=== PATIENT | female | born 1960 | race Caucasian/White ===

== ENCOUNTER → 2017-07-28 10:44 | Outpatient (CLI) | payer BC, SELFPAY ==
[2017-07-28 12:10] LABS: Absolute Lymphocyte Count 2.89 X10^3/ul (0.83-4.51); Absolute Neutrophil Count 3.8 X10^3/uL (2.0-7.7); Basophil# 0.03 X10^3/uL; Basophil% 0.4 % (0-1); Eosinophil# 0.32 X10^3/uL; Eosinophils% 3.9 % (0-5); Hematocrit 43.2 % (37-47); Hemoglobin 14.6 g/dl (12.0-15.0); Lymphocyte # 2.89 X10^3/ul (4.0); Lymphocyte % 35.4 % (19-41); Mean Corp Hgb Conc 33.8 g/gl (32-36); Mean Corpuscular Hgb 30.7 pg (27.0-32.0); Mean Corpuscular Volume 90.8 fL (81-99); Mean Platelet Vol. 10.2 fl (6.2-12.0); Monocyte# 1.11 X10^3/uL; Monocyte% 13.6 % (0-10); Neutrophil # 3.79 X10^3/uL (2.7-7.7); Neutrophil % 46.5 % (47-70); Platelet Count 281 K/mm3 (150-450); RBC Distribution Width CV 12.4 % (11.6-14.6); RBC Distribution Width SD 40.3 fl (35.1-43.9); Red Blood Count 4.76 M/mm3 (4.2-5.4); White Blood Count 8.2 K/mm3 (4.4-11.0)
[2017-07-28 12:17] LABS: POSITIVE COUNT NO; POSITIVE DIFFERENTIAL NO; POSITIVE MORPHOLOGY NO
[2017-07-28 12:18] LABS: ALB/GLOB Ratio 1.1 RATIO (0.9-2.4); AST(SGOT) 32 U/L (15-37); Alanine Aminotransfer ALT/SGPT 47 U/L (13-56); Albumin, Serum 3.8 g/dL (3.2-5.0); Alkaline Phosphatase 69 U/L (45-117); Anion Gap 7 (5-15); BUN 20 mg/dL (7-18); BUN/Creat Ratio 17.4 RATIO (10-20); Calcium,Total 8.9 mg/dL (8.5-10.1); Chloride 105 mmol/L (98-107); Creatinine, Serum 1.15 mg/dL (0.55-1.02); EST Glomerular Filtration Rate 51 mL/min (>60); Est Glom Filt Rate - Afr Amer 62 mL/min (>60); Globulin 3.4 g/dL (2.2-4.2); Glucose 112 mg/dL (74-106); Potassium 3.5 mmol/L (3.5-5.1); Protein, Total 7.2 g/dL (6.4-8.2); Sodium Level 144 mmol/L (136-145)
[2017-08-01 03:07] LABS: QNTFERON TB Ag Minus Nil Value 0.02 IU/mL (.); QNTFERON TB Ag Value 0.03 IU/mL (.); QNTFERON TB Mitogen Value > 10.00 IU/mL (.); QNTFERON TB Nil Value 0.01 IU/mL (.)
[2017-08-03 09:09] LABS: QNTIFERON TB Gold Negative (Negative)
== END ==
PROVIDERS: Family Provider Family Medicine; PCP Family Medicine; Visit Provider Internal Medicine Rheumatology
DX: M06.09 Rheumatoid arthritis without rheumatoid factor, multiple sites (principal); M79.7 Fibromyalgia; R76.8 Other specified abnormal immunological findings in serum; K21.0 Gastro-esophageal reflux disease with esophagitis; I10 Essential (primary) hypertension; E03.9 Hypothyroidism, unspecified; Z79.899 Other long term (current) drug therapy
CPT/HCPCS: 36415; 80053; 85025; 86480

== ENCOUNTER → 2017-10-02 09:24 | Outpatient (CLI) | payer BC, SELFPAY ==
--- NOTE | 2017-10-02 09:36 | MRI_ITS ---
STUDY: MRI LUMBAR SPINE WITHOUT CONTRAST REASON FOR EXAM: Female, 56 years old. low back pain radiating into legs. TECHNIQUE: Standardized fat and water weighted pulse sequences were obtained in the sagittal and axial planes. COMPARISON: April 08, 2014 FINDINGS: T12-L1: There is moderate disc space narrowing and endplate spondylosis. There is a mild disc bulge without significant central canal or foraminal stenosis. Findings are stable since the prior examination Normal lumbar lordosis. There is scoliosis. Normal conus medullaris that terminates at the L1 L1-2: There is minimal disc space narrowing and endplate spondylosis. There is no significant disc herniation, spinal canal or foramina stenosis. L2-3: There is severe disc space narrowing and endplate spondylosis. There is disc osteophyte complex asymmetric to the right with moderate right foraminal stenosis. There is no significant central canal or left foraminal stenosis. Findings are stable since prior examination L3-4: There is severe disc space narrowing and endplate spondylosis there is a disc bulge asymmetric to the left along with facet arthropathy with severe left foraminal stenosis. There is mild central canal and mild right foraminal stenosis. Findings are stable since the prior examination L4-5: There is increased mild disc space narrowing and endplate spondylosis. There is increased disc bulging and facet arthropathy asymmetric to the left with moderate left foraminal stenosis. There is no significant central canal or right foraminal stenosis. L5-S1: Normal endplates. Normal disc height, hydration and morphology. Normal bilateral facet joints. Normal central canal and bilateral lateral recesses. Normal bilateral intervertebral neural foramina. There is a left paraspinal muscular atrophy. Normal visualized paraspinous soft tissue structures. MRI/Spine Lumbar (Routine) IMPRESSION: L4/L5: Increased Moderate left foraminal stenosis. L3/L4: Severe left foraminal stenosis. L2/L3: Moderate right foraminal stenosis. Electronically Signed: Walt Espitia MD at 9:02 EDT Tel , Service support ,
--- NOTE | 2017-10-02 09:36 | MRI_ITS ---
STUDY: MRI CERVICAL SPINE WITHOUT CONTRAST REASON FOR EXAM: Female, 56 years old. PAIN IN NECK AND BILATERAL ARMS X MANY YEARS. TECHNIQUE: Standardized fat and water weighted pulse sequences were obtained in the sagittal and axial planes. COMPARISON: April 08, 2014 FINDINGS: Normal foramen magnum and brainstem-cervical cord junction. Normal craniovertebral junction. Normal anterior atlantoaxial articulation. Normal odontoid process. There is straightening of the normal cervical lordosis. C2-3: Normal endplates. Normal disc height, signal and morphology. Normal central canal and intervertebral neural foramina. C3-4: There is minimal disc space narrowing and endplate spondylosis. There is no significant disc herniation, spinal canal or foramina stenosis. C4-5: There is minimal disc space narrowing and endplate spondylosis. There is no significant disc herniation, spinal canal or foramina stenosis. C5-6: There is moderate disc space narrowing and endplate spondylosis. There is slightly decreased mild disc osteophyte complex with moderate central canal stenosis. There is uncovertebral arthropathy with stable severe right and moderate left foraminal stenosis. C6-7: There is moderate disc space narrowing and endplate spondylosis. There is a stable moderate discussed if a complex and moderate central canal stenosis. There is uncovertebral arthropathy with moderate right foraminal and severe left foraminal stenosis. C7-T1: There is minimal disc space narrowing and endplate spondylosis. There is no significant disc herniation, spinal canal or foramina stenosis. Normal cervical cord. Normal visualized soft tissue structures. MRI/Spine Cervical (Routine) IMPRESSION: Stable examination. C5/C6: Moderate central canal stenosis. Severe right foraminal stenosis. C6/C7: Moderate central canal stenosis. Severe left foraminal stenosis. Electronically Signed: Walt Espitia MD at 9:02 EDT Tel , Service support ,
== END ==
PROVIDERS: Family Provider Family Medicine; PCP Family Medicine; Visit Provider Anesthesiology Pain Medicine
DX: M54.9 Dorsalgia, unspecified (principal); M79.603 Pain in arm, unspecified
CPT/HCPCS: 72141; 72148

== ENCOUNTER → 2017-10-15 12:25 | Outpatient (CLI) | payer BC, SELFPAY ==
[2017-10-15 13:06] LABS: Absolute Lymphocyte Count 1.54 X10^3/ul (0.83-4.51); Absolute Neutrophil Count 7.9 X10^3/uL (2.0-7.7); Basophil# 0.04 X10^3/uL; Basophil% 0.4 % (0-1); Eosinophil# 0.31 X10^3/uL; Eosinophils% 2.9 % (0-5); Hematocrit 41.2 % (37-47); Lymphocyte # 1.54 X10^3/ul (4.0); Lymphocyte % 14.3 % (19-41); Mean Corpuscular Hgb 30.9 pg (27.0-32.0); Mean Corpuscular Volume 90.9 fL (81-99); Mean Platelet Vol. 9.8 fl (6.2-12.0); Monocyte# 0.93 X10^3/uL; Monocyte% 8.7 % (0-10); Neutrophil % 73.5 % (47-70); Platelet Count 274 K/mm3 (150-450); RBC Distribution Width CV 12.1 % (11.6-14.6); RBC Distribution Width SD 39.8 fl (35.1-43.9); Red Blood Count 4.53 M/mm3 (4.2-5.4); White Blood Count 10.7 K/mm3 (4.4-11.0)
[2017-10-15 13:07] LABS: POSITIVE COUNT NO; POSITIVE DIFFERENTIAL NO; POSITIVE MORPHOLOGY NO
[2017-10-15 13:20] LABS: ALB/GLOB Ratio 1.1 RATIO (0.9-2.4); AST(SGOT) 27 U/L (15-37); Alanine Aminotransfer ALT/SGPT 37 U/L (13-56); Albumin, Serum 3.5 g/dL (3.2-5.0); Alkaline Phosphatase 65 U/L (45-117); Anion Gap 10 (5-15); BUN 19 mg/dL (7-18); BUN/Creat Ratio 18.6 RATIO (10-20); Calcium,Total 8.9 mg/dL (8.5-10.1); Chloride 107 mmol/L (98-107); Creatinine, Serum 1.02 mg/dL (0.55-1.02); EST Glomerular Filtration Rate 59 mL/min (>60); Est Glom Filt Rate - Afr Amer 71 mL/min (>60); Globulin 3.3 g/dL (2.2-4.2); Glucose 85 mg/dL (74-106); Potassium 3.8 mmol/L (3.5-5.1); Protein, Total 6.8 g/dL (6.4-8.2); Sodium Level 144 mmol/L (136-145)
== END ==
PROVIDERS: Family Provider Family Medicine; PCP Family Medicine; Visit Provider Internal Medicine Rheumatology
DX: M06.09 Rheumatoid arthritis without rheumatoid factor, multiple sites (principal); M79.7 Fibromyalgia; R76.8 Other specified abnormal immunological findings in serum; K21.0 Gastro-esophageal reflux disease with esophagitis; I10 Essential (primary) hypertension; E03.9 Hypothyroidism, unspecified; Z79.899 Other long term (current) drug therapy
CPT/HCPCS: 36415; 80053; 85025

== ENCOUNTER → 2017-11-12 11:43 | Outpatient (CLI) | payer BC, SELFPAY ==
[2017-11-12 14:38] LABS: Amphetamine Urine VISTA NEGATIVE (<1000 ng/mL); Barbiturate Urine VISTA NEGATIVE (< 200 ng/mL); Benzodiazepine Urine VISTA NEGATIVE (< 200 ng/mL); Cocaine Urine VISTA NEGATIVE (< 300 ng/mL); Ecstacy Urine VISTA NEGATIVE (< 500 ng/mL); Methadone Urine VISTA NEGATIVE (< 300 ng/mL); PCP Urine VISTA NEGATIVE (< 25 ng/mL); THC Urine VISTA NEGATIVE (< 50 ng/mL); Vista UDS pH Range 6
== END ==
PROVIDERS: Family Provider Family Medicine; PCP Family Medicine; Visit Provider Anesthesiology Pain Medicine
DX: F11.20 Opioid dependence, uncomplicated (principal)
CPT/HCPCS: 80307

== ENCOUNTER → 2018-01-08 13:02 | Outpatient (CLI) | payer BC, SELFPAY ==
[2018-01-08 14:43] LABS: Absolute Lymphocyte Count 2.16 X10^3/ul (0.83-4.51); Absolute Neutrophil Count 2.9 X10^3/uL (2.0-7.7); Basophil# 0.05 X10^3/uL; Basophil% 0.8 % (0-1); Eosinophil# 0.35 X10^3/uL; Eosinophils% 5.5 % (0-5); Hematocrit 41.5 % (37-47); Hemoglobin 13.6 g/dl (12.0-15.0); Lymphocyte # 2.16 X10^3/ul (4.0); Lymphocyte % 33.9 % (19-41); Mean Corp Hgb Conc 32.8 g/gl (32-36); Mean Corpuscular Hgb 29.9 pg (27.0-32.0); Mean Corpuscular Volume 91.2 fL (81-99); Mean Platelet Vol. 11.2 fl (6.2-12.0); Monocyte# 0.87 X10^3/uL; Monocyte% 13.6 % (0-10); Neutrophil # 2.93 X10^3/uL (2.7-7.7); Neutrophil % 45.9 % (47-70); Platelet Count 257 K/mm3 (150-450); RBC Distribution Width CV 12.2 % (11.6-14.6); RBC Distribution Width SD 40.1 fl (35.1-43.9); Red Blood Count 4.55 M/mm3 (4.2-5.4); White Blood Count 6.4 K/mm3 (4.4-11.0)
[2018-01-08 14:44] LABS: POSITIVE COUNT NO; POSITIVE DIFFERENTIAL NO; POSITIVE MORPHOLOGY NO
[2018-01-08 16:31] LABS: ALB/GLOB Ratio 1.2 RATIO (0.9-2.4); AST(SGOT) 22 U/L (15-37); Alanine Aminotransfer ALT/SGPT 34 U/L (13-56); Albumin, Serum 3.5 g/dL (3.2-5.0); Alkaline Phosphatase 64 U/L (45-117); Anion Gap 8 (5-15); BUN 21 mg/dL (7-18); BUN/Creat Ratio 17.5 RATIO (10-20); Calcium,Total 8.7 mg/dL (8.5-10.1); Chloride 107 mmol/L (98-107); EST Glomerular Filtration Rate 49 mL/min (>60); Est Glom Filt Rate - Afr Amer 59 mL/min (>60); Glucose 82 mg/dL (74-106); Potassium 3.5 mmol/L (3.5-5.1); Protein, Total 6.5 g/dL (6.4-8.2); Sodium Level 144 mmol/L (136-145)
== END ==
PROVIDERS: Family Provider Family Medicine; PCP Family Medicine; Referring Provider Internal Medicine Rheumatology; Visit Provider Internal Medicine Rheumatology
DX: M06.09 Rheumatoid arthritis without rheumatoid factor, multiple sites (principal); M79.7 Fibromyalgia; R76.8 Other specified abnormal immunological findings in serum; K21.0 Gastro-esophageal reflux disease with esophagitis; I10 Essential (primary) hypertension; E03.9 Hypothyroidism, unspecified; Z79.899 Other long term (current) drug therapy
CPT/HCPCS: 36415; 80053; 85025

== ENCOUNTER → 2018-02-16 12:21 | Outpatient (CLI) | payer BC, SELFPAY ==
--- NOTE | 2018-02-16 12:23 | RAD_ITS ---
STUDY: X-RAY - LUMBOSACRAL SPINE REASON FOR EXAM: Female, 57 years old. Back pain TECHNIQUE: 6 view(s) of the lumbosacral spine were obtained. COMPARISON: None FINDINGS: Levoscoliosis of the lumbar spine. Preserved lumbar lordosis. Mild kyphosis across the thoracolumbar junction. Disc narrowing at T12-L1, L2-L3, L3-L4. Vertebral body height and alignment normal in the neutral position. Evidence of mild low lumbar facet arthropathy. Extension: No evidence of subluxation. Flexion: No evidence of subluxation. RAD/L/S Spine Comp/w Bending Views IMPRESSION: No evidence of abnormal vertebral body motion on extension and flexion views. Multilevel lumbar degenerative disease. Scoliosis. Electronically Signed: Puma Pleitez MD at 15:45 EST Tel , Service support ,
--- OUTSIDE RECORDS SUMMARY | 2018-04-04 14:34 | XMS RPT_ITS ---
:1960 Author Organization OHIP Support Name Relationship Address Phone NARINDERALLEN AMAYAASHA Unavailable [address] + [place] [address] WOOBR Unavailable [address] + [address] [place] [address] ALLEN BARCENASASHA Unavailable [address] + [place] [address] WOOBR Unavailable [address] + [address] [place] [address] NARINDER KAMI Unavailable [address] + [place] [address] WOOBR Unavailable [address] + [address] [place] [address] NARINDER, KAMI Unavailable [address] + [place] [address] WOOBR Unavailable [address] + [address] [place] [address] NARINDER, KAMI Unavailable [address] + [place] [address] WOOBR Unavailable [address] + [address] [place] [address] NARINDER, KAMI Unavailable [address] + [place] [address] WOOBR Unavailable [address] + [address] [place] [address] NARINDER, KAMI Unavailable [address] + [place] [address] WOOBR Unavailable [address] + [address] [place] [address] NARINDER KAMI Un[address] + [place] [address] WOOBR Unavailable [address] + [address] [place] [address] KAMI BARCENAS Unavailable [address] + [place] [address] WOOBR Unavailable [address] + [address] [place] [address] Care Team Providers Name Role Phone Wendy Pereyra Attending Unavailable Lynne, John Referring Unavailable Pereyra, Wendy Attending Unavailable Pereyra, Wendy Referring Unavailable Lynne, John Primary Care Unavailable Pereyra, Wendy Attending Unavailable Pereyra, Wendy Referring Unavailable Lynne, John Primary Care Unavailable Josafat Villalobos Attending Unavailable Josafat Villalobos Referring Unavailable Lynne, John Primary Care Unavailable Tarik, Brenda Attending Unavailable Tarik, Brenda Referring Unavailable Lynne, John Primary Care Unavailable Shen Cronin Attending Unavailable Basalleticia, Shen Referring Unavailable Lynne, John Primary Care Unavailable Hollandlankang, Brenda Attending Unavailable Hollandlankang, Brenda Referring Unavailable Lynne, John Primary Care Unavailable Basali, Shen Attending Unavailable Basali, Shen Referring Unavailable Lynne, John Primary Care Unavailable Tarik, Brenda Attending Unavailable Hollandlanki, Brenda Referring Unavailable Lynne, John Primary Care Unavailable PROBLEMS PROBLEMS DATE TYPE CONDITION / CODE ATTENDING STATUS SOURCE 02/16/2018 Unknown M54.5 - Low back Wendy Pereyra Active [facility] pain / Community M54.5(ICD-10) Hospital Repository 01/08/2018 Unknown M06.09 - Rheumatoid Vellanki, Brenda Active [place] arthritis without Community rheumatoid factor, Hospital multiple sites / Repository M06.09(ICD-10) 01/08/2018 Unknown Z79.899 - 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, 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 / Hospital Z79.899(ICD-10) Repository 01/08/2018 Unknown M79.7 - Vellanki, Brenda Active [facility] Fibromyalgia / Community M79.7(ICD-10) Hospital Repository 01/08/2018 Unknown R76.8 - 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, Brenda Active [facility] specified abnormal Community immunological Hospital findings in serum / Repository R76.8(ICD-10) 01/08/2018 Unknown K21.0 - Brenda Montanez Active [facility] reflux disease with Hospital esophagitis / Repository K21.0(ICD-10) 01/08/2018 Unknown I10 - Essential Brenda Montanez Active [place] (primary) Community hypertension / Hospital I10(ICD-10) Repository 01/08/2018 Unknown E03.9 - Brenda Montanez Active [place] Hypothyroidism, Community unspecified / Hospital E03.9(ICD-10) Repository 11/12/2017 Unknown F11.20 - Opioid Basali, Ayman Active [place] dependence, Community uncomplicated / Hospital F11.20(ICD-10) Repository PROCEDURES PROCEDURES No Procedure Records FoundRESULTS RESULTS HIP, UNI W/ PELVIS Observed: 03/05/2018 Status: F Source: [place] 2-3 VIEWS 12:03 PM [facility] REPOSITORY [facility] Imaging Services [address] [place] [address] HIP, UNI W/ Pelvis 2-3 Views MR#: [id number] Acct: [id number] Name: SAVANNAH MCKEON Rep #: [id number] : 1960 F 57 From: Yohannes Crystal MD PCP: John Batista MD Status: REG CLI Study: HIP, UNI W/ Pelvis 2-3 Views Date of Exam: 03/05/18 Exam# [id number] Ordering Dr: Josafat Villalobos MD STUDY: X-RAY - LEFT HIP REASON FOR EXAM: Female, 57 years old. Left hip pain. No known injury. TECHNIQUE: 2 views of the hip. COMPARISON: None. FINDINGS: Normal femoral head, neck, intertrochanteric region and visualized proximal femur. Normal acetabulum. There is mild articular joint space narrowing. Normal visualized superior and inferior pubic rami and ischial tuberosities. Surgical clips are seen in the right hemipelvis. Opaque tablets are seen in the cecum and sigmoid colon. RAD/HIP, UNI W/ Pelvis 2-3 Views IMPRESSION: Degenerative changes of the hip. Electronically Signed: Yohannes Crystal MD at 11:32 EST Tel [phone], Service support , CC: Josafat Villalobos; John Batista MD Cargo Checker: Signed ORTHOPEDIC VISIT Observed: 02/27/2018 Status: F Source: [place] REPORT 8:18 PM [facility] REPOSITORY [facility] [address] [place] [address] [address] [place] [address] OFFICE VISIT Date of Service: 02/16/18 MR#: [id number] Acct: [id number] Name: SAVANNAH MCKEON Rep #: [id number] : 1960 Provider: Wendy Pereyra MD Age/Sex: 57/F Location: [facility] Status: Signed Intake Intake Visit Reasons: LOW BACK Is patient in pain?: Yes Pain scale (1-10): 5 Allergies oxycodone Allergy (Verified 03/15/16 14:45) Rash Penicillins [PCN] Allergy (Verified 03/15/16 14:45) Unknown Tetracyclines Allergy (Verified 03/15/16 14:45) Rash Medications hydrocodone 5 mg-acetaminophen 325 mg tablet 1 tab PO Q6H 02/17/18 [History Confirmed 02/17/18] PFSH Social History Smoking Status: Never smoker HPI LOW BACK: Details: SAVANNAH MCKEON is a 57 year old RHD F here today for low back pain 50% and left lateral hip and groin pain 50% for years. She complains of bilateral great toe paresthesias. She states she has left medial calf paresthesias in the AM, but this resolves when she moves around during the day. Her groin and back pain are worse with walking, sitting, and standing. It is improved with moving and sitting in a recliner. She uses a butran's patch, vicodin as needed BID for years, and advil managed by Dr. Villalobos. She states that had been seeing Dr Cronin for years for injections and pain medication but recently switched to Dr Villalobos who is injecting her cervical spine next week for the first time. She had an L5-S1 SAMUEL in the past by Dr. Cronin, which helped her left groin pain. She had a left TFESI L4-L5, and L5-S1 that helped more. She denies bowel or bladder issues, gait instability or loss of hand dexterity. She uses a tens unit that helps. She has pain lifting her left leg. She denies hip injections in the past. 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 She denies any PT and her most recent MRI is from 09/2017. With regards to her neck, she has 40% neck pain and 60% bilateral lateral arm pain that does not go past the elbow for years. It is worse with laying flat and improved with nothing. She has had cervical SAMUEL by Dr. Cronin in 08/2017, which helped some. She had PT years ago. She denies constitutional symptoms. She has GERD, HTN and hypothyroidism. 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 She denies nicotine use. Ortho Exam Spine Neuro: Yes Straight Leg Raise (negative bilaterally), Clonus (none bilaterally), Spurling's (negative bilaterally), Buck's (negative bilaterally) and Babinski (downgoing bilaterally) General: alert, oriented x3 Skin: Yes dysraphism (none) Capillary Refill <2sec: Yes Palpable Pulses: 2+ dp/pt pulses bilaterally Gait: normal gait, other (heel and toe walk intact) Motor: strength 5/5 throughout Sensory Exam: no sensory deficits noted DTR's: Rt Triceps: 2+, Lt Triceps: 2+, Rt Biceps: 2+, Lt Biceps: 2+, Rt Brachioradialis: 2+, Lt Brachioradialis: 2+, Rt Patellar: 2+, Lt Patellar: 2+, Rt Ankle: 2+, Lt Ankle: 2+ Plantar Reflexes: Downgoing: bilateral Coordination: tandem gait normal, Romberg test normal Details: tenderness over the bilateral bicipital groove. pain with internal rotation and shoulder abduction bilaterally SPINE TESTING CERVICAL THORACIC LUMBAR Musculoskeletal General: Yes normal gait Cervical Spine: cervical muscular tenderness, pain with cervical ROM, cervical spinal tenderness Thoracic/Lumbar Spine: straight leg raise negative bilaterally, pain with thoraco-lumbar ROM (worse with lumbar extension than flexion), thoraco-lumbar ROM limited, paraspinal tenderness Sacroiliac joints: bilateral (tenderness bilaterally) Strength 0=absent - 5=normal Deltoid R (C5): 5, Deltoid L (C5): 5, R Bicep (C5-6): 5, L Bicep (C5-6): 5, R Wrist Extensor (C6): 5, L Wrist Extensor (C6): 5, R Tricep (C7): 5, L Tricep (C7): 5, R Finger Flexors (C8): 5, L Finger Flexors (C8): 5, R First Dorsal Interossei (C8): 5, L First Dorsal Interossei (C8): 5, R Hip Flexor (L1-3): 5, L Hip Flexor (L1-3): 5, R Quadriceps (L2-4): 5, L Quadriceps (L2-4): 5, R Anterior Tibialis (L4-5): 5, L Anterior Tibialis (L4- 5): 5, R Hamstrings (L5-S1): 5, L Hamstrings (L5-S1): 5, GS (S1): 5, L GS (S1): 5, R Peroneals (S1): 5, L Peroneals (S1): 5 Details: neutral sagittal balance. pain with left hip internal rotation and positive stinchfield test Assessment AND Plan Problems 1. Chronic pain of both shoulders M25.511; M25.512; G89.29 2. Chronic bilateral low back pain without sciatica M54.5; G89.29 3. Left hip pain M25.552 Plan Imaging: XR lumbar spine 02/16/2018 reveals diffuse spondylosis, degenerative scoliosis MRI L spine 10/02/2017 reveals diffuse spondylosis with left L3-4, L4-5 foraminal stenosis, ight L2-3 foraminal stenosis, no significant central stenosis MRI cervical spine 10/02/2017 reveals diffuse spondylosis with moderate stenosis C5-6, C6-7 I/R/P: 1. neck pain 2. bilateral shoulder pain 3. back pain 4. left hip pain 5. chronic opioid use Ms. Mckeon presents with neck and shoulder pain and back and left hip pain. The natural history and course of the symptomatology of back pain and neck pain was discussed in detail with the patient. I answered all questions regarding the mode of onset, pathophysiology, symptoms, imaging findings, treatment options (both non-operative and operative) regarding her diagnosis. Recommend evaluation of her bilateral shoulders and left hip by Dr. Roy. Recommend physical therapy of the neck and shoulders. Follow up in after orthopedic evaluation or sooner if issues arise. Plan of care discussed. All questions answered. The patient verbalized understanding of the disease process and agreed to the treatment plan formulated for this visit. Orders Orders: Coding Level of Care Code Off vis,new,level 4 Diagnoses Chronic pain of both shoulders M25.511; M25.512; G89.29 Chronicity: chronic Chronic bilateral low back pain without sciatica M54.5; G89.29 Back pain location: low back pain Chronicity: chronic Back pain laterality: bilateral Sciatica presence: without sciatica Left hip pain M25.552 02/27/182017 <Electronically signed by Wendy Pereyra MD> Date Wendy Pereyra MD Cosigner Signature: Date (if applicable) CC: L/S SPINE COMP/W Observed: 02/16/2018 Status: F Source: [place] BENDING VIEWS 12:23 PM [facility] REPOSITORY [facility] Imaging Services [address] [place] [address] L/S Spine Comp/w Bending Views MR#: [id number] Acct: [id number] Name: SAVANNAH CMKEON Rep #: [id number] : 1960 F 57 From: Puma Pleitez MD PCP: John Batista MD Status: REG CLI Study: L/S Spine Comp/w Bending Views Date of Exam: 02/16/18 Exam# [id number] Ordering Dr: Wendy Pereyra MD STUDY: X-RAY - LUMBOSACRAL SPINE REASON FOR EXAM: Female, 57 years old. Back pain TECHNIQUE: 6 view(s) of the lumbosacral spine were obtained. COMPARISON: None FINDINGS: Levoscoliosis of the lumbar spine. Preserved lumbar lordosis. Mild kyphosis across the thoracolumbar junction. Disc narrowing at T12-L1, L2-L3, L3-L4. Vertebral body height and alignment normal in the neutral position. Evidence of mild low lumbar facet arthropathy. Extension: No evidence of subluxation. Flexion: No evidence of subluxation. RAD/L/S Spine Comp/w Bending Views IMPRESSION: No evidence of abnormal vertebral body motion on extension and flexion views. Multilevel lumbar degenerative disease. Scoliosis. Electronically Signed: Puma Pleitez MD at 15:45 EST Tel , Service support , CC: Wendy Pereyra MD; John Batista MD Cargo Checker: Signed CBC W/DIFF, AUTOMATED Collected: 01/08/2018 Status: F Source: [place] 1:09 PM [facility] REPOSITORY TYPE CODE TESTS RESULT OUT OF RANGE REFERENCE UNITS LAB L100.1000 4.4-11.0 K/mm3 Normal WBC 6.4 LAB L100.1200 4.2-5.4 M/mm3 Normal RBC 4.55 LAB L100.1300 12.0-15.0 g/dl Normal HGB 13.6 LAB L100.1400 37-47 % Normal HCT 41.5 LAB L100.1500 81-99 fL Normal MCV 91.2 LAB L100.1600 27.0-32.0 pg Normal MCH 29.9 LAB L100.1700 32-36 g/gl Normal MCHC 32.8 LAB L100.1810 11.6-14.6 % Normal RDW CV 12.2 LAB L100.1820 35.1-43.9 fl Normal RDW SD 40.1 LAB L100.1900 150-450 K/mm3 Normal PLT 257 LAB L100.2000 6.2-12.0 fl Normal MPV 11.2 LAB L100.2100 47-70 % Low NEUT% 45.9 LAB L100.2200 19-41 % Normal LY% 33.9 LAB L100.2300 0-10 % High MONO% 13.6 LAB L100.2400 0-5 % High EO% 5.5 LAB L100.2500 0-1 % Normal BASO% 0.8 LAB L100.2550 0.0-0.9 % Normal IM GRAN % 0.300 Result Comment: IG% - Immature Granulocytes (promyelocytes, myelocytes and metamyelocytes) > 1% indicates that a LEFT SHIFT is Present. LAB L100.2620 2.0-7.7 X10 3/uL Normal Absolute Neut 2.9 LAB L100.2720 0.83-4.51 X10 3/ul Normal Absolute Lymph 2.16 Performed By: #### L100.0100 #### [facility] [address] [place], [place], [address] COMPREHENSIVE METABOLIC Collected: 01/08/2018 Status: F Source: [facility] 1:09 PM [facility] REPOSITORY TYPE CODE TESTS RESULT OUT OF RANGE REFERENCE UNITS LAB L501.0100 74-106 mg/dL Normal GLU 82 Result Comment: Please note revised GLUCOSE reference range effective 2017. LAB L501.1000 7-18 mg/dL High BUN 21 LAB L501.1100 0.55-1.02 mg/dL High CREAT,SERUM 1.20 Result Comment: The validity of the calculated GFR AND GFRAA in patients over 70 years has not been determined. Clinical correlation is essential. LAB L501.1110 >60 mL/min Low EST GFR 49 Result Comment: Non- GFR Calc LAB L501.1115 >60 mL/min Low EST GFR - AA 59 Result Comment: GFR Calc LAB L501.1300 10-20 RATIO Normal BUN/CRE 17.5 LAB L501.1500 6.4-8.2 g/dL T Normal PROT 6.5 LAB L501.1800 3.2-5.0 g/dL Normal ALB 3.5 LAB L501.1950 2.2-4.2 g/dL Normal GLOB 3.0 LAB L501.2000 0.9-2.4 RATIO Normal A/G 1.2 LAB L501.2200 8.5-10.1 mg/dL CA Normal 8.7 LAB L501.4100 15-37 U/L Normal AST 22 LAB L501.4305 45-117 U/L Normal ALK P 64 LAB L501.4405 13-56 U/L Normal ALT 34 LAB L501.4600 0.20-1.00 mg/dL T Normal BILI 0.40 LAB L501.5300 136-145 mmol/L NA Normal 144 LAB L501.5600 3.5-5.1 mmol/L K Normal 3.5 LAB L501.5900 98-107 mmol/L CL Normal 107 LAB L501.6100 21.0-32.0 mmol/L Normal CO2 29.0 LAB L501.6200 5-15 Normal GAP 8 Performed By: #### L500.4050 #### [facility] [address] [place], [address] URINE DRUG SCREEN Collected: 11/12/2017 Status: F Source: [place] ([place]) 11:46 AM [facility] REPOSITORY Order Comment: Comments: [id number] URINE DRUG SCREEN List of Drugs Taken or Suspected? UNK TYPE CODE TESTS RESULT OUT OF RANGE REFERENCE UNITS LAB L505.0075 TO BE Normal CONFIRMED Result Comment: CONFIRMATORY TESTING FOR ALL POSITIVE URINE DRUG SCREEN RESULTS WILL ONLY BE SENT OUT UPON PHYSICIAN ORDER. VISTA Urine Drug Screen methods provide only preliminary analytical test results. A more specific alternate chemical method must be used in order to obtain a confirmed analytical result. Gas chromatography/mass spectrometery (GC/MS) is the preferred confirmatory method. Clinical consideration and professional judgement should be applied to any drug of abuse test result, particularly when preliminary positive results are used. URINE TCA TESTING MUST BE ORDERED SEPARATELY. USE TEST MNEMONIC: [facility] LAB L505.5005 VISTA UDS PH 6 Normal LAB L505.5015 <1000 ng/mL AMPHETAMINES Normal NEGATIVE LAB L505.5025 < 200 ng/mL BARBITIURATES Normal NEGATIVE LAB L505.5035 < 200 ng/mL BENZODIAZIPINE Normal NEGATIVE LAB L505.5045 < 300 ng/mL COCAINE Normal NEGATIVE LAB L505.5055 < 500 ng/mL ECSTACY Normal NEGATIVE LAB L505.5065 < 300 ng/mL METHADONE Normal NEGATIVE LAB L505.5075 < 300 High ng/mL OPIATES POSITIVE LAB L505.5085 < 25 ng/mL PCP Normal NEGATIVE LAB L505.5095 < 50 ng/mL THC Normal NEGATIVE Performed By: #### L505.5000 #### [facility] [address] [facility] [address] [place], [address] MISCELLANEOUS LAB Collected: 11/12/2017 Status: F Source: [place] PROCEDURE 11:46 AM [facility] REPOSITORY Order Comment: Comments: [id number] URINE DRUG SCREEN Test(s) Ordered: [id number] URINE DRUG SCREEN TYPE CODE TESTS RESULT OUT OF RANGE REFERENCE UNITS LAB L801.1541 Normal [facility] LAB TEST Result Comment: [id number] 6+OXYCODONE-BUND (ng/mL) DRUG RESULT SCREEN CUTOFF ____ Amphetamines,Urine Negative ng/mL 1000 Amphetamine test includes Amphetamine and Methamphetamine. Barbiturates Negative ng/mL 200 Benzodiazepines Negative ng/mL 200 Cannabinoid Negative ng/mL 20 Cocaine (Metab) Negative ng/mL 300 Opiates Negative ng/mL 300 Opiates test includes Codeine, Morphine, Hydromorphone, Hydrocodone. Oxycodone/Oxymorphone,Urine Negative ng/mL 300 Test includes Oxydodone and Oxymorphone. TESTING PERFORMED AT [facility]. ORIGINAL REPORT ON FILE IN LAB CONTAINS ADDITIONAL TEST SITE INFORMATION. Performed By: #### L801.1541 #### [place] [facility] [address] [place], [address] CBC W/DIFF, AUTOMATED Collected: 10/15/2017 Status: F Source: [place] 12:32 PM [facility] REPOSITORY TYPE CODE TESTS RESULT OUT OF RANGE REFERENCE UNITS LAB L100.1000 4.4-11.0 K/mm3 Normal WBC 10.7 LAB L100.1200 4.2-5.4 M/mm3 Normal RBC 4.53 LAB L100.1300 12.0-15.0 g/dl Normal HGB 14.0 LAB L100.1400 37-47 % Normal HCT 41.2 LAB L100.1500 81-99 fL Normal MCV 90.9 LAB L100.1600 27.0-32.0 pg Normal MCH 30.9 LAB L100.1700 32-36 g/gl Normal MCHC 34.0 LAB L100.1810 11.6-14.6 % Normal RDW CV 12.1 LAB L100.1820 35.1-43.9 fl Normal RDW SD 39.8 LAB L100.1900 150-450 K/mm3 Normal PLT 274 LAB L100.2000 6.2-12.0 fl Normal MPV 9.8 LAB L100.2100 47-70 % High NEUT% 73.5 LAB L100.2200 19-41 % Low LY% 14.3 LAB L100.2300 0-10 % Normal MONO% 8.7 LAB L100.2400 0-5 % Normal EO% 2.9 LAB L100.2500 0-1 % Normal BASO% 0.4 LAB L100.2550 0.0-0.9 % Normal IM GRAN % 0.200 Result Comment: IG% - Immature Granulocytes (promyelocytes, myelocytes and metamyelocytes) > 1% indicates that a LEFT SHIFT is Present. LAB L100.2620 2.0-7.7 X10 3/uL High Absolute Neut 7.9 LAB L100.2720 0.83-4.51 X10 3/ul Normal Absolute Lymph 1.54 Performed By: #### L100.0100 #### [facility] [address] [place], [place], [address] COMPREHENSIVE METABOLIC Collected: 10/15/2017 Status: F Source: [place] 12:32 PM [facility] REPOSITORY TYPE CODE TESTS RESULT OUT OF RANGE REFERENCE UNITS LAB L501.0100 74-106 mg/dL Normal GLU 85 Result Comment: Please note revised GLUCOSE reference range effective 2017. LAB L501.1000 7-18 mg/dL High BUN 19 LAB L501.1100 0.55-1.02 mg/dL Normal CREAT,SERUM 1.02 Result Comment: The validity of the calculated GFR AND GFRAA in patients over 70 years has not been determined. Clinical correlation is essential. LAB L501.1110 >60 mL/min Low EST GFR 59 Result Comment: Non- GFR Calc LAB L501.1115 >60 mL/min Normal EST GFR - AA 71 Result Comment: GFR Calc LAB L501.1300 10-20 RATIO Normal BUN/CRE 18.6 LAB L501.1500 6.4-8.2 g/dL T Normal PROT 6.8 LAB L501.1800 3.2-5.0 g/dL Normal ALB 3.5 LAB L501.1950 2.2-4.2 g/dL Normal GLOB 3.3 LAB L501.2000 0.9-2.4 RATIO Normal A/G 1.1 LAB L501.2200 8.5-10.1 mg/dL CA Normal 8.9 LAB L501.4100 15-37 U/L Normal AST 27 LAB L501.4305 45-117 U/L Normal ALK P 65 LAB L501.4405 13-56 U/L Normal ALT 37 LAB L501.4600 0.20-1.00 mg/dL T Normal BILI 0.50 LAB L501.5300 136-145 mmol/L NA Normal 144 LAB L501.5600 3.5-5.1 mmol/L K Normal 3.8 LAB L501.5900 98-107 mmol/L CL Normal 107 LAB L501.6100 21.0-32.0 mmol/L Normal CO2 27.0 LAB L501.6200 5-15 Normal GAP 10 Performed By: #### L500.4050 #### [facility] [address] [place], [place], [id number] SPINE LUMBAR Observed: 10/02/2017 Status: F Source: [place] (ROUTINE) 9:36 AM [facility] REPOSITORY [facility] Imaging Services [address] [place] [address] Spine Lumbar (Routine) MR#: [id number] Acct: [id number] Name: SAVANNAH MCKEON Janneth Rep #: [id number] : 1960 F 56 From: Walt Espitia PCP: John Batista MD Status: REG CLI Study: Spine Lumbar (Routine) Date of Exam: 10/02/17 Exam# [id number] Ordering Dr: Shen Cronin MD STUDY: MRI LUMBAR SPINE WITHOUT CONTRAST REASON FOR EXAM: Female, 56 years old. low back pain radiating into legs. TECHNIQUE: Standardized fat and water weighted pulse sequences were obtained in the sagittal and axial planes. COMPARISON: April 08, 2014 FINDINGS: T12-L1: There is moderate disc space narrowing and endplate spondylosis. There is a mild disc bulge without significant central canal or foraminal stenosis. Findings are stable since the prior examination Normal lumbar lordosis. There is scoliosis. Normal conus medullaris that terminates at the L1 L1-2: There is minimal disc space narrowing and endplate spondylosis. There is no significant disc herniation, spinal canal or foramina stenosis. L2-3: There is severe disc space narrowing and endplate spondylosis. There is disc osteophyte complex asymmetric to the right with moderate right foraminal stenosis. There is no significant central canal or left foraminal stenosis. Findings are stable since prior examination L3-4: There is severe disc space narrowing and endplate spondylosis there is a disc bulge asymmetric to the left along with facet arthropathy with severe left foraminal stenosis. There is mild central canal and mild right foraminal stenosis. Findings are stable since the prior examination L4-5: There is increased mild disc space narrowing and endplate spondylosis. There is increased disc bulging and facet arthropathy asymmetric to the left with moderate left foraminal stenosis. There is no significant central canal or right foraminal stenosis. L5-S1: Normal endplates. Normal disc height, hydration and morphology. Normal bilateral facet joints. Normal central canal and bilateral lateral recesses. Normal bilateral intervertebral neural foramina. There is a left paraspinal muscular atrophy. Normal visualized paraspinous soft tissue structures. MRI/Spine Lumbar (Routine) IMPRESSION: L4/L5: Increased Moderate left foraminal stenosis. L3/L4: Severe left foraminal stenosis. L2/L3: Moderate right foraminal stenosis. Electronically Signed: Walt Espitia MD at 9:02 EDT Tel , Service support , CC: Shen Cronin MD; John Batista MD Cargo Checker: Signed SPINE CERVICAL Observed: 10/02/2017 Status: F Source: [place] (ROUTINE) 9:36 AM [facility] REPOSITORY [facility] Imaging Services [address] [place] [address] Spine Cervical (Routine) MR#: [id number] Acct: [id number] Name: SAVANNAH MCKEON Rep #: [id number] : 1960 F 56 From: Walt Espitia PCP: John Batista MD Status: REG CLI Study: Spine Cervical (Routine) Date of Exam: 10/02/17 Exam# [id number] Ordering Dr: Shen Cronin MD STUDY: MRI CERVICAL SPINE WITHOUT CONTRAST REASON FOR EXAM: Female, 56 years old. PAIN IN NECK AND BILATERAL ARMS X MANY YEARS. TECHNIQUE: Standardized fat and water weighted pulse sequences were obtained in the sagittal and axial planes. COMPARISON: April 08, 2014 FINDINGS: Normal foramen magnum and brainstem-cervical cord junction. Normal craniovertebral junction. Normal anterior atlantoaxial articulation. Normal odontoid process. There is straightening of the normal cervical lordosis. C2-3: Normal endplates. Normal disc height, signal and morphology. Normal central canal and intervertebral neural foramina. C3-4: There is minimal disc space narrowing and endplate spondylosis. There is no significant disc herniation, spinal canal or foramina stenosis. C4-5: There is minimal disc space narrowing and endplate spondylosis. There is no significant disc herniation, spinal canal or foramina stenosis. C5-6: There is moderate disc space narrowing and endplate spondylosis. There is slightly decreased mild disc osteophyte complex with moderate central canal stenosis. There is uncovertebral arthropathy with stable severe right and moderate left foraminal stenosis. C6-7: There is moderate disc space narrowing and endplate spondylosis. There is a stable moderate discussed if a complex and moderate central canal stenosis. There is uncovertebral arthropathy with moderate right foraminal and severe left foraminal stenosis. C7-T1: There is minimal disc space narrowing and endplate spondylosis. There is no significant disc herniation, spinal canal or foramina stenosis. Normal cervical cord. Normal visualized soft tissue structures. MRI/Spine Cervical (Routine) IMPRESSION: Stable examination. C5/C6: Moderate central canal stenosis. Severe right foraminal stenosis. C6/C7: Moderate central canal stenosis. Severe left foraminal stenosis. Electronically Signed: Walt Espitia MD at 9:02 EDT Tel , Service support , CC: Shen Cronin MD; John Batista MD Cargo Checker: Signed QUANTIFERON TB-GOLD Collected: 07/28/2017 Status: F Source: [place] 11:46 AM [facility] REPOSITORY TYPE CODE TESTS RESULT OUT OF RANGE REFERENCE UNITS LAB L3400.7025 Negative Normal QFT Negative TB GOLD Result Comment: The specimen received for QuantiFERON testing was incubated by the ordering institution. Specific procedures outlined in our Directory of Services and in the package insert for the QuantiFERON Gold (In Tube) test must be followed to enable for proper stimulation of cells for the production of interferon gamma. LAB L3400.7035 . Normal QFT TB Comment POS CRIT Result Comment: To be considered positive a specimen should have a TB Ag minus Nil value greater than or equal to 0.35 IU/mL and in addition the TB Ag minus Nil value must be greater than or equal to 25% of the Nil value. There may be insufficient information in these values to differentiate between some negative and some indeterminate test values. LAB L3400.7045 . IU/mL Normal QFT TB AB 0.03 VALUE LAB L3400.7055 . IU/mL Normal QFT NIL VALUE 0.01 LAB L3400.7065 . IU/mL > Normal QFT MITOGEN 10.00 KEITH LAB L3400.7075 . IU/mL Normal QFT AG - NIL 0.02 LAB L3400.7085 . Normal QFT TB INTER Comment Result Comment: The QuantiFERON TB Gold (in Tube) assay is intended for use as an aid in the diagnosis of TB infection. Negative results suggest that there is no TB infection. In patients with high suspicion of exposure, a negative test should be repeated. A positive test indicates infection with Mycobacterium tuberculosis. Among individuals without tuberculosis infection, a positive test may be due to exposure to M. kansasii, M. szulgai or M. marinum. On the Internet, go to cdc.gov/tb for further details. Performed at: [facility] [address] [id number] [employer] Machine Operator: Chilo Lloyd PhD, Phone: [phone] Performed By: #### L3400.7000 #### [facility] (refer to report for specific site) refer to report for address and phone number CBC W/DIFF, AUTOMATED Collected: 07/28/2017 Status: F Source: [place] 10:50 AM [facility] REPOSITORY TYPE CODE TESTS RESULT OUT OF RANGE REFERENCE UNITS LAB L100.1000 4.4-11.0 K/mm3 Normal WBC 8.2 LAB L100.1200 4.2-5.4 M/mm3 Normal RBC 4.76 LAB L100.1300 12.0-15.0 g/dl Normal HGB 14.6 LAB L100.1400 37-47 % Normal HCT 43.2 LAB L100.1500 81-99 fL Normal MCV 90.8 LAB L100.1600 27.0-32.0 pg Normal MCH 30.7 LAB L100.1700 32-36 g/gl Normal MCHC 33.8 LAB L100.1810 11.6-14.6 % Normal RDW CV 12.4 LAB L100.1820 35.1-43.9 fl Normal RDW SD 40.3 LAB L100.1900 150-450 K/mm3 Normal PLT 281 LAB L100.2000 6.2-12.0 fl Normal MPV 10.2 LAB L100.2100 47-70 % Low NEUT% 46.5 LAB L100.2200 19-41 % Normal LY% 35.4 LAB L100.2300 0-10 % High MONO% 13.6 LAB L100.2400 0-5 % Normal EO% 3.9 LAB L100.2500 0-1 % Normal BASO% 0.4 LAB L100.2550 0.0-0.9 % Normal IM GRAN % 0.200 Result Comment: IG% - Immature Granulocytes (promyelocytes, myelocytes and metamyelocytes) > 1% indicates that a LEFT SHIFT is Present. LAB L100.2620 2.0-7.7 X10 3/uL Normal Absolute Neut 3.8 LAB L100.2720 0.83-4.51 X10 3/ul Normal Absolute Lymph 2.89 Performed By: #### L100.0100 #### [facility] [address] [place], [address] COMPREHENSIVE METABOLIC Collected: 07/28/2017 Status: F Source: [facility] 10:50 AM [facility] REPOSITORY TYPE CODE TESTS RESULT OUT OF RANGE REFERENCE UNITS LAB L501.0100 74-106 mg/dL High GLU 112 Result Comment: Fasting Glucose result from 100 to 125 mg/dL suggests IMPAIRED HOMEOSTASIS per A.D.A. criteria. Please note revised GLUCOSE reference range effective 2017. LAB L501.1000 7-18 mg/dL High BUN 20 LAB L501.1100 0.55-1.02 mg/dL High CREAT,SERUM 1.15 Result Comment: The validity of the calculated GFR AND GFRAA in patients over 70 years has not been determined. Clinical correlation is essential. LAB L501.1110 >60 mL/min Low EST GFR 51 Result Comment: Non- GFR Calc LAB L501.1115 >60 mL/min Normal EST GFR - AA 62 Result Comment: GFR Calc LAB L501.1300 10-20 RATIO Normal BUN/CRE 17.4 LAB L501.1500 6.4-8.2 g/dL T Normal PROT 7.2 LAB L501.1800 3.2-5.0 g/dL Normal ALB 3.8 LAB L501.1950 2.2-4.2 g/dL Normal GLOB 3.4 LAB L501.2000 0.9-2.4 RATIO Normal A/G 1.1 LAB L501.2200 8.5-10.1 mg/dL CA Normal 8.9 LAB L501.4100 15-37 U/L Normal AST 32 LAB L501.4305 45-117 U/L Normal ALK P 69 LAB L501.4405 13-56 U/L Normal ALT 47 LAB L501.4600 0.20-1.00 mg/dL T Normal BILI 0.80 LAB L501.5300 136-145 mmol/L NA Normal 144 LAB L501.5600 3.5-5.1 mmol/L K Normal 3.5 LAB L501.5900 98-107 mmol/L CL Normal 105 LAB L501.6100 21.0-32.0 mmol/L Normal CO2 32.0 LAB L501.6200 5-15 Normal GAP 7 Performed By: #### L500.4050 #### [facility] [address] [place], [address] ALLERGIES ALLERGIES DATE TYPE / CODE NAME / CODE REACTION SEVERITY SOURCE 03/15/2016 Drug Penicillins/ Unknown Unknown [facility] Allergy/4160 [id number](R [facility](SNOMED XNORM) Repository CT) 03/15/2016 Drug Tetracycline Rash Unknown [facility] Allergy/4160 s/[id number] [facility](SNOMED (RXNORM) Repository CT) 03/15/2016 Drug oxycodone/F0 Rash Unknown [facility] Allergy/4160 [id number]([place] [address](SNOMED ORM) Repository CT) ENCOUNTERS ENCOUNTERS ADMIT/DISCHARGE ACCOUNT ADMITTING ENCOUNTER LOCATION SOURCE NUMBER CLASS 03/05/2018 [id number] Ambulatory [facility] [place] 5 [facility] ing:RAD Repository 02/23/2018 [id number] Ambulatory [place] 5 [facility] ing:PT Repository 02/16/2018 [id number] Ambulatory [place]ela 3 [facility] ing:HPRAD Repository 02/16/2018/ [id number] Ambulatory BMSBuilding:B [facility] 8 7 [facility] [place] Repository 01/08/2018 [id number] Ambulatory [place] Ariela 9 [facility] ing:MTLAB Repository 11/12/2017 [id number] Ambulatory [place] 4 [facility] ing:LAB Repository 10/15/2017 [id number] Ambulatory [place] 5 [facility] ing:MTLAB Repository 10/02/2017 [id number] Ambulatory [place] Ariela 2 [facility] ing:MRI Repository 07/28/2017 [id number] Ambulatory [place] 4 [facility] ing:MTLAB Repository PAYERS PAYERS ENCOUNTER GUARANTOR PAYER SUBSCRIBER SOURCE 03/05/2018 SAVANNAH T Primary SAVANNAH [place] [id number] Insurance:ANTHEMPolic GARGALADOB: [facility] y Number: [id number] [id number] Repository [address]Wql: (330) Date:6435-74-85GC [phone] () [id number] LEA [address]RW: 03/05/2018 Secondary NOT GIVENUNK [place] Insurance:SELF PAY [facility] Number: Effective Repository Date:2018-03-05 02/23/2018 SAVANNAH T Primary SAVANNAH [place] [id number] Insurance:ANTHEMPolic GARGALADOB: [facility] y Number: [id number], [place] [id number] Repository [address]Bvc: (330) Date:2445-42-55VK [phone] () [id number], [place] [address]RN: 02/23/2018 Secondary NOT GIVENUNK [place] Insurance:SELF PAY [facility] Number: Effective Repository Date:2018-02-16 02/16/2018 SAVANNAH T Primary SAVANNAH [place] [id number] Insurance:ANTHEMPolic GARGALADOB: [facility] y Number: [id number], [place] [id number] Repository [address]Gud: (330) Date:4987-92-42RS [phone] () [id number], [place] [address]CM: 02/16/2018 Secondary NOT GIVENUNK [place] Insurance:SELF PAY [facility] Number: Effective Repository Date:2018-02-16 02/16/2018 SAVANNAH T Primary SAVANNAH [place] [id number] Insurance:ANTHEMPolic GARGALADOB: [facility] [place] y Number: [id number], [place] [id number] Repository [address]Ajy: (330) Date:4235-40-90UF [phone] () [id number], [place] [address]BQ: 02/16/2018 Secondary NOT GIVENUNK [place] Insurance:SELF PAY [facility] Number: Effective Repository Date:2018-02-16 01/08/2018 SAVANNAH T Primary SAVANNAH [place] [id number] Insurance:ANTHEMPolic GARGALADOB: [facility] [place] y Number: [id number], [place] [id number] Repository [address]Rkd: (330) Date:9948-54-88JK [phone] () [id number], [place] [address]RE: 01/08/2018 Secondary NOT GIVENUNK [place] Insurance:SELF PAY [facility] Number: Effective Repository Date:2018-01-08 11/12/2017 SAVANNAH T Primary SAVANNAH [place] [id number] Insurance:ANTHEMPolic GARGALADOB: [facility] [place] y Number: [id number], [place] [id number] Repository [address]Ogi: (330) Date:9158-28-67ZH [phone] () [id number], [place] [address]OP: 11/12/2017 Secondary NOT GIVENUNK [place] Insurance:SELF PAY [facility] Number: Effective Repository Date:2017-11-12 10/15/2017 SAVANNAH T Primary SAVANNAH [place] [id number] Insurance:ANTHEMPolic GARGALADOB: [facility] [place] y Number: [id number], [place] [id number] Repository [address]Xak: (330) Date:5664-49-92JJ [phone] () [id number] LEA [address]MV: 10/15/2017 Secondary NOT GIVENUNK [place] Insurance:SELF PAY [facility] Number: Effective Repository Date:2017-10-15 10/02/2017 SAVANNAH T Primary SAVANNAH [place] [id number] Insurance:ANTHEMPolic GARGALADOB: [facility] [place] y Number: [id number], [place] [id number] Repository [address]Ulm: (330) Date:3598-38-83XM [phone] () [id number] LEA [address]LF: 10/02/2017 Secondary NOT GIVENUNK [place] Insurance:SELF PAY [facility] Number: Effective Repository Date:2017-09-25 07/28/2017 SAVANNAH T Primary SAVANNAH [place] [id number] Insurance:ANTHEMPolic GARGALADOB: [facility] [place] y Number: [id number], [place] [id number] Repository [address]Kol: (330) Date:3620-37-00CM [phone] () [id number] LEA [address]MU: 07/28/2017 Secondary NOT GIVENUNK [place] Insurance:SELF PAY [facility] Number: Effective Repository Date:2017-07-28
== END ==
PROVIDERS: Family Provider Family Medicine; PCP Family Medicine; Referring Provider Orthopaedic Surgery; Visit Provider Orthopaedic Surgery
DX: M54.5 Low back pain (principal)
CPT/HCPCS: 72114

== ENCOUNTER → 2018-03-05 11:59 | Outpatient (CLI) | payer BC, SELFPAY ==
--- NOTE | 2018-03-05 12:03 | RAD_ITS ---
STUDY: X-RAY - LEFT HIP REASON FOR EXAM: Female, 57 years old. Left hip pain. No known injury. TECHNIQUE: 2 views of the hip. COMPARISON: None. FINDINGS: Normal femoral head, neck, intertrochanteric region and visualized proximal femur. Normal acetabulum. There is mild articular joint space narrowing. Normal visualized superior and inferior pubic rami and ischial tuberosities. Surgical clips are seen in the right hemipelvis. Opaque tablets are seen in the cecum and sigmoid colon. RAD/HIP, UNI W/ Pelvis 2-3 Views IMPRESSION: Degenerative changes of the hip. Electronically Signed: Yohannes Crystal MD at 11:32 EST Tel [phone], Service support ,
== END ==
PROVIDERS: Family Provider Family Medicine; PCP Family Medicine; Referring Provider Anesthesiology Pain Medicine; Visit Provider Anesthesiology Pain Medicine
DX: M25.552 Pain in left hip (principal)
CPT/HCPCS: 73502

== ENCOUNTER → 2018-04-12 11:31 | Outpatient (CLI) | payer BC, SELFPAY ==
[2018-04-12 13:49] LABS: Absolute Lymphocyte Count 1.56 X10^3/ul (0.83-4.51); Absolute Neutrophil Count 5.2 X10^3/uL (2.0-7.7); Basophil# 0.06 X10^3/uL; Basophil% 0.7 % (0-1); Hematocrit 44.2 % (37-47); Hemoglobin 14.8 g/dl (12.0-15.0); Lymphocyte # 1.56 X10^3/ul (4.0); Lymphocyte % 18.2 % (19-41); Mean Corp Hgb Conc 33.5 g/gl (32-36); Mean Corpuscular Hgb 30.5 pg (27.0-32.0); Mean Corpuscular Volume 91.1 fL (81-99); Mean Platelet Vol. 10.6 fl (6.2-12.0); Monocyte# 1.07 X10^3/uL; Monocyte% 12.5 % (0-10); Neutrophil # 5.24 X10^3/uL (2.7-7.7); Neutrophil % 61.2 % (47-70); Platelet Count 262 K/mm3 (150-450); RBC Distribution Width CV 13.4 % (11.6-14.6); RBC Distribution Width SD 44.1 fl (35.1-43.9); Red Blood Count 4.85 M/mm3 (4.2-5.4); White Blood Count 8.6 K/mm3 (4.4-11.0)
[2018-04-12 13:53] LABS: POSITIVE COUNT NO; POSITIVE DIFFERENTIAL NO; POSITIVE MORPHOLOGY NO
[2018-04-12 14:07] LABS: ALB/GLOB Ratio 1.2 RATIO (0.9-2.4); AST(SGOT) 19 U/L (15-37); Alanine Aminotransfer ALT/SGPT 40 U/L (13-56); Albumin, Serum 3.8 g/dL (3.2-5.0); Alkaline Phosphatase 63 U/L (45-117); Anion Gap 11 (5-15); BUN 21 mg/dL (7-18); BUN/Creat Ratio 18.4 RATIO (10-20); Calcium,Total 9.1 mg/dL (8.5-10.1); Chloride 105 mmol/L (98-107); Creatinine, Serum 1.14 mg/dL (0.55-1.02); EST Glomerular Filtration Rate 52 mL/min (>60); Est Glom Filt Rate - Afr Amer 63 mL/min (>60); Globulin 3.1 g/dL (2.2-4.2); Glucose 109 mg/dL (74-106); Potassium 3.6 mmol/L (3.5-5.1); Protein, Total 6.9 g/dL (6.4-8.2); Sodium Level 146 mmol/L (136-145); T4 Free Direct 1.44 ng/dL (0.76-1.46); Thyroid Stim Hormone (TSH) 0.69 uIU/mL (0.358-3.74)
== END ==
PROVIDERS: Family Provider Family Medicine; PCP Family Medicine; Referring Provider Family Medicine; Visit Provider Family Medicine
DX: E03.9 Hypothyroidism, unspecified (principal); G47.00 Insomnia, unspecified; M06.09 Rheumatoid arthritis without rheumatoid factor, multiple sites; M79.7 Fibromyalgia; R76.8 Other specified abnormal immunological findings in serum; K21.0 Gastro-esophageal reflux disease with esophagitis; I10 Essential (primary) hypertension; Z79.899 Other long term (current) drug therapy
CPT/HCPCS: 36415; 80053; 84439; 84443; 85025

== ENCOUNTER 2018-09-05 14:43 | Emergency (ER) | payer BC, SELFPAY ==
[2018-09-05 14:44] VITALS: BP 160/79; PULSE 69; RESP 24; TEMP 36.1; O2SAT 100; BMI 29.9
[2018-09-05] MEDS: Morphine 4 MG/ML Syringe IV (14:57)
[2018-09-05] MEDS: 0.9% Normal Saline 1,000 ML 1000 ML IV (14:57)
--- NOTE | 2018-09-05 14:58 | ED.VIS.GEN ---
History of Present Illness Chief Complaint: Abd Pain Informant: Patient Onset: Today Narrative: Patient presents to the ED with sudden onset of upper abdominal pain which she localizes to the left upper quadrant that started this morning. She states it is gradually getting worse. She does report some associated nausea and vomiting. She has had several episodes of emesis today. She did take 8 mg of zofran prior to arrival and states this did alleviate her nausea. She states this does feel similar to an episode of pancreatitis she had years ago. She states she did have one alcoholic beverage yesterday, denies any excessive alcohol use recently. She denies any fever, chills, changes in bowel movements, or urinary symptoms. She has no history of diabetes. Past Medical History - Allergies and Home Meds Allergies/Adverse Reactions: Allergies oxycodone Allergy (Verified 09/05/18 14:44) Rash Penicillins [PCN] Allergy (Verified 09/05/18 14:44) Unknown Tetracyclines Allergy (Verified 09/05/18 14:44) Rash Primary Care Physician: John Batista MD [Primary Care Provider] - Smoking Status: Never smoker Review of Systems General: Denies: Chills, Fever, Sweats Eyes: Denies: Visual changes - bilaterally, Diplopia ENT: Denies: Rhinorrhea, Sore throat Cardiovascular: Denies: Chest pain, Palpitations Respiratory: Denies: Dyspnea, Cough, Dyspnea on exertion Gastrointestinal: Reports: Abdominal pain - LUQ, Nausea, Vomiting. Denies: Diarrhea, Melena, Hematochezia Genitourinary: Denies: Dysuria, Hematuria, Frequency Musculoskeletal: Denies: Back pain, Extremity Pain Skin: Denies: Rash, Wounds Neurological: Denies: Headache, Weakness, Numbness Physical Exam Vital Signs/Narrative: Vital Signs Temp Pulse Resp BP Pulse Ox 09/05/18 14:44 96.9 F L 69 24 H 160/79 H 100 General: Well nourished, Well developed, - - Patient does appear to be in pain Head: Normocephalic, Atraumatic Eyes: Perrl, EOMI ENT: Moist mucous membranes, No rhinorrhea Neck: Supple, Nontender Cardiovascular: Regular rate, Regular rhythm, No murmurs Respiratory: No distress, CTA bilaterally, Chest nontender Abdomen: Soft, Nondistended, Normal bowel sounds, Tender - LUQ, Guarding Back: Nontender, Normal Inspection Extremities: Nontender, No edema Skin: Normal color, No rash Neurological: Alert, Oriented x3, Cranial nerves II-XII grossly intact, Normal Strength, Normal Sensation Psychological: Normal affect, Normal Mood Diagnostic/Tx/Re-eval - Medical Decision Making Patient presents to the ED with left upper quadrant abdominal pain that started this morning. She does report associated nausea and vomiting. Vital signs stable. Patient did have left upper quadrant abdominal tenderness to palpation with no rigidity or rebound, however did have some voluntary guarding due to pain. She was given IV fluids and morphine here for symptomatic relief. She did take Zofran p.o. prior to arrival. She does have a history of pancreatitis. On reevaluation of the patient, she does report improvement of symptoms. CBC, CMP, and lipase are unremarkable. At this time, I think it is safe for the patient be discharged home. She was educated on signs/symptoms to return to the ED. She was instructed to follow-up with her PCP. She does have prescriptions for [place] and Zofran at home which she can take in conjunction with [id number] analgesics and omeprazole. She was advised to refrain from using NSAIDs. She was provided discharge instructions. She is agreeable to plan. Disposition: Home stable Impression: Left upper quadrant abdominal pain. Nausea and vomiting. ED Disposition - Plan for ED Patient: Disposition: Home or Assisted Living Diagnosis: Abdominal pain, Nausea and vomiting Instructions: ABDOMINAL PAIN, Unknown Cause, (Female) Referrals: John Batista MD [Primary Care Provider] -
[2018-09-05 15:16] LABS: Absolute Lymphocyte Count 1.98 X10^3/ul (0.83-4.51); Absolute Neutrophil Count 2.8 X10^3/uL (2.0-7.7); Basophil# 0.02 X10^3/uL; Basophil% 0.4 % (0-1); Eosinophil# 0.11 X10^3/uL; Hematocrit 46.2 % (37-47); Lymphocyte # 1.98 X10^3/ul (4.0); Lymphocyte % 35.2 % (19-41); Mean Corp Hgb Conc 34.6 g/gl (32-36); Mean Corpuscular Hgb 31.1 pg (27.0-32.0); Mean Corpuscular Volume 89.7 fL (81-99); Mean Platelet Vol. 9.6 fl (6.2-12.0); Monocyte# 0.74 X10^3/uL; Monocyte% 13.1 % (0-10); Neutrophil # 2.77 X10^3/uL (2.7-7.7); Neutrophil % 49.1 % (47-70); Platelet Count 259 K/mm3 (150-450); RBC Distribution Width CV 12.1 % (11.6-14.6); RBC Distribution Width SD 39.2 fl (35.1-43.9); Red Blood Count 5.15 M/mm3 (4.2-5.4); White Blood Count 5.6 K/mm3 (4.4-11.0)
[2018-09-05 15:25] LABS: POSITIVE COUNT NO; POSITIVE DIFFERENTIAL NO; POSITIVE MORPHOLOGY NO
[2018-09-05 15:26] LABS: ALB/GLOB Ratio 1.4 RATIO (0.9-2.4); AST(SGOT) 24 U/L (15-37); Alanine Aminotransfer ALT/SGPT 37 U/L (13-56); Albumin, Serum 4.2 g/dL (3.2-5.0); Alkaline Phosphatase 74 U/L (45-117); Anion Gap 7 (5-15); BUN 22 mg/dL (7-18); BUN/Creat Ratio 20.2 RATIO (10-20); Calcium,Total 9.3 mg/dL (8.5-10.1); Chloride 110 mmol/L (98-107); Creatinine, Serum 1.09 mg/dL (0.55-1.02); EST Glomerular Filtration Rate 54 mL/min (>60); Est Glom Filt Rate - Afr Amer 66 mL/min (>60); Estimated Creatinine Clearance 50.01 ml/min; Glucose 144 mg/dL (74-106); Lipase 218 U/L (73-393); Potassium 3.4 mmol/L (3.5-5.1); Protein, Total 7.2 g/dL (6.4-8.2); Sodium Level 144 mmol/L (136-145)
[2018-09-05 16:19] VITALS: BP 177/71; PULSE 87; RESP 16; O2SAT 98
== END 2018-09-05 16:21 | disposition home or self-care (01) ==
PROVIDERS: Emergency Provider Physician Assistant; Family Provider Family Medicine; PCP Family Medicine
DX: R10.12 Left upper quadrant pain (principal); R11.2 Nausea with vomiting, unspecified
CPT/HCPCS: 80053; 83690; 85025; 96361; 96374; 99283; J7030; A4216; J2405

== ENCOUNTER → 2018-10-06 | Outpatient (CLI) | payer BC, SELFPAY ==
[2018-10-06 14:56] LABS: Absolute Lymphocyte Count 1.79 X10^3/uL (0.83-4.51); Absolute Neutrophil Count 1.2 X10^3/uL (2.0-7.7); Basophil# 0.03 X10^3/uL; Basophil% 0.7 % (0-1); Eosinophil# 0.25 X10^3/uL; Eosinophils% 6.1 % (0-5); Hematocrit 42.6 % (37-47); Hemoglobin 14.3 g/dL (12.0-15.0); Lymphocyte # 1.79 X10^3/ul (4.0); Lymphocyte % 43.4 % (19-41); Mean Corp Hgb Conc 33.6 g/dL (32-36); Mean Corpuscular Hgb 30.7 pg (27.0-32.0); Mean Corpuscular Volume 91.4 fL (81-99); Mean Platelet Vol. 9.8 fl (6.2-12.0); Monocyte% 19.4 % (0-10); NRBC Flagged by Analyzer 0 % (0-5); Neutrophil # 1.24 X10^3/uL (2.7-7.7); Neutrophil % 30.2 % (47-70); Platelet Count 248 K/mm3 (150-450); RBC Distribution Width CV 11.8 % (11.6-14.6); RBC Distribution Width SD 39.5 fl (35.1-43.9); Red Blood Count 4.66 M/mm3 (4.2-5.4); White Blood Count 4.1 K/mm3 (4.4-11.0)
[2018-10-06 15:13] LABS: ALB/GLOB Ratio 1.5 RATIO (0.9-2.4); AST(SGOT) 23 U/L (15-37); Alanine Aminotransfer ALT/SGPT 37 U/L (13-56); Albumin, Serum 3.8 g/dL (3.2-5.0); Alkaline Phosphatase 69 U/L (45-117); Anion Gap 6 (5-15); BUN 25 mg/dL (7-18); BUN/Creat Ratio 22.5 RATIO (10-20); Calcium,Total 9.2 mg/dL (8.5-10.1); Chloride 109 mmol/L (98-107); Creatinine, Serum 1.11 mg/dL (0.55-1.02); EST Glomerular Filtration Rate 53 mL/min (>60); Est Glom Filt Rate - Afr Amer 65 mL/min (>60); Globulin 2.5 g/dL (2.2-4.2); Glucose 79 mg/dL (74-106); Potassium 3.7 mmol/L (3.5-5.1); Protein, Total 6.3 g/dL (6.4-8.2); Sodium Level 146 mmol/L (136-145)
== END | disposition home or self-care (01) ==
LOC: MTLAB 12:45
PROVIDERS: Family Provider Family Medicine; PCP Family Medicine; Referring Provider Internal Medicine Rheumatology; Visit Provider Internal Medicine Rheumatology
DX: M06.09 Rheumatoid arthritis without rheumatoid factor, multiple sites (principal); M79.7 Fibromyalgia; R76.8 Other specified abnormal immunological findings in serum; K21.0 Gastro-esophageal reflux disease with esophagitis; I10 Essential (primary) hypertension; E03.9 Hypothyroidism, unspecified; Z79.899 Other long term (current) drug therapy
CPT/HCPCS: 36415; 80053; 85025

== ENCOUNTER → 2018-12-28 | Outpatient (CLI) | payer BC, SELFPAY ==
[2018-12-28 12:49] LABS: Absolute Lymphocyte Count 1.21 X10^3/uL (0.83-4.51); Absolute Neutrophil Count 6.7 X10^3/uL (2.0-7.7); Basophil# 0.04 X10^3/uL; Basophil% 0.4 % (0-1); Eosinophil# 0.35 X10^3/uL; Eosinophils% 3.8 % (0-5); Hematocrit 40.8 % (37-47); Hemoglobin 13.6 g/dL (12.0-15.0); Lymphocyte # 1.21 X10^3/ul (4.0); Lymphocyte % 13.1 % (19-41); Mean Corp Hgb Conc 33.3 g/dL (32-36); Mean Corpuscular Hgb 30.5 pg (27.0-32.0); Mean Corpuscular Volume 91.5 fL (81-99); Mean Platelet Vol. 9.9 fl (6.2-12.0); Monocyte# 0.89 X10^3/uL; Monocyte% 9.6 % (0-10); NRBC Flagged by Analyzer 0 % (0-5); Neutrophil # 6.72 X10^3/uL (2.7-7.7); Neutrophil % 72.9 % (47-70); Platelet Count 233 K/mm3 (150-450); RBC Distribution Width CV 11.8 % (11.6-14.6); RBC Distribution Width SD 39.7 fl (35.1-43.9); Red Blood Count 4.46 M/mm3 (4.2-5.4); White Blood Count 9.2 K/mm3 (4.4-11.0)
[2018-12-28 15:55] LABS: ALB/GLOB Ratio 1.4 RATIO (0.9-2.4); AST(SGOT) 23 U/L (15-37); Alanine Aminotransfer ALT/SGPT 39 U/L (13-56); Albumin, Serum 3.7 g/dL (3.2-5.0); Alkaline Phosphatase 58 U/L (45-117); Anion Gap 4 (5-15); BUN 29 mg/dL (7-18); BUN/Creat Ratio 26.9 RATIO (10-20); Calcium,Total 8.9 mg/dL (8.5-10.1); Chloride 106 mmol/L (98-107); Creatinine, Serum 1.08 mg/dL (0.55-1.02); EST Glomerular Filtration Rate 55 mL/min (>60); Est Glom Filt Rate - Afr Amer 67 mL/min (>60); Globulin 2.6 g/dL (2.2-4.2); Glucose 89 mg/dL (74-106); Potassium 3.6 mmol/L (3.5-5.1); Protein, Total 6.3 g/dL (6.4-8.2); Sodium Level 142 mmol/L (136-145); T4 Free Direct 1.28 ng/dL (0.76-1.46); Thyroid Stim Hormone (TSH) 1.52 uIU/mL (0.358-3.74)
== END | disposition home or self-care (01) ==
LOC: BFHLAB 11:01
PROVIDERS: Family Provider Family Medicine; PCP Family Medicine; Visit Provider Family Medicine
DX: E03.9 Hypothyroidism, unspecified (principal); I12.9 Hypertensive chronic kidney disease with stage 1 through stage 4 chronic kidney disease, or unspecified chronic kidney disease; N18.9 Chronic kidney disease, unspecified
CPT/HCPCS: 36415; 80053; 84439; 84443; 85025

== ENCOUNTER 2019-03-19 20:51 | Emergency (ER) | payer BC, SELFPAY ==
[2019-03-19 20:52] VITALS: BP 178/92; PULSE 71; RESP 15; TEMP 35.8; O2SAT 99; BMI 30.7
--- NOTE | 2019-03-19 21:14 | CT_ITS ---
HISTORY: HEADACHE Technique:CT Head or Brain W/O Contrast Injection Number of Images including paperwork:241 Comparison: None available. Findings: CT images of the head were obtained without contrast. Periventricular deep and subcortical white matter disease is present. Right lamina papyracea old fracture Paranasal sinuses are clear. The brain is atrophic. Calcific ASCVD involves intracranial arteries. No acute intracranial edema or hemorrhage. No acute abnormality of orbits. Middle ear cavities and mastoid air cells are well aerated. Skull is normal. CT/Brain/Head without Contrast IMPRESSION: No acute intracranial abnormality. Chronic changes as above. ASPECT 10. Individualized dose optimization techniques were used for this CT. at 2156 Reported and signed by: Haja Pyle MD Electronically Signed: Haja Pyle MD at 21:55 EST Tel , Service support ,
--- NOTE | 2019-03-19 21:15 | ED.DCSUM_ITS ---
History of Present Illness Chief Complaint: Headache Informant: Patient Onset: Today Narrative: Patient presents today with a frontal headache and nausea vomiting. Patient states she has had some headaches in the past but nothing that required her to see neurology for and nothing that is required medication at home. Past couple days she has had some intermittent occipital headache for most of the day her headache was occipital in nature. She started vomiting this evening and the headache is now frontal. She notes light sensitivity. She denies any visual disturbances. She states that her arms and legs and speech are normal for her. No rashes. No recent infections. She recently increased her gabapentin and her Foster yesterday which she takes for chronic generalized pain. Past Medical History - Allergies and Home Meds Allergies/Adverse Reactions: Allergies oxycodone Allergy (Verified 03/19/19 20:57) Rash Penicillins [PCN] Allergy (Verified 03/19/19 20:57) Unknown Tetracyclines Allergy (Verified 03/19/19 20:57) Rash Primary Care Physician: John Batista MD [Primary Care Provider] - Smoking Status: Never smoker Review of Systems General: Denies: Chills, Fever, Sweats Eyes: Reports: - - light sensitivity. Denies: Visual changes - left, Visual changes - right, Visual changes - bilaterally, Diplopia ENT: Denies: Rhinorrhea, Sore throat Cardiovascular: Denies: Chest pain, Palpitations Respiratory: Denies: Dyspnea, Cough, Dyspnea on exertion Gastrointestinal: Reports: Nausea, Vomiting. Denies: Abdominal pain, Diarrhea, Melena, Hematochezia Genitourinary: Denies: Dysuria, Hematuria, Frequency Musculoskeletal: Denies: Back pain, Extremity Pain Skin: Denies: Rash, Wounds Neurological: Reports: Headache. Denies: Weakness, Numbness Hematologic: Denies: Easy bruising, Easy bleeding Allergy: Denies: Uticaria, Swelling of the mouth Physical Exam Vital Signs/Narrative: Vital Signs Temp Pulse Resp BP Pulse Ox 03/19/19 20:52 96.5 F L 71 15 178/92 H 99 Inital Vital Signs reviewed: Yes General: Well nourished, Well developed, No Acute Distress Head: Normocephalic, Atraumatic Eyes: Perrl, EOMI, - - photophobia ENT: Moist mucous membranes, No rhinorrhea Neck: Supple, Nontender Cardiovascular: Regular rate, Regular rhythm, No murmurs Respiratory: No distress, CTA bilaterally, Chest nontender Abdomen: Soft, Nontender, Nondistended, Normal bowel sounds Back: Nontender, Normal Inspection Extremities: Nontender, No edema Skin: Normal color, No rash Neurological: Alert, Oriented x3, Cranial nerves II-XII grossly intact, Normal Strength, Normal Sensation Psychological: Normal affect, Normal Mood Diagnostic/Tx/Re-eval - Medical Decision Making She received IV fluids and then went for head CT. Head CT was negative for acute findings. She then received Toradol Compazine and Benadryl. She was allowed to sleep and rest and a repeat examination states she is doing better. I write for her to have some Zofran at home I would recommend either taking some Excedrin or ibuprofen over the next 24 hours. She was advised to follow-up with primary care and if migraines become a continued issue recommend she talk to her doctors about abortive therapy or preventative therapy. ED Disposition - Plan for ED Patient: Disposition: Home or Assisted Living Diagnosis: Headache Instructions: HEADACHE, Unspecified Prescriptions: Ondansetron [Zofran Odt] 4 mg PO Q8H PRN PRN #10 tab PRN Reason: Nausea Prescription Printed Referrals: John Batista MD [Primary Care Provider] - 1 Week
[2019-03-19] MEDS: 0.9% Normal Saline 1,000 ML 999 ML IV (21:16)
[2019-03-19] MEDS: DiphenhydrAMINE 50 MG/ML Syringe IV (21:51)
[2019-03-19] MEDS: Ketorolac 30 MG/ML Syringe IV (21:52)
[2019-03-19] MEDS: proCHLORPERazine 10 MG/2 ML Vial IV (21:54)
[2019-03-19 23:28] VITALS: BP 161/83; PULSE 68; RESP 15; O2SAT 97; O2SAT 98
== END 2019-03-19 23:30 | disposition home or self-care (01) ==
PROVIDERS: Emergency Provider Emergency Medicine; Family Provider Family Medicine; PCP Family Medicine
DX: R51 Headache (principal); G89.29 Other chronic pain; Z79.891 Long term (current) use of opiate analgesic
CPT/HCPCS: 70450; 96361; 96374; 96375; 99284; J7030; A4216

== ENCOUNTER → 2019-04-06 12:06 | Outpatient (CLI) | payer BC, SELFPAY ==
[2019-03-19 20:52] VITALS: BMI 30.7
[2019-04-06 14:24] LABS: Absolute Lymphocyte Count 1.53 X10^3/uL (0.83-4.51); Absolute Neutrophil Count 6.9 X10^3/uL (2.0-7.7); Basophil# 0.04 X10^3/uL; Basophil% 0.4 % (0-1); Eosinophil# 0.33 X10^3/uL; Eosinophils% 3.4 % (0-5); Hematocrit 44.2 % (37-47); Lymphocyte # 1.53 X10^3/ul (4.0); Lymphocyte % 15.6 % (19-41); Mean Corp Hgb Conc 31.7 g/dL (32-36); Mean Corpuscular Hgb 28.7 pg (27.0-32.0); Mean Corpuscular Volume 90.8 fL (81-99); Mean Platelet Vol. 10.1 fl (6.2-12.0); Monocyte# 0.96 X10^3/uL; Monocyte% 9.8 % (0-10); NRBC Flagged by Analyzer 0 % (0-5); Neutrophil # 6.91 X10^3/uL (2.7-7.7); Neutrophil % 70.5 % (47-70); Platelet Count 265 K/mm3 (150-450); RBC Distribution Width CV 11.8 % (11.6-14.6); RBC Distribution Width SD 39.2 fl (35.1-43.9); Red Blood Count 4.87 M/mm3 (4.2-5.4); White Blood Count 9.8 K/mm3 (4.4-11.0)
[2019-04-06 14:37] LABS: ALB/GLOB Ratio 1.2 RATIO (0.9-2.4); AST(SGOT) 20 U/L (15-37); Alanine Aminotransfer ALT/SGPT 32 U/L (13-56); Albumin, Serum 3.7 g/dL (3.2-5.0); Alkaline Phosphatase 85 U/L (45-117); Anion Gap 3 (5-15); BUN 32 mg/dL (7-18); BUN/Creat Ratio 31.7 RATIO (10-20); Calcium,Total 9.3 mg/dL (8.5-10.1); Chloride 107 mmol/L (98-107); Creatinine, Serum 1.01 mg/dL (0.55-1.02); EST Glomerular Filtration Rate 59 mL/min (>60); Est Glom Filt Rate - Afr Amer 72 mL/min (>60); Globulin 3.1 g/dL (2.2-4.2); Glucose 85 mg/dL (74-106); Potassium 4.3 mmol/L (3.5-5.1); Protein, Total 6.8 g/dL (6.4-8.2); Sodium Level 142 mmol/L (136-145)
== END ==
LOC: MTLAB 12:08
PROVIDERS: PCP Family Medicine; Referring Provider Internal Medicine Rheumatology; Visit Provider Internal Medicine Rheumatology
DX: M06.09 Rheumatoid arthritis without rheumatoid factor, multiple sites (principal); Z79.899 Other long term (current) drug therapy; M79.7 Fibromyalgia; R76.8 Other specified abnormal immunological findings in serum
CPT/HCPCS: 36415; 80053; 85025

== ENCOUNTER → 2019-06-23 | Outpatient (CLI) | payer BC, SELFPAY ==
[2019-06-23 15:15] LABS: Absolute Lymphocyte Count 1.36 X10^3/uL (0.83-4.51); Absolute Neutrophil Count 10.2 X10^3/uL (2.0-7.7); Basophil# 0.06 X10^3/uL; Basophil% 0.5 % (0-1); Eosinophil# 0.24 X10^3/uL; Eosinophils% 1.9 % (0-5); Hematocrit 45.8 % (37-47); Hemoglobin 14.3 g/dL (12.0-15.0); Lymphocyte # 1.36 X10^3/ul (4.0); Lymphocyte % 10.5 % (19-41); Mean Corp Hgb Conc 31.2 g/dL (32-36); Mean Corpuscular Hgb 28.4 pg (27.0-32.0); Mean Corpuscular Volume 90.9 fL (81-99); Mean Platelet Vol. 10.2 fl (6.2-12.0); Monocyte# 1.04 X10^3/uL; NRBC Flagged by Analyzer 0 % (0-5); Neutrophil # 10.18 X10^3/uL (2.7-7.7); Neutrophil % 78.7 % (47-70); Platelet Count 287 K/mm3 (150-450); RBC Distribution Width CV 12.4 % (11.6-14.6); RBC Distribution Width SD 40.7 fl (35.1-43.9); Red Blood Count 5.04 M/mm3 (4.2-5.4); White Blood Count 12.9 K/mm3 (4.4-11.0)
[2019-06-23 15:29] LABS: ALB/GLOB Ratio 1.1 RATIO (0.9-2.4); AST(SGOT) 23 U/L (15-37); Alanine Aminotransfer ALT/SGPT 35 U/L (13-56); Albumin, Serum 3.5 g/dL (3.2-5.0); Alkaline Phosphatase 89 U/L (45-117); Anion Gap 5 (5-15); BUN 29 mg/dL (7-18); BUN/Creat Ratio 26.6 RATIO (10-20); Calcium,Total 9.2 mg/dL (8.5-10.1); Chloride 108 mmol/L (98-107); Creatinine, Serum 1.09 mg/dL (0.55-1.02); EST Glomerular Filtration Rate 54 mL/min (>60); Est Glom Filt Rate - Afr Amer 66 mL/min (>60); Globulin 3.3 g/dL (2.2-4.2); Glucose 100 mg/dL (74-106); Potassium 4.1 mmol/L (3.5-5.1); Protein, Total 6.8 g/dL (6.4-8.2); Sodium Level 144 mmol/L (136-145)
== END | disposition home or self-care (01) ==
LOC: MTLAB 13:57
PROVIDERS: PCP Family Medicine; Referring Provider Internal Medicine Rheumatology; Visit Provider Internal Medicine Rheumatology
DX: M06.09 Rheumatoid arthritis without rheumatoid factor, multiple sites (principal); M79.7 Fibromyalgia; R76.8 Other specified abnormal immunological findings in serum; K21.0 Gastro-esophageal reflux disease with esophagitis; I10 Essential (primary) hypertension; E03.9 Hypothyroidism, unspecified; Z79.899 Other long term (current) drug therapy
CPT/HCPCS: 36415; 80053; 85025

== ENCOUNTER → 2019-10-11 | Outpatient (CLI) | payer BC, SELFPAY ==
[2019-10-11 15:50] LABS: Erythrocyte Sedimentation Rate 3 mm/hr (0-30)
[2019-10-11 15:58] LABS: Hemoglobin A1c 5.4 % (3.8-5.6)
[2019-10-11 16:18] LABS: Rheumatoid Factor < 10.0 IU/mL (<15); Thyroid Stim Hormone (TSH) 1.17 uIU/mL (0.358-3.74)
[2019-10-11 16:51] LABS: HIV - WCH Non-Reactive (Nonreactive)
[2019-10-11 16:53] LABS: Vitamin B12 > 2000 pg/mL (211-911)
[2019-10-13 12:07] LABS: RNP Ab <0.2 AI (0.0-0.9); Smith Ab <0.2 AI (0.0-0.9)
[2019-10-13 13:40] LABS: ANTINUCLEAR ANTIBODIES DIRECT Positive (Negative)
[2019-10-13 20:07] LABS: Immunoglobulin A 170 mg/dL (87-352); Immunoglobulin G 831 mg/dL (586-1602); PROEL- A/G Ratio 1.2 (0.7-1.7); PROEL- Albumin 3.4 g/dL (2.9-4.4); PROEL- Alpha-1 Globulin 0.3 g/dL (0.0-0.4); PROEL- Alpha-2 Globulin 0.8 g/dL (0.4-1.0); PROEL- Gamma Globulin 0.8 g/dL (0.4-1.8); PROEL- Globulin, Total 2.9 g/dL (2.2-3.9); PROEL- TOTAL PROTEIN 6.3 g/dL (6.0-8.5)
[2019-10-14 04:22] LABS: Immunoglobulin M 121 mg/dL (26-217)
== END | disposition home or self-care (01) ==
LOC: LAB 15:03
PROVIDERS: PCP Family Medicine
DX: G62.9 Polyneuropathy, unspecified (principal)
CPT/HCPCS: 36415; 82607; 82746; 82784; 83036; 84165; 84443; 85652; 86038; 86235; 86334; 86431; 86703

== ENCOUNTER → 2019-10-25 | Outpatient (CLI) | payer BC, SELFPAY ==
--- NOTE | 2019-10-25 12:40 | RAD_ITS ---
STUDY: X-RAY - LEFT SHOULDER REASON FOR EXAM: Female, 58 years old. LEFT SHOULDER PAIN AND CRACKING SOUNDS, NKI TECHNIQUE: 4 view(s) of the shoulder. COMPARISON: None. FINDINGS: Normal glenohumeral articulation. Normal acromioclavicular joint. Normal acromion. Normal humeral head and visualized proximal humerus. The soft tissue structures are unremarkable. Normal visualized pulmonary apex. RAD/Shoulder min 2 Views IMPRESSION: Normal x-ray examination of the shoulder. Electronically Signed: Puma Scott MD at 12:56 EDT Tel , Service support ,
== END | disposition home or self-care (01) ==
LOC: RAD 12:38
PROVIDERS: PCP Family Medicine; Referring Provider Family Medicine; Visit Provider Family Medicine
DX: M25.512 Pain in left shoulder (principal)
CPT/HCPCS: 73030

== ENCOUNTER → 2019-11-04 | Outpatient (CLI) | payer BC, SELFPAY ==
[2019-11-04 17:18] LABS: Absolute Lymphocyte Count 1.06 X10^3/uL (0.83-4.51); Absolute Neutrophil Count 10.4 X10^3/uL (2.0-7.7); Basophil# 0.05 X10^3/uL; Basophil% 0.4 % (0-1); Eosinophil# 0.21 X10^3/uL; Eosinophils% 1.7 % (0-5); Hematocrit 44.7 % (37-47); Hemoglobin 14.2 g/dL (12.0-15.0); Lymphocyte # 1.06 X10^3/ul (4.0); Lymphocyte % 8.3 % (19-41); Mean Corp Hgb Conc 31.8 g/dL (32-36); Mean Corpuscular Hgb 28.9 pg (27.0-32.0); Mean Corpuscular Volume 90.9 fL (81-99); Mean Platelet Vol. 10.3 fl (6.2-12.0); Monocyte# 0.99 X10^3/uL; Monocyte% 7.8 % (0-10); NRBC Flagged by Analyzer 0 % (0-5); Neutrophil # 10.35 X10^3/uL (2.7-7.7); Neutrophil % 81.5 % (47-70); Platelet Count 296 K/mm3 (150-450); RBC Distribution Width CV 12.2 % (11.6-14.6); RBC Distribution Width SD 40.6 fl (35.1-43.9); Red Blood Count 4.92 M/mm3 (4.2-5.4); White Blood Count 12.7 K/mm3 (4.4-11.0)
[2019-11-04 17:38] LABS: AST(SGOT) 25 U/L (15-37); Alanine Aminotransfer ALT/SGPT 46 U/L (13-56); Albumin, Serum 3.5 g/dL (3.2-5.0); Alkaline Phosphatase 102 U/L (45-117); Anion Gap 7 (5-15); BUN 24 mg/dL (7-18); BUN/Creat Ratio 21.4 RATIO (10-20); Calcium,Total 8.9 mg/dL (8.5-10.1); Chloride 102 mmol/L (98-107); Creatinine, Serum 1.12 mg/dL (0.55-1.02); EST Glomerular Filtration Rate 53 mL/min (>60); Est Glom Filt Rate - Afr Amer 64 mL/min (>60); Globulin 3.5 g/dL (2.2-4.2); Glucose 79 mg/dL (74-106); Potassium 3.3 mmol/L (3.5-5.1); Sodium Level 142 mmol/L (136-145); T4 Free Direct 1.12 ng/dL (0.76-1.46); Thyroid Stim Hormone (TSH) 3.75 uIU/mL (0.358-3.74)
== END | disposition home or self-care (01) ==
PROVIDERS: PCP Family Medicine; Referring Provider Family Medicine; Visit Provider Family Medicine
DX: E03.9 Hypothyroidism, unspecified (principal); M06.09 Rheumatoid arthritis without rheumatoid factor, multiple sites; M79.7 Fibromyalgia; R76.8 Other specified abnormal immunological findings in serum; K21.0 Gastro-esophageal reflux disease with esophagitis; I10 Essential (primary) hypertension; Z79.899 Other long term (current) drug therapy
CPT/HCPCS: 36415; 80053; 84439; 84443; 85025

== ENCOUNTER → 2020-01-18 14:02 | Outpatient (CLI) | payer BC, SELFPAY ==
[2020-01-18 15:33] LABS: Absolute Lymphocyte Count 1.07 X10^3/uL (0.83-4.51); Absolute Neutrophil Count 12.1 X10^3/uL (2.0-7.7); Basophil# 0.06 X10^3/uL; Basophil% 0.4 % (0-1); Eosinophil# 0.24 X10^3/uL; Eosinophils% 1.6 % (0-5); Hematocrit 44.9 % (37-47); Hemoglobin 14.2 g/dL (12.0-15.0); Lymphocyte # 1.07 X10^3/ul (4.0); Lymphocyte % 7.3 % (19-41); Mean Corp Hgb Conc 31.6 g/dL (32-36); Mean Corpuscular Hgb 28.9 pg (27.0-32.0); Mean Corpuscular Volume 91.3 fL (81-99); Mean Platelet Vol. 10.6 fl (6.2-12.0); Monocyte# 1.08 X10^3/uL; Monocyte% 7.4 % (0-10); NRBC Flagged by Analyzer 0 % (0-5); Neutrophil # 12.12 X10^3/uL (2.7-7.7); Neutrophil % 82.8 % (47-70); Platelet Count 264 K/mm3 (150-450); RBC Distribution Width CV 12.4 % (11.6-14.6); RBC Distribution Width SD 41.3 fl (35.1-43.9); Red Blood Count 4.92 M/mm3 (4.2-5.4); White Blood Count 14.6 K/mm3 (4.4-11.0)
[2020-01-18 15:45] LABS: ALB/GLOB Ratio 1.1 RATIO (0.9-2.4); AST(SGOT) 62 U/L (15-37); Alanine Aminotransfer ALT/SGPT 116 U/L (13-56); Albumin, Serum 3.7 g/dL (3.2-5.0); Alkaline Phosphatase 113 U/L (45-117); Anion Gap 6 (5-15); BUN 31 mg/dL (7-18); BUN/Creat Ratio 28.7 RATIO (10-20); Calcium,Total 8.9 mg/dL (8.5-10.1); Chloride 104 mmol/L (98-107); Creatinine, Serum 1.08 mg/dL (0.55-1.02); EST Glomerular Filtration Rate 55 mL/min (>60); Est Glom Filt Rate - Afr Amer 66 mL/min (>60); Globulin 3.5 g/dL (2.2-4.2); Glucose 114 mg/dL (74-106); Potassium 3.7 mmol/L (3.5-5.1); Protein, Total 7.2 g/dL (6.4-8.2); Sodium Level 141 mmol/L (136-145)
== END ==
PROVIDERS: PCP Family Medicine; Referring Provider Internal Medicine Rheumatology; Visit Provider Internal Medicine Rheumatology
DX: M06.09 Rheumatoid arthritis without rheumatoid factor, multiple sites (principal); M79.7 Fibromyalgia; R76.8 Other specified abnormal immunological findings in serum; K21.00 Gastro-esophageal reflux disease with esophagitis, without bleeding; I10 Essential (primary) hypertension; E03.9 Hypothyroidism, unspecified; Z79.899 Other long term (current) drug therapy
CPT/HCPCS: 36415; 80053; 85025

== ENCOUNTER → 2020-02-09 | Outpatient (CLI) | payer BC, SELFPAY ==
--- NOTE | 2020-02-09 09:21 | US_ITS ---
STUDY: ABDOMINAL ULTRASOUND - RIGHT UPPER QUADRANT REASON FOR VISIT: Female, 59 years old ELEVATED LIVER ENZYMES TECHNIQUE: Ultrasound evaluation of the right upper quadrant was performed with real-time and static trevino-scale imaging. TECHNICAL QUALITY: Adequate. COMPARISON: None. FINDINGS: Liver: The liver measures 15.6 cm. There is normal echogenicity of the liver. The bile ducts are within normal limits. There is hepatic color flow. The direction of portal flow is hepatopetal. There is no demonstrated mass lesion. Gallbladder: The patient is status post cholecystectomy. Common Bile Duct (C.B.D.): The common bile duct measures 5.4 mm. Pancreas: Normal size of the head, body and tail of the pancreas. There is increased echogenicity of the pancreas. There is no demonstrated pancreatic mass or cyst. Right Kidney: Normal size of the right kidney. The right kidney measures 10 cm x 5.6 cm x 5.5 cm. Normal renal cortex. The right cortex measures 1.2 cm. There is no demonstrated renal mass or cyst. There is no right hydronephrosis. US/Liver IMPRESSION: Status post cholecystectomy. No acute abnormality is seen. Electronically Signed: Yohannes Crystal, at 12:34 EST , Service support ,
== END | disposition home or self-care (01) ==
LOC: US 09:20
PROVIDERS: PCP Family Medicine; Referring Provider Internal Medicine Rheumatology; Visit Provider Internal Medicine Rheumatology
DX: M06.09 Rheumatoid arthritis without rheumatoid factor, multiple sites (principal); M79.7 Fibromyalgia; R76.8 Other specified abnormal immunological findings in serum; I10 Essential (primary) hypertension; E03.9 Hypothyroidism, unspecified; Z79.899 Other long term (current) drug therapy
CPT/HCPCS: 76705

== ENCOUNTER → 2020-02-28 14:45 | Outpatient (CLI) | payer BC, SELFPAY ==
[2020-02-28 18:06] LABS: ALB/GLOB Ratio 1.1 RATIO (0.9-2.4); AST(SGOT) 35 U/L (15-37); Alanine Aminotransfer ALT/SGPT 77 U/L (13-56); Albumin, Serum 3.9 g/dL (3.2-5.0); Alkaline Phosphatase 97 U/L (45-117); Anion Gap 6 (5-15); BUN 26 mg/dL (7-18); BUN/Creat Ratio 22.8 RATIO (10-20); Calcium,Total 9.3 mg/dL (8.5-10.1); Chloride 104 mmol/L (98-107); Creatinine, Serum 1.14 mg/dL (0.55-1.02); EST Glomerular Filtration Rate 51 mL/min (>60); Est Glom Filt Rate - Afr Amer 62 mL/min (>60); Globulin 3.6 g/dL (2.2-4.2); Glucose 104 mg/dL (74-106); Potassium 3.9 mmol/L (3.5-5.1); Protein, Total 7.5 g/dL (6.4-8.2); Sodium Level 139 mmol/L (136-145)
== END ==
PROVIDERS: PCP Family Medicine; Referring Provider Internal Medicine Rheumatology; Visit Provider Internal Medicine Rheumatology
DX: M06.09 Rheumatoid arthritis without rheumatoid factor, multiple sites (principal); M79.7 Fibromyalgia; R76.8 Other specified abnormal immunological findings in serum; K21.00 Gastro-esophageal reflux disease with esophagitis, without bleeding; I10 Essential (primary) hypertension; E03.9 Hypothyroidism, unspecified; Z79.899 Other long term (current) drug therapy
CPT/HCPCS: 36415; 80053

== ENCOUNTER 2020-03-19 23:39 | Emergency (ER) | payer OTHER, SELFPAY ==
[2020-03-19 23:39] VITALS: PULSE 71; RESP 15; TEMP 36.8; O2SAT 100; BMI 33.0
--- NOTE | 2020-03-19 23:42 | ED.RN ---
[facility] # FOR UPDATES [id number]
--- NOTE | 2020-03-20 | ED.DCSUM_ITS ---
History of Present Illness Chief Complaint: Headache Informant: Patient Onset: Today Context: Activity - awoke w/ headache, has persisted all day Timing: Continuous Quality: Similar Prior Headaches, Throbbing Location: bifrontal Current Severity: Severe Maximum Severity: Severe - not the worst ever; hx chronic headaches like this Worsened by: light Relieved by: nothing. tried zofran, norco. Associated Symptoms: Nausea, Vomiting, Blurred Vision, Photophobia. Negative for: Fever, Sore Throat, Sinus Pressure, Numbness, Visual Loss Injury: - - no injury Narrative: Patient states she has a longstanding history of migraines and this feels like a typical one that just will not go away, it has been there all day, she states for years she wakes up with headaches every morning but they usually go away. Today it has not. She confirms that she had a negative MRI less than 1 year ago and has never been diagnosed with a brain mass. She denies any syncope today, focal neurologic symptoms, neck stiffness, disorientation, or fevers/COVID-19 symptoms or history of having this infection. She has had vomiting which she commonly gets with her migraines but no abdominal pain. She takes no anticoagulants. She takes [place] 1 tablet 3 times a day for her fibromyalgia and arthralgias, and states that she is aware that this medication can make a migraine persist and sometimes get worse unless the Tylenol part of it actually helps the headache. Prior similar symptoms: Yes Recent Illness/Hospitalization: No - Past Medical History (1) Migraines Status: Chronic (2) Fibromyalgia Status: Chronic (3) Arthritis Status: Chronic Past Medical History - Allergies and Home Meds Allergies/Adverse Reactions: Allergies oxycodone Allergy (Verified 03/19/20 23:42) Rash Penicillins [PCN] Allergy (Verified 03/19/20 23:42) Unknown Tetracyclines Allergy (Verified 03/19/20 23:42) Rash Primary Care Physician: John Batista MD [Primary Care Provider] - Smoking Status: Never smoker Review of Systems General: Denies: Chills, Fever, Sweats Eyes: Reports: Visual changes - bilaterally, Blurred Vision - bilaterally. Denies: Diplopia ENT: Denies: Bilateral ear pain, Rhinorrhea, Sore throat Cardiovascular: Denies: Chest pain, Palpitations Respiratory: Denies: Dyspnea, Cough, Dyspnea on exertion Gastrointestinal: Reports: Nausea, Vomiting. Denies: Abdominal pain, Diarrhea, Melena, Hematochezia Genitourinary: Denies: Dysuria, Hematuria, Frequency Musculoskeletal: Reports: Arthralgias - chronic, stable. Denies: Myalgias, Neck pain, Back pain, Swelling, Extremity Pain Skin: Denies: Rash, Wounds Neurological: Reports: Headache. Denies: Weakness, Numbness Physical Exam Vital Signs/Narrative: Vital Signs Temp Pulse Resp Pulse Ox 03/19/20 23:39 98.2 F 71 15 100 Inital Vital Signs reviewed: Yes General: Well nourished, Well developed, - - NAD Head: NC, AT Eyes: Perrl, EOMI, - - photophobic ENT: Moist mucous membranes, No rhinorrhea Neck: Supple, No Meningismus Cardiovascular: Regular rate, Regular rhythm, No murmurs Respiratory: No distress, CTA bilaterally, Chest nontender Back: Nontender, Normal Inspection Extremities: Nontender, No edema Skin: Normal color, No rash Neuro: Alert, Oriented x3, Cranial nerves II-XII grossly intact, Normal Strength, Normal Sensation, Normal Gait Psychological: Normal affect, Normal Mood Diagnostic/Tx/Re-eval - Medical Decision Making Patient was treated for migraine headache, with IV fluids, Toradol, Reglan. She did not have any adverse effects from these medications and felt much better with almost complete resolution of her headache on reevaluation. She was offered more medications and a longer stay but she declined and states she would like to go home and sleep which I think is fine. We discussed reasons to return. ED Disposition - Plan for ED Patient: Disposition: Home or Assisted Living Diagnosis: Migraine headache Instructions: ED, Migraine (Classical) Referrals: John Batista MD [Primary Care Provider] - As Needed
[2020-03-20] MEDS: Metoclopramide 10 MG/2 ML Vial IV (00:10)
[2020-03-20] MEDS: Ketorolac 15 MG/ML Vial IV (00:10)
[2020-03-20 01:35] VITALS: BP 159/68; RESP 15; O2SAT 98
== END 2020-03-20 01:36 | disposition home or self-care (01) ==
LOC: ED 03-20 01:01
PROVIDERS: Emergency Provider Emergency Medicine; PCP Family Medicine
DX: G43.909 Migraine, unspecified, not intractable, without status migrainosus (principal); M79.7 Fibromyalgia; M19.90 Unspecified osteoarthritis, unspecified site; Z79.891 Long term (current) use of opiate analgesic
CPT/HCPCS: 96361; 96374; 96375; 99283; J7030; A4216

== ENCOUNTER → 2020-04-04 14:04 | Outpatient (CLI) | payer OTHER, SELFPAY ==
[2020-03-19 23:39] VITALS: BMI 33.0
[2020-04-04 16:08] LABS: AST(SGOT) 31 U/L (15-37); Alanine Aminotransfer ALT/SGPT 39 U/L (13-56); Albumin, Serum 3.7 g/dL (3.2-5.0); Alkaline Phosphatase 111 U/L (45-117); Anion Gap 6 (5-15); BUN 23 mg/dL (7-18); BUN/Creat Ratio 19.3 RATIO (10-20); Calcium,Total 9.2 mg/dL (8.5-10.1); Chloride 103 mmol/L (98-107); Creatinine, Serum 1.19 mg/dL (0.55-1.02); EST Glomerular Filtration Rate 49 mL/min (>60); Est Glom Filt Rate - Afr Amer 59 mL/min (>60); Globulin 3.6 g/dL (2.2-4.2); Glucose 115 mg/dL (74-106); Potassium 4.3 mmol/L (3.5-5.1); Protein, Total 7.3 g/dL (6.4-8.2); Sodium Level 139 mmol/L (136-145)
[2020-04-06 13:44] LABS: ANTINUCLEAR ANTIBODIES DIRECT Positive (Negative)
== END ==
PROVIDERS: Internal Medicine Rheumatology; PCP Family Medicine
DX: M06.9 Rheumatoid arthritis, unspecified (principal); M79.7 Fibromyalgia; R76.8 Other specified abnormal immunological findings in serum; I10 Essential (primary) hypertension; E03.9 Hypothyroidism, unspecified; R89.9 Unspecified abnormal finding in specimens from other organs, systems and tissues; Z79.899 Other long term (current) drug therapy
CPT/HCPCS: 36415; 80053; 86038

== ENCOUNTER → 2020-04-06 15:21 | Outpatient (CLI) | payer OTHER, SELFPAY ==
[2020-03-19 23:39] VITALS: BMI 33.0
[2020-04-11 20:07] LABS: QNTFERON TB Mitogen Value > 10.00 IU/mL (.); QNTFERON TB Nil Value 0.02 IU/mL (.); QNTFERON TB1+ Ag Value 0.19 IU/mL (.); QNTFERON TB2+ Ag Value 0.02 IU/mL (.)
[2020-04-11 20:14] LABS: QNTIFERON TB Positive Criteria Negative (Negative)
== END ==
PROVIDERS: PCP Family Medicine; Referring Provider Internal Medicine Rheumatology; Visit Provider Internal Medicine Rheumatology
DX: M06.09 Rheumatoid arthritis without rheumatoid factor, multiple sites (principal); M79.7 Fibromyalgia; R76.8 Other specified abnormal immunological findings in serum; K21.00 Gastro-esophageal reflux disease with esophagitis, without bleeding; I10 Essential (primary) hypertension; E03.9 Hypothyroidism, unspecified; Z79.899 Other long term (current) drug therapy
CPT/HCPCS: 36415; 86480

== ENCOUNTER 2020-04-19 09:59 | Outpatient (RCR) | payer OTHER, SELFPAY ==
--- NOTE | 2020-05-27 18:54 | HP.FCE ---
Date of Evaluation: 04/19/20 Floor (Occasional 1-33% of Day): 15# Floor (Frequent 34-66% of Day): 8# Floor (Constant 67-100% of Day): NA Floor PDL: Sedentary-Light Knee (Occasional 1-33% of Day): 15# Knee (Frequent 34-66% of Day): 8# Knee (Constant 67-100% of Day): NA Knee PDL: Sedentary-Light Waist (Occasional 1-33% of Day): 15# Waist (Frequent 34-66% of Day): 8# Waist (Constant 67-100% of Day): NA Waist PDL: Sedentary-Light Shoulder (Occasional 1-33% of Day): 15# Shoulder (Frequent 34-66% of Day): 8# Shoulder (Constant 67-100% of Day): NA Shoulder PDL: Sedentary-Light Overhead (Occasional 1-33% of Day): 15# Overhead (Frequent 34-66% of Day): 8# Overhead (Constant 67-100% of Day): NA Overhead PDL: Sedentary-Light Bending: Frequent Ability (34-66% of day) Squatting: Occasional Ability (1-33% of day) Kneeling: No Ablility (0% of day) Comments: unsafe for her to kneel as difficulty with use of external support Reaching out: Frequent Ability (34-66% of day) Reaching up: Constant Ability (67-100% of day) Sitting: Frequent Ability (34-66% of day) Walking: Occasional Ability (1-33% of day) Standing: Occasional Ability (1-33% of day) Duration Sedentary Sedentary Light Light Light Medium Medium Medium Heavy Very Heavy Heavy Occasional (0-33% of day) Frequent (34-66% of day) Constant (67-100% of day) 10 # Negligible Negligible 15 # 8 # Negligible 20 # 10# Negli. 35 # 18 # 7 # 50 # 25 # 10 # 75 # 100 # >100 # 38 # 50 # >50 # 15 # 20 # >20 # Height: 5 ft 4 in Weight:: 89.811 kg Hand Dominance: Right Medical History Including Restrictions: Applied for Disability in July- . Saw Dr. Hopson on and was referred her for FCE. Pain has been ongoing at least 6 years ago. Diagnosed with RA and neuropathy roughly 5 years ago. Pt reports pain has not been going away and only continuing to get worse. Pt reports she has been getting injections as needed for pain. Pt reports that she doesn't sleep well- unable to lay down flat without excruating pain and lead to migraine. Sleeps on reclining couch, while mostly in seated position. Experiences headaches daily. Pt reports spells with migraines and dizziness- unpredictable. Saw a neurologist in September 2018 and completed MRI/CT scans and bloodwork- have been negative. Diagnoses: RA, neuropathy, HBP Symptoms: Pt reports pain throughout body- severe pain throughout L side of body. Moderate pain in R wrist/hand/ankle/foot. Pain: Pt reports current pain is a constant ache throughout L side of body and right hand/foot. Work History: Pt reports haven't been working since July 10 or 2018. Has been with [employer] since Apr 2017. 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 Would stand all day. Would push/pull materials. Behavioral: N/A ADLS: Lives in a 3 floor condo, no stairs to enter. 1 step from garage into kitchen, no hand rail. First floor setup. Full bathroom located up stairs (15 stairs with 1 hand rail). Tub/shower combo, no grab bars. No chair/bench. Sleeps on main floor in reclining couch. Laundry is located in basement (15 stairs with 1 hand rail). Currently grandson lives with her. He assists with laundry, groceries and some house work (trash, mail, and yardwork). Able to drive- but grandson has been able to help with driving more. ROM: Cervical AROM WFL, AROM WFL RUE, L shoulder flex limited to 90 degrees, distal BUE AROM WNL. BLE AROM WFL. Strength: RUE MMT 5/5, LUE prox MMT 3-/5, RLE MMT 4+/5, LLE MMT 4/5 Right Airfield Operations Specialist Strength Average: 51.66 Right Airfield Operations Specialist Strength Percentile: 34th percentile, pt scored below average Left Airfield Operations Specialist Strength Average: 22.66 Left Airfield Operations Specialist Strength Percentile: <3rd percentile, pt scored well below average Right Lateral Pinch Average: 7.00 Right Lateral Pinch Percentile: <10th percentile, pt scored well below average Left Lateral Pinch Average: 8.00 Left Lateral Pinch Percentile: 16th percentile, pt scored well below average Right Tripod Pinch Average: 6.00 Left Tripod Pinch Average: 2.66 Sensation: Pt denies issues. No concerns. Fine Motor: Nine hole Peg test-. R hand 20 sec (75th percentile- above average). L hand 27 sec (25th percentile- below average) Balance: Good static/Fair dynamic throughout Bending: Pt able to demo ability to bend 3x, unable to finish 10x- stopped at 9x d/t discomfort in lower back, and unable to finish 10x rapid- stopped at 6x rapidly d/t discomfort in lower back and BLEs. Pt able to bend on a frequent basis. Squatting: Pt able to demo ability to squat 3x, unable to finish 10x- stopped at 5x d/t discomfort in lower back and BLEs. Pt able to squat on an occasional basis. Kneeling: Pt unable to demo ability to kneel 3x - stopped at 1x (L kneel)- attempted with RLE and unable to get to floor. Due to difficulty of using external support, pt not safe to kneel. Reaching out/up: Pt able to demo ability to reach up 3x, 10x and unable to finish 10x rapid- stopped at 5x d/t pain in L shoulder region- LUE limited to 90 degrees throughout reaching and completed while seated level. Pt able to reach on a frequent basis. Walking: Pt able to walk 10 minutes without a device, antalgic gait pattern, and slow pace before needing to sit due to c/o pain in lower back and down into legs especially on left side. Pt able to walk on an occasional basis. Standing: Pt able to demo ability to stand 10 minutes without pain in lower back/BLEs. Pt able to stand on an occasional basis. Sitting: Pt able to demo ability to sit 20 minutes without discomfort, however it was noted she would often reposition herself in her seat. Pt is able to sit on a frequent basis. Climbing Stairs: Pt able to ascend/descend 9 steps using a reciprocal pattern using 1 hand rail for UE support, held with R hand with ascending and L hand when descending. L leaning and support in UE noted when descending stairs. Pt able to climb stairs on an occasional basis. Floor Lift: 15#. Pt able to lift from floor on an occasional basis. Pt reports pain in lower back. Knee Lift: 15#. Pt able to lift from knees on an occasional basis. Pt reports pain in lower back. Waist Lift: 15#. Pt able to lift from waist on an occasional basis. Pt reports pain in lower back and upper LUE. Shoulder Lift: 15#. Pt able to lift from shoulders on occasional basis. Pt reports pain in upper LUE, lower back, wrists/hands and BLEs Overhead Lift: 15#. Pt able to overhead lift on occasional basis. Pt reports pain in upper LUE, lower back, wrists/hands Carrying: Pt able to carry 20# 40 feet using antalgic gait pattern, c/o throughout LUE/LLE, lower back and R wrist/hand. Pt able to carry on an occasional basis. Comments: Pt pushed 40 feet and pulled 20 feet had to stop d/t pt reporting increased pain in lower back, BLEs and bath hands/wrists
--- NOTE | 2020-05-27 18:55 | HP.OTFCE.D ---
FCE D/C Summary - Discharge SAVANNAH AGUIRRE was seen for a one time visit for an FCE on 04/19/20 and is discharged.
== END 2020-04-19 19:00 | disposition home or self-care (01) ==
LOC: OT 09:59
PROVIDERS: PCP Family Medicine; Referring Provider Nurse Practitioner Family; Visit Provider Nurse Practitioner Family
DX: M51.37 Other intervertebral disc degeneration, lumbosacral region (principal)
CPT/HCPCS: 97166; 97750

== ENCOUNTER → 2020-04-23 13:43 | Outpatient (CLI) | payer OTHER, SELFPAY ==
[2020-04-23 15:59] LABS: T4 Free Direct 1.49 ng/dL (0.76-1.46); Thyroid Stim Hormone (TSH) 0.53 uIU/mL (0.358-3.74)
== END ==
PROVIDERS: PCP Family Medicine; Visit Provider Family Medicine
DX: E03.9 Hypothyroidism, unspecified (principal)
CPT/HCPCS: 36415; 84439; 84443

== ENCOUNTER → 2020-05-31 13:17 | Outpatient (CLI) | payer OTHER, SELFPAY ==
[2020-05-31 15:49] LABS: Thyroid Stim Hormone (TSH) 1.04 uIU/mL (0.358-3.74)
== END ==
PROVIDERS: PCP Family Medicine; Referring Provider Family Medicine; Visit Provider Family Medicine
DX: E03.9 Hypothyroidism, unspecified (principal)
CPT/HCPCS: 36415; 84443

== ENCOUNTER → 2020-09-25 15:04 | Outpatient (CLI) | payer OTHER, SELFPAY ==
--- NOTE | 2020-09-25 15:10 | RAD_ITS ---
STUDY: X-RAY - LUMBAR SPINE REASON FOR EXAM: Female, 59 years old. DEGENERATION OF LUMBOSACRAL INTERVERTEBRAL -- LUMBOSACRAL SPONDYLOSIS,LUMBOSACRAL STENOSIS TECHNIQUE: 5 view(s) of the lumbar spine were obtained including oblique views. COMPARISON: Comparison is made with prior study dated 02/16/2018. FINDINGS: There is an exaggerated lumbar lordosis. There is a levoscoliosis of the lumbar spine. There is a normal alignment of the vertebrae. There is multilevel endplate spondylosis of the lumbar vertebrae. There is multi-level degenerative disc disease with multi-level disc space narrowing. Facet joint osteoarthritis. Surgical clips are seen in the right upper quadrant. RAD/L/S Spine Min 4 Views IMPRESSION: Degenerative changes of the spine, as detailed above. Levoscoliosis. Electronically Signed: Yohannes Crystal MD at 9:07 EDT , Service support ,
[2020-09-25 15:53] LABS: Absolute Lymphocyte Count 0.94 X10^3/uL (0.83-4.51); Absolute Neutrophil Count 10.2 X10^3/uL (2.0-7.7); Basophil# 0.04 X10^3/uL; Basophil% 0.3 % (0-1); Eosinophil# 0.11 X10^3/uL; Eosinophils% 0.9 % (0-5); Hematocrit 44.6 % (37-47); Hemoglobin 14.2 g/dL (12.0-15.0); Lymphocyte # 0.94 X10^3/ul (0.83-4.51); Lymphocyte % 7.7 % (19-41); Mean Corp Hgb Conc 31.8 g/dL (32-36); Mean Corpuscular Hgb 28.8 pg (27.0-32.0); Mean Corpuscular Volume 90.5 fL (81-99); Monocyte# 0.77 X10^3/uL; Monocyte% 6.3 % (0-10); NRBC Flagged by Analyzer 0 % (0-5); Neutrophil # 10.23 X10^3/uL (2.7-7.7); Neutrophil % 84.4 % (47-70); Platelet Count 262 K/mm3 (150-450); RBC Distribution Width CV 12.4 % (11.6-14.6); RBC Distribution Width SD 40.9 fl (35.1-43.9); Red Blood Count 4.93 M/mm3 (4.2-5.4); White Blood Count 12.1 K/mm3 (4.4-11.0)
[2020-09-25 16:46] LABS: AST(SGOT) 25 U/L (15-37); Alanine Aminotransfer ALT/SGPT 42 U/L (13-56); Albumin, Serum 3.6 g/dL (3.2-5.0); Alkaline Phosphatase 105 U/L (45-117); Anion Gap 5 (5-15); BUN 29 mg/dL (7-18); BUN/Creat Ratio 24.6 RATIO (10-20); Calcium,Total 8.9 mg/dL (8.5-10.1); Chloride 107 mmol/L (98-107); Creatinine, Serum 1.18 mg/dL (0.55-1.02); EST Glomerular Filtration Rate 49 mL/min (>60); Est Glom Filt Rate - Afr Amer 60 mL/min (>60); Globulin 3.5 g/dL (2.2-4.2); Glucose 102 mg/dL (74-106); Potassium 4.2 mmol/L (3.5-5.1); Protein, Total 7.1 g/dL (6.4-8.2); Sodium Level 141 mmol/L (136-145)
== END ==
PROVIDERS: PCP Family Medicine; Referring Provider Internal Medicine Rheumatology; Visit Provider Internal Medicine Rheumatology
DX: M51.37 Other intervertebral disc degeneration, lumbosacral region (principal); M47.817 Spondylosis without myelopathy or radiculopathy, lumbosacral region; M48.07 Spinal stenosis, lumbosacral region; M06.09 Rheumatoid arthritis without rheumatoid factor, multiple sites; M79.7 Fibromyalgia; R76.8 Other specified abnormal immunological findings in serum; K21.00 Gastro-esophageal reflux disease with esophagitis, without bleeding; I10 Essential (primary) hypertension; E03.9 Hypothyroidism, unspecified; Z79.899 Other long term (current) drug therapy
CPT/HCPCS: 36415; 72110; 80053; 85025

== ENCOUNTER → 2020-12-31 14:05 | Outpatient (CLI) | payer OTHER, SELFPAY ==
[2020-12-31 17:49] LABS: Absolute Lymphocyte Count 1.14 X10^3/uL (0.83-4.51); Absolute Neutrophil Count 13.8 X10^3/uL (2.0-7.7); Basophil# 0.08 X10^3/uL; Basophil% 0.5 % (0-1); Eosinophil# 0.16 X10^3/uL; Hematocrit 44.3 % (37-47); Hemoglobin 14.4 g/dL (12.0-15.0); Lymphocyte # 1.14 X10^3/ul (0.83-4.51); Lymphocyte % 6.9 % (19-41); Mean Corp Hgb Conc 32.5 g/dL (32-36); Mean Corpuscular Hgb 29.9 pg (27.0-32.0); Mean Corpuscular Volume 91.9 fL (81-99); Mean Platelet Vol. 10.3 fl (6.2-12.0); Monocyte# 1.26 X10^3/uL; Monocyte% 7.7 % (0-10); NRBC Flagged by Analyzer 0 % (0-5); Neutrophil # 13.76 X10^3/uL (2.7-7.7); Neutrophil % 83.5 % (47-70); Platelet Count 323 K/mm3 (150-450); RBC Distribution Width CV 13.3 % (11.6-14.6); RBC Distribution Width SD 45.2 fl (35.1-43.9); Red Blood Count 4.82 M/mm3 (4.2-5.4); White Blood Count 16.5 K/mm3 (4.4-11.0)
[2020-12-31 18:03] LABS: ALB/GLOB Ratio 0.8 RATIO (0.9-2.4); AST(SGOT) 20 U/L (15-37); Alanine Aminotransfer ALT/SGPT 38 U/L (13-56); Albumin, Serum 3.4 g/dL (3.2-5.0); Alkaline Phosphatase 100 U/L (45-117); Anion Gap 8 (5-15); BUN 31 mg/dL (7-18); BUN/Creat Ratio 26.5 RATIO (10-20); Calcium,Total 9.4 mg/dL (8.5-10.1); Chloride 102 mmol/L (98-107); Creatinine, Serum 1.17 mg/dL (0.55-1.02); EST Glomerular Filtration Rate 50 mL/min (>60); Est Glom Filt Rate - Afr Amer 60 mL/min (>60); Glucose 125 mg/dL (74-106); Potassium 3.7 mmol/L (3.5-5.1); Protein, Total 7.4 g/dL (6.4-8.2); Sodium Level 142 mmol/L (136-145)
== END ==
PROVIDERS: PCP Family Medicine; Referring Provider Internal Medicine Rheumatology; Visit Provider Internal Medicine Rheumatology
DX: M06.09 Rheumatoid arthritis without rheumatoid factor, multiple sites (principal); M79.7 Fibromyalgia; R76.8 Other specified abnormal immunological findings in serum; K21.00 Gastro-esophageal reflux disease with esophagitis, without bleeding; I10 Essential (primary) hypertension; E03.9 Hypothyroidism, unspecified; Z79.899 Other long term (current) drug therapy
CPT/HCPCS: 36415; 80053; 85025

== ENCOUNTER 2021-01-13 00:14 | Emergency (ER) | payer OTHER, SELFPAY ==
[2021-01-13 00:15] VITALS: BP 133/73; PULSE 72; RESP 22; TEMP 36.1; O2SAT 97; BMI 29.9
[2021-01-13 00:17] VITALS: O2SAT 88
--- NOTE | 2021-01-13 00:45 | RAD_ITS ---
STUDY: X-RAY CHEST REASON FOR EXAM: Female, 60 years old. sob cough covid TECHNIQUE: Single AP portable view of the chest. COMPARISON: 11/26/2014. FINDINGS: The lungs are underexpanded with bilateral patchy opacities within the bilateral hilar regions which may indicate bilateral pneumonitis. There is no demonstrated pleural abnormality. Normal size heart. Normal mediastinum and deion. Normal visualized pulmonary arteries. Normal visualized aortic arch and descending thoracic aorta. Normal visualized thoracic spine. Normal visualized ribs, clavicles, and shoulders. There is no demonstrated abnormality of the visualized soft tissue structures of the upper abdomen. RAD/Chest 1 View (Portable) IMPRESSION: Cannot exclude bilateral pneumonitis versus vascular crowding. Recommend follow-up with 2 views of the chest when clinically feasible. Electronically Signed: Tana Hunter MD at 1:53 EDT , Service support ,
--- NOTE | 2021-01-13 00:45 | ED.VIS.DYS ---
HPI History of Present Illness Chief Complaint: Shortness of Breath Informant: patient and family Onset/Context/Timing Onset: Weeks (just over 1; symptoms for about 9 days) Context: gradual Quality: Positive for Dyspnea on exertion Current Severity: Mild Maximum Severity: Mild Worsened by: Exertion and Coughing Relieved by: Rest and Oxygen Associated Symptoms cough Chest Pain: Positive for None Narrative Narrative: Patient with Covid symptoms for about 9 days, tested positive for Covid 1 or 2 days into it at urgent care. She states that after several days of illness she was starting to feel little better and now she is feeling worse again with myalgias, weakness, and a little dyspnea. Intermittently checking her pulse oximetry at home by her grandson, who brought her in today because her pulse ox was reading in the mid to low 80s on room air and she is not on home oxygen. She has a history of hypertension. She is 88% on room air here and placed on a 2 L nasal cannula by nursing staff. She states she has never heard of the monoclonal antibody infusion treatment and no one at urgent care notified her about it. She has a history of arthritis for which she is on Plaquenil and daily prednisone 5 mg. [facility] Medical History (Updated 01/13/21 @ 01:[address] Lance Loja MD) Arthritis Chronic pain Fibromyalgia Migraines Home Medications Orencia 125 mg SUBCUT QWEEK 01/13/21 [History Last Taken Unknown] [place] 12.5 mg PO BID 01/13/21 [History Last Taken Unknown] buprenorphine [Butrans] 1 patch TRANSDERMAL QWEEK 01/13/21 [History Last Taken Unknown] dexamethasone 6 mg PO DAILY #6 tab 01/13/21 [Rx Last Taken Unknown] hydrocodone-acetaminophen 1 tab PO Q6H PRN 01/13/21 [History Last Taken Unknown] hydroxychloroquine 200 mg PO DAILY 01/13/21 [History Last Taken Unknown] levothyroxine [Synthroid] 88 mcg PO DAILY 01/13/21 [History Last Taken Unknown] metoprolol tartrate 100 mg PO DAILY 01/13/21 [History Last Taken Unknown] omeprazole 40 mg PO DAILY 01/13/21 [History Last Taken Unknown] potassium chloride 60 meq PO DAILY 01/13/21 [History Last Taken Unknown] prednisone 5 mg PO DAILY 01/13/21 [History Last Taken Unknown] triamterene-hydrochlorothiazid 1 cap PO DAILY 01/13/21 [History Last Taken Unknown] Allergy/AdvReac Type Severity Reaction Status Date / Time oxycodone Allergy Rash Verified 03/19/20 23:42 Penicillins [PCN] Allergy Unknown Verified 03/19/20 23:42 Tetracyclines Allergy Rash Verified 03/19/20 23:42 Social History Smoking Status: Never smoker ROS ROS ED Constitutional Constitutional ED: Reports body ache(s), chills, fatigue, fever(s), headache(s) and malaise Eyes Eyes: Denies change in vision or diplopia ENT ENT ED: Denies rhinorrhea or sore throat Cardiovascular Cardiovascular: Denies chest pain or palpitations Respiratory/Chest Respiratory/Chest: Reports cough, dyspnea and dyspnea on exertion Gastrointestinal Gastrointestinal: Reports diarrhea; Denies abdominal pain, nausea or vomiting Genitourinary Genitourinary ED: Denies dysuria or hematuria Musculoskeletal Musculoskeletal: Denies back pain or neck pain Integumentary Denies abscess or rash Neurologic Neurologic: Reports headache(s); Denies paresthesias or weakness Psychiatric Psychiatric: Denies anxiety or suicidal thoughts EXAM Physical Exam Const Vital Signs: 01/13/21 00:15 01/13/21 00:18 01/13/21 00:47 Temperature 96.9 F L Temperature Source Temporal Pulse Rate 72 Respiratory Rate 22 H Respiratory Effort Normal Respiratory Depth Normal Respiratory Pattern Normal Blood Pressure 133/73 H Blood Pressure Mean 93 Pulse Ox 97 96 Oxygen Delivery Method Nasal Cannula Nasal Cannula Oxygen Flow Rate (L/min) 3 2 01/13/21 01:08 EDT Temperature Temperature Source Pulse Rate 67 Respiratory Rate 17 Respiratory Effort Respiratory Depth Respiratory Pattern Blood Pressure 121/75 H Blood Pressure Mean 90 Pulse Ox 97 Oxygen Delivery Method Nasal Cannula Oxygen Flow Rate (L/min) 3 Positive well nourished and well developed Constitutional Narrative: Well-appearing, no distress General Appearance ED: well developed and NAD HEENT Reports moist mucous membranes normocephalic and atraumatic Eyes PERRL and EOMs intact bilaterally Neck full ROM and supple Resp normal respiratory effort and clear to auscultation bilaterally Cardio regular rate, regular rhythm and no murmurs Rate: Negative for tachycardic GI non-tender and non-distended Auscultation: normoactive bowel sounds Palpation: soft Back/Spine no CVA tenderness General Back: other FROM Extremity normal to inspection and no calf tenderness General Extremety ED: Negative for edema, pulses abnormal or tenderness General Extremity: Negative for edema or pulses abnormal Neuro oriented x3, CN's II-XII intact bilaterally and no sensory deficits noted Sensorium / Orientation: awake and alert Motor Exam: strength 5/5 throughout Skin no rashes or lesions noted and no wounds MDM MDM MDM Narrative Medical decision making narrative: Patient was 88% in triage, on room air. Put her on 2 L nasal cannula she has been doing very well up to 97% mostly on this. We ambulated her, she was not very dyspneic, she went on the 92% but no lower on the 2 L. She is having no chest pain or tachycardia, her dyspnea is mild. She does require small amount of oxygen. We are able to get her this for home given her positive Covid test, she does have some mild Covid pneumonitis on the x-ray. She has some risk factors, and if she was referred to monoclonal antibody clinic at the time she was diagnosed, then she probably would have at least gotten the infusion since she qualified with her history of hypertension, but she did not receive it. Now she does not qualify. I did discuss with hospitalist, who agrees if she does not have moderate to severe disease which clinically right now she does not, then she may not get remdesivir, and even if we admitted her, she may only get 1 dose of it because right now she would only qualify for an observation. Given all of this I think it would be best to send the patient home on oxygen and Decadron which I started here. She is on prednisone 5 mg daily I advised holding that while she is on the Decadron, and we discussed reasons to return and continue watching her pulse ox at home. She is comfortable with that plan. Lab Data Attestation: I reviewed the patient's lab results. Labs: Laboratory Results - last 24 hr 01/13/21 01/13/21 01/13/21 00:18 00:18 00:18 WBC 6.6 RBC 4.76 Hgb 13.8 Hct 42.6 MCV 89.5 MCH 29.0 MCHC 32.4 RDW Std Deviation 44.7 H RDW Coeff of Hiro 13.5 Plt Count 203 MPV 9.8 Immature Gran % (Auto) 0.500 Neut % (Auto) 82.2 H Lymph % (Auto) 8.7 L [place] % (Auto) 8.1 Eos % (Auto) 0.3 Baso % (Auto) 0.2 Absolute Neuts (auto) 5.4 Absolute Lymphs (auto) 0.57 L Nucleated RBC % 0 Differential Comment SCANNED Sodium 137 Potassium 4.1 Chloride 101 Carbon Dioxide 30.0 Anion Gap 6 BUN 25 H Creatinine 1.21 H Estim Creat Clear Calc 43.38 Est GFR (MDRD) Af Amer 58 L Est GFR (MDRD) Non-Af 48 L BUN/Creatinine Ratio 20.7 H Glucose 110 H Lactic Acid 1.2 Calcium 8.9 Total Bilirubin 0.40 AST 45 H ALT 37 Alkaline Phosphatase 162 H Troponin I High Sens 6 Total Protein 7.4 Albumin 3.0 L Globulin 4.4 H Albumin/Globulin Ratio 0.7 L Radiography Diagnostic Testing: Clinical Impression(s) from Imaging Studies Chest X-Ray 01/13/21 00:45 IMPRESSION: Cannot exclude bilateral pneumonitis versus vascular crowding. Recommend follow-up with 2 views of the chest when clinically feasible. Electronically Signed: Tana Hunter MD at 1:53 EDT , Service support , Discharge Plan Triage Chief Complaint: Shortness of Breath ED Provider: Lance Loja Dx/Rx/DC Orders Clinical Impression: Pneumonia due to COVID-19 virus, Hypoxemia Instructions: Coronavirus Disease 2019 (COVID-19): Caring for Yourself or Others Prescriptions: New dexamethasone 6 MG tablet 6 mg PO DAILY Qty: 6 RF: 0 Continued metoprolol tartrate 100 mg Tablet 100 mg PO DAILY RF: 0 hydrocodone-acetaminophen 5-325 mg Tablet 1 tab PO Q6H PRN (Reason: Pain) RF: 0 omeprazole 40 mg Capsule,Delayed Release(Dr/Ec) 40 mg PO DAILY RF: 0 triamterene-hydrochlorothiazid 37.5-25 mg Capsule 1 cap PO DAILY RF: 0 levothyroxine [Synthroid] 88 mcg Tablet 88 mcg PO DAILY RF: 0 potassium chloride 20 mEq tablet,ER particles/crystals 60 meq PO DAILY RF: 0 hydroxychloroquine 200 mg Tablet 200 mg PO DAILY RF: 0 [place] 12.5 mg Tablet 12.5 mg PO BID RF: 0 buprenorphine [Butrans] 20 mcg/hour Patch Weekly 1 patch TRANSDERMAL QWEEK RF: 0 Orencia 125 mg/mL Syringe 125 mg SUBCUT QWEEK RF: 0 Held prednisone 5 mg Tablet 5 mg PO DAILY RF: 0 Hold Instructions: until your decadron is finished Primary Care Provider: John Batista Referrals: John Batista MD [Primary Care Provider] - As Needed Activity Restrictions/Additional Instructions: Closely watch your oxygen levels periodically. If you stay below 90% for more than a minute or so, and/or you are feeling like your breathing is getting worse and already have your oxygen up to 4 L, return to the emergency department for further evaluation as you may need to be admitted to the hospital for worsening Covid disease. Disposition Disposition: Home, Self Care
[2021-01-13 00:47] VITALS: O2SAT 96
[2021-01-13] MEDS: dexAMETHasone 10 MG/ML Vial 6 MG IV (00:49)
[2021-01-13 00:57] LABS: Absolute Lymphocyte Count 0.57 X10^3/uL (0.83-4.51); Absolute Neutrophil Count 5.4 X10^3/uL (2.0-7.7); Basophil# 0.01 X10^3/uL; Basophil% 0.2 % (0-1); Eosinophil# 0.02 X10^3/uL; Eosinophils% 0.3 % (0-5); Hematocrit 42.6 % (37-47); Hemoglobin 13.8 g/dL (12.0-15.0); Lymphocyte # 0.57 X10^3/ul (0.83-4.51); Lymphocyte % 8.7 % (19-41); Mean Corp Hgb Conc 32.4 g/dL (32-36); Mean Corpuscular Volume 89.5 fL (81-99); Mean Platelet Vol. 9.8 fl (6.2-12.0); Monocyte# 0.53 X10^3/uL; Monocyte% 8.1 % (0-10); NRBC Flagged by Analyzer 0 % (0-5); Neutrophil # 5.41 X10^3/uL (2.7-7.7); Neutrophil % 82.2 % (47-70); POSITIVE DIFFERENTIAL YES; Platelet Count 203 K/mm3 (150-450); RBC Distribution Width CV 13.5 % (11.6-14.6); RBC Distribution Width SD 44.7 fl (35.1-43.9); Red Blood Count 4.76 M/mm3 (4.2-5.4); White Blood Count 6.6 K/mm3 (4.4-11.0)
[2021-01-13 00:59] LABS: Differential Indicated SCAN CRITERIA MET
[2021-01-13 01:07] LABS: ALB/GLOB Ratio 0.7 RATIO (0.9-2.4); AST(SGOT) 45 U/L (15-37); Alanine Aminotransfer ALT/SGPT 37 U/L (13-56); Alkaline Phosphatase 162 U/L (45-117); Anion Gap 6 (5-15); BUN 25 mg/dL (7-18); BUN/Creat Ratio 20.7 RATIO (10-20); Calcium,Total 8.9 mg/dL (8.5-10.1); Chloride 101 mmol/L (98-107); Creatinine, Serum 1.21 mg/dL (0.55-1.02); EST Glomerular Filtration Rate 48 mL/min (>60); Est Glom Filt Rate - Afr Amer 58 mL/min (>60); Estimated Creatinine Clearance 43.38 ml/min; Globulin 4.4 g/dL (2.2-4.2); Glucose 110 mg/dL (74-106); Lactic Acid 1.2 mmol/L (0.4-1.9); Potassium 4.1 mmol/L (3.5-5.1); Protein, Total 7.4 g/dL (6.4-8.2); Sodium Level 137 mmol/L (136-145); Troponin-I HS 6 pg/mL (3.0-54.0)
[2021-01-13 01:08] VITALS: BP 121/75; PULSE 67; RESP 17; O2SAT 97
[2021-01-13 01:21] LABS: Differential Comment SCANNED
[2021-01-13 01:41] VITALS: O2SAT 92
[2021-01-13 02:48] VITALS: BP 112/64; PULSE 70; RESP 16; O2SAT 94
--- NOTE | 2021-01-13 02:49 | ED.RN ---
pt discharged home on 2l n/c. reviewed the home 02 guide with patient. denies any questions or concerns. [facility] has been notified.
== END 2021-01-13 02:50 | disposition home or self-care (01) ==
PROVIDERS: Emergency Provider Emergency Medicine; PCP Family Medicine
DX: U07.1 COVID-19 (principal); J12.82 Pneumonia due to coronavirus disease 2019; R09.02 Hypoxemia; I10 Essential (primary) hypertension; M19.90 Unspecified osteoarthritis, unspecified site; Z79.52 Long term (current) use of systemic steroids; Z79.899 Other long term (current) drug therapy
CPT/HCPCS: 71045; 80053; 83605; 84484; 85025; 87426; 96374; 99284; A4216

== ENCOUNTER 2021-03-18 15:32 | Outpatient (CLI) | payer BC, MEDICAID, SELFPAY ==
[2021-03-18 17:51] LABS: Absolute Lymphocyte Count 0.97 X10^3/uL (0.83-4.51); Absolute Neutrophil Count 10.2 X10^3/uL (2.0-7.7); Basophil# 0.05 X10^3/uL; Basophil% 0.4 % (0-1); Eosinophil# 0.13 X10^3/uL; Eosinophils% 1.1 % (0-5); Hematocrit 41.6 % (37-47); Hemoglobin 13.1 g/dL (12.0-15.0); Lymphocyte # 0.97 X10^3/ul (0.83-4.51); Mean Corp Hgb Conc 31.5 g/dL (32-36); Mean Corpuscular Hgb 28.7 pg (27.0-32.0); Mean Corpuscular Volume 91.2 fL (81-99); Mean Platelet Vol. 10.2 fl (6.2-12.0); Monocyte# 0.82 X10^3/uL; Monocyte% 6.7 % (0-10); NRBC Flagged by Analyzer 0 % (0-5); Neutrophil # 10.15 X10^3/uL (2.7-7.7); Neutrophil % 83.5 % (47-70); Platelet Count 336 K/mm3 (150-450); RBC Distribution Width CV 12.8 % (11.6-14.6); RBC Distribution Width SD 42.6 fl (35.1-43.9); Red Blood Count 4.56 M/mm3 (4.2-5.4); White Blood Count 12.2 K/mm3 (4.4-11.0)
[2021-03-18 18:06] LABS: ALB/GLOB Ratio 0.8 RATIO (0.9-2.4); AST(SGOT) 21 U/L (15-37); Alanine Aminotransfer ALT/SGPT 36 U/L (13-56); Albumin, Serum 3.2 g/dL (3.2-5.0); Alkaline Phosphatase 95 U/L (45-117); Anion Gap 6 (5-15); BUN 23 mg/dL (7-18); Calcium,Total 9.2 mg/dL (8.5-10.1); Chloride 106 mmol/L (98-107); Creatinine, Serum 0.96 mg/dL (0.55-1.02); EST Glomerular Filtration Rate 63 mL/min (>60); Est Glom Filt Rate - Afr Amer 76 mL/min (>60); Globulin 3.8 g/dL (2.2-4.2); Glucose 92 mg/dL (74-106); Potassium 4.1 mmol/L (3.5-5.1); Sodium Level 143 mmol/L (136-145)
== END 2021-03-18 23:59 | disposition short-term general hospital (02) ==
LOC: MTLAB 15:35
PROVIDERS: PCP Family Medicine; Referring Provider Internal Medicine Rheumatology; Visit Provider Internal Medicine Rheumatology
DX: M06.09 Rheumatoid arthritis without rheumatoid factor, multiple sites (principal); Z79.899 Other long term (current) drug therapy; M79.7 Fibromyalgia; R76.8 Other specified abnormal immunological findings in serum; K21.00 Gastro-esophageal reflux disease with esophagitis, without bleeding; I10 Essential (primary) hypertension; E03.9 Hypothyroidism, unspecified
CPT/HCPCS: 36415; 80053; 85025

== ENCOUNTER 2021-06-14 15:17 | Outpatient (CLI) | payer BC, MEDICAID, SELFPAY ==
[2021-06-14 17:24] LABS: Absolute Lymphocyte Count 1.34 X10^3/uL (0.83-4.51); Absolute Neutrophil Count 9.8 X10^3/uL (2.0-7.7); Basophil# 0.04 X10^3/uL; Basophil% 0.3 % (0-1); Eosinophils% 1.6 % (0-5); Hematocrit 43.7 % (37-47); Hemoglobin 13.8 g/dL (12.0-15.0); Lymphocyte # 1.34 X10^3/ul (0.83-4.51); Lymphocyte % 10.7 % (19-41); Mean Corp Hgb Conc 31.6 g/dL (32-36); Mean Corpuscular Hgb 29.1 pg (27.0-32.0); Mean Platelet Vol. 10.1 fl (6.2-12.0); Monocyte# 1.05 X10^3/uL; Monocyte% 8.4 % (0-10); NRBC Flagged by Analyzer 0 % (0-5); Neutrophil # 9.82 X10^3/uL (2.7-7.7); Neutrophil % 78.7 % (47-70); Platelet Count 318 K/mm3 (150-450); RBC Distribution Width CV 12.8 % (11.6-14.6); RBC Distribution Width SD 43.7 fl (35.1-43.9); Red Blood Count 4.75 M/mm3 (4.2-5.4); White Blood Count 12.5 K/mm3 (4.4-11.0)
[2021-06-14 17:42] LABS: ALB/GLOB Ratio 0.9 RATIO (0.9-2.4); AST(SGOT) 71 U/L (15-37); Alanine Aminotransfer ALT/SGPT 100 U/L (13-56); Albumin, Serum 3.4 g/dL (3.2-5.0); Alkaline Phosphatase 100 U/L (45-117); Anion Gap 5 (5-15); BUN 26 mg/dL (7-18); BUN/Creat Ratio 27.4 RATIO (10-20); Calcium,Total 8.9 mg/dL (8.5-10.1); Chloride 106 mmol/L (98-107); Creatinine, Serum 0.95 mg/dL (0.55-1.02); EST Glomerular Filtration Rate 63 mL/min (>60); Est Glom Filt Rate - Afr Amer 77 mL/min (>60); Globulin 3.6 g/dL (2.2-4.2); Glucose 96 mg/dL (74-106); Potassium 3.9 mmol/L (3.5-5.1); Sodium Level 141 mmol/L (136-145)
== END 2021-06-14 23:59 | disposition home or self-care (01) ==
LOC: MTLAB 15:19
PROVIDERS: PCP Family Medicine; Referring Provider Internal Medicine Rheumatology; Visit Provider Internal Medicine Rheumatology
DX: M06.09 Rheumatoid arthritis without rheumatoid factor, multiple sites (principal); M79.7 Fibromyalgia; R76.8 Other specified abnormal immunological findings in serum; K21.00 Gastro-esophageal reflux disease with esophagitis, without bleeding; I10 Essential (primary) hypertension; E03.9 Hypothyroidism, unspecified; Z79.899 Other long term (current) drug therapy
CPT/HCPCS: 36415; 80053; 85025

== ENCOUNTER 2021-09-03 14:00 | Outpatient (RCR) | payer BC, MEDICAID, SELFPAY ==
--- NOTE | 2021-07-19 16:25 | HP.PTEVAL_ITS ---
Patient's Visit Information SAVANNAH AGUIRRE is a 60 year old F referred to Physical Therapy by KAYCEE Villavicencio with a diagnosis of LUMBOSACRAL SPONDYLOSIS,LUMBOSACRAL STENOSIS ,DEGENERATIVE OF LS DISC. Date of Evaluation: 07/19/21 Physical Therapist: Mando Araiza, PT, Cert MDT, OCS - Visit Plan Frequency: 2x /Week Duration: 4 Weeks Plan: PT INTERVETIONS AQUATIC THERAPY FOR DLS ,POSTURAL EX'S,LE STRENGTHNEING , ACTIVITIES MODIFICATION TO INCLUDE LAND EX'S AND MODALTIES - Subjective This 60 y/o female presents to physical therapy with lumbar radiculopathy. Patient has had lumbar pain for several years which has gradually worsen over time. Patient has tried PT in past which has been unsuccessful. Patient seen DR Hopson pain management due to 2nd opinion with spine stimulator which DR Brice said it would help. Patient has had several epidural injections in past with last injection ~ last September .Although injections have stopped helping. Dr wants another MRI as well. Located lumbar symmetrical left > right with radicular symptoms to foot described as dull and intense sharp ,spasms. Aggravating walking ,standing ,lifting . Alleviating sitting reclined position ,rest. MEDS pain patch ,[place] , gabapentin . Patient c/o paresthesia/tingling left leg . Coughing/sneezing -> Bowel/bladder -. Pain can affects sleeping. Pain affects ability affects QOL and function and had to be on disability due to pain. SOCAIL: . VOCATION: Disability - Pain Bilateral Back Pain Intensity (Out of 10): 7 Pain Intensity Range: 10 Left Lower Extremity Pain Intensity (Out of 10): 8 Pain Intensity Range: 10 - Objective POSTURE: scoliosis left thoracic spine ,kyphosis ,increase lordosis ,asymmetries right leg shorter. PALPATION: tender LS/SI. NEURO: denies paresthesia/tingling ,reflexes L3-4,L4-5,L5-S1 1/3. GAIT: reciprocal pattern. MMT(peak force) :left quads 28.8,hamstriings 26,7,hip flexion 10.8 ,right 4/5. LUMBAR ROM: flexion min loss ,extension mod loss, side glides min loss. FLEXABLITY: hamstrings mod tight left ,right min/mod tight ,piriformis mod tight - Special Tests L/S Slump test left side: Negative L/S Slump test right side: Negative L/S Left Straight Leg Raise: Negative L/S Right Straight Leg Raise: Negative Lumbar Standing: Flexion - Mechanical Response: No effect Lumbar Standing: Flexion - Symptoms During Testing: No effect Lumbar Standing: Flexion - Symptoms After Testing: No effect Lumbar Standing: Extension - Mechanical Response: No effect Lumbar Standing: Extension - Symptoms During Testing: Increases Lumbar Standing: Extension - Symptoms After Testing: No worse Lumbar Standing: Right Side Glides - Mechanical Response: No effect Lumbar Standing: Right Side [place] - Symptoms During Testing: No effect Lumbar Standing: Right Side [place] - Symptoms After Testing: No effect Lumbar Standing: Left Side [place] - Mechanical Response: No effect Lumbar Standing: Left Side [place] - Symptoms During Testing: No effect Lumbar Standing: Left Side [place] - Symptoms After Testing: No effect - Balance/Special Test Scores Oswestry Low Back Score: 33 - Goals Goal 1:: Patient to be I with HEP and Aquatic therapy Goal Time Frame: 4-6 Weeks Goal 2:: Patient to demonstrate 50% improvement with improved function and decrease pain Goal Time Frame: 4-6 Weeks Goal 3:: Patient to improve lumbar ROM for function of recovery to put on shoes Goal Time Frame: 4-6 Weeks Goal 4:: Patient to improve strength peak force of left quads/hams/hip by 5 to improve gait Goal Time Frame: 4-6 Weeks Goal 5:: Patient to improve back oswestry score by 5 points or > to improve function Goal Time Frame: 4-6 Weeks - Rehabilitation Potential Physical Therapy Diagnosis: This patient has lumbar radiculopathy with left leg with pain with positioning, motion testing ,weakness left leg impairs ability with walking and standing thus benefit from skilled PT Rehabilitation Potential: Good - Anticipated Interventions Patient/Client Instruction: Educate patient on: Condition, Plan of Care For the Purpose of:: To decrease pain, To increase ROM, To improve muscle performance and motor function, To improve ability to perform ADL's, To increase tolerance to activity/condition/position, To improve ability of physical actions for home/community/work/leisure, To improve health of tissue, To decrease soft tissue restriction, To increase flexibility/ROM, To reduce risk of recurrence, To prevent re-injury, To improve tolerance to ADL's Therapeutic Exercise to Include: Strength training, Endurance training, Postural training, Flexibilty training, In an aquatic setting, Active ROM, Dynamic Lumbar Stabilization Comment: BLE For the Purpose of:: To decrease pain, To increase ROM, To improve muscle performance and motor function, To improve ability to perform ADL's, To increase tolerance to activity/condition/position, To improve ability of physical actions for home/community/work/leisure, To improve gait and locomotor functions, To improve health of tissue, To decrease soft tissue restriction, To increase flexibility/ROM, To reduce risk of recurrence, To improve health and function, To improve tolerance to ADL's TENS: Yes IF ES: Yes Cryotherapy (ice pack, ice massage): Yes Thermo therapy (hot pack): Yes Ultrasound (thermal/non thermal): Yes For the Purpose of:: To decrease pain, To improve nutrient delivery to tissue, To increase oxygenation perfusion, To improve health of tissue, To decrease soft tissue restriction Thank you for the opportunity to evaluate your patient. For Medicare and Medicare HMO plans, please review the plan of care and approve it. It will need to be FAXED BACK to us at [phone] for Medicare purposes. For Medicare only, by signing this I certify the plan of care. Please let me know if there are questions or concerns regarding this plan of care. Physician Signature: Date:
--- NOTE | 2021-09-04 15:48 | HP.PTDCSUM ---
It has been my pleasure to treat SAVANNAH AGUIRRE referred by KAYCEE Villavicencio, with the diagnosis of LUMBOSACRAL SPONDYLOSIS,LUMBOSACRAL STENOSIS ,DEGENERATIVE OF LS DISC for a total of 8 visit(s). Discharge Date: Please see the following information for a summary of their discharge status. Subjective: Symptoms not better with Aquatic ex's . Located lower back radiating left thigh to knee occasional below knee ,but spasms. Walking and standing standing. Seen DR LAST WEEK goal is to get MRI ordered. Injections dont help anymore Bilateral Back Pain Intensity (Out of 10): 5 Left Lower Extremity Pain Intensity (Out of 10): 5 Objective/Function: POSTURE: mild forward posture. GAIT: reciprocal pattern. LUMBAR ROM: flexion mod limited ,extension min/mod loss ,side glides min/mod loss. MMT: right quads/hams/hip/ankle 4/5,left hip flexion 4-/5-3+/5 otherwise quads/hams 4/5,ankle 4/5 Goal 1:: Patient to be I with HEP and Aquatic therapy Goal 2:: Patient to demonstrate 50% improvement with improved function and decrease pain Goal 3:: Patient to improve lumbar ROM for function of recovery to put on shoes Goal 4:: Patient to improve strength peak force of left quads/hams/hip by 5 to improve gait Goal 5:: Patient to improve back oswestry score by 5 points or > to improve function Plan: D/C RTD RECOMMEND MRI If there are questions or concerns regarding this patient's physical therapy, please feel free to call me at [phone]. Thank you for the referral of this patient. Sincerely, Mando Araiza, PT, Cert MDT, OCS Balance/Gait/Functional tests - Balance/Special Test Scores Oswestry Low Back Score: 33
== END 2021-09-03 19:00 | disposition home or self-care (01) ==
LOC: PT 14:00
PROVIDERS: PCP Family Medicine; Referring Provider Nurse Practitioner Family; Visit Provider Nurse Practitioner Family
DX: M51.17 Intervertebral disc disorders with radiculopathy, lumbosacral region (principal); M48.07 Spinal stenosis, lumbosacral region; M47.27 Other spondylosis with radiculopathy, lumbosacral region; M46.96 Unspecified inflammatory spondylopathy, lumbar region; M79.10 Myalgia, unspecified site
CPT/HCPCS: 97113; 97162; 97530

== ENCOUNTER → 2021-09-19 | Outpatient (CLI) | payer BC, MEDICAID, SELFPAY ==
--- NOTE | 2021-09-19 16:22 | MRI_ITS ---
STUDY: MRI LUMBAR SPINE WITHOUT CONTRAST REASON FOR EXAM: Female, 60 years old. DEGENERATION OF LUMBAR SPINE, LUMBO SACRAL STENOSIS TECHNIQUE: Standardized fat and water weighted pulse sequences were obtained in the sagittal and axial planes. COMPARISON: MRI lumbar spine without contrast 10/02/2017. FINDINGS: T10-T11: (Sagittal only). Normal T10 inferior endplate. Old anterior wedge compression fracture of the upper T11 vertebral body with a central Schmorl''s node are new findings. No ventral extradural defect. Normal central canal and bilateral intervertebral neural foramina. T11-T12: (Sagittal only). Normal T11 inferior endplate. Slight anterior wedging of T12 superior endplate is unchanged. Normal disc height, signal and morphology. No ventral extradural defect. Normal central canal and bilateral intervertebral neural foramina. T12-L1: (Sagittal only). Normal endplates. Pronounced disc space height narrowing. Midline ventral extra dural defect due to posterior bulging annulus is unchanged. Normal central canal and bilateral intervertebral neural foramina. Normal lumbar lordosis. Reverse S-shaped scoliosis of the lumbar spine has increased. Normal conus medullaris that terminates at the lower L1 vertebral body level. L1-2: Bridging anterior marginal spurs and pronounced right-sided degenerative disc space height narrowing are new findings. Mild ventral extradural defect extending into the right intervertebral neural foramen is a small right posterior foraminal disc protrusion. This is a new finding. No definite displacement of the right L1 nerve. Mild stenosis of the right intervertebral neural foramen. Normal central canal and bilateral lateral recesses. Normal left intervertebral neural foramen. L2-3: MODIC type II degenerative vertebral marrow fatty changes underneath the vertebral endplates towards the right side. Pronounced right-sided disc space height narrowing. Mild degenerative retrolisthesis of L2 on L3 is unchanged. Right foraminal disc protrusion causing moderate stenosis of the right intervertebral neural foramen. This is unchanged. Moderate left degenerative facet arthropathy. Mild right degenerative facet arthropathy. Mild central canal stenosis with an AP canal diameter of 9.5 mm. Normal bilateral lateral recesses. Normal left intervertebral neural foramen. This level is unchanged. L3-4: MODIC type II degenerative vertebral marrow fatty changes underneath the left side of the vertebral endplates. Pronounced left-sided disc space height narrowing. Prominent left foraminal disc protrusion causing pronounced stenosis of the left intervertebral neural foramen and impingement of the left L3 nerve. These were present previously and without significant change. Mild degenerative retrolisthesis of L3 on L4 is unchanged. Moderate left degenerative facet arthropathy. Mild right degenerative facet arthropathy. Mild central canal stenosis with an AP canal diameter of 9.5 mm is unchanged. Mild stenosis of the left lateral recesses unchanged. Normal right lateral recess. Normal right intervertebral neural foramen. L4-5: Moderate left-sided disc space height narrowing is a new finding. Normal endplates. Left foraminal disc protrusion is unchanged. Moderately pronounced stenosis of the left intervertebral neural foramen, previously moderate. Mild left iterative facet arthropathy. Normal right facet joint. Mild central canal stenosis with an AP canal diameter of 9.2 mm. Mild stenosis of the left lateral recess. Normal right lateral recess. Normal right intervertebral neural foramen. L5-S1: Normal endplates. Normal disc height, hydration and morphology. Mild bilateral degenerative facet arthropathy. Normal central canal and bilateral lateral recesses. Normal bilateral intervertebral neural foramina. Normal visualized sacral ala. Normal visualized paraspinous soft tissue structures. MRI/Spine Lumbar (Routine) IMPRESSION: 1. Interval development of old anterior wedge compression fracture of the upper T11 vertebral body. 2. Mild increase of her sedation scoliosis of the lumbar spine. 3. Small right L1-L2 posterior foraminal disc protrusion causing moderate stenosis of the right intervertebral neural foramen. This is a new finding. 4. Right L2-L3 foraminal disc protrusion causing moderate stenosis of the right intervertebral neural foramen, minimal degenerative retrolisthesis of L2 on L3 and mild central canal stenosis. This level is unchanged. 5. Prominent left L3-L4 foraminal disc protrusion causing pronounced stenosis of the left intervertebral neural foramen and impingement of the left L3 nerve and mild degenerative retrolisthesis of L3 on L4. These are unchanged. 6. Left L4-L5 foraminal disc protrusion is unchanged. Moderately pronounced stenosis of the left L4-5 intervertebral neural foramen, previously moderate. Electronically Signed: Jeremiah Campos MD at 10:30 EDT ,
== END | disposition home or self-care (01) ==
PROVIDERS: PCP Family Medicine; Visit Provider Nurse Practitioner Family
DX: M47.817 Spondylosis without myelopathy or radiculopathy, lumbosacral region (principal); M46.98 Unspecified inflammatory spondylopathy, sacral and sacrococcygeal region; M51.37 Other intervertebral disc degeneration, lumbosacral region; M48.07 Spinal stenosis, lumbosacral region
CPT/HCPCS: 72148

== ENCOUNTER → 2021-12-12 | Outpatient (CLI) | payer BC, MEDICAID, SELFPAY ==
[2021-12-12 17:40] LABS: Absolute Lymphocyte Count 1.72 X10^3/uL (0.83-4.51); Basophil# 0.04 X10^3/uL; Basophil% 0.5 % (0-1); Eosinophil# 0.23 X10^3/uL; Eosinophils% 2.8 % (0-5); Hematocrit 42.1 % (37-47); Hemoglobin 13.6 g/dL (12.0-15.0); Lymphocyte # 1.72 X10^3/ul (0.83-4.51); Lymphocyte % 21.2 % (19-41); Mean Corp Hgb Conc 32.3 g/dL (32-36); Mean Corpuscular Volume 92.7 fL (81-99); Mean Platelet Vol. 10.5 fl (6.2-12.0); Monocyte# 1.07 X10^3/uL; Monocyte% 13.2 % (0-10); NRBC Flagged by Analyzer 0 % (0-5); Neutrophil # 5.03 X10^3/uL (2.7-7.7); Neutrophil % 61.9 % (47-70); Platelet Count 328 K/mm3 (150-450); RBC Distribution Width SD 44.3 fl (35.1-43.9); Red Blood Count 4.54 M/mm3 (4.2-5.4); White Blood Count 8.1 K/mm3 (4.4-11.0)
[2021-12-12 18:33] LABS: AST(SGOT) 24 U/L (15-37); Alanine Aminotransfer ALT/SGPT 30 U/L (13-56); Albumin, Serum 3.5 g/dL (3.2-5.0); Alkaline Phosphatase 75 U/L (45-117); Anion Gap 6 (5-15); BUN 26 mg/dL (7-18); BUN/Creat Ratio 21.1 RATIO (10-20); Calcium,Total 9.2 mg/dL (8.5-10.1); Chloride 109 mmol/L (98-107); Creatinine, Serum 1.23 mg/dL (0.55-1.02); EST Glomerular Filtration Rate 47 mL/min (>60); Est Glom Filt Rate - Afr Amer 57 mL/min (>60); Globulin 3.5 g/dL (2.2-4.2); Glucose 106 mg/dL (74-106); Sodium Level 143 mmol/L (136-145)
== END | disposition home or self-care (01) ==
LOC: MTLAB 14:45
PROVIDERS: PCP Family Medicine; Referring Provider Internal Medicine Rheumatology; Visit Provider Internal Medicine Rheumatology
DX: M06.09 Rheumatoid arthritis without rheumatoid factor, multiple sites (principal); M79.7 Fibromyalgia; R76.8 Other specified abnormal immunological findings in serum; K21.00 Gastro-esophageal reflux disease with esophagitis, without bleeding; I10 Essential (primary) hypertension; E03.9 Hypothyroidism, unspecified; Z79.899 Other long term (current) drug therapy
CPT/HCPCS: 36415; 80053; 85025

== ENCOUNTER → 2022-03-24 | Outpatient (CLI) | payer MEDICARE, MEDICAID, SELFPAY ==
[2022-03-24 12:37] LABS: T4 Free Direct 1.26 ng/dL (0.76-1.46); Thyroid Stim Hormone (TSH) 1.37 uIU/mL (0.358-3.74)
== END | disposition home or self-care (01) ==
LOC: BFHLAB 09:18
PROVIDERS: PCP Family Medicine; Visit Provider Family Medicine
DX: E03.9 Hypothyroidism, unspecified (principal)
CPT/HCPCS: 36415; 84439; 84443

== ENCOUNTER → 2022-05-09 | Outpatient (CLI) | payer MEDICARE, MEDICAID, SELFPAY | END | disposition home or self-care (01) | LOC: LABSPEC 14:38 | PROVIDERS: PCP Family Medicine; Visit Provider Family Medicine | DX: S21.209A Unspecified open wound of unspecified back wall of thorax without penetration into thoracic cavity, initial encounter (principal); X58.XXXA Exposure to other specified factors, initial encounter | CPT/HCPCS: 87070; 87077; 87186; 87205 ==

== ENCOUNTER → 2022-05-10 | Outpatient (CLI) | payer MEDICARE, MEDICAID, SELFPAY ==
[2022-05-10 09:43] LABS: Absolute Neutrophil Count 4.1 X10^3/uL (2.0-7.7); Basophil# 0.05 X10^3/uL; Basophil% 0.7 % (0-1); Eosinophil# 0.35 X10^3/uL; Hematocrit 39.5 % (37-47); Hemoglobin 12.7 g/dL (12.0-15.0); Lymphocyte % 21.4 % (19-41); Mean Corp Hgb Conc 32.2 g/dL (32-36); Mean Corpuscular Hgb 28.5 pg (27.0-32.0); Mean Corpuscular Volume 88.8 fL (81-99); Mean Platelet Vol. 10.1 fl (6.2-12.0); Monocyte# 0.97 X10^3/uL; Monocyte% 13.8 % (0-10); NRBC Flagged by Analyzer 0 % (0-5); Neutrophil # 4.12 X10^3/uL (2.7-7.7); Neutrophil % 58.8 % (47-70); Platelet Count 329 K/mm3 (150-450); RBC Distribution Width CV 12.3 % (11.6-14.6); RBC Distribution Width SD 39.9 fl (35.1-43.9); Red Blood Count 4.45 M/mm3 (4.2-5.4)
[2022-05-10 09:54] LABS: ALB/GLOB Ratio 0.9 RATIO (0.9-2.4); AST(SGOT) 32 U/L (15-37); Alanine Aminotransfer ALT/SGPT 30 U/L (13-56); Albumin, Serum 3.3 g/dL (3.2-5.0); Alkaline Phosphatase 85 U/L (45-117); Anion Gap 5 (5-15); BUN 29 mg/dL (7-18); BUN/Creat Ratio 26.1 RATIO (10-20); Calcium,Total 9.7 mg/dL (8.5-10.1); Chloride 107 mmol/L (98-107); Creatinine, Serum 1.11 mg/dL (0.55-1.02); EST Glomerular Filtration Rate 53 mL/min (>60); Est Glom Filt Rate - Afr Amer 64 mL/min (>60); Globulin 3.7 g/dL (2.2-4.2); Glucose 91 mg/dL (74-106); Potassium 4.1 mmol/L (3.5-5.1); Sodium Level 140 mmol/L (136-145)
== END | disposition home or self-care (01) ==
PROVIDERS: PCP Family Medicine; Visit Provider Family Medicine
DX: S31.000A Unspecified open wound of lower back and pelvis without penetration into retroperitoneum, initial encounter (principal); N18.31 Chronic kidney disease, stage 3a; I12.9 Hypertensive chronic kidney disease with stage 1 through stage 4 chronic kidney disease, or unspecified chronic kidney disease
CPT/HCPCS: 36415; 80053; 82533; 85025

== ENCOUNTER → 2022-05-29 | Outpatient (CLI) | payer MEDICARE, MEDICAID, SELFPAY ==
[2022-05-29 18:36] LABS: Erythrocyte Sedimentation Rate 12 mm/hr (0-30)
[2022-05-29 18:50] LABS: CRP 9.12 mg/L (0.0-3.0)
== END | disposition home or self-care (01) ==
LOC: BFHLAB 14:52
PROVIDERS: PCP Family Medicine; Referring Provider Family Medicine; Visit Provider Family Medicine
DX: M06.00 Rheumatoid arthritis without rheumatoid factor, unspecified site (principal); R53.83 Other fatigue
CPT/HCPCS: 36415; 82533; 85652; 86140

== ENCOUNTER 2022-06-01 13:35 | Inpatient (IN) | payer MEDICARE, MEDICAID, SELFPAY ==
[2022-06-01 13:36] VITALS: BP 154/67; PULSE 56; RESP 16; TEMP 36.5; O2SAT 99; BMI 34.5
--- NOTE | 2022-06-01 13:50 | CT_ITS ---
INDICATION: infected EXAMINATION: CT ABDOMEN AND PELVIS WITH CONTRAST - CT Abdomen And Pelvis W/ Contrast Injection TECHNIQUE: Helically acquired images were obtained of the abdomen and pelvis following IV contrast. A radiation dose optimization technique was used for this scan. IV Contrast dosage and agent: Oral contrast: None. COMPARISON: None. FINDINGS: LOWER CHEST: Lung bases are clear. No cardiomegaly or pericardial effusion. LIVER: Homogeneous. No focal mass. GALLBLADDER AND BILIARY TREE: Status post cholecystectomy. No intra- or extrahepatic biliary ductal dilation. PANCREAS: No focal cystic or solid mass. SPLEEN: Normal size without focal cystic or solid mass. ADRENAL GLANDS: No nodules. KIDNEYS AND URETERS: Normal renal size and position. No hydronephrosis. PERITONEUM: No ascites or free air. No other fluid collection. BOWEL: Moderate sized hiatal hernia. No evidence of acute appendicitis. No stomach or bowel distension. No focal inflammatory change. LYMPH NODES: No enlarged mesenteric or retroperitoneal lymph nodes. VESSELS: Aorta is non-dilated. URINARY BLADDER: Unremarkable. REPRODUCTIVE ORGANS: History versus atrophic uterus. ABDOMINAL WALL: No discrete abdominal or pelvic wall hernia. BONES: Moderate levoscoliosis of the thoracolumbar spine with severe degenerative disc disease L1-L4 moderate degenerative disc disease L4-S1. Spinal stimulator demonstrates 2 leads entering the spinal canal at L1-2. There is soft tissue density surrounding both leads in the subcutaneous tissues at the L1-2 level. This could represent phlegmon or hematoma related to lead placement. Correlation advised. Discrete abscess not visualized. CT/Abdomen/Pelvis WITH Contrast IMPRESSION: Spinal stimulator with 2 leads entering the spinal canal at L1-2. Soft tissue density surrounds leads in the subcutaneous tissues at this level suggestive of phlegmon or hematoma. Correlation advised. Levoscoliosis. Moderate sized hiatal hernia. Status post cholecystectomy. Hysterectomy versus atrophic uterus. Degenerative changes lumbar spine. Electronically Signed: Pk Olmstead MD, JERRY at 15:33 EDT ,
--- NOTE | 2022-06-01 13:57 | EX.ED.DYSGE1 ---
HPI History of Present Illness Chief Complaint: Fever Informant: patient Onset/Context/Timing Onset: Today Narrative Narrative: Patient presents with fever and concern for infection of her stimulator site. She had a spinal stimulator placed in March by Dr. Hopson. She states about a month ago the area was infected. They went back in and washed out the site. Patient states her culture was positive for Pseudomonas. She thought things been healing well, however over the last day or 2 she had increased pain around the stimulator site and today has noted some red streaks and had a temperature of 99.7. She has no other source of infection. She denies cough or congestion. She has no urinary symptoms. No vomiting or diarrhea. [facility] Medical History Arthritis Chronic pain Fibromyalgia Migraines Rheumatoid arthritis Home Medications abatacept 125 mg/mL subcutaneous syringe (Orencia) 125 mg subcut QWEEK 01/13/21 [History Last Taken Unknown] buprenorphine 20 mcg/hour weekly transdermal patch (Butrans) 1 patch transdermal QWEEK 01/13/21 [History Last Taken Unknown] dexamethasone 6 mg tablet 6 mg PO DAILY #6 tabs 01/13/21 [Rx Last Taken Unknown] hydrocodone-acetaminophen 5-325mg 5mg-325mg 1 tab PO Q6H PRN Pain 01/13/21 [History Last Taken Unknown] hydroxychloroquine 200 mg tablet 200 mg PO DAILY 01/13/21 [History Last Taken Unknown] levothyroxine 88 mcg tablet (Synthroid) 88 mcg PO DAILY 01/13/21 [History Last Taken Unknown] metoprolol tartrate 100 mg tablet 100 mg PO DAILY 01/13/21 [History Last Taken Unknown] milnacipran 12.5 mg tablet (Savella) 12.5 mg PO BID 01/13/21 [History Last Taken Unknown] omeprazole 40 mg capsule,delayed release 40 mg PO DAILY 01/13/21 [History Last Taken Unknown] potassium chloride 20 mEq tablet,extended release(part/cryst) 60 meq PO DAILY 01/13/21 [History Last Taken Unknown] prednisone 5 mg tablet 5 mg PO DAILY 01/13/21 [History Last Taken Unknown] triamterene 37.5 mg-hydrochlorothiazide 25 mg capsule 1 cap PO DAILY 01/13/21 [History Last Taken Unknown] gabapentin 400 mg capsule ea PO 05/08/21 [History Last Taken Unknown] Allergy/AdvReac Type Severity Reaction Status Date / Time oxycodone Allergy Rash Verified 03/19/20 23:42 Penicillins [PCN] Allergy Unknown Verified 03/19/20 23:42 Tetracyclines Allergy Rash Verified 03/19/20 23:42 Family History Mother Hypertension Surgical History History of carpal tunnel release Hx of cholecystectomy Hx of hysterectomy Hx of thyroidectomy Hx of tonsillectomy Social History Smoking Status: Never smoker ROS ROS ED Constitutional Constitutional ED: Reports chills and fever(s) Eyes Eyes: Reports discharge from eye(s); Denies change in vision ENT ENT ED: Reports discharge from eye(s); Denies rhinorrhea or sore throat Cardiovascular Cardiovascular: Denies chest pain or palpitations Respiratory/Chest Respiratory/Chest: Denies cough or dyspnea Gastrointestinal Gastrointestinal: Denies abdominal pain, diarrhea, nausea or vomiting Genitourinary Genitourinary ED: Denies difficulty urinating or dysuria Musculoskeletal Musculoskeletal: Reports back pain; Denies extremity pain Integumentary Denies Abrasions or rash Neurologic Neurologic: Denies headache(s) or weakness Psychiatric Psychiatric: Denies anxiety or depression Allergic/Immunologic Allergic/Immunologic ED: Denies lip swelling or urticaria EXAM Physical Exam Const Vital Signs: 06/01/22 13:36 Temperature 97.7 F L Temperature Source Temporal Pulse Rate 56 L Respiratory Rate 16 Blood Pressure 154/67 H Blood Pressure Mean 96 Pulse Ox 99 Oxygen Delivery Method Room Air Positive well nourished and well developed General Appearance ED: well developed HEENT Reports normocephalic and head/scalp atraumatic Eyes PERRL and EOMs intact bilaterally Neck supple Chest Wall inspection of chest normal and palpation of chest normal Resp normal respiratory effort and clear to auscultation bilaterally Cardio regular rate and regular rhythm GI normal to inspection, nondistended, normoactive bowel sounds Palpation: soft Back/Spine Back/Spine Narrative: Mild tenderness over the spinal stimulator site. No open wounds noted. Mild redness noted over her lower back with no definitive line demarcating the area. Extremity normal to inspection Neuro oriented x3 and no sensory deficits noted Sensorium / Orientation: alert Motor Exam: strength 5/5 throughout Psych mental status grossly normal MDM MDM MDM Narrative Medical decision making narrative: Labwork obtained to evaluate for leukocytosis, anemia, and electrolyte derangement. CT scan of the abdomen pelvis with IV contrast ordered. Lab Data Attestation: I reviewed the patient's lab results. Labs: Laboratory Results - last 24 hr 06/01/22 06/01/22 06/01/22 14:00 14:00 14:00 WBC 10.6 RBC 4.75 Hgb 13.2 Hct 41.7 MCV 87.8 MCH 27.8 MCHC 31.7 L RDW Std Deviation 39.4 RDW Coeff of Hiro 12.2 Plt Count 318 MPV 9.9 Immature Gran % (Auto) 0.400 Neut % (Auto) 68.9 Lymph % (Auto) 13.4 L [place] % (Auto) 10.3 H Eos % (Auto) 6.3 H Baso % (Auto) 0.7 Absolute Neuts (auto) 7.3 Absolute Lymphs (auto) 1.42 Nucleated RBC % 0 ESR 26 Sodium 140 Potassium 4.2 Chloride 108 H Carbon Dioxide 28.0 Anion Gap 4 L BUN 22 H Creatinine 1.40 H Estim Creat Clear Calc 37.01 Est GFR (MDRD) Af Amer 49 L Est GFR (MDRD) Non-Af 40 L BUN/Creatinine Ratio 15.7 Glucose 87 Lactic Acid 1.3 Calcium 9.8 C-React Prot Ext Range 15.50 H Radiography Diagnostic Testing: Clinical Impression(s) from Imaging Studies Abdomen/Pelvis CT 06/01/22 13:50 IMPRESSION: Spinal stimulator with 2 leads entering the spinal canal at L1-2. Soft tissue density surrounds leads in the subcutaneous tissues at this level suggestive of phlegmon or hematoma. Correlation advised. Levoscoliosis. Moderate sized hiatal hernia. Status post cholecystectomy. Hysterectomy versus atrophic uterus. Degenerative changes lumbar spine. Electronically Signed: Pk Olmstead MD, JERRY at 15:33 EDT Reading Location ID and State: [facility] / [place] Tel , Service support , Treatment and Re-Evaluation :: CBC reveals normal white count at 10.6 with normal differential. Chemistry studies remarkable only for a BUN of 22 and a creatinine 1.4. This is only slightly elevated from her baseline. Lactic acid is normal at 1.3. CRP is elevated at 15.5 but sed rate is normal at 26. CT scan with IV contrast reveals soft tissue density surrounding the spinal stimulator leads in the subcutaneous tissue at L1 to where they leads enter the spinal canal. This could represent phlegmon or hematoma. I spoke with Dr. Wilson, the patient's pain management physician. Because the patient had recent Pseudomonas in her stimulator pocket, patient be covered with Cipro as well as Zosyn for more broad-spectrum coverage. He would like the patient admitted overnight and he will plan to take the patient for removal of her stimulator tomorrow. This is been discussed with the patient and she is in agreement with the plan. I will discuss with hospitalist for admission. 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 Prescriptions: No Action gabapentin 400 mg capsule PO Label Comments: take 1 capsule by mouth three times a day metoprolol tartrate 100 mg Tablet 100 mg PO DAILY hydrocodone-acetaminophen 5-325 mg Tablet 1 tab PO Q6H PRN (Reason: Pain) prednisone 5 mg Tablet 5 mg PO DAILY Hold Instructions: until your decadron is finished omeprazole 40 mg Capsule,Delayed Release(Dr/Ec) 40 mg PO DAILY triamterene-hydrochlorothiazid 37.5-25 mg Capsule 1 cap PO DAILY levothyroxine [Synthroid] 88 mcg Tablet 88 mcg PO DAILY potassium chloride 20 mEq tablet,ER particles/crystals 60 meq PO DAILY Label Comments: take 3 capsules by mouth once daily Rx Instructions: 40 IN AM, 20 QHS hydroxychloroquine 200 mg Tablet 200 mg PO DAILY Savella 12.5 mg Tablet 12.5 mg PO BID buprenorphine [Butrans] 20 mcg/hour Patch Weekly 1 patch TRANSDERMAL QWEEK Orencia 125 mg/mL Syringe 125 mg SUBCUT QWEEK dexamethasone 6 MG tablet 6 mg PO DAILY Qty: 6 0RF Primary Care Provider: Pk Donahue Referrals: Pk Donahue DO [Primary Care Provider] - Disposition Disposition: Acute Care [facility]
[2022-06-01 14:14] LABS: Erythrocyte Sedimentation Rate 26 mm/hr (0-30)
[2022-06-01 14:18] LABS: Absolute Lymphocyte Count 1.42 X10^3/uL (0.83-4.51); Absolute Neutrophil Count 7.3 X10^3/uL (2.0-7.7); Basophil# 0.07 X10^3/uL; Basophil% 0.7 % (0-1); Eosinophil# 0.66 X10^3/uL; Eosinophils% 6.3 % (0-5); Hematocrit 41.7 % (37-47); Hemoglobin 13.2 g/dL (12.0-15.0); Lymphocyte # 1.42 X10^3/ul (0.83-4.51); Lymphocyte % 13.4 % (19-41); Mean Corp Hgb Conc 31.7 g/dL (32-36); Mean Corpuscular Hgb 27.8 pg (27.0-32.0); Mean Corpuscular Volume 87.8 fL (81-99); Mean Platelet Vol. 9.9 fl (6.2-12.0); Monocyte# 1.09 X10^3/uL; Monocyte% 10.3 % (0-10); NRBC Flagged by Analyzer 0 % (0-5); Neutrophil # 7.28 X10^3/uL (2.7-7.7); Neutrophil % 68.9 % (47-70); Platelet Count 318 K/mm3 (150-450); RBC Distribution Width CV 12.2 % (11.6-14.6); RBC Distribution Width SD 39.4 fl (35.1-43.9); Red Blood Count 4.75 M/mm3 (4.2-5.4); White Blood Count 10.6 K/mm3 (4.4-11.0)
[2022-06-01 14:24] LABS: Anion Gap 4 (5-15); BUN 22 mg/dL (7-18); BUN/Creat Ratio 15.7 RATIO (10-20); Calcium,Total 9.8 mg/dL (8.5-10.1); Chloride 108 mmol/L (98-107); EST Glomerular Filtration Rate 40 mL/min (>60); Est Glom Filt Rate - Afr Amer 49 mL/min (>60); Estimated Creatinine Clearance 37.01 ml/min; Glucose 87 mg/dL (74-106); Potassium 4.2 mmol/L (3.5-5.1); Sodium Level 140 mmol/L (136-145)
[2022-06-01 14:43] LABS: Lactic Acid 1.3 mmol/L (0.4-1.9)
[2022-06-01 16:35] VITALS: BP 155/59; PULSE 53; RESP 18; TEMP 36.8; O2SAT 97
[2022-06-01] MEDS: Morphine 2 MG/ML Syringe IV (17:05)
--- NOTE | 2022-06-01 17:16 | PCM.HP.STD ---
HPI - General General Date of Admission: 06/01/22 Date of Service: 06/01/22 Chief Complaint: General achiness, lumbar back pain HPI Narrative SAVANNAH AGUIRRE, is a 61 F with a history of chronic pain with spinal stimulator implant in March and subsequent infection in early May with washout who presented to [facility] [place] 06/01/2022 with increasing pain around incision site. In the ED she had CRP mildly elevated and CT scan showed soft tissue density at L1 and the spinal canal. Her pain management physician Dr. Hopson contacted the ED and recommended admission, Cipro and Zosyn, and consult so he can remove the stimulator tomorrow inpatient. Hospitalist consulted for admission. Spoke with patient at bedside and she reports that she had a spinal stimulator in March and has had some generalized achiness but had significant problems earlier this month and was taken to the OR and had a washout. She had intraoperative cultures grew Pseudomonas and finished antibiotics last Thursday. Over the past several days she has had increasing pain in the area and feels she had noticed a red streak below it. Additionally noted her temperature at home to be 99.8 and she was concerned she was febrile. Additionally reports she is achy all over and touching anything is painful and she feels she is more sensitive to pain overall. Denies any draining from the incision site. She denies any numbness or tingling, no focal deficits, did have some constipation when she was on Bactrim that has resolved and denies any bowel or bladder problems. [facility] Medical History Arthritis Chronic pain Fibromyalgia Migraines Rheumatoid arthritis Home Medications buprenorphine 20 mcg/hour weekly transdermal patch (Butrans) 1 patch transdermal QWEEK PAIN 01/13/21 [History Last Taken 05/28/22] hydrocodone-acetaminophen 5-325mg 5mg-325mg 1 tab PO Q6H PRN Pain 01/13/21 [History Last Taken 06/01/22] hydroxychloroquine 200 mg tablet 200 mg PO DAILY 01/13/21 [History Last Taken 05/31/22] levothyroxine 88 mcg tablet (Synthroid) 88 mcg PO DAILY 01/13/21 [History Last Taken 06/01/22] omeprazole 40 mg capsule,delayed release 40 mg PO DAILY 01/13/21 [History Last Taken 06/01/22] potassium chloride 20 mEq tablet,extended release(part/cryst) 20 meq PO TID SUPPLEMENT 01/13/21 [History Last Taken 06/01/22] triamterene 37.5 mg-hydrochlorothiazide 25 mg capsule 1 cap PO DAILY 01/13/21 [History Last Taken 06/01/22] gabapentin 400 mg capsule 400 mg PO TID PAIN 05/08/21 [History Last Taken 06/01/22] cholecalciferol (vitamin D3) 125 mcg (5,000 unit) capsule 125 mcg PO DAILY SUPPLEMENT 06/01/22 [History Last Taken 06/01/22] magnesium 250 mg tablet 250 mg PO DAILY SUPPLEMENT 06/01/22 [History Last Taken 05/31/22] metoprolol succinate 100 mg tablet,extended release 24 hr 100 mg PO DAILY HTN 06/01/22 [History Last Taken 06/01/22] Allergy/AdvReac Type Severity Reaction Status Date / Time oxycodone Allergy Rash Verified 03/19/20 23:42 Tetracyclines Allergy Rash Verified 03/19/20 23:42 Family History Mother Hypertension Surgical History History of carpal tunnel release Hx of cholecystectomy Hx of hysterectomy Hx of thyroidectomy Hx of tonsillectomy Social History Smoking Status: Never smoker ROS ROS Narrative General: Has been generally achy and feels she had a fever HENT: Denies headache, denies stuffy nose, denies sore throat EYES: Denies changes in vision Resp: Denies cough, denies shortness of breath Cardiac: Denies chest pain GI: Denies abdominal pain, denies changes in bowel, denies nausea/vomiting : Denies changes in urination Extremity: Has had some progressive swelling in her bilateral lower extremities MSK: Denies weakness Neuro: Denies any numbness/tingling Heme: Denies any bleeding or bruising Skin: [place] maybe there is some redness below her incision site Psychiatric: No complaints voiced Vital Signs Vital Signs Vital Signs: 06/01/22 13:36 06/01/22 16:35 Temperature 97.7 F L 98.2 F Temperature Source Temporal Oral Pulse Rate 56 L 53 L Respiratory Rate 16 18 Blood Pressure 154/67 H 155/59 H Blood Pressure Mean 96 91 Pulse Ox 99 97 Oxygen Delivery Method Room Air Room Air Weight Weight: 94.166 kg Body Mass Index (BMI) 34.5 Physical Exam Narrative General: Alert, oriented, no apparent distress HEENT: Atraumatic, normocephalic Eyes: Anicteric, normal conjunctiva, extraocular movements grossly intact Neck: Supple Respiratory: Clear to auscultation bilaterally, normal respiratory effort Cardiovascular: Regular rate and rhythm GI: Soft, nontender, nondistended Extremities: 1+ bilateral lower extremity pitting edema Musculoskeletal: Moving all extremities Neuro: No overt focal neurological deficits Skin: No rashes appreciated, incision noted, has some warmth and erythema in the immediate surrounding area without drainage or fluctuance Psych: Cooperative Results Lab / Micro Data Result Diagrams: 06/01/22 14:00 06/01/22 14:00 Labs: Laboratory Results - last 24 hr 06/01/22 14:00: WBC 10.6, RBC 4.75, Hgb 13.2, Hct 41.7, MCV 87.8, MCH 27.8, MCHC 31.7 L, RDW Std Deviation 39.4, RDW Coeff of Hiro 12.2, Plt Count 318, MPV 9.9, Immature Gran % (Auto) 0.400, Neut % (Auto) 68.9, Lymph % (Auto) 13.4 L, [place] % (Auto) 10.3 H, Eos % (Auto) 6.3 H, Baso % (Auto) 0.7, Absolute Neuts (auto) 7.3, Absolute Lymphs (auto) 1.42, Nucleated RBC % 0, ESR 26 06/01/22 14:00: Sodium 140, Potassium 4.2, Chloride 108 H, Carbon Dioxide 28.0, Anion Gap 4 L, BUN 22 H, Creatinine 1.40 H, Estim Creat Clear Calc 37.01, Est GFR (MDRD) Af Amer 49 L, Est GFR (MDRD) Non-Af 40 L, BUN/Creatinine Ratio 15.7, Glucose 87, Calcium 9.8, C-React Prot Ext Range 15.50 H 06/01/22 14:00: Lactic Acid 1.3 Radiology Impression Abdomen/Pelvis CT 06/01/22 13:50 IMPRESSION: Spinal stimulator with 2 leads entering the spinal canal at L1-2. Soft tissue density surrounds leads in the subcutaneous tissues at this level suggestive of phlegmon or hematoma. Correlation advised. Levoscoliosis. Moderate sized hiatal hernia. Status post cholecystectomy. Hysterectomy versus atrophic uterus. Degenerative changes lumbar spine. 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 Hopson, n.p.o. at midnight #Chronic lumbar back pain -Continue oral as needed pain medication and buprenorphine patch, continue gabapentin -Will add as needed IV medication #CKD stage IIIb -Slight increase in creatinine though appears close to baseline -We will give some gentle hydration, no respiratory distress #Bilateral lower extremity swelling -We will obtain echocardiogram -No respiratory distress #Rheumatoid arthritis -Continue hydroxychloroquine #Hypothyroidism -Continue Synthroid -TSH in a.m. #DVT ppx: SCDs Maria E Strickland MD Time spent in the patient's overall evaluation,decision-making process, review of diagnostic data, adjustment of management, discussion with other providers, nursing nursing and ancillary staff involved in patient's care documentation, 60 minutes Charges/Coding Visit Charges Inpatient E&M: 23482 Init Hosp L2
--- NOTE | 2022-06-01 17:35 | ECHOD_ITS ---
Reason For Study: OTHER worsening BLE EDEMA Procedure This was a 2D Doppler, Color Flow transthoracic echocardiogram. Exam performed portable in patient room. Left Ventricle Normal LV size. Left ventricular systolic function is normal. The estimated ejection fraction is 65 %. Stage 2 diastolic dysfunction. No regional wall motion abnormalities noted. Right Ventricle Normal RV size. Normal systolic function. Atria Normal left atrium. Normal right atrium. Mitral Valve Normal mitral valve. Tricuspid Valve Normal tricuspid valve. Mild (1+) tricuspid valve insufficiency. Pulmonary artery systolic pressure is 28 mmHg. Aortic Valve Normal aortic valve. Pulmonic Valve Normal pulmonic valve. Great Vessels Normal aortic root. The pulmonary artery is normal size. Normal inferior vena cava. Pericardium/Pleural No pericardial effusion. MMode/2D Measurements & Calculations LVIDd: 4.9 cm IVSd: 0.80 cm Ao root diam: 3.2 cm LVIDs: 3.2 cm LVPWd: 0.87 cm RVDd: 2.9 cm FS: 34.6 % LAV(MOD-bp): 55.6 ml LVAd ap4: 25.0 cm2 LVAd ap2: 33.6 cm2 LAV(MOD-bp) Indexed: 27.9 ml/m2 LVLd ap4: 8.4 cm LVLd ap2: 8.8 cm LAV(MOD-sp2): 53.1 ml EDV(MOD-sp4): 61.8 ml EDV(MOD-sp2): 105.6 ml LAV(MOD-sp4): 50.5 ml EDV(sp4-el): 62.7 ml EDV(sp2-el): 108.7 ml LVAs ap4: 12.2 cm2 LVAs ap2: 17.0 cm2 LVLs ap4: 6.6 cm LVLs ap2: 6.4 cm ESV(MOD-sp4): 19.1 ml ESV(MOD-sp2): 37.0 ml ESV(sp4-el): 19.0 ml ESV(sp2-el): 38.1 ml EF(MOD-sp4): 69.1 % EF(MOD-sp2): 64.9 % EF(sp4-el): 69.7 % SV(MOD-sp4): 42.7 ml SV(MOD-sp2): 68.6 ml SV(sp4-el): 43.7 ml LA dimension(2D): 3.9 cm LA A4 area: 19.4 cm2 Time Measurements MV dec time: 0.24 sec Doppler Measurements & Calculations MV E max holland: 119.9 cm/sec Lat Peak E' [place]: 10.4 cm/sec Med Peak E' [place]: 11.5 cm/sec MV A max holland: 94.9 cm/sec E/E' lat: 11.5 E/E' med: 10.4 MV E/A: 1.3 Ao V2 max: 157.2 cm/sec LV V1 max: 135.2 cm/sec PA V2 max: 101.2 cm/sec Ao max P.9 mmHg LV V1 max P.3 mmHg Ao V2 mean: 103.0 cm/sec LV V1 mean P.6 mmHg Ao mean P.9 mmHg LV V1 mean: 89.4 cm/sec Ao V2 VTI: 35.1 cm LV V1 VTI: 27.9 cm AV (velocity ratio): 0.79 TR max holland: 247.7 cm/sec TR max P.5 mmHg ECHO/Echo Complete Interpretation Summary Normal LV size. Left ventricular systolic function is normal. The estimated ejection fraction is 65 %. Stage 2 diastolic dysfunction. Pulmonary artery systolic pressure is 28 mmHg. Ordering Physician: Maria E Strickland Referring Physician: Pk Donahue Performed By: Lynne Montoya, LUCIO, RVT
[2022-06-01 17:39] VITALS: BP 134/88; PULSE 60; RESP 18; TEMP 36.8; O2SAT 100; BMI 34.0
[2022-06-01] MEDS: 0.9% Normal Saline 1,000 ML 100 ML IV (17:54)
[2022-06-01] MEDS: Ciprofloxacin 400 MG/200 ML BAG 200 MG IV (17:54)
[2022-06-01] MEDS: Gabapentin 400 MG Capsule PO (20:28)
[2022-06-01 21:20] VITALS: BP 110/58; PULSE 60; RESP 16; TEMP 36.6; O2SAT 96
[2022-06-02] VITALS (13 sets, daily range): BP systolic 99–125; BP diastolic 51–74; PULSE 52–60; RESP 16; TEMP 36.5–37.3; O2SAT 92–99; BMI 34.0
--- NOTE | 2022-06-02 | FORE_PTH ---
PATIENT: SAVANNAH AGUIRRE LOC: MS3 U#:[id number] AGE/SX: 61/F ROOM: DE317 RE06/01/[address]: Dr. Maria E Strickland MD : 1960 BED: 1 DIS: 06/04/2022 SPEC #: [id number] RECD: 06/03/22 09:48 STATUS: JORDEN RECindy #: [id number] WENDY: 06/02/22 00:[address]: Josafat Villalobos DEPT: SURGICAL PATHOLOGY RECD BY: Jose Guadalupe Pozo ENTERED: 06/03/22 09:49 SP TYPE: FOREIGN B OTHR DR: MD Dr. Pk oGmez DO Dr. Paige Pierce, MD Dr. Robert Leininger, MD Tissues: A - FOREIGN BODY B - FOREIGN BODY Procedures: Surgery Specimen Level I Comments: @ Ordering doctor for EMILIA edited from to @ by RGOOD at 06/03/22 1447 @ Submitting doctor edited from to @ by RGOOD at 06/03/22 1447 HEADER OPERATION: Removal of spinal cord stimulator generator and leads PRE-OP DIAGNOSIS: Infection of spinal cord stimulator TISSUE SUBMITTED: A ? Spinal cord stimulator generator and leads, B - Spinal cord stimulator generator leads GROSS DIAGNOSIS A. Spinal cord stimulator generator and leads: Consistent with spinal cord stimulator generator and leads (gross only). B. Spinal cord stimulator generator leads: Consistent with leads (gross only). GROSS DESCRIPTION A - Received labeled with the patient's name and designated spinal cord stimulator generator and leads. The specimen consists of a metallic device consistent with spinal cord stimulator measuring 5.5 x 4.5 x 0.5 cm. Inscription of the specimen shows ?7------0, 15------8, SPEEDELOis with AdaptiveStim? and inscription on the other side shows ?[id number].? Leads are present measuring 22 cm in length. The specimen is for gross identification only. B - Received labeled with the patient's name and designated spinal cord stimulator generator leads. The specimen consists of two wires consistent with leads measuring 24.5 cm in length and 22.0 cm in length. The specimen is for gross identification only. / SJ:rg 06/03/2022 CPT: 03762 x2
--- NOTE | 2022-06-02 05:00 | RAD_ITS ---
INDICATION: preop EXAMINATION/TECHNIQUE: X-RAY - XR Chest 1 View COMPARISON: Chest radiograph 01/13/2021. Findings: Single frontal view of the chest. LUNG PARENCHYMA: Streaky left lung base airspace disease. PLEURA: No pleural effusion. No pneumothorax. HEART/GREAT VESSELS: Cardiomediastinal silhouette is unremarkable. BONES: Thoracic spine neurostimulator leads in place. RAD/Chest 1 View (Portable) IMPRESSION: Streaky left lung base atelectasis versus other airspace disease, to include developing pneumonia. Recommend follow-up to resolution. Electronically Signed: Oscar Camarillo MD at 5:44 EDT ,
[2022-06-02] MEDS: Gabapentin 400 MG Capsule PO ×3 (05:02→22:29)
[2022-06-02] MEDS: Levothyroxine 88 MCG Tablet PO (05:02)
--- NOTE | 2022-06-02 06:00 | EKG12_ITS ---
Test Reason : AM EKG Blood Pressure : / mmHG Vent. Rate : 058 BPM Atrial Rate : 058 BPM P-R Int : 170 ms QRS Dur : 084 ms QT Int : 442 ms P-R-T Axes : 011 002 039 degrees QTc Int : 433 ms Sinus bradycardia Otherwise normal ECG When compared with ECG of 23-OCT-2011 06:57, QT has shortened Confirmed by POLO GÓMEZ, PAOLA ([id number]), assignment desk editor DAVY MAIN ([id number]) on 06/03/2022 9:10:39 AM Referred By: EDWARD Confirmed By:PAOLA CUELLAR MD
[2022-06-02 07:07] LABS: Absolute Lymphocyte Count 1.27 X10^3/uL (0.83-4.51); Absolute Neutrophil Count 4.4 X10^3/uL (2.0-7.7); Basophil# 0.04 X10^3/uL; Basophil% 0.6 % (0-1); Eosinophil# 0.51 X10^3/uL; Hematocrit 35.6 % (37-47); Hemoglobin 11.4 g/dL (12.0-15.0); Lymphocyte # 1.27 X10^3/ul (0.83-4.51); Lymphocyte % 17.5 % (19-41); Mean Corpuscular Hgb 27.8 pg (27.0-32.0); Mean Corpuscular Volume 86.8 fL (81-99); Monocyte# 1.03 X10^3/uL; Monocyte% 14.2 % (0-10); NRBC Flagged by Analyzer 0 % (0-5); Neutrophil # 4.38 X10^3/uL (2.7-7.7); Neutrophil % 60.6 % (47-70); Platelet Count 280 K/mm3 (150-450); RBC Distribution Width CV 12.3 % (11.6-14.6); RBC Distribution Width SD 39.6 fl (35.1-43.9); White Blood Count 7.2 K/mm3 (4.4-11.0)
[2022-06-02 07:46] LABS: ALB/GLOB Ratio 0.9 RATIO (0.9-2.4); AST(SGOT) 29 U/L (15-37); Alanine Aminotransfer ALT/SGPT 25 U/L (13-56); Albumin, Serum 2.9 g/dL (3.2-5.0); Alkaline Phosphatase 64 U/L (45-117); Anion Gap 7 (5-15); BUN 23 mg/dL (7-18); BUN/Creat Ratio 16.4 RATIO (10-20); Calcium,Total 9.1 mg/dL (8.5-10.1); Chloride 109 mmol/L (98-107); EST Glomerular Filtration Rate 40 mL/min (>60); Est Glom Filt Rate - Afr Amer 49 mL/min (>60); Estimated Creatinine Clearance 37.01 ml/min; Globulin 3.1 g/dL (2.2-4.2); Glucose 91 mg/dL (74-106); Potassium 3.9 mmol/L (3.5-5.1); Sodium Level 141 mmol/L (136-145); Thyroid Stim Hormone (TSH) 2.46 uIU/mL (0.358-3.74)
[2022-06-02] MEDS: Pantoprazole Sodium 40 MG Tablet PO (07:52)
[2022-06-02] MEDS: Triamterene 37.5MG/Hctz 25MG Capsule 1 CAP PO (07:52)
[2022-06-02 08:24] LABS: International Normalized Ratio 1.1
--- NOTE | 2022-06-02 10:38 | PCM.PN.HOSP ---
Reason for Visit Reason for Visit: Diagnoses Infection and inflammatory reaction due to implanted electronic neurostimulator of spinal cord, electrode (lead), initial encounter (06/01/22) Subjective Subjective Reports feeling the same today, no increased pain but still feels generally achy. Objective Data Objective Data Vital Signs: Vital Signs Temp Pulse Resp BP Pulse Ox O2 Del Method 99.2 F H 56 L 16 112/55 L 92 Room Air 06/02/22 08:51 06/02/22 08:51 06/02/22 08:51 06/02/22 08:51 06/02/22 08:51 06/02/22 08:51 Oxygen Delivery Method Room Air Weight: 92.9 kg Body Mass Index (BMI) 34.0 Intake & Output: Intake and Output for Last 24 Hours 05/31/22 06/01/22 06/02/22 23:59 23:59 23:59 Intake Total 250 / 690 1576.67 / 1576.67 Output Total 300 / 300 Balance 250 / 690 1276.67 / 1276.67 Lab / Micro Data Result Diagrams: 06/02/22 06:21 06/02/22 06:21 Labs: Laboratory Results - last 24 hr 06/01/22 14:00: WBC 10.6, RBC 4.75, Hgb 13.2, Hct 41.7, MCV 87.8, MCH 27.8, MCHC 31.7 L, RDW Std Deviation 39.4, RDW Coeff of Hiro 12.2, Plt Count 318, MPV 9.9, Immature Gran % (Auto) 0.400, Neut % (Auto) 68.9, Lymph % (Auto) 13.4 L, [place] % (Auto) 10.3 H, Eos % (Auto) 6.3 H, Baso % (Auto) 0.7, Absolute Neuts (auto) 7.3, Absolute Lymphs (auto) 1.42, Nucleated RBC % 0, ESR 06/01/22 14:00: Sodium 140, Potassium 4.2, Chloride 108 H, Carbon Dioxide 28.0, Anion Gap 4 L, BUN 22 H, Creatinine 1.40 H, Estim Creat Clear Calc 37.01, Est GFR (MDRD) Af Amer 49 L, Est GFR (MDRD) Non-Af 40 L, BUN/Creatinine Ratio 15.7, Glucose 87, Calcium 9.8, C-React Prot Ext Range 15.50 H 06/01/22 14:00: Lactic Acid 1.3 06/02/22 06:21: WBC 7.2, RBC 4.10 L, Hgb 11.4 L, Hct 35.6 L, MCV 86.8, MCH 27.8, MCHC 32.0, RDW Std Deviation 39.6, RDW Coeff of Hiro 12.3, Plt Count 280, MPV 10.0, Immature Gran % (Auto) 0.100, Neut % (Auto) 60.6, Lymph % (Auto) 17.5 L, [place] % (Auto) 14.2 H, Eos % (Auto) 7.0 H, Baso % (Auto) 0.6, Absolute Neuts (auto) 4.4, Absolute Lymphs (auto) 1.27, Nucleated RBC % 0 06/02/22 06:21: PT 14.0, INR 1.1 06/02/22 06:21: Sodium 141, Potassium 3.9, Chloride 109 H, Carbon Dioxide 25.0, Anion Gap 7, BUN 23 H, Creatinine 1.40 H, Estim Creat Clear Calc 37.01, Est GFR (MDRD) Af Amer 49 L, Est GFR (MDRD) Non-Af 40 L, BUN/Creatinine Ratio 16.4, Glucose 91, Calcium 9.1, Total Bilirubin 0.60, AST 29, ALT 25, Alkaline Phosphatase 64, C-React Prot Ext Range 17.90 H, Total Protein 6.0 L, Albumin 2.9 L, Globulin 3.1, Albumin/Globulin Ratio 0.9, TSH 2.46 Radiography Diagnostic Testing: Radiology Impression Abdomen/Pelvis CT 06/01/22 13:50 IMPRESSION: Spinal stimulator with 2 leads entering the spinal canal at L1-2. Soft tissue density surrounds leads in the subcutaneous tissues at this level suggestive of phlegmon or hematoma. Correlation advised. Levoscoliosis. Moderate sized hiatal hernia. Status post cholecystectomy. Hysterectomy versus atrophic uterus. Degenerative changes lumbar spine. Electronically Signed: Pk Olmstead MD, JERRY at 15:33 EDT , Chest X-Ray 06/02/22 05:00 IMPRESSION: Streaky left lung base atelectasis versus other airspace disease, to include developing pneumonia. Recommend follow-up to resolution. Electronically Signed: Oscar Camarillo MD at 5:44 EDT , Physical Exam Narrative General: Alert, oriented, no apparent distress HEENT: Atraumatic, normocephalic Eyes: Anicteric, normal conjunctiva, extraocular movements grossly intact Neck: Supple Respiratory: Clear to auscultation bilaterally, normal respiratory effort Cardiovascular: Regular rate and rhythm GI: Soft, nontender, nondistended Extremities: 1+ bilateral lower extremity pitting edema Musculoskeletal: Moving all extremities Neuro: No overt focal neurological deficits Skin: No rashes appreciated, incision noted, has some warmth and erythema in the immediate surrounding area without drainage or fluctuance Psych: Cooperative Assessment & Plan Assessment/Plan (1) Infection of spinal cord stimulator: PLAN: Plan #Lumbar pain, 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 Hopson, n.p.o. at midnight -06/02: discussed w/ Dr. Hopson-advised infectious disease consult to assess possibility of IV antibiotics and not having to remove versus strong recommendation to remove. Consult placed, cultures pending, on broad-spectrum antibiotics. Patient to remain n.p.o. in the event she is able to be taken to the OR. #Chronic lumbar back pain -Continue oral as needed pain medication and buprenorphine patch, continue gabapentin -Will add as needed IV medication #CKD stage IIIb -Slight increase in creatinine though appears close to baseline -We will give some gentle hydration, no respiratory distress #Bilateral lower extremity swelling -We will obtain echocardiogram -No respiratory distress #Rheumatoid arthritis -Continue hydroxychloroquine #Hypothyroidism -Continue Synthroid -TSH wnl #DVT ppx: SCDs Maria E Strickland MD Time spent in the patient's overall evaluation,decision-making process, review of diagnostic data, adjustment of management, discussion with other providers, nursing nursing and ancillary staff involved in patient's care documentation, 30 minutes Charges/Coding Visit Charges Inpatient E&M: 85934 Subs Hosp L2
[2022-06-02] MEDS: Ciprofloxacin 400 MG/200 ML BAG 200 MG IV ×2 (10:41→20:59)
[2022-06-02] MEDS: HYDROcodone Bitartrate/Apap 5/325 Tablet PO ×2 (10:46→22:39)
--- NOTE | 2022-06-02 13:50 | CASEMGMT ---
RN?CM?DIRECTOR METABOLISM?CM?to room to meet with patient for initial transition planning/care coordination?assessment.?RN?CM?introduced self and role at [facility].? Pt voices understanding and consents to?assessment?at this time.? Pt resting in bed in no distress at this time.? Pt is A/O at this time and answers all questions appropriately.?? Care providers, pharmacy, and demographics verified/updated at this time. PCP: Dr Donahue Specialists:Dr Hopson-pain mgmt, Dr Brice-ortho, Dr Rosa-neurology. Pt states she used to see Dr Montanez, but does not see her any longer. Preferred Pharmacy: [facility] Retail Insurance: MCR, [employer] Prescription Benefit:?Yes Living Will/HPOA:? Pt does not currently have LW/HCPOA and would like to talk w/SW to complete. ONDINA, Iveth, made aware. Pt made aware, if SW unable to meet with her while @ [facility], this can be done as an OP. LNOK: daughter, Marry. 2 sons. Living Arrangements: Lives w/her grandson (27-yr-old) in 2-story home w/one step to enter. Pt states home is mostly [place], but she does have to go upstairs to shower. Indep w/ADL's and pt manages her own meds and appts. Grandson gets most of the groceries. Transportation:?Pt states drives self and states no transportation concerns at this time.?Grandson also drives. DME: ? Denies using any DME and denies needs.? HHC/SNF: No hx of either. No needs identified at this time. Denies need for HHC at this time, unless IV atb's needed @ d/c. CM to follow. Pt wishes to return home and states has no concerns with going home at time of discharge.??CM?to follow for any further discharge planning/needs.? Pt voices no further concerns/needs at this time.? Advised pt to ask for?CM?if any further questions/concerns/needs arise.? Voices understanding. PLAN:??Home. ID has been consulted. CM to follow for possible IV atb's @ d/c. Jaycob BARRIENTOSN?RN?CM
--- NOTE | 2022-06-02 14:48 | PCM.CONS.GEN ---
Assessment & Plan Assessment/Plan (1) Infection of spinal cord stimulator: PLAN: Culture earlier this month with pseudomonas. On zosyn/cipro here. Recommend device removal. D/w Dr. Hopson, and OR planned for today. Will follow, thank you HPI Consult Data Date of Consult: 06/02/22 HPI Narrative HPI Narrative: SAVANNAH AGUIRRE, is a 61 F with spinal cord stimulator placement in March, complicated by pseudomonas infection. Treated initially with doxy, then bactrim and cipro; had I&D done. Finished abx about a week ago, now admitted 06/01 due to several days increasing lower back pain, swelling, redness over device pocket and insertion site. Some mild fever. Came to ED, admitted on zosyn/cipro, feeling about the same. Full ROS performed and neg except as noted above PFSH Medical History Arthritis Chronic pain Fibromyalgia Hypertension Migraines Rheumatoid arthritis Home Medications buprenorphine 20 mcg/hour weekly transdermal patch (Butrans) 1 patch transdermal QWEEK PAIN 01/13/21 [History Last Taken 05/28/22] hydrocodone-acetaminophen 5-325mg 5mg-325mg 1 tab PO Q6H PRN Pain 01/13/21 [History Last Taken 06/01/22] hydroxychloroquine 200 mg tablet 200 mg PO DAILY 01/13/21 [History Last Taken 05/31/22] levothyroxine 88 mcg tablet (Synthroid) 88 mcg PO DAILY 01/13/21 [History Last Taken 06/01/22] omeprazole 40 mg capsule,delayed release 40 mg PO DAILY 01/13/21 [History Last Taken 06/01/22] potassium chloride 20 mEq tablet,extended release(part/cryst) 20 meq PO TID SUPPLEMENT 01/13/21 [History Last Taken 06/01/22] triamterene 37.5 mg-hydrochlorothiazide 25 mg capsule 1 cap PO DAILY Check with primary doctor 01/13/21 [History Last Taken 06/01/22] gabapentin 400 mg capsule 400 mg PO TID PAIN 05/08/21 [History Last Taken 06/01/22] cholecalciferol (vitamin D3) 125 mcg (5,000 unit) capsule 125 mcg PO DAILY SUPPLEMENT 06/01/22 [History Last Taken 06/01/22] magnesium 250 mg tablet 250 mg PO DINNER SUPPLEMENT 06/01/22 [History Last Taken 05/31/22] metoprolol succinate 100 mg tablet,extended release 24 hr 100 mg PO DINNER HTN 06/01/22 [History Last Taken 06/01/22] Allergy/AdvReac Type Severity Reaction Status Date / Time oxycodone Allergy Rash Verified 03/19/20 23:42 Tetracyclines Allergy Rash Verified 03/19/20 23:42 Family History Mother Hypertension Surgical History History of carpal tunnel release Hx of cholecystectomy Hx of hysterectomy Hx of thyroidectomy Hx of tonsillectomy Social History Smoking Status: Never smoker Physical Exam Const alert, oriented x3 and no apparent distress General Appearance: cooperative HEENT normocephalic and head/scalp atraumatic Eyes PERRL and EOMs intact bilaterally Neck supple and No nodes Resp normal air movement and clear to auscultation bilaterally Cardio regular rate and regular rhythm GI soft to palpation, non-tender and non-distended Extremity General Extremity: edema Skin Skin Narrative: R posterior hip device pocket and L1-L2 insertion site with tenderness, some redness and swelling. Neuro CN's II-XII intact bilaterally Lab / Micro Data Attestation: I reviewed the patient's lab results. Result Diagrams: 06/02/22 06:21 06/02/22 06:21 Labs: Laboratory Results - last 24 hr 06/02/22 06:21: WBC 7.2, RBC 4.10 L, Hgb 11.4 L, Hct 35.6 L, MCV 86.8, MCH 27.8, MCHC 32.0, RDW Std Deviation 39.6, RDW Coeff of Hiro 12.3, Plt Count 280, MPV 10.0, Immature Gran % (Auto) 0.100, Neut % (Auto) 60.6, Lymph % (Auto) 17.5 L, [place] % (Auto) 14.2 H, Eos % (Auto) 7.0 H, Baso % (Auto) 0.6, Absolute Neuts (auto) 4.4, Absolute Lymphs (auto) 1.27, Nucleated RBC % 0 06/02/22 06:21: PT 14.0, INR 1.1 06/02/22 06:21: Sodium 141, Potassium 3.9, Chloride 109 H, Carbon Dioxide 25.0, Anion Gap 7, BUN 23 H, Creatinine 1.40 H, Estim Creat Clear Calc 37.01, Est GFR (MDRD) Af Amer 49 L, Est GFR (MDRD) Non-Af 40 L, BUN/Creatinine Ratio 16.4, Glucose 91, Calcium 9.1, Total Bilirubin 0.60, AST 29, ALT 25, Alkaline Phosphatase 64, C-React Prot Ext Range 17.90 H, Total Protein 6.0 L, Albumin 2.9 L, Globulin 3.1, Albumin/Globulin Ratio 0.9, TSH 2.46 Radiology Impression Abdomen/Pelvis CT 06/01/22 13:50 IMPRESSION: Spinal stimulator with 2 leads entering the spinal canal at L1-2. Soft tissue density surrounds leads in the subcutaneous tissues at this level suggestive of phlegmon or hematoma. Correlation advised. Levoscoliosis. Moderate sized hiatal hernia. Status post cholecystectomy. Hysterectomy versus atrophic uterus. Degenerative changes lumbar spine. Electronically Signed: Pk Olmstead MD, JERRY at 15:33 EDT , Chest X-Ray 06/02/22 05:00 IMPRESSION: Streaky left lung base atelectasis versus other airspace disease, to include developing pneumonia. Recommend follow-up to resolution. Electronically Signed: Oscar Camarillo MD at 5:44 EDT ,
--- NOTE | 2022-06-02 15:43 | NURSING ---
pt to surgery
[2022-06-02] MEDS: Bacitracin 500 UNITS/GM PACKET ×2 (15:57→18:14)
[2022-06-02] MEDS: Lidocaine 2% (20 ml mdv) 20 ML Vial (16:55)
[2022-06-02] MEDS: Bupivacaine 0.25% 30 ML Vial (16:55)
--- NOTE | 2022-06-02 18:30 | OP.PCM_ITS ---
Report of Operation Date of Procedure: 06/02/22 Pre-Operative Diagnosis: Spinal cord stimulator mid back horizontal wound infec tion Post-Operative Diagnosis: Spinal cord stimulator mid back vertical incision wound infection, right gluteal spinal cord stimulator generator wound infection Surgery/Procedure Performed:: Removal of spinal cord stimulator leads, removal spinal cord stimulator generator at the right gluteal region, I&D of spinal cord stimulator right gluteal region horizontal incision Description of Surgical Findings:: History and physical today was reviewed risk and benefits of procedure were explained the patient understood agreed to procedure informed consent was obtained IV inserted per routine protocol patient was taken to the operating room placed in the prone position, IV Zosyn was infused by anesthesia prior to i ncision, the mid and lower back as well as the gluteal region area was prepped and draped in a sterile fashion using iodine x3 followed by Ioban sheath the skin and subcutaneous tissue and size were approximately 25 cc of a mix 50-50 of 0.25% Marcaine and 2% lidocaine preservative-free at the mid back vertical l incision and in the right gluteal region horizontal incision, using an 11-gauge blade the skin and subcutaneous tissue and is incised down to the fascia of the spinal cord stimulator anchors were then removed using scissors with a suture removed spinal cord stimulator leads were then carefully removed from the epidural space the tip of the leads were intact the incision without any apparent purulent fluid or fluid collection the area was then briefly irrigated with Irrisept at the site the attention was then made to the right gluteal horizontal incision the incision was taken down with an 11-gauge blade down to the subcutaneous tissue using hemostasis with Bovie and an incision cutting with Bovie taken down to the spinal cord stimulator generator the generator was then removed and the sutures were then incised with scissors once the spinal cord stimulator generator was then removed a purulent fluid collection was apparent at the inferior border of the pocket I&D took place until healthy tissue appeared at the right gluteal region the tunnel between the spinal cord stimu lator lead to the generator was then compressed to remove any excess of purulent fluid culture was then sent with a collection of the fluid using 10 [place] Pollard catheter the catheter was inserted with the direction of the vertical incision of the lower portion of the incision of the mid back towards the right gluteal region pocket the Pollard catheter was then inserted as far as is allowed using th e Irrisept irrigation the area was then irrigated copiously to cover any debris or purulent fluid I repeated irrigation of both incisions were then made using Irrisept solution as well as Betadine and saline mix once the the tissues around the area appeared to be healthy and an active bleeding with trauma reached both incisions were closed primarily using a 0 Vicryl followed by an interrupted simp le mattress sutures using a 2-0 nylon a [place] drain was left at the right gluteal region the lateral portion of the incision, the incisions were then dressed with bacitracin as well as Tegaderm. Assessment and plan: This is a 61-year-old female with spinal cord stimulator mid back vertical incision wound infection as well as right gluteal spinal cord stimulator generat or wound infection status post removal of spinal cord stimulator leads, removal of spinal cord stimulator generator at the right gluteal region I&D of spinal cord stimulator right gluteal region horizontal incision, patient will continue her current medications, the hospitalist as well as infectious disease will continue perioperative antibiotics, we will await the culture for further evaluation if sensitivity to antibiotics and further changes if appropriate, patient will continue with her preop medications, the above plan was discussed with the patient and as well as her family verbally as well as in writing, patient will follow up for suture removal in 7 days. Type of Anesthesia: Local MAC Specimen's removed: Spinal cord stimulator generator and spinal cord stimulator leads Drains: [place] Estimated Blood Loss (mL): Less than
[2022-06-02 19:40] LABS: Bacteria 0 SEEN /hpf (None Seen); Mucous, Urine 0 SEEN /hpf (<or=2+); Red Blood Cells-Urine 0 SEEN /hpf (0-5)
[2022-06-02 19:47] LABS: Glucose, Dipstick Normal (Normal); Ketone-Dipstick Negative (Negative); Leukocyte Esterase-Dipstick 500 /ul (Negative); Nitrite-Dipstick Negative (Negative); Occult Blood-Urine Negative /ul (Negative); Protein-Dipstick Negative (Negative); Specific Gravity, Urine 1.015 (1.002-1.030); Urine Bilirubin Dipstick Negative (Negative); Urine Urobilinogen Normal (Normal)
[2022-06-02 20:00] LABS: Color, Urine Yellow (Yellow); Urine Clarity Clear (Clear)
[2022-06-02 20:13] LABS: Squamous Epithelial Cells - UA 0-5 SEEN /hpf (5-10); White Blood Cells 10-25 SEEN /hpf (0-5)
[2022-06-02 20:14] LABS: Transitional Epithelial - Ur 0-5 SEEN /hpf (0-5)
[2022-06-03 05:40] VITALS: BP 112/58; PULSE 54; RESP 16; TEMP 36.9; O2SAT 98
[2022-06-03] MEDS: Gabapentin 400 MG Capsule PO ×3 (05:49→21:55)
[2022-06-03] MEDS: Levothyroxine 88 MCG Tablet PO (05:49)
[2022-06-03] MEDS: HYDROcodone Bitartrate/Apap 5/325 Tablet PO ×3 (05:49→21:55)
[2022-06-03 07:26] LABS: Absolute Lymphocyte Count 1.06 X10^3/uL (0.83-4.51); Absolute Neutrophil Count 5.5 X10^3/uL (2.0-7.7); Basophil# 0.04 X10^3/uL; Basophil% 0.5 % (0-1); Eosinophils% 6.1 % (0-5); Hematocrit 36.8 % (37-47); Hemoglobin 11.4 g/dL (12.0-15.0); Lymphocyte # 1.06 X10^3/ul (0.83-4.51); Mean Corpuscular Hgb 27.7 pg (27.0-32.0); Mean Corpuscular Volume 89.5 fL (81-99); Mean Platelet Vol. 10.2 fl (6.2-12.0); Monocyte# 1.08 X10^3/uL; Monocyte% 13.2 % (0-10); NRBC Flagged by Analyzer 0 % (0-5); Neutrophil # 5.45 X10^3/uL (2.7-7.7); Neutrophil % 66.8 % (47-70); Platelet Count 268 K/mm3 (150-450); RBC Distribution Width CV 12.4 % (11.6-14.6); RBC Distribution Width SD 40.4 fl (35.1-43.9); Red Blood Count 4.11 M/mm3 (4.2-5.4); White Blood Count 8.2 K/mm3 (4.4-11.0)
[2022-06-03 07:57] LABS: BUN 20 mg/dL (7-18); Creatinine, Serum 1.41 mg/dL (0.55-1.02); EST Glomerular Filtration Rate 40 mL/min (>60); Estimated Creatinine Clearance 36.75 ml/min; Glucose 85 mg/dL (74-106)
[2022-06-03 07:58] LABS: Anion Gap 5 (5-15); BUN/Creat Ratio 14.2 RATIO (10-20); Calcium,Total 8.8 mg/dL (8.5-10.1); Chloride 109 mmol/L (98-107); Est Glom Filt Rate - Afr Amer 48 mL/min (>60); Potassium 3.7 mmol/L (3.5-5.1); Sodium Level 140 mmol/L (136-145)
[2022-06-03 08:03] VITALS: BP 105/58; PULSE 59; RESP 16; TEMP 36.9; O2SAT 94
[2022-06-03 09:18] VITALS: PULSE 59
[2022-06-03] MEDS: Pantoprazole Sodium 40 MG Tablet PO (09:18)
[2022-06-03] MEDS: Metoprolol(XL)Succ 50 MG Tablet PO (09:18)
--- NOTE | 2022-06-03 09:55 | PCM.PN.ID ---
Physical Exam Narrative Feeling better, pain controlled, no fever Const alert and no apparent distress Resp normal air movement and clear to auscultation bilaterally Cardio regular rate and regular rhythm GI soft to palpation, non-tender and non-distended Skin Skin Narrative: dressing and drain in place ID ID: Route of nutrition/ use of supplements: [] Nutritional Intake: [] IV Site: [] Pollard Catheter: [] Assessment & Plan Assessment/Plan (1) Infection of spinal cord stimulator: PLAN: Culture earlier this month with pseudomonas. On zosyn/cipro here. Taken for device removal and I&D 06/02/[address] Villalobos. Surg cx pending. Will follow
[2022-06-03] MEDS: Ciprofloxacin 400 MG/200 ML BAG 200 MG IV ×2 (10:04→21:45)
[2022-06-03 11:14] VITALS: BP 107/48; PULSE 54; RESP 16; TEMP 37.2; O2SAT 98
--- NOTE | 2022-06-03 12:08 | CASEMGMT ---
Social Work Consult: Advanced Directives Referral source: LAURA DENSON This social worker masters met with patient in room. Introduced self and social worker masters role. Patient agreeable to speak with this social worker masters. This social worker masters broached conversation about advanced directives. Patient wishes to complete both HCPOA and Living Will. This social worker masters assisted patient in completing HCPOA and Living Will documents. Patient naming patient daughter, Marry Cool as HCPOA. This social worker masters placed copies on patient chart and provided patient with original documents. This social worker masters also updated Marry's address on patient demographic sheet. No further services requested or indicated. Musa CHEUNG, FREDDY
--- NOTE | 2022-06-03 13:04 | PN.HOSP_ITS ---
Reason for Visit Reason for Visit: Diagnoses Infection and inflammatory reaction due to implanted electronic neurostimulator of spinal cord, electrode (lead), initial encounter (06/01/22) Subjective Subjective Feeling roughly the same, no significant change in pain level, still aches all over, still does have some swelling Objective Data Objective Data Vital Signs: Vital Signs Temp Pulse Resp BP Pulse Ox O2 Del Method O2 Flow Rate 98.9 F 54 L 16 107/48 L 98 Room Air 2 06/03/22 11:14 06/03/22 11:14 06/03/22 11:14 06/03/22 11:14 06/03/22 11:14 06/03/22 12:30 06/03/22 05:40 Oxygen Flow Rate (L/min) 2 Oxygen Delivery Method Room Air Weight: 92.9 kg Body Mass Index (BMI) 34.0 Intake & Output: Intake and Output for Last 24 Hours 06/01/22 06/02/22 06/03/22 23:59 23:59 23:59 Intake Total 250 / 690 2076.67 / 2076.67 1652.75 / 1652.75 Output Total 700 / 700 600 / 600 Balance 250 / 690 1376.67 / 1376.67 1052.75 / 1052.75 Lab / Micro Data Result Diagrams: 06/03/22 06:49 06/03/22 06:49 Labs: Laboratory Results - last 24 hr 06/02/22 19:25: Urine Color Yellow, Urine Clarity Clear, Urine pH 5.0, Ur Specific Andreas 1.015, Urine Protein Negative, Urine Glucose (UA) Normal, Urine Ketones Negative, Urine Occult Blood Negative, Urine Nitrite Negative, Urine Bilirubin Negative, Urine Urobilinogen Normal, Ur Leukocyte Esterase 500 H, Urine RBC 0 SEEN, Urine WBC 10-25 SEEN, Ur Squamous Epith Cells 0-5 SEEN, Ur Transition Epith Cell 0-5 SEEN, Urine Bacteria 0 SEEN, Urine Mucus 0 SEEN 06/03/22 06:49: WBC 8.2, RBC 4.11 L, Hgb 11.4 L, Hct 36.8 L, MCV 89.5, MCH 27.7, MCHC 31.0 L, RDW Std Deviation 40.4, RDW Coeff of Hiro 12.4, Plt Count 268, MPV 10.2, Immature Gran % (Auto) 0.400, Neut % (Auto) 66.8, Lymph % (Auto) 13.0 L, [place] % (Auto) 13.2 H, Eos % (Auto) 6.1 H, Baso % (Auto) 0.5, Absolute Neuts ( auto) 5.5, Absolute Lymphs (auto) 1.06, Nucleated RBC % 0 06/03/22 06:49: Sodium 140, Potassium 3.7, Chloride 109 H, Carbon Dioxide 26.0, Anion Gap 5, BUN 20 H, Creatinine 1.41 H, Estim Creat Clear Calc 36.75, Est GFR (MDRD) Af Amer 48 L, Est GFR (MDRD) Non-Af 40 L, BUN/Creatinine Ratio 14.2, Glucose 85, Calcium 8.8, C-React Prot Ext Range 16.80 H Micro: Microbiology 06/02/22 18:30 Tissue - Back Tissue Culture - Preliminary No growth-Final to follow 06/02/22 18:30 Implant - Other Wound Culture - Preliminary No growth-Final to follow Physical Exam Narrative General: Alert, oriented, no apparent distress HEENT: Atraumatic, normocephalic Eyes: Anicteric, normal conjunctiva, extraocular movements grossly intact Neck: Supple Respiratory: Clear to auscultation bilaterally, normal respiratory effort Cardiovascular: Regular rate and rhythm GI: Soft, nontender, nondistended Extremities: 1+ lower extremity edema bilaterally Musculoskeletal: Moving all extremities Neuro: No overt focal neurological deficits Skin: Dressing over incision, no erythema or significant tenderness Psych: Cooperative Assessment & Plan Assessment/Plan (1) Infection of spinal cord stimulator: PLAN: Plan #Lumbar pain, concern for lumbar spinal cord stimulator infection -Had intraoperative cultures during washout earlier this month that grew Pseudo monas -CRP slightly elevated -We will continue Cipro and Zosyn -Cultures obtained -Consult Dr. Hopson, n.p.o. at midnight -06/02: discussed w/ Dr. Villalobos-advised infectious disease consult to assess possibility of IV antibiotics and not having to remove versus strong recommendation to remove. Consult placed, cultures pending, on broad-spectrum antibiotics. Patient to remain n.p.o. in the event she is able to be taken to the OR. -06/03: Status post removal 06/02. On Zosyn and Cipro. Cultures pending. We will follow scientific database curator and hope to DC in next 1 to 2 days pending results #Chronic lumbar back pain -Continue oral as needed pain medication and buprenorphine patch, continue gabapentin -Will add as needed IV medication #CKD stage IIIb -Slight increase in creatinine though appears close to baseline -We will give some gentle hydration, no respiratory distress -06/03: Has some peripheral edema but no protein in UA, echo pending #Bilateral lower extremity swelling -We will obtain echocardiogram -No respiratory distress #Rheumatoid arthritis held hydroxychloroquine after discussing with Dr. Villalobos as he did not feel #Hypothyroidism -Continue Synthroid -TSH wnl #DVT ppx: SCDs Maria E Strickland MD Time spent in the patient's overall evaluation,decision-making process, review o f diagnostic data, adjustment of management, discussion with other providers, nursing nursing and ancillary staff involved in patient's care documentation, 30 minutes Charges/Coding Visit Charges Inpatient E&M: 36793 Subs Hosp L2
[2022-06-03 15:31] VITALS: BP 116/60; PULSE 59; RESP 16; TEMP 37.1; O2SAT 95
[2022-06-03 21:30] VITALS: BP 121/46; PULSE 73; RESP 16; TEMP 37.4; O2SAT 91
[2022-06-04 04:20] VITALS: BP 109/50; PULSE 59; RESP 16; TEMP 36.8; O2SAT 91
[2022-06-04] MEDS: Levothyroxine 88 MCG Tablet PO (05:49)
[2022-06-04] MEDS: Gabapentin 400 MG Capsule PO ×2 (05:49→14:13)
[2022-06-04] MEDS: HYDROcodone Bitartrate/Apap 5/325 Tablet PO ×2 (05:50→11:50)
[2022-06-04 06:43] LABS: Absolute Lymphocyte Count 1.02 X10^3/uL (0.83-4.51); Absolute Neutrophil Count 5.4 X10^3/uL (2.0-7.7); Basophil# 0.03 X10^3/uL; Basophil% 0.4 % (0-1); Eosinophil# 0.63 X10^3/uL; Eosinophils% 7.7 % (0-5); Hematocrit 33.8 % (37-47); Hemoglobin 10.7 g/dL (12.0-15.0); Lymphocyte # 1.02 X10^3/ul (0.83-4.51); Lymphocyte % 12.5 % (19-41); Mean Corp Hgb Conc 31.7 g/dL (32-36); Mean Corpuscular Hgb 27.4 pg (27.0-32.0); Mean Corpuscular Volume 86.7 fL (81-99); Mean Platelet Vol. 9.5 fl (6.2-12.0); Monocyte# 1.09 X10^3/uL; Monocyte% 13.4 % (0-10); NRBC Flagged by Analyzer 0 % (0-5); Neutrophil # 5.37 X10^3/uL (2.7-7.7); Neutrophil % 65.8 % (47-70); Platelet Count 245 K/mm3 (150-450); RBC Distribution Width CV 12.2 % (11.6-14.6); RBC Distribution Width SD 39.1 fl (35.1-43.9); White Blood Count 8.2 K/mm3 (4.4-11.0)
[2022-06-04 07:09] LABS: Anion Gap 6 (5-15); BUN 17 mg/dL (7-18); BUN/Creat Ratio 13.1 RATIO (10-20); Calcium,Total 9.3 mg/dL (8.5-10.1); Chloride 107 mmol/L (98-107); EST Glomerular Filtration Rate 44 mL/min (>60); Est Glom Filt Rate - Afr Amer 53 mL/min (>60); Estimated Creatinine Clearance 39.86 ml/min; Glucose 103 mg/dL (74-106); Potassium 3.2 mmol/L (3.5-5.1); Sodium Level 140 mmol/L (136-145)
[2022-06-04 08:50] VITALS: BP 122/71; PULSE 66; RESP 18; TEMP 37.1; O2SAT 94
[2022-06-04 08:53] VITALS: PULSE 66
[2022-06-04] MEDS: Metoprolol(XL)Succ 50 MG Tablet PO (08:53)
[2022-06-04] MEDS: Pantoprazole Sodium 40 MG Tablet PO (08:53)
--- NOTE | 2022-06-04 09:08 | PN.HOSP_ITS ---
Reason for Visit Reason for Visit: Diagnoses Infection and inflammatory reaction due to implanted electronic neurostimulator of spinal cord, electrode (lead), initial encounter (06/01/22) Subjective Subjective Feeling roughly the same today, no increase in pain. Objective Data Objective Data Vital Signs: Vital Signs Temp Pulse Resp BP Pulse Ox O2 Del Method O2 Flow Rate 98.7 F 66 18 122/71 H 94 Room Air 2 06/04/22 08:50 06/04/22 08:53 06/04/22 08:50 06/04/22 08:50 06/04/22 08:50 06/04/22 08:50 06/03/22 05:40 Oxygen Flow Rate (L/min) 2 Oxygen Delivery Method Room Air Weight: 92.9 kg Body Mass Index (BMI) 34.0 Intake & Output: Intake and Output for Last 24 Hours 06/02/22 06/03/22 06/04/22 23:59 23:59 23:59 Intake Total 2076.67 / 2076.67 2352.75 / 2352.75 50 / 50 Output Total 700 / 700 1200 / 1600 400 / 400 Balance 1376.67 / 1376.67 1152.75 / 752.75 -350 / -350 Lab / Micro Data Result Diagrams: 06/04/22 06:30 06/04/22 06:30 Labs: Laboratory Results - last 24 hr 06/04/22 06:30: WBC 8.2, RBC 3.90 L, Hgb 10.7 L, Hct 33.8 L, MCV 86.7, MCH 27.4, MCHC 31.7 L, RDW Std Deviation 39.1, RDW Coeff of Hiro 12.2, Plt Count 245, MPV 9.5, Immature Gran % (Auto) 0.200, Neut % (Auto) 65.8, Lymph % (Auto) 12.5 L, [place] % (Auto) 13.4 H, Eos % (Auto) 7.7 H, Baso % (Auto) 0.4, Absolute Neuts (auto) 5.4, Absolute Lymphs (auto) 1.02, Nucleated RBC % 0 06/04/22 06:30: Sodium 140, Potassium 3.2 L, Chloride 107, Carbon Dioxide 27.0, Anion Gap 6, BUN 17, Creatinine 1.30 H, Estim Creat Clear Calc 39.86, Est GFR (MDRD) Af Amer 53 L, Est GFR (MDRD) Non-Af 44 L, BUN/Creatinine Ratio 13.1, Glucose 103, Calcium 9.3, C-React Prot Ext Range 34.30 H Micro: Microbiology 06/02/22 18:30 Implant - Other Gram Stain - Final 06/02/22 18:30 Implant - Other Wound Culture - Final No growth aerobically. 06/02/22 18:30 Tissue - Back Gram Stain - Final 06/02/22 18:30 Tissue - Back Tissue Culture - Preliminary No growth-Final to follow Radiography Diagnostic Testing: Radiology Impression Echocardiogram 06/01/22 17:35 Interpretation Summary Normal LV size. Left ventricular systolic function is normal. The estimated ejection fraction is 65 %. Stage 2 diastolic dysfunction. Pulmonary artery systolic pressure is 28 mmHg. Ordering Physician: Maria E Strickland Referring Physician: Pk Donahue Performed By: Lynne Montoya RDCS, RVT Physical Exam Narrative General: Alert, oriented, no apparent distress HEENT: Atraumatic, normocephalic Eyes: Anicteric, normal conjunctiva, extraocular movements grossly intact Neck: Supple Respiratory: Clear to auscultation bilaterally, normal respiratory effort Cardiovascular: Regular rate and rhythm GI: Soft, nontender, nondistended Extremities: 1+ edema bilaterally Musculoskeletal: Moving all extremities Neuro: No overt focal neurological deficits Skin: No rashes or bleeding Psych: Cooperative Assessment & Plan Assessment/Plan (1) Infection of spinal cord stimulator: PLAN: Plan 5#Lumbar pain, 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 Hopson, n.p.o. at midnight -06/02: discussed w/ Dr. Villalobos-advised infectious disease consult to assess possibility of IV antibiotics and not having to remove versus strong recommendation to remove. Consult placed, cultures pending, on broad-spectrum antibiotics. Patient to remain n.p.o. in the event she is able to be taken to the OR. -06/03: Status post removal 06/02. On Zosyn and Cipro. Cultures pending. We will follow cotton acreage measurer and hope to DC in next 1 to 2 days pending results -06/04: Awaiting cultures. We will plan to DC once cleared to do so by infectious disease. Continue on Zosyn and Cipro #Chronic lumbar back pain -Gabapentin, Edgar as needed #CKD stage IIIb -Slight increase in creatinine though appears close to baseline -We will give some gentle hydration, no respiratory distress -06/03: Has some peripheral edema but no protein in UA, echo pending -06/04: Slightly improved today #Bilateral lower extremity swelling/heart failure with preserved ejection fraction -We will obtain echocardiogram -No respiratory distress -06/04: Echocardiogram with EF of 65%, pulmonary artery systolic pressure 28 and stage II diastolic dysfunction. We will recommend outpatient sleep study and fu rther work-up and given edema will give a dose of Lasix and assess for improvement #Rheumatoid arthritis -held hydroxychloroquine after discussing with Dr. Villalobos #Hypothyroidism -Continue Synthroid -TSH wnl #DVT ppx: SCDs Maria E Strickland MD Time spent in the patient's overall evaluation,decision-making process, review of diagnostic data, adjustment of management, discussion with other providers, nursing nursing and ancillary staff involved in patient's care documentation, 30 minutes Charges/Coding Visit Charges Inpatient E&M: 14587 Subs Hosp L2
[2022-06-04] MEDS: Furosemide 20 MG Tablet PO (10:31)
[2022-06-04] MEDS: Ciprofloxacin 400 MG/200 ML BAG 200 MG IV (10:31)
[2022-06-04] MEDS: Potassium Chloride Oral Tablet 20 MEQ 40 MEQ PO (10:31)
--- NOTE | 2022-06-04 13:38 | PCM.PN.ID ---
Physical Exam Narrative Feeling better, pain improved in back, no fever Const alert and no apparent distress General Appearance: cooperative Resp normal air movement and clear to auscultation bilaterally Cardio regular rate and regular rhythm GI soft to palpation, non-tender and non-distended Skin no rashes or lesions noted ID ID: Route of nutrition/ use of supplements: [] Nutritional Intake: [] IV Site: [] Pollard Catheter: [] Assessment & Plan Assessment/Plan (1) Infection of spinal cord stimulator: PLAN: Culture earlier this month with pseudomonas. On zosyn/cipro here. Taken for device removal and I&D 06/02/[address] Villalobos. Surg cx neg so far. Ok for home, wrote for 10 days cipro/augmentin, will follow final cx results. Will follow
--- NOTE | 2022-06-04 13:58 | CASEMGMT ---
LAURA DENSON notified by therapy that pt is in need of FWW. LAURA DENSON into pt room, provided pt with verbal local in network list of DME companies, pt chose [facility]. Referral sent to [facility] via [employer] at this time. Pt to dc on po atb. Pt denies further homegoing needs.
[2022-06-04 14:14] VITALS: BP 124/57; PULSE 62; RESP 18; TEMP 36.8; O2SAT 98
--- NOTE | 2022-06-04 15:52 | PCM.DC.SUM ---
Providers Date of Admission: 06/01/22 Date of Discharge: 06/04/22 Primary Care Physician: Dr. Pk Donahue, Consultations 06/01/22 18:08 Consult: Pain Management Routine Consulting Provider: Josafat Villalobos Reason for Consult: spinal stim concern for infection EMERGENT Consult: No MD Notified: Yes Date Notified: 06/01/22 Time Notified: 18:10 Method of Notification: ED Physician Initiated 06/02/22 09:02 Consult: Infectious Disease Routine Consulting Provider: Bethel Benitez Reason for Consult: Concern 4 spinal stim infxn.If poss Dr. 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 #Chronic lumbar back pain #CKD stage IIIb #Bilateral lower extremity swelling/heart failure with preserved ejection fraction #Rheumatoid arthritis #Hypothyroidism Medications at Discharge Home Medications buprenorphine 20 mcg/hour weekly transdermal patch (Butrans) 1 patch transdermal QWEEK PAIN 01/13/21 hydrocodone-acetaminophen 5-325mg 5mg-325mg 1 tab PO Q6H PRN Pain 01/13/21 hydroxychloroquine 200 mg tablet 200 mg PO DAILY 01/13/21 levothyroxine 88 mcg tablet (Synthroid) 88 mcg PO DAILY 01/13/21 omeprazole 40 mg capsule,delayed release 40 mg PO DAILY 01/13/21 potassium chloride 20 mEq tablet,extended release(part/cryst) 20 meq PO TID SUPPLEMENT 01/13/21 triamterene 37.5 mg-hydrochlorothiazide 25 mg capsule 1 cap PO DAILY Check with primary doctor 01/13/21 gabapentin 400 mg capsule 400 mg PO TID PAIN 05/08/21 cholecalciferol (vitamin D3) 125 mcg (5,000 unit) capsule 125 mcg PO DAILY SUPPLEMENT 06/01/22 magnesium 250 mg tablet 250 mg PO DINNER SUPPLEMENT 06/01/22 amoxicillin 875 mg-potassium clavulanate 125 mg tablet 1 tab PO Q12H #20 tabs 06/04/22 ciprofloxacin HCl 500 mg tablet (Cipro) 750 mg PO Q12H 10 days #30 tabs 06/04/22 metoprolol succinate 50 mg tablet,extended release 24 hr 50 mg PO DAILY 30 days #30 tabs 06/04/22 Hospital Course Operations - (Removal of spinal cord stimulator leads, removal spinal cord stimulator generator at the right gluteal region, I&D of spinal cord stimulator right gluteal region horizontal incision) Procedures Transthoracic echo and - Summary of Care Provided Minutes Spent on Discharge: 35 Hospital Course: SAVANNAH AGUIRRE, is a 61 F with a history of chronic pain with spinal stimulator implant in March and subsequent infection in early May with washout and positive pseudomonal cultures who presented to [facility] 06/01/2022 with increasing pain around incision site. Her pain management physician Dr. Villalobos contacted the emergency department recommended admission and antibiotics in preparation for possible removal. Peripheral cultures obtained and spoke with Dr. Villalobos recommend infectious disease consult. ID also recommended device removal and broad-spectrum antibiotics with Cipro and Zosyn. She went to the OR 06/02 for Removal of spinal cord stimulator leads, removal spinal cord stimulator generator at the right gluteal region, I&D of spinal cord stimulator right gluteal region horizontal incision with successful removal and intraoperative cultures. Preliminary cultures no growth and infectious disease cleared for discharge home with 10 days of Augmentin and Cipro. She had peripheral edema and further work-up during her admission revealed she had CKD stage III as well as heart failure with preserved ejection fraction with an EF of 65% but stage II diastolic dysfunction. Urine checked and no protein present. Blood pressure fairly well controlled during her admission. On day of discharge reports still feeling generally achy with no increased pain. Would like to go home. Discharge instructions as followed: -Please follow-up with Dr. Villalobos upon discharge, if you do not already have an appointment scheduled please call to schedule a follow-up appointment -You will be discharged on 10 days of antibiotics, amoxicillin clavulanate and ciprofloxacin.? Please take these as prescribed. -Due to somewhat low heart rate your metoprolol was decreased to 50 mg daily -You are found to have somewhat decreased kidney function that was stable throughout your admission however would recommend discussing possible nephrology evaluation as an outpatient with your primary care physician -You were also found to have what is called diastolic dysfunction meaning that your heart does not relax as well as it should which may have contributed to some of your swelling, please discuss with your primary care physician as they may need to further adjust your medications. -Would also suggest sleep study as an outpatient as you indicated morning headaches if you are not sitting up when you are resting -Please call your primary care provider's office upon discharge to schedule a hospital follow up within 1 week. -For any concerning signs or symptoms please call 911 or proceed to the nearest emergency department Physical Exam Narrative General: Alert, oriented, no apparent distress HEENT: Atraumatic, normocephalic Eyes: Anicteric, normal conjunctiva, extraocular movements grossly intact Neck: Supple Respiratory: Clear to auscultation bilaterally, normal respiratory effort Cardiovascular: Regular rate and rhythm GI: Soft, nontender, nondistended Extremities: 1+ edema bilaterally Musculoskeletal: Moving all extremities Neuro: No overt focal neurological deficits Skin: No rashes or bleeding Psych: Cooperative Weight / BMI Weight Weight: 92.9 kg Body Mass Index (BMI) 34.0 ABG / Lab / Microbiology Data Result Diagrams: 06/04/22 06:30 06/04/22 06:30 Laboratory: Laboratory Results - last 24 hr 06/04/22 06:30: WBC 8.2, RBC 3.90 L, Hgb 10.7 L, Hct 33.8 L, MCV 86.7, MCH 27.4, MCHC 31.7 L, RDW Std Deviation 39.1, RDW Coeff of Hiro 12.2, Plt Count 245, MPV 9.5, Immature Gran % (Auto) 0.200, Neut % (Auto) 65.8, Lymph % (Auto) 12.5 L, Mccormick % (Auto) 13.4 H, Eos % (Auto) 7.7 H, Baso % (Auto) 0.4, Absolute Neuts (auto) 5.4, Absolute Lymphs (auto) 1.02, Nucleated RBC % 0 06/04/22 06:30: Sodium 140, Potassium 3.2 L, Chloride 107, Carbon Dioxide 27.0, Anion Gap 6, BUN 17, Creatinine 1.30 H, Estim Creat Clear Calc 39.86, Est GFR (MDRD) Af Amer 53 L, Est GFR (MDRD) Non-Af 44 L, BUN/Creatinine Ratio 13.1, Glucose 103, Calcium 9.3, C-React Prot Ext Range 34.30 H Microbiology: Microbiology 06/01/22 16:20 Blood Culture (Wb) - Anticubital Right Blood Culture - Preliminary No growth in 48 hours. 06/01/22 16:20 Blood Culture (Wb) - Anticubital Left Blood Culture - Preliminary No growth in 48 hours. 06/02/22 18:30 Implant - Other Gram Stain - Final 06/02/22 18:30 Implant - Other Wound Culture - Final No growth aerobically. 06/02/22 18:30 Tissue - Back Gram Stain - Final 06/02/22 18:30 Tissue - Back Tissue Culture - Preliminary No growth-Final to follow Radiography Diagnostic Testing: Radiology Impression Echocardiogram 06/01/22 17:35 Interpretation Summary Normal LV size. Left ventricular systolic function is normal. The estimated ejection fraction is 65 %. Stage 2 diastolic dysfunction. Pulmonary artery systolic pressure is 28 mmHg. Ordering Physician: Maria E Strickland Referring Physician: Pk Donahue Performed By: Lynne Montoya RDCS, RVT D/C Instructions Discharge Diet: - (DASH diet) Meaningful Use Info Meaningful Use Diagnoses (Choose all that apply): None applicable Discharge Plan Admission Admit Date/Time: 06/01/22 17:15 Primary Reason for Your Visit: Concern for implant infection Attending Provider: Maria E Strickland Primary Care Provider: Pk Donahue Consulting Providers: Josafat Villalobos ; Bethel Benitez Instructions Patient Instructions: ED Chronic Pain Additional Instructions / Restrictions: DISCHARGE INSTRUCTIONS PLEASE READ *Please take this with you to your next doctors appointment* -Please follow-up with Dr. Villalobos upon discharge, if you do not already have an appointment scheduled please call to schedule a follow-up appointment -You will be discharged on 10 days of antibiotics, amoxicillin clavulanate and ciprofloxacin. Please take these as prescribed. -Due to somewhat low heart rate your metoprolol was decreased to 50 mg daily -You are found to have somewhat decreased kidney function that was stable throughout your admission however would recommend discussing possible nephrology evaluation as an outpatient with your primary care physician -You were also found to have what is called diastolic dysfunction meaning that your heart does not relax as well as it should which may have contributed to some of your swelling, please discuss with your primary care physician as they may need to further adjust your medications. -Would also suggest sleep study as an outpatient as you indicated morning headaches if you are not sitting up when you are resting -Please call your primary care provider's office upon discharge to schedule a hospital follow up within 1 week. -For any concerning signs or symptoms please call 911 or proceed to the nearest emergency department Discharge Orders/Prescriptions Prescriptions: New ciprofloxacin HCl [Cipro] 500 mg tablet 750 mg PO Q12H 10 Days Qty: 30 0RF amoxicillin-pot clavulanate 875-125 mg tablet 1 tab PO Q12H Qty: 20 0RF metoprolol succinate 50 mg Tablet Extended Release 24 Hr 50 mg PO DAILY 30 Days Qty: 30 0RF Continued gabapentin 400 mg capsule 400 mg PO TID Label Comments: take 1 capsule by mouth three times a day hydrocodone-acetaminophen 5-325 mg Tablet 1 tab PO Q6H PRN (Reason: Pain) omeprazole 40 mg Capsule,Delayed Release(Dr/Ec) 40 mg PO DAILY triamterene-hydrochlorothiazid 37.5-25 mg Capsule 1 cap PO DAILY levothyroxine [Synthroid] 88 mcg Tablet 88 mcg PO DAILY potassium chloride 20 mEq tablet,ER particles/crystals 20 meq PO TID Label Comments: take 3 capsules by mouth once daily hydroxychloroquine 200 mg Tablet 200 mg PO DAILY buprenorphine [Butrans] 20 mcg/hour Patch Weekly 1 patch TRANSDERMAL QWEEK Rx Instructions: on wednesdays magnesium 250 mg Tablet 250 mg PO DINNER cholecalciferol (vitamin D3) 125 mcg (5,000 unit) Capsule 125 mcg PO DAILY Discontinued metoprolol succinate 100 mg tablet extended release 24 hr 100 mg PO DINNER Label Comments: take 1 tablet by mouth once daily Referrals / Follow Up: Josafat Villalobos MD [Med Staff - Active Staff] - See Referral Note (Please call upon discharge to schedule your hospital follow-up appointment) Pk Donahue DO [Primary Care Provider] - Within 1 Week Disposition Disposition (needs filled in before D/C Order can be placed): Home, Self Care Charges/Coding Visit Charges Inpatient E&M: 97187 Disch Hosp >30min
== END 2022-06-04 18:00 | disposition home or self-care (01) | DRG 29 ==
LOC: ED 16:15 → MS3 17:21
PROVIDERS: Anesthesiology Pain Medicine; Admitting Provider Internal Medicine; Emergency Provider Emergency Medicine; PCP Family Medicine; Visit Provider Internal Medicine
PROC: 00PU0MZ Removal of Neurostimulator Lead from Spinal Canal, Open Approach (ICD-10-PCS; CPT 63650; principal; 2022-06-02 16:15)
DX: T85.733A Infection and inflammatory reaction due to implanted electronic neurostimulator of spinal cord, electrode (lead), initial encounter (principal); G97.82 Other postprocedural complications and disorders of nervous system; I13.0 Hypertensive heart and chronic kidney disease with heart failure and stage 1 through stage 4 chronic kidney disease, or unspecified chronic kidney disease; I50.30 Unspecified diastolic (congestive) heart failure; N18.32 Chronic kidney disease, stage 3b; M06.9 Rheumatoid arthritis, unspecified; E89.0 Postprocedural hypothyroidism; M79.7 Fibromyalgia; Y75.2 Prosthetic and other implants, materials and neurological devices associated with adverse incidents; M54.50 Low back pain, unspecified; G89.29 Other chronic pain; Z79.890 Hormone replacement therapy
CPT/HCPCS: 36415; 71045; 74177; 80048; 80053; 81001; 82533; 83605; 84443; 85025; 85610; 85652; 86140; 87040; 87070; 87075; 87205; 88300; 93005; 93306; 97116; 97162; 97530; 97802; 99284; J7030; J7050; Q9957; Q9967; A4216; J0744; J2405

== ENCOUNTER → 2022-07-09 | Outpatient (CLI) | payer MEDICARE, MEDICAID, SELFPAY ==
[2022-07-09 10:40] LABS: Vitamin B12 573 pg/mL (211-911); Vitamin D,25 Hydroxy 107.8 ng/mL
[2022-07-09 10:44] LABS: Ferritin 26 ng/mL (8-252); Iron 72 ug/dL (50-170)
== END | disposition home or self-care (01) ==
LOC: LAB.FUTURE 09:02 → LAB 07-10 07:37
PROVIDERS: PCP Family Medicine; Referring Provider Family Medicine; Visit Provider Family Medicine
DX: Z00.00 Encounter for general adult medical examination without abnormal findings (principal); E55.9 Vitamin D deficiency, unspecified; D64.9 Anemia, unspecified
CPT/HCPCS: 36415; 82306; 82607; 82728; 83540

== ENCOUNTER → 2022-07-31 | Outpatient (CLI) | payer MEDICARE, MEDICAID, SELFPAY ==
[2022-07-31 16:20] LABS: Absolute Lymphocyte Count 1.11 X10^3/uL (0.83-4.51); Basophil# 0.05 X10^3/uL; Basophil% 0.5 % (0-1); Eosinophil# 0.28 X10^3/uL; Hematocrit 38.4 % (37-47); Lymphocyte # 1.11 X10^3/ul (0.83-4.51); Lymphocyte % 11.8 % (19-41); Mean Corp Hgb Conc 31.3 g/dL (32-36); Mean Corpuscular Volume 86.5 fL (81-99); Mean Platelet Vol. 10.4 fl (6.2-12.0); Monocyte# 0.93 X10^3/uL; Monocyte% 9.9 % (0-10); NRBC Flagged by Analyzer 0 % (0-5); Neutrophil # 7.02 X10^3/uL (2.7-7.7); Neutrophil % 74.6 % (47-70); Platelet Count 238 K/mm3 (150-450); RBC Distribution Width CV 13.9 % (11.6-14.6); RBC Distribution Width SD 43.1 fl (35.1-43.9); Red Blood Count 4.44 M/mm3 (4.2-5.4); White Blood Count 9.4 K/mm3 (4.4-11.0)
[2022-07-31 16:40] LABS: Anion Gap 6 (5-15); BUN 26 mg/dL (7-18); BUN/Creat Ratio 17.4 RATIO (10-20); Chloride 107 mmol/L (98-107); Creatinine, Serum 1.49 mg/dL (0.55-1.02); EST Glomerular Filtration Rate 38 mL/min (>60); Est Glom Filt Rate - Afr Amer 45 mL/min (>60); Glucose 101 mg/dL (74-106); Sodium Level 142 mmol/L (136-145)
== END | disposition home or self-care (01) ==
LOC: LAB 15:53
PROVIDERS: PCP Family Medicine; Referring Provider Family Medicine; Visit Provider Family Medicine
DX: Z51.81 Encounter for therapeutic drug level monitoring (principal)
CPT/HCPCS: 36415; 80048; 85025

== ENCOUNTER → 2022-08-21 | Outpatient (CLI) | payer MEDICARE, MEDICAID, SELFPAY ==
[2022-08-21 15:12] LABS: Absolute Lymphocyte Count 2.07 X10^3/uL (0.83-4.51); Absolute Neutrophil Count 4.7 X10^3/uL (2.0-7.7); Basophil# 0.04 X10^3/uL; Basophil% 0.5 % (0-1); Eosinophil# 0.33 X10^3/uL; Eosinophils% 4.1 % (0-5); Hematocrit 41.2 % (37-47); Hemoglobin 12.8 g/dL (12.0-15.0); Lymphocyte # 2.07 X10^3/ul (0.83-4.51); Lymphocyte % 25.7 % (19-41); Mean Corp Hgb Conc 31.1 g/dL (32-36); Mean Corpuscular Hgb 27.5 pg (27.0-32.0); Mean Corpuscular Volume 88.6 fL (81-99); Mean Platelet Vol. 10.9 fl (6.2-12.0); Monocyte# 0.88 X10^3/uL; Monocyte% 10.9 % (0-10); NRBC Flagged by Analyzer 0 % (0-5); Neutrophil # 4.71 X10^3/uL (2.7-7.7); Neutrophil % 58.4 % (47-70); Platelet Count 265 K/mm3 (150-450); RBC Distribution Width CV 14.7 % (11.6-14.6); RBC Distribution Width SD 47.9 fl (35.1-43.9); Red Blood Count 4.65 M/mm3 (4.2-5.4); White Blood Count 8.1 K/mm3 (4.4-11.0)
[2022-08-21 16:01] LABS: ALB/GLOB Ratio 1.1 RATIO (0.9-2.4); AST(SGOT) 20 U/L (15-37); Alanine Aminotransfer ALT/SGPT 28 U/L (13-56); Albumin, Serum 3.6 g/dL (3.2-5.0); Alkaline Phosphatase 92 U/L (45-117); Anion Gap 6 (5-15); BUN 38 mg/dL (7-18); BUN/Creat Ratio 27.7 RATIO (10-20); Calcium,Total 9.2 mg/dL (8.5-10.1); Chloride 111 mmol/L (98-107); Creatinine, Serum 1.37 mg/dL (0.55-1.02); EST Glomerular Filtration Rate 41 mL/min (>60); Est Glom Filt Rate - Afr Amer 50 mL/min (>60); Ferritin 29 ng/mL (8-252); Globulin 3.3 g/dL (2.2-4.2); Glucose 103 mg/dL (74-106); Potassium 3.5 mmol/L (3.5-5.1); Protein, Total 6.9 g/dL (6.4-8.2); Sodium Level 143 mmol/L (136-145)
== END | disposition home or self-care (01) ==
LOC: LAB 14:31
PROVIDERS: PCP Family Medicine; Referring Provider Family Medicine; Visit Provider Family Medicine
DX: N18.31 Chronic kidney disease, stage 3a (principal); E61.1 Iron deficiency; Z51.81 Encounter for therapeutic drug level monitoring
CPT/HCPCS: 36415; 80053; 82728; 85025

== ENCOUNTER → 2022-09-24 | Outpatient (CLI) | payer MEDICARE, MEDICAID, SELFPAY ==
[2022-09-30 00:06] LABS: Lyme IgG P18 Ab Absent (.); Lyme IgG P23 Ab Absent (.); Lyme IgG P28 Ab Absent (.); Lyme IgG P30 Ab Absent (.); Lyme IgG P39 Ab Absent (.); Lyme IgG P41 Ab Absent (.); Lyme IgG P45 Ab Absent (.); Lyme IgG P58 Ab Absent (.); Lyme IgG P66 Ab Absent (.); Lyme IgG P93 Ab Absent (.); Lyme IgG WB Interpretation Negative (.); Lyme IgM P23 Ab Absent (.); Lyme IgM P39 Ab Absent (.); Lyme IgM P41 Ab Absent (.); Lyme IgM WB Interpretation Negative (.)
== END | disposition home or self-care (01) ==
PROVIDERS: Family Medicine; PCP Nurse Practitioner Family; Referring Provider Nurse Practitioner Family; Visit Provider Nurse Practitioner Family
DX: S90.569A Insect bite (nonvenomous), unspecified ankle, initial encounter (principal); W57.XXXA Bitten or stung by nonvenomous insect and other nonvenomous arthropods, initial encounter
CPT/HCPCS: 36415; 86617

== ENCOUNTER → 2022-10-23 | Outpatient (CLI) | payer MEDICARE, MEDICAID, SELFPAY ==
--- NOTE | 2022-10-23 11:00 | BD_ITS ---
STUDY: DUAL ENERGY X-RAY ABSORPTIOMETRY / DXA REASON FOR EXAM: Female, 61 years old. V76.12ScreeningBONE DENSITY REASON FOR EXAM TECHNIQUE: Bone Mineral Density (BMD) measurements of lumbar spine and bilateral hips were obtained. COMPARISON: None. FINDINGS: Lumbar Spine (L1-L4): g/cm2 (1.144) / T-score (1.0) / Z-score (2.7) Findings are suggestive of normal bone density with a low fracture risk. Left Femur Total: g/cm2 (0.829) / T-score (-0.9) / Z-score (0.2) Left Femoral Neck: g/cm2 (0.748) / T-score (-0.9) / Z-score (0.5) Right Femur Total: g/cm2 (0.835) / T-score (-0.9) / Z-score (0.3) Right Femoral Neck: g/cm2 (0.684) / T-score (-1.5) / Z-score (0.0) BD/Dexa Bone Density Study IMPRESSION: The patient is considered osteopenic as outlined below according to World Renny Organization (WHO) criteria with a low fracture risk. Reference Information: The T-score is the number of standard deviations above or below the standard which is normal for young adults at their peak bone mineral density. The World Health Organization (WHO) interprets the T-scores as follows: Above -1 Normal bone density Between -1 and -2.5 Osteopenia Equal to / or below -2.5 Osteoporosis As a practical clinical guideline, osteopenia may be graded as follows: Mild -1 through -1.5 Moderate -1.6 through -2.0 Severe -2.1 through -2.4 The Z-score is the number of standard deviations above or below age-matched controls. A Z-score of less than -1.5 would be considered abnormal. References: 1. NIH Osteoporosis and Related Bone Diseases www osteo.org 2. International Society for Clinical Densitometry www iscd.org 3. National Osteoporosis Foundation www nof.org Electronically Signed: Yohannes Crystal MD at 12:26 EDT ,
== END | disposition home or self-care (01) ==
LOC: OPBD 10:58
PROVIDERS: PCP Family Medicine; Referring Provider Family Medicine; Visit Provider Family Medicine
DX: M85.9 Disorder of bone density and structure, unspecified (principal); M06.00 Rheumatoid arthritis without rheumatoid factor, unspecified site; Z79.52 Long term (current) use of systemic steroids
CPT/HCPCS: 77080

== ENCOUNTER 2022-11-13 09:02 | Day surgery (SDC) | payer MEDICARE, MEDICAID, SELFPAY ==
[2022-11-13] MEDS: Lactated Ringers 1,000 ML 15 ML IV (09:15)
[2022-11-13 09:31] VITALS: BP 143/77; PULSE 53; RESP 18; TEMP 36.4; O2SAT 100; BMI 33.5
--- NOTE | 2022-11-13 10:20 | PCM.HP.STD ---
HPI - General General Date of Admission: 11/13/22 Date of Service: 11/13/22 Chief Complaint: Screening colonoscopy HPI Narrative SAVANNAH AGUIRRE, is a 62 F who presents here today for:. She has a past medical history of mild iron EMEA chronic back pain autoimmune disease, hypertension, GERD. She has a positive family history of polyps in her mother. She comes in today for screening colonoscopy. She does not have any abdominal pain. She not have any nausea. She denies any chest pain or shortness of breath. She denies any change in bowel habits such as diarrhea, constipation or lower GI bleeding. All 16 view systems negative except as per above mentioned HPI. [facility] Medical History (Updated 11/12/22 @ 09:29 by Akosua Rain) Anemia Anxiety Arthritis Chronic pain CKD (chronic kidney disease) Depression Fibromyalgia Gastric reflux History of pain when walking Hypertension Hypothyroid Infection of spinal cord stimulator Leg cramps Migraines Non-smoker Post-menopausal Rheumatoid arthritis Thyroid disease Home Medications buprenorphine 20 mcg/hour weekly transdermal patch (Butrans) 1 patch transdermal QWEEK PAIN 01/13/21 [History Last Taken 05/28/22] hydrocodone-acetaminophen 5-325mg 5mg-325mg 1 tab PO Q6H PRN Pain 01/13/21 [History Last Taken 11/13/22 07:00] hydroxychloroquine 200 mg tablet 200 mg PO DAILY 01/13/21 [History Last Taken 05/31/22] levothyroxine 88 mcg tablet (Synthroid) 88 mcg PO DAILY 01/13/21 [History Last Taken 06/01/22] omeprazole 40 mg capsule,delayed release 40 mg PO DAILY 01/13/21 [History Last Taken 06/01/22] potassium chloride 20 mEq tablet,extended release(part/cryst) 20 meq PO TID SUPPLEMENT 01/13/21 [History Last Taken 06/01/22] triamterene 37.5 mg-hydrochlorothiazide 25 mg capsule 1 cap PO DAILY Check with primary doctor 01/13/21 [History Last Taken 06/01/22] gabapentin 400 mg capsule 400 mg PO TID PAIN 05/08/21 [History Last Taken 06/01/22] cholecalciferol (vitamin D3) 125 mcg (5,000 unit) capsule 125 mcg PO DAILY SUPPLEMENT 06/01/22 [History Last Taken 06/01/22] albuterol sulfate 90 mcg/actuation aerosol inhaler (ProAir HFA) 2 puff inhalation Q4H PRN shortness of breath or wheezing 10/22/22 [History Last Taken Unknown] ferrous gluconate 324 mg (37.5 mg iron) tablet 324 mg PO DAILY 10/22/22 [History Last Taken Unknown] magnesium 250 mg tablet 250 mg PO DINNER SUPPLEMENT 10/22/22 [History Last Taken Unknown] PRIMAL DEFENCE 410 mg PO 1XD 11/12/22 [History Last Taken Unknown] metoprolol succinate 50 mg tablet,extended release 24 hr 50 mg PO QHS 11/13/22 [History Last Taken Unknown] Allergy/AdvReac Type Severity Reaction Status Date / Time oxycodone Allergy Rash Verified 11/13/22 09:28 adhesive tape AdvReac Rash Verified 11/13/22 09:28 Family History (Updated 10/22/22 @ 08:30 by Kanika Ojeda) Mother Hypertension Colon polyps Surgical History History of carpal tunnel release Hx of cholecystectomy Hx of hysterectomy Hx of thyroidectomy Hx of tonsillectomy Social History (Updated 10/22/22 @ 08:31 by Kanika Ojeda) Smoking Status: Never smoker alcohol intake: never ROS ROS Narrative General: Has been generally achy and feels she had a fever HENT: Denies headache, denies stuffy nose, denies sore throat EYES: Denies changes in vision Resp: Denies cough, denies shortness of breath Cardiac: Denies chest pain GI: Denies abdominal pain, denies changes in bowel, denies nausea/vomiting : Denies changes in urination Extremity: Has had some progressive swelling in her bilateral lower extremities MSK: Denies weakness Neuro: Denies any numbness/tingling Heme: Denies any bleeding or bruising Skin: [place] maybe there is some redness below her incision site Psychiatric: No complaints voiced Vital Signs Vital Signs Vital Signs: 11/13/22 09:26 11/13/22 09:31 Temperature 97.5 F L Temperature Source Temporal Pulse Rate 53 L Respiratory Rate 18 Respiratory Pattern Normal Blood Pressure 143/77 H Blood Pressure Mean 99 Blood Pressure Source Monitor Blood Pressure Position Semi-Fowlers Blood Pressure Location Left Arm Pulse Ox 100 Oxygen Delivery Method Room Air Weight Weight: 189 lb Body Mass Index (BMI) 33.5 Physical Exam Narrative General: Alert, oriented, no apparent distress HEENT: Atraumatic, normocephalic Eyes: Anicteric, normal conjunctiva, extraocular movements grossly intact Neck: Supple Respiratory: Clear to auscultation bilaterally, normal respiratory effort Cardiovascular: Regular rate and rhythm GI: Soft, nontender, nondistended Extremities: 1+ edema bilaterally Musculoskeletal: Moving all extremities Neuro: No overt focal neurological deficits Skin: No rashes or bleeding Psych: Cooperative Assessment & Plan Assessment/Plan (1) Encounter for screening for malignant neoplasm of colon: PLAN: She was explained alternatives, risk, benefits including outstanding bleeding, infection, sepsis, perforation, need for emergent urgent . She will have an ASA of 2.
[2022-11-13 10:54] VITALS: BP 120/57; BP 143/77; PULSE 63; RESP 16; TEMP 36.8; O2SAT 97
--- NOTE | 2022-11-13 10:57 | OP.COLON_ITS ---
Patient Name: Tiana Mckeon Procedure Date: 11/13/2022 10:22 AM Date of : 1960 Age: 62 Procedure: Colonoscopy Indications: Screening for colorectal malignant neoplasm Providers: Tee Cabrera DO Referring MD: Pk Donahue Medicines: Monitored Anesthesia Care Patient Profile: This is a 62 year old female. Refer to note in patient chart for documentation of history and physical. Last Colonoscopy: more than 10 years ago. Complications: No immediate complications. Procedure: Pre-Anesthesia Assessment: - Prior to the procedure, a History and Physical was performed, and patient medications and allergies were reviewed. The risks and benefits of the procedure and the sedation options and risks were discussed with the patient. All questions were answered and informed consent was obtained. Patient identification and proposed procedure were verified by the physician. Mental Status Examination: normal. Prophylactic Antibiotics: The patient does not require prophylactic antibiotics. Prior Anticoagulants: The patient has taken no anticoagulant or antiplatelet agents. After reviewing the risks and benefits, the patient was deemed in satisfactory condition to undergo the procedure. The anesthesia plan was to use monitored anesthesia care (MAC). Immediately prior to administration of medications, the patient was re-assessed for adequacy to receive sedatives. The heart rate, respiratory rate, oxygen saturations, blood pressure, adequacy of pulmonary ventilation, and response to care were monitored throughout the procedure. The physical status of the patient was re-assessed after the procedure. After I obtained informed consent, the scope was passed under direct vision. Throughout the procedure, the patient's blood pressure, pulse, and oxygen saturations were monitored continuously. The colonoscope was introduced through the anus and advanced to the cecum, identified by appendiceal orifice and ileocecal valve. The colonoscopy was performed without difficulty. The patient tolerated the procedure well. The quality of the bowel preparation was adequate. Scope In: 10:32:12 AM Scope Withdrawal Time 0 hours 8 minutes 56 seconds Scope Out: 10:47:36 AM Total Procedure Duration Time 0 hours 15 minutes 24 seconds Findings: The perianal and digital rectal examinations were normal. Multiple small and large-mouthed diverticula were found in the recto-sigmoid colon and sigmoid colon. A small amount of stool was found in the sigmoid colon and in the cecum. The exam was otherwise without abnormality on direct and retroflexion views. Impression: - Diverticulosis in the recto-sigmoid colon and in the sigmoid colon. - Stool in the sigmoid colon and in the cecum. - The examination was otherwise normal on direct and retroflexion views. - No specimens collected. Recommendation: - Discharge patient to home. - Resume previous diet. - Continue present medications. - Await pathology results. - Repeat colonoscopy in 10 years for screening purposes. Procedure Code(s): --- Professional --- G0121, Colorectal cancer screening; colonoscopy on individual not meeting criteria for high risk CPT copyright 2021 [employer]. All rights reserved. The codes documented in this report are preliminary and upon remote coders review may be revised to meet current compliance requirements. Tee Cabrera DO 11/13/2022 10:57:29 AM This report has been signed electronically. Number of Addenda: 0 Note Initiated On: 11/13/2022 10:22 AM
--- NOTE | 2022-11-13 10:58 | OP.CCLET_ITS ---
11/13/2022 Pk Donahue [address] [facility] [place] [address] Re : Colonoscopy procedure for Tiana Mckeon Dear Dr. Donahue This procedure was performed on November. My impressions and recommendations are as follows: Impressions : - Diverticulosis in the recto-sigmoid colon and in the sigmoid colon. - Stool in the sigmoid colon and in the cecum. - The examination was otherwise normal on direct and retroflexion views. - No specimens collected. Recommendations : - Discharge patient to home. - Resume previous diet. - Continue present medications. - Await pathology results. - Repeat colonoscopy in 10 years for screening purposes. My findings are described in the full procedure note, which is enclosed. If I can be of further assistance, please feel free to contact me at . Sincerely, Tee Cabrera, 11/13/2022 10:57:29 AM This report has been signed electronically.
[2022-11-13 11:00] VITALS: BP 105/64; BP 143/77; PULSE 65; RESP 16; O2SAT 98
[2022-11-13 11:05] VITALS: BP 121/68; BP 143/77; PULSE 59; RESP 16; O2SAT 97
[2022-11-13 11:08] VITALS: BP 129/72; BP 143/77; PULSE 64; RESP 16; TEMP 36.6; O2SAT 96
[2022-11-13 11:23] VITALS: BP 143/77
== END 2022-11-13 11:39 | disposition home or self-care (01) ==
LOC: EN 09:03 → AC 09:07
PROVIDERS: PCP Family Medicine; Referring Provider Family Medicine; Visit Provider Internal Medicine Gastroenterology
PROC: 0DJD8ZZ Inspection of Lower Intestinal Tract, Via Natural or Artificial Opening Endoscopic (ICD-10-PCS; CPT 45378; principal; 2022-11-13 10:10)
DX: Z12.11 Encounter for screening for malignant neoplasm of colon (principal); M06.9 Rheumatoid arthritis, unspecified; K21.9 Gastro-esophageal reflux disease without esophagitis; I12.9 Hypertensive chronic kidney disease with stage 1 through stage 4 chronic kidney disease, or unspecified chronic kidney disease; N18.9 Chronic kidney disease, unspecified; M79.7 Fibromyalgia; G89.29 Other chronic pain; Z79.899 Other long term (current) drug therapy; E07.9 Disorder of thyroid, unspecified; Z79.890 Hormone replacement therapy; F32.A Depression, unspecified
CPT/HCPCS: G0121; J7120; J2405

== ENCOUNTER → 2023-10-26 | Outpatient (CLI) | payer MEDICARE, MEDICAID, SELFPAY ==
[2023-10-26 11:22] LABS: Cholesterol 175 mg/dL (200); High Density Lipoprotein 47 mg/dL; T4 Free Direct 1.12 ng/dL (0.76-1.46); Triglycerides 183 mg/dL; Very Low Density Lipoprotein 37 mg/dL (5-40)
== END | disposition home or self-care (01) ==
PROVIDERS: PCP Family Medicine; Referring Provider Family Medicine; Visit Provider Family Medicine
DX: I10 Essential (primary) hypertension (principal); E03.9 Hypothyroidism, unspecified
CPT/HCPCS: 36415; 80061; 84439; 84443

== ENCOUNTER 2024-05-09 12:49 | Emergency (ER) | payer MEDICARE, MEDICAID, SELFPAY ==
[2024-05-09] VITALS (12 sets, daily range): BP systolic 136–177; BP diastolic 67–101; PULSE 52–72; RESP 13–18; TEMP 36.6; O2SAT 93–98; BMI 34.9
--- NOTE | 2024-05-09 14:10 | ED.VIS.DYS ---
HPI History of Present Illness Chief Complaint: Shortness of Breath PFSH PFSH Medical History Post-menopausal Depression Anxiety Thyroid disease Anemia Gastric reflux Non-smoker Leg cramps History of pain when walking Hypothyroid CKD (chronic kidney disease) Hypertension Infection of spinal cord stimulator Rheumatoid arthritis Chronic pain Arthritis Fibromyalgia Migraines Home Medications ?Medication ?Instructions ?Recorded ?Last Taken ?Type buprenorphine 20 mcg/hour weekly 1 patch transdermal QWEEK PAIN 01/13/21 05/28/22 History transdermal patch (Butrans) hydrocodone-acetaminophen 5-325mg 1 tab PO Q6H PRN Pain 01/13/21 11/13/22 07:00 History 5mg-325mg hydroxychloroquine 200 mg tablet 200 mg PO DAILY 01/13/21 05/31/22 History levothyroxine 88 mcg tablet 88 mcg PO DAILY 01/13/21 06/01/22 History (Synthroid) omeprazole 40 mg capsule,delayed 40 mg PO DAILY 01/13/21 06/01/22 History release potassium chloride 20 mEq 20 meq PO TID SUPPLEMENT 01/13/21 06/01/22 History tablet,extended release(part/cryst) triamterene 37.5 1 cap PO DAILY Check with primary 01/13/21 06/01/22 History mg-hydrochlorothiazide 25 mg doctor capsule gabapentin 400 mg capsule 400 mg PO TID PAIN 05/08/21 06/01/22 History cholecalciferol (vitamin D3) 125 125 mcg PO DAILY SUPPLEMENT 06/01/22 06/01/22 History mcg (5,000 unit) capsule albuterol sulfate 90 mcg/actuation 2 puff inhalation Q4H PRN 10/22/22 Unknown History aerosol inhaler (ProAir HFA) shortness of breath or wheezing ferrous gluconate 324 mg (37.5 mg 324 mg PO DAILY 10/22/22 Unknown History iron) tablet magnesium 250 mg tablet 250 mg PO DINNER SUPPLEMENT 10/22/22 Unknown History PRIMAL DEFENCE 410 mg PO 1XD 11/12/22 Unknown History metoprolol succinate 50 mg 50 mg PO QHS 11/13/22 Unknown History tablet,extended release 24 hr Allergy/AdvReac Type Severity Reaction Status Date / Time oxycodone Allergy Rash Verified 05/09/24 12:52 adhesive tape AdvReac Rash Verified 05/09/24 12:52 Family History Mother Hypertension Colon polyps Surgical History Hx of hysterectomy History of carpal tunnel release Hx of thyroidectomy Hx of cholecystectomy Hx of tonsillectomy Social History Smoking Status: Never smoker alcohol intake: never EXAM Physical Exam Const Vital Signs: 05/09/24 12:50 05/09/24 13:50 05/09/24 14:00 Temperature 97.9 F Temperature Source Temporal Pulse Rate 72 57 L 68 Respiratory Rate 18 14 18 Respiratory Effort Respiratory Depth Respiratory Pattern Blood Pressure 177/85 H 161/86 H 161/86 H Blood Pressure Mean 115 111 111 Pulse Ox 98 96 95 Oxygen Delivery Method Room Air Room Air Room Air 05/09/24 14:14 05/09/24 14:40 05/09/24 15:18 Temperature Temperature Source Pulse Rate 59 L Respiratory Rate 17 Respiratory Effort Normal Short of Breath Respiratory Depth Normal Respiratory Pattern Normal Blood Pressure 140/80 H Blood Pressure Mean 100 Pulse Ox 98 95 Oxygen Delivery Method Room Air Room Air Room Air 05/09/24 16:00 05/09/24 17:00 05/09/24 17:15 Temperature 97.9 F Temperature Source Pulse Rate 54 L 52 L 52 L Respiratory Rate 13 14 14 Respiratory Effort Respiratory Depth Respiratory Pattern Blood Pressure 136/67 H 161/74 H 161/74 H Blood Pressure Mean 90 103 103 Pulse Ox 94 96 96 Oxygen Delivery Method Room Air Room Air 05/09/24 18:00 05/09/24 19:00 Temperature Temperature Source Pulse Rate 55 L 53 L Respiratory Rate 16 15 Respiratory Effort Respiratory Depth Respiratory Pattern Blood Pressure 153/101 H Blood Pressure Mean 118 Pulse Ox 95 93 Oxygen Delivery Method Room Air Room Air MDM MDM MDM Narrative Medical decision making narrative: HISTORY OF PRESENT ILLNESS: 63-year-old female presents concern for shortness of breath. The patient notes a few weeks of shortness of breath with exertion. The patient states this been ongoing for several weeks. No precipitating factors. She does note years ago she had a bit of heart failure. Notes she does not lay down flat at night secondary to pain. Notes some chronic lower extremity swelling. Denies unilateral leg swelling. Denies bleeding diathesis. The patient denies recent surgery in the last 4 weeks or immobilization in the last 3 days, denies previous diagnosis of DVT or PE, hemoptysis, unilateral leg swelling or malignancy with treatment the last 6 months or palliative. No estrogen use noted. Denies sick contacts. REVIEW OF SYSTEMS: Pertinent positives: Shortness of breath Pertinent negatives: Cough, fever, chills, chest pain, bleeding diathesis PHYSICAL EXAM: Nursing triage notes reviewed, Vital signs reviewed Constitutional: please see [facility] HENT: MMM Eyes: Pupils equal round and reactive to light, Extraocular muscles intact Neck: No stridor, no JVD, full neck ROM Lungs: Clear to auscultation, No wheezing or rales. No increased work of breathing, no conversational dyspnea, no accessory muscle use, no nasal flaring. No respiratory distress noted Heart: Regular rate and rhythm, No murmurs, No rubs and No gallops, 2+ distal pulses (radial, femoral, posterior tibial) in all extremities Abdomen: Soft, there is no tenderness, rigidity, rebound or guarding, no obvious peritoneal signs, no palpable pulsatile abdominal masses, no auscultated abdominal bruit : No CVAT Extremities: No edema Neuro: No new focal neurological deficits, cranial nerves II through XII intact, 5/5 strength in all present extremities. Intact sensation to light touch in all present extremities, 2+ reflexes bilateral patella tendons. Skin: No rash or lesions noted MEDICAL DECISION MAKING: Chief Complaint: Shortness of breath External records reviewed: Reviewed prior echocardiogram from 2022 showed ejection fraction 65% Factors affecting care: Fibromyalgia, hypothyroidism Social determinants of health: none History obtained from others: none Consults: none [facility] Narrative: Patient was initially hypertensive with a blood pressure 177/85 otherwise afebrile and nontoxic-appearing. She was hydrated 98% on room air. Exam without focal cardiopulmonary abnormality. No stigmata VTE, CHF. I considered the following differential diagnosis: CHF exacerbation, ACS, arrhythmia, anemia, electrolyte disturbance, COVID, RSV, flu, pneumonia I obtained a broad lab and imaging workup to further elucidate etiology of the patient's complaints ALL IMAGES (IF OBTAINED) HAVE BEEN PERSONALLY REVIEWED AND INTERPRETED BY MYSELF. EKG was obtained in triage per protocol. EKG shows sinus bradycardia rate of 59, left axis deviation, normal intervals, no STEMI, no sign of atrial fibrillation, WPW or ARVD, Brugada syndrome I added additional labs to assess for signs of heart failure, anemia, electrolyte disturbances, etc. etc. I have personally reviewed the patient's chest x-ray. Chest x-ray is unremarkable for pulmonary edema, pneumothorax, pneumonia or focal cardiopulmonary abnormality. COVID/flu/RSV negative CBC without leukocytosis, severe anemia, no thrombocytopenia. BNP within normal limits suggesting no volume overload, heart failure initial troponin 26. Patient had no chest pain. She complained of shortness of breath and cough for 3 weeks. EKG is nonischemic. I have a low suspicion that her shortness of breath is related to ACS despite her troponin value. Will await second troponin to make a better clinical decision. Second troponin is stable. With no chest pain Evalose patient for ACS. Upon reassessment patient's vital signs remained stable. The patient ambulated without significant hypoxia. She maintained saturation of 94%. This is reassuring. Unclear etiology but no sign of a life or limb threatening pathology. She is appropriate for discharge home The patient and/or family, caregivers express understanding. The patient and/or family, caregivers agrees with the plan. Shared decision making: I will have a discussion with the patient and or visitors regarding risk/benefits of further testing or admission. They will be made aware of of the risk/benefits inherent in this decision they will be given the opportunity to voice understanding. Total critical care time today provided was at least 0 minutes. This excludes separately billable procedures. Critical care time (if documented) is secondary to the patient having high probability of clinically significant/life threatening deterioration in the patient's condition which required my urgent intervention. Impression: 1. Dyspnea on exertion 2. Elevated blood pressure 3. Thrombocytopenia Dispo: Discharge This note was generated with [employer] dictation software. It may contain incorrect words, spelling, and punctuation that were not noted in review of the chart prior to signing. Lab Data Labs: Laboratory Results - last 24 hr 05/09/24 05/09/24 14:37 18:18 WBC 10.0 RBC 4.60 Hgb 14.0 Hct 43.1 MCV 93.7 MCH 30.4 MCHC 32.5 RDW Std Deviation 45.9 H RDW Coeff of Hiro 13.5 Plt Count 139 L MPV 9.4 Immature Gran % (Auto) 0.500 Neut % (Auto) 86.1 H Lymph % (Auto) 6.5 L Day % (Auto) 6.4 Eos % (Auto) 0.1 Baso % (Auto) 0.4 Absolute Neuts (auto) 8.6 H Absolute Lymphs (auto) 0.65 L Nucleated RBC % 0 Sodium 141 Potassium 4.2 Chloride Direct 104 Carbon Dioxide 23.8 Anion Gap 13 BUN 26 H Creatinine 1.04 Estim Creat Clear Calc 57.20 Est GFR (MDRD) Non-Af 60 BUN/Creatinine Ratio 24.7 H Glucose 195 H Calcium 9.4 Troponin T High Sens 26 H Troponin T Hi Sens 2 Hr 25 H Troponin T Hi Sens 2Hr Delta 1 NT pro BNP II 126 Radiography Diagnostic Testing: Clinical Impression(s) from Imaging Studies Chest X-Ray 05/09/24 14:40 IMPRESSION: No acute abnormality is seen. Small hiatal hernia. Reading Location: [facility] Discharge Plan Triage Chief Complaint: Shortness of Breath ED Provider: Carlo Ruff Dx/Rx/DC Orders Instructions: ED Dyspnea Prescriptions: No Action gabapentin 400 mg capsule 400 mg PO TID Patient Comments: take 1 capsule by mouth three times a day albuterol sulfate [ProAir HFA] 90 mcg/actuation HFA aerosol inhaler 2 puff inhalation Q4H PRN (Reason: shortness of breath or wheezing) ferrous gluconate 324 mg (37.5 mg iron) tablet 324 mg PO DAILY hydrocodone-acetaminophen 5-325 mg Tablet 1 tab PO Q6H PRN (Reason: Pain) omeprazole 40 mg Capsule,Delayed Release(Dr/Ec) 40 mg PO DAILY triamterene-hydrochlorothiazid 37.5-25 mg Capsule 1 cap PO DAILY levothyroxine [Synthroid] 88 mcg Tablet 88 mcg PO DAILY potassium chloride 20 mEq tablet,ER particles/crystals 20 meq PO TID Patient Comments: take 3 capsules by mouth once daily hydroxychloroquine 200 mg Tablet 200 mg PO DAILY buprenorphine [Butrans] 20 mcg/hour Patch Weekly 1 patch TRANSDERMAL QWEEK Rx Instructions: on wednesdays cholecalciferol (vitamin D3) 125 mcg (5,000 unit) Capsule 125 mcg PO DAILY magnesium 250 mg tablet 250 mg PO DINNER PRIMAL DEFENCE 410 mg PO 1XD Rx Instructions: DIETARY SUPPLEMENT metoprolol succinate 50 mg Tablet Extended Release 24 Hr 50 mg PO QHS Primary Care Provider: Pk Donahue Referrals: Pk Donahue, [Primary Care Provider] - Activity Restrictions/Additional Instructions: Thank you for trusting us with your care today! Your labs images were reassuring. Specifically there is no sign of significant pneumonia, heart failure, damage to your heart, abnormal heart rhythms, issues with electrolyte abnormal. Your chest x-ray was normal. The cause of your symptoms are unclear. Please take Tylenol (2 pills, 650 mg), ibuprofen (2 pills, 400 mg) every 6 hours as needed for pain and fever control. Please return to the emergency department if your symptoms change or worsen. Please follow with your primary care physician for further outpatient evaluation and management. Specifically for an echocardiogram Print Language: Tanzanian Disposition Disposition: Home, Self Care Discharge Date/Time: 05/09/24 19:26
--- NOTE | 2024-05-09 14:19 | EKG12_ITS ---
Test Reason : SOB Blood Pressure : */* mmHG Vent. Rate : 59 BPM Atrial Rate : 59 BPM P-R Int : 170 ms QRS Dur : 82 ms QT Int : 402 ms P-R-T Axes : 46 -13 22 degrees QTcB Int : 397 ms Sinus bradycardia Possible Left atrial enlargement Borderline ECG Confirmed by Nick Sullivan ([id number]), development editor MOY STERLING ([id number]) on 05/10/2024 10:40:50 AM Referred By: Confirmed By: Nick Sullivan
--- NOTE | 2024-05-09 14:40 | RAD_ITS ---
PROCEDURE: CHEST 1 VIEW (PORTABLE) REASON FOR EXAM: Shortness of breath. TECHNIQUE: Frontal view of the chest. COMPARISON: Comparison is made with prior study dated June 02, 2022. FINDINGS: EKG electrodes are seen. The heart size is normal. The lungs are clear. Small hiatal hernia. RAD/Chest 1 View (Portable) IMPRESSION: No acute abnormality is seen. Small hiatal hernia. Reading Location: [facility]
[2024-05-09 14:47] LABS: Absolute Lymphocyte Count 0.65 X10^3/uL (0.83-4.51); Absolute Neutrophil Count 8.6 X10^3/uL (2.0-7.7); Basophil# 0.04 X10^3/uL; Basophil% 0.4 % (0-1); Eosinophil# 0.01 X10^3/uL; Eosinophils% 0.1 % (0-5); Hematocrit 43.1 % (37-47); Lymphocyte # 0.65 X10^3/ul (0.83-4.51); Lymphocyte % 6.5 % (19-41); Mean Corp Hgb Conc 32.5 g/dL (32-36); Mean Corpuscular Hgb 30.4 pg (27.0-32.0); Mean Corpuscular Volume 93.7 fL (81-99); Mean Platelet Vol. 9.4 fl (6.2-12.0); Monocyte# 0.64 X10^3/uL; Monocyte% 6.4 % (0-10); NRBC Flagged by Analyzer 0 % (0-5); Neutrophil % 86.1 % (47-70); Platelet Count 139 K/mm3 (150-450); RBC Distribution Width CV 13.5 % (11.6-14.6); RBC Distribution Width SD 45.9 fl (35.1-43.9)
[2024-05-09 15:18] LABS: Pro- Brain NATRIURETIC PEPTIDE 126 pg/mL (<=900); Troponin T High Sensitivity 26 ng/L (<=14)
[2024-05-09 17:29] LABS: Anion Gap 13 (5-15); BUN 26 mg/dL (4-19); BUN/Creat Ratio 24.7 RATIO (10-20); Calcium 9.4 mg/dL (7.6-11.0); Carbon Dioxide 23.8 mmol/L (22.0-29.0); Chloride 104 mmol/L (96-108); Creatinine, Serum 1.04 mg/dL (0.70-1.20); EST Glomerular Filtration Rate 60 (>60); Glucose 195 mg/dL (70-99); Potassium 4.2 mmol/L (3.3-5.1); Sodium Level 141 mmol/L (133-145)
[2024-05-09 18:46] LABS: TROPONIN VARIANCE 2 HR 1; Troponin T High Sens 2 HR 25 ng/L (<=14)
== END 2024-05-09 19:26 | disposition home or self-care (01) ==
PROVIDERS: Emergency Provider Emergency Medicine; PCP Family Medicine; Visit Provider Emergency Medicine
DX: R06.00 Dyspnea, unspecified (principal); N18.9 Chronic kidney disease, unspecified; R03.0 Elevated blood-pressure reading, without diagnosis of hypertension; D69.6 Thrombocytopenia, unspecified; I12.9 Hypertensive chronic kidney disease with stage 1 through stage 4 chronic kidney disease, or unspecified chronic kidney disease; E03.9 Hypothyroidism, unspecified; Z79.890 Hormone replacement therapy; K21.9 Gastro-esophageal reflux disease without esophagitis; Z90.49 Acquired absence of other specified parts of digestive tract; Z90.710 Acquired absence of both cervix and uterus
CPT/HCPCS: 71045; 80048; 83880; 84484; 85025; 87631; 93005; 99284; A4216

== ENCOUNTER → 2024-06-08 | Outpatient (CLI) | payer MEDICARE, MEDICAID, SELFPAY ==
--- NOTE | 2024-06-08 10:47 | ECHOD_ITS ---
Reason For Study Reason For Study: HEART Procedure This was a 2D Doppler, Color Flow transthoracic echocardiogram. Exam performed in department. Left Ventricle Normal LV size. Left ventricular systolic function is normal. The left ventricular ejection fraction is 60 %. No regional wall motion abnormalities noted. Right Ventricle Normal RV size. Normal systolic function. Atria Normal left atrium. Normal right atrium. Mitral Valve Normal mitral valve. Tricuspid Valve Normal tricuspid valve. Aortic Valve Normal aortic valve. Pulmonic Valve Normal pulmonic valve. Great Vessels Normal aortic root. The pulmonary artery is normal size. Normal inferior vena cava. Pericardium/Pleural Trivial pericardial effusion. MMode/2D Measurements & Calculations LVIDd: 4.3 cm IVSd: 0.85 cm Ao root diam: 2.7 cm LVIDs: 2.9 cm LVPWd: 0.82 cm RVDd: 3.3 cm FS: 32.6 % LAV(MOD-bp): 41.3 ml LVAd ap4: 24.2 cm2 SV(MOD-sp4): 45.3 ml LAV(MOD-bp) Indexed: 21.3 ml/m2 LVLd ap4: 7.1 cm SI(MOD-sp4): 23.4 ml/m2 LAV(MOD-sp2): 42.7 ml EDV(MOD-sp4): 67.6 ml LAV(MOD-sp4): 38.0 ml EDV(sp4-el): 70.6 ml LVAs ap4: 12.3 cm2 LVLs ap4: 5.8 cm ESV(MOD-sp4): 22.3 ml ESV(sp4-el): 22.1 ml EF(MOD-sp4): 67.1 % EF(sp4-el): 68.6 % SV(sp4-el): 48.4 ml LA A4 area: 16.2 cm2 LA dimension(2D): 2.9 cm RA A4 area: 14.1 cm2 TAPSE: 2.3 cm Time Measurements MV dec time: 0.24 sec Doppler Measurements & Calculations MV E max [place]: 74.4 cm/sec Lat Peak E' [place]: 7.2 cm/sec Med Peak E' [place]: 6.7 cm/sec MV A max [place]: 100.7 cm/sec E/E' lat: 10.4 E/E' med: 11.1 MV E/A: 0.74 Ao V2 max: 168.0 cm/sec LV V1 max: 139.6 cm/sec PA V2 max: 103.7 cm/sec Ao max P.3 mmHg LV V1 max P.8 mmHg ECHO/Echo Complete Interpretation Summary Normal LV size. Left ventricular systolic function is normal. The left ventricular ejection fraction is 60 %. Trivial pericardial effusion. Structurally normal valves. Ordering Physician: Pk Donahue Referring Physician: Pk Donahue Performed By: Mari Clark RDCS
== END | disposition home or self-care (01) ==
PROVIDERS: PCP Family Medicine; Referring Provider Family Medicine; Visit Provider Family Medicine
DX: R06.09 Other forms of dyspnea (principal)
CPT/HCPCS: 93306

== ENCOUNTER 2024-06-10 21:25 | Inpatient (IN) | payer MEDICARE, MEDICAID, SELFPAY ==
[2024-06-10] VITALS (10 sets, daily range): BP systolic 185–205; BP diastolic 76–91; PULSE 90–99; RESP 18–38; TEMP 36.6–37; O2SAT 84–99; BMI 34.9
--- NOTE | 2024-06-10 21:49 | EKG12_ITS ---
Test Reason : SOB Blood Pressure : */* mmHG Vent. Rate : 96 BPM Atrial Rate : 96 BPM P-R Int : 168 ms QRS Dur : 82 ms QT Int : 336 ms P-R-T Axes : 53 -17 45 degrees QTcB Int : 424 ms Normal sinus rhythm Possible Left atrial enlargement Possible Lateral infarct , age undetermined Abnormal ECG Confirmed by GERARD GÓMEZ, LOUIS ([id number]), department editor DAVY MAIN ([id number]) on 06/13/2024 5:58:01 AM Referred By: Confirmed By: LOUIS GEE MD
--- NOTE | 2024-06-10 21:51 | ED.VIS.DYS ---
HPI History of Present Illness Chief Complaint: Shortness of Breath Informant: patient Narrative Narrative: 63-year-old female states she has been out of breath for about 6 weeks. She feels like it is getting worse. She was seen here 4 weeks ago for it, advised to follow-up which she did and she had an outpatient echocardiogram that was normal but today she is much worse and feels like she had some chest burning and some phlegm in her throat and chest. She has had a minor cough today only, but in the past month she has not had a cough, fevers or chills, or any other symptoms other than the dyspnea mostly with exertion. She has some leg edema but it has not been any different in the last month. No known history of COPD never smoker, however she had an albuterol inhaler at home that she tried a couple times a day and it helped a little. [facility] Medical History Post-menopausal Depression Anxiety Thyroid disease Anemia Gastric reflux Non-smoker Leg cramps History of pain when walking Hypothyroid CKD (chronic kidney disease) Hypertension Infection of spinal cord stimulator Rheumatoid arthritis Chronic pain Arthritis Fibromyalgia Migraines Home Medications ?Medication ?Instructions ?Recorded ?Last Taken ?Type buprenorphine 20 mcg/hour weekly 1 patch transdermal QWEEK PAIN 01/13/21 05/28/22 History transdermal patch (Butrans) hydrocodone-acetaminophen 5-325mg 1 tab PO Q6H PRN Pain 01/13/21 11/13/22 07:00 History 5mg-325mg levothyroxine 88 mcg tablet 100 mcg PO DAILY 01/13/21 06/01/22 History (Synthroid) omeprazole 40 mg capsule,delayed 40 mg PO DAILY 01/13/21 06/01/22 History release potassium chloride 20 mEq 20 meq PO TID SUPPLEMENT 01/13/21 06/01/22 History tablet,extended release(part/cryst) triamterene 37.5 1 cap PO DAILY Check with primary 01/13/21 06/01/22 History mg-hydrochlorothiazide 25 mg doctor capsule gabapentin 400 mg capsule 400 mg PO TID PAIN 05/08/21 06/01/22 History cholecalciferol (vitamin D3) 125 125 mcg PO DAILY SUPPLEMENT 06/01/22 06/01/22 History mcg (5,000 unit) capsule albuterol sulfate 90 mcg/actuation 2 puff inhalation Q4H PRN 10/22/22 Unknown History aerosol inhaler (ProAir HFA) shortness of breath or wheezing ferrous gluconate 324 mg (37.5 mg 324 mg PO DAILY 10/22/22 Unknown History iron) tablet magnesium 250 mg tablet 400 mg PO DINNER SUPPLEMENT 10/22/22 Unknown History PRIMAL DEFENCE 410 mg PO 1XD 11/12/22 Unknown History metoprolol succinate 50 mg 50 mg PO QHS 11/13/22 Unknown History tablet,extended release 24 hr adalimumab 40 mg/0.8 mL 40 mg subcut .1XWEEK 06/10/24 Unknown History subcutaneous pen kit (Humira Pen) allopurinol 300 mg tablet 300 mg PO DAILY 06/10/24 Unknown History colchicine 0.6 mg tablet 0.6 mg PO DAILY 06/10/24 Unknown History prednisone 5 mg tablet 15 mg PO DAILY 06/10/24 Unknown History Allergy/AdvReac Type Severity Reaction Status Date / Time oxycodone Allergy Rash Verified 06/10/24 21:28 adhesive tape AdvReac Rash Verified 06/10/24 21:28 Family History Mother Hypertension Colon polyps Surgical History Hx of hysterectomy History of carpal tunnel release Hx of thyroidectomy Hx of cholecystectomy Hx of tonsillectomy Social History household members: none Smoking Status: Never smoker alcohol intake: never substance use type: does not use ROS ROS ED Constitutional Constitutional ED: Denies chills or fever(s) Eyes Eyes: Denies change in vision or diplopia ENT ENT ED: Reports other Details: Postnasal drip and phlegmy just today ; Denies rhinorrhea or sore throat Cardiovascular Cardiovascular: Reports chest pain and leg edema; Denies orthopnea, palpitations or syncope Respiratory/Chest Respiratory/Chest: Reports dyspnea and dyspnea on exertion; Denies cough or orthopnea Gastrointestinal Gastrointestinal: Denies abdominal pain, diarrhea, nausea or vomiting Genitourinary Genitourinary ED: Denies dysuria or hematuria Musculoskeletal Musculoskeletal: Reports arthralgias and back pain; Denies neck pain Integumentary Denies abscess or rash Neurologic Neurologic: Denies headache(s), paresthesias or weakness Psychiatric Psychiatric: Denies suicidal thoughts EXAM Physical Exam Const Vital Signs: 06/10/24 21:26 06/10/24 21:27 06/10/24 21:28 Temperature 98.4 F 98.4 F Temperature Source Oral Oral Pulse Rate 90 90 Respiratory Rate 20 H 20 H Respiratory Effort Respiratory Pattern Blood Pressure 205/91 H 205/91 H Blood Pressure Mean 129 129 Pulse Ox 84 92 95 Oxygen Delivery Method Room Air Nasal Cannula Nasal Cannula Oxygen Flow Rate (L/min) 2 2 06/10/24 21:49 06/10/24 22:08 06/10/24 22:26 Temperature Temperature Source Pulse Rate 92 99 Respiratory Rate 20 H 22 H Respiratory Effort Respiratory Pattern Tachypnea Blood Pressure 185/83 H Blood Pressure Mean 117 Pulse Ox 95 92 Oxygen Delivery Method Nasal Cannula Nasal Cannula Oxygen Flow Rate (L/min) 2 2 06/10/24 22:27 06/10/24 22:48 06/10/24 23:00 Temperature 98.2 F 98 F Temperature Source Oral Oral Pulse Rate 98 95 Respiratory Rate 18 27 H Respiratory Effort Short of Breath Labored Respiratory Pattern Tachypnea Blood Pressure 187/79 H 185/76 H Blood Pressure Mean 115 112 Pulse Ox 99 95 Oxygen Delivery Method Nasal Cannula Nasal Cannula Nasal Cannula Oxygen Flow Rate (L/min) 2 2 2 06/10/24 23:00 06/10/24 23:45 Temperature 98.6 F Temperature Source Pulse Rate 95 97 Respiratory Rate 24 H 38 H Respiratory Effort Respiratory Pattern Blood Pressure 185/76 H 185/83 H Blood Pressure Mean 112 117 Pulse Ox 98 91 Oxygen Delivery Method Oxygen Flow Rate (L/min) Positive well nourished and well developed General Appearance ED: well developed and NAD HEENT Reports moist mucous membranes normocephalic and atraumatic Eyes PERRL and EOMs intact bilaterally Neck full ROM and supple Resp normal respiratory effort and clear to auscultation bilaterally Cardio regular rate, regular rhythm and no murmurs GI non-tender and non-distended Auscultation: normoactive bowel sounds Palpation: soft Back/Spine no CVA tenderness General Back: other FROM Extremity normal to inspection General Extremety ED: Yes edema; Negative for pulses abnormal or tenderness General Extremity: edema bilateral lower extremity Details: mild; Negative for pulses abnormal Neuro oriented x3, CN's II-XII intact bilaterally and no sensory deficits noted Sensorium / Orientation: awake and alert Motor Exam: strength 5/5 throughout Psych mental status grossly normal Skin no rashes or lesions noted and no wounds MDM MDM MDM Narrative Medical decision making narrative: Patient 84% on room air in triage so nurses put her on O2 liter nasal cannula she is 95%. Is very hypertensive so going to treat that while working her up and giving her a duo nebulizer treatment. Also after reviewing her prior ED visit, she was ruled out for acute heart failure, pneumonia, ACS but a D-dimer was not obtained, she is low risk for pulmonary embolus has never had a DVT or PE, has no sign of recurrent DVT, no recent long travel, immobilization, or surgery so she is appropriate for a D-dimer. This was done and significantly elevated, so I sent her for stat CTA of the chest, and I reviewed the images upon her arriving back in the room, on my interpretation it shows a central right pulmonary artery embolus and at least 1 subsegmental embolus in the left lung, so I ordered Lovenox 1 mg/kg, discussed with her and family, given her hypoxemia she should be admitted. She is currently 92% on 2 L nasal cannula. Her blood pressure has come down to 166/84. She will need Dopplers of her legs but that is not available at the hour the patient is here. The source of this is unknown at this time. History & Record Review Additional record(s) reviewed:: Prior ED visit and Other (Outpatient echo from today: Normal including normal EF) Lab Data Attestation: I reviewed the patient's lab results. Labs: Laboratory Results - last 24 hr 06/10/24 06/10/24 22:21 22:29 WBC 11.4 H RBC 5.01 Hgb 15.2 H Hct 45.7 MCV 91.2 MCH 30.3 MCHC 33.3 RDW Std Deviation 46.0 H RDW Coeff of Hiro 13.8 Plt Count 180 MPV 10.1 Immature Gran % (Auto) 0.700 Neut % (Auto) 67.6 Lymph % (Auto) 16.3 L Tift % (Auto) 10.3 H Eos % (Auto) 4.4 Baso % (Auto) 0.7 Absolute Neuts (auto) 7.7 Absolute Lymphs (auto) 1.86 Nucleated RBC % 0 D-Dimer Quant (PE/DVT) 3.20 H* Sodium 141 Potassium 3.3 Chloride 102 Carbon Dioxide 25.2 Anion Gap 14 BUN 21 H Creatinine 1.34 H Estim Creat Clear Calc 44.39 L Est GFR (MDRD) Non-Af 44 L BUN/Creatinine Ratio 15.4 Glucose 127 H Calcium 9.7 Troponin T High Sens 37 H D Radiography Diagnostic Testing: Clinical Impression(s) from Imaging Studies Chest X-Ray 06/10/24 22:36 IMPRESSION: Generalized interstitial prominence without focal consolidation. Reading Location: [facility] Rhythm Strip Rhythm Strip: Sinus Rhythm Rate: 95 Ectopy: None EKG Initial EKG: Attestation: I personally reviewed and interpreted this EKG as follows: Interpretation: Sinus Rhythm and No Acute Injury Pattern Comments: RSR' otherwise nml EKG Management Discussion w/another healthcare provider: Hospitalist and Radiologist (Dr. Moreira, called to discuss findings of pulmonary embolism bilat) Discharge Plan Dx/Rx/DC Orders Clinical Impression: Pulmonary embolism, Hypoxemia, Accelerated hypertension Disposition Disposition: Acute Care Hospital [facility]
[2024-06-10] MEDS: Ipratropium/Albuterol Sulfate 3 ML AMPUL.NEB INHALATION (22:03)
[2024-06-10] MEDS: hydrALAZINE 20 MG/ML Vial IV (22:23)
[2024-06-10 22:36] LABS: Absolute Lymphocyte Count 1.86 X10^3/uL (0.83-4.51); Absolute Neutrophil Count 7.7 X10^3/uL (2.0-7.7); Basophil# 0.08 X10^3/uL; Basophil% 0.7 % (0-1); Eosinophils% 4.4 % (0-5); Hematocrit 45.7 % (37-47); Hemoglobin 15.2 g/dL (12.0-15.0); Lymphocyte # 1.86 X10^3/ul (0.83-4.51); Lymphocyte % 16.3 % (19-41); Mean Corp Hgb Conc 33.3 g/dL (32-36); Mean Corpuscular Hgb 30.3 pg (27.0-32.0); Mean Corpuscular Volume 91.2 fL (81-99); Mean Platelet Vol. 10.1 fl (6.2-12.0); Monocyte# 1.18 X10^3/uL; Monocyte% 10.3 % (0-10); NRBC Flagged by Analyzer 0 % (0-5); Neutrophil # 7.74 X10^3/uL (2.7-7.7); Neutrophil % 67.6 % (47-70); Platelet Count 180 K/mm3 (150-450); RBC Distribution Width CV 13.8 % (11.6-14.6); Red Blood Count 5.01 M/mm3 (4.2-5.4); White Blood Count 11.4 K/mm3 (4.4-11.0)
--- NOTE | 2024-06-10 22:36 | RAD_ITS ---
PROCEDURE: CHEST PA AND LATERAL 06/10/2024 REASON FOR EXAM: SOB TECHNIQUE: Frontal and lateral views of the chest. COMPARISON: 05/09/2024 FINDINGS: Cardiomediastinal silhouette is within normal limits. Generalized interstitial prominence involving the mid to lower lung zones. No confluent airspace consolidation, pleural effusion or pneumothorax. RAD/Chest PA and Lateral IMPRESSION: Generalized interstitial prominence without focal consolidation. Reading Location: [facility]
[2024-06-10 22:57] LABS: Anion Gap 14 (5-15); BUN 21 mg/dL (4-19); BUN/Creat Ratio 15.4 RATIO (10-20); Calcium,Total 9.7 mg/dL (7.6-11.0); Carbon Dioxide 25.2 mmol/L (21.0-32.0); Chloride 102 mmol/L (98-108); Creatinine, Serum 1.34 mg/dL (0.70-1.20); EST Glomerular Filtration Rate 44 (>60); Estimated Creatinine Clearance 44.39 ml/min (50-250); Glucose 127 mg/dL (70-99); Potassium 3.3 mmol/L (3.3-5.1); Sodium Level 141 mmol/L (133-145); Troponin T High Sensitivity 37 ng/L (<=14)
--- NOTE | 2024-06-10 23:02 | CT_ITS ---
PROCEDURE: CTA CHEST W/WO CONTRAST 06/10/2024 REASON FOR EXAM: DYSPNEA, ELEVATED D-DIMER TECHNIQUE: CTA imaging of the chest, abdomen and pelvis without and with intravenous contrast. Coronal and Sagittal reconstruction series were provided. 3D, 3D post processing, 3D reconstructions, Maximum intensity projection (MIPs) Volume rendering and Shaded surface rendering was provided. One or more dose reduction techniques were used (e.g., Automated exposure control, adjustment of the mA and/or kV according to patient size, use of iterative reconstruction technique). COMPARISON: None FINDINGS: Heart size is within normal limits. No significant pericardial effusion or coronary artery calcifications. Normal caliber thoracic aorta without gross dissection. Normal caliber pulmonary arteries with filling defects in the right lower lobar and left lower segmental pulmonary arteries consistent with acute emboli. No definite evidence of right heart strain. No suspicious adenopathy. Moderate hiatal hernia. No acute findings in the visualized upper abdomen. Superficial soft tissues are intact. Central airways are patent. Subtle diffuse ground-glass opacities in the upper lobes and superior segments of the lower lobes. No focal consolidation, pleural effusion or pneumothorax. No pulmonary mass. No acute osseous abnormality. Degenerative changes of the spine. CT/CTA Chest W/WO Contrast IMPRESSION: 1. Acute bilateral lower lobe pulmonary emboli as above. No definite evidence of right heart strain. 2. Subtle generalized ground-glass opacities in the upper lung zones which may relate to edema/atelectasis versus pneumonitis. No focal consolidations. 3. Moderate hiatal hernia. Above findings discussed with Dr. Loja by phone at 2347 hours on 06/10/2024 Reading Location: [facility]
--- NOTE | 2024-06-10 23:45 | PCM.HP.STD ---
HPI - General General Date of Admission: 06/11/24 Date of Service: 06/10/24 Chief Complaint: Dyspnea, chest pain. HPI Narrative The patient is a 63 y/o F w/ PMHx: Gout, Anxiety and Depression, Hypothyroidism, Rheumatoid arthritis, Fibromyalgia, Chronic migraines, Chronic pain syndrome w/ Hx spinal cord stimulator, CKD stage III unclear subtype per GFR trending, Obesity, HFpEF, GERD who presents to the [facility] ED on 06/10/24 with history of dyspnea worsening over the last 6 weeks seen 4 weeks previously for it with an outpatient echocardiogram that was normal however today she feels worse with chest burning sensation and increased phlegm in her throat and chest with persistent minor cough with no fevers or chills with dyspnea worse with exertion and unchanged lower extremity distal edema with self administration of albuterol inhaler without improvement prompting eventual ED evaluation. Patient reports chest discomfort primarily with deep inspiratory effort. She has been purposely taking more shallow breaths secondary to this. To the ED staff upon presentation she does report congestion and rhinorrhea. Per weight upon current presentation 197 pounds and noted to be on 05/09/2024 also 197 pounds. Patient denies any recent pain to her bilateral lower extremity/calf regions. She denies any severe swelling even transient to her legs. Workup in the ED included T98.4, heart 90, BP 205/91, respiratory rate 20, 84% on room air with improvement to 95% on 2 L nasal cannula, CBC with WBC 11.4, hemoglobin 15.2, platelet 180 without marked shift, D-dimer 3.20, troponin 37, BMP with BUN/creat 21/1.34, GFR 44, glucose 127 chest x-ray with generalized interstitial prominence without focal consolidation, CTPA with acute bilateral lower lobe pulmonary emboli as above, no definite evidence of right heart strain, subtle generalized ground-glass opacities in the upper lung zones which may relate to edema/atelectasis versus pneumonitis, no focal consolidations, moderate hiatal hernia, EKG sinus rhythm with no acute evidence of ischemia. In the ED patient administered Reglan 5 mg IV x 1, DuoNeb therapy, hydralazine 20 mg IV x 1 and Lovenox 90 mg subcu x 1. [facility] Medical History Post-menopausal Depression Anxiety Thyroid disease Anemia Gastric reflux Non-smoker Leg cramps History of pain when walking Hypothyroid CKD (chronic kidney disease) Hypertension Infection of spinal cord stimulator Rheumatoid arthritis Chronic pain Arthritis Fibromyalgia Migraines Home Medications ?Medication ?Instructions ?Recorded ?Last Taken ?Type buprenorphine 20 mcg/hour weekly 1 patch transdermal QWEEK PAIN 01/13/21 05/28/22 History transdermal patch (Butrans) hydrocodone-acetaminophen 5-325mg 1 tab PO Q6H PRN Pain 01/13/21 11/13/22 07:00 History 5mg-325mg levothyroxine 88 mcg tablet 100 mcg PO DAILY 01/13/21 06/01/22 History (Synthroid) omeprazole 40 mg capsule,delayed 40 mg PO DAILY 01/13/21 06/01/22 History release potassium chloride 20 mEq 20 meq PO TID SUPPLEMENT 01/13/21 06/01/22 History tablet,extended release(part/cryst) triamterene 37.5 1 cap PO DAILY Check with primary 01/13/21 06/01/22 History mg-hydrochlorothiazide 25 mg doctor capsule gabapentin 400 mg capsule 400 mg PO TID PAIN 05/08/21 06/01/22 History cholecalciferol (vitamin D3) 125 125 mcg PO DAILY SUPPLEMENT 06/01/22 06/01/22 History mcg (5,000 unit) capsule albuterol sulfate 90 mcg/actuation 2 puff inhalation Q4H PRN 10/22/22 Unknown History aerosol inhaler (ProAir HFA) shortness of breath or wheezing ferrous gluconate 324 mg (37.5 mg 324 mg PO DAILY 10/22/22 Unknown History iron) tablet magnesium 250 mg tablet 400 mg PO DINNER SUPPLEMENT 10/22/22 Unknown History PRIMAL DEFENCE 410 mg PO 1XD 11/12/22 Unknown History metoprolol succinate 50 mg 50 mg PO QHS 11/13/22 Unknown History tablet,extended release 24 hr adalimumab 40 mg/0.8 mL 40 mg subcut .1XWEEK 06/10/24 Unknown History subcutaneous pen kit (Humira Pen) allopurinol 300 mg tablet 300 mg PO DAILY 06/10/24 Unknown History colchicine 0.6 mg tablet 0.6 mg PO DAILY 06/10/24 Unknown History prednisone 5 mg tablet 15 mg PO DAILY 06/10/24 Unknown History Allergy/AdvReac Type Severity Reaction Status Date / Time oxycodone Allergy Rash Verified 06/10/24 21:28 adhesive tape AdvReac Rash Verified 06/10/24 21:28 Family History (Updated 06/11/24 @ 00:[address] Maria Garcia MD) Mother Hypertension Colon polyps Father Lymphoma Surgical History Hx of hysterectomy History of carpal tunnel release Hx of thyroidectomy Hx of cholecystectomy Hx of tonsillectomy Social History household members: none Smoking Status: Never smoker alcohol intake: never substance use type: does not use ROS ROS Narrative Admission Review of Systems: CONSTITUTIONAL: No weight loss, fever, chills, + weakness or fatigue. HEENT: + Congestion, rhinorrhea. Eyes: No visual loss, blurred vision, double vision or yellow sclerae. Ears, Nose, Throat: No hearing loss, sneezing, sore throat. SKIN: No rash or itching, lesions, wounds. CARDIOVASCULAR: + Chest burning sensation, chronic distal edema. No palpitations, orthopnea, syncopal events. RESPIRATORY: + Dyspnea, mild cough with increased phlegm. No wheezing, hemoptysis. GASTROINTESTINAL: No anorexia, nausea, vomiting or diarrhea, abdominal pain, melena, BRBPR. GENITOURINARY: No dysuria, frequency, urgency or retention. NEUROLOGICAL: No headache, dizziness, syncope, paralysis, ataxia, numbness or tingling in the extremities, focal weakness, change in bowel or bladder control, seizure. MUSCULOSKELETAL: + muscle, back pain, joint pain or stiffness. HEMATOLOGIC: + Chronic anemia. No marked easy history of bleeding or bruising. LYMPHATICS: No enlarged nodes. No history of splenectomy. PSYCHIATRIC: + History of anxiety and depression. ENDOCRINOLOGIC: No reports of sweating, cold or heat intolerance. No polyuria or polydipsia. ALLERGIES: No history of asthma, hives, eczema or rhinitis. Vital Signs Vital Signs Vital Signs: 06/10/24 21:26 06/10/24 21:27 06/10/24 21:28 Temperature 98.4 F 98.4 F Temperature Source Oral Oral Pulse Rate 90 90 Respiratory Rate 20 H 20 H Respiratory Effort Respiratory Pattern Blood Pressure 205/91 H 205/91 H Blood Pressure Mean 129 129 Pulse Ox 84 92 95 Oxygen Delivery Method Room Air Nasal Cannula Nasal Cannula Oxygen Flow Rate (L/min) 2 2 06/10/24 21:49 06/10/24 22:08 06/10/24 22:26 Temperature Temperature Source Pulse Rate 92 99 Respiratory Rate 20 H 22 H Respiratory Effort Respiratory Pattern Tachypnea Blood Pressure 185/83 H Blood Pressure Mean 117 Pulse Ox 95 92 Oxygen Delivery Method Nasal Cannula Nasal Cannula Oxygen Flow Rate (L/min) 2 2 06/10/24 22:27 06/10/24 22:48 06/10/24 23:00 Temperature 98.2 F 98 F Temperature Source Oral Oral Pulse Rate 98 95 Respiratory Rate 18 27 H Respiratory Effort Short of Breath Labored Respiratory Pattern Tachypnea Blood Pressure 187/79 H 185/76 H Blood Pressure Mean 115 112 Pulse Ox 99 95 Oxygen Delivery Method Nasal Cannula Nasal Cannula Nasal Cannula Oxygen Flow Rate (L/min) 2 2 2 06/10/24 23:00 Temperature Temperature Source Pulse Rate 95 Respiratory Rate 24 H Respiratory Effort Respiratory Pattern Blood Pressure 185/76 H Blood Pressure Mean 112 Pulse Ox 98 Oxygen Delivery Method Oxygen Flow Rate (L/min) Weight Weight: 197 lb Body Mass Index (BMI) 34.9 Physical Exam Narrative Physical Examination: General: Awake, alert, oriented x 3 and cooperative, seated upright in ED bed, fatigued, shivering, mildly uncomfortable appearing. Skin: Normal color, normal turgor, no icterus, no cyanosis. HEENT: AT/NC, EOMI, PERRLA, moderately dry MM, no carotid bruits or JVD noted. Lungs: Diminished, greater bases, mildly increased respiratory rate but no distress, very shallow breaths secondary to pain elicited with deep inspiratory effort per discussion with patient, no appreciated rales, ronchi or wheezing. Heart: Mildly tachycardic with regular rhythm; no gallop, rub audible. Abdomen: Soft, obese, NTTP, ND, mildly hyperactive BS, no appreciated HSM. Extremities: No cyanosis, no clubbing, no marked distal edema noted, no pain with palpation bilateral calf regions. Neurological: Patient awake, alert, oriented as noted, cognitive function intact; pupils equally reactive to light and accommodation, cranial nerves gross normal, moving all 4 extremities, no focal deficits, strength severely globally decreased secondary to acute presentation. Psychiatric: Affect appears fatigued, shivering, no acute evidence of depressive or anxiety feelings. Results Lab / Micro Data 06/10/24 22:21 06/10/24 22:21 Labs: Laboratory Results - last 24 hr 06/10/24 22:21: WBC 11.4 H, RBC 5.01, Hgb 15.2 H, Hct 45.7, MCV 91.2, MCH 30.3, MCHC 33.3, RDW Std Deviation 46.0 H, RDW Coeff of Hiro 13.8, Plt Count 180, MPV 10.1, Immature Gran % (Auto) 0.700, Neut % (Auto) 67.6, Lymph % (Auto) 16.3 L, Mchenry % (Auto) 10.3 H, Eos % (Auto) 4.4, Baso % (Auto) 0.7, Absolute Neuts (auto) 7.7, Absolute Lymphs (auto) 1.86, Nucleated RBC % 0, Sodium 141, Potassium 3.3, Chloride 102, Carbon Dioxide 25.2, Anion Gap 14, BUN 21 H, Creatinine 1.34 H, Estim Creat Clear Calc 44.39 L, Est GFR (MDRD) Non-Af 44 L, BUN/Creatinine Ratio 15.4, Glucose 127 H, Calcium 9.7, Troponin T High Sens 37 H D 06/10/24 22:29: D-Dimer Quant (PE/DVT) 3.20 H* Rhythm Strip Rhythm Strip: Sinus Rhythm Rate: 95 Ectopy: None Imaging Radiology Impression Chest X-Ray 06/10/24 22:36 IMPRESSION: Generalized interstitial prominence without focal consolidation. Reading Location: [facility] Assessment & Plan Assessment/Plan (1) Hypoxemia: (2) Pulmonary embolism: (3) Accelerated hypertension: PLAN: Plan The patient is a 63 y/o F w/ PMHx: Gout, Anxiety and Depression, Hypothyroidism, Rheumatoid arthritis, Fibromyalgia, Chronic migraines, Chronic pain syndrome w/ Hx spinal cord stimulator, CKD stage III unclear subtype per GFR trending, Obesity, HFpEF, GERD who presents to the [facility] ED on 06/10/24 with history of dyspnea worsening over the last 6 weeks seen 4 weeks previously for it with an outpatient echocardiogram that was normal however today she feels worse with chest burning sensation and increased phlegm in her throat and chest with persistent minor cough with no fevers or chills with dyspnea worse with exertion and unchanged lower extremity distal edema with self administration of albuterol inhaler without improvement prompting eventual ED evaluation. #1. Acute hypoxia secondary to Pulmonary Embolism: EKG without acute findings, CXR no acute process, D-dimer elevated, CTPA with acute bilateral lower lobe pulmonary emboli as above, no definite evidence of right heart strain, subtle generalized ground-glass opacities in the upper lung zones which may relate to edema/atelectasis versus pneumonitis, no focal consolidations, moderate hiatal hernia, troponin mildly elevated 37. No family history of hypercoaguable state. Patient notes no recent travel. No recent surgeries. Will admit to PCU, maintain on cardiac telemetry. ECHO performed 06/08/2024 with symptoms similar to current thus will not immediately repeat as no obvious strain on imaging. Will cycle cardiac enzymes, obtain BNP. Will continue therapeutic Lovenox regimen with pending AM insurance oral regimen investigation. COVID PCR and full respiratory panel requested. #2. Accelerated hypertension, suspected likely secondary #1: Continue home regimen including metoprolol, triamterene-hydrochlorothiazide, administered hydralazine 20 mg IV x 1 in the ED, if not improving with intervention #1 and add additional oral regimen, in the interim PRN hydralazine. #3. Indeterminate cardiac enzyme, likely associated with #1, #2, demand: Admission troponin 37, EKG with sinus rhythm with no acute evidence of ischemia, will maintain on telemetry, continue to cycle cardiac enzymes, echocardiogram recently performed 06/08/2024 as noted secondary to her recent symptoms, magnesium level requested. Continue aspirin. #4. HFpEF: Noted in prior chart history, most recent echocardiogram 06/08/2024 with normal LV size, LV systolic function normal, LVEF 60%, trivial pericardial effusion, structurally normal valves, continue on baby aspirin, metoprolol, triamterene-hydrochlorothiazide, not on GURPREET/ARB nor statin therapy. #5. Chronic Kidney Disease Stage III, unclear subtype or GFR trending: Admission BUN/Cr 21/1.34, GFR 44, baseline renal function primarily 0.9-1.4, has vacillated, repeat BMP in AM. #6. Rheumatoid arthritis: Complicated by chronic pain syndrome concurrently, per records on [facility] outpatient, previously had been on hydroxychloroquine but is no longer listed. Currently she has prednisone low-dose listed, will cautiously continue given anticoagulation as noted. Encourage continued outpatient follow-up with rheumatology as previously arranged. #7. Chronic pain syndrome chronic lumbar back pain/: History spinal cord stimulator unfortunately with previous infection, following with pain management, will continue Butrans patch, gabapentin, [place] as needed regimen. Encourage follow-up with pain management as previously arranged. #8. Chronic iron deficiency anemia: Admission hemoglobin 15 point, MCV 91.2, baseline hemoglobin appears more recently 14 but in the past has vacillated 10-12 but labs are remote, continue iron supplementation and CBC trending. #9. Hypothyroidism: Will continue patient on levothyroxine regimen. #10. Anxiety and depression: Noted in chart history, per current list on a chronic regimen but clarified to be certain, encouraged continued outpatient follow-up as previously arranged. #11. Obesity: Weight loss and lifestyle changes encouraged. #12. GERD: Continue patient on PPI. #13. Gout: Will continue patient home allopurinol and colchicine regimen. #14. DVT prophylaxis: Will continue 80 initiated therapeutic Lovenox. #14. CODE status: Patient KEITH is her daughter who is present and living will is currently in place. Discussed CODE status at length including difference between FULL code, DNR-CCA and DNR-CC status. Following discussions about the differences in these status, requested Full Code status. Charges/Coding Visit Charges Inpatient E&M: 20267 Init Hosp L3
[2024-06-10] MEDS: Enoxaparin 100 MG/ML Syringe 90 MG SC (23:59)
[2024-06-10] MEDS: Metoclopramide 10 MG/2 ML Vial 5 MG IV (23:59)
[2024-06-11] VITALS (17 sets, daily range): BP systolic 111–189; BP diastolic 63–88; PULSE 72–100; RESP 18–30; TEMP 36.5–37.7; O2SAT 87–97; BMI 35.1
[2024-06-11 01:03] LABS: Troponin T High Sens 2 HR 46 ng/L (<=14)
[2024-06-11 02:20] LABS: Magnesium 1.7 mg/dL (1.5-2.2); Pro- Brain NATRIURETIC PEPTIDE 436 pg/mL (<=900)
[2024-06-11] MEDS: Ondansetron 4 MG/2 ML Vial IV (02:35)
[2024-06-11] MEDS: Acetaminophen 325 MG Tablet 650 MG PO ×3 (02:36→14:35)
[2024-06-11 03:15] LABS: Absolute Lymphocyte Count 1.62 X10^3/uL (0.83-4.51); Absolute Neutrophil Count 10.9 X10^3/uL (2.0-7.7); Basophil# 0.12 X10^3/uL; Basophil% 0.8 % (0-1); Eosinophil# 0.74 X10^3/uL; Eosinophils% 4.9 % (0-5); Hematocrit 43.2 % (37-47); Hemoglobin 14.5 g/dL (12.0-15.0); Lymphocyte # 1.62 X10^3/ul (0.83-4.51); Lymphocyte % 10.8 % (19-41); Mean Corp Hgb Conc 33.6 g/dL (32-36); Mean Corpuscular Hgb 30.5 pg (27.0-32.0); Mean Corpuscular Volume 90.8 fL (81-99); Mean Platelet Vol. 10.2 fl (6.2-12.0); Monocyte# 1.51 X10^3/uL; Monocyte% 10.1 % (0-10); NRBC Flagged by Analyzer 0 % (0-5); Neutrophil # 10.85 X10^3/uL (2.7-7.7); Neutrophil % 72.6 % (47-70); POSITIVE DIFFERENTIAL YES; Platelet Count 168 K/mm3 (150-450); RBC Distribution Width CV 13.8 % (11.6-14.6); RBC Distribution Width SD 45.7 fl (35.1-43.9); Red Blood Count 4.76 M/mm3 (4.2-5.4)
[2024-06-11 03:28] LABS: Differential Indicated SCAN CRITERIA MET
[2024-06-11 03:54] LABS: Troponin T High Sens 4 HR 81 ng/L (<=14)
[2024-06-11 04:45] LABS: Differential Comment SCANNED; Pathologist Review May foll
[2024-06-11 05:05] LABS: ALB/GLOB Ratio 1.6 RATIO (0.9-2.4); AST(SGOT) 34 U/L (<=31); Alanine Aminotransfer ALT/SGPT 43 U/L (<=34); Albumin, Serum 3.7 g/dL (3.4-4.8); Alkaline Phosphatase 79 U/L (35-104); Anion Gap 14 (5-15); BUN 21 mg/dL (4-19); BUN/Creat Ratio 16.9 RATIO (10-20); Calcium,Total 9.4 mg/dL (7.6-11.0); Carbon Dioxide 24.4 mmol/L (21.0-32.0); Chloride 100 mmol/L (98-108); Creatinine, Serum 1.23 mg/dL (0.70-1.20); EST Glomerular Filtration Rate 49 (>60); Estimated Creatinine Clearance 48.55 ml/min (50-250); Globulin 2.4 g/dL (2.2-4.2); Glucose 145 mg/dL (70-99); Sodium Level 138 mmol/L (133-145); Total Bilirubin 0.62 mg/dL (0.00-1.30)
[2024-06-11] MEDS: Levothyroxine 100 MCG Tablet PO (05:14)
[2024-06-11] MEDS: Gabapentin 400 MG Capsule PO ×3 (05:14→22:22)
[2024-06-11] MEDS: Potassium Chloride Oral Tablet 20 MEQ PO (05:14)
[2024-06-11] MEDS: Buprenorphine 20 mcg Patch (WEEKLY) 1 PATCH TD (06:58)
[2024-06-11] MEDS: predniSONE 5 MG Tablet 15 MG PO (09:13)
[2024-06-11] MEDS: Colchicine 0.6 MG TABLET PO (09:13)
[2024-06-11] MEDS: Allopurinol 300 MG Tablet PO ×2 (09:13→09:14)
[2024-06-11] MEDS: Potassium Chloride Oral Tablet 20 MEQ 60 MEQ PO (09:14)
[2024-06-11] MEDS: Triamterene 37.5MG/Hctz 25MG Capsule 1 CAP PO (09:14)
[2024-06-11] MEDS: Pantoprazole Sodium 40 MG Tablet PO (09:14)
[2024-06-11] MEDS: 0.9% Saline Lock 10 ML Syringe IV (09:38)
[2024-06-11] MEDS: Magnesium Sulfate 2 GM in Dextrose 5%-Water (100mL Bag) 100 ML IV (09:38)
[2024-06-11] MEDS: APIXABAN 5 MG TABLET 10 MG PO ×2 (09:40→22:22)
[2024-06-11 09:53] LABS: Phosphorus 2.6 mg/dL (2.7-4.5)
--- NOTE | 2024-06-11 10:20 | CASEMGMT ---
LAURA DENSON Face to Face with patient for initial transition planning/care coordination assessment. RN JARETT introduced self and role at [facility]. Patient lying in bed, alert and oriented. Patient willing to participate in assessment and is able to answer all questions appropriately. Care providers, pharmacy, and demographics verified. Strata: 3 PCP: [facility] Specialists: Wilfredo, Pain; [facility] Conveyor Worker Preferred Pharmacy: [facility] Insurance: [facility] Dual, [employer] Prescription Benefit: yes Living Will/HPOA: yes, daughter Marry Cool LNOK: daughter, grandson Living Arrangements: Patient lives with Grandson in a 2 story home with bed and bath on first floor. Patient is independent at home. Transportation: self, grandson DME/HHC: Patient states she has shower chair, walker, pulse ox at home. No previous HHC or SNF. Will monitor for home oxygen, prefers [employer]. Green sheet placed on charge Patient wishes to discharge home, denies need for home health at this time. Patient states he has no further needs or concerns at this time. CM to follow for discharge planning needs that may arise. Disposition Plan: Patient to discharge home with family support and follow-up plans in place. Will monitor for home oxygen at discharge. Jenifer GOFF, RN, CM
--- NOTE | 2024-06-11 11:28 | PN.HOSP_ITS ---
Reason for Visit Reason for Visit: Diagnoses Essential (primary) hypertension (06/10/24) Other pulmonary embolism without acute cor pulmonale (06/10/24) Hypoxemia (06/10/24) Subjective Subjective Saw patient at bedside this morning. Patient was sitting back comfortably in bed, conversing normally, in no acute distress. She is breathing comfortably on 3 L nasal cannula at rest. Noted that she did feel moderately improved from yesterday from a breathing standpoint. Denies any shortness of breath at rest, has not been out of bed yet this morning to see if she has any shortness of breath with exertion. No other new concerns today. Objective Data Objective Data Vital Signs: Vital Signs Temp Pulse Resp BP Pulse Ox O2 Del Method O2 Flow Rate 98.1 F 88 20 H 113/70 94 Nasal Cannula 5 06/11/24 09:10 06/11/24 09:10 06/11/24 09:10 06/11/24 09:10 06/11/24 09:10 06/11/24 09:10 06/11/24 09:10 FiO2 95 06/11/24 08:46 Oxygen Flow Rate (L/min) 5 Oxygen Delivery Method Nasal Cannula Weight: 90 kg Body Mass Index (BMI) 35.1 Intake & Output: Intake and Output for Last 24 Hours 06/09/24 06/10/24 06/11/24 23:59 23:59 23:59 Intake Total 200 / 200 Balance 200 / 200 Lab / Micro Data 06/11/24 02:53 06/11/24 02:53 Labs: Laboratory Results - last 24 hr 06/10/24 22:21: WBC 11.4 H, RBC 5.01, Hgb 15.2 H, Hct 45.7, MCV 91.2, MCH 30.3, MCHC 33.3, RDW Std Deviation 46.0 H, RDW Coeff of Hiro 13.8, Plt Count 180, MPV 10.1, Immature Gran % (Auto) 0.700, Neut % (Auto) 67.6, Lymph % (Auto) 16.3 L, M sherif % (Auto) 10.3 H, Eos % (Auto) 4.4, Baso % (Auto) 0.7, Absolute Neuts (auto) 7.7, Absolute Lymphs (auto) 1.86, Nucleated RBC % 0, Sodium 141, Potassium 3.3, Chloride 102, Carbon Dioxide 25.2, Anion Gap 14, BUN 21 H, Creatinine 1.34 H, E stim Creat Clear Calc 44.39 L, Est GFR (MDRD) Non-Af 44 L, BUN/Creatinine Ratio 15.4, Glucose 127 H, Calcium 9.7, Magnesium 1.7, Troponin T High Sens 37 H D, NT pro BNP II 436 06/10/24 22:29: D-Dimer Quant (PE/DVT) 3.20 H* 06/11/24 00:38: Troponin T Hi Sens 2 Hr 46 H 06/11/24 01:27: Phosphorus 2.6 L 06/11/24 02:53: WBC 15.0 H, RBC 4.76, Hgb 14.5, Hct 43.2, MCV 90.8, MCH 30.5, MCHC 33.6, RDW Std Deviation 45.7 H, RDW Coeff of Hiro 13.8, Plt Count 168, MPV 10.2, Immature Gran % (Auto) 0.800, Neut % (Auto) 72.6 H, Lymph % (Auto) 10.8 L, Collin % (Auto) 10.1 H, Eos % (Auto) 4.9, Baso % (Auto) 0.8, Absolute Neuts (auto) 10.9 H, Absolute Lymphs (auto) 1.62, Nucleated RBC % 0, Differential Comment SCANNED, Diff Path Review July, Sodium 138, Potassium 3.0 L, Chloride 100, Carbon Dioxide 24.4, Anion Gap 14, BUN 21 H, Creatinine 1.23 H, Estim Creat Clear Calc 48.55 L, Est GFR (MDRD) Non-Af 49 L, BUN/Creatinine Ratio 16.9, G lucose 145 H, Calcium 9.4, Total Bilirubin 0.62, AST 34 H, ALT 43 H, Alkaline Phosphatase 79, Troponin T Hi Sens 4Hr 81 H*, Total Protein 6.0, Albumin 3.7, Globulin 2.4, Albumin/Globulin Ratio 1.6 Micro: Microbiology 06/11/24 05:15 Mucosa - Nose Respiratory Panel (PCR) - Final 06/11/24 05:15 Mucosa - Nose Coronavirus COVID-19 PCR - Final Radiography Diagnostic Testing: Radiology Impression Chest X-Ray 06/10/24 22:36 IMPRESSION: Generalized interstitial prominence without focal consolidation. [facility] Chest CTA 06/10/24 23:02 IMPRESSION: 1. Acute bilateral lower lobe pulmonary emboli as above. No definite evidence of right heart strain. 2. Subtle generalized ground-glass opacities in the upper lung zones which may relate to edema/atelectasis versus pneumonitis. No focal consolidations. 3. Moderate hiatal hernia. Above findings discussed with Dr. Loja by phone at 2347 hours on 06/10/2024 [facility] Rhythm Strip Rhythm Strip: Sinus Rhythm Rate: 95 Ectopy: None Physical Exam Const alert, oriented x3 and no apparent distress Constitutional Narrative: Upper middle-aged female, class II obesity, mildly fatigued appearing but otherwise sitting back comfortably in bed, conversing normally, in no acute distress. General Appearance: cooperative and comfortable HEENT normocephalic, head/scalp atraumatic, hearing grossly normal bilaterally, nasal mucous membranes and turbinates normal and moist oral mucous membranes Eyes PERRL, EOMs intact bilaterally and conjunctivae normal Neck full ROM Chest inspection of chest normal Resp normal respiratory effort and no use of accessory muscles Resp Narrative: Breathing comfortably on 3 L nasal cannula at rest. Mild crackles noted in upper airways bilaterally but otherwise good breath sounds and no wheezing noted. Cardio regular rate, regular rhythm, no murmurs and peripheral pulses 2+ throughout GI normal to inspection, nondistended, normoactive bowel sounds, soft to palpation, non-tender and non-distended Back/Spine normal ROM Extremity normal to inspection, full ROM and no pedal edema Skin no rashes or lesions noted Psych mental status grossly normal Assessment & Plan Assessment/Plan (1) Hypoxemia: (2) Pulmonary embolism: PLAN: Plan Patient is a 63-year-old female who presented to [facility] ED on 06/10/2024 with worsening shortness of breath. 1. Acute hypoxia secondary to bilateral PE, low risk ? Not on home oxygen. Required up to 5 L nasal cannula and admit to maintain appropriate oxygen saturations. CTA chest showed acute bilateral lower lobe pulmonary emboli with no right heart strain; also showed subtle generalized groundglass opacities in the upper lung zones concerning for possible edema versus pneumonitis with no focal consolidations. Echo on 06/08 showed EF 60%, no evidence of right heart strain or pulmonary hypertension. Started on therapeutic Lovenox twice daily on admit, transitioned to Eliquis with loading dose on 06/11. Weaning supplemental oxygen as able. Hopeful for discharge home in the next 1 to 2 days. 2. Concern for accelerated hypertension ? Presented with elevated blood pressures to the low 200s systolic on admit. Suspect secondary to acute PE as above. Much improved with 1 dose of IV hydralazine and restarting home regimen. Continue home Toprol and triamterene?hydrochlorothiazide. 3. Elevated troponins ? Troponin trend 37 > 46 > 81. No EKG changes noted. No chest pain noted. Recent echo as noted above. Presumed demand ischemia secondary to acute PE as noted above. No further cardiac workup needed. 4. CKD stage IIIa ? Creatinine stable at baseline 1.2-1.3. Chronic medical conditions: ? Class II obesity: BMI 35 on admit. Complicates hospital course, care and prognosis. Encouraged weight loss. ? Rheumatoid arthritis: Complicated by chronic pain syndrome currently, unclear on how active RA is. Was previously on hydroxychloroquine but no longer is for unclear reason. Unclear if mild groundglass opacities on CT on admit may be related to her RA. Continue treatment with low-dose prednisone while inpatient. ? Chronic back pain: Continue home buprenorphine patch, Percocet as needed and gabapentin. ? Hypothyroidism: Continue home Synthroid. ? GERD: Continue home PPI. ? History of gout: Continue home colchicine and allopurinol. DVT prophylaxis: Not indicated, on Eliquis CODE STATUS: Full code, verified Expected disposition: Home, 1 to 2 days Total clinical time spent by myself addressing the patient's medical issues, reviewing all the data, and collaborating with patient's care team: 35 minutes. Charges/Coding Visit Charges Inpatient E&M: 92917 Subs Hosp L2
[2024-06-11] MEDS: Ferrous Gluconate 324 MG Tablet PO (11:52)
[2024-06-11] MEDS: Ibuprofen 200 MG Tablet PO (17:16)
[2024-06-11] MEDS: Metoprolol(XL)Succ 50 MG Tablet PO (22:22)
[2024-06-11] MEDS: HYDROcodone Bitartrate/Apap 5/325 Tablet PO (22:27)
[2024-06-12 03:00] VITALS: BP 114/68; PULSE 58; RESP 18; TEMP 36.7; O2SAT 96
[2024-06-12 04:38] VITALS: BMI 35.3
[2024-06-12 05:16] LABS: Hematocrit 42.8 % (37-47); Hemoglobin 14.4 g/dL (12.0-15.0); Mean Corp Hgb Conc 33.6 g/dL (32-36); Mean Corpuscular Hgb 30.8 pg (27.0-32.0); Mean Corpuscular Volume 91.6 fL (81-99); Mean Platelet Vol. 10.2 fl (6.2-12.0); Platelet Count 161 K/mm3 (150-450); RBC Distribution Width SD 47.3 fl (35.1-43.9); Red Blood Count 4.67 M/mm3 (4.2-5.4)
[2024-06-12 05:44] LABS: Anion Gap 11 (5-15); BUN 26 mg/dL (4-19); BUN/Creat Ratio 22.1 RATIO (10-20); Calcium,Total 9.3 mg/dL (7.6-11.0); Carbon Dioxide 26.2 mmol/L (21.0-32.0); Chloride 100 mmol/L (98-108); Creatinine, Serum 1.16 mg/dL (0.70-1.20); EST Glomerular Filtration Rate 52 (>60); Estimated Creatinine Clearance 51.63 ml/min (50-250); Glucose 102 mg/dL (70-99); Sodium Level 137 mmol/L (133-145)
[2024-06-12] MEDS: HYDROcodone Bitartrate/Apap 5/325 Tablet PO (05:57)
[2024-06-12] MEDS: 0.9% Saline Lock 10 ML Syringe IV (05:57)
[2024-06-12] MEDS: Gabapentin 400 MG Capsule PO (05:57)
[2024-06-12] MEDS: Levothyroxine 100 MCG Tablet PO (05:57)
[2024-06-12 07:05] LABS: Bedside Glucose 93 mg/dL (74-106)
[2024-06-12 07:23] VITALS: O2SAT 96
[2024-06-12 09:21] VITALS: BP 134/72; PULSE 67; RESP 16; TEMP 36.5; O2SAT 96
[2024-06-12] MEDS: predniSONE 5 MG Tablet 15 MG PO (09:23)
[2024-06-12] MEDS: Colchicine 0.6 MG TABLET PO (09:24)
[2024-06-12] MEDS: APIXABAN 5 MG TABLET 10 MG PO (09:25)
[2024-06-12] MEDS: Pantoprazole Sodium 40 MG Tablet PO (09:25)
[2024-06-12 09:39] VITALS: O2SAT 88; O2SAT 93; O2SAT 95
--- NOTE | 2024-06-12 09:46 | DS.PCM_ITS ---
Providers Date of Admission: 06/10/24 Date of Discharge: 06/12/24 Primary Care Physician: Dr. Pk Donahue DO Reason For Visit: HYPOXIA PE ACCEL HTN Diagnosis Discharge Diagnosis (1) Hypoxemia: Status: Acute Code(s): R09.02 - Hypoxemia (2) Pulmonary embolism: Status: Acute Code(s): I26.99 - Other pulmonary embolism without acute cor pulmonale Medications at Discharge Home Medications buprenorphine 20 mcg/hour weekly transdermal patch (Butrans) 1 patch transdermal QWEEK PAIN 01/13/21 hydrocodone-acetaminophen 5-325mg 5mg-325mg 1 tab PO Q6H PRN Pain 01/13/21 levothyroxine 88 mcg tablet (Synthroid) 100 mcg PO DAILY 01/13/21 omeprazole 40 mg capsule,delayed release 40 mg PO DAILY 01/13/21 potassium chloride 20 mEq tablet,extended release(part/cryst) 20 meq PO TID SUPPLEMENT 01/13/21 triamterene 37.5 mg-hydrochlorothiazide 25 mg capsule 1 cap PO DAILY Check with primary doctor 01/13/21 gabapentin 400 mg capsule 400 mg PO TID PAIN 05/08/21 cholecalciferol (vitamin D3) 125 mcg (5,000 unit) capsule 125 mcg PO DAILY SUPPLEMENT 06/01/22 albuterol sulfate 90 mcg/actuation aerosol inhaler (ProAir HFA) 2 puff inhalation Q4H PRN shortness of breath or wheezing 10/22/22 ferrous gluconate 324 mg (37.5 mg iron) tablet 324 mg PO DAILY 10/22/22 magnesium 250 mg tablet 400 mg PO DINNER SUPPLEMENT 10/22/22 PRIMAL DEFENCE 410 mg PO 1XD probiotic 11/12/22 metoprolol succinate 50 mg tablet,extended release 24 hr 50 mg PO QHS 11/13/22 adalimumab 40 mg/0.8 mL subcutaneous pen kit (Humira Pen) 40 mg subcut .1XWEEK 06/10/24 allopurinol 300 mg tablet 300 mg PO DAILY 06/10/24 colchicine 0.6 mg tablet 0.6 mg PO DAILY 06/10/24 prednisone 5 mg tablet 15 mg PO DAILY 06/10/24 apixaban 5 mg (74 tabs) tablets in a dose pack (Eliquis DVT-PE Treat 30D Start) See Rx Instructions PO .COMPLEX #74 tabs 06/12/24 Hospital Course Operations None Procedures - (CTA chest, chest x-ray) Summary of Care Provided Minutes Spent on Discharge: 35 Hospital Course: Patient is a 63-year-old female who presented to [facility] ED on 06/10/2024 with worsening shortness of breath. Hospital course as noted below. Patient discharged home in stable condition on 06/12. 1. Acute hypoxia secondary to bilateral PE, low risk, improving ? Not on home oxygen. Required up to 5 L nasal cannula on admit to maintain appropriate oxygen saturations. CTA chest showed acute bilateral lower lobe pulmonary emboli with no right heart strain. Echo on 06/08 showed EF 60%, no evidence of right heart strain or pulmonary hypertension. Started on therapeutic Lovenox twice daily on admit, transitioned to Eliquis with loading dose on 06/11. Had good improvement during hospitalization. However, completed home oxygen testing on day of discharge and did require 2 L nasal cannula with exertion. Oxygen prescription sent. Noted to patient that I am hopeful she will be able to wean off of supplemental oxygen with exertion in the next week or so. Recommended close outpatient follow-up with PCP on discharge. 2. History of hypertension with concern for accelerated hypertension ? Presented with elevated blood pressures to the low 200s systolic on admit. Suspect secondary to acute PE as above. Much improved with 1 dose of IV hydralazine and restarting home regimen. Remained stable on home regimen during hospitalization. Continue home Toprol and triamterene?hydrochlorothiazide on discharge. 3. Elevated troponins ? Troponin trend 37 > 46 > 81. No EKG changes noted. No chest pain noted. Recent echo as noted above. Presumed demand ischemia secondary to acute PE as noted above. No further cardiac workup needed. 4. CKD stage IIIa ? Creatinine stable at baseline 1.2-1.3. Chronic medical conditions: ? Class II obesity: BMI 35 on admit. Complicated hospital course, care and prognosis. Encouraged weight loss. ? Rheumatoid arthritis: Complicated by chronic pain syndrome currently, unclear on how active RA is. Was previously on hydroxychloroquine but no longer is for unclear reason. Continue treatment with low-dose prednisone. Okay to resume home Humira on discharge. ? Chronic back pain: Continue home buprenorphine patch, Percocet as needed and gabapentin. ? Hypothyroidism: Continue home Synthroid. ? GERD: Continue home PPI. ? History of gout: Continue home colchicine and allopurinol. Total clinical time spent by myself addressing the patient's medical issues, reviewing all the data, and collaborating with patient's care team: 35 minutes. Physical Exam Const alert, oriented x3 and no apparent distress Constitutional Narrative: Upper middle-aged female, class II obesity, energy improved from admission, sitting back comfortably in bed, conversing normally, in no acute distress. General Appearance: cooperative and comfortable HEENT normocephalic, head/scalp atraumatic, hearing grossly normal bilaterally, nasal mucous membranes and turbinates normal and moist oral mucous membranes Eyes PERRL, EOMs intact bilaterally and conjunctivae normal Neck full ROM Chest inspection of chest normal Resp normal respiratory effort and no use of accessory muscles Resp Narrative: Breathing comfortably on 2 L nasal cannula at rest. Good breath sounds bilaterally throughout with no wheezing or crackles noted, improved from admission. Cardio regular rate, regular rhythm, no murmurs and peripheral pulses 2+ throughout GI normal to inspection, nondistended, normoactive bowel sounds, soft to palpation, non-tender and non-distended Back/Spine normal ROM Extremity normal to inspection, full ROM and no pedal edema Skin no rashes or lesions noted Psych mental status grossly normal Weight / BMI Weight Weight: 90.5 kg Body Mass Index (BMI) 35.3 ABG / Lab / Microbiology Data 06/12/24 04:56 06/12/24 04:56 Laboratory: Laboratory Results - last 24 hr 06/11/24 01:27: Phosphorus 2.6 L 06/12/24 04:56: WBC 9.0, RBC 4.67, Hgb 14.4, Hct 42.8, MCV 91.6, MCH 30.8, MCHC 33.6, RDW Std Deviation 47.3 H, RDW Coeff of Hiro 14.0, Plt Count 161, MPV 10.2, Sodium 137, Potassium 4.0, Chloride 100, Carbon Dioxide 26.2, Anion Gap 11, BUN 26 H, Creatinine 1.16, Estim Creat Clear Calc 51.63, Est GFR (MDRD) Non-Af 52 L, BUN/Creatinine Ratio 22.1 H, Glucose 102 H, Calcium 9.3 06/12/24 05:51: POC Glucose 93 Microbiology: Microbiology 06/11/24 05:15 Mucosa - Nose Respiratory Panel (PCR) - Final 06/11/24 05:15 Mucosa - Nose Coronavirus COVID-19 PCR - Final D/C Instructions DC O2, CPAP, BIPAP Needs Home O2 Discharge instructions: Yes Type of respiratory needs?: Oxygen Oxygen frequency: With Ambulation Oxygen liters per minute during Ambulation: 2 DC home with Oxygen: Yes Home O2 MD Review: I have reviewed the oxygen testing, and the patient qualifies for home oxygen equipment and portability. The patient is mobile in the home and the community. Meaningful Use Info Meaningful Use Meaningful Use Diagnoses (Choose all that apply): VTE Ischemic Stroke Statin Dosing Therapy Reference: STATIN DOSE THERAPY REFERENCE: * Patients > 75 years receive moderate or high dose statin therapy. * Patients 75 years or YOUNGER should receive HIGH intensity statin dose unless contraindicated. You will be required to document reason for non-treatment if statin daily dose does not meet guidelines. HIGH DOSE STATIN THERAPY DAILY Atorvastatin > than or = to 40 mg Rosuvastatin > than or = to 20 mg Amlodipine + Atorvastatin > than or = to 2.5/40 mg Ezetimibe + Simvastatin 10/80 mg Simvastatin 80mg VTE Anticoag overlap given w/in hospital stay or rx'd at dc?: Yes Pt receive overlap for 5 days?: No Reason overlap not ordered, prescribed, or given for 5 days: Treatment Not Indicated Discharge Plan Admission Admit Date/Time: 06/10/24 23:48 Primary Reason for Your Visit: Shortness of breath Attending Provider: Tyrone Clark Primary Care Provider: Pk Donahue Consulting Providers: Maria Garcia Instructions Additional Instructions / Restrictions: Please take Eliquis for your pulmonary embolism (blood clot in the lungs) as instructed by package. Continue your other home indications as normal. Follow- up with your primary care doctor as needed. Discharge Orders/Prescriptions Prescriptions: New Eliquis DVT-PE Treat 30D Start 5 mg (74 tabs) tablets,dose pack See Rx Instructions .ROUTE .COMPLEX Qty: 74 0RF Rx Instructions: orally per package directions Continued gabapentin 400 mg capsule 400 mg PO TID Patient Comments: take 1 capsule by mouth three times a day albuterol sulfate [ProAir HFA] 90 mcg/actuation HFA aerosol inhaler 2 puff inhalation Q4H PRN (Reason: shortness of breath or wheezing) ferrous gluconate 324 mg (37.5 mg iron) tablet 324 mg PO DAILY hydrocodone-acetaminophen 5-325 mg Tablet 1 tab PO Q6H PRN (Reason: Pain) omeprazole 40 mg Capsule,Delayed Release(Dr/Ec) 40 mg PO DAILY triamterene-hydrochlorothiazid 37.5-25 mg Capsule 1 cap PO DAILY levothyroxine [Synthroid] 88 mcg Tablet 100 mcg PO DAILY potassium chloride 20 mEq tablet,ER particles/crystals 20 meq PO TID Patient Comments: take 3 capsules by mouth once daily buprenorphine [Butrans] 20 mcg/hour Patch Weekly 1 patch TRANSDERMAL QWEEK Rx Instructions: on wednesdays cholecalciferol (vitamin D3) 125 mcg (5,000 unit) Capsule 125 mcg PO DAILY magnesium 250 mg tablet 400 mg PO DINNER PRIMAL DEFENCE 410 mg PO 1XD Rx Instructions: DIETARY SUPPLEMENT metoprolol succinate 50 mg Tablet Extended Release 24 Hr 50 mg PO QHS allopurinol 300 mg tablet 300 mg PO DAILY colchicine 0.6 mg tablet 0.6 mg PO DAILY Humira Pen 40 mg/0.8 mL pen injector kit 40 mg subcut .1XWEEK Rx Instructions: inject 40MG SUBQ ONE TIME A WEEK prednisone 5 mg tablet 15 mg PO DAILY Referrals / Follow Up: Pk Donahue DO [Primary Care Provider] - Disposition Disposition (needs filled in before D/C Order can be placed): Home, Self Care Charges/Coding Visit Charges Inpatient E&M: 72544 Disch Hosp >30min
[2024-06-12 09:49] VITALS: BP 151/81; PULSE 72; RESP 16; TEMP 36.8; O2SAT 94
--- NOTE | 2024-06-12 09:49 | PCM.HOSP.N ---
Hospitalist Note I have reviewed the oxygen testing, and this patient qualifies for the home equipment and portability. The patient is mobile in the home and the community.
[2024-06-12 12:01] VITALS: BP 151/81; PULSE 72; RESP 16; TEMP 36.8; O2SAT 94
== END 2024-06-12 13:14 | disposition home or self-care (01) | DRG 176 ==
LOC: ED 23:52 → PCU 06-11 00:23
PROVIDERS: Admitting Provider Family Medicine; Emergency Provider Emergency Medicine; PCP Family Medicine; Visit Provider Hospitalist
DX: I26.99 Other pulmonary embolism without acute cor pulmonale (principal); I24.89 Other forms of acute ischemic heart disease; I13.0 Hypertensive heart and chronic kidney disease with heart failure and stage 1 through stage 4 chronic kidney disease, or unspecified chronic kidney disease; I50.30 Unspecified diastolic (congestive) heart failure; N18.31 Chronic kidney disease, stage 3a; M06.9 Rheumatoid arthritis, unspecified; E89.0 Postprocedural hypothyroidism; D50.9 Iron deficiency anemia, unspecified; F32.A Depression, unspecified; Z68.35 Body mass index [BMI] 35.0-35.9, adult; K21.9 Gastro-esophageal reflux disease without esophagitis; M54.9 Dorsalgia, unspecified; G43.709 Chronic migraine without aura, not intractable, without status migrainosus; M10.9 Gout, unspecified; F41.9 Anxiety disorder, unspecified; M79.7 Fibromyalgia; R09.02 Hypoxemia; Z79.890 Hormone replacement therapy; Z79.52 Long term (current) use of systemic steroids; E66.812 Obesity, class 2; Z90.710 Acquired absence of both cervix and uterus; Z79.01 Long term (current) use of anticoagulants; Z79.891 Long term (current) use of opiate analgesic; Z79.82 Long term (current) use of aspirin; G89.4 Chronic pain syndrome; Z96.82 Presence of neurostimulator; Z88.5 Allergy status to narcotic agent; Z91.048 Other nonmedicinal substance allergy status
CPT/HCPCS: 36415; 71046; 71275; 80048; 80053; 82962; 83735; 83880; 84100; 84484; 85025; 85027; 85379; 87633; 87635; 93005; 93306; 94640; 94668; 99285; Q9967; A4216; J2405

== ENCOUNTER 2024-06-27 13:50 | Inpatient (IN) | payer MEDICARE, MEDICAID, SELFPAY ==
[2024-06-27] VITALS (16 sets, daily range): BP systolic 119–157; BP diastolic 56–75; PULSE 95–118; RESP 18–34; TEMP 36.4–37.3; O2SAT 91–97; BMI 33.3; BMI 33.1
--- NOTE | 2024-06-27 14:00 | EKG12_ITS ---
Test Reason : SOB Blood Pressure : */* mmHG Vent. Rate : 103 BPM Atrial Rate : 103 BPM P-R Int : 172 ms QRS Dur : 82 ms QT Int : 334 ms P-R-T Axes : 62 -15 59 degrees QTcB Int : 437 ms Sinus tachycardia Possible Lateral infarct (cited on or before 10-Jun-2024) Inferior-posterior infarct , age undetermined Abnormal ECG Confirmed by PAOLA CUELLAR MD ([id number]), pictures editor MOY STERLING ([id number]) on 06/29/2024 8:19:17 AM Referred By: Confirmed By: PAOLA CUELLAR MD
--- NOTE | 2024-06-27 14:02 | ED.VIS.DYS ---
HPI History of Present Illness Chief Complaint: Shortness of Breath Detail of Chief Complaint: Increasing dyspnea since discharge June 12 Informant: patient Onset/Context/Timing Onset: Weeks Context: gradual Timing: Continuous Quality: Positive for Dyspnea on exertion and Wheezing; Negative for Orthopnea or PND Current Severity: Moderate Maximum Severity: Severe Worsened by: Exertion and Coughing Relieved by: Nothing and Oxygen (Patient was discharged on 2 L by nasal cannula and is presently on 4 L to stay above 90%.) Associated Symptoms cough, rhinorrhea, post nasal drip and chills; Negative for ear pain, fever, sore throat, subjective or sweats Chest Pain: Positive for None Narrative Narrative: Patient is a 63-year-old woman who has no significant past medical history. She was recently admitted for hypoxemia. The hypoxemia was due to bilateral pulmonary embolus. She was placed on 5 L at time of admission. The CTA revealed bilateral lower lobe emboli with no significant heart strain. Echo was performed on June 08 showed a ejection fraction of 60%. There is no evidence of heart strain or pulmonary hypertension. Patient was started on Lovenox twice daily and transition to Eliquis. She states she has not missed any of her doses. Patient doing patient apparently has history of hypertension per hospitalist note. As result. She did have elevated troponins with no EKG changes. She has mild kidney disease elevated creatinine between 1.2 and 1.3. BMI at the time of admission was 35. Review of prior records indicates she has hypothyroidism and is on Synthroid. Patient states she has not been out of the house. She has not been in contact with anyone that has been ill. She does endorse endorse chills. She does not believe she has had a fever. She does endorse mild nasal congestion. She denies headache, visual, ocular auditory symptoms. She does have a cough. She states she coughs when she becomes more short of breath. The cough is nonproductive. She denies chest discomfort, tightness heaviness pressure. She denies leg pain, swelling or discoloration. She denies orthopnea or PND. Patient denies abdominal pain, nausea, vomiting or diarrhea. Patient denies urologic symptoms. Patient does endorse bruising easily. PE Risk Factors: Positive for Prior DVT or PE; Negative for OCP + Smoking + > 35, Recent immobilization, Recent surgery or Recent travel Prior similar symptoms: Yes Recent Illness/Hospitalization: Yes PFSH PFSH Medical History Post-menopausal Depression Anxiety Thyroid disease Anemia Gastric reflux Non-smoker Leg cramps History of pain when walking Hypothyroid CKD (chronic kidney disease) Hypertension Infection of spinal cord stimulator Rheumatoid arthritis Chronic pain Arthritis Fibromyalgia Migraines Home Medications ?Medication ?Instructions ?Recorded ?Last Taken ?Type buprenorphine 20 mcg/hour weekly 1 patch transdermal QWEEK PAIN 01/13/21 06/25/24 History transdermal patch (Butrans) hydrocodone-acetaminophen 5-325mg 1 tab PO Q6H PRN Pain 01/13/21 06/27/24 History 5mg-325mg levothyroxine 88 mcg tablet 88 mcg PO DAILY 01/13/21 06/27/24 History (Synthroid) omeprazole 40 mg capsule,delayed 40 mg PO DAILY 01/13/21 06/27/24 History release potassium chloride 20 mEq 20 meq PO .COMPLEX SUPPLEMENT 01/13/21 06/27/24 History tablet,extended release(part/cryst) triamterene 37.5 1 cap PO DAILY Check with primary 01/13/21 06/27/24 History mg-hydrochlorothiazide 25 mg doctor capsule gabapentin 400 mg capsule 400 mg PO TID PAIN 05/08/21 06/27/24 History cholecalciferol (vitamin D3) 125 125 mcg PO DAILY SUPPLEMENT 06/01/22 06/27/24 History mcg (5,000 unit) capsule albuterol sulfate 90 mcg/actuation 2 puff inhalation Q4H PRN 10/22/22 06/27/24 History aerosol inhaler (ProAir HFA) shortness of breath or wheezing magnesium 250 mg tablet 400 mg PO DINNER SUPPLEMENT 10/22/22 06/26/24 History PRIMAL DEFENCE 410 mg PO 1XD probiotic 11/12/22 06/27/24 History metoprolol succinate 50 mg 50 mg PO QHS 11/13/22 06/26/24 History tablet,extended release 24 hr allopurinol 300 mg tablet 300 mg PO DAILY 06/10/24 06/27/24 History colchicine 0.6 mg tablet 0.6 mg PO DAILY 06/10/24 Unknown History adalimumab 40 mg/0.4 mL 40 mg subcut QWEEK 06/27/24 06/25/24 History subcutaneous pen kit (Humira(CF) Pen) apixaban 5 mg (74 tabs) tablets in 5 mg PO Q12H 06/27/24 06/27/24 History a dose pack (Eliquis DVT-PE Treat 30D Start) ferrous gluconate 324 mg (38 mg 324 mg PO DAILY 06/27/24 06/27/24 History iron) tablet prednisone 1 mg tablet 2 mg PO DAILY 06/27/24 06/27/24 History prednisone 10 mg tablet 10 mg PO DAILY 06/27/24 06/27/24 History sulfasalazine 500 mg tablet 500 mg PO BID 06/27/24 Unknown History Allergy/AdvReac Type Severity Reaction Status Date / Time oxycodone Allergy Rash Verified 06/27/24 13:50 adhesive tape AdvReac Rash Verified 06/27/24 13:50 Family History Mother Hypertension Colon polyps Father Lymphoma Surgical History Hx of hysterectomy History of carpal tunnel release Hx of thyroidectomy Hx of cholecystectomy Hx of tonsillectomy Social History household members: none Smoking Status: Never smoker alcohol intake: never substance use type: does not use ROS ROS ED Constitutional Constitutional ED: Reports chills; Denies fever(s), sweats or weight loss Eyes Eyes: Denies blurry vision, change in vision or diplopia ENT ENT ED: Reports rhinorrhea and sore throat; Denies ear pain Cardiovascular Cardiovascular: Denies chest pain, orthopnea, palpitations, paroxysmal nocturnal dyspnea or racing heartbeat Respiratory/Chest Respiratory/Chest: Reports cough, dyspnea and dyspnea on exertion; Denies orthopnea, paroxysmal nocturnal dyspnea or sputum Gastrointestinal Gastrointestinal: Denies abdominal pain, nausea or vomiting Genitourinary Genitourinary ED: Denies dysuria, hematuria or urinary frequency Musculoskeletal Musculoskeletal: Denies arthralgias or myalgias Integumentary Denies rash Neurologic Neurologic: Reports weakness; Denies headache(s) Endocrine Endocrinology: Denies cold intolerance or heat intolerance Hematologic/Lymphatic Hematologic/Lymphatic: Reports easy bruising; Denies easy bleeding EXAM Physical Exam Const Vital Signs: 06/27/24 13:51 06/27/24 14:06 06/27/24 14:08 Temperature 99.2 F H 99.2 F H Temperature Source Oral Oral Pulse Rate 107 H 102 H Respiratory Rate 20 H 22 H Respiratory Effort Respiratory Depth Respiratory Pattern Blood Pressure 157/75 H 149/72 H Blood Pressure Mean 102 97 Pulse Ox 91 95 95 Oxygen Delivery Method Nasal Cannula Nasal Cannula Nasal Cannula Oxygen Flow Rate (L/min) 4 3 3 06/27/24 14:12 06/27/24 14:20 06/27/24 14:30 Temperature Temperature Source Pulse Rate 100 Respiratory Rate 25 H Respiratory Effort Short of Breath Respiratory Depth Deep Respiratory Pattern Tachypnea Normal Blood Pressure 119/56 L Blood Pressure Mean 75 Pulse Ox Oxygen Delivery Method Nasal Cannula Oxygen Flow Rate (L/min) 3 06/27/24 14:36 06/27/24 14:47 06/27/24 15:00 Temperature Temperature Source Pulse Rate 118 H 117 H Respiratory Rate 23 H 34 H Respiratory Effort Respiratory Depth Respiratory Pattern Blood Pressure Blood Pressure Mean Pulse Ox 94 93 94 Oxygen Delivery Method Nasal Cannula Nasal Cannula Oxygen Flow Rate (L/min) 3 3 Positive well nourished and well developed Constitutional Narrative: BMI is 35. General Appearance ED: well developed; Negative for pallor HEENT Reports moist mucous membranes HEENT Narrative: Head is atraumatic normocephalic. Ears normal. Nares patent. Eyes PERRL and EOMs intact bilaterally General Eye ED: Negative for pale conjunctiva or scleral icterus Neck no lymphadenopathy, supple, no meningeal signs and no JVD Resp No normal respiratory effort and No clear to auscultation bilaterally Effort and Inspection: Negative for pain with movement Auscultation: rales bilateral lower and wheezes expiratory wheezes, scattered wheezes (In mid lung salmeron posteriorly) and lower bilaterally Cardio regular rhythm, S1 normal heart sound, S2 normal heart sound and no murmurs Rate: tachycardic GI non-tender, non-distended and no masses Auscultation: normoactive bowel sounds Back/Spine Back/Spine Narrative: Inspection of the back is mild for some mild erythema. The erythema blanches. There is no tenderness. Extremity Extremity Narrative: There is no asymmetry, swelling, discoloration, leg vein distention, palpable cords or tenderness along the distribution of the deep venous system. Neuro oriented x3 and CN's II-XII intact bilaterally Yulisa Coma Scale: document GCS findings Spontaneous Obeys Commands Oriented 15 Sensorium / Orientation: alert Psych mental status grossly normal Skin no wounds and skin turgor normal General Skin Exam: Negative for jaundice or pallor Sepsis Attestation Date exam was performed: 06/27/24 Time exam was performed: 15:37 Possible Source of Sepsis: Pulmonary Fluid Resuscitation Fluid Resuscitation ordered: Fluids not indicated MDM MDM MDM Narrative Medical decision making narrative: Differential diagnosis is pneumonia, upper respiratory infection with bronchospasm, failed outpatient treatment of pulmonary embolus. Doubt congestive heart failure in light of recent echo with EF of 60%. Doubt cardiac ischemia. Since patient's troponins were elevated when she was diagnosed with PE will obtain a troponin and if markedly elevated would increase possibility of cardiac ischemia versus pulmonary embolus. Because patient is wheezing and is on inhalers she was to with albuterol here. She is post on prednisone. If her breathing improves will consider administering higher dose of prednisone. CBC was obtained since white count differential. Patient's presentation is not consistent with pneumothorax. Presentation is not consistent with aortic dissection either. History & Record Review Additional record(s) reviewed:: Prior inpatient record (Recent admission was reviewed as well as discharge summary.), Prior ED visit and Prior labs Lab Data Attestation: I reviewed the patient's lab results. Lab results narrative: White count is elevated with a slight shift. This may be due to stress, the fact that she is on 50 mg of prednisone or infectious. Comprehensive metabolic panel is remarkable for elevated glucose of 197 with normal CO2 anion gap and elevated alkaline phosphatase. The elevated alkaline phosphatase is new compared to prior. Labs: Laboratory Results - last 24 hr 06/27/24 14:04 WBC 17.5 H RBC 4.84 Hgb 14.7 Hct 43.3 MCV 89.5 MCH 30.4 MCHC 33.9 RDW Std Deviation 43.8 RDW Coeff of Hiro 13.4 Plt Count 304 MPV 10.0 Immature Gran % (Auto) 0.600 Neut % (Auto) 79.1 H Lymph % (Auto) 5.9 L [place] % (Auto) 6.2 Eos % (Auto) 7.8 H Baso % (Auto) 0.4 Absolute Neuts (auto) 13.8 H Absolute Lymphs (auto) 1.04 Nucleated RBC % 0 Sodium 136 Potassium 4.0 Chloride 96 L Carbon Dioxide 28.0 Anion Gap 12 BUN 17 Creatinine 1.04 Estim Creat Clear Calc 55.88 Est GFR (MDRD) Non-Af 60 BUN/Creatinine Ratio 16.7 Glucose 197 H Lactic Acid 1.6 Calcium 9.7 Total Bilirubin 0.70 AST 38 H ALT 33 Alkaline Phosphatase 142 H Total Protein 6.7 Albumin 3.5 Globulin 3.2 Albumin/Globulin Ratio 1.1 ABG Data Attestation: I personally reviewed and interpreted this ABG as follows: Interpretation: pH is 7.47 with a bicarb of 29 and total CO2 of 30. Base excess is +5 with a 93% saturation which correlated with the pulse ox. PO2 is 62 with a PCO2 of 39.8. This reveals a alkalosis and is predominantly metabolic. This also indicates an increased AA gradient. ABG results: ABG 06/27/24 14:42 Specimen Type ART Sample Site R Radial pH 7.47 H Bicarbonate Actual 29.0 H Total CO2 30 Base Excess 5 H O2 Saturation 93 L O2 % 3.0 ABG pCO2 39.8 ABG pO2 62 L Luis Enrique Test Positive O2 Delivery Device Cannula Vent Mode Not entered Radiography Chest X-Ray - ED: 2 View and Read by ED Physician (There is increased interstitial markings noted left lower lung field. The cardiac size is unremarkable. Cardiac silhouette is not obscured. There is no effusion. Mediastinum is unremarkable. Osseous structures there are no acute process. The chest x-ray obtained today was compared to June 10.) Diagnostic Testing: Clinical Impression(s) from Imaging Studies Chest X-Ray 06/27/24 14:40 IMPRESSION: Increased markings in the posterior medial segment of the left lower lobe. Early infiltrate should be ruled out. Reading Location: [place] [address] EKG Initial EKG: Attestation: I personally reviewed and interpreted this EKG as follows: Interpretation: Sinus Tachycardia (Rate is 103. [place] interval is 172 ms. QRS duration 82 ms. QT duration 2034 ms. Marion is normal. There is nonseptic changes noted. Will need old EKG for comparison) Management Discussion w/another healthcare provider: Hospitalist (Case was discussed with hospitalist Dr. Maria E Strickland. Because of patient's marked tachycardia tachypnea desaturation with minimal walking she was a full admit to PCU.) Treatment and Re-Evaluation :: Patient desaturated with ambulation to 85%. Heart rate went to 140 and she was breathing greater than 30 times a minute. Nurse stated she did not look well. Since patient is tachycardic tachypneic has a source and there is an infiltrate in my opinion and clinically she probably has a right lower lobe pneumonia as well will obtain blood cultures prior to administration of Rocephin and azithromycin. Blood cultures and antibiotics were not started initially since I was waiting for the rapid antigen for COVID, RSV and influenza. Since those are negative we will treat for bacterial infection. Discharge Plan Dx/Rx/DC Orders Clinical Impression: Left lower lobe pneumonia, Pulmonary embolus, Acute bronchospasm, Acute on chronic hypoxic respiratory failure, Sinus tachycardia, SIRS (systemic inflammatory response syndrome), Elevated blood-pressure reading without diagnosis of hypertension, History of hypothyroidism, Anticoagulant long-term use Disposition Disposition: Acute Care [facility]
[2024-06-27] MEDS: Albuterol 2.5 MG/3 ML VIAL.NEB. INHALATION ×3 (14:20)
[2024-06-27 14:31] LABS: Absolute Lymphocyte Count 1.04 X10^3/uL (0.83-4.51); Absolute Neutrophil Count 13.8 X10^3/uL (2.0-7.7); Basophil# 0.07 X10^3/uL; Basophil% 0.4 % (0-1); Eosinophil# 1.37 X10^3/uL; Eosinophils% 7.8 % (0-5); Hematocrit 43.3 % (37-47); Hemoglobin 14.7 g/dL (12.0-15.0); Lymphocyte # 1.04 X10^3/ul (0.83-4.51); Lymphocyte % 5.9 % (19-41); Mean Corp Hgb Conc 33.9 g/dL (32-36); Mean Corpuscular Hgb 30.4 pg (27.0-32.0); Mean Corpuscular Volume 89.5 fL (81-99); Monocyte# 1.09 X10^3/uL; Monocyte% 6.2 % (0-10); NRBC Flagged by Analyzer 0 % (0-5); Neutrophil # 13.83 X10^3/uL (2.7-7.7); Neutrophil % 79.1 % (47-70); Platelet Count 304 K/mm3 (150-450); RBC Distribution Width CV 13.4 % (11.6-14.6); RBC Distribution Width SD 43.8 fl (35.1-43.9); Red Blood Count 4.84 M/mm3 (4.2-5.4); White Blood Count 17.5 K/mm3 (4.4-11.0)
--- NOTE | 2024-06-27 14:40 | RAD_ITS ---
PROCEDURE: CHEST PA AND LATERAL 06/27/2024 REASON FOR EXAM: RESPIRATORY FAILURE, BILATERAL RALES AND RHONCHI TECHNIQUE: Frontal and lateral views of the chest. COMPARISON: Comparison is made with prior study dated June 10, 2024. FINDINGS: Hardware: EKG electrodes are seen. Heart: The heart size is normal. Mediastinum: The mediastinal contour is unremarkable. Lungs: Mild increased markings at the left lung base. Early infiltrate should be ruled out. Bones: Demineralization of the thoracic vertebrae with increased kyphosis. Loss of height of the T11 vertebrae. Hiatal hernia. RAD/Chest PA and Lateral IMPRESSION: Increased markings in the posterior medial segment of the left lower lobe. Ear ly infiltrate should be ruled out. Reading Location: [place] [id number]
[2024-06-27 14:45] LABS: ALB/GLOB Ratio 1.1 RATIO (0.9-2.4); AST(SGOT) 38 U/L (<=31); Alanine Aminotransfer ALT/SGPT 33 U/L (<=34); Albumin, Serum 3.5 g/dL (3.4-4.8); Alkaline Phosphatase 142 U/L (35-104); Anion Gap 12 (5-15); BUN 17 mg/dL (4-19); BUN/Creat Ratio 16.7 RATIO (10-20); Calcium,Total 9.7 mg/dL (7.6-11.0); Chloride 96 mmol/L (98-108); Creatinine, Serum 1.04 mg/dL (0.70-1.20); EST Glomerular Filtration Rate 60 (>60); Estimated Creatinine Clearance 55.88 ml/min (50-250); Globulin 3.2 g/dL (2.2-4.2); Glucose 197 mg/dL (70-99); Protein, Total 6.7 g/dL (5.9-8.4); Sodium Level 136 mmol/L (133-145)
[2024-06-27 14:46] LABS: Allen Test Positive; Base Excess 5 mmol/L (-2 to +2); Blood Gas Specimen Type ART; Mode Not entered; O2 Delivery Device Cannula; PO2 62 mmHG (75-100); SITE R Radial; SO2 93 % (95-99); Total Carbon Dioxide 30 mmol/L; pCO2 39.8 mmHg (35-45); pH 7.47 (7.35-7.45)
[2024-06-27 14:54] LABS: Lactic Acid 1.6 mmol/L (0.0-2.0)
[2024-06-27] MEDS: MethylPREDNISolone 125 MG/2 ML Vial 60 MG IV (15:24)
--- NOTE | 2024-06-27 15:38 | ED.RN ---
HR BEFORE AMBULATION 112 BPM AND HEART RATE DURING AMBULATION 130-145 BPM.
[2024-06-27] MEDS: Ceftriaxone 2 GM in 0.9% Normal Saline (50mL MB+) 50 ML IV (15:59)
--- NOTE | 2024-06-27 16:09 | HP.PCM.HOS_ITS ---
HPI - General General Date of Admission: 06/27/24 Date of Service: 06/27/24 Chief Complaint: Increasing shortness of breath HPI Narrative SAVANNAH AGUIRRE, is a 63-year-old female with history of chronic pain, GERD, hypothyroidism, hypertension, RA who presented to [facility] ED 06/27/2024 due to increasing dyspnea since discharge on June 12. Patient had recent admission due to hypoxia which was suspected to be due to bilateral pulmonary emboli, she is at 5 L at the time of admission and at that time CTA showed bilateral lower lobe emboli with no significant heart strain and subsequent echo with EF of 60% with no heart strain, she was transitioned to [facility] and discharged home. Patient discharged home on 2 L of nasal cannula and in the ED was on 4 L to maintain sats of 90%. CBC shows white blood cell count of 17.5, the patient is on prednisone so unclear etiology, temp 99.2 with heart rate 107, blood pressure 157/75, respiratory rate 20 with pulse ox initially 91% on 4 L nasal cannula. Patient denies missing any doses of anticoagulation. COVID/flu/RSV negative. Chest x-ray queried early left lower lobe infiltrate. Given her increased shortness of breath and increased O2 requirement with suspected pneumonia hospitalist contacted for admission. Patient evaluated bedside. She reports that she has indeed had increasing shortness of breath over the past couple weeks with increased cough and chills, feels little bit better than she did when she first came in the ED but still feels unwell especially when she tries to get up and move around. 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 [facility] Medical History Post-menopausal Depression Anxiety Thyroid disease Anemia Gastric reflux Non-smoker Leg cramps History of pain when walking Hypothyroid CKD (chronic kidney disease) Hypertension Infection of spinal cord stimulator Rheumatoid arthritis Chronic pain Arthritis Fibromyalgia Migraines Home Medications ?Medication ?Instructions ?Recorded ?Last Taken ?Type buprenorphine 20 mcg/hour weekly 1 patch transdermal Q WEEK PAIN 01/13/21 06/25/24 History transdermal patch (Butrans) hydrocodone-acetaminophen 5-325mg 1 tab PO Q6H PRN Jess n 01/13/21 06/27/24 History 5mg-325mg levothyroxine 88 mcg tablet 88 mcg PO DAILY 01/13/21 0 06/27/24 History (Synthroid) omeprazole 40 mg capsule,delayed 40 mg PO DAILY 06/27/24 History release potassium chloride 20 mEq 20 meq PO .COMPLEX SUPPLEMEN T 01/13/21 06/27/24 History tablet,extended release(part/cryst) triamterene 37.5 1 cap PO DAILY Check with pr imary 01/13/21 06/27/24 History mg-hydrochlorothiazide 25 mg doctor capsule gabapentin 400 mg capsule 400 mg PO TID PAIN 05/08/21 06/27/24 History cholecalciferol (vitamin D3) 125 125 mcg PO DAILY SUPP LEMENT 06/01/22 06/27/24 History mcg (5,000 unit) capsule albuterol sulfate 90 mcg/actuation 2 puff inhalation Q 4H PRN 10/22/22 06/27/24 History aerosol inhaler (ProAir HFA) shortness of breath or wh eezing magnesium 250 mg tablet 400 mg PO DINNER SUPPLEMENT 10/22/22 06/26/24 History PRIMAL DEFENCE 410 mg PO 1XD probiotic 08/2906/27/24 History metoprolol succinate 50 mg 50 mg PO QHS 11/13/2206/26 History tablet,extended release 24 hr allopurinol 300 mg tablet 300 mg PO DAILY 06/10/24 History colchicine 0.6 mg tablet 0.6 mg PO DAILY 06/10/24 Unk nown History adalimumab 40 mg/0.4 mL 40 mg subcut QWEEK 06/27/24 06/25/24 History subcutaneous pen kit (Humira(CF) Pen) apixaban 5 mg (74 tabs) tablets in 5 mg PO Q12H 06/27/24 History a dose pack (Eliquis DVT-PE Treat 30D Start) ferrous gluconate 324 mg (38 mg 324 mg PO DAILY 06/27/24 History iron) tablet prednisone 1 mg tablet 2 mg PO DAILY 06/27/2406/27 History prednisone 10 mg tablet 10 mg PO DAILY 06/27/24/04/02 History sulfasalazine 500 mg tablet 500 mg PO BID 06/27/24 Unk nown History Allergy/AdvReac Type Severity Reaction Status Date / Time oxycodone Allergy Rash Verified 06/27/24 13:50 adhesive tape AdvReac Rash Verified 06/27/24 13:50 Family History Mother Hypertension Colon polyps Father Lymphoma Surgical History Hx of hysterectomy History of carpal tunnel release Hx of thyroidectomy Hx of cholecystectomy Hx of tonsillectomy Social History household members: none Smoking Status: Never smoker alcohol intake: never substance use type: does not use ROS ROS Narrative General: Has had some chills HENT: Denies headache, denies stuffy nose, denies sore throat EYES: Denies changes in vision Resp: Has been coughing and had increased shortness of breath Cardiac: Denies chest pain GI: Denies abdominal pain, denies changes in bowel, denies nausea/vomiting : Denies changes in urination Extremity: Denies swelling MSK: Denies weakness Neuro: Denies any numbness/tingling Heme: Denies any bleeding or bruising Skin: Denies rashes Psychiatric: No complaints voiced Vital Signs Vital Signs Vital Signs: 06/27/24 13:51 06/27/24 14:06 06/27/24 14:08 Temperature 99.2 F H 99.2 F H Temperature Source Oral Oral Pulse Rate 107 H 102 H Respiratory Rate 20 H 22 H Respiratory Effort Respiratory Depth Respiratory Pattern Blood Pressure 157/75 H 149/72 H Blood Pressure Mean 102 97 Pulse Ox 91 95 95 Oxygen Delivery Method Nasal Cannula Nasal Cannula Nasal Cannula Oxygen Flow Rate (L/min) 4 3 3 06/27/24 14:12 06/27/24 14:20 06/27/24 14:30 Temperature Temperature Source Pulse Rate 100 Respiratory Rate 25 H Respiratory Effort Short of Breath Respiratory Depth Deep Respiratory Pattern Tachypnea Normal Blood Pressure 119/56 L Blood Pressure Mean 75 Pulse Ox Oxygen Delivery Method Nasal Cannula Oxygen Flow Rate (L/min) 3 06/27/24 14:36 06/27/24 14:47 06/27/24 15:00 Temperature Temperature Source Pulse Rate 118 H 117 H Respiratory Rate 23 H 34 H Respiratory Effort Respiratory Depth Respiratory Pattern Blood Pressure Blood Pressure Mean Pulse Ox 94 93 94 Oxygen Delivery Method Nasal Cannula Nasal Cannula Oxygen Flow Rate (L/min) 3 3 06/27/24 16:00 Temperature 98.2 F Temperature Source Pulse Rate 110 H Respiratory Rate 23 H Respiratory Effort Respiratory Depth Respiratory Pattern Blood Pressure 144/74 H Blood Pressure Mean 97 Pulse Ox 96 Oxygen Delivery Method Oxygen Flow Rate (L/min) Weight Weight: 85.5 kg Body Mass Index (BMI) 33.3 Physical Exam Narrative General: Alert, oriented, no apparent distress HEENT: Atraumatic, normocephalic Eyes: Anicteric, normal conjunctiva, extraocular movements grossly intact Neck: Supple Respiratory: Increased respiratory effort, coarse bilaterally Cardiovascular: Sinus tachycardia GI: Soft, nontender, nondistended Extremities: No edema Musculoskeletal: Moving all extremities Neuro: No overt focal neurological deficits Skin: No rashes appreciated Psych: Cooperative Results Lab / Micro Data 06/27/24 14:04 06/27/24 14:04 Labs: Laboratory Results - last 24 hr 06/27/24 14:04: WBC 17.5 H, RBC 4.84, Hgb 14.7, Hct 43.3, MCV 89.5, MCH 30.4, MCHC 33.9, RDW Std Deviation 43.8, RDW Coeff of Hiro 13.4, Plt Count 304, MPV 10.0, Immature Gran % (Auto) 0.600, Neut % (Auto) 79.1 H, Lymph % (Auto) 5.9 L, [place] % (Auto) 6.2, Eos % (Auto) 7.8 H, Baso % (Auto) 0.4, Absolute Neuts (auto) 13.8 H, Absolute Lymphs (auto) 1.04, Nucleated RBC % 0, Sodium 136, Potassium 4.0, Chloride 96 L, Carbon Dioxide 28.0, Anion Gap 12, BUN 17, Creatinine 1.04, Estim Creat Clear Calc 55.88, Est GFR (MDRD) Non-Af 60, BUN/Creatinine Ratio 16.7, Glucose 197 H, Lactic Acid 1.6, Calcium 9.7, Total Bilirubin 0.70, AST 38 H, ALT 33, Alkaline Phosphatase 142 H, Total Protein 6.7, Albumin 3.5, Globulin 3.2, Albumin/Globulin Ratio 1.1 Micro: Microbiology 06/27/24 14:04 Mucosa - Nose SARS-CoV-2, Influenza & RSV (PCR) - Final ABG Data ABG results: ABG 06/27/24 14:42 Specimen Type ART Sample Site R Radial pH 7.47 H Bicarbonate Actual 29.0 H Total CO2 30 Base Excess 5 H O2 Saturation 93 L O2 % 3.0 ABG pCO2 39.8 ABG pO2 62 L Luis Enrique Test Positive O2 Delivery Device Cannula Vent Mode Not entered Imaging Radiology Impression Chest X-Ray 06/27/24 14:40 IMPRESSION: Increased markings in the posterior medial segment of the left lower lobe. Early infiltrate should be ruled out. Reading Location: [facility] Assessment & Plan Assessment/Plan (1) Left lower lobe pneumonia: PLAN: Plan # Left lower lobe pneumonia -Imaging: Chest x-ray query as early left lower lobe infiltrate, this does fit clinically for patient -DuoNebs and as needed albuterol -Sputum culture, COVID negative, respiratory panel ordered -Urine antigens -Mucinex, I/S - Will treat more broadly with Levaquin given patient's recent admission # Recent bilateral PEs - Continue Eliquis #GERD -Continue PPI #Hypothyroidism -Continue Synthroid #Hypertension - Will continue patient's home medications # Chronic pain -Continue patient's home regimen #Gout -Continue home allopurinol # History of RA - Patient on prednisone taper currently and was just decreased to 12 mg - She does have some scattered wheezes, will place on 40 for now, no history of COPD or asthma that I am aware of that necessitate IV steroids unless she continues to have wheezing and does not improve or is very slow to improve - Based on med list patient has not started the sulfasalazine yet #DVT ppx: Patient on full dose Eliquis Maria E Strickland MD Charges/Coding Visit Charges Inpatient E&M: 85741 Init Hosp L2
[2024-06-27] MEDS: Azithromycin 500 MG in 0.9% Normal Saline (250mL Bag) 250 ML 255 MG IV (16:46)
[2024-06-27 16:49] LABS: Troponin T High Sensitivity 36 ng/L (<=14)
[2024-06-27] MEDS: Ipratropium/Albuterol Sulfate 3 ML AMPUL.NEB INHALATION (19:28)
[2024-06-27] MEDS: Metoprolol(XL)Succ 50 MG Tablet PO (21:32)
[2024-06-27] MEDS: guaiFENesin 1,200 MG Tablet 1200 MG PO (21:33)
[2024-06-27] MEDS: Gabapentin 400 MG Capsule PO (21:33)
[2024-06-27] MEDS: APIXABAN 5 MG TABLET PO (21:33)
[2024-06-28] VITALS (13 sets, daily range): BP systolic 114–140; BP diastolic 66–76; PULSE 67–96; RESP 14–20; TEMP 36.4–37.2; O2SAT 93–97
[2024-06-28] MEDS: Ipratropium/Albuterol Sulfate 3 ML AMPUL.NEB INHALATION ×4 (00:42→19:30)
[2024-06-28] MEDS: Gabapentin 400 MG Capsule PO ×3 (06:22→21:57)
[2024-06-28] MEDS: Levothyroxine 88 MCG Tablet PO (06:22)
[2024-06-28 07:48] LABS: Absolute Neutrophil Count 11.2 X10^3/uL (2.0-7.7); Basophil# 0.05 X10^3/uL; Basophil% 0.4 % (0-1); Hematocrit 39.5 % (37-47); Hemoglobin 13.3 g/dL (12.0-15.0); Lymphocyte % 9.2 % (19-41); Mean Corp Hgb Conc 33.7 g/dL (32-36); Mean Corpuscular Hgb 30.2 pg (27.0-32.0); Mean Corpuscular Volume 89.8 fL (81-99); Monocyte# 0.45 X10^3/uL; Monocyte% 3.5 % (0-10); NRBC Flagged by Analyzer 0 % (0-5); Neutrophil # 11.19 X10^3/uL (2.7-7.7); Neutrophil % 86.1 % (47-70); Platelet Count 264 K/mm3 (150-450); RBC Distribution Width CV 13.2 % (11.6-14.6); RBC Distribution Width SD 43.5 fl (35.1-43.9)
[2024-06-28 08:41] LABS: Anion Gap 14 (5-15); BUN 23 mg/dL (4-19); Calcium,Total 9.5 mg/dL (7.6-11.0); Carbon Dioxide 25.2 mmol/L (21.0-32.0); Chloride 99 mmol/L (98-108); Creatinine, Serum 0.98 mg/dL (0.70-1.20); EST Glomerular Filtration Rate 64 (>60); Estimated Creatinine Clearance 59.09 ml/min (50-250); Glucose 185 mg/dL (70-99); Sodium Level 138 mmol/L (133-145); Thyroid Stim Hormone (TSH) 0.356 uIU/mL (0.300-4.200)
[2024-06-28] MEDS: Potassium Chloride Oral Tablet 20 MEQ 40 MEQ PO (08:59)
[2024-06-28] MEDS: predniSONE 20 MG Tablet 40 MG PO (09:00)
[2024-06-28] MEDS: Allopurinol 300 MG Tablet PO (09:00)
[2024-06-28] MEDS: Triamterene 37.5MG/Hctz 25MG Capsule 1 CAP PO (09:35)
[2024-06-28] MEDS: APIXABAN 5 MG TABLET PO ×2 (09:35→21:57)
[2024-06-28] MEDS: levoFLOXacin IV 750 MG/150 ML BAG 100 MG IV (09:36)
[2024-06-28] MEDS: 0.9% Saline Lock 10 ML Syringe IV (09:39)
[2024-06-28] MEDS: HYDROcodone Bitartrate/Apap 5/325 Tablet PO ×2 (09:40→17:01)
[2024-06-28] MEDS: Pantoprazole Sodium 40 MG Tablet PO (09:40)
[2024-06-28] MEDS: guaiFENesin 1,200 MG Tablet 1200 MG PO ×2 (09:42→21:57)
[2024-06-28] MEDS: 0.9% Normal Saline (100mL Bag) 100 ML 15 ML IV (09:43)
[2024-06-28] MEDS: Ferrous Gluconate 324 MG Tablet PO (12:30)
[2024-06-28] MEDS: Potassium Chloride Oral Tablet 20 MEQ PO (17:02)
[2024-06-28] MEDS: Magnesium Chloride 64 MG Delay Rel.Tablet 128 MG PO (17:02)
--- NOTE | 2024-06-28 18:22 | PN.HOSP_ITS ---
Reason for Visit Reason for Visit: Diagnoses Pneumonia, unspecified organism (06/27/24) Subjective Subjective Patient was seen and examined today, she has no complaints of any shortness of breath at rest. Patient's oxygen requirement at rest is 2 L presently Objective Data Objective Data Vital Signs: Vital Signs Temp Pulse Resp BP Pulse Ox O2 Del Method O2 Flow Rate 97.6 F L 78 15 133/72 H 97 Nasal Cannula 2 06/28/24 17:03 06/28/24 17:03 06/28/24 17:03 06/28/24 17:03 06/28/24 17:03 06/28/24 17:35 06/28/24 17:35 Oxygen Flow Rate (L/min) 2 Oxygen Delivery Method Nasal Cannula Weight: 84.9 kg Body Mass Index (BMI) 33.1 Intake & Output: Intake and Output for Last 24 Hours 06/26/24 06/27/24 06/28/24 23:59 23:59 23:59 Intake Total 355 / 355 601.75 / 601.75 Output Total 300 / 300 150 / 150 Balance 55 / 55 451.75 / 451.75 Lab / Micro Data 06/28/24 07:05 06/28/24 07:05 Labs: Laboratory Results - last 24 hr 06/28/24 07:05: WBC 13.0 H, RBC 4.40, Hgb 13.3, Hct 39.5, MCV 89.8, MCH 30.2, MCHC 33.7, RDW Std Deviation 43.5, RDW Coeff of Hiro 13.2, Plt Count 264, MPV 10.0, Immature Gran % (Auto) 0.800, Neut % (Auto) 86.1 H, Lymph % (Auto) 9.2 L, [place] % (Auto) 3.5, Eos % (Auto) 0.0, Baso % (Auto) 0.4, Absolute Neuts (auto) 11.2 H, Absolute Lymphs (auto) 1.20, Nucleated RBC % 0, Sodium 138, Potassium 4.0, Chloride 99, Carbon Dioxide 25.2, Anion Gap 14, BUN 23 H, Creatinine 0.98, Estim Creat Clear Calc 59.09, Est GFR (MDRD) Non-Af 64, BUN/Creatinine Ratio 23.0 H, Glucose 185 H, Calcium 9.5, TSH 0.356 Micro: Microbiology 06/27/24 17:45 Mucosa - Nasopharyngeal Respiratory Panel (PCR) - Final 06/27/24 19:50 Urine, Random Legionella Antigen - Final 06/27/24 19:50 Urine, Random Streptococcus pneumoniae Antigen (M - Final 06/27/24 14:04 Mucosa - Nose SARS-CoV-2, Influenza & RSV (PCR) - Final Physical Exam Const alert, oriented x3, no apparent distress and healthy appearing General Appearance: cooperative, well kempt and well developed Orientation / Consciousness: awake, oriented to person, oriented to place and oriented to time HEENT normocephalic, head/scalp atraumatic and moist oral mucous membranes Eyes PERRL, EOMs intact bilaterally and conjunctivae normal Neck supple, no JVD, thyroid normal and no carotid bruits General: trachea midline Resp normal respiratory effort, no retractions, no use of accessory muscles and clear to auscultation bilaterally Auscultation: Negative for rales, rhonchi or wheezes Cardio regular rate, regular rhythm, S1 normal heart sound, S2 normal heart sound, no murmurs, no rub and no gallops GI normal to inspection, nondistended, normoactive bowel sounds, soft to palpation, non-tender and non-distended Extremity no clubbing, cyanosis or edema Skin no rashes or lesions noted General Skin Exam: no breakdown Neuro oriented x3, CN's II-XII intact bilaterally, moves all extremities, no focal motor deficits and no sensory deficits noted Sensorium / Orientation: awake and alert Speech: speech normal Psych affect normal Assessment & Plan Assessment/Plan (1) Left lower lobe pneumonia: PLAN: Plan 1. Left lower lobe pneumonia-continue IV Levaquin, I do not believe the patient requires high-dose prednisone at this time, I have reduced her prednisone dosage to 10 mg daily-she had been on prednisone as an outpatient for RA and was on a taper. Patient is to remain on aerosol treatments at this time, urine for Legionella and strep pneumo antigen was negative, respiratory panel was unremarkable. Patient is not producing any significant sputum. #2 recent pulmonary embolism-patient is on Eliquis #3 rheumatoid arthritis-again patient was placed on lower dose prednisone, she will resume her home dose when she is discharged #4 hypothyroidism-patient is on Synthroid #5 hypoxia secondary to recent pulmonary embolism and community-acquired pneumonia-pulse ox will be monitored, oxygen will be weaned if possible Total clinical time spent by myself addressing the patient's medical issues, reviewing all of her data, and collaborating with patient's care team: 35 minutes Charges/Coding Visit Charges Inpatient E&M: 68230 Subs Hosp L2
[2024-06-28] MEDS: Ibuprofen 200 MG Tablet PO (21:57)
[2024-06-28] MEDS: Metoprolol(XL)Succ 50 MG Tablet PO (21:57)
[2024-06-29] VITALS (9 sets, daily range): BP systolic 122–138; BP diastolic 67–75; PULSE 68–93; RESP 12–19; TEMP 36.4–36.6; O2SAT 88–96
--- NOTE | 2024-06-29 00:43 | NURSING ---
This RN to take over care for this PT at this time.
[2024-06-29] MEDS: Ipratropium/Albuterol Sulfate 3 ML AMPUL.NEB INHALATION ×3 (02:05→13:29)
[2024-06-29] MEDS: Gabapentin 400 MG Capsule PO ×2 (05:40→16:05)
[2024-06-29] MEDS: Levothyroxine 88 MCG Tablet PO (05:40)
[2024-06-29] MEDS: 0.9% Saline Lock 10 ML Syringe IV (05:40)
[2024-06-29] MEDS: Allopurinol 300 MG Tablet PO (09:07)
[2024-06-29] MEDS: Triamterene 37.5MG/Hctz 25MG Capsule 1 CAP PO (09:07)
[2024-06-29] MEDS: guaiFENesin 1,200 MG Tablet 1200 MG PO (09:08)
[2024-06-29] MEDS: Pantoprazole Sodium 40 MG Tablet PO (09:08)
[2024-06-29] MEDS: APIXABAN 5 MG TABLET PO (09:08)
[2024-06-29] MEDS: Potassium Chloride Oral Tablet 20 MEQ 40 MEQ PO (09:08)
[2024-06-29] MEDS: levoFLOXacin IV 750 MG/150 ML BAG 100 MG IV (09:12)
[2024-06-29] MEDS: predniSONE 10 MG Tablet PO (09:12)
--- NOTE | 2024-06-29 09:50 | RAD_ITS ---
PROCEDURE: CHEST PA AND LATERAL 06/29/2024 REASON FOR EXAM: PNEUMONIA TECHNIQUE: Frontal and lateral views of the chest. COMPARISON: Comparison is made with prior study dated June 30, 2024. FINDINGS: Hardware: EKG electrodes are seen. Heart: The heart size is normal. Mediastinum: The mediastinal contour is unremarkable. Lungs: Minimal residual changes are seen at the lung bases suggestive of mild bibasilar atelectasis. No focal infiltrate is seen. Bones: Degenerative changes are identified within the thoracic spine. Increased kyphosis. RAD/Chest PA and Lateral IMPRESSION: Mild residual increased markings at the lung base suggestive of mild atelectasi s. No focal infiltrate is seen. Reading Location: [facility]
[2024-06-29] MEDS: Ferrous Gluconate 324 MG Tablet PO (12:13)
--- NOTE | 2024-06-29 14:56 | CASEMGMT ---
LAURA DENSON chart review: Patient was admitted 06/10-06/12/24 for hypoxia and PE. See assessment from 06/11/24. Patient was discharged home with home oxygen, family support, and follow-up plans in place. Patient returned to [facility] ED for increased SOB and admitted for pneumonia and started on Levaquin. LAURA DENSON in to discuss needs and readmission. Patient states she was wearing her oxygen as prescribed. Patient was able to fill prescriptions without issues and was taking medication as prescribed. Patient was able to follow up with her PCP. Will monitor for increase in home oxygen and need of HHC at discharge. Patient denies further needs or concerns at this time. CM will continue to follow this patient and plan for a safe discharge.
--- NOTE | 2024-06-29 16:27 | PCM.DC ---
Discharge Instructions Diet Discharge Diet: No restrictions DC O2, CPAP, BIPAP needs Home O2 Discharge instructions: Yes Type of respiratory needs?: Oxygen Oxygen frequency: With Ambulation Oxygen liters per minute during Ambulation: 2 L Dressing / Incision Discharge Activity: Return to Normal Activity Weight Bearing Status: Full weight bearing Follow Up Care Test Results: Test results from this visit will be discussed in further detail at your follow-up appointment, if applicable. Discharge Plan Admission Admit Date/Time: 06/27/24 16:09 Primary Reason for Your Visit: Pneumonia, atelectasis Attending Provider: Pk Warren Primary Care Provider: Pk Donahue Consulting Providers: Maria E Strickland Instructions Additional Instructions / Restrictions: Oxygen at 2 L/min when ambulating and during any activity Discharge Orders/Prescriptions Prescriptions: New levofloxacin 750 mg tablet 750 mg PO DAILY Qty: 5 0RF Rx Instructions: Start on 06/30/2024 Continued gabapentin 400 mg capsule 400 mg PO TID Patient Comments: take 1 capsule by mouth three times a day albuterol sulfate [ProAir HFA] 90 mcg/actuation HFA aerosol inhaler 2 puff inhalation Q4H PRN (Reason: shortness of breath or wheezing) hydrocodone-acetaminophen 5-325 mg Tablet 1 tab PO Q6H PRN (Reason: Pain) omeprazole 40 mg Capsule,Delayed Release(Dr/Ec) 40 mg PO DAILY triamterene-hydrochlorothiazid 37.5-25 mg Capsule 1 cap PO DAILY levothyroxine [Synthroid] 88 mcg Tablet 88 mcg PO DAILY potassium chloride 20 mEq tablet,ER particles/crystals 20 meq PO .COMPLEX Rx Instructions: 20 mEq orally 2 tabs am and 1 tab pm; buprenorphine [Butrans] 20 mcg/hour Patch Weekly 1 patch TRANSDERMAL QWEEK Rx Instructions: on wednesdays cholecalciferol (vitamin D3) 125 mcg (5,000 unit) Capsule 125 mcg PO DAILY magnesium 250 mg tablet 400 mg PO DINNER PRIMAL DEFENCE 410 mg PO 1XD Rx Instructions: DIETARY SUPPLEMENT metoprolol succinate 50 mg Tablet Extended Release 24 Hr 50 mg PO QHS allopurinol 300 mg tablet 300 mg PO DAILY colchicine 0.6 mg tablet 0.6 mg PO DAILY prednisone 10 mg tablet 10 mg PO DAILY Rx Instructions: with 1mg tab prednisone 1 mg tablet 2 mg PO DAILY Rx Instructions: with 10mg, pcp is tapering dose down ferrous gluconate 324 mg (38 mg iron) tablet 324 mg PO DAILY Humira(CF) Pen 40 mg/0.4 mL pen injector kit 40 mg subcut QWEEK Eliquis DVT-PE Treat 30D Start 5 mg (74 tabs) tablets,dose pack 5 mg PO Q12H Held sulfasalazine 500 mg tablet 500 mg PO BID Hold Instructions: Resume per direction of your central supply technician supervisor Patient Comments: pt has not started yet Referrals / Follow Up: Pk Donahue DO [Primary Care Provider] - In 1 Week Disposition Disposition (needs filled in before D/C Order can be placed): Home, Self Care
--- NOTE | 2024-06-29 16:33 | PCM.DC.SUM ---
Providers Date of Admission: 06/27/24 Date of Discharge: 06/29/24 Primary Care Physician: Dr. Pk Donahue DO Reason For Visit: PNEUMONIA Diagnosis Discharge Diagnosis (1) Left lower lobe pneumonia: Status: Acute Code(s): J18.9 - Pneumonia, unspecified organism Plan 1. Left lower lobe pneumonia-continue IV Levaquin, I do not believe the patient requires high-dose prednisone at this time, I have reduced her prednisone dosage to 10 mg daily-she had been on prednisone as an outpatient for RA and was on a taper. Patient is to remain on aerosol treatments at this time, urine for Legionella and strep pneumo antigen was negative, respiratory panel was unremarkable. Patient is not producing any significant sputum. #2 recent pulmonary embolism-patient is on Eliquis #3 rheumatoid arthritis-again patient was placed on lower dose prednisone, she will resume her home dose when she is discharged #4 hypothyroidism-patient is on Synthroid #5 hypoxia secondary to recent pulmonary embolism and community-acquired pneumonia-pulse ox will be monitored, oxygen will be weaned if possible Total clinical time spent by myself addressing the patient's medical issues, reviewing all of her data, and collaborating with patient's care team: 35 minutes Medications at Discharge Home Medications buprenorphine 20 mcg/hour weekly transdermal patch (Butrans) 1 patch transdermal QWEEK PAIN 01/13/21 hydrocodone-acetaminophen 5-325mg 5mg-325mg 1 tab PO Q6H PRN Pain 01/13/21 levothyroxine 88 mcg tablet (Synthroid) 88 mcg PO DAILY 01/13/21 omeprazole 40 mg capsule,delayed release 40 mg PO DAILY 01/13/21 potassium chloride 20 mEq tablet,extended release(part/cryst) 20 meq PO .COMPLEX SUPPLEMENT 01/13/21 triamterene 37.5 mg-hydrochlorothiazide 25 mg capsule 1 cap PO DAILY Check with primary doctor 01/13/21 gabapentin 400 mg capsule 400 mg PO TID PAIN 05/08/21 cholecalciferol (vitamin D3) 125 mcg (5,000 unit) capsule 125 mcg PO DAILY SUPPLEMENT 06/01/22 albuterol sulfate 90 mcg/actuation aerosol inhaler (ProAir HFA) 2 puff inhalation Q4H PRN shortness of breath or wheezing 10/22/22 magnesium 250 mg tablet 400 mg PO DINNER SUPPLEMENT 10/22/22 PRIMAL DEFENCE 410 mg PO 1XD probiotic 11/12/22 metoprolol succinate 50 mg tablet,extended release 24 hr 50 mg PO QHS 11/13/22 allopurinol 300 mg tablet 300 mg PO DAILY 06/10/24 colchicine 0.6 mg tablet 0.6 mg PO DAILY 06/10/24 adalimumab 40 mg/0.4 mL subcutaneous pen kit (Humira(CF) Pen) 40 mg subcut QWEEK 06/27/24 apixaban 5 mg (74 tabs) tablets in a dose pack (Eliquis DVT-PE Treat 30D Start) 5 mg PO Q12H 06/27/24 ferrous gluconate 324 mg (38 mg iron) tablet 324 mg PO DAILY 06/27/24 prednisone 1 mg tablet 2 mg PO DAILY 06/27/24 prednisone 10 mg tablet 10 mg PO DAILY 06/27/24 sulfasalazine 500 mg tablet 500 mg PO BID anti-rheumatic 06/27/24 Held on 06/29/24. Instructions: Resume per direction of your humid system operator levofloxacin 750 mg tablet 750 mg PO DAILY #5 tabs 06/29/24 Hospital Course Operations None Procedures None Summary of Care Provided Minutes Spent on Discharge: 32 Hospital Course: This 63-year-old white female was seen in the emergency room at [facility] with complaints of shortness of breath, she had been recently hospitalized at [facility] and diagnosed with a pulmonary embolism, she was discharged home at that time on 2 L of oxygen with activity. Patient stated however that she has been using oxygen at rest because she felt it was benefiting her. Workup in the emergency room included a chest x-ray which showed increased markings in the left lower lobe suggestive of pneumonia. Lab revealed an elevated white blood cell count of 17.5, and patient required supplemental low-flow oxygen at rest. Patient was admitted to PCU for left lower lobe pneumonia and placed on IV Levaquin, she was given aerosol treatments, and improved during her hospitalization. On 06/29/24, patient was seen and examined: On examination she appeared in good health and spirits, she does not appear to be in any distress. Vital signs as documented. Skin warm and dry and without overt rashes. Neck without JVD, thyroid appears normal, trachea is midline, neck is supple. Lungs clear, normal air movement was noted. Heart exam notable for regular rhythm, normal sounds and absence of murmurs, rubs or gallops. Abdomen unremarkable and without evidence of organomegaly, masses, or abdominal aortic enlargement, bowel sounds are present in all 4 quadrants, no abdominal tenderness was noted. Extremities nonedematous, no cyanosis was noted, no clubbing was noted. Neuro: Cranial nerves II through XII are grossly intact, no focal motor deficits were noted, sensation to light touch and pinprick is intact, motor exam 5/5 throughout. Psych: Patient is alert and oriented x3, she does not appear anxious or depressed, she does not appear agitated. Patient required oxygen at 2 L only with ambulation at the time of discharge from the hospital. Patient was discharged home in stable condition on 06/29/2024. Weight / BMI Weight Weight: 84.9 kg Body Mass Index (BMI) 33.1 ABG / Lab / Microbiology Data 06/28/24 07:05 06/28/24 07:05 Microbiology: Microbiology 06/27/24 14:04 Blood Culture (Wb) - Anticubital Left Blood Culture - Preliminary No growth in 48 hours. 06/27/24 15:44 Blood Culture (Wb) - Anticubital Left Blood Culture - Preliminary No growth in 48 hours. 06/27/24 17:45 Mucosa - Nasopharyngeal Respiratory Panel (PCR) - Final 06/27/24 19:50 Urine, Random Legionella Antigen - Final 06/27/24 19:50 Urine, Random Streptococcus pneumoniae Antigen (M - Final 06/27/24 14:04 Mucosa - Nose SARS-CoV-2, Influenza & RSV (PCR) - Final Radiography Diagnostic Testing: Radiology Impression Chest X-Ray 06/29/24 09:50 IMPRESSION: Mild residual increased markings at the lung base suggestive of mild atelectasis. No focal infiltrate is seen. Reading Location: [facility]--1 D/C Instructions Discharge Diet: No restrictions Weight Bearing Status: Full weight bearing DC O2, CPAP, BIPAP Needs Home O2 Discharge instructions: Yes Type of respiratory needs?: Oxygen Oxygen frequency: With Ambulation Oxygen liters per minute during Ambulation: 2 L DC home with Oxygen: Yes Home O2 MD Review: I have reviewed the oxygen testing, and the patient qualifies for home oxygen equipment and portability. The patient is mobile in the home and the community. Meaningful Use Info Meaningful Use Meaningful Use Diagnoses (Choose all that apply): None applicable Ischemic Stroke Statin Dosing Therapy Reference: STATIN DOSE THERAPY REFERENCE: * Patients > 75 years receive moderate or high dose statin therapy. * Patients 75 years or YOUNGER should receive HIGH intensity statin dose unless contraindicated. You will be required to document reason for non-treatment if statin daily dose does not meet guidelines. HIGH DOSE STATIN THERAPY DAILY Atorvastatin > than or = to 40 mg Rosuvastatin > than or = to 20 mg Amlodipine + Atorvastatin > than or = to 2.5/40 mg Ezetimibe + Simvastatin 10/80 mg Simvastatin 80mg Discharge Plan Admission Admit Date/Time: 06/27/24 16:09 Primary Reason for Your Visit: Pneumonia, atelectasis Attending Provider: Pk Warren Primary Care Provider: Pk Donahue Consulting Providers: Maria E Strickland Instructions Additional Instructions / Restrictions: Oxygen at 2 L/min when ambulating and during any activity Discharge Orders/Prescriptions Prescriptions: New levofloxacin 750 mg tablet 750 mg PO DAILY Qty: 5 0RF Rx Instructions: Start on 06/30/2024 Continued gabapentin 400 mg capsule 400 mg PO TID Patient Comments: take 1 capsule by mouth three times a day albuterol sulfate [ProAir HFA] 90 mcg/actuation HFA aerosol inhaler 2 puff inhalation Q4H PRN (Reason: shortness of breath or wheezing) hydrocodone-acetaminophen 5-325 mg Tablet 1 tab PO Q6H PRN (Reason: Pain) omeprazole 40 mg Capsule,Delayed Release(Dr/Ec) 40 mg PO DAILY triamterene-hydrochlorothiazid 37.5-25 mg Capsule 1 cap PO DAILY levothyroxine [Synthroid] 88 mcg Tablet 88 mcg PO DAILY potassium chloride 20 mEq tablet,ER particles/crystals 20 meq PO .COMPLEX Rx Instructions: 20 mEq orally 2 tabs am and 1 tab pm; buprenorphine [Butrans] 20 mcg/hour Patch Weekly 1 patch TRANSDERMAL QWEEK Rx Instructions: on wednesdays cholecalciferol (vitamin D3) 125 mcg (5,000 unit) Capsule 125 mcg PO DAILY magnesium 250 mg tablet 400 mg PO DINNER PRIMAL DEFENCE 410 mg PO 1XD Rx Instructions: DIETARY SUPPLEMENT metoprolol succinate 50 mg Tablet Extended Release 24 Hr 50 mg PO QHS allopurinol 300 mg tablet 300 mg PO DAILY colchicine 0.6 mg tablet 0.6 mg PO DAILY prednisone 10 mg tablet 10 mg PO DAILY Rx Instructions: with 1mg tab prednisone 1 mg tablet 2 mg PO DAILY Rx Instructions: with 10mg, pcp is tapering dose down ferrous gluconate 324 mg (38 mg iron) tablet 324 mg PO DAILY Humira(CF) Pen 40 mg/0.4 mL pen injector kit 40 mg subcut QWEEK Eliquis DVT-PE Treat 30D Start 5 mg (74 tabs) tablets,dose pack 5 mg PO Q12H Held sulfasalazine 500 mg tablet 500 mg PO BID Hold Instructions: Resume per direction of your humid system operator Patient Comments: pt has not started yet Referrals / Follow Up: Pk Donahue DO [Primary Care Provider] - In 1 Week Disposition Disposition (needs filled in before D/C Order can be placed): Home, Self Care Charges/Coding Visit Charges Inpatient E&M: 10690 Disch Hosp >30min
== END 2024-06-29 17:09 | disposition home or self-care (01) | DRG 193 ==
LOC: ED 16:08 → PCU 16:45
PROVIDERS: Admitting Provider Internal Medicine; Emergency Provider Emergency Medicine; PCP Family Medicine; Visit Provider Internal Medicine
DX: J18.9 Pneumonia, unspecified organism (principal); I26.99 Other pulmonary embolism without acute cor pulmonale; J96.01 Acute respiratory failure with hypoxia; M06.9 Rheumatoid arthritis, unspecified; E03.9 Hypothyroidism, unspecified; F32.A Depression, unspecified; F41.9 Anxiety disorder, unspecified; K21.9 Gastro-esophageal reflux disease without esophagitis; M10.9 Gout, unspecified; G89.29 Other chronic pain; Z79.52 Long term (current) use of systemic steroids; Z79.01 Long term (current) use of anticoagulants; Z79.890 Hormone replacement therapy; Z79.899 Other long term (current) drug therapy
CPT/HCPCS: 36415; 36600; 71046; 80048; 80053; 82803; 83605; 84443; 84484; 85025; 87040; 87449; 87631; 87633; 93005; 94640; 94668; 99285; A4216; J0696

== ENCOUNTER 2024-07-08 16:33 | Emergency (ER) | payer MEDICARE, MEDICAID, SELFPAY ==
[2024-07-08 16:34] VITALS: BP 146/81; PULSE 103; RESP 24; TEMP 36.2; O2SAT 92
[2024-07-08 16:36] VITALS: BMI 32.8
[2024-07-08 16:43] VITALS: O2SAT 97
--- NOTE | 2024-07-08 16:54 | EX.ED.DYSGE1 ---
HPI <EARNESTINE Pagan - Last Filed: 07/08/24 21:32> History of Present Illness Chief Complaint: Shortness of Breath Narrative Narrative: 63-year-old female presents with 4-day history of sore throat, cough and shortness of breath. She was diagnosed with bilateral pulmonary emboli on 06/10/2024 and admitted due to hypoxia. She was discharged with Eliquis and 2-3 L of O2 which she has been wearing since then. In the interval she developed pneumonia requiring admission on 06/27 through 06/29 and was discharged on 2 L O2 and levofloxacin. She completed the antibiotics and felt better until 4 days ago she developed a cough which worsened this morning and she developed a fever of 101 ?F and a sore throat. PFSH <EARNESTINE Pagan - Last Filed: 07/08/24 21:32> [facility] Medical History Post-menopausal Depression Anxiety Thyroid disease Anemia Gastric reflux Non-smoker Leg cramps History of pain when walking Hypothyroid CKD (chronic kidney disease) Hypertension Infection of spinal cord stimulator Rheumatoid arthritis Chronic pain Arthritis Fibromyalgia Migraines Home Medications ?Medication ?Instructions ?Recorded ?Last Taken ?Type buprenorphine 20 mcg/hour weekly 1 patch transdermal QWEEK PAIN 01/13/21 07/02/24 History transdermal patch (Butrans) hydrocodone-acetaminophen 5-325mg 1 tab PO Q6H PRN Pain 01/13/21 07/08/24 History 5mg-325mg levothyroxine 88 mcg tablet 88 mcg PO DAILY 01/13/21 07/08/24 History (Synthroid) omeprazole 40 mg capsule,delayed 40 mg PO DAILY 01/13/21 07/08/24 History release potassium chloride 20 mEq 20 meq PO .COMPLEX SUPPLEMENT 01/13/21 07/08/24 History tablet,extended release(part/cryst) triamterene 37.5 1 cap PO DAILY Check with primary 01/13/21 07/08/24 History mg-hydrochlorothiazide 25 mg doctor capsule gabapentin 400 mg capsule 400 mg PO TID PAIN 05/08/21 07/08/24 History cholecalciferol (vitamin D3) 125 125 mcg PO DAILY SUPPLEMENT 06/01/22 07/08/24 History mcg (5,000 unit) capsule magnesium 250 mg tablet 400 mg PO DINNER SUPPLEMENT 10/22/22 07/07/24 History PRIMAL DEFENCE 410 mg PO 1XD probiotic 11/12/22 07/08/24 History metoprolol succinate 50 mg 50 mg PO QHS 11/13/22 07/07/24 History tablet,extended release 24 hr allopurinol 300 mg tablet 300 mg PO DAILY 06/10/24 06/27/24 History adalimumab 40 mg/0.4 mL 40 mg subcut QWEEK 06/27/24 07/02/24 History subcutaneous pen kit (Humira(CF) Pen) apixaban 5 mg (74 tabs) tablets in 5 mg PO Q12H 06/27/24 07/08/24 History a dose pack ([employer] DVT-PE Treat 30D Start) ferrous gluconate 324 mg (38 mg 324 mg PO DAILY 06/27/24 07/08/24 History iron) tablet prednisone 1 mg tablet 2 mg PO DAILY 06/27/24 07/08/24 History prednisone 10 mg tablet 10 mg PO DAILY 06/27/24 07/08/24 History albuterol sulfate 2.5 mg/3 mL 2.5 mg (3 mL) inhalation Q4H PRN 07/08/24 Unknown Rx (0.083 %) solution for nebulization #25 vials albuterol sulfate 90 mcg/actuation 2 inh inhalation Q4H PRN shortness 07/08/24 Unknown History breath activated powder inhaler of breath or wheezing nystatin 100,000 unit/mL oral 2 ml PO BID #100 mL 07/08/24 Unknown Rx suspension Allergy/AdvReac Type Severity Reaction Status Date / Time oxycodone Allergy Rash Verified 07/08/24 16:46 adhesive tape AdvReac Rash Verified 07/08/24 16:46 Family History Mother Hypertension Colon polyps Father Lymphoma Surgical History Hx of hysterectomy History of carpal tunnel release Hx of thyroidectomy Hx of cholecystectomy Hx of tonsillectomy Social History household members: none Smoking Status: Never smoker alcohol intake: never substance use type: does not use ROS <EARNESTINE Pagan Last Filed: 07/08/24 21:32> ROS ED ROS Narrative Constitutional: Positive for fever. ENT: Positive for sore throat. CVS: Negative for palpitations, chest pain, syncope. Respiratory: Positive for cough. GI: Negative for abdominal pain, nausea, vomiting, diarrhea. EXAM <EARNESTINE Pagan - Last Filed: 07/08/24 21:32> Physical Exam Narrative Exam Narrative: CONST: Patient sitting in no acute distress. EYES: Normal inspection. ENT: Normal inspection, yellow film consistent with oral candidiasis. NECK: Normal inspection. RESP: No respiratory distress, lung crackles throughout all [place]. CVS: Regular rate and rhythm, no murmur, no gallop. SKIN: Color normal, no rash, warm, dry, intact. EXTREMITIES: Normal appearance, no pedal edema. NEURO: Alert and answering questions appropriately. PSYCH: Normal affect. Const Vital Signs: 07/08/24 16:34 07/08/24 16:43 07/08/24 17:01 Temperature 97.1 F L Temperature Source Temporal Pulse Rate 103 H 96 Respiratory Rate 24 H 16 Respiratory Effort Short of Breath Respiratory Depth Normal Respiratory Pattern Normal Blood Pressure 146/81 H Blood Pressure Mean 102 Pulse Ox 92 Oxygen Delivery Method Nasal Cannula Nasal Cannula Oxygen Flow Rate (L/min) 3 3 07/08/24 17:40 07/08/24 18:00 07/08/24 18:23 Temperature 98.6 F 98.4 F 98.0 F Temperature Source Oral Oral Pulse Rate 101 H 101 H 98 Respiratory Rate 17 23 H 16 Respiratory Effort Respiratory Depth Respiratory Pattern Blood Pressure 112/76 133/77 H 132/75 H Blood Pressure Mean 88 95 94 Pulse Ox 96 95 94 Oxygen Delivery Method Nasal Cannula Nasal Cannula Oxygen Flow Rate (L/min) 3 3 <Dr. Lance Loja MD - Last Filed: 07/08/24 19:11> Physical Exam Const Vital Signs: 07/08/24 16:34 07/08/24 16:43 07/08/24 17:01 Temperature 97.1 F L Temperature Source Temporal Pulse Rate 103 H 96 Respiratory Rate 24 H 16 Respiratory Effort Short of Breath Respiratory Depth Normal Respiratory Pattern Normal Blood Pressure 146/81 H Blood Pressure Mean 102 Pulse Ox 92 Oxygen Delivery Method Nasal Cannula Nasal Cannula Oxygen Flow Rate (L/min) 3 3 07/08/24 17:40 07/08/24 18:00 07/08/24 18:23 Temperature 98.6 F 98.4 F 98.0 F Temperature Source Oral Oral Pulse Rate 101 H 101 H 98 Respiratory Rate 17 23 H 16 Respiratory Effort Respiratory Depth Respiratory Pattern Blood Pressure 112/76 133/77 H 132/75 H Blood Pressure Mean 88 95 94 Pulse Ox 96 95 94 Oxygen Delivery Method Nasal Cannula Nasal Cannula Oxygen Flow Rate (L/min) 3 3 MDM <EARNESTINE Pagan - Last Filed: 07/08/24 21:32> [facility] MDM Narrative Medical decision making narrative: 63-year-old female presents with sore throat, cough, and fever. She is on chronic 3 L O2 due to recent diagnosis of pulmonary embolism and pneumonia and is 92% or above on 3 L here with stable vital signs. Exam is notable for oral candidiasis and diffuse lung crackles. Labs show WBC 15.3 which is slightly elevated from her recent prednisone use. Hemoglobin and platelets are normal. BMP overall all unremarkable. EKG is nonischemic and troponin is 30 which is similar to her previous. CXR shows no acute process and viral swab for COVID/flu/RSV is negative. Symptomatically she feels much better after aerosol treatments. She has a nebulizer at home but no medication. I prescribed albuterol solution and also oral nystatin for thrush. She has no interval changes on her x-ray and no increased oxygen requirement so does not need admission. I recommended follow-up with pulmonology and she was discharged in stable condition. Lab Data Attestation: I reviewed the patient's lab results. Labs: Laboratory Results - last 24 hr 07/08/24 17:20 WBC 15.3 H RBC 4.60 Hgb 13.8 Hct 41.0 MCV 89.1 MCH 30.0 MCHC 33.7 RDW Std Deviation 44.0 H RDW Coeff of Hiro 13.6 Plt Count 265 MPV 9.8 Immature Gran % (Auto) 0.500 Neut % (Auto) 84.1 H Lymph % (Auto) 5.4 L Sum[place] % (Auto) 3.6 Eos % (Auto) 6.1 H Baso % (Auto) 0.3 Absolute Neuts (auto) 12.9 H Absolute Lymphs (auto) 0.83 Nucleated RBC % 0 Sodium 134 Potassium 4.2 Chloride 96 L Carbon Dioxide 27.9 Anion Gap 10 BUN 20 H Creatinine 0.93 Estim Creat Clear Calc 61.92 Est GFR (MDRD) Non-Af 68 BUN/Creatinine Ratio 21.9 H Glucose 185 H Calcium 9.7 Troponin T High Sens 30 H D Radiography Diagnostic Testing: Clinical Impression(s) from Imaging Studies Chest X-Ray 07/08/24 17:20 IMPRESSION: 1. Mild basilar interstitial prominence is similar and was better depicted on CT 06/10/2024. Differential considerations include a mild chronic interstitial abnormality or and trace edema/pneumonitis. 2. Additional description as above. Reading Location: [facility] ED attending interpretation of 2 view chest x-ray shows normal heart size, no large infiltrate. <Dr. Lance Loaj MD - Last Filed: 07/08/24 19:11> [facility] Lab Data Labs: Laboratory Results - last 24 hr 07/08/24 17:20 WBC 15.3 H RBC 4.60 Hgb 13.8 Hct 41.0 MCV 89.1 MCH 30.0 MCHC 33.7 RDW Std Deviation 44.0 H RDW Coeff of Hiro 13.6 Plt Count 265 MPV 9.8 Immature Gran % (Auto) 0.500 Neut % (Auto) 84.1 H Lymph % (Auto) 5.4 L Sum[place] % (Auto) 3.6 Eos % (Auto) 6.1 H Baso % (Auto) 0.3 Absolute Neuts (auto) 12.9 H Absolute Lymphs (auto) 0.83 Nucleated RBC % 0 Sodium 134 Potassium 4.2 Chloride 96 L Carbon Dioxide 27.9 Anion Gap 10 BUN 20 H Creatinine 0.93 Estim Creat Clear Calc 61.92 Est GFR (MDRD) Non-Af 68 BUN/Creatinine Ratio 21.9 H Glucose 185 H Calcium 9.7 Troponin T High Sens 30 H D Radiography Diagnostic Testing: Clinical Impression(s) from Imaging Studies Chest X-Ray 07/08/24 17:20 IMPRESSION: 1. Mild basilar interstitial prominence is similar and was better depicted on CT 06/10/2024. Differential considerations include a mild chronic interstitial abnormality or and trace edema/pneumonitis. 2. Additional description as above. Reading Location: [facility] Treatment and Re-Evaluation Comments:: I have personally performed a face to face assessment of the patient and have reviewed the MARIA ELENA Note. I performed a substantive portion of the visit including all aspects of the following. My smith findings include: History is today low-grade fever, sore throat, increased dyspnea. Recently admitted for PE, diagnosed with pneumonia, finished Levaquin couple days ago. Was on high-dose steroids in the hospital, back to her lower dose taper now for her rheumatoid arthritis. Exam is some crackles in the bases. Worse on the right. No respiratory distress. Evidence of oral thrush in the posterior pharynx, buccal mucosa near the molars maxillary, and tongue. No pedal edema or JVD. No stridor. Medical Decison Making 2 view chest x-ray my interpretation shows no significant changes compared with her prior a week ago. Radiology in agreement, she did have some prominent markings in the left lower lobe 2 days prior to her last x-ray that they were questioning left lower lobe pneumonia, but it seems better on the x-ray 2 days after that, and there is no evidence of consolidation or pneumonia on the x-ray today according to radiology which I agree with. It all seems interstitial. On her CT from 06/10 there was no consolidation but she did have groundglass opacities in the pulmonary emboli that were noted. Here her vital signs are normal, she has no increased oxygen requirement, and she is significantly better on reevaluation after a nebulizer treatment here. I am not sure why she has the crackles but I doubt this is an acute bacterial infection. Her low-grade fever may be related to her thrush. Technically she still has antibiotics in her body since she just finished the Levaquin and should be active for about 5 days after finishing it. The thrush is likely related to the antibiotics and the steroids which we are treating, and she has a nebulizer machine so we are going to refill medicine for that, and refer her to pulmonology. Pulmonary not available at the time the patient is evaluated to discuss this with. Discussed at length with patient and daughter they are comfortable with that overall plan. Other additions or changes: [None] Discharge Plan Triage Chief Complaint: Shortness of Breath ED Midlevel Provider: Chrissy Cabrera ED Provider: Lance Loja Dx/Rx/DC Orders Clinical Impression: Upper respiratory disease, Candidiasis of mouth, Acute bronchospasm Instructions: [place] Infection: Thrush, ED URI, Viral W/ Wheezing (Adult) Prescriptions: New nystatin 100,000 unit/mL suspension 2 ml PO BID Qty: 100 0RF Rx Instructions: Swish and gargle with 2 ml then spit out 2 times a day albuterol sulfate 2.5 mg /3 mL (0.083 %) solution for nebulization 2.5 mg inhalation Q4H PRN Qty: 25 0RF Rx Instructions: Use q4 hours and PRN for wheezing No Action gabapentin 400 mg capsule 400 mg PO TID hydrocodone-acetaminophen 5-325 mg Tablet 1 tab PO Q6H PRN (Reason: Pain) omeprazole 40 mg Capsule,Delayed Release(Dr/Ec) 40 mg PO DAILY triamterene-hydrochlorothiazid 37.5-25 mg Capsule 1 cap PO DAILY levothyroxine [Synthroid] 88 mcg Tablet 88 mcg PO DAILY potassium chloride 20 mEq tablet,ER particles/crystals 20 meq PO .COMPLEX Rx Instructions: 20 mEq orally 2 tabs am and 1 tab pm; buprenorphine [Butrans] 20 mcg/hour Patch Weekly 1 patch TRANSDERMAL QWEEK Rx Instructions: PT DOES ON SATURDAYS cholecalciferol (vitamin D3) 125 mcg (5,000 unit) Capsule 125 mcg PO DAILY magnesium 250 mg tablet 400 mg PO DINNER Patient Comments: PT TAKES AT NIGHT PRIMAL DEFENCE 410 mg PO 1XD Rx Instructions: DIETARY SUPPLEMENT metoprolol succinate 50 mg Tablet Extended Release 24 Hr 50 mg PO QHS allopurinol 300 mg tablet 300 mg PO DAILY prednisone 10 mg tablet 10 mg PO DAILY Rx Instructions: with 1mg tab prednisone 1 mg tablet 2 mg PO DAILY Rx Instructions: with 10mg, pcp is tapering dose down ferrous gluconate 324 mg (38 mg iron) tablet 324 mg PO DAILY Humira(CF) Pen 40 mg/0.4 mL pen injector kit 40 mg subcut QWEEK Patient Comments: PT TAKES ON SATURDAYS Eliquis DVT-PE Treat 30D Start 5 mg (74 tabs) tablets,dose pack 5 mg PO Q12H albuterol sulfate 90 mcg/actuation aerosol powdr breath activated 2 inh inhalation Q4H PRN (Reason: shortness of breath or wheezing) Primary Care Provider: Pk Donahue Referrals: Jose M Gonzalez DO [Med Staff - Active Staff] - Pk Donahue DO [Primary Care Provider] - Activity Restrictions/Additional Instructions: Your chest x-ray shows no evidence of new pneumonia. Since you had improvement with breathing treatments I prescribed albuterol solution you can use at home with your nebulizer and also treatment for thrush. Follow-up with pulmonology. Print Language: Lithuanian Disposition Disposition: Home, Self Care Discharge Date/Time: 07/08/24 18:53
[2024-07-08] MEDS: Ipratropium/Albuterol Sulfate 3 ML AMPUL.NEB INHALATION (16:59)
[2024-07-08 17:01] VITALS: PULSE 96; RESP 16
--- NOTE | 2024-07-08 17:05 | EKG12_ITS ---
Test Reason : SOB Blood Pressure : */* mmHG Vent. Rate : 98 BPM Atrial Rate : 98 BPM P-R Int : 168 ms QRS Dur : 76 ms QT Int : 334 ms P-R-T Axes : 63 -12 55 degrees QTcB Int : 426 ms Normal sinus rhythm Cannot rule out Inferior infarct , age undetermined Abnormal ECG Confirmed by POLO GÓMEZ, PAOLA ([id number]), legal editor DAVY MAIN ([id number]) on 07/15/2024 12:40:13 PM Referred By: TB/BB Confirmed By: PAOLA CUELLAR MD
--- NOTE | 2024-07-08 17:20 | RAD_ITS ---
PROCEDURE: CHEST PA AND LATERAL (RADCXR), 07/08/2024 REASON FOR EXAM: COUGH TECHNIQUE: PA and lateral views of the chest were obtained. COMPARISON: 06/29/2024 FINDINGS: Heart: Unremarkable. Mediastinum: Unremarkable. Lungs/pleura: Similar mild basilar interstitial prominence. No pleural effusion or visible pneumothorax. Bones: Demineralization. Multilevel spondylosis. Similar exaggeration of the thoracic kyphosis centered at the thoracolumbar junction.. Thoracolumbar levoscoliosis. Degenerative changes of the shoulders. Lines and support devices: None. Other: RIGHT upper quadrant surgical clips.. RAD/Chest PA and Lateral IMPRESSION: 1. Mild basilar interstitial prominence is similar and was better depicted on C T 06/10/2024. Differential considerations include a mild chronic interstitial abnormality or and trace edema/pneumonitis. 2. Additional description as above. Reading Location: [id number]
[2024-07-08 17:28] LABS: Absolute Lymphocyte Count 0.83 X10^3/uL (0.83-4.51); Absolute Neutrophil Count 12.9 X10^3/uL (2.0-7.7); Basophil# 0.05 X10^3/uL; Basophil% 0.3 % (0-1); Eosinophil# 0.94 X10^3/uL; Eosinophils% 6.1 % (0-5); Hemoglobin 13.8 g/dL (12.0-15.0); Lymphocyte # 0.83 X10^3/ul (0.83-4.51); Lymphocyte % 5.4 % (19-41); Mean Corp Hgb Conc 33.7 g/dL (32-36); Mean Corpuscular Volume 89.1 fL (81-99); Mean Platelet Vol. 9.8 fl (6.2-12.0); Monocyte# 0.55 X10^3/uL; Monocyte% 3.6 % (0-10); NRBC Flagged by Analyzer 0 % (0-5); Neutrophil # 12.89 X10^3/uL (2.7-7.7); Neutrophil % 84.1 % (47-70); Platelet Count 265 K/mm3 (150-450); RBC Distribution Width CV 13.6 % (11.6-14.6); White Blood Count 15.3 K/mm3 (4.4-11.0)
[2024-07-08 17:40] VITALS: BP 112/76; PULSE 101; RESP 17; TEMP 37; O2SAT 96
[2024-07-08 18:00] VITALS: BP 133/77; PULSE 101; RESP 23; TEMP 36.9; O2SAT 95
[2024-07-08 18:03] LABS: Anion Gap 10 (5-15); BUN 20 mg/dL (4-19); BUN/Creat Ratio 21.9 RATIO (10-20); Calcium,Total 9.7 mg/dL (7.6-11.0); Carbon Dioxide 27.9 mmol/L (21.0-32.0); Chloride 96 mmol/L (98-108); Creatinine, Serum 0.93 mg/dL (0.70-1.20); EST Glomerular Filtration Rate 68 (>60); Estimated Creatinine Clearance 61.92 ml/min (50-250); Glucose 185 mg/dL (70-99); Potassium 4.2 mmol/L (3.3-5.1); Sodium Level 134 mmol/L (133-145)
[2024-07-08 18:23] VITALS: BP 132/75; PULSE 98; RESP 16; TEMP 36.7; O2SAT 94
[2024-07-08 18:26] LABS: Troponin T High Sensitivity 30 ng/L (<=14)
== END 2024-07-08 18:53 | disposition home or self-care (01) ==
PROVIDERS: Physician Assistant; Emergency Provider Emergency Medicine; PCP Family Medicine; Visit Provider Emergency Medicine
DX: J06.9 Acute upper respiratory infection, unspecified (principal); M06.9 Rheumatoid arthritis, unspecified; B37.0 Candidal stomatitis; J98.01 Acute bronchospasm; I10 Essential (primary) hypertension; E03.9 Hypothyroidism, unspecified; K21.9 Gastro-esophageal reflux disease without esophagitis; M79.7 Fibromyalgia; M19.90 Unspecified osteoarthritis, unspecified site; Z79.52 Long term (current) use of systemic steroids; Z79.01 Long term (current) use of anticoagulants; Z86.711 Personal history of pulmonary embolism; Z79.890 Hormone replacement therapy; Z79.899 Other long term (current) drug therapy
CPT/HCPCS: 71046; 80048; 84484; 85025; 87631; 93005; 94640; 99282; A4216

== ENCOUNTER → 2024-07-20 | Outpatient (CLI) | payer MEDICARE, MEDICAID, SELFPAY | END | disposition home or self-care (01) | PROVIDERS: PCP Family Medicine; Referring Provider Family Medicine; Visit Provider Family Medicine | DX: R05.9 Cough, unspecified (principal) | CPT/HCPCS: 87070; 87077; 87186; 87205 ==

== ENCOUNTER → 2024-07-28 | Outpatient (CLI) | payer MEDICARE, MEDICAID, SELFPAY ==
[2024-07-28 11:15] VITALS: PULSE 67; PULSE 70; PULSE 84; PULSE 87; PULSE 88; PULSE 93; O2SAT 88; O2SAT 89; O2SAT 90; O2SAT 91; O2SAT 93; O2SAT 94
--- NOTE | 2024-07-28 12:13 | CPS ---
Patient wears 3 lpm at home. Continuous at home and pulse dose when out of the house. Patient dropped to 88% after being off her oxygen for 10 minutes. Reapplied her home O2 setting of 3 lpm pulse dose, SpO2 recovered to 93% before walking. Patient used 3 lpm pulse dose the entire test. Patient took 2 breaks that were about 30-45 seconds long. Reported mostly leg weakness that made it hard to keep walking. Patient gave good effort and stated that this was more than she has been able to walk at home these past couple months.
--- NOTE | 2024-08-02 12:33 | PCM.PSN.6M ---
PSN 6 Minute Walk Test 6 Minute Walk Test 6 Minute Walk Test: 6 Minute Walk Test PSN:6-Minute Walk Test Start: 07/28/24 12:10 Freq: Status: Active Protocol: [id number] Document 07/28/24 11:15 BLANCAJOHNNY (Rec: 07/28/24 12:16 BLANCAJOHNNY [id number]) 6 Minute Walk Test Date Performed 07/28/24 Time Performed 11:15 Height 5 ft 2 in Weight: 178 lb Weight in Pounds 178.[address]: Jose M Gonzalez Assistive device None used: Pre-test Oxygen Delivery Room Air Method Pulse Ox (%) 88 Pulse Rate (60-100 67 beats/min) Dyspnea Canelo Scale ( 0 0-10) Exertion Canelo Scale 6 (6-20) 1st minute Oxygen Flow Rate (L/ 3 min) (L/min) Oxygen Delivery Nasal Cannula Method Pulse Ox (%) 90 Pulse Rate (60-100 87 beats/min) 2nd minute Oxygen Flow Rate (L/ 3 min) (L/min) Oxygen Delivery Nasal Cannula Method Pulse Ox (%) 91 Pulse Rate (60-100 88 beats/min) Number of Rests 1 Taken 3rd minute Oxygen Flow Rate (L/ 3 min) (L/min) Oxygen Delivery Nasal Cannula Method Pulse Ox (%) 90 Pulse Rate (60-100 84 beats/min) 4th minute Oxygen Flow Rate (L/ 3 min) (L/min) Oxygen Delivery Nasal Cannula Method Pulse Ox (%) 91 Pulse Rate (60-100 87 beats/min) Number of Rests 1 Taken 5th minute Oxygen Flow Rate (L/ 3 min) (L/min) Oxygen Delivery Nasal Cannula Method Pulse Ox (%) 93 Pulse Rate (60-100 87 beats/min) 6th minute Oxygen Flow Rate (L/ 3 min) (L/min) Oxygen Delivery Nasal Cannula Method Pulse Ox (%) 89 Pulse Rate (60-100 93 beats/min) Dyspnea Canelo Scale ( 3 0-10) Exertion Canelo Scale 14 (6-20) Post-test Oxygen Flow Rate (L/ 3 min) (L/min) Oxygen Delivery Nasal Cannula Method Pulse Ox (%) 94 Pulse Rate (60-100 70 beats/min) Full Laps Walked 8 Partial Lap, Number 16 of Tiles Walked Total Distance 488 Walked (ft) 07/28/24 12:13 Cardiopulmonary Services by Marina Mcqueen Patient wears 3 lpm at home. Continuous at home and pulse dose when out of the house. Patient dropped to 88% after being off her oxygen for 10 minutes. Reapplied her home O2 setting of 3 lpm pulse dose, SpO2 recovered to 93% before walking. Patient used 3 lpm pulse dose the entire test. Patient took 2 breaks that were about 30-45 seconds long. Reported mostly leg weakness that made it hard to keep walking. Patient gave good effort and stated that this was more than she has been able to walk at home these past couple months. Initialized on 07/28/24 12:13 - END OF NOTE Interpretation Interpretation: The patient ambulated 488 feet over the course of 6 minutes beginning on room air without assistive devices. Pretesting oxygen saturation was noted to be 88% on room air. 3 L/min of pulsed dose supplemental oxygen was subsequently applied and the patient was able to complete the remainder of the test while maintaining appropriate saturations. Recommendations Recommendations: 3 L/min of pulsed dose supplemental oxygen should be utilized at all times.
== END | disposition home or self-care (01) ==
LOC: PSN 11:03
PROVIDERS: PCP Family Medicine; Referring Provider Internal Medicine Critical Care Medicine; Visit Provider Internal Medicine Critical Care Medicine
DX: R06.02 Shortness of breath (principal); R09.02 Hypoxemia
CPT/HCPCS: 94618

== ENCOUNTER 2024-08-01 12:44 | Inpatient (IN) | payer MEDICARE, MEDICAID, SELFPAY ==
[2024-08-01] VITALS (14 sets, daily range): BP systolic 105–139; BP diastolic 61–96; PULSE 79–116; RESP 16–30; TEMP 36.9–37.3; O2SAT 89–100; BMI 32.5; BMI 29.6
--- NOTE | 2024-08-01 13:01 | EKG12_ITS ---
Test Reason : SOB Blood Pressure : */* mmHG Vent. Rate : 93 BPM Atrial Rate : 87 BPM P-R Int : 144 ms QRS Dur : 80 ms QT Int : 338 ms P-R-T Axes : 56 5 66 degrees QTcB Int : 420 ms Undetermined rhythm Normal sinus rhythm NORMAL POOR TRACING Confirmed by Nick Sullivan ([id number]), film and video editor MOY STERLING ([id number]) on 08/08/2024 12:57:18 PM Referred By: Confirmed By: Nick Sullivan
--- NOTE | 2024-08-01 13:09 | ED.VIS.DYS ---
HPI History of Present Illness Chief Complaint: Shortness of Breath Detail of Chief Complaint: Increase shortness of breath with low-grade fever and productive cough Informant: patient Onset/Context/Timing Onset: Days Context: sudden Timing: Continuous and Waxes and wanes Quality: Positive for Dyspnea on exertion and Wheezing; Negative for Orthopnea or PND Current Severity: Mild Maximum Severity: Moderate Worsened by: Exertion and Coughing Relieved by: Nothing Associated Symptoms cough, fever, chills, sweats and green sputum; Negative for rhinorrhea, post nasal drip, ear pain, sore throat or subjective Chest Pain: Positive for None Narrative Narrative: Patient is a 63-year-old woman. She was diagnosed with pulmonary embolus approximately 2 months ago. She is present on Eliquis. She has had pneumonia twice since. She completed a course of Bactrim since she had MRSA. She presents because of temperature and then 99-100 range with productive cough of green-colored sputum. She also complained of dyspnea, dyspnea on exertion and wheezing. She has been on oxygen since diagnosed with pulmonary embolus approximately 2 months ago. She denies headache, visual, ocular auditory symptoms. She denies chest pain, orthopnea or PND. She denies pain with breathing. She is presently on prednisone 10 mg due to rheumatoid arthritis. She was on a burst recently. She denies abdominal pain, nausea, vomit or diarrhea. Has black maroon-colored stool. She does have history of iron deficiency anemia. She denies any urologic symptoms. PE Risk Factors: Negative for Cancer, OCP + Smoking + > 35, Prior DVT or PE, Recent surgery or Recent travel Prior similar symptoms: Yes Recent Illness/Hospitalization: Yes [facility] Medical History MRSA (methicillin resistant staph aureus) culture positive Anticoagulant long-term use History of hypothyroidism Elevated blood-pressure reading without diagnosis of hypertension SIRS (systemic inflammatory response syndrome) Sinus tachycardia Acute on chronic hypoxic respiratory failure Acute bronchospasm Pulmonary embolus Left lower lobe pneumonia Post-menopausal Depression Anxiety Thyroid disease Anemia Gastric reflux Non-smoker Leg cramps History of pain when walking Hypothyroid CKD (chronic kidney disease) Hypertension Infection of spinal cord stimulator Rheumatoid arthritis Chronic pain Arthritis Fibromyalgia Migraines Home Medications ?Medication ?Instructions ?Recorded ?Last Taken ?Type buprenorphine 20 mcg/hour weekly 1 patch transdermal QWEEK PAIN 01/13/21 07/02/24 History transdermal patch (Butrans) hydrocodone-acetaminophen 5-325mg 1 tab PO Q6H PRN Pain 01/13/21 07/08/24 History 5mg-325mg levothyroxine 88 mcg tablet 88 mcg PO DAILY 01/13/21 07/08/24 History (Synthroid) omeprazole 40 mg capsule,delayed 40 mg PO DAILY 01/13/21 07/08/24 History release potassium chloride 20 mEq 20 meq PO .COMPLEX SUPPLEMENT 01/13/21 07/08/24 History tablet,extended release(part/cryst) triamterene 37.5 1 cap PO DAILY Check with primary 01/13/21 07/08/24 History mg-hydrochlorothiazide 25 mg doctor capsule gabapentin 400 mg capsule 400 mg PO TID PAIN 05/08/21 07/08/24 History cholecalciferol (vitamin D3) 125 125 mcg PO DAILY SUPPLEMENT 06/01/22 07/08/24 History mcg (5,000 unit) capsule magnesium 250 mg tablet 400 mg PO DINNER SUPPLEMENT 10/22/22 07/07/24 History PRIMAL DEFENCE 410 mg PO 1XD probiotic 11/12/22 07/08/24 History metoprolol succinate 50 mg 50 mg PO QHS 11/13/22 07/07/24 History tablet,extended release 24 hr allopurinol 300 mg tablet 300 mg PO DAILY 06/10/24 06/27/24 History adalimumab 40 mg/0.4 mL 40 mg subcut QWEEK 06/27/24 07/02/24 History subcutaneous pen kit (Humira(CF) Pen) apixaban 5 mg (74 tabs) tablets in 5 mg PO Q12H 06/27/24 07/08/24 History a dose pack (Eliquis DVT-PE Treat 30D Start) ferrous gluconate 324 mg (38 mg 324 mg PO DAILY 06/27/24 07/08/24 History iron) tablet prednisone 1 mg tablet 2 mg PO DAILY 06/27/24 07/08/24 History prednisone 10 mg tablet 10 mg PO DAILY 06/27/24 07/08/24 History albuterol sulfate 2.5 mg/3 mL 2.5 mg (3 mL) inhalation Q4H PRN 07/08/24 Unknown Rx (0.083 %) solution for nebulization #25 vials albuterol sulfate 90 mcg/actuation 2 inh inhalation Q4H PRN shortness 07/08/24 Unknown History breath activated powder inhaler of breath or wheezing nystatin 100,000 unit/mL oral 2 ml PO BID #100 mL 07/08/24 Unknown Rx suspension Allergy/AdvReac Type Severity Reaction Status Date / Time oxycodone Allergy Rash Verified 08/01/24 12:45 adhesive tape AdvReac Rash Verified 08/01/24 12:45 Family History Mother Hypertension Colon polyps Father Lymphoma Surgical History Hx of hysterectomy History of carpal tunnel release Hx of thyroidectomy Hx of cholecystectomy Hx of tonsillectomy Social History household members: none Smoking Status: Never smoker alcohol intake: never substance use type: does not use ROS ROS ED Constitutional Constitutional ED: Reports fever(s) and sweats; Denies chills or weight loss Eyes Eyes: Denies blurry vision, change in vision or diplopia ENT ENT ED: Reports sore throat; Denies ear pain or rhinorrhea Cardiovascular Cardiovascular: Denies chest pain, palpitations or racing heartbeat Respiratory/Chest Respiratory/Chest: Reports cough, dyspnea, dyspnea on exertion and sputum Gastrointestinal Gastrointestinal: Denies abdominal pain, diarrhea, nausea or vomiting Genitourinary Genitourinary ED: Denies dysuria, hematuria or urinary frequency Musculoskeletal Musculoskeletal: Reports arthralgias and myalgias Integumentary Denies rash Neurologic Neurologic: Reports paresthesias and weakness; Denies headache(s) Endocrine Endocrinology: Denies cold intolerance or heat intolerance Hematologic/Lymphatic Hematologic/Lymphatic: Denies easy bleeding or easy bruising EXAM Physical Exam Const Vital Signs: 08/01/24 12:44 08/01/24 12:44 08/01/24 12:47 Temperature 99 F 99 F Temperature Source Temporal Oral Pulse Rate 105 H 88 Respiratory Rate 30 H 24 H Respiratory Effort Respiratory Pattern Blood Pressure 139/77 H 133/76 H Blood Pressure Mean 97 95 Pulse Ox 89 91 100 Oxygen Delivery Method Nasal Cannula Nasal Cannula Nasal Cannula Oxygen Flow Rate (L/min) 3 3 3 08/01/24 12:53 08/01/24 13:20 08/01/24 13:47 Temperature 99 F Temperature Source Oral Pulse Rate 89 116 H Respiratory Rate 16 20 H Respiratory Effort Short of Breath Respiratory Pattern Normal Blood Pressure 111/61 Blood Pressure Mean 77 Pulse Ox 96 Oxygen Delivery Method Nasal Cannula Nasal Cannula Oxygen Flow Rate (L/min) 3 3 Positive well nourished and well developed Constitutional Narrative: Patient's vitals are marked for elevated blood pressure, heart rate and respiratory rate. General Appearance ED: well developed HEENT Reports TM's clear and moist mucous membranes atraumatic; Negative for trauma Tympanic Membrane ED: Yes TM's clear Eyes PERRL and EOMs intact bilaterally General Eye ED: Negative for pale conjunctiva or scleral icterus Neck no lymphadenopathy, supple, no meningeal signs and no JVD Neck Narrative: Trachea is midline. There is no stridor. Resp No normal respiratory effort and No clear to auscultation bilaterally Auscultation: wheezes expiratory wheezes Cardio regular rhythm, S1 normal heart sound, S2 normal heart sound and no murmurs Rate: tachycardic GI non-tender, non-distended and no masses Auscultation: normoactive bowel sounds Back/Spine no CVA tenderness Extremity normal to inspection Neuro oriented x3 and CN's II-XII intact bilaterally [place] Coma Scale: document GCS findings Spontaneous Obeys Commands Oriented 15 Sensorium / Orientation: alert Speech: speech normal Psych mental status grossly normal Skin no wounds and skin turgor normal Sepsis Attestation Sepsis Alert: Yes Sepsis Attestation: Agree w/Sepsis Date exam was performed: 08/01/24 Time exam was performed: 14:00 Possible Source of Sepsis: Pulmonary Sepsis Organ Dysfunction Criteria Present: Lactic Acid > 2 mmol/L (Patient's lactic acidosis could be due to multiple aerosol treatments, hypoxia in addition to possibility of sepsis which is a possibility. Most likely it is due to hypoxia which is type a lactic acidosis.) Fluid Resuscitation Fluid resuscitation indicated?: Yes (Fluid bolus was not given. Patient is not hypotensive. She is not clinically dehydrated. And with an elevated creatinine need to be concern for fluid overload.) MDM MDM MDM Narrative Medical decision making narrative: Differential diagnosis would include pneumonia, exacerbation of lung disease, PE failed appropriate outpatient therapy, doubt cardiac ischemia. Doubt pneumothorax and she has bilateral lung sounds. Workup included CBC, comprehensive metabolic panel to assess for endorgan dysfunction white count anemia. Chest x-ray to evaluate for pneumonia, pneumothorax heart failure which is doubtful. EKG to evaluate for any ischemic changes. History & Record Review Additional record(s) reviewed:: Prior outpatient record and Prior ED visit Lab Data Attestation: I reviewed the patient's lab results. Lab results narrative: CBC reveals elevated white count of 16,000 with slight shift. There is no bandemia. H&H and platelet count normal. Competence metabolic panel is an elevated creatinine from baseline to 1.33 with an estimated GFR 44. Glucose slightly elevated 147 with a normal CO2 anion gap. Patient has slight elevation of AST and ALT which is not significant. Labs: Laboratory Results - last 24 hr 08/01/24 08/01/24 12:57 13:13 WBC 16.0 H RBC 4.67 Hgb 14.0 Hct 43.2 MCV 92.5 MCH 30.0 MCHC 32.4 RDW Std Deviation 47.8 H RDW Coeff of Hiro 14.3 Plt Count 290 MPV 10.0 Immature Gran % (Auto) 0.600 Neut % (Auto) 82.6 H Lymph % (Auto) 2.8 L [place] % (Auto) 5.2 Eos % (Auto) 8.2 H Baso % (Auto) 0.6 Absolute Neuts (auto) 13.2 H Absolute Lymphs (auto) 0.44 L Nucleated RBC % 0 Sodium 137 Potassium 4.3 Chloride 99 Carbon Dioxide 24.0 Anion Gap 14 BUN 14 Creatinine 1.33 H Estim Creat Clear Calc 43.17 L Est GFR (MDRD) Non-Af 44 L BUN/Creatinine Ratio 10.3 Glucose 147 H Lactic Acid 2.7 H* Calcium 9.7 Total Bilirubin 0.56 AST 46 H ALT 37 H Alkaline Phosphatase 123 H Total Protein 6.5 Albumin 3.6 Globulin 2.9 Albumin/Globulin Ratio 1.2 I was informed by nursing staff that lactate is elevated. I was informed that patient triggered sepsis. After reviewing her images laboratory studies history and physical agree with sepsis alert. Patient was treated with Rocephin and azithromycin. She recently completed a course of Bactrim for MRSA pneumonia. The x-ray changes are new since July 08, 2024. Since patient does have leukocytosis lactic acidosis with chronic respiratory failure with multilobar interstitial infiltrates we will contact hospitalist for admission. Radiography Chest X-Ray - ED: 2 View and Read by ED Physician (Compared to x-ray obtained May there is increased markings on the left side and potentially right lower lobe. These are patchy in nature.) Diagnostic Testing: Clinical Impression(s) from Imaging Studies Chest X-Ray 08/01/24 13:55 IMPRESSION: Stable bibasilar interstitial prominence, compatible with mild chronic interstitial abnormality, trace edema or pneumonitis. Reading Location: [id number] Rhythm Strip Rhythm Strip: Sinus Tach Rate: 102 EKG Initial EKG: Attestation: I personally reviewed and interpreted this EKG as follows: Interpretation: Sinus Rhythm (Rate is 93. Patient has a sinus mechanism. There is artifact that is making it difficult for the computer to read. RI interval 144 ms. QS duration 80 ms. QT duration 338 ms. [place] normal. My opinion this is a normal EKG) Management Discussion w/another healthcare provider: Hospitalist (Since Case and discussed with Dr. Camacho. He asked if I gave a fluid bolus. In my opinion fluid bolus is not indicated.) Discharge Plan Triage Chief Complaint: Shortness of Breath ED Provider: Carlos Jiménez Dx/Rx/DC Orders Clinical Impression: Multilobar lung infiltrate, Chronic respiratory failure with hypoxia, Sinus tachycardia seen on credit consultant, Tachypnea, Acidosis, lactic, Anticoagulant long-term use Prescriptions: No Action gabapentin 400 mg capsule 400 mg PO TID hydrocodone-acetaminophen 5-325 mg Tablet 1 tab PO Q6H PRN (Reason: Pain) omeprazole 40 mg Capsule,Delayed Release(Dr/Ec) 40 mg PO DAILY triamterene-hydrochlorothiazid 37.5-25 mg Capsule 1 cap PO DAILY levothyroxine [Synthroid] 88 mcg Tablet 88 mcg PO DAILY potassium chloride 20 mEq tablet,ER particles/crystals 20 meq PO .COMPLEX Rx Instructions: 20 mEq orally 2 tabs am and 1 tab pm; buprenorphine [Butrans] 20 mcg/hour Patch Weekly 1 patch TRANSDERMAL QWEEK Rx Instructions: PT DOES ON SATURDAYS cholecalciferol (vitamin D3) 125 mcg (5,000 unit) Capsule 125 mcg PO DAILY magnesium 250 mg tablet 400 mg PO DINNER Patient Comments: PT TAKES AT NIGHT PRIMAL DEFENCE 410 mg PO 1XD Rx Instructions: DIETARY SUPPLEMENT metoprolol succinate 50 mg Tablet Extended Release 24 Hr 50 mg PO QHS allopurinol 300 mg tablet 300 mg PO DAILY prednisone 10 mg tablet 10 mg PO DAILY Rx Instructions: with 1mg tab prednisone 1 mg tablet 2 mg PO DAILY Rx Instructions: with 10mg, pcp is tapering dose down ferrous gluconate 324 mg (38 mg iron) tablet 324 mg PO DAILY Humira(CF) Pen 40 mg/0.4 mL pen injector kit 40 mg subcut QWEEK Patient Comments: PT TAKES ON SATURDAYS Eliquis DVT-PE Treat 30D Start 5 mg (74 tabs) tablets,dose pack 5 mg PO Q12H albuterol sulfate 90 mcg/actuation aerosol powdr breath activated 2 inh inhalation Q4H PRN (Reason: shortness of breath or wheezing) nystatin 100,000 unit/mL suspension 2 ml PO BID Qty: 100 0RF Rx Instructions: Swish and gargle with 2 ml then spit out 2 times a day albuterol sulfate 2.5 mg /3 mL (0.083 %) solution for nebulization 2.5 mg inhalation Q4H PRN Qty: 25 0RF Rx Instructions: Use q4 hours and PRN for wheezing Primary Care Provider: Pk Donahue Referrals: Pk Donahue DO [Primary Care Provider] - Print Language: Bangladeshi Disposition Disposition: Acute Care Hospital [facility]
[2024-08-01] MEDS: Ipratropium/Albuterol Sulfate 3 ML AMPUL.NEB INHALATION (13:17)
[2024-08-01] MEDS: MethylPREDNISolone 125 MG/2 ML Vial IV (13:17)
[2024-08-01 13:23] LABS: Absolute Lymphocyte Count 0.44 X10^3/uL (0.83-4.51); Absolute Neutrophil Count 13.2 X10^3/uL (2.0-7.7); Basophil# 0.09 X10^3/uL; Basophil% 0.6 % (0-1); Eosinophil# 1.31 X10^3/uL; Eosinophils% 8.2 % (0-5); Hematocrit 43.2 % (37-47); Lymphocyte # 0.44 X10^3/ul (0.83-4.51); Lymphocyte % 2.8 % (19-41); Mean Corp Hgb Conc 32.4 g/dL (32-36); Mean Corpuscular Volume 92.5 fL (81-99); Monocyte# 0.83 X10^3/uL; Monocyte% 5.2 % (0-10); NRBC Flagged by Analyzer 0 % (0-5); Neutrophil # 13.18 X10^3/uL (2.7-7.7); Neutrophil % 82.6 % (47-70); POSITIVE DIFFERENTIAL YES; Platelet Count 290 K/mm3 (150-450); RBC Distribution Width CV 14.3 % (11.6-14.6); RBC Distribution Width SD 47.8 fl (35.1-43.9); Red Blood Count 4.67 M/mm3 (4.2-5.4)
[2024-08-01] MEDS: Albuterol 2.5 MG/3 ML VIAL.NEB. INHALATION ×5 (13:25→23:01)
[2024-08-01 13:39] LABS: ALB/GLOB Ratio 1.2 RATIO (0.9-2.4); AST(SGOT) 46 U/L (<=31); Alanine Aminotransfer ALT/SGPT 37 U/L (<=34); Albumin, Serum 3.6 g/dL (3.4-4.8); Alkaline Phosphatase 123 U/L (35-104); Anion Gap 14 (5-15); BUN 14 mg/dL (4-19); BUN/Creat Ratio 10.3 RATIO (10-20); Calcium,Total 9.7 mg/dL (7.6-11.0); Chloride 99 mmol/L (98-108); Creatinine, Serum 1.33 mg/dL (0.70-1.20); EST Glomerular Filtration Rate 44 (>60); Estimated Creatinine Clearance 43.17 ml/min (50-250); Globulin 2.9 g/dL (2.2-4.2); Glucose 147 mg/dL (70-99); Potassium 4.3 mmol/L (3.3-5.1); Protein, Total 6.5 g/dL (5.9-8.4); Sodium Level 137 mmol/L (133-145); Total Bilirubin 0.56 mg/dL (0.00-1.30)
[2024-08-01 13:53] LABS: Lactic Acid 2.7 mmol/L (0.0-2.0)
--- NOTE | 2024-08-01 13:55 | RAD_ITS ---
PROCEDURE: CHEST PA AND LATERAL 08/01/2024 REASON FOR EXAM: CHRONIC HYPOXIA, PRODUCTIVE COUGH AND FEVER TECHNIQUE: Frontal and lateral views of the chest. COMPARISON: Chest radiograph 07/08/2024. FINDINGS: Hardware: None. Heart: The heart size is normal. Mediastinum: The mediastinal contour is unremarkable. Lungs: Stable bibasilar interstitial prominence. No focal consolidation, pleural effusion or pneumothorax. Bones: Degenerative changes are identified within the thoracic spine. Stable thoracolumbar levoscoliosis. RAD/Chest PA and Lateral IMPRESSION: Stable bibasilar interstitial prominence, compatible with mild chronic intersti tial abnormality, trace edema or pneumonitis. Reading Location: [id number]
--- NOTE | 2024-08-01 15:12 | PCM.HP.STD ---
HPI - General General Date of Admission: 08/01/24 Date of Service: 08/01/24 Chief Complaint: Shortness of breath HPI Narrative SAVANNAH AGUIRRE, is a 63 F who presents with shortness of breath. This is a 3-year-old female with cellulitis and battling pneumonia as well as a recent PE. Was recently treated for MRSA pneumonia this month and was on Bactrim and was not getting better for a few days would start getting worse over the past most recent days. So she presented to the emergency room where is noted that she was septic. Chest x-ray showed chronic changes but there is concern about pneumonia given her history and she received ceftriaxone and azithromycin. The hospital service was contacted for admission. Patient did not receive 30 cc/kg of IV fluid because of concern for volume overload. Please refer to the ED physician's note for further description. [facility] Medical History MRSA (methicillin resistant staph aureus) culture positive Anticoagulant long-term use History of hypothyroidism Elevated blood-pressure reading without diagnosis of hypertension SIRS (systemic inflammatory response syndrome) Sinus tachycardia Acute on chronic hypoxic respiratory failure Acute bronchospasm Pulmonary embolus Left lower lobe pneumonia Post-menopausal Depression Anxiety Thyroid disease Anemia Gastric reflux Non-smoker Leg cramps History of pain when walking Hypothyroid CKD (chronic kidney disease) Hypertension Infection of spinal cord stimulator Rheumatoid arthritis Chronic pain Arthritis Fibromyalgia Migraines Home Medications ?Medication ?Instructions ?Recorded ?Last Taken ?Type buprenorphine 20 mcg/hour weekly 1 patch transdermal FERNANDEZ PAIN 01/13/21 07/31/24 History transdermal patch (Butrans) hydrocodone-acetaminophen 5-325mg 1 tab PO Q6H PRN Pain 01/13/21 07/08/24 History 5mg-325mg levothyroxine 88 mcg tablet 88 mcg PO DAILY 01/13/21 08/01/24 History (Synthroid) omeprazole 40 mg capsule,delayed 40 mg PO DAILY 01/13/21 08/01/24 History release potassium chloride 20 mEq 20 meq PO QPM SUPPLEMENT 01/13/21 07/31/24 History tablet,extended release(part/cryst) triamterene 37.5 1 cap PO DAILY Check with primary 01/13/21 08/01/24 History mg-hydrochlorothiazide 25 mg doctor capsule gabapentin 400 mg capsule 400 mg PO TID PAIN 05/08/21 08/01/24 History cholecalciferol (vitamin D3) 125 125 mcg PO DAILY SUPPLEMENT 06/01/22 08/01/24 History mcg (5,000 unit) capsule PRIMAL [employer]ENSE 410 mg PO 1XD probiotic 11/12/22 08/01/24 History metoprolol succinate 50 mg 50 mg PO QHS 11/13/22 07/31/24 History tablet,extended release 24 hr allopurinol 300 mg tablet 300 mg PO DAILY 06/10/24 08/01/24 History adalimumab 40 mg/0.4 mL 40 mg subcut FERNANDEZ 06/27/24 07/31/24 History subcutaneous pen kit (Humira(CF) Pen) ferrous gluconate 324 mg (38 mg 324 mg PO DAILY 06/27/24 08/01/24 History iron) tablet prednisone 10 mg tablet 10 mg PO DAILY 06/27/24 08/01/24 History albuterol sulfate 2.5 mg/3 mL 2.5 mg (3 mL) inhalation Q4H PRN 07/08/24 Unknown Rx (0.083 %) solution for nebulization #25 vials albuterol sulfate 90 mcg/actuation 2 inh inhalation Q4H PRN shortness 07/08/24 Unknown History breath activated powder inhaler of breath or wheezing nystatin 100,000 unit/mL oral 2 ml PO BID #100 mL 07/08/24 Unknown Rx suspension apixaban 5 mg tablet (Eliquis) 5 mg PO BID 08/01/24 08/01/24 History magnesium oxide 400 mg (241.3 mg 400 mg PO QPM 08/01/24 07/31/24 History magnesium) tablet potassium chloride 20 mEq 40 meq PO DAILY 08/01/24 08/01/24 History tablet,extended release(part/cryst) (Klor-Con M) Allergy/AdvReac Type Severity Reaction Status Date / Time oxycodone Allergy Rash Verified 08/01/24 12:45 adhesive tape AdvReac Rash Verified 08/01/24 12:45 Family History Mother Hypertension Colon polyps Father Lymphoma Surgical History Hx of hysterectomy History of carpal tunnel release Hx of thyroidectomy Hx of cholecystectomy Hx of tonsillectomy Social History household members: none Smoking Status: Never smoker alcohol intake: never substance use type: does not use ROS ROS Narrative Denies any sore throat.. Fever or chills. Malaise. All review of systems were negative except as mentioned above in the history of present illness and the other review of systems. Vital Signs Vital Signs Vital Signs: 08/01/24 12:44 08/01/24 12:44 08/01/24 12:47 Temperature 37.2 C 37.2 C Temperature Source Temporal Oral Pulse Rate 105 H 88 Respiratory Rate 30 H 24 H Respiratory Effort Respiratory Pattern Blood Pressure 139/77 H 133/76 H Blood Pressure Mean 97 95 Pulse Ox 89 91 100 Oxygen Delivery Method Nasal Cannula Nasal Cannula Nasal Cannula Oxygen Flow Rate (L/min) 3 3 3 08/01/24 12:53 08/01/24 13:20 08/01/24 13:47 Temperature 37.2 C Temperature Source Oral Pulse Rate 89 116 H Respiratory Rate 16 20 H Respiratory Effort Short of Breath Respiratory Pattern Normal Blood Pressure 111/61 Blood Pressure Mean 77 Pulse Ox 96 Oxygen Delivery Method Nasal Cannula Nasal Cannula Oxygen Flow Rate (L/min) 3 3 08/01/24 14:44 Temperature 37.3 C Temperature Source Pulse Rate 113 H Respiratory Rate 20 H Respiratory Effort Respiratory Pattern Blood Pressure 138/76 H Blood Pressure Mean 96 Pulse Ox 96 Oxygen Delivery Method Oxygen Flow Rate (L/min) Weight Weight: 83.5 kg Body Mass Index (BMI) 32.5 Physical Exam Narrative - Physical Exam General: Alert, Oriented x3, Cooperative. Up in bed on oxygen. No respiratory distress. No conversational dyspnea. HEENT: Atraumatic, PERRLA, EOMI, Normocephalic Oral: Moist Mucosa, No Gingival or Mucosal Lesions/ Ulcerations Neck: Supple, No JVD, Negative Carotid Bruits Lungs: Clear to auscultation, Normal air movement Cardiovascular: Regular rate, Normal S1, Normal S2, No murmurs Abdomen: Bowel Sounds Present, Soft, Non Tender, Non-Distended, No Hepato-splenomegaly Extremities: No clubbing, No cyanosis, No edema, Capillary Refill Less than 3 Seconds Skin: No rashes, No breakdown Musculoskeletal: No Tenderness to Palpation of Joints or Extremities Neurological: Moves extremities spontaneously Psych/Mental Status: Normal Affect, Appropriate Results Lab / Micro Data Attestation: I reviewed the patient's lab results. 08/01/24 12:57 08/01/24 12:57 Labs: Laboratory Results - last 24 hr 08/01/24 12:57: WBC 16.0 H, RBC 4.67, Hgb 14.0, Hct 43.2, MCV 92.5, MCH 30.0, MCHC 32.4, RDW Std Deviation 47.8 H, RDW Coeff of Hiro 14.3, Plt Count 290, MPV 10.0, Immature Gran % (Auto) 0.600, Neut % (Auto) 82.6 H, Lymph % (Auto) 2.8 L, [place] % (Auto) 5.2, Eos % (Auto) 8.2 H, Baso % (Auto) 0.6, Absolute Neuts (auto) 13.2 H, Absolute Lymphs (auto) 0.44 L, Nucleated RBC % 0, Sodium 137, Potassium 4.3, Chloride 99, Carbon Dioxide 24.0, Anion Gap 14, BUN 14, Creatinine 1.33 H, Estim Creat Clear Calc 43.17 L, Est GFR (MDRD) Non-Af 44 L, BUN/Creatinine Ratio 10.3, Glucose 147 H, Calcium 9.7, Total Bilirubin 0.56, AST 46 H, ALT 37 H, Alkaline Phosphatase 123 H, Total Protein 6.5, Albumin 3.6, Globulin 2.9, Albumin/Globulin Ratio 1.2 08/01/24 13:13: Lactic Acid 2.7 H* Micro: Microbiology 08/01/24 13:15 Mucosa - Nose SARS-CoV-2, Influenza & RSV (PCR) - Final Rhythm Strip Rhythm Strip: Sinus Tach Rate: 102 Imaging Radiology Impression Chest X-Ray 08/01/24 13:55 IMPRESSION: Stable bibasilar interstitial prominence, compatible with mild chronic interstitial abnormality, trace edema or pneumonitis. Reading Location: [facility] Assessment & Plan Assessment/Plan (1) Pneumonia: PLAN: Suspect gram-negative and/or MRSA given her recent hospitalizations and recent MRSA pneumonia Pulmonary toilet. Antibiotics with pip-tazo and vancomycin for now. Check sputum culture, strep and Legionella antigens, COVID/RSV/influenza (2) Sepsis: PLAN: Secondary to pneumonia. Present on admission SIRS criteria: 3 out of 4 with white cells of 16,000, respiration rate 24, heart rate of 116 Patient hemodynamically stable though however. There was concern about fluid overload and patient had an echocardiogram back in June but did show a trivial pericardial effusion so I concur with the ED physician that 30 cc/kg of IV fluid may lead to other problems such as heart failure. No need for pressors. PLAN: Plan Elevated creatinine: Not meeting the criteria of CE but her creatinine is 1.33 with a baseline 0.9. Will hold off on her combo diuretic pill (also her potassium replacement since those are being held) and I will give her a liter of IV fluids. Chronic conditions PE: Continue with apixaban Gout: Continue allopurinol Hypothyroidism: Continue levothyroxine Rheumatoid arthritis: Holding off on her Humira for now. Continue with her daily prednisone. If though if patient does become hypotensive then she would require eventually stress dose steroids. VTE prophylaxis: Not indicated as patient is already anticoagulated. CODE STATUS: Addressed with the patient. Patient wishes to be full code. Disposition: Anticipate stay greater than 2 midnights Charges/Coding Visit Charges Inpatient E&M: 92039 Init Hosp L3
[2024-08-01] MEDS: Ceftriaxone 2 GM in 0.9% Normal Saline (50mL MB+) 50 ML IV (15:16)
[2024-08-01 16:34] LABS: Bacteria 0 SEEN /hpf (None Seen); Mucous, Urine 0 SEEN /hpf (<or=2+)
[2024-08-01 16:42] LABS: Color, Urine Yellow (Yellow); Glucose, Dipstick Normal (Normal); Ketone-Dipstick 5 mg/dl (Negative); Leukocyte Esterase-Dipstick 25 /ul (Negative); Nitrite-Dipstick Negative (Negative); Occult Blood-Urine 10 /ul (Negative); Protein-Dipstick 15 mg/dl (Negative); Urine Bilirubin Dipstick Negative (Negative); Urine Clarity Clear (Clear); Urine Urobilinogen Normal (Normal)
[2024-08-01] MEDS: HYDROcodone Bitartrate/Apap 5/325 Tablet PO (16:49)
[2024-08-01 17:06] LABS: Red Blood Cells-Urine 0-5 SEEN /hpf (0-5); White Blood Cells 0-5 SEEN /hpf (0-5)
[2024-08-01 17:07] LABS: Hyaline Cast 0-5 SEEN /lpf (0-5); Squamous Epithelial Cells - UA 0-5 SEEN /hpf (5-10)
[2024-08-01] MEDS: Azithromycin 500 MG in 0.9% Normal Saline (250mL Bag) 250 ML 255 MG IV (17:08)
[2024-08-01] MEDS: 0.9% Normal Saline (1000mL) 1,000 ML 150 ML IV (17:08)
[2024-08-01] MEDS: 0.9% Saline Lock 10 ML Syringe IV (17:08)
[2024-08-01 17:21] LABS: Reflex Lactate? Y
[2024-08-01 17:54] LABS: Lactic Acid 2.4 mmol/L (0.0-2.0)
[2024-08-01] MEDS: NYSTATIN 500,000 UNIT/5 ML UDC 500000 UNIT PO ×2 (18:45→21:38)
[2024-08-01] MEDS: Vancomycin HCl 2,000 MG in 0.9% Normal Saline (500mL Bag) 500 ML 250 MG IV (18:48)
--- NOTE | 2024-08-01 19:33 | PCM.RX.CS ---
Consult Antibiotic Management Pharmacy has been consulted to manage selected antibiotic: Vancomycin Type of Intervention Type of Consult: New start Suspected Infection Suspected Infection: Pneumonia Labs Labs: Sodium 137 mmol/L (133-145) 08/01/24 12:57 Potassium 4.3 mmol/L (3.3-5.1) 08/01/24 12:57 Chloride 99 mmol/L (98-108) 08/01/24 12:57 Carbon Dioxide 24.0 mmol/L (21.0-32.0) 08/01/24 12:57 Anion Gap 14 (5-15) 08/01/24 12:57 BUN 14 mg/dL (4-19) 08/01/24 12:57 Creatinine 1.33 mg/dL (0.70-1.20) H 08/01/24 12:57 Est GFR (MDRD) Non-Af 44 (>60) L 08/01/24 12:57 BUN/Creatinine Ratio 10.3 RATIO (10-20) 08/01/24 12:57 Glucose 147 mg/dL (70-99) H 08/01/24 12:57 Microbiology Microbiology: Microbiology 08/01/24 16:19 Urine, Clean Catch Legionella Antigen - Final 08/01/24 16:19 Urine, Clean Catch Streptococcus pneumoniae Antigen (M - Final 08/01/24 13:15 Mucosa - Nose SARS-CoV-2, Influenza & RSV (PCR) - Final Dosing Weight Weight used for dosin.9 kg Estimated Creatinine Clearance Estimated Creatinine Clearance: 43 Goal Trough Goal Trough: 15-20 mcg/mL Pharmacy Plan for Drug Dosing Pharmacy Plan for Drug Dosing: Pharmacy Service will continue to monitor and adjust dosing as required. Follow-Up Labs Follow-Up Labs: Trough: Vancomycin Date/Time Labs Ordered Labs to be done on [date and time ordered]: 08/03/24 @1170
[2024-08-01] MEDS: Piperacil/Tazobactam 3.375 GM in 0.9% Normal Saline (50mL MB+) 50 ML IV (21:35)
[2024-08-01] MEDS: Gabapentin 400 MG Capsule PO (21:35)
[2024-08-01] MEDS: Magnesium Chloride 64 MG Delay Rel.Tablet 128 MG PO (21:38)
[2024-08-01] MEDS: APIXABAN 5 MG TABLET PO (21:39)
[2024-08-02] VITALS (14 sets, daily range): BP systolic 106–135; BP diastolic 53–65; PULSE 79–107; RESP 14–20; TEMP 36.4–36.9; O2SAT 94–99
[2024-08-02] MEDS: Piperacil/Tazobactam 3.375 GM in 0.9% Normal Saline (50mL MB+) 50 ML IV ×3 (05:01→22:13)
[2024-08-02] MEDS: Gabapentin 400 MG Capsule PO ×3 (05:01→20:28)
[2024-08-02] MEDS: Levothyroxine 88 MCG Tablet PO (05:01)
[2024-08-02] MEDS: Vancomycin IV 500 MG/100 ML BAG 100 MG IV ×2 (06:26→19:39)
[2024-08-02] MEDS: Albuterol 2.5 MG/3 ML VIAL.NEB. INHALATION ×5 (06:41→23:16)
[2024-08-02 06:50] LABS: Absolute Neutrophil Count 7.2 X10^3/uL (2.0-7.7); Basophil# 0.01 X10^3/uL; Basophil% 0.1 % (0-1); Hematocrit 36.5 % (37-47); Hemoglobin 11.9 g/dL (12.0-15.0); Lymphocyte % 3.8 % (19-41); Mean Corp Hgb Conc 32.6 g/dL (32-36); Mean Corpuscular Volume 91.9 fL (81-99); Mean Platelet Vol. 9.7 fl (6.2-12.0); Monocyte# 0.22 X10^3/uL; Monocyte% 2.8 % (0-10); NRBC Flagged by Analyzer 0 % (0-5); Neutrophil # 7.22 X10^3/uL (2.7-7.7); Neutrophil % 92.7 % (47-70); POSITIVE DIFFERENTIAL YES; Platelet Count 232 K/mm3 (150-450); RBC Distribution Width CV 14.1 % (11.6-14.6); Red Blood Count 3.97 M/mm3 (4.2-5.4); White Blood Count 7.8 K/mm3 (4.4-11.0)
[2024-08-02 07:11] LABS: Anion Gap 12 (5-15); BUN 20 mg/dL (4-19); BUN/Creat Ratio 17.1 RATIO (10-20); Calcium,Total 8.8 mg/dL (7.6-11.0); Carbon Dioxide 22.3 mmol/L (21.0-32.0); Chloride 101 mmol/L (98-108); Creatinine, Serum 1.18 mg/dL (0.70-1.20); EST Glomerular Filtration Rate 51 (>60); Estimated Creatinine Clearance 46.37 ml/min (50-250); Glucose 177 mg/dL (70-99); Potassium 4.1 mmol/L (3.3-5.1); Sodium Level 135 mmol/L (133-145)
[2024-08-02] MEDS: APIXABAN 5 MG TABLET PO ×2 (09:13→20:29)
[2024-08-02] MEDS: predniSONE 10 MG Tablet PO (09:13)
[2024-08-02] MEDS: Pantoprazole Sodium 40 MG Tablet PO (09:14)
[2024-08-02] MEDS: Allopurinol 300 MG Tablet PO (09:14)
[2024-08-02] MEDS: NYSTATIN 500,000 UNIT/5 ML UDC 500000 UNIT PO ×4 (09:14→22:15)
[2024-08-02] MEDS: Cholecalciferol (Vit D3) 125 MCG CAPSULE (5,000 UNITS) PO (09:14)
[2024-08-02] MEDS: Ferrous Gluconate 324 MG Tablet PO (11:26)
--- NOTE | 2024-08-02 11:33 | CASEMGMT ---
LAURA DENSON Assessment Face to Face with patient for initial transition planning/care coordination assessment. LAURA DENSON introduced self and role at [facility], pt voices understanding. Pt is A&Ox4 and is resting comfortably in bed and is calm. Pt's daughter at bedside. Care providers, pharmacy, and demographics verified. Admitting dx: Pneumonia LACE Strata: 3 PCP: Pk Donahue Specialists: Wilfredo (PM), [facility], [facility] Preferred Pharmacy: [facility] Insurance: [facility] D[facility], [employer]. Pt states that she has a CM but is unsure of the name. Pt states that she does not have any active services Prescription Benefit: Yes LNOK: Marry Cool (Daughter) Living Arrangements: Pt lives with her 29 y/o GS in a 2 story home with 1 step to enter ADLs/IADLs: Pt reports that she is independent Transportation: Self, family.Denies concerns DME: Home oxygen through [employer]. Verified pt's current order states 2L continuous. Pt reports that she has a concentrator, portability (has here), pulse ox, inhaler, nebulizer, FWW, shower chair, and BP Machine. HHC/SNF: Denies history or needs Pt?s goal: Home Plan: Home with pt's GS, follow for increased oxygen needs. Pt denies the need for HHC or OP therapy and reports that she feels safe returning home with her GS once she is medically ready. Pt states that her daughter will likely drive her home. Pt states that she has plenty of family support and denies further needs at this time. 6-Click score is 21, no therapy ordered. CM to follow. Claus Aguilar RN, CM
--- NOTE | 2024-08-02 14:08 | PN_ITS ---
Subjective Subjective Patient seen and examined. She was admitted with a complaint of fever and cough and is being managed for recurrent pneumonia. She had no active complaints this morning. She denied any fever, though she does cough occasionally. She denies any chest pain, palpitations, dizziness, nausea, vomiting or any other symptoms. Review of systems is otherwise negative. On 3L of oxygen by nasal canula. Objective Data Objective Data Vital Signs: Vital Signs Temp Pulse Resp BP Pulse Ox O2 Del Method O2 Flow Rate 98.4 F 86 14 106/53 L 98 Nasal Cannula 3 08/02/24 09:11 08/02/24 11:23 08/02/24 11:23 08/02/24 09:11 08/02/24 09:11 08/02/24 09:11 08/02/24 09:11 Oxygen Flow Rate (L/min) 3 Oxygen Delivery Method Nasal Cannula Weight: 167 lb 5.294 oz Body Mass Index (BMI) 29.6 Intake & Output: Intake and Output for Last 24 Hours 07/31/24 08/01/24 08/02/24 23:59 23:59 23:59 Intake Total 1845 / 2145 575 / 575 Balance 1845 / 2145 575 / 575 Lab / Micro Data 08/02/24 06:37 08/02/24 06:37 Labs: Laboratory Results - last 24 hr 08/01/24 16:19: Urine Color Yellow, Urine Clarity Clear, Urine pH 6.0, Ur Specific [place] 1.010, Urine Protein 15 H, Urine Glucose (UA) Normal, Urine Ketones 5 H, Urine Occult Blood 10 H, Urine Nitrite Negative, Urine Bilirubin Negative, Urine Urobilinogen Normal, Ur Leukocyte Esterase 25 H, Urine RBC 0-5 SEEN, Urine WBC 0-5 SEEN, Ur Squamous Epith Cells 0-5 SEEN, Urine Bacteria 0 SEEN, Hyaline Casts 0-5 SEEN, Urine Mucus 0 SEEN 08/01/24 17:20: Lactic Acid 2.4 H* 08/02/24 06:37: WBC 7.8, RBC 3.97 L, Hgb 11.9 L, Hct 36.5 L, MCV 91.9, MCH 30.0, MCHC 32.6, RDW Std Deviation 47.0 H, RDW Coeff of Hiro 14.1, Plt Count 232, MPV 9.7, Immature Gran % (Auto) 0.600, Neut % (Auto) 92.7 H, Lymph % (Auto) 3.8 L, [place] % (Auto) 2.8, Eos % (Auto) 0.0, Baso % (Auto) 0.1, Absolute Neuts (auto) 7.2, Absolute Lymphs (auto) 0.30 L, Nucleated RBC % 0, Sodium 135, Potassium 4.1, Chloride 101, Carbon Dioxide 22.3, Anion Gap 12, BUN 20 H, Creatinine 1.18, Estim Creat Clear Calc 46.37 L, Est GFR (MDRD) Non-Af 51 L, BUN/Creatinine Ratio 17.1, Glucose 177 H, Calcium 8.8 Micro: Microbiology 08/01/24 16:19 Urine, Clean Catch Legionella Antigen - Final 08/01/24 16:19 Urine, Clean Catch Streptococcus pneumoniae Antigen (M - Final 08/01/24 13:15 Mucosa - Nose SARS-CoV-2, Influenza & RSV (PCR) - Final Radiography Diagnostic Testing: Radiology Impression Chest X-Ray 08/01/24 13:55 IMPRESSION: Stable bibasilar interstitial prominence, compatible with mild chronic interstitial abnormality, trace edema or pneumonitis. Reading Location: [facility] Rhythm Strip Rhythm Strip: Sinus Tach Rate: 102 Physical Exam Const alert, oriented x3, no apparent distress and well nourished General Appearance: cooperative and well developed HEENT normocephalic, head/scalp atraumatic, moist oral mucous membranes, oropharynx normal and gingiva normal Neck no lymphadenopathy, supple and no JVD Lymph Lymphatic: no lymphadenopathy noted and no lymphedema noted Resp Resp Narrative: mildly diminished breath sounds bibasally, no wheezes or crackles. on 3L of oxygen. Cardio regular rate, regular rhythm, S1 normal heart sound, S2 normal heart sound and no murmurs GI normal to inspection, nondistended, normoactive bowel sounds, soft to palpation, non-tender and non-distended Extremity normal capillary refill, no clubbing, cyanosis or edema and no calf tenderness General Extremity: no tenderness to palpation of joints or extremities Skin General Skin Exam: no breakdown Neuro CN's II-XII intact bilaterally, no focal motor deficits and no sensory deficits noted Motor Exam: strength 5/5 throughout and general weakness Psych thought process normal, cooperative and affect normal Appearance: appropriate Assessment & Plan Assessment/Plan (1) Pneumonia: PLAN: Plan #Sepsis due to recurent pneumonia * Has been treated several times in recent months and recent pneumonia. His shortness of breath however persisted so she came back to the hospital. * Currently on IV vancomycin and Zosyn. She is on 3 L of oxygen which is stable at her baseline at home. * breathing treatment with bronchodilators. * Titrate oxygen to maintain sats >90% * pulmonology consulted in light of her recurrent pneumonia * #History of pulmonary embolism: on eliquis #History of gout: on allopurinol #Rheumatoid arthritis: humira held. On prednisone. DVT prophylaxis; already on eliquis. Charges/Coding Visit Charges Inpatient E&M: 36040 Subs Hosp L2
[2024-08-02] MEDS: 0.9% Saline Lock 10 ML Syringe IV (14:12)
[2024-08-02] MEDS: Ibuprofen 200 MG Tablet PO (19:39)
[2024-08-02] MEDS: Magnesium Chloride 64 MG Delay Rel.Tablet 128 MG PO (20:28)
[2024-08-02] MEDS: Metoprolol(XL)Succ 50 MG Tablet PO (20:28)
[2024-08-03] VITALS (10 sets, daily range): BP systolic 108–140; BP diastolic 56–66; PULSE 66–94; RESP 16–18; TEMP 36.3–37; O2SAT 93–99
[2024-08-03] MEDS: Albuterol 2.5 MG/3 ML VIAL.NEB. INHALATION ×4 (03:42→19:43)
[2024-08-03] MEDS: Gabapentin 400 MG Capsule PO ×3 (05:30→20:49)
[2024-08-03] MEDS: Piperacil/Tazobactam 3.375 GM in 0.9% Normal Saline (50mL MB+) 50 ML IV ×2 (05:30→13:46)
[2024-08-03] MEDS: Levothyroxine 88 MCG Tablet PO (05:30)
[2024-08-03] MEDS: Allopurinol 300 MG Tablet PO (08:14)
[2024-08-03] MEDS: Pantoprazole Sodium 40 MG Tablet PO (08:14)
[2024-08-03] MEDS: APIXABAN 5 MG TABLET PO ×2 (08:14)
[2024-08-03] MEDS: Cholecalciferol (Vit D3) 125 MCG CAPSULE (5,000 UNITS) PO (08:14)
[2024-08-03] MEDS: NYSTATIN 500,000 UNIT/5 ML UDC 500000 UNIT PO ×4 (08:14→20:49)
[2024-08-03] MEDS: predniSONE 10 MG Tablet PO (08:14)
[2024-08-03 08:28] LABS: Vancomycin, Trough Level 16.9 ug/mL (5.0-15.0)
--- NOTE | 2024-08-03 08:45 | PCM.RX.CS ---
Consult Antibiotic Management Pharmacy has been consulted to manage selected antibiotic: Vancomycin Type of Intervention Type of Consult: Follow-up Suspected Infection Suspected Infection: Pneumonia Prior Doses of Antibiotics Prior Doses of Antibiotics Received/Current Regimen: 08/01/24 @ 1848 Vancomycin 2000mg loading dose 08/02/24 @ 0626 Vancomycin 500mg 08/02/24 @ 1939 Vancomycin 500mg Labs Labs: Sodium 135 mmol/L (133-145) 08/02/24 06:37 Potassium 4.1 mmol/L (3.3-5.1) 08/02/24 06:37 Chloride 101 mmol/L (98-108) 08/02/24 06:37 Carbon Dioxide 22.3 mmol/L (21.0-32.0) 08/02/24 06:37 Anion Gap 12 (5-15) 08/02/24 06:37 BUN 20 mg/dL (4-19) H 08/02/24 06:37 Creatinine 1.18 mg/dL (0.70-1.20) 08/02/24 06:37 Est GFR (MDRD) Non-Af 51 (>60) L 08/02/24 06:37 BUN/Creatinine Ratio 17.1 RATIO (10-20) 08/02/24 06:37 Glucose 177 mg/dL (70-99) H 08/02/24 06:37 Vancomycin Trough 16.9 ug/mL (5.0-15.0) H 08/03/24 06:40 Microbiology Microbiology: Microbiology 08/01/24 16:19 Urine, Clean Catch Legionella Antigen - Final 08/01/24 16:19 Urine, Clean Catch Streptococcus pneumoniae Antigen (M - Final 08/01/24 13:15 Mucosa - Nose SARS-CoV-2, Influenza & RSV (PCR) - Final Dosing Weight Weight used for dosin kg Goal Trough Goal Trough: 15-20 mcg/mL Pharmacy Plan for Drug Dosing Pharmacy Plan for Drug Dosing: Continue Vancomycin 500mg every 12 hours Pharmacy Service will continue to monitor and adjust dosing as required. Follow-Up Labs Follow-Up Labs: Trough: Vancomycin Date/Time Labs Ordered Labs to be done on [date and time ordered]: 08/04/24 @ 9210
[2024-08-03 09:38] LABS: Absolute Lymphocyte Count 1.48 X10^3/uL (0.83-4.51); Absolute Neutrophil Count 8.2 X10^3/uL (2.0-7.7); Basophil# 0.01 X10^3/uL; Basophil% 0.1 % (0-1); Eosinophil# 0.56 X10^3/uL; Eosinophils% 4.9 % (0-5); Hematocrit 36.5 % (37-47); Hemoglobin 11.9 g/dL (12.0-15.0); Lymphocyte # 1.48 X10^3/ul (0.83-4.51); Mean Corp Hgb Conc 32.6 g/dL (32-36); Mean Corpuscular Hgb 30.4 pg (27.0-32.0); Mean Corpuscular Volume 93.1 fL (81-99); Mean Platelet Vol. 9.9 fl (6.2-12.0); Monocyte# 1.06 X10^3/uL; Monocyte% 9.3 % (0-10); NRBC Flagged by Analyzer 0 % (0-5); Neutrophil % 72.3 % (47-70); Platelet Count 252 K/mm3 (150-450); RBC Distribution Width CV 14.5 % (11.6-14.6); RBC Distribution Width SD 49.4 fl (35.1-43.9); Red Blood Count 3.92 M/mm3 (4.2-5.4); White Blood Count 11.4 K/mm3 (4.4-11.0)
[2024-08-03] MEDS: 0.9% Saline Lock 10 ML Syringe IV (09:43)
[2024-08-03] MEDS: Vancomycin IV 500 MG/100 ML BAG 100 MG IV (09:43)
[2024-08-03 10:13] LABS: Anion Gap 12 (5-15); BUN 16 mg/dL (4-19); Calcium,Total 9.3 mg/dL (7.6-11.0); Carbon Dioxide 23.7 mmol/L (21.0-32.0); Chloride 103 mmol/L (98-108); Creatinine, Serum 1.11 mg/dL (0.70-1.20); EST Glomerular Filtration Rate 55 (>60); Glucose 109 mg/dL (70-99); Potassium 3.4 mmol/L (3.3-5.1); Sodium Level 138 mmol/L (133-145)
[2024-08-03] MEDS: Ferrous Gluconate 324 MG Tablet PO (11:12)
--- NOTE | 2024-08-03 12:39 | EX.PCM.CONCC ---
Assessment & Plan Assessment/Plan (1) Pneumonia: (2) SOB (shortness of breath): PLAN: Plan RECOMMENDATIONS: 1. Supplemental oxygen to maintain saturations at or above 90%. 2. Given low suspicion for recurrent pneumonia, I am okay with discontinuing antimicrobials. 3. Continue Eliquis per home regimen. 4. Complete outpatient pulmonary workup that was ordered 2 weeks ago. (Pulmonary function studies, 6-minute walk test and PSG) 5. Follow-up in the pulmonary medicine clinic as scheduled. IMPRESSIONS: 1. Pneumonia The patient was initially readmitted to the hospital under the pretenses that she had recurrent pneumonia. However, on my review of the patient's chest imaging, there does not appear to be any evidence of a focal infiltrate or consolidation to suggest recurrent pneumonia. She just recently completed a 10-day course of antimicrobials to address the MRSA from her sputum culture, isolated on July 20. She was already evaluated in the pulmonary medicine clinic in mid July for shortness of breath and hypoxemia, with outpatient pulmonary workup already ordered, including pulmonary function studies, 6-minute walk test and diagnostic polysomnogram. I recommend that the patient complete her outpatient testing as scheduled. I have no additional new recommendations at this time. The patient should follow-up in the pulmonary medicine clinic after completing her testing. 2. Chronic hypoxemic respiratory failure The patient has been utilizing 2 to 3 L/min of supplemental oxygen since her recent discharge from the hospital in June secondary to bilateral pulmonary emboli. 3. History of pulmonary embolism Continue Eliquis as ordered. 4. Suspected sleep apnea Complete outpatient polysomnogram for workup, as ordered. 5. History of rheumatoid arthritis/gout Complicates care, management, recovery and prognosis. Continue supportive care as noted above. This note was generated with [employer] dictation software. It may contain incorrect words, spelling, and punctuation that were not noted in checking the note before signing. HPI Consult Data Date of Consult: 08/03/24 HPI Narrative Reason for Consultation: Pneumonia HPI Narrative: The patient is a 63-year-old female, with a history as outlined below, who presented to the emergency department on August 01 with increasing shortness of breath and fever. I just saw the patient in the pulmonary medicine office 2 weeks ago after she was referred to me for the evaluation of a pulmonary embolism, shortness of breath and hypoxemia. The patient has been maintained on Eliquis, given the unprovoked nature of her pulmonary embolism. She was utilizing supplemental oxygen at 2 to 3 L/min. The patient was ordered to undergo a 6-minute walk test, pulmonary function studies and a sleep apnea workup of her concerns for JEANA. The patient is yet to complete her pulmonary workup that was previously ordered. It should be noted that the patient had a positive sputum culture on July 20 for MRSA, which was apparently treated by her PCP with a 10-day course of antimicrobials. While the patient did feel quite well on the antibiotics, she indicated that she began to feel fatigued and chilled once again after completing the antibiotics. On presentation to the emergency department, the patient was documented to be afebrile and hemodynamically stable. She was saturating 100% on 3 L/min via nasal cannula. White blood cell count was initially noted to be 16,000. However, the patient has elevated white blood cell counts in June and July 2024, given that she is on chronic prednisone therapy. Lactate was elevated at 2.7. Chest imaging demonstrated no focal consolidation or infiltrate. Strep and urine Legionella antigens were negative. Blood cultures have not demonstrated any growth to date. COVID, influenza and RSV PCR's were negative. The patient was subsequently placed on antimicrobials and admitted to the hospital for further management. [facility] Medical History MRSA (methicillin resistant staph aureus) culture positive Anticoagulant long-term use History of hypothyroidism Elevated blood-pressure reading without diagnosis of hypertension SIRS (systemic inflammatory response syndrome) Sinus tachycardia Acute on chronic hypoxic respiratory failure Acute bronchospasm Pulmonary embolus Left lower lobe pneumonia Post-menopausal Depression Anxiety Thyroid disease Anemia Gastric reflux Non-smoker Leg cramps History of pain when walking Hypothyroid CKD (chronic kidney disease) Hypertension Infection of spinal cord stimulator Rheumatoid arthritis Chronic pain Arthritis Fibromyalgia Migraines Home Medications ?Medication ?Instructions ?Recorded ?Last Taken ?Type buprenorphine 20 mcg/hour weekly 1 patch transdermal FERNANDEZ PAIN 01/13/21 07/31/24 History transdermal patch (Butrans) hydrocodone-acetaminophen 5-325mg 1 tab PO Q6H PRN Pain 01/13/21 07/08/24 History 5mg-325mg levothyroxine 88 mcg tablet 88 mcg PO DAILY 01/13/21 08/01/24 History (Synthroid) omeprazole 40 mg capsule,delayed 40 mg PO DAILY 01/13/21 08/01/24 History release potassium chloride 20 mEq 20 meq PO QPM SUPPLEMENT 01/13/21 07/31/24 History tablet,extended release(part/cryst) triamterene 37.5 1 cap PO DAILY Check with primary 01/13/21 08/01/24 History mg-hydrochlorothiazide 25 mg doctor capsule gabapentin 400 mg capsule 400 mg PO TID PAIN 05/08/21 08/01/24 History cholecalciferol (vitamin D3) 125 125 mcg PO DAILY SUPPLEMENT 06/01/22 08/01/24 History mcg (5,000 unit) capsule PRIMAL [employer]ENSE 410 mg PO 1XD probiotic 11/12/22 08/01/24 History metoprolol succinate 50 mg 50 mg PO QHS 11/13/22 07/31/24 History tablet,extended release 24 hr allopurinol 300 mg tablet 300 mg PO DAILY 06/10/24 08/01/24 History adalimumab 40 mg/0.4 mL 40 mg subcut FERNANDEZ 06/27/24 07/31/24 History subcutaneous pen kit (Humira(CF) Pen) ferrous gluconate 324 mg (38 mg 324 mg PO DAILY 06/27/24 08/01/24 History iron) tablet prednisone 10 mg tablet 10 mg PO DAILY 06/27/24 08/01/24 History albuterol sulfate 2.5 mg/3 mL 2.5 mg (3 mL) inhalation Q4H PRN 07/08/24 Unknown Rx (0.083 %) solution for nebulization #25 vials albuterol sulfate 90 mcg/actuation 2 inh inhalation Q4H PRN shortness 07/08/24 Unknown History breath activated powder inhaler of breath or wheezing nystatin 100,000 unit/mL oral 2 ml PO BID #100 mL 07/08/24 Unknown Rx suspension apixaban 5 mg tablet (Eliquis) 5 mg PO BID 08/01/24 08/01/24 History magnesium oxide 400 mg (241.3 mg 400 mg PO QPM 08/01/24 07/31/24 History magnesium) tablet potassium chloride 20 mEq 40 meq PO DAILY 08/01/24 08/01/24 History tablet,extended release(part/cryst) (Klor-Con M) Allergy/AdvReac Type Severity Reaction Status Date / Time oxycodone Allergy Rash Verified 08/01/24 12:45 adhesive tape AdvReac Rash Verified 08/01/24 12:45 Family History Mother Hypertension Colon polyps Father Lymphoma Surgical History Hx of hysterectomy History of carpal tunnel release Hx of thyroidectomy Hx of cholecystectomy Hx of tonsillectomy Social History household members: none Smoking Status: Never smoker alcohol intake: never substance use type: does not use ROS ROS Narrative 10 systems were reviewed with pertinent positives as noted in the HPI above. Physical Exam Const alert, oriented x3 and no apparent distress Constitutional Narrative: Resting comfortably in bed. General Appearance: cooperative HEENT normocephalic, head/scalp atraumatic and moist oral mucous membranes Eyes PERRL, EOMs intact bilaterally and conjunctivae normal Neck supple General: trachea midline Chest inspection of chest normal Resp normal respiratory effort Auscultation: Negative for rales, rhonchi or wheezes Cardio regular rate and regular rhythm GI normal to inspection, nondistended, normoactive bowel sounds Extremity no clubbing, cyanosis or edema Skin no rashes or lesions noted Neuro CN's II-XII intact bilaterally, moves all extremities and no focal motor deficits Psych cooperative and affect normal Lab / Micro Data 08/03/24 09:27 08/03/24 09:27 Labs: Laboratory Results - last 24 hr 08/03/24 06:40: Vancomycin Trough 16.9 H 08/03/24 09:27: WBC 11.4 H, RBC 3.92 L, Hgb 11.9 L, Hct 36.5 L, MCV 93.1, MCH 30.4, MCHC 32.6, RDW Std Deviation 49.4 H, RDW Coeff of Hiro 14.5, Plt Count 252, MPV 9.9, Immature Gran % (Auto) 0.400, Neut % (Auto) 72.3 H, Lymph % (Auto) 13.0 L, Gage % (Auto) 9.3, Eos % (Auto) 4.9, Baso % (Auto) 0.1, Absolute Neuts (auto) 8.2 H, Absolute Lymphs (auto) 1.48, Nucleated RBC % 0, Sodium 138, Potassium 3.4, Chloride 103, Carbon Dioxide 23.7, Anion Gap 12, BUN 16, Creatinine 1.11, Estim Creat Clear Calc 49.30 L, Est GFR (MDRD) Non-Af 55 L, BUN/Creatinine Ratio 14.0, Glucose 109 H, Calcium 9.3 Micro: Microbiology 08/01/24 16:19 Urine, Clean Catch Urine Culture - Final Coag Negative Staph 08/01/24 16:19 Urine, Clean Catch Legionella Antigen - Final 08/01/24 16:19 Urine, Clean Catch Streptococcus pneumoniae Antigen (M - Final Rhythm Strip Rhythm Strip: Sinus Tach Rate: 102 Charges/Coding Visit Charges Inpatient E&M: 33169 Init Hosp L3
--- NOTE | 2024-08-03 16:02 | PN_ITS ---
Subjective Subjective Patient seen and examined. She had no active complaints. She is on her baseline 3 L of oxygen. She had an uneventful night. Previous symptoms otherwise negative. She has remained hemodynamically stable. Objective Data Objective Data Vital Signs: Vital Signs Temp Pulse Resp BP Pulse Ox O2 Del Method O2 Flow Rate 98.6 F 76 17 121/60 H 96 Nasal Cannula 3 08/03/24 14:23 08/03/24 14:23 08/03/24 14:23 08/03/24 14:23 08/03/24 14:23 08/03/24 14:23 08/03/24 14:23 Oxygen Flow Rate (L/min) 3 Oxygen Delivery Method Nasal Cannula Weight: 167 lb 5.294 oz Body Mass Index (BMI) 29.6 Intake & Output: Intake and Output for Last 24 Hours 08/01/24 08/02/24 08/03/24 23:59 23:59 23:59 Intake Total 1845 / 2145 625 / 975 900 / 900 Balance 1845 / 2145 625 / 975 900 / 900 Lab / Micro Data 08/03/24 09:27 08/03/24 09:27 Labs: Laboratory Results - last 24 hr 08/03/24 06:40: Vancomycin Trough 16.9 H 08/03/24 09:27: WBC 11.4 H, RBC 3.92 L, Hgb 11.9 L, Hct 36.5 L, MCV 93.1, MCH 30.4, MCHC 32.6, RDW Std Deviation 49.4 H, RDW Coeff of Hiro 14.5, Plt Count 252, MPV 9.9, Immature Gran % (Auto) 0.400, Neut % (Auto) 72.3 H, Lymph % (Auto) 13.0 L, [place] % (Auto) 9.3, Eos % (Auto) 4.9, Baso % (Auto) 0.1, Absolute Neuts (auto) 8.2 H, Absolute Lymphs (auto) 1.48, Nucleated RBC % 0, Sodium 138, Potassium 3.4, Chloride 103, Carbon Dioxide 23.7, Anion Gap 12, BUN 16, Creatinine 1.11, E stim Creat Clear Calc 49.30 L, Est GFR (MDRD) Non-Af 55 L, BUN/Creatinine Ratio 14.0, Glucose 109 H, Calcium 9.3 Micro: Microbiology 08/01/24 16:19 Urine, Clean Catch Urine Culture - Final Coag Negative Staph 08/01/24 16:19 Urine, Clean Catch Legionella Antigen - Final 08/01/24 16:19 Urine, Clean Catch Streptococcus pneumoniae Antigen (M - Final 08/01/24 13:15 Mucosa - Nose SARS-CoV-2, Influenza & RSV (PCR) - Final Rhythm Strip Rhythm Strip: Sinus Tach Rate: 102 Physical Exam Const alert, oriented x3, no apparent distress and well nourished General Appearance: cooperative and well developed HEENT normocephalic, head/scalp atraumatic and moist oral mucous membranes Eyes PERRL and EOMs intact bilaterally Neck no lymphadenopathy, supple and no JVD Lymph Lymphatic: no lymphadenopathy noted and no lymphedema noted Resp Resp Narrative: mildly diminished breath sounds bibasally, no wheezes or crackles. on 3L of oxygen which is her baseline Cardio regular rate, regular rhythm, S1 normal heart sound, S2 normal heart sound and no murmurs GI normal to inspection, nondistended, normoactive bowel sounds, soft to palpation, non-tender and non-distended Extremity normal capillary refill, no clubbing, cyanosis or edema and no calf tenderness General Extremity: no tenderness to palpation of joints or extremities Skin General Skin Exam: no breakdown Neuro CN's II-XII intact bilaterally, no focal motor deficits and no sensory deficits noted Motor Exam: strength 5/5 throughout and general weakness Psych thought process normal, cooperative and affect normal Appearance: appropriate Assessment & Plan Assessment/Plan (1) Pneumonia: PLAN: Plan #Sepsis due to recurent pneumonia * Has been treated several times in recent months and recent pneumonia. His shortness of breath however persisted so she came back to the hospital. * Currently on IV vancomycin and Zosyn. She is on 3 L of oxygen which is stable at her baseline at home. * breathing treatment with bronchodilators. * Titrate oxygen to maintain sats >90% * pulmonology consulted in light of her recurrent pneumonia. Pulmonology reviewed and recommended discontinuing her oral antibiotics as there is no clear evidence of pneumonia. * #History of pulmonary embolism: on eliquis #History of gout: on allopurinol #Rheumatoid arthritis: humira held. On prednisone. DVT prophylaxis; already on eliquis. Disposition: * Follow-up with pulmonology on outpatient basis. * Patient was to stay 1 more night today as her daughter is not available to pick her up today. For DC tomorrow. Charges/Coding Visit Charges Inpatient E&M: 83683 Subs Hosp L2
[2024-08-03] MEDS: Magnesium Chloride 64 MG Delay Rel.Tablet 128 MG PO (20:48)
[2024-08-03] MEDS: Metoprolol(XL)Succ 50 MG Tablet PO (20:49)
[2024-08-04] VITALS (7 sets, daily range): BP systolic 103–120; BP diastolic 62–63; PULSE 64–68; RESP 14–18; TEMP 36.6–37.2; O2SAT 98–100
[2024-08-04] MEDS: Albuterol 2.5 MG/3 ML VIAL.NEB. INHALATION ×3 (03:08→10:59)
[2024-08-04] MEDS: Gabapentin 400 MG Capsule PO (05:48)
[2024-08-04] MEDS: Levothyroxine 88 MCG Tablet PO (05:48)
[2024-08-04 05:54] LABS: Absolute Lymphocyte Count 1.86 X10^3/uL (0.83-4.51); Absolute Neutrophil Count 3.8 X10^3/uL (2.0-7.7); Basophil# 0.01 X10^3/uL; Basophil% 0.1 % (0-1); Eosinophil# 0.68 X10^3/uL; Eosinophils% 9.2 % (0-5); Hematocrit 35.4 % (37-47); Hemoglobin 11.2 g/dL (12.0-15.0); Lymphocyte # 1.86 X10^3/ul (0.83-4.51); Lymphocyte % 25.3 % (19-41); Mean Corp Hgb Conc 31.6 g/dL (32-36); Mean Corpuscular Hgb 29.8 pg (27.0-32.0); Mean Corpuscular Volume 94.1 fL (81-99); Mean Platelet Vol. 9.8 fl (6.2-12.0); Monocyte# 0.98 X10^3/uL; Monocyte% 13.3 % (0-10); NRBC Flagged by Analyzer 0 % (0-5); Neutrophil % 51.7 % (47-70); Platelet Count 239 K/mm3 (150-450); RBC Distribution Width CV 14.6 % (11.6-14.6); Red Blood Count 3.76 M/mm3 (4.2-5.4); White Blood Count 7.4 K/mm3 (4.4-11.0)
[2024-08-04 06:23] LABS: Anion Gap 10 (5-15); BUN 16 mg/dL (4-19); BUN/Creat Ratio 17.9 RATIO (10-20); Calcium,Total 9.5 mg/dL (7.6-11.0); Carbon Dioxide 27.2 mmol/L (21.0-32.0); Chloride 105 mmol/L (98-108); Creatinine, Serum 0.92 mg/dL (0.70-1.20); EST Glomerular Filtration Rate 70 (>60); Estimated Creatinine Clearance 59.48 ml/min (50-250); Glucose 85 mg/dL (70-99); Potassium 3.8 mmol/L (3.3-5.1); Sodium Level 142 mmol/L (133-145)
[2024-08-04] MEDS: predniSONE 10 MG Tablet PO (08:08)
[2024-08-04] MEDS: APIXABAN 5 MG TABLET PO (08:08)
[2024-08-04] MEDS: Allopurinol 300 MG Tablet PO (08:08)
[2024-08-04] MEDS: Cholecalciferol (Vit D3) 125 MCG CAPSULE (5,000 UNITS) PO (08:08)
[2024-08-04] MEDS: Pantoprazole Sodium 40 MG Tablet PO (08:08)
[2024-08-04] MEDS: NYSTATIN 500,000 UNIT/5 ML UDC 500000 UNIT PO (08:09)
[2024-08-04] MEDS: Ferrous Gluconate 324 MG Tablet PO (11:18)
--- NOTE | 2024-08-04 11:36 | DS.PCM_ITS ---
Providers Date of Admission: 08/01/24 Date of Discharge: 08/10/24 Primary Care Physician: Dr. Pk Donahue, DO Consultations 08/02/24 13:37 Consult: Ore Feeder / Pulmonary Medicine Routine Consulting Provider: Intensivists/Pulmonary Med Reason for Consult: recurrent pneumonia EMERGENT Consult: No MD Notified: Yes Date Notified: 08/02/24 Time Notified: 13:37 Method of Notification: Text Reason For Visit: PNEUMONIA Diagnosis Discharge Diagnosis (1) Pneumonia: Status: Acute Code(s): J18.9 - Pneumonia, unspecified organism Plan #Sepsis due to recurent pneumonia * Has been treated several times in recent months and recent pneumonia. His shortness of breath however persisted so she came back to the hospital. * Currently on IV vancomycin and Zosyn. She is on 3 L of oxygen which is stable at her baseline at home. * breathing treatment with bronchodilators. * Titrate oxygen to maintain sats >90% * pulmonology consulted in light of her recurrent pneumonia. Pulmonology reviewed and recommended discontinuing her oral antibiotics as there is no clear evidence of pneumonia. * #History of pulmonary embolism: on eliquis #History of gout: on allopurinol #Rheumatoid arthritis: humira held. On prednisone. DVT prophylaxis; already on eliquis. Disposition: * Follow-up with pulmonology on outpatient basis. * Patient was to stay 1 more night today as her daughter is not available to pick her up today. For DC tomorrow. Medications at Discharge Home Medications buprenorphine 20 mcg/hour weekly transdermal patch (Butrans) 1 patch transdermal FERNANDEZ PAIN 01/13/21 hydrocodone-acetaminophen 5-325mg 5mg-325mg 1 tab PO Q6H PRN Pain 01/13/21 levothyroxine 88 mcg tablet (Synthroid) 88 mcg PO DAILY thyroid 01/13/21 omeprazole 40 mg capsule,delayed release 40 mg PO DAILY reflux 01/13/21 potassium chloride 20 mEq tablet,extended release(part/cryst) 20 meq PO QPM SUPPLEMENT 01/13/21 triamterene 37.5 mg-hydrochlorothiazide 25 mg capsule 1 cap PO DAILY blood pressure 01/13/21 gabapentin 400 mg capsule 400 mg PO TID PAIN 05/08/21 cholecalciferol (vitamin D3) 125 mcg (5,000 unit) capsule 125 mcg PO DAILY SUPPLEMENT 06/01/22 PRIMAL DEFENSE 410 mg PO 1XD probiotic 11/12/22 metoprolol succinate 50 mg tablet,extended release 24 hr 50 mg PO QHS blood pressure 11/13/22 allopurinol 300 mg tablet 300 mg PO DAILY gout 06/10/24 adalimumab 40 mg/0.4 mL subcutaneous pen kit (Humira(CF) Pen) 40 mg subcut FERNANDEZ prevent infection 06/27/24 ferrous gluconate 324 mg (38 mg iron) tablet 324 mg PO DAILY supplement 06/27/24 prednisone 10 mg tablet 10 mg PO DAILY inflammation 06/27/24 albuterol sulfate 2.5 mg/3 mL (0.083 %) solution for nebulization 2.5 mg (3 mL) inhalation Q4H PRN wheezing #25 vials 07/08/24 albuterol sulfate 90 mcg/actuation breath activated powder inhaler 2 inh inhalation Q4H PRN shortness of breath or wheezing 07/08/24 nystatin 100,000 unit/mL oral suspension 2 ml PO BID mouth sores #100 mL 07/08/24 apixaban 5 mg tablet (Eliquis) 5 mg PO BID blood thinner 08/01/24 magnesium oxide 400 mg (241.3 mg magnesium) tablet 400 mg PO QPM supplement 08/01/24 potassium chloride 20 mEq tablet,extended release(part/cryst) (Klor-Con M) 40 meq PO DAILY supplement 08/01/24 Hospital Course Operations None Procedures None Summary of Care Provided Minutes Spent on Discharge: 47 Hospital Course: Patient is a 63-year-old female with past medical history as outlined was admitted with a complaint of shortness of breath. She had had recurrent pneumonia and recent PE. She had recently been treated for MRSA pneumonia earlier in the month and had been placed on Bactrim. She had also followed up with pulmonology on outpatient basis and a battery of labs were ordered and which were pending and she was due to follow-up with pulmonology about them. She completed a course of Bactrim but said her symptoms were not improving and started getting short of breath again so she came back to the ED. Chest x-ray showed chronic changes but she was having a low-grade fever and also had a cough productive of greenish sputum. Due to concerns for sepsis due to pneumonia she was admitted to be managed for this. She was started on IV antibiotics for GERD. She remained on her baseline 3 L of oxygen throughout admission. Pulmonology was consulted and recommended that patient's antibiotic should be discontinued as her findings were chronic. She was follow-up on outpatient basis with pulmonology to review the labs that have been ordered. She remained on her baseline 3 L of oxygen throughout admission. She was discharged home on 08/04/2024. She is follow-up with her primary care doctor and follow-up with pulmonology within 1 to 2 weeks. Patient seen and examined prior to discharge. She had no active complaints. Review of systems otherwise negative. Labs and vitals reviewed. Home medication reviewed and reconciled. Physical Exam Const alert, oriented x3, no apparent distress and well nourished General Appearance: cooperative, comfortable, well kempt and well developed Orientation / Consciousness: awake Exam Limitations: no limitations HEENT normocephalic, head/scalp atraumatic, hearing grossly normal bilaterally, moist oral mucous membranes, oropharynx normal and gingiva normal Mouth: oral and palatal mucosa normal Eyes EOMs intact bilaterally and conjunctivae normal Neck supple and no JVD Lymph Lymphatic: no lymphadenopathy noted and no lymphedema noted Resp Resp Narrative: mildly diminished breath sounds bibasally, no wheezes or crackles. on 3L of oxygen which is her baseline Cardio regular rate, regular rhythm, S1 normal heart sound, S2 normal heart sound and no murmurs GI normal to inspection, nondistended, normoactive bowel sounds, soft to palpation, non-tender and non-distended Extremity normal to inspection, full ROM, no clubbing, cyanosis or edema and no calf tenderness General Extremity: no tenderness to palpation of joints or extremities Skin no rashes or lesions noted General Skin Exam: no breakdown Neuro CN's II-XII intact bilaterally, moves all extremities and no focal motor deficits Sensorium / Orientation: awake and oriented to person Motor Exam: strength 5/5 throughout Psych thought process normal, cooperative and affect normal Appearance: appropriate Weight / BMI Weight Weight: 167 lb 5.294 oz Body Mass Index (BMI) 29.6 ABG / Lab / Microbiology Data 08/04/24 05:27 08/04/24 05:27 Laboratory: Laboratory Results - last 24 hr 08/04/24 05:27: WBC 7.4, RBC 3.76 L, Hgb 11.2 L, Hct 35.4 L, MCV 94.1, MCH 29.8, MCHC 31.6 L, RDW Std Deviation 50.0 H, RDW Coeff of Hiro 14.6, Plt Count 239, MPV 9.8, Immature Gran % (Auto) 0.400, Neut % (Auto) 51.7, Lymph % (Auto) 25.3, [place] % (Auto) 13.3 H, Eos % (Auto) 9.2 H, Baso % (Auto) 0.1, Absolute Neuts (auto) 3.8, Absolute Lymphs (auto) 1.86, Nucleated RBC % 0, Sodium 142, Potassium 3.8, Chloride 105, Carbon Dioxide 27.2, Anion Gap 10, BUN 16, Creatinine 0.92, Estim Creat Clear Calc 59.48, Est GFR (MDRD) Non-Af 70, BUN/Creatinine Ratio 17.9, Glucose 85, Calcium 9.5 Microbiology: Microbiology 08/03/24 13:40 Sputum, Expectorated/Coughed Gram Stain - Final 08/03/24 13:40 Sputum, Expectorated/Coughed Respiratory Culture - Preliminary Staphylococcus aureus Presumptive C albicans 08/01/24 14:40 Blood Culture (Wb) - Anticubital Left Blood Culture - Preliminary No growth in 48 hours. 08/01/24 14:40 Blood Culture (Wb) - Anticubital Right Blood Culture - Preliminary No growth in 48 hours. 08/01/24 16:19 Urine, Clean Catch Urine Culture - Final Coag Negative Staph 08/01/24 16:19 Urine, Clean Catch Legionella Antigen - Final 08/01/24 16:19 Urine, Clean Catch Streptococcus pneumoniae Antigen (M - Final 08/01/24 13:15 Mucosa - Nose SARS-CoV-2, Influenza & RSV (PCR) - Final D/C Instructions Discharge Diet: Low fat / Low cholesterol Discharge Activity: Return to Normal Activity Weight Bearing Status: Weight bearing as tolerated Call your doctor if you observe: Fever of 101 or Higher, Shortness of breath, Dizziness, Swelling in the ankles and Chest pain DC O2, CPAP, BIPAP Needs Home O2 Discharge instructions: Yes Type of respiratory needs?: Oxygen Oxygen frequency: Continuous Continuous oxygen liters per minute: 3 DC home with Oxygen: No Meaningful Use Info Meaningful Use Meaningful Use Diagnoses (Choose all that apply): None applicable Ischemic Stroke Statin Dosing Therapy Reference: STATIN DOSE THERAPY REFERENCE: * Patients > 75 years receive moderate or high dose statin therapy. * Patients 75 years or YOUNGER should receive HIGH intensity statin dose unless contraindicated. You will be required to document reason for non-treatment if statin daily dose does not meet guidelines. HIGH DOSE STATIN THERAPY DAILY Atorvastatin > than or = to 40 mg Rosuvastatin > than or = to 20 mg Amlodipine + Atorvastatin > than or = to 2.5/40 mg Ezetimibe + Simvastatin 10/80 mg Simvastatin 80mg Discharge Plan Admission Admit Date/Time: 08/01/24 15:04 Primary Reason for Your Visit: recurrent pneumonia Attending Provider: Rosalina Gatica Primary Care Provider: Pk Donahue Consulting Providers: Bill Camacho; Aj Andino; Dyllan Tellez; Asif Medina; Jose M Gonzalez; Ned Colbert; Sincere Reed; Hector Rodriguez; Chio Gamble; Rogelio Lim; Amador Barrios; Angel Henderson; Jailyn Casas; Martín Dale; Lucia Bardales; Stanford Marie; Eliezer Colon; Arnold Leblanc; Dean Worthy; Carlos Manuel Barr; Mustapha Baumann; Demetrius Saldana; Raheem Sethi; Mohamud Forde Instructions Patient Instructions: ED Pneumonia (Adult) Discharge Orders/Prescriptions Prescriptions: Continued gabapentin 400 mg capsule 400 mg PO TID hydrocodone-acetaminophen 5-325 mg Tablet 1 tab PO Q6H PRN (Reason: Pain) omeprazole 40 mg Capsule,Delayed Release(Dr/Ec) 40 mg PO DAILY triamterene-hydrochlorothiazid 37.5-25 mg Capsule 1 cap PO DAILY levothyroxine [Synthroid] 88 mcg Tablet 88 mcg PO DAILY potassium chloride 20 mEq tablet,ER particles/crystals 20 meq PO QPM Rx Instructions: 20 mEq orally 2 tabs am and 1 tab pm; buprenorphine [Butrans] 20 mcg/hour Patch Weekly 1 patch TRANSDERMAL FERNANDEZ cholecalciferol (vitamin D3) 125 mcg (5,000 unit) Capsule 125 mcg PO DAILY PRIMAL DEFENSE 410 mg PO 1XD Rx Instructions: DIETARY SUPPLEMENT metoprolol succinate 50 mg Tablet Extended Release 24 Hr 50 mg PO QHS allopurinol 300 mg tablet 300 mg PO DAILY prednisone 10 mg tablet 10 mg PO DAILY ferrous gluconate 324 mg (38 mg iron) tablet 324 mg PO DAILY Humira(CF) Pen 40 mg/0.4 mL pen injector kit 40 mg subcut FERNANDEZ Eliquis 5 mg tablet 5 mg PO BID magnesium oxide 400 mg (241.3 mg magnesium) tablet 400 mg PO QPM potassium chloride [Klor-Con M20] 20 mEq tablet,ER particles/crystals 40 meq PO DAILY albuterol sulfate 90 mcg/actuation aerosol powdr breath activated 2 inh inhalation Q4H PRN (Reason: shortness of breath or wheezing) nystatin 100,000 unit/mL suspension 2 ml PO BID Qty: 100 0RF Rx Instructions: Swish and gargle with 2 ml then spit out 2 times a day albuterol sulfate 2.5 mg /3 mL (0.083 %) solution for nebulization 2.5 mg inhalation Q4H PRN Qty: 25 0RF Rx Instructions: Use q4 hours and PRN for wheezing Referrals / Follow Up: Jose M Gonzalez DO [Med Staff - Active Staff] - Within 2 Weeks (The office will call you to schedule the appointment within 1-2 business days. If you do not hear from them in this time frame please call the office to schedule. ) Pk Donahue DO [Primary Care Provider] - Within 1 Week (The office will call you to schedule the appointment within 1-2 business days. If you do not hear from them in this time frame please call the office to schedule. ) Disposition Disposition (needs filled in before D/C Order can be placed): Home, Self Care Charges/Coding Visit Charges Inpatient E&M: 95803 Disch Hosp >30min
--- NOTE | 2024-08-04 12:54 | CASEMGMT ---
Pt has an order for DC placed. Noted that the pt has been on 3L here and that the pt's home oxygen order states 2L continuous. Inquired with the pt's RN if the pt can be tested at 2L continuous. Pt RN completes this and states to this RN CM that the pt remained 98% on 2L of oxygen. Updated O2 rx not warranted. RN CM to the pt room at this time. Pt sitting up in bed. Pt states that her GS is coming to pick her up today and that he will provide the pt with support at home. Pt states that she still has her portable oxygen here. Pt states that she feels safe with this plan and denies any further DC needs.
== END 2024-08-04 13:26 | disposition home or self-care (01) | DRG 871 ==
LOC: ED 14:39 → PCU 16:24
PROVIDERS: Emergency Provider Emergency Medicine; PCP Family Medicine; Visit Provider Student in an Organized Health Care Education/Training Program
DX: A41.9 Sepsis, unspecified organism (principal); J15.212 Pneumonia due to Methicillin resistant Staphylococcus aureus; E87.20 Acidosis, unspecified; B37.0 Candidal stomatitis; J96.11 Chronic respiratory failure with hypoxia; M06.9 Rheumatoid arthritis, unspecified; B37.9 Candidiasis, unspecified; E89.0 Postprocedural hypothyroidism; I12.9 Hypertensive chronic kidney disease with stage 1 through stage 4 chronic kidney disease, or unspecified chronic kidney disease; N18.9 Chronic kidney disease, unspecified; M10.9 Gout, unspecified; G47.33 Obstructive sleep apnea (adult) (pediatric); K21.9 Gastro-esophageal reflux disease without esophagitis; Z79.52 Long term (current) use of systemic steroids; Z79.01 Long term (current) use of anticoagulants; Z90.710 Acquired absence of both cervix and uterus; Z79.891 Long term (current) use of opiate analgesic; Z79.890 Hormone replacement therapy
CPT/HCPCS: 36415; 71046; 80048; 80053; 80202; 81001; 83605; 85025; 87040; 87070; 87077; 87086; 87088; 87186; 87205; 87449; 87631; 93005; 94640; 94668; 97802; 99252; 99285; A4216; G0463; J0696

== ENCOUNTER → 2024-08-15 | Outpatient (CLI) | payer MEDICARE, MEDICAID, SELFPAY | END | disposition home or self-care (01) | LOC: SL 20:03 | PROVIDERS: PCP Family Medicine; Referring Provider Internal Medicine Critical Care Medicine; Visit Provider Internal Medicine Critical Care Medicine | DX: G47.33 Obstructive sleep apnea (adult) (pediatric) (principal) | CPT/HCPCS: 95810 ==

== ENCOUNTER → 2024-08-27 | Outpatient (CLI) | payer MEDICARE, MEDICAID, SELFPAY ==
--- OUTSIDE RECORDS SUMMARY | 2024-08-27 12:10 | XMS RPT_ITS | CCD ---
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 John Batista Primary Care Provider Dr. John Batista Referring Provider Dr. Akhil Brice Attending Provider Dr. Shahab Adams Primary Care Provider Dr. Shakira Haile Emergency Provider Dr. Maria E Strickland Admit Provider Dr. Maria E Strickland Attending Provider Dr. Maria E Strickland Other Provider Dr. Josafat Villalobos Other Provider Dr. Bethel Benitez Other Provider Dr. Valentin Barrios Attending Provider Dr. Valentin Barrios Attending Provider Dr. Maria E Strickland Referring Provider Dr. Shahab Adams Primary Care Provider Kanika Ojeda Attending Provider Unavailable Dr. Shahab Adams Referring Provider Dr. Tee Cabrera Attending Provider Dr. Tee Cabrera Other Provider Shahab Adams DO Primary Care Provider Shahab Adams DO Primary Care Provider Julien Ochoa Unavailable Dr. Shaahb Adams DO Primary Care Provider Dr. Carlo Ruff DO Attending Provider Speedy HERRERA, Dr. Matos Emergency Provider Bryan HERRERA, Dr. Whittington Attending Provider [phone] Bryan HERRERA, Dr. Whittington Referring Provider [phone] Sophie GÓMEZ, Dr. Hanson Attending Provider Freedom GÓMEZ, Dr. Lucas Emergency Provider Radha GÓMEZ, Dr. Maria Rudd Admit Provider Radha GÓMEZ, Dr. Maria Rudd Attending Provider Freedom GÓMEZ, Dr. Lucas Emergency Provider Radha GÓMEZ, Dr. Maria Rudd Admit Provider Radha GÓMEZ, Dr. Maria Rudd Other Provider Eduardo HERRERA, Dr. Hansen Attending Provider Eduardo HERRERA, Dr. Hansen Other Provider Tino GÓMEZ, Dr. Gonzalez Emergency Provider Marco A GÓMEZ, Dr. Sanderson Admit Provider Marco A GÓMEZ, Dr. Sanderson Attending Provider Marco A GÓMEZ, Dr. Sanderson Other Provider Kelvin HERRERA, Dr. Whittington Attending Provider Kelvin HERRERA, Dr. Whittington Other Provider Freedom GÓMEZ, Dr. Lucas Attending Provider Dr. Jose M Gonzalez DO Attending Provider [phone] Jose M Gonzalez DO Referring Provider Janice HERRERA, Dr. Khan Admit Provider Dr. Bill Camacho DO Attending Provider Janice HERRERA, Dr. Khan Other Provider Janice HERRERA, Dr. Khan Admit Provider Janice HERRERA, Dr. Khan Other Provider Gavi GÓMEZ, Dr. Rosalina Landaverde Attending Provider Sina GÓMEZ, Dr. Rocha Other Provider Rosalinda GÓMEZ, Dr. Mijares Other Provider Adam GÓMEZ, Dr. Gold Other Provider Carlos HERRERA, Dr. Salguero Other Provider Filemon GÓMEZ, Dr. Ned Lay Other Provider [phone] Derek GÓMEZ, Dr. Post Other Provider [phone] Jennifer GÓMEZ, Dr. Young Other Provider [phone] Mavis GÓMEZ, Dr. Barroso Other Provider Raphael GÓMEZ, Dr. Mercado Other Provider [phone] Denis GÓMEZ, Dr. English Other Provider [phone] Santiago GÓMEZ, Dr. Ortiz Other Provider [phone] Yessenia GÓMEZ, Dr. Glaser Other Provider Suyapa GÓMEZ, Dr. Resendiz Other Provider Unavailabl lonny Bardales MD, Dr. Myers Other Provider [phone] Cynthia GÓMEZ, Dr. Coyne Other Provider Isaiah GÓMEZ, Dr. Martins Other Provider [phone] Deana GÓMEZ, Dr. Barrett Other Provider Dr. Dean Worthy DO Other Provider [phone] Cortney GÓMEZ, Dr. Horowitz Other Provider [phone] Ibis GÓMEZ, Dr. Luciano Other Provider [phone] Demetrius Saldana DO Other Provider Navdeep GÓMEZ, Dr. Maciel Other Provider Maurisio GÓMEZ, Dr. Mallory Other Provider [phone] Bill Camacho DO Attending Provider Gavi GÓMEZ, Dr. Rosalina Landaverde Other Provider [phone] Dr. Shahab Adams DO Primary Care Provider Speedy HERRERA, Dr. Matos Attending Provider Speedy HERRERA, Dr. Matos Emergency Provider Bryan HERRERA, Dr. Whittington Attending Provider Bryan HERRERA, Dr. Whittington Referring Provider Sophie GÓMEZ, Dr. Hanson Attending Provider Freedom GÓMEZ, Dr. Lucas Emergency Provider Radha GÓMEZ, Dr. Maria Rudd Admit Provider Radha GÓMEZ, Dr. Maria Rudd Other Provider Eduardo HERRERA, Dr. Hansen Attending Provider Radha GÓMEZ, Dr. Maria Rudd Attending Provider Eduardo HERRERA, Dr. Hansen Other Provider [phone] Tino GÓMEZ, Dr. Gonzalez Emergency Provider Marco A GÓMEZ, Dr. Sanderson Admit Provider Marco A GÓMEZ, Dr. Sanderson Other Provider Kelvin HERRERA, Dr. Whittington Attending Provider Kelvin HERRERA, Dr. Whittington Other Provider Freedom GÓMEZ, Dr. Lucas Attending Provider Carlos HERRERA, Dr. Salguero Attending Provider [phone] Carlos HERRERA, Dr. Salguero Referring Provider [phone] Janice HERRERA, Dr. Khan Admit Provider Janice HERRERA, Dr. Khan Other Provider Gavi GÓMEZ, Dr. Rosalina Landaverde Attending Provider Sina GÓMEZ, Dr. Rocha Other Provider Rosalinda GÓMEZ, Dr. Mijares Other Provider Adam GÓMEZ, Dr. Gold Other Provider Dr. Jose M Gonzalez DO Other Provider Filemon GÓMEZ, Dr. Ned Lay Other Provider [phone] Derek GÓMEZ, Dr. Post Other Provider Jennifer GÓMEZ, Dr. Young Other Provider [phone] Mavis GÓMEZ, Dr. Barroso Other Provider Raphael GÓMEZ, Dr. Mercado Other Provider [phone] Denis GÓMEZ, Dr. English Other Provider [phone] Santiago GÓMEZ, Dr. Ortiz Other Provider [phone] Yessenia GÓMEZ, Dr. Glaser Other Provider [phone] Suyapa GÓMEZ, Dr. Resendiz Other Provider Unavailabl lonny Bardales MD, Dr. Myers Other Provider [phone] Cynthia GÓMEZ, Dr. Coyne Other Provider [phone] Isaiah GÓMEZ, Dr. Martins Other Provider [phone] Deana GÓMEZ, Dr. Barrett Other Provider [phone] Zaynab HERRERA, Dr. Moran Other Provider Cortney GÓMEZ, Dr. Horowitz Other Provider [phone] Ibis GÓMEZ, Dr. Luciano Other Provider [phone] Dr. Demetrius Saldana DO Other Provider Navdeep GÓMEZ, Dr. Maciel Other Provider [phone] Maurisio GÓMEZ, Dr. Mallory Other Provider [phone] Dr. Bill Camacho DO Attending Provider Gavi GÓMEZ, Dr. Rosalina Landaverde Other Provider CHRISTY DENG Attending Unavailable JULIEN OCHOA Referring Unavailable BRYAN, SHAHAB A Primary Care Unavailable BRAYN, SHAHAB A Primary Care Unavailable CHEHARRY MALINANK Attending Unavailab le BRYAN, SHAHAB A Primary Care Unavailable CHEEMALCHARLOTTE CHRIS Referring Unavailab le BRYAN, SHAHAB A Primary Care Unavailable CHEEMALNEVAEHGU, CHRIS Attending Unavailab le BRYAN, SHAHAB A Primary Care Unavailable CHEEMALAVAGU, CHRIS Referring Unavailab le BRYAN, SHAHAB A Primary Care Unavailable CHEEMALAVAGU, CHRIS Referring Unavailab le BRYAN, SHAHAB A Primary Care Unavailable CHEEMALAVAGU, CHRIS Attending Unavailab le BRYAN, SHAHAB A Primary Care Unavailable CHEEMALAVAGU, CHRIS Referring Unavailab le BRYAN, SHAHAB A Primary Care Unavailable CHEMARINONEVAEHGU, CHRIS Attending Unavailab justin JULIEN OCHOA Referring Unavailable BRYAN, SHAHAB A Primary Care Unavailable Gavi GÓMEZ, Dr. Rosalina Landaverde Referring Provider Andres GÓMEZ, Dr. Garnett Attending Provider [phone] Andres GÓMEZ, Dr. Garnett Referring Provider BryanShahab vega Primary Care Unavailable Lance Loja Attending Unavailable Bryan, Shahab Primary Care Unavailable Carlo Ruff Attending Unavailable Janice, Bill Consulting Unavailable Bill Camacho Admitting Unavailable BryanShahab vega Primary Care Unavailable Rosalina Gatica Attending Unavailable Aj Andino Consulting Unavailable Tellez, Dyllan Consulting Unavailable Asif Medina Consulting Unavailable Jose M Gonzalez Consulting Unavailable Ned Colbert P Consulting Unavailable Sincere Reed Consulting Unavailable JenniferHector mixon Consulting Unavailable Chio Gamble Consulting Unavailab le Dand, Rogelio Consulting Unavailable Amador Barrios Consulting Unavailable Angel Henderson Consulting Unavailable YesseniaJailyn perea Consulting Unavailable Aljundi, Gurjitia Consulting Unavailable Bardales, Lucia Consulting Unavailable Cynthia, Stanford Consulting Unavailable Irukulla, Eliezer Consulting Unavailable Deana, Arnold Consulting Unavailable Dhesi, Dean Consulting Unavailable Cortney Sujoy Consulting Unavailable Mustapha Baumann Consulting Unavailable Demetrius Saldana Consulting Unavailable Raheem Sethi Consulting Unavailable Mohamud Forde Consulting Unavailable Bryan, Shahab Primary Care Unavailable Bryan, Shahab Referring Unavailable Bryan, Shahab Attending Unavailable Janice, Bill Consulting Unavailable Bryan, Shahab Primary Care Unavailable Rosalina Gatica Attending Unavailable Leonoraeri, Bill Admitting Unavailable Aj Andino Consulting Unavailable Tellez, Dyllan Consulting Unavailable Asif Medina Consulting Unavailable Carlos, Jose M Consulting Unavailable Colbert, Ned P Consulting Unavailable Sincere Reed Consulting Unavailable Jennifer, Hector Consulting Unavailable Chio Gamble Consulting Unavailab justin Lim, Rogelio Consulting Unavailable Amador Barrios Consulting Unavailable Angel Henderson Consulting Unavailable Jailyn Casas Consulting Unavailable Martín Dale Consulting Unavailable Bardales, Lucia Consulting Unavailable Cynthia, Stanford Consulting Unavailable Irukleon, Eliezer Consulting Unavailable Deana, Arnold Consulting Unavailable Dhedave, Dean Consulting Unavailable Carlos Manuel Barr Consulting Unavailable Mustapha Baumann Consulting Unavailable Demetrius Saldana Consulting Unavailable Navdeep, Raheem Consulting Unavailable Mohamud Forde Consulting Unavailable Rosalina Gatica Consulting Unavailable Bryan, Shahab Primary Care Unavailable Tamir Campos Attending Unavailable Carlos, Jose M Referring Unavailable Bill Camacho Attending Unavailable Bill Camacho Consulting Unavailable Bill Camacho Admitting Unavailable Bryan, Shahab Primary Care Unavailable Bryan, Shahab Primary Care Unavailable Maria E Strickland Admitting Unavailable Maria E Strickland Consulting Unavailable Shahab Warren Attending Unavailable Bryan, Shahab Primary Care Unavailable Tyrone Clark Attending Unavailable White, Maria L Admitting Unavailable White, Maria L Consulting Unavailable Bryan, Shahab Primary Care Unavailable Brown, Jose M Referring Unavailable BrownBimalk Attending Unavailable Bryan, Shahab Primary Care Unavailable Brown, Jose M Referring Unavailable Bimal Gonzalezk Attending Unavailable Bryan, Shahab Primary Care Unavailable Brown, Jose M Referring Unavailable Bimal Gonzalezk Attending Unavailable Bryan, Shahab Primary Care Unavailable Jess Stricklandge Admitting Unavailable Marco A Maria E Consulting Unavailable Shahab Warren Attending Unavailable ColinkyShahab Consulting Unavailable Bryan, Shahab Primary Care Unavailable White, Maria L Admitting Unavailable White, Maria L Attending Unavailable White, Maria L Consulting Unavailable Bryan, Shahab Primary Care Unavailable Shahab Adams Attending Unavailable Bryan, Shahab Referring Unavailable Bryan, Shahab Primary Care Unavailable Bryan, Shahab Referring Unavailable BryanShahab Attending Unavailable Bryan, Shahab Primary Care Unavailable BryanShahab vega Attending Unavailable Bryan, Shahab Referring Unavailable Bryan, Shahab Primary Care Unavailable Tamir Campos Referring Unavailable Tamir Campos Attending Unavailable Bryan, Shahab Primary Care Unavailable Valentin Barrios Attending Unavailable Bryan, Shahab Primary Care Unavailable Bryan, Shahab Referring Unavailable Brown, Jose M Attending Unavailable Shahab Adams Primary Care Unavailable Jose M Gonzalez Consulting Unavailable Jose M Gonzalez Referring Unavailable Jose M Gonzalez Attending Unavailable Shahab Adams Primary Care Unavailable Maria Garcia Consulting Unavailable Tyrone Clark Attending Unavailable Maria Garcia Admitting Unavailable Tyrone Clark Consulting Unavailable aGvi Rosalina Saima Referring Unavailable Jose M Gonzalez Attending Unavailable Maria E Strickland Attending Unavailable Allergies Allergy Classification Reported Allergen(s) Allergy Type Date of Onset Reaction(s) Facility Acetaminophen / oxyCODONE (1 source) Acetaminophen / oxyCODONE Drug Allergy 6 [facility] Penicillins (antibiotic) (1 source) Penicillin Drug Allergy 6 [facility] Tetracyclines (antibiotic) (1 source) Tetracycline Drug Allergy 6 [facility] (20 sources) oxyCODONE Drug Allergy 1 [facility] (7 sources) Penicillins Allergy to substance 1 [facility] (13 sources) Tetracyclines Allergy to substance 1 [facility] (15 sources) Adhesive Tape; Translations: [adhesive tape] Propensity to adverse reactions 3 [facility] (20 sources) Acetaminophen / oxyCODONE; Translations: [OXYCODONE-ACETAM INOPHEN] Drug Allergy 6 [facility] (20 sources) Penicillin; Translations: [PENICILLIN] Drug Allergy 6 [facility] (20 sources) Tetracycline; Translations: [TETRACYCLINE] Drug Allergy 6 [facility] (20 sources) tocilizumab; Translations: [TOCILIZUMAB] Drug Allergy 4 [facility] (1 source) oxyCODONE Drug Allergy 5 [facility] Repository Medications Current Medications Medication Drug Class(es) Dates Sig (Normalized) Sig (Original) 1 ml abatacept 125 mg/ml prefilled syringe (7 sources) Selective T Cell Costimulation Modulator Start: 01-13-2021 Abatacept (Orencia) 125 mg/mL Syringe Active 125 MG SC EVERY WEEK January 12, 2021 11:00pm acetaminophen 325 mg / HYDROcodone bitartrate 5 mg oral tablet (20 sources) Opioid Agonist Start: 01-13-2021 Start: 01-13-2021 Hydrocodone-Ac etaminophen 5-325 mg Tablet Active 1 {tbl} PO EVERY 6 HOURS as needed for Pain January 13, 2021 12:00am Start: 01-13-2021 take 1 tablet by [facility] every six hours Hydrocodone-Acetaminophen Active 1 TABLE T PO EVERY 6 HOURS January 13, 2021 12:00am take 1 tablet by [facility] twice daily HYDROcodone-acetaminophen (NORCO) 5-325 mg per tablet Take 1 tablet by mouth twice daily. Active Comment on above: Take 1 tablet by [facility] twice daily. 0.4 ml adalimumab 100 mg/ml auto-injector (20 sources) Tumor Necrosis Factor Camille Start: 06-10-2024 End: 06-27-2024 Start: 01-15-2024 End: 10-25-2024 inject 4 doses by subcutaneous injection every week in the evening adalimumab (HUMIRA,CF, PEN) 40 mg/0.4 mL pen kit Indications: Seronegative rheumatoid arthritis (HCC) Inject 40mg(1 pen) subcutaneously one time a week. 4 each 2 08/03/2024 3:58 PM EDT 07/27/2024 10/25/2024 Active Start: 12-02-2022 End: 02-04-2024 adalimumab (HUMIRA,CF, PEN) 40 mg/0.4 mL pen kit Inject 1 pen (40 mg) subcutaneously every other week. 2 Each 2 10/26/2023 01/15/2024 Discontinued Comment on above: Inject 1 pen (40mg) subcutaneously every 2 weeks. 200 actuat albuterol 0.09 mg/actuat dry powder inhaler (20 sources) beta2-Adrenergic Agonist Start: 07-08-2024 Start: 07-08-2024 Start: 07-08-2024 take 2.5 mg by inhal ation every four hours as needed for wheezing Albuterol Sulfate 2.5 mg /3 mL (0.083 %) solution for nebulization Active 2.5 mg INHALATION EVERY 4 HOURS NEEDED July 08, 2024 12:00am Use q4 hours and PRN for wheezing Start: 07-08-2024 Albuterol Sulf ate 90 mcg/actuation aerosol powdr breath activated Active 2 NMA INHALATION Q4H as needed for shortness of breath or wheezing July 08, 2024 12:00am Start: 10-22-2022 End: 07-08-2024 Start: 10-22-2022 End: 07-08-2024 Albuterol Sulfate (Proair Hf a) 90 mcg/actuation HFA aerosol inhaler Discontinued 2 NMA INHALATION Q4H as needed for shortness of breath or wheezing October 22, 2022 12:00am July 08, 2024 6:03pm Start: 10-22-2022 take 1 puff(s) by in halation every four hours Albuterol Sulfate (Proair Hfa) 90 mcg/actuation HFA aerosol inhaler Active 2 PUFF INHALATION Q4H October 22, 2022 12:00am allopurinol 300 mg oral tablet (20 sources) Xanthine Oxidase Inhibitor Start: 12-07-2023 End: 11-15-2024 take 1 tablet by mouth once daily allopurinol (ZYLOPRIM) 300 mg tablet Take 1 tablet by mouth once daily. 90 tablet 08/17/2024 11/15/2024 Active Start: 06-11-2023 End: 12-07-2023 allopurinol (ZYLOPRIM) 100 m g tablet TAKE 3 TABLETS ONCE DAILY 90 tablet 11 06/11/2023 12/07/2023 Discontinued (Course of therapy completed) Start: 04-03-2023 End: 05-31-2023 take 1 tablet by mouth once daily, then take 2 tablets by mouth once daily, then take 3 tablets by mouth once daily allopurinol (ZYLOPRIM) 100 mg tablet Take 1 tablet by mouth once daily for 14 days, THEN 2 tablets once daily for 14 days, THEN 3 tablets once daily. 132 tablet 0 04/03/2023 05/31/2023 Active Comment on above: Take 1 tablet by [facility] once daily for 14 days, THEN 2 tablets once daily for 14 days, THEN 3 tablets once daily. TAKE 3 TABLETS ONCE DAILY apixaban 5 mg oral tablet (20 sources) Factor Xa Inhibitor Start: 08-01-2024 Start: 06-27-2024 End: 08-01-2024 Start: 06-27-2024 End: 08-01-2024 take 1 tablet by mouth every twelve hours Apixaban (Eliquis Dvt-Pe Treat 30d Start) 5 mg (74 tabs) tablets,dose pack Discontinued 5 mg PO Q12H June 27, 2024 12:00am August 01, 2024 2:49pm Start: 06-12-2024 End: 06-27-2024 Start: 06-12-2024 End: 06-27-2024 take 1 tablet by mouth once Apixaban (Eliquis Dvt-Pe T reat 30d Start) 5 mg (74 tabs) tablets,dose pack Discontinued 0 PO .COMPLEX 74 June 12, 2024 12:00am June 27, 2024 2:16pm orally per package directions benoxinate hydrochloride 4 mg/ml / fluorescein sodium 3 mg/ml ophthalmic solution (1 source) Diagnostic Dye Start: 04-07-2024 End: 04-07-2024 fluorescein-benoxinate 0.3-0.4 % 1 Drop (FLURESS) 168 hr buprenorphine 0.02 mg/hr transdermal system (20 sources) Partial Opioid Agonist Start: 01-13-2021 Start: 01-13-2021 apply 20 ug transder mal route every week Buprenorphine (Butrans) 20 mcg/hour Patch Weekly Active 1 NMA TD EVERY WEEK January 13, 2021 12:00am PT DOES ON SATURDAYS buprenorphine 15 mcg/hour ptwk Apply as directed. Active Comment on above: Apply as directed. cholecalciferol 0.125 mg ora l capsule (20 sources) Vitamin D Start: 06-01-2022 colchicine 0.6 mg oral table t (20 sources) Start: 06-10-2024 End: 07-08-2024 Start: 08-20-2023 End: 06-20-2024 take 1 tablet by mouth twice daily colchicine 0.6 mg tablet take 1 tablet by mouth twice a day 60 tablet 06/20/2024 Active Start: 04-23-2023 End: 08-20-2023 take 1 tablet by mouth once daily colchicine 0.6 mg tablet Take 1 tablet by mouth once daily. 90 tablet 0 04/23/2023 08/20/2023 Discontinued Start: 03-16-2023 End: 04-13-2023 take 1 tablet by mouth once daily colchicine 0.6 mg tablet take 1 tablet by mouth once daily 30 tablet 0 04/13/2023 Active Start: 01-20-2023 End: 02-19-2023 take 1 tablet by mouth once daily colchicine 0.6 mg tablet take 1 tablet by mouth once daily 30 tablet 0 02/18/2023 Active Comment on above: Take 1 tablet by [facility] once daily. take 1 tablet by [facility] once daily dexamethasone 6 mg oral tablet (7 sources) Corticosteroid Start: 01-14-20 take 6 mg by mouth once daily Dexamethasone Active 6 MG PO DAILY January 12, 2021 11:00pm ferrous gluconate 324 mg oral tablet (20 sources) Start: 10-23-19 End: 06-28-19 gabapentin 400 mg oral capsule (20 sources) Anti-epileptic Agent Start: 05-09-19 take 1 capsule by mouth once jordin ly gabapentin (NEURONTIN) 300 mg capsule Take 300 mg by mouth once daily. Active Comment on above: Take 300 mg by mouth once daily. hydroCHLOROthiazide 25 mg / triamterene 37.5 mg oral capsule (20 sources) Potassium-sparing Diuretic, Thiazide Diuretic Start: 01-13-2021 Triamterene-Hydrochl orothiazid 37.5-25 mg Capsule Active 1 NMA PO DAILY January 13, 2021 12:00am Start: 01-13-2021 Start: 01-13-2021 take 1 capsule by [facility] once daily Triamterene-Hydrochlorothiazid Active 1 CAP PO DAILY January 13, 2021 12:00am Comment on above: Take 1 capsule by [facility] once daily. hyoscyamine sulfate 0.125 mg oral tablet (12 sources) Start: 6 End: 4 take 1 tablet by mouth three times daily before mealtime hyoscyamine (LEVSIN) 0.125 mg tablet Take 1 tablet by mouth three times daily before meals. 90 tablet 6 07/06/2015 06/28/2023 Discontinued Comment on above: Take 1 tablet by [facility] three times daily before meals. levothyroxine sodium 0.088 mg oral tablet (20 sources) l-Thyroxine Start: Start: 01-13-2021 Levothyroxine (Synthroid) 88 mcg Tablet Active 100 ug PO DAILY January 13, 2021 12:00am take 1 tablet by [facility] once daily levothyroxine (SYNTHROID) 100 mcg tablet Take 100 mcg by mouth once daily. Active Comment on above: Take 100 mcg by mout h once daily. magnesium oxide 400 mg oral tablet (20 sources) Start: 08-01-2024 take 1 capsule by mouth twice da jessie magnesium oxide 400 mg cap Take 400 mg by mouth twice daily. Active Comment on above: Take 400 mg by mouth twice daily. 24 hr metoprolol succinate 5 0 mg extended release oral tablet (20 sources) beta-Adrenergic Camille Start: 06-04-2022 End: 11-13-2022 Start: 06-04-2022 End: 11-13-2022 take 1 tablet by mouth once daily Metoprolol Succinate 50 mg Tablet Extended Release 24 Hr Discontinued 50 mg PO DAILY June 04, 2022 12:00am November 13, 2022 9:30am Start: 06-01-2022 End: 06-04-2022 Start: 06-01-2022 End: 06-04-2022 take 100 mg by mouth at dinner Metoprolol Succinate Di scontinued 100 MG PO WITH DINNER June 01, 2022 12:00am June 04, 2022 3:46pm Start: 01-13-2021 take 100 mg by mouth once mark y Metoprolol Tartrate Active 100 MG PO DAILY January 12, 2021 11:00pm metoprolol tartr ate, short acting, (LOPRESSOR) 25 mg tablet Take 50 mg by mouth once daily. Active take 1 tablet by [facility] once daily metoprolol tartrate, short acting, (LOPRESSOR) 25 mg tablet Take 25 mg by mouth once daily. 0 Active Comment on above: Take 25 mg by mouth once daily. omeprazole 40 mg delayed rel ease oral capsule (20 sources) Proton Pump Inhibitor Start: 01-13-2021 take 1 capsule by mouth twice da jessie Omeprazole 40 mg capsule Take 40 mg by mouth twice daily. Active Comment on above: Take 40 mg by mouth twice daily. ondansetron 8 mg oral tablet (12 sources) Serotonin-3 Receptor Antagonist Start: 06-11-2015 End: 06-28-2023 ondansetron (ZOFRAN) 8 mg tablet Take 1 tablet by mouth as needed. 90 tablet 1 06/11/2015 06/28/2023 Discontinued Comment on above: Take 1 tablet by libert[facility] th as needed. phenylephrine hydrochloride 25 mg/ml ophthalmic solution (2 sources) alpha-1 Adrenergic Agonist Start: 04-07-2024 End: 04-07-2024 PHENYLephrine 2.5 % 1 Drop (AK-DILATE, LILA-SYNEPHRINE) Start: 04-07-2024 End: 04-07-2024 1 Drop, BOTH EYES, DIRECT ED, Starting on Ronel 04/07/24 at 0830, Until Ronel 04/07/24 at 2028, Administer for dilation PROTECT FROM LIGHT PRIMAL DEFENCE (8 sources) Start: 11-12-2022 take 410 mg by mouth once daily PRIMAL DEFENCE Active 410 mg PO 1 time daily November 12, 2022 12:00am DIETARY SUPPLEMENT Start: 11-12-2022 take 410 mg by mouth once mark y PRIMAL DEFENCE Active 410 MG PO 1 time daily November 12, 2022 12:00am DIETARY SUPPLEMENT PRIMAL DEFENSE (2 sources) Start: 11-12-2022 take 410 mg by mouth once daily PRIMAL DEFENSE Active 410 mg PO 1 time daily November 12, 2022 12:00am DIETARY SUPPLEMENT proparacaine hydrochloride 5 mg/ml ophthalmic solution (1 source) Local Anesthetic Start: 04-07-2024 End: 04-07-2024 proparacaine 0.5 % 1 Drop (ALCAINE) sulfaSALAzine 500 mg oral tablet (18 sources) Aminosalicylate Start: 06-27-2024 End: 10-02-2024 take 2 tablets by mouth twice daily sulfaSALAzine (AZULFIDINE) 500 mg tablet Take 2 tablets by mouth two times a day. 360 tablet 07/04/2024 10/02/2024 Active Start: 05-29-2024 End: 07-08-2024 take 1 tablet by mouth twice daily Sulfasalazine 500 mg tablet Discontinued 500 mg PO TWICE A DAY June 27, 2024 12:00am July 08, 2024 5:58pm On Hold: Resume per direction of your customer sales advisor tropicamide 10 mg/ml ophthalmic solution (2 sources) Anticholinergic Start: 04-07-2024 End: 04-07-2024 tropicamide 1 % 1 Drop (MYDRIACYL) Start: 04-07-2024 End: 04-07-2024 1 Drop, BOTH EYES, DIRECT ED, Starting on Ronel 04/07/24 at 0830, Until Ronel 04/07/24 at 2028, Administer for dilation (9 sources) Start: 11-12-2022 Start: 10-22-2022 End: 08-01-2024 Start: 06-01-2022 End: 10-22-2022 Completed/Discontinued Medications Medication Drug Class(es) Dates Sig (Normalized) Sig (Original) amoxicillin 875 mg / clavulanate 125 mg oral tablet (18 sources) Penicillin-class Antibacterial Start: 06-04-2022 End: 11-12-2022 Start: 06-04-2022 End: 11-12-2022 Amoxicillin-Pot Clavulanate 875-125 mg tablet Discontinued 1 {tbl} PO Q12H June 04, 2022 12:00am November 12, 2022 9:12am Start: 06-04-2022 End: 11-12-2022 take 1 tablet by mouth every twelve hours Amoxicillin-Pot Clavulanate Discontinued 1 TABLET PO Q12H June 04, 2022 12:00am November 12, 2022 9:12am azithromycin 250 mg oral tablet (20 sources) Macrolide Antimicrobial Start: 03-15-2016 End: 02-17-2018 ciprofloxacin 500 mg oral tablet (18 sources) Quinolone Antimicrobial Start: 06-04-2022 End: 11-12-2022 1 ml etanercept 50 mg/ml prefilled syringe (1 source) Tumor Necrosis Factor Camille End: 11-21-2022 Etanercept 50 mg/mL (0.98 mL) injection Inject 50 mg subcutaneously. 0 11/21/2022 Discontinued Comment on above: Inject 50 mg subcuta neously. hydroxychloroquine sulfate 200 mg oral tablet (20 sources) Antimalarial, Antirheumatic Agent Start: 01-13-2021 End: 06-10-2024 End: 04-07-2024 hydroxychloroquine (PLAQUENI L) 200 mg tablet Take by mouth twice daily. 04/07/2024 Discontinued Comment on above: Take by mouth twice daily. leflunomide 20 mg oral tablet (9 sources) Antirheumatic Agent Start: 04-14-19 End: 05-27-19 take 1 tablet by mouth once daily leflunomide (ARAVA) 20 mg tablet take 1 tablet by mouth once daily 30 tablet 05/09/2024 05/26/2024 Discontinued levoFLOXacin 750 mg oral tablet (8 sources) Quinolone Antimicrobial Start: 06-30-19 End: 07-09-19 25 Magnesium (20 sources) Start: 10-23-19 End: 08-02-19 25 Magnesium 250 mg tablet Discontinued 400 mg PO WITH DINNER October 22, 2022 8:37am August 01, 2024 2:53pm Start: 10-22-2022 Magnesium 250 mg tablet Active 400 mg PO WITH DINNER October 22, 2022 8:37am Start: 10-22-2022 take 250 mg by mouth at dinner Magnesium Active 250 MG PO WITH DINNER October 22, 2022 8:37am Start: 06-01-2022 End: 10-22-2022 take 1 tablet by mouth at dinner Magnesium 250 mg Tablet Discontinued 250 mg PO WITH DINNER June 01, 2022 12:00am October 22, 2022 8:38am Start: 06-01-2022 End: 10-22-2022 take 250 mg by mouth at dinner Magnesium Discontinued 250 MG PO WITH DINNER June 01, 2022 12:00am October 22, 2022 8:38am Start: 06-01-2022 take 250 mg by mouth at dinner Magnesium Active 250 MG PO WITH DINNER June 01, 2022 12:00am Start: 06-01-2022 take 250 mg by mouth once mark y Magnesium Active 250 MG PO DAILY June 01, 2022 12:00am milnacipran hydrochloride 50 mg oral tablet (20 sources) Serotonin and Norepinephrine Reuptake Inhibitor Start: 02-25-2024 End: 05-25-2024 take 1 tablet by mouth twice daily Milnacipran (SAVELLA) 50 mg tab Take 1 tablet by mouth two times a day. 60 tablet 2 02/25/2024 04/07/2024 Discontinued (Course of therapy completed) Start: 01-15-2024 End: 02-25-2024 Milnacipran (SAVELLA) 12.5 m g (5)-25 mg(8)-50 mg(42) DsPk 12.5 mg once daily on day 1, then 12.5 mg twice daily on days 2 to 3, 25 mg twice daily on days 4 to 7, then to usual dosage of 50 mg twice daily thereafter. 55 tablet 01/15/2024 02/25/2024 Discontinued Start: 01-15-2024 Milnacipran (S AVELLA) 12.5 mg (5)-25 mg(8)-50 mg(42) DsPk 12.5 mg once daily on day 1, then 12.5 mg twice daily on days 2 to 3, 25 mg twice daily on days 4 to 7, then to usual dosage of 50 mg twice daily thereafter. 55 tablet 01/15/2024 Active Start: 01-01-2024 End: 01-15-2024 Milnacipran (SAVELLA) 12.5 m g (5)-25 mg(8)-50 mg(42) DsPk 12.5 mg once daily on day 1, then 12.5 mg twice daily on days 2 to 3, 25 mg twice daily on days 4 to 7, then to usual dosage of 50 mg twice daily thereafter. 55 tablet 01/01/2024 01/15/2024 Discontinued Start: 01-01-2024 Milnacipran (S AVELLA) 12.5 mg (5)-25 mg(8)-50 mg(42) DsPk 12.5 mg once daily on day 1, then 12.5 mg twice daily on days 2 to 3, 25 mg twice daily on days 4 to 7, then to usual dosage of 50 mg twice daily thereafter. 55 tablet 01/01/2024 Active Start: 01-13-2021 End: 06-28-2023 take 1 tablet by mouth twice daily Milnacipran (Savella) 12.5 mg Tablet Active 12.5 MG PO TWICE A DAY January 12, 2021 11:00pm Comment on above: Take 12.5 mg by mout h twice daily. nystatin [id number] unt/ml oral suspension (7 sources) Polyene Antifungal Start: 07-08-2024 End: 08-18-2024 Start: 07-08-2024 Nystatin 100,0 00 unit/mL suspension Active 2 mL PO TWICE A DAY July 08, 2024 12:00am Swish and gargle with 2 ml then spit out 2 times a day potassium chloride 20 meq ex tended release oral tablet (20 sources) Start: 08-01-2024 End: 08-01-2024 Start: 01-13-2021 End: 08-18-2024 Start: 01-13-2021 take 1 tablet by libertad th once daily in the evening Potassium Chloride 20 mEq tablet,ER particles/crystals Active 20 meq PO EVERY EVENING January 13, 2021 12:00am 20 mEq orally 2 tabs am and 1 tab pm; Start: 01-13-2021 take 1 tablet by libertad th in the evening Potassium Chloride 20 mEq tablet,ER particles/crystals Active 20 meq PO .COMPLEX January 13, 2021 12:00am 20 mEq orally 2 tabs am and 1 tab pm; Start: 01-13-2021 Potassium Chlo ride Active 60 MEQ PO DAILY January 12, 2021 11:00pm 40 IN AM, 20 QHS take 20 mEq by mouth three times daily potassium chloride (K-SUNG, KLOR-CON) 20 mEq packet Take 20 mEq by mouth three times daily. Active Comment on above: Take 20 mEq by mouth three times daily. predniSONE 1 mg oral tablet (20 sources) Start: 06-27-2024 End: 08-01-2024 Start: 06-10-2024 End: 06-27-2024 Start: 05-26-2024 End: 08-24-2024 take 1 tablet by mouth once daily predniSONE (DELTASONE) 10 mg tablet Take 1 tablet by mouth once daily. 90 tablet 05/26/2024 08/24/2024 Active Start: 05-26-2024 End: 07-21-2024 take 4 tablets by mouth once daily, then take 3 tablets by mouth once daily, then take 2 tablets by mouth once daily, then take 1 tablet by mouth once daily predniSONE (DELTASONE) 1 mg tablet Take 4 tablets by mouth once daily for 14 days, THEN 3 tablets once daily for 14 days, THEN 2 tablets once daily for 14 days, THEN 1 tablet once daily for 14 days. 140 tablet 05/26/2024 07/21/2024 Active Start: 03-30-2024 End: 05-27-2024 take 3 tablets by mouth once daily predniSONE (DELTASONE) 5 mg tablet Take 3 tablets by mouth once daily. 90 tablet 04/27/2024 05/26/2024 Discontinued Start: 02-25-2024 End: 03-26-2024 take 3 tablets by mouth once daily predniSONE (DELTASONE) 5 mg tablet Take 3 tablets by mouth once daily. 90 tablet 02/25/2024 03/26/2024 Active Start: 12-07-2023 End: 02-01-2024 take 4 tablets by mouth once daily, then take 3.5 tablets by mouth once daily, then take 3 tablets by mouth once daily, then take 2.5 tablets by mouth once daily, then take 2 tablets by mouth once daily, then take 1.5 tablets by mouth once daily, then take 1 tablet by mouth once daily, then take 0.5 tablet by mouth once daily predniSONE (DELTASONE) 5 mg tablet Take 4 tablets by mouth once daily for 7 days, THEN 3.5 tablets once daily for 7 days, THEN 3 tablets once daily for 7 days, THEN 2.5 tablets once daily for 7 days, THEN 2 tablets once daily for 7 days, THEN 1.5 tablets once daily for 7 days, THEN 1 tablet once daily for 7 days, THEN 0.5 tablets once daily for 7 days. 126 tablet 12/07/2023 02/01/2024 Active Start: 10-26-2023 End: 12-01-2023 take 6 tablets by mouth once daily, then take 5 tablets by mouth once daily, then take 4 tablets by mouth once daily, then take 3 tablets by mouth once daily, then take 2 tablets by mouth once daily, then take 1 tablet by mouth once daily predniSONE (DELTASONE) 5 mg tablet Take 6 tablets by mouth once daily for 5 days, THEN 5 tablets once daily for 5 days, THEN 4 tablets once daily for 5 days, THEN 3 tablets once daily for 7 days, THEN 2 tablets once daily for 7 days, THEN 1 tablet once daily for 7 days. 117 tablet 10/26/2023 12/01/2023 Active Start: 10-01-2023 End: 10-21-2023 take 4 tablets by mouth once daily, then take 3 tablets by mouth once daily, then take 2 tablets by mouth once daily, then take 1 tablet by mouth once daily predniSONE (DELTASONE) 5 mg tablet Take 4 tablets by mouth once daily for 5 days, THEN 3 tablets once daily for 5 days, THEN 2 tablets once daily for 5 days, THEN 1 tablet once daily for 5 days. 50 tablet 0 10/01/2023 10/21/2023 Active Start: 01-13-2021 End: 11-21-2022 take 5 mg by mouth once daily Prednisone Active 5 MG P O DAILY January 12, 2021 11:00pm Comment on above: Take 5 mg by mouth o nce daily. 0.9 ml tocilizumab 180 mg/ml auto-injector (4 sources) Interleukin-6 Receptor Antagonist Start: 10-01-2023 End: 12-30-2023 tocilizumab 162 mg/0.9 mL Inject 1 pen (162mg) subcutaneously every other week. 1.8 mL 2 10/01/2023 10/26/2023 Discontinued (Allergic response) Problems Active Problems Problem Classification Problem Date Documented Date Episodic/Chronic Abdominal pain (20 sources) Abdominal pain; Translations: [Unspecified abdominal pain] 09-06-2018 Episodic Cardiac dysrhythmias (20 sources) Sinus tachycardia; Translations: [Tachycardia, unspecified] 06-27-2024 Episodic Cataract (1 source) Nuclear senile cataract; Translations: [Age-related nuclear cataract, bilateral] 04-07-2024 Chronic Complication of device; implant or graft (20 sources) Infection associated with neurological device; Translations: [Infection and inflammatory reaction due to implanted electronic neurostimulator of spinal cord, electrode (lead), initial encounter] 06-01-2022 Episodic Esophageal disorders (20 sources) Gastroesophageal reflux disease; Translations: [Gastro-esophageal reflux disease without esophagitis] Onset: 05-03-2015 05-03-2015 Chronic Essential hypertension (20 sources) Essential hypertension; Translations: [Essential (primary) hypertension] Onset: 05-03-2015 05-03-2015 Chronic Fluid and electrolyte disorders (10 sources) Lactic acidosis; Translations: [Lactic acidosis] 08-01-2024 Episodic Gout and other crystal arthropathies (9 sources) Gouty arthritis of multiple sites; Translations: [Idiopathic chronic gout, multiple sites, without tophus (tophi)] Onset: 05-26-2024 06-26-2023 Chronic Headache; including migraine (20 sources) Migraine; Translations: [Migraine, unspecified, not intractable, without status migrainosus] 01-13-2021 Chronic Headache; including migraine (20 sources) Headache; Translations: [Headache] 03-20-2019 Episodic Hypertension with complications and secondary hypertension (1 source) Chronic kidney disease stage 3 due to hypertension; Translations: [Hypertensive chronic kidney disease with stage 1 through stage 4 chronic kidney disease, or unspecified chronic kidney disease] 06-26-2023 Chronic Mycoses (7 sources) Candidiasis of mouth; Translations: [Candidal stomatitis] 07-16-2024 Episodic Osteoarthritis (20 sources) Arthritis; Translations: [Unspecified osteoarthritis, unspecified site] Onset: 05-03-2015 01-13-2021 Chronic Other acquired deformities (11 sources) Acquired scoliosis; Translations: [Other forms of scoliosis, site unspecified] 05-08-2021 Chronic Other acquired deformities (1 source) Other forms of scoliosis, site unspecified; Translations: [Disorder of bone and cartilage, unspecified] Chronic Other acquired deformities (18 sources) Other secondary scoliosis, site unspecified; Translations: [Disorder of bone and cartilage, unspecified] Chronic Other aftercare (6 sources) Taking high risk medication; Translations: [Other care home (current) drug therapy] 06-28-2023 Episodic Other aftercare (1 source) Drug therapy finding; Translations: [Other care home (current) drug therapy] 04-07-2024 Episodic Other aftercare (1 source) Long-term current use of drug therapy; Translations: [Other termite control representative (current) drug therapy] 04-07-2024 Episodic Other aftercare (1 source) Long-term 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 steroid; Translations: [USP (current) use of systemic steroids] 04-07-2024 Episodic Other aftercare (20 sources) Long-term current use of anticoagulant; Translations: [oil heaterman (current) use of anticoagulants] 06-27-2024 Episodic Other bone disease and musculoskeletal deformities (1 source) Osteopenia; Translations: [Other specified disorders of bone density and structure, unspecified site] 05-26-2024 Episodic Other bone disease and musculoskeletal deformities (1 source) Other specified disorders of bone density and structure, unspecified site; Translations: [Osteopenia, unspecified location] Onset: 05-26-2024 Episodic Other circulatory disease (18 sources) Elevated blood-pressure reading without diagnosis of hypertension; Translations: [Elevated blood-pressure reading, without diagnosis of hypertension] 06-27-2024 Episodic Other connective tissue disease (2 sources) Foot pain; Translations: [Pain in unspecified foot] 01-16-2023 Episodic Other connective tissue disease (1 source) Pain in both feet; Translations: [Pain in right foot] 01-20-2023 Episodic Other injuries and conditions due to external causes (1 source) Contusion; Translations: [Other injury of unspecified body region, initial encounter] 05-26-2024 Episodic Other injuries and conditions due to external causes (18 sources) Systemic inflammatory response syndrome; Translations: [Systemic inflammatory response syndrome (SIRS) of non-infectious origin without acute organ dysfunction] 06-27-2024 Episodic Other injuries and conditions due to external causes (1 source) Other injury of unspecified body region, initial encounter; Translations: [Bruising] Onset: 05-26-2024 Episodic Other liver diseases (5 sources) Elevated liver enzymes level; Translations: [Abnormal levels of other serum enzymes] 06-28-2023 Episodic Other liver diseases (1 source) Abnormal levels of other serum enzymes; Translations: [Elevated liver enzymes] Onset: 05-26-2024 Episodic Other lower respiratory disease (20 sources) Hypoxemia; Translations: [Hypoxemia] 01-21-2021 Episodic Other lower respiratory disease (18 sources) Dyspnea; Translations: [Shortness of breath] 05-26-2024 Episodic Other lower respiratory disease (10 sources) Multilobar lung infiltrate; Translations: [Other nonspecific abnormal finding of lung field] 08-01-2024 Episodic Other lower respiratory disease (10 sources) Tachypnea; Translations: [Tachypnea, not elsewhere classified] 08-01-2024 Episodic Other lower respiratory disease (3 sources) Shortness of breath; Translations: [Shortness of breath] Onset: 05-26-2024 Episodic Other lower respiratory disease (2 sources) Hypoxemia; Translations: [Hypoxemia] Onset: 07-20-2024 Episodic Other lower respiratory disease (1 source) Other forms of dyspnea; Translations: [Other forms of dyspnea] Onset: 06-11-2024 Episodic Other non-traumatic joint disorders (5 sources) Multiple joint pain; Translations: [Pain in unspecified joint] 11-21-2022 Episodic Other non-traumatic joint disorders (1 source) Swelling of bilateral feet; Translations: [Effusion, right ankle] 10-04-2023 Episodic Other nutritional; endocrine; and metabolic disorders (1 source) Hyperuricemia; Translations: [Hyperuricemia without signs of inflammatory arthritis and tophaceous disease] 01-20-2023 Episodic Other nutritional; endocrine; and metabolic disorders (18 sources) H/O: hypothyroidism; Translations: [Personal history of other endocrine, nutritional and metabolic disease] 06-27-2024 Episodic Other screening for suspected conditions (not mental disorders or infectious disease) (17 sources) Patient encounter status; Translations: [Encounter for screening for malignant neoplasm of colon] Onset: 06-27-2024 10-22-2022 Episodic Other upper respiratory disease (20 sources) Acute bronchospasm; Translations: [Acute bronchospasm] 06-27-2024 Episodic Other upper respiratory disease (7 sources) Disorder of upper respiratory system; Translations: [Disease of upper respiratory tract, unspecified] 07-16-2024 Episodic Pneumonia (except that caused by tuberculosis or sexually transmitted disease) (20 sources) Left lower zone pneumonia; Translations: [Pneumonia, unspecified organism] Onset: 08-17-2024 06-27-2024 Episodic Pulmonary heart disease (20 sources) Pulmonary embolism; Translations: [Other pulmonary embolism without acute cor pulmonale] Onset: 06-13-2024 06-10-2024 Episodic Residual codes; unclassified (8 sources) Obstructive sleep apnea syndrome; Translations: [Obstructive sleep apnea (adult) (pediatric)] 07-20-2024 Chronic Residual codes; unclassified (1 source) Obstructive sleep apnea (adult) (pediatric); Translations: [Obstructive sleep apnea (adult) (pediatric)] Onset: 08-19-2024 Chronic Respiratory failure; insufficiency; arrest (adult) (20 sources) [id number] respiratory failure; Translations: [Acute and chronic respiratory failure with hypoxia] 06-27-2024 Chronic Rheumatoid arthritis and related disease (20 sources) Seronegative rheumatoid arthritis; Translations: [Rheumatoid arthritis without rheumatoid factor, unspecified site] Onset: 05-26-2024 01-16-2023 Chronic Septicemia (except in labor) (11 sources) Sepsis; Translations: [Sepsis, unspecified organism] Onset: 08-17-2024 08-01-2024 Episodic Thyroid disorders (20 sources) Hypothyroidism; Translations: [Hypothyroidism, unspecified] Onset: 05-03-2015 05-03-2015 Chronic Unclassified (4 sources) I26.99 - Other pulmonary embolism without acute cor pulmonale Unclassified (1 source) Cough, unspecified; Translations: [Cough, unspecified] Onset: 07-22-2024 Viral infection (20 sources) COVID-19; Translations: [Pneumonia due to COVID-19 virus] 01-21-2021 Episodic Past or Other Problems Problem Classification Problem Date Documented Da te Episodic/Chronic Nausea and vomiting (20 sources) Nausea and vomiting; Translations: [Nausea with vomiting, unspecified] Onset: 05-03-2015 09-06-2018 Episodic Other aftercare (1 source) Other termite control representative (current) drug therapy; Translations: [High risk medication use] Onset: 12-30-2023 Episodic Other connective tissue disease (20 sources) Fibromyalgia; Translations: [Fibromyalgia] Onset: 05-03-2015 01-13-2021 Episodic Other lower respiratory disease (1 source) Dyspnea, unspecified; Translations: [Dyspnea, unspecified] Onset: 05-20-2024 Episodic Results Test Name Value Interpretation Reference Range Facility [id number] 08-23-2024 [facility] Misc. COMMENT Normal . [facility] Comment on above: Order Comment: [id number] 2THROMBOTIC RISK PROFILE 1 Result Comment: Test Ordered: [id number] Thrombotic Risk Profile IHomocyst(e)ine 7.3 umol/L CB Reference Range: 0.0-17.2Plasminogen 128 % BN Reference Range: 70-150Antithrombin Activity 200 [H ] % BN Reference Range: 75-135An elevated antithrombin activity is of no known clinicalsignificance. Direct Xa inhibitor anticoagulants such asrivaroxaban, apixaban and edoxaban will lead to spuriouslyelevated antithrombin activity levels possibly masking adeficiency.Protein C-Functional 141 % BN Reference Range: 73-180Protein S, Free 124 % BN Reference Range: 61-136Act.Prt.C Resist. 1.7 [L ] ratio BN Reference Range: 2.2-3.5A low activated protein C resistance (APCR) is a riskfactor for venous thrombosis and is a screen for the FactorV Leiden mutation. Consider molecular analysis for thismutation. Other causes for abnormal APCR are uncommon andinclude other rare mutations in the Factor V molecule, and certain drug therapies, including thalidomidetherapy, presence of a lupus anticoagulant, increasedFactor VIII levels, and autoantibodies against activatedprotein C.Factor V Leiden Comment [A ] TG Reference Range: .Result: c.1601G>A (p.[id number]) - Detected, HeterozygousThis result is associated with a 6- to 8-fold increased risk forvenous thromboembolism. See Additional Clinical Information andComments.Additional Clinical Information: Venous thromboembolism is a multifactorial diseaseinfluenced by genetic, environmental, and circumstantialrisk factors. The c.1601G>A (p. [id number]) variant in theF5 gene, commonly referred to as Factor V Leiden, is agenetic risk factor for venous thromboembolism.Heterozygous carriers of this variant have a 6- to 8-foldincreased risk for venous thromboembolism. Individualshomozygous for this variant (ie, with a copy of the varianton each chromosome) have an approximately 80-fold increasedrisk for venous thromboembolism. Individuals who carry aiden c.*97G>A variant in the F2 gene and Factor V Leiden havean approximately 20-fold increased risk for venousthromboembolism. Risks are likely to be even higher in morecomplex genotype combinations involving the F2 c.*97G>Avariant and Factor V Leiden (PMID: [id number]). Additionalrisk factors include but are not limited to: deficiency ofprotein C, protein S, or antithrombin III, age, male sex,personal or family history of deep vein thromboembolism,smoking, surgery, prolonged immobilization, malignantneoplasm, tamoxifen treatment, raloxifene treatment, oralcontraceptive use, hormone replacement therapy, andpregnancy. Management of thrombotic risk and thromboticevents should follow established guidelines and fit theclinical circumstance. This result cannot predict theoccurrence or recurrence of a thrombotic event.Comment: Genetic counseling is recommended to discuss thepotential clinical implications of positive results, aswell as recommendations for testing family members. Genetic Coordinators are available for health careproviders to discuss results at [phone] ([phone]).Test Details: Variant Analyzed: c.1601G>A (p. [id number]), referredto as Factor V LeidenMethods/Limitations: DNA analysis of the F5 gene (NM_000130.5) wasperformed by PCR amplification followed by electrophoresis.The diagnostic sensitivity is >99%. Results must becombined with clinical information for the most accurateinterpretation. Molecular-based testing is highly accurate,but as in any laboratory test, diagnostic errors may occur.False positive or false negative results may occur forreasons that include genetic variants, blood transfusions,bone marrow transplantation, somatic or tissue-specificmosaicism, mislabeled samples, or erroneous representationof family relationships. This test was developed and its performancecharacteristics determined by [facility]. It has not beencleared or approved by the Food and Drug Administration.References: Nino Rogers, Sophia DOMINIQUE, Austin R, Chayito WW, Ortiz JH;[facility] Professional Practice and Guidelines Committee.Addendum: [employer] consensusstatement on factor V Leiden mutation testing. July Med.2020May 11. doi: 10.1038/j49631-549-29594-r. PMID:40794370. Luigi REHMAN. Factor V Leiden Thrombophilia. 1998July 20(Updated 2017Mar 12). In: Haja MP, Denise HH, Darius RA,et al., editors. [employer](R) (Internet). [place] ([place]):[facility], [place]; 4552-4069. Availablefrom: https://www.ncbi.nlm.nih.gov/books/PEP4578/ Jethro S, Sophia DOMINIQUE, Nilson X, Jasen B, Rufino EB, Lyn P,Beto CS; [facility] Laboratory Bearing Maker Committee.Venous thromboembolism laboratory testing (factor V Leidenand factor II c. *97G>A), 2018 update: a technical standardof the [employer]([facility]). July Med. 2018 Feb;20(12): 4347-2495. doi:10.1038/o78902-008-1495-w. Epub 2017Dec 11. PMID: 66956525.Reviewed by: Comment TG Reference Range: .Technical Component performed at [facility] RTPProfessional Component performed by:Leander Avery, PhD, [id number], [facility], [address] [address]MEO-XA 38.3 sec BN Reference Range: 0.0-43.5dRVVT 71.3 [H ] sec BN Reference Range: 0.0-47.0dRVVT Mix 57.3 [H ] sec BN Reference Range: 0.0-40.4dRVVT Confirm 0.8 ratio BN Reference Range: 0.8-1.2Lupus Reflex Interpretation Comment: BN Reference Range: .No lupus anticoagulant was detected. PTT-LA and dRVVT results areconsistent with specific inhibitors to one or more common pathway factors(X, V, II or fibrinogen). The dPT was extended but the dPT confirmatoryratio was normal. As antibody titers may fluctuate with time, repeattesting may be indicated and ideally should be performed in the absence ofanticoagulant therapy.Dilute Prothrombin Time(dPT) 51.8 [H ] sec BN Reference Range: 0.0-47.6dPT Confirm Ratio 0.89 Ratio BN Reference Range: 0.00-1.34Anticardiolipin Ab,IgG,Qn <9 GPL U/mL CB Reference Range: 0-14 Negative: <15 Indeterminate: 15 - 20 Low-Med Positive: >20 - 80 High Positive: >80Anticardiolipin Ab,IgM,Qn 13 [H ] MPL U/mL CB Reference Range: 0-12 Negative: <13 Indeterminate: 13 - 20 Low-Med Positive: >20 - 80 High Positive: >80Beta-2 Glycoprotein I Ab, IgG <9 CB Units of Measure: GPI IgG units Reference Range: 0-20The reference interval reflects a 3SD or 99th percentileinterval, which is thought to represent a potentiallyclinically significant result in accordance with theInternational Consensus Statement on the classificationcriteria for definitive antiphospholipid syndrome (APS). JThromb Haem 2006;4:295-306.Beta-2 Glycoprotein I Ab, IgM <9 CB Units of Measure: GPI IgM units Reference Range: 0-32The reference interval reflects a 3SD or 99th percentileinterval, which is thought to represent a potentiallyclinically significant result in accordance with theInternational Consensus Statement on the classificationcriteria for definitive antiphospholipid syndrome (APS). JThromb Haem 2006;4:295-306.Factor II, DNA Analysis Comment TG Reference Range: .Result: c.*97G>A - Not DetectedThis result is not associated with an increased risk for venousthromboembolism. See Additional Clinical Information andComments.Additional Clinical Information:Venous thromboembolism is a multifactorial disease influenced bygenetic, environmental, and circumstantial risk factors. The c.*97G>Avariant in the F2 gene is a genetic risk factor for venousthromboembolism. Heterozygous carriers have a 2- to 4-fold increasedrisk for venous thromboembolism. Homozygotes for the c.*97G>A variantare rare. The annual risk of VTE in homozygotes has been reported mikayla 1.1%/year. Individuals who carry both a c.*97G>A variant in theF2 gene and a c.1601G>A (p. [id number]) variant in the F5 gene(commonly referred to as Factor V Leiden) have an approximately 20-fold increased risk for venous thromboembolism. Risks are likely mikayla even higher in more complex genotype combinations involving theF2 c.*97G>A variant and Factor V Leiden (PMID: 48239415). Additionalrisk factors include but are not limited to: deficiency of protein C,protein S, or antithrombin III, age, male sex, personal or familyhistory of deep vein thromboembolism, smoking, surgery, prolongedimmobilization, malignant neoplasm, tamoxifen treatment, raloxifenetreatment, oral contraceptive use, hormone replacement therapy, andpregnancy. Management of thrombotic risk and thrombotic events shouldfollow established guidelines and fit the clinical circumstance. Thisresult cannot predict the occurrence or recurrence of a thromboticevent.Comments:Genetic counseling is recommended to discuss the potential clinicalimplications of positive results, as well as recommendations fortesting family members.Genetic Coordinators are available for health care providers to discussresults at [phone] ([phone] Details:Variant analyzed: c.*97G>A, previously referred to as [id number]/Limitations:DNA analysis of the F2 gene (NM_[id number]) was performed by PCRamplification followed by restriction enzyme analysis. The diagnosticsensitivity is >99%. Results must be combined with clinicalinformation for the most accurate interpretation. Molecular-basedtesting is highly accurate, but as in any laboratory test, diagnosticerrors may occur. False positive or false negative results may occurfor reasons that include genetic variants, blood transfusions, bonemarrow transplantation, somatic or tissue-specific mosaicism,mislabeled samples, or erroneous representation of familyrelationships.This test was developed and its performance characteristics determinedby [facility]. It has not been cleared or approved by the Food and DrugAdministration.References:Nino Rogers, Sophia DOMINIQUE, Austin R, Chayito WW, Ortiz JH; [facility]G ProfessionalPractice and Guidelines Committee. Addendum: [employer] [employer] consensus statement on factor V Leiden mutationtesting. July Med. 2020May 11. doi: 10.1038/[id number]-g.PMID: 65236319.Luigi REHMAN. Prothrombin Thrombophilia. 2005Sep 30[Updated 2020Apr 12]. In: Haja MP, Denise HH, Darius RA, et al.,editors. Mykel(R) [Internet]. [place] ([place]): [facility]; 8277-7499. Available from:https://www.ncbi.nlm.nih.gov/books/ZDU5848/Jethro S, Sophia DOMINIQUE, Nilson X, Jasen B, Rufino EB, Lyn P, Beto CS;[facility] Laboratory Bearing Maker Committee. Venous thromboembolismlaboratory testing (factor V Leiden and factor II c.*97G>A),2018 update: a technical standard of the [employer] ([employer]). July Med. 2018 Feb;20(12):1446-7457.doi: 10.1038/[id number]-h. Ep2017Dec 11. PMID: 48138727.Reviewed by: Jaclyn TG Reference Range: .Technical Component performed at [facility] RTPProfessional Component performed by:Pebbles Mcqueen, PhD, [id number], [facility], [address] [facility] [id number] at: [facility] [address] [id number] Director: Chilo Lloyd PhD, Phone: [phone] at: - [facility] [id number] Director: Obdulio Ivory MD, Phone: [phone] at: - [facility] [id number] [place], [place] [id number] Director: Nadege Acuña [facility], Phone: [phone] Performed By: #### L 3410.9992 ####[facility] [address] [place], [address] Absolute lymphocyte countOrd ered By: Tamir Campos on 08-18-2024 Lymphocytes Auto (Unsp spec) [#/Vol] 0.71 10*3/uL Low 0.83-4.51 [facility] Automated lymphocyte count a s percentage of total leukocytesOrdered By: Tamir Campos on 08-18-2024 Lymphocytes/100 WBC Auto (Unsp spec) 5.1 % Low 19-41 [facility] Basophil percentageOrdered B y: Tamri Campos on 08-18-2024 Basophils/100 WBC (Bld) 0.4 % 0-[address] [facility] CBC W/Diff, Automatedon 08-07-2024 Absolute Lymph 0.71 X10 3/uL Low 0.83-4.51 [facility] Comment on above: Performed By: #### L 101.9900, L300.8000, L501.6710, L503.6030, L100.0100, L504.2610 ####[facility] [address] [place], [address] Absolute Neut 11.3 X10 3/uL High 2.0-7.7 [facility] Comment on above: Performed By: #### L 101.9900, L300.8000, L501.6710, L503.6030, L100.0100, L504.2610 ####[facility] [address] [place], [address] Basophils/100 WBC (Bld) 0.4 % Normal 0-[address] [facility] Comment on above: Performed By: #### L 101.9900, L300.8000, L501.6710, L503.6030, L100.0100, L504.2610 ####[facility] [address] [place], [address] Eosinophils/100 WBC (Bld) 4.1 % Normal 0-5 [facility] Comment on above: Performed By: #### L 101.9900, L300.8000, L501.6710, L503.6030, L100.0100, L504.2610 ####[facility] [address] [place], [address] Erythrocyte distribution width (RBC) [Ratio] 15.3 % High 11.6-14.6 [facility] Comment on above: Performed By: #### L 101.9900, L300.8000, L501.6710, L503.6030, L100.0100, L504.2610 ####[facility] [address] [place], [address] Hematocrit (Bld) [Volume fraction] 37.3 % Normal 37-47 [facility] Comment on above: Performed By: #### L 101.9900, L300.8000, L501.6710, L503.6030, L100.0100, L504.2610 ####[facility] [address] [place], [address] Hemoglobin (Bld) [Mass/Vol] 11.5 g/dL Low 12.0-15.0 [facility] Comment on above: Performed By: #### L 101.9900, L300.8000, L501.6710, L503.6030, L100.0100, L504.2610 ####[facility] [address] [place], [address] IG% 0.500 Normal 0.0-0.9 [facility] Comment on above: Result Comment: IG% - Immature Granulocytes (promyelocytes, myelocytes andmetamyelocytes) > 1% indicates that a LEFT SHIFT is Present. Performed By: #### L 101.9900, L300.8000, L501.6710, L503.6030, L100.0100, L504.2610 ####[facility] [address] [place], [address] Lymphocytes/100 WBC (Bld) 5.1 % Low 19-41 [facility] Comment on above: Performed By: #### L 101.9900, L300.8000, L501.6710, L503.6030, L100.0100, L504.2610 ####[facility] [address] [place], [address] MCH (RBC) [Entitic mass] 29.9 pg Normal 27.0-32.0 [facility] Comment on above: Performed By: #### L 101.9900, L300.8000, L501.6710, L503.6030, L100.0100, L504.2610 ####[facility] [address] [place], [address] MCHC (RBC) [Mass/Vol] 30.8 g/dL Low 32-36 [facility] Comment on above: Performed By: #### L 101.9900, L300.8000, L501.6710, L503.6030, L100.0100, L504.2610 ####[facility] [address] [place], [address] MCV (RBC) [Entitic vol] 97.1 fL Normal 81-[address] [facility] Comment on above: Performed By: #### L 101.9900, L300.8000, L501.6710, L503.6030, L100.0100, L504.2610 ####[facility] [address] [place], [address] Monocytes/100 WBC (Bld) 8.2 % Normal 0-[address] [facility] Comment on above: Performed By: #### L 101.9900, L300.8000, L501.6710, L503.6030, L100.0100, L504.2610 ####[facility] [address] [place], [address] Neutrophils/100 WBC (Bld) 81.7 % High 47-70 [facility] Comment on above: Performed By: #### L 101.9900, L300.8000, L501.6710, L503.6030, L100.0100, L504.2610 ####[facility] [address] [place], [address] Nucleated RBC (Bld) [#/Vol] 0 10*3/uL Normal 0-5 [facility] Comment on above: Performed By: #### L 101.9900, L300.8000, L501.6710, L503.6030, L100.0100, L504.2610 ####[facility] [address] [place], [address] Platelet mean volume (Bld) [Entitic vol] 10.1 fL Normal 6.2-12.0 [facility] Comment on above: Performed By: #### L 101.9900, L300.8000, L501.6710, L503.6030, L100.0100, L504.2610 ####[facility] [address] [place], [address] Platelets (Bld) [#/Vol] 243 10*3/uL Normal 150-450 [facility] Comment on above: Performed By: #### L 101.9900, L300.8000, L501.6710, L503.6030, L100.0100, L504.2610 ####[facility] [address] [place], [address] RBC (Bld) [#/Vol] 3.84 10*6/uL Low 4.2-5.4 [facility] Comment on above: Performed By: #### L 101.9900, L300.8000, L501.6710, L503.6030, L100.0100, L504.2610 ####[facility] [address] [place], [address] RDW SD 54.0 fl High 35.1-43.9 [facility] Comment on above: Performed By: #### L 101.9900, L300.8000, L501.6710, L503.6030, L100.0100, L504.2610 ####[facility] [address] [place], [address] WBC (Bld) [#/Vol] 13.9 10*3/uL High 4.4-11.0 [facility] Comment on above: Performed By: #### L 101.9900, L300.8000, L501.6710, L503.6030, L100.0100, L504.2610 ####[facility] [address] [place], [address] CRPon 08-18-2024 C-REACTIVE PROT 24.20 mg/L High 0.0-3.0 [facility] Comment on above: Performed By: #### L 101.9900, L300.8000, L501.6710, L503.6030, L100.0100, L504.2610 ####[facility] [address] [place], [place], [address] D-Dimer Quantitative (DVT/PE )on 08-18-2024 D-DIMER QUANT 0.93 FEU/ug/m Invalid Interpretation Code 0.27-0.49 [facility] Comment on above: Order Comment: CRITI MAGDALENE VALUE CALLED TO ANALI SANTOS08/18/24 Papi Pan.RESULTS READ BACK BY SAME. Result Comment: D-Di quiana ELEVATED (>0.49): Additional studies and clinicalassessments are indicated to conclude diagnosis of:Deep Vein Thrombosis (DVT) or Pulmonary Embolism (PE) Performed By: #### L 101.9900, L300.8000, L501.6710, L503.6030, L100.0100, L504.2610 ####[facility] [address] [place], [place], [address] Eosinophil percentageOrdered By: Tamir Campos on 08-18-2024 Eosinophils/100 WBC (Bld) 4.1 % 0-5 [facility] Erythrocyte Sed Rateon 08-18 SED RATE 26 mm/hr Normal 0-30 [facility] Comment on above: Performed By: #### L 101.9900, L300.8000, L501.6710, L503.6030, L100.0100, L504.2610 ####[facility] [address] [place], [address] Erythrocyte distribution wid th ratioOrdered By: Tamir Campos on 08-18-2024 Erythrocyte distribution width (RBC) [Ratio] 15.3 % High 11.6-14.6 [facility] Erythrocyte distribution wid th standard deviationOrdered By: Tamir Campos on 08-18-2024 Erythrocyte distribution width (RBC) [Ratio] 54.0 fl High 35.1-43.9 [facility] Erythrocyte sedimentation ra teOrdered By: Tamir Campos on 08-18-2024 ESR (Bld) [Velocity] 26 mm/h 0-30 [facility] Hematocrit Auto (Bld) [Volum e fraction]Ordered By: Tamir Andres on 08-18-2024 Hematocrit (Bld) [Volume fraction] 37.3 % 37-47 [facility] Hemoglobin measurementOrdere d By: Tamir Campos on 08-18-2024 Hemoglobin (Bld) [Mass/Vol] 11.5 g/dL Low 12.0-15.0 [facility] Immature granulocytes/100 WB C Auto (Bld)Ordered By: Tamir Campos on 08-18-2024 Immature granulocytes/100 WBC (Bld) 0.500 % 0.0-0.9 [facility] Iron measurement (mass/mass) Ordered By: Tamir Campos on 08-18-2024 Iron (Unsp spec) [Mass/Mass] 56 ug/dL 50-170 [facility] Iron+Iron Binding Capacityon 08-18-2024 TIBC 235 ug/dL Low 250-450 [facility] Comment on above: Performed By: #### L 101.9900, L300.8000, L501.6710, L503.6030, L100.0100, L504.2610 ####[facility] [address] [place], [address] LDHon 08-18-2024 LDH 269 U/L High 84-246 [facility] Comment on above: Order Comment: 1 Performed By: #### L 101.9900, L300.8000, L501.6710, L503.6030, L100.0100, L504.2610 ####[facility] [address] [place], [address] MCV (mean corpuscular volume ) determinationOrdered By: Tamir Campos on 08-18-2024 MCV (RBC) [Entitic vol] 97.1 fL 81-[address] [facility] Mean corpuscular hemoglobin (MCH) determinationOrdered By: Tamir Campos on 08-18-2024 MCH (RBC) [Entitic mass] 29.9 pg 27.0-32.0 [facility] Monocyte percentageOrdered B y: Tamir Campos on 08-18-2024 Monocytes/100 WBC (Bld) 8.2 % 0-[address] [facility] Neutrophil percentageOrdered By: Tamir Campos on 08-18-2024 Neutrophils/100 WBC (Bld) 81.7 % High 47-70 [facility] No Panel InformationOrdered By: Tamir Campos on 08-18-2024 179 ug/dL Low 228-428 [facility] Oncology Visit Reporton 08-07 Oncology Visit Report Normal [facility] Platelet countOrdered By: Vanita Campos on 08-18-2024 Platelets (Bld) [#/Vol] 243 10*3/uL 150-450 [facility] RBC Auto (Bld) [#/Vol]Ordere d By: Tamir Campos on 08-18-2024 RBC (Bld) [#/Vol] 3.84 10*6/uL Low 4.2-5.4 [facility] Serum or plasma C reactive p rotein measurement (mass/volume)Ordered By: Tamir Campos on 08-18-2024 CRP [Mass/Vol] 24.20 mg/L High 0.0-3.0 [facility] Serum or plasma iron saturat ion measurement (mass fraction)Ordered By: Tamir Campos on 08-18-2024 Iron saturation [Mass fraction] 23.8 % 13-59 [facility] White blood cell (WBC) count Ordered By: Tamir Campos on 08-18-2024 WBC (Bld) [#/Vol] 13.9 10*3/uL High 4.4-11.0 [facility] Basic Metabolic Profile (BMP )on 08-11-2024 BUN Normal 4-19 [facility] Comment on above: Result Comment: Canc elled via OM: Order cancelled - Patient discharged Performed By: #### L 100.0100, L500.2500 ####[facility] [address] [place], [address] BUN/CRE Normal 10-20 [facility] Comment on above: Result Comment: Canc elled via OM: Order cancelled - Patient discharged Performed By: #### L 100.0100, L500.2500 ####[facility] [address] [place], [address] Calcium Normal 7.6-11.0 [facility] Comment on above: Result Comment: Canc elled via OM: Order cancelled - Patient discharged Performed By: #### L 100.0100, L500.2500 ####[facility] [address] [place], [address] CL Normal 98-108 [facility] Comment on above: Result Comment: Canc elled via OM: Order cancelled - Patient discharged Performed By: #### L 100.0100, L500.2500 ####[facility] [address] [place], [address] CO2 Normal 21.0-32.0 [facility] Comment on above: Result Comment: Canc elled via OM: Order cancelled - Patient discharged Performed By: #### L 100.0100, L500.2500 ####[facility] [address] [place], [address] CREAT,SERUM Normal 0.70-1.20 [facility] Comment on above: Result Comment: Canc elled via OM: Order cancelled - Patient discharged Performed By: #### L 100.0100, L500.2500 ####[facility] [address] [place], [address] eGFR Normal >60 [facility] Comment on above: Result Comment: Canc elled via OM: Order cancelled - Patient discharged Performed By: #### L 100.0100, L500.2500 ####[facility] [address] [place], [address] GAP Normal 5-15 [facility] Comment on above: Result Comment: Canc elled via OM: Order cancelled - Patient discharged Performed By: #### L 100.0100, L500.2500 ####[facility] [address] [place], [address] GLU Normal 70-99 [facility] Comment on above: Result Comment: Canc elled via OM: Order cancelled - Patient discharged Performed By: #### L 100.0100, L500.2500 ####[facility] [address] [place], [address] Potassium Normal 3.3-5.1 [facility] Comment on above: Result Comment: Canc elled via OM: Order cancelled - Patient discharged Performed By: #### L 100.0100, L500.2500 ####[facility] [address] [place], [address] Basic Metabolic Profile (BMP) Normal 133-145 [facility] Comment on above: Result Comment: Canc elled via OM: Order cancelled - Patient discharged Performed By: #### L 100.0100, L500.2500 ####[facility] [address] [place], [address] CBC W/Diff, Automatedon 06-0 5-2024 Absolute Neut Normal 2.0-7.7 [facility] Comment on above: Result Comment: Canc elled via OM: Order cancelled - Patient discharged Performed By: #### L 100.0100, L500.2500 ####[facility] [address] [place], [address] HCT Normal 37-47 [facility] Comment on above: Result Comment: Canc elled via OM: Order cancelled - Patient discharged Performed By: #### L 100.0100, L500.2500 ####[facility] [address] [place], [address] HGB Normal 12.0-15.0 [facility] Comment on above: Result Comment: Canc elled via OM: Order cancelled - Patient discharged Performed By: #### L 100.0100, L500.2500 ####[facility] [address] [place], [address] MCH Normal 27.0-32.0 [facility] Comment on above: Result Comment: Canc elled via OM: Order cancelled - Patient discharged Performed By: #### L 100.0100, L500.2500 ####[facility] [address] [place], [address] MCHC Normal 32-36 [facility] Comment on above: Result Comment: Canc elled via OM: Order cancelled - Patient discharged Performed By: #### L 100.0100, L500.2500 ####[facility] [address] [place], [address] MCV Normal 81-99 [facility] Comment on above: Result Comment: Canc elled via OM: Order cancelled - Patient discharged Performed By: #### L 100.0100, L500.2500 ####[facility] [address] [place], [address] NEUT% Normal 47-70 [facility] Comment on above: Result Comment: Canc elled via OM: Order cancelled - Patient discharged Performed By: #### L 100.0100, L500.2500 ####[facility] [address] [place], [address] PLT Normal 150-450 [facility] Comment on above: Result Comment: Canc elled via OM: Order cancelled - Patient discharged Performed By: #### L 100.0100, L500.2500 ####[facility] [address] [place], [address] RBC Normal 4.2-5.4 [facility] Comment on above: Result Comment: Canc elled via OM: Order cancelled - Patient discharged Performed By: #### L 100.0100, L500.2500 ####[facility] [address] [place], [address] RDW CV Normal 11.6-14.6 [facility] Comment on above: Result Comment: Canc elled via OM: Order cancelled - Patient discharged Performed By: #### L 100.0100, L500.2500 ####[facility] [address] [place], [address] RDW SD Normal 35.1-43.9 [facility] Comment on above: Result Comment: Canc elled via OM: Order cancelled - Patient discharged Performed By: #### L 100.0100, L500.2500 ####[facility] [address] [place], [address] WBC Normal 4.4-11.0 [facility] Comment on above: Result Comment: Canc elled via OM: Order cancelled - Patient discharged Performed By: #### L 100.0100, L500.2500 ####[facility] [address] [place], [address] Basic Metabolic Profile (BMP )on 08-10-2024 BUN Normal 4-19 [facility] Comment on above: Result Comment: Canc elled via OM: Order cancelled - Patient discharged Performed By: #### L 100.0100, L500.2500 ####[facility] [address] [place], [address] BUN/CRE Normal 10-20 [facility] Comment on above: Result Comment: Canc elled via OM: Order cancelled - Patient discharged Performed By: #### L 100.0100, L500.2500 ####[facility] [address] [place], [address] Calcium Normal 7.6-11.0 [facility] Comment on above: Result Comment: Canc elled via OM: Order cancelled - Patient discharged Performed By: #### L 100.0100, L500.2500 ####[facility] [address] [place], [address] CL Normal 98-108 [facility] Comment on above: Result Comment: Canc elled via OM: Order cancelled - Patient discharged Performed By: #### L 100.0100, L500.2500 ####[facility] [address] [place], [address] CO2 Normal 21.0-32.0 [facility] Comment on above: Result Comment: Canc elled via OM: Order cancelled - Patient discharged Performed By: #### L 100.0100, L500.2500 ####[facility] [address] [place], [address] CREAT,SERUM Normal 0.70-1.20 [facility] Comment on above: Result Comment: Canc elled via OM: Order cancelled - Patient discharged Performed By: #### L 100.0100, L500.2500 ####[facility] [address] [place], [address] eGFR Normal >60 [facility] Comment on above: Result Comment: Canc elled via OM: Order cancelled - Patient discharged Performed By: #### L 100.0100, L500.2500 ####[facility] [address] [place], [address] GAP Normal 5-15 [facility] Comment on above: Result Comment: Canc elled via OM: Order cancelled - Patient discharged Performed By: #### L 100.0100, L500.2500 ####[facility] [address] [place], [address] GLU Normal 70-99 [facility] Comment on above: Result Comment: Canc elled via OM: Order cancelled - Patient discharged Performed By: #### L 100.0100, L500.2500 ####[facility] [address] [place], [address] Potassium Normal 3.3-5.1 [facility] Comment on above: Result Comment: Canc elled via OM: Order cancelled - Patient discharged Performed By: #### L 100.0100, L500.2500 ####[facility] [address] [place], [address] Basic Metabolic Profile (BMP) Normal 133-145 [facility] Comment on above: Result Comment: Canc elled via OM: Order cancelled - Patient discharged Performed By: #### L 100.0100, L500.2500 ####[facility] [address] [place], [address] CBC W/Diff, Automatedon 06-0 -2024 Absolute Neut Normal 2.0-7.7 [facility] Comment on above: Result Comment: Canc elled via OM: Order cancelled - Patient discharged Performed By: #### L 100.0100, L500.2500 ####[facility] [address] [place], [address] HCT Normal 37-47 [facility] Comment on above: Result Comment: Canc elled via OM: Order cancelled - Patient discharged Performed By: #### L 100.0100, L500.2500 ####[facility] [address] [place], [address] HGB Normal 12.0-15.0 [facility] Comment on above: Result Comment: Canc elled via OM: Order cancelled - Patient discharged Performed By: #### L 100.0100, L500.2500 ####[facility] [address] [place], [address] MCH Normal 27.0-32.0 [facility] Comment on above: Result Comment: Canc elled via OM: Order cancelled - Patient discharged Performed By: #### L 100.0100, L500.2500 ####[facility] [address] [place], [address] MCHC Normal 32-36 [facility] Comment on above: Result Comment: Canc elled via OM: Order cancelled - Patient discharged Performed By: #### L 100.0100, L500.2500 ####[facility] [address] [place], [address] MCV Normal 81-99 [facility] Comment on above: Result Comment: Canc elled via OM: Order cancelled - Patient discharged Performed By: #### L 100.0100, L500.2500 ####[facility] [address] [place], [address] NEUT% Normal 47-70 [facility] Comment on above: Result Comment: Canc elled via OM: Order cancelled - Patient discharged Performed By: #### L 100.0100, L500.2500 ####[facility] [address] [place], [address] PLT Normal 150-450 [facility] Comment on above: Result Comment: Canc elled via OM: Order cancelled - Patient discharged Performed By: #### L 100.0100, L500.2500 ####[facility] [address] [place], [address] RBC Normal 4.2-5.4 [facility] Comment on above: Result Comment: Canc elled via OM: Order cancelled - Patient discharged Performed By: #### L 100.0100, L500.2500 ####[facility] [address] [place], [address] RDW CV Normal 11.6-14.6 [facility] Comment on above: Result Comment: Canc elled via OM: Order cancelled - Patient discharged Performed By: #### L 100.0100, L500.2500 ####[facility] [address] [place], [address] RDW SD Normal 35.1-43.9 [facility] Comment on above: Result Comment: Canc elled via OM: Order cancelled - Patient discharged Performed By: #### L 100.0100, L500.2500 ####[facility] [address] [place], [address] WBC Normal 4.4-11.0 [facility] Comment on above: Result Comment: Canc elled via OM: Order cancelled - Patient discharged Performed By: #### L 100.0100, L500.2500 ####[facility] [address] [place], [address] Basic Metabolic Profile (BMP )on 08-09-2024 BUN Normal 4-19 [facility] Comment on above: Result Comment: Canc elled via OM: Order cancelled - Patient discharged Performed By: #### L 100.0100, L500.2500 ####[facility] [address] [place], [address] BUN/CRE Normal 10-20 [facility] Comment on above: Result Comment: Canc elled via OM: Order cancelled - Patient discharged Performed By: #### L 100.0100, L500.2500 ####[facility] [address] [place], [address] Calcium Normal 7.6-11.0 [facility] Comment on above: Result Comment: Canc elled via OM: Order cancelled - Patient discharged Performed By: #### L 100.0100, L500.2500 ####[facility] [address] [place], [address] CL Normal 98-108 [facility] Comment on above: Result Comment: Canc elled via OM: Order cancelled - Patient discharged Performed By: #### L 100.0100, L500.2500 ####[facility] [address] [place], [address] CO2 Normal 21.0-32.0 [facility] Comment on above: Result Comment: Canc elled via OM: Order cancelled - Patient discharged Performed By: #### L 100.0100, L500.2500 ####[facility] [address] [place], [address] CREAT,SERUM Normal 0.70-1.20 [facility] Comment on above: Result Comment: Canc elled via OM: Order cancelled - Patient discharged Performed By: #### L 100.0100, L500.2500 ####[facility] [address] [place], [address] eGFR Normal >60 [facility] Comment on above: Result Comment: Canc elled via OM: Order cancelled - Patient discharged Performed By: #### L 100.0100, L500.2500 ####[facility] [address] [place], [address] GAP Normal 5-15 [facility] Comment on above: Result Comment: Canc elled via OM: Order cancelled - Patient discharged Performed By: #### L 100.0100, L500.2500 ####[facility] [address] [place], [address] GLU Normal 70-99 [facility] Comment on above: Result Comment: Canc elled via OM: Order cancelled - Patient discharged Performed By: #### L 100.0100, L500.2500 ####[facility] [address] [place], [address] Potassium Normal 3.3-5.1 [facility] Comment on above: Result Comment: Canc elled via OM: Order cancelled - Patient discharged Performed By: #### L 100.0100, L500.2500 ####[facility] [address] [place], [address] Basic Metabolic Profile (BMP) Normal 133-145 [facility] Comment on above: Result Comment: Canc elled via OM: Order cancelled - Patient discharged Performed By: #### L 100.0100, L500.2500 ####[facility] [address] [place], [address] CBC W/Diff, Automatedon 06-0 3-2024 Absolute Neut Normal 2.0-7.7 [facility] Comment on above: Result Comment: Canc elled via OM: Order cancelled - Patient discharged Performed By: #### L 100.0100, L500.2500 ####[facility] [address] [place], [address] HCT Normal 37-47 [facility] Comment on above: Result Comment: Canc elled via OM: Order cancelled - Patient discharged Performed By: #### L 100.0100, L500.2500 ####[facility] [address] [place], [address] HGB Normal 12.0-15.0 [facility] Comment on above: Result Comment: Canc elled via OM: Order cancelled - Patient discharged Performed By: #### L 100.0100, L500.2500 ####[facility] [address] [place], [address] MCH Normal 27.0-32.0 [facility] Comment on above: Result Comment: Canc elled via OM: Order cancelled - Patient discharged Performed By: #### L 100.0100, L500.2500 ####[facility] [address] [place], [address] MCHC Normal 32-36 [facility] Comment on above: Result Comment: Canc elled via OM: Order cancelled - Patient discharged Performed By: #### L 100.0100, L500.2500 ####[facility] [address] [place], [address] MCV Normal 81-99 [facility] Comment on above: Result Comment: Canc elled via OM: Order cancelled - Patient discharged Performed By: #### L 100.0100, L500.2500 ####[facility] [address] [place], [address] NEUT% Normal 47-70 [facility] Comment on above: Result Comment: Canc elled via OM: Order cancelled - Patient discharged Performed By: #### L 100.0100, L500.2500 ####[facility] [address] [place], [address] PLT Normal 150-450 [facility] Comment on above: Result Comment: Canc elled via OM: Order cancelled - Patient discharged Performed By: #### L 100.0100, L500.2500 ####[facility] [address] [place], [address] RBC Normal 4.2-5.4 [facility] Comment on above: Result Comment: Canc elled via OM: Order cancelled - Patient discharged Performed By: #### L 100.0100, L500.2500 ####[facility] [address] [place], [address] RDW CV Normal 11.6-14.6 [facility] Comment on above: Result Comment: Canc elled via OM: Order cancelled - Patient discharged Performed By: #### L 100.0100, L500.2500 ####[facility] [address] [place], [address] RDW SD Normal 35.1-43.9 [facility] Comment on above: Result Comment: Canc elled via OM: Order cancelled - Patient discharged Performed By: #### L 100.0100, L500.2500 ####[facility] [address] [place], [address] WBC Normal 4.4-11.0 [facility] Comment on above: Result Comment: Canc elled via OM: Order cancelled - Patient discharged Performed By: #### L 100.0100, L500.2500 ####[facility] [address] [place], [address] Basic Metabolic Profile (BMP )on 08-08-2024 BUN Normal 4-19 [facility] Comment on above: Result Comment: Canc elled via OM: Order cancelled - Patient discharged Performed By: #### L 100.0100, L500.2500 ####[facility] [address] [place], [address] BUN/CRE Normal 10-20 [facility] Comment on above: Result Comment: Canc elled via OM: Order cancelled - Patient discharged Performed By: #### L 100.0100, L500.2500 ####[facility] [address] [place], [address] Calcium Normal 7.6-11.0 [facility] Comment on above: Result Comment: Canc elled via OM: Order cancelled - Patient discharged Performed By: #### L 100.0100, L500.2500 ####[facility] [address] [place], [address] CL Normal 98-108 [facility] Comment on above: Result Comment: Canc elled via OM: Order cancelled - Patient discharged Performed By: #### L 100.0100, L500.2500 ####[facility] [address] [place], [address] CO2 Normal 21.0-32.0 [facility] Comment on above: Result Comment: Canc elled via OM: Order cancelled - Patient discharged Performed By: #### L 100.0100, L500.2500 ####[facility] [address] [place], [address] CREAT,SERUM Normal 0.70-1.20 [facility] Comment on above: Result Comment: Canc elled via OM: Order cancelled - Patient discharged Performed By: #### L 100.0100, L500.2500 ####[facility] [address] [place], [address] eGFR Normal >60 [facility] Comment on above: Result Comment: Canc elled via OM: Order cancelled - Patient discharged Performed By: #### L 100.0100, L500.2500 ####[facility] [address] [place], [address] GAP Normal 5-15 [facility] Comment on above: Result Comment: Canc elled via OM: Order cancelled - Patient discharged Performed By: #### L 100.0100, L500.2500 ####[facility] [address] [place], [address] GLU Normal 70-99 [facility] Comment on above: Result Comment: Canc elled via OM: Order cancelled - Patient discharged Performed By: #### L 100.0100, L500.2500 ####[facility] [address] [place], [address] Potassium Normal 3.3-5.1 [facility] Comment on above: Result Comment: Canc elled via OM: Order cancelled - Patient discharged Performed By: #### L 100.0100, L500.2500 ####[facility] [address] [place], [address] Basic Metabolic Profile (BMP) Normal 133-145 [facility] Comment on above: Result Comment: Canc elled via OM: Order cancelled - Patient discharged Performed By: #### L 100.0100, L500.2500 ####[facility] [address] [place], [address] CBC W/Diff, Automatedon 06-0 -2024 Absolute Neut Normal 2.0-7.7 [facility] Comment on above: Result Comment: Canc elled via OM: Order cancelled - Patient discharged Performed By: #### L 100.0100, L500.2500 ####[facility] [address] [place], [address] HCT Normal 37-47 [facility] Comment on above: Result Comment: Canc elled via OM: Order cancelled - Patient discharged Performed By: #### L 100.0100, L500.2500 ####[facility] [address] [place], [address] HGB Normal 12.0-15.0 [facility] Comment on above: Result Comment: Canc elled via OM: Order cancelled - Patient discharged Performed By: #### L 100.0100, L500.2500 ####[facility] [address] [place], [address] MCH Normal 27.0-32.0 [facility] Comment on above: Result Comment: Canc elled via OM: Order cancelled - Patient discharged Performed By: #### L 100.0100, L500.2500 ####[facility] [address] [place], [address] MCHC Normal 32-36 [facility] Comment on above: Result Comment: Canc elled via OM: Order cancelled - Patient discharged Performed By: #### L 100.0100, L500.2500 ####[facility] [address] [place], [address] MCV Normal 81-99 [facility] Comment on above: Result Comment: Canc elled via OM: Order cancelled - Patient discharged Performed By: #### L 100.0100, L500.2500 ####[facility] [address] [place], [address] NEUT% Normal 47-70 [facility] Comment on above: Result Comment: Canc elled via OM: Order cancelled - Patient discharged Performed By: #### L 100.0100, L500.2500 ####[facility] [address] [place], [address] PLT Normal 150-450 [facility] Comment on above: Result Comment: Canc elled via OM: Order cancelled - Patient discharged Performed By: #### L 100.0100, L500.2500 ####[facility] [address] [place], [address] RBC Normal 4.2-5.4 [facility] Comment on above: Result Comment: Canc elled via OM: Order cancelled - Patient discharged Performed By: #### L 100.0100, L500.2500 ####[facility] [address] [place], [address] RDW CV Normal 11.6-14.6 [facility] Comment on above: Result Comment: Canc elled via OM: Order cancelled - Patient discharged Performed By: #### L 100.0100, L500.2500 ####[facility] [address] [place], [address] RDW SD Normal 35.1-43.9 [facility] Comment on above: Result Comment: Canc elled via OM: Order cancelled - Patient discharged Performed By: #### L 100.0100, L500.2500 ####[facility] [address] [place], [address] WBC Normal 4.4-11.0 [facility] Comment on above: Result Comment: Canc elled via OM: Order cancelled - Patient discharged Performed By: #### L 100.0100, L500.2500 ####[facility] [address] [place], [address] Basic Metabolic Profile (BMP )on 08-07-2024 BUN Normal 4-19 [facility] Comment on above: Result Comment: Canc elled via OM: Order cancelled - Patient discharged Performed By: #### L 100.0100, L500.2500 ####[facility] [address] [place], [address] BUN/CRE Normal 10-20 [facility] Comment on above: Result Comment: Canc elled via OM: Order cancelled - Patient discharged Performed By: #### L 100.0100, L500.2500 ####[facility] [address] [place], [address] Calcium Normal 7.6-11.0 [facility] Comment on above: Result Comment: Canc elled via OM: Order cancelled - Patient discharged Performed By: #### L 100.0100, L500.2500 ####[facility] [address] [place], [address] CL Normal 98-108 [facility] Comment on above: Result Comment: Canc elled via OM: Order cancelled - Patient discharged Performed By: #### L 100.0100, L500.2500 ####[facility] [address] [place], [address] CO2 Normal 21.0-32.0 [facility] Comment on above: Result Comment: Canc elled via OM: Order cancelled - Patient discharged Performed By: #### L 100.0100, L500.2500 ####[facility] [address] [place], [address] CREAT,SERUM Normal 0.70-1.20 [facility] Comment on above: Result Comment: Canc elled via OM: Order cancelled - Patient discharged Performed By: #### L 100.0100, L500.2500 ####[facility] [address] [place], [address] eGFR Normal >60 [facility] Comment on above: Result Comment: Canc elled via OM: Order cancelled - Patient discharged Performed By: #### L 100.0100, L500.2500 ####[facility] [address] [place], [address] GAP Normal 5-15 [facility] Comment on above: Result Comment: Canc elled via OM: Order cancelled - Patient discharged Performed By: #### L 100.0100, L500.2500 ####[facility] [address] [place], [address] GLU Normal 70-99 [facility] Comment on above: Result Comment: Canc elled via OM: Order cancelled - Patient discharged Performed By: #### L 100.0100, L500.2500 ####[facility] [address] [place], [address] Potassium Normal 3.3-5.1 [facility] Comment on above: Result Comment: Canc elled via OM: Order cancelled - Patient discharged Performed By: #### L 100.0100, L500.2500 ####[facility] [address] [place], [address] Basic Metabolic Profile (BMP) Normal 133-145 [facility] Comment on above: Result Comment: Canc elled via OM: Order cancelled - Patient discharged Performed By: #### L 100.0100, L500.2500 ####[facility] [address] [place], [address] CBC W/Diff, Automatedon 06-0 -2024 Absolute Neut Normal 2.0-7.7 [facility] Comment on above: Result Comment: Canc elled via OM: Order cancelled - Patient discharged Performed By: #### L 100.0100, L500.2500 ####[facility] [address] [place], [address] HCT Normal 37-47 [facility] Comment on above: Result Comment: Canc elled via OM: Order cancelled - Patient discharged Performed By: #### L 100.0100, L500.2500 ####[facility] [address] [place], [address] HGB Normal 12.0-15.0 [facility] Comment on above: Result Comment: Canc elled via OM: Order cancelled - Patient discharged Performed By: #### L 100.0100, L500.2500 ####[facility] [address] [place], [address] MCH Normal 27.0-32.0 [facility] Comment on above: Result Comment: Canc elled via OM: Order cancelled - Patient discharged Performed By: #### L 100.0100, L500.2500 ####[facility] [address] [place], [address] MCHC Normal 32-36 [facility] Comment on above: Result Comment: Canc elled via OM: Order cancelled - Patient discharged Performed By: #### L 100.0100, L500.2500 ####[facility] [address] [place], [address] MCV Normal 81-99 [facility] Comment on above: Result Comment: Canc elled via OM: Order cancelled - Patient discharged Performed By: #### L 100.0100, L500.2500 ####[facility] [address] [place], [address] NEUT% Normal 47-70 [facility] Comment on above: Result Comment: Canc elled via OM: Order cancelled - Patient discharged Performed By: #### L 100.0100, L500.2500 ####[facility] [address] [place], [address] PLT Normal 150-450 [facility] Comment on above: Result Comment: Canc elled via OM: Order cancelled - Patient discharged Performed By: #### L 100.0100, L500.2500 ####[facility] [address] [place], [address] RBC Normal 4.2-5.4 [facility] Comment on above: Result Comment: Canc elled via OM: Order cancelled - Patient discharged Performed By: #### L 100.0100, L500.2500 ####[facility] [address] [place], [address] RDW CV Normal 11.6-14.6 [facility] Comment on above: Result Comment: Canc elled via OM: Order cancelled - Patient discharged Performed By: #### L 100.0100, L500.2500 ####[facility] [address] [place], [address] RDW SD Normal 35.1-43.9 [facility] Comment on above: Result Comment: Canc elled via OM: Order cancelled - Patient discharged Performed By: #### L 100.0100, L500.2500 ####[facility] [address] [place], [address] WBC Normal 4.4-11.0 [facility] Comment on above: Result Comment: Canc elled via OM: Order cancelled - Patient discharged Performed By: #### L 100.0100, L500.2500 ####[facility] [address] [place], [address] Basic Metabolic Profile (BMP )on 08-06-2024 BUN Normal 4-19 [facility] Comment on above: Result Comment: Canc elled via OM: Order cancelled - Patient discharged Performed By: #### L 100.0100, L500.2500 ####[facility] [address] [place], [address] BUN/CRE Normal 10-20 [facility] Comment on above: Result Comment: Canc elled via OM: Order cancelled - Patient discharged Performed By: #### L 100.0100, L500.2500 ####[facility] [address] [place], [address] Calcium Normal 7.6-11.0 [facility] Comment on above: Result Comment: Canc elled via OM: Order cancelled - Patient discharged Performed By: #### L 100.0100, L500.2500 ####[facility] [address] [place], [address] CL Normal 98-108 [facility] Comment on above: Result Comment: Canc elled via OM: Order cancelled - Patient discharged Performed By: #### L 100.0100, L500.2500 ####[facility] [address] [place], [address] CO2 Normal 21.0-32.0 [facility] Comment on above: Result Comment: Canc elled via OM: Order cancelled - Patient discharged Performed By: #### L 100.0100, L500.2500 ####[facility] [address] [place], [address] CREAT,SERUM Normal 0.70-1.20 [facility] Comment on above: Result Comment: Canc elled via OM: Order cancelled - Patient discharged Performed By: #### L 100.0100, L500.2500 ####[facility] [address] [place], [address] eGFR Normal >60 [facility] Comment on above: Result Comment: Canc elled via OM: Order cancelled - Patient discharged Performed By: #### L 100.0100, L500.2500 ####[facility] [address] [place], [address] GAP Normal 5-15 [facility] Comment on above: Result Comment: Canc elled via OM: Order cancelled - Patient discharged Performed By: #### L 100.0100, L500.2500 ####[facility] [address] [place], [address] GLU Normal 70-99 [facility] Comment on above: Result Comment: Canc elled via OM: Order cancelled - Patient discharged Performed By: #### L 100.0100, L500.2500 ####[facility] [address] [place], [address] Potassium Normal 3.3-5.1 [facility] Comment on above: Result Comment: Canc elled via OM: Order cancelled - Patient discharged Performed By: #### L 100.0100, L500.2500 ####[facility] [address] [place], [address] Basic Metabolic Profile (BMP) Normal 133-145 [facility] Comment on above: Result Comment: Canc elled via OM: Order cancelled - Patient discharged Performed By: #### L 100.0100, L500.2500 ####[facility] [address] [place], [address] CBC W/Diff, Automatedon 05-3 Absolute Neut Normal 2.0-7.7 [facility] Comment on above: Result Comment: Canc elled via OM: Order cancelled - Patient discharged Performed By: #### L 100.0100, L500.2500 ####[facility] [address] [place], [address] HCT Normal 37-47 [facility] Comment on above: Result Comment: Canc elled via OM: Order cancelled - Patient discharged Performed By: #### L 100.0100, L500.2500 ####[facility] [address] [place], [address] HGB Normal 12.0-15.0 [facility] Comment on above: Result Comment: Canc elled via OM: Order cancelled - Patient discharged Performed By: #### L 100.0100, L500.2500 ####[facility] [address] [place], [address] MCH Normal 27.0-32.0 [facility] Comment on above: Result Comment: Canc elled via OM: Order cancelled - Patient discharged Performed By: #### L 100.0100, L500.2500 ####[facility] [address] [place], [address] MCHC Normal 32-36 [facility] Comment on above: Result Comment: Canc elled via OM: Order cancelled - Patient discharged Performed By: #### L 100.0100, L500.2500 ####[facility] [address] [place], [address] MCV Normal 81-99 [facility] Comment on above: Result Comment: Canc elled via OM: Order cancelled - Patient discharged Performed By: #### L 100.0100, L500.2500 ####[facility] [address] [place], [address] NEUT% Normal 47-70 [facility] Comment on above: Result Comment: Canc elled via OM: Order cancelled - Patient discharged Performed By: #### L 100.0100, L500.2500 ####[facility] [address] [place], [address] PLT Normal 150-450 [facility] Comment on above: Result Comment: Canc elled via OM: Order cancelled - Patient discharged Performed By: #### L 100.0100, L500.2500 ####[facility] [address] [place], [address] RBC Normal 4.2-5.4 [facility] Comment on above: Result Comment: Canc elled via OM: Order cancelled - Patient discharged Performed By: #### L 100.0100, L500.2500 ####[facility] [address] [place], [address] RDW CV Normal 11.6-14.6 [facility] Comment on above: Result Comment: Canc elled via OM: Order cancelled - Patient discharged Performed By: #### L 100.0100, L500.2500 ####[facility] [address] [place], [address] RDW SD Normal 35.1-43.9 [facility] Comment on above: Result Comment: Canc elled via OM: Order cancelled - Patient discharged Performed By: #### L 100.0100, L500.2500 ####[facility] [address] [place], [address] WBC Normal 4.4-11.0 [facility] Comment on above: Result Comment: Canc elled via OM: Order cancelled - Patient discharged Performed By: #### L 100.0100, L500.2500 ####[facility] [address] [place], [address] Culture, Blood (WB)on 2024 CUB Blood cultures x2, f rom two different sites No growth in 5 days. Normal [facility] Comment on above: Performed By: #### M 200.1000 ####[facility] [address] [place], [address] Basic Metabolic Profile (BMP )on 08-05-2024 BUN Normal 4-19 [facility] Comment on above: Result Comment: Canc elled via OM: Order cancelled - Patient discharged Performed By: #### L 500.2500, L100.0100 ####[facility] [address] [place], [address] BUN/CRE Normal 10-20 [facility] Comment on above: Result Comment: Canc elled via OM: Order cancelled - Patient discharged Performed By: #### L 500.2500, L100.0100 ####[facility] [address] [place], [address] Calcium Normal 7.6-11.0 [facility] Comment on above: Result Comment: Canc elled via OM: Order cancelled - Patient discharged Performed By: #### L 500.2500, L100.0100 ####[facility] [address] [place], [address] CL Normal 98-108 [facility] Comment on above: Result Comment: Canc elled via OM: Order cancelled - Patient discharged Performed By: #### L 500.2500, L100.0100 ####[facility] [address] [place], [address] CO2 Normal 21.0-32.0 [facility] Comment on above: Result Comment: Canc elled via OM: Order cancelled - Patient discharged Performed By: #### L 500.2500, L100.0100 ####[facility] [address] [place], [address] CREAT,SERUM Normal 0.70-1.20 [facility] Comment on above: Result Comment: Canc elled via OM: Order cancelled - Patient discharged Performed By: #### L 500.2500, L100.0100 ####[facility] [address] [place], [address] eGFR Normal >60 [facility] Comment on above: Result Comment: Canc elled via OM: Order cancelled - Patient discharged Performed By: #### L 500.2500, L100.0100 ####[facility] [address] [place], [address] GAP Normal 5-15 [facility] Comment on above: Result Comment: Canc elled via OM: Order cancelled - Patient discharged Performed By: #### L 500.2500, L100.0100 ####[facility] [address] [place], [address] GLU Normal 70-99 [facility] Comment on above: Result Comment: Canc elled via OM: Order cancelled - Patient discharged Performed By: #### L 500.2500, L100.0100 ####[facility] [address] [place], [address] Potassium Normal 3.3-5.1 [facility] Comment on above: Result Comment: Canc elled via OM: Order cancelled - Patient discharged Performed By: #### L 500.2500, L100.0100 ####[facility] [address] [place], [address] Basic Metabolic Profile (BMP) Normal 133-145 [facility] Comment on above: Result Comment: Canc elled via OM: Order cancelled - Patient discharged Performed By: #### L 500.2500, L100.0100 ####[facility] [address] [place], [address] CBC W/Diff, Automatedon 05-3 0-2024 Absolute Neut Normal 2.0-7.7 [facility] Comment on above: Result Comment: Canc elled via OM: Order cancelled - Patient discharged Performed By: #### L 500.2500, L100.0100 ####[facility] [address] [place], [address] HCT Normal 37-47 [facility] Comment on above: Result Comment: Canc elled via OM: Order cancelled - Patient discharged Performed By: #### L 500.2500, L100.0100 ####[facility] [address] [place], [address] HGB Normal 12.0-15.0 [facility] Comment on above: Result Comment: Canc elled via OM: Order cancelled - Patient discharged Performed By: #### L 500.2500, L100.0100 ####[facility] [address] [place], [address] MCH Normal 27.0-32.0 [facility] Comment on above: Result Comment: Canc elled via OM: Order cancelled - Patient discharged Performed By: #### L 500.2500, L100.0100 ####[facility] [address] [place], [address] MCHC Normal 32-36 [facility] Comment on above: Result Comment: Canc elled via OM: Order cancelled - Patient discharged Performed By: #### L 500.2500, L100.0100 ####[facility] [address] [place], [address] MCV Normal 81-99 [facility] Comment on above: Result Comment: Canc elled via OM: Order cancelled - Patient discharged Performed By: #### L 500.2500, L100.0100 ####[facility] [address] [place], [address] NEUT% Normal 47-70 [facility] Comment on above: Result Comment: Canc elled via OM: Order cancelled - Patient discharged Performed By: #### L 500.2500, L100.0100 ####[facility] [address] [place], [address] PLT Normal 150-450 [facility] Comment on above: Result Comment: Canc elled via OM: Order cancelled - Patient discharged Performed By: #### L 500.2500, L100.0100 ####[facility] [address] [place], [address] RBC Normal 4.2-5.4 [facility] Comment on above: Result Comment: Canc elled via OM: Order cancelled - Patient discharged Performed By: #### L 500.2500, L100.0100 ####[facility] [address] [place], [address] RDW CV Normal 11.6-14.6 [facility] Comment on above: Result Comment: Canc elled via OM: Order cancelled - Patient discharged Performed By: #### L 500.2500, L100.0100 ####[facility] [address] [place], [address] RDW SD Normal 35.1-43.9 [facility] Comment on above: Result Comment: Canc elled via OM: Order cancelled - Patient discharged Performed By: #### L 500.2500, L100.0100 ####[facility] [address] [place], [address] WBC Normal 4.4-11.0 [facility] Comment on above: Result Comment: Canc elled via OM: Order cancelled - Patient discharged Performed By: #### L 500.2500, L100.0100 ####[facility] [address] [place], [address] Respiratory Cultureon 2024 RESPC Normal [facility] Comment on above: Performed By: #### M 100.2000, M100.2400 ####[facility] [address] [place], [address] Absolute lymphocyte countOrd ered By: Rosalina Gatica on 08-04-2024 Lymphocytes Auto (Unsp spec) [#/Vol] 1.86 10*3/uL 0.83-4.51 [facility] Anion gap in Serum or Plasma Ordered By: Rosalina Gatica on 08-04-2024 Anion gap [Moles/Vol] 10 mmol/L 5-15 [facility] Automated lymphocyte count a s percentage of total leukocytesOrdered By: Rosalina Gatica on 08-04-2024 Lymphocytes/100 WBC Auto (Unsp spec) 25.3 % 19-41 [facility] BUN/creatinine ratioOrdered By: Rosalina Gatica on 08-04-2024 Urea nitrogen/Creatinine [Mass ratio] 17.9 mg/mg - [facility] Basic Metabolic Profile (BMP )on 08-04-2024 BUN/CRE 17.9 RATIO Normal - [facility] Comment on above: Performed By: #### L 500.2500, L100.0100 ####[facility] [address] [place], [address] Calcium [Mass/Vol] 9.5 mg/dL Normal 7.6-11.0 [facility] Comment on above: Performed By: #### L 500.2500, L100.0100 ####[facility] [address] [place], [address] Chloride [Moles/Vol] 105 mmol/L Normal 98-108 [facility] Comment on above: Performed By: #### L 500.2500, L100.0100 ####[facility] [address] [place], [address] CO2 [Moles/Vol] 27.2 mmol/L Normal 21.0-32.0 [facility] Comment on above: Performed By: #### L 500.2500, L100.0100 ####[facility] [address] [place], [address] Creatinine [Mass/Vol] 0.92 mg/dL Normal 0.70-1.20 [facility] Comment on above: Performed By: #### L 500.2500, L100.0100 ####[facility] [address] [place], [address] ECRCL 59.48 ml/min Normal 50-250 [facility] Comment on above: Performed By: #### L 500.2500, L100.0100 ####[facility] [address] [place], [address] GAP 10 Normal 5-15 [facility] Comment on above: Performed By: #### L 500.2500, L100.0100 ####[facility] [address] [place], [address] GFR/1.73 sq M.predicted among non-blacks MDRD (S/P/Bld) [Vol rate/Area] 70 mL/min/{1.73_m2} Normal >60 [facility] Comment on above: Result Comment: mL/m in/1.73m2 CKD-EPI Creatinine Equation (2020) Performed By: #### L 500.2500, L100.0100 ####[facility] [address] [place], [address] Glucose [Mass/Vol] 85 mg/dL Normal 70-99 [facility] Comment on above: Performed By: #### L 500.2500, L100.0100 ####[facility] [address] [place], [address] Potassium [Moles/Vol] 3.8 mmol/L Normal 3.3-5.1 [facility] Comment on above: Performed By: #### L 500.2500, L100.0100 ####[facility] [address] [place], [address] Sodium [Moles/Vol] 142 mmol/L Normal 133-145 [facility] Comment on above: Performed By: #### L 500.2500, L100.0100 ####[facility] [address] [place], [address] Urea nitrogen [Mass/Vol] 16 mg/dL Normal 4-19 [facility] Comment on above: Performed By: #### L 500.2500, L100.0100 ####[facility] [address] [place], [address] Basophil percentageOrdered B y: Rosalina Gatica on 08-04-2024 Basophils/100 WBC (Bld) 0.1 % 0-[address] [facility] CBC W/Diff, Automatedon 07-08 Absolute Lymph 1.86 X10 3/uL Normal 0.83-4.51 [facility] Comment on above: Performed By: #### L 500.2500, L100.0100 ####[facility] [address] [place], [address] Absolute Neut 3.8 X10 3/uL Normal 2.0-7.7 [facility] Comment on above: Performed By: #### L 500.2500, L100.0100 ####[facility] [address] [place], [address] Basophils/100 WBC (Bld) 0.1 % Normal 0-[address] [facility] Comment on above: Performed By: #### L 500.2500, L100.0100 ####[facility] [address] [place], [address] Eosinophils/100 WBC (Bld) 9.2 % High 0-5 [facility] Comment on above: Performed By: #### L 500.2500, L100.0100 ####[facility] [address] [place], [address] Erythrocyte distribution width (RBC) [Ratio] 14.6 % Normal 11.6-14.6 [facility] Comment on above: Performed By: #### L 500.2500, L100.0100 ####[facility] [address] [place], [address] Hematocrit (Bld) [Volume fraction] 35.4 % Low 37-47 [facility] Comment on above: Performed By: #### L 500.2500, L100.0100 ####[facility] [address] [place], [address] Hemoglobin (Bld) [Mass/Vol] 11.2 g/dL Low 12.0-15.0 [facility] Comment on above: Performed By: #### L 500.2500, L100.0100 ####[facility] [address] [place], [address] IG% 0.400 Normal 0.0-0.9 [facility] Comment on above: Result Comment: IG% - Immature Granulocytes (promyelocytes, myelocytes andmetamyelocytes) > 1% indicates that a LEFT SHIFT is Present. Performed By: #### L 500.2500, L100.0100 ####[facility] [address] [place], [address] Lymphocytes/100 WBC (Bld) 25.3 % Normal 19-41 [facility] Comment on above: Performed By: #### L 500.2500, L100.0100 ####[facility] [address] [place], [address] MCH (RBC) [Entitic mass] 29.8 pg Normal 27.0-32.0 [facility] Comment on above: Performed By: #### L 500.2500, L100.0100 ####[facility] [address] [place], [address] MCHC (RBC) [Mass/Vol] 31.6 g/dL Low 32-36 [facility] Comment on above: Performed By: #### L 500.2500, L100.0100 ####[facility] [address] [place], [address] MCV (RBC) [Entitic vol] 94.1 fL Normal 81-99 [facility] Comment on above: Performed By: #### L 500.2500, L100.0100 ####[facility] [address] [place], [address] Monocytes/100 WBC (Bld) 13.3 % High 0-10 [facility] Comment on above: Performed By: #### L 500.2500, L100.0100 ####[facility] [address] [place], [address] Neutrophils/100 WBC (Bld) 51.7 % Normal 47-70 [facility] Comment on above: Performed By: #### L 500.2500, L100.0100 ####[facility] [address] [place], [address] Nucleated RBC (Bld) [#/Vol] 0 10*3/uL Normal 0-5 [facility] Comment on above: Performed By: #### L 500.2500, L100.0100 ####[facility] [address] [place], [address] Platelet mean volume (Bld) [Entitic vol] 9.8 fL Normal 6.2-12.0 [facility] Comment on above: Performed By: #### L 500.2500, L100.0100 ####[facility] [address] [place], [address] Platelets (Bld) [#/Vol] 239 10*3/uL Normal 150-450 [facility] Comment on above: Performed By: #### L 500.2500, L100.0100 ####[facility] [address] [place], [address] RBC (Bld) [#/Vol] 3.76 10*6/uL Low 4.2-5.4 [facility] Comment on above: Performed By: #### L 500.2500, L100.0100 ####[facility] [address] [place], [address] RDW SD 50.0 fl High 35.1-43.9 [facility] Comment on above: Performed By: #### L 500.2500, L100.0100 ####[facility] [address] [place], [address] WBC (Bld) [#/Vol] 7.4 10*3/uL Normal 4.4-11.0 [facility] Comment on above: Performed By: #### L 500.2500, L100.0100 ####[facility] [address] [place], [address] Carbon dioxide, total [Moles /volume] in Central venous bloodOrdered By: Rosalina Gatica on 08-04-2024 CO2 [Moles/Vol] 27.2 mmol/L 21.0-32.0 [facility] Chloride assayOrdered By: Emmanuelle Gatica on 08-04-2024 Chloride [Moles/Vol] 105 mmol/L 98-108 [facility] Discharge Instructionon 07-08 Discharge Instruction Normal [facility] Eosinophil percentageOrdered By: Rosalina Gatica on 08-04-2024 Eosinophils/100 WBC (Bld) 9.2 % High 0-5 [facility] Erythrocyte distribution wid th ratioOrdered By: Rosalina Gatica on 08-04-2024 Erythrocyte distribution width (RBC) [Ratio] 14.6 % 11.6-14.6 [facility] Erythrocyte distribution wid th standard deviationOrdered By: Rosalina Gatica on 08-04-2024 Erythrocyte distribution width (RBC) [Ratio] 50.0 fl High 35.1-43.9 [facility] Glomerular filtration rate ( GFR) estimation/1.73 sq m using serum, plasma, or whole bOrdered By: Rosalina Gatica on 08-04-2024 GFR/1.73 sq M.predicted among non-blacks MDRD (S/P/Bld) [Vol rate/Area] 70 mL/min/{1.73_m2} >60 [facility] Gram Stainon 08-04-2024 GS List Antibiotics [place] 48 Hours? Zosyn Acceptable Specimen? Yes (<25 Epithelial cells per/lpf) Gram Stain Rare Gram positive cocci Rare White Blood Cells No Epithelial cells Normal [facility] Comment on above: Performed By: #### M 100.2000, M100.2400 ####[facility] [address] [place], [place], [id number] Hematocrit Auto (Bld) [Volum e fraction]Ordered By: Rosalina Gatica on 08-04-2024 Hematocrit (Bld) [Volume fraction] 35.4 % Low 37-47 [facility] Hemoglobin measurementOrdere d By: Rosalina Gatica on 08-04-2024 Hemoglobin (Bld) [Mass/Vol] 11.2 g/dL Low 12.0-15.0 [facility] Immature granulocytes/100 WB C Auto (Bld)Ordered By: Rosalina Gatica on 08-04-2024 Immature granulocytes/100 WBC (Bld) 0.400 % 0.0-0.9 [facility] MCV (mean corpuscular volume ) determinationOrdered By: Rosalina Gatica on 08-04-2024 MCV (RBC) [Entitic vol] 94.1 fL 81-[address] [facility] Mean corpuscular hemoglobin (MCH) determinationOrdered By: Rosalina Gatica on 08-04-2024 MCH (RBC) [Entitic mass] 29.8 pg 27.0-32.0 [facility] Monocyte percentageOrdered B y: Rosalina Gatica on 08-04-2024 Monocytes/100 WBC (Bld) 13.3 % High 0-[address] [facility] Neutrophil percentageOrdered By: Rosalina Gatica on 08-04-2024 Neutrophils/100 WBC (Bld) 51.7 % 47-70 [facility] Platelet countOrdered By: Emmanuelle Gatica on 08-04-2024 Platelets (Bld) [#/Vol] 239 10*3/uL 150-450 [facility] Potassium measurement (mass/ volume)Ordered By: Rosalina Gatica on 08-04-2024 Potassium (Unsp spec) [Mass/Vol] 3.8 mmol/L 3.3-5.1 [facility] RBC Auto (Bld) [#/Vol]Ordere d By: Rosalina Gatica on 08-04-2024 RBC (Bld) [#/Vol] 3.76 10*6/uL Low 4.2-5.4 [facility] Serum creatinine measurement (mass/volume)Ordered By: Rosalina Gatica on 08-04-2024 Creatinine [Mass/Vol] 0.92 mg/dL 0.70-1.20 [facility] Serum glucose measurement (m ass/volume)Ordered By: Rosalina Gatica on 08-04-2024 Glucose [Mass/Vol] 85 mg/dL 70-99 [facility] Serum or plasma calcium israel urement (mass/volume)Ordered By: Rosalina Gatica on 08-04-2024 Calcium [Mass/Vol] 9.5 mg/dL 7.6-11.0 [facility] Serum or plasma urea nitroge n measurement (mass/volume)Ordered By: Rosalina Gatica on 08-04-2024 Urea nitrogen [Mass/Vol] 16 mg/dL 4-19 [facility] Sodium levelOrdered By: Rosalinamelvi Gatica on 08-04-2024 Sodium [Moles/Vol] 142 mmol/L 133-145 [facility] White blood cell (WBC) count Ordered By: Rosalina Gavi on 08-04-2024 WBC (Bld) [#/Vol] 7.4 10*3/uL 4.4-11.0 [facility] Basic Metabolic Profile (BMP )on 08-03-2024 BUN/CRE 14.0 RATIO Normal 10-20 [facility] Comment on above: Performed By: #### L 100.0100, L500.2500 ####[facility] [address] [place], [address] Calcium [Mass/Vol] 9.3 mg/dL Normal 7.6-11.0 [facility] Comment on above: Performed By: #### L 100.0100, L500.2500 ####[facility] [address] [place], [address] Chloride [Moles/Vol] 103 mmol/L Normal 98-108 [facility] Comment on above: Performed By: #### L 100.0100, L500.2500 ####[facility] [address] [place], [address] CO2 [Moles/Vol] 23.7 mmol/L Normal 21.0-32.0 [facility] Comment on above: Performed By: #### L 100.0100, L500.2500 ####[facility] [address] [place], [address] Creatinine [Mass/Vol] 1.11 mg/dL Normal 0.70-1.20 [facility] Comment on above: Performed By: #### L 100.0100, L500.2500 ####[facility] [address] [place], [address] ECRCL 49.30 ml/min Low 50-250 [facility] Comment on above: Performed By: #### L 100.0100, L500.2500 ####[facility] [address] [place], [address] GAP 12 Normal 5-15 [facility] Comment on above: Performed By: #### L 100.0100, L500.2500 ####[facility] [address] [place], [address] GFR/1.73 sq M.predicted among non-blacks MDRD (S/P/Bld) [Vol rate/Area] 55 mL/min/{1.73_m2} Low >60 [facility] Comment on above: Result Comment: mL/m in/1.73m2 CKD-EPI Creatinine Equation (2020) Performed By: #### L 100.0100, L500.2500 ####[facility] [address] [place], [address] Glucose [Mass/Vol] 109 mg/dL High 70-99 [facility] Comment on above: Performed By: #### L 100.0100, L500.2500 ####[facility] [address] [place], [address] Potassium [Moles/Vol] 3.4 mmol/L Normal 3.3-5.1 [facility] Comment on above: Performed By: #### L 100.0100, L500.2500 ####[facility] [address] [place], [address] Sodium [Moles/Vol] 138 mmol/L Normal 133-145 [facility] Comment on above: Performed By: #### L 100.0100, L500.2500 ####[facility] [address] [place], [address] Urea nitrogen [Mass/Vol] 16 mg/dL Normal 4-19 [facility] Comment on above: Performed By: #### L 100.0100, L500.2500 ####[facility] [address] [place], [address] CBC W/Diff, Automatedon 05-2 Absolute Lymph 1.48 X10 3/uL Normal 0.83-4.51 [facility] Comment on above: Performed By: #### L 100.0100, L500.2500 ####[facility] [address] [place], [address] Absolute Neut 8.2 X10 3/uL High 2.0-7.7 [facility] Comment on above: Performed By: #### L 100.0100, L500.2500 ####[facility] [address] [place], [address] Basophils/100 WBC (Bld) 0.1 % Normal 0-[address] [facility] Comment on above: Performed By: #### L 100.0100, L500.2500 ####[facility] [address] [place], [address] Eosinophils/100 WBC (Bld) 4.9 % Normal 0-5 [facility] Comment on above: Performed By: #### L 100.0100, L500.2500 ####[facility] [address] [place], [address] Erythrocyte distribution width (RBC) [Ratio] 14.5 % Normal 11.6-14.6 [facility] Comment on above: Performed By: #### L 100.0100, L500.2500 ####[facility] [address] [place], [address] Hematocrit (Bld) [Volume fraction] 36.5 % Low 37-47 [facility] Comment on above: Performed By: #### L 100.0100, L500.2500 ####[facility] [address] [place], [address] Hemoglobin (Bld) [Mass/Vol] 11.9 g/dL Low 12.0-15.0 [facility] Comment on above: Performed By: #### L 100.0100, L500.2500 ####[facility] [address] [place], [address] IG% 0.400 Normal 0.0-0.9 [facility] Comment on above: Result Comment: IG% - Immature Granulocytes (promyelocytes, myelocytes andmetamyelocytes) > 1% indicates that a LEFT SHIFT is Present. Performed By: #### L 100.0100, L500.2500 ####[facility] [address] [place], [address] Lymphocytes/100 WBC (Bld) 13.0 % Low 19-41 [facility] Comment on above: Performed By: #### L 100.0100, L500.2500 ####[facility] [address] [place], [address] MCH (RBC) [Entitic mass] 30.4 pg Normal 27.0-32.0 [facility] Comment on above: Performed By: #### L 100.0100, L500.2500 ####[facility] [address] [place], [address] MCHC (RBC) [Mass/Vol] 32.6 g/dL Normal 32-36 [facility] Comment on above: Performed By: #### L 100.0100, L500.2500 ####[facility] [address] [place], [address] MCV (RBC) [Entitic vol] 93.1 fL Normal 81-[address] [facility] Comment on above: Performed By: #### L 100.0100, L500.2500 ####[facility] [address] [place], [address] Monocytes/100 WBC (Bld) 9.3 % Normal 0-[address] [facility] Comment on above: Performed By: #### L 100.0100, L500.2500 ####[facility] [address] [place], [address] Neutrophils/100 WBC (Bld) 72.3 % High 47-70 [facility] Comment on above: Performed By: #### L 100.0100, L500.2500 ####[facility] [address] [place], [address] Nucleated RBC (Bld) [#/Vol] 0 10*3/uL Normal 0-5 [facility] Comment on above: Performed By: #### L 100.0100, L500.2500 ####[facility] [address] [place], [address] Platelet mean volume (Bld) [Entitic vol] 9.9 fL Normal 6.2-12.0 [facility] Comment on above: Performed By: #### L 100.0100, L500.2500 ####[facility] [address] [place], [address] Platelets (Bld) [#/Vol] 252 10*3/uL Normal 150-450 [facility] Comment on above: Performed By: #### L 100.0100, L500.2500 ####[facility] [address] [place], [address] RBC (Bld) [#/Vol] 3.92 10*6/uL Low 4.2-5.4 [facility] Comment on above: Performed By: #### L 100.0100, L500.2500 ####[facility] [address] [place], [address] RDW SD 49.4 fl High 35.1-43.9 [facility] Comment on above: Performed By: #### L 100.0100, L500.2500 ####[facility] [address] [place], [address] WBC (Bld) [#/Vol] 11.4 10*3/uL High 4.4-11.0 [facility] Comment on above: Performed By: #### L 100.0100, L500.2500 ####[facility] [address] [place], [place], [id number] Consultation - Intensiviston 08-03-2024 Consultation - Healthcare Management Consultant Normal [facility] Gram stainOrdered By: Bill zelaya on 08-03-2024 Microscopic observation Gram stain Nom (Unsp spec) [facility] Microbial respiratory cultur eOrdered By: Bill Camacho on 08-03-2024 Microorganism identified Cx Nom (Unsp spec) Meth. resistant Staph. aureus Abnormal [facility] Microorganism identified Cx Nom (Unsp spec) Presumptive C albicans Abnormal [facility] Trough vancomycin levelOrder ed By: Bill Camacho on 08-03-2024 Vancomycin trough [Mass/Vol] 16.9 ug/mL High 5.0-15.0 [facility] Urine Cultureon 08-03-2024 URC Below infection leve l. Coag Negative Staph [place] Count 1000-10,000 Normal [facility] Comment on above: Performed By: #### M 100.2200, M300.4500, M300.4600 ####[facility] [address] [place], [place], [id number] Vancomycin, Trough Levelon 0 08-03-2024 VANCO, TROUGH 16.9 ug/mL High 5.0-15.0 [facility] Comment on above: Order Comment: Comme nts: Trough to be drawn 30 mins prior to scheduled [id number] Result Comment: Marquez mmended goal trough ranges are generally 10-15 mcg/mlfor less severe/complicated infections such as cellulitisor UTI and 15-20 mcg/ml for more severe/complicatedinfections such as bacteremia/sepsis, osteomyelitis,pneumonia or meningitis. Goal trough ranges should takeinto account indication, patient-specific factors andorganism KENNETH.VANCOMYCIN STANDARED DRUG THERAPY TROUGH LEVEL: 5.0 - 15.0 mg/LVANCOMYCIN HIGH INTENSITY THERAPY TROUGH LEVEL: 15.0 - 20.0 mg/LHigh Intensity therapy recommended for serious lifethreatening infections include:- Luqjlnyunc-Luvgukyokqfe-Hseenknsg (Ventilator/Healtcare Associated)-SepsisPLEASE CONTACT PHARMACY SERVICES (#2126) FOR INTERPRETATIONOF RESULTS. Performed By: #### L 501.8829 ####[facility] [address] [place], [address] 6 Minute Walk Teston 025 [address] Test Normal [facility] Absolute lymphocyte countOrd ered By: Bill Camacho on 08-02-2024 Lymphocytes Auto (Unsp spec) [#/Vol] 0.30 10*3/uL Low 0.83-4.51 [facility] Absolute neutrophil countOrd ered By: Bill Camacho on 08-02-2024 Neutrophils (Bld) [#/Vol] 7.2 10*3/uL 2.0-7.7 [facility] Anion gap in Serum or Plasma Ordered By: Bill Camacho on 08-02-2024 Anion gap [Moles/Vol] 12 mmol/L 5-15 [facility] Automated lymphocyte count a s percentage of total leukocytesOrdered By: Bill Camacho on 08-02-2024 Lymphocytes/100 WBC Auto (Unsp spec) 3.8 % Low 19-41 [facility] BUN/creatinine ratioOrdered By: Bill Camacho on 08-02-2024 Urea nitrogen/Creatinine [Mass ratio] 17.1 mg/mg - [facility] Basic Metabolic Profile (BMP )on 08-02-2024 BUN/CRE 17.1 RATIO Normal - [facility] Comment on above: Performed By: #### L 100.0100, L500.2500 ####[facility] [address] [place], [address] Calcium [Mass/Vol] 8.8 mg/dL Normal 7.6-11.0 [facility] Comment on above: Performed By: #### L 100.0100, L500.2500 ####[facility] [address] [place], [address] Chloride [Moles/Vol] 101 mmol/L Normal 98-108 [facility] Comment on above: Performed By: #### L 100.0100, L500.2500 ####[facility] [address] [place], [address] CO2 [Moles/Vol] 22.3 mmol/L Normal 21.0-32.0 [facility] Comment on above: Performed By: #### L 100.0100, L500.2500 ####[facility] [address] [place], [address] Creatinine [Mass/Vol] 1.18 mg/dL Normal 0.70-1.20 [facility] Comment on above: Performed By: #### L 100.0100, L500.2500 ####[facility] [address] [place], [address] ECRCL 46.37 ml/min Low 50-250 [facility] Comment on above: Performed By: #### L 100.0100, L500.2500 ####[facility] [address] [place], [address] GAP 12 Normal 5-15 [facility] Comment on above: Performed By: #### L 100.0100, L500.2500 ####[facility] [address] [place], [address] GFR/1.73 sq M.predicted among non-blacks MDRD (S/P/Bld) [Vol rate/Area] 51 mL/min/{1.73_m2} Low >60 [facility] Comment on above: Result Comment: mL/m in/1.73m2 CKD-EPI Creatinine Equation (2020) Performed By: #### L 100.0100, L500.2500 ####[facility] [address] [place], [address] Glucose [Mass/Vol] 177 mg/dL High 70-99 [facility] Comment on above: Performed By: #### L 100.0100, L500.2500 ####[facility] [address] [place], [address] Potassium [Moles/Vol] 4.1 mmol/L Normal 3.3-5.1 [facility] Comment on above: Performed By: #### L 100.0100, L500.2500 ####[facility] [address] [place], [address] Sodium [Moles/Vol] 135 mmol/L Normal 133-145 [facility] Comment on above: Performed By: #### L 100.0100, L500.2500 ####[facility] [address] [place], [address] Urea nitrogen [Mass/Vol] 20 mg/dL High 4-19 [facility] Comment on above: Performed By: #### L 100.0100, L500.2500 ####[facility] [address] [place], [address] Basophil percentageOrdered B y: Bill Camacho on 08-02-2024 Basophils/100 WBC (Bld) 0.1 % 0-[address] [facility] CBC W/Diff, Automatedon 07-08 Absolute Lymph 0.30 X10 3/uL Low 0.83-4.51 [facility] Comment on above: Performed By: #### L 100.0100, L500.2500 ####[facility] [address] [place], [address] Absolute Neut 7.2 X10 3/uL Normal 2.0-7.7 [facility] Comment on above: Performed By: #### L 100.0100, L500.2500 ####[facility] [address] [place], [address] Basophils/100 WBC (Bld) 0.1 % Normal 0-[address] [facility] Comment on above: Performed By: #### L 100.0100, L500.2500 ####[facility] [address] [place], [address] Eosinophils/100 WBC (Bld) 0.0 % Normal 0-5 [facility] Comment on above: Performed By: #### L 100.0100, L500.2500 ####[facility] [address] [place], [address] Erythrocyte distribution width (RBC) [Ratio] 14.1 % Normal 11.6-14.6 [facility] Comment on above: Performed By: #### L 100.0100, L500.2500 ####[facility] [address] [place], [address] Hematocrit (Bld) [Volume fraction] 36.5 % Low 37-47 [facility] Comment on above: Performed By: #### L 100.0100, L500.2500 ####[facility] [address] [place], [address] Hemoglobin (Bld) [Mass/Vol] 11.9 g/dL Low 12.0-15.0 [facility] Comment on above: Performed By: #### L 100.0100, L500.2500 ####[facility] [address] [place], [address] IG% 0.600 Normal 0.0-0.9 [facility] Comment on above: Result Comment: IG% - Immature Granulocytes (promyelocytes, myelocytes andmetamyelocytes) > 1% indicates that a LEFT SHIFT is Present. Performed By: #### L 100.0100, L500.2500 ####[facility] [address] [place], [address] Lymphocytes/100 WBC (Bld) 3.8 % Low 19-41 [facility] Comment on above: Performed By: #### L 100.0100, L500.2500 ####[facility] [address] [place], [address] MCH (RBC) [Entitic mass] 30.0 pg Normal 27.0-32.0 [facility] Comment on above: Performed By: #### L 100.0100, L500.2500 ####[facility] [address] [place], [address] MCHC (RBC) [Mass/Vol] 32.6 g/dL Normal 32-36 [facility] Comment on above: Performed By: #### L 100.0100, L500.2500 ####[facility] [address] [place], [address] MCV (RBC) [Entitic vol] 91.9 fL Normal 81-99 [facility] Comment on above: Performed By: #### L 100.0100, L500.2500 ####[facility] [address] [place], [address] Monocytes/100 WBC (Bld) 2.8 % Normal 0-10 [facility] Comment on above: Performed By: #### L 100.0100, L500.2500 ####[facility] [address] [place], [address] Neutrophils/100 WBC (Bld) 92.7 % High 47-70 [facility] Comment on above: Performed By: #### L 100.0100, L500.2500 ####[facility] [address] [place], [address] Nucleated RBC (Bld) [#/Vol] 0 10*3/uL Normal 0-5 [facility] Comment on above: Performed By: #### L 100.0100, L500.2500 ####[facility] [address] [place], [address] Platelet mean volume (Bld) [Entitic vol] 9.7 fL Normal 6.2-12.0 [facility] Comment on above: Performed By: #### L 100.0100, L500.2500 ####[facility] [address] [place], [address] Platelets (Bld) [#/Vol] 232 10*3/uL Normal 150-450 [facility] Comment on above: Performed By: #### L 100.0100, L500.2500 ####[facility] [address] [place], [address] RBC (Bld) [#/Vol] 3.97 10*6/uL Low 4.2-5.4 [facility] Comment on above: Performed By: #### L 100.0100, L500.2500 ####[facility] [address] [place], [address] RDW SD 47.0 fl High 35.1-43.9 [facility] Comment on above: Performed By: #### L 100.0100, L500.2500 ####[facility] [address] [place], [address] WBC (Bld) [#/Vol] 7.8 10*3/uL Normal 4.4-11.0 [facility] Comment on above: Performed By: #### L 100.0100, L500.2500 ####[facility] [address] [place], [address] Carbon dioxide, total [Moles /volume] in Central venous bloodOrdered By: Bill Camacho on 08-02-2024 CO2 [Moles/Vol] 22.3 mmol/L 21.0-32.0 [facility] Chloride assayOrdered By: El Camacho on 08-02-2024 Chloride [Moles/Vol] 101 mmol/L 98-108 [facility] Eosinophil percentageOrdered By: Bill Camacho on 08-02-2024 Eosinophils/100 WBC (Bld) 0.0 % 0-5 [facility] Erythrocyte distribution wid th ratioOrdered By: Bill Camacho on 08-02-2024 Erythrocyte distribution width (RBC) [Ratio] 14.1 % 11.6-14.6 [facility] Erythrocyte distribution wid th standard deviationOrdered By: Bill Camacho on 08-02-2024 Erythrocyte distribution width (RBC) [Ratio] 47.0 fl High 35.1-43.9 [facility] Glomerular filtration rate ( GFR) estimation/1.73 sq m using serum, plasma, or whole bOrdered By: Bill Camacho on 08-02-2024 GFR/1.73 sq M.predicted among non-blacks MDRD (S/P/Bld) [Vol rate/Area] 51 mL/min/{1.73_m2} Low >60 [facility] Comment on above: mL/min/1.73m2 CKD-EP I Creatinine Equation (2020) Hematocrit Auto (Bld) [Volum e fraction]Ordered By: Bill Camacho on 08-02-2024 Hematocrit (Bld) [Volume fraction] 36.5 % Low 37-47 [facility] Hemoglobin measurementOrdere d By: Bill Camacho on 08-02-2024 Hemoglobin (Bld) [Mass/Vol] 11.9 g/dL Low 12.0-15.0 [facility] Immature granulocytes/100 WB C Auto (Bld)Ordered By: Bill Camacho on 08-02-2024 Immature granulocytes/100 WBC (Bld) 0.600 % 0.0-0.9 [facility] Comment on above: IG% - Immature Granu locytes (promyelocytes, myelocytes and metamyelocytes) > 1% indicates that a LEFT SHIFT is Present. MCV (mean corpuscular volume ) determinationOrdered By: Bill Camacho on 08-02-2024 MCV (RBC) [Entitic vol] 91.9 fL 81-[address] [facility] Mean corpuscular hemoglobin (MCH) determinationOrdered By: Bill Camacho on 08-02-2024 MCH (RBC) [Entitic mass] 30.0 pg 27.0-32.0 [facility] Mean corpuscular hemoglobin concentration (MCHC) determinationOrdered By: Bill Camacho on 08-02-2024 MCHC (RBC) [Mass/Vol] 32.6 g/dL 32-36 [facility] Mean platelet volume determi nationOrdered By: Bill Camacho on 08-02-2024 Platelet mean volume (Bld) [Entitic vol] 9.7 fL 6.2-12.0 [facility] Monocyte percentageOrdered B y: Bill Camacho on 08-02-2024 Monocytes/100 WBC (Bld) 2.8 % 0-[address] [facility] Neutrophil percentageOrdered By: Bill Camacho on 08-02-2024 Neutrophils/100 WBC (Bld) 92.7 % High 47-70 [facility] Nucleated red blood cell per centageOrdered By: Bill Camacho on 08-02-2024 Nucleated RBC/100 WBC (Bld) [Ratio] 0 % 0-5 [facility] Platelet countOrdered By: El Camacho on 08-02-2024 Platelets (Bld) [#/Vol] 232 10*3/uL 150-450 [facility] Potassium measurement (mass/ volume)Ordered By: Bill Camacho on 08-02-2024 Potassium (Unsp spec) [Mass/Vol] 4.1 mmol/L 3.3-5.1 [facility] RBC Auto (Bld) [#/Vol]Ordere d By: Bill Camacho on 08-02-2024 RBC (Bld) [#/Vol] 3.97 10*6/uL Low 4.2-5.4 [facility] Serum creatinine measurement (mass/volume)Ordered By: Bill Camacho on 08-02-2024 Creatinine [Mass/Vol] 1.18 mg/dL 0.70-1.20 [facility] Serum glucose measurement (m ass/volume)Ordered By: Bill Camacho on 08-02-2024 Glucose [Mass/Vol] 177 mg/dL High 70-99 [facility] Serum or plasma calcium israel urement (mass/volume)Ordered By: Bill Camacho on 08-02-2024 Calcium [Mass/Vol] 8.8 mg/dL 7.6-11.0 [facility] Serum or plasma urea nitroge n measurement (mass/volume)Ordered By: Bill Camacho on 08-02-2024 Urea nitrogen [Mass/Vol] 20 mg/dL High 4-19 [facility] Sodium levelOrdered By: Bill Camacho on 08-02-2024 Sodium [Moles/Vol] 135 mmol/L 133-145 [facility] White blood cell (WBC) count Ordered By: Bill Camacho on 08-02-2024 WBC (Bld) [#/Vol] 7.8 10*3/uL 4.4-11.0 [facility] 12 Lead EKGon 08-01-2024 12 Lead EKG Normal [facility] Absolute lymphocyte countOrd ered By: Carlos Jiménez on 08-01-2024 Lymphocytes Auto (Unsp spec) [#/Vol] 0.44 10*3/uL Low 0.83-4.51 [facility] Absolute neutrophil countOrd ered By: Carlosveena Jiménez on 08-01-2024 Neutrophils (Bld) [#/Vol] 13.2 10*3/uL High 2.0-7.7 [facility] Anion gap in Serum or Plasma Ordered By: Carlos Jiménez on 08-01-2024 Anion gap [Moles/Vol] 14 mmol/L 5-15 [facility] Automated lymphocyte count a s percentage of total leukocytesOrdered By: Carlos Jiménez on 08-01-2024 Lymphocytes/100 WBC Auto (Unsp spec) 2.8 % Low 19-41 [facility] BUN/creatinine ratioOrdered By: Carlos Jiménez on 08-01-2024 Urea nitrogen/Creatinine [Mass ratio] 10.3 mg/mg 10-20 [facility] Basophil percentageOrdered B y: Carlos Jiménez on 08-01-2024 Basophils/100 WBC (Bld) 0.6 % 0-[address] [facility] Bilirubin Test strip Ql (U)O rdered By: Bill Camacho on 08-01-2024 Bilirubin Ql (U) Negative Negative [facility] Bilirubin, totalOrdered By: Carlos Jiménez on 08-01-2024 Bilirubin [Mass/Vol] 0.56 mg/dL 0.00-1.30 [facility] Blood cultureOrdered By: Carlos Jiménez on 08-01-2024 Bacteria identified Cx Nom (Bld) No growth in 5 days. [facility] CBC W/Diff, Automatedon 07-08 Absolute Lymph 0.44 X10 3/uL Low 0.83-4.51 [facility] Comment on above: Performed By: #### L 503.6005, L100.0100, L500.4050 ####[facility] [address] [place], [address] Absolute Neut 13.2 X10 3/uL High 2.0-7.7 [facility] Comment on above: Performed By: #### L 503.6005, L100.0100, L500.4050 ####[facility] [address] [place], [address] Basophils/100 WBC (Bld) 0.6 % Normal 0-[address] [facility] Comment on above: Performed By: #### L 503.6005, L100.0100, L500.4050 ####[facility] [address] [place], [address] Eosinophils/100 WBC (Bld) 8.2 % High 0-5 [facility] Comment on above: Performed By: #### L 503.6005, L100.0100, L500.4050 ####[facility] [address] [place], [address] Erythrocyte distribution width (RBC) [Ratio] 14.3 % Normal 11.6-14.6 [facility] Comment on above: Performed By: #### L 503.6005, L100.0100, L500.4050 ####[facility] [address] [place], [address] Hematocrit (Bld) [Volume fraction] 43.2 % Normal 37-47 [facility] Comment on above: Performed By: #### L 503.6005, L100.0100, L500.4050 ####[facility] [address] [place], [address] Hemoglobin (Bld) [Mass/Vol] 14.0 g/dL Normal 12.0-15.0 [facility] Comment on above: Performed By: #### L 503.6005, L100.0100, L500.4050 ####[facility] [address] [place], [address] IG% 0.600 Normal 0.0-0.9 [facility] Comment on above: Result Comment: IG% - Immature Granulocytes (promyelocytes, myelocytes andmetamyelocytes) > 1% indicates that a LEFT SHIFT is Present. Performed By: #### L 503.6005, L100.0100, L500.4050 ####[facility] [address] [place], [address] Lymphocytes/100 WBC (Bld) 2.8 % Low 19-41 [facility] Comment on above: Performed By: #### L 503.6005, L100.0100, L500.4050 ####[facility] [address] [place], [address] MCH (RBC) [Entitic mass] 30.0 pg Normal 27.0-32.0 [facility] Comment on above: Performed By: #### L 503.6005, L100.0100, L500.4050 ####[facility] [address] [place], [address] MCHC (RBC) [Mass/Vol] 32.4 g/dL Normal 32-36 [facility] Comment on above: Performed By: #### L 503.6005, L100.0100, L500.4050 ####[facility] [address] [place], [address] MCV (RBC) [Entitic vol] 92.5 fL Normal 81-99 [facility] Comment on above: Performed By: #### L 503.6005, L100.0100, L500.4050 ####[facility] [address] [place], [address] Monocytes/100 WBC (Bld) 5.2 % Normal 0-[address] [facility] Comment on above: Performed By: #### L 503.6005, L100.0100, L500.4050 ####[facility] [address] [place], [address] Neutrophils/100 WBC (Bld) 82.6 % High 47-70 [facility] Comment on above: Performed By: #### L 503.6005, L100.0100, L500.4050 ####[facility] [address] [place], [address] Nucleated RBC (Bld) [#/Vol] 0 10*3/uL Normal 0-5 [facility] Comment on above: Performed By: #### L 503.6005, L100.0100, L500.4050 ####[facility] [address] [place], [address] Platelet mean volume (Bld) [Entitic vol] 10.0 fL Normal 6.2-12.0 [facility] Comment on above: Performed By: #### L 503.6005, L100.0100, L500.4050 ####[facility] [address] [place], [address] Platelets (Bld) [#/Vol] 290 10*3/uL Normal 150-450 [facility] Comment on above: Performed By: #### L 503.6005, L100.0100, L500.4050 ####[facility] [address] [place], [address] RBC (Bld) [#/Vol] 4.67 10*6/uL Normal 4.2-5.4 [facility] Comment on above: Performed By: #### L 503.6005, L100.0100, L500.4050 ####[facility] [address] [place], [address] RDW SD 47.8 fl High 35.1-43.9 [facility] Comment on above: Performed By: #### L 503.6005, L100.0100, L500.4050 ####[facility] [address] [place], [address] WBC (Bld) [#/Vol] 16.0 10*3/uL High 4.4-11.0 [facility] Comment on above: Performed By: #### L 503.6005, L100.0100, L500.4050 ####[facility] [address] [place], [address] Carbon dioxide, total [Moles /volume] in Central venous bloodOrdered By: Carlos Jiménez on 08-01-2024 CO2 [Moles/Vol] 24.0 mmol/L 21.0-32.0 [facility] Chest PA and Lateralon 08-01 Chest PA and Lateral Normal [facility] Chloride assayOrdered By: Ug o Jiménez on 08-01-2024 Chloride [Moles/Vol] 99 mmol/L 98-108 [facility] Comprehensive Metabolic Prof ilon 08-01-2024 Albumin [Mass/Vol] 3.6 g/dL Normal 3.4-4.8 [facility] Comment on above: Performed By: #### L 503.6005, L100.0100, L500.4050 ####[facility] [address] [place], [address] Albumin/Globulin [Mass ratio] 1.2 {ratio} Normal 0.9-2.4 [facility] Comment on above: Performed By: #### L 503.6005, L100.0100, L500.4050 ####[facility] [address] [place], [address] ALK PHOS 123 U/L High 35-104 [facility] Comment on above: Performed By: #### L 503.6005, L100.0100, L500.4050 ####[facility] [address] [place], [address] ALT [Catalytic activity/Vol] 37 U/L High <=34 [facility] Comment on above: Performed By: #### L 503.6005, L100.0100, L500.4050 ####[facility] [address] [place], [address] AST [Catalytic activity/Vol] 46 U/L High <=31 [facility] Comment on above: Result Comment: Hemo lysis present, Results??could be affected.?? Performed By: #### L 503.6005, L100.0100, L500.4050 ####[facility] [address] [place], [address] Bilirubin [Mass/Vol] 0.56 mg/dL Normal 0.00-1.30 [facility] Comment on above: Performed By: #### L 503.6005, L100.0100, L500.4050 ####[facility] [address] [place], [address] BUN/CRE 10.3 RATIO Normal 10-20 [facility] Comment on above: Performed By: #### L 503.6005, L100.0100, L500.4050 ####[facility] [address] [place], [address] Calcium [Mass/Vol] 9.7 mg/dL Normal 7.6-11.0 [facility] Comment on above: Performed By: #### L 503.6005, L100.0100, L500.4050 ####[facility] [address] [place], [address] Chloride [Moles/Vol] 99 mmol/L Normal 98-108 [facility] Comment on above: Performed By: #### L 503.6005, L100.0100, L500.4050 ####[facility] [address] [place], [address] CO2 [Moles/Vol] 24.0 mmol/L Normal 21.0-32.0 [facility] Comment on above: Performed By: #### L 503.6005, L100.0100, L500.4050 ####[facility] [address] [place], [address] Creatinine [Mass/Vol] 1.33 mg/dL High 0.70-1.20 [facility] Comment on above: Performed By: #### L 503.6005, L100.0100, L500.4050 ####[facility] [address] [place], [address] ECRCL 43.17 ml/min Low 50-250 [facility] Comment on above: Performed By: #### L 503.6005, L100.0100, L500.4050 ####[facility] [address] [place], [address] GAP 14 Normal 5-15 [facility] Comment on above: Performed By: #### L 503.6005, L100.0100, L500.4050 ####[facility] [address] [place], [address] GFR/1.73 sq M.predicted among non-blacks MDRD (S/P/Bld) [Vol rate/Area] 44 mL/min/{1.73_m2} Low >60 [facility] Comment on above: Result Comment: mL/m in/1.73m2 CKD-EPI Creatinine Equation (2020) Performed By: #### L 503.6005, L100.0100, L500.4050 ####[facility] [address] [place], [address] Globulin (S) [Mass/Vol] 2.9 g/dL Normal 2.2-4.2 [facility] Comment on above: Performed By: #### L 503.6005, L100.0100, L500.4050 ####[facility] [address] [place], [address] Glucose [Mass/Vol] 147 mg/dL High 70-99 [facility] Comment on above: Performed By: #### L 503.6005, L100.0100, L500.4050 ####[facility] [address] [place], [address] Potassium [Moles/Vol] 4.3 mmol/L Normal 3.3-5.1 [facility] Comment on above: Result Comment: Hemo lysis present, Results??could be affected.?? Performed By: #### L 503.6005, L100.0100, L500.4050 ####[facility] [address] [place], [address] Sodium [Moles/Vol] 137 mmol/L Normal 133-145 [facility] Comment on above: Performed By: #### L 503.6005, L100.0100, L500.4050 ####[facility] [address] [place], [address] T PROT 6.5 g/dL Normal 5.9-8.4 [facility] Comment on above: Performed By: #### L 503.6005, L100.0100, L500.4050 ####[facility] [address] [place], [address] Urea nitrogen [Mass/Vol] 14 mg/dL Normal 4-19 [facility] Comment on above: Performed By: #### L 503.6005, L100.0100, L500.4050 ####[facility] [address] [place], [address] Emergency Department Summary on 08-01-2024 Emergency Department Summary Normal [facility] Eosinophil percentageOrdered By: Carlosveena Jiménez on 08-01-2024 Eosinophils/100 WBC (Bld) 8.2 % High 0-5 [facility] Erythrocyte distribution wid th ratioOrdered By: Carlosveena Jiménez on 08-01-2024 Erythrocyte distribution width (RBC) [Ratio] 14.3 % 11.6-14.6 [facility] Erythrocyte distribution wid th standard deviationOrdered By: Carlos Jiménez on 08-01-2024 Erythrocyte distribution width (RBC) [Ratio] 47.8 fl High 35.1-43.9 [facility] Glomerular filtration rate ( GFR) estimation/1.73 sq m using serum, plasma, or whole bOrdered By: Carlosveena Jiménez on 08-01-2024 GFR/1.73 sq M.predicted among non-blacks MDRD (S/P/Bld) [Vol rate/Area] 44 mL/min/{1.73_m2} Low >60 [facility] Comment on above: mL/min/1.73m2 CKD-EP I Creatinine Equation (2020) H AND P Exam - Hospitaliston 08-01-2024 H&P Exam - Hospitalist Normal [facility] Hematocrit Auto (Bld) [Volum e fraction]Ordered By: Carlos Jiménez on 08-01-2024 Hematocrit (Bld) [Volume fraction] 43.2 % 37-47 [facility] Hemoglobin measurementOrdere d By: Carlosveena Jiménez on 08-01-2024 Hemoglobin (Bld) [Mass/Vol] 14.0 g/dL 12.0-15.0 [facility] Hyaline casts LM.LPF (Urine sed) [#/Area]Ordered By: Bill Camacho on 08-01-2024 Hyaline casts (Urine sed) [#/Area] 0 /[LPF] 0-5 [facility] Immature granulocytes/100 WB C Auto (Bld)Ordered By: Carlosveena Jiménez on 08-01-2024 Immature granulocytes/100 WBC (Bld) 0.600 % 0.0-0.9 [facility] Comment on above: IG% - Immature Granu locytes (promyelocytes, myelocytes and metamyelocytes) > 1% indicates that a LEFT SHIFT is Present. Influenza virus A and B and SARS-CoV-2 (COVID-19) and Respiratory syncytial virus RNAOrdered By: Carlos Jiménez on 08-01-2024 SARS-CoV-2 (COVID-19) RNA RON+probe Ql (Unsp spec) [facility] Ketones Test strip Ql (U)Ord ered By: Bill Camacho on 08-01-2024 Ketones Ql (U) 5 mg/dl High Negative [facility] Laboratory - Chemistry and C hemistry - challengeOrdered By: Carlos Jiménez on 08-01-2024 AST [Catalytic activity/Vol] 46 U/L High <32 [facility] Comment on above: Hemolysis present, R esults could be affected. Lactic Acidon 08-01-2024 Lactate [Moles/Vol] 2.4 mmol/L Invalid Interpretation Code 0.0-2.0 [facility] Comment on above: Result Comment: Crit ical Result(s) Called at 1752: by CHIQUI HARRISON. Results read back by same. Performed By: #### L 503.6005 ####[facility] [address] [facility] [place], [place], [id number] Lactate [Moles/Vol] 2.7 mmol/L Invalid Interpretation Code 0.0-2.0 [facility] Comment on above: Order Comment: Y Result Comment: Crit ical Result(s) Called at 1353: by: CHIQUI LOUIE. ??Results read back by same. Performed By: #### L 503.6005, L100.0100, L500.4050 ####[facility] [address] [facility] [place], [place], [id number] Lactic acid measurementOrder ed By: Carlos Jiménez on 08-01-2024 Lactate [Moles/Vol] 2.4 mmol/L High 0.0-2.0 [facility] Comment on above: Critical Result(s) C alled at 1752: by CHIQUI CHO. Results read back by same. Lactate [Moles/Vol] 2.7 mmol/L High 0.0-2.0 [facility] Comment on above: Critical Result(s) C alled at 1353: by: CHIQUI PARKER. Results read back by same. Legionella Antigen Urineon 0 08-01-2024 LEGU Normal [facility] Comment on above: Performed By: #### M 100.2200, M300.4500, M300.4600 ####[facility] [address] [place], [address] M R Staph Aureus DNA by PCRo n 08-01-2024 MRSA DNA ASSAY Normal Negative [facility] Comment on above: Result Comment: DISC HARGED FROM FLOOR Performed By: #### L 8200.1000 ####[facility] [address] [place], [address] PROBE CHECK Normal [facility] Comment on above: Result Comment: DISC HARGED FROM FLOOR Performed By: #### L 8200.1000 ####[facility] [address] [place], [address] SPC Normal [facility] Comment on above: Result Comment: DISC HARGED FROM FLOOR Performed By: #### L 8200.1000 ####[facility] [address] [place], [address] M100.678on 08-01-2024 M100.678 Pending SARS-CoV-2 (COVID 19) Negative INFLUENZA A Negative INFLUENZA B Negative RSV PCR Negative Normal [facility] Comment on above: Performed By: #### M 100.678 ####[facility] [address] [place], [address] MCV (mean corpuscular volume ) determinationOrdered By: Calros Jiménez on 08-01-2024 MCV (RBC) [Entitic vol] 92.5 fL 81-[address] [facility] Mean corpuscular hemoglobin (MCH) determinationOrdered By: Carlos Jiménez on 08-01-2024 MCH (RBC) [Entitic mass] 30.0 pg 27.0-32.0 [facility] Mean corpuscular hemoglobin concentration (MCHC) determinationOrdered By: Carlos Jiménez on 08-01-2024 MCHC (RBC) [Mass/Vol] 32.4 g/dL 32-36 [facility] Mean platelet volume determi nationOrdered By: Carlos Jiménez on 08-01-2024 Platelet mean volume (Bld) [Entitic vol] 10.0 fL 6.2-12.0 [facility] Microscopic analysis of urin e for red blood cells (RBC)Ordered By: Bill Camacho on 08-01-2024 Microscopic analysis of urine for red blood cells (RBC) 0-5 SEEN /hpf 0-5 [facility] Monocyte percentageOrdered B y: Carlos Jiménez on 08-01-2024 Monocytes/100 WBC (Bld) 5.2 % 0-[address] [facility] Mucus LM Ql (Urine sed)Order ed By: Bill Camacho on 08-01-2024 Mucus Ql (Urine sed) 0 SEEN /hpf [facility] Neutrophil percentageOrdered By: Carlos Jiménez on 08-01-2024 Neutrophils/100 WBC (Bld) 82.6 % High 47-70 [facility] Nitrite Test strip Ql (U)Ord ered By: Bill Camacho on 08-01-2024 Nitrite Ql (U) Negative Negative [facility] No Panel InformationOrdered By: Carlos Jiménez on 08-01-2024 46 U/L High <32 [facility] Nucleated red blood cell per centageOrdered By: Carlos Jiménez on 08-01-2024 Nucleated RBC/100 WBC (Bld) [Ratio] 0 % 0-5 [facility] Platelet countOrdered By: Brittani Jiménez on 08-01-2024 Platelets (Bld) [#/Vol] 290 10*3/uL 150-450 [facility] Potassium measurement (mass/ volume)Ordered By: Carlos Jiménez on 08-01-2024 Potassium (Unsp spec) [Mass/Vol] 4.3 mmol/L 3.3-5.1 [facility] Comment on above: Hemolysis present, R esults could be affected. Protein Test strip Ql (U)Ord ered By: Bill Camacho on 08-01-2024 Protein Ql (U) 15 mg/dl High Negative [facility] RBC Auto (Bld) [#/Vol]Ordere d By: Carlos Jiménez on 08-01-2024 RBC (Bld) [#/Vol] 4.67 10*6/uL 4.2-5.4 [facility] Serum creatinine measurement (mass/volume)Ordered By: Carlos Jiménez on 08-01-2024 Creatinine [Mass/Vol] 1.33 mg/dL High 0.70-1.20 [facility] Serum globulin measurementOr dered By: Carlos Jiménez on 08-01-2024 Globulin (S) [Mass/Vol] 2.9 g/dL 2.2-4.[address] [facility] Serum glucose measurement (m ass/volume)Ordered By: Carlos Jiménez on 08-01-2024 Glucose [Mass/Vol] 147 mg/dL High 70-99 [facility] Serum or plasma alanine mckay otransferase (ALT) measurementOrdered By: Carlos Jiménez on 08-01-2024 ALT [Catalytic activity/Vol] 37 U/L High <35 [facility] Serum or plasma albumin israel urement (mass/volume)Ordered By: Carlos Jiménez on 08-01-2024 Albumin [Mass/Vol] 3.6 g/dL 3.4-4.8 [facility] Serum or plasma albumin/glob ulin mass ratioOrdered By: Carlos Jiménez on 08-01-2024 Albumin/Globulin [Mass ratio] 1.2 {ratio} 0.9-2.4 [facility] Serum or plasma alkaline leo sphatase measurementOrdered By: Carlos Jiménez on 08-01-2024 ALP [Catalytic activity/Vol] 123 U/L High 35-104 [facility] Serum or plasma calcium israel urement (mass/volume)Ordered By: Carlos Jiménez on 08-01-2024 Calcium [Mass/Vol] 9.7 mg/dL 7.6-11.0 [facility] Serum or plasma urea nitroge n measurement (mass/volume)Ordered By: Carlos Jiménez on 08-01-2024 Urea nitrogen [Mass/Vol] 14 mg/dL 4-19 [facility] Sodium levelOrdered By: Carlos Jiménez on 08-01-2024 Sodium [Moles/Vol] 137 mmol/L 133-145 [facility] Squamous epithelial cells de tection in urine sediment by light microscopyOrdered By: Bill Camacho on 08-01-2024 Epithelial cells.squamous LM Ql (Urine sed) 0-5 SEEN /hpf 5-10 [facility] Strep pneumoniae Antig(UR,CS F)on 08-01-2024 STPAG Normal [facility] Comment on above: Performed By: #### M 100.2200, M300.4500, M300.4600 ####[facility] [address] [place], [address] Total proteinOrdered By: Carlos Jiménez on 08-01-2024 Protein [Mass/Vol] 6.5 g/dL 5.9-8.4 [facility] Urinalysis, Completeon 08-01 CAST,HYALINE 0-5 SEEN Normal 0-5 [facility] Comment on above: Order Comment: CLEAN CATCH Performed By: #### L 400.0001 ####[facility] [address] [place], [address] EPI,SQUAMOUS 0-5 SEEN Normal 5-10 [facility] Comment on above: Order Comment: CLEAN CATCH Performed By: #### L 400.0001 ####[facility] [address] [place], [address] RBC 0-5 SEEN Normal 0-5 [facility] Comment on above: Order Comment: CLEAN CATCH Performed By: #### L 400.0001 ####[facility] [address] [place], [address] WBC 0-5 SEEN Normal 0-5 [facility] Comment on above: Order Comment: CLEAN CATCH Performed By: #### L 400.0001 ####[facility] [address] [place], [address] BACTERIA 0 SEEN Normal None Seen [facility] Comment on above: Order Comment: CLEAN CATCH Performed By: #### L 400.0001 ####[facility] [address] [place], [address] Mucus Ql (Urine sed) 0 SEEN Normal [facility] Comment on above: Order Comment: CLEAN CATCH Performed By: #### L 400.0001 ####[facility] [address] [place], [address] Urine Legionella pneumophila antigen detectionOrdered By: Bill Camacho on 08-01-2024 L. pneumophila Ag Ql (U) [facility] Urine clarityOrdered By: Lilliana Camacho on 08-01-2024 Clarity (U) Clear Clear [facility] Urine color determinationOrd ered By: Bill Camacho on 08-01-2024 Color (U) Yellow Yellow [facility] Urine cultureOrdered By: Lilliana Camacho on 08-01-2024 Bacteria identified Cx Nom (U) Negative Abnormal [facility] Urine glucose detectionOrder ed By: Bill Camacho on 08-01-2024 Glucose Ql (U) Normal mg/dl Normal [facility] Urine leukocyte esterase det ection by dipstickOrdered By: Bill Camacho on 08-01-2024 Leukocyte esterase Test strip Ql (U) 25 /ul High Negative [facility] Urine pHOrdered By: Bill roy on 08-01-2024 pH (U) 6.0 [pH] 5.0 - 8.0 [facility] Urine sediment bacteria coun t by microscopy (number/high power field)Ordered By: Bill Camacho on 08-01-2024 Bacteria LM.HPF (Urine sed) [#/Area] 0 /[HPF] None Seen [facility] Urine specific gravity measu rementOrdered By: Bill Camacho on 08-01-2024 Specific gravity (U) [Rel density] 1.010 1.002-1.03 0 [facility] Urine urobilinogen measureme ntOrdered By: Bill Camacho on 08-01-2024 Urobilinogen Ql (U) Normal mg/dl Normal [facility] White blood cell (WBC) count Ordered By: Carlos Jiménez on 08-01-2024 WBC (Bld) [#/Vol] 16.0 10*3/uL High 4.4-11.0 [facility] White blood cell countOrdere d By: Bill Camacho on 08-01-2024 White blood cell count 0-5 SEEN /hpf 0-5 [facility] Respiratory Cultureon 2024 RESPC Normal [facility] Comment on above: Performed By: #### M 100.2400, M100.1999 ####[facility] [address] [place], [place], [address] Gram Stainon 07-21-2024 GS Acceptable Specimen? Yes (<25 Epithelial cells per/lpf) Gram Stain 4+ Gram positive cocci 2+ Gram negative diplococci 3+ White Blood Cells No Epithelial cells Normal [facility] Comment on above: Performed By: #### M 100.2400, M100.1999 ####[facility] [address] [place], [place], [address] Gram stainOrdered By: Shahab robert on 07-20-2024 Microscopic observation Gram stain Nom (Unsp spec) [facility] Microbial respiratory cultur eOrdered By: Shahab Adams on 07-20-2024 Microorganism identified Cx Nom (Unsp spec) Meth. resistant Staph. aureus Abnormal [facility] Pulmonary Visit Reporton Pulmonary Visit Report Normal [facility] 12 Lead EKGon 07-08-2024 12 Lead EKG Normal [facility] Absolute lymphocyte countOrd ered By: Chrissy Cabrera on 07-08-2024 Lymphocytes Auto (Unsp spec) [#/Vol] 0.83 10*3/uL 0.83-4.51 [facility] Absolute neutrophil countOrd ered By: Chrissy Cabrera on 07-08-2024 Neutrophils (Bld) [#/Vol] 12.9 10*3/uL High 2.0-7.7 [facility] Anion gap in Serum or Plasma Ordered By: Chrissy Cabrera on 07-08-2024 Anion gap [Moles/Vol] 10 mmol/L 5-15 [facility] Automated lymphocyte count a s percentage of total leukocytesOrdered By: Chrissy Cabrera on 07-08-2024 Lymphocytes/100 WBC Auto (Unsp spec) 5.4 % Low 19-41 [facility] BUN/creatinine ratioOrdered By: Chrissy Cabrera on 07-08-2024 Urea nitrogen/Creatinine [Mass ratio] 21.9 mg/mg High 10-20 [facility] Basic Metabolic Profile (BMP )on 07-08-2024 BUN/CRE 21.9 RATIO High 10-20 [facility] Comment on above: Performed By: #### L 500.2500, L100.0100 ####[facility] [address] [place], [address] Calcium [Mass/Vol] 9.7 mg/dL Normal 7.6-11.0 [facility] Comment on above: Performed By: #### L 500.2500, L100.0100 ####[facility] [address] [place], [address] Chloride [Moles/Vol] 96 mmol/L Low 98-108 [facility] Comment on above: Performed By: #### L 500.2500, L100.0100 ####[facility] [address] [place], [address] CO2 [Moles/Vol] 27.9 mmol/L Normal 21.0-32.0 [facility] Comment on above: Performed By: #### L 500.2500, L100.0100 ####[facility] [address] [place], [address] Creatinine [Mass/Vol] 0.93 mg/dL Normal 0.70-1.20 [facility] Comment on above: Performed By: #### L 500.2500, L100.0100 ####[facility] [address] [place], [address] ECRCL 61.92 ml/min Normal 50-250 [facility] Comment on above: Performed By: #### L 500.2500, L100.0100 ####[facility] [address] [place], [address] GAP 10 Normal 5-15 [facility] Comment on above: Performed By: #### L 500.2500, L100.0100 ####[facility] [address] [place], [address] GFR/1.73 sq M.predicted among non-blacks MDRD (S/P/Bld) [Vol rate/Area] 68 mL/min/{1.73_m2} Normal >60 [facility] Comment on above: Result Comment: mL/m in/1.73m2 CKD-EPI Creatinine Equation (2020) Performed By: #### L 500.2500, L100.0100 ####[facility] [address] [place], [address] Glucose [Mass/Vol] 185 mg/dL High 70-99 [facility] Comment on above: Performed By: #### L 500.2500, L100.0100 ####[facility] [address] [place], [address] Potassium [Moles/Vol] 4.2 mmol/L Normal 3.3-5.1 [facility] Comment on above: Performed By: #### L 500.2500, L100.0100 ####[facility] [address] [place], [address] Sodium [Moles/Vol] 134 mmol/L Normal 133-145 [facility] Comment on above: Performed By: #### L 500.2500, L100.0100 ####[facility] [address] [place], [address] Urea nitrogen [Mass/Vol] 20 mg/dL High 4-19 [facility] Comment on above: Performed By: #### L 500.2500, L100.0100 ####[facility] [address] [place], [address] Basophil percentageOrdered B y: Chrissy Cabrera on 07-08-2024 Basophils/100 WBC (Bld) 0.3 % 0-[address] [facility] CBC W/Diff, Automatedon Absolute Lymph 0.83 X10 3/uL Normal 0.83-4.51 [facility] Comment on above: Performed By: #### L 500.2500, L100.0100 ####[facility] [address] [place], [address] Absolute Neut 12.9 X10 3/uL High 2.0-7.7 [facility] Comment on above: Performed By: #### L 500.2500, L100.0100 ####[facility] [address] [place], [address] Basophils/100 WBC (Bld) 0.3 % Normal 0-[address] [facility] Comment on above: Performed By: #### L 500.2500, L100.0100 ####[facility] [address] [place], [address] Eosinophils/100 WBC (Bld) 6.1 % High 0-5 [facility] Comment on above: Performed By: #### L 500.2500, L100.0100 ####[facility] [address] [place], [address] Erythrocyte distribution width (RBC) [Ratio] 13.6 % Normal 11.6-14.6 [facility] Comment on above: Performed By: #### L 500.2500, L100.0100 ####[facility] [address] [place], [address] Hematocrit (Bld) [Volume fraction] 41.0 % Normal 37-47 [facility] Comment on above: Performed By: #### L 500.2500, L100.0100 ####[facility] [address] [place], [address] Hemoglobin (Bld) [Mass/Vol] 13.8 g/dL Normal 12.0-15.0 [facility] Comment on above: Performed By: #### L 500.2500, L100.0100 ####[facility] [address] [place], [address] IG% 0.500 Normal 0.0-0.9 [facility] Comment on above: Result Comment: IG% - Immature Granulocytes (promyelocytes, myelocytes andmetamyelocytes) > 1% indicates that a LEFT SHIFT is Present. Performed By: #### L 500.2500, L100.0100 ####[facility] [address] [place], [address] Lymphocytes/100 WBC (Bld) 5.4 % Low 19-41 [facility] Comment on above: Performed By: #### L 500.2500, L100.0100 ####[facility] [address] [place], [address] MCH (RBC) [Entitic mass] 30.0 pg Normal 27.0-32.0 [facility] Comment on above: Performed By: #### L 500.2500, L100.0100 ####[facility] [address] [place], [address] MCHC (RBC) [Mass/Vol] 33.7 g/dL Normal 32-36 [facility] Comment on above: Performed By: #### L 500.2500, L100.0100 ####[facility] [address] [place], [address] MCV (RBC) [Entitic vol] 89.1 fL Normal 81-[address] [facility] Comment on above: Performed By: #### L 500.2500, L100.0100 ####[facility] [address] [place], [address] Monocytes/100 WBC (Bld) 3.6 % Normal 0-[address] [facility] Comment on above: Performed By: #### L 500.2500, L100.0100 ####[facility] [address] [place], [address] Neutrophils/100 WBC (Bld) 84.1 % High 47-70 [facility] Comment on above: Performed By: #### L 500.2500, L100.0100 ####[facility] [address] [place], [address] Nucleated RBC (Bld) [#/Vol] 0 10*3/uL Normal 0-5 [facility] Comment on above: Performed By: #### L 500.2500, L100.0100 ####[facility] [address] [place], [address] Platelet mean volume (Bld) [Entitic vol] 9.8 fL Normal 6.2-12.0 [facility] Comment on above: Performed By: #### L 500.2500, L100.0100 ####[facility] [address] [place], [address] Platelets (Bld) [#/Vol] 265 10*3/uL Normal 150-450 [facility] Comment on above: Performed By: #### L 500.2500, L100.0100 ####[facility] [address] [place], [address] RBC (Bld) [#/Vol] 4.60 10*6/uL Normal 4.2-5.4 [facility] Comment on above: Performed By: #### L 500.2500, L100.0100 ####[facility] [address] [place], [address] RDW SD 44.0 fl High 35.1-43.9 [facility] Comment on above: Performed By: #### L 500.2500, L100.0100 ####[facility] [address] [place], [address] WBC (Bld) [#/Vol] 15.3 10*3/uL High 4.4-11.0 [facility] Comment on above: Performed By: #### L 500.2500, L100.0100 ####[facility] [address] [place], [place], [id number] Carbon dioxide, total [Moles /volume] in Central venous bloodOrdered By: Chrissy Cabrera on 07-08-2024 CO2 [Moles/Vol] 27.9 mmol/L 21.0-32.0 [facility] Chest PA and Lateralon 07-08 Chest PA and Lateral Normal [facility] Chloride assayOrdered By: Hayden Cabrera on 07-08-2024 Chloride [Moles/Vol] 96 mmol/L Low 98-108 [facility] Emergency Department Summary on 07-08-2024 Emergency Department Summary Normal [facility] Eosinophil percentageOrdered By: Chrissy Cabrera on 07-08-2024 Eosinophils/100 WBC (Bld) 6.1 % High 0-5 [facility] Erythrocyte distribution wid th ratioOrdered By: Chrissy Cabrera on 07-08-2024 Erythrocyte distribution width (RBC) [Ratio] 13.6 % 11.6-14.6 [facility] Erythrocyte distribution wid th standard deviationOrdered By: Chrissy Cabrera on 07-08-2024 Erythrocyte distribution width (RBC) [Ratio] 44.0 fl High 35.1-43.9 [facility] Glomerular filtration rate ( GFR) estimation/1.73 sq m using serum, plasma, or whole bOrdered By: Chrissy Cabrera on 07-08-2024 GFR/1.73 sq M.predicted among non-blacks MDRD (S/P/Bld) [Vol rate/Area] 68 mL/min/{1.73_m2} >60 [facility] Comment on above: mL/min/1.73m2 CKD-EP I Creatinine Equation (2020) Hematocrit Auto (Bld) [Volum e fraction]Ordered By: Chrissy Cabrera on 07-08-2024 Hematocrit (Bld) [Volume fraction] 41.0 % 37-47 [facility] Hemoglobin measurementOrdere d By: Chrissymelvi Cabrera on 07-08-2024 Hemoglobin (Bld) [Mass/Vol] 13.8 g/dL 12.0-15.0 [facility] Immature granulocytes/100 WB C Auto (Bld)Ordered By: Chrissy Cabrera on 07-08-2024 Immature granulocytes/100 WBC (Bld) 0.500 % 0.0-0.9 [facility] Comment on above: IG% - Immature Granu locytes (promyelocytes, myelocytes and metamyelocytes) > 1% indicates that a LEFT SHIFT is Present. Influenza virus A and B and SARS-CoV-2 (COVID-19) and Respiratory syncytial virus RNAOrdered By: Chrissy Cabrera on 07-08-2024 SARS-CoV-2 (COVID-19) RNA RON+probe Ql (Unsp spec) [facility] L499.0042on 07-08-2024 Trop T High Sen Normal <=14 [facility] Comment on above: Result Comment: Canc elled via OM: Ordered Performed By: #### L 499.0042 ####[facility] [address] [place], [address] L499.0043on 07-08-2024 Trop T High Sen Normal <=14 [facility] Comment on above: Result Comment: Paulette elled via OM: Ordered Performed By: #### L 499.0043 ####[facility] [address] [place], [address] L501.4021on 07-08-2024 Trop T High Sen 30 ng/L High <=14 [facility] Comment on above: Performed By: #### L 501.4021 ####[facility] [address] [place], [address] M100.678on 07-08-2024 M100.678 Pending SARS-CoV-2 (COVID 19) Negative INFLUENZA A Negative INFLUENZA B Negative RSV PCR Negative Normal [facility] Comment on above: Performed By: #### M 100.678 ####[facility] [address] [place], [address] MCV (mean corpuscular volume ) determinationOrdered By: Chrissy Cabrera on 07-08-2024 MCV (RBC) [Entitic vol] 89.1 fL 81-[address] [facility] Mean corpuscular hemoglobin (MCH) determinationOrdered By: Chrissy Cabrera on 07-08-2024 MCH (RBC) [Entitic mass] 30.0 pg 27.0-32.0 [facility] Mean corpuscular hemoglobin concentration (MCHC) determinationOrdered By: Chrissy Cabrera on 07-08-2024 MCHC (RBC) [Mass/Vol] 33.7 g/dL 32-36 [facility] Mean platelet volume determi nationOrdered By: Chrissy Cabrera on 07-08-2024 Platelet mean volume (Bld) [Entitic vol] 9.8 fL 6.2-12.0 [facility] Monocyte percentageOrdered B y: Chrissy Cabrera on 07-08-2024 Monocytes/100 WBC (Bld) 3.6 % 0-[address] [facility] Neutrophil percentageOrdered By: Chrissy Cabrera on 07-08-2024 Neutrophils/100 WBC (Bld) 84.1 % High 47-70 [facility] Nucleated red blood cell per centageOrdered By: Chrissy Cabrera on 07-08-2024 Nucleated RBC/100 WBC (Bld) [Ratio] 0 % 0-5 [facility] Platelet countOrdered By: Hayden Cabrera on 07-08-2024 Platelets (Bld) [#/Vol] 265 10*3/uL 150-450 [facility] Potassium measurement (mass/ volume)Ordered By: Chrissy Cabrera on 07-08-2024 Potassium (Unsp spec) [Mass/Vol] 4.2 mmol/L 3.3-5.1 [facility] RBC Auto (Bld) [#/Vol]Ordere d By: Chrissy Cabrera on 07-08-2024 RBC (Bld) [#/Vol] 4.60 10*6/uL 4.2-5.4 [facility] Serum creatinine measurement (mass/volume)Ordered By: Chrissy Cabrera on 07-08-2024 Creatinine [Mass/Vol] 0.93 mg/dL 0.70-1.20 [facility] Serum glucose measurement (m ass/volume)Ordered By: Chrissy Cabrera on 07-08-2024 Glucose [Mass/Vol] 185 mg/dL High 70-99 [facility] Serum or plasma calcium israel urement (mass/volume)Ordered By: Chrissy Cabrera on 07-08-2024 Calcium [Mass/Vol] 9.7 mg/dL 7.6-11.0 [facility] Serum or plasma urea nitroge n measurement (mass/volume)Ordered By: Chrissy Cabrera on 07-08-2024 Urea nitrogen [Mass/Vol] 20 mg/dL High 4-19 [facility] Sodium levelOrdered By: Chrissy Cabrera on 07-08-2024 Sodium [Moles/Vol] 134 mmol/L 133-145 [facility] Troponin T.cardiac [Mass/vol ume] in Serum or Plasma by High sensitivity methodOrdered By: Chrissy Cabrera on 07-08-2024 Troponin T.cardiac High sensitivity method [Mass/Vol] 30 ng/L High <14 [facility] Comment on above: Delta: 36 on 5-1404 White blood cell (WBC) count Ordered By: Chrissy Cabrera on 07-08-2024 WBC (Bld) [#/Vol] 15.3 10*3/uL High 4.4-11.0 [facility] Culture, Blood (WB)on 2024 CUB Blood cultures x2, f rom two different sites No growth in 5 days. Normal [facility] Comment on above: Performed By: #### M 200.1000 ####[facility] [address] [place], [address] CBC W/Diff, Automatedon 06-08 PATH REV Reviewed Normal [facility] Comment on above: Result Comment: SEE REPORT IN PATIENT'S EMR AMENDED REPORT 06/30/24 1006 PATH REV previously reported as: July arash Performed By: #### L 500.4050, L100.0100 ####[facility] [address] [place], [address] Chest PA and Lateralon 06-29 Chest PA and Lateral Normal [facility] Discharge Instructionon 06-08 Discharge Instruction Normal [facility] Electrocardiogram reportOrde red By: Valentin Barrios on 06-29-2024 EKG study [facility] [address] [place] [address] 12 Lead EKG 06/27/24 1425 MR#: [id number] Acct: [id number] Name: SAVANNAH AGUIRRE Rep #:[id number] : 1960 63 From: Valentin Barrios MD Attending Dr: Dr. Shahab Warren DO Status: ADM IN Ordering Dr: Carlos Jiménez MD Date: 06/27 Location: U Sex: F C Admitted: 06/27/24 Test Reason : SOB Blood Pressure : */* mmHG Vent. Rate : 103 BPM Atrial Rate : 103 BPM P-R Int : 172 ms QRS Dur : 82 ms QT Int : 334 ms P-R-T Axes : 62 -15 59 degrees QTcB Int : 437 ms Sinus tachycardia Possible Lateral infarct (cited on or before 10-Jun-2024) Inferior-posterior infarct , age undetermined Abnormal ECG Confirmed by VALENTIN BARRIOS MD ([id number]), editorial director MOY STERLING ([id number]) on 06/29/2024 8:19:17 AM Referred By: Confirmed By: VALENTIN BARRIOS MD 06/29/24 0819 Date _ Valentin Barrios MD CC: Dr. Shahab Adams DO; Dr. Shahab Warren DO; Dr. Carlos Jiménez MD ~ Signed [facility] Work Phone: Absolute lymphocyte countOrd ered By: Maria E Strickland on 06-28-2024 Lymphocytes Auto (Unsp spec) [#/Vol] 1.20 10*3/uL 0.83-4.51 [facility] Absolute neutrophil countOrd ered By: Maria E Strickland on 06-28-2024 Neutrophils (Bld) [#/Vol] 11.2 10*3/uL High 2.0-7.7 [facility] Anion gap in Serum or Plasma Ordered By: Maria E Strickland on 06-28-2024 Anion gap [Moles/Vol] 14 mmol/L 5-15 [facility] Automated lymphocyte count a s percentage of total leukocytesOrdered By: Maria E Strickland on 06-28-2024 Lymphocytes/100 WBC Auto (Unsp spec) 9.2 % Low 19-41 [facility] BUN/creatinine ratioOrdered By: Maria E Strickland on 06-28-2024 Urea nitrogen/Creatinine [Mass ratio] 23.0 mg/mg High 10-20 [facility] Basic Metabolic Profile (BMP )on 06-28-2024 BUN/CRE 23.0 RATIO High 10-20 [facility] Comment on above: Performed By: #### L 500.2500, L100.0100, L501.9520 ####[facility] [address] [place], [address] Calcium [Mass/Vol] 9.5 mg/dL Normal 7.6-11.0 [facility] Comment on above: Performed By: #### L 500.2500, L100.0100, L501.9520 ####[facility] [address] [place], [address] Chloride [Moles/Vol] 99 mmol/L Normal 98-108 [facility] Comment on above: Performed By: #### L 500.2500, L100.0100, L501.9520 ####[facility] [address] [place], [address] CO2 [Moles/Vol] 25.2 mmol/L Normal 21.0-32.0 [facility] Comment on above: Performed By: #### L 500.2500, L100.0100, L501.9520 ####[facility] [address] [place], [address] Creatinine [Mass/Vol] 0.98 mg/dL Normal 0.70-1.20 [facility] Comment on above: Performed By: #### L 500.2500, L100.0100, L501.9520 ####[facility] [address] [place], [address] ECRCL 59.09 ml/min Normal 50-250 [facility] Comment on above: Performed By: #### L 500.2500, L100.0100, L501.9520 ####[facility] [address] [place], [address] GAP 14 Normal 5-15 [facility] Comment on above: Performed By: #### L 500.2500, L100.0100, L501.9520 ####[facility] [address] [place], [address] GFR/1.73 sq M.predicted among non-blacks MDRD (S/P/Bld) [Vol rate/Area] 64 mL/min/{1.73_m2} Normal >60 [facility] Comment on above: Result Comment: mL/m in/1.73m2 CKD-EPI Creatinine Equation (2020) Performed By: #### L 500.2500, L100.0100, L501.9520 ####[facility] [address] [place], [address] Glucose [Mass/Vol] 185 mg/dL High 70-99 [facility] Comment on above: Performed By: #### L 500.2500, L100.0100, L501.9520 ####[facility] [address] [place], [address] Potassium [Moles/Vol] 4.0 mmol/L Normal 3.3-5.1 [facility] Comment on above: Performed By: #### L 500.2500, L100.0100, L501.9520 ####[facility] [address] [place], [address] Sodium [Moles/Vol] 138 mmol/L Normal 133-145 [facility] Comment on above: Performed By: #### L 500.2500, L100.0100, L501.9520 ####[facility] [address] [place], [address] Urea nitrogen [Mass/Vol] 23 mg/dL High 4-19 [facility] Comment on above: Performed By: #### L 500.2500, L100.0100, L501.9520 ####[facility] [address] [place], [address] Basophil percentageOrdered B y: Maria E Strickland on 06-28-2024 Basophils/100 WBC (Bld) 0.4 % 0-[address] [facility] CBC W/Diff, Automatedon 06-08 Absolute Lymph 1.20 X10 3/uL Normal 0.83-4.51 [facility] Comment on above: Performed By: #### L 500.2500, L100.0100, L501.9520 ####[facility] [address] [place], [address] Absolute Neut 11.2 X10 3/uL High 2.0-7.7 [facility] Comment on above: Performed By: #### L 500.2500, L100.0100, L501.9520 ####[facility] [address] [place], [address] Basophils/100 WBC (Bld) 0.4 % Normal 0-[address] [facility] Comment on above: Performed By: #### L 500.2500, L100.0100, L501.9520 ####[facility] [address] [place], [address] Eosinophils/100 WBC (Bld) 0.0 % Normal 0-5 [facility] Comment on above: Performed By: #### L 500.2500, L100.0100, L5.20 ####[facility] [address] [place], [address] Erythrocyte distribution width (RBC) [Ratio] 13.2 % Normal 11.6-14.6 [facility] Comment on above: Performed By: #### L 500.2500, L100.0100, L501.9520 ####[facility] [address] [place], [address] Hematocrit (Bld) [Volume fraction] 39.5 % Normal 37-47 [facility] Comment on above: Performed By: #### L 500.2500, L100.0100, L5.9520 ####[facility] [address] [place], [address] Hemoglobin (Bld) [Mass/Vol] 13.3 g/dL Normal 12.0-15.0 [facility] Comment on above: Performed By: #### L 500.2500, L100.0100, L5.9520 ####[facility] [address] [place], [address] IG% 0.800 Normal 0.0-0.9 [facility] Comment on above: Result Comment: IG% - Immature Granulocytes (promyelocytes, myelocytes andmetamyelocytes) > 1% indicates that a LEFT SHIFT is Present. Performed By: #### L 500.2500, L100.0100, L5.9520 ####[facility] [address] [place], [address] Lymphocytes/100 WBC (Bld) 9.2 % Low 19-41 [facility] Comment on above: Performed By: #### L 500.2500, L100.0100, L501.9520 ####[facility] [address] [place], [address] MCH (RBC) [Entitic mass] 30.2 pg Normal 27.0-32.0 [facility] Comment on above: Performed By: #### L 500.2500, L100.0100, L501.9520 ####[facility] [address] [place], [address] MCHC (RBC) [Mass/Vol] 33.7 g/dL Normal 32-36 [facility] Comment on above: Performed By: #### L 500.2500, L100.0100, L501.9520 ####[facility] [address] [place], [address] MCV (RBC) [Entitic vol] 89.8 fL Normal 81-99 [facility] Comment on above: Performed By: #### L 500.2500, L100.0100, L501.9520 ####[facility] [address] [place], [address] Monocytes/100 WBC (Bld) 3.5 % Normal 0-10 [facility] Comment on above: Performed By: #### L 500.2500, L100.0100, L501.9520 ####[facility] [address] [place], [address] Neutrophils/100 WBC (Bld) 86.1 % High 47-70 [facility] Comment on above: Performed By: #### L 500.2500, L100.0100, L501.9520 ####[facility] [address] [place], [address] Nucleated RBC (Bld) [#/Vol] 0 10*3/uL Normal 0-5 [facility] Comment on above: Performed By: #### L 500.2500, L100.0100, L501.9520 ####[facility] [address] [place], [address] Platelet mean volume (Bld) [Entitic vol] 10.0 fL Normal 6.2-12.0 [facility] Comment on above: Performed By: #### L 500.2500, L100.0100, L501.9520 ####[facility] [address] [place], [address] Platelets (Bld) [#/Vol] 264 10*3/uL Normal 150-450 [facility] Comment on above: Performed By: #### L 500.2500, L100.0100, L501.9520 ####[facility] [address] [place], [address] RBC (Bld) [#/Vol] 4.40 10*6/uL Normal 4.2-5.4 [facility] Comment on above: Performed By: #### L 500.2500, L100.0100, L501.9520 ####[facility] [address] [place], [address] RDW SD 43.5 fl Normal 35.1-43.9 [facility] Comment on above: Performed By: #### L 500.2500, L100.0100, L501.9520 ####[facility] [address] [place], [address] WBC (Bld) [#/Vol] 13.0 10*3/uL High 4.4-11.0 [facility] Comment on above: Performed By: #### L 500.2500, L100.0100, L501.9520 ####[facility] [address] [place], [address] Carbon dioxide, total [Moles /volume] in Central venous bloodOrdered By: Maria E Strickland on 06-28-2024 CO2 [Moles/Vol] 25.2 mmol/L 21.0-32.0 [facility] Chloride assayOrdered By: Earnestine Strickland on 06-28-2024 Chloride [Moles/Vol] 99 mmol/L 98-108 [facility] Eosinophil percentageOrdered By: Maria E Strickland on 06-28-2024 Eosinophils/100 WBC (Bld) 0.0 % 0-5 [facility] Erythrocyte distribution wid th (RBC) [Ratio]Ordered By: Maria E Strickland on 06-28-2024 Erythrocyte distribution width (RBC) [Entitic vol] 43.5 fL 35.1-43.9 [facility] Erythrocyte distribution wid th ratioOrdered By: Maria E Strickland on 06-28-2024 Erythrocyte distribution width (RBC) [Ratio] 13.2 % 11.6-14.6 [facility] Erythrocyte distribution wid th standard deviationOrdered By: Maria E Strickland on 06-28-2024 Erythrocyte distribution width (RBC) [Ratio] 43.5 fl 35.1-43.9 [facility] Estimation of creatinine rashida aranceOrdered By: Maria E Strickland on 06-28-2024 Estimated Creatinine Clearance Calc 59.09 ml/min 50-250 [facility] GFR/1.73 sq M.predicted jessie g non-blacks MDRD (S/P/Bld) [Vol rate/Area]Ordered By: Maria E Strickland on 06-28-2024 Estimated GFR (MDRD) Non-Af Amer 64 >60 [facility] Comment on above: mL/min/1.73m2 CKD-EP I Creatinine Equation (2020) Glomerular filtration rate ( GFR) estimation/1.73 sq m using serum, plasma, or whole bOrdered By: Maria E Strickland on 06-28-2024 GFR/1.73 sq M.predicted among non-blacks MDRD (S/P/Bld) [Vol rate/Area] 64 mL/min/{1.73_m2} >60 [facility] Comment on above: mL/min/1.73m2 CKD-EP I Creatinine Equation (2020) Hematocrit Auto (Bld) [Volum e fraction]Ordered By: Maria E Strickland on 06-28-2024 Hematocrit (Bld) [Volume fraction] 39.5 % 37-47 [facility] Hemoglobin measurementOrdere d By: Maria E Strickland on 06-28-2024 Hemoglobin (Bld) [Mass/Vol] 13.3 g/dL 12.0-15.0 [facility] Immature granulocytes/100 WB C Auto (Bld)Ordered By: Maria E Strickland on 06-28-2024 Immature granulocytes/100 WBC (Bld) 0.800 % 0.0-0.9 [facility] Comment on above: IG% - Immature Granu locytes (promyelocytes, myelocytes and metamyelocytes) > 1% indicates that a LEFT SHIFT is Present. Lymphocytes Auto (Unsp spec) [#/Vol]Ordered By: Maria E Strickland on 06-28-2024 Lymphocytes (Bld) [#/Vol] 1.20 10*3/uL 0.83-4.51 [facility] Lymphocytes/100 WBC Auto (Un sp spec)Ordered By: Maria E Strickland on 06-28-2024 Lymphocytes/100 WBC (Bld) 9.2 % Low 19-41 [facility] MCV (mean corpuscular volume ) determinationOrdered By: Maria E Strickland on 06-28-2024 MCV (RBC) [Entitic vol] 89.8 fL 81-99 [facility] Mean corpuscular hemoglobin (MCH) determinationOrdered By: Maria E Strickland on 06-28-2024 MCH (RBC) [Entitic mass] 30.2 pg 27.0-32.0 [facility] Mean corpuscular hemoglobin concentration (MCHC) determinationOrdered By: Maria E Strickland on 06-28-2024 MCHC (RBC) [Mass/Vol] 33.7 g/dL 32-36 [facility] Mean platelet volume determi nationOrdered By: Maria E Strickland on 06-28-2024 Platelet mean volume (Bld) [Entitic vol] 10.0 fL 6.2-12.0 [facility] Monocyte percentageOrdered B y: Maria E Strickland on 06-28-2024 Monocytes/100 WBC (Bld) 3.5 % 0-[address] [facility] Neutrophil percentageOrdered By: Maria E Strickland on 06-28-2024 Neutrophils/100 WBC (Bld) 86.1 % High 47-70 [facility] Nucleated red blood cell per centageOrdered By: Maria E Strickland on 06-28-2024 Nucleated RBC/100 WBC (Bld) [Ratio] 0 % 0-5 [facility] Platelet countOrdered By: Earnestine Strickland on 06-28-2024 Platelets (Bld) [#/Vol] 264 10*3/uL 150-450 [facility] Potassium (Unsp spec) [Mass/ Vol]Ordered By: Maria E Strickland on 06-28-2024 Potassium [Moles/Vol] 4.0 mmol/L 3.3-5.1 [facility] Potassium measurement (mass/ volume)Ordered By: Maria E Strickland on 06-28-2024 Potassium (Unsp spec) [Mass/Vol] 4.0 mmol/L 3.3-5.1 [facility] RBC Auto (Bld) [#/Vol]Ordere d By: Maria E Strickland on 06-28-2024 RBC (Bld) [#/Vol] 4.40 10*6/uL 4.2-5.4 [facility] Serum creatinine measurement (mass/volume)Ordered By: Maria E Strickland on 06-28-2024 Creatinine [Mass/Vol] 0.98 mg/dL 0.70-1.20 [facility] Serum glucose measurement (m ass/volume)Ordered By: Maria E Strickland on 06-28-2024 Glucose [Mass/Vol] 185 mg/dL High 70-99 [facility] Serum or plasma calcium israel urement (mass/volume)Ordered By: Maria E Strickland on 06-28-2024 Calcium [Mass/Vol] 9.5 mg/dL 7.6-11.0 [facility] Serum or plasma urea nitroge n measurement (mass/volume)Ordered By: Maria E Strickland on 06-28-2024 Urea nitrogen [Mass/Vol] 23 mg/dL High 4-19 [facility] Sodium levelOrdered By: Leelee Strickland on 06-28-2024 Sodium [Moles/Vol] 138 mmol/L 133-145 [facility] TSH DL <= 0.005 mIU/L QnOrde red By: Maria E Strickland on 06-28-2024 Thyroid Stimulating Hormone (TSH) 0.356 uIU/mL 0.300-4.20 0 [facility] TSH Qn 0.356 uIU/mL 0.300-4.20 0 [facility] Thyroid Stim Hormone (TSH)on 06-28-2024 TSH 0.356 uIU/mL Normal 0.300-4.20 0 [facility] Comment on above: Performed By: #### L 500.2500, L100.0100, L501.9520 ####[facility] [address] [place], [place], [id number] White blood cell (WBC) count Ordered By: Maria E Strickland on 06-28-2024 WBC (Bld) [#/Vol] 13.0 10*3/uL High 4.4-11.0 [facility] 12 Lead EKGon 06-27-2024 12 Lead EKG Normal [facility] Absolute neutrophil countOrd ered By: Carlos Jiménez on 06-27-2024 Neutrophils (Bld) [#/Vol] 13.8 10*3/uL High 2.0-7.7 [facility] Anion gap in Serum or Plasma Ordered By: Carlos Jiménez on 06-27-2024 Anion gap [Moles/Vol] 12 mmol/L 5-15 [facility] Arterial patency Wrist arter y --pre arterial punctureOrdered By: Carlos Jiménez on 06-27-2024 Laury Test Positive [facility] Assessment of wrist artery p atency prior to arterial punctureOrdered By: Carlos Jiménez on 06-27-2024 Arterial patency Wrist artery --pre arterial puncture Positive [facility] BUN/creatinine ratioOrdered By: Carlos Jiménez on 06-27-2024 Urea nitrogen/Creatinine [Mass ratio] 16.7 mg/mg 10-20 [facility] Base excess Calc (BldV) [Mol es/Vol]Ordered By: Carlos Jiménez on 06-27-2024 Blood Gas Base Excess 5 mmol/L High -2-2 [facility] Basophil percentageOrdered B y: Carlos Jiménez on 06-27-2024 Basophils/100 WBC (Bld) 0.4 % 0-[address] [facility] Bilirubin, totalOrdered By: Carlos Jiménez on 06-27-2024 Bilirubin [Mass/Vol] 0.70 mg/dL 0.00-1.30 [facility] Blood Gases by CPSon 025 LAURY TEST Positive Normal [facility] Comment on above: Performed By: #### L 9000.0800 ####[facility] [address] [place], [place], [id number] Base excess Calc (Bld) [Moles/Vol] 5 mmol/L High -2 to +2 [facility] Comment on above: Performed By: #### L 9000.0800 ####[facility] [address] [place], [address] Blood Gas Type ART Normal [facility] Comment on above: Performed By: #### L 9000.0800 ####[facility] [address] [place], [address] CO2 [Moles/Vol] 30 mmol/L Normal [facility] Comment on above: Performed By: #### L 9000.0800 ####[facility] [address] [place], [address] FI02 3.0 Normal [facility] Comment on above: Performed By: #### L 9000.0800 ####[facility] [address] [place], [address] HCO3 (Bld) [Moles/Vol] 29.0 mmol/L High 22-[address] [facility] Comment on above: Performed By: #### L 9000.0800 ####[facility] [address] [place], [address] Mode Not entered Normal [facility] Comment on above: Performed By: #### L 9000.0800 ####[facility] [address] [place], [address] O2 Delivery Dev Cannula Normal [facility] Comment on above: Performed By: #### L 9000.0800 ####[facility] [address] [place], [address] pCO2 39.8 mmHg Normal 35-45 [facility] Comment on above: Performed By: #### L 9000.0800 ####[facility] [address] [place], [address] pH (Bld) 7.47 [pH] High 7.35-7.45 [facility] Comment on above: Performed By: #### L 9000.0800 ####[facility] [address] [place], [address] PO2 62 mmHG Low 75-100 [facility] Comment on above: Performed By: #### L 9000.0800 ####[facility] [address] [place], [address] SITE R Radial Normal [facility] Comment on above: Performed By: #### L 9000.0800 ####[facility] [address] [place], [address] SO2 93 Low 95-99 [facility] Comment on above: Performed By: #### L 9000.0800 ####[facility] [address] [place], [address] Blood base excess determinat ionOrdered By: Carlos Jiménez on 06-27-2024 Base excess Calc (BldV) [Moles/Vol] 5 mmol/L High -2-2 [facility] Blood bicarbonate measuremen tOrdered By: Carlos Jiménez on 06-27-2024 Blood Gas Bicarbonate Actual 29.0 mmol/L High - [facility] HCO3 (Bld) [Moles/Vol] 29.0 mmol/L High - [facility] Blood cultureOrdered By: Carlos Jiménez on 06-27-2024 Bacteria identified Cx Nom (Bld) No growth in 5 days. [facility] Bacteria identified Cx Nom (Bld) No growth in 5 days. [facility] CBC W/Diff, Automatedon 04- Absolute Lymph 1.04 X10 3/uL Normal 0.83-4.51 [facility] Comment on above: Performed By: #### L 500.4050, L503.6005, L100.0100 ####[facility] [address] [place], [address] Absolute Neut 13.8 X10 3/uL High 2.0-7.7 [facility] Comment on above: Performed By: #### L 500.4050, L503.6005, L100.0100 ####[facility] [address] [place], [address] Basophils/100 WBC (Bld) 0.4 % Normal 0-[address] [facility] Comment on above: Performed By: #### L 500.4050, L503.6005, L100.0100 ####[facility] [address] [place], [address] Eosinophils/100 WBC (Bld) 7.8 % High 0-5 [facility] Comment on above: Performed By: #### L 500.4050, L503.6005, L100.0100 ####[facility] [address] [place], [address] Erythrocyte distribution width (RBC) [Ratio] 13.4 % Normal 11.6-14.6 [facility] Comment on above: Performed By: #### L 500.4050, L503.6005, L100.0100 ####[facility] [address] [place], [address] Hematocrit (Bld) [Volume fraction] 43.3 % Normal 37-47 [facility] Comment on above: Performed By: #### L 500.4050, L503.6005, L100.0100 ####[facility] [address] [place], [address] Hemoglobin (Bld) [Mass/Vol] 14.7 g/dL Normal 12.0-15.0 [facility] Comment on above: Performed By: #### L 500.4050, L503.6005, L100.0100 ####[facility] [address] [place], [address] IG% 0.600 Normal 0.0-0.9 [facility] Comment on above: Result Comment: IG% - Immature Granulocytes (promyelocytes, myelocytes andmetamyelocytes) > 1% indicates that a LEFT SHIFT is Present. Performed By: #### L 500.4050, L503.6005, L100.0100 ####[facility] [address] [place], [address] Lymphocytes/100 WBC (Bld) 5.9 % Low 19-41 [facility] Comment on above: Performed By: #### L 500.4050, L503.6005, L100.0100 ####[facility] [address] [place], [address] MCH (RBC) [Entitic mass] 30.4 pg Normal 27.0-32.0 [facility] Comment on above: Performed By: #### L 500.4050, L503.6005, L100.0100 ####[facility] [address] [place], [address] MCHC (RBC) [Mass/Vol] 33.9 g/dL Normal 32-36 [facility] Comment on above: Performed By: #### L 500.4050, L503.6005, L100.0100 ####[facility] [address] [place], [address] MCV (RBC) [Entitic vol] 89.5 fL Normal 81-[address] [facility] Comment on above: Performed By: #### L 500.4050, L503.6005, L100.0100 ####[facility] [address] [place], [address] Monocytes/100 WBC (Bld) 6.2 % Normal 0-[address] [facility] Comment on above: Performed By: #### L 500.4050, L503.6005, L100.0100 ####[facility] [address] [place], [address] Neutrophils/100 WBC (Bld) 79.1 % High 47-70 [facility] Comment on above: Performed By: #### L 500.4050, L503.6005, L100.0100 ####[facility] [address] [place], [address] Nucleated RBC (Bld) [#/Vol] 0 10*3/uL Normal 0-5 [facility] Comment on above: Performed By: #### L 500.4050, L503.6005, L100.0100 ####[facility] [address] [place], [address] Platelet mean volume (Bld) [Entitic vol] 10.0 fL Normal 6.2-12.0 [facility] Comment on above: Performed By: #### L 500.4050, L503.6005, L100.0100 ####[facility] [address] [place], [address] Platelets (Bld) [#/Vol] 304 10*3/uL Normal 150-450 [facility] Comment on above: Performed By: #### L 500.4050, L503.6005, L100.0100 ####[facility] [address] [place], [address] RBC (Bld) [#/Vol] 4.84 10*6/uL Normal 4.2-5.4 [facility] Comment on above: Performed By: #### L 500.4050, L503.6005, L100.0100 ####[facility] [address] [place], [address] RDW SD 43.8 fl Normal 35.1-43.9 [facility] Comment on above: Performed By: #### L 500.4050, L503.6005, L100.0100 ####[facility] [address] [place], [address] WBC (Bld) [#/Vol] 17.5 10*3/uL High 4.4-11.0 [facility] Comment on above: Performed By: #### L 500.4050, L503.6005, L100.0100 ####[facility] [address] [place], [address] Carbon dioxide, total [Moles /volume] in Central venous bloodOrdered By: Carlos Jiménez on 06-27-2024 CO2 [Moles/Vol] 28.0 mmol/L 21.0-32.0 [facility] Chest PA and Lateralon 06-27 Chest PA and Lateral Normal [facility] Chloride assayOrdered By: Ug o Jiménez on 06-27-2024 Chloride [Moles/Vol] 96 mmol/L Low 98-108 [facility] Comprehensive Metabolic Prof ilon 06-27-2024 Albumin [Mass/Vol] 3.5 g/dL Normal 3.4-4.8 [facility] Comment on above: Performed By: #### L 500.4050, L503.6005, L100.0100 ####[facility] [address] [place], [address] Albumin/Globulin [Mass ratio] 1.1 {ratio} Normal 0.9-2.4 [facility] Comment on above: Performed By: #### L 500.4050, L503.6005, L100.0100 ####[facility] [address] [place], [address] ALK PHOS 142 U/L High 35-104 [facility] Comment on above: Performed By: #### L 500.4050, L503.6005, L100.0100 ####[facility] [address] [place], [address] ALT [Catalytic activity/Vol] 33 U/L Normal <=34 [facility] Comment on above: Performed By: #### L 500.4050, L503.6005, L100.0100 ####[facility] [address] [place], [address] AST [Catalytic activity/Vol] 38 U/L High <=31 [facility] Comment on above: Performed By: #### L 500.4050, L503.6005, L100.0100 ####[facility] [address] [place], [address] Bilirubin [Mass/Vol] 0.70 mg/dL Normal 0.00-1.30 [facility] Comment on above: Performed By: #### L 500.4050, L503.6005, L100.0100 ####[facility] [address] [place], [address] BUN/CRE 16.7 RATIO Normal 10-20 [facility] Comment on above: Performed By: #### L 500.4050, L503.6005, L100.0100 ####[facility] [address] [place], [address] Calcium [Mass/Vol] 9.7 mg/dL Normal 7.6-11.0 [facility] Comment on above: Performed By: #### L 500.4050, L503.6005, L100.0100 ####[facility] [address] [place], [address] Chloride [Moles/Vol] 96 mmol/L Low 98-108 [facility] Comment on above: Performed By: #### L 500.4050, L503.6005, L100.0100 ####[facility] [address] [place], [address] CO2 [Moles/Vol] 28.0 mmol/L Normal 21.0-32.0 [facility] Comment on above: Performed By: #### L 500.4050, L503.6005, L100.0100 ####[facility] [address] [place], [address] Creatinine [Mass/Vol] 1.04 mg/dL Normal 0.70-1.20 [facility] Comment on above: Performed By: #### L 500.4050, L503.6005, L100.0100 ####[facility] [address] [place], [address] ECRCL 55.88 ml/min Normal 50-250 [facility] Comment on above: Performed By: #### L 500.4050, L503.6005, L100.0100 ####[facility] [address] [place], [address] GAP 12 Normal 5-15 [facility] Comment on above: Performed By: #### L 500.4050, L503.6005, L100.0100 ####[facility] [address] [place], [address] GFR/1.73 sq M.predicted among non-blacks MDRD (S/P/Bld) [Vol rate/Area] 60 mL/min/{1.73_m2} Normal >60 [facility] Comment on above: Result Comment: mL/m in/1.73m2 CKD-EPI Creatinine Equation (2020) Performed By: #### L 500.4050, L503.6005, L100.0100 ####[facility] [address] [place], [address] Globulin (S) [Mass/Vol] 3.2 g/dL Normal 2.2-4.2 [facility] Comment on above: Performed By: #### L 500.4050, L503.6005, L100.0100 ####[facility] [address] [place], [address] Glucose [Mass/Vol] 197 mg/dL High 70-99 [facility] Comment on above: Performed By: #### L 500.4050, L503.6005, L100.0100 ####[facility] [address] [place], [address] Potassium [Moles/Vol] 4.0 mmol/L Normal 3.3-5.1 [facility] Comment on above: Performed By: #### L 500.4050, L503.6005, L100.0100 ####[facility] [address] [place], [address] Sodium [Moles/Vol] 136 mmol/L Normal 133-145 [facility] Comment on above: Performed By: #### L 500.4050, L503.6005, L100.0100 ####[facility] [address] [place], [address] T PROT 6.7 g/dL Normal 5.9-8.4 [facility] Comment on above: Performed By: #### L 500.4050, L503.6005, L100.0100 ####[facility] [address] [place], [address] Urea nitrogen [Mass/Vol] 17 mg/dL Normal 4-19 [facility] Comment on above: Performed By: #### L 500.4050, L503.6005, L100.0100 ####[facility] [address] [place], [address] Determination of fraction of inspired oxygenOrdered By: Carlos Jiménez on 06-27-2024 Blood Gas Oxygen Percent 3.0 [facility] Emergency Department Summary on 06-27-2024 Emergency Department Summary Normal [facility] Eosinophil percentageOrdered By: Carlos Jiménez on 06-27-2024 Eosinophils/100 WBC (Bld) 7.8 % High 0-5 [facility] Erythrocyte distribution wid th (RBC) [Ratio]Ordered By: Carlos Jiménez on 06-27-2024 Erythrocyte distribution width (RBC) [Entitic vol] 43.8 fL 35.1-43.9 [facility] Erythrocyte distribution wid th ratioOrdered By: Carlos Jiménez on 06-27-2024 Erythrocyte distribution width (RBC) [Ratio] 13.4 % 11.6-14.6 [facility] Estimation of creatinine rashida aranceOrdered By: Carlos Jiménez on 06-27-2024 Estimated Creatinine Clearance Calc 55.88 ml/min 50-250 [facility] GFR/1.73 sq M.predicted jessie g non-blacks MDRD (S/P/Bld) [Vol rate/Area]Ordered By: Carlos Jiménez on 06-27-2024 Estimated GFR (MDRD) Non-Af Amer 60 >60 [facility] Comment on above: mL/min/1.73m2 CKD-EP I Creatinine Equation (2020) H AND P Exam - Hospital[place] 06-27-2024 H&P Exam - Hospitalist Normal [facility] Hematocrit Auto (Bld) [Volum e fraction]Ordered By: Carlosveena Jiménez on 06-27-2024 Hematocrit (Bld) [Volume fraction] 43.3 % 37-47 [facility] Hemoglobin measurementOrdere d By: Carlos Jiménez on 06-27-2024 Hemoglobin (Bld) [Mass/Vol] 14.7 g/dL 12.0-15.0 [facility] Immature granulocytes/100 WB C Auto (Bld)Ordered By: Carlos Jiménez on 06-27-2024 Immature granulocytes/100 WBC (Bld) 0.600 % 0.0-0.9 [facility] Comment on above: IG% - Immature Granu locytes (promyelocytes, myelocytes and metamyelocytes) > 1% indicates that a LEFT SHIFT is Present. Influenza virus A and B and SARS-CoV-2 (COVID-19) and Respiratory syncytial virus RNAOrdered By: Carlosveena Jiménez on 06-27-2024 SARS-CoV-2 (COVID-19) RNA RON+probe Ql (Unsp spec) [facility] L. pneumophila Ag Ql (U)Orde red By: Maria E Strickland on 06-27-[address] [facility] L501.4021on 06-27-2024 Trop T High Sen 36 ng/L High <=14 [facility] Comment on above: Performed By: #### L 501.4021 ####[facility] [address] [place], [place], [address] Laboratory - Chemistry and C hemistry - challengeOrdered By: Carlos Jiménez on 06-27-2024 AST [Catalytic activity/Vol] 38 U/L High <32 [facility] Lactic Acidon 06-27-2024 Lactate [Moles/Vol] 1.6 mmol/L Normal 0.0-2.0 [facility] Comment on above: Order Comment: Y Performed By: #### L 500.4050, L503.6005, L100.0100 ####[facility] [address] [place], [place], [address] Lactic acid measurementOrder ed By: Carlos Jiménez on 06-27-2024 Lactate [Moles/Vol] 1.6 mmol/L 0.0-2.0 [facility] Legionella Antigen Urineon 0 06-27-2024 LEGU Normal [facility] Comment on above: Performed By: #### M 300.4500, M300.4600 ####[facility] [address] [place], [place], [address] Lymphocytes Auto (Unsp spec) [#/Vol]Ordered By: Carlos Jiménez on 06-27-2024 Lymphocytes (Bld) [#/Vol] 1.04 10*3/uL 0.83-4.51 [facility] Lymphocytes/100 WBC Auto (Un sp spec)Ordered By: Carlos Jiménez on 06-27-2024 Lymphocytes/100 WBC (Bld) 5.9 % Low 19-41 [facility] M100.678on 06-27-2024 M100.678 Pending SARS-CoV-2 (COVID 19) Negative INFLUENZA A Negative INFLUENZA B Negative RSV PCR Negative Normal [facility] Comment on above: Performed By: #### M 100.678 ####[facility] [address] [place], [place], [address] MCV (mean corpuscular volume ) determinationOrdered By: Carlos Jiménez on 06-27-2024 MCV (RBC) [Entitic vol] 89.5 fL 81-99 [facility] Mean corpuscular hemoglobin (MCH) determinationOrdered By: Carlos Jiménez on 06-27-2024 MCH (RBC) [Entitic mass] 30.4 pg 27.0-32.0 [facility] Mean corpuscular hemoglobin concentration (MCHC) determinationOrdered By: Carlos Jiménez on 06-27-2024 MCHC (RBC) [Mass/Vol] 33.9 g/dL 32-36 [facility] Mean platelet volume determi nationOrdered By: Carlos Jiménez on 06-27-2024 Platelet mean volume (Bld) [Entitic vol] 10.0 fL 6.2-12.0 [facility] Measurement, pHOrdered By: Yamini Jiménez on 06-27-2024 pH (Unsp spec) 7.47 [pH] High 7.35-7.45 [facility] Monocyte percentageOrdered B y: Carlos Jiménez on 06-27-2024 Monocytes/100 WBC (Bld) 6.2 % 0-10 [facility] Neutrophil percentageOrdered By: Carlos Jiménez on 06-27-2024 Neutrophils/100 WBC (Bld) 79.1 % High 47-70 [facility] No Panel InformationOrdered By: Carlos Jiménez on 06-27-2024 Blood Gas Sample Site R Radial [facility] Blood Gas Specimen Type ART [facility] Blood Gas Vent Mode Not entered [facility] Oxygen Delivery Device Cannula [facility] ART [facility] R Radial [facility] Not entered [facility] Cannula [facility] 38 U/L High <32 [facility] Nucleated red blood cell per centageOrdered By: Carlos Jiménez on 06-27-2024 Nucleated RBC/100 WBC (Bld) [Ratio] 0 % 0-5 [facility] Oxygen saturation measuremen tOrdered By: Carlos Jiménez on 06-27-2024 Blood Gas Oxygen Saturation 93 % Low 95-99 [facility] Partial pressure of carbon d ioxide measurementOrdered By: Carlos Jiménez on 06-27-2024 Arterial Blood Partial Pressure CO2 39.8 mmHg 35-45 [place] [facility] Partial pressure of oxygen m easurementOrdered By: Carlos Jiménez on 06-27-2024 Arterial Blood Partial Pressure O2 62 mmHG Low 75-100 [facility] Platelet countOrdered By: Brittani Jiménez on 06-27-2024 Platelets (Bld) [#/Vol] 304 10*3/uL 150-450 [facility] Potassium (Unsp spec) [Mass/ Vol]Ordered By: Carlos Jiménez on 06-27-2024 Potassium [Moles/Vol] 4.0 mmol/L 3.3-5.1 [facility] RBC Auto (Bld) [#/Vol]Ordere d By: Carlos Jiménez on 06-27-2024 RBC (Bld) [#/Vol] 4.84 10*6/uL 4.2-5.4 [facility] RESPIRATORY PANEL MOLECULARo n 06-27-2024 RP PANEL Normal [facility] Comment on above: Performed By: #### M 100.638 ####[facility] [address] [place], [address] Respiratory pathogens DNA an d RNA panel RON+probe (Resp)Ordered By: Maria E Strickland on 06-27-2024 Respiratory Panel (PCR) [facility] Respiratory pathogens detect ion panel by molecular detection methodOrdered By: Maria E Strickland on 06-27-2024 Respiratory pathogens DNA and RNA panel RON+probe (Resp) [facility] Serum creatinine measurement (mass/volume)Ordered By: Carlos Jiménez on 06-27-2024 Creatinine [Mass/Vol] 1.04 mg/dL 0.70-1.20 [facility] Serum globulin measurementOr dered By: Carlos Jiménez on 06-27-2024 Globulin (S) [Mass/Vol] 3.2 g/dL 2.2-4.[address] [facility] Serum glucose measurement (m ass/volume)Ordered By: Carlos Jiménez on 06-27-2024 Glucose [Mass/Vol] 197 mg/dL High 70-99 [facility] Serum or plasma alanine mckay otransferase (ALT) measurementOrdered By: Carlos Jiménez on 06-27-2024 ALT [Catalytic activity/Vol] 33 U/L <35 [facility] Serum or plasma albumin israel urement (mass/volume)Ordered By: Carlos Jiménez on 06-27-2024 Albumin [Mass/Vol] 3.5 g/dL 3.4-4.8 [facility] Serum or plasma albumin/glob ulin mass ratioOrdered By: Carlosveena Jiménez on 06-27-2024 Albumin/Globulin [Mass ratio] 1.1 {ratio} 0.9-2.4 [facility] Serum or plasma alkaline leo sphatase measurementOrdered By: Carlosveena Jiménez on 06-27-2024 ALP [Catalytic activity/Vol] 142 U/L High 35-104 [facility] Serum or plasma calcium israel urement (mass/volume)Ordered By: Carlosveena Jiménez on 06-27-2024 Calcium [Mass/Vol] 9.7 mg/dL 7.6-11.0 [facility] Serum or plasma urea nitroge n measurement (mass/volume)Ordered By: Carlosveena iJménez on 06-27-2024 Urea nitrogen [Mass/Vol] 17 mg/dL 4-19 [facility] Sodium levelOrdered By: Carlosveena Jiménez on 06-27-2024 Sodium [Moles/Vol] 136 mmol/L 133-145 [facility] Strep pneumoniae Antig(UR,CS F)on 06-27-2024 STPAG Normal [facility] Comment on above: Performed By: #### M 300.4502, M300.4600 ####[facility] [address] [facility] [place], [address] Streptococcus pneumoniae ant igen assayOrdered By: Maria E Strickland on 06-27-2024 Streptococcus pneumoniae Antigen (M [facility] Total carbon dioxide measure mentOrdered By: Carlos Jiménez on 06-27-2024 Blood Gas Total CO2 30 mmol/L [facility] CO2 [Moles/Vol] 30 mmol/L [facility] Total proteinOrdered By: Carlos Jiménez on 06-27-2024 Protein [Mass/Vol] 6.7 g/dL 5.9-8.4 [facility] Troponin T.cardiac High sens itivity method [Mass/Vol]Ordered By: Carlos Jiménez on 06-27-2024 Troponin T High Sensitivity 36 ng/L High <14 [facility] Troponin T.cardiac [Mass/vol ume] in Serum or Plasma by High sensitivity methodOrdered By: Carlos Jiménez on 06-27-2024 Troponin T.cardiac High sensitivity method [Mass/Vol] 36 ng/L High <14 [facility] Urine Legionella pneumophila antigen detectionOrdered By: Maria E Strickland on 06-27-2024 L. pneumophila Ag Ql (U) [facility] White blood cell (WBC) count Ordered By: Carlos Jiménez on 06-27-2024 WBC (Bld) [#/Vol] 17.5 10*3/uL High 4.4-11.0 [facility] pH (Unsp spec)Ordered By: Brittani Jiménez on 06-27-2024 Blood Gas pH 7.47 High 7.35-7.45 [facility] Basic Metabolic Profile (BMP )on 06-14-2024 BUN Normal 4-19 [facility] Comment on above: Result Comment: Canc elled via OM: Order cancelled - Patient discharged Performed By: #### L 500.2500, L100.0500 ####[facility] [address] [place], [address] BUN/CRE Normal 10-20 [facility] Comment on above: Result Comment: Canc elled via OM: Order cancelled - Patient discharged Performed By: #### L 500.2500, L100.0500 ####[facility] [address] [place], [address] Calcium Normal 7.6-11.0 [facility] Comment on above: Result Comment: Canc elled via OM: Order cancelled - Patient discharged Performed By: #### L 500.2500, L100.0500 ####[facility] [address] [place], [address] CL Normal 98-108 [facility] Comment on above: Result Comment: Canc elled via OM: Order cancelled - Patient discharged Performed By: #### L 500.2500, L100.0500 ####[facility] [address] [place], [address] CO2 Normal 21.0-32.0 [facility] Comment on above: Result Comment: Canc elled via OM: Order cancelled - Patient discharged Performed By: #### L 500.2500, L100.0500 ####[facility] [address] [place], [address] CREAT,SERUM Normal 0.70-1.20 [facility] Comment on above: Result Comment: Canc elled via OM: Order cancelled - Patient discharged Performed By: #### L 500.2500, L100.0500 ####[facility] [address] [place], [address] eGFR Normal >60 [facility] Comment on above: Result Comment: Canc elled via OM: Order cancelled - Patient discharged Performed By: #### L 500.2500, L100.0500 ####[facility] [address] [place], [address] GAP Normal 5-15 [facility] Comment on above: Result Comment: Canc elled via OM: Order cancelled - Patient discharged Performed By: #### L 500.2500, L100.0500 ####[facility] [address] [place], [address] GLU Normal 70-99 [facility] Comment on above: Result Comment: Canc elled via OM: Order cancelled - Patient discharged Performed By: #### L 500.2500, L100.0500 ####[facility] [address] [place], [address] Potassium Normal 3.3-5.1 [facility] Comment on above: Result Comment: Canc elled via OM: Order cancelled - Patient discharged Performed By: #### L 500.2500, L100.0500 ####[facility] [address] [place], [address] Basic Metabolic Profile (BMP) Normal 133-145 [facility] Comment on above: Result Comment: Canc elled via OM: Order cancelled - Patient discharged Performed By: #### L 500.2500, L100.0500 ####[facility] [address] [place], [address] CBC-Complete Blood Cnt No Di ffon 06-14-2024 HCT Normal 37-47 [facility] Comment on above: Result Comment: Canc elled via OM: Order cancelled - Patient discharged Performed By: #### L 500.2500, L100.0500 ####[facility] [address] [place], [address] HGB Normal 12.0-15.0 [facility] Comment on above: Result Comment: Canc elled via OM: Order cancelled - Patient discharged Performed By: #### L 500.2500, L100.0500 ####[facility] [address] [place], [address] MCH Normal 27.0-32.0 [facility] Comment on above: Result Comment: Canc elled via OM: Order cancelled - Patient discharged Performed By: #### L 500.2500, L100.0500 ####[facility] [address] [place], [address] MCHC Normal 32-36 [facility] Comment on above: Result Comment: Canc elled via OM: Order cancelled - Patient discharged Performed By: #### L 500.2500, L100.0500 ####[facility] [address] [place], [place], [id number] MCV Normal 81-99 [facility] Comment on above: Result Comment: Canc elled via OM: Order cancelled - Patient discharged Performed By: #### L 500.2500, L100.0500 ####[facility] [address] [place], [address] PLT Normal 150-450 [facility] Comment on above: Result Comment: Canc elled via OM: Order cancelled - Patient discharged Performed By: #### L 500.2500, L100.0500 ####[facility] [address] [place], [address] RBC Normal 4.2-5.4 [facility] Comment on above: Result Comment: Canc elled via OM: Order cancelled - Patient discharged Performed By: #### L 500.2500, L100.0500 ####[facility] [address] [place], [address] RDW CV Normal 11.6-14.6 [facility] Comment on above: Result Comment: Canc elled via OM: Order cancelled - Patient discharged Performed By: #### L 500.2500, L100.0500 ####[facility] [address] [place], [address] RDW SD Normal 35.1-43.9 [facility] Comment on above: Result Comment: Canc elled via OM: Order cancelled - Patient discharged Performed By: #### L 500.2500, L100.0500 ####[facility] [address] [place], [address] WBC Normal 4.4-11.0 [facility] Comment on above: Result Comment: Canc elled via OM: Order cancelled - Patient discharged Performed By: #### L 500.2500, L100.0500 ####[facility] [address] [place], [address] Basic Metabolic Profile (BMP )on 06-13-2024 BUN Normal 4-19 [facility] Comment on above: Result Comment: Canc elled via OM: Order cancelled - Patient discharged Performed By: #### L 100.0500, L500.2500 ####[facility] [address] [place], [address] BUN/CRE Normal 10-20 [facility] Comment on above: Result Comment: Canc elled via OM: Order cancelled - Patient discharged Performed By: #### L 100.0500, L500.2500 ####[facility] [address] [place], [address] Calcium Normal 7.6-11.0 [facility] Comment on above: Result Comment: Canc elled via OM: Order cancelled - Patient discharged Performed By: #### L 100.0500, L500.2500 ####[facility] [address] [place], [address] CL Normal 98-108 [facility] Comment on above: Result Comment: Canc elled via OM: Order cancelled - Patient discharged Performed By: #### L 100.0500, L500.2500 ####[facility] [address] [place], [address] CO2 Normal 21.0-32.0 [facility] Comment on above: Result Comment: Canc elled via OM: Order cancelled - Patient discharged Performed By: #### L 100.0500, L500.2500 ####[facility] [address] [place], [address] CREAT,SERUM Normal 0.70-1.20 [facility] Comment on above: Result Comment: Canc elled via OM: Order cancelled - Patient discharged Performed By: #### L 100.0500, L500.2500 ####[facility] [address] [place], [address] eGFR Normal >60 [facility] Comment on above: Result Comment: Canc elled via OM: Order cancelled - Patient discharged Performed By: #### L 100.0500, L500.2500 ####[facility] [address] [place], [address] GAP Normal 5-15 [facility] Comment on above: Result Comment: Canc elled via OM: Order cancelled - Patient discharged Performed By: #### L 100.0500, L500.2500 ####[facility] [address] [place], [address] GLU Normal 70-99 [facility] Comment on above: Result Comment: Canc elled via OM: Order cancelled - Patient discharged Performed By: #### L 100.0500, L500.2500 ####[facility] [address] [place], [address] Potassium Normal 3.3-5.1 [facility] Comment on above: Result Comment: Canc elled via OM: Order cancelled - Patient discharged Performed By: #### L 100.0500, L500.2500 ####[facility] [address] [place], [address] Basic Metabolic Profile (BMP) Normal 133-145 [facility] Comment on above: Result Comment: Canc elled via OM: Order cancelled - Patient discharged Performed By: #### L 100.0500, L500.2500 ####[facility] [address] [place], [address] CBC-Complete Blood Cnt No Di ffon 06-13-2024 HCT Normal 37-47 [facility] Comment on above: Result Comment: Canc elled via OM: Order cancelled - Patient discharged Performed By: #### L 100.0500, L500.2500 ####[facility] [address] [place], [address] HGB Normal 12.0-15.0 [facility] Comment on above: Result Comment: Canc elled via OM: Order cancelled - Patient discharged Performed By: #### L 100.0500, L500.2500 ####[facility] [address] [place], [address] MCH Normal 27.0-32.0 [facility] Comment on above: Result Comment: Canc elled via OM: Order cancelled - Patient discharged Performed By: #### L 100.0500, L500.2500 ####[facility] [address] [place], [address] MCHC Normal 32-36 [facility] Comment on above: Result Comment: Canc elled via OM: Order cancelled - Patient discharged Performed By: #### L 100.0500, L500.2500 ####[facility] [address] [place], [address] MCV Normal 81-99 [facility] Comment on above: Result Comment: Canc elled via OM: Order cancelled - Patient discharged Performed By: #### L 100.0500, L500.2500 ####[facility] [address] [place], [address] PLT Normal 150-450 [facility] Comment on above: Result Comment: Canc elled via OM: Order cancelled - Patient discharged Performed By: #### L 100.0500, L500.2500 ####[facility] [address] [place], [address] RBC Normal 4.2-5.4 [facility] Comment on above: Result Comment: Canc elled via OM: Order cancelled - Patient discharged Performed By: #### L 100.0500, L500.2500 ####[facility] [address] [place], [address] RDW CV Normal 11.6-14.6 [facility] Comment on above: Result Comment: Canc elled via OM: Order cancelled - Patient discharged Performed By: #### L 100.0500, L500.2500 ####[facility] [address] [place], [address] RDW SD Normal 35.1-43.9 [facility] Comment on above: Result Comment: Canc elled via OM: Order cancelled - Patient discharged Performed By: #### L 100.0500, L500.2500 ####[facility] [address] [place], [address] WBC Normal 4.4-11.0 [facility] Comment on above: Result Comment: Canc elled via OM: Order cancelled - Patient discharged Performed By: #### L 100.0500, L500.2500 ####[facility] [address] [place], [address] Anion gap in Serum or Plasma Ordered By: Tyrone Clark on 06-12-2024 Anion gap [Moles/Vol] 11 mmol/L - [facility] BUN/creatinine ratioOrdered By: Tyrone Clark on 06-12-2024 Urea nitrogen/Creatinine [Mass ratio] 22.1 mg/mg High - [facility] Basic Metabolic Profile (BMP )on 06-12-2024 BUN/CRE 22.1 RATIO High 12-26 [facility] Comment on above: Performed By: #### L 500.2500, L100.0500 ####[facility] [address] [place], [address] Calcium [Mass/Vol] 9.3 mg/dL Normal 7.6-11.0 [facility] Comment on above: Performed By: #### L 500.2500, L100.0500 ####[facility] [address] [place], [address] Chloride [Moles/Vol] 100 mmol/L Normal 98-108 [facility] Comment on above: Performed By: #### L 500.2500, L100.0500 ####[facility] [address] [place], [address] CO2 [Moles/Vol] 26.2 mmol/L Normal 21.0-32.0 [facility] Comment on above: Performed By: #### L 500.2500, L100.0500 ####[facility] [address] [place], [address] Creatinine [Mass/Vol] 1.16 mg/dL Normal 0.70-1.20 [facility] Comment on above: Performed By: #### L 500.2500, L100.0500 ####[facility] [address] [place], [address] ECRCL 51.63 ml/min Normal 50-250 [facility] Comment on above: Performed By: #### L 500.2500, L100.0500 ####[facility] [address] [place], [address] GAP 11 Normal 5-15 [facility] Comment on above: Performed By: #### L 500.2500, L100.0500 ####[facility] [address] [place], [address] GFR/1.73 sq M.predicted among non-blacks MDRD (S/P/Bld) [Vol rate/Area] 52 mL/min/{1.73_m2} Low >60 [facility] Comment on above: Result Comment: mL/m in/1.73m2 CKD-EPI Creatinine Equation (2020) Performed By: #### L 500.2500, L100.0500 ####[facility] [address] [place], [address] Glucose [Mass/Vol] 102 mg/dL High 70-99 [facility] Comment on above: Performed By: #### L 500.2500, L100.0500 ####[facility] [address] [place], [address] Potassium [Moles/Vol] 4.0 mmol/L Normal 3.3-5.1 [facility] Comment on above: Performed By: #### L 500.2500, L100.0500 ####[facility] [address] [place], [address] Sodium [Moles/Vol] 137 mmol/L Normal 133-145 [facility] Comment on above: Performed By: #### L 500.2500, L100.0500 ####[facility] [address] [place], [address] Urea nitrogen [Mass/Vol] 26 mg/dL High 4-19 [facility] Comment on above: Performed By: #### L 500.2500, L100.0500 ####[facility] [address] [place], [address] Bedside Glucoseon 06-12-2024 [place] GLU 93 mg/dL Normal 74-106 [facility] Comment on above: Result Comment: MERRILL TORRES OF PATIENT CARE PER NURSING PROTOCOL Performed By: #### L 501.080 ####[facility] [address] [place], [address] CBC-Complete Blood Cnt No Di ffon 06-12-2024 Erythrocyte distribution width (RBC) [Ratio] 14.0 % Normal 11.6-14.6 [facility] Comment on above: Performed By: #### L 500.2500, L100.0500 ####[facility] [address] [place], [address] Hematocrit (Bld) [Volume fraction] 42.8 % Normal 37-47 [facility] Comment on above: Performed By: #### L 500.2500, L100.0500 ####[facility] [address] [place], [address] Hemoglobin (Bld) [Mass/Vol] 14.4 g/dL Normal 12.0-15.0 [facility] Comment on above: Performed By: #### L 500.2500, L100.0500 ####[facility] [address] [place], [address] MCH (RBC) [Entitic mass] 30.8 pg Normal 27.0-32.0 [facility] Comment on above: Performed By: #### L 500.2500, L100.0500 ####[facility] [address] [place], [address] MCHC (RBC) [Mass/Vol] 33.6 g/dL Normal 32-36 [facility] Comment on above: Performed By: #### L 500.2500, L100.0500 ####[facility] [address] [place], [address] MCV (RBC) [Entitic vol] 91.6 fL Normal 81-[address] [facility] Comment on above: Performed By: #### L 500.2500, L100.0500 ####[facility] [address] [place], [address] Platelet mean volume (Bld) [Entitic vol] 10.2 fL Normal 6.2-12.0 [facility] Comment on above: Performed By: #### L 500.2500, L100.0500 ####[facility] [address] [place], [address] Platelets (Bld) [#/Vol] 161 10*3/uL Normal 150-450 [facility] Comment on above: Performed By: #### L 500.2500, L100.0500 ####[facility] [address] [place], [address] RBC (Bld) [#/Vol] 4.67 10*6/uL Normal 4.2-5.4 [facility] Comment on above: Performed By: #### L 500.2500, L100.0500 ####[facility] [address] [place], [address] RDW SD 47.3 fl High 35.1-43.9 [facility] Comment on above: Performed By: #### L 500.2500, L100.0500 ####[facility] [address] [place], [address] WBC (Bld) [#/Vol] 9.0 10*3/uL Normal 4.4-11.0 [facility] Comment on above: Performed By: #### L 500.2500, L100.0500 ####[facility] [address] [place], [place], [address] Carbon dioxide, total [Moles /volume] in Central venous bloodOrdered By: Tyrone Clark on 06-12-2024 CO2 [Moles/Vol] 26.2 mmol/L 21.0-32.0 [facility] Chloride assayOrdered By: Matheus Clark on 06-12-2024 Chloride [Moles/Vol] 100 mmol/L 98-108 [facility] Discharge Instructionon 04-0 Discharge Instruction Normal [facility] Erythrocyte distribution wid th (RBC) [Ratio]Ordered By: Tyrone Clark on 06-12-2024 Erythrocyte distribution width (RBC) [Entitic vol] 47.3 fL High 35.1-43.9 [facility] Erythrocyte distribution wid th ratioOrdered By: Tyrone Clark on 06-12-2024 Erythrocyte distribution width (RBC) [Ratio] 14.0 % 11.6-14.6 [facility] Erythrocyte distribution wid th standard deviationOrdered By: Tyrone Clark on 06-12-2024 Erythrocyte distribution width (RBC) [Ratio] 47.3 fl High 35.1-43.9 [facility] Estimation of creatinine rashida aranceOrdered By: Tyrone Clark on 06-12-2024 Estimated Creatinine Clearance Calc 51.63 ml/min 50-250 [facility] GFR/1.73 sq M.predicted jessie g non-blacks MDRD (S/P/Bld) [Vol rate/Area]Ordered By: Tyrone Clark on 06-12-2024 Estimated GFR (MDRD) Non-Af Amer 52 Low >60 [facility] Comment on above: mL/min/1.73m2 CKD-EP I Creatinine Equation (2020) Glomerular filtration rate ( GFR) estimation/1.73 sq m using serum, plasma, or whole bOrdered By: Tyrone Clark on 06-12-2024 GFR/1.73 sq M.predicted among non-blacks MDRD (S/P/Bld) [Vol rate/Area] 52 mL/min/{1.73_m2} Low >60 [facility] Comment on above: mL/min/1.73m2 CKD-EP I Creatinine Equation (2020) Glucose measurement at bedsi deOrdered By: Tyrone Clark on 06-12-2024 Bedside Glucose (Misc Panel) 93 mg/dL 74-106 [facility] Comment on above: MANAGEMENT OF PATIEN T CARE PER NURSING PROTOCOL Glucose [Mass/Vol] 93 mg/dL 74-106 [facility] Comment on above: MANAGEMENT OF PATIEN T CARE PER NURSING PROTOCOL Hematocrit Auto (Bld) [Volum e fraction]Ordered By: Tyrone Clark on 06-12-2024 Hematocrit (Bld) [Volume fraction] 42.8 % 37-47 [facility] Hemoglobin measurementOrdere d By: Tyrone Clark on 06-12-2024 Hemoglobin (Bld) [Mass/Vol] 14.4 g/dL 12.0-15.0 [facility] MCV (mean corpuscular volume ) determinationOrdered By: Tyrone Clark on 06-12-2024 MCV (RBC) [Entitic vol] 91.6 fL 81-99 [facility] Mean corpuscular hemoglobin (MCH) determinationOrdered By: Tyrone Clark on 06-12-2024 MCH (RBC) [Entitic mass] 30.8 pg 27.0-32.0 [facility] Mean corpuscular hemoglobin concentration (MCHC) determinationOrdered By: Tyrone Clark on 06-12-2024 MCHC (RBC) [Mass/Vol] 33.6 g/dL 32-36 [facility] Mean platelet volume determi nationOrdered By: Tyrone Clark on 06-12-2024 Platelet mean volume (Bld) [Entitic vol] 10.2 fL 6.2-12.0 [facility] Platelet countOrdered By: Matheus Clark on 06-12-2024 Platelets (Bld) [#/Vol] 161 10*3/uL 150-450 [facility] Potassium (Unsp spec) [Mass/ Vol]Ordered By: Tyrone Clark on 06-12-2024 Potassium [Moles/Vol] 4.0 mmol/L 3.3-5.1 [facility] Potassium measurement (mass/ volume)Ordered By: Tyrone Clark on 06-12-2024 Potassium (Unsp spec) [Mass/Vol] 4.0 mmol/L 3.3-5.1 [facility] RBC Auto (Bld) [#/Vol]Ordere d By: Tyrone Clark on 06-12-2024 RBC (Bld) [#/Vol] 4.67 10*6/uL 4.2-5.4 [facility] Serum creatinine measurement (mass/volume)Ordered By: Tyrone Clark on 06-12-2024 Creatinine [Mass/Vol] 1.16 mg/dL 0.70-1.20 [facility] Serum glucose measurement (m ass/volume)Ordered By: Tyrone Clark on 06-12-2024 Glucose [Mass/Vol] 102 mg/dL High 70-99 [facility] Serum or plasma calcium israel urement (mass/volume)Ordered By: Tyrone Clark on 06-12-2024 Calcium [Mass/Vol] 9.3 mg/dL 7.6-11.0 [facility] Serum or plasma urea nitroge n measurement (mass/volume)Ordered By: Tyrone Clark on 06-12-2024 Urea nitrogen [Mass/Vol] 26 mg/dL High 4-19 [facility] Sodium levelOrdered By: Jeremiah Clark on 06-12-2024 Sodium [Moles/Vol] 137 mmol/L 133-145 [facility] White blood cell (WBC) count Ordered By: Tyrone Clark on 06-12-2024 WBC (Bld) [#/Vol] 9.0 10*3/uL 4.4-11.0 [facility] Absolute lymphocyte countOrd ered By: Maria Garcia on 06-11-2024 Lymphocytes Auto (Unsp spec) [#/Vol] 1.62 10*3/uL 0.83-4.51 [facility] Absolute neutrophil countOrd ered By: Maria Garcia on 06-11-2024 Neutrophils (Bld) [#/Vol] 10.9 10*3/uL High 2.0-7.7 [facility] Anion gap in Serum or Plasma Ordered By: Maria Garcia on 06-11-2024 Anion gap [Moles/Vol] 14 mmol/L 5-15 [facility] Automated lymphocyte count a s percentage of total leukocytesOrdered By: Maria Garcia on 06-11-2024 Lymphocytes/100 WBC Auto (Unsp spec) 10.8 % Low 19-41 [facility] BUN/creatinine ratioOrdered By: Maria Garcia on 06-11-2024 Urea nitrogen/Creatinine [Mass ratio] 16.9 mg/mg 10-20 [facility] Basophil percentageOrdered B y: Maria Garcia on 06-11-2024 Basophils/100 WBC (Bld) 0.8 % 0-[address] [facility] Bilirubin, totalOrdered By: Maria Garcia on 06-11-2024 Bilirubin [Mass/Vol] 0.62 mg/dL 0.00-1.30 [facility] Blood manual differential co mment interpretation (narrative result)Ordered By: Maria Garcia on 06-11-2024 Manual differential comment Porter (Bld) [Interp] SCANNED [facility] Carbon dioxide, total [Moles /volume] in Central venous bloodOrdered By: Maria Garcia on 06-11-2024 CO2 [Moles/Vol] 24.4 mmol/L 21.0-32.0 [facility] Chloride assayOrdered By: Danielle aGrcia on 06-11-2024 Chloride [Moles/Vol] 100 mmol/L 98-108 [facility] Comprehensive Metabolic Prof ilon 06-11-2024 Albumin [Mass/Vol] 3.7 g/dL Normal 3.4-4.8 [facility] Comment on above: Performed By: #### L 500.4050, L100.0100 ####[facility] [address] [place], [address] Albumin/Globulin [Mass ratio] 1.6 {ratio} Normal 0.9-2.4 [facility] Comment on above: Performed By: #### L 500.4050, L100.0100 ####[facility] [address] [place], [address] ALK PHOS 79 U/L Normal 35-104 [facility] Comment on above: Performed By: #### L 500.4050, L100.0100 ####[facility] [address] [place], [address] ALT [Catalytic activity/Vol] 43 U/L High <=34 [facility] Comment on above: Performed By: #### L 500.4050, L100.0100 ####[facility] [address] [place], [address] AST [Catalytic activity/Vol] 34 U/L High <=31 [facility] Comment on above: Performed By: #### L 500.4050, L100.0100 ####[facility] [address] [place], [address] Bilirubin [Mass/Vol] 0.62 mg/dL Normal 0.00-1.30 [facility] Comment on above: Performed By: #### L 500.4050, L100.0100 ####[facility] [address] [place], [address] BUN/CRE 16.9 RATIO Normal 10-20 [facility] Comment on above: Performed By: #### L 500.4050, L100.0100 ####[facility] [address] [place], [address] Calcium [Mass/Vol] 9.4 mg/dL Normal 7.6-11.0 [facility] Comment on above: Performed By: #### L 500.4050, L100.0100 ####[facility] [address] [place], [address] Chloride [Moles/Vol] 100 mmol/L Normal 98-108 [facility] Comment on above: Performed By: #### L 500.4050, L100.0100 ####[facility] [address] [place], [address] CO2 [Moles/Vol] 24.4 mmol/L Normal 21.0-32.0 [facility] Comment on above: Performed By: #### L 500.4050, L100.0100 ####[facility] [address] [place], [address] Creatinine [Mass/Vol] 1.23 mg/dL High 0.70-1.20 [facility] Comment on above: Performed By: #### L 500.4050, L100.0100 ####[facility] [address] [place], [address] ECRCL 48.55 ml/min Low 50-250 [facility] Comment on above: Performed By: #### L 500.4050, L100.0100 ####[facility] [address] [place], [address] GAP 14 Normal 5-15 [facility] Comment on above: Performed By: #### L 500.4050, L100.0100 ####[facility] [address] [place], [address] GFR/1.73 sq M.predicted among non-blacks MDRD (S/P/Bld) [Vol rate/Area] 49 mL/min/{1.73_m2} Low >60 [facility] Comment on above: Result Comment: mL/m in/1.73m2 CKD-EPI Creatinine Equation (2020) Performed By: #### L 500.4050, L100.0100 ####[facility] [address] [place], [address] Globulin (S) [Mass/Vol] 2.4 g/dL Normal 2.2-4.2 [facility] Comment on above: Performed By: #### L 500.4050, L100.0100 ####[facility] [address] [place], [address] Glucose [Mass/Vol] 145 mg/dL High 70-99 [facility] Comment on above: Performed By: #### L 500.4050, L100.0100 ####[facility] [address] [place], [address] Potassium [Moles/Vol] 3.0 mmol/L Low 3.3-5.1 [facility] Comment on above: Performed By: #### L 500.4050, L100.0100 ####[facility] [address] [place], [address] Sodium [Moles/Vol] 138 mmol/L Normal 133-145 [facility] Comment on above: Performed By: #### L 500.4050, L100.0100 ####[facility] [address] [place], [address] T PROT 6.0 g/dL Normal 5.9-8.4 [facility] Comment on above: Performed By: #### L 500.4050, L100.0100 ####[facility] [address] [place], [address] Urea nitrogen [Mass/Vol] 21 mg/dL High 4-19 [facility] Comment on above: Performed By: #### L 500.4050, L100.0100 ####[facility] [address] [place], [address] Eosinophil percentageOrdered By: Maria Radha on 06-11-2024 Eosinophils/100 WBC (Bld) 4.9 % 0-5 [facility] Erythrocyte distribution wid th (RBC) [Ratio]Ordered By: on 06-11-2024 Erythrocyte distribution width (RBC) [Entitic vol] 45.7 fL High 35.1-43.9 [facility] Erythrocyte distribution wid th ratioOrdered By: on 06-11-2024 Erythrocyte distribution width (RBC) [Ratio] 13.8 % 11.6-14.6 [facility] Estimation of creatinine rashida aranceOrdered By: Radha on 06-11-2024 Estimated Creatinine Clearance Calc 48.55 ml/min Low 50-250 [facility] GFR/1.73 sq M.predicted jessie g non-blacks MDRD (S/P/Bld) [Vol rate/Area]Ordered By: Maria Radha on 06-11-2024 Estimated GFR (MDRD) Non-Af Amer 49 Low >60 [facility] Comment on above: mL/min/1.73m2 CKD-EP I Creatinine Equation (2020) Hematocrit Auto (Bld) [Volum e fraction]Ordered By: Maria Garcia on 06-11-2024 Hematocrit (Bld) [Volume fraction] 43.2 % 37-47 [facility] Hemoglobin measurementOrdere d By: Maria Garcia on 06-11-2024 Hemoglobin (Bld) [Mass/Vol] 14.5 g/dL 12.0-15.0 [facility] Immature granulocytes/100 WB C Auto (Bld)Ordered By: Maria Garcia on 06-11-2024 Immature granulocytes/100 WBC (Bld) 0.800 % 0.0-0.9 [facility] Comment on above: IG% - Immature Granu locytes (promyelocytes, myelocytes and metamyelocytes) > 1% indicates that a LEFT SHIFT is Present. L499.0042on 06-11-2024 Trop T High Sen 46 ng/L High <=14 [facility] Comment on above: Performed By: #### L 499.0042 ####[facility] [address] [facility] [place], [place], [address] L499.0043on 06-11-2024 Trop T High Sen 81 ng/L Invalid Interpretation Code <=14 [facility] Center Comment on above: Result Comment: Crit ical Result(s) Called at: [id number] by: LYNDSAY JAMISON??Results read back by same. Performed By: #### L 499.0043 ####[facility] [address] [facility]. [place], [place], [address] L503.7505on 06-11-2024 Natriuretic peptide B (Bld) [Mass/Vol] 436 pg/mL Normal <=900 [facility] Comment on above: Order Comment: Comme nts: may add to ED labsComments: May add to ED labs Result Comment: Hear t Failure Unlikely: < 300 pg/mLHeart Failure Likely< 50 Years: > 450 pg/mL50-75 Years: > 900 pg/mL>75 Years: > 1800 pg/mL Performed By: #### L 503.7505, L501.5200 ####[facility] [address] [place], [place], [address] Laboratory - Chemistry and C hemistry - challengeOrdered By: Maria Radha on 06-11-2024 AST [Catalytic activity/Vol] 34 U/L High <32 [facility] Lymphocytes Auto (Unsp spec) [#/Vol]Ordered By: Maria Radha on 06-11-2024 Lymphocytes (Bld) [#/Vol] 1.62 10*3/uL 0.83-4.51 [facility] Lymphocytes/100 WBC Auto (Un sp spec)Ordered By: Maria Radha on 06-11-2024 Lymphocytes/100 WBC (Bld) 10.8 % Low 19-41 [facility] M100.019on 06-11-2024 M100.019 Negative Normal [facility] Comment on above: Performed By: #### M 100.019 ####[facility] [address] [place], [place], [address] MCV (mean corpuscular volume ) determinationOrdered By: Maria Garcia on 06-11-2024 MCV (RBC) [Entitic vol] 90.8 fL 81-[address] [facility] Magnesiumon 06-11-2024 Magnesium [Mass/Vol] 1.7 mg/dL Normal 1.5-2.2 [facility] Comment on above: Order Comment: Comme nts: may add to ED labsComments: May add to ED labs Performed By: #### L 503.7505, L501.5200 ####[facility] [address] [place], [address] Manual differential comment Porter (Bld) [Interp]Ordered By: Maria Garcia on 06-11-2024 Differential Comment SCANNED [facility] Mean corpuscular hemoglobin (MCH) determinationOrdered By: Maria Radha on 06-11-2024 MCH (RBC) [Entitic mass] 30.5 pg 27.0-32.0 [facility] Mean corpuscular hemoglobin concentration (MCHC) determinationOrdered By: Maria White on 06-11-2024 MCHC (RBC) [Mass/Vol] 33.6 g/dL 32-36 [facility] Mean platelet volume determi nationOrdered By: Maria White on 06-11-2024 Platelet mean volume (Bld) [Entitic vol] 10.2 fL 6.2-12.0 [facility] Monocyte percentageOrdered B y: White on 06-11-2024 Monocytes/100 WBC (Bld) 10.1 % High 0-[address] [facility] Neutrophil percentageOrdered By: White on 06-11-2024 Neutrophils/100 WBC (Bld) 72.6 % High 47-70 [facility] No Panel InformationOrdered By: Radha on 06-11-2024 34 U/L High <32 [facility] Nucleated red blood cell per centageOrdered By: Radha on 06-11-2024 Nucleated RBC/100 WBC (Bld) [Ratio] 0 % 0-5 [facility] Pathologist review Porter (Unsp spec) [Interp]Ordered By: Maria Garcia on 06-11-2024 Differential Pathologist's Review May foll [facility] Phosphoruson 06-11-2024 Phosphate [Mass/Vol] 2.6 mg/dL Low 2.7-4.5 [facility] Comment on above: Performed By: #### L 501.2300 ####[facility] [address] [place], [address] Platelet countOrdered By: Danielle mickiewill Garcia on 06-11-2024 Platelets (Bld) [#/Vol] 168 10*3/uL 150-450 [facility] Potassium (Unsp spec) [Mass/ Vol]Ordered By: Maria Garcia on 06-11-2024 Potassium [Moles/Vol] 3.0 mmol/L Low 3.3-5.1 [facility] RBC Auto (Bld) [#/Vol]Ordere d By: Maria Garcia on 06-11-2024 RBC (Bld) [#/Vol] 4.76 10*6/uL 4.2-5.4 [facility] RESPIRATORY PANEL MOLECULARo n 06-11-2024 RP PANEL Normal [facility] Comment on above: Performed By: #### M 100.638 ####[facility] [address] [place], [address] Respiratory pathogens DNA an d RNA panel RON+probe (Resp)Ordered By: Maria Garcia on 06-11-2024 Respiratory Panel (PCR) [facility] Respiratory pathogens detect ion panel by molecular detection methodOrdered By: Maria Garcia on 06-11-2024 Respiratory pathogens DNA and RNA panel RON+probe (Resp) [facility] Review by pathologistOrdered By: Maria Garcia on 06-11-2024 Pathologist review Porter (Unsp spec) [Interp] Reviewed [facility] Comment on above: Previous reported re sult: Ave antoine Edited by: IVN on 06/30/24:1006SEE REPORT IN PATIENT'S EMR AMENDED REPORT 06/30/24 1006 PATH REV previously reported as: Ave antoine [id number] By: Maria Garcia on 06-11-2024 SARS-CoV-2 (COVID-19) RNA RON+probe Ql (Unsp spec) [facility] Serum creatinine measurement (mass/volume)Ordered By: Maria Garcia on 06-11-2024 Creatinine [Mass/Vol] 1.23 mg/dL High 0.70-1.20 [facility] Serum globulin measurementOr dered By: Maria Garcia on 06-11-2024 Globulin (S) [Mass/Vol] 2.4 g/dL 2.2-4.2 [facility] Serum glucose measurement (m ass/volume)Ordered By: Maria Garcia on 06-11-2024 Glucose [Mass/Vol] 145 mg/dL High 70-99 [facility] Serum or plasma alanine mckay otransferase (ALT) measurementOrdered By: Maria Garcia on 06-11-2024 ALT [Catalytic activity/Vol] 43 U/L High <35 [facility] Serum or plasma albumin israel urement (mass/volume)Ordered By: Maria Garcia on 06-11-2024 Albumin [Mass/Vol] 3.7 g/dL 3.4-4.8 [facility] Serum or plasma albumin/glob ulin mass ratioOrdered By: Maria Gracia on 06-11-2024 Albumin/Globulin [Mass ratio] 1.6 {ratio} 0.9-2.4 [facility] Serum or plasma alkaline leo sphatase measurementOrdered By: Maria Garcia on 06-11-2024 ALP [Catalytic activity/Vol] 79 U/L 35-104 [facility] Serum or plasma calcium israel urement (mass/volume)Ordered By: Maria Garcia on 06-11-2024 Calcium [Mass/Vol] 9.4 mg/dL 7.6-11.0 [facility] Serum or plasma urea nitroge n measurement (mass/volume)Ordered By: Maria Garcia on 06-11-2024 Urea nitrogen [Mass/Vol] 21 mg/dL High 4-19 [facility] Serum phosphorus measurement Ordered By: Tyrone Clark on 06-11-2024 Phosphorus Level 2.6 mg/dL Low 2.7-4.5 [facility] Sodium levelOrdered By: Aaron Garcia on 06-11-2024 Sodium [Moles/Vol] 138 mmol/L 133-145 [facility] Total proteinOrdered By: Mauricio Garcia on 06-11-2024 Protein [Mass/Vol] 6.0 g/dL 5.9-8.4 [facility] Troponin T.cardiac High sens itivity method [Mass/Vol]Ordered By: Lance Loja on 06-11-2024 Troponin T High Sensitivity 4 Hour 81 ng/L High <14 [facility] Comment on above: Critical Result(s) C alled at: [id number] by: LYNDSAY DE LA TORRE Results read back by same. Troponin T High Sensitivity 2 Hour 46 ng/L High <14 [facility] Troponin T.cardiac [Mass/vol ume] in Serum or Plasma by High sensitivity methodOrdered By: Lance Loja on 06-11-2024 Troponin T.cardiac High sensitivity method [Mass/Vol] 81 ng/L High <14 [facility] Comment on above: Critical Result(s) [place]ed at: [id number] by: LYNDSAY TO BRITT Results read back by same. Troponin T.cardiac High sensitivity method [Mass/Vol] 46 ng/L High <14 [facility] White blood cell (WBC) count Ordered By: Maria Garcia on 06-11-2024 WBC (Bld) [#/Vol] 15.0 10*3/uL High 4.4-11.0 [facility] 12 Lead EKGon 06-10-2024 12 Lead EKG Normal [facility] Absolute neutrophil countOrd ered By: Lance Loja on 06-10-2024 Neutrophils (Bld) [#/Vol] 7.7 10*3/uL 2.0-7.7 [facility] Anion gap in Serum or Plasma Ordered By: Lance Loja on 06-10-2024 Anion gap [Moles/Vol] 14 mmol/L - [facility] BUN/creatinine ratioOrdered By: Lance Loja on 06-10-2024 Urea nitrogen/Creatinine [Mass ratio] 15.4 mg/mg - [facility] Basic Metabolic Profile (BMP )on 06-10-2024 BUN/CRE 15.4 RATIO Normal 12-26 [facility] Comment on above: Performed By: #### L 500.2500, L501.4021, L100.0100 ####[facility] [address] [place], [address] Calcium [Mass/Vol] 9.7 mg/dL Normal 7.6-11.0 [facility] Comment on above: Performed By: #### L 500.2500, L501.4021, L100.0100 ####[facility] [address] [place], [address] Chloride [Moles/Vol] 102 mmol/L Normal 98-108 [facility] Comment on above: Performed By: #### L 500.2500, L501.4021, L100.0100 ####[facility] [address] [place], [address] CO2 [Moles/Vol] 25.2 mmol/L Normal 21.0-32.0 [facility] Comment on above: Performed By: #### L 500.2500, L501.4021, L100.0100 ####[facility] [address] [place], [address] Creatinine [Mass/Vol] 1.34 mg/dL High 0.70-1.20 [facility] Comment on above: Performed By: #### L 500.2500, L501.4021, L100.0100 ####[facility] [address] [place], [address] ECRCL 44.39 ml/min Low 50-250 [facility] Comment on above: Performed By: #### L 500.2500, L501.4021, L100.0100 ####[facility] [address] [place], [address] GAP 14 Normal 5-15 [facility] Comment on above: Performed By: #### L 500.2500, L501.4021, L100.0100 ####[facility] [address] [place], [address] GFR/1.73 sq M.predicted among non-blacks MDRD (S/P/Bld) [Vol rate/Area] 44 mL/min/{1.73_m2} Low >60 [facility] Comment on above: Result Comment: mL/m in/1.73m2 CKD-EPI Creatinine Equation (2020) Performed By: #### L 500.2500, L501.4021, L100.0100 ####[facility] [address] [place], [address] Glucose [Mass/Vol] 127 mg/dL High 70-99 [facility] Comment on above: Performed By: #### L 500.2500, L501.4021, L100.0100 ####[facility] [address] [place], [address] Potassium [Moles/Vol] 3.3 mmol/L Normal 3.3-5.1 [facility] Comment on above: Performed By: #### L 500.2500, L501.4021, L100.0100 ####[facility] [address] [place], [address] Sodium [Moles/Vol] 141 mmol/L Normal 133-145 [facility] Comment on above: Performed By: #### L 500.2500, L501.4021, L100.0100 ####[facility] [address] [place], [address] Urea nitrogen [Mass/Vol] 21 mg/dL High 4-19 [facility] Comment on above: Performed By: #### L 500.2500, L501.4021, L100.0100 ####[facility] [address] [place], [address] Basophil percentageOrdered B y: Lance Loja on 06-10-2024 Basophils/100 WBC (Bld) 0.7 % 0-[address] [facility] CBC W/Diff, Automatedon Absolute Lymph 1.86 X10 3/uL Normal 0.83-4.51 [facility] Comment on above: Performed By: #### L 500.2500, L501.4021, L100.0100 ####[facility] [address] [place], [address] Absolute Neut 7.7 X10 3/uL Normal 2.0-7.7 [facility] Comment on above: Performed By: #### L 500.2500, L501.4021, L100.0100 ####[facility] [address] [place], [address] Basophils/100 WBC (Bld) 0.7 % Normal 0-[address] [facility] Comment on above: Performed By: #### L 500.2500, L501.4021, L100.0100 ####[facility] [address] [place], [address] Eosinophils/100 WBC (Bld) 4.4 % Normal 0-5 [facility] Comment on above: Performed By: #### L 500.2500, L501.4021, L100.0100 ####[facility] [address] [place], [address] Erythrocyte distribution width (RBC) [Ratio] 13.8 % Normal 11.6-14.6 [facility] Comment on above: Performed By: #### L 500.2500, L501.4021, L100.0100 ####[facility] [address] [place], [address] Hematocrit (Bld) [Volume fraction] 45.7 % Normal 37-47 [facility] Comment on above: Performed By: #### L 500.2500, L501.4021, L100.0100 ####[facility] [address] [place], [address] Hemoglobin (Bld) [Mass/Vol] 15.2 g/dL High 12.0-15.0 [facility] Comment on above: Performed By: #### L 500.2500, L501.4021, L100.0100 ####[facility] [address] [place], [address] IG% 0.700 Normal 0.0-0.9 [facility] Comment on above: Result Comment: IG% - Immature Granulocytes (promyelocytes, myelocytes andmetamyelocytes) > 1% indicates that a LEFT SHIFT is Present. Performed By: #### L 500.2500, L501.4021, L100.0100 ####[facility] [address] [place], [address] Lymphocytes/100 WBC (Bld) 16.3 % Low 19-41 [facility] Comment on above: Performed By: #### L 500.2500, L501.4021, L100.0100 ####[facility] [address] [place], [address] MCH (RBC) [Entitic mass] 30.3 pg Normal 27.0-32.0 [facility] Comment on above: Performed By: #### L 500.2500, L501.4021, L100.0100 ####[facility] [address] [place], [address] MCHC (RBC) [Mass/Vol] 33.3 g/dL Normal 32-36 [facility] Comment on above: Performed By: #### L 500.2500, L501.4021, L100.0100 ####[facility] [address] [place], [address] MCV (RBC) [Entitic vol] 91.2 fL Normal 81-[address] [facility] Comment on above: Performed By: #### L 500.2500, L501.4021, L100.0100 ####[facility] [address] [place], [address] Monocytes/100 WBC (Bld) 10.3 % High 0-10 [facility] Comment on above: Performed By: #### L 500.2500, L501.4021, L100.0100 ####[facility] [address] [place], [address] Neutrophils/100 WBC (Bld) 67.6 % Normal 47-70 [facility] Comment on above: Performed By: #### L 500.2500, L501.4021, L100.0100 ####[facility] [address] [place], [address] Nucleated RBC (Bld) [#/Vol] 0 10*3/uL Normal 0-5 [facility] Comment on above: Performed By: #### L 500.2500, L501.4021, L100.0100 ####[facility] [address] [place], [address] Platelet mean volume (Bld) [Entitic vol] 10.1 fL Normal 6.2-12.0 [facility] Comment on above: Performed By: #### L 500.2500, L501.4021, L100.0100 ####[facility] [address] [place], [address] Platelets (Bld) [#/Vol] 180 10*3/uL Normal 150-450 [facility] Comment on above: Performed By: #### L 500.2500, L501.4021, L100.0100 ####[facility] [address] [place], [address] RBC (Bld) [#/Vol] 5.01 10*6/uL Normal 4.2-5.4 [facility] Comment on above: Performed By: #### L 500.2500, L501.4021, L100.0100 ####[facility] [address] [place], [address] RDW SD 46.0 fl High 35.1-43.9 [facility] Comment on above: Performed By: #### L 500.2500, L501.4021, L100.0100 ####[facility] [address] [place], [address] WBC (Bld) [#/Vol] 11.4 10*3/uL High 4.4-11.0 [facility] Comment on above: Performed By: #### L 500.2500, L501.4021, L100.0100 ####[facility] [address] [place], [address] CTA Chest W/WO Contraston CTA Chest W/WO Contrast Normal [facility] Carbon dioxide, total [Moles /volume] in Central venous bloodOrdered By: Lance Loja on 06-10-2024 CO2 [Moles/Vol] 25.2 mmol/L 21.0-32.0 [facility] Chest PA and Lateralon 06-10 Chest PA and Lateral Normal [facility] Chloride assayOrdered By: Joshua Loja on 06-10-2024 Chloride [Moles/Vol] 102 mmol/L 98-108 [facility] D-Dimer Quantitative (DVT/PE )on 06-10-2024 D-DIMER QUANT 3.20 FEU/ug/m Invalid Interpretation Code 0.27-0.49 [facility] Comment on above: Result Comment: CRIT ICAL VALUE CALLED TO MARINA MG RN ER/07/01 2301 Nick Fisher.RESULTS READ BACK BY SAME .D-Dimer ELEVATED (>0.49): Additional studies and clinicalassessments are indicated to conclude diagnosis of:Deep Vein Thrombosis (DVT) or Pulmonary Embolism (PE) Performed By: #### L 300.8000 ####[facility] [address] [place], [address] D-dimer measurement for deep venous thrombosisOrdered By: Lance Loja on 06-10-2024 D-Dimer Quantitative (PE/DVT) 3.20 FEU/ug/m High 0.27-0.49 [facility] Comment on above: CRITICAL VALUE UMANA D TO MARINA MG RN ER06/10/242301 Nick Fisher.RESULTS READ BACK BY SAME . D-Dimer ELEVATED (>0.49): Additional studies and clinicalassessments are indicated to conclude diagnosis of:Deep Vein Thrombosis (DVT) or Pulmonary Embolism (PE) Emergency Department Summary on 06-10-2024 Emergency Department Summary Normal [facility] Eosinophil percentageOrdered By: Lance Loja on 06-10-2024 Eosinophils/100 WBC (Bld) 4.4 % 0-5 [facility] Erythrocyte distribution wid th (RBC) [Ratio]Ordered By: Lance Loja on 06-10-2024 Erythrocyte distribution width (RBC) [Entitic vol] 46.0 fL High 35.1-43.9 [facility] Erythrocyte distribution wid th ratioOrdered By: Lance Loja on 06-10-2024 Erythrocyte distribution width (RBC) [Ratio] 13.8 % 11.6-14.6 [facility] Estimation of creatinine rashida aranceOrdered By: Lance Loja on 06-10-2024 Estimated Creatinine Clearance Calc 44.39 ml/min Low 50-250 [facility] GFR/1.73 sq M.predicted jessie g non-blacks MDRD (S/P/Bld) [Vol rate/Area]Ordered By: Lance Loja on 06-10-2024 Estimated GFR (MDRD) Non-Af Amer 44 Low >60 [facility] Comment on above: mL/min/1.73m2 CKD-EP I Creatinine Equation (2020) H AND P Exam - [facility] 06-10-2024 H&P Exam - Hospitalist Normal [facility] Hematocrit Auto (Bld) [Volum e fraction]Ordered By: Lance Loja on 06-10-2024 Hematocrit (Bld) [Volume fraction] 45.7 % 37-47 [facility] Hemoglobin measurementOrdere d By: Lance Loja on 06-10-2024 Hemoglobin (Bld) [Mass/Vol] 15.2 g/dL High 12.0-15.0 [facility] Immature granulocytes/100 WB C Auto (Bld)Ordered By: Lance Loja on 06-10-2024 Immature granulocytes/100 WBC (Bld) 0.700 % 0.0-0.9 [facility] Comment on above: IG% - Immature Granu locytes (promyelocytes, myelocytes and metamyelocytes) > 1% indicates that a LEFT SHIFT is Present. L501.4021on 06-10-2024 Trop T High Sen 37 ng/L High <=14 [facility] Comment on above: Performed By: #### L 500.2500, L501.4021, L100.0100 ####[facility] [address] [place], [address] Lymphocytes Auto (Unsp spec) [#/Vol]Ordered By: Lance Loja on 06-10-2024 Lymphocytes (Bld) [#/Vol] 1.86 10*3/uL 0.83-4.51 [facility] Lymphocytes/100 WBC Auto (Un sp spec)Ordered By: Lance Loja on 06-10-2024 Lymphocytes/100 WBC (Bld) 16.3 % Low 19-41 [facility] MCV (mean corpuscular volume ) determinationOrdered By: Lance Loja on 06-10-2024 MCV (RBC) [Entitic vol] 91.2 fL 81-[address] [facility] Magnesium (Unsp spec) [Mass/ Vol]Ordered By: Maria Garcia on 06-10-2024 Magnesium [Mass/Vol] 1.7 mg/dL 1.5-2.2 [facility] Magnesium measurement (mass/ volume)Ordered By: Maria Garcia on 06-10-2024 Magnesium (Unsp spec) [Mass/Vol] 1.7 mg/dL 1.5-2.2 [facility] Mean corpuscular hemoglobin (MCH) determinationOrdered By: Lance Loja on 06-10-2024 MCH (RBC) [Entitic mass] 30.3 pg 27.0-32.0 [facility] Mean corpuscular hemoglobin concentration (MCHC) determinationOrdered By: Lance Loja on 06-10-2024 MCHC (RBC) [Mass/Vol] 33.3 g/dL 32-36 [facility] Mean platelet volume determi nationOrdered By: Lance Loja on 06-10-2024 Platelet mean volume (Bld) [Entitic vol] 10.1 fL 6.2-12.0 [facility] Monocyte percentageOrdered B y: Lance Loja on 06-10-2024 Monocytes/100 WBC (Bld) 10.3 % High 0-[address] [facility] Natriuretic peptide.B prohor ajay N-Terminal [Mass/Vol]Ordered By: Maria Garcia on 06-10-2024 Natriuretic peptide B (Bld) [Mass/Vol] 436 pg/mL <900 [facility] Comment on above: Heart Failure Unlike ly: < 300 pg/mLHeart Failure Likely< 50 Years: > 450 pg/mL50-75 Years: > 900 pg/mL>75 Years: > 1800 pg/mL Natriuretic peptide.B prohor ajay N-Terminal [Mass/volume] in Serum or PlasmaOrdered By: Maria Garcia on 06-10-2024 Natriuretic peptide.B prohormone N-Terminal [Mass/Vol] 436 pg/mL <900 [facility] Comment on above: Heart Failure Unlike ly: < 300 pg/mLHeart Failure Likely< 50 Years: > 450 pg/mL50-75 Years: > 900 pg/mL>75 Years: > 1800 pg/mL Neutrophil percentageOrdered By: Lance Loja on 06-10-2024 Neutrophils/100 WBC (Bld) 67.6 % 47-70 [facility] Nucleated red blood cell per centageOrdered By: Lance Loja on 06-10-2024 Nucleated RBC/100 WBC (Bld) [Ratio] 0 % 0-5 [facility] Platelet countOrdered By: Joshua Loja on 06-10-2024 Platelets (Bld) [#/Vol] 180 10*3/uL 150-450 [facility] Potassium (Unsp spec) [Mass/ Vol]Ordered By: Lance Loja on 06-10-2024 Potassium [Moles/Vol] 3.3 mmol/L 3.3-5.1 [facility] RBC Auto (Bld) [#/Vol]Ordere d By: Lance Loja on 06-10-2024 RBC (Bld) [#/Vol] 5.01 10*6/uL 4.2-5.4 [facility] Serum creatinine measurement (mass/volume)Ordered By: Lance Loja on 06-10-2024 Creatinine [Mass/Vol] 1.34 mg/dL High 0.70-1.20 [facility] Serum glucose measurement (m ass/volume)Ordered By: Lance Loja on 06-10-2024 Glucose [Mass/Vol] 127 mg/dL High 70-99 [facility] Serum or plasma calcium israel urement (mass/volume)Ordered By: Lance Loja on 06-10-2024 Calcium [Mass/Vol] 9.7 mg/dL 7.6-11.0 [facility] Serum or plasma urea nitroge n measurement (mass/volume)Ordered By: Lance Loja on 06-10-2024 Urea nitrogen [Mass/Vol] 21 mg/dL High 4-19 [facility] Sodium levelOrdered By: Colt Loja on 06-10-2024 Sodium [Moles/Vol] 141 mmol/L 133-145 [facility] Troponin T.cardiac High sens itivity method [Mass/Vol]Ordered By: Lance Loja on 06-10-2024 Troponin T High Sensitivity 37 ng/L High <14 [facility] Comment on above: Delta: 26 on 5-1437 Troponin T.cardiac [Mass/vol ume] in Serum or Plasma by High sensitivity methodOrdered By: Lance Loja on 06-10-2024 Troponin T.cardiac High sensitivity method [Mass/Vol] 37 ng/L High <14 [facility] Comment on above: Delta: 26 on 5-1437 White blood cell (WBC) count Ordered By: Lance Loja on 06-10-2024 WBC (Bld) [#/Vol] 11.4 10*3/uL High 4.4-11.0 [facility] Echo Completeon 06-08-2024 Echo Complete Normal [facility] Echocardiogram study reportO rdered By: Valentin Barrios on 06-08-2024 Study report [facility] [address] [place] [address] Echo Complete 06/08/24 1108 MR#: [id number] Acct: [id number] Name: SAVANNAH AGUIRRE Rep #:[id number] : 1960 63 From: Valentin Gray Attending Dr: Dr. Shahab Adams, Status: REG CLI Ordering Dr: Shahab Adams DO Date: 0 06/08/24 Location: [facility] Sex: F C Admitted: Reason For Study Reason For Study: HEART Procedure This was a 2D Doppler, Color Flow transthoracic echocardiogram. Exam performed in department. Left Ventricle Normal LV size. Left ventricular systolic function is normal. The left ventricular ejection fraction is 60 %. No regional wall motion abnormalities noted. Right Ventricle Normal RV size. Normal systolic function. Atria Normal left atrium. Normal right atrium. Mitral Valve Normal mitral valve. Tricuspid Valve Normal tricuspid valve. Aortic Valve Normal aortic valve. Pulmonic Valve Normal pulmonic valve. Great Vessels Normal aortic root. The pulmonary artery is normal size. Normal inferior vena cava. Pericardium/Pleural Trivial pericardial effusion. MMode/2D Measurements & Calculations LVIDd: 4.3 cm IVSd: 0.85 cm Ao root diam: 2.7 cm LVIDs: 2.9 cm LVPWd: 0.82 cm RVDd: 3.3 cm FS: 32.6 % LAV(MOD-bp): 41.3 ml LVAd ap4: 24.2 cm2 SV(MOD-sp4): 45.3 ml LAV(MOD-bp) Indexed: 21.3 ml/m2 LVLd ap4: 7.1 cm SI(MOD-sp4): 23.4 ml/m2 LAV(MOD-sp2): 42.7 ml EDV(MOD-sp4): 67.6 ml LAV(MOD-sp4): 38.0 ml EDV(sp4-el): 70.6 ml LVAs ap4: 12.3 cm2 LVLs ap4: 5.8 cm ESV(MOD-sp4): 22.3 ml ESV(sp4-el): 22.1 ml EF(MOD-sp4): 67.1 % EF(sp4-el): 68.6 % SV(sp4-el): 48.4 ml LA A4 area: 16.2 cm2 LA dimension(2D): 2.9 cm RA A4 area: 14.1 cm2 TAPSE: 2.3 cm Time Measurements MV dec time: 0.24 sec Doppler Measurements & Calculations MV E max jason: 74.4 cm/sec Lat Peak E' Jason: 7.2 cm/sec Med Peak E' Jason: 6.7 cm/sec MV A max jason: 100.7 cm/sec E/E' lat: 10.4 E/E' med: 11.1 MV E/A: 0.74 Ao V2 max: 168.0 cm/sec LV V1 max: 139.6 cm/sec PA V2 max: 103.7 cm/sec Ao max P.3 mmHg LV V1 max P.8 mmHg ECHO/Echo Complete Interpretation Summary Normal LV size. Left ventricular systolic function is normal. The left ventricular ejection fraction is 60 %. Trivial pericardial effusion. Structurally normal valves. Ordering Physician: Shahab Adams Referring Physician: Shahab Adams Performed By: Mari Clark RDCS 06/08/24 1422 Date _ Valentin Barrios MD CC: Dr. 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 Sufficiency/Optimal Levels: 31-80 ng/mL Toxicity: > 100 ng/mL. Test performed by chemiluminescent immunoassay. Performed By: #### 1 989-3 ####[facility] LABCLIA [id number] [place] [address] [place] 25-hydroxyvitamin D3 [Mass/V ol]on 05-26-2024 Interpretation and review of laboratory results Normal [facility] The reference range interval was based on an analysis of samples from healthy adults and may not pertain to children from 0-18 years old. [facility] ACTIVATED PARTIAL THROMBOPLA STIN TIMEon 05-26-2024 aPTT Coag (PPP) [Time] 22.4 s Low Cl [facility] C-REACTIVE PROTEINon 025 CRP [Mass/Vol] 0.5 mg/dL [facility] - 0.9 mg/dL [facility] CBC W Auto Differential pane l (Bld)on 05-26-2024 Basophils (Bld) [#/Vol] 0.05 10*3/uL [facility] Basophils/100 WBC (Bld) 0.5 % [facility] Differential cell count method Nom (Bld) Auto [facility] Eosinophils (Bld) [#/Vol] 0.09 10*3/uL [facility] Eosinophils/100 WBC (Bld) 1 % [facility] Erythrocyte distribution width (RBC) [Ratio] 13.5 % 11.5 - 15.0 % [facility] Hematocrit (Bld) [Volume fraction] 46.1 % High 36.0 - 46.0 % [facility] Hemoglobin (Bld) [Mass/Vol] 15.1 g/dL 11.5 - 15.5 g/dL [facility] Immature granulocytes (Bld) [#/Vol] 0.08 10*3/uL [facility] Immature granulocytes/100 WBC (Bld) 0.8 % [facility] Interpretation and review of laboratory results Abnormal [facility] Lymphocytes (Bld) [#/Vol] 0.7 10*3/uL Low [facility] Lymphocytes/100 WBC (Bld) 7.4 % [facility] MCH (RBC) [Entitic mass] 30.7 pg 26.0 - 34.0 pg [facility] MCHC (RBC) [Mass/Vol] 32.8 g/dL 30.5 - 36.0 g/dL [facility] MCV (RBC) [Entitic vol] 93.7 fL 80.0 - 100.0 fL [facility] Monocytes (Bld) [#/Vol] 0.75 10*3/uL [facility] Monocytes/100 WBC (Bld) 8 % [facility] Neutrophils (Bld) [#/Vol] 7.75 10*3/uL High [facility] Neutrophils/100 WBC (Bld) 82.3 % [facility] Nucleated RBC (Bld) [#/Vol] [facility] Nucleated RBC/100 WBC (Bld) [Ratio] 0 % /100 WBC [facility] Platelet mean volume (Bld) [Entitic vol] 9.8 fL 9.0 - 12.7 fL [facility] Platelets (Bld) [#/Vol] 230 10*3/uL [facility] RBC (Bld) [#/Vol] 4.92 10*6/uL 3.90 - 5.20 m/uL [facility] WBC (Bld) [#/Vol] 9.42 10*3/uL [facility] Basophils (Bld) [#/Vol] 0.05 10*3/uL Normal <0.11 [facility] Comment on above: Order Comment: Speci men Type: BLOOD SPECIMENOrdering Facility: [facility] Address: [address] [place] [address] Performed By: #### 4 537-7, 05397-5 ####[facility] LABCLIA [id number] [address] [place] Basophils/100 WBC (Bld) 0.5 % Normal [facility] Comment on above: Order Comment: Speci men Type: BLOOD SPECIMENOrdering Facility: [facility] Address: [address] [place] [address] Performed By: #### 4 537-7, 47647-6 ####[facility] LABCLIA [id number] [place] [address] [place] Differential cell count method Nom (Bld) Auto Normal [facility] Comment on above: Order Comment: Speci men Type: BLOOD SPECIMENOrdering Facility: [facility] Address: [address] [place] [address] Performed By: #### 4 537-7, 03629-8 ####[facility] LABCLIA [id number] [place] [address] [place] Eosinophils (Bld) [#/Vol] 0.09 10*3/uL Normal <0.46 [facility] Comment on above: Order Comment: Speci men Type: BLOOD SPECIMENOrdering Facility: [facility] Address: [address] [place] [address] Performed By: #### 4 537-7, 81126-9 ####[facility] LABCLIA [id number] [address] [place] Eosinophils/100 WBC (Bld) 1.0 % Normal [facility] Comment on above: Order Comment: Speci men Type: BLOOD SPECIMENOrdering Facility: [facility] Address: [address] [place] [address] Performed By: #### 4 537-7, 22632-2 ####[facility] LABIA [id number] [place] [address] [place] Erythrocyte distribution width (RBC) [Ratio] 13.5 % Normal 11.5-15.0 [facility] Comment on above: Order Comment: Speci men Type: BLOOD SPECIMENOrdering Facility: [facility] Address: [address] [place] [address] Performed By: #### 4 537-7, 96908-7 ####[facility] LABCLIA [id number] [place] [address] [place] Hematocrit (Bld) [Volume fraction] 46.1 % High 36.0-46.0 [facility] Comment on above: Order Comment: Speci men Type: BLOOD SPECIMENOrdering Facility: [facility] Address: [address] [place] [address] Performed By: #### 4 537-7, 07151-8 ####[facility] LABIA [id number] [place] [address] [place] Hemoglobin (Bld) [Mass/Vol] 15.1 g/dL Normal 11.5-15.5 [facility] Comment on above: Order Comment: Speci men Type: BLOOD SPECIMENOrdering Facility: [facility] Address: [address] [place] [address] Performed By: #### 4 537-7, 62671-3 ####[facility] LABIA [id number] [place] [address] [place] Immature granulocytes (Bld) [#/Vol] 0.08 10*3/uL Normal <0.10 [facility] Comment on above: Order Comment: Speci men Type: BLOOD SPECIMENOrdering Facility: [facility] Address: [address] [place] [address] Performed By: #### 4 537-7, 21544-2 ####[facility] LABIA [id number] [place] [address] [place] Immature granulocytes/100 WBC (Bld) 0.8 % Normal [facility] Comment on above: Order Comment: Speci men Type: BLOOD SPECIMENOrdering Facility: [facility] Address: [address] [place] [address] Performed By: #### 4 537-7, 65028-3 ####[facility] LABCLIA [id number] [place] [address] [place] Lymphocytes (Bld) [#/Vol] 0.70 10*3/uL Low 1.00-4.00 [facility] Comment on above: Order Comment: Speci men Type: BLOOD SPECIMENOrdering Facility: [facility] Address: [address] [place] [address] Performed By: #### 4 537-7, 09781-7 ####[facility] LABIA [id number] [place] [address] [place] Lymphocytes/100 WBC (Bld) 7.4 % Normal [facility] Comment on above: Order Comment: Speci men Type: BLOOD SPECIMENOrdering Facility: [facility] Address: [address] [place] [address] Performed By: #### 4 537-7, 87266-2 ####[facility] LABIA [id number] [place] [address] [place] MCH (RBC) [Entitic mass] 30.7 pg Normal 26.0-34.0 [facility] Comment on above: Order Comment: Speci men Type: BLOOD SPECIMENOrdering Facility: [facility] Address: [address] [place] [address] Performed By: #### 4 537-7, 33661-1 ####[facility] LABIA [id number] [place] [address] [place] MCHC (RBC) [Mass/Vol] 32.8 g/dL Normal 30.5-36.0 [facility] Comment on above: Order Comment: Speci men Type: BLOOD SPECIMENOrdering Facility: [facility] Address: [address] [place] [address] Performed By: #### 4 537-7, 37696-8 ####[facility] LABIA [id number] [place] [address] [place] MCV (RBC) [Entitic vol] 93.7 fL Normal 80.0-100.0 [facility] Comment on above: Order Comment: Speci men Type: BLOOD SPECIMENOrdering Facility: [facility] Address: [address] [place] [address] Performed By: #### 4 537-7, 28748-3 ####[facility] LABCLIA [id number] [facility] [place] [address] [place] Monocytes (Bld) [#/Vol] 0.75 10*3/uL Normal <0.87 [facility] Comment on above: Order Comment: Speci men Type: BLOOD SPECIMENOrdering Facility: [facility] Address: [address] [place] [address] Performed By: #### 4 537-7, 71790-0 ####[facility] LABCLIA [id number] [address] [place] Monocytes/100 WBC (Bld) 8.0 % Normal [facility] Comment on above: Order Comment: Speci men Type: BLOOD SPECIMENOrdering Facility: [facility] Address: [address] [place] [address] Performed By: #### 4 537-7, 17372-4 ####[facility] LABCLIA [id number] [facility] [place] [place] [address] [place] Neutrophils (Bld) [#/Vol] 7.75 10*3/uL High 1.45-7.50 [facility] Comment on above: Order Comment: Speci men Type: BLOOD SPECIMENOrdering Facility: [facility] Address: [address] [place] [address] Performed By: #### 4 537-7, 43363-6 ####[facility] LABCLIA [id number] [facility] [place] [id number] [place] Neutrophils/100 WBC (Bld) 82.3 % Normal [facility] Comment on above: Order Comment: Speci men Type: BLOOD SPECIMENOrdering Facility: [facility] Address: [address] [place] [address] Performed By: #### 4 537-7, 12294-6 ####[facility] LABIA [id number] [place] [address] [place] Nucleated RBC (Bld) [#/Vol] 10*3/uL Normal <0.01 [facility] Comment on above: Order Comment: Speci men Type: BLOOD SPECIMENOrdering Facility: [facility] Address: [address] [place] [address] Performed By: #### 4 537-7, 51209-5 ####[facility] LABIA [id number] [place] [address] [place] Nucleated RBC/100 WBC (Bld) [Ratio] 0.0 /100 WBC Normal [facility] Comment on above: Order Comment: Speci men Type: BLOOD SPECIMENOrdering Facility: [facility] Address: [address] [place] [address] Performed By: #### 4 537-7, 20206-4 ####[facility] [id number] [place] [address] [place] Platelet mean volume (Bld) [Entitic vol] 9.8 fL Normal 9.0-12.7 [facility] Comment on above: Order Comment: Speci men Type: BLOOD SPECIMENOrdering Facility: [facility] Address: [address] [place] [address] Performed By: #### 4 537-7, 46556-4 ####[facility] LABIA [id number] [place] [id number] [place] Platelets (Bld) [#/Vol] 230 10*3/uL Normal 150-400 [facility] Comment on above: Order Comment: Speci men Type: BLOOD SPECIMENOrdering Facility: [facility] Address: [address] [place], [place] [address] Performed By: #### 4 537-7, 37836-8 ####[facility] LABIA [id number] [place] [address] [place] RBC (Bld) [#/Vol] 4.92 10*6/uL Normal 3.90-5.20 [facility] Comment on above: Order Comment: Speci men Type: BLOOD SPECIMENOrdering Facility: [facility] Address: [address] [place] [address] Performed By: #### 4 537-7, 93718-6 ####[facility] [id number] [place] [address] [place] WBC (Bld) [#/Vol] 9.42 10*3/uL Normal 3.70-11.00 [facility] Comment on above: Order Comment: Speci men Type: BLOOD SPECIMENOrdering Facility: [facility] Address: [address] [place] [address] Performed By: #### 4 537-7, 16187-4 ####[facility] [id number] [place] [id number] [place] CNOVon 05-26-2024 CNOV Office Visit (RHEUMN ) SAVANNAH AGUIRRE ([id number]) 1960 F Date Time Provider Department 05/26/24 11:00 AM CHRIS CODY During your visit today, we recorded the following information about you: Temperature Pulse Blood pressure Weight 97.3 degrees 65/minute 156/70 91.9 kg Height 1.6 m Chris Cody MD 05/26/2024 2:18 PM Signed [facility] Date of Service: 05/26/2024 Patient: Savannah Aguirre Medical Record: [id number] Primary Care Physician: Shahab Adams DO Last Rheumatology visit: 04/07/2024 (with Chris Cody) History of Present Illness Savannah Aguirre is a 63 year old White female who presents on 05/26/2024 for in person visit for evaluation of Rheumatoid Arthritis. She is currently taking adalimumab, leflunomide, prednisone. Savannah is both RF - 9 (11/21/2022) and CCP - 13.5 (11/21/2022) negative. Her most recent CHASIDY was negative (01/16/2023). HISTORY OF PRESENT ILLNESS Patient scheduled to see me today for arthritis. 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 8-10 years dx'ed with RA but blood test and pain- hips, shoulders, feet. Patient has CRI, she used Methotrexate for one week and stopped. Treatment has included low dose predisone forever. Plaquenil Tried Enbrel about 2 years ago- states not sure if this helped. Stopped the Enbrel as prescription ran out. Then moved to [facility]. - thinks again on for a few years , she is not quite sure when last injection was, maybe 9-12 months ago. Not sure if the Orencia was helping Current medications: Plaquenil 200 mg BID- goes every 6 months to [facility]. Past Medical History: - Chronic kidney disease stage III (2/2 chronic NSAID use) - Pain management Past Surgical History: - Tonsillectomy - Hysterectomy - Thyroid partial - Carpal tunnel release b/l - Spinal cord stimulator placement and removal Family History: - mother had some sort of pain issues (fibromyalgia) - grandmother - maybe osteoarthritis Social History: - Never smoker - Rare alcohol use - No other drugs Seen pain management- she is on norco 2-4 pill per day, gabapentin 3 times per day. + chronic back pain, had past spinal cord stimulator that had to be removed body rejected it' No prior surgery on her joints. Joints are not good. Describes dull tenderness- wrists, back, ankles, feet. She is getting swelling of her joints. She has some nodules of wrist and hand. Likes to sew, crafting, not on regular exercise regime, ADL's Has also been diagnosed Fibromyalgia, maybe on antidepressant but made me more depressed. Sleep is poor. Takes naps during the day. 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 INTERVAL HISTORY She has been having worsening shortness of breath over the last few weeks-months. She went to an ER about 3 weeks ago ([facility]) that showed normal chest x-ray and normal EKG. Normal labs as well. She gets short of breath with exertion. She does not know if she has dyspnea with recumbence, but she does get bendopnea. She is getting swelling in the legs and hands. Has gained 7 lbs in 2 weeks She has since stopped hydroxychloroquine. She has a floater. No changes Patient-Entered Data PROMIS Assessments 09/29/2023 12/30/2023 04/06/2024 PROMIS Global Health - (T-Scores - the mean of general population = 50. Five points is a clinically meaningful difference.) Physical T-Score 29.6 39.8 39.8 Mental T-Score 38.8 48.3 38.8 12/30/2023 04/06/2024 05/25/2024 PROMIS CAT Pain Interference PROMIS Pain Interference T-Score (range: 10 - 90) 67 (moderate) 68 (moderate) 65 (moderate) PROMIS Pain Interference Percentile 4 4 7 PROMIS Adult Short Form-Global Health Score (Mental) 48.3 (Very Good) 38.8 (Fair) 12/30/2023 04/06/2024 05/25/2024 PROMIS CAT Fatigue PROMIS Fatigue T-Score 64 (moderate) 62 (moderate) 64 (moderate) PROMIS Fatigue Percentile 8 12 8 12/30/2023 04/06/2024 05/25/2024 PROMIS PHYSICAL FUNCTION T-SCORE PROMIS Physical Function T-Score 31 (moderate dysfunction) 33 (moderate dysfunction) 32 (moderate dysfunction) Physical Function Percentile 3 4 4 RAPID 3 [facility] Activities of Daily Living 05/25/2024 11:46 PM 04/06/2024 11:40 PM 12/30/2023 8:34 PM First answer obtained - 11/18/2022 1:01 AM Dress self? With SOME difficulty With SOME difficulty With SOME difficulty With SOME difficulty Get in and out of bed? With SOME difficulty With SOME difficulty With SOME difficulty With SOME difficulty Walk outdoors? With MUCH difficulty With SOME difficulty With SOME difficulty With SOME difficulty Wash and dry body? With SOME difficulty With SOME difficulty With SOME difficulty With SOME difficulty (more content not included)... Normal [facility] CRP SerPl-mCncon 05-26-2024 CRP [Mass/Vol] 0.5 mg/dL Normal <0.9 [facility] Comment on above: Order Comment: Speci men Type: BLOOD SPECIMENOrdering Facility: [facility] Address: [address] [place] [address] Performed By: #### 1 988-5, 22858-2, 78642-8, 3084-1 ####[facility] LABCLIA [id number] [address] [facility] Comprehensive metabolic 2000 panelon 05-26-2024 Albumin [Mass/Vol] 4.1 g/dL 3.9 - 4.9 g/dL [facility] ALP [Catalytic activity/Vol] 93 U/L 34 - 123 U/L [facility] ALT [Catalytic activity/Vol] 60 U/L High 7 - 38 U/L [facility] Anion gap [Moles/Vol] 13 mmol/L 8 - 15 mmol/L [facility] AST [Catalytic activity/Vol] 42 U/L High 13 - 35 U/L [facility] Bilirubin [Mass/Vol] 0.7 mg/dL 0.2 - 1 .3 mg/dL [facility] Calcium [Mass/Vol] 10.5 mg/dL High 8.5 - 10. 2 mg/dL [facility] Chloride [Moles/Vol] 103 mmol/L 98 - 10 7 mmol/L [facility] CO2 [Moles/Vol] 27 mmol/L 22 - 30 mmol/L [facility] Creatinine [Mass/Vol] 1.17 mg/dL High 0.58 - 0.96 mg/dL [facility] GFR/1.73 sq M.predicted among non-blacks MDRD (S/P/Bld) [Vol rate/Area] 52 mL/min/{1.73_m2} Low - PINF [facility] Comment on above: Estimated Glomerular Filtration Rate (eGFR) is calculated using the 2020 CKD-EPI creatinine equation. This equation utilizes serum creatinine, sex, and age as parameters. The creatinine assay has traceable calibration to isotope dilution-mass spectrometry. Refer to KDIGO guidelines for clinical interpretation. In patients with unstable renal function, e.g. those with acute kidney injury, the eGFR may not accurately reflect actual GFR. Glucose [Mass/Vol] 129 mg/dL High 74 - 99 mg/dL [facility] Comment on above: The [place] Diab[employer] s Association (ADA) provides guidance for cutoff values for fasting glucose and random glucose. The ADA defines fasting as no caloric intake for at least 8 hours. Fasting plasma glucose results between 100 to 125 mg/dL indicate increased risk for diabetes (prediabetes). Fasting plasma glucose results greater than or equal to 126 mg/dL meet the criteria for diagnosis of diabetes. In the absence of unequivocal hyperglycemia, results should be confirmed by repeat testing. In a patient with classic symptoms of hyperglycemia or hyperglycemic crisis, random plasma glucose results greater than or equal to 200 mg/dL meet the criteria for diagnosis of diabetes. Reference: Standards of Medical Care in Diabetes 2016, [place] Diabetes Association. Diabetes Care. 2016.39(Suppl 1). Potassium [Moles/Vol] 4.6 mmol/L 3.7 - 5.1 mmol/L [facility] Protein [Mass/Vol] 7 g/dL 6.3 - 8.0 g/dL [facility] Sodium [Moles/Vol] 143 mmol/L 136 - 144 mmol/L [facility] Urea nitrogen [Mass/Vol] 30 mg/dL High 7 - 21 mg/dL [facility] Albumin [Mass/Vol] 4.1 g/dL Normal 3.9-4.9 [facility] Comment on above: Order Comment: Speci men Type: BLOOD SPECIMENOrdering Facility: [facility] Address: [address] [place] [address] Performed By: #### 1 988-5, 88183-0, 64771-1, 3084-1 ####[facility] LABCLIA [id number] [place] [address] [place] ALP [Catalytic activity/Vol] 93 U/L Normal 34-123 [facility] Comment on above: Order Comment: Speci men Type: BLOOD SPECIMENOrdering Facility: [facility] Address: [address] [place], [place] [address] Performed By: #### 1 988-5, 19201-9, 16795-5, 3084-1 ####[facility] LABCLIA [id number] [address] [address] [place] ALT [Catalytic activity/Vol] 60 U/L High 7-38 [facility] Comment on above: Order Comment: Speci men Type: BLOOD SPECIMENOrdering Facility: [facility] Address: [address] [place], [place] [address] Performed By: #### 1 988-5, 24628-5, 14466-9, 3084-1 ####[facility] LABCLIA [id number] [place] [id number] [place] Anion gap [Moles/Vol] 13 mmol/L Normal 8-15 [facility] Comment on above: Order Comment: Speci men Type: BLOOD SPECIMENOrdering Facility: [facility] Address: [address] [place], [place] [address] Performed By: #### 1 988-5, 87579-1, 79565-7, 3084-1 ####[facility] LABIA [id number] [address] [address] [place] AST [Catalytic activity/Vol] 42 U/L High 13-35 [facility] Comment on above: Order Comment: Speci men Type: BLOOD SPECIMENOrdering Facility: [facility] Address: [address] [place], [place] [address] Performed By: #### 1 988-5, 22176-9, 80589-5, 3084-1 ####[facility] LABCLIA [id number] [address] [address] [place] Bilirubin [Mass/Vol] 0.7 mg/dL Normal 0.2-1.3 [facility] Comment on above: Order Comment: Speci men Type: BLOOD SPECIMENOrdering Facility: [facility] Address: [address] [place], [place] [address] Performed By: #### 1 988-5, 16838-3, 32971-6, 3084-1 ####[facility] LABCLIA [id number] [facility] [address] [address] [place] Calcium [Mass/Vol] 10.5 mg/dL High 8.5-10.2 [facility] Comment on above: Order Comment: Speci men Type: BLOOD SPECIMENOrdering Facility: [facility] Address: [address] [place] [address] Performed By: #### 1 988-5, 75664-8, 09468-2, 3084-1 ####[facility] LABIA [id number] [place] [id number] [place] Chloride [Moles/Vol] 103 mmol/L Normal 98-107 [facility] Comment on above: Order Comment: Speci men Type: BLOOD SPECIMENOrdering Facility: [facility] Address: [address] [place] [address] Performed By: #### 1 988-5, 97682-8, 42245-4, 3084-1 ####[facility] LABIA [id number] [address] [address] [place] CO2 [Moles/Vol] 27 mmol/L Normal 22-30 [facility] Comment on above: Order Comment: Speci men Type: BLOOD SPECIMENOrdering Facility: [facility] Address: [address] [place], [place] [address] Performed By: #### 1 988-5, 73864-0, 52409-2, 3084-1 ####[facility] LABCLIA [id number] [facility]ALD COASTK [address] [place] [address] [place] Creatinine [Mass/Vol] 1.17 mg/dL High 0.58-0.96 [facility] Comment on above: Order Comment: Yaya story Type: BLOOD SPECIMENOrdering Facility: [facility] Address: [address] [place] [address] Performed By: #### 1 988-5, 01581-4, 20691-0, 3084-1 ####[facility] LABCLIA [id number] [address] [address] [place] Creatinine and Glomerular filtration rate.predicted panel (S/P/Bld) 52 mL/min/1.73m??? Low >=60 [facility] Comment on above: Order Comment: Yaya story Type: BLOOD SPECIMENOrdering Facility: [facility] Address: [address] [place] [address] Result Comment: Aileen mated Glomerular Filtration Rate (eGFR) is calculated using the 2020 CKD-EPI creatinine equation. This equation utilizes serum creatinine, sex, and age as parameters. The creatinine assay has traceable calibration to isotope dilution-mass spectrometry. Refer to KDIGO guidelines for clinical interpretation. In patients with unstable renal function, e.g. those with acute kidney injury, the eGFR may not accurately reflect actual GFR. Performed By: #### 1 988-5, 29770-1, 87938-7, 3084-1 ####[facility] LABCLIA [id number] [address] [address] [place] Glucose [Mass/Vol] 129 mg/dL High 74-99 [facility] Comment on above: Order Comment: Yaya story Type: BLOOD SPECIMENOrdering Facility: [facility] Address: [address] [place] [address] Result Comment: The [place] [employer] (ADA) provides guidance for cutoff values for fasting glucose and random glucose. The ADA defines fasting as no caloric intake for at least 8 hours. Fasting plasma glucose results between 100 to 125 mg/dL indicate increased risk for diabetes (prediabetes). Fasting plasma glucose results greater than or equal to 126 mg/dL meet the criteria for diagnosis of diabetes. In the absence of unequivocal hyperglycemia, results should be confirmed by repeat testing. In a patient with classic symptoms of hyperglycemia or hyperglycemic crisis, random plasma glucose results greater than or equal to 200 mg/dL meet the criteria for diagnosis of diabetes. Reference: Standards of Medical Care in Diabetes 2016, [place] [employer] Association. Diabetes Care. 2016.39(Suppl 1). Performed By: #### 1 988-5, 75771-1, 46553-4, 3084-1 ####[facility] LABCLIA [id number] [facility] [id number] [address] [place] Potassium [Moles/Vol] 4.6 mmol/L Normal 3.7-5.1 [facility] Comment on above: Order Comment: Speci men Type: BLOOD SPECIMENOrdering Facility: [facility] Address: [address] [place], [place] [address] Performed By: #### 1 988-5, 36979-3, 63331-0, 3084-1 ####[facility] LABCLIA [id number] [facility] [address] [place] [address] [place] Protein [Mass/Vol] 7.0 g/dL Normal 6.3-8.0 [facility] Comment on above: Order Comment: Speci men Type: BLOOD SPECIMENOrdering Facility: [facility] Address: [address] [place], [place] [address] Performed By: #### 1 988-5, 89499-1, 63485-7, 4-1 ####[facility] LABIA [id number] [facility] [address] [place] [address] [place] Sodium [Moles/Vol] 143 mmol/L Normal 136-144 [facility] Comment on above: Order Comment: Speci men Type: BLOOD SPECIMENOrdering Facility: [facility] Address: [address] [place], [place] [address] Performed By: #### 1 988-5, 20635-4, 36767-6, 3084-1 ####[facility] LABCLIA [id number] [facility] [id number] [address] [place] Urea nitrogen [Mass/Vol] 30 mg/dL High 7-21 [facility] Comment on above: Order Comment: Speci men Type: BLOOD SPECIMENOrdering Facility: [facility] Address: [address] [place] [address] Performed By: #### 1 988-5, 02486-7, 60104-4, 3084-1 ####[facility] LABCLIA [id number] [place] [address] [place] ESR Westergren method (Bld) [Velocity]on 05-26-2024 ESR (Bld) [Velocity] 5 mm/h [facility] Interpretation and review of laboratory results Normal [facility] ESR (Bld) [Velocity] 5 mm/h Normal 0-20 [facility] Comment on above: Order Comment: Speci men Type: BLOOD SPECIMENOrdering Facility: [facility] Address: [address] [place] [address] Performed By: #### 4 537-7, 50247-2 ####[facility] LABCLIA [id number] [place] [id number] [place] G-6-PD QUANTITATIVEon 2024 G6PD (RBC) [Catalytic activity/Mass] 15.6 High [facility] Comment on above: There is no known cl inical significance of G6PD activity results above the reference interval. This test was developed, and its performance characteristics determined by the [facility] Department of Pathology and Laboratory Medicine. It has not been cleared or approved by the FDA. The [facility] Department of Pathology and Laboratory Medicine is regulated under CLIA as qualified to perform high-complexity testing. This test is used for clinical purposes. It should not be regarded as investigational or for research. Interpretation and review of laboratory results Abnormal [facility] G6PD (RBC) [Catalytic activity/Mass] 15.6 U/g Hb High 9.8-15.5 [facility] Comment on above: Order Comment: Speci men Type: BLOOD SPECIMENOrdering Facility: [facility] Address: [address] [place] [address] Result Comment: Ther e is no known clinical significance of G6PD activity results above the reference interval. This test was developed, and its performance characteristics determined by the [facility] Department of Pathology and Laboratory Medicine. It has not been cleared or approved by the FDA. The [facility] Department of Pathology and Laboratory Medicine is regulated under CLIA as qualified to perform high-complexity testing. This test is used for clinical purposes. It should not be regarded as investigational or for research. Performed By: #### Q TG6PD ####[facility] LABCLIA [id number] [address] [facility] NT PRO BNPon 05-26-2024 Natriuretic peptide.B prohormone N-Terminal [Mass/Vol] 188 pg/mL High NINF - 125 pg/mL [facility] NT-proBNP SerPl-mCncon 05-26 Natriuretic peptide.B prohormone N-Terminal [Mass/Vol] 188 pg/mL High <125 [facility] Comment on above: Order Comment: Speci men Type: BLOOD SPECIMENOrdering Facility: [facility] Address: [address] [place] [address] Performed By: #### 1 988-5, 78889-6, 01632-9, 3084-1 ####[facility] LABCLIA [id number] [address] [place] No Panel Informationon 05-26 Interpretation and review of laboratory results Abnormal [facility] Interpretation and review of laboratory results Normal [facility] PT panel Coag (PPP)on 2024 INR Coag (PPP) [Relative time] 1 {INR} 0.9 - 1.3 [facility] Comment on above: Vitamin K Antagonist (VKA) Therapeutic Range: INR 2 to 3 (Target INR of 2.5) Note: For patients treated with VKA drugs, such as warfarin, the [place] [employer] 2012 Guideline recommends a therapeutic INR range of 2 to 3 (target INR of 2.5). This recommendation includes high-risk patients with antiphospholipid syndrome with previous arterial or venous thromboembolism, current-generation mechanical or bioprosthetic aortic heart valve replacement. Note: Patients with mechanical aortic valve replacement and additional risk factors for thromboembolic events (atrial fibrillation, previous thromboembolism, LV dysfunction, hypercoagulable conditions) or an older generation mechanical AVR (i.e., ball in-Cage) or any mechanical MVR should have a INR therapeutic range of 2.5 to 3.5 (target INR of 3). Haylee WEBB et matheus. Chest 2012, 141:7S-47S Elisha RAMIRES et al. [facility] 2017, 70: 252-289 Interpretation and review of laboratory results Normal [facility] PT Coag (PPP) [Time] 10.4 s [facility] INR Coag (PPP) [Relative time] 1.0 {INR} Normal 0.9-1.3 [facility] Comment on above: Order Comment: Yaya story Type: BLOOD SPECIMENOrdering Facility: [facility] Address: [address] [place] [address] Result Comment: Paola min K Antagonist (VKA) Therapeutic Range: INR 2 to 3 (Target INR of 2.5) Note: For patients treated with VKA drugs, such as warfarin, the [place] [employer] 2012 Guideline recommends a therapeutic INR range of 2 to 3 (target INR of 2.5). This recommendation includes high-risk patients with antiphospholipid syndrome with previous arterial or venous thromboembolism, current-generation mechanical or bioprosthetic aortic heart valve replacement. Note: Patients with mechanical aortic valve replacement and additional risk factors for thromboembolic events (atrial fibrillation, previous thromboembolism, LV dysfunction, hypercoagulable conditions) or an older generation mechanical AVR (i.e., ball in-Cage) or any mechanical MVR should have a INR therapeutic range of 2.5 to 3.5 (target INR of 3). Haylee WEBB, et al. Chest 2012, 141:7S-47S Elisha RAMIRES et al. [facility] 2017, 70: 252-289 Performed By: #### 3 4528-0, 18075-0 ####[facility] LABCLIA [id number] [address] [place] PT Coag (PPP) [Time] 10.4 s Normal 9.7-13.0 [facility] Comment on above: Order Comment: Yaya story Type: BLOOD SPECIMENOrdering Facility: [facility] Address: [address] [place] [address] Performed By: #### 3 4528-0, 57033-6 ####[facility] LABCLIA [id number] [place] [address] [place] URIC ACIDon 05-26-2024 Urate [Mass/Vol] 3.3 mg/dL 2.5 - 6.6 mg/dL [facility] Urate SerPl-mCncon Urate [Mass/Vol] 3.3 mg/dL Normal 2.5-6.6 [facility] Comment on above: Order Comment: Speci men Type: BLOOD SPECIMENOrdering Facility: [facility] Address: [address] [place] [address] Performed By: #### 1 988-5, 28667-0, 61394-2, 3084-1 ####[facility] LABCLIA [id number] [place] [address] [place] VITAMIN Con 05-26-2024 VITAMIN C 37 umol/L Normal 23-114 [facility] Comment on above: Order Comment: Speci men Type: BLOOD SPECIMENOrdering Facility: [facility] Address: [address] [place] [address] Result Comment: Paola min C concentrations lower than 11 umol/L indicate deficiency. Concentrations between 11 and 23 umol/L are consistent with a moderate risk of deficiency due to inadequate tissue stores. Vitamin C concentration is reported as micromoles per liter (umol/L). To convert concentration to milligrams per deciliter (mg/dL), multiply the result by 0.0176. This test was developed and its performance characteristics determined by [employer]. It has not been cleared or approved by the US Food and Drug Administration. This test was performed in a CLIA certified laboratory and is intended for clinical purposes. Performed By: [employer] [address] [place] [address] Child Protective Services Social Worker: Tylor Brown MD, PhD CLIA Number: [id number] Performed By: #### V ITC ####[facility] [id number] [place] [address] VITAMIN D 25 HYDROXYon 05-26 25-hydroxyvitamin D3 [Mass/Vol] 59.7 ng/mL 31.0 - 80.0 ng/mL [facility] Comment on above: Classification of 25 [place] Vitamin D status: Deficiency/Insufficiency: < or = 30 ng/ml. Sufficiency/Optimal Levels: 31-80 ng/mL Toxicity: > 100 ng/mL. Test performed by chemiluminescent immunoassay. aPTT Coag (PPP) [Time]on Interpretation and review of laboratory results Abnormal [facility] Unfractionated Hepar in Therapeutic Ranges: Standard Heparin Nomogram: 53 to 78 seconds (anti-Xa level of 0.3 to 0.7 U/ml) Low Dose/ACS Nomogram: 49 to 67 seconds (anti-Xa level of 0.2 to 0.5 U/ml) Stroke Treatment Nomogram: 49 to 67 seconds (anti-Xa level of 0.2 to 0.5 U/ml) Note: The APTT therapeutic range has been determined for the current lot of laboratory APTT reagent in use throughout the [facility]. [facility] aPTT PPPon 05-26-2024 aPTT Coag (PPP) [Time] 22.4 s Low 23.0-32.4 [facility] Comment on above: Order Comment: Speci men Type: BLOOD SPECIMENOrdering Facility: [facility] Address: [address] [place] [address] Performed By: #### 3 4528-0, 45540-7 ####[facility] LABCLIA [id number] [place] [address] [place] 12 Lead EKGon 05-09-2024 12 Lead EKG Normal [facility] Absolute lymphocyte countOrd ered By: Carlo Ruff on 05-09-2024 Lymphocytes Auto (Unsp spec) [#/Vol] 0.65 10*3/uL Low 0.83-4.51 [facility] Absolute neutrophil countOrd ered By: Carlo Ruff on 05-09-2024 Neutrophils (Bld) [#/Vol] 8.6 10*3/uL High 2.0-7.7 [facility] Automated lymphocyte count a s percentage of total leukocytesOrdered By: Carlo Ruff on 05-09-2024 Lymphocytes/100 WBC Auto (Unsp spec) 6.5 % Low 19-41 [facility] BUN/creatinine ratioOrdered By: Carlo Ruff on 05-09-2024 Urea nitrogen/Creatinine [Mass ratio] 24.7 mg/mg High 10-20 [facility] Basic Metabolic Profile (BMP )on 05-09-2024 Anion gap [Moles/Vol] 13 mmol/L Normal 5-15 [facility] Comment on above: Performed By: #### L 100.0100, L500.2500 ####[facility] [address] [place], [address] BUN/CRE 24.7 RATIO High 10-20 [facility] Comment on above: Performed By: #### L 100.0100, L500.2500 ####[facility] [address] [place], [address] Calcium [Mass/Vol] 9.4 mg/dL Normal 7.6-11.0 [facility] [place] Comment on above: Performed By: #### L 100.0100, L500.2500 ####[facility] [address] [place], [address] Chloride [Moles/Vol] 104 mmol/L Normal 96-108 [facility] Comment on above: Performed By: #### L 100.0100, L500.2500 ####[facility] [address] [place], [address] CO2 [Moles/Vol] 23.8 mmol/L Normal 22.0-29.0 [facility] Comment on above: Performed By: #### L 100.0100, L500.2500 ####[facility] [address] [place], [address] Creatinine [Mass/Vol] 1.04 mg/dL Normal 0.70-1.20 [facility] Comment on above: Performed By: #### L 100.0100, L500.2500 ####[facility] [address] [place], [address] ECRCL 57.20 ml/min Normal 50-250 [facility] Comment on above: Performed By: #### L 100.0100, L500.2500 ####[facility] [address] [place], [address] GFR/1.73 sq M.predicted among non-blacks MDRD (S/P/Bld) [Vol rate/Area] 60 mL/min/{1.73_m2} Normal >60 [facility] Comment on above: Result Comment: mL/m in/1.73m2 CKD-EPI Creatinine Equation (2020) Performed By: #### L 100.0100, L500.2500 ####[facility] [address] [place], [address] Glucose [Mass/Vol] 195 mg/dL High 70-99 [facility] [place] Comment on above: Performed By: #### L 100.0100, L500.2500 ####[facility] [address] [place], [address] Potassium [Moles/Vol] 4.2 mmol/L Normal 3.3-5.1 [facility] Comment on above: Performed By: #### L 100.0100, L500.2500 ####[facility] [address] [place], [address] Sodium [Moles/Vol] 141 mmol/L Normal 133-145 [facility] [place] Comment on above: Performed By: #### L 100.0100, L500.2500 ####[facility] [address] [place], [address] Urea nitrogen [Mass/Vol] 26 mg/dL High 4-19 [facility] Comment on above: Performed By: #### L 100.0100, L500.2500 ####[facility] [address] [place], [address] Basophil percentageOrdered B y: Carlo Ruff on 05-09-2024 Basophils/100 WBC (Bld) 0.4 % 0-[address] [facility] CBC W/Diff, Automatedon Absolute Lymph 0.65 X10 3/uL Low 0.83-4.51 [facility] Comment on above: Performed By: #### L 100.0100, L500.2500 ####[facility] [address] [place], [address] Absolute Neut 8.6 X10 3/uL High 2.0-7.7 [facility] Comment on above: Performed By: #### L 100.0100, L500.2500 ####[facility] [address] [place], [address] Basophils/100 WBC (Bld) 0.4 % Normal 0-[address] [facility] Comment on above: Performed By: #### L 100.0100, L500.2500 ####[facility] [address] [place], [address] Eosinophils/100 WBC (Bld) 0.1 % Normal 0-5 [facility] Comment on above: Performed By: #### L 100.0100, L500.2500 ####[facility] [address] [place], [address] Erythrocyte distribution width (RBC) [Ratio] 13.5 % Normal 11.6-14.6 [facility] Comment on above: Performed By: #### L 100.0100, L500.2500 ####[facility] [address] [place], [address] Hematocrit (Bld) [Volume fraction] 43.1 % Normal 37-47 [facility] Comment on above: Performed By: #### L 100.0100, L500.2500 ####[facility] [address] [place], [address] Hemoglobin (Bld) [Mass/Vol] 14.0 g/dL Normal 12.0-15.0 [facility] Comment on above: Performed By: #### L 100.0100, L500.2500 ####[facility] [address] [place], [address] IG% 0.500 Normal 0.0-0.9 [facility] Comment on above: Result Comment: IG% - Immature Granulocytes (promyelocytes, myelocytes andmetamyelocytes) > 1% indicates that a LEFT SHIFT is Present. Performed By: #### L 100.0100, L500.2500 ####[facility] [address] [place], [address] Lymphocytes/100 WBC (Bld) 6.5 % Low 19-41 [facility] Comment on above: Performed By: #### L 100.0100, L500.2500 ####[facility] [address] [place], [address] MCH (RBC) [Entitic mass] 30.4 pg Normal 27.0-32.0 [facility] Comment on above: Performed By: #### L 100.0100, L500.2500 ####[facility] [address] [place], [address] MCHC (RBC) [Mass/Vol] 32.5 g/dL Normal 32-36 [facility] Comment on above: Performed By: #### L 100.0100, L500.2500 ####[facility] [address] [place], [address] MCV (RBC) [Entitic vol] 93.7 fL Normal 81-99 [facility] Comment on above: Performed By: #### L 100.0100, L500.2500 ####[facility] [address] [place], [address] Monocytes/100 WBC (Bld) 6.4 % Normal 0-[address] [facility] Comment on above: Performed By: #### L 100.0100, L500.2500 ####[facility] [address] [place], [address] Neutrophils/100 WBC (Bld) 86.1 % High 47-70 [facility] Comment on above: Performed By: #### L 100.0100, L500.2500 ####[facility] [address] [place], [address] Nucleated RBC (Bld) [#/Vol] 0 10*3/uL Normal 0-5 [facility] Comment on above: Performed By: #### L 100.0100, L500.2500 ####[facility] [address] [place], [address] Platelet mean volume (Bld) [Entitic vol] 9.4 fL Normal 6.2-12.0 [facility] Comment on above: Performed By: #### L 100.0100, L500.2500 ####[facility] [address] [place], [address] Platelets (Bld) [#/Vol] 139 10*3/uL Low 150-450 [facility] Comment on above: Performed By: #### L 100.0100, L500.2500 ####[facility] [address] [place], [address] RBC (Bld) [#/Vol] 4.60 10*6/uL Normal 4.2-5.4 [facility] Comment on above: Performed By: #### L 100.0100, L500.2500 ####[facility] [address] [place], [address] RDW SD 45.9 fl High 35.1-43.9 [facility] Comment on above: Performed By: #### L 100.0100, L500.2500 ####[facility] [address] [place], [address] WBC (Bld) [#/Vol] 10.0 10*3/uL Normal 4.4-11.0 [facility] Comment on above: Performed By: #### L 100.0100, L500.2500 ####[facility] [address] [place], [address] Carbon dioxide measurementOr dered By: Carlo Ruff on 05-09-2024 CO2 [Moles/Vol] 23.8 mmol/L 22.0-29.0 [facility] Chest 1 View (Portable)on Chest 1 View (Portable) Normal [facility] Chloride measurementOrdered By: Carlo Ruff on 05-09-2024 Chloride [Moles/Vol] 104 mmol/L 96-108 [facility] Emergency Department Summary on 05-09-2024 Emergency Department Summary Normal [facility] Eosinophil percentageOrdered By: Carlo Ruff on 05-09-2024 Eosinophils/100 WBC (Bld) 0.1 % 0-5 [facility] Erythrocyte distribution wid th (RBC) [Ratio]Ordered By: Carlo Ruff on 05-09-2024 Erythrocyte distribution width (RBC) [Entitic vol] 45.9 fL High 35.1-43.9 [facility] Erythrocyte distribution wid th ratioOrdered By: Carlo Ruff on 05-09-2024 Erythrocyte distribution width (RBC) [Ratio] 13.5 % 11.6-14.6 [facility] Erythrocyte distribution wid th standard deviationOrdered By: Carlo Ruff on 05-09-2024 Erythrocyte distribution width (RBC) [Ratio] 45.9 fl High 35.1-43.9 [facility] Estimation of creatinine rashida aranceOrdered By: Carlo Ruff on 05-09-2024 Estimated Creatinine Clearance Calc 57.20 ml/min 50-250 [facility] GFR/1.73 sq M.predicted jessie g non-blacks MDRD (S/P/Bld) [Vol rate/Area]Ordered By: Carlo Ruff on 05-09-2024 Estimated GFR (MDRD) Non-Af Amer 60 >60 [facility] Comment on above: mL/min/1.73m2 CKD-EP I Creatinine Equation (2020) Glomerular filtration rate ( GFR) estimation/1.73 sq m using serum, plasma, or whole bOrdered By: Carlo Ruff on 05-09-2024 GFR/1.73 sq M.predicted among non-blacks MDRD (S/P/Bld) [Vol rate/Area] 60 mL/min/{1.73_m2} >60 [facility] Comment on above: mL/min/1.73m2 CKD-EP I Creatinine Equation (2020) Hematocrit Auto (Bld) [Volum e fraction]Ordered By: Carlo Ruff on 05-09-2024 Hematocrit (Bld) [Volume fraction] 43.1 % 37-47 [facility] Hemoglobin measurementOrdere d By: Carlo Ruff on 05-09-2024 Hemoglobin (Bld) [Mass/Vol] 14.0 g/dL 12.0-15.0 [facility] Immature granulocytes/100 WB C Auto (Bld)Ordered By: Carlo Ruff on 05-09-2024 Immature granulocytes/100 WBC (Bld) 0.500 % 0.0-0.9 [facility] Comment on above: IG% - Immature Granu locytes (promyelocytes, myelocytes and metamyelocytes) > 1% indicates that a LEFT SHIFT is Present. Influenza virus A and B and SARS-CoV-2 (COVID-19) and Respiratory syncytial virus RNAOrdered By: Carlo Ruff on 05-09-2024 SARS-CoV-2 (COVID-19) RNA RON+probe Ql (Unsp spec) [facility] L499.0042on 05-09-2024 Trop T Delta 1 Normal [facility] Comment on above: Result Comment: If c linical suspicion for ACS is high, suggest getting athird troponin. Otherwise, stress test or CTCA. Performed By: #### L 499.0042 ####[facility] [id number] [place], [address] Trop T High Sen 25 ng/L High <=14 [facility] Comment on above: Performed By: #### L 499.0042 ####[facility] [id number] [place], [address] L501.4021on 05-09-2024 Trop T High Sen 26 ng/L High <=14 [facility] Comment on above: Performed By: #### L 501.4021, L503.7505 ####[facility] [address] [place], [address] L503.7505on 05-09-2024 Natriuretic peptide B (Bld) [Mass/Vol] 126 pg/mL Normal <=900 [facility] Comment on above: Result Comment: Hear t Failure Unlikely: < 300 pg/mLHeart Failure Likely< 50 Years: > 450 pg/mL50-75 Years: > 900 pg/mL>75 Years: > 1800 pg/mL Performed By: #### L 501.4021, L503.7505 ####[facility] [id number] [place], [place], [address] Laboratory - Chemistry and C hemistry - challengeOrdered By: Carlo Ruff on 05-09-2024 Natriuretic peptide B (Bld) [Mass/Vol] 126 pg/mL <900 [facility] Comment on above: Heart Failure Unlike ly: < 300 pg/mLHeart Failure Likely< 50 Years: > 450 pg/mL50-75 Years: > 900 pg/mL>75 Years: > 1800 pg/mL Lymphocytes Auto (Unsp spec) [#/Vol]Ordered By: Carlo Ruff on 05-09-2024 Lymphocytes (Bld) [#/Vol] 0.65 10*3/uL Low 0.83-4.51 [facility] Lymphocytes/100 WBC Auto (Un sp spec)Ordered By: Carlo Ruff on 05-09-2024 Lymphocytes/100 WBC (Bld) 6.5 % Low 19-41 [facility] M100.678on 05-09-2024 M100.678 Pending SARS-CoV-2 (COVID 19) Negative INFLUENZA A Negative INFLUENZA B Negative RSV PCR Negative Normal [facility] Comment on above: Performed By: #### M 100.200 ####[facility] [address] [place], [address] MCV (mean corpuscular volume ) determinationOrdered By: Carlo Ruff on 05-09-2024 MCV (RBC) [Entitic vol] 93.7 fL 81-[address] [facility] Mean corpuscular hemoglobin (MCH) determinationOrdered By: Carlo Ruff on 05-09-2024 MCH (RBC) [Entitic mass] 30.4 pg 27.0-32.0 [facility] Mean corpuscular hemoglobin concentration (MCHC) determinationOrdered By: Carlo Ruff on 05-09-2024 MCHC (RBC) [Mass/Vol] 32.5 g/dL 32-36 [facility] Mean platelet volume determi nationOrdered By: Carlo Ruff on 05-09-2024 Platelet mean volume (Bld) [Entitic vol] 9.4 fL 6.2-12.0 [facility] Monocyte percentageOrdered B y: Carlo Ruff on 05-09-2024 Monocytes/100 WBC (Bld) 6.4 % 0-[address] [facility] Neutrophil percentageOrdered By: Carlo Ruff on 05-09-2024 Neutrophils/100 WBC (Bld) 86.1 % High 47-70 [facility] No Panel InformationOrdered By: Carlo Ruff on 05-09-2024 Troponin T Hi Sensitivity 2Hr Delta 1 [facility] Comment on above: If clinical suspicio n for ACS is high, suggest getting a third troponin. Otherwise, stress test or CTCA. 1 [facility] Troponin T High Sensitivity 26 ng/L High <14 [facility] 26 ng/L High <14 [facility] 126 pg/mL <900 [facility] Nucleated red blood cell per centageOrdered By: Carlo Ruff on 05-09-2024 Nucleated RBC/100 WBC (Bld) [Ratio] 0 % 0-5 [facility] Platelet countOrdered By: Opal Ruff on 05-09-2024 Platelets (Bld) [#/Vol] 139 10*3/uL Low 150-450 [facility] RBC Auto (Bld) [#/Vol]Ordere d By: Carlo Ruff on 05-09-2024 RBC (Bld) [#/Vol] 4.60 10*6/uL 4.2-5.4 [facility] Serum creatinine measurement (mass/volume)Ordered By: Carlo Ruff on 05-09-2024 Creatinine [Mass/Vol] 1.04 mg/dL 0.70-1.20 [facility] Serum glucose measurement (m ass/volume)Ordered By: Carlo Ruff on 05-09-2024 Glucose [Mass/Vol] 195 mg/dL High 70-99 [facility] Serum or plasma anion gap de termination (moles/volume)Ordered By: Carlo Ruff on 05-09-2024 Anion gap [Moles/Vol] 13 mmol/L 5-15 [facility] Serum or plasma calcium israel urement (mass/volume)Ordered By: Carlo Ruff on 05-09-2024 Calcium [Mass/Vol] 9.4 mg/dL 7.6-11.0 [facility] Serum or plasma potassium me asurementOrdered By: Carlo Ruff on 05-09-2024 Potassium [Moles/Vol] 4.2 mmol/L 3.3-5.1 [facility] Serum or plasma sodium measu rement (moles/volume)Ordered By: Carlo Ruff on 05-09-2024 Sodium [Moles/Vol] 141 mmol/L 133-145 [facility] Serum or plasma urea nitroge n measurement (mass/volume)Ordered By: Carlo Ruff on 05-09-2024 Urea nitrogen [Mass/Vol] 26 mg/dL High 4-19 [facility] Troponin T.cardiac High sens itivity method [Mass/Vol]Ordered By: Carlo Ruff on 05-09-2024 Troponin T High Sensitivity 2 Hour 25 ng/L High <14 [facility] Troponin T.cardiac [Mass/vol ume] in Serum or Plasma by High sensitivity methodOrdered By: Carlo Ruff on 05-09-2024 Troponin T.cardiac High sensitivity method [Mass/Vol] 25 ng/L High <14 [facility] White blood cell (WBC) count Ordered By: Carlo Ruff on 05-09-2024 WBC (Bld) [#/Vol] 10.0 10*3/uL 4.4-11.0 [facility] CBC W Auto Differential pane l (Bld)on 04-08-2024 Basophils (Bld) [#/Vol] 0.05 10*3/uL Normal <0.11 [facility] Comment on above: Order Comment: Speci men Type: BLOOD SPECIMENOrdering Facility: [facility] Address: [address] [place] [address] Performed By: #### 5 7021-8 ####[facility] MILLTOWNCLIA [id number] [place] [address] [place] Basophils/100 WBC (Bld) 0.4 % Normal [facility] Comment on above: Order Comment: Speci men Type: BLOOD SPECIMENOrdering Facility: [facility] Address: [address] [place] [address] Performed By: #### 5 7021-8 ####[facility] [id number] [place] [address] [place] Differential cell count method Nom (Bld) Auto Normal [facility] Comment on above: Order Comment: Speci men Type: BLOOD SPECIMENOrdering Facility: [facility] Address: [address] [place] [address] Performed By: #### 5 7021-8 ####[facility] MILLTOWNCLIA [id number] [place] [address] [place] Eosinophils (Bld) [#/Vol] 10*3/uL Normal <0.46 [facility] Comment on above: Order Comment: Speci men Type: BLOOD SPECIMENOrdering Facility: [facility] Address: [address] [place] [address] Performed By: #### 5 7021-8 ####[facility] [facility] [id number] [place] [address] [place] Eosinophils/100 WBC (Bld) 0.1 % Normal [facility] Comment on above: Order Comment: Speci men Type: BLOOD SPECIMENOrdering Facility: [facility] Address: [address] [place] [address] Performed By: #### 5 7021-8 ####[facility] [id number] [place] [address] [place] Erythrocyte distribution width (RBC) [Ratio] 13.1 % Normal 11.5-15.0 [facility] Comment on above: Order Comment: Speci men Type: BLOOD SPECIMENOrdering Facility: [facility] Address: [address] [place] [address] Performed By: #### 5 7021-8 ####[facility] [id number] [place] [address] [place] Hematocrit (Bld) [Volume fraction] 44.0 % Normal 36.0-46.0 [facility] Comment on above: Order Comment: Speci men Type: BLOOD SPECIMENOrdering Facility: [facility] Address: [address] [place] [address] Performed By: #### 5 7021-8 ####[facility] [id number] [place] [address] [place] Hemoglobin (Bld) [Mass/Vol] 14.4 g/dL Normal 11.5-15.5 [facility] Comment on above: Order Comment: Speci men Type: BLOOD SPECIMENOrdering Facility: [facility] Address: [address] [place] [address] Performed By: #### 5 7021-8 ####[facility]ITAL[facility]CLI [id number] [place] [address] [place] Immature granulocytes (Bld) [#/Vol] 0.37 10*3/uL High <0.10 [facility] Comment on above: Order Comment: Speci men Type: BLOOD SPECIMENOrdering Facility: [facility] Address: [address] [place] [address] Performed By: #### 5 7021-8 ####[facility] [id number] [place] [address] [place] Immature granulocytes/100 WBC (Bld) 2.8 % Normal [facility] Comment on above: Order Comment: Speci men Type: BLOOD SPECIMENOrdering Facility: [facility] Address: [address] [place] [address] Performed By: #### 5 7021-8 ####[facility] [id number] [place] [address] [place] Lymphocytes (Bld) [#/Vol] 0.97 10*3/uL Low 1.00-4.00 [facility] Comment on above: Order Comment: Speci men Type: BLOOD SPECIMENOrdering Facility: [facility] Address: [address] [place] [address] Performed By: #### 5 7021-8 ####[facility] [id number] [place] [address] [place] Lymphocytes/100 WBC (Bld) 7.2 % Normal [facility] Comment on above: Order Comment: Speci men Type: BLOOD SPECIMENOrdering Facility: [facility] Address: [address] [place] [address] Performed By: #### 5 7021-8 ####[facility] [id number] [place] [address] [place] MCH (RBC) [Entitic mass] 30.6 pg Normal 26.0-34.0 [facility] Comment on above: Order Comment: Speci men Type: BLOOD SPECIMENOrdering Facility: [facility] Address: [address] [place] [address] Performed By: #### 5 7021-8 ####[facility] JCNCLIA [id number] [place] [address] [place] MCHC (RBC) [Mass/Vol] 32.7 g/dL Normal 30.5-36.0 [facility] Comment on above: Order Comment: Speci men Type: BLOOD SPECIMENOrdering Facility: [facility] Address: [address] [place] [address] Performed By: #### 5 7021-8 ####[facility] JUANISMINDENNCLIA [id number] [place] [address] [place] MCV (RBC) [Entitic vol] 93.6 fL Normal 80.0-100.0 [facility] Comment on above: Order Comment: Speci men Type: BLOOD SPECIMENOrdering Facility: [facility] Address: [address] [place] [address] Performed By: #### 5 7021-8 ####[facility]ITALNCLIA [id number] [place] [address] [place] Monocytes (Bld) [#/Vol] 0.69 10*3/uL Normal <0.87 [facility] Comment on above: Order Comment: Speci men Type: BLOOD SPECIMENOrdering Facility: [facility] Address: [address] [place] [address] Performed By: #### 5 7021-8 ####[facility] JUANISMINDENNCLIA [id number] [place] [address] [place] Monocytes/100 WBC (Bld) 5.1 % Normal [facility] Comment on above: Order Comment: Speci men Type: BLOOD SPECIMENOrdering Facility: [facility] Address: [address] [place] [address] Performed By: #### 5 7021-8 ####[facility]ITALNCLIA [id number] [place] [address] [place] Neutrophils (Bld) [#/Vol] 11.34 10*3/uL High 1.45-7.50 [facility] Comment on above: Order Comment: Speci men Type: BLOOD SPECIMENOrdering Facility: [facility] Address: [address] [place] [address] Performed By: #### 5 7021-8 ####[facility] [id number] [place] [address] [place] Neutrophils/100 WBC (Bld) 84.4 % Normal [facility] Comment on above: Order Comment: Speci men Type: BLOOD SPECIMENOrdering Facility: [facility] Address: [address] [place] [address] Performed By: #### 5 7021-8 ####[facility] [id number] [place] [address] [place] Nucleated RBC (Bld) [#/Vol] 10*3/uL Normal <0.01 [facility] Comment on above: Order Comment: Speci men Type: BLOOD SPECIMENOrdering Facility: [facility] Address: [address] [place] [address] Performed By: #### 5 7021-8 ####[facility] [id number] [place] [address] [place] Nucleated RBC/100 WBC (Bld) [Ratio] 0.0 /100 WBC Normal [facility] Comment on above: Order Comment: Speci men Type: BLOOD SPECIMENOrdering Facility: [facility] Address: [address] [place] [address] Performed By: #### 5 7021-8 ####[facility] [id number] [place] [address] [place] Platelet mean volume (Bld) [Entitic vol] 9.6 fL Normal 9.0-12.7 [facility] Comment on above: Order Comment: Speci men Type: BLOOD SPECIMENOrdering Facility: [facility] Address: [address] [place] [address] Performed By: #### 5 7021-8 ####[facility] HOSPITALNCA [id number] [place] [address] [place] Platelets (Bld) [#/Vol] 209 10*3/uL Normal 150-400 [facility] Comment on above: Order Comment: Speci men Type: BLOOD SPECIMENOrdering Facility: [facility] Address: [address] [place] [address] Performed By: #### 5 7021-8 ####[facility]ITALNCSTEWARD [facility] [id number] [place] [address] [place] RBC (Bld) [#/Vol] 4.70 10*6/uL Normal 3.90-5.20 [facility] Comment on above: Order Comment: Speci men Type: BLOOD SPECIMENOrdering Facility: [facility] Address: [address] [place] [address] Performed By: #### 5 7021-8 ####[facility] HOSPITALNCA [id number] [place] [address] [place] WBC (Bld) [#/Vol] 13.43 10*3/uL High 3.70-11.00 [facility] Comment on above: Order Comment: Speci men Type: BLOOD SPECIMENOrdering Facility: [facility] Address: [address] [place] [address] Performed By: #### 5 7021-8 ####[facility]ITALNCLIA [id number] [place] [address] [place] CRP SerPl-mCncon 04-08-2024 CRP [Mass/Vol] 0.3 mg/dL Normal <0.9 [facility] Comment on above: Order Comment: Speci men Type: BLOOD SPECIMENOrdering Facility: [facility] Address: [address] [id number] Performed By: #### 1 988-5 ####[facility] LABCLIA [id number] [address] [place] [address] [place] Comprehensive metabolic 2000 panelon 04-08-2024 Albumin [Mass/Vol] 4.0 g/dL Normal 3.9-4.9 [facility] Comment on above: Order Comment: Speci men Type: BLOOD SPECIMENOrdering Facility: [facility] Address: [address] [place] [address] Performed By: #### 2 4323-8 ####[facility]ITALNCLIA [id number] [place] [address] [place] ALP [Catalytic activity/Vol] 88 U/L Normal 34-123 [facility] Comment on above: Order Comment: Speci men Type: BLOOD SPECIMENOrdering Facility: [facility] Address: [address] [place] [address] Performed By: #### 2 4323-8 ####[facility]ITALA [id number] [place] [address] [place] ALT [Catalytic activity/Vol] 45 U/L High 7-38 [facility] Comment on above: Order Comment: Speci men Type: BLOOD SPECIMENOrdering Facility: [facility] Address: [address] [place] [address] Performed By: #### 2 4323-8 ####[facility]ITALLIA [id number] [place] [address] [place] Anion gap [Moles/Vol] 12 mmol/L Normal 8-15 [facility] Comment on above: Order Comment: Speci men Type: BLOOD SPECIMENOrdering Facility: [facility] Address: [address] [place] [address] Performed By: #### 2 4323-8 ####[facility] ARIELA MILLTOWNCLIA [id number] [place] [address] [place] AST [Catalytic activity/Vol] 31 U/L Normal 13-35 [facility] Comment on above: Order Comment: Speci men Type: BLOOD SPECIMENOrdering Facility: [facility] Address: [address] [place] [address] Performed By: #### 2 4323-8 ####[facility] MILLTOWNCLIA [id number] [place] [address] [place] Bilirubin [Mass/Vol] 0.4 mg/dL Normal 0.2-1.3 [facility] Comment on above: Order Comment: Speci men Type: BLOOD SPECIMENOrdering Facility: [facility] Address: [address] [place] [address] Performed By: #### 2 4323-8 ####[facility]NCLIA [id number] [place] [address] [place] Calcium [Mass/Vol] 9.9 mg/dL Normal 8.5-10.2 [facility] Comment on above: Order Comment: Speci men Type: BLOOD SPECIMENOrdering Facility: [facility] Address: [address] [place] [address] Performed By: #### 2 4323-8 ####[facility] MILLTOWNCLIA [id number] [place] [address] [place] Chloride [Moles/Vol] 104 mmol/L Normal 98-107 [facility] Comment on above: Order Comment: Speci men Type: BLOOD SPECIMENOrdering Facility: [facility] Address: [address] [place] [address] Performed By: #### 2 4323-8 ####[facility] MILLTOWNCLIA [id number] [place] [address] [place] CO2 [Moles/Vol] 28 mmol/L Normal 22-30 [facility] Comment on above: Order Comment: Speci men Type: BLOOD SPECIMENOrdering Facility: [facility] Address: [address] [place] [address] Performed By: #### 2 4323-8 ####[facility] [id number] [place] [address] [place] Creatinine [Mass/Vol] 1.11 mg/dL High 0.58-0.96 [facility] Comment on above: Order Comment: Speci men Type: BLOOD SPECIMENOrdering Facility: [facility] Address: [address] [place] [address] Performed By: #### 2 4323-8 ####[facility] [id number] [place] [address] [place] Creatinine and Glomerular filtration rate.predicted panel (S/P/Bld) 55 mL/min/1.73m??? Low >=60 [facility] Comment on above: Order Comment: Speci men Type: BLOOD SPECIMENOrdering Facility: [facility] Address: [address] [place] [address] Result Comment: Aileen mated Glomerular Filtration Rate (eGFR) is calculated using the 2020 CKD-EPI creatinine equation. This equation utilizes serum creatinine, sex, and age as parameters. The creatinine assay has traceable calibration to isotope dilution-mass spectrometry. Refer to KDIGO guidelines for clinical interpretation. In patients with unstable renal function, e.g. those with acute kidney injury, the eGFR may not accurately reflect actual GFR. Performed By: #### 2 4323-8 ####[facility] [id number] [place] [address] [place] Glucose [Mass/Vol] 136 mg/dL High 74-99 [facility] Comment on above: Order Comment: Speci men Type: BLOOD SPECIMENOrdering Facility: [facility] Address: [address], [place] [address] Result Comment: The [place] Diabetes Association (ADA) provides guidance for cutoff values for fasting glucose and random glucose. The ADA defines fasting as no caloric intake for at least 8 hours. Fasting plasma glucose results between 100 to 125 mg/dL indicate increased risk for diabetes (prediabetes). Fasting plasma glucose results greater than or equal to 126 mg/dL meet the criteria for diagnosis of diabetes. In the absence of unequivocal hyperglycemia, results should be confirmed by repeat testing. In a patient with classic symptoms of hyperglycemia or hyperglycemic crisis, random plasma glucose results greater than or equal to 200 mg/dL meet the criteria for diagnosis of diabetes. Reference: Standards of Medical Care in Diabetes 2016, [place] [employer] Association. Diabetes Care. 2016.39(Suppl 1). Performed By: #### 2 4323-8 ####[facility] [id number] [place] [address] [place] Potassium [Moles/Vol] 3.9 mmol/L Normal 3.7-5.1 [facility] Comment on above: Order Comment: Speci men Type: BLOOD SPECIMENOrdering Facility: [facility] Address: [address] [place] [address] Performed By: #### 2 4323-8 ####[facility] [id number] [place] [address] [place] Protein [Mass/Vol] 6.4 g/dL Normal 6.3-8.0 [facility] Comment on above: Order Comment: Speci men Type: BLOOD SPECIMENOrdering Facility: [facility] Address: [address] [place], [place] [address] Performed By: #### 2 4323-8 ####[facility] [id number] [place] [address] [place] Sodium [Moles/Vol] 144 mmol/L Normal 136-144 [facility] Comment on above: Order Comment: Speci men Type: BLOOD SPECIMENOrdering Facility: [facility] Address: [address] [place] [address] Performed By: #### 2 4323-8 ####[facility]ITALNCSTEW[facility] [id number] [place] [address] [place] Urea nitrogen [Mass/Vol] 31 mg/dL High 7-21 [facility] Comment on above: Order Comment: Speci men Type: BLOOD SPECIMENOrdering Facility: [facility] Address: [address] [place] [address] Performed By: #### 2 4323-8 ####[facility] [id number] [place] [address] [place] ESR Westergren method (Bld) [Velocity]on 04-08-2024 ESR (Bld) [Velocity] 2 mm/h Normal 0-20 [facility] Comment on above: Order Comment: Speci men Type: BLOOD SPECIMENOrdering Facility: [facility] Address: [address] [place] [address] Performed By: #### 4 537-7 ####[facility] LABCLIA [id number] [facility] [id number] [place] CNOVon 04-07-2024 CNOV Office Visit (RHEUMN ) SAVANNAH AGUIRRE ([id number]) 1960 F Date Time Provider Department 04/07/24 10:00 AM CHRIS CODY During your visit today, we recorded the following information about you: Temperature Pulse Blood pressure Weight 97.4 degrees 55/minute 146/69 88.7 kg Height 1.6 m Chris Cody MD 04/07/2024 2:01 PM Signed [facility] Date of Service: 04/07/2024 Patient: Savannah Aguirre Medical Record: [id number] Primary Care Physician: Shahab Adams DO Last Rheumatology visit: 01/01/2024 (with Chris Cody) History of Present Illness Savannah Aguirre is a 63 year old White female who presents on 04/07/2024 for in person visit for evaluation of Rheumatoid Arthritis. She is currently taking adalimumab, prednisone. Savannah is both RF - 9 (11/21/2022) and CCP - 13.5 (11/21/2022) negative. Her most recent CHASIDY was negative (01/16/2023). HISTORY OF PRESENT ILLNESS Patient scheduled to see me today for arthritis. 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 8-10 years dx'ed with RA but blood test and pain- hips, shoulders, feet. Patient has CRI, she used Methotrexate for one week and stopped. Treatment has included low dose predisone forever. Plaquenil Tried Enbrel about 2 years ago- states not sure if this helped. Stopped the [facility] as [facility]. [facility] for a few years , she is not quite sure when last injection was, maybe 9-12 months ago. Not sure if the Orencia was helping Current medications: Plaquenil 200 mg BID- goes every 6 months to opthal. Past Medical History: - Chronic kidney disease stage III (2/2 chronic NSAID use) - Pain management Past Surgical History: - Tonsillectomy - Hysterectomy - Thyroid partial - Carpal tunnel release b/l - Spinal cord stimulator placement and removal Family History: - mother had some sort of pain issues (fibromyalgia) - grandmother - maybe osteoarthritis Social History: - Never smoker - Rare alcohol use - No other drugs Seen pain management- she is on norco 2-4 pill per day, gabapentin 3 times per day. + chronic back pain, had past spinal cord stimulator that had to be removed body rejected it' No prior surgery on her joints. Joints are not good. Describes dull tenderness- wrists, back, ankles, feet. She is getting swelling of her joints. She has some nodules of wrist and hand. Likes to sew, crafting, not on regular exercise regime, ADL's Has also been diagnosed Fibromyalgia, maybe on antidepressant but made me more depressed. Sleep is poor. Takes naps during the day. 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 INTERVAL HISTORY The wendy has been making her sick to her stomach. Bad abdominal cramps, diarrhea, headaches. She has since tapered off. She saw the social media executive today who saw some early signs of HCQ toxicity. She has increased the frequency of humira to every week. She does feel that there have been improvements in her swelling in the joints. She is still on prednisone 15 mg daily prednisone. She currently takes gabapentin 400 mg 2-3 times per day. She previously tried 600 mg TID, but this caused too much DEPUTY JAILER side effect. Cymbalta caused depression. Patient-Entered Data PROMIS Assessments 09/29/2023 12/30/2023 04/06/2024 PROMIS Global Health - (T-Scores - the mean of general population = 50. Five points is a clinically meaningful difference.) Physical T-Score 29.6 39.8 39.8 Mental T-Score 38.8 48.3 38.8 09/29/2023 12/30/2023 04/06/2024 PROMIS CAT Pain Interference PROMIS Pain Interference T-Score (range: 10 - 90) 72 (severe) 67 (moderate) 68 (moderate) PROMIS Pain Interference Percentile 1 4 4 PROMIS Adult Short Form-Global Health Score (Mental) 38.8 (Fair) 48.3 (Very Good) 38.8 (Fair) 09/29/2023 12/30/2023 04/06/2024 PROMIS CAT Fatigue PROMIS Fatigue T-Score 69 (moderate) 64 (moderate) 62 (moderate) PROMIS Fatigue Percentile 3 8 12 09/29/2023 12/30/2023 04/06/2024 PROMIS PHYSICAL FUNCTION T-SCORE PROMIS Physical Function T-Score 32 (moderate dysfunction) 31 (moderate dysfunction) 33 (moderate dysfunction) Physical Function Percentile 4 3 4 RAPID 3 Mel[facility] Activities of Daily Living 04/06/2024 11:40 PM 12/30/2023 8:34 PM 09/29/2023 10:14 PM First answer obtained - 11/18/2022 1:01 AM Dress self? With SOME difficulty With SOME difficulty With MUCH difficulty With SOME difficulty Get in and out of bed? With SOME difficulty With SOME difficulty With MUCH difficulty With SOME difficulty Walk outdoors? With SOME difficulty With SOME difficulty With MUCH difficulty With SOME difficulty Wash and dry body? With SOME dif (more content not included)... Normal [facility] OCT MACULA CIRRUS OU (BOTH E YES)on 04-07-2024 [facility] Radiology Study observation (narrative) [facility] VISUAL FIELD 10-2 OU (BOTH E YES)on 04-07-2024 [facility] Radiology Study observation (narrative) [facility] CNPNon 01-15-2024 CNPN Telephone (RHEUMN) SAVANNAH AGUIRRE ([id number]) 1960 F Date Time Provider Department 01/15/24 CHRIS CODY RHEUMN During your visit today, we recorded the following information about you: Anali Gates MA 01/15/2024 2:06 PM Signed Patient has been identified by name and date of : Yes . Patient calling for :general concern. Patient called stated she was trying to decrease her Prednisone to 10mg but is still having complications body stiffness and soreness so she went back up to her normal dose 15mg. Patient states this happens every time she goes below 15mg Pharmacy has been updated: Yes . Return call needed: Patient is expecting a call back. Can be reached at phone number listed below.. Patient can be reached at : [phone] Allergies As of Date: 01/15/2024 Noted Allergy Reaction PENICILLIN 04/10/2015 2 - Rash PERCOCET (OXYCODONE-ACETAMINOPHEN) 2 - Rash TETRACYCLINE 04/10/2015 2 - Rash TOCILIZUMAB 10/26/2023 2 - Rash Comments: Blistering rash on arms, legs, mouth Date Reviewed: 01/01/2024 Reviewed by: Radha Pradhan MA - Fully Assessed Reason for Visit: Patient Update [1234] Order(s):adalimumab (HUMIRA,CF, PEN) 40 mg/0.4 mL pen kitInject 40 mg subcutaneously one time a week.Disp: 4 EachRfl: 2 Prescriptions as of 01/18/2024 - Milnacipran (SAVELLA) 12.5 mg (5)-25 mg(8)-50 mg(42) DsPk 12.5 mg once daily on day 1, then 12.5 mg twice daily on days 2 to 3, 25 mg twice daily on days 4 to 7, then to usual dosage of 50 mg twice daily thereafter. - adalimumab (HUMIRA,CF, PEN) 40 mg/0.4 mL pen kit Inject 40 mg subcutaneously one time a week. - predniSONE (DELTASONE) 5 mg tablet Take 4 tablets by mouth once daily for 7 days, THEN 3.5 tablets once daily for 7 days, THEN 3 tablets once daily for 7 days, THEN 2.5 tablets once daily for 7 days, THEN 2 tablets once daily for 7 days, THEN 1.5 tablets once daily for 7 days, THEN 1 tablet once daily for 7 days, THEN 0.5 tablets once daily for 7 days. - allopurinol (ZYLOPRIM) 300 mg tablet Take 1 tablet by mouth once daily. - colchicine 0.6 mg tablet take 1 tablet by mouth twice a day - Omeprazole 40 mg capsule Take 40 mg by mouth twice daily. - levothyroxine (SYNTHROID) 100 mcg tablet Take 100 mcg by mouth once daily. - hydroxychloroquine (PLAQUENIL) 200 mg tablet Take by mouth twice daily. - metoprolol tartrate, short acting, (LOPRESSOR) 25 mg tablet Take 50 mg by mouth once daily. - triamterene-hydrochlorothia zide 37.5-25 mg per capsule Take 1 capsule by mouth once daily. - potassium chloride (K-SUNG, KLOR-CON) 20 mEq packet Take 20 mEq by mouth three times daily. - magnesium oxide 400 mg cap Take 400 mg by mouth twice daily. - gabapentin (NEURONTIN) 300 mg capsule Take 300 mg by mouth once daily. - HYDROcodone-acetaminophen (NORCO) 5-325 mg per tablet Take 1 tablet by mouth twice daily. - buprenorphine 15 mcg/hour ptwk Apply as directed. Problem List As Of Date 01/15/2024 Noted Resolved Nausea [R11.0] 05/03/2015 Essential hypertension [I10] 05/03/2015 Hypothyroidism [E03.9] 05/03/2015 Gastroesophageal reflux disease [K21.9] 05/03/2015 Fibromyalgia [M79.7] 05/03/2015 Osteoarthritis [M19.90] 05/03/2015 Prescriptions ordered this encounter Disp Refills Start End HUMIRA(CF) PEN 40 MG/0.4 ML SUBCUTAN* 4 Ea* 2 01/15/2024 04/14/2024 Route: SUBCUTANEOUS Sig: Inject 40 mg subcutaneously one time a week. Medications Discontinued During This Encounter Prescriptions - adalimumab (HUMIRA,CF, PEN) 40 mg/0.4 mL pen kit (Discontinued) Inject 1 pen (40 mg) subcutaneously every other week. Encounter Status:Closed by ANALI GATES on 01/18/24 [facility] CNOVon 01-01-2024 CNOV Office Visit (RHEUMN ) SAVANNAH AGUIRRE ([id number]) 1960 F Date Time Provider Department 01/01/24 10:40 AM CHRIS CODY During your visit today, we recorded the following information about you: Temperature Pulse Blood pressure Weight 96.8 degrees 51/minute 138/61 87 kg Chris Cody MD 01/07/2024 3:26 PM Addendum Rheumatology Clinic Date of Service: 01/01/2024 Patient: Savannah Aguirre Medical Record: [id number] Primary Care Physician: Shahab Adams DO Last Rheumatology visit: 01/01/2024 (with Chris Cody) History of Present Illness Savannah Aguirre is a 63 year old White female who presents on 01/01/2024 for in person visit for evaluation of Joint Pain and Rheumatoid Arthritis. She is currently taking adalimumab, prednisone. Savannah is both RF - 9 (11/21/2022) and CCP - 13.5 (11/21/2022) negative. Her most recent CHASIDY was negative (01/16/2023). HISTORY OF PRESENT ILLNESS Patient scheduled to see me today for arthritis. 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 8-10 years dx'ed with RA but blood test and pain- hips, shoulders, feet. Patient has CRI, she used Methotrexate for one week and stopped. Treatment has included low dose predisone forever. Plaquenil Tried Enbrel about 2 years ago- states not sure if this helped. Stopped the Enbrel as prescription ran out. Then moved to [facility]. - thinks again on for a few years , she is not quite sure when last injection was, maybe 9-12 months ago. Not sure if the Orencia was helping Current medications: Plaquenil 200 mg BID- goes every 6 months to [facility]. Past Medical History: - Chronic kidney disease stage III (2/2 chronic NSAID use) - Pain management Past Surgical History: - Tonsillectomy - Hysterectomy - Thyroid partial - Carpal tunnel release b/l - Spinal cord stimulator placement and removal Family History: - mother had some sort of pain issues (fibromyalgia) - grandmother - maybe osteoarthritis Social History: - Never smoker - Rare alcohol use - No other drugs Seen pain management- she is on norco 2-4 pill per day, gabapentin 3 times per day. + chronic back pain, had past spinal cord stimulator that had to be removed body rejected it' No prior surgery on her joints. Joints are not good. Describes dull tenderness- wrists, back, ankles, feet. She is getting swelling of her joints. She has some nodules of wrist and hand. Likes to sew, crafting, not on regular exercise regime, ADL's Has also been diagnosed Fibromyalgia, maybe on antidepressant but made me more depressed. Sleep is poor. Takes naps during the day. 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 INTERVAL HISTORY At last visit, had swelling of the hands/wrists, feet/ankles c/w RA. Given this, we initiated actemra; however, she developed a hypersensitivity reaction that required discontinuation of the medication. Given this, we initiated humira, which she had previously tolerated and had done well with her joint swelling. She is currently on humira every other week and prednisone 15 mg daily. Her pain is still present, but there is no longer significant swelling in the joints. She notes a history of fibromyalgia and a prior response to savella. Patient-Entered Data PROMIS Assessments 06/25/2023 09/29/2023 12/30/2023 PROMIS Global Health - (T-Scores - the mean of general population = 50. Five points is a clinically meaningful difference.) Physical T-Score 32.4 29.6 39.8 Mental T-Score 33.8 38.8 48.3 06/25/2023 09/29/2023 12/30/2023 PROMIS CAT Pain Interference PROMIS Pain Interference T-Score (range: 10 - 90) 67 (moderate) 72 (severe) 67 (moderate) PROMIS Pain Interference Percentile 4 1 4 PROMIS Adult Short Form-Global Health Score (Mental) 33.8 (Fair) 38.8 (Fair) 48.3 (Very Good) 06/25/2023 09/29/2023 12/30/2023 PROMIS CAT Fatigue PROMIS Fatigue T-Score 69 (moderate) 69 (moderate) 64 (moderate) PROMIS Fatigue Percentile 3 3 8 06/25/2023 09/29/2023 12/30/2023 PROMIS PHYSICAL FUNCTION T-SCORE PROMIS Physical Function T-Score 31 (moderate dysfunction) 32 (moderate dysfunction) 31 (moderate dysfunction) Physical Function Percentile 3 4 3 RAPID 3 [facility] Activities of Daily Living 12/30/2023 8:34 PM 09/29/2023 10:14 PM 06/25/2023 4:45 PM First answer obtained - 11/18/2022 1:01 AM Dress self? With SOME difficulty With MUCH difficulty With SOME difficulty With SOME difficulty Get in and out of bed? With SOME difficulty With MUCH difficulty With SOME difficulty With SOME difficulty Walk outdoors? With SOME difficulty With MUCH difficulty With SOME difficulty With SOME difficulty Wash and dry body? With SOME difficulty (more content not included)... Normal [facility] CBC W Auto Differential pane l (Bld)on 12-30-2023 Basophils (Bld) [#/Vol] 0.03 10*3/uL Normal <0.11 [facility] Comment on above: Order Comment: Speci men Type: BLOOD SPECIMENOrdering Facility: [facility] Address: [address] [place] [address] Performed By: #### 5 7021-8 ####[facility] JUANISTOWNCLIA [id number] [place] [address] [place] Basophils/100 WBC (Bld) 0.3 % Normal [facility] Comment on above: Order Comment: Speci men Type: BLOOD SPECIMENOrdering Facility: [facility] Address: [address] [place] [address] Performed By: #### 5 7021-8 ####[facility]NCLIA [id number] [place] [address] [place] Differential cell count method Nom (Bld) Auto Normal [facility] Comment on above: Order Comment: Speci men Type: BLOOD SPECIMENOrdering Facility: [facility] Address: [address] [place] [address] Performed By: #### 5 7021-8 ####[facility]CL[facility] [id number] [place] [address] [place] Eosinophils (Bld) [#/Vol] 0.03 10*3/uL Normal <0.46 [facility] Comment on above: Order Comment: Speci men Type: BLOOD SPECIMENOrdering Facility: [facility] Address: [address] [place] [address] Performed By: #### 5 7021-8 ####[facility] MILLTOWNCLIA [id number] [place] [address] [place] Eosinophils/100 WBC (Bld) 0.3 % Normal [facility] Comment on above: Order Comment: Speci men Type: BLOOD SPECIMENOrdering Facility: [facility] Address: [address] [place] [address] Performed By: #### 5 7021-8 ####[facility] [id number] [place] [address] [place] Erythrocyte distribution width (RBC) [Ratio] 13.1 % Normal 11.5-15.0 [facility] Comment on above: Order Comment: Speci men Type: BLOOD SPECIMENOrdering Facility: [facility] Address: [address] [place] [address] Performed By: #### 5 7021-8 ####[facility] [id number] [place] [address] [place] Hematocrit (Bld) [Volume fraction] 41.8 % Normal 36.0-46.0 [facility] Comment on above: Order Comment: Speci men Type: BLOOD SPECIMENOrdering Facility: [facility] Address: [address] [place] [address] Performed By: #### 5 7021-8 ####[facility] [id number] [place] [address] [place] Hemoglobin (Bld) [Mass/Vol] 14.0 g/dL Normal 11.5-15.5 [facility] Comment on above: Order Comment: Speci men Type: BLOOD SPECIMENOrdering Facility: [facility] Address: [address] [place] [address] Performed By: #### 5 7021-8 ####[facility] [id number] [place] [address] [place] Immature granulocytes (Bld) [#/Vol] 0.07 10*3/uL Normal <0.10 [facility] Comment on above: Order Comment: Speci men Type: BLOOD SPECIMENOrdering Facility: [facility] Address: [address] [place] [address] Performed By: #### 5 7021-8 ####[facility] [id number] [place] [address] [place] Immature granulocytes/100 WBC (Bld) 0.6 % Normal [facility] Comment on above: Order Comment: Speci men Type: BLOOD SPECIMENOrdering Facility: [facility] Address: [address] [place] [address] Performed By: #### 5 7021-8 ####[facility]ITALNCSTEW[facility] [id number] [place] [address] [place] Lymphocytes (Bld) [#/Vol] 1.22 10*3/uL Normal 1.00-4.00 [facility] Comment on above: Order Comment: Speci men Type: BLOOD SPECIMENOrdering Facility: [facility] Address: [address] [place] [address] Performed By: #### 5 7021-8 ####[facility] [id number] [place] [address] [place] Lymphocytes/100 WBC (Bld) 11.1 % Normal [facility] Comment on above: Order Comment: Speci men Type: BLOOD SPECIMENOrdering Facility: [facility] Address: [address] [place] [address] Performed By: #### 5 7021-8 ####[facility] [id number] [place] [address] [place] MCH (RBC) [Entitic mass] 31.0 pg Normal 26.0-34.0 [facility] Comment on above: Order Comment: Speci men Type: BLOOD SPECIMENOrdering Facility: [facility] Address: [address] [place] [address] Performed By: #### 5 7021-8 ####[facility] [id number] [place] [address] [place] MCHC (RBC) [Mass/Vol] 33.5 g/dL Normal 30.5-36.0 [facility] Comment on above: Order Comment: Speci men Type: BLOOD SPECIMENOrdering Facility: [facility] Address: [address] [place] [address] Performed By: #### 5 7021-8 ####[facility] JUANISMINDENJEFFERSON [id number] [place] [address] [place] MCV (RBC) [Entitic vol] 92.5 fL Normal 80.0-100.0 [facility] Comment on above: Order Comment: Speci men Type: BLOOD SPECIMENOrdering Facility: [facility] Address: [address] [place] [address] Performed By: #### 5 7021-8 ####[facility] HOSPITALNCMelvi [id number] [place] [address] [place] Monocytes (Bld) [#/Vol] 0.66 10*3/uL Normal <0.87 [facility] Comment on above: Order Comment: Speci men Type: BLOOD SPECIMENOrdering Facility: [facility] Address: [address] [place] [address] Performed By: #### 5 7021-8 ####[facility] HOSPITALNCA [id number] [place] [address] [place] Monocytes/100 WBC (Bld) 6.0 % Normal [facility] Comment on above: Order Comment: Speci men Type: BLOOD SPECIMENOrdering Facility: [facility] Address: [address] [place] [address] Performed By: #### 5 7021-8 ####[facility] HOSPITALNCLIA [id number] [place] [address] [place] Neutrophils (Bld) [#/Vol] 9.02 10*3/uL High 1.45-7.50 [facility] Comment on above: Order Comment: Speci men Type: BLOOD SPECIMENOrdering Facility: [facility] Address: [address] [place] [address] Performed By: #### 5 7021-8 ####[facility] JUANISMINDENJARETTLIA [id number] [place] [address] [place] Neutrophils/100 WBC (Bld) 81.7 % Normal [facility] Comment on above: Order Comment: Speci men Type: BLOOD SPECIMENOrdering Facility: [facility] Address: [address] [place] [address] Performed By: #### 5 7021-8 ####[facility] [id number] [place] [address] [place] Nucleated RBC (Bld) [#/Vol] 10*3/uL Normal <0.01 [facility] Comment on above: Order Comment: Speci men Type: BLOOD SPECIMENOrdering Facility: [facility] Address: [address] [place] [address] Performed By: #### 5 7021-8 ####[facility] [id number] [place] [address] [place] Nucleated RBC/100 WBC (Bld) [Ratio] 0.0 /100 WBC Normal [facility] Comment on above: Order Comment: Speci men Type: BLOOD SPECIMENOrdering Facility: [facility] Address: [address] [place] [address] Performed By: #### 5 7021-8 ####[facility] [id number] [place] [address] [place] Platelet mean volume (Bld) [Entitic vol] 9.8 fL Normal 9.0-12.7 [facility] Comment on above: Order Comment: Speci men Type: BLOOD SPECIMENOrdering Facility: [facility] Address: [address] [place] [address] Performed By: #### 5 7021-8 ####[facility] HOSPITALNCLI [id number] [place] [address] [place] Platelets (Bld) [#/Vol] 225 10*3/uL Normal 150-400 [facility] Comment on above: Order Comment: Speci men Type: BLOOD SPECIMENOrdering Facility: [facility] Address: [address] [place] [address] Performed By: #### 5 7021-8 ####[facility]ITALNCLIA [id number] [place] [address] [place] RBC (Bld) [#/Vol] 4.52 10*6/uL Normal 3.90-5.20 [facility] Comment on above: Order Comment: Speci men Type: BLOOD SPECIMENOrdering Facility: [facility] Address: [address] [place] [address] Performed By: #### 5 7021-8 ####[facility]ITALA [id number] [place] [address] [place] WBC (Bld) [#/Vol] 11.03 10*3/uL High 3.70-11.00 [facility] Comment on above: Order Comment: Speci men Type: BLOOD SPECIMENOrdering Facility: [facility] Address: [address] [place] [address] Performed By: #### 5 7021-8 ####[facility]ITAL[facility] [id number] [place] [address] [place] CREATININE BLDon 12-30-2023 Creatinine [Mass/Vol] 1.18 mg/dL High 0.58-0.96 [facility] Comment on above: Order Comment: Speci men Type: BLOOD SPECIMENOrdering Facility: [facility] Address: [address] [place] [address] Performed By: #### 2 4325-3, 3084-1, CRET1 ####[facility] LABCLIA [id number] [facility] [id number] [place] [address] [place] Creatinine and Glomerular filtration rate.predicted panel (S/P/Bld) 51 mL/min/1.73m??? Low >=60 [facility] Comment on above: Order Comment: Speci men Type: BLOOD SPECIMENOrdering Facility: [facility] Address: [address] [place] [address] Result Comment: Aileen mated Glomerular Filtration Rate (eGFR) is calculated using the 2020 CKD-EPI creatinine equation. This equation utilizes serum creatinine, sex, and age as parameters. The creatinine assay has traceable calibration to isotope dilution-mass spectrometry. Refer to KDIGO guidelines for clinical interpretation. In patients with unstable renal function, e.g. those with acute kidney injury, the eGFR may not accurately reflect actual GFR. Performed By: #### 2 4325-3, 3084-1, CRET1 ####[facility] LABIA [id number] [place] [address] [place] Hepatic function 2000 panelo n 12-30-2023 Albumin [Mass/Vol] 4.2 g/dL Normal 3.9-4.9 [facility] Comment on above: Order Comment: Speci men Type: BLOOD SPECIMENOrdering Facility: [facility] Address: [address] [place] [address] Performed By: #### 2 4325-3, 308-1, CRET1 ####[facility] HOSPITALIA [id number] [place] [address] [place] ALP [Catalytic activity/Vol] 77 U/L Normal 34-123 [facility] Comment on above: Order Comment: Speci men Type: BLOOD SPECIMENOrdering Facility: [facility] Address: [address] [place] [address] Performed By: #### 2 4325-3, 3084-1, CRET1 ####[facility] LABIA [id number] [place] [address] [place] ALT [Catalytic activity/Vol] 57 U/L High 7-38 [facility] Comment on above: Order Comment: Speci men Type: BLOOD SPECIMENOrdering Facility: [facility] Address: [address] [place] [address] Performed By: #### 2 4325-3, 308-1, CRET1 ####[facility] LABIA [id number] [place] [address] [place] AST [Catalytic activity/Vol] 37 U/L High 13-35 [facility] Comment on above: Order Comment: Speci men Type: BLOOD SPECIMENOrdering Facility: [facility] Address: [address] [place] [address] Performed By: #### 2 4325-3, 3083-1, CRET1 ####[facility] LABIA [id number] [place] [address] [place] Bilirubin [Mass/Vol] 0.3 mg/dL Normal 0.2-1.3 [facility] Comment on above: Order Comment: Speci men Type: BLOOD SPECIMENOrdering Facility: [facility] Address: [address] [place] [address] Performed By: #### 2 4325-3, 3083-1, CRET1 ####[facility] LABIA [id number] [place] [address] [place] Bilirubin.conjugated [Mass/Vol] mg/dL Normal <0.2 [facility] Comment on above: Order Comment: Speci men Type: BLOOD SPECIMENOrdering Facility: [facility] Address: [address] [place] [address] Performed By: #### 2 4325-3, 3083-1, CRET1 ####[facility] LABIA [id number] [place] [id number] [place] Protein [Mass/Vol] 6.1 g/dL Low 6.3-8.0 [facility] Comment on above: Order Comment: Speci men Type: BLOOD SPECIMENOrdering Facility: [facility] Address: [address] [place] [address] Performed By: #### 2 4325-3, 3084-1, CRET1 ####[facility] LABCLIA [id number] [place] [id number] [place] Urate SerPl-mCncon 4 Urate [Mass/Vol] 3.3 mg/dL Normal 2.5-6.6 Navarro gray [facility] Comment on above: Order Comment: Speci men Type: BLOOD SPECIMENOrdering Facility: [facility] Address: [facility] [place] [address] Performed By: #### 2 4325-3, 3084-1, CRET1 ####[facility] LABIA [id number] [address] OF [place] CNPAnn 12-18-2023 CNPN Telephone (OPHTMN) SAVANNAH AGUIRRE ([id number]) 1960 F Date Time Provider Department 12/18/23 [facility] During your visit today, we recorded the following information about you: Gladys Marin 12/18/2023 10:33 AM Signed Savannah Aguirre [id number] (home) Marina from [facility] calling in to see if you had gone over this pts records yet? There is a referral for the pt to be scheduled with you. I noticed on the documents in my chart there are check campbell on it. I'm not sure if that means you already looked at them? Gladys Marin 12/21/2023 3:34 PM Signed No monroy to schedule PK Gladys Marin 12/21/2023 3:34 PM Signed Called pt and transferred her to scheduling to make an appt with you. Allergies As of Date: 12/18/2023 Noted Allergy Reaction PENICILLIN 04/10/2015 2 - Rash PERCOCET (OXYCODONE-ACETAMINOPHEN) 2 - Rash TETRACYCLINE 04/10/2015 2 - Rash TOCILIZUMAB 10/26/2023 2 - Rash Comments: Blistering rash on arms, legs, mouth Date Reviewed: 10/01/2023 Reviewed by: Priti Rosas MA - Fully Assessed Reason for Visit: Appointment [186] Prescriptions as of 12/21/2023 - predniSONE (DELTASONE) 5 mg tablet Take 4 tablets by mouth once daily for 7 days, THEN 3.5 tablets once daily for 7 days, THEN 3 tablets once daily for 7 days, THEN 2.5 tablets once daily for 7 days, THEN 2 tablets once daily for 7 days, THEN 1.5 tablets once daily for 7 days, THEN 1 tablet once daily for 7 days, THEN 0.5 tablets once daily for 7 days. - allopurinol (ZYLOPRIM) 300 mg tablet Take 1 tablet by mouth once daily. - colchicine 0.6 mg tablet take 1 tablet by mouth twice a day - adalimumab (HUMIRA,CF, PEN) 40 mg/0.4 mL pen kit Inject 1 pen (40 mg) subcutaneously every other week. - Omeprazole 40 mg capsule Take 40 mg by mouth twice daily. - levothyroxine (SYNTHROID) 100 mcg tablet Take 100 mcg by mouth once daily. - hydroxychloroquine (PLAQUENIL) 200 mg tablet Take by mouth twice daily. - metoprolol tartrate, short acting, (LOPRESSOR) 25 mg tablet Take 50 mg by mouth once daily. - triamterene-hydrochlorothia zide 37.5-25 mg per capsule Take 1 capsule by mouth once daily. - potassium chloride (K-SUNG, KLOR-CON) 20 mEq packet Take 20 mEq by mouth three times daily. - magnesium oxide 400 mg cap Take 400 mg by mouth twice daily. - gabapentin (NEURONTIN) 300 mg capsule Take 300 mg by mouth once daily. - HYDROcodone-acetaminophen (NORCO) 5-325 mg per tablet Take 1 tablet by mouth twice daily. - buprenorphine 15 mcg/hour ptwk Apply as directed. Problem List As Of Date 12/18/2023 Noted Resolved Nausea [R11.0] 05/03/2015 Essential hypertension [I10] 05/03/2015 Hypothyroidism [E03.9] 05/03/2015 Gastroesophageal reflux disease [K21.9] 05/03/2015 Fibromyalgia [M79.7] 05/03/2015 Osteoarthritis [M19.90] 05/03/2015 Encounter Status:Closed by GLADYS MARIN on 12/21/23 [facility] CNPNon 12-04-2023 CNPN Telephone (RHEUMN) CARLASAVANNAH ([id number]) 1960 F Date Time Provider Department 12/04/23 CHRIS CODY During your visit today, we recorded the following information about you: Eugenia Medellin 12/04/2023 2:20 PM Signed Per pt phone call, she is inquiring about her prednisone dosage. Pt states she has been tapering slowly on prednisone, on the she went down to 10mg per day, then on the she went down to 5mg per day. Pt says that ever since she went down to 10mg, she has been having ongoing aches and pains in body. Pt states pain is in wrists, hands, shoulders, feet, and ankles. Pt denies swelling. Pt says she has a long distance she's traveling for next week and doesn't want to be traveling while in pain, and is asking if either the prednisone dosage can be upped back to 20mg per day or if there's another recommendation by the provider. Pt states it's difficult to function under 20mg. Call back # [phone] (cell) Chris Cody MD 12/07/2023 4:49 PM Signed Called patient to discuss symptoms. She has been off prednisone and allopurinol and has been having worsening joint pain. Unclear if this is gouty arthritis vs RA. Will resend pred taper and allopurinol 300 mg daily. Follow-up already scheduled for 12/31. Chris Cody MD Department of Immunologic and Rheumatic Diseases Allergies As of Date: 12/04/2023 Noted Allergy Reaction PENICILLIN 04/10/2015 2 - Rash PERCOCET (OXYCODONE-ACETAMINOPHEN) 2 - Rash TETRACYCLINE 04/10/2015 2 - Rash TOCILIZUMAB 10/26/2023 2 - Rash Comments: Blistering rash on arms, legs, mouth Date Reviewed: 10/01/2023 Reviewed by: Priti Rosas MA - Fully Assessed Reason for Visit: Patient Update [1234] Patient Question [1477] Primary Visit Diagnosis:Seronegative rheumatoid arthritis (HCC) [M06.00] Other Visit Diagnoses:Chronic gout of multiple sites, unspecified cause [M1A.09X0] High risk medication use [Z79.899] Order(s):predniSONE (DELTASONE) 5 mg tabletTake 4 tablets by mouth once daily for 7 days, THEN 3.5 tablets once daily for 7 days, THEN 3 tablets once daily for 7 days, THEN 2.5 tablets once daily for 7 days, THEN 2 tablets once daily for 7 days, THEN 1.5 tablets once daily for 7 days, THEN 1 tablet once daily for 7 days, THEN 0.5 tablets once daily for 7 days.Disp: 126 tabletRfl: 0 allopurinol (ZYLOPRIM) 300 mg tabletTake 1 tablet by mouth once daily.Disp: 90 tabletRfl: 0 Prescriptions as of 12/07/2023 - predniSONE (DELTASONE) 5 mg tablet Take 4 tablets by mouth once daily for 7 days, THEN 3.5 tablets once daily for 7 days, THEN 3 tablets once daily for 7 days, THEN 2.5 tablets once daily for 7 days, THEN 2 tablets once daily for 7 days, THEN 1.5 tablets once daily for 7 days, THEN 1 tablet once daily for 7 days, THEN 0.5 tablets once daily for 7 days. - allopurinol (ZYLOPRIM) 300 mg tablet Take 1 tablet by mouth once daily. - colchicine 0.6 mg tablet take 1 tablet by mouth twice a day - adalimumab (HUMIRA,CF, PEN) 40 mg/0.4 mL pen kit Inject 1 pen (40 mg) subcutaneously every other week. - Omeprazole 40 mg capsule Take 40 mg by mouth twice daily. - levothyroxine (SYNTHROID) 100 mcg tablet Take 100 mcg by mouth once daily. - hydroxychloroquine (PLAQUENIL) 200 mg tablet Take by mouth twice daily. - metoprolol tartrate, short acting, (LOPRESSOR) 25 mg tablet Take 50 mg by mouth once daily. - triamterene-hydrochlorothia zide 37.5-25 mg per capsule Take 1 capsule by mouth once daily. - potassium chloride (K-SUNG, KLOR-CON) 20 mEq packet Take 20 mEq by mouth three times daily. - magnesium oxide 400 mg cap Take 400 mg by mouth twice daily. - gabapentin (NEURONTIN) 300 mg capsule Take 300 mg by mouth once daily. - HYDROcodone-acetaminophen (NORCO) 5-325 mg per tablet Take 1 tablet by mouth twice daily. - buprenorphine 15 mcg/hour ptwk Apply as directed. Problem List As Of Date 12/04/2023 Noted Resolved Nausea [R11.0] 05/03/2015 Essential hypertension [I10] 05/03/2015 Hypothyroidism [E03.9] 05/03/2015 Gastroesophageal reflux disease [K21.9] 05/03/2015 Fibromyalgia [M79.7] 05/03/2015 Osteoarthritis [M19.90] 05/03/2015 Prescriptions ordered this encounter Disp Refills Start End PREDNISONE 5 MG TABLET 126 * 0 12/07/2023 02/01/2024 Route: ORAL Sig: Take 4 tablets by mouth once daily for 7 days, THEN 3.5 tablets once daily for 7 days, THEN 3 tablets once daily for 7 days, THEN 2.5 tablets once daily for 7 days, THEN 2 tablets once daily for 7 days, THEN 1.5 tablets once daily for 7 days, THEN 1 tablet once daily for 7 days, THEN 0.5 tablets once daily for 7 days. ALLOPURINOL 300 MG TABLET 90 t* 0 12/07/2023 03/06/2024 Route: ORAL Sig: Take 1 tablet by mouth once daily. Medications Discontinued During This Encounter Prescriptions - allopurinol (ZY (more content not included)... Normal [facility] Monique 10-26-2023 RAFAELN Telephone (RHEUMN) SAVANNAH AGUIRRE ([id number]) 1960 F Date Time Provider Department 10/26/23 CHRIS CODY During your visit today, we recorded the following information about you: Jose Maria Pisano 10/26/2023 2:29 PM Signed Pt identified by name and date of Pt took first shot of Actemra last week and pt experienced both arms and both legs were blistered; pt's tongue has ulcers as well as the roof of pt's mouth; pt is experiencing chapped lips Pt completed the prednisone and pt states that stiffness and soreness returned Pt could be reached at [phone] Chris Cody MD 10/26/2023 5:32 PM Signed Spoke to patient. She developed ulcers and blisters on arms, legs and mouth after taking a dose of actemra 2-3 days later. With benadryl this is resolving, but took several days. No dyspnea or chest pain. We discussed plan to stop actemra. Will place on allergy list. Prednisone taper for sores/ulcers and for joint pain. We retrial adalimumab. She had labs today and I will review when available. Chris Cody MD Department of Immunologic and Rheumatic Diseases Allergies As of Date: 10/26/2023 Noted Allergy Reaction PENICILLIN 04/10/2015 2 - Rash PERCOCET (OXYCODONE-ACETAMINOPHEN) 2 - Rash TETRACYCLINE 04/10/2015 2 - Rash TOCILIZUMAB 10/26/2023 2 - Rash Comments: Blistering rash on arms, legs, mouth Date Reviewed: 10/01/2023 Reviewed by: Priti Rosas MA - Fully Assessed Reason for Visit: Patient Question [0977] Patient Update [1234] Primary Visit Diagnosis:Seronegative rheumatoid arthritis (HCC) [M06.00] Order(s):predniSONE (DELTASONE) 5 mg tabletTake 6 tablets by mouth once daily for 5 days, THEN 5 tablets once daily for 5 days, THEN 4 tablets once daily for 5 days, THEN 3 tablets once daily for 7 days, THEN 2 tablets once daily for 7 days, THEN 1 tablet once daily for 7 days.Disp: 117 tabletRfl: 0 adalimumab (HUMIRA,CF, PEN) 40 mg/0.4 mL pen kitInject 40 mg subcutaneously every other week.Disp: 2 EachRfl: 2 Prescriptions as of 10/26/2023 - predniSONE (DELTASONE) 5 mg tablet Take 6 tablets by mouth once daily for 5 days, THEN 5 tablets once daily for 5 days, THEN 4 tablets once daily for 5 days, THEN 3 tablets once daily for 7 days, THEN 2 tablets once daily for 7 days, THEN 1 tablet once daily for 7 days. - adalimumab (HUMIRA,CF, PEN) 40 mg/0.4 mL pen kit Inject 40 mg subcutaneously every other week. - colchicine 0.6 mg tablet take 1 tablet by mouth twice a day - allopurinol (ZYLOPRIM) 100 mg tablet TAKE 3 TABLETS ONCE DAILY - Omeprazole 40 mg capsule Take 40 mg by mouth twice daily. - levothyroxine (SYNTHROID) 100 mcg tablet Take 100 mcg by mouth once daily. - hydroxychloroquine (PLAQUENIL) 200 mg tablet Take by mouth twice daily. - metoprolol tartrate, short acting, (LOPRESSOR) 25 mg tablet Take 50 mg by mouth once daily. - triamterene-hydrochlorothia zide 37.5-25 mg per capsule Take 1 capsule by mouth once daily. - potassium chloride (K-SUNG, KLOR-CON) 20 mEq packet Take 20 mEq by mouth three times daily. - magnesium oxide 400 mg cap Take 400 mg by mouth twice daily. - gabapentin (NEURONTIN) 300 mg capsule Take 300 mg by mouth once daily. - HYDROcodone-acetaminophen (NORCO) 5-325 mg per tablet Take 1 tablet by mouth twice daily. - buprenorphine 15 mcg/hour ptwk Apply as directed. Problem List As Of Date 10/26/2023 Noted Resolved Nausea [R11.0] 05/03/2015 Essential hypertension [I10] 05/03/2015 Hypothyroidism [E03.9] 05/03/2015 Gastroesophageal reflux disease [K21.9] 05/03/2015 Fibromyalgia [M79.7] 05/03/2015 Osteoarthritis [M19.90] 05/03/2015 Prescriptions ordered this encounter Disp Refills Start End PREDNISONE 5 MG TABLET 117 * 0 10/26/2023 12/01/2023 Route: ORAL Sig: Take 6 tablets by mouth once daily for 5 days, THEN 5 tablets once daily for 5 days, THEN 4 tablets once daily for 5 days, THEN 3 tablets once daily for 7 days, THEN 2 tablets once daily for 7 days, THEN 1 tablet once daily for 7 days. HUMIRA(CF) PEN 40 MG/0.4 ML SUBCUTAN* 2 Ea* 2 10/26/2023 01/24/2024 Route: SUBCUTANEOUS Sig: Inject 40 mg subcutaneously every other week. Medications Discontinued During This Encounter Prescriptions - tocilizumab 162 mg/0.9 mL (Discontinued) Inject 1 pen (162mg) subcutaneously every other week. Encounter Status:Closed by CHRIS CODY on 10/26/23 [facility] Lipid Profileon 10-26-2023 Cholesterol [Mass/Vol] 175 mg/dL Normal 200 [facility] Comment on above: Result Comment: <200 mg/dL Desirable 200-240 mg/dL Borderline >240 mg/dL High Risk Performed By: #### L 501.9520, L500.4100, L506.0400 ####[facility] [address] [place], [address] Cholesterol in HDL [Mass/Vol] 47 mg/dL Normal [facility] Comment on above: Result Comment: The drugs N-Acetylcysteine and Metamizole may falselydepress this assay. Reference Range HDL <40 mg/dL Low HDL Cholesterol HDL >or= 60 mg/dL High HDL Cholesterol Performed By: #### L 501.9520, L500.4100, L506.0400 ####[facility] [address] [place], [address] Cholesterol in LDL [Mass/Vol] 91 mg/dL Normal 0-130 [facility] Comment on above: Performed By: #### L 501.9520, L500.4100, L506.0400 ####[facility] [address] [place], [address] Cholesterol in VLDL [Mass/Vol] 37 mg/dL Normal 5-40 [facility] Comment on above: Performed By: #### L 501.9520, L500.4100, L506.0400 ####[facility] [address] [place], [address] Triglyceride [Mass/Vol] 183 mg/dL Normal [facility] Comment on above: Result Comment: The drugs N-Acetylcysteine and Metamizole may falselydepress this assay.Serum Triglycerides Reference Interval Normal <150 mg/dL Borderline high 150 - 199 mg/dL High 200 - 499 mg/dL Very High > or = 500 mg/dL Performed By: #### L 501.9520, L500.4100, L506.0400 ####[facility] [address] [place], [address] T4 Free Directon 10-26-2023 T4 FREE DIRECT 1.12 ng/dL Normal 0.76-1.46 [facility] Comment on above: Performed By: #### L 501.9520, L500.4100, L506.0400 ####[facility] [address] [place], [address] Thyroid Stim Hormone (TSH)on 10-26-2023 TSH 1.000 uIU/mL Normal 0.358-3.74 0 [facility] Comment on above: Performed By: #### L 501.9520, L500.4100, L506.0400 ####[facility] [address] [place], [address] CNOVon 10-01-2023 CNOV Office Visit (RHEUMN ) SAVANNAH AGUIRRE ([id number]) 1960 F Date Time Provider Department 10/01/23 10:40 AM CHRIS CODY During your visit today, we recorded the following information about you: Temperature Pulse Blood pressure Weight 97.7 degrees 49/minute 142/56 85.9 kg Height 1.6 m Chris Cody MD 10/04/2023 11:29 AM Signed [facility] Date of Service: 10/01/2023 Patient: Savannah Aguirre Medical Record: [id number] Primary Care Physician: Shahab Adams DO Last Rheumatology visit: 10/01/2023 (with Chris Cody) History of Present Illness Savannah Aguirre is a 62 year old White female who presents on 10/01/2023 for in person visit for evaluation of Joint Pain. She is currently taking prednisone, tocilizumab. Savannah is both RF - 9 (11/21/2022) and CCP - 13.5 (11/21/2022) negative. Her most recent CHASIDY was negative (01/16/2023). HISTORY OF PRESENT ILLNESS Patient scheduled to see me today for arthritis. 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 8-10 years dx'ed with RA but blood test and pain- hips, shoulders, feet. Patient has CRI, she used Methotrexate for one week and stopped. Treatment has included low dose predisone forever. Mitchelll Tried Enbrel about 2 years ago- states not sure if this helped. Stopped the Enbrel as prescription ran out. Then moved to [facility]. - thinks again on for a few years , she is not quite sure when last injection was, maybe 9-12 months ago. Not sure if the Orencia was helping Current medications: Plaquenil 200 mg BID- goes every 6 months to [facility]. Past Medical History: - Chronic kidney disease stage III (2/2 chronic NSAID use) - Pain management Past Surgical History: - Tonsillectomy - Hysterectomy - Thyroid partial - Carpal tunnel release b/l - Spinal cord stimulator placement and removal Family History: - mother had some sort of pain issues (fibromyalgia) - grandmother - maybe osteoarthritis Social History: - Never smoker - Rare alcohol use - No other drugs Seen pain management- she is on norco 2-4 pill per day, gabapentin 3 times per day. + chronic back pain, had past spinal cord stimulator that had to be removed body rejected it' No prior surgery on her joints. Joints are not good. Describes dull tenderness- wrists, back, ankles, feet. She is getting swelling of her joints. She has some nodules of wrist and hand. Likes to sew, crafting, not on regular exercise regime, ADL's Has also been diagnosed Fibromyalgia, maybe on antidepressant but made me more depressed. Sleep is poor. Takes naps during the day. 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 INTERVAL HISTORY Today she notes worsening of joint pain and recurrence of chronic joint swelling since last visit. This is similar to prior to when she first saw me. Notes minimal improvement with colchicine. Worst joints are wrists/hands, feet/ankles. No history of GI surgery, bowel perforation, diverticulitis. Last lipids were checked with PCP and were reportedly normal. Patient-Entered Data PROMIS Assessments 11/18/2022 06/25/2023 09/29/2023 PROMIS Global Health - (T-Scores - the mean of general population = 50. Five points is a clinically meaningful difference.) Physical T-Score 34.9 32.4 29.6 Mental T-Score 38.8 33.8 38.8 11/18/2022 06/25/2023 09/29/2023 PROMIS CAT Pain Interference PROMIS Pain Interference T-Score (range: 10 - 90) 67 (moderate) 67 (moderate) 72 (severe) PROMIS Pain Interference Percentile 4 4 1 PROMIS Adult Short Form-Global Health Score (Mental) 38.8 (Fair) 33.8 (Fair) 38.8 (Fair) 11/18/2022 06/25/2023 09/29/2023 PROMIS CAT Fatigue PROMIS Fatigue T-Score 64 (moderate) 69 (moderate) 69 (moderate) PROMIS Fatigue Percentile 8 3 3 11/18/2022 06/25/2023 09/29/2023 PROMIS PHYSICAL FUNCTION T-SCORE PROMIS Physical Function T-Score 29 (severe dysfunction) 31 (moderate dysfunction) 32 (moderate dysfunction) Physical Function Percentile 2 3 4 RAPID 3 Melara Activities of Daily Living 09/29/2023 10:14 PM 06/25/2023 4:45 PM 11/18/2022 1:01 AM Dress self? With MUCH difficulty With SOME difficulty With SOME difficulty Get in and out of bed? With MUCH difficulty With SOME difficulty With SOME difficulty Walk outdoors? With MUCH difficulty With SOME difficulty With SOME difficulty Wash and dry body? With MUCH difficulty With MUCH difficulty With SOME difficulty Get in and out of car? With MUCH difficulty With SOME difficulty With SOME difficulty RAPID 3 Disease Activity Weighed Score Levels: 0 - 1: Near Remission 1.3 - 2.0: Low Severity 2.3 - 4.0: Moderate Severity 4.3 - 10.0: High Severity 11/18/2022 06/25/2023 (more content not included)... Normal [facility] CBC W Auto Differential pane l (Bld)on 09-28-2023 Basophils (Bld) [#/Vol] 0.04 10*3/uL Normal <0.11 [facility] Comment on above: Order Comment: Speci men Type: BLOOD SPECIMENOrdering Facility: [facility] Address: [address] [place] [address] Performed By: #### 5 7021-8 ####[facility] [id number] [place] [address] [place] Basophils/100 WBC (Bld) 0.8 % Normal [facility] Comment on above: Order Comment: Speci men Type: BLOOD SPECIMENOrdering Facility: [facility] Address: [address] [place] [address] Performed By: #### 5 7021-8 ####[facility] [id number] [place] [address] [place] Differential cell count method Nom (Bld) Auto Normal [facility] Comment on above: Order Comment: Speci men Type: BLOOD SPECIMENOrdering Facility: [facility] Address: [address] [place] [address] Performed By: #### 5 7021-8 ####[facility] MILLWNCLIA [id number] [place] [address] [place] Eosinophils (Bld) [#/Vol] 0.41 10*3/uL Normal <0.46 [facility] Comment on above: Order Comment: Speci men Type: BLOOD SPECIMENOrdering Facility: [facility] Address: [address] [place] [address] Performed By: #### 5 7021-8 ####[facility] JCNCHAYDENA [id number] [place] [address] [place] Eosinophils/100 WBC (Bld) 8.2 % Normal [facility] Comment on above: Order Comment: Speci men Type: BLOOD SPECIMENOrdering Facility: [facility] Address: [address] [place] [address] Performed By: #### 5 7021-8 ####[facility] JUANISMINDENNCLIMelvi [id number] [place] [address] [place] Erythrocyte distribution width (RBC) [Ratio] 12.5 % Normal 11.5-15.0 [facility] Comment on above: Order Comment: Speci men Type: BLOOD SPECIMENOrdering Facility: [facility] Address: [address] [place] [address] Performed By: #### 5 7021-8 ####[facility] H[facility]PITALNCHAYDENA [id number] [place] [address] [place] Hematocrit (Bld) [Volume fraction] 37.4 % Normal 36.0-46.0 [facility] Comment on above: Order Comment: Speci men Type: BLOOD SPECIMENOrdering Facility: [facility] Address: [address] [place] [address] Performed By: #### 5 7021-8 ####[facility]ITALNCLIA [id number] [place] [address] [place] Hemoglobin (Bld) [Mass/Vol] 12.3 g/dL Normal 11.5-15.5 [facility] Comment on above: Order Comment: Speci men Type: BLOOD SPECIMENOrdering Facility: [facility] Address: [address] [place] [address] Performed By: #### 5 7021-8 ####[facility] MILLWNCLIA [id number] [place] [address] [place] Immature granulocytes (Bld) [#/Vol] 10*3/uL Normal <0.10 [facility] Comment on above: Order Comment: Speci men Type: BLOOD SPECIMENOrdering Facility: [facility] Address: [address] [place] [address] Performed By: #### 5 7021-8 ####[facility]ITAL[facility]CLIA [id number] [place] [address] [place] Immature granulocytes/100 WBC (Bld) 0.2 % Normal [facility] Comment on above: Order Comment: Speci men Type: BLOOD SPECIMENOrdering Facility: [facility] Address: [address] [place] [address] Performed By: #### 5 7021-8 ####[facility] [id number] [place] [address] [place] Lymphocytes (Bld) [#/Vol] 1.23 10*3/uL Normal 1.00-4.00 [facility] Comment on above: Order Comment: Speci men Type: BLOOD SPECIMENOrdering Facility: [facility] Address: [address] [place] [address] Performed By: #### 5 7021-8 ####[facility] MILLWNCLIA [id number] [place] [address] [place] Lymphocytes/100 WBC (Bld) 24.5 % Normal [facility] Comment on above: Order Comment: Speci men Type: BLOOD SPECIMENOrdering Facility: [facility] Address: [address] [place] [address] Performed By: #### 5 7021-8 ####[facility]ITALNCLIA [id number] [place] [address] [place] MCH (RBC) [Entitic mass] 30.3 pg Normal 26.0-34.0 [facility] Comment on above: Order Comment: Speci men Type: BLOOD SPECIMENOrdering Facility: [facility] Address: [address] [place] [address] Performed By: #### 5 7021-8 ####[facility]ITALNCHAYDENA [id number] [place] [address] [place] MCHC (RBC) [Mass/Vol] 32.9 g/dL Normal 30.5-36.0 [facility] Comment on above: Order Comment: Speci men Type: BLOOD SPECIMENOrdering Facility: [facility] Address: [address] [place] [address] Performed By: #### 5 7021-8 ####[facility] HOSPITALNCMelvi [id number] [place] [address] [place] MCV (RBC) [Entitic vol] 92.1 fL Normal 80.0-100.0 [facility] Comment on above: Order Comment: Speci men Type: BLOOD SPECIMENOrdering Facility: [facility] Address: [address] [place] [address] Performed By: #### 5 7021-8 ####[facility]OSPITALNCSTEWARD HE[facility] [id number] [place] [address] [place] Monocytes (Bld) [#/Vol] 0.52 10*3/uL Normal <0.87 [facility] Comment on above: Order Comment: Speci men Type: BLOOD SPECIMENOrdering Facility: [facility] Address: [address] [place] [address] Performed By: #### 5 7021-8 ####[facility] HOSPITALNCLIA [id number] [place] [address] [place] Monocytes/100 WBC (Bld) 10.3 % Normal [facility] Comment on above: Order Comment: Speci men Type: BLOOD SPECIMENOrdering Facility: [facility] Address: [address] [place] [address] Performed By: #### 5 7021-8 ####[facility] REBEKAHLIA [id number] [place] [address] [place] Neutrophils (Bld) [#/Vol] 2.82 10*3/uL Normal 1.45-7.50 [facility] Comment on above: Order Comment: Speci men Type: BLOOD SPECIMENOrdering Facility: [facility] Address: [address] [place] [address] Performed By: #### 5 7021-8 ####[facility] HOSPITALJARETTLIA [id number] [place] [address] [place] Neutrophils/100 WBC (Bld) 56.0 % Normal [facility] Comment on above: Order Comment: Speci men Type: BLOOD SPECIMENOrdering Facility: [facility] Address: [address] [place] [address] Performed By: #### 5 7021-8 ####[facility]OSPITALLIA [id number] [place] [address] [place] Nucleated RBC (Bld) [#/Vol] 10*3/uL Normal <0.01 [facility] Comment on above: Order Comment: Speci men Type: BLOOD SPECIMENOrdering Facility: [facility] Address: [address] [place] [address] Performed By: #### 5 7021-8 ####[facility] HOSPITALLIA [id number] [place] [address] [place] Nucleated RBC/100 WBC (Bld) [Ratio] 0.0 /100 WBC Normal [facility] Comment on above: Order Comment: Speci men Type: BLOOD SPECIMENOrdering Facility: [facility] Address: [address] [place] [address] Performed By: #### 5 7021-8 ####[facility] MILLHOMEWNCLIA [id number] [place] [address] [place] Platelet mean volume (Bld) [Entitic vol] 10.2 fL Normal 9.0-12.7 [facility] Comment on above: Order Comment: Speci men Type: BLOOD SPECIMENOrdering Facility: [facility] Address: [address] [place] [address] Performed By: #### 5 7021-8 ####[facility] HOSPITALNCLIA [id number] [place] [address] [place] Platelets (Bld) [#/Vol] 197 10*3/uL Normal 150-400 [facility] Comment on above: Order Comment: Speci men Type: BLOOD SPECIMENOrdering Facility: [facility] Address: [address] [place] [address] Performed By: #### 5 7021-8 ####[facility] HOSPITALNCLIA [id number] [place] [address] [place] RBC (Bld) [#/Vol] 4.06 10*6/uL Normal 3.90-5.20 [facility] Comment on above: Order Comment: Speci men Type: BLOOD SPECIMENOrdering Facility: [facility] Address: [address] [place] [address] Performed By: #### 5 7021-8 ####[facility] HOSPITALNCLIA [id number] [place] [address] [place] WBC (Bld) [#/Vol] 5.03 10*3/uL Normal 3.70-11.00 [facility] Comment on above: Order Comment: Speci men Type: BLOOD SPECIMENOrdering Facility: [facility] Address: [address] [place] [address] Performed By: #### 5 7021-8 ####[facility] HOSPITALMTLIA [id number] [place] [address] [place] CREATININE BLDon 09-28-2023 Creatinine [Mass/Vol] 1.17 mg/dL High 0.58-0.96 [facility] Comment on above: Order Comment: Speci men Type: BLOOD SPECIMENOrdering Facility: [facility] Address: [address] [place] [address] Performed By: #### 2 4325-3, 3084-1, CRET1 ####[facility]OSPITALLIA [id number] [place] [address] [place] Creatinine and Glomerular filtration rate.predicted panel (S/P/Bld) 52 mL/min/1.73m??? Low >=60 [facility] Comment on above: Order Comment: Speci men Type: BLOOD SPECIMENOrdering Facility: [facility] Address: [address] [place] [address] Result Comment: Aileen mated Glomerular Filtration Rate (eGFR) is calculated using the 2020 CKD-EPI creatinine equation. This equation utilizes serum creatinine, sex, and age as parameters. The creatinine assay has traceable calibration to isotope dilution-mass spectrometry. Refer to KDIGO guidelines for clinical interpretation. In patients with unstable renal function, e.g. those with acute kidney injury, the eGFR may not accurately reflect actual GFR. Performed By: #### 2 4325-3, 3084-1, CRET1 ####[facility] HOSPITALLIA [id number] [place] [address] [place] Hepatic function 2000 panelo n 09-28-2023 Albumin [Mass/Vol] 4.2 g/dL Normal 3.9-4.9 [facility] Comment on above: Order Comment: Speci men Type: BLOOD SPECIMENOrdering Facility: [facility] Address: [address] [place] [address] Performed By: #### 2 4325-3, 3084-1, CRET1 ####[facility] WAUCHULAWMTLIA [id number] [place] [address] [place] ALP [Catalytic activity/Vol] 108 U/L Normal 34-123 [facility] Comment on above: Order Comment: Speci men Type: BLOOD SPECIMENOrdering Facility: [facility] Address: [address] [place] [address] Performed By: #### 2 4325-3, 3084-1, CRET1 ####[facility] HOSPITALTAMARA [id number] [place] [address] [place] ALT [Catalytic activity/Vol] 37 U/L Normal 7-38 [facility] Comment on above: Order Comment: Speci men Type: BLOOD SPECIMENOrdering Facility: [facility] Address: [address] [place] [address] Performed By: #### 2 4325-3, 3084-1, CRET1 ####[facility] HOSPITALNCMICHELLE [id number] [place] [address] [place] AST [Catalytic activity/Vol] 46 U/L High 13-35 [facility] Comment on above: Order Comment: Speci men Type: BLOOD SPECIMENOrdering Facility: [facility] Address: [address] [place] [address] Performed By: #### 2 4325-3, 3084-1, CRET1 ####[facility] HOSPITALHAYDENA [id number] [place] [address] [place] Bilirubin [Mass/Vol] 0.6 mg/dL Normal 0.2-1.3 [facility] Comment on above: Order Comment: Speci men Type: BLOOD SPECIMENOrdering Facility: [facility] Address: [address] [place] [address] Performed By: #### 2 4325-3, 3084-1, CRET1 ####[facility] HOSPITALNCLIA [id number] [place] [address] [place] Bilirubin.conjugated [Mass/Vol] 0.2 mg/dL High <0.2 [facility] Comment on above: Order Comment: Speci men Type: BLOOD SPECIMENOrdering Facility: [facility] Address: [address] [place] [address] Performed By: #### 2 4325-3, 3084-1, CRET1 ####[facility]OSPITALLIA [id number] [place] [address] [place] Protein [Mass/Vol] 6.3 g/dL Normal 6.3-8.0 [facility] Comment on above: Order Comment: Speci men Type: BLOOD SPECIMENOrdering Facility: [facility] Address: [address] [place] [address] Performed By: #### 2 4325-3, 3084-1, CRET1 ####[facility] [id number] [place] [address] [place] Urate SerPl-mCncon 4 Urate [Mass/Vol] 2.8 mg/dL Normal 2.5-6.6 [facility] Comment on above: Order Comment: Speci men Type: BLOOD SPECIMENOrdering Facility: [facility] Address: [address] [place] [address] Performed By: #### 2 4325-3, 3084-1, CRET1 ####[facility] [id number] [address] [place] CNPNon 08-20-2023 CNPN Telephone (RHEUMN) SAVANNAH AGUIRRE ([id number]) 1960 F Date Time Provider Department 08/20/23 CHRIS CODY During your visit today, we recorded the following information about you: Eugenia Medellin 08/20/2023 3:47 PM Signed Per pt, she was taken off colchicine after her 06/26/23 visit. She began noticing symptoms about a week after she stopped taking the medication. Pt has had increased pain, noted especially in hands and feet. Pt has also had increased swelling in both legs, primarily the ankles and feet, which has resulted in issues getting shoes on/discomfort while wearing shoes. Also noted swelling in hands and issues making and keeping a fist. Pt states she has an upcoming appt on 10/01/23 but is hoping to have some relief prior to visit if possible. Pt would like a call back at [phone] (home) to discuss treatment plan. Noelle Mcfadden RN 08/27/2023 10:23 AM Signed Spoke with patient on the phone. Patient received colchicine prescription last Thursday. She has been taking med twice a day. Patient states that she developed diarrhea. Patient states that she will not take evening dose today, will start taking daily dose starting tomorrow. Patient states that her symptoms have improved greatly. Patient states she will keep Dr. Cody update. Patient thanked RN for the call. All questions answered. Allergies As of Date: 08/20/2023 Noted Allergy Reaction PENICILLIN 04/10/2015 2 - Rash PERCOCET (OXYCODONE-ACETAMINOPHEN) 2 - Rash TETRACYCLINE 04/10/2015 2 - Rash Date Reviewed: 06/26/2023 Reviewed by: Jesica Aldana MA - Fully Assessed Reason for Visit: Patient Question [0027] Patient Update [1234] Primary Visit Diagnosis:Chronic gout of multiple sites, unspecified cause [M1A.09X0] Order(s):colchicine 0.6 mg tabletTake 1 tablet by mouth two times a day.Disp: 60 tabletRfl: 0 Prescriptions as of 08/27/2023 - colchicine 0.6 mg tablet Take 1 tablet by mouth two times a day. - allopurinol (ZYLOPRIM) 100 mg tablet TAKE 3 TABLETS ONCE DAILY - Omeprazole 40 mg capsule Take 40 mg by mouth twice daily. - levothyroxine (SYNTHROID) 100 mcg tablet Take 100 mcg by mouth once daily. - hydroxychloroquine (PLAQUENIL) 200 mg tablet Take by mouth twice daily. - metoprolol tartrate, short acting, (LOPRESSOR) 25 mg tablet Take 25 mg by mouth once daily. - triamterene-hydrochlorothia zide 37.5-25 mg per capsule Take 1 capsule by mouth once daily. - potassium chloride (K-SUNG, KLOR-CON) 20 mEq packet Take 20 mEq by mouth three times daily. - magnesium oxide 400 mg cap Take 400 mg by mouth twice daily. - gabapentin (NEURONTIN) 300 mg capsule Take 300 mg by mouth once daily. - HYDROcodone-acetaminophen (NORCO) 5-325 mg per tablet Take 1 tablet by mouth twice daily. - buprenorphine 15 mcg/hour ptwk Apply as directed. Problem List As Of Date 08/20/2023 Noted Resolved Nausea [R11.0] 05/03/2015 Essential hypertension [I10] 05/03/2015 Hypothyroidism [E03.9] 05/03/2015 Gastroesophageal reflux disease [K21.9] 05/03/2015 Fibromyalgia [M79.7] 05/03/2015 Osteoarthritis [M19.90] 05/03/2015 Prescriptions ordered this encounter Disp Refills Start End COLCHICINE 0.6 MG TABLET 60 t* 0 08/20/2023 09/19/2023 Route: ORAL Sig: Take 1 tablet by mouth two times a day. Medications Discontinued During This Encounter Prescriptions - colchicine 0.6 mg tablet (Discontinued) Take 1 tablet by mouth once daily. Encounter Status:Closed by CHRIS CODY on 08/20/23 Normal [facility] C-REACTIVE PROTEIN (CRP)on 0 11-21-2022 CRP [Mass/Vol] <0.9 mg/dL [facility] CBC panel Auto (Bld)on 11-21 Erythrocyte distribution width (RBC) [Ratio] 12.9 % 11.5 - 15.0 % [facility] Hematocrit (Bld) [Volume fraction] 42.5 % 36.0 - 46.0 % [facility] Hemoglobin (Bld) [Mass/Vol] 13.9 g/dL 11.5 - 15.5 g/dL [facility] MCH (RBC) [Entitic mass] 30.3 pg 26.0 - 34.0 pg [facility] MCHC (RBC) [Mass/Vol] 32.7 g/dL 30.5 - 36.0 g/dL [facility] MCV (RBC) [Entitic vol] 92.8 fL 80.0 - 100.0 fL [facility] Nucleated RBC (Bld) [#/Vol] <0.01 k/uL [facility] Platelet mean volume (Bld) [Entitic vol] 10.7 fL 9.0 - 12.7 fL [facility] Platelets (Bld) [#/Vol] 252 10*3/uL 150 - 400 k/uL [facility] RBC (Bld) [#/Vol] 4.58 10*6/uL 3.90 - 5.20 m/uL [facility] WBC (Bld) [#/Vol] 9.66 10*3/uL 3.70 - 11.00 k/uL [facility] Comprehensive metabolic 2000 panelon 11-21-2022 Albumin [Mass/Vol] 4.2 g/dL 3.9 - 4.9 g/dL [facility] ALP [Catalytic activity/Vol] 99 U/L 34 - 123 U/L [facility] ALT [Catalytic activity/Vol] 26 U/L 7 - 38 U/L [facility] Anion gap [Moles/Vol] 10 mmol/L 9 - 18 mmol/L [facility] AST [Catalytic activity/Vol] 29 U/L 13 - 35 U/L [facility] Bilirubin [Mass/Vol] 0.5 mg/dL 0.2 - 1 .3 mg/dL [facility] Calcium [Mass/Vol] 9.7 mg/dL 8.5 - 10. 2 mg/dL [facility] Chloride [Moles/Vol] 108 mmol/L High 97 - 10 5 mmol/L [facility] CO2 [Moles/Vol] 28 mmol/L 22 - 30 mmol/L [facility] Creatinine [Mass/Vol] 1.30 mg/dL High 0.58 - 0.96 mg/dL [facility] Estimated Glomerular Filtration Rate 46 mL/min/1.73m Low >=60 mL/min/1.7 3m [facility] Glucose [Mass/Vol] 83 mg/dL 74 - 99 mg/dL [facility] Potassium [Moles/Vol] 4.8 mmol/L 3.7 - 5.1 mmol/L [facility] Protein [Mass/Vol] 6.9 g/dL 6.3 - 8.0 g/dL [facility] Sodium [Moles/Vol] 146 mmol/L High 136 - 144 mmol/L [facility] Urea nitrogen [Mass/Vol] 33 mg/dL High 7 - 21 mg/dL [facility] ESR Westergren method (Bld) [Velocity]on 11-21-2022 ESR (Bld) [Velocity] 5 mm/h 0 - 20 mm/hr [facility] No Panel Informationon 11-21 [facility] Cerebrospinal fluid Borrelia burgdorferi 18kd IgG antibody detection by immunoblotOrdered By: Shahab Adams on 09-24-2022 B. burgdorferi 18kD IgG IB Ql (CSF) Absent . [facility] Cerebrospinal fluid Borrelia burgdorferi 23kD IgG antibody detection by immunoblotOrdered By: Shahab Adams on 09-24-2022 B. burgdorferi 23kD IgG IB Ql (CSF) Absent . [facility] Cerebrospinal fluid Borrelia burgdorferi 23kD IgM antibody detection by immunoblotOrdered By: Shahab Adams on 09-24-2022 B. burgdorferi 23kD IgM IB Ql (CSF) Absent . [facility] Cerebrospinal fluid Borrelia burgdorferi 28kD IgG antibody detection by immunoblotOrdered By: Shahab Adams on 09-24-2022 B. burgdorferi 28kD IgG IB Ql (CSF) Absent . [facility] Cerebrospinal fluid Borrelia burgdorferi 39kD IgG antibody detection by immunoblotOrdered By: Shahab Adams on 09-24-2022 B. burgdorferi 39kD IgG IB Ql (CSF) Absent . [facility] Cerebrospinal fluid Borrelia burgdorferi 39kD IgM antibody detection by immunoblotOrdered By: Shahab Adams on 09-24-2022 B. burgdorferi 39kD IgM IB Ql (CSF) Absent . [facility] Cerebrospinal fluid Borrelia burgdorferi 41kD IgM antibody detection by immunoblotOrdered By: Shahab Adams on 09-24-2022 B. burgdorferi 41kD IgM IB Ql (CSF) Absent . [facility] No Panel InformationOrdered By: Shahab Adams on 09-24-2022 Lyme Disease IgG Ab 30 kDa Band Absent . [facility] Lyme Disease IgG Ab 93 kDa Band Absent . [facility] Lyme Disease IgG West Blot Interp Negative . [facility] Comment on above: Positive: 5 of the f ollowing Borrelia-specific bands: 18,23,28,30,39,41,45,58, 66, and 93. Negative: No bands or banding patterns which do not meet positive criteria. Lyme Disease IgM Ab (Western Blot) Negative . [facility] Comment on above: Note: An equivocal o r positive EIA result followed by anegative Line Blot result is considered NEGATIVE. Anequivocal or positive EIA result followed by a positiveLine Blot is considered POSITIVE by the CDC.Positive: 2 of the following bands: 23,39 or 41Negative: No bands or banding patterns which do not meetpositive criteria.Criteria for positivity are those recommended byCDC/ASTPHLD. p23=Osp C, z52=blbikuzlrVysw:Sera from individuals with the following may cross reactin the Lyme Line Blot assays: other spirochetal diseases(periodontal disease, leptospirosis, relapsing fever, yaws,and pinta); connective autoimmune (Rheumatoid Arthritis andSystemic Lupus Erythematosus and also individuals withAntinuclear Antibody); other infections (Nikko MountainSpotted Fever; Ratna-Bach Virus, and Cytomegalovirus).Please Note: Lyme immunoblot alone is not recommended forthe diagnosis of Lyme disease. Current guidelines recommendthe use of a two-tiered approach to Lyme serology testingto improve the sensitivity and specificity of testing.[facility] offers test code 479907 Lyme Disease Serology withReflex to aid in the diagnosis of Lyme Disease.Performed at: [address] [id number] Director: Obdulio Ivory MD, Phone: [phone] Serum Borrelia burgdorferi 4 1kD IgG antibody detection by immunoblotOrdered By: Shahab Adams on 09-24-2022 B. burgdorferi 41kD IgG IB Ql (S) Absent . [facility] Serum Borrelia burgdorferi 6 6kD IgG antibody detection by immunoblotOrdered By: Shahab Adams on 09-24-2022 B. burgdorferi 66kD IgG IB Ql (S) Absent . [facility] Synovial fluid Borrelia erik dorferi 45kD IgG antibody detection by immunoblotOrdered By: Shahab Adams on 09-24-2022 B. burgdorferi 45kD IgG IB Ql (Syn fld) Absent . [facility] Synovial fluid Borrelia erik dorferi 58kD IgG antibody detection by immunoblotOrdered By: Shahab dAams on 09-24-2022 B. burgdorferi 58kD IgG IB Ql (Syn fld) Absent . [facility] Absolute lymphocyte countOrd ered By: Dr. Adams on 08-21-2022 Lymphocytes Auto (Unsp spec) [#/Vol] 2.07 10*3/uL 0.83-4.51 [facility] Basophil percentageOrdered B y: Dr. Adams on 08-21-2022 Basophils/100 WBC (Bld) 0.5 % 0-[address] [facility] Bilirubin [Mass/Vol] 0.50 mg/dL 0.20-1.00 [facility] Comment on above: For patients on eltr ombopag therapy, use of Dimension [place] TBIL is not recommended. Chloride [Moles/Vol] 111 mmol/L 98-107 [facility] Eosinophils/100 WBC (Bld) 4.1 % 0-5 [facility] Glucose [Mass/Vol] 103 mg/dL 74-106 [facility] Comment on above: Fasting Glucose resu lt from 100 to 125 mg/dL suggests IMPAIRED HOMEOSTASIS per A.D.A. criteria. Neutrophils (Bld) [#/Vol] 4.7 10*3/uL 2.0-7.7 [facility] Neutrophils/100 WBC (Bld) 58.4 % 47-70 [facility] Potassium [Moles/Vol] 3.5 mmol/L 3.5-5.1 [facility] Protein [Mass/Vol] 6.9 g/dL 6.4-8.2 [facility] Sodium [Moles/Vol] 143 mmol/L 136-145 [facility] WBC (Bld) [#/Vol] 8.1 10*3/uL 4.4-11.0 [facility] Blood erythrocytes count (nu mber/volume)Ordered By: Dr. Adams on 08-21-2022 RBC (Bld) [#/Vol] 4.65 10*6/uL 4.2-5.4 [facility] Blood hemoglobin measurement (mass/volume)Ordered By: Dr. Adams on 08-21-2022 Hemoglobin (Bld) [Mass/Vol] 12.8 g/dL 12.0-15.0 [facility] Blood lymphocytes/100 leukoc ytesOrdered By: Dr. Adams on 08-21-2022 Lymphocytes/100 WBC (Bld) 25.7 % 19-41 [facility] Blood monocytes/100 leukocyt esOrdered By: Dr. Adams on 08-21-2022 Monocytes/100 WBC (Bld) 10.9 % 0-[address] [facility] Blood platelet mean volumeOr dered By: Dr. Adams on 08-21-2022 Platelet mean volume (Bld) [Entitic vol] 10.9 fL 6.2-12.0 [facility] Determination of erythrocyte mean corpuscular volume (MCV)Ordered By: Dr. Adams on 08-21-2022 MCV (RBC) [Entitic vol] 88.6 fL 81-[address] [facility] Hematocrit Auto (Bld) [Volum e fraction]Ordered By: Dr. Adams on 08-21-2022 Hematocrit (Bld) [Volume fraction] 41.2 % 37-47 [facility] Laboratory - Chemistry and C hemistry - challengeOrdered By: Dr. Adams on 08-21-2022 ALP [Catalytic activity/Vol] 92 U/L 45-117 [facility] ALT [Catalytic activity/Vol] 28 U/L 13-56 [facility] CO2 [Moles/Vol] 26.0 mmol/L 21.0-32.0 [facility] Globulin (S) [Mass/Vol] 3.3 g/dL 2.2-4.2 [facility] Urea nitrogen/Creatinine [Mass ratio] 27.7 mg/mg 10-20 [facility] Laboratory - Hematology and Cell countsOrdered By: Dr. Adams on 08-21-2022 Erythrocyte distribution width (RBC) [Entitic vol] 47.9 fL 35.1-43.9 [facility] Erythrocyte distribution width (RBC) [Ratio] 14.7 % 11.6-14.6 [facility] Immature granulocytes/100 WBC (Bld) 0.400 % 0.0-0.9 [facility] Comment on above: IG% - Immature Granu locytes (promyelocytes, myelocytes and metamyelocytes) > 1% indicates that a LEFT SHIFT is Present. MCH (RBC) [Entitic mass] 27.5 pg 27.0-32.0 [facility] Nucleated RBC/100 WBC (Bld) [Ratio] 0 % 0-5 [facility] MCHC Auto (RBC) [Mass/Vol]Or dered By: Dr. Adams on 08-21-2022 MCHC (RBC) [Mass/Vol] 31.1 g/dL 32-36 [facility] No Panel InformationOrdered By: Dr. Adams on 08-21-2022 Estimated GFR (MDRD) Amer 50 mL/min >60 [facility] Comment on above: GFR Calc Estimated GFR (MDRD) Non-Af Amer 41 mL/min >60 [facility] Comment on above: Non- GFR Calc Platelets bldOrdered By: Dr. Adams on 08-21-2022 Platelets (Bld) [#/Vol] 265 10*3/uL 150-450 [facility] Serum or plasma albumin israel urement (mass/volume)Ordered By: Dr. Adams on 08-21-2022 Albumin [Mass/Vol] 3.6 g/dL 3.2-5.0 [facility] Serum or plasma albumin/glob ulin mass ratioOrdered By: Dr. Adams on 08-21-2022 Albumin/Globulin [Mass ratio] 1.1 {ratio} 0.9-2.4 [facility] Serum or plasma calcium israel urement (mass/volume)Ordered By: Dr. Adams on 08-21-2022 Calcium [Mass/Vol] 9.2 mg/dL 8.5-10.1 [facility] Serum or plasma creatinine m easurement (mass/volume)Ordered By: Dr. Adams on 08-21-2022 Creatinine [Mass/Vol] 1.37 mg/dL 0.55-1.02 [facility] Comment on above: The validity of the calculated GFR & GFRAA in patients over 70 years has not been determined. Clinical correlation is essential. Serum or plasma ferritin melissa surement (mass/volume)Ordered By: Dr. Adams on 08-21-2022 Ferritin [Mass/Vol] 29 ng/mL 8-252 [facility] Serum or plasma urea nitroge n measurement (mass/volume)Ordered By: Dr. Adams on 08-21-2022 Urea nitrogen [Mass/Vol] 38 mg/dL 7-18 [facility] Thin prep Papanicolaou smear with manual screeningOrdered By: Dr. Adams on 08-21-2022 Thin prep Papanicolaou smear with manual screening 20 U/L 15-37 [facility] Thin prep Papanicolaou smear with manual screening 6 5-15 [facility] Absolute lymphocyte countOrd ered By: Dr. Adams on 07-31-2022 Lymphocytes Auto (Unsp spec) [#/Vol] 1.11 10*3/uL 0.83-4.51 [facility] Basophil percentageOrdered B y: Dr. Adams on 07-31-2022 Basophils/100 WBC (Bld) 0.5 % 0-1 [facility] Chloride [Moles/Vol] 107 mmol/L 98-107 [facility] Eosinophils/100 WBC (Bld) 3.0 % 0-5 [facility] Glucose [Mass/Vol] 101 mg/dL 74-106 [facility] Comment on above: Fasting Glucose resu lt from 100 to 125 mg/dL suggests IMPAIRED HOMEOSTASIS per A.D.A. criteria. Neutrophils (Bld) [#/Vol] 7.0 10*3/uL 2.0-7.7 [facility] Neutrophils/100 WBC (Bld) 74.6 % 47-70 [facility] Potassium [Moles/Vol] 4.0 mmol/L 3.5-5.1 [facility] Sodium [Moles/Vol] 142 mmol/L 136-145 [facility] WBC (Bld) [#/Vol] 9.4 10*3/uL 4.4-11.0 [facility] Blood erythrocytes count (nu mber/volume)Ordered By: Dr. Adams on 07-31-2022 RBC (Bld) [#/Vol] 4.44 10*6/uL 4.2-5.4 [facility] Blood hemoglobin measurement (mass/volume)Ordered By: Dr. Adams on 07-31-2022 Hemoglobin (Bld) [Mass/Vol] 12.0 g/dL 12.0-15.0 [facility] Blood lymphocytes/100 leukoc ytesOrdered By: Dr. Adams on 07-31-2022 Lymphocytes/100 WBC (Bld) 11.8 % 19-41 [facility] Blood monocytes/100 leukocyt esOrdered By: Dr. Adams on 07-31-2022 Monocytes/100 WBC (Bld) 9.9 % 0-[address] [facility] Blood platelet mean volumeOr dered By: Dr. Adams on 07-31-2022 Platelet mean volume (Bld) [Entitic vol] 10.4 fL 6.2-12.0 [facility] Determination of erythrocyte mean corpuscular volume (MCV)Ordered By: Dr. Adams on 07-31-2022 MCV (RBC) [Entitic vol] 86.5 fL 81-[address] [facility] Hematocrit Auto (Bld) [Volum e fraction]Ordered By: Dr. Adams on 07-31-2022 Hematocrit (Bld) [Volume fraction] 38.4 % 37-47 [facility] Laboratory - Chemistry and C hemistry - challengeOrdered By: Dr. Adams on 07-31-2022 CO2 [Moles/Vol] 29.0 mmol/L 21.0-32.0 [facility] Urea nitrogen/Creatinine [Mass ratio] 17.4 mg/mg 10-20 [facility] Laboratory - Hematology and Cell countsOrdered By: Dr. Adams on 07-31-2022 Erythrocyte distribution width (RBC) [Entitic vol] 43.1 fL 35.1-43.9 [facility] Erythrocyte distribution width (RBC) [Ratio] 13.9 % 11.6-14.6 [facility] Immature granulocytes/100 WBC (Bld) 0.200 % 0.0-0.9 [facility] Comment on above: IG% - Immature Granu locytes (promyelocytes, myelocytes and metamyelocytes) > 1% indicates that a LEFT SHIFT is Present. MCH (RBC) [Entitic mass] 27.0 pg 27.0-32.0 [facility] Nucleated RBC/100 WBC (Bld) [Ratio] 0 % 0-5 [facility] MCHC Auto (RBC) [Mass/Vol]Or dered By: Dr. Adams on 07-31-2022 MCHC (RBC) [Mass/Vol] 31.3 g/dL 32-36 [facility] No Panel InformationOrdered By: Dr. Adams on 07-31-2022 Estimated GFR (MDRD) Amer 45 mL/min >60 [facility] Comment on above: GFR Calc Estimated GFR (MDRD) Non-Af Amer 38 mL/min >60 [facility] Comment on above: Non- GFR Calc Platelets bldOrdered By: Dr. Adams on 07-31-2022 Platelets (Bld) [#/Vol] 238 10*3/uL 150-450 [facility] Serum or plasma calcium israel urement (mass/volume)Ordered By: Dr. Adams on 07-31-2022 Calcium [Mass/Vol] 10.0 mg/dL 8.5-10.1 [facility] Serum or plasma creatinine m easurement (mass/volume)Ordered By: Dr. Adams on 07-31-2022 Creatinine [Mass/Vol] 1.49 mg/dL 0.55-1.02 [facility] Comment on above: The validity of the calculated GFR & GFRAA in patients over 70 years has not been determined. Clinical correlation is essential. Serum or plasma urea nitroge n measurement (mass/volume)Ordered By: Dr. Adams on 07-31-2022 Urea nitrogen [Mass/Vol] 26 mg/dL 7-18 [facility] Thin prep Papanicolaou smear with manual screeningOrdered By: Dr. Adams on 07-31-2022 Thin prep Papanicolaou smear with manual screening 6 5-15 [facility] Iron measurement (mass/mass) Ordered By: Dr. Adams on 07-09-2022 Iron (Unsp spec) [Mass/Mass] 72 ug/dL 50-170 [facility] Laboratory - Chemistry and C hemistry - challengeOrdered By: Dr. Adams on 07-09-2022 Cobalamin (Vitamin B12) [Mass/Vol] 573 pg/mL 211-911 [facility] No Panel InformationOrdered By: Dr. Adams on 07-09-2022 Vitamin D 25-Hydroxy 107.8 ng/mL [facility] Comment on above: Vitamin D 25(OH) Sta tus Range Deficiency <20 ng/mL (50nmol/L) Insufficiency 20 - 30 ng/mL (50 - 75 nmol/L) Sufficiency 30 - 100 ng/mL (75 - 250 nmol/L) Toxicity >100 ng/mL (>250 nmol/L)Evidence suggests that patients undergoing fluorescein dye angiography can retain small amounts of fluorescein in the body for up to 48 to 72 hours post-treatment. In the cases of patients with renal insufficiency, retention could be much longer. Samples containing fluorescein can produce falsely elevated values when tested with the [employer] Vitamin D assay. With fluorescein interference, observed Vitamin D values can be as high as >150 ng/mL (>375 nmol/L). Samples should be resubmitted post fluorescein clearance to ensure there is no interference with Vitamin D test results. Serum or plasma ferritin melissa surement (mass/volume)Ordered By: Dr. Adams on 07-09-2022 Ferritin [Mass/Vol] 26 ng/mL 8-252 [facility] Bacterial tissue aerobic cul tureOrdered By: Dr. Villalobos on 06-11-2022 Bacteria identified Aer cx Nom (Tiss) No growth aerobically. [facility] Anaerobic cultureOrdered By: Dr. Villalobos on 06-08-2022 Bacteria identified Anaer cx Nom (Unsp spec) No anaerobic bacteria isolated. [facility] Laboratory - Microbiology an d Antimicrobial susceptibilityOrdered By: Dr. Haile on 06-07-2022 Bacteria identified Cx Nom (Bld) No growth in 5 days. [facility] Absolute lymphocyte countOrd ered By: Dr. Strickland on 06-04-2022 Lymphocytes Auto (Unsp spec) [#/Vol] 1.02 10*3/uL 0.83-4.51 [facility] Basophil percentageOrdered B y: Dr. Strickland on 06-04-2022 Basophils/100 WBC (Bld) 0.4 % 0-[address] [facility] Chloride [Moles/Vol] 107 mmol/L 98-107 [facility] Eosinophils/100 WBC (Bld) 7.7 % 0-5 [facility] Glucose [Mass/Vol] 103 mg/dL 74-106 [facility] Comment on above: Fasting Glucose resu lt from 100 to 125 mg/dL suggests IMPAIRED HOMEOSTASIS per A.D.A. criteria. Neutrophils (Bld) [#/Vol] 5.4 10*3/uL 2.0-7.7 [facility] Neutrophils/100 WBC (Bld) 65.8 % 47-70 [facility] Potassium [Moles/Vol] 3.2 mmol/L 3.5-5.1 [facility] Sodium [Moles/Vol] 140 mmol/L 136-145 [facility] WBC (Bld) [#/Vol] 8.2 10*3/uL 4.4-11.0 [facility] Blood erythrocytes count (nu mber/volume)Ordered By: Dr. Strickland on 06-04-2022 RBC (Bld) [#/Vol] 3.90 10*6/uL 4.2-5.4 [facility] Blood hemoglobin measurement (mass/volume)Ordered By: Dr. Strickland on 06-04-2022 Hemoglobin (Bld) [Mass/Vol] 10.7 g/dL 12.0-15.0 [facility] Blood lymphocytes/100 leukoc ytesOrdered By: Dr. Strickland on 06-04-2022 Lymphocytes/100 WBC (Bld) 12.5 % 19-41 [facility] Blood monocytes/100 leukocyt esOrdered By: Dr. Strickland on 06-04-2022 Monocytes/100 WBC (Bld) 13.4 % 0-[address] [facility] Blood platelet mean volumeOr dered By: Dr. Strickland on 06-04-2022 Platelet mean volume (Bld) [Entitic vol] 9.5 fL 6.2-12.0 [facility] Determination of erythrocyte mean corpuscular volume (MCV)Ordered By: Dr. Strickland on 06-04-2022 MCV (RBC) [Entitic vol] 86.7 fL 81-[address] [facility] Hematocrit Auto (Bld) [Volum e fraction]Ordered By: Dr. Strickland on 06-04-2022 Hematocrit (Bld) [Volume fraction] 33.8 % 37-47 [facility] Laboratory - Chemistry and C hemistry - challengeOrdered By: Dr. Strickland on 06-04-2022 CO2 [Moles/Vol] 27.0 mmol/L 21.0-32.0 [facility] Urea nitrogen/Creatinine [Mass ratio] 13.1 mg/mg 10-20 [facility] Laboratory - Hematology and Cell countsOrdered By: Dr. Strickland on 06-04-2022 Erythrocyte distribution width (RBC) [Entitic vol] 39.1 fL 35.1-43.9 [facility] Erythrocyte distribution width (RBC) [Ratio] 12.2 % 11.6-14.6 [facility] Immature granulocytes/100 WBC (Bld) 0.200 % 0.0-0.9 [facility] Comment on above: IG% - Immature Granu locytes (promyelocytes, myelocytes and metamyelocytes) > 1% indicates that a LEFT SHIFT is Present. MCH (RBC) [Entitic mass] 27.4 pg 27.0-32.0 [facility] Nucleated RBC/100 WBC (Bld) [Ratio] 0 % 0-5 [facility] MCHC Auto (RBC) [Mass/Vol]Or dered By: Dr. Strickland on 06-04-2022 MCHC (RBC) [Mass/Vol] 31.7 g/dL 32-36 [facility] No Panel InformationOrdered By: Dr. Strickland on 06-04-2022 Estimated Creatinine Clearance Calc 39.86 ml/min [facility] Estimated GFR (MDRD) Amer 53 mL/min >60 [facility] Comment on above: GFR Calc Estimated GFR (MDRD) Non-Af Amer 44 mL/min >60 [facility] Comment on above: Non- GFR Calc Platelets bldOrdered By: Dr. Strickland on 06-04-2022 Platelets (Bld) [#/Vol] 245 10*3/uL 150-450 [facility] Routine wound cultureOrdered By: Dr. Villalobos on 06-04-2022 Bacteria identified Cx Nom (Wound) No growth aerobically. [facility] Serum or plasma C reactive p rotein measurement (mass/volume)Ordered By: Dr. Strickland on 06-04-2022 CRP [Mass/Vol] 34.30 mg/L 0.0-3.0 [facility] Comment on above: C-Reactive Protein ( CRP) provides useful information for thediagnosis, therapy and monitoring of inflammatory processesand associated diseases. For the evaluation of Relative Riskfor Cardiovascular Disease, a High Sensitivity CRP (HSCRP)should be ordered. Serum or plasma calcium israel urement (mass/volume)Ordered By: Dr. Strickland on 06-04-2022 Calcium [Mass/Vol] 9.3 mg/dL 8.5-10.1 [facility] Serum or plasma creatinine m easurement (mass/volume)Ordered By: Dr. Strickland on 06-04-2022 Creatinine [Mass/Vol] 1.30 mg/dL 0.55-1.02 [facility] Comment on above: The validity of the calculated GFR & GFRAA in patients over 70 years has not been determined. Clinical correlation is essential. Serum or plasma urea nitroge n measurement (mass/volume)Ordered By: Dr. Strickland on 06-04-2022 Urea nitrogen [Mass/Vol] 17 mg/dL 7-18 [facility] Thin prep Papanicolaou smear with manual screeningOrdered By: Dr. Strickland on 06-04-2022 Thin prep Papanicolaou smear with manual screening 6 5-15 [facility] Absolute lymphocyte countOrd ered By: Dr. Strickland on 06-03-2022 Lymphocytes Auto (Unsp spec) [#/Vol] 1.06 10*3/uL 0.83-4.51 [facility] Basophil percentageOrdered B y: Dr. Strickland on 06-03-2022 Basophils/100 WBC (Bld) 0.5 % 0-1 [facility] Chloride [Moles/Vol] 109 mmol/L 98-107 [facility] Eosinophils/100 WBC (Bld) 6.1 % 0-5 [facility] Glucose [Mass/Vol] 85 mg/dL 74-106 [facility] Neutrophils (Bld) [#/Vol] 5.5 10*3/uL 2.0-7.7 [facility] Neutrophils/100 WBC (Bld) 66.8 % 47-70 [facility] Potassium [Moles/Vol] 3.7 mmol/L 3.5-5.1 [facility] Sodium [Moles/Vol] 140 mmol/L 136-145 [facility] WBC (Bld) [#/Vol] 8.2 10*3/uL 4.4-11.0 [facility] Blood erythrocytes count (nu mber/volume)Ordered By: Dr. Strickland on 06-03-2022 RBC (Bld) [#/Vol] 4.11 10*6/uL 4.2-5.4 [facility] Blood hemoglobin measurement (mass/volume)Ordered By: Dr. Strickland on 06-03-2022 Hemoglobin (Bld) [Mass/Vol] 11.4 g/dL 12.0-15.0 [facility] Blood lymphocytes/100 leukoc ytesOrdered By: Dr. Strickland on 06-03-2022 Lymphocytes/100 WBC (Bld) 13.0 % 19-41 [facility] Blood monocytes/100 leukocyt esOrdered By: Dr. Strickland on 06-03-2022 Monocytes/100 WBC (Bld) 13.2 % 0-[address] [facility] Blood platelet mean volumeOr dered By: Dr. Strickland on 06-03-2022 Platelet mean volume (Bld) [Entitic vol] 10.2 fL 6.2-12.0 [facility] Determination of erythrocyte mean corpuscular volume (MCV)Ordered By: Dr. Strickland on 06-03-2022 MCV (RBC) [Entitic vol] 89.5 fL 81-[address] [facility] Gram stain for investigation of transfusion reactionOrdered By: Dr. Villalobos on 06-03-2022 Microscopic observation Gram stain Nom (Unsp spec) [facility] Microscopic observation Gram stain Nom (Unsp spec) [facility] Hematocrit Auto (Bld) [Volum e fraction]Ordered By: Dr. Strickland on 06-03-2022 Hematocrit (Bld) [Volume fraction] 36.8 % 37-47 [facility] Laboratory - Chemistry and C hemistry - challengeOrdered By: Dr. Strickland on 06-03-2022 CO2 [Moles/Vol] 26.0 mmol/L 21.0-32.0 [facility] Urea nitrogen/Creatinine [Mass ratio] 14.2 mg/mg 10-20 [facility] Laboratory - Hematology and Cell countsOrdered By: Dr. Strickland on 06-03-2022 Erythrocyte distribution width (RBC) [Entitic vol] 40.4 fL 35.1-43.9 [facility] Erythrocyte distribution width (RBC) [Ratio] 12.4 % 11.6-14.6 [facility] Immature granulocytes/100 WBC (Bld) 0.400 % 0.0-0.9 [facility] Comment on above: IG% - Immature Granu locytes (promyelocytes, myelocytes and metamyelocytes) > 1% indicates that a LEFT SHIFT is Present. MCH (RBC) [Entitic mass] 27.7 pg 27.0-32.0 [facility] Nucleated RBC/100 WBC (Bld) [Ratio] 0 % 0-5 [facility] MCHC Auto (RBC) [Mass/Vol]Or dered By: Dr. Strickland on 06-03-2022 MCHC (RBC) [Mass/Vol] 31.0 g/dL 32-36 [facility] No Panel InformationOrdered By: Dr. Strickland on 06-03-2022 Estimated Creatinine Clearance Calc 36.75 ml/min [facility] Estimated GFR (MDRD) Amer 48 mL/min >60 [facility] Comment on above: GFR Calc Estimated GFR (MDRD) Non-Af Amer 40 mL/min >60 [facility] Comment on above: Non- GFR Calc Platelets bldOrdered By: Dr. Strickland on 06-03-2022 Platelets (Bld) [#/Vol] 268 10*3/uL 150-450 [facility] Serum or plasma C reactive p rotein measurement (mass/volume)Ordered By: Dr. Strickland on 06-03-2022 CRP [Mass/Vol] 16.80 mg/L 0.0-3.0 [facility] Comment on above: C-Reactive Protein ( CRP) provides useful information for thediagnosis, therapy and monitoring of inflammatory processesand associated diseases. For the evaluation of Relative Riskfor Cardiovascular Disease, a High Sensitivity CRP (HSCRP)should be ordered. Serum or plasma calcium israel urement (mass/volume)Ordered By: Dr. Strickland on 06-03-2022 Calcium [Mass/Vol] 8.8 mg/dL 8.5-10.1 [facility] Serum or plasma creatinine m easurement (mass/volume)Ordered By: Dr. Strickland on 06-03-2022 Creatinine [Mass/Vol] 1.41 mg/dL 0.55-1.02 [facility] Comment on above: The validity of the calculated GFR & GFRAA in patients over 70 years has not been determined. Clinical correlation is essential. Serum or plasma urea nitroge n measurement (mass/volume)Ordered By: Dr. Strickland on 06-03-2022 Urea nitrogen [Mass/Vol] 20 mg/dL 7-18 [facility] Thin prep Papanicolaou smear with manual screeningOrdered By: Dr. Strickland on 06-03-2022 Thin prep Papanicolaou smear with manual screening 5 5-15 [facility] Anaerobic cultureOrdered By: Josafat Villalobos on 06-02-2022 Bacteria identified Anaer cx Nom (Unsp spec) No anaerobic bacteria isolated. [facility] Bacterial tissue aerobic cul tureOrdered By: Josafat Villalobos on 06-02-2022 Bacteria identified Aer cx Nom (Tiss) No growth aerobically. [facility] Basophil percentageOrdered B y: Dr. Strickland on 06-02-2022 Basophil percentage 10-25 SEEN /hpf 0-5 [facility] Bilirubin [Mass/Vol] 0.60 mg/dL 0.20-1.00 [facility] Comment on above: For patients on eltr ombopag therapy, use of Dimension [place] TBIL is not recommended. Protein [Mass/Vol] 6.0 g/dL 6.4-8.2 [facility] Bilirubin Test strip Ql (U)O rdered By: Dr. Strickland on 06-02-2022 Bilirubin Ql (U) Negative Negative [facility] Gram stain for investigation of transfusion reactionOrdered By: Josafat Villalobos on 06-02-2022 Microscopic observation Gram stain Nom (Unsp spec) [facility] INR in Blood by Coagulation assayOrdered By: Dr. Strickland on 06-02-2022 INR Coag (Bld) [Relative time] 1.1 {INR} [facility] Ketones Test strip Ql (U)Ord ered By: Dr. Strickland on 06-02-2022 Ketones Ql (U) Negative Negative [facility] Laboratory - Chemistry and C hemistry - challengeOrdered By: Dr. Strickland on 06-02-2022 ALP [Catalytic activity/Vol] 64 U/L 45-117 [facility] ALT [Catalytic activity/Vol] 25 U/L 13-56 [facility] Globulin (S) [Mass/Vol] 3.1 g/dL 2.2-4.[address] [facility] Laboratory - CoagulationOrde red By: Dr. Strickland on 06-02-2022 PT Coag (PPP) [Time] 14.0 s 11.7-14.9 [facility] Mucus LM Ql (Urine sed)Order ed By: Dr. Strickland on 06-02-2022 Mucus Ql (Urine sed) 0 SEEN /hpf [facility] Nitrite Test strip Ql (U)Ord ered By: Dr. Strickland on 06-02-2022 Nitrite Ql (U) Negative Negative [facility] No Panel InformationOrdered By: Dr. Strickland on 06-02-2022 Urine Transitional Epithelial Cells 0-5 SEEN /hpf 0-5 [facility] Thyroid Stimulating Hormone (TSH) 2.46 uIU/mL 0.358-3.74 [facility] Protein Test strip Ql (U)Ord ered By: Dr. Strickland on 06-02-2022 Protein Ql (U) Negative Negative [facility] Serum or plasma albumin israel urement (mass/volume)Ordered By: Dr. Strickland on 06-02-2022 Albumin [Mass/Vol] 2.9 g/dL 3.2-5.0 [facility] Serum or plasma albumin/glob ulin mass ratioOrdered By: Dr. Strickland on 06-02-2022 Albumin/Globulin [Mass ratio] 0.9 {ratio} 0.9-2.4 [facility] Squamous epithelial cells de tection in urine sediment by light microscopyOrdered By: Dr. Strickland on 06-02-2022 Epithelial cells.squamous LM Ql (Urine sed) 0-5 SEEN /hpf 5-10 [facility] Thin prep Papanicolaou smear with manual screeningOrdered By: Dr. Strickland on 06-02-2022 Thin prep Papanicolaou smear with manual screening 29 U/L 15-37 [facility] Urine blood detectionOrdered By: Dr. Strickland on 06-02-2022 RBC Ql (U) Negative Negative [facility] RBC Ql (U) 0 SEEN /hpf 0-5 [facility] Urine clarityOrdered By: Dr. Strickland on 06-02-2022 Clarity (U) Clear Clear [facility] Urine color determinationOrd ered By: Dr. Strickland on 06-02-2022 Color (U) Yellow Yellow [facility] Urine glucose detectionOrder ed By: Dr. Strickland on 06-02-2022 Glucose Ql (U) Normal mg/dl Normal [facility] Urine leukocyte esterase det ection by dipstickOrdered By: Dr. Strickland on 06-02-2022 Leukocyte esterase Test strip Ql (U) 500 /ul Negative [facility] Urine pHOrdered By: Dr. Kris miranda on 06-02-2022 pH (U) 5.0 [pH] 5.0 - 8.0 [facility] Urine sediment bacteria coun t by microscopy (number/high power field)Ordered By: Dr. Strickland on 06-02-2022 Bacteria LM.HPF (Urine sed) [#/Area] 0 /[HPF] None Seen [facility] Urine specific gravity measu rementOrdered By: Dr. Strickland on 06-02-2022 Specific gravity (U) [Rel density] 1.015 1.002-1.03 0 [facility] Urobilinogen Auto test strip Ql (U)Ordered By: Dr. Strickland on 06-02-2022 Urobilinogen Ql (U) Normal mg/dl Normal [facility] Absolute lymphocyte countOrd ered By: Dr. Haile on 06-01-2022 Lymphocytes Auto (Unsp spec) [#/Vol] 1.42 10*3/uL 0.83-4.51 [facility] Basophil percentageOrdered B y: Dr. Haile on 06-01-2022 Basophils/100 WBC (Bld) 0.7 % 0-[address] [facility] Chloride [Moles/Vol] 108 mmol/L 98-107 [facility] Eosinophils/100 WBC (Bld) 6.3 % 0-5 [facility] Glucose [Mass/Vol] 87 mg/dL 74-106 [facility] Lactate [Moles/Vol] 1.3 mmol/L 0.4-2.0 [facility] Neutrophils (Bld) [#/Vol] 7.3 10*3/uL 2.0-7.7 [facility] Neutrophils/100 WBC (Bld) 68.9 % 47-70 [facility] Potassium [Moles/Vol] 4.2 mmol/L 3.5-5.1 [facility] Sodium [Moles/Vol] 140 mmol/L 136-145 [facility] WBC (Bld) [#/Vol] 10.6 10*3/uL 4.4-11.0 [facility] Blood erythrocytes count (nu mber/volume)Ordered By: Dr. Haile on 06-01-2022 RBC (Bld) [#/Vol] 4.75 10*6/uL 4.2-5.4 [facility] Blood hemoglobin measurement (mass/volume)Ordered By: Dr. Haile on 06-01-2022 Hemoglobin (Bld) [Mass/Vol] 13.2 g/dL 12.0-15.0 [facility] Blood lymphocytes/100 leukoc ytesOrdered By: Dr. Haile on 06-01-2022 Lymphocytes/100 WBC (Bld) 13.4 % 19-41 [facility] Blood monocytes/100 leukocyt esOrdered By: Dr. Haile on 06-01-2022 Monocytes/100 WBC (Bld) 10.3 % 0-[address] [facility] Blood platelet mean volumeOr dered By: Dr. Haile on 06-01-2022 Platelet mean volume (Bld) [Entitic vol] 9.9 fL 6.2-12.0 [facility] Determination of erythrocyte mean corpuscular volume (MCV)Ordered By: Dr. Haile on 06-01-2022 MCV (RBC) [Entitic vol] 87.8 fL 81-[address] [facility] Erythrocyte sedimentation ra teOrdered By: Dr. Haile on 06-01-2022 ESR (Bld) [Velocity] 26 mm/h 0-30 [facility] Hematocrit Auto (Bld) [Volum e fraction]Ordered By: Dr. Haile on 06-01-2022 Hematocrit (Bld) [Volume fraction] 41.7 % 37-47 [facility] Laboratory - Chemistry and C hemistry - challengeOrdered By: Dr. Haile on 06-01-2022 CO2 [Moles/Vol] 28.0 mmol/L 21.0-32.0 [facility] Urea nitrogen/Creatinine [Mass ratio] 15.7 mg/mg 10-20 [facility] Laboratory - Hematology and Cell countsOrdered By: Dr. Haile on 06-01-2022 Erythrocyte distribution width (RBC) [Entitic vol] 39.4 fL 35.1-43.9 [facility] Erythrocyte distribution width (RBC) [Ratio] 12.2 % 11.6-14.6 [facility] Immature granulocytes/100 WBC (Bld) 0.400 % 0.0-0.9 [facility] Comment on above: IG% - Immature Granu locytes (promyelocytes, myelocytes and metamyelocytes) > 1% indicates that a LEFT SHIFT is Present. MCH (RBC) [Entitic mass] 27.8 pg 27.0-32.0 [facility] Nucleated RBC/100 WBC (Bld) [Ratio] 0 % 0-5 [facility] Laboratory - Microbiology an d Antimicrobial susceptibilityOrdered By: Shakira Haile on 06-01-2022 Bacteria identified Cx Nom (Bld) No growth in 5 days. [facility] MCHC Auto (RBC) [Mass/Vol]Or dered By: Dr. Haile on 06-01-2022 MCHC (RBC) [Mass/Vol] 31.7 g/dL 32-36 [facility] No Panel InformationOrdered By: Dr. Haile on 06-01-2022 Estimated Creatinine Clearance Calc 37.01 ml/min [facility] Estimated GFR (MDRD) Amer 49 mL/min >60 [facility] Comment on above: GFR Calc Estimated GFR (MDRD) Non-Af Amer 40 mL/min >60 [facility] Comment on above: Non- GFR Calc Platelets bldOrdered By: Dr. Haile on 06-01-2022 Platelets (Bld) [#/Vol] 318 10*3/uL 150-450 [facility] Serum or plasma C reactive p rotein measurement (mass/volume)Ordered By: Dr. Haile on 06-01-2022 CRP [Mass/Vol] 15.50 mg/L 0.0-3.0 [facility] Comment on above: C-Reactive Protein ( CRP) provides useful information for thediagnosis, therapy and monitoring of inflammatory processesand associated diseases. For the evaluation of Relative Riskfor Cardiovascular Disease, a High Sensitivity CRP (HSCRP)should be ordered. Serum or plasma calcium israel urement (mass/volume)Ordered By: Dr. Haile on 06-01-2022 Calcium [Mass/Vol] 9.8 mg/dL 8.5-10.1 [facility] Serum or plasma creatinine m easurement (mass/volume)Ordered By: Dr. Haile on 06-01-2022 Creatinine [Mass/Vol] 1.40 mg/dL 0.55-1.02 [facility] Comment on above: The validity of the calculated GFR & GFRAA in patients over 70 years has not been determined. Clinical correlation is essential. Serum or plasma urea nitroge n measurement (mass/volume)Ordered By: Dr. Haile on 06-01-2022 Urea nitrogen [Mass/Vol] 22 mg/dL 7-18 [facility] Thin prep Papanicolaou smear with manual screeningOrdered By: Dr. Haile on 06-01-2022 Thin prep Papanicolaou smear with manual screening 4 5-15 [facility] Erythrocyte sedimentation ra teOrdered By: Dr. Adams on 05-29-2022 ESR (Bld) [Velocity] 12 mm/h 0-30 [facility] Serum or plasma C reactive p rotein measurement (mass/volume)Ordered By: Dr. Adams on 05-29-2022 CRP [Mass/Vol] 9.12 mg/L 0.0-3.0 [facility] Comment on above: C-Reactive Protein ( CRP) provides useful information for thediagnosis, therapy and monitoring of inflammatory processesand associated diseases. For the evaluation of Relative Riskfor Cardiovascular Disease, a High Sensitivity CRP (HSCRP)should be ordered. Serum or plasma cortisol melissa surement (mass/volume)Ordered By: Dr. Adams on 05-29-2022 Cortisol [Mass/Vol] 5.90 ug/dL 3.44-22.45 [facility] Comment on above: Adult (AM) 5.27 - 22 .45 ug/dL Adult (PM) 3.44 - 16.76 ug/dLPlease note revised CORTISOL reference range effective 2019. Bacteria identified Cx Nom ( Wound)Ordered By: Dr. Adams on 05-12-2022 Wound Culture Pseudomonas aeruginosa [facility] Absolute lymphocyte countOrd ered By: Dr. Adams on 05-10-2022 Lymphocytes Auto (Unsp spec) [#/Vol] 1.50 10*3/uL 0.83-4.51 [facility] Basophil percentageOrdered B y: Dr. Adams on 05-10-2022 Basophils/100 WBC (Bld) 0.7 % 0-[address] [facility] Bilirubin [Mass/Vol] 0.40 mg/dL 0.20-1.00 [facility] Comment on above: For patients on eltr ombopag therapy, use of Dimension [place] TBIL is not recommended. Chloride [Moles/Vol] 107 mmol/L 98-107 [facility] Eosinophils/100 WBC (Bld) 5.0 % 0-5 [facility] Glucose [Mass/Vol] 91 mg/dL 74-106 [facility] Neutrophils (Bld) [#/Vol] 4.1 10*3/uL 2.0-7.7 [facility] Neutrophils/100 WBC (Bld) 58.8 % 47-70 [facility] Potassium [Moles/Vol] 4.1 mmol/L 3.5-5.1 [facility] Protein [Mass/Vol] 7.0 g/dL 6.4-8.2 [facility] Sodium [Moles/Vol] 140 mmol/L 136-145 [facility] WBC (Bld) [#/Vol] 7.0 10*3/uL 4.4-11.0 [facility] Blood erythrocytes count (nu mber/volume)Ordered By: Dr. Adams on 05-10-2022 RBC (Bld) [#/Vol] 4.45 10*6/uL 4.2-5.4 [facility] Blood hemoglobin measurement (mass/volume)Ordered By: Dr. Adams on 05-10-2022 Hemoglobin (Bld) [Mass/Vol] 12.7 g/dL 12.0-15.0 [facility] Blood lymphocytes/100 leukoc ytesOrdered By: Dr. Adams on 05-10-2022 Lymphocytes/100 WBC (Bld) 21.4 % 19-41 [facility] Blood monocytes/100 leukocyt esOrdered By: Dr. Adams on 05-10-2022 Monocytes/100 WBC (Bld) 13.8 % 0-[address] [facility] Blood platelet mean volumeOr dered By: Dr. Adams on 05-10-2022 Platelet mean volume (Bld) [Entitic vol] 10.1 fL 6.2-12.0 [facility] Determination of erythrocyte mean corpuscular volume (MCV)Ordered By: Dr. Adams on 05-10-2022 MCV (RBC) [Entitic vol] 88.8 fL 81-[address] [facility] Gram stain for investigation of transfusion reactionOrdered By: Dr. Adams on 05-10-2022 Microscopic observation Gram stain Nom (Unsp spec) [facility] Hematocrit Auto (Bld) [Volum e fraction]Ordered By: Dr. Adams on 05-10-2022 Hematocrit (Bld) [Volume fraction] 39.5 % 37-47 [facility] Laboratory - Chemistry and C hemistry - challengeOrdered By: Dr. Adams on 05-10-2022 ALP [Catalytic activity/Vol] 85 U/L 45-117 [facility] ALT [Catalytic activity/Vol] 30 U/L 13-56 [facility] CO2 [Moles/Vol] 28.0 mmol/L 21.0-32.0 [facility] Globulin (S) [Mass/Vol] 3.7 g/dL 2.2-4.[address] [facility] Urea nitrogen/Creatinine [Mass ratio] 26.1 mg/mg 10-20 [facility] Laboratory - Hematology and Cell countsOrdered By: Dr. Adams on 05-10-2022 Erythrocyte distribution width (RBC) [Entitic vol] 39.9 fL 35.1-43.9 [facility] Erythrocyte distribution width (RBC) [Ratio] 12.3 % 11.6-14.6 [facility] Immature granulocytes/100 WBC (Bld) 0.300 % 0.0-0.9 [facility] Comment on above: IG% - Immature Granu locytes (promyelocytes, myelocytes and metamyelocytes) > 1% indicates that a LEFT SHIFT is Present. MCH (RBC) [Entitic mass] 28.5 pg 27.0-32.0 [facility] Nucleated RBC/100 WBC (Bld) [Ratio] 0 % 0-5 [facility] MCHC Auto (RBC) [Mass/Vol]Or dered By: Dr. Adams on 05-10-2022 MCHC (RBC) [Mass/Vol] 32.2 g/dL 32-36 [facility] No Panel InformationOrdered By: Dr. Adams on 05-10-2022 Estimated GFR (MDRD) Amer 64 mL/min >60 [facility] Comment on above: GFR Calc Estimated GFR (MDRD) Non-Af Amer 53 mL/min >60 [facility] Comment on above: Non- GFR Calc Platelets bldOrdered By: Dr. Adams on 05-10-2022 Platelets (Bld) [#/Vol] 329 10*3/uL 150-450 [facility] Serum or plasma albumin israel urement (mass/volume)Ordered By: Dr. Adams on 05-10-2022 Albumin [Mass/Vol] 3.3 g/dL 3.2-5.0 [facility] Serum or plasma albumin/glob ulin mass ratioOrdered By: Dr. Adams on 05-10-2022 Albumin/Globulin [Mass ratio] 0.9 {ratio} 0.9-2.4 [facility] Serum or plasma calcium israel urement (mass/volume)Ordered By: Dr. Adams on 05-10-2022 Calcium [Mass/Vol] 9.7 mg/dL 8.5-10.1 [facility] Serum or plasma cortisol melissa surement (mass/volume)Ordered By: Dr. Adams on 05-10-2022 Cortisol [Mass/Vol] 10.00 ug/dL 3.44-22.45 [facility] Comment on above: Adult (AM) 5.27 - 22 .45 ug/dL Adult (PM) 3.44 - 16.76 ug/dLPlease note revised CORTISOL reference range effective 2019. Serum or plasma creatinine m easurement (mass/volume)Ordered By: Dr. Adams on 05-10-2022 Creatinine [Mass/Vol] 1.11 mg/dL 0.55-1.02 [facility] Comment on above: The validity of the calculated GFR & GFRAA in patients over 70 years has not been determined. Clinical correlation is essential. Serum or plasma urea nitroge n measurement (mass/volume)Ordered By: Dr. Adams on 05-10-2022 Urea nitrogen [Mass/Vol] 29 mg/dL 7-18 [facility] Thin prep Papanicolaou smear with manual screeningOrdered By: Dr. Adams on 05-10-2022 Thin prep Papanicolaou smear with manual screening 32 U/L 15-37 [facility] Thin prep Papanicolaou smear with manual screening 5 5-15 [facility] Laboratory - Chemistry and C hemistry - challengeOrdered By: Dr. Ochoa on 03-24-2022 Free T4 [Mass/Vol] 1.26 ng/dL 0.76-1.46 [facility] No Panel InformationOrdered By: Dr. Ochoa on 03-24-2022 Thyroid Stimulating Hormone (TSH) 1.37 uIU/mL 0.358-3.74 [facility] Absolute lymphocyte countOrd ered By: Dr. Montanez on 12-12-2021 Lymphocytes Auto (Unsp spec) [#/Vol] 1.72 10*3/uL 0.83-4.51 [facility] Basophil percentageOrdered B y: Dr. Montanez on 12-12-2021 Basophils/100 WBC (Bld) 0.5 % 0-[address] [facility] Bilirubin [Mass/Vol] 0.30 mg/dL 0.20-1.00 [facility] Comment on above: For patients on eltr ombopag therapy, use of Dimension [place] TBIL is not recommended. Chloride [Moles/Vol] 109 mmol/L 98-107 [facility] Eosinophils/100 WBC (Bld) 2.8 % 0-5 [facility] Glucose [Mass/Vol] 106 mg/dL 74-106 [facility] Comment on above: Fasting Glucose resu lt from 100 to 125 mg/dL suggests IMPAIRED HOMEOSTASIS per A.D.A. criteria. Neutrophils (Bld) [#/Vol] 5.0 10*3/uL 2.0-7.7 [facility] Neutrophils/100 WBC (Bld) 61.9 % 47-70 [facility] Potassium [Moles/Vol] 4.0 mmol/L 3.5-5.1 [facility] Protein [Mass/Vol] 7.0 g/dL 6.4-8.2 [facility] Sodium [Moles/Vol] 143 mmol/L 136-145 [facility] WBC (Bld) [#/Vol] 8.1 10*3/uL 4.4-11.0 [facility] Blood erythrocytes count (nu mber/volume)Ordered By: Dr. Montanez on 12-12-2021 RBC (Bld) [#/Vol] 4.54 10*6/uL 4.2-5.4 [facility] Blood hemoglobin measurement (mass/volume)Ordered By: Dr. Montanez on 12-12-2021 Hemoglobin (Bld) [Mass/Vol] 13.6 g/dL 12.0-15.0 [facility] Blood lymphocytes/100 leukoc ytesOrdered By: Dr. Montanez on 12-12-2021 Lymphocytes/100 WBC (Bld) 21.2 % 19-41 [facility] Blood monocytes/100 leukocyt esOrdered By: Dr. Montanez on 12-12-2021 Monocytes/100 WBC (Bld) 13.2 % 0-[address] [facility] Blood platelet mean volumeOr dered By: Dr. Montanez on 12-12-2021 Platelet mean volume (Bld) [Entitic vol] 10.5 fL 6.2-12.0 [facility] Determination of erythrocyte mean corpuscular volume (MCV)Ordered By: Dr. Montanez on 12-12-2021 MCV (RBC) [Entitic vol] 92.7 fL 81-[address] [facility] Hematocrit Auto (Bld) [Volum e fraction]Ordered By: Dr. Montanez on 12-12-2021 Hematocrit (Bld) [Volume fraction] 42.1 % 37-47 [facility] Laboratory - Chemistry and C hemistry - challengeOrdered By: Dr. Montanez on 12-12-2021 ALP [Catalytic activity/Vol] 75 U/L 45-117 [facility] ALT [Catalytic activity/Vol] 30 U/L 13-56 [facility] CO2 [Moles/Vol] 28.0 mmol/L 21.0-32.0 [facility] Globulin (S) [Mass/Vol] 3.5 g/dL 2.2-4.[address] [facility] Urea nitrogen/Creatinine [Mass ratio] 21.1 mg/mg 10-20 [facility] Laboratory - Hematology and Cell countsOrdered By: Dr. Montanez on 12-12-2021 Erythrocyte distribution width (RBC) [Entitic vol] 44.3 fL 35.1-43.9 [facility] Erythrocyte distribution width (RBC) [Ratio] 13.0 % 11.6-14.6 [facility] Immature granulocytes/100 WBC (Bld) 0.400 % 0.0-0.9 [facility] Comment on above: IG% - Immature Granu locytes (promyelocytes, myelocytes and metamyelocytes) > 1% indicates that a LEFT SHIFT is Present. MCH (RBC) [Entitic mass] 30.0 pg 27.0-32.0 [facility] Nucleated RBC/100 WBC (Bld) [Ratio] 0 % 0-5 [facility] MCHC Auto (RBC) [Mass/Vol]Or dered By: Dr. Montanez on 12-12-2021 MCHC (RBC) [Mass/Vol] 32.3 g/dL 32-36 [facility] No Panel InformationOrdered By: Dr. Montanez on 12-12-2021 Estimated GFR (MDRD) Amer 57 mL/min >60 [facility] Comment on above: GFR Calc Estimated GFR (MDRD) Non-Af Amer 47 mL/min >60 [facility] Comment on above: Non- GFR Calc Platelets bldOrdered By: Dr. Montanez on 12-12-2021 Platelets (Bld) [#/Vol] 328 10*3/uL 150-450 [facility] Serum or plasma albumin israel urement (mass/volume)Ordered By: Dr. Montanez on 12-12-2021 Albumin [Mass/Vol] 3.5 g/dL 3.2-5.0 [facility] Serum or plasma albumin/glob ulin mass ratioOrdered By: Dr. Montanez on 12-12-2021 Albumin/Globulin [Mass ratio] 1.0 {ratio} 0.9-2.4 [facility] Serum or plasma calcium israel urement (mass/volume)Ordered By: Dr. Montanez on 12-12-2021 Calcium [Mass/Vol] 9.2 mg/dL 8.5-10.1 [facility] Serum or plasma creatinine m easurement (mass/volume)Ordered By: Dr. Montanez on 12-12-2021 Creatinine [Mass/Vol] 1.23 mg/dL 0.55-1.02 [facility] Comment on above: The validity of the calculated GFR & GFRAA in patients over 70 years has not been determined. Clinical correlation is essential. Serum or plasma urea nitroge n measurement (mass/volume)Ordered By: Dr. Montanez on 12-12-2021 Urea nitrogen [Mass/Vol] 26 mg/dL 7-18 [facility] Thin prep Papanicolaou smear with manual screeningOrdered By: Dr. Montanez on 12-12-2021 Thin prep Papanicolaou smear with manual screening 24 U/L 15-37 [facility] Thin prep Papanicolaou smear with manual screening 6 5-15 [facility] Absolute lymphocyte counton 06-14-2021 Lymphocytes Auto (Unsp spec) [#/Vol] 1.34 10*3/uL 0.83-4.51 [facility] Work Phone: [phone] Basophil percentageon 2021 Basophils/100 WBC (Bld) 0.3 % 0-1 [facility] Work Phone: [phone] Bilirubin [Mass/Vol] 0.40 mg/dL 0.20-1.00 [facility] Work Phone: [phone] Comment on above: For patients on eltr ombopag therapy, use of Dimension [place] TBIL is not recommended. Chloride [Moles/Vol] 106 mmol/L 98-107 [facility] Work Phone: Eosinophils/100 WBC (Bld) 1.6 % 0-5 [facility] Work Phone: Glucose [Mass/Vol] 96 mg/dL 74-106 [facility] Work Phone: Neutrophils (Bld) [#/Vol] 9.8 10*3/uL 2.0-7.7 [facility] Work Phone: Neutrophils/100 WBC (Bld) 78.7 % 47-70 [facility] Work Phone: Potassium [Moles/Vol] 3.9 mmol/L 3.5-5.1 [facility] Work Phone: Protein [Mass/Vol] 7.0 g/dL 6.4-8.2 [facility] Work Phone: Sodium [Moles/Vol] 141 mmol/L 136-145 [facility] Work Phone: WBC (Bld) [#/Vol] 12.5 10*3/uL 4.4-11.0 [facility]: Blood erythrocytes count (nu mber/volume)on 06-14-2021 RBC (Bld) [#/Vol] 4.75 10*6/uL 4.2-5.4 [facility] Work Phone: Blood hemoglobin measurement (mass/volume)on 06-14-2021 Hemoglobin (Bld) [Mass/Vol] 13.8 g/dL 12.0-15.0 [facility] Work Phone: Blood lymphocytes/100 leukoc yteson 06-14-2021 Lymphocytes/100 WBC (Bld) 10.7 % 19-41 [facility] Work Phone: Blood monocytes/100 leukocyt eson 06-14-2021 Monocytes/100 WBC (Bld) 8.4 % 0-[address] [facility] Work Phone: Blood platelet mean volumeon 06-14-2021 Platelet mean volume (Bld) [Entitic vol] 10.1 fL 6.2-12.0 [facility] Work Phone: Determination of erythrocyte mean corpuscular volume (MCV)on 06-14-2021 MCV (RBC) [Entitic vol] 92.0 fL 81-[address] [facility] Work Phone: Hematocrit Auto (Bld) [Volum e fraction]on 06-14-2021 Hematocrit (Bld) [Volume fraction] 43.7 % 37-47 [facility] Work Phone: Laboratory - Chemistry and C hemistry - challengeon 06-14-2021 ALP [Catalytic activity/Vol] 100 U/L 45-117 [facility] Work Phone: ALT [Catalytic activity/Vol] 100 U/L 13-56 [facility] Work Phone: [phone] CO2 [Moles/Vol] 30.0 mmol/L 21.0-32.0 [facility] Work Phone: Globulin (S) [Mass/Vol] 3.6 g/dL 2.2-4.[address] [facility] Work Phone: Urea nitrogen/Creatinine [Mass ratio] 27.4 mg/mg 10-20 [facility] Work Phone: Laboratory - Hematology and Cell countson 06-14-2021 Erythrocyte distribution width (RBC) [Entitic vol] 43.7 fL 35.1-43.9 [facility] Work Phone: Erythrocyte distribution width (RBC) [Ratio] 12.8 % 11.6-14.6 [facility] Work Phone: Immature granulocytes/100 WBC (Bld) 0.300 % 0.0-0.9 [facility] Work Phone: Comment on above: IG% - Immature Granu locytes (promyelocytes, myelocytes and metamyelocytes) > 1% indicates that a LEFT SHIFT is Present. MCH (RBC) [Entitic mass] 29.1 pg 27.0-32.0 [facility] Work Phone: Nucleated RBC/100 WBC (Bld) [Ratio] 0 % 0-5 [facility] Work Phone: MCHC Auto (RBC) [Mass/Vol]on 06-14-2021 MCHC (RBC) [Mass/Vol] 31.6 g/dL 32-36 [facility] Work Phone: No Panel Informationon 06-14 Estimated GFR (MDRD) Amer 77 mL/min >60 [facility] Work Phone: Comment on above: GFR Calc Estimated GFR (MDRD) Non-Af Amer 63 mL/min >60 [facility] Work Phone: Comment on above: Non- GFR Calc Platelets bldon 06-14-2021 Platelets (Bld) [#/Vol] 318 10*3/uL 150-450 [facility] Work Phone: Serum or plasma albumin israel urement (mass/volume)on 06-14-2021 Albumin [Mass/Vol] 3.4 g/dL 3.2-5.0 [facility] Work Phone: Serum or plasma albumin/glob ulin mass ratioon 06-14-2021 Albumin/Globulin [Mass ratio] 0.9 {ratio} 0.9-2.4 [facility] Work Phone: Serum or plasma calcium israel urement (mass/volume)on 06-14-2021 Calcium [Mass/Vol] 8.9 mg/dL 8.5-10.1 [facility] Work Phone: Serum or plasma creatinine m easurement (mass/volume)on 06-14-2021 Creatinine [Mass/Vol] 0.95 mg/dL 0.55-1.02 [facility] Work Phone: Comment on above: The validity of the calculated GFR & GFRAA in patients over 70 years has not been determined. Clinical correlation is essential. Serum or plasma urea nitroge n measurement (mass/volume)on 06-14-2021 Urea nitrogen [Mass/Vol] 26 mg/dL 7-18 [facility] Work Phone: Thin prep Papanicolaou smear with manual screeningon 06-14-2021 Thin prep Papanicolaou smear with manual screening 71 U/L 15-37 [facility] Work Phone: Thin prep Papanicolaou smear with manual screening 5 5-15 [facility] Work Phone: Absolute lymphocyte counton 03-18-2021 Lymphocytes Auto (Unsp spec) [#/Vol] 0.97 10*3/uL 0.83-4.51 [facility] Work Phone: [phone] Basophil percentageon 2021 Basophils/100 WBC (Bld) 0.4 % 0-[address] [facility] Work Phone: [phone] Bilirubin [Mass/Vol] 0.30 mg/dL 0.20-1.00 [facility] Work Phone: [phone] Comment on above: For patients on eltr ombopag therapy, use of Dimension [place] TBIL is not recommended. Chloride [Moles/Vol] 106 mmol/L 98-107 [facility] Work Phone: [phone] Eosinophils/100 WBC (Bld) 1.1 % 0-5 [facility] Work Phone: [phone] Glucose [Mass/Vol] 92 mg/dL 74-106 [facility] Work Phone: [phone] Comment on above: Please note revised GLUCOSE reference range effective 2017. Neutrophils (Bld) [#/Vol] 10.2 10*3/uL 2.0-7.7 [facility] Work Phone: [phone] Neutrophils/100 WBC (Bld) 83.5 % 47-70 [facility] Work Phone: [phone] Potassium [Moles/Vol] 4.1 mmol/L 3.5-5.1 [facility] Work Phone: [phone] Protein [Mass/Vol] 7.0 g/dL 6.4-8.2 [facility] Work Phone: Sodium [Moles/Vol] 143 mmol/L 136-145 [facility] Work Phone: WBC (Bld) [#/Vol] 12.2 10*3/uL 4.4-11.0 [facility] Work Phone: Blood erythrocytes count (nu mber/volume)on 03-18-2021 RBC (Bld) [#/Vol] 4.56 10*6/uL 4.2-5.4 [facility] Work Phone: Blood hemoglobin measurement (mass/volume)on 03-18-2021 Hemoglobin (Bld) [Mass/Vol] 13.1 g/dL 12.0-15.0 [facility] Work Phone: Blood lymphocytes/100 leukoc yteson 03-18-2021 Lymphocytes/100 WBC (Bld) 8.0 % 19-41 [facility] Work Phone: Blood monocytes/100 leukocyt eson 03-18-2021 Monocytes/100 WBC (Bld) 6.7 % 0-[address] [facility] Work Phone: Blood platelet mean volumeon 03-18-2021 Platelet mean volume (Bld) [Entitic vol] 10.2 fL 6.2-12.0 [facility] Work Phone: [phone] Determination of erythrocyte mean corpuscular volume (MCV)on 03-18-2021 MCV (RBC) [Entitic vol] 91.2 fL 81-[address] [facility] Work Phone: Hematocrit Auto (Bld) [Volum e fraction]on 03-18-2021 Hematocrit (Bld) [Volume fraction] 41.6 % 37-47 [facility] Work Phone: [phone] Laboratory - Chemistry and C hemistry - challengeon 03-18-2021 ALP [Catalytic activity/Vol] 95 U/L 45-117 [facility] Work Phone: [phone] ALT [Catalytic activity/Vol] 36 U/L 13-56 [facility] Work Phone: [phone] CO2 [Moles/Vol] 31.0 mmol/L 21.0-32.0 [facility] Work Phone: [phone] Globulin (S) [Mass/Vol] 3.8 g/dL 2.2-4.[address] [facility] Work Phone: [phone] Urea nitrogen/Creatinine [Mass ratio] 24.0 mg/mg 10-20 [facility] Work Phone: [phone] Laboratory - Hematology and Cell countson 03-18-2021 Erythrocyte distribution width (RBC) [Entitic vol] 42.6 fL 35.1-43.9 [facility] Work Phone: Erythrocyte distribution width (RBC) [Ratio] 12.8 % 11.6-14.6 [facility] Work Phone: Immature granulocytes/100 WBC (Bld) 0.300 % 0.0-0.9 [facility] Work Phone: Comment on above: IG% - Immature Granu locytes (promyelocytes, myelocytes and metamyelocytes) > 1% indicates that a LEFT SHIFT is Present. MCH (RBC) [Entitic mass] 28.7 pg 27.0-32.0 [facility] Work Phone: Nucleated RBC/100 WBC (Bld) [Ratio] 0 % 0-5 [facility] Work Phone: MCHC Auto (RBC) [Mass/Vol]on 03-18-2021 MCHC (RBC) [Mass/Vol] 31.5 g/dL 32-36 [facility] Work Phone: No Panel Informationon 03-18 Estimated GFR (MDRD) Amer 76 mL/min >60 [facility] Work Phone: Comment on above: GFR Calc Estimated GFR (MDRD) Non-Af Amer 63 mL/min >60 [facility] Work Phone: Comment on above: Non- GFR Calc Platelets bldon 03-18-2021 Platelets (Bld) [#/Vol] 336 10*3/uL 150-450 [facility] Work Phone: Serum or plasma albumin israel urement (mass/volume)on 03-18-2021 Albumin [Mass/Vol] 3.2 g/dL 3.2-5.0 [facility] Work Phone: Serum or plasma albumin/glob ulin mass ratioon 03-18-2021 Albumin/Globulin [Mass ratio] 0.8 {ratio} 0.9-2.4 [facility] Work Phone: Serum or plasma calcium israel urement (mass/volume)on 03-18-2021 Calcium [Mass/Vol] 9.2 mg/dL 8.5-10.1 [facility] Work Phone: Serum or plasma creatinine m easurement (mass/volume)on 03-18-2021 Creatinine [Mass/Vol] 0.96 mg/dL 0.55-1.02 [facility] Work Phone: Comment on above: The validity of the calculated GFR & GFRAA in patients over 70 years has not been determined. Clinical correlation is essential. Serum or plasma urea nitroge n measurement (mass/volume)on 03-18-2021 Urea nitrogen [Mass/Vol] 23 mg/dL 7-18 [facility] Work Phone: Thin prep Papanicolaou smear with manual screeningon 03-18-2021 Thin prep Papanicolaou smear with manual screening 21 U/L 15-37 [facility] Work Phone: Thin prep Papanicolaou smear with manual screening 6 5-15 [facility] Work Phone: Vital Signs Date Time Vital Sign Value Performing Clinician Faci lity 08-18-2024 10:57-0400 Body height 160.[address] Shahab Adams DO Work Phone: [facility] 08-18-2024 10:57-0400 Body mass index (BMI) [Ratio] 32.1 kg/m2 Dr. Shahab Adams DO Work Phone: [facility] 08-18-2024 10:57-0400 Body weight 82.[address] Shahab Adams DO Work Phone: [facility] 08-18-2024 10:54-0400 Body temperature 98.5 [degF] Dr. Shahab Adams DO Work Phone: [facility] 08-18-2024 10:54-0400 Diastolic blood pressure 63 mm[Hg] Dr. Shahab Adams DO Work Phone: [facility] 08-18-2024 10:54-0400 Heart rate 62 /min Dr. Shahab Adams DO Work Phone: [facility] 08-18-2024 10:54-0400 Inhaled oxygen flow rate 3 L/min Dr. Shahab Adams DO Work Phone: [facility] 08-18-2024 10:54-0400 Respiratory rate 18 /min Dr. Shahab Adams DO Work Phone: [facility] 08-18-2024 10:54-0400 SaO2% (BldA) [Mass fraction] 97 % Dr. Shahab Adams DO Work Phone: [facility] 08-18-2024 10:54-0400 Systolic blood pressure 114 mm[Hg] Dr. Shahab Adams DO Work Phone: [facility] 08-04-2024 12:46-0400 Inhaled oxygen flow rate 2 L/min Dr. Shahab Adams DO Work Phone: [facility] 08-04-2024 12:46-0400 SaO2% (BldA) [Mass fraction] 98 % Dr. Shahab Adams DO Work Phone: [facility] 08-04-2024 11:38-0400 Body temperature 97.8 [degF] Dr. Shahab Adams DO Work Phone: [facility] 08-04-2024 11:38-0400 Diastolic blood pressure 62 mm[Hg] Dr. Shahab Adams DO Work Phone: [facility] 08-04-2024 11:38-0400 Heart rate 65 /min Dr. Shahab Adams DO Work Phone: [facility] 08-04-2024 11:38-0400 Respiratory rate 18 /min Dr. Shahab Adams DO Work Phone: [facility] 08-04-2024 11:38-0400 Systolic blood pressure 103 mm[Hg] Dr. Shahab Adams DO Work Phone: [facility] 08-02-2024 20:28-0400 Diastolic blood pressure 58 mm[Hg] Dr. Shahab Adams DO Work Phone: [facility] 08-02-2024 20:28-0400 Heart rate 107 /min Dr. Shahab Adams DO Work Phone: [facility] 08-02-2024 20:28-0400 Systolic blood pressure 135 mm[Hg] Dr. Shahab Adams DO Work Phone: [facility] 08-02-2024 19:56-0400 Inhaled oxygen flow rate 3 L/min Dr. Shahab Adams DO Work Phone: [facility] 08-02-2024 19:56-0400 SaO2% (BldA) [Mass fraction] 96 % Dr. Shahab Adams DO Work Phone: [facility] 08-02-2024 19:54-0400 Respiratory rate 18 /min Dr. Shahab Adams DO Work Phone: [facility] 08-02-2024 17:58-0400 Body temperature 97.9 [degF] Dr. Shahab Adams DO Work Phone: [facility] 08-02-2024 10:20-0400 Body height 160.[address] Shahab Adams DO Work Phone: [facility] 08-02-2024 10:20-0400 Body weight 75.[address] Shahab Adams DO Work Phone: [facility] 08-01-2024 16:01-0400 Body mass index (BMI) [Ratio] 29.6 kg/m2 Dr. Shahab Adams DO Work Phone: [facility] 08-01-2024 15:00-0400 Diastolic blood pressure 70 mm[Hg] Dr. Shahab Adams DO Work Phone: [facility] 08-01-2024 15:00-0400 Heart rate 109 /min Dr. Shahab Adams DO Work Phone: [facility] 08-01-2024 15:00-0400 Inhaled oxygen flow rate 3 L/min Dr. Shahab Adams DO Work Phone: [facility] 08-01-2024 15:00-0400 Respiratory rate 19 /min Dr. Shahab Adams DO Work Phone: [facility] 08-01-2024 15:00-0400 SaO2% (BldA) [Mass fraction] 96 % Dr. Shahab Adams DO Work Phone: [facility] 08-01-2024 15:00-0400 Systolic blood pressure 105 mm[Hg] Dr. Shahab Adams DO Work Phone: [facility] 08-01-2024 14:44-0400 Body temperature 99.1 [degF] Dr. Shahab Adams DO Work Phone: [facility] 08-01-2024 13:00-0400 Body mass index (BMI) [Ratio] 32.5 kg/m2 Dr. Shahab Adams DO Work Phone: [facility] 08-01-2024 13:00-0400 Body weight 83.[address] Shahab Adams DO Work Phone: [facility] 08-01-2024 12:44-0400 Body height 160.[address] Shahab Adams DO Work Phone: [facility] 07-28-2024 11:15-0400 Body weight 80.[address] Shahab Adams DO Work Phone: [facility] 07-28-2024 11:15-0400 Heart rate 67 /min Dr. Shahab Adams DO Work Phone: [facility] 07-28-2024 11:15-0400 Inhaled oxygen flow rate 3 L/min Dr. Shahab Adams DO Work Phone: [facility] 07-28-2024 11:15-0400 SaO2% (BldA) [Mass fraction] 88 % Dr. Shahab Adams DO Work Phone: [facility] 07-20-2024 09:15-0400 Body height 160.[address] Shahab Adams DO Work Phone: [facility] 07-20-2024 09:15-0400 Body mass index (BMI) [Ratio] 32.1 kg/m2 Dr. Shahab Adams DO Work Phone: [facility] 07-20-2024 09:15-0400 Body temperature 97.8 [degF] Dr. Shahab Adams DO Work Phone: [facility] 07-20-2024 09:15-0400 Body weight 82.[address] Shahab Adams DO Work Phone: [facility] 07-20-2024 09:15-0400 Diastolic blood pressure 61 mm[Hg] Dr. Shahab Adams DO Work Phone: [facility] 07-20-2024 09:15-0400 Heart rate 83 /min Dr. Shahab Adams DO Work Phone: [facility] 07-20-2024 09:15-0400 Inhaled oxygen flow rate 3 L/min Dr. Shahab Adams DO Work Phone: [facility] 07-20-2024 09:15-0400 Respiratory rate 20 /min Dr. Shahab Adams DO Work Phone: [facility] 07-20-2024 09:15-0400 SaO2% (BldA) [Mass fraction] 94 % Dr. Shahab Adams DO Work Phone: [facility] 07-20-2024 09:15-0400 Systolic blood pressure 117 mm[Hg] Dr. Shahab Adams DO Work Phone: [facility] 07-08-2024 18:23-0400 Body temperature 98 [degF] Dr. Shahab Adams DO Work Phone: [facility] 07-08-2024 18:23-0400 Diastolic blood pressure 75 mm[Hg] Dr. Shahab Adams DO Work Phone: [facility] 07-08-2024 18:23-0400 Heart rate 98 /min Dr. Shahab Adams DO Work Phone: [facility] 07-08-2024 18:23-0400 Respiratory rate 16 /min Dr. Shahab Adams DO Work Phone: [facility] 07-08-2024 18:23-0400 SaO2% (BldA) [Mass fraction] 94 % Dr. Shahab Adams DO Work Phone: [facility] 07-08-2024 18:23-0400 Systolic blood pressure 132 mm[Hg] Dr. Shahab Adams DO Work Phone: [facility] 07-08-2024 18:00-0400 Inhaled oxygen flow rate 3 L/min Dr. Shahab Adams DO Work Phone: [facility] 07-08-2024 16:36-0400 Body mass index (BMI) [Ratio] 32.8 kg/m2 Dr. Shahab Adams DO Work Phone: [facility] 07-08-2024 16:36-0400 Body weight [address] Shahab Adams DO Work Phone: [facility] 06-29-2024 14:57-0400 Body temperature 97.7 [degF] Dr. Shahab Adams DO Work Phone: [facility] 06-29-2024 14:57-0400 Diastolic blood pressure 67 mm[Hg] Dr. Shahab Adams DO Work Phone: [facility] 06-29-2024 14:57-0400 Heart rate 93 /min Dr. Shahab Adams DO Work Phone: [facility] 06-29-2024 14:57-0400 Inhaled oxygen flow rate 2 L/min Dr. Shahab Adams DO Work Phone: [facility] 06-29-2024 14:57-0400 Respiratory rate 12 /min Dr. Shahab Adams DO Work Phone: [facility] 06-29-2024 14:57-0400 SaO2% (BldA) [Mass fraction] 94 % Dr. Shahab Adams DO Work Phone: [facility] 06-29-2024 14:57-0400 Systolic blood pressure 138 mm[Hg] Dr. Shahab Adams DO Work Phone: [facility] 06-29-2024 08:00-0400 Inhaled oxygen concentration 95 % Dr. Shahab Adams DO Work Phone: [facility] 06-27-2024 17:51-0400 Body height 160.[address] Shahab Adams DO Work Phone: [facility] 06-27-2024 17:51-0400 Body mass index (BMI) [Ratio] 33.1 kg/m2 Dr. Shahab Adams DO Work Phone: [facility] 06-27-2024 17:51-0400 Body weight 84.[address] Shahab Adams DO Work Phone: [facility] 06-27-2024 16:00-0400 Body temperature 98.2 [degF] Dr. Shahab Adams DO Work Phone: [facility] 06-27-2024 16:00-0400 Diastolic blood pressure 74 mm[Hg] Dr. Shahab Adams DO Work Phone: [facility] 06-27-2024 16:00-0400 Heart rate 110 /min Dr. Shahab Adams DO Work Phone: [facility] 06-27-2024 16:00-0400 Inhaled oxygen flow rate 3 L/min Dr. Shahab Adams DO Work Phone: [facility] 06-27-2024 16:00-0400 Respiratory rate 21 /min Dr. Shahab Adams DO Work Phone: [facility] 06-27-2024 16:00-0400 SaO2% (BldA) [Mass fraction] 96 % Dr. Shahab Adams DO Work Phone: [facility] 06-27-2024 16:00-0400 Systolic blood pressure 144 mm[Hg] Dr. Shahab Adams DO Work Phone: [facility] 06-27-2024 14:06-0400 Body mass index (BMI) [Ratio] 33.3 kg/m2 Dr. Shahab Adams DO Work Phone: [facility] 06-27-2024 14:06-0400 Body weight 85.[address] Shahab Adams DO Work Phone: [facility] 06-27-2024 13:51-0400 Body height 160.[address] Shahab Adams DO Work Phone: [facility] 06-12-2024 12:01-0400 Body temperature 98.3 [degF] Dr. Shahab Adams DO Work Phone: [facility] 06-12-2024 12:01-0400 Diastolic blood pressure 81 mm[Hg] Dr. Shahab Adams DO Work Phone: [facility] 06-12-2024 12:01-0400 Heart rate 72 /min Dr. Shhaab Adams DO Work Phone: [facility] 06-12-2024 12:01-0400 Inhaled oxygen flow rate 2 L/min Dr. Shahab Adams DO Work Phone: [facility] 06-12-2024 12:01-0400 Respiratory rate 16 /min Dr. Shahab Adams DO Work Phone: [facility] 06-12-2024 12:01-0400 SaO2% (BldA) [Mass fraction] 94 % Dr. Shahab Adams DO Work Phone: [facility] 06-12-2024 12:01-0400 Systolic blood pressure 151 mm[Hg] Dr. Shahab Adams DO Work Phone: [facility] 06-12-2024 04:38-0400 Body mass index (BMI) [Ratio] 35.3 kg/m2 Dr. Shahab Adams DO Work Phone: [facility] 06-12-2024 04:38-0400 Body weight 90.[address] Shahab Adams DO Work Phone: [facility] 06-11-2024 17:17-0400 Inhaled oxygen flow rate 2 L/min Dr. Shahab Adams DO Work Phone: [facility] 06-11-2024 17:17-0400 SaO2% (BldA) [Mass fraction] 96 % Dr. Shahab Adams DO Work Phone: [facility] 06-11-2024 14:38-0400 Body temperature 98.4 [degF] Dr. Shahab Adams DO Work Phone: [facility] 06-11-2024 14:38-0400 Diastolic blood pressure 77 mm[Hg] Dr. Shahab Adams DO Work Phone: [facility] 06-11-2024 14:38-0400 Heart rate 78 /min Dr. Shahab Adams DO Work Phone: [facility] 06-11-2024 14:38-0400 Respiratory rate 18 /min Dr. Shahab Adams DO Work Phone: [facility] 06-11-2024 14:38-0400 Systolic blood pressure 131 mm[Hg] Dr. Shahab Adams DO Work Phone: [facility] 06-11-2024 08:46-0400 Inhaled oxygen concentration 95 % Dr. Shahab Adams DO Work Phone: [facility] 06-11-2024 01:29-0400 Body height 160.[address] Shahab Adams DO Work Phone: [facility] 06-11-2024 01:29-0400 Body mass index (BMI) [Ratio] 35.1 kg/m2 Dr. Shahab Adams DO Work Phone: [facility] 06-11-2024 01:29-0400 Body weight [address] Shahab Adams DO Work Phone: [facility] 06-11-2024 00:06-0400 Inhaled oxygen flow rate 3 L/min Dr. Shahab Adams DO Work Phone: [facility] 06-11-2024 00:06-0400 Respiratory rate 26 /min Dr. Shahab Adams DO Work Phone: [facility] 06-11-2024 00:06-0400 SaO2% (BldA) [Mass fraction] 90 % Dr. Shahab Adams DO Work Phone: [facility] 06-11-2024 00:00-0400 Body temperature 98.4 [degF] Dr. Shahab Adams DO Work Phone: [facility] 06-11-2024 00:00-0400 Diastolic blood pressure 88 mm[Hg] Dr. Shahab Adams DO Work Phone: [facility] 06-11-2024 00:00-0400 Heart rate 100 /min Dr. Shahab Adams DO Work Phone: [facility] 06-11-2024 00:00-0400 Systolic blood pressure 189 mm[Hg] Dr. Shahab Adams DO Work Phone: [facility] 06-10-2024 21:26-0400 Body height 160.[address] Shahab Adams DO Work Phone: [facility] 06-10-2024 21:26-0400 Body mass index (BMI) [Ratio] 34.9 kg/m2 Dr. Shahab Adams DO Work Phone: [facility] 06-10-2024 21:26-0400 Body weight 89.[address] Shahab Adams DO Work Phone: [facility] 05-26-2024 10:52-0400 Body height 160 cm Chris Cody MD Work Phone: [facility] 05-26-2024 10:52-0400 Body mass index (BMI) [Ratio] 35.89 kg/m2 Chris Cody MD Work Phone: [facility] 05-26-2024 10:52-0400 Body temperature 97.3 [degF] Chris Cody MD Work Phone: [facility] 05-26-2024 10:52-0400 Body weight 91.9 kg Chris Cody MD Work Phone: [facility] 05-26-2024 10:52-0400 Diastolic blood pressure 70 mm[Hg] Chris Cody MD Work Phone: [facility] 05-26-2024 10:52-0400 Heart rate 65 /min Chris Cody MD Work Phone: [facility] 05-26-2024 10:52-0400 SaO2% (BldA) [Mass fraction] 98 % Chris Cody MD Work Phone: [facility] 05-26-2024 10:52-0400 Systolic blood pressure 156 mm[Hg] Chris Cody MD Work Phone: [facility] 05-09-2024 19:00-0500 Diastolic blood pressure 101 mm[Hg] Dr. Shahab Adams DO Work Phone: [facility] 05-09-2024 19:00-0500 Heart rate 53 /min Dr. Shahab Adams DO Work Phone: [facility] 05-09-2024 19:00-0500 Respiratory rate 15 /min Dr. Shahab Adams DO Work Phone: [facility] 05-09-2024 19:00-0500 SaO2% (BldA) [Mass fraction] 93 % Dr. Shahab Adams DO Work Phone: [facility] 05-09-2024 19:00-0500 Systolic blood pressure 153 mm[Hg] Dr. Shahab Adams DO Work Phone: [facility] 05-09-2024 17:15-0500 Body temperature 97.9 [degF] Dr. Shahab Adams DO Work Phone: [facility] 05-09-2024 12:50-0500 Body mass index (BMI) [Ratio] 34.9 kg/m2 Dr. Shahab Adams DO Work Phone: [facility] 05-09-2024 12:50-0500 Body weight 89.[address] Shahab Adams DO Work Phone: [facility] 04-07-2024 10:19-0500 Body height 160 cm Chris Cody MD Work Phone: [facility] 04-07-2024 10:19-0500 Body mass index (BMI) [Ratio] 34.64 kg/m2 Chris Cody MD Work Phone: [facility] 04-07-2024 10:19-0500 Body temperature 97.39 [degF] Chris Cody MD Work Phone: [facility] 04-07-2024 10:19-0500 Body weight 88.7 kg Chris Cody MD Work Phone: [facility] 04-07-2024 10:19-0500 Diastolic blood pressure 69 mm[Hg] Chris Cody MD Work Phone: [facility] 04-07-2024 10:19-0500 Heart rate 55 /min Chris Cody MD Work Phone: [facility] 04-07-2024 10:19-0500 Systolic blood pressure 146 mm[Hg] Chris Cody MD Work Phone: [facility] 01-01-2024 10:39-0400 Body mass index (BMI) [Ratio] 33.98 kg/m2 Chris Cody MD Work Phone: [facility] 01-01-2024 10:39-0400 Body temperature 96.8 [degF] Chris Cody MD Work Phone: [facility] 01-01-2024 10:39-0400 Body weight 87 kg Chris Cody MD Work Phone: [facility] 01-01-2024 10:39-0400 Diastolic blood pressure 61 mm[Hg] Chris Cody MD Work Phone: [facility] 01-01-2024 10:39-0400 Heart rate 51 /min Chris Cody MD Work Phone: [facility] 01-01-2024 10:39-0400 Systolic blood pressure 138 mm[Hg] Chris Cody MD Work Phone: [facility] 10-01-2023 10:45-0400 Body height 160 cm Chris Cody MD Work Phone: [facility] 10-01-2023 10:45-0400 Body mass index (BMI) [Ratio] 33.55 kg/m2 Chris Cody MD Work Phone: [facility] 10-01-2023 10:45-0400 Body temperature 97.7 [degF] Chris Cody MD Work Phone: [facility] 10-01-2023 10:45-0400 Body weight 85.9 kg Chris Cody MD Work Phone: [facility] 10-01-2023 10:45-0400 Diastolic blood pressure 56 mm[Hg] Chris Cody MD Work Phone: [facility] 10-01-2023 10:45-0400 Heart rate 49 /min Chris Cody MD Work Phone: [facility] 10-01-2023 10:45-0400 Systolic blood pressure 142 mm[Hg] Chris Cody MD Work Phone: [facility] 06-26-2023 10:42-0400 Body height 160 cm Chris Cody MD Work Phone: [facility] 06-26-2023 10:42-0400 Body temperature 98.01 [degF] Chris Cody MD Work Phone: [facility] 06-26-2023 10:42-0400 Body weight 85.5 kg Chris Cody MD Work Phone: [facility] 06-26-2023 10:42-0400 Diastolic blood pressure 72 mm[Hg] Chris Cody MD Work Phone: [facility] 06-26-2023 10:42-0400 Heart rate 60 /min Chris Cody MD Work Phone: [facility] 06-26-2023 10:42-0400 SaO2% (BldA) [Mass fraction] 99 % Chris Cody MD Work Phone: [facility] 06-26-2023 10:42-0400 Systolic blood pressure 128 mm[Hg] Chris Cody MD Work Phone: [facility] 11-21-2022 13:27-0400 Body height 160 cm Gerson Mandujano APRN.[employer]ER Work Phone: [facility] 11-21-2022 13:27-0400 Body weight 88 kg Gerson Mandujano APRN.CNP Work Phone: [facility] 11-21-2022 13:27-0400 Diastolic blood pressure 63 mm[Hg] Gerson Mandujano APRN.[employer] INSTALLER Work Phone: [facility] 11-21-2022 13:27-0400 Heart rate 51 /min Gerson Mandujano REWORK OPERATOR.[employer] INSTALLER Work Phone: [facility] 11-21-2022 13:27-0400 Systolic blood pressure 141 mm[Hg] Gerson Mandujano REWORK OPERATOR.[employer]ER INSTALLER Work Phone: [facility] 11-13-2022 11:08-0400 Body temperature 97.8 [degF] Dr. Shahab Adams Work Phone: [facility] 11-13-2022 11:08-0400 Diastolic blood pressure 72 mm[Hg] Dr. Shahab Adams Work Phone: [facility] 11-13-2022 11:08-0400 Heart rate 64 /min Dr. Shahab Adams Work Phone: [facility] 11-13-2022 11:08-0400 Respiratory rate 16 /min Dr. Shahab Adams Work Phone: [facility] 11-13-2022 11:08-0400 SaO2% (BldA) [Mass fraction] 96 % Dr. Shahab Adams Work Phone: [facility] 11-13-2022 11:08-0400 Systolic blood pressure 129 mm[Hg] Dr. Shahab Adams Work Phone: [facility] 11-13-2022 09:31-0400 Body height 160.[address] Shahab Adams Work Phone: [facility] 11-13-2022 09:31-0400 Body mass index (BMI) [Ratio] 33.5 kg/m2 Dr. Shahab Adams Work Phone: [facility] 11-13-2022 09:31-0400 Body weight 85.[address] Shahab Adams Work Phone: [facility] 08-16-2023 08:41-0400 Body height 162.[address] Shahab Adams Work Phone: [facility] 10-22-2022 08:41-0400 Body mass index (BMI) [Ratio] 32.5 kg/m2 Dr. Shahab Adams Work Phone: [facility] 10-22-2022 08:41-0400 Body weight 86.[address] Shahab Adams Work Phone: [facility] 06-04-2022 14:14-0400 Body temperature 98.3 [degF] Dr. Shahab Adams Work Phone: [facility] 06-04-2022 14:14-0400 Diastolic blood pressure 57 mm[Hg] Dr. Shahab Adams Work Phone: [facility] 06-04-2022 14:14-0400 Heart rate 62 /min Dr. Shahab Adams Work Phone: [facility] 06-04-2022 14:14-0400 Respiratory rate 18 /min Dr. Shahab Adams Work Phone: [facility] 06-04-2022 14:14-0400 SaO2% (BldA) [Mass fraction] 98 % Dr. Shahab Adams Work Phone: [facility] 06-04-2022 14:14-0400 Systolic blood pressure 124 mm[Hg] Dr. Shahab Adams Work Phone: [facility] 06-03-2022 15:31-0400 Body temperature 98.7 [degF] Dr. Shahab Adams Work Phone: [facility] 06-03-2022 15:31-0400 Diastolic blood pressure 60 mm[Hg] Dr. Shahab Adams Work Phone: [facility] 06-03-2022 15:31-0400 Heart rate 59 /min Dr. Shahab Adams Work Phone: [facility] 06-03-2022 15:31-0400 Respiratory rate 16 /min Dr. Shahab Adams Work Phone: [facility] 06-03-2022 15:31-0400 SaO2% (BldA) [Mass fraction] 95 % Dr. Shahab Adams Work Phone: [facility] 06-03-2022 15:31-0400 Systolic blood pressure 116 mm[Hg] Dr. Shahab Adams Work Phone: [facility] 06-03-2022 05:40-0400 Inhaled oxygen flow rate 2 L/min Dr. Shahab Adams Work Phone: [facility] 06-02-2022 15:33-0400 Body height 165.[address] Shahab Adams Work Phone: [facility] 06-02-2022 15:33-0400 Body mass index (BMI) [Ratio] 34 kg/m2 Dr. Shahab Adams Work Phone: [facility] 06-02-2022 15:33-0400 Body weight 92.[address] Shahab Adams Work Phone: [facility] 06-01-2022 16:35-0400 Body temperature 98.2 [degF] [facility] 06-01-2022 16:35-0400 Diastolic blood pressure 59 mm[Hg] [facility] 06-01-2022 16:35-0400 Heart rate 53 /min [facility] 06-01-2022 16:35-0400 Respiratory rate 18 /min [facility] 06-01-2022 16:35-0400 SaO2% (BldA) [Mass fraction] 97 % [facility] 06-01-2022 16:35-0400 Systolic blood pressure 155 mm[Hg] [facility] 06-01-2022 13:36-0400 Body height 165.1 cm [facility] 06-01-2022 13:36-0400 Body mass index (BMI) [Ratio] 34.5 kg/m2 [facility] 06-01-2022 [id number] Body weight 94.16 kg [facility] Encounters Encounter Date Encounter Type Care Provider Facility Start: 09-01-2024 ambulatory Shahab [facility] Facility: [facility] Start: 08-23-2024 End: 08-23-2024 Specialty Pharmacy Gr[facility] Leyva [facility]ly [facility] Comment on above: SPP Inflammatory Con ditions - Medication Refill (Humira CF) Start: 08-18-2024 End: 08-18-2024 Dr. Tamir Campos MD -[facility] Work Phone: Start: 08-18-2024 End: 08-18-[address] Shahab Adams DO Work Phone: [facility] Work Phone: Start: 08-16-2024 End: 08-17-2024 Refill Chris Cody MD Work Phone: Rheumatology Comment on above: Refill Request Start: 08-15-2024 End: 08-15-[address] Shahab Adams DO Work Phone: [facility] Work Phone: Start: 08-15-2024 End: 08-15-2024 Dr. Jose M Gonzalez DO -Sleep Lab Work Phone: Start: 08-15-2024 End: 08-15-2024 ambulatory [facility] Facility:[facility] Start: 08-04-2024 Dr. Rosalina Gatica MD - [facility] Work Phone: Start: 08-03-2024 Dr. Rosalina Gatica MD - [facility] Work Phone: Start: 08-03-2024 Dr. Jose M Gonzalez DO -[facility] Start: 08-02-2024 Non-patient / Non-visit Dr. Rosalina Gatica MD -[facility] Work Phone: Start: 08-02-2024 Dr. Rosalina Gatica MD - [facility] Work Phone: Start: 08-02-2024 ambulatory Shahab Bryan Facility: [facility] Start: 08-02-2024 Non-patient / Non-visit Dr. Jose M cummings DO -[facility] Start: 08-02-2024 Dr. Jose M Gonzalez DO -[facility] -[facility] Start: 08-01-2024 Non-patient / Non-visit Dr. Bill roy -[facility] Work Phone: Start: 08-01-2024 End: 08-04-2024 Dr. Rosalina Gatica MD -Progressive Care Unit Work Phone: Start: 08-01-2024 End: 08-04-2024 Evaluation and management of inpatient Dr. Bill Camacho DO -Progressive Care Unit Work Phone: Start: 08-01-2024 ambulatory Bill Camacho Facility:[facility] Start: 07-28-2024 End: 07-28-[address] Shahab Adams DO Work Phone: [facility] Work Phone: Start: 07-28-2024 End: 07-28-[address] Jose M Gonzalez DO -Pulmonary Services/Neurology Work Phone: Start: 07-28-2024 End: 07-28-2024 Dr. Jose M Gonzalez DO -Pulmonary Services/Neurology Work Phone: Start: 07-28-2024 End: 07-28-2024 ambulatory Shahab Bryan Facility:[facility] Start: 07-20-2024 End: 07-20-[address] Shahab Adams DO Work Phone: [facility] Work Phone: Start: 07-20-2024 End: 07-20-[address] Shahab Adams DO -Laboratory Specimen Work Phone: Start: 07-20-2024 End: 07-20-2024 Dr. Shahab Adams DO -Laboratory Specime n Work Phone: Start: 07-20-2024 End: 07-20-[address] Jose M Gonzalez DO -[facility] Work Phone: Start: 07-20-2024 End: 07-20-2024 Dr. Jose M Gonzalez DO -[facility] Work Phone: Start: 07-20-2024 End: 07-20-[address] Shahab Adams DO Work Phone: [facility] Work Phone: Start: 07-20-2024 End: 07-20-2024 ambulatory [facility] Facility:[facility] Start: 07-08-2024 End: 07-08-2024 Dr. Lance Loja MD -Emergency Departm ent Work Phone: Start: 07-08-2024 End: 07-08-2024 Emergency department patient visit Dr. Lance Loja MD -Emergency Department Work Phone: Start: 07-07-2024 End: 07-07-2024 Refill Chris Cody MD Work Phone: Rheumatology Comment on above: Refill Request Start: 06-30-2024 ambulatory [facility] Facility: [facility] Start: 06-29-2024 Non-patient / Non-visit Dr. Mayur Warren [facility] Work Phone: Start: 06-29-2024 Dr. Shahab valdez [facility] Work Phone: Start: 06-28-2024 Non-patient / Non-visit Dr. Mayur Warren [facility] Work Phone: Start: 06-28-2024 Dr. Shahab valdez [facility] Work Phone: Start: 06-27-2024 ambulatory [facility] Facility: [facility] Start: 06-27-2024 End: 06-29-2024 Evaluation and management of inpatient Dr. Maria E Strickland MD -Progressive Care Unit Work Phone: Start: 06-27-2024 End: 06-29-2024 Dr. Shahab Warren DO -Progressive Care Unit Work Phone: Start: 06-25-2024 End: 06-27-2024 Refill Chris Cody MD Work Phone: Rheumatology Comment on above: Refill Request Start: 06-19-2024 End: 06-20-2024 Refill Chris Cody MD Work Phone: Rheumatology Comment on above: Refill Request Start: 06-12-2024 Non-patient / Non-visit Dr. Valenzuela [facility] Work Phone: Start: 06-12-2024 Dr. Tyrone Clark [facility] Work Phone: Start: 06-11-2024 Non-patient / Non-visit Dr. Valenzuela [facility] Work Phone: Start: 06-11-2024 Dr. Tyrone Clark [facility] Work Phone: Start: 06-11-2024 Non-patient / Non-visit Dr. Maria Garcia MD -[facility] Work Phone: Start: 06-10-2024 ambulatory [facility] Facility: [facility] Start: 06-10-2024 End: 06-12-2024 Evaluation and management of inpatient Dr. Maria Garcia MD -[facility] Work Phone: Start: 06-10-2024 End: 06-12-2024 Dr. Tyrone Clark DO [facility] Unit Work Phone: Start: 06-08-2024 Non-patient / Non-visit Dr. Alfred GÓMEZ -[facility] Start: 06-08-2024 End: 06-08-[address] Shahab Adams DO Work Phone: [facility] Work Phone: Start: 06-08-2024 End: 06-08-[address] Shahab Adams DO -Cardiovascular Services Work Phone: Start: 06-08-2024 End: 06-08-2024 Dr. Valentin Barrios MD -[facility] Start: 06-08-2024 End: 06-08-2024 ambulatory Shahab Adams Facility:[facility] Start: 06-01-2024 End: 06-01-2024 Specialty Pharmacy [facility] Comment on above: SPP Inflammatory Con ditions - Medication Refill (Humira CF) Start: 05-31-2024 End: 05-31-2024 ambulatory Gr[facility] Leyva [facility] Start: 05-31-2024 End: 05-31-2024 Follow-up encounter Gracy Leyva Formerly [facility] Comment on above: SPP Inflammatory Con ditions - Follow-up (Humira CF); Insurance Authorization ([place] Appro[place] New Insurance ) Start: 05-29-2024 End: 05-29-2024 Orders Only Chris Cody MD Work Phone: Rheumatology Comment on above: Seronegative rheumat oid arthritis (HCC) (Primary Dx) Start: 05-26-2024 End: 05-26-2024 ambulatory CHRIS CODY Facility:[facility] Start: 05-26-2024 End: 05-26-2024 Office outpatient visit 40 minutes Chris Cody MD Work Phone: Rheumatology Comment on above: Seronegative rheumat oid arthritis (HCC) (Primary Dx); Chronic gout of multiple sites, unspecified cause; High risk medication use; Elevated liver enzymes; Shortness of breath; Bruising; Osteopenia, unspecified location Start: 05-21-2024 End: 05-23-2024 Refill Chris Cody MD Work Phone: Rheumatology Comment on above: Refill Request Start: 05-09-2024 End: 05-09-2024 Dr. Carlo Ruff DO -Emergency Departny nt Work Phone: Start: 05-09-2024 End: 05-09-2024 Emergency department patient visit Dr. Carlo Ruff DO -Emergency Department Work Phone: Start: 05-07-2024 End: 05-09-2024 Refill Chris Cody MD Work Phone: Rheumatology Comment on above: Refill Request Start: 05-04-2024 End: 05-04-2024 Specialty Pharmacy Grcay Leyva [facility] Comment on above: SPP Inflammatory Con ditions - Medication Refill (Humira (CF) ) Start: 05-03-2024 End: 05-03-2024 Refill Chris Cody MD Work Phone: Rheumatology Comment on above: Refill Request Start: 04-26-2024 End: 04-27-2024 Refill Chris Cody MD Work Phone: Rheumatology Comment on above: Refill Request Start: 04-20-2024 End: 04-20-2024 Refill Chris Cody MD Work Phone: Rheumatology Comment on above: Refill Request Start: 04-14-2024 End: 04-14-2024 Orders Only Chris Cody MD Work Phone: Rheumatology Comment on above: Refill Request Start: 04-08-2024 End: 04-08-2024 ambulatory CHRIS CODY Facility:[facility] Start: 04-07-2024 End: 04-07-2024 Office outpatient visit 25 minutes Chris Cody MD Work Phone: Rheumatology Comment on above: Seronegative rheumat oid arthritis (HCC) (Primary Dx); High risk medication use; Elevated liver enzymes; Chronic gout of multiple sites, unspecified cause; Fibromyalgia; Generalized osteoarthritis; oil heaterman 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 steroids Start: 04-07-2024 End: 04-07-2024 ambulatory CHRIS CODY Facility:[facility] Start: 04-07-2024 End: 04-07-2024 Patient encounter procedure Christy Deng MD Work Phone: Ophthalmology Comment on above: Long-term use of Lilia quenil (Primary Dx); Nuclear senile cataract of both eyes; Encounter for long-term (current) drug use Start: 04-04-2024 End: 04-04-2024 Specialty Pharmacy Gracy Leyva [facility] Comment on above: SPP Inflammatory Con ditions - Medication Refill (Humira CF) Start: 03-29-2024 End: 03-30-2024 Refill Chris Cody MD Work Phone: Rheumatology Comment on above: Refill Request Start: 03-22-2024 End: 03-22-2024 ambulatory Gracy Leyva [facility] Start: 03-22-2024 End: 03-22-2024 Follow-up encounter Gracy Leyva [facility] Comment on above: SPP Inflammatory Con ditions - Follow-up (Humira CF); Insurance Authorization ([place] renewal approved) Start: 03-21-2024 End: 03-21-2024 Refill Chris Cody MD Work Phone: Rheumatology Comment on above: Refill Request Start: 03-07-2024 End: 03-07-2024 Specialty Pharmacy Gracy Leyva [facility] Comment on above: SPP Inflammatory Con ditions - Medication Refill (Humira CF) Start: 02-25-2024 End: 02-25-2024 Refill Chris Cody MD Work Phone: Rheumatology Comment on above: Refill Request Start: 02-09-2024 End: 02-09-2024 Specialty Pharmacy Gracy Leyva [facility] Comment on above: SPP Inflammatory Con ditions - Medication Refill (Humira CF) Start: 01-15-2024 End: 01-18-2024 Refill Chris Cody MD Work Phone: Rheumatology Comment on above: Refill Request Patient Update Start: 01-13-2024 End: 01-13-2024 Specialty Pharmacy Gracy Leyva [facility] Comment on above: SPP Inflammatory Con ditions - Medication Refill (Humira) Start: 01-08-2024 End: 01-21-2024 ambulatory SHAHAB ADAMS Facility:[facility] Start: 01-01-2024 End: 01-01-2024 ambulatory CHRIS CODY Facility:[facility] Start: 01-01-2024 End: 01-01-2024 Office outpatient visit 25 minutes Chris Cody MD Work Phone: Rheumatology Comment on above: Seronegative rheumat oid arthritis (HCC) (Primary Dx); Chronic gout of multiple sites, unspecified cause; High risk medication use; Fibromyalgia; Generalized osteoarthritis; Elevated liver enzymes Start: 12-30-2023 End: 12-30-2023 ambulatory CHRIS CODY Facility:[facility] Start: 12-18-2023 End: 12-21-2023 Telephone encounter Christy Deng MD Work Phone: Ophthalmology Comment on above: Appointment Start: 12-04-2023 End: 12-07-2023 Telephone encounter Chris Cody MD Work Phone: Rheumatology Comment on above: Patient Update; Jenny ent Question Start: 12-02-2023 End: 12-02-2023 ambulatory Gracy Leyva [facility] Start: 12-02-2023 End: 12-02-2023 Patient encounter procedure Gracy Leyva [facility] Comment on above: SPP Inflammatory Con ditions - Treatment Referral (Humira); Insurance Authorization ([place] submitted) Start: 11-30-2023 End: 11-30-2023 Specialty Pharmacy Gracy Leyva [facility] Comment on above: SPP Inflammatory Con ditions - Medication Refill (Humira) Start: 11-11-2023 End: 11-11-2023 Specialty Pharmacy Gracy Leyva [facility] Comment on above: SPP Inflammatory Con ditions - Medication Refill (Humira) SPP Inflammatory Con ditions - Discontinuation (Actemra - switching back to Humira) Start: 11-03-2023 End: 11-03-2023 Refill Chris Cody MD Work Phone: Rheumatology Comment on above: Refill Request Start: 10-26-2023 End: 10-26-2023 Telephone encounter Chris Cody MD Work Phone: Rheumatology Comment on above: Patient Question; Earnestine rodriguez Update Start: 10-26-2023 End: 10-26-2023 ambulatory Shahab Adams Facility:[facility] Start: 10-08-2023 Refill Chris noguera MD Work Phone: Rheumatology Comment on above: Refill Request Start: 10-01-2023 End: 10-01-2023 ambulatory Gracy Leyva [facility] Start: 10-01-2023 Patient encounter procedure Gracy Leyva [facility] Comment on above: SPP Inflammatory Con ditions - Treatment Referral (Actemra); Insurance Authorization ([place] submission pending) Start: 10-01-2023 End: 10-01-2023 Office outpatient visit 40 minutes Chris Cody MD Work Phone: Rheumatology Comment on above: Seronegative rheumat oid arthritis (HCC) (Primary Dx); Chronic gout of multiple sites, unspecified cause; Calcium pyrophosphate deposition disease (CPPD); Generalized osteoarthritis; High risk medication use; Fibromyalgia; Elevated liver enzymes; Bilateral swelling of feet and ankles Start: 09-28-2023 End: 09-28-2023 ambulatory CHRIS CODY Facility:[facility] Start: 09-12-2023 Refill Chris noguera MD Work Phone: Rheumatology Comment on above: Refill Request Start: 08-20-2023 Telephone encounter Chris lawler MD Work Phone: Rheumatology Comment on above: Patient Question; Earnestine rodriguez Update Start: 06-26-2023 End: 06-26-2023 Office outpatient visit 40 minutes Chris Cody MD Work Phone: Rheumatology Comment on above: Chronic gout of mult iple sites, unspecified cause (Primary Dx); Hypertensive kidney disease with stage 3 chronic kidney disease, unspecified whether stage 3a or 3b CKD (HCC); Fibromyalgia; Elevated liver enzymes; High risk medication use Start: 06-11-2023 Refill Chris noguera MD Work Phone: Rheumatology Comment on above: Refill Request Start: 04-13-2023 Refill Chris noguera MD Work Phone: Rheumatology Comment on above: Refill Request Start: 04-12-2023 Refill Chris noguera MD Work Phone: Rheumatology Comment on above: Refill Request Start: 02-18-2023 Refill Chris noguera MD Work Phone: Rheumatology Comment on above: Refill Request Start: 02-17-2023 Specialty Pharmacy Marita Cervantes [facility] Comment on above: SPP Inflammatory Con ditions - Medication Refill (Humira CF) Start: 01-20-2023 ambulatory Marita Cervantes [facility] Start: 01-20-2023 Telephone encounter Chris lawler MD Work Phone: Rheumatology Comment on above: Results SPP Inflammatory Con ditions - Medication Refill (Humira CF) Start: 01-16-2023 End: 01-16-2023 Subsequent hospital visit by physician [facility] Ariela Joyner Work Phone: Radiology Comment on above: Seronegative rheumat oid arthritis (HCC) [M06.00] Start: 12-25-2022 Specialty Pharmacy Marita Cervantes [facility] Comment on above: SPP Inflammatory Con ditions - Medication Refill (Humira) Start: 11-21-2022 End: 11-21-2022 Subsequent hospital visit by physician [facility] Comment on above: Pain in joint, multi ple sites [M25.50] Start: 11-21-2022 End: 11-21-2022 Patient encounter procedure Gerson Mandujano APRN.[employer] Work Phone: Rheumatology Comment on above: Pain in joint, multi ple sites (Primary Dx) Start: 11-13-2022 Non-patient / Non-visit Dr. Mayur Adams Work Phone: [facility] Start: 11-13-2022 End: 11-13-2022 Admission to same day surgery center Dr. Shahab Adams Work Phone: [facility]End[facility] Work Phone: Start: 11-13-2022 End: 11-13-[address] Shahab Adams Work Phone: [facility] Work Phone: Start: 10-23-2022 End: 10-23-[address] Shahab Adams Work Phone: [facility] Work Phone: Start: 10-23-2022 End: 10-23-[address] Shahab Adams Work Phone: [facility]-Outpatient Bone Densitometry Work Phone: Start: 10-22-2022 Non-patient / Non-visit Dr. Mayur Adams Work Phone: [facility] Work Phone: Start: 09-24-2022 End: 09-24-[address] Shahab Adams [facility] Start: 08-21-2022 End: 08-21-[address] Shahab Adams Work Phone: [facility] Work Phone: Start: 08-21-2022 End: 08-21-[address] Shahab Adams Work Phone: [facility] Start: 07-31-2022 End: 07-31-[address] Shahab Adams Work Phone: [facility] Work Phone: Start: 07-31-2022 End: 07-31-[address] Shhaab Adams Work Phone: [facility] Start: 07-09-2022 End: 07-09-[address] Shahab Adams Work Phone: [facility] Work Phone: Start: 07-09-2022 End: 07-09-[address] Shahab Adams Work Phone: [facility] Start: 06-04-2022 Non-patient / Non-visit Dr. Mayur Adams Work Phone: [facility] Start: 06-03-2022 Non-patient / Non-visit Dr. Mayur Adams Work Phone: [facility] Start: 06-02-2022 Non-patient / Non-visit Dr. Mayur Adams Work Phone: [facility] Start: 06-02-2022 End: 06-02-2022 Non-patient / Non-visit Dr. Shahab Adams Work Phone: [facility] Start: 06-01-2022 Non-patient / Non-visit Dr. Mayur Adams Work Phone: [facility] Start: 06-01-2022 End: 06-04-2022 Evaluation and management of inpatient [facility]Medical Surgical 3 Start: 05-29-2022 End: 05-29-[address] Shahab Adams Work Phone: [facility] Work Phone: Start: 05-29-2022 End: 05-29-2022 [facility] Start: 05-10-2022 End: 05-10-2022 ambulatory [facility] Work Phone: Start: 05-10-2022 End: 05-10-2022 Patient encounter procedure [facility]Rad[facility], [facility] Start: 05-09-2022 End: 05-09-2022 ambulatory [facility] Work Phone: Start: 05-09-2022 End: 05-09-2022 Patient encounter procedure [facility]Laboratory, Specimen Start: 03-24-2022 End: 03-24-2022 ambulatory [facility] Work Phone: Start: 03-24-2022 End: 03-24-2022 Patient encounter procedure [facility], Bernard Sandoval [facility] Start: 12-12-2021 End: 12-12-[address] John Batista Work Phone: [facility] Work Phone: Start: 12-12-2021 End: 12-12-[address] John Batista Work Phone: [facility] Start: 10-09-2021 End: 10-09-[address] John Batista Work Phone: [facility] Start: 09-19-2021 End: 09-19-2021 Patient encounter procedure [facility]-MRI - H Start: 09-03-2021 Registered [facility] Start: 06-14-2021 End: 06-14-[address] John Batista Work Phone: [facility] Start: 05-08-2021 End: 05-08-[address] John Batista Work Phone: [facility] Start: 03-18-2021 End: 03-18-[address] John Batista Work Phone: [facility] Procedures Date Procedure Procedure Detail Performing Clinician Start: 08-18-2024 Blood count smear mc rscp w/mnl difrntl wbc count Dr. Shahab Adams DO Work Phone: Start: 08-18-2024 D-dimer assay, quantitative Dr. Shahab Adams DO Work Phone: Start: 08-18-2024 Mean corpuscular hem oglobin concentration determination Dr. Shahab Adams [employer] Work Phone: Start: 08-18-2024 Nucleated red blood cell count procedure Dr. Shahab Adams Work Phone: Start: 08-18-2024 Platelet mean volume determination Dr. Shahab Adams [employer] Work Phone: Start: 08-18-2024 Total iron binding c apacity measurement Dr. Shahab Adams Work Phone: Start: 08-04-2024 Blood count smear mc rscp w/mnl difrntl wbc count Dr. Shahab Adams [employer] Work Phone: Start: 08-04-[address] Shahab Adams [employer] Work Phone: Start: 08-04-2024 Mean corpuscular hem oglobin concentration determination Dr. Shahab Adams [employer] Work Phone: Start: 08-04-2024 Nucleated red blood cell count procedure Dr. Shahab Adams Work Phone: Start: 08-04-2024 Platelet mean volume determination Dr. Shahab Adams DO Work Phone: Start: 08-03-2024 Gram stain microscopy Marina Adams [employer] Phone: Start: 08-03-[address] Shahab Adams [employer] Work Phone: Start: 08-02-[address] Shahab Adams DO Work Phone: Start: 08-01-[address] Mayur Adams [employer] Phone: Start: 08-01-2024 Urine microscopy: red cells Dr. Shahab Adams DO Work Phone: Start: 08-01-2024 Urnls dip stick/tabl et reagent auto microscopy Dr. Shahab Adams DO Work Phone: Start: 08-01-[address] Shahab Adams DO Work Phone: Start: 08-01-2024 Legionella pneumophi la antigen assay Dr. Shahab Adams DO Work Phone: Start: 08-01-2024 SARS-CoV-2, Influenz a & RSV (PCR) Dr. Shahab Adams DO Work Phone: Start: 08-01-2024 End: 08-01-2024 Streptococcus pneumoniae antigen assay Dr. Shahab Adams DO Work Phone: Start: 08-01-[address] Shahab Adams DO Work Phone: Start: 08-01-2024 Dr. Shahab robert DO Work Phone: Start: 08-01-2024 X-ray of chest, PA a nd lateral views Dr. Shahab Adams DO Work Phone: Start: 08-01-[address] Shahab Adams DO Work Phone: Start: 07-20-2024 Gram stain microscopy D tanya Adams DO Work Phone: Start: 07-20-[address] Shahab Adams DO Work Phone: Start: 07-08-2024 Blood count smear mc rscp w/mnl difrntl wbc count Dr. Shahab Adams DO Work Phone: Start: 07-08-[address] Shahab Adams DO Work Phone: Start: 07-08-2024 Mean corpuscular hem oglobin concentration determination Dr. Shahab Adams DO Work Phone: Start: 07-08-2024 Nucleated red blood cell count procedure Dr. Shahab Adams DO Work Phone: Start: 07-08-2024 Platelet mean volume determination Dr. Shahab Adams DO Work Phone: Start: 07-08-2024 X-ray of chest, PA a nd lateral views Dr. Shahab Adams DO Work Phone: Start: 07-08-2024 SARS-CoV-2, Influenz a & RSV (PCR) Dr. Shahab Adams DO Work Phone: Start: 07-08-2024 Dr. Shahab robert DO Work Phone: Start: 06-29-2024 X-ray of chest, PA a nd lateral views Dr. Shahab Adams DO Work Phone: Start: 06-28-2024 Blood count smear mc rscp w/mnl difrntl wbc count Dr. Shahab Adams DO Work Phone: Start: 06-28-[address] Shahab Adams DO Work Phone: Start: 06-28-2024 Mean corpuscular hem oglobin concentration determination Dr. Shahab Adams DO Work Phone: Start: 06-28-2024 Nucleated red blood cell count procedure Dr. Shahab Adams DO Work Phone: Start: 06-28-2024 Platelet mean volume determination Dr. Shahab Adams DO Work Phone: Start: 06-27-2024 Carbon dioxide measu rement, partial pressure Dr. Shahab Adams DO Work Phone: Start: 06-27-2024 Gases blood o2 satur ation only direct is[place] Dr. Shahab Adams DO Work Phone: Start: 06-27-2024 Measurement of parti al pressure of oxygen in blood Dr. Shahab Adams DO Work Phone: Start: 06-27-[address] Shahab Adams DO Work Phone: Start: 06-27-2024 X-ray of chest, PA a nd lateral views Dr. Shahab Adams DO Work Phone: Start: 06-27-[address] Mayur Adams DO Work Phone: Start: 06-27-[address] Shahab Adams DO Work Phone: Start: 06-27-2024 Legionella pneumophi la antigen assay Dr. Shahab Adams DO Work Phone: Start: 06-27-[address] Shahab Adams DO Work Phone: Start: 06-27-2024 SARS-CoV-2, Influenz a & RSV (PCR) Dr. Shahab Adams DO Work Phone: Start: 06-27-2024 End: 06-27-2024 Streptococcus pneumoniae antigen assay Dr. Shahab Adams DO Work Phone: Start: 06-27-2024 Dr. Shahab robert DO Work Phone: Start: 06-12-[address] Shahab Adams DO Work Phone: Start: 06-12-2024 Mean corpuscular hem oglobin concentration determination Dr. Shahab Adams DO Work Phone: Start: 06-12-2024 Platelet mean volume determination Dr. Shahab Adams DO Work Phone: Start: 06-11-[address] Shahab Adams DO Work Phone: Start: 06-11-2024 Sars-cov-2 Dr. Shahab robert DO Work Phone: Start: 06-11-2024 Blood count smear rscp w/mnl difrntl wbc count Dr. Shahab Adams DO Work Phone: Start: 06-11-2024 Nucleated red blood cell count procedure Dr. Shahab Adams DO Work Phone: Start: 06-11-2024 Serum inorganic phos phate measurement Dr. Shahab Adams DO Work Phone: Start: 06-10-2024 CT angiography of ch est with contrast Dr. Shahab Adams DO Work Phone: Start: 06-10-2024 X-ray of chest, PA a nd lateral views Dr. Shahab Adams DO Work Phone: Start: 06-10-2024 D-dimer assay, quantitative Dr. Shahab Adams DO Work Phone: Comment on above: CRITICAL VALUE UMANA D TO MARINA MG RN [id number] Nick Fisher.RESULTS READ BACK BY SAME . D-Dimer ELEVATED (>0.49): Additional studies and clinicalassessments are indicated to conclude diagnosis of:Deep Vein Thrombosis (DVT) or Pulmonary Embolism (PE) Start: 05-09-2024 Plain chest X-ray Dr. Corry Adams DO Work Phone: Start: 05-09-2024 Blood count smear mc rscp w/mnl difrntl wbc count Dr. Shahab Adams DO Work Phone: Start: 05-09-[address] Shahab Adams DO Work Phone: Start: 05-09-2024 Mean corpuscular hem oglobin concentration determination Dr. Shahab Adams DO Work Phone: Start: 05-09-2024 Nucleated red blood cell count procedure Dr. Shahab Adams DO Work Phone: Start: 05-09-2024 Platelet mean volume determination Dr. Shahab Adams DO Work Phone: Start: 05-09-2024 SARS-CoV-2, Influenz a & RSV (PCR) Dr. Shahab Adams DO Work Phone: Start: 05-09-2024 Dr. Shahab robert DO Work Phone: Start: 04-07-2024 End: 04-07-2024 Computerized ophthalmic imaging retina Christy Deng MD Work Phone: Start: 11-21-2022 Radex shoulder compl ete minimum 2 views Gerson Mandujano APRN.[employer] Work Phone: Start: 11-13-[address] Shahab robert Work Phone: Start: 10-23-2022 Dual energy X-ray absorptiometry Dr. Shahab Adams Work Phone: Start: 06-02-2022 Implantation of elec tronic stimulator of spine Dr. Shahab Adams Work Phone: Start: 06-02-[address] Shahab Adams Work Phone: Start: 06-02-[address] Shahab Adams Work Phone: Start: 06-02-2022 Investigation of tra nsfusion reaction Dr. Shahab Adams Work Phone: Start: 06-02-2022 Plain chest X-ray Dr. Corry Adams Work Phone: Start: 06-01-2022 Bacteria identified in Blood by Culture Dr. Shahab Adams Work Phone: Start: 06-01-2022 Computed tomography of abdomen and pelvis with contrast Start: 09-19-2021 MRI of lumbar spine Start: 12-19-2011 Lipid 1996 panel - S jimy or Plasma Gerson Mandujano APRN.[employer] Work Phone: Aerobic microbial culture Dr Judith Adams Work Phone: Anaerobic microbial culture Dr. Shahab Adams Work Phone: Bacteria identified in Blood by Culture Dr. Shahab Adams Work Phone: Investigation of tra nsfusion reaction Investigation of tra nsfusion reaction Dr. Shahab Adams Work Phone: Microbial culture, routine Microbial culture, routine D tanya Adams Work Phone: Plan of Treatment Date Care Activity Detail Author Start: 05-27-2027 Diabetes Screening Diabetes Screening [facility] Start: 04-08-2027 Diabetes Screening Diabetes Screening [facility] Start: 11-21-2025 Diabetes Screening Diabetes Screening [facility] Start: 05-26-2025 Complete blood count Hemoglobin/Hematocrit [facility] Start: 05-26-2025 Creatinine measurement Serum Creatinine [facility] Start: 04-22-2025 End: 09-29-2025 Camera fundoscopy FUNDUS PHOTOS OU (BOTH EYES) OPHT Imaging Routine Long-term use of Plaquenil Nuclear senile cataract of both eyes Encounter for long-term (current) drug use Expected: 04/22/2025, Expires: 09/29/2025 [facility] Comment on above: Expected: 04/22/2025, Expires: Start: 04-22-2025 End: 09-29-2025 FUNDUS AUTOFLUORESCENCE PHOTO (FAF) OU (BOTH EYES) FUNDUS AUTOFLUORESCENCE PHOTO (FAF) OU (BOTH EYES) OPHT Imaging Routine Long-term use of Plaquenil Nuclear senile cataract of both eyes Encounter for long-term (current) drug use Expected: 04/22/2025, Expires: 09/29/2025 [facility] Comment on above: Expected: 04/22/2025, Expires: Start: 04-22-2025 End: 09-29-2025 OCT MACULA CIRRUS OU (BOTH EYES) OCT MACULA CIRRUS OU (BOTH EYES) OPHT Imaging Routine Long-term use of Plaquenil Nuclear senile cataract of both eyes Encounter for long-term (current) drug use Expected: 04/22/2025, Expires: 09/29/2025 [facility] Work Phone: Comment on above: Expected: 04/22/2025, Expires: Start: 04-22-2025 End: 09-29-2025 VISUAL FIELD 10-2 OU (BOTH EYES) VISUAL FIELD 10-2 OU (BOTH EYES) OPHT Imaging Routine Long-term use of Plaquenil Nuclear senile cataract of both eyes Encounter for long-term (current) drug use Expected: 04/22/2025, Expires: 09/29/2025 [facility] Comment on above: Expected: 04/22/2025, Expires: Start: 04-22-2025 End: 09-29-2025 VISUAL FIELD 24-2 OU (BOTH EYES) VISUAL FIELD 24-2 OU (BOTH EYES) OPHT Imaging Routine Long-term use of Plaquenil Nuclear senile cataract of both eyes Encounter for long-term (current) drug use Expected: 04/22/2025, Expires: 09/29/2025 [facility] Comment on above: Expected: 04/22/2025, Expires: Start: 04-08-2025 Complete blood count Hemoglobin/Hematocrit [facility] Start: 04-08-2025 Creatinine measurement Serum Creatinine [facility] Start: 12-29-2024 Complete blood count Hemoglobin/Hematocrit [facility] Start: 12-29-2024 Creatinine measurement Serum Creatinine [facility] Start: 11-07-2024 Influenza vaccination Influenza Vaccine (Season Ended) [facility] Start: 09-27-2024 Complete blood count Hemoglobin/Hematocrit [facility] Start: 09-27-2024 Creatinine measurement Serum Creatinine [facility] Start: 08-26-2024 End: 08-26-2024 Specialty Pharmacy 08/26/2024 8:15 AM EDT Specialty Pharmacy [facility] [address] [place] [phone] Pharmacist, [facility] [address] [place] [address] [place] [address] REFILL - Humira(Fridays). PA exp 12/01/24 ND 09/02-lvm 08/23 [facility] Comment on above: REFILL - Humira(Fridays). PA exp 5 ND 09/02-lvm 08/23 Start: 08-23-2024 End: 08-23-2024 Specialty Pharmacy 08/23/2024 8:15 AM EDT Specialty Pharmacy [facility] [address] [place] [address] Pharmacist, [facility] [address] [place] [address] [place] [address] REFILL - Humira(Fridays). PA exp 12/01/2409/02 [facility] Comment on above: REFILL - Humira(Fridays). PA exp 09/02 Start: 08-18-2024 C reactive protein [Mass/volume] in Serum or Plasma [facility] Start: 08-18-2024 CBC W Auto Differential panel - Blood [facility] Start: 08-18-2024 D-dimer assay, quantitative [facility] Start: 08-18-2024 Erythrocyte sedimentation rate [facility] Start: 08-18-2024 Iron and Iron binding capacity panel - Serum or Plasma [facility] Start: 08-18-2024 Lactate dehydrogenase measurement [facility] Start: 08-18-2024 Procedure [facility] Start: 08-18-2024 [facility] Start: 08-05-2024 Measurement of respiratory function [facility] Start: 08-04-2024 Patient discharge [facility] Start: 08-04-2024 End: 08-04-2024 Patient encounter procedure Ophthalmology Comment on above: Return in about 3 months (around 07/07/19). Start: 08-04-2024 End: 08-04-2024 Patient encounter procedure 08/04/2024 8:40 AM EDT Office Visit Rheumatology [address] [address] Chris Cody MD [address] [id number] FOLLOW UP Rheumatology Comment on above: FOLLOW UP Start: 08-03-2024 Respiratory microbial culture [facility] Start: 08-02-2024 Consultation [facility] Start: 08-02-2024 Basic metabolic 2008 panel with ionized calcium - Serum or Plasma [facility] Start: 08-02-2024 CBC W Auto Differential panel - Blood [facility] Start: 08-01-2024 Following clinical pathway protocol [facility] Start: 08-01-2024 Bacterial nucleic acid assay [facility] Start: 08-01-2024 Streptococcus pneumoniae antigen assay [facility] Start: 08-01-2024 Ambulation without limitation [facility] Start: 08-01-2024 Assessment of risk of venous thromboembolism [facility] Start: 08-01-2024 Bacteria identified in Sputum by Culture [facility] Start: 08-01-2024 Catheterization of vein [facility] Start: 08-01-2024 Insertion of catheter into peripheral vein [facility] Start: 08-01-2024 Measuring intake and output [facility] Start: 08-01-2024 Oxygen therapy [facility] Start: 08-01-2024 Physiotherapy of chest [facility] Start: 08-01-2024 Providing care according to standard [facility] Start: 08-01-2024 Respiratory therapy [facility] Start: 08-01-2024 End: 08-01-2024 [facility] Start: 08-01-2024 Bacterial nucleic acid assay [facility] Start: 08-01-2024 Legionella pneumophila Ag [Presence] in Urine [facility] Start: 08-01-2024 Streptococcus pneumoniae antigen assay [facility] Start: 08-01-2024 Urinalysis complete panel - Urine [facility] Start: 08-01-2024 Verification routine [facility] Start: 08-01-2024 Admission procedure [facility] Start: 08-01-2024 End: 08-01-2024 [facility] Start: 08-01-2024 Bacteria identified in Blood by Culture Blood Culture [facility] Start: 08-01-2024 Bacteria identified in Urine by Culture Urine Culture [facility] Start: 08-01-2024 Blood culture [facility] Start: 08-01-2024 Inhalation therapy procedure [facility] Start: 08-01-2024 Patient referral to dietitian [facility] Start: 07-28-2024 Walking distance 6 minutes [facility] Start: 07-27-2024 End: 07-27-2024 Specialty Pharmacy 07/27/2024 8:00 AM EDT Specialty Pharmacy [facility] [address] [place] [address] [id number] [place], [place] [phone] Pharmacist, [facility] [address] [place] [address] REFILL - Humira(Fridays). PA exp 12/01/2408/05 [facility] Comment on above: REFILL - Humira(Fridays). PA exp 08/05 Start: 07-20-2024 Patient referral [facility] Work Phone: Start: 07-20-2024 Respiratory microbial culture Respiratory Culture [facility] Start: 07-08-2024 [facility] Start: 07-08-2024 [facility] Start: 07-06-2024 End: 07-06-2024 Patient encounter procedure Ophthalmology Comment on above: Return in about 3 months (around 07/07/19). Start: 07-05-2024 Complete blood count Hemoglobin/Hematocrit [facility] Start: 07-05-2024 Creatinine measurement Serum Creatinine [facility] Start: 06-30-2024 End: 06-30-2024 Specialty Pharmacy 06/30/2024 8:15 AM EDT Specialty Pharmacy [facility] [address] [place] [address] [id number] [place] [address] Pharmacist, [facility] 2 [facility] [place] [address] REFILL - Humira(Fridays). PA exp 12/01/2407/08 [facility] Comment on above: REFILL - Humira(Fridays). PA exp 07/08 Start: 06-29-2024 Patient discharge [facility] Start: 06-29-2024 Oxygen therapy [facility] Start: 06-27-2024 Following clinical pathway protocol [facility] Start: 06-27-2024 Assessment of risk of venous thromboembolism [facility] Start: 06-27-2024 Bacteria identified in Sputum by Culture [facility] Start: 06-27-2024 Elevation of head of bed [facility] Start: 06-27-2024 Inhalation therapy procedure [facility] Start: 06-27-2024 Insertion of catheter into peripheral vein [facility] Start: 06-27-2024 Patient education [facility] Start: 06-27-2024 Providing care according to standard [facility] Start: 06-27-2024 Provision of activity privileges [facility] Start: 06-27-2024 Referral to service [facility] Start: 06-27-2024 [facility] Start: 06-27-2024 Verification routine [facility] Start: 06-27-2024 Admission procedure [facility] Start: 06-27-2024 Hospital admission, emergency, from emergency room, medical nature [facility] Start: 06-27-2024 End: 06-27-2024 [facility] Start: 06-27-2024 Bacteria identified in Blood by Culture Blood Culture [facility] Start: 06-27-2024 Blood culture Blood Culture [facility] Start: 06-27-2024 End: 06-27-2024 [facility] Start: 06-25-2024 BP Controlled (<130/80) BP Controlled (<130/80) [facility] Start: 06-22-2024 Complete blood count Hemoglobin/Hematocrit [facility] Start: 06-22-2024 Creatinine measurement Serum Creatinine [facility] Start: 06-14-2024 Complete blood count [facility] Start: 06-13-2024 Complete blood count [facility] Start: 06-12-2024 Patient discharge [facility] Start: 06-12-2024 Complete blood count [facility] Start: 06-11-2024 Following clinical pathway protocol [facility] Start: 06-11-2024 Assessment of risk of venous thromboembolism [facility] Start: 06-11-2024 Fall prevention [facility] Start: 06-11-2024 Incentive spirometry [facility] Start: 06-11-2024 Inhalation therapy procedure [facility] Start: 06-11-2024 Insertion of catheter into peripheral vein [facility] Start: 06-11-2024 Introduction of urinary catheter [facility] Start: 06-11-2024 Measuring intake and output [facility] Start: 06-11-2024 Oxygen therapy [facility] Start: 06-11-2024 Providing care according to standard [facility] Start: 06-11-2024 Provision of activity privileges [facility] Start: 06-11-2024 Referral to service [facility] Start: 06-11-2024 [facility] Start: 06-10-2024 Respiratory pathogens DNA and RNA panel - Respiratory specimen by RON with probe detection [facility] Start: 06-10-2024 Sars-cov-2 [facility] Start: 06-10-2024 Verification routine [facility] Start: 06-10-2024 Admission procedure [facility] Start: 06-10-2024 Hospital admission, emergency, from emergency room, medical nature [facility] Start: 06-10-2024 [facility] Start: 06-10-2024 End: 06-11-2024 [facility] Start: 06-06-2024 End: 06-06-2024 Specialty Pharmacy 06/06/2024 8:15 AM EDT Specialty Pharmacy [facility] [address] [place] [address] Pharmacist, [facility] [address] [place] [address] [place] [address] REFILL - Humira(Fridays). PA exp 12/01/2406/10 lvm 06/01 [facility] Comment on above: REFILL - Humira(Fridays). PA exp 06/10 lvm 06/01 Start: 06-01-2024 End: 06-01-2024 Specialty Pharmacy 06/01/2024 8:30 AM EDT Specialty Pharmacy [facility] [address] [place] [address] Pharmacist, [facility] [address] [place] [address] [place] [address] REFILL - Humira(Fridays). PA exp 12/01/2406/10 [facility] Comment on above: REFILL - Humira(Fridays). PA exp 06/10 Start: 05-31-2024 End: 05-31-2024 Specialty Pharmacy 05/31/2024 8:00 AM EDT Specialty Pharmacy [facility] [address] [place] [address] Pharmacist, [facility] [address] [place] [address] [place] [address] REFILL - Humira(Fridays). PA exp 03/08/2506/10 [facility] Comment on above: REFILL - Humira(Fridays). PA exp 5 06/10 Start: 05-26-2024 End: 08-25-2024 Ascorbate [Mass/volume] in Serum or Plasma [facility] Work Phone: Comment on above: Expected: 05/26/2024, Expires: Start: 05-26-2024 End: 05-26-2024 Patient encounter procedure 05/26/2024 11:00 AM EDT Office Visit Rheumatology [address] [address] Chris Cody MD [address] [place] [address] 6 week follow up per walk up. Rheumatology Comment on above: 6 week follow up per walk up. Start: 05-09-2024 [facility] Start: 05-09-2024 [facility] Start: 05-04-2024 End: 05-04-2024 Specialty Pharmacy 05/04/2024 8:15 AM EST [facility]ty [facility]acy [facility] [address] [place] [address] Pharmacist, [facility] [address] [place] [address] REFILL - Humira(Fridays). PA exp 03/08/25 checking with RPH 05/03 [facility] Comment on above: REFILL - Humira(Fridays). PA exp checking with RPH 05/03 Start: 05-03-2024 End: 05-03-2024 Specialty Pharmacy 05/03/2024 8:00 AM EST Specialty Pharmacy [facility] [employer] [address] [address] Pharmacist, [facility] [address] [place] [address] [place] [address] REFILL - Humira(Fridays). EARNESTINE exp 03/08/25 [facility] Comment on above: REFILL - Humira(Fridays). EARNESTINE exp Start: 04-07-2024 End: 07-07-2024 C reactive protein [Mass/volume] in Serum or Plasma C-REACTIVE PROTEIN Lab Routine Seronegative rheumatoid arthritis (HCC) High risk medication use Elevated liver enzymes Expected: 04/07/2024, Expires: 07/07/2024 [facility] Comment on above: Expected: 04/07/2024, Expires: Start: 04-07-2024 End: 07-07-2024 CBC W Auto Differential panel - Blood COMPLETE BLOOD COUNT AND DIFFERENTIAL Lab Routine Seronegative rheumatoid arthritis (HCC) High risk medication use Elevated liver enzymes Expected: 04/07/2024, Expires: 07/07/2024 [facility] Work Phone: Comment on above: Expected: 04/07/2024, Expires: Start: 04-07-2024 End: 07-07-2024 Comprehensive metabolic 2000 panel - Serum or Plasma COMPREHENSIVE METABOLIC PANEL Lab Routine Seronegative rheumatoid arthritis (HCC) High risk medication use Elevated liver enzymes Expected: 04/07/2024, Expires: 07/07/2024 [facility] Comment on above: Expected: 04/07/2024, Expires: Start: 04-07-2024 End: 07-07-2024 Erythrocyte sedimentation rate SEDIMENTATION RATE, WESTERGREN Lab Routine Seronegative rheumatoid arthritis (HCC) High risk medication use Elevated liver enzymes Expected: 04/07/2024, Expires: 07/07/2024 [facility] Comment on above: Expected: 04/07/2024, Expires: Start: 04-07-2024 End: 04-07-2024 Patient encounter procedure Ophthalmology Comment on above: possible plaquenil toxicity left eye 3mo f/u Start: 04-04-2024 End: 04-04-2024 Specialty Pharmacy 04/04/2024 8:15 AM EST [facility]ty Pharmacy [facility] [place] [address] Pharmacist, [facility] [address] [place] [address] [place] [address] REFILL - Humira(Fridays). PA exp 03/08/25 [facility] Comment on above: REFILL - Humira(Fridays). PA exp 5 Start: 03-23-2024 End: 03-23-2024 Specialty Pharmacy 03/23/2024 8:15 AM EST Specialty Pharmacy [facility] [address] [place] [address] Pharmacist, [facility] [address] [place] [address] [place] [address] REFILL - Humira(Fridays). PA exp 03/08/24 - refill call 04/04; scheduled early for pa renewal [facility] Comment on above: REFILL - Humira(Fridays). PA exp 4 - refill call 04/04; scheduled early for pa renewal Start: 03-21-2024 End: 03-21-2024 Specialty Pharmacy 03/21/2024 8:15 AM EST Specialty Pharmacy [facility] [address] [place] [phone] Pharmacist, [facility] [address] [place] [address] [place] [address] REFILL - Humira(Fridays). PA exp 03/08/24 - refill call 04/04; scheduled early for pa renewal [facility] Comment on above: REFILL - Humira(Fridays). PA exp 4 - refill call 04/04; scheduled early for pa renewal Start: 03-09-2024 Advance Directive Discussion Advance Directive Discussion [facility] Start: 03-09-2024 Medicare Advantage Annual Wellness Visit Medicare Advantage Annual Wellness Visit [facility] Start: 03-07-2024 End: 03-07-2024 Specialty Pharmacy 03/07/2024 8:00 AM EST Specialty Pharmacy [facility] [address] [place] [address] Pharmacist, [facility] [address] [place] [address] [place] [address] REFILL - Humira(Fridays). PA exp 03/08/24. -pending pa renewal [facility] Comment on above: REFILL - Humira(Fridays). PA exp 4. -pending pa renewal Start: 01-20-2024 End: 01-20-2024 Specialty Pharmacy 01/20/2024 8:00 AM EST Specialty Pharmacy [facility] [address] [place] [address] Pharmacist, [facility] [address] [place] [address] [place] [address] REFILL - Humira. PA exp 03/08/24. ND?- Dose increase to once a week? [facility] Comment on above: REFILL - Humira. PA exp 03/08/24. ND?- D ose increase to once a week? Start: 01-08-2024 End: 01-08-2024 Specialty Pharmacy 01/08/2024 8:15 AM EDT Specialty Pharmacy [facility] [address] [place] [address] Pharmacist, [facility] [address] [place] [address] [place] [address] REFILL - Humira. PA exp 12/03/23. ND 01/07-PA needs appeal [facility] Comment on above: REFILL - Humira. PA exp 12/03/23. ND -PA needs appeal Start: 01-04-2024 End: 01-04-2024 Patient encounter procedure 01/04/2024 9:45 AM EDT Office Visit OPHT Emir Adams [address] [place], [place] [id number] Jose Maria Reed MD 1 [facility] [address] [address] [place], [place] [phone] plaquenil check Emir Adams Comment on above: plaquenil check Start: 01-01-2024 End: 01-01-2024 Patient encounter procedure 01/01/2024 10:40 AM EDT Office Visit Rheumatology [address] [address] Chris Cody MD [address] [place] [address] 3mo f/u Rheumatology Comment on above: 3mo f/u Start: 12-23-2023 End: 12-23-2023 Specialty Pharmacy 12/23/2023 8:00 AM EDT Specialty Pharmacy [facility] [address] [place] [address] Pharmacist, [facility] [address] [place] [address] [place] [address] REFILL - Humira. PA exp 12/03/23. ND 01/07-PA SUB 12/01 [facility] Comment on above: REFILL - Humira. PA exp 12/03/23. ND -PA SUB 12/01 Start: 12-18-2023 End: 12-18-2023 Patient encounter procedure 12/18/2023 8:45 AM EDT Office Visit OPHT [facility] [address] [place] [address] Jose Maria Reed MD 1 [facility] [address] [address] [place] [address] plaquenil check [facility] Comment on above: plaquenil check Start: 12-09-2023 End: 12-09-2023 Specialty Pharmacy 12/09/2023 8:00 AM EDT Specialty Pharmacy [facility] [address] [place] [address] [phone] Pharmacist, [facility] [address] [place] [address] [address] [place], [place] [phone] REFILL - Humira. PA exp 12/03/23. ND 01/07-PA SUB 12/01 [facility] Comment on above: REFILL - Humira. PA exp 12/03/23. ND -PA SUB 12/01 Start: 12-02-2023 End: 12-02-2023 Specialty Pharmacy 12/02/2023 8:15 AM EDT Specialty Pharmacy [facility] [address] [place] [address] Pharmacist, [facility] [address] [place] [address] [place] [address] REFILL - Humira. PA exp 12/03/23. ND 01/07 [facility] Comment on above: REFILL - Humira. PA exp 12/03/23. ND Start: 11-30-2023 End: 11-30-2023 Specialty Pharmacy 11/30/2023 8:00 AM EDT Specialty Pharmacy [facility] [address] [place] [phone] Pharmacist, [facility] [address] [place] [address] [place] [address] REFILL - Humira. PA exp 12/03/23. ND 12/10 [facility] Comment on above: REFILL - Humira. PA exp 12/03/23. ND Start: 11-08-2023 Influenza vaccination [facility] Start: 11-02-2023 Advance Directive Discussion Advance Directive Discussion [facility] Start: 11-02-2023 Screening for osteoporosis Bone Density Screening [facility] Start: 10-01-2023 End: 10-01-2023 Patient encounter procedure 10/01/2023 10:40 AM EDT Office Visit Rheumatology [address] [address] Chris Cody MD [address] [place], [place] [phone] 3m fu per walk up Rheumatology Comment on above: 3m fu per walk up Start: 06-28-2023 End: 09-27-2023 Acute hepatitis 2000 panel - Serum HEP ACUTE PANEL BL Lab Routine Elevated liver enzymes High risk medication use Expected: 06/28/2023, Expires: 09/27/2023 [facility] Work Phone: Comment on above: Expected: 06/28/2023, Expires: Start: 06-28-2023 End: 09-27-2023 Hepatic function 2000 panel - Serum or Plasma HEPATIC FUNCTION PNL Lab Routine Elevated liver enzymes High risk medication use Expected: 06/28/2023, Expires: 09/27/2023 [facility] Work Phone: Comment on above: Expected: 06/28/2023, Expires: 4 Start: 03-09-2023 Behavioral Health Screening Behavioral Health Screening [facility] Start: 03-09-2023 Depression Assessment Depression Assessment [facility] Start: 11-21-2022 End: 01-21-2023 BLOOD TB SCREEN [facility] Work Phone: Comment on above: Expected: 11/21/2022 (Approximate), Expi res: 01/21/2023 Start: 11-21-2022 End: 01-21-2023 Chronic hepatitis differentiation between hepatitis B and C virus panel - Serum or Plasma [facility] Work Phone: Comment on above: Expected: 11/21/2022 (Approximate), Expi res: 01/21/2023 Start: 11-21-2022 End: 01-21-2023 Cyclic citrullinated peptide IgG Ab [Units/volume] in Serum or Plasma [facility] Work Phone: Comment on above: Expected: 11/21/2022 (Approximate), Expi res: 01/21/2023 Start: 11-21-2022 End: 01-21-2023 Rheumatoid factor [Units/volume] in Serum or Plasma [facility] Work Phone: Comment on above: Expected: 11/21/2022 (Approximate), Expi res: 01/21/2023 Start: 11-13-2022 Patient discharge [facility] Start: 11-07-2022 Covid-19 Vaccine () Covid-19 Vaccine () [facility] Start: 11-07-2022 Influenza vaccination Influenza Vaccine (#1) [facility] Start: 06-07-2022 Blood chemistry [facility] Start: 06-06-2022 Blood chemistry [facility] Start: 06-05-2022 Blood chemistry [facility] Start: 06-04-2022 Patient discharge [facility] Start: 06-04-2022 Blood chemistry [facility] Start: 06-03-2022 [facility] Start: 06-02-2022 Wound care [facility] Start: 06-02-2022 Consultation [facility] Start: 06-01-2022 End: 06-02-2022 [facility] Start: 06-01-2022 Consultation for pain [facility] Start: 06-01-2022 Application of intermittent pneumatic compression device [facility] Start: 06-01-2022 Following clinical pathway protocol [facility] Start: 06-01-2022 Assessment of risk of venous thromboembolism [facility] Start: 06-01-2022 Insertion of catheter into peripheral vein [facility] Start: 06-01-2022 Providing care according to standard [facility] Start: 06-01-2022 Provision of activity privileges [facility] Start: 06-01-2022 Referral to service [facility] Start: 06-01-2022 Verification routine [facility] Start: 06-01-2022 Admission procedure [facility] Start: 06-01-2022 End: 06-01-2022 Blood culture [facility] Start: 06-01-2022 Patient referral to dietitian [facility] Start: 03-09-2022 Depression Assessment Depression Assessment [facility] Start: 2018 RSV Vaccine (1 - 1-dose 60+ series) RSV Vaccine (1 - 1-dose 60+ series) [facility] Start: 2018 RSV Vaccine (1 - Risk 60-74 years 1-dose series) RSV Vaccine (1 - Risk 60-74 years 1-dose series) [facility] Start: 12-18-2016 Lipid 1996 panel - Serum or Plasma Lipid Screening [facility] Start: 12-18-2016 Lipid panel Lipid Screening [facility] Start: 2008 Shingrix Vaccine (1 of 2) Shingrix Vaccine (1 of 2) [facility] Start: 11-02-2003 Cologuard (FIT-DNA) Cologuard (FIT-DNA) [facility] Start: 11-02-2003 Colonoscopy Colonoscopy [facility] Start: 11-02-2003 Colorectal Cancer Screening Colorectal Cancer Screening [facility] Start: 11-02-[address] COLONOGRAPHY [facility] Start: 11-02-2003 Fecal Occult Blood Fecal Occult Blood [facility] Start: 11-02-2003 Screening for malignant neoplasm of colon [facility] Start: 11-02-2003 SIGMOIDOSCOPY SIGMOIDOSCOPY [facility] Start: 1998 Mammography Mammogram Screening [facility] Start: 1998 Screening for malignant neoplasm of breast Mammogram Screening [facility] Start: 1988 HPV Testing HPV Testing [facility] Start: 1988 Screening for malignant neoplasm of cervix HPV Testing [facility] Start: 11-02-1979 Pap Testing [facility] [facility] Start: 11-02-1979 Screening for malignant neoplasm of cervix [facility] Start: 1977 Pneumococcal Vaccine: 50+ (1 of 2 - PCV) Pneumococcal Vaccine: 50+ (1 of 2 - PCV) [facility] Start: 1977 Shingrix Vaccine (1 of 2) Shingrix Vaccine (1 of 2) [facility] Start: 1977 Urine microalbumin profile DTaP,Tdap,Td Vaccine (1 - Tdap) [facility] Start: 1976 Annual PCP Team Chronic Disease Visit Annual PCP Team Chronic Disease Visit [facility] Start: 1976 Anxiety Screening Anxiety Screening [facility] Start: 1976 BP Controlled (<130/80) BP Controlled (<130/80) [facility] Start: 1976 Depression Screening Depression Screening [facility] Start: 1976 Hepatitis C Screening Hepatitis C Screening [facility] Start: 1976 HIV Screening HIV Screening [facility] Start: 1976 HIV screening HIV Screening [facility] Start: 1969 Screening for malignant neoplasm of cervix Cervical Cancer Screening [facility] Start: 1964 Pneumococcal vaccination [facility] Start: 1964 Pneumococcal Vaccine: 65+ (1 of 2 - PCV) Pneumococcal Vaccine: 65+ (1 of 2 - PCV) [facility] Start: 11-02-1963 Covid-19 Vaccine (#1) Covid-19 Vaccine (#1) [facility] Start: 05-04-1959 Covid-19 Vaccine (#1) Covid-19 Vaccine (#1) [facility] Aerobic microbial culture Tissue Culture [facility] Anaerobic Culture Anaerobic [facility] Anion gap in Serum o r Plasma [facility] Anion gap in Serum o r Plasma [facility] Anion gap in Serum o r Plasma [facility] Anion gap in Serum o r Plasma [facility] Anion gap measurement [facility] r [facility] Anion gap measurement [facility] r [facility] Anion gap measurement [facility] r [facility] Anion gap measurement [facility] Bacteria identified in Blood by Culture Blood Culture [facility] Bacteria identified in Blood by Culture Blood Culture [facility] Bacteria identified in Unspecified specimen by Anaerobe culture [facility] BUN/Creatinine ratio [facility] BUN/Creatinine ratio [facility] BUN/Creatinine ratio [facility] BUN/Creatinine ratio [facility] BUN/Creatinine ratio [facility] BUN/Creatinine ratio [facility] BUN/Creatinine ratio [facility] BUN/Creatinine ratio [facility] C reactive protein [Mass/volume] in Serum or Plasma [facility] C reactive protein [Mass/volume] in Serum or Plasma [facility] C reactive protein [Mass/volume] in Serum or Plasma [facility] C reactive protein [Mass/volume] in Serum or Plasma [facility] Calcium [Mass/volume ] in Serum or Plasma [facility] Calcium [Mass/volume ] in Serum or Plasma [facility] Calcium [Mass/volume ] in Serum or Plasma [facility] Calcium [Mass/volume ] in Serum or Plasma [facility] Calcium [Mass/volume ] in Serum or Plasma [facility] Calcium [Mass/volume ] in Serum or Plasma [facility] Calcium [Mass/volume ] in Serum or Plasma [facility] Calcium [Mass/volume ] in Serum or Plasma [facility] Carbon dioxide, tota l [Moles/volume] in Central venous blood [facility] Carbon dioxide, tota l [Moles/volume] in Central venous blood [facility] Carbon dioxide, tota l [Moles/volume] in Central venous blood [facility] Carbon dioxide, tota l [Moles/volume] in Central venous blood [facility] Carbon dioxide, tota l [Moles/volume] in Serum or Plasma [facility] Carbon dioxide, tota l [Moles/volume] in Serum or Plasma [facility] Carbon dioxide, tota l [Moles/volume] in Serum or Plasma [facility] Carbon dioxide, tota l [Moles/volume] in Serum or Plasma [facility] Chloride [Moles/volu me] in Serum or Plasma [facility] Chloride [Moles/volu me] in Serum or Plasma [facility] Chloride [Moles/volu me] in Serum or Plasma [facility] Chloride [Moles/volu me] in Serum or Plasma [facility] Colonoscopy [facility] Creatinine [Mass/vol ume] in Serum or Plasma [facility] Creatinine [Mass/vol ume] in Serum or Plasma [facility] Creatinine [Mass/vol ume] in Serum or Plasma [facility] Creatinine [Mass/vol ume] in Serum or Plasma [facility] Creatinine [Moles/volume] in Serum or Plasma [facility] Creatinine [Moles/volume] in Serum or Plasma [facility] Creatinine [Moles/volume] in Serum or Plasma [facility] Creatinine [Moles/volume] in Serum or Plasma [facility] End: 02-19-[address] CT [address]ESSING CT 3D POST PROCESSING Radiology Routine Chronic foot pain, unspecified laterality Hyperuricemia Pain in both feet 1 Occurrences starting 01/20/2023 until 02/19/2024 [facility] Work Phone: Comment on above: 1 Occurrences starting 01/20/2023 until 02/19/2024 End: 02-19-2024 CT FOOT WO IVCON RIGHT CT FOOT WO IVCON RIGHT Radiology Routine Chronic foot pain, unspecified laterality Hyperuricemia Pain in both feet 1 Occurrences starting 01/20/2023 until 02/19/2024 [facility] Work Phone: Comment on above: 1 Occurrences starting 01/20/2023 until 02/19/2024 Erythrocyte mean corpuscular volume determination [facility] Erythrocyte mean corpuscular volume determination [facility] Erythrocyte mean corpuscular volume determination [facility] Erythrocyte mean corpuscular volume determination [facility] Erythrocyte mean corpuscular volume determination [facility] Glucose [Mass/volume ] in Serum or Plasma [facility] Glucose [Mass/volume ] in Serum or Plasma [facility] Glucose [Mass/volume ] in Serum or Plasma [facility] Glucose [Mass/volume ] in Serum or Plasma [facility] Glucose [Mass/volume ] in Serum or Plasma [facility] Glucose [Mass/volume ] in Serum or Plasma [facility] Glucose [Mass/volume ] in Serum or Plasma [facility] Glucose [Mass/volume ] in Serum or Plasma [facility] Hematocrit [Volume Fraction] of Blood [facility] Hematocrit [Volume Fraction] of Blood [facility] Hematocrit [Volume Fraction] of Blood [facility] Hematocrit [Volume Fraction] of Blood [facility] Hematocrit [Volume Fraction] of Blood [facility] Hematocrit [Volume Fraction] of Blood [facility] Hematocrit [Volume Fraction] of Blood [facility] Hematocrit [Volume Fraction] of Blood [facility] Hematocrit [Volume Fraction] of Blood [facility] Hemoglobin [Mass/vol ume] in Blood [facility] Hemoglobin [Mass/vol ume] in Blood [facility] Hemoglobin [Mass/vol ume] in Blood [facility] Hemoglobin [Mass/vol ume] in Blood [facility] Hemoglobin [Mass/vol ume] in Blood [facility] Hemoglobin [Mass/vol ume] in Blood [facility] Hemoglobin [Mass/vol ume] in Blood [facility] Hemoglobin [Mass/vol ume] in Blood [facility] Hemoglobin [Mass/vol ume] in Blood [facility] Iron [Mass/mass] in Unspecified specimen [facility] Iron saturation [Mas s Fraction] in Serum or Plasma [facility] Leukocytes [#/volume ] in Blood [facility] Leukocytes [#/volume ] in Blood [facility] Leukocytes [#/volume ] in Blood [facility] Leukocytes [#/volume ] in Blood [facility] Leukocytes [#/volume ] in Blood [facility] Leukocytes [#/volume ] in Blood [facility] Leukocytes [#/volume ] in Blood [facility] Leukocytes [#/volume ] in Blood [facility] Leukocytes [#/volume ] in Blood [facility] Magnesium measurement [facility] Mean corpuscular hemoglobin concentration determination [facility] Mean corpuscular hemoglobin concentration determination [facility] Mean corpuscular hemoglobin concentration determination [facility] Mean corpuscular hemoglobin concentration determination [facility] Mean corpuscular hemoglobin concentration determination [facility] Mean corpuscular hemoglobin concentration determination [facility] Mean corpuscular hemoglobin concentration determination [facility] Mean corpuscular hemoglobin concentration determination [facility] Mean corpuscular hemoglobin concentration determination [facility] Mean corpuscular hemoglobin determination [facility] Mean corpuscular hemoglobin determination [facility] Mean corpuscular hemoglobin determination [facility] Mean corpuscular hemoglobin determination [facility] Mean corpuscular hemoglobin determination [facility] Mean corpuscular hemoglobin determination [facility] Mean corpuscular hemoglobin determination [facility] Mean corpuscular hemoglobin determination [facility] Mean corpuscular hemoglobin determination [facility] Measurement of renal function [facility] Measurement of renal function [facility] Measurement of renal function [facility] Measurement of renal function [facility] Measurement of renal function [facility] Measurement of renal function [facility] Measurement of renal function [facility] Measurement of renal function [facility] Measurement of respiratory function [facility] Measurement of respiratory function [facility] Natriuretic peptide. B prohormone N-Terminal [Mass/volume] in Serum or Plasma [facility] Neutrophil count [facility] Neutrophil count [facility] Neutrophil count [facility] Neutrophil count [facility] Neutrophil count [facility] Neutrophil count [facility] Neutrophil percent differential count [facility] Neutrophil percent differential count [facility] Neutrophil percent differential count [facility] Neutrophil percent differential count [facility] Neutrophil percent differential count [facility] Neutrophil percent differential count [facility] Patient Education [facility] Work Phone: Patient referral [facility] Work Phone: Platelets [#/volume] in Blood [facility] Platelets [#/volume] in Blood [facility] Platelets [#/volume] in Blood [facility] Platelets [#/volume] in Blood [facility] Platelets [#/volume] in Blood [facility] Platelets [#/volume] in Blood [facility] Platelets [#/volume] in Blood [facility] Platelets [#/volume] in Blood [facility] Platelets [#/volume] in Blood [facility] Polysomnography [facility] Potassium [Moles/vol ume] in Serum or Plasma [facility] Potassium [Moles/vol ume] in Serum or Plasma [facility] Potassium [Moles/vol ume] in Serum or Plasma [facility] Potassium [Moles/vol ume] in Serum or Plasma [facility] Potassium measurement [facility] Potassium measurement [facility] Potassium measurement [facility] Potassium measurement [facility] Radiologic exam ches t 2 views XR CHEST 2V FRONTAL/LAT Radiology Routine Seronegative rheumatoid arthritis (HCC) Chronic foot pain, unspecified laterality Screening for respiratory condition 01/16/2023 3:48 PM EST [facility] Work Phone: Red blood cell count [facility] Red blood cell count [facility] Red blood cell count [facility] Red blood cell count [facility] Red blood cell count [facility] Red blood cell count [facility] Red blood cell count [facility] Red blood cell count [facility] Red blood cell count [facility] Red cell distributio n width determination [facility] Red cell distributio n width determination [facility] Red cell distributio n width determination [facility] Red cell distributio n width determination [facility] Red cell distributio n width determination [facility] Red cell distributio n width determination [facility] Red cell distributio n width determination [facility] Red cell distributio n width determination [facility] Red cell distributio n width determination [facility] Serum chloride measurement [facility] Serum chloride measurement [facility] Serum chloride measurement [facility] Serum chloride measurement [facility] Sodium [Moles/volume ] in Serum or Plasma [facility] Sodium [Moles/volume ] in Serum or Plasma [facility] Sodium [Moles/volume ] in Serum or Plasma [facility] Sodium [Moles/volume ] in Serum or Plasma [facility] Sodium measurement [facility] Sodium measurement [facility] Sodium measurement [facility] Sodium measurement [facility] Total iron binding capacity measurement [facility] Troponin T.cardiac [Mass/volume] in Serum or Plasma by High sensitivity method [facility] Urea nitrogen [Mass/volume] in Serum or Plasma [facility] Urea nitrogen [Mass/volume] in Serum or Plasma [facility] Urea nitrogen [Mass/volume] in Serum or Plasma [facility] Urea nitrogen [Mass/volume] in Serum or Plasma [facility] Urea nitrogen [Mass/volume] in Serum or Plasma [facility] Urea nitrogen [Mass/volume] in Serum or Plasma [facility] Urea nitrogen [Mass/volume] in Serum or Plasma [facility] Urea nitrogen [Mass/volume] in Serum or Plasma [facility] Urine culture [facility] [Mass/vol ume] in Serum or Plasma --trough [facility] Walking distance 6 minutes [facility] Immunizations Immunization Date Immunization Notes Care Provider Delmis beltrán 01-22-2015 influenza, seasonal, injectable Xr Mob Work Phone: [facility] 01-22-2015 influenza virus vacc ine, unspecified formulation Gerson Mandujano APRN.[employer] Work Phone: [facility] Payers Date Payer Category Payer Unknown [id number] 2023 Self-pay [id number] 2022 Medicaid [id number] 2022 Medicare (Managed Care) 1.2. [id number] 2022 Medicaid [id number] [facility] 2022 Medicaid [id number] 2022 Medicare [id number] 2015 Unknown [id number] Medicare MEDICARE PART A B [id number] Unknown [id number] Unknown [id number] Unknown [id number] Unknown [id number] [id number] Unknown [id number] 2.16.840.1.870898.3.579.2.462 Unknown [id number] 2.16.840.1.500175.3.579.2.462 Unknown [id number] 2.16.840.1.452562.3.579.2.462 Unknown [id number] 2.16.840.1.059566.3.579.2.462 Unknown [id number] 2.16.840.1.696522.3.579.2.462 Unknown [id number] 2.16.840.1.682706.3.579.2.462 Unknown [id number] 2.16.840.1.666419.3.579.2.462 Unknown [id number] 2.16.840.1.830867.3.579.2.462 Unknown [id number] 2.16.840.1.356545.3.579.2.462 Unknown [id number] 2.16.840.1.043215.3.579.2.462 Unknown [id number] 2.16.840.1.108360.3.579.2.462 Unknown [id number] 2.16.840.1.894234.3.579.2.462 Unknown [id number] 2.16.840.1.405081.3.579.2.462 Unknown [id number] 2.16.840.1.699099.3.579.2.462 Unknown [id number] 2.16.840.1.989781.3.579.2.462 Unknown [id number] 2.16.840.1.902090.3.579.2.462 Unknown [id number] 2.16.840.1.404044.3.579.2.462 Unknown [id number] 2.16.840.1.226742.3.579.2.462 Unknown [id number] 2.840.1.827356.3.579.2.462 Unknown [id number] 2.840.1.971370.3.579.2.462 Unknown [id number] 2.16.840.1.335179.3.579.2.462 Unknown [id number] 2.16.840.1.143084.3.579.2.462 Unknown [id number] 2.16840.1.200774.3.579.2.462 Unknown [id number] 2.840.1.429472.3.579.2.462 Unknown [id number] 2.16840.1.866682.3.579.2.462 Unknown [id number] 2.840.1.490052.3.579.2.462 Unknown [id number] 2.16840.1.806648.3.579.2.462 Social History Date Type Detail Facility Start: 05-08-2021 End: 11-12-2022 Tobacco smoking status HIIS Unknown if ever smoked [facility] Start: 1960 Sex Assigned At Female W [facility] Start: 04-10-2015 End: 08-01-2024 Tobacco smoking status NHIS Never smoked tobacco [facility] Start: 04-10-2015 Tobacco use and exposure Smoke less tobacco non-user [facility] Start: 10-24-2021 End: 04-07-2024 Alcohol intake Current non-drinker of alcohol (finding) [facility] Start: 11-18-2022 End: 11-21-2022 History of Social function [facility] Start: 11-18-2022 End: 11-21-2022 Patient Health Questionnaire 2 item (PHQ-2) [Reported] [facility] Adult Depression Screening Assessment 2 [facility] Start: 1960 Sex Assigned At Not on file [facility] Start: 06-11-2024 End: 06-29-2024 Sex Female (finding) [facility] NEGATED: Highlighted row [facility] Goals Date Patient Goal Desired Activity /State Functional Status Date Assessment Result Facility 08-04-2024 Functional status Ambulates [facility] Work Phone: 08-02-2024 Functional status Ambulates [facility] Work Phone: 06-29-2024 Functional status Ambulates;Bathroom Priv ilege [facility] Work Phone: 06-12-2024 Functional status Ambulates;Elías r;Bathroom Privilege [facility] Work Phone: 06-11-2024 Functional status Ambulates [facility] Work Phone: 06-04-2022 Functional status Bedrest [facility] Work Phone: 06-03-2022 Functional status Up ad ruth [facility] Work Phone: Mental Status Date Assessment Result Facility 08-04-2024 Cognitive function Voice/Name [facility] Work Phone: 08-02-2024 Cognitive function Voice/Name [facility] Work Phone: 06-29-2024 Cognitive function Voice/Name [facility] Work Phone: 06-27-2024 Cognitive function Voice/Name [facility] Work Phone: 06-12-2024 Cognitive function Voice/Name [facility] Work Phone: 06-11-2024 Cognitive function Voice/Name [facility] Work Phone: 11-13-2022 Cognitive function Voice/Name [facility] Work Phone: 06-04-2022 Cognitive function Voice/Name [facility] Work Phone: 06-03-2022 Cognitive function Voice/Name [facility] Work Phone: 06-01-2022 Cognitive function Level Of Cons ciousness Awake;Alert;Appropriate;Follow s Commands [facility] Work Phone: Clinical Notes 06-01-2022 to 08-17-2024 Telephone Encounter - Aimee Garcia RN - 08/17/2024 5:27 AM EDTTelephone Encounter - Aimee Garcia RN - 08/17/2024 5:27 AM EDTTelephone Encounter - Amisha Valadez Ma - 08/16/2024 4:03 PM EDT Note Date & Type Note Facility 08-17-2024 Telephone encounter Note Form atting of this note is different from the original. Images from the original note were not included. Most recent Rheumatology visit: 05/26/2024 (with Chris Cody) Last Bone Density on file: None on file Rheumatology Care Team: None on file Recent Office Visits - This Specialty 05/26/2024 Seronegative rheumatoid arthritis (HCC) Rheumatology Chris Cody MD 04/07/2024 Seronegative rheumatoid arthritis (HCC) Rheumatology Chris Cody MD 01/01/2024 Seronegative rheumatoid arthritis (HCC) Rheumatology Chris Cody MD Upcoming Rheumatology Appointments - Next 365 Days No appointments to display CBC: Latest Ref Rng & Units 04/08/2024 05/26/2024 CBC WBC 3.70 - 11.00 k/uL 13.43 9.42 Hemoglobin 11.5 - 15.5 g/dL 14.4 15.1 Hematocrit 36.0 - 46.0 % 44.0 46.1 Platelet Count 150 - 400 k/uL 209 230 Abs Neut (ANC) 1.45 - 7.50 k/uL 11.34 7.75 Abs Lymph 1.00 - 4.00 k/uL 0.97 0.70 Vitamin D: Latest Ref Rng & Units 05/26/2024 Vitamin D Vitamin D 25 Hydroxy 31.0 - 80.0 ng/mL 59.7 LFT: Latest Ref Rng & Units 04/08/2024 05/26/2024 CMP Sodium 136 - 144 mmol/L 144 143 Potassium 3.7 - 5.1 mmol/L 3.9 4.6 Chloride 98 - 107 mmol/L 104 103 CO2 22 - 30 mmol/L 28 27 Glucose 74 - 99 mg/dL 136 129 BUN 7 - 21 mg/dL 31 30 Creatinine 0.58 - 0.96 mg/dL 1.11 1.17 Calcium 8.5 - 10.2 mg/dL 9.9 10.5 AST 13 - 35 U/L 31 42 ALT 7 - 38 U/L 45 60 Alkaline Phosphatase 34 - 123 U/L 88 93 Hepatic Function: Creatinine: Latest Ref Rng & Units 04/08/2024 05/26/2024 Creatinine Creatinine 0.58 - 0.96 mg/dL 1.11 1.17 ESR/CRP: Latest Ref Rng & Units 04/08/2024 05/26/2024 ESR, WSR WSR 0 - 20 mm/hr 2 5 Latest Ref Rng & Units 04/08/2024 05/26/2024 CRP CRP <0.9 mg/dL 0.3 0.5 Uric Acid: Latest Ref Rng & Units 12/30/2023 05/26/2024 Uric Acid Uric Acid 2.5 - 6.6 mg/dL 3.3 3.3 Open Standing (Multiple Instance) Lab Orders None Open Future (Single Instance) Lab Orders None Aimee Garcia RN [facility] 08-17-2024 Miscellaneous Notes Formattin g of this note is different from the original. Images from the original note were not included. Most recent Rheumatology visit: 05/26/2024 (with Chris Cody) Last Bone Density on file: None on file Rheumatology Care Team: None on file Recent Office Visits - This Specialty 05/26/2024 Seronegative rheumatoid arthritis (HCC) Rheumatology Chris Cody MD 04/07/2024 Seronegative rheumatoid arthritis (HCC) Rheumatology Chris Cody MD 01/01/2024 Seronegative rheumatoid arthritis (HCC) Rheumatology Chris Cody MD Upcoming Rheumatology Appointments - Next 365 Days No appointments to display CBC: Latest Ref Rng & Units 04/08/2024 05/26/2024 CBC WBC 3.70 - 11.00 k/uL 13.43 9.42 Hemoglobin 11.5 - 15.5 g/dL 14.4 15.1 Hematocrit 36.0 - 46.0 % 44.0 46.1 Platelet Count 150 - 400 k/uL 209 230 Abs Neut (ANC) 1.45 - 7.50 k/uL 11.34 7.75 Abs Lymph 1.00 - 4.00 k/uL 0.97 0.70 Vitamin D: Latest Ref Rng & Units 05/26/2024 Vitamin D Vitamin D 25 Hydroxy 31.0 - 80.0 ng/mL 59.7 LFT: Latest Ref Rng & Units 04/08/2024 05/26/2024 CMP Sodium 136 - 144 mmol/L 144 143 Potassium 3.7 - 5.1 mmol/L 3.9 4.6 Chloride 98 - 107 mmol/L 104 103 CO2 22 - 30 mmol/L 28 27 Glucose 74 - 99 mg/dL 136 129 BUN 7 - 21 mg/dL 31 30 Creatinine 0.58 - 0.96 mg/dL 1.11 1.17 Calcium 8.5 - 10.2 mg/dL 9.9 10.5 AST 13 - 35 U/L 31 42 ALT 7 - 38 U/L 45 60 Alkaline Phosphatase 34 - 123 U/L 88 93 Hepatic Function: Creatinine: Latest Ref Rng & Units 04/08/2024 05/26/2024 Creatinine Creatinine 0.58 - 0.96 mg/dL 1.11 1.17 ESR/CRP: Latest Ref Rng & Units 04/08/2024 05/26/2024 ESR, WSR WSR 0 - 20 mm/hr 2 5 Latest Ref Rng & Units 04/08/2024 05/26/2024 CRP CRP <0.9 mg/dL 0.3 0.5 Uric Acid: Latest Ref Rng & Units 12/30/2023 05/26/2024 Uric Acid Uric Acid 2.5 - 6.6 mg/dL 3.3 3.3 Open Standing (Multiple Instance) Lab Orders None Open Future (Single Instance) Lab Orders Loree Garcia, RN Pharmacy called in. They only filled script for 30 days documented in this encounter [facility] 08-16-2024 Telephone encounter Note Form atting of this note might be different from the original. Pharmacy called in. They only filled script for 30 days [facility] 08-04-2024 Discharge summary Note Date/Time August 04, 2024 11:36 am [facility] Medical Records Department [address] [place] [address] Instructions for Home/Discharge Instructions 08/04/24 1135 MR#: [id number] Acct: [id number] Name: SAVANNAH AGUIRRE Rep #:[id number] : 1960 63 From: Rosalina Gatica MD PCP: Dr. Shahab Adams, DO Status:ADM IN Discharge Instructions Diet Discharge Diet: Low fat / Low cholesterol DC O2, CPAP, BIPAP needs Home O2 Discharge instructions: Yes Type of respiratory needs?: Oxygen Oxygen frequency: Continuous Continuous oxygen liters per minute: 3 Dressing / Incision Call your doctor if you observe: Fever of 101 or Higher, Shortness of breath, Dizziness, Swelling in the ankles and Chest pain Follow Up Care Test Results: Test results from this visit will be discussed in further detail at your follow-up appointment, if applicable. Discharge Plan Admission Admit Date/Time: 08/01/24 15:04 Primary Reason for Your Visit: recurrent pneumonia Attending Provider: Rosalina Gatica Primary Care Provider: Shahab Adams Consulting Providers: Bill Camacho; Aj Andino; Dyllan Tellez; Asif Medina; Jose M Gonzalez; Ned Colbert; Sincere Reed; Hector Rodriguez; Chio Gamble; Rogelio Lim; Amador Barrios; Angel Henderson; Jailyn Casas; Martín Dale; Lucia Bardales; Stanford Marie; Eliezer Colon; Arnold Leblanc; Dena Worthy; Carlos Manuel Barr; Mustapha Baumann; Demetrius Saldana; Raheem Sethi; Mohamud Forde Instructions Patient Instructions: ED Pneumonia (Adult) Discharge Orders/Prescriptions Prescriptions: Continued gabapentin 400 mg capsule 400 mg PO TID hydrocodone-acetaminophen 5-325 mg Tablet 1 tab PO Q6H PRN (Reason: Pain) omeprazole 40 mg Capsule,Delayed Release(Dr/Ec) 40 mg PO DAILY triamterene-hydrochlorothiazid 37.5-25 mg Capsule 1 cap PO DAILY levothyroxine [Synthroid] 88 mcg Tablet 88 mcg PO DAILY potassium chloride 20 mEq tablet,ER particles/crystals 20 meq PO QPM Rx Instructions: 20 mEq orally 2 tabs am and 1 tab pm; buprenorphine [Butrans] 20 mcg/hour Patch Weekly 1 patch TRANSDERMAL FERNANDEZ cholecalciferol (vitamin D3) 125 mcg (5,000 unit) Capsule 125 mcg PO DAILY PRIMAL DEFENSE 410 mg PO 1XD Rx Instructions: DIETARY SUPPLEMENT metoprolol succinate 50 mg Tablet Extended Release 24 Hr 50 mg PO QHS allopurinol 300 mg tablet 300 mg PO DAILY prednisone 10 mg tablet 10 mg PO DAILY ferrous gluconate 324 mg (38 mg iron) tablet 324 mg PO DAILY Humira(CF) Pen 40 mg/0.4 mL pen injector kit 40 mg subcut FERNANDEZ Eliquis 5 mg tablet 5 mg PO BID magnesium oxide 400 mg (241.3 mg magnesium) tablet 400 mg PO QPM potassium chloride [Klor-Con M20] 20 mEq tablet,ER particles/crystals 40 meq PO DAILY albuterol sulfate 90 mcg/actuation aerosol powdr breath activated 2 inh inhalation Q4H PRN (Reason: shortness of breath or wheezing) nystatin 100,000 unit/mL suspension 2 ml PO BID Qty: 100 0RF Rx Instructions: Swish and gargle with 2 ml then spit out 2 times a day albuterol sulfate 2.5 mg /3 mL (0.083 %) solution for nebulization 2.5 mg inhalation Q4H PRN Qty: 25 0RF Rx Instructions: Use q4 hours and PRN for wheezing Referrals / Follow Up: Jose M Gonzalez DO [Med Staff - Active Staff] - Within 2 Weeks Shahab Adams DO [Primary Care Provider] - Within 1 Week Disposition Disposition (needs filled in before D/C Order can be placed): Home, Self Care 08/04/24 1136<Electronically signed by Rosalina Gatica MD>Rosalina Gatica MD CC: Dr. Dyllan Tellez MD; Dr. Aj Andino MD; Dr. Asif Medina MD; Dr. Ned Colbert MD; Dr. Jose M Gonzalez DO; Dr. Sincere Reed MD; Dr. Bill Camacho DO; Dr. Hector Rodriguez MD; Dr. Rogelio Lim MD; Dr. Amador Barrios MD; Dr. Angel Henderson MD; Dr. Jailyn Casas MD; Dr. Martín Dale MD; Dr. Lucia Bardales MD; Dr. Shahab Adams DO; Dr. Eliezer Colon MD; Dr. Stanford Marie MD;Dr. Arnold Leblanc MD; Dr. Mustapha Baumann MD; Dr. Carlos Manuel Barr MD; Dr. Dean Worthy DO; Dr. Demetrius Saldana DO; Dr. Raheem Sethi MD; Dr. Mohamud Forde MD; Dr. Chio Gamble MD ~ [facility] Work Phone: 1(486) 140-380405-29-2025 [facility]05-28-2025 Progress note Author Rosalina [facility] Note Date/Time August 03, 2024 4:07p [facility] Medical Records Department [address] [place] [address] Progress Note 08/03/24 1602 MR#: [id number] Acct: [id number] Name: SAVANNAH AGUIRRE Rep #:[id number] : 1960 63 From: Rosalina Gatica MD PCP: Dr. Shahab Adams, DO Status:ADM IN Location: [place] [address] Subjective Subjective Patient seen and examined. She had no active complaints. She is on her baseline 3 L of oxygen. She had an uneventful night. Previous symptoms otherwise negative. She has remained hemodynamically stable. Objective Data Objective Data Vital Signs: Vital Signs Temp Pulse Resp BP Pulse Ox O2 Del Method O2 Flow Rate 98.6 F 76 17 121/60 H 96 Nasal Cannula 3 08/03/24 14:23 08/03/24 14:23 08/03/24 14:23 08/03/24 14:23 08/03/24 14:23 08/03/24 14:23 08/03/24 14:23 Oxygen Flow Rate (L/min) 3 Oxygen Delivery Method Nasal Cannula Weight: 167 lb 5.294 oz Body Mass Index (BMI) 29.6 Intake & Output: Intake and Output for Last 24 Hours 08/01/24 08/02/24 08/03/24 23:59 23:59 23:59 Intake Total 1845 / 2145 625 / 975 900 / 900 Balance 1845 / 2145 625 / 975 900 / 900 Lab / Micro Data 08/03/24 09:27 08/03/24 09:27 Labs: Laboratory Results - last 24 hr 08/03/24 06:40: Vancomycin Trough 16.9 H 08/03/24 09:27: WBC 11.4 H, RBC 3.92 L, Hgb 11.9 L, Hct 36.5 L, MCV 93.1, MCH 30.4, MCHC 32.6, RDW Std Deviation 49.4 H, RDW Coeff of Hiro 14.5, Plt Count 252,MPV 9.9, Immature Gran % (Auto) 0.400, Neut % (Auto) 72.3 H, Lymph % (Auto) 13.0L, [place] % (Auto) 9.3, Eos % (Auto) 4.9, Baso % (Auto) 0.1, Absolute Neuts (auto)8.2 H, Absolute Lymphs (auto) 1.48, Nucleated RBC % 0, Sodium 138, Potassium 3.4, Chloride 103, Carbon Dioxide 23.7, Anion Gap 12, BUN 16, Creatinine 1.11, Estim Creat Clear Calc 49.30 L, Est GFR (MDRD) Non-Af 55 L, BUN/Creatinine Ratio 14.0, Glucose 109 H, Calcium 9.3 Micro: Microbiology 08/01/24 16:19 Urine, Clean Catch Urine Culture - Final Coag Negative Staph 08/01/24 16:19 Urine, Clean Catch Legionella Antigen - Final 08/01/24 16:19 Urine, Clean Catch Streptococcus pneumoniae Antigen (M - Final 08/01/24 13:15 Mucosa - Nose SARS-CoV-2, Influenza & RSV (PCR) - Final Rhythm Strip Rhythm Strip: Sinus Tach Rate: 102 Physical Exam Const alert, oriented x3, no apparent distress and well nourished General Appearance: cooperative and well developed HEENT normocephalic, head/scalp atraumatic and moist oral mucous membranes Eyes PERRL and EOMs intact bilaterally Neck no lymphadenopathy, supple and no JVD Lymph Lymphatic: no lymphadenopathy noted and no lymphedema noted Resp Resp Narrative: mildly diminished breath sounds bibasally, no wheezes or crackles. on 3L of oxygen which is her baseline Cardio regular rate, regular rhythm, S1 normal heart sound, S2 normal heart sound and no murmurs GI normal to inspection, nondistended, normoactive bowel sounds, soft to palpation,non-tender and non-distended Extremity normal capillary refill, no clubbing, cyanosis or edema and no calf tenderness General Extremity: no tenderness to palpation of joints or extremities Skin General Skin Exam: no breakdown Neuro CN's II-XII intact bilaterally, no focal motor deficits and no sensory deficits noted Motor Exam: strength 5/5 throughout and general weakness Psych thought process normal, cooperative and affect normal Appearance: appropriate Assessment & Plan Assessment/Plan (1) Pneumonia: PLAN: Plan #Sepsis due to recurent pneumonia * Has been treated several times in recent months and recent pneumonia. His shortness of breath however persisted so she came back to the hospital. * Currently on IV vancomycin and Zosyn. She is on 3 L of oxygen which is stable at her baseline at home. * breathing treatment with bronchodilators. * Titrate oxygen to maintain sats >90% * pulmonology consulted in light of her recurrent pneumonia. Pulmonology reviewed and recommended discontinuing her oral antibiotics as there is no clear evidence of pneumonia. * #History of pulmonary embolism: on eliquis #History of gout: on allopurinol #Rheumatoid arthritis: humira held. On prednisone. DVT prophylaxis; already on eliquis. Disposition: * Follow-up with pulmonology on outpatient basis. * Patient was to stay 1 more night today as her daughter is not available to pick her up today. For DC tomorrow. Charges/Coding Visit Charges Inpatient E&M: 78135 Subs Hosp L2 08/03/24 1604 <Electronically signed by Rosalina Gatica MD> Rosalina Gatica MD Cosigner Signature (if applicable): CC: ~ Signed [facility] Work Phone: 1(213) 921-305105-28-2025 Consult note Author Jose M Gonzalez [facility] Note Date/Time August 03, 2024 1:49p m [facility] Medical Records Department [address] [place] [address] Consultation - Healthcare Management Consultant 08/03/24 1239 MR#: [id number] Acct: [id number] Name: SAVANNAH AGUIRRE Rep #:[id number] : 1960 63 From: Jose M Gonzalez DO PCP: Dr. Shahab Adams, DO Status:ADM IN Location: [place] [address] Assessment & Plan Assessment/Plan (1) Pneumonia: (2) SOB (shortness of breath): PLAN: Plan RECOMMENDATIONS: 1. Supplemental oxygen to maintain saturations at or above 90%. 2. Given low suspicion for recurrent pneumonia, I am okay with discontinuing antimicrobials. 3. Continue Eliquis per home regimen. 4. Complete outpatient pulmonary workup that was ordered 2 weeks ago. (Pulmonary function studies, 6-minute walk test and PSG) 5. Follow-up in the pulmonary medicine clinic as scheduled. IMPRESSIONS: 1. Pneumonia The patient was initially readmitted to the hospital under the pretenses that she had recurrent pneumonia. However, on my review of the patient's chest imaging, there does not appear to be any evidence of a focal infiltrate or consolidation to suggest recurrent pneumonia. She just recently completed a 10-day course of antimicrobials to address the MRSA from her sputum culture, isolated on July 20. She was already evaluated in the pulmonary medicine clinic in mid July for shortness of breath and hypoxemia, with outpatient pulmonary workup already ordered, including pulmonary function studies, 6-minute walk testand diagnostic polysomnogram. I recommend that the patient complete her outpatient testing as scheduled. I have no additional new recommendations at this time. The patient should follow-up in the pulmonary medicine clinic after completing her testing. 2. Chronic hypoxemic respiratory failure The patient has been utilizing 2 to 3 L/min of supplemental oxygen since her recent discharge from the hospital in June secondary to bilateral pulmonary emboli. 3. History of pulmonary embolism Continue Eliquis as ordered. 4. Suspected sleep apnea Complete outpatient polysomnogram for workup, as ordered. 5. History of rheumatoid arthritis/gout Complicates care, management, recovery and prognosis. Continue supportive care as noted above. This note was generated with [employer] software. It may contain incorrectwords, spelling, and punctuation that were not noted in checking the note beforesigning. HPI Consult Data Date of Consult: 08/03/24 HPI Narrative Reason for Consultation: Pneumonia HPI Narrative: The patient is a 63-year-old female, with a history as outlined below, who presented to the emergency department on August 01 with increasing shortness of breath and fever. I just saw the patient in the pulmonary medicine office 2 weeks ago after she was referred to me for the evaluation of a pulmonary embolism, shortness of breath and hypoxemia. The patient has been maintained onEliquis, given the unprovoked nature of her pulmonary embolism. She was utilizing supplemental oxygen at 2 to 3 L/min. The patient was ordered to undergo a 6-minute walk test, pulmonary function studies and a sleep apnea workup of her concerns for JEANA. The patient is yet to complete her pulmonary workup that was previously ordered. It should be noted that the patient had a positive sputum culture on July 20 for MRSA, which was apparently treated by her PCP with a 10-day course of antimicrobials. While the patient did feel quite well on the antibiotics, she indicated that she began to feel fatigued and chilled once again after completing the antibiotics. On presentation to the emergency department, the patient was documented to be afebrile and hemodynamically stable. She was saturating 100% on 3 L/min via nasal cannula. White blood cell count was initially noted to be 16,000. However, the patient has elevated white blood cell counts in June and July 2024,given that she is on chronic prednisone therapy. Lactate was elevated at 2.7. Chest imaging demonstrated no focal consolidation or infiltrate. Strep and urine Legionella antigens were negative. Blood cultures have not demonstrated any growth to date. COVID, influenza and RSV PCR's were negative. The patient was subsequently placed on antimicrobials and admitted to the hospital for further management. [facility] Medical History MRSA (methicillin resistant staph aureus) culture positive Anticoagulant long-term use History of hypothyroidism Elevated blood-pressure reading without diagnosis of hypertension SIRS (systemic inflammatory response syndrome) Sinus tachycardia Acute on chronic hypoxic respiratory failure Acute bronchospasm Pulmonary embolus Left lower lobe pneumonia Post-menopausal Depression Anxiety Thyroid disease Anemia Gastric reflux Non-smoker Leg cramps History of pain when walking Hypothyroid CKD (chronic kidney disease) Hypertension Infection of spinal cord stimulator Rheumatoid arthritis Chronic pain Arthritis Fibromyalgia Migraines Home Medications ?Medication ?Instructions ?Recorded ?Last Taken ?Type buprenorphine 20 mcg/hour weekly 1 patch transdermal S U PAIN 01/13/21 07/31/24 History transdermal patch (Butrans) hydrocodone-acetaminophen 5-325mg 1 tab PO Q6H PRN Jess n 01/13/21 07/08/24 History 5mg-325mg levothyroxine 88 mcg tablet 88 mcg PO DAILY 01/13/21 0 08/01/24 History (Synthroid) omeprazole 40 mg capsule,delayed 40 mg PO DAILY 08/01/24 History release potassium chloride 20 mEq 20 meq PO QPM SUPPLEMENT 09/2607/31/24 History tablet,extended release(part/cryst) triamterene 37.5 1 cap PO DAILY Check with pr imary 01/13/21 08/01/24 History mg-hydrochlorothiazide 25 mg doctor capsule gabapentin 400 mg capsule 400 mg PO TID PAIN 05/08/21 08/01/24 History cholecalciferol (vitamin D3) 125 125 mcg PO DAILY SUPP LEMENT 06/01/22 08/01/24 History mcg (5,000 unit) capsule PRIMAL DEFENSE 410 mg PO 1XD probiotic 08/2908/01/24 History metoprolol succinate 50 mg 50 mg PO QHS 11/13/2207/31 History tablet,extended release 24 hr allopurinol 300 mg tablet 300 mg PO DAILY 06/10/24 History adalimumab 40 mg/0.4 mL 40 mg subcut FERNANDEZ 06/27/24 History subcutaneous pen kit (Humira(CF) Pen) ferrous gluconate 324 mg (38 mg 324 mg PO DAILY 08/01/24 History iron) tablet prednisone 10 mg tablet 10 mg PO DAILY 06/27/2407/08 History albuterol sulfate 2.5 mg/3 mL 2.5 mg (3 mL) inhalation Q4H PRN 07/08/24 Unknown Rx (0.083 %) solution for nebulization #25 vials albuterol sulfate 90 mcg/actuation 2 inh inhalation Q4 H PRN shortness 07/08/24 Unknown History breath activated powder inhaler of breath or wheezing nystatin 100,000 unit/mL oral 2 ml PO BID #100 mL 05/03 Unknown Rx suspension apixaban 5 mg tablet (Eliquis) 5 mg PO BID 08/01/24 History magnesium oxide 400 mg (241.3 mg 400 mg PO QPM 5 07/31/24 History magnesium) tablet potassium chloride 20 mEq 40 meq PO DAILY 08/01/24 History tablet,extended release(part/cryst) (Klor-Con M) Allergy/AdvReac Type Severity Reaction Status Date / Time oxycodone Allergy Rash Verified 08/01/24 12:45 adhesive tape AdvReac Rash Verified 08/01/24 12:45 Family History Mother Hypertension Colon polyps Father Lymphoma Surgical History Hx of hysterectomy History of carpal tunnel release Hx of thyroidectomy Hx of cholecystectomy Hx of tonsillectomy Social History household members: none Smoking Status: Never smoker alcohol intake: never substance use type: does not use ROS ROS Narrative 10 systems were reviewed with pertinent positives as noted in the HPI above. Physical Exam Const alert, oriented x3 and no apparent distress Constitutional Narrative: Resting comfortably in bed. General Appearance: cooperative HEENT normocephalic, head/scalp atraumatic and moist oral mucous membranes Eyes PERRL, EOMs intact bilaterally and conjunctivae normal Neck supple General: trachea midline Chest inspection of chest normal Resp normal respiratory effort Auscultation: Negative for rales, rhonchi or wheezes Cardio regular rate and regular rhythm GI normal to inspection, nondistended, normoactive bowel sounds Extremity no clubbing, cyanosis or edema Skin no rashes or lesions noted Neuro CN's II-XII intact bilaterally, moves all extremities and no focal motor deficits Psych cooperative and affect normal Lab / Micro Data 08/03/24 09:27 08/03/24 09:27 Labs: Laboratory Results - last 24 hr 08/03/24 06:40: Vancomycin Trough 16.9 H 08/03/24 09:27: WBC 11.4 H, RBC 3.92 L, Hgb 11.9 L, Hct 36.5 L, MCV 93.1, MCH 30.4, MCHC 32.6, RDW Std Deviation 49.4 H, RDW Coeff of Hiro 14.5, Plt Count 252,MPV 9.9, Immature Gran % (Auto) 0.400, Neut % (Auto) 72.3 H, Lymph % (Auto) 13.0L, [place] % (Auto) 9.3, Eos % (Auto) 4.9, Baso % (Auto) 0.1, Absolute Neuts (auto)8.2 H, Absolute Lymphs (auto) 1.48, Nucleated RBC % 0, Sodium 138, Potassium 3.4, Chloride 103, Carbon Dioxide 23.7, Anion Gap 12, BUN 16, Creatinine 1.11, Estim Creat Clear Calc 49.30 L, Est GFR (MDRD) Non-Af 55 L, BUN/Creatinine Ratio 14.0, Glucose 109 H, Calcium 9.3 Micro: Microbiology 08/01/24 16:19 Urine, Clean Catch Urine Culture - Final Coag Negative Staph 08/01/24 16:19 Urine, Clean Catch Legionella Antigen - Final 08/01/24 16:19 Urine, Clean Catch Streptococcus pneumoniae Antigen (M - Final Rhythm Strip Rhythm Strip: Sinus Tach Rate: 102 Charges/Coding Visit Charges Inpatient E&M: 51832 Init Hosp L3 08/03/24 1349 <Electronically signed by Jose M Gonzalez DO> Cosigner Signature (if applicable): CC: Dr. Shahab Adams, ~ Signed [facility] Work Phone: 1(244) 510-431905-28-2025 Consult note Author Farida Chase [facility] Note Date/Time August 03, 2024 8:47a m [facility] Medical Records Department [address] [place] [address] Pharmacokinetic/Renal -Consult 08/03/24 0845 MR#: [id number] Acct: [id number] Name: SAVANNAH AGUIRRE Rep #:[id number] : 1960 63 From: Farida Hogue PCP: Dr. Shahab Adams, Status:ADM IN Location: [place] [address] Consult Antibiotic Management Pharmacy has been consulted to manage selected antibiotic: Vancomycin Type of Intervention Type of Consult: Follow-up Suspected Infection Suspected Infection: Pneumonia Prior Doses of Antibiotics Prior Doses of Antibiotics Received/Current Regimen: 08/01/24 @ 1848 Vancomycin 2000mg loading dose 08/02/24 @ 0626 Vancomycin 500mg 08/02/24 @ 1939 Vancomycin 500mg Labs Labs: Sodium 135 mmol/L (133-145) 08/02/24 06:37 Potassium 4.1 mmol/L (3.3-5.1) 08/02/24 06:37 Chloride 101 mmol/L (98-108) 08/02/24 06:37 Carbon Dioxide 22.3 mmol/L (21.0-32.0) 08/02/24 06:37 Anion Gap 12 (5-15) 08/02/24 06:37 BUN 20 mg/dL (4-19) H 08/02/24 06:37 Creatinine 1.18 mg/dL (0.70-1.20) 08/02/24 06:37 Est GFR (MDRD) Non-Af 51 (>60) L 08/02/24 06:37 BUN/Creatinine Ratio 17.1 RATIO (10-20) 08/02/24 06:37 Glucose 177 mg/dL (70-99) H 08/02/24 06:37 Vancomycin Trough 16.9 ug/mL (5.0-15.0) H 08/03/24 06:40 Microbiology Microbiology: Microbiology 08/01/24 16:19 Urine, Clean Catch Legionella Antigen - Final 08/01/24 16:19 Urine, Clean Catch Streptococcus pneumoniae Antigen (M - Final 08/01/24 13:15 Mucosa - Nose SARS-CoV-2, Influenza & RSV (PCR) - Final Dosing Weight Weight used for dosin kg Goal Trough Goal Trough: 15-20 mcg/mL Pharmacy Plan for Drug Dosing Pharmacy Plan for Drug Dosing: Continue Vancomycin 500mg every 12 hours Pharmacy Service will continue to monitor and adjust dosing as required. Follow-Up Labs Follow-Up Labs: Trough: Vancomycin Date/Time Labs Ordered Labs to be done on [date and time ordered]: 08/04/24 @ 1830 08/03/24 0847 <Electronically signed by Farida Chase> Date _ Farida Chase Cosigner Signature (if applicable): Date CC: ~ Signed [facility] Work Phone: 1(997) 758-610105-27-2025 Progress note Author [facility] Note Date/Time August 02, 2024 4:13p [facility] Medical Records Department [address] [place] [address] Progress Note 08/02/24 1408 MR#: [id number] Acct: [id number] Name: SAVANNAH AGUIRRE Rep #:[id number] : 1960 63 From: Rosalina Gatica MD PCP: Dr. Shahab Adams, DO Status:ADM IN Location: [address] Subjective Subjective Patient seen and examined. She was admitted with a complaint of fever and cough and is being managed for recurrent pneumonia. She had no active complaints this morning. She denied any fever, though she does cough occasionally. She denies any chest pain, palpitations, dizziness, nausea, vomiting or any other symptoms.Review of systems is otherwise negative. On 3L of oxygen by nasal canula. Objective Data Objective Data Vital Signs: Vital Signs Temp Pulse Resp BP Pulse Ox O2 Del Method O2 Flow Rate 98.4 F 86 14 106/53 L 98 Nasal Cannula 3 08/02/24 09:11 08/02/24 11:23 08/02/24 11:23 08/02/24 09:11 08/02/24 09:11 08/02/24 09:11 08/02/24 09:11 Oxygen Flow Rate (L/min) 3 Oxygen Delivery Method Nasal Cannula Weight: 167 lb 5.294 oz Body Mass Index (BMI) 29.6 Intake & Output: Intake and Output for Last 24 Hours 07/31/24 08/01/24 08/02/24 23:59 23:59 23:59 Intake Total 1845 / 2145 575 / 575 Balance 1845 / 2145 575 / 575 Lab / Micro Data 08/02/24 06:37 08/02/24 06:37 Labs: Laboratory Results - last 24 hr 08/01/24 16:19: Urine Color Yellow, Urine Clarity Clear, Urine pH 6.0, Ur Specific [place] 1.010, Urine Protein 15 H, Urine Glucose (UA) Normal, Urine Ketones 5 H, Urine Occult Blood 10 H, Urine Nitrite Negative, Urine Bilirubin Negative, Urine Urobilinogen Normal, Ur Leukocyte Esterase 25 H, Urine RBC 0-5 SEEN, Urine WBC 0-5 SEEN, Ur Squamous Epith Cells 0-5 SEEN, Urine Bacteria 0 SEEN, Hyaline Casts 0-5 SEEN, Urine Mucus 0 SEEN 08/01/24 17:20: Lactic Acid 2.4 H* 08/02/24 06:37: WBC 7.8, RBC 3.97 L, Hgb 11.9 L, Hct 36.5 L, MCV 91.9, MCH 30.0,MCHC 32.6, RDW Std Deviation 47.0 H, RDW Coeff of Hiro 14.1, Plt Count 232, MPV 9.7, Immature Gran % (Auto) 0.600, Neut % (Auto) 92.7 H, Lymph % (Auto) 3.8 L, [place] % (Auto) 2.8, Eos % (Auto) 0.0, Baso % (Auto) 0.1, Absolute Neuts (auto) 7.2, Absolute Lymphs (auto) 0.30 L, Nucleated RBC % 0, Sodium 135, Potassium 4.1, Chloride 101, Carbon Dioxide 22.3, Anion Gap 12, BUN 20 H, Creatinine 1.18,Estim Creat Clear Calc 46.37 L, Est GFR (MDRD) Non-Af 51 L, BUN/Creatinine Ratio17.1, Glucose 177 H, Calcium 8.8 Micro: Microbiology 08/01/24 16:19 Urine, Clean Catch Legionella Antigen - Final 08/01/24 16:19 Urine, Clean Catch Streptococcus pneumoniae Antigen (M - Final 08/01/24 13:15 Mucosa - Nose SARS-CoV-2, Influenza & RSV (PCR) - Final Radiography Diagnostic Testing: Radiology Impression Chest X-Ray 08/01/24 13:55 IMPRESSION: Stable bibasilar interstitial prominence, compatible with mild chronic interstitial abnormality, trace edema or pneumonitis. Reading Location: [facility] Rhythm Strip Rhythm Strip: Sinus Tach Rate: 102 Physical Exam Const alert, oriented x3, no apparent distress and well nourished General Appearance: cooperative and well developed HEENT normocephalic, head/scalp atraumatic, moist oral mucous membranes, oropharynx normal and gingiva normal Neck no lymphadenopathy, supple and no JVD Lymph Lymphatic: no lymphadenopathy noted and no lymphedema noted Resp Resp Narrative: mildly diminished breath sounds bibasally, no wheezes or crackles. on 3L of oxygen. Cardio regular rate, regular rhythm, S1 normal heart sound, S2 normal heart sound and no murmurs GI normal to inspection, nondistended, normoactive bowel sounds, soft to palpation,non-tender and non-distended Extremity normal capillary refill, no clubbing, cyanosis or edema and no calf tenderness General Extremity: no tenderness to palpation of joints or extremities Skin General Skin Exam: no breakdown Neuro CN's II-XII intact bilaterally, no focal motor deficits and no sensory deficits noted Motor Exam: strength 5/5 throughout and general weakness Psych thought process normal, cooperative and affect normal Appearance: appropriate Assessment & Plan Assessment/Plan (1) Pneumonia: PLAN: Plan #Sepsis due to recurent pneumonia * Has been treated several times in recent months and recent pneumonia. His shortness of breath however persisted so she came back to the hospital. * Currently on IV vancomycin and Zosyn. She is on 3 L of oxygen which is stable at her baseline at home. * breathing treatment with bronchodilators. * Titrate oxygen to maintain sats >90% * pulmonology consulted in light of her recurrent pneumonia * #History of pulmonary embolism: on eliquis #History of gout: on allopurinol #Rheumatoid arthritis: humira held. On prednisone. DVT prophylaxis; already on eliquis. Charges/Coding Visit Charges Inpatient E&M: 07458 Subs Hosp L2 08/02/24 1613 <Electronically signed by Rosalina Gatica MD> Rosalina Gatica MD Cosigner Signature (if applicable): CC: ~ Signed [facility] Work Phone: [phone] 184-186805-27-2025 Consult note Author Bill Pérez [facility] Note Date/Time August 02, 2024 12:58 pm [facility] Medical Records Department [address] [place] [address] Pharmacokinetic/Renal -Consult 08/01/241932 MR#: [id number] Acct: [id number] Name: SAVANNAH AGUIRRE Rep #:[id number] : 1960 63 From: Bill Pérez PCP: Dr. Shahab Adams, DO Status:ADM IN Location: [place] [address] Consult Antibiotic Management Pharmacy has been consulted to manage selected antibiotic: Vancomycin Type of Intervention Type of Consult: New start Suspected Infection Suspected Infection: Pneumonia Labs Labs: Sodium 137 mmol/L (133-145) 08/01/24 12:57 Potassium 4.3 mmol/L (3.3-5.1) 08/01/24 12:57 Chloride 99 mmol/L (98-108) 08/01/24 12:57 Carbon Dioxide 24.0 mmol/L (21.0-32.0) 08/01/24 12:57 Anion Gap 14 (5-15) 08/01/24 12:57 BUN 14 mg/dL (4-19) 08/01/24 12:57 Creatinine 1.33 mg/dL (0.70-1.20) H 08/01/24 12:57 Est GFR (MDRD) Non-Af 44 (>60) L 08/01/24 12:57 BUN/Creatinine Ratio 10.3 RATIO (10-20) 08/01/24 12:57 Glucose 147 mg/dL (70-99) H 08/01/24 12:57 Microbiology Microbiology: Microbiology 08/01/24 16:19 Urine, Clean Catch Legionella Antigen - Final 08/01/24 16:19 Urine, Clean Catch Streptococcus pneumoniae Antigen (M - Final 08/01/24 13:15 Mucosa - Nose SARS-CoV-2, Influenza & RSV (PCR) - Final Dosing Weight Weight used for dosin.9 kg Estimated Creatinine Clearance Estimated Creatinine Clearance: 43 Goal Trough Goal Trough: 15-20 mcg/mL Pharmacy Plan for Drug Dosing Pharmacy Plan for Drug Dosing: Pharmacy Service will continue to monitor and adjust dosing as required. Follow-Up Labs Follow-Up Labs: Trough: Vancomycin Date/Time Labs Ordered Labs to be done on [date and time ordered]: 08/03/24 @0630 08/01/24 193 <Electronically signed by Bill balderrama> Date _ Bill Pérez 08/02/24 1259 <Electronically signed by Bill Camacho DO> Cosigner Signature (if applicable): Date Bill Camacho DO CC: ~ Signed [facility] Work Phone: [phone]) 667-880305-27-2025 Procedure notey [facility] Pulmonary Services/Neurology [address] [place] [address] MR#: [id number] Acct: [id number] Name: SAVANNAH AGUIRRE Rep #:[id number] : 1960 63 From: Jose M Gonzalez DO Referring Dr: Jose M Gonzalez DO Status : REG CLI Location: PSN Date: Sex: F C PSN 6 Minute Walk Test 6 Minute Walk Test 6 Minute Walk Test: 6 Minute Walk Test PSN:6-Minute Walk Test Start: 07/28/24 12:10 Freq: Status: Active Protocol: [id number] Document 07/28/24 11:15 RACHELLE (Rec: 07/28/24 12:16 RACHELLE [id number]) 6 Minute Walk Test Date Performed 07/28/24 Time Performed 11:15 Height 5 ft 2 in Weight: 178 lb Weight in Pounds 178.[address]: Jose M Gonzalez Assistive device None used: Pre-test Oxygen Delivery Room Air Method Pulse Ox (%) 88 Pulse Rate (60-100 67 beats/min) Dyspnea Canelo Scale ( 0 0-10) Exertion Canelo Scale 6 (6-20) 1st minute Oxygen Flow Rate (L/ 3 min) (L/min) Oxygen Delivery Nasal Cannula Method Pulse Ox (%) 90 Pulse Rate (60-100 87 beats/min) 2nd minute Oxygen Flow Rate (L/ 3 min) (L/min) Oxygen Delivery Nasal Cannula Method Pulse Ox (%) 91 Pulse Rate (60-100 88 beats/min) Number of Rests 1 Taken 3rd minute Oxygen Flow Rate (L/ 3 min) (L/min) Oxygen Delivery Nasal Cannula Method Pulse Ox (%) 90 Pulse Rate (60-100 84 beats/min) 4th minute Oxygen Flow Rate (L/ 3 min) (L/min) Oxygen Delivery Nasal Cannula Method Pulse Ox (%) 91 Pulse Rate (60-100 87 beats/min) Number of Rests 1 Taken 5th minute Oxygen Flow Rate (L/ 3 min) (L/min) Oxygen Delivery Nasal Cannula Method Pulse Ox (%) 93 Pulse Rate (60-100 87 beats/min) 6th minute Oxygen Flow Rate (L/ 3 min) (L/min) Oxygen Delivery Nasal Cannula Method Pulse Ox (%) 89 Pulse Rate (60-100 93 beats/min) Dyspnea Canelo Scale ( 3 0-10) Exertion Canelo Scale 14 (6-20) Post-test Oxygen Flow Rate (L/ 3 min) (L/min) Oxygen Delivery Nasal Cannula Method Pulse Ox (%) 94 Pulse Rate (60-100 70 beats/min) Full Laps Walked 8 Partial Lap, Number 16 of Tiles Walked Total Distance 488 Walked (ft) 07/28/24 12:13 Cardiopulmonary Services by Marina Mcqueen Patient wears 3 lpm at home. Continuous at home and pulse dose when out of the house. Patient dropped to 88% after being off her oxygen for 10 minutes. Reapplied her home O2 setting of 3 lpm pulse dose, SpO2 recovered to 93% before walking. Patient used 3 lpm pulse dose the entire test. Patient took 2 breaks that were about 30-45 seconds long. Reported mostly leg weakness that made it hard to keep walking. Patient gave good effort and stated that this was more than she has been able to walk at home these past couple months. Initialized on 07/28/24 12:13 - END OF NOTE Interpretation Interpretation: The patient ambulated 488 feet over the course of 6 minutes beginning on room air without assistivedevices. Pretesting oxygen saturation was noted to be 88%on room air. 3 L/min of pulsed dose supplemental oxygen was subsequently applied and the patient was able to complete the remainder of the test while maintaining appropriate saturations. Recommendations Recommendations: 3 L/min of pulsed dose supplemental oxygen should be utilized at all times. 08/02/24 1234 O> Date _ Jose M Gonzalez DO CC: ~ Date Dictated: 08/02/24 1233 Date Transcribed: 08/02/24 1233 Couture Alterations Dressmaker: Dr. Jose M Gonzalez DO Signed [facility]05-26-2025 History and physical note Author Bill Camacho [facility] Note Date/Time August 01, 2024 3:22p [facility] Medical Records Department [address] [place] [address] H&P Exam - Hospitalist 08/01/24 1512 MR#: [id number] Acct: [id number] Name: SAVANNAH AGUIRRE Rep #:[id number] : 1960 63 From: Bill Camacho DO PCP: Dr. Shahab Adams, DO Status:ADM IN Location: [facility] [id number] HPI - General General Date of Admission: 08/01/24 Date of Service: 08/01/24 Chief Complaint: Shortness of breath HPI Narrative SAVANNAH AGUIRRE, is a 63 F who presents with shortness of breath. This is a 3-year-old female with cellulitis and battling pneumonia as well as a recent PE. Was recently treated for MRSA pneumonia this month and was on Bactrim and was not getting better for a few days would start getting worse over the past most recent days. So she presented to the emergency room where is noted that she wasseptic. Chest x-ray showed chronic changes but there is concern about pneumoniagiven her history and she received ceftriaxone and azithromycin. The hospital service was contacted for admission. Patient did not receive 30 cc/kg of IV fluid because of concern for volume overload. Please refer to the ED physician's note for further description. [facility] Medical History MRSA (methicillin resistant staph aureus) culture positive Anticoagulant long-term use History of hypothyroidism Elevated blood-pressure reading without diagnosis of hypertension SIRS (systemic inflammatory response syndrome) Sinus tachycardia Acute on chronic hypoxic respiratory failure Acute bronchospasm Pulmonary embolus Left lower lobe pneumonia Post-menopausal Depression Anxiety Thyroid disease Anemia Gastric reflux Non-smoker Leg cramps History of pain when walking Hypothyroid CKD (chronic kidney disease) Hypertension Infection of spinal cord stimulator Rheumatoid arthritis Chronic pain Arthritis Fibromyalgia Migraines Home Medications ?Medication ?Instructions ?Recorded ?Last Taken ?Type buprenorphine 20 mcg/hour weekly 1 patch transdermal S U PAIN 01/13/21 07/31/24 History transdermal patch (Butrans) hydrocodone-acetaminophen 5-325mg 1 tab PO Q6H PRN Jess n 01/13/21 07/08/24 History 5mg-325mg levothyroxine 88 mcg tablet 88 mcg PO DAILY 01/13/21 0 08/01/24 History (Synthroid) omeprazole 40 mg capsule,delayed 40 mg PO DAILY 08/01/24 History release potassium chloride 20 mEq 20 meq PO QPM SUPPLEMENT 09/2607/31/24 History tablet,extended release(part/cryst) triamterene 37.5 1 cap PO DAILY Check with pr imary 01/13/21 08/01/24 History mg-hydrochlorothiazide 25 mg doctor capsule gabapentin 400 mg capsule 400 mg PO TID PAIN 05/08/21 08/01/24 History cholecalciferol (vitamin D3) 125 125 mcg PO DAILY SUPP LEMENT 06/01/22 08/01/24 History mcg (5,000 unit) capsule PRIMAL DEFENSE 410 mg PO 1XD probiotic 08/2908/01/24 History metoprolol succinate 50 mg 50 mg PO QHS 11/13/2207/31 History tablet,extended release 24 hr allopurinol 300 mg tablet 300 mg PO DAILY 06/10/24 History adalimumab 40 mg/0.4 mL 40 mg subcut FERNANDEZ 06/27/24 History subcutaneous pen kit (Humira(CF) Pen) ferrous gluconate 324 mg (38 mg 324 mg PO DAILY 08/01/24 History iron) tablet prednisone 10 mg tablet 10 mg PO DAILY 06/27/2407/08 History albuterol sulfate 2.5 mg/3 mL 2.5 mg (3 mL) inhalation Q4H PRN 07/08/24 Unknown Rx (0.083 %) solution for nebulization #25 vials albuterol sulfate 90 mcg/actuation 2 inh inhalation Q4 H PRN shortness 07/08/24 Unknown History breath activated powder inhaler of breath or wheezing nystatin 100,000 unit/mL oral 2 ml PO BID #100 mL 05/03 Unknown Rx suspension apixaban 5 mg tablet (Eliquis) 5 mg PO BID 08/01/24 History magnesium oxide 400 mg (241.3 mg 400 mg PO QPM 5 07/31/24 History magnesium) tablet potassium chloride 20 mEq 40 meq PO DAILY 08/01/24 History tablet,extended release(part/cryst) (Klor-Con M) Allergy/AdvReac Type Severity Reaction Status Date / Time oxycodone Allergy Rash Verified 08/01/24 12:45 adhesive tape AdvReac Rash Verified 08/01/24 12:45 Family History Mother Hypertension Colon polyps Father Lymphoma Surgical History Hx of hysterectomy History of carpal tunnel release Hx of thyroidectomy Hx of cholecystectomy Hx of tonsillectomy Social History household members: none Smoking Status: Never smoker alcohol intake: never substance use type: does not use ROS ROS Narrative Denies any sore throat.. Fever or chills. Malaise. All review of systems werenegative except as mentioned above in the history of present illness and the other review of systems. Vital Signs Vital Signs Vital Signs: 08/01/24 12:44 08/01/24 12:44 08/01/24 12:47 Temperature 37.2 C 37.2 C Temperature Source Temporal Oral Pulse Rate 105 H 88 Respiratory Rate 30 H 24 H Respiratory Effort Respiratory Pattern Blood Pressure 139/77 H 133/76 H Blood Pressure Mean 97 95 Pulse Ox 89 91 100 Oxygen Delivery Method Nasal Cannula Nasal Cannula Nasal Cannula Oxygen Flow Rate (L/min) 3 3 3 08/01/24 12:53 08/01/24 13:20 08/01/24 13:47 Temperature 37.2 C Temperature Source Oral Pulse Rate 89 116 H Respiratory Rate 16 20 H Respiratory Effort Short of Breath Respiratory Pattern Normal Blood Pressure 111/61 Blood Pressure Mean 77 Pulse Ox 96 Oxygen Delivery Method Nasal Cannula Nasal Cannula Oxygen Flow Rate (L/min) 3 3 08/01/24 14:44 Temperature 37.3 C Temperature Source Pulse Rate 113 H Respiratory Rate 20 H Respiratory Effort Respiratory Pattern Blood Pressure 138/76 H Blood Pressure Mean 96 Pulse Ox 96 Oxygen Delivery Method Oxygen Flow Rate (L/min) Weight Weight: 83.5 kg Body Mass Index (BMI) 32.5 Physical Exam Narrative - Physical Exam General: Alert, Oriented x3, Cooperative. Up in bed on oxygen. No respiratory distress. No conversational dyspnea. HEENT: Atraumatic, PERRLA, EOMI, Normocephalic Oral: Moist Mucosa, No Gingival or Mucosal Lesions/ Ulcerations Neck: Supple, No JVD, Negative Carotid Bruits Lungs: Clear to auscultation, Normal air movement Cardiovascular: Regular rate, Normal S1, Normal S2, No murmurs Abdomen: Bowel Sounds Present, Soft, Non Tender, Non-Distended, No Hepato-splenomegaly Extremities: No clubbing, No cyanosis, No edema, Capillary Refill Less than 3 Seconds Skin: No rashes, No breakdown Musculoskeletal: No Tenderness to Palpation of Joints or Extremities Neurological: Moves extremities spontaneously Psych/Mental Status: Normal Affect, Appropriate Results Lab / Micro Data Attestation: I reviewed the patient's lab results. 08/01/24 12:57 08/01/24 12:57 Labs: Laboratory Results - last 24 hr 08/01/24 12:57: WBC 16.0 H, RBC 4.67, Hgb 14.0, Hct 43.2, MCV 92.5, MCH 30.0, MCHC 32.4, RDW Std Deviation 47.8 H, RDW Coeff of Hiro 14.3, Plt Count 290, MPV 10.0, Immature Gran % (Auto) 0.600, Neut % (Auto) 82.6 H, Lymph % (Auto) 2.8 L, [place] % (Auto) 5.2, Eos % (Auto) 8.2 H, Baso % (Auto) 0.6, Absolute Neuts (auto) 13.2 H, Absolute Lymphs (auto) 0.44 L, Nucleated RBC % 0, Sodium 137, Potassium 4.3, Chloride 99, Carbon Dioxide 24.0, Anion Gap 14, BUN 14, Creatinine 1.33 H, Estim Creat Clear Calc 43.17 L, Est GFR (MDRD) Non-Af 44 L, BUN/Creatinine Ratio10.3, Glucose 147 H, Calcium 9.7, Total Bilirubin 0.56, AST 46 H, ALT 37 H, Alkaline Phosphatase 123 H, Total Protein 6.5, Albumin 3.6, Globulin 2.9, Albumin/Globulin Ratio 1.2 08/01/24 13:13: Lactic Acid 2.7 H* Micro: Microbiology 08/01/24 13:15 Mucosa - Nose SARS-CoV-2, Influenza & RSV (PCR) - Final Rhythm Strip Rhythm Strip: Sinus Tach Rate: 102 Imaging Radiology Impression Chest X-Ray 08/01/24 13:55 IMPRESSION: Stable bibasilar interstitial prominence, compatible with mild chronic interstitial abnormality, trace edema or pneumonitis. Reading Location: [facility] Assessment & Plan Assessment/Plan (1) Pneumonia: PLAN: Suspect gram-negative and/or MRSA given her recent hospitalizations and recent MRSA pneumonia Pulmonary toilet. Antibiotics with pip-tazo and vancomycin for now. Check sputum culture, strep and Legionella antigens, COVID/RSV/influenza (2) Sepsis: PLAN: Secondary to pneumonia. Present on admission SIRS criteria: 3 out of 4 with white cells of 16,000, respiration rate 24, heartrate of 116 Patient hemodynamically stable though however. There was concern about fluid overload and patient had an echocardiogram back in June but did show a trivial pericardial effusion so I concur with the ED physician that 30 cc/kg of IV fluidmay lead to other problems such as heart failure. No need for pressors. PLAN: Plan Elevated creatinine: Not meeting the criteria of CE but her creatinine is 1.33 with a baseline 0.9. Will hold off on her combo diuretic pill (also her potassium replacement since those are being held) and I will give her a liter ofIV fluids. Chronic conditions * PE: Continue with apixaban * Gout: Continue allopurinol * Hypothyroidism: Continue levothyroxine * Rheumatoid arthritis: Holding off on her Humira for now. Continue with her daily prednisone. If though if patient does become hypotensive then she would require eventually stress dose steroids. VTE prophylaxis: Not indicated as patient is already anticoagulated. CODE STATUS: Addressed with the patient. Patient wishes to be full code. Disposition: Anticipate stay greater than 2 midnights Charges/Coding Visit Charges Inpatient E&M: 77698 Init Hosp 08/01/24 1520 <Electronically signed by Bill Camacho DO> Cosigner Signature (if applicable): CC: Dr. Bill Camacho DO; Dr. Shahab Adams DO~ Signed ADDENDUM by Dr. Bill Camacho DO on 08/01/24 at 1522 Addendum On exam patient had thrush on her palate as well as posterior pharynx. Patient had been complaining of trouble swallowing which I think is attributable to her thrush. I would expect that with adequate treatment of her thrush that the her difficulty swallowing should improve. I do not feel that there is an indicationfor speech therapy at this time. Patient denies any vaginal discharge. 08/01/24 1522<Electronically signed by Bill Camacho DO> Cosigner Signature (if applicable): cc: Dr. Bill Camacho DO; Dr. Shahab Adams DO ~* Signed [facility] Work Phone: 1([phone]) 714-129605-26-2025 Discharge summary Author Carlos Jiménez [facility] Note Date/Time August 01, 2024 2:39p m [facility] Medical Records Department [address] [place] [address] Emergency Department Summary 08/01/24 MR#: [id number] Acct: [id number] Name: SAVANNAH AGUIRRE Rep #:[id number] : 1960 63 From: Carlos Jiménez MD PCP: Dr. Shahab Adams, DO Status:REG ER Location: ED HPI History of Present Illness Chief Complaint: Shortness of Breath Detail of Chief Complaint: Increase shortness of breath with low-grade fever andproductive cough Informant: patient Onset/Context/Timing Onset: Days Context: sudden Timing: Continuous and Waxes and wanes Quality: Positive for Dyspnea on exertion and Wheezing; Negative for Orthopnea or PND Current Severity: Mild Maximum Severity: Moderate Worsened by: Exertion and Coughing Relieved by: Nothing Associated Symptoms cough, fever, chills, sweats and green sputum; Negative for rhinorrhea, post nasal drip, ear pain, sore throat or subjective Chest Pain: Positive for None Narrative Narrative: Patient is a 63-year-old woman. She was diagnosed with pulmonary embolus approximately 2 months ago. She is present on [place]. She has had pneumonia twice since. She completed a course of Bactrim since she had MRSA. She presents because of temperature and then 99-100 range with productive cough of green-colored sputum. She also complained of dyspnea, dyspnea on exertion and wheezing. She has been on oxygen since diagnosed with pulmonary embolus approximately 2 months ago. She denies headache, visual, ocular auditory symptoms. She denies chest pain, orthopnea or PND. She denies pain with breathing. She is presently on prednisone 10 mg due to rheumatoid arthritis. She was on a burst recently. She denies abdominal pain, nausea, vomit or diarrhea. Has black maroon-colored stool. She does have history of iron deficiency anemia. She denies any urologic symptoms. PE Risk Factors: Negative for Cancer, OCP + Smoking + > 35, Prior DVT or PE, Recent surgery or Recent travel Prior similar symptoms: Yes Recent Illness/Hospitalization: Yes [facility] Medical History MRSA (methicillin resistant staph aureus) culture positive Anticoagulant long-term use History of hypothyroidism Elevated blood-pressure reading without diagnosis of hypertension SIRS (systemic inflammatory response syndrome) Sinus tachycardia Acute on chronic hypoxic respiratory failure Acute bronchospasm Pulmonary embolus Left lower lobe pneumonia Post-menopausal Depression Anxiety Thyroid disease Anemia Gastric reflux Non-smoker Leg cramps History of pain when walking Hypothyroid CKD (chronic kidney disease) Hypertension Infection of spinal cord stimulator Rheumatoid arthritis Chronic pain Arthritis Fibromyalgia Migraines Home Medications ?Medication ?Instructions ?Recorded ?Last Taken ?Type buprenorphine 20 mcg/hour weekly 1 patch transdermal Q WEEK PAIN 01/13/21 07/02/24 History transdermal patch (Butrans) hydrocodone-acetaminophen 5-325mg 1 tab PO Q6H PRN Jess n 01/13/21 07/08/24 History 5mg-325mg levothyroxine 88 mcg tablet 88 mcg PO DAILY 01/13/21 0 07/08/24 History (Synthroid) omeprazole 40 mg capsule,delayed 40 mg PO DAILY 07/08/24 History release potassium chloride 20 mEq 20 meq PO .COMPLEX SUPPLEMEN T 01/13/21 07/08/24 History tablet,extended release(part/cryst) triamterene 37.5 1 cap PO DAILY Check with pr imary 01/13/21 07/08/24 History mg-hydrochlorothiazide 25 mg doctor capsule gabapentin 400 mg capsule 400 mg PO TID PAIN 05/08/21 07/08/24 History cholecalciferol (vitamin D3) 125 125 mcg PO DAILY SUPP LEMENT 06/01/22 07/08/24 History mcg (5,000 unit) capsule magnesium 250 mg tablet 400 mg PO DINNER SUPPLEMENT 10/22/22 07/07/24 History PRIMAL DEFENCE 410 mg PO 1XD probiotic 08/2907/08/24 History metoprolol succinate 50 mg 50 mg PO QHS 11/13/2207/07 History tablet,extended release 24 hr allopurinol 300 mg tablet 300 mg PO DAILY 06/10/24 History adalimumab 40 mg/0.4 mL 40 mg subcut QWEEK 06/27/24 07/02/24 History subcutaneous pen kit (Humira(CF) Pen) apixaban 5 mg (74 tabs) tablets in 5 mg PO Q12H 07/08/24 History a dose pack (Eliquis DVT-PE Treat 30D Start) ferrous gluconate 324 mg (38 mg 324 mg PO DAILY 07/08/24 History iron) tablet prednisone 1 mg tablet 2 mg PO DAILY 06/27/2407/08 History prednisone 10 mg tablet 10 mg PO DAILY 06/27/24 0505/03 History albuterol sulfate 2.5 mg/3 mL 2.5 mg (3 mL) inhalation Q4H PRN 07/08/24 Unknown Rx (0.083 %) solution for nebulization #25 vials albuterol sulfate 90 mcg/actuation 2 inh inhalation Q4 H PRN shortness 07/08/24 Unknown History breath activated powder inhaler of breath or wheezing nystatin 100,000 unit/mL oral 2 ml PO BID #100 mL 05/03 Unknown Rx suspension Allergy/AdvReac Type Severity Reaction Status Date / Time oxycodone Allergy Rash Verified 08/01/24 12:45 adhesive tape AdvReac Rash Verified 08/01/24 12:45 Family History Mother Hypertension Colon polyps Father Lymphoma Surgical History Hx of hysterectomy History of carpal tunnel release Hx of thyroidectomy Hx of cholecystectomy Hx of tonsillectomy Social History household members: none Smoking Status: Never smoker alcohol intake: never substance use type: does not use ROS ROS ED Constitutional Constitutional ED: Reports fever(s) and sweats; Denies chills or weight loss Eyes Eyes: Denies blurry vision, change in vision or diplopia ENT ENT ED: Reports sore throat; Denies ear pain or rhinorrhea Cardiovascular Cardiovascular: Denies chest pain, palpitations or racing heartbeat Respiratory/Chest Respiratory/Chest: Reports cough, dyspnea, dyspnea on exertion and sputum Gastrointestinal Gastrointestinal: Denies abdominal pain, diarrhea, nausea or vomiting Genitourinary Genitourinary ED: Denies dysuria, hematuria or urinary frequency Musculoskeletal Musculoskeletal: Reports arthralgias and myalgias Integumentary Denies rash Neurologic Neurologic: Reports paresthesias and weakness; Denies headache(s) Endocrine Endocrinology: Denies cold intolerance or heat intolerance Hematologic/Lymphatic Hematologic/Lymphatic: Denies easy bleeding or easy bruising EXAM Physical Exam Const Vital Signs: 08/01/24 12:44 08/01/24 12:44 08/01/24 12:47 Temperature 99 F 99 F Temperature Source Temporal Oral Pulse Rate 105 H 88 Respiratory Rate 30 H 24 H Respiratory Effort Respiratory Pattern Blood Pressure 139/77 H 133/76 H Blood Pressure Mean 97 95 Pulse Ox 89 91 100 Oxygen Delivery Method Nasal Cannula Nasal Cannula Nasal Cannula Oxygen Flow Rate (L/min) 3 3 3 08/01/24 12:53 08/01/24 13:20 08/01/24 13:47 Temperature 99 F Temperature Source Oral Pulse Rate 89 116 H Respiratory Rate 16 20 H Respiratory Effort Short of Breath Respiratory Pattern Normal Blood Pressure 111/61 Blood Pressure Mean 77 Pulse Ox 96 Oxygen Delivery Method Nasal Cannula Nasal Cannula Oxygen Flow Rate (L/min) 3 3 Positive well nourished and well developed Constitutional Narrative: Patient's vitals are marked for elevated blood pressure, heart rate and respiratory rate. General Appearance ED: well developed HEENT Reports TM's clear and moist mucous membranes atraumatic; Negative for trauma Tympanic Membrane ED: Yes TM's clear Eyes PERRL and EOMs intact bilaterally General Eye ED: Negative for pale conjunctiva or scleral icterus Neck no lymphadenopathy, supple, no meningeal signs and no JVD Neck Narrative: Trachea is midline. There is no stridor. Resp No normal respiratory effort and No clear to auscultation bilaterally Auscultation: wheezes expiratory wheezes Cardio regular rhythm, S1 normal heart sound, S2 normal heart sound and no murmurs Rate: tachycardic GI non-tender, non-distended and no masses Auscultation: normoactive bowel sounds Back/Spine no CVA tenderness Extremity normal to inspection Neuro oriented x3 and CN's II-XII intact bilaterally Yulisa Coma Scale: document GCS findings Spontaneous Obeys Commands Oriented 15 Sensorium / Orientation: alert Speech: speech normal Psych mental status grossly normal Skin no wounds and skin turgor normal Sepsis Attestation Sepsis Alert: Yes Sepsis Attestation: Agree w/Sepsis Date exam was performed: 08/01/24 Time exam was performed: 14:00 Possible Source of Sepsis: Pulmonary Sepsis Organ Dysfunction Criteria Present: Lactic Acid > 2 mmol/L (Patient's lactic acidosis could be due to multiple aerosol treatments, hypoxia in additionto possibility of sepsis which is a possibility. Most likely it is due to hypoxia which is type a lactic acidosis.) Fluid Resuscitation Fluid resuscitation indicated?: Yes (Fluid bolus was not given. Patient is not hypotensive. She is not clinically dehydrated. And with an elevated creatinineneed to be concern for fluid overload.) MDM MDM MDM Narrative Medical decision making narrative: Differential diagnosis would include pneumonia, exacerbation of lung disease, PEfailed appropriate outpatient therapy, doubt cardiac ischemia. Doubt pneumothorax and she has bilateral lung sounds. Workup included CBC, comprehensive metabolic panel to assess for endorgan dysfunction white count anemia. Chest x-ray to evaluate for pneumonia, pneumothorax heart failure whichis doubtful. EKG to evaluate for any ischemic changes. History & Record Review Additional record(s) reviewed:: Prior outpatient record and Prior ED visit Lab Data Attestation: I reviewed the patient's lab results. Lab results narrative: CBC reveals elevated white count of 16,000 with slight shift. There is no bandemia. H&H and platelet count normal. Competence metabolic panel is an elevated creatinine from baseline to 1.33 with an estimated GFR 44. Glucose slightly elevated 147 with a normal CO2 anion gap. Patient has slight elevationof AST and ALT which is not significant. Labs: Laboratory Results - last 24 hr 08/01/24 08/01/24 12:57 13:13 WBC 16.0 H RBC 4.67 Hgb 14.0 Hct 43.2 MCV 92.5 MCH 30.0 MCHC 32.4 RDW Std Deviation 47.8 H RDW Coeff of Hiro 14.3 Plt Count 290 MPV 10.0 Immature Gran % (Auto) 0.600 Neut % (Auto) 82.6 H Lymph % (Auto) 2.8 L [place] % (Auto) 5.2 Eos % (Auto) 8.2 H Baso % (Auto) 0.6 Absolute Neuts (auto) 13.2 H Absolute Lymphs (auto) 0.44 L Nucleated RBC % 0 Sodium 137 Potassium 4.3 Chloride 99 Carbon Dioxide 24.0 Anion Gap 14 BUN 14 Creatinine 1.33 H Estim Creat Clear Calc 43.17 L Est GFR (MDRD) Non-Af 44 L BUN/Creatinine Ratio 10.3 Glucose 147 H Lactic Acid 2.7 H* Calcium 9.7 Total Bilirubin 0.56 AST 46 H ALT 37 H Alkaline Phosphatase 123 H Total Protein 6.5 Albumin 3.6 Globulin 2.9 Albumin/Globulin Ratio 1.2 I was informed by nursing staff that lactate is elevated. I was informed that patient triggered sepsis. After reviewing her images laboratory studies historyand physical agree with sepsis alert. Patient was treated with Rocephin and azithromycin. She recently completed a course of Bactrim for MRSA pneumonia. The x-ray changes are new since July 08, 2024. Since patient does have leukocytosis lactic acidosis with chronic respiratory failure with multilobar interstitial infiltrates we will contact hospitalist for admission. Radiography Chest X-Ray - ED: 2 View and Read by ED Physician (Compared to x-ray obtained July 08 there is increased markings on the left side and potentially right lower lobe. These are patchy in nature.) Diagnostic Testing: Clinical Impression(s) from Imaging Studies Chest X-Ray 08/01/24 13:55 IMPRESSION: Stable bibasilar interstitial prominence, compatible with mild chronic interstitial abnormality, trace edema or pneumonitis. Reading Location: [facility] Rhythm Strip Rhythm Strip: Sinus Tach Rate: 102 EKG Initial EKG: Attestation: I personally reviewed and interpreted this EKG as follows: Interpretation: Sinus Rhythm (Rate is 93. Patient has a sinus mechanism. There is artifact that is making it difficult for the computer to read. OK interval 144 ms. QS duration 80 ms. QT duration 338 ms. [place] normal. My opinion this is a normal EKG) Management Discussion w/another healthcare provider: Hospitalist (Since Case and discussed with Dr. Camacho. He asked if I gave a fluid bolus. In my opinion fluid bolus is not indicated.) Discharge Plan Triage Chief Complaint: Shortness of Breath ED Provider: Carlos Jiménez Dx/Rx/DC Orders Clinical Impression: Multilobar lung infiltrate, Chronic respiratory failure with hypoxia, Sinus tachycardia seen on electronic device monitor, Tachypnea, Acidosis, lactic, Anticoagulant long-term use Prescriptions: No Action gabapentin 400 mg capsule 400 mg PO TID hydrocodone-acetaminophen 5-325 mg Tablet 1 tab PO Q6H PRN (Reason: Pain) omeprazole 40 mg Capsule,Delayed Release(Dr/Ec) 40 mg PO DAILY triamterene-hydrochlorothiazid 37.5-25 mg Capsule 1 cap PO DAILY levothyroxine [Synthroid] 88 mcg Tablet 88 mcg PO DAILY potassium chloride 20 mEq tablet,ER particles/crystals 20 meq PO .COMPLEX Rx Instructions: 20 mEq orally 2 tabs am and 1 tab pm; buprenorphine [Butrans] 20 mcg/hour Patch Weekly 1 patch TRANSDERMAL QWEEK Rx Instructions: PT DOES ON SATURDAYS cholecalciferol (vitamin D3) 125 mcg (5,000 unit) Capsule 125 mcg PO DAILY magnesium 250 mg tablet 400 mg PO DINNER Patient Comments: PT TAKES AT NIGHT PRIMAL DEFENCE 410 mg PO 1XD Rx Instructions: DIETARY SUPPLEMENT metoprolol succinate 50 mg Tablet Extended Release 24 Hr 50 mg PO QHS allopurinol 300 mg tablet 300 mg PO DAILY prednisone 10 mg tablet 10 mg PO DAILY Rx Instructions: with 1mg tab prednisone 1 mg tablet 2 mg PO DAILY Rx Instructions: with 10mg, pcp is tapering dose down ferrous gluconate 324 mg (38 mg iron) tablet 324 mg PO DAILY Humira(CF) Pen 40 mg/0.4 mL pen injector kit 40 mg subcut QWEEK Patient Comments: PT TAKES ON SATURDAYS Eliquis DVT-PE Treat 30D Start 5 mg (74 tabs) tablets,dose pack 5 mg PO Q12H albuterol sulfate 90 mcg/actuation aerosol powdr breath activated 2 inh inhalation Q4H PRN (Reason: shortness of breath or wheezing) nystatin 100,000 unit/mL suspension 2 ml PO BID Qty: 100 0RF Rx Instructions: Swish and gargle with 2 ml then spit out 2 times a day albuterol sulfate 2.5 mg /3 mL (0.083 %) solution for nebulization 2.5 mg inhalation Q4H PRN Qty: 25 0RF Rx Instructions: Use q4 hours and PRN for wheezing Primary Care Provider: Shahab Adams Referrals: Shahab Adams, [Primary Care Provider] - Print Language: Brazilian Disposition Disposition: Acute Care Hospital [facility] What to do if you have Problems For any increased pain, shortness of breath, bleeding, nausea or vomiting, chestpain, or any unexpected problems, contact your Primary Care Provider. Call [facility] ([phone]) or report to the closest Emergency Room. Call 911 if necessary. 08/01/24 7890 <Electronically signed by Carlos Jiménez MD> Cosigner Signature (if applicable): CC: Dr. Shahab Adams DO ~ Signed [facility] Work Phone: [phone] History and physical note [facility] Medical Records Department [address] [place] [address] H&P Exam - Hospitalist 08/01/24 1512 MR#: [id number] Acct: [id number] Name: SAVANNAH AGUIRRE Rep #:[id number] : 1960 63 From: Bill Camacho DO PCP: Dr. Shahab Adams DO Status:ADM IN Location: [place] [id number] HPI - General General Date of Admission: 08/01/24 Date of Service: 08/01/24 Chief Complaint: Shortness of breath HPI Narrative SAVANNAH AGUIRRE, is a 63 F who presents with shortness of breath. This is a 3-year-old female with cellulitis and battling pneumonia as well as a recent PE. Was recently treated for MRSA pneumonia this month and was on Bactrim and was not getting better for a few days would start getting worse over the past most recent days. So she presented to the emergency room where is noted that she wasseptic. Chest x-ray showed chronic changes but there is concern about pneumoniagiven her history and she received ceftriaxone and azithromycin. The hospital service was contacted for admission. Patient did notreceive 30 cc/kg of IV fluid because of concern for volume overload. Please refer to the ED physicia n's note for further description. [facility] Medical History MRSA (methicillin resistant staph aureus) culture positive Anticoagulant long-term use History of hypothyroidism Elevated blood-pressure reading without diagnosis of hypertension SIRS (systemic inflammatory response syndrome) Sinus tachycardia Acute on chronic hypoxic respiratory failure Acute bronchospasm Pulmonary embolus Left lower lobe pneumonia Post-menopausal Depression Anxiety Thyroid disease Anemia Gastric reflux Non-smoker Leg cramps History of pain when walking Hypothyroid CKD (chronic kidney disease) Hypertension Infection of spinal cord stimulator Rheumatoid arthritis Chronic pain Arthritis Fibromyalgia Migraines Home Medications ?Medication ?Instructions ?Recorded ?Last Taken ?Type buprenorphine 20 mcg/hour weekly 1 patch transdermal S U PAIN 01/13/21 07/31/24 History transdermal patch (Butrans) hydrocodone-acetaminophen 5-325mg 1 tab PO Q6H PRN Jess n 01/13/21 07/08/24 History 5mg-325mg levothyroxine 88 mcg tablet 88 mcg PO DAILY 01/13/21 0 08/01/24 History (Synthroid) omeprazole 40 mg capsule,delayed 40 mg PO DAILY 08/01/24 History release potassium chloride 20 mEq 20 meq PO QPM SUPPLEMENT 09/2607/31/24 History tablet,extended release(part/cryst) triamterene 37.5 1 cap PO DAILY Check with pr imary 01/13/21 08/01/24 History mg-hydrochlorothiazide 25 mg doctor capsule gabapentin 400 mg capsule 400 mg PO TID PAIN 05/08/21 08/01/24 History cholecalciferol (vitamin D3) 125 125 mcg PO DAILY SUPP LEMENT 06/01/22 08/01/24 History mcg (5,000 unit) capsule PRIMAL DEFENSE 410 mg PO 1XD probiotic 08/2908/01/24 History metoprolol succinate 50 mg 50 mg PO QHS 11/13/2207/31 History tablet,extended release 24 hr allopurinol 300 mg tablet 300 mg PO DAILY 06/10/24 History adalimumab 40 mg/0.4 mL 40 mg subcut FERNANDEZ 06/27/24 History subcutaneous pen kit (Humira(CF) Pen) ferrous gluconate 324 mg (38 mg 324 mg PO DAILY 08/01/24 History iron) tablet prednisone 10 mg tablet 10 mg PO DAILY 06/27/24 05/08/31 History albuterol sulfate 2.5 mg/3 mL 2.5 mg (3 mL) inhalation Q4H PRN 07/08/24 Unknown Rx (0.083 %) solution for nebulization #25 vials albuterol sulfate 90 mcg/actuation 2 inh inhalation Q4 H PRN shortness 07/08/24 Unknown History breath activated powder inhaler of breath or wheezing nystatin 100,000 unit/mL oral 2 ml PO BID #100 mL 05/03 Unknown Rx suspension apixaban 5 mg tablet (Eliquis) 5 mg PO BID 08/01/24 History magnesium oxide 400 mg (241.3 mg 400 mg PO QPM 5 07/31/24 History magnesium) tablet potassium chloride 20 mEq 40 meq PO DAILY 08/01/24 History tablet,extended release(part/cryst) (Klor-Con M) Allergy/AdvReac Type Severity Reaction Status Date / Time oxycodone Allergy Rash Verified 08/01/24 12:45 adhesive tape AdvReac Rash Verified 08/01/24 12:45 Family History Mother Hypertension Colon polyps Father Lymphoma Surgical History Hx of hysterectomy History of carpal tunnel release Hx of thyroidectomy Hx of cholecystectomy Hx of tonsillectomy Social History household members: none Smoking Status: Never smoker alcohol intake: never substance use type: does not use ROS ROS Narrative Denies any sore throat.. Fever or chills. Malaise. All review of systems werenegative except as mentioned above in the history of present illness and the other review of systems. Vital Signs Vital Signs Vital Signs: 08/01/24 12:44 08/01/24 12:44 08/01/24 12:47 Temperature 37.2 C 37.2 C Temperature Source Temporal Oral Pulse Rate 105 H 88 Respiratory Rate 30 H 24 H Respiratory Effort Respiratory Pattern Blood Pressure 139/77 H 133/76 H Blood Pressure Mean 97 95 Pulse Ox 89 91 100 Oxygen Delivery Method Nasal Cannula Nasal Cannula Nasal Cannula Oxygen Flow Rate (L/min) 3 3 3 08/01/24 12:53 08/01/24 13:20 08/01/24 13:47 Temperature 37.2 C Temperature Source Oral Pulse Rate 89 116 H Respiratory Rate 16 20 H Respiratory Effort Short of Breath Respiratory Pattern Normal Blood Pressure 111/61 Blood Pressure Mean 77 Pulse Ox 96 Oxygen Delivery Method Nasal Cannula Nasal Cannula Oxygen Flow Rate (L/min) 3 3 08/01/24 14:44 Temperature 37.3 C Temperature Source Pulse Rate 113 H Respiratory Rate 20 H Respiratory Effort Respiratory Pattern Blood Pressure 138/76 H Blood Pressure Mean 96 Pulse Ox 96 Oxygen Delivery Method Oxygen Flow Rate (L/min) Weight Weight: 83.5 kg Body Mass Index (BMI) 32.5 Physical Exam Narrative - Physical Exam General: Alert, Oriented x3, Cooperative. Up in bed on oxygen. No respiratory distress. No conversational dyspnea. HEENT: Atraumatic, PERRLA, EOMI, Normocephalic Oral: Moist Mucosa, No Gingival or Mucosal Lesions/ Ulcerations Neck: Supple, No JVD, Negative Carotid Bruits Lungs: Clear to auscultation, Normal air movement Cardiovascular: Regular rate, Normal S1, Normal S2, No murmurs Abdomen: Bowel Sounds Present, Soft, Non Tender, Non-Distended, No Hepato-splenomegaly Extremities: No clubbing, No cyanosis, No edema, Capillary Refill Less than 3 Seconds Skin: No rashes, No breakdown Musculoskeletal: No Tenderness to Palpation of Joints or Extremities Neurological: Moves extremities spontaneously Psych/Mental Status: Normal Affect, Appropriate Results Lab / Micro Data Attestation: I reviewed the patient's lab results. 08/01/24 12:57 08/01/24 12:57 Labs: Laboratory Results - last 24 hr 08/01/24 12:57: WBC 16.0 H, RBC 4.67, Hgb 14.0, Hct 43.2, MCV 92.5, MCH 30.0, MCHC 32.4, RDW Std Deviation 47.8 H, RDW Coeff of Hiro 14.3, Plt Count 290, MPV 10.0, Immature Gran % (Auto) 0.600, Neut %(Auto) 82.6 H, Lymph % (Auto) 2.8 L, [place] % (Auto) 5.2, Eos % (Auto) 8.2 H, Baso % (Auto) 0.6, Absolute Neuts (auto) 13.2 H, Absolute Lymphs (auto) 0.44 L, Nucleated RBC % 0, Sodium 137, Potassium 4.3, Chloride 99, Carbon Dioxide 24.0, Anion Gap 14, BUN 14, Creatinine 1.33 H, Estim Creat Clear Calc43.17 L, Est GFR (MDRD) Non-Af 44 L, BUN/Creatinine Ratio10.3, Glucose 147 H, Calcium 9.7, Total Bilirubin 0.56, AST 46 H, ALT 37 H, Alkaline Phosphatase 123 H, Total Protein 6.5, Albumin 3.6, Globulin 2.9, Albumin/Globulin Ratio 1.2 08/01/24 13:13: Lactic Acid 2.7 H* Micro: Microbiology 08/01/24 13:15 Mucosa - Nose SARS-CoV-2, Influenza & RSV (PCR) - Final Rhythm Strip Rhythm Strip: Sinus Tach Rate: 102 Imaging Radiology Impression Chest X-Ray 08/01/24 13:55 IMPRESSION: Stable bibasilar interstitial prominence, compatible with mild chronic interstitial abnormality, trace edema or pneumonitis. Reading Location: [facility] Assessment & Plan Assessment/Plan (1) Pneumonia: PLAN: Suspect gram-negative and/or MRSA given her recent hospitalizations and recent MRSA pneumonia Pulmonary toilet. Antibiotics with pip-tazo and vancomycin for now. Check sputum culture, strep and Legionella antigens, COVID/RSV/influenza (2) Sepsis: PLAN: Secondary to pneumonia. Present on admission SIRS criteria: 3 out of 4 with white cells of 16,000, respiration rate 24, heartrate of 116 Patient hemodynamically stable though however. There was concern about fluid overload and patient had an echocardiogram back in June but did show a trivial pericardial effusion so I concur with the ED physician that 30 cc/kg of IV fluidmay lead to other problems such as heart failure. No need for pressors. PLAN: Plan Elevated creatinine: Not meeting the criteria of CE but her creatinine is 1.33 with a baseline 0.9. Will hold off on her combo diuretic pill (also her potassium replacement since those are being held) and I will give her a liter ofIV fluids. Chronic conditions * PE: Continue with apixaban * Gout: Continue allopurinol * Hypothyroidism: Continue levothyroxine * Rheumatoid arthritis: Holding off on her Humira for now. Continue with her daily prednisone. If though if patient does become hypotensive then she would require eventually stress dose steroids. VTE prophylaxis: Not indicated as patient is already anticoagulated. CODE STATUS: Addressed with the patient. Patient wishes to be full code. Disposition: Anticipate stay greater than 2 midnights Charges/Coding Visit Charges Inpatient E&M: 76141 Init Hosp L3 08/01/24 1520 Cosigner Signature (if applicable): CC: Dr. Bill Camacho DO; Dr. Shahab Adams DO~ Signed ADDENDUM by Dr. Bill Camacho DO on 08/01/24 at 1522 Addendum On exam patient had thrush on her palate as well as posterior pharynx. Patient had been complainingof trouble swallowing which I think is attributable to her thrush. I would expect that with adequate treatment of her thrush that the her difficulty swallowing should improve. I do not feel that there is an indicationfor speech therapy at this time. Patient denies any vaginal discharge. 08/01/24 1522 Cosigner Signature (if applicable): cc: Dr. Bill Camacho DO; Dr. Shahab Adams DO ~* Signed [facility]05-26-2025 Discharge summary [facility] Medical Records Department [address] [place] [address] Emergency Department Summary 08/01/24 MR#: [id number] Acct: [id number] Name: SAVANNAH AGUIRRE Rep #:[id number] : 1960 63 From: Carlos Jiménez MD PCP: Dr. Shahab Adams DO Status:REG ER Location: ED HPI History of Present Illness Chief Complaint: Shortness of Breath Detail of Chief Complaint: Increase shortness of breath with low-grade fever andproductive cough Informant: patient Onset/Context/Timing Onset: Days Context: sudden Timing: Continuous and Waxes and wanes Quality: Positive for Dyspnea on exertion and Wheezing; Negative for Orthopnea or PND Current Severity: Mild Maximum Severity: Moderate Worsened by: Exertion and Coughing Relieved by: Nothing Associated Symptoms cough, fever, chills, sweats and green sputum; Negative for rhinorrhea, post nasal drip, ear pain, sore throat or subjective Chest Pain: Positive for None Narrative Narrative: Patient is a 63-year-old woman. She was diagnosed with pulmonary embolus approximately 2 months ago. She is present on [place]. She has had pneumonia twice since. She completed a course of Bactrim since she had MRSA. She presents because of temperature and then 99-100 range with productive cough ofgreen- colored sputum. She also complained of dyspnea, dyspnea on exertion and wheezing. She has been on oxygen since diagnosed with pulmonary embolus approximately 2 months ago. She denies headache, visual, ocular auditory symptoms. She denies chest pain, orthopnea or PND. She denies pain with breathing. She is presently on prednisone 10 mg due to rheumatoid arthritis. She was on a burst recently. She denies abdominal pain, nausea, vomit or diarrhea. Has black maroon-colored stool. She does havehistory of iron deficiency anemia. She denies any urologic symptoms. PE Risk Factors: Negative for Cancer, OCP + Smoking + > 35, Prior DVT or PE, Recent surgery or Recent travel Prior similar symptoms: Yes Recent Illness/Hospitalization: Yes PFSH [facility] Medical History MRSA (methicillin resistant staph aureus) culture positive Anticoagulant long-term use History of hypothyroidism Elevated blood-pressure reading without diagnosis of hypertension SIRS (systemic inflammatory response syndrome) Sinus tachycardia Acute on chronic hypoxic respiratory failure Acute bronchospasm Pulmonary embolus Left lower lobe pneumonia Post-menopausal Depression Anxiety Thyroid disease Anemia Gastric reflux Non-smoker Leg cramps History of pain when walking Hypothyroid CKD (chronic kidney disease) Hypertension Infection of spinal cord stimulator Rheumatoid arthritis Chronic pain Arthritis Fibromyalgia Migraines Home Medications ?Medication ?Instructions ?Recorded ?Last Taken ?Type buprenorphine 20 mcg/hour weekly 1 patch transdermal Q WEEK PAIN 01/13/21 07/02/24 History transdermal patch (Butrans) hydrocodone-acetaminophen 5-325mg 1 tab PO Q6H PRN Jess n 01/13/21 07/08/24 History 5mg-325mg levothyroxine 88 mcg tablet 88 mcg PO DAILY 01/13/21 0 07/08/24 History (Synthroid) omeprazole 40 mg capsule,delayed 40 mg PO DAILY 07/08/24 History release potassium chloride 20 mEq 20 meq PO .COMPLEX SUPPLEMEN T 01/13/21 07/08/24 History tablet,extended release(part/cryst) triamterene 37.5 1 cap PO DAILY Check with pr imary 01/13/21 07/08/24 History mg-hydrochlorothiazide 25 mg doctor capsule gabapentin 400 mg capsule 400 mg PO TID PAIN 05/08/21 07/08/24 History cholecalciferol (vitamin D3) 125 125 mcg PO DAILY SUPP LEMENT 06/01/22 07/08/24 History mcg (5,000 unit) capsule magnesium 250 mg tablet 400 mg PO DINNER SUPPLEMENT 10/22/22 07/07/24 History PRIMAL DEFENCE 410 mg PO 1XD probiotic 08/2907/08/24 History metoprolol succinate 50 mg 50 mg PO QHS 11/13/2207/07 History tablet,extended release 24 hr allopurinol 300 mg tablet 300 mg PO DAILY 06/10/24 History adalimumab 40 mg/0.4 mL 40 mg subcut QWEEK 06/27/24 07/02/24 History subcutaneous pen kit (Humira(CF) Pen) apixaban 5 mg (74 tabs) tablets in 5 mg PO Q12H 07/08/24 History a dose pack (Eliquis DVT-PE Treat 30D Start) ferrous gluconate 324 mg (38 mg 324 mg PO DAILY 07/08/24 History iron) tablet prednisone 1 mg tablet 2 mg PO DAILY 06/27/2407/08 History prednisone 10 mg tablet 10 mg PO DAILY 06/27/2405/03 History albuterol sulfate 2.5 mg/3 mL 2.5 mg (3 mL) inhalation Q4H PRN 07/08/24 Unknown Rx (0.083 %) solution for nebulization #25 vials albuterol sulfate 90 mcg/actuation 2 inh inhalation Q4 H PRN shortness 07/08/24 Unknown History breath activated powder inhaler of breath or wheezing nystatin 100,000 unit/mL oral 2 ml PO BID #100 mL 05/03 Unknown Rx suspension Allergy/AdvReac Type Severity Reaction Status Date / Time oxycodone Allergy Rash Verified 08/01/24 12:45 adhesive tape AdvReac Rash Verified 08/01/24 12:45 Family History Mother Hypertension Colon polyps Father Lymphoma Surgical History Hx of hysterectomy History of carpal tunnel release Hx of thyroidectomy Hx of cholecystectomy Hx of tonsillectomy Social History household members: none Smoking Status: Never smoker alcohol intake: never substance use type: does not use ROS ROS ED Constitutional Constitutional ED: Reports fever(s) and sweats; Denies chills or weight loss Eyes Eyes: Denies blurry vision, change in vision or diplopia ENT ENT ED: Reports sore throat; Denies ear pain or rhinorrhea Cardiovascular Cardiovascular: Denies chest pain, palpitations or racing heartbeat Respiratory/Chest Respiratory/Chest: Reports cough, dyspnea, dyspnea on exertion and sputum Gastrointestinal Gastrointestinal: Denies abdominal pain, diarrhea, nausea or vomiting Genitourinary Genitourinary ED: Denies dysuria, hematuria or urinary frequency Musculoskeletal Musculoskeletal: Reports arthralgias and myalgias Integumentary Denies rash Neurologic Neurologic: Reports paresthesias and weakness; Denies headache(s) Endocrine Endocrinology: Denies cold intolerance or heat intolerance Hematologic/Lymphatic Hematologic/Lymphatic: Denies easy bleeding or easy bruising EXAM Physical Exam Const Vital Signs: 08/01/24 12:44 08/01/24 12:44 08/01/24 12:47 Temperature 99 F 99 F Temperature Source Temporal Oral Pulse Rate 105 H 88 Respiratory Rate 30 H 24 H Respiratory Effort Respiratory Pattern Blood Pressure 139/77 H 133/76 H Blood Pressure Mean 97 95 Pulse Ox 89 91 100 Oxygen Delivery Method Nasal Cannula Nasal Cannula Nasal Cannula Oxygen Flow Rate (L/min) 3 3 3 08/01/24 12:53 08/01/24 13:20 08/01/24 13:47 Temperature 99 F Temperature Source Oral Pulse Rate 89 116 H Respiratory Rate 16 20 H Respiratory Effort Short of Breath Respiratory Pattern Normal Blood Pressure 111/61 Blood Pressure Mean 77 Pulse Ox 96 Oxygen Delivery Method Nasal Cannula Nasal Cannula Oxygen Flow Rate (L/min) 3 3 Positive well nourished and well developed Constitutional Narrative: Patient's vitals are marked for elevated blood pressure, heart rate and respiratory rate. General Appearance ED: well developed HEENT Reports TM's clear and moist mucous membranes atraumatic; Negative for trauma Tympanic Membrane ED: Yes TM's clear Eyes PERRL and EOMs intact bilaterally General Eye ED: Negative for pale conjunctiva or scleral icterus Neck no lymphadenopathy, supple, no meningeal signs and no JVD Neck Narrative: Trachea is midline. There is no stridor. Resp No normal respiratory effort and No clear to auscultation bilaterally Auscultation: wheezes expiratory wheezes Cardio regular rhythm, S1 normal heart sound, S2 normal heart sound and no murmurs Rate: tachycardic GI non-tender, non-distended and no masses Auscultation: normoactive bowel sounds Back/Spine no CVA tenderness Extremity normal to inspection Neuro oriented x3 and CN's II-XII intact bilaterally Yulisa Coma Scale: document GCS findings Spontaneous Obeys Commands Oriented 15 Sensorium / Orientation: alert Speech: speech normal Psych mental status grossly normal Skin no wounds and skin turgor normal Sepsis Attestation Sepsis Alert: Yes Sepsis Attestation: Agree w/Sepsis Date exam was performed: 08/01/24 Time exam was performed: 14:00 Possible Source of Sepsis: Pulmonary Sepsis Organ Dysfunction Criteria Present: Lactic Acid > 2 mmol/L (Patient's lactic acidosis could be due to multiple aerosol treatments, hypoxia in additionto possibility of sepsis which is a possibility. Most likely it is due to hypoxia which is type a lactic acidosis.) Fluid Resuscitation Fluid resuscitation indicated?: Yes (Fluid bolus was not given. Patient is not hypotensive. She is not clinically dehydrated. And with an elevated creatinineneed to be concern for fluid overload.) MDM MDM MDM Narrative Medical decision making narrative: Differential diagnosis would include pneumonia, exacerbation of lung disease, PEfailed appropriate outpatient therapy, doubt cardiac ischemia. Doubt pneumothorax and she has bilateral lung sounds. Workup included CBC, comprehensive metabolic panel to assess for endorgan dysfunction white count anemia. Chest x-ray to evaluate for pneumonia, pneumothorax heart failure whichis doubtful. EKG to evaluate for any ischemic changes. History & Record Review Additional record(s) reviewed:: Prior outpatient record and Prior ED visit Lab Data Attestation: I reviewed the patient's lab results. Lab results narrative: CBC reveals elevated white count of 16,000 with slight shift. There is no bandemia. H&H and platelet count normal. Competence metabolic panel is an elevated creatinine from baseline to 1.33 with an estimated GFR 44. Glucose slightly elevated 147 with a normal CO2 anion gap. Patient has slight el evationof AST and ALT which is not significant. Labs: Laboratory Results - last 24 hr 08/01/24 08/01/24 12:57 13:13 WBC 16.0 H RBC 4.67 Hgb 14.0 Hct 43.2 MCV 92.5 MCH 30.0 MCHC 32.4 RDW Std Deviation 47.8 H RDW Coeff of Hiro 14.3 Plt Count 290 MPV 10.0 Immature Gran % (Auto) 0.600 Neut % (Auto) 82.6 H Lymph % (Auto) 2.8 L [place] % (Auto) 5.2 Eos % (Auto) 8.2 H Baso % (Auto) 0.6 Absolute Neuts (auto) 13.2 H Absolute Lymphs (auto) 0.44 L Nucleated RBC % 0 Sodium 137 Potassium 4.3 Chloride 99 Carbon Dioxide 24.0 Anion Gap 14 BUN 14 Creatinine 1.33 H Estim Creat Clear Calc 43.17 L Est GFR (MDRD) Non-Af 44 L BUN/Creatinine Ratio 10.3 Glucose 147 H Lactic Acid 2.7 H* Calcium 9.7 Total Bilirubin 0.56 AST 46 H ALT 37 H Alkaline Phosphatase 123 H Total Protein 6.5 Albumin 3.6 Globulin 2.9 Albumin/Globulin Ratio 1.2 I was informed by nursing staff that lactate is elevated. I was informed that patient triggered sepsis. After reviewing her images laboratory studies historyand physical agree with sepsis alert. Patient was treated with Rocephin and azithromycin. She recently completed a course of Bactrim for MRSA pneumonia. The x-ray changes are new since July 08, 2024. Since patient does have leukocytosis lactic acidosis with chronic respiratory failure with multilobar interstitial infiltrates we will contact hospitalist for admission. Radiography Chest X-Ray - ED: 2 View and Read by ED Physician (Compared to x-ray obtained July 08 there is increased markings on the left side and potentially right lower lobe. These are patchy in nature.) Diagnostic Testing: Clinical Impression(s) from Imaging Studies Chest X-Ray 08/01/24 13:55 IMPRESSION: Stable bibasilar interstitial prominence, compatible with mild chronic interstitial abnormality, trace edema or pneumonitis. Reading Location: [facility] Rhythm Strip Rhythm Strip: Sinus Tach Rate: 102 EKG Initial EKG: Attestation: I personally reviewed and interpreted this EKG as follows: Interpretation: Sinus Rhythm (Rate is 93. Patient has a sinus mechanism. There is artifact that is making it difficult for the computer to read. OK interval 144 ms. QS duration 80 ms. QT duration 338ms. [place] normal. My opinion this is a normal EKG) Management Discussion w/another healthcare provider: Hospitalist (Since Case and discussed with Dr. Camacho. He asked if I gave a fluid bolus. In my opinion fluid bolus is not indicated.) Discharge Plan Triage Chief Complaint: Shortness of Breath ED Provider: Carlos Jiménez Dx/Rx/DC Orders Clinical Impression: Multilobar lung infiltrate, Chronic respiratory failure with hypoxia, Sinus tachycardia seen on electronic device monitor, Tachypnea, Acidosis, lactic, Anticoagulant long-term use Prescriptions: No Action gabapentin 400 mg capsule 400 mg PO TID hydrocodone-acetaminophen 5-325 mg Tablet 1 tab PO Q6H PRN (Reason: Pain) omeprazole 40 mg Capsule,Delayed Release(Dr/Ec) 40 mg PO DAILY triamterene-hydrochlorothiazid 37.5-25 mg Capsule 1 cap PO DAILY levothyroxine [Synthroid] 88 mcg Tablet 88 mcg PO DAILY potassium chloride 20 mEq tablet,ER particles/crystals 20 meq PO .COMPLEX Rx Instructions: 20 mEq orally 2 tabs am and 1 tab pm; buprenorphine [Butrans] 20 mcg/hour Patch Weekly 1 patch TRANSDERMAL QWEEK Rx Instructions: PT DOES ON SATURDAYS cholecalciferol (vitamin D3) 125 mcg (5,000 unit) Capsule 125 mcg PO DAILY magnesium 250 mg tablet 400 mg PO DINNER Patient Comments: PT TAKES AT NIGHT PRIMAL DEFENCE 410 mg PO 1XD Rx Instructions: DIETARY SUPPLEMENT metoprolol succinate 50 mg Tablet Extended Release 24 Hr 50 mg PO QHS allopurinol 300 mg tablet 300 mg PO DAILY prednisone 10 mg tablet 10 mg PO DAILY Rx Instructions: with 1mg tab prednisone 1 mg tablet 2 mg PO DAILY Rx Instructions: with 10mg, pcp is tapering dose down ferrous gluconate 324 mg (38 mg iron) tablet 324 mg PO DAILY Humira(CF) Pen 40 mg/0.4 mL pen injector kit 40 mg subcut QWEEK Patient Comments: PT TAKES ON SATURDAYS Eliquis DVT-PE Treat 30D Start 5 mg (74 tabs) tablets,dose pack 5 mg PO Q12H albuterol sulfate 90 mcg/actuation aerosol powdr breath activated 2 inh inhalation Q4H PRN (Reason: shortness of breath or wheezing) nystatin 100,000 unit/mL suspension 2 ml PO BID Qty: 100 0RF Rx Instructions: Swish and gargle with 2 ml then spit out 2 times a day albuterol sulfate 2.5 mg /3 mL (0.083 %) solution for nebulization 2.5 mg inhalation Q4H PRN Qty: 25 0RF Rx Instructions: Use q4 hours and PRN for wheezing Primary Care Provider: Shahab Adams Referrals: Shahab Adams DO [Primary Care Provider] - Print Language: Brazilian Disposition Disposition: Acute Care Hospital [facility] What to do if you have Problems For any increased pain, shortness of breath, bleeding, nausea or vomiting, chestpain, or any unexpected problems, contact your Primary Care Provider. Call [facility] ([phone]) or report tothe closest Emergency Room. Call 911 if necessary. 08/01/24 1439 Cosigner Signature (if applicable): CC: Dr. Shahab Adams DO ~ Signed [facility]05-26-2025 Radiology Diagnostic study note [facility] Imaging Services [address] [place] [address] Chest PA and Lateral MR#: [id number] Acct: [id number] Name: SAVANNAH AGUIRRE Rep #: [id number] : 1960 F 63 From: Karen Borrero MD PCP: Dr. Shahab Adams DO Status: REG ER Study:Chest PA and Lateral Date of Exam: 08/01/24 Exam# [id number] Ordering Dr: Brittani Jiménez MD PROCEDURE: CHEST PA AND LATERAL 08/01/2024 REASON FOR EXAM: CHRONIC HYPOXIA, PRODUCTIVE COUGH AND FEVER TECHNIQUE: Frontal and lateral views of the chest. COMPARISON: Chest radiograph 07/08/2024. FINDINGS: Hardware: None. Heart: The heart size is normal. Mediastinum: The mediastinal contour is unremarkable. Lungs: Stable bibasilar interstitial prominence. No focal consolidation, pleural effusion or pneumothorax. Bones: Degenerative changes are identified within the thoracic spine. Stable thoracolumbar levoscoliosis. RAD/Chest PA and Lateral IMPRESSION: Stable bibasilar interstitial prominence, compatible with mild chronic interstitial abnormality, trace edema or pneumonitis. Reading Location: [facility] CC: Dr. Shahab Adams DO; Dr. 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 Shahab Adams, DO Status:REG ER Location: ED HPI History of Present Illness Chief Complaint: Shortness of Breath Detail of Chief Complaint: Increase shortness of breath with low-grade fever andproductive cough Informant: patient Onset/Context/Timing Onset: Days Context: sudden Timing: Continuous and Waxes and wanes Quality: Positive for Dyspnea on exertion and Wheezing; Negative for Orthopnea or PND Current Severity: Mild Maximum Severity: Moderate Worsened by: Exertion and Coughing Relieved by: Nothing Associated Symptoms cough, fever, chills, sweats and green sputum; Negative for rhinorrhea, post nasal drip, ear pain, sore throat or subjective Chest Pain: Positive for None Narrative Narrative: Patient is a 63-year-old woman. She was diagnosed with pulmonary embolus approximately 2 months ago. She is present on [employer]. She has had pneumonia twice since. She completed a course of Bactrim since she had MRSA. She presents because of temperature and then 99-100 range with productive cough of green-colored sputum. She also complained of dyspnea, dyspnea on exertion and wheezing. She has been on oxygen since diagnosed with pulmonary embolus approximately 2 months ago. She denies headache, visual, ocular auditory symptoms. She denies chest pain, orthopnea or PND. She denies pain with breathing. She is presently on prednisone 10 mg due to rheumatoid arthritis. She was on a burst recently. She denies abdominal pain, nausea, vomit or diarrhea. Has black maroon-colored stool. She does have history of iron deficiency anemia. She denies any urologic symptoms. PE Risk Factors: Negative for Cancer, OCP + Smoking + > 35, Prior DVT or PE, Recent surgery or Recent travel Prior similar symptoms: Yes Recent Illness/Hospitalization: Yes [facility] Medical History MRSA (methicillin resistant staph aureus) culture positive Anticoagulant long-term use History of hypothyroidism Elevated blood-pressure reading without diagnosis of hypertension SIRS (systemic inflammatory response syndrome) Sinus tachycardia Acute on chronic hypoxic respiratory failure Acute bronchospasm Pulmonary embolus Left lower lobe pneumonia Post-menopausal Depression Anxiety Thyroid disease Anemia Gastric reflux Non-smoker Leg cramps History of pain when walking Hypothyroid CKD (chronic kidney disease) Hypertension Infection of spinal cord stimulator Rheumatoid arthritis Chronic pain Arthritis Fibromyalgia Migraines Home Medications ?Medication ?Instructions ?Recorded ?Last Taken ?Type buprenorphine 20 mcg/hour weekly 1 patch transdermal Q WEEK PAIN 01/13/21 07/02/24 History transdermal patch (Butrans) hydrocodone-acetaminophen 5-325mg 1 tab PO Q6H PRN Jess n 01/13/21 07/08/24 History 5mg-325mg levothyroxine 88 mcg tablet 88 mcg PO DAILY 01/13/21 0 07/08/24 History (Synthroid) omeprazole 40 mg capsule,delayed 40 mg PO DAILY 07/08/24 History release potassium chloride 20 mEq 20 meq PO .COMPLEX SUPPLEMEN T 01/13/21 07/08/24 History tablet,extended release(part/cryst) triamterene 37.5 1 cap PO DAILY Check with pr imary 01/13/21 07/08/24 History mg-hydrochlorothiazide 25 mg doctor capsule gabapentin 400 mg capsule 400 mg PO TID PAIN 05/08/21 07/08/24 History cholecalciferol (vitamin D3) 125 125 mcg PO DAILY SUPP LEMENT 06/01/22 07/08/24 History mcg (5,000 unit) capsule magnesium 250 mg tablet 400 mg PO DINNER SUPPLEMENT 10/22/22 07/07/24 History PRIMAL DEFENCE 410 mg PO 1XD probiotic 08/2907/08/24 History metoprolol succinate 50 mg 50 mg PO QHS 11/13/2207/07 History tablet,extended release 24 hr allopurinol 300 mg tablet 300 mg PO DAILY 06/10/24 History adalimumab 40 mg/0.4 mL 40 mg subcut QWEEK 06/27/24 07/02/24 History subcutaneous pen kit (Humira(CF) Pen) apixaban 5 mg (74 tabs) tablets in 5 mg PO Q12H 07/08/24 History a dose pack (Eliquis DVT-PE Treat 30D Start) ferrous gluconate 324 mg (38 mg 324 mg PO DAILY 07/08/24 History iron) tablet prednisone 1 mg tablet 2 mg PO DAILY 06/27/2407/08 History prednisone 10 mg tablet 10 mg PO DAILY 06/27/24 0505/03 History albuterol sulfate 2.5 mg/3 mL 2.5 mg (3 mL) inhalation Q4H PRN 07/08/24 Unknown Rx (0.083 %) solution for nebulization #25 vials albuterol sulfate 90 mcg/actuation 2 inh inhalation Q4 H PRN shortness 07/08/24 Unknown History breath activated powder inhaler of breath or wheezing nystatin 100,000 unit/mL oral 2 ml PO BID #100 mL 05/03 Unknown Rx suspension Allergy/AdvReac Type Severity Reaction Status Date / Time oxycodone Allergy Rash Verified 08/01/24 12:45 adhesive tape AdvReac Rash Verified 08/01/24 12:45 Family History Mother Hypertension Colon polyps Father Lymphoma Surgical History Hx of hysterectomy History of carpal tunnel release Hx of thyroidectomy Hx of cholecystectomy Hx of tonsillectomy Social History household members: none Smoking Status: Never smoker alcohol intake: never substance use type: does not use ROS ROS ED Constitutional Constitutional ED: Reports fever(s) and sweats; Denies chills or weight loss Eyes Eyes: Denies blurry vision, change in vision or diplopia ENT ENT ED: Reports sore throat; Denies ear pain or rhinorrhea Cardiovascular Cardiovascular: Denies chest pain, palpitations or racing heartbeat Respiratory/Chest Respiratory/Chest: Reports cough, dyspnea, dyspnea on exertion and sputum Gastrointestinal Gastrointestinal: Denies abdominal pain, diarrhea, nausea or vomiting Genitourinary Genitourinary ED: Denies dysuria, hematuria or urinary frequency Musculoskeletal Musculoskeletal: Reports arthralgias and myalgias Integumentary Denies rash Neurologic Neurologic: Reports paresthesias and weakness; Denies headache(s) Endocrine Endocrinology: Denies cold intolerance or heat intolerance Hematologic/Lymphatic Hematologic/Lymphatic: Denies easy bleeding or easy bruising EXAM Physical Exam Const Vital Signs: 08/01/24 12:44 08/01/24 12:44 08/01/24 12:47 Temperature 99 F 99 F Temperature Source Temporal Oral Pulse Rate 105 H 88 Respiratory Rate 30 H 24 H Respiratory Effort Respiratory Pattern Blood Pressure 139/77 H 133/76 H Blood Pressure Mean 97 95 Pulse Ox 89 91 100 Oxygen Delivery Method Nasal Cannula Nasal Cannula Nasal Cannula Oxygen Flow Rate (L/min) 3 3 3 08/01/24 12:53 08/01/24 13:20 08/01/24 13:47 Temperature 99 F Temperature Source Oral Pulse Rate 89 116 H Respiratory Rate 16 20 H Respiratory Effort Short of Breath Respiratory Pattern Normal Blood Pressure 111/61 Blood Pressure Mean 77 Pulse Ox 96 Oxygen Delivery Method Nasal Cannula Nasal Cannula Oxygen Flow Rate (L/min) 3 3 Positive well nourished and well developed Constitutional Narrative: Patient's vitals are marked for elevated blood pressure, heart rate and respiratory rate. General Appearance ED: well developed HEENT Reports TM's clear and moist mucous membranes atraumatic; Negative for trauma Tympanic Membrane ED: Yes TM's clear Eyes PERRL and EOMs intact bilaterally General Eye ED: Negative for pale conjunctiva or scleral icterus Neck no lymphadenopathy, supple, no meningeal signs and no JVD Neck Narrative: Trachea is midline. There is no stridor. Resp No normal respiratory effort and No clear to auscultation bilaterally Auscultation: wheezes expiratory wheezes Cardio regular rhythm, S1 normal heart sound, S2 normal heart sound and no murmurs Rate: tachycardic GI non-tender, non-distended and no masses Auscultation: normoactive bowel sounds Back/Spine no CVA tenderness Extremity normal to inspection Neuro oriented x3 and CN's II-XII intact bilaterally Yulisa Coma Scale: document GCS findings Spontaneous Obeys Commands Oriented 15 Sensorium / Orientation: alert Speech: speech normal Psych mental status grossly normal Skin no wounds and skin turgor normal Sepsis Attestation Sepsis Alert: Yes Sepsis Attestation: Agree w/Sepsis Date exam was performed: 08/01/24 Time exam was performed: 14:00 Possible Source of Sepsis: Pulmonary Sepsis Organ Dysfunction Criteria Present: Lactic Acid > 2 mmol/L (Patient's lactic acidosis could be due to multiple aerosol treatments, hypoxia in additionto possibility of sepsis which is a possibility. Most likely it is due to hypoxia which is type a lactic acidosis.) Fluid Resuscitation Fluid resuscitation indicated?: Yes (Fluid bolus was not given. Patient is not hypotensive. She is not clinically dehydrated. And with an elevated creatinineneed to be concern for fluid overload.) MDM MDM MDM Narrative Medical decision making narrative: Differential diagnosis would include pneumonia, exacerbation of lung disease, PEfailed appropriate outpatient therapy, doubt cardiac ischemia. Doubt pneumothorax and she has bilateral lung sounds. Workup included CBC, comprehensive metabolic panel to assess for endorgan dysfunction white count anemia. Chest x-ray to evaluate for pneumonia, pneumothorax heart failure whichis doubtful. EKG to evaluate for any ischemic changes. History & Record Review Additional record(s) reviewed:: Prior outpatient record and Prior ED visit Lab Data Attestation: I reviewed the patient's lab results. Lab results narrative: CBC reveals elevated white count of 16,000 with slight shift. There is no bandemia. H&H and platelet count normal. Competence metabolic panel is an elevated creatinine from baseline to 1.33 with an estimated GFR 44. Glucose slightly elevated 147 with a normal CO2 anion gap. Patient has slight elevationof AST and ALT which is not significant. Labs: Laboratory Results - last 24 hr 08/01/24 08/01/24 12:57 13:13 WBC 16.0 H RBC 4.67 Hgb 14.0 Hct 43.2 MCV 92.5 MCH 30.0 MCHC 32.4 RDW Std Deviation 47.8 H RDW Coeff of Hiro 14.3 Plt Count 290 MPV 10.0 Immature Gran % (Auto) 0.600 Neut % (Auto) 82.6 H Lymph % (Auto) 2.8 L [place] % (Auto) 5.2 Eos % (Auto) 8.2 H Baso % (Auto) 0.6 Absolute Neuts (auto) 13.2 H Absolute Lymphs (auto) 0.44 L Nucleated RBC % 0 Sodium 137 Potassium 4.3 Chloride 99 Carbon Dioxide 24.0 Anion Gap 14 BUN 14 Creatinine 1.33 H Estim Creat Clear Calc 43.17 L Est GFR (MDRD) Non-Af 44 L BUN/Creatinine Ratio 10.3 Glucose 147 H Lactic Acid 2.7 H* Calcium 9.7 Total Bilirubin 0.56 AST 46 H ALT 37 H Alkaline Phosphatase 123 H Total Protein 6.5 Albumin 3.6 Globulin 2.9 Albumin/Globulin Ratio 1.2 I was informed by nursing staff that lactate is elevated. I was informed that patient triggered sepsis. After reviewing her images laboratory studies historyand physical agree with sepsis alert. Patient was treated with Rocephin and azithromycin. She recently completed a course of Bactrim for MRSA pneumonia. The x-ray changes are new since July 08, 2024. Since patient does have leukocytosis lactic acidosis with chronic respiratory failure with multilobar interstitial infiltrates we will contact hospitalist for admission. Radiography Chest X-Ray - ED: 2 View and Read by ED Physician (Compared to x-ray obtained July 08 there is increased markings on the left side and potentially right lower lobe. These are patchy in nature.) Diagnostic Testing: Clinical Impression(s) from Imaging Studies Chest X-Ray 08/01/24 13:55 IMPRESSION: Stable bibasilar interstitial prominence, compatible with mild chronic interstitial abnormality, trace edema or pneumonitis. Reading Location: [facility] Rhythm Strip Rhythm Strip: Sinus Tach Rate: 102 EKG Initial EKG: Attestation: I personally reviewed and interpreted this EKG as follows: Interpretation: Sinus Rhythm (Rate is 93. Patient has a sinus mechanism. There is artifact that is making it difficult for the computer to read. OK interval 144 ms. QS duration 80 ms. QT duration 338 ms. [place] normal. My opinion this is a normal EKG) Management Discussion w/another healthcare provider: Hospitalist (Since Case and discussed with Dr. Camacho. He asked if I gave a fluid bolus. In my opinion fluid bolus is not indicated.) Discharge Plan Triage Chief Complaint: Shortness of Breath ED Provider: Carlos Jiménez Dx/Rx/DC Orders Clinical Impression: Multilobar lung infiltrate, Chronic respiratory failure with hypoxia, Sinus tachycardia seen on electronic device monitor, Tachypnea, Acidosis, lactic, Anticoagulant long-term use Prescriptions: No Action gabapentin 400 mg capsule 400 mg PO TID hydrocodone-acetaminophen 5-325 mg Tablet 1 tab PO Q6H PRN (Reason: Pain) omeprazole 40 mg Capsule,Delayed Release(Dr/Ec) 40 mg PO DAILY triamterene-hydrochlorothiazid 37.5-25 mg Capsule 1 cap PO DAILY levothyroxine [Synthroid] 88 mcg Tablet 88 mcg PO DAILY potassium chloride 20 mEq tablet,ER particles/crystals 20 meq PO .COMPLEX Rx Instructions: 20 mEq orally 2 tabs am and 1 tab pm; buprenorphine [Butrans] 20 mcg/hour Patch Weekly 1 patch TRANSDERMAL QWEEK Rx Instructions: PT DOES ON SATURDAYS cholecalciferol (vitamin D3) 125 mcg (5,000 unit) Capsule 125 mcg PO DAILY magnesium 250 mg tablet 400 mg PO DINNER Patient Comments: PT TAKES AT NIGHT PRIMAL DEFENCE 410 mg PO 1XD Rx Instructions: DIETARY SUPPLEMENT metoprolol succinate 50 mg Tablet Extended Release 24 Hr 50 mg PO QHS allopurinol 300 mg tablet 300 mg PO DAILY prednisone 10 mg tablet 10 mg PO DAILY Rx Instructions: with 1mg tab prednisone 1 mg tablet 2 mg PO DAILY Rx Instructions: with 10mg, pcp is tapering dose down ferrous gluconate 324 mg (38 mg iron) tablet 324 mg PO DAILY Humira(CF) Pen 40 mg/0.4 mL pen injector kit 40 mg subcut QWEEK Patient Comments: PT TAKES ON SATURDAYS Eliquis DVT-PE Treat 30D Start 5 mg (74 tabs) tablets,dose pack 5 mg PO Q12H albuterol sulfate 90 mcg/actuation aerosol powdr breath activated 2 inh inhalation Q4H PRN (Reason: shortness of breath or wheezing) nystatin 100,000 unit/mL suspension 2 ml PO BID Qty: 100 0RF Rx Instructions: Swish and gargle with 2 ml then spit out 2 times a day albuterol sulfate 2.5 mg /3 mL (0.083 %) solution for nebulization 2.5 mg inhalation Q4H PRN Qty: 25 0RF Rx Instructions: Use q4 hours and PRN for wheezing Primary Care Provider: Shahab Adams Referrals: Shahab Adams DO [Primary Care Provider] - Print Language: Brazilian Disposition Disposition: Acute Care Hospital [facility] What to do if you have Problems For any increased pain, shortness of breath, bleeding, nausea or vomiting, chestpain, or any unexpected problems, contact your Primary Care Provider. Call [facility] ([phone]) or report to the closest Emergency Room. Call 911 if necessary. 08/01/24 4082 <Electronically signed by Carlos Jiménez MD> Cosigner Signature (if applicable): CC: Dr. Shahab Adams, DO ~ Signed [facility] Work Phone: 1(804) 213-147105-22-2025 NoteHNO ID: [id number] Author: ?, ?, ? Service: ? Author Type: ? Type: Progress Notes Filed: 08/02/2024 13:42 Note Text: [facility]ill Assessment Medication(s): Humira CF Patient's current medication list and adherence status to current therapy were reviewed by Specialty Pharmacy clinical pharmacist to identify any new drug interactions or non-compliance to therapy. Therapy continues to be appropriate for disease, patient response, and medical condition. Verification of therapeutic benefit and effectiveness with current therapy was completed. Adverse events, barriers in adherence, and side effects were assessed and addressed if applicable. Will proceed with refill with no changes in therapy - patient progressing towards achieving therapeutic goals based on medication-specific laboratory parameters, disease state markers and outcomes. Office/provider notes have been reviewed prior to dispensing the medication. Radio Dispatcher Assessment Patient confirmed: Yes Med/dose confirmed: Yes Supplies needed: No supplies needed Missed doses: No Estimated days supply on hand: 0 Next cycle/dose due: 08/05/24 Copay amount: 0 Payment confirmed: Yes Delivery method: FedEx Signature required: No Delivery address: [address] [place] [id number] Delivery date: 08/04/24 Questions or concerns for the pharmacist?: No Did you have any side effects believed to be related to this medication, that resulted in hospitalization?: No Current Outpatient Medications on File Prior to Visit Medication Sig adalimumab (HUMIRA,CF, PEN) 40 mg/0.4 mL pen kit Inject 40mg(1 pen) subcutaneously one time a week. allopurinol (ZYLOPRIM) 300 mg tablet Take 1 tablet by mouth once daily. sulfaSALAzine (AZULFIDINE) 500 mg tablet Take 2 tablets by mouth two times a day. colchicine 0.6 mg tablet take 1 tablet by mouth twice a day predniSONE (DELTASONE) 10 mg tablet Take 1 tablet by mouth once daily. Omeprazole 40 mg capsule Take 40 mg by mouth twice daily. levothyroxine (SYNTHROID) 100 mcg tablet Take 100 mcg by mouth once daily. metoprolol tartrate, short acting, (LOPRESSOR) 25 mg tablet Take 50 mg by mouth once daily. triamterene-hydrochlorothiazide 37.5-25 mg per capsule Take 1 capsule by mouth once daily. potassium chloride (K-SUNG, KLOR-CON) 20 mEq packet Take 20 mEq by mouth three times daily. magnesium oxide 400 mg cap Take 400 mg by mouth twice daily. gabapentin (NEURONTIN) 300 mg capsule Take 300 mg by mouth once daily. HYDROcodone-acetaminophen (NORCO) 5-325 mg per tablet Take 1 tablet by mouth twice daily. buprenorphine 15 mcg/hour ptwk Apply as directed. No current facility-administered medications on file prior to visit. [facility] SPECIAL[facility] CLINICAL ASSESSMENT - INFLAMMATORY CONDITIONS V6: Assessment to use: Refill Date of influenza vaccination reminder: 11/30/2023 Date of most recent vaccination assessment: 11/30/2023 Treatment Plan Information: Actemra Actpen 162mg/0.9mL Inject 1 pen (162mg) subcutaneously every other week. (M06.00) Seronegative rheumatoid arthritis Past treatment: Humira Est. Tx Plan Start Date: 10/09/2023 Estimated Start Date Info: No information available Est. Estimated Treatment Duration: Until loss of efficacy and/or no longer tolerated. Maximo Clark CPhT [facility], Infl[facility] P: [phone] F: [phone] Telephone encounter Note* Telephone Encounter - Aimee Garcia RN - 07/07/2024 9:41 AM EDT Images from the original note were not included. Most recent Rheumatology visit: 05/26/2024 (with Chris Cody) Last Bone Density on file: None on file Rheumatology Care Team: None on file Recent Office Visits - This Specialty 05/26/2024 Seronegative rheumatoid arthritis (HCC) Rheumatology Chris Cody MD 04/07/2024 Seronegative rheumatoid arthritis (HCC) Rheumatology Chris Cody MD 01/01/2024 Seronegative rheumatoid arthritis (HCC) Rheumatology Chris Cody MD Upcoming Rheumatology Appointments - Next 365 Days Visit Type Date Time Department CELINA EST [facility] MEDICAL 08/04/2024 8:40 AM [facility] MAIN A50 CBC: Latest Ref Rng & Units 04/08/2024 05/26/2024 CBC WBC 3.70 - 11.00 k/uL 13.43 9.42 Hemoglobin 11.5 - 15.5 g/dL 14.4 15.1 Hematocrit 36.0 - 46.0 % 44.0 46.1 Platelet Count 150 - 400 k/uL 209 230 Abs Neut (ANC) 1.45 - 7.50 k/uL 11.34 7.75 Abs Lymph 1.00 - 4.00 k/uL 0.97 0.70 Vitamin D: Latest Ref Rng & Units 05/26/2024 Vitamin D Vitamin D 25 Hydroxy 31.0 - 80.0 ng/mL 59.7 LFT: Latest Ref Rng & Units 04/08/2024 05/26/2024 CMP Sodium 136 - 144 mmol/L 144 143 Potassium 3.7 - 5.1 mmol/L 3.9 4.6 Chloride 98 - 107 mmol/L 104 103 CO2 22 - 30 mmol/L 28 27 Glucose 74 - 99 mg/dL 136 129 BUN 7 - 21 mg/dL 31 30 Creatinine 0.58 - 0.96 mg/dL 1.11 1.17 Calcium 8.5 - 10.2 mg/dL 9.9 10.5 AST 13 - 35 U/L 31 42 ALT 7 - 38 U/L 45 60 Alkaline Phosphatase 34 - 123 U/L 88 93 Hepatic Function: Creatinine: Latest Ref Rng & Units 04/08/2024 05/26/2024 Creatinine Creatinine 0.58 - 0.96 mg/dL 1.11 1.17 ESR/CRP: Latest Ref Rng & Units 04/08/2024 05/26/2024 ESR, WSR WSR 0 - 20 mm/hr 2 5 Latest Ref Rng & Units 04/08/2024 05/26/2024 CRP CRP <0.9 mg/dL 0.3 0.5 Uric Acid: Latest Ref Rng & Units 12/30/2023 05/26/2024 Uric Acid Uric Acid 2.5 - 6.6 mg/dL 3.3 3.3 Open Standing (Multiple Instance) Lab Orders None Open Future (Single Instance) Lab Orders None Aimee Garcia RN [facility]05-01-2025 Miscellaneous Notes* Telephone Encounter - Aimee Garcia RN - 07/07/2024 9:41 AM EDT Images from the original note were not included. Most recent Rheumatology visit: 05/26/2024 (with Chris Cody) Last Bone Density on file: None on file Rheumatology Care Team: None on file Recent Office Visits - This Specialty 05/26/2024 Seronegative rheumatoid arthritis (HCC) Rheumatology Chris Cody MD 04/07/2024 Seronegative rheumatoid arthritis (HCC) Rheumatology Chris Cody MD 01/01/2024 Seronegative rheumatoid arthritis (HCC) Rheumatology Chris Cody MD Upcoming Rheumatology Appointments - Next 365 Days Visit Type Date Time Department [facility] 08/04/2024 8:40 AM [facility] MAIN A50 CBC: Latest Ref Rng & Units 04/08/2024 05/26/2024 CBC WBC 3.70 - 11.00 k/uL 13.43 9.42 Hemoglobin 11.5 - 15.5 g/dL 14.4 15.1 Hematocrit 36.0 - 46.0 % 44.0 46.1 Platelet Count 150 - 400 k/uL 209 230 Abs Neut (ANC) 1.45 - 7.50 k/uL 11.34 7.75 Abs Lymph 1.00 - 4.00 k/uL 0.97 0.70 Vitamin D: Latest Ref Rng & Units 05/26/2024 Vitamin D Vitamin D 25 Hydroxy 31.0 - 80.0 ng/mL 59.7 LFT: Latest Ref Rng & Units 04/08/2024 05/26/2024 CMP Sodium 136 - 144 mmol/L 144 143 Potassium 3.7 - 5.1 mmol/L 3.9 4.6 Chloride 98 - 107 mmol/L 104 103 CO2 22 - 30 mmol/L 28 27 Glucose 74 - 99 mg/dL 136 129 BUN 7 - 21 mg/dL 31 30 Creatinine 0.58 - 0.96 mg/dL 1.11 1.17 Calcium 8.5 - 10.2 mg/dL 9.9 10.5 AST 13 - 35 U/L 31 42 ALT 7 - 38 U/L 45 60 Alkaline Phosphatase 34 - 123 U/L 88 93 Hepatic Function: Creatinine: Latest Ref Rng & Units 04/08/2024 05/26/2024 Creatinine Creatinine 0.58 - 0.96 mg/dL 1.11 1.17 ESR/CRP: Latest Ref Rng & Units 04/08/2024 05/26/2024 ESR, WSR WSR 0 - 20 mm/hr 2 5 Latest Ref Rng & Units 04/08/2024 05/26/2024 CRP CRP <0.9 mg/dL 0.3 0.5 Uric Acid: Latest Ref Rng & Units 12/30/2023 05/26/2024 Uric Acid Uric Acid 2.5 - 6.6 mg/dL 3.3 3.3 Open Standing (Multiple Instance) Lab Orders None Open Future (Single Instance) Lab Orders None Aimee Garcia RN [facility] NoteHNO ID: [id number] Author: ?, ?, ? Service: ? Author Type: ? Type: Progress Notes Filed: 07/05/2024 10:50 Note Text: [facility] Refill Assessment Medication(s): Humira Patient's current medication list and adherence status to current therapy were reviewed by Specialty Pharmacy clinical pharmacist to identify any new drug interactions or non-compliance to therapy. Therapy continues to be appropriate for disease, patient response, and medical condition. Verification of therapeutic benefit and effectiveness with current therapy was completed. Adverse events, barriers in adherence, and side effects were assessed and addressed if applicable. Will proceed with refill with no changes in therapy - patient progressing towards achieving therapeutic goals based on medication-specific laboratory parameters, disease state markers and outcomes. Office/provider notes have been reviewed prior to dispensing the medication. Radio Dispatcher Assessment Patient confirmed: Yes Med/dose confirmed: Yes Supplies needed: Alcohol swabs Missed doses: No Estimated days supply on hand: 0 Next cycle/dose due: 07/08/24 Copay amount: 0 Copay form of payment: (N/A) Payment confirmed: Yes Delivery method: FedEx Signature required: Waived on patient request Delivery address: [address] [place] [id number] Delivery date: 07/07/24 Questions or concerns for the pharmacist?: No Did you have any side effects believed to be related to this medication, that resulted in hospitalization?: No Current Outpatient Medications on File Prior to Visit Medication Sig colchicine 0.6 mg tablet take 1 tablet by mouth twice a day predniSONE (DELTASONE) 10 mg tablet Take 1 tablet by mouth once daily. predniSONE (DELTASONE) 1 mg tablet Take 4 tablets by mouth once daily for 14 days, THEN 3 tablets once daily for 14 days, THEN 2 tablets once daily for 14 days, THEN 1 tablet once daily for 14 days. adalimumab (HUMIRA,CF, PEN) 40 mg/0.4 mL pen kit Inject 40mg(1 pen) subcutaneously one time a week. allopurinol (ZYLOPRIM) 300 mg tablet Take 1 tablet by mouth once daily. Omeprazole 40 mg capsule Take 40 mg by mouth twice daily. levothyroxine (SYNTHROID) 100 mcg tablet Take 100 mcg by mouth once daily. metoprolol tartrate, short acting, (LOPRESSOR) 25 mg tablet Take 50 mg by mouth once daily. triamterene-hydrochlorothiazide 37.5-25 mg per capsule Take 1 capsule by mouth once daily. potassium chloride (K-SUNG, KLOR-CON) 20 mEq packet Take 20 mEq by mouth three times daily. magnesium oxide 400 mg cap Take 400 mg by mouth twice daily. gabapentin (NEURONTIN) 300 mg capsule Take 300 mg by mouth once daily. HYDROcodone-acetaminophen (NORCO) 5-325 mg per tablet Take 1 tablet by mouth twice daily. buprenorphine 15 mcg/hour ptwk Apply as directed. No current facility-administered medications on file prior to visit. [facility] SPECIALTY CLINICAL ASSESSMENT - INFLAMMATORY CONDITIONS V6: Assessment to use: Refill Date of influenza vaccination reminder: 11/30/2023 Date of most recent vaccination assessment: 11/30/2023 Treatment Plan Information: Actemra Actpen 162mg/0.9mL Inject 1 pen (162mg) subcutaneously every other week. (M06.00) Seronegative rheumatoid arthritis Past treatment: Humira Est. Tx Plan Start Date: 10/09/2023 Estimated Start Date Info: No information available Est. Estimated Treatment Duration: Until loss of efficacy and/or no longer tolerated. [facility] Medical Records Department [address] [place] [address] Instructions for Home/Discharge Instructions 06/29/24 1627 MR#: [id number] Acct: [id number] Name: SAVANNAH AGUIRRE Rep #:[id number] : 1960 63 From: Shahab Warren DO PCP: Dr. Shahab Adams DO Status:ADM IN Discharge Instructions Diet Discharge Diet: No restrictions DC O2, CPAP, BIPAP needs Home O2 Discharge instructions: Yes Type of respiratory needs?: Oxygen Oxygen frequency: With Ambulation Oxygen liters per minute during Ambulation: 2 L Dressing / Incision Discharge Activity: Return to Normal Activity Weight Bearing Status: Full weight bearing Follow Up Care Test Results: Test results from this visit will be discussed in further detail at your follow- up appointment, if applicable. Discharge Plan Admission Admit Date/Time: 06/27/24 16:09 Primary Reason for Your Visit: Pneumonia, atelectasis Attending Provider: Shahab Warren Primary Care Provider: Shahab Adams Consulting Providers: Maria E Strickland Instructions Additional Instructions / Restrictions: Oxygen at 2 L/min when ambulating and during any activity Discharge Orders/Prescriptions Prescriptions: New levofloxacin 750 mg tablet 750 mg PO DAILY Qty: 5 0RF Rx Instructions: Start on 06/30/2024 Continued gabapentin 400 mg capsule 400 mg PO TID Patient Comments: take 1 capsule by mouth three times a day albuterol sulfate [ProAir HFA] 90 mcg/actuation HFA aerosol inhaler 2 puff inhalation Q4H PRN (Reason: shortness of breath or wheezing) hydrocodone-acetaminophen 5-325 mg Tablet 1 tab PO Q6H PRN (Reason: Pain) omeprazole 40 mg Capsule,Delayed Release(Dr/Ec) 40 mg PO DAILY triamterene-hydrochlorothiazid 37.5-25 mg Capsule 1 cap PO DAILY levothyroxine [Synthroid] 88 mcg Tablet 88 mcg PO DAILY potassium chloride 20 mEq tablet,ER particles/crystals 20 meq PO .COMPLEX Rx Instructions: 20 mEq orally 2 tabs am and 1 tab pm; buprenorphine [Butrans] 20 mcg/hour Patch Weekly 1 patch TRANSDERMAL QWEEK Rx Instructions: on wednesdays cholecalciferol (vitamin D3) 125 mcg (5,000 unit) Capsule 125 mcg PO DAILY magnesium 250 mg tablet 400 mg PO DINNER PRIMAL DEFENCE 410 mg PO 1XD Rx Instructions: DIETARY SUPPLEMENT metoprolol succinate 50 mg Tablet Extended Release 24 Hr 50 mg PO QHS allopurinol 300 mg tablet 300 mg PO DAILY colchicine 0.6 mg tablet 0.6 mg PO DAILY prednisone 10 mg tablet 10 mg PO DAILY Rx Instructions: with 1mg tab prednisone 1 mg tablet 2 mg PO DAILY Rx Instructions: with 10mg, pcp is tapering dose down ferrous gluconate 324 mg (38 mg iron) tablet 324 mg PO DAILY Humira(CF) Pen 40 mg/0.4 mL pen injector kit 40 mg subcut QWEEK Eliquis DVT-PE Treat 30D Start 5 mg (74 tabs) tablets,dose pack 5 mg PO Q12H Held sulfasalazine 500 mg tablet 500 mg PO BID Hold Instructions: Resume per direction of your customer sales advisor Patient Comments: pt has not started yet Referrals / Follow Up: Shahab Adams DO [Primary Care Provider] - In 1 Week Disposition Disposition (needs filled in before D/C Order can be placed): Home, Self Care 06/29/24 1633Shahab Warren DO CC: Dr. Shahab Adams DO; Dr. Maria E Strickland MD ~ Signed [facility]04-23-2025 [facility] Radiology Diagnostic study note [facility] Imaging Services [address], [place] [address] Chest PA and Lateral MR#: [id number] Acct: [id number] Name: SAVANNAH AGUIRRE Rep #: [id number] : 1960 F 63 From: Ke Crystal MD PCP: Dr. Shahab Adams DO Status: ADM IN Study:Chest PA and Lateral Date of Exam: 06/29/24 Exam# [id number] Ordering Dr: Shahab Guillermo DO PROCEDURE: CHEST PA AND LATERAL 06/29/2024 REASON FOR EXAM: PNEUMONIA TECHNIQUE: Frontal and lateral views of the chest. COMPARISON: Comparison is made with prior study dated June 30, 2024. FINDINGS: Hardware: EKG electrodes are seen. Heart: The heart size is normal. Mediastinum: The mediastinal contour is unremarkable. Lungs: Minimal residual changes are seen at the lung bases suggestive of mild bibasilar atelectasis. No focal infiltrate is seen. Bones: Degenerative changes are identified within the thoracic spine. Increasedkyphosis. RAD/Chest PA and Lateral IMPRESSION: Mild residual increased markings at the lung base suggestive of mild atelectasis. No focal infiltrate is seen. Reading Location: [place] [address] CC: Dr. Shahab Adams DO; Dr. Shahab Warren DO ~ Couture Alterations Dressmaker: Signed [facility]04-22-2025 Progress note Author Shahab Warren [facility] Note Date/Time June 28, 2024 6:2 8pm [facility] Medical Records Department [address] [place] [address] Progress Note - Hospitalist 06/28/24 1822 MR#: [id number] Acct: [id number] Name: SAVANNAH AGUIRRE Rep #:[id number] : 1960 63 From: Shahab Warren DO PCP: Dr. Shahab Adams DO Status:ADM IN Location: [place] [address] Reason for Visit Reason for Visit: Diagnoses Pneumonia, unspecified organism (06/27/24) Subjective Subjective Patient was seen and examined today, she has no complaints of any shortness of breath at rest. Patient's oxygen requirement at rest is 2 L presently Objective Data Objective Data Vital Signs: Vital Signs Temp Pulse Resp BP Pulse Ox O2 Del Method O2 Flow Rate 97.6 F L 78 15 133/72 H 97 Nasal Cannula 2 06/28/24 17:03 06/28/24 17:03 06/28/24 17:03 06/28/24 17:03 06/28/24 17:03 06/28/24 17:35 06/28/24 17:35 Oxygen Flow Rate (L/min) 2 Oxygen Delivery Method Nasal Cannula Weight: 84.9 kg Body Mass Index (BMI) 33.1 Intake & Output: Intake and Output for Last 24 Hours 06/26/24 06/27/24 06/28/24 23:59 23:59 23:59 Intake Total 355 / 355 601.75 / 601.75 Output Total 300 / 300 150 / 150 Balance 55 / 55 451.75 / 451.75 Lab / Micro Data 06/28/24 07:05 06/28/24 07:05 Labs: Laboratory Results - last 24 hr 06/28/24 07:05: WBC 13.0 H, RBC 4.40, Hgb 13.3, Hct 39.5, MCV 89.8, MCH 30.2, MCHC 33.7, RDW Std Deviation 43.5, RDW Coeff of Hiro 13.2, Plt Count 264, MPV 10.0, Immature Gran % (Auto) 0.800, Neut % (Auto) 86.1 H, Lymph % (Auto) 9.2 L, [place] % (Auto) 3.5, Eos % (Auto) 0.0, Baso % (Auto) 0.4, Absolute Neuts (auto) 11.2 H, Absolute Lymphs (auto) 1.20, Nucleated RBC % 0, Sodium 138, Potassium 4.0, Chloride 99, Carbon Dioxide 25.2, Anion Gap 14, BUN 23 H, Creatinine 0.98, Estim Creat Clear Calc 59.09, Est GFR (MDRD) Non-Af 64, BUN/Creatinine Ratio 23.0 H, Glucose 185 H, Calcium 9.5, TSH 0.356 Micro: Microbiology 06/27/24 17:45 Mucosa - Nasopharyngeal Respiratory Panel (PCR) - Final 06/27/24 19:50 Urine, Random Legionella Antigen - Final 06/27/24 19:50 Urine, Random Streptococcus pneumoniae Antigen (M - Final 06/27/24 14:04 Mucosa - Nose SARS-CoV-2, Influenza & RSV (PCR) - Final Physical Exam Const alert, oriented x3, no apparent distress and healthy appearing General Appearance: cooperative, well kempt and well developed Orientation / Consciousness: awake, oriented to person, oriented to place and oriented to time HEENT normocephalic, head/scalp atraumatic and moist oral mucous membranes Eyes PERRL, EOMs intact bilaterally and conjunctivae normal Neck supple, no JVD, thyroid normal and no carotid bruits General: trachea midline Resp normal respiratory effort, no retractions, no use of accessory muscles and clearto auscultation bilaterally Auscultation: Negative for rales, rhonchi or wheezes Cardio regular rate, regular rhythm, S1 normal heart sound, S2 normal heart sound, no murmurs, no rub and no gallops GI normal to inspection, nondistended, normoactive bowel sounds, soft to palpation,non-tender and non-distended Extremity no clubbing, cyanosis or edema Skin no rashes or lesions noted General Skin Exam: no breakdown Neuro oriented x3, CN's II-XII intact bilaterally, moves all extremities, no focal motor deficits and no sensory deficits noted Sensorium / Orientation: awake and alert Speech: speech normal Psych affect normal Assessment & Plan Assessment/Plan (1) Left lower lobe pneumonia: PLAN: Plan 1. Left lower lobe pneumonia-continue IV Levaquin, I do not believe the patientrequires high-dose prednisone at this time, I have reduced her prednisone dosageto 10 mg daily-she had been on prednisone as an outpatient for RA and was on a taper. Patient is to remain on aerosol treatments at this time, urine for Legionella and strep pneumo antigen was negative, respiratory panel was unremarkable. Patient is not producing any significant sputum. #2 recent pulmonary embolism-patient is on Eliquis #3 rheumatoid arthritis-again patient was placed on lower dose prednisone, she will resume her home dose when she is discharged #4 hypothyroidism-patient is on Synthroid #5 hypoxia secondary to recent pulmonary embolism and community-acquired pneumonia-pulse ox will be monitored, oxygen will be weaned if possible Total clinical time spent by myself addressing the patient's medical issues, reviewing all of her data, and collaborating with patient's care team: 35 minutes Charges/Coding Visit Charges Inpatient E&M: 63049 Subs Hosp L2 06/28/241827 <Electronically signed by Shahab Warren DO> Cosigner Signature (if applicable): CC: ~ Signed [facility] Work Phone: 1(303) 813-240004-22-2025 Progress note [facility] Medical Records Department [address] [place] [address] Progress Note - Hospitalist 06/28/24 1822 MR#: [id number] Acct: [id number] Name: SAVANNAH AGUIRRE Rep #:[id number] : 1960 63 From: Shahab Warren DO PCP: Dr. Shahab Adams DO Status:ADM IN Location: [place] [id number] Reason for Visit Reason for Visit: Diagnoses Pneumonia, unspecified organism (06/27/24) Subjective Subjective Patient was seen and examined today, she has no complaints of any shortness of breath at rest. Patient's oxygen requirement at rest is 2 L presently Objective Data Objective Data Vital Signs: Vital Signs Temp Pulse Resp BP Pulse Ox O2 Del Method O2 Flow Rate 97.6 F L 78 15 133/72 H 97 Nasal Cannula 2 06/28/24 17:03 06/28/24 17:03 06/28/24 17:03 06/28/24 17:03 06/28/24 17:03 06/28/24 17:35 06/28/24 17:35 Oxygen Flow Rate (L/min) 2 Oxygen Delivery Method Nasal Cannula Weight: 84.9 kg Body Mass Index (BMI) 33.1 Intake & Output: Intake and Output for Last 24 Hours 06/26/24 06/27/24 06/28/24 23:59 23:59 23:59 Intake Total 355 / 355 601.75 / 601.75 Output Total 300 / 300 150 / 150 Balance 55 / 55 451.75 / 451.75 Lab / Micro Data 06/28/24 07:05 06/28/24 07:05 Labs: Laboratory Results - last 24 hr 06/28/24 07:05: WBC 13.0 H, RBC 4.40, Hgb 13.3, Hct 39.5, MCV 89.8, MCH 30.2, MCHC 33.7, RDW Std Deviation 43.5, RDW Coeff of Hiro 13.2, Plt Count 264, MPV 10.0, Immature Gran % (Auto) 0.800, Neut % (Auto) 86.1 H, Lymph % (Auto) 9.2 L, [place] % (Auto) 3.5, Eos % (Auto) 0.0, Baso % (Auto) 0.4, AbsoluteNeuts (auto) 11.2 H, Absolute Lymphs (auto) 1.20, Nucleated RBC % 0, Sodium 138, Potassium 4.0, Chloride 99, Carbon Dioxide 25.2, Anion Gap 14, BUN 23 H, Creatinine 0.98, Estim Creat Clear Calc 59.09, Est GFR (MDRD) Non-Af 64, BUN/Creatinine Ratio 23.0 H, Glucose 185 H, Calcium 9.5, TSH 0.356 Micro: Microbiology 06/27/24 17:45 Mucosa - Nasopharyngeal Respiratory Panel (PCR) - Final 06/27/24 19:50 Urine, Random Legionella Antigen - Final 06/27/24 19:50 Urine, Random Streptococcus pneumoniae Antigen (M - Final 06/27/24 14:04 Mucosa - Nose SARS-CoV-2, Influenza & RSV (PCR) - Final Physical Exam Const alert, oriented x3, no apparent distress and healthy appearing General Appearance: cooperative, well kempt and well developed Orientation / Consciousness: awake, oriented to person, oriented to place and oriented to time HEENT normocephalic, head/scalp atraumatic and moist oral mucous membranes Eyes PERRL, EOMs intact bilaterally and conjunctivae normal Neck supple, no JVD, thyroid normal and no carotid bruits General: trachea midline Resp normal respiratory effort, no retractions, no use of accessory muscles and clearto auscultation bilaterally Auscultation: Negative for rales, rhonchi or wheezes Cardio regular rate, regular rhythm, S1 normal heart sound, S2 normal heart sound, no murmurs, no rub and no gallops GI normal to inspection, nondistended, normoactive bowel sounds, soft to palpation,non-tender and non-distended Extremity no clubbing, cyanosis or edema Skin no rashes or lesions noted General Skin Exam: no breakdown Neuro oriented x3, CN's II-XII intact bilaterally, moves all extremities, no focal motor deficits and no sensory deficits noted Sensorium / Orientation: awake and alert Speech: speech normal Psych affect normal Assessment & Plan Assessment/Plan (1) Left lower lobe pneumonia: PLAN: Plan 1. Left lower lobe pneumonia-continue IV Levaquin, I do not believe the patientrequires high-dose prednisone at this time, I have reduced her prednisone dosageto 10 mg daily-she had been on prednisone as an outpatient for RA and was on a taper. Patient is to remain on aerosol treatments at this time, urine for Legionella and strep pneumo antigen was negative, respiratory panel was unremarkable. Patient is not producing any significant sputum. #2 recent pulmonary embolism-patient is on Eliquis #3 rheumatoid arthritis-again patient was placed on lower dose prednisone, she will resume her homedose when she is discharged #4 hypothyroidism-patient is on Synthroid #5 hypoxia secondary to recent pulmonary embolism and community-acquired pneumonia-pulse ox will bemonitored, oxygen will be weaned if possible Total clinical time spent by myself addressing the patient's medical issues, reviewing all of her data, and collaborating with patient's care team: 35 minutes Charges/Coding Visit Charges Inpatient E&M: 16244 Subs Hosp L2 06/28/24 9148 Cosigner Signature (if applicable): CC: ~ Signed [facility]04-21-2025 History and physical note Author Maria E Strickland [facility] Note Date/Time June 27, 2024 4:1 9pm [facility] Medical Records Department [address] [place] [address] H&P Exam - Hospitalist 06/27/24 1609 MR#: [id number] Acct: [id number] Name: SAVANNAH AGUIRRE Rep #:[id number] : 1960 63 From: Maria E Strickland MD PCP: Dr. Shahab Adams, DO Status:REG ER Location: ED HPI - General General Date of Admission: 06/27/24 Date of Service: 06/27/24 Chief Complaint: Increasing shortness of breath HPI Narrative SAVANNAH AGUIRRE, is a 63-year-old female with history of chronic pain, GERD, hypothyroidism, hypertension, RA who presented to [facility] ED 06/27/2024 due to increasing dyspnea since discharge on June 12. Patient had recent admission due to hypoxia which was suspected to be due to bilateral pulmonary emboli, she is at 5 L at the time of admission and at that time CTA showed bilateral lower lobe emboli with no significant heart strain and subsequent echo with EF of 60% with no heart strain, she was transitioned to [facility] and discharged home. Patient discharged home on 2 L of nasal cannula and in the ED was on 4 L to maintain sats of 90%. CBC shows white blood cell count of 17.5, the patient is on prednisone so unclear etiology, temp 99.2 with heart rate 107, blood pressure 157/75, respiratory rate 20 with pulse ox initially 91% on 4 L nasal cannula. Patient denies missing any doses of anticoagulation. COVID/flu/RSV negative. Chest x-ray queried early left lower lobe infiltrate. Given her increased shortness of breath and increased O2 requirement with suspected pneumonia hospitalist contacted for admission. Patient evaluated bedside. She reports that she has indeed had increasing shortness of breath over the past couple weeks with increased cough and chills, feels little bit better than she did when she first came in the ED but still feels unwell especially when she tries to get up and move around. Denies any swelling in the legs, no chest pain, is on prednisone through her rheumatologistand is being weaned, started at 15 and was weaned to 12 yesterday. [facility] Medical History Post-menopausal Depression Anxiety Thyroid disease Anemia Gastric reflux Non-smoker Leg cramps History of pain when walking Hypothyroid CKD (chronic kidney disease) Hypertension Infection of spinal cord stimulator Rheumatoid arthritis Chronic pain Arthritis Fibromyalgia Migraines Home Medications ?Medication ?Instructions ?Recorded ?Last Taken ?Type buprenorphine 20 mcg/hour weekly 1 patch transdermal Q WEEK PAIN 01/13/21 06/25/24 History transdermal patch (Butrans) hydrocodone-acetaminophen 5-325mg 1 tab PO Q6H PRN Jess n 01/13/21 06/27/24 History 5mg-325mg levothyroxine 88 mcg tablet 88 mcg PO DAILY 01/13/21 0 06/27/24 History (Synthroid) omeprazole 40 mg capsule,delayed 40 mg PO DAILY 06/27/24 History release potassium chloride 20 mEq 20 meq PO .COMPLEX SUPPLEMEN T 01/13/21 06/27/24 History tablet,extended release(part/cryst) triamterene 37.5 1 cap PO DAILY Check with pr imary 01/13/21 06/27/24 History mg-hydrochlorothiazide 25 mg doctor capsule gabapentin 400 mg capsule 400 mg PO TID PAIN 05/08/21 06/27/24 History cholecalciferol (vitamin D3) 125 125 mcg PO DAILY SUPP LEMENT 06/01/22 06/27/24 History mcg (5,000 unit) capsule albuterol sulfate 90 mcg/actuation 2 puff inhalation Q 4H PRN 10/22/22 06/27/24 History aerosol inhaler (ProAir HFA) shortness of breath or wh eezing magnesium 250 mg tablet 400 mg PO DINNER SUPPLEMENT 10/22/22 06/26/24 History PRIMAL DEFENCE 410 mg PO 1XD probiotic 08/2906/27/24 History metoprolol succinate 50 mg 50 mg PO QHS 11/13/2206/26 History tablet,extended release 24 hr allopurinol 300 mg tablet 300 mg PO DAILY 06/10/24 History colchicine 0.6 mg tablet 0.6 mg PO DAILY 06/10/24 Unk nown History adalimumab 40 mg/0.4 mL 40 mg subcut QWEEK 06/27/24 06/25/24 History subcutaneous pen kit (Humira(CF) Pen) apixaban 5 mg (74 tabs) tablets in 5 mg PO Q12H 06/27/24 History a dose pack (Eliquis DVT-PE Treat 30D Start) ferrous gluconate 324 mg (38 mg 324 mg PO DAILY 06/27/24 History iron) tablet prednisone 1 mg tablet 2 mg PO DAILY 06/27/2406/27 History prednisone 10 mg tablet 10 mg PO DAILY 06/27/2406/08 History sulfasalazine 500 mg tablet 500 mg PO BID 06/27/24 Unk nown History Allergy/AdvReac Type Severity Reaction Status Date / Time oxycodone Allergy Rash Verified 06/27/24 13:50 adhesive tape AdvReac Rash Verified 06/27/24 13:50 Family History Mother Hypertension Colon polyps Father Lymphoma Surgical History Hx of hysterectomy History of carpal tunnel release Hx of thyroidectomy Hx of cholecystectomy Hx of tonsillectomy Social History household members: none Smoking Status: Never smoker alcohol intake: never substance use type: does not use ROS ROS Narrative General: Has had some chills HENT: Denies headache, denies stuffy nose, denies sore throat EYES: Denies changes in vision Resp: Has been coughing and had increased shortness of breath Cardiac: Denies chest pain GI: Denies abdominal pain, denies changes in bowel, denies nausea/vomiting : Denies changes in urination Extremity: Denies swelling MSK: Denies weakness Neuro: Denies any numbness/tingling Heme: Denies any bleeding or bruising Skin: Denies rashes Psychiatric: No complaints voiced Vital Signs Vital Signs Vital Signs: 06/27/24 13:51 06/27/24 14:06 06/27/24 14:08 Temperature 99.2 F H 99.2 F H Temperature Source Oral Oral Pulse Rate 107 H 102 H Respiratory Rate 20 H 22 H Respiratory Effort Respiratory Depth Respiratory Pattern Blood Pressure 157/75 H 149/72 H Blood Pressure Mean 102 97 Pulse Ox 91 95 95 Oxygen Delivery Method Nasal Cannula Nasal Cannula Nasal Cannula Oxygen Flow Rate (L/min) 4 3 3 06/27/24 14:12 06/27/24 14:20 06/27/24 14:30 Temperature Temperature Source Pulse Rate 100 Respiratory Rate 25 H Respiratory Effort Short of Breath Respiratory Depth Deep Respiratory Pattern Tachypnea Normal Blood Pressure 119/56 L Blood Pressure Mean 75 Pulse Ox Oxygen Delivery Method Nasal Cannula Oxygen Flow Rate (L/min) 3 06/27/24 14:36 06/27/24 14:47 06/27/24 15:00 Temperature Temperature Source Pulse Rate 118 H 117 H Respiratory Rate 23 H 34 H Respiratory Effort Respiratory Depth Respiratory Pattern Blood Pressure Blood Pressure Mean Pulse Ox 94 93 94 Oxygen Delivery Method Nasal Cannula Nasal Cannula Oxygen Flow Rate (L/min) 3 3 06/27/24 16:00 Temperature 98.2 F Temperature Source Pulse Rate 110 H Respiratory Rate 23 H Respiratory Effort Respiratory Depth Respiratory Pattern Blood Pressure 144/74 H Blood Pressure Mean 97 Pulse Ox 96 Oxygen Delivery Method Oxygen Flow Rate (L/min) Weight Weight: 85.5 kg Body Mass Index (BMI) 33.3 Physical Exam Narrative General: Alert, oriented, no apparent distress HEENT: Atraumatic, normocephalic Eyes: Anicteric, normal conjunctiva, extraocular movements grossly intact Neck: Supple Respiratory: Increased respiratory effort, coarse bilaterally Cardiovascular: Sinus tachycardia GI: Soft, nontender, nondistended Extremities: No edema Musculoskeletal: Moving all extremities Neuro: No overt focal neurological deficits Skin: No rashes appreciated Psych: Cooperative Results Lab / Micro Data 06/27/24 14:04 06/27/24 14:04 Labs: Laboratory Results - last 24 hr 06/27/24 14:04: WBC 17.5 H, RBC 4.84, Hgb 14.7, Hct 43.3, MCV 89.5, MCH 30.4, MCHC 33.9, RDW Std Deviation 43.8, RDW Coeff of Hiro 13.4, Plt Count 304, MPV 10.0, Immature Gran % (Auto) 0.600, Neut % (Auto) 79.1 H, Lymph % (Auto) 5.9 L, [place] % (Auto) 6.2, Eos % (Auto) 7.8 H, Baso % (Auto) 0.4, Absolute Neuts (auto) 13.8 H, Absolute Lymphs (auto) 1.04, Nucleated RBC % 0, Sodium 136, Potassium 4.0, Chloride 96 L, Carbon Dioxide 28.0, Anion Gap 12, BUN 17, Creatinine 1.04, Estim Creat Clear Calc 55.88, Est GFR (MDRD) Non-Af 60, BUN/Creatinine Ratio 16.7, Glucose 197 H, Lactic Acid 1.6, Calcium 9.7, Total Bilirubin 0.70, AST 38 H, ALT 33, Alkaline Phosphatase 142 H, Total Protein 6.7, Albumin 3.5, Globulin 3.2, Albumin/Globulin Ratio 1.1 Micro: Microbiology 06/27/24 14:04 Mucosa - Nose SARS-CoV-2, Influenza & RSV (PCR) - Final ABG Data ABG results: ABG 06/27/24 14:42 Specimen Type ART Sample Site R Radial pH 7.47 H Bicarbonate Actual 29.0 H Total CO2 30 Base Excess 5 H O2 Saturation 93 L O2 % 3.0 ABG pCO2 39.8 ABG pO2 62 L Laury Test Positive O2 Delivery Device Cannula Vent Mode Not entered Imaging Radiology Impression Chest X-Ray 06/27/24 14:40 IMPRESSION: Increased markings in the posterior medial segment of the left lower lobe. Early infiltrate should be ruled out. Reading Location: [place] [address] Assessment & Plan Assessment/Plan (1) Left lower lobe pneumonia: PLAN: Plan # Left lower lobe pneumonia -Imaging: Chest x-ray query as early left lower lobe infiltrate, this does fit clinically for patient -DuoNebs and as needed albuterol -Sputum culture, COVID negative, respiratory panel ordered -Urine antigens -Mucinex, I/S - Will treat more broadly with Levaquin given patient's recent admission # Recent bilateral PEs - Continue Eliquis #GERD -Continue PPI #Hypothyroidism -Continue Synthroid #Hypertension - Will continue patient's home medications # Chronic pain -Continue patient's home regimen #Gout -Continue home allopurinol # History of RA - Patient on prednisone taper currently and was just decreased to 12 mg - She does have some scattered wheezes, will place on 40 for now, no history of COPD or asthma that I am aware of that necessitate IV steroids unless she continues to have wheezing and does not improve or is very slow to improve - Based on med list patient has not started the sulfasalazine yet #DVT ppx: Patient on full dose Farida Strickland MD Charges/Coding Visit Charges Inpatient E&M: 21612 Init Hosp L2 06/27/24 1619 <Electronically signed by Maria E Strickland MD> Cosigner Signature (if applicable): CC: Dr. Shahab Adams DO; Dr. Maria E Strickland MD~ Signed [facility] Work Phone: [phone] 525-600404-21-2025 Discharge summary Author Carlos Jiménez [facility] Note Date/Time June 27, 2024 3:5 9pm [facility] Medical Records Department [address] [place] [address] Emergency Department Summary 06/27/24 MR#: [id number] Acct: [id number] Name: SAVANNAH AGUIRRE Rep #:[id number] : 1960 63 From: Carlos Jiménez MD PCP: Dr. Shahab Adams DO Status:REG ER Location: ED HPI History of Present Illness Chief Complaint: Shortness of Breath Detail of Chief Complaint: Increasing dyspnea since discharge June 12 Informant: patient Onset/Context/Timing Onset: Weeks Context: gradual Timing: Continuous Quality: Positive for Dyspnea on exertion and Wheezing; Negative for Orthopnea or PND Current Severity: Moderate Maximum Severity: Severe Worsened by: Exertion and Coughing Relieved by: Nothing and Oxygen (Patient was discharged on 2 L by nasal cannula and is presently on 4 L to stay above 90%.) Associated Symptoms cough, rhinorrhea, post nasal drip and chills; Negative for ear pain, fever, sore throat, subjective or sweats Chest Pain: Positive for None Narrative Narrative: Patient is a 63-year-old woman who has no significant past medical history. Shewas recently admitted for hypoxemia. The hypoxemia was due to bilateral pulmonary embolus. She was placed on 5 L at time of admission. The CTA revealed bilateral lower lobe emboli with no significant heart strain. Echo wasperformed on June 08 showed a ejection fraction of 60%. There is no evidence ofheart strain or pulmonary hypertension. Patient was started on Lovenox twice daily and transition to Eliquis. She states she has not missed any of her doses. Patient doing patient apparently has history of hypertension per hospitalist note. As result. She did have elevated troponins with no EKG changes. She has mild kidney disease elevated creatinine between 1.2 and 1.3. BMI at the time of admission was 35. Review of prior records indicates she has hypothyroidism and is on Synthroid. Patient states she has not been out of the house. She has not been in contact with anyone that has been ill. She does endorse endorse chills. She does not believe she has had a fever. She does endorse mild nasal congestion. She denies headache, visual, ocular auditory symptoms. She does have a cough. She states she coughs when she becomes more short of breath. The cough is nonproductive. She denies chest discomfort, tightness heaviness pressure. She denies leg pain, swelling or discoloration. She denies orthopnea or PND. Patient denies abdominal pain, nausea, vomiting or diarrhea. Patient denies urologic symptoms. Patient does endorse bruising easily. PE Risk Factors: Positive for Prior DVT or PE; Negative for OCP + Smoking + > 35, Recent immobilization, Recent surgery or Recent travel Prior similar symptoms: Yes Recent Illness/Hospitalization: Yes PFSH PFS Medical History Post-menopausal Depression Anxiety Thyroid disease Anemia Gastric reflux Non-smoker Leg cramps History of pain when walking Hypothyroid CKD (chronic kidney disease) Hypertension Infection of spinal cord stimulator Rheumatoid arthritis Chronic pain Arthritis Fibromyalgia Migraines Home Medications ?Medication ?Instructions ?Recorded ?Last Taken ?Type buprenorphine 20 mcg/hour weekly 1 patch transdermal Q WEEK PAIN 01/13/21 06/25/24 History transdermal patch (Butrans) hydrocodone-acetaminophen 5-325mg 1 tab PO Q6H PRN Jess n 01/13/21 06/27/24 History 5mg-325mg levothyroxine 88 mcg tablet 88 mcg PO DAILY 01/13/21 0 06/27/24 History (Synthroid) omeprazole 40 mg capsule,delayed 40 mg PO DAILY 06/27/24 History release potassium chloride 20 mEq 20 meq PO .COMPLEX SUPPLEMEN T 01/13/21 06/27/24 History tablet,extended release(part/cryst) triamterene 37.5 1 cap PO DAILY Check with pr imary 01/13/21 06/27/24 History mg-hydrochlorothiazide 25 mg doctor capsule gabapentin 400 mg capsule 400 mg PO TID PAIN 05/08/21 06/27/24 History cholecalciferol (vitamin D3) 125 125 mcg PO DAILY SUPP LEMENT 06/01/22 06/27/24 History mcg (5,000 unit) capsule albuterol sulfate 90 mcg/actuation 2 puff inhalation Q 4H PRN 10/22/22 06/27/24 History aerosol inhaler (ProAir HFA) shortness of breath or wh eezing magnesium 250 mg tablet 400 mg PO DINNER SUPPLEMENT 10/22/22 06/26/24 History PRIMAL DEFENCE 410 mg PO 1XD probiotic 08/2906/27/24 History metoprolol succinate 50 mg 50 mg PO QHS 11/13/2206/26 History tablet,extended release 24 hr allopurinol 300 mg tablet 300 mg PO DAILY 06/10/24 History colchicine 0.6 mg tablet 0.6 mg PO DAILY 06/10/24 Unk nown History adalimumab 40 mg/0.4 mL 40 mg subcut QWEEK 06/27/24 06/25/24 History subcutaneous pen kit (Humira(CF) Pen) apixaban 5 mg (74 tabs) tablets in 5 mg PO Q12H 06/27/24 History a dose pack (Eliquis DVT-PE Treat 30D Start) ferrous gluconate 324 mg (38 mg 324 mg PO DAILY 06/27/24 History iron) tablet prednisone 1 mg tablet 2 mg PO DAILY 06/27/2406/27 History prednisone 10 mg tablet 10 mg PO DAILY 06/27/2406/08 History sulfasalazine 500 mg tablet 500 mg PO BID 06/27/24 Unk nown History Allergy/AdvReac Type Severity Reaction Status Date / Time oxycodone Allergy Rash Verified 06/27/24 13:50 adhesive tape AdvReac Rash Verified 06/27/24 13:50 Family History Mother Hypertension Colon polyps Father Lymphoma Surgical History Hx of hysterectomy History of carpal tunnel release Hx of thyroidectomy Hx of cholecystectomy Hx of tonsillectomy Social History household members: none Smoking Status: Never smoker alcohol intake: never substance use type: does not use ROS ROS ED Constitutional Constitutional ED: Reports chills; Denies fever(s), sweats or weight loss Eyes Eyes: Denies blurry vision, change in vision or diplopia ENT ENT ED: Reports rhinorrhea and sore throat; Denies ear pain Cardiovascular Cardiovascular: Denies chest pain, orthopnea, palpitations, paroxysmal nocturnaldyspnea or racing heartbeat Respiratory/Chest Respiratory/Chest: Reports cough, dyspnea and dyspnea on exertion; Denies orthopnea, paroxysmal nocturnal dyspnea or sputum Gastrointestinal Gastrointestinal: Denies abdominal pain, nausea or vomiting Genitourinary Genitourinary ED: Denies dysuria, hematuria or urinary frequency Musculoskeletal Musculoskeletal: Denies arthralgias or myalgias Integumentary Denies rash Neurologic Neurologic: Reports weakness; Denies headache(s) Endocrine Endocrinology: Denies cold intolerance or heat intolerance Hematologic/Lymphatic Hematologic/Lymphatic: Reports easy bruising; Denies easy bleeding EXAM Physical Exam Const Vital Signs: 06/27/24 13:51 06/27/24 14:06 06/27/24 14:08 Temperature 99.2 F H 99.2 F H Temperature Source Oral Oral Pulse Rate 107 H 102 H Respiratory Rate 20 H 22 H Respiratory Effort Respiratory Depth Respiratory Pattern Blood Pressure 157/75 H 149/72 H Blood Pressure Mean 102 97 Pulse Ox 91 95 95 Oxygen Delivery Method Nasal Cannula Nasal Cannula Nasal Cannula Oxygen Flow Rate (L/min) 4 3 3 06/27/24 14:12 06/27/24 14:20 06/27/24 14:30 Temperature Temperature Source Pulse Rate 100 Respiratory Rate 25 H Respiratory Effort Short of Breath Respiratory Depth Deep Respiratory Pattern Tachypnea Normal Blood Pressure 119/56 L Blood Pressure Mean 75 Pulse Ox Oxygen Delivery Method Nasal Cannula Oxygen Flow Rate (L/min) 3 06/27/24 14:36 06/27/24 14:47 06/27/24 15:00 Temperature Temperature Source Pulse Rate 118 H 117 H Respiratory Rate 23 H 34 H Respiratory Effort Respiratory Depth Respiratory Pattern Blood Pressure Blood Pressure Mean Pulse Ox 94 93 94 Oxygen Delivery Method Nasal Cannula Nasal Cannula Oxygen Flow Rate (L/min) 3 3 Positive well nourished and well developed Constitutional Narrative: BMI is 35. General Appearance ED: well developed; Negative for pallor HEENT Reports moist mucous membranes HEENT Narrative: Head is atraumatic normocephalic. Ears normal. Nares patent. Eyes PERRL and EOMs intact bilaterally General Eye ED: Negative for pale conjunctiva or scleral icterus Neck no lymphadenopathy, supple, no meningeal signs and no JVD Resp No normal respiratory effort and No clear to auscultation bilaterally Effort and Inspection: Negative for pain with movement Auscultation: rales bilateral lower and wheezes expiratory wheezes, scattered wheezes (In mid lung salmeron posteriorly) and lower bilaterally Cardio regular rhythm, S1 normal heart sound, S2 normal heart sound and no murmurs Rate: tachycardic GI non-tender, non-distended and no masses Auscultation: normoactive bowel sounds Back/Spine Back/Spine Narrative: Inspection of the back is mild for some mild erythema. The erythema blanches. There is no tenderness. Extremity Extremity Narrative: There is no asymmetry, swelling, discoloration, leg vein distention, palpable cords or tenderness along the distribution of the deep venous system. Neuro oriented x3 and CN's II-XII intact bilaterally [place] Coma Scale: document GCS findings Spontaneous Obeys Commands Oriented 15 Sensorium / Orientation: alert Psych mental status grossly normal Skin no wounds and skin turgor normal General Skin Exam: Negative for jaundice or pallor Sepsis Attestation Date exam was performed: 06/27/24 Time exam was performed: 15:37 Possible Source of Sepsis: Pulmonary Fluid Resuscitation Fluid Resuscitation ordered: Fluids not indicated MDM MDM MDM Narrative Medical decision making narrative: Differential diagnosis is pneumonia, upper respiratory infection with bronchospasm, failed outpatient treatment of pulmonary embolus. Doubt congestive heart failure in light of recent echo with EF of 60%. Doubt cardiac ischemia. Since patient's troponins were elevated when she was diagnosed with PE will obtain a troponin and if markedly elevated would increase possibility ofcardiac ischemia versus pulmonary embolus. Because patient is wheezing and is on inhalers she was to with albuterol here. She is post on prednisone. If her breathing improves will consider administering higher dose of prednisone. CBC was obtained since white count differential. Patient's presentation is not consistent with pneumothorax. Presentation is notconsistent with aortic dissection either. History & Record Review Additional record(s) reviewed:: Prior inpatient record (Recent admission was reviewed as well as discharge summary.), Prior ED visit and Prior labs Lab Data Attestation: I reviewed the patient's lab results. Lab results narrative: White count is elevated with a slight shift. This may be due to stress, the fact that she is on 50 mg of prednisone or infectious. Comprehensive metabolic panel is remarkable for elevated glucose of 197 with normal CO2 anion gap and elevated alkaline phosphatase. The elevated alkaline phosphatase is new compared to prior. Labs: Laboratory Results - last 24 hr 06/27/24 14:04 WBC 17.5 H RBC 4.84 Hgb 14.7 Hct 43.3 MCV 89.5 MCH 30.4 MCHC 33.9 RDW Std Deviation 43.8 RDW Coeff of Hiro 13.4 Plt Count 304 MPV 10.0 Immature Gran % (Auto) 0.600 Neut % (Auto) 79.1 H Lymph % (Auto) 5.9 L [place] % (Auto) 6.2 Eos % (Auto) 7.8 H Baso % (Auto) 0.4 Absolute Neuts (auto) 13.8 H Absolute Lymphs (auto) 1.04 Nucleated RBC % 0 Sodium 136 Potassium 4.0 Chloride 96 L Carbon Dioxide 28.0 Anion Gap 12 BUN 17 Creatinine 1.04 Estim Creat Clear Calc 55.88 Est GFR (MDRD) Non-Af 60 BUN/Creatinine Ratio 16.7 Glucose 197 H Lactic Acid 1.6 Calcium 9.7 Total Bilirubin 0.70 AST 38 H ALT 33 Alkaline Phosphatase 142 H Total Protein 6.7 Albumin 3.5 Globulin 3.2 Albumin/Globulin Ratio 1.1 ABG Data Attestation: I personally reviewed and interpreted this ABG as follows: Interpretation: pH is 7.47 with a bicarb of 29 and total CO2 of 30. Base excess is +5 with a 93% saturation which correlated with the pulse ox. PO2 is 62 with a PCO2 of 39.8. This reveals a alkalosis and is predominantly metabolic. This also indicates an increased AA gradient. ABG results: ABG 06/27/24 14:42 Specimen Type ART Sample Site R Radial pH 7.47 H Bicarbonate Actual 29.0 H Total CO2 30 Base Excess 5 H O2 Saturation 93 L O2 % 3.0 ABG pCO2 39.8 ABG pO2 62 L Laury Test Positive O2 Delivery Device Cannula Vent Mode Not entered Radiography Chest X-Ray - ED: 2 View and Read by ED Physician (There is increased interstitial markings noted left lower lung field. The cardiac size is unremarkable. Cardiac silhouette is not obscured. There is no effusion. Mediastinum is unremarkable. Osseous structures there are no acute process. The chest x-ray obtained today was compared to June 10.) Diagnostic Testing: Clinical Impression(s) from Imaging Studies Chest X-Ray 06/27/24 14:40 IMPRESSION: Increased markings in the posterior medial segment of the left lower lobe. Early infiltrate should be ruled out. Reading Location: [place] [address] EKG Initial EKG: Attestation: I personally reviewed and interpreted this EKG as follows: Interpretation: Sinus Tachycardia (Rate is 103. OK interval is 172 ms. QRS duration 82 ms. QT duration 2034 ms. [place] is normal. There is nonseptic changes noted. Will need old EKG for comparison) Management Discussion w/another healthcare provider: Hospitalist (Case was discussed with hospitalist Dr. Maria E Strickland. Because of patient's marked tachycardia tachypneadesaturation with minimal walking she was a full admit to PCU.) Treatment and Re-Evaluation :: Patient desaturated with ambulation to 85%. Heart rate went to 140 and she was breathing greater than 30 times a minute. Nurse stated she did not look well. Since patient is tachycardic tachypneic has a source and there is an infiltrate in my opinion and clinically she probably has a right lower lobe pneumonia as well will obtain blood cultures prior to administration of Rocephin and azithromycin. Blood cultures and antibiotics were not started initially since Iwas waiting for the rapid antigen for COVID, RSV and influenza. Since those arenegative we will treat for bacterial infection. Discharge Plan Dx/Rx/DC Orders Clinical Impression: Left lower lobe pneumonia, Pulmonary embolus, Acute bronchospasm, Acute on chronic hypoxic respiratory failure, Sinus tachycardia, SIRS (systemic inflammatory response syndrome), Elevated blood-pressure reading without diagnosis of hypertension, History of hypothyroidism, Anticoagulant long-term use Disposition Disposition: Acute Care Hospital [facility] What to do if you have Problems For any increased pain, shortness of breath, bleeding, nausea or vomiting, chestpain, or any unexpected problems, contact your Primary Care Provider. Call [facility] ([phone]) or report to the closest Emergency Room. Call 911 if necessary. 06/27/24 1550 <Electronically signed by Carlos Jiménez MD> Cosigner Signature (if applicable): CC: Dr. Shahab Adams, DO ~ Signed [facility] Work Phone: [phone] 845-102204-21-2025 History and physical note [facility] Medical Records Department [address] [place] [address] H&P Exam - Hospitalist 06/27/24 1609 MR#: [id number] Acct: [id number] Name: SAVANNAH AGUIRRE Rep #:[id number] : 1960 63 From: Maria E Strickland MD PCP: Dr. Shahab Adams, Status:REG ER Location: ED HPI - General General Date of Admission: 06/27/24 Date of Service: 06/27/24 Chief Complaint: Increasing shortness of breath HPI Narrative SAVANNAH AGUIRRE, is a 63-year-old female with history of chronic pain, GERD, hypothyroidism, hypertension, RA who presented to [facility] ED 06/27/2024 due to increasing dyspnea since discharge on June 12. Patient had recent admission due to hypoxia which was suspected to be due to bilateral pulmonary emboli, she is at 5 L at the time of admission and at that time CTA showed bilaterallower lobe emboli with no significant heart strain and subsequent echo with EF of 60% with no heartstrain, she was transitioned to [facility] and discharged home. Patient discharged home on 2 L of nasal cannula and in the ED was on 4 L to maintain sats of 90%. CBC shows white blood cell count of 17.5, the patient is on prednisone so unclear etiology, temp 99.2 with heart rate 107, blood pressure 157/75, respiratory rate 20 with pulse ox initially 91% on 4 L nasal cannula. Patient denies missing any doses of anticoagulation. COVID/flu/RSV negative. Chest x-ray queried early left lower lobe infiltrate. Given her increased shortness of breath and increased O2 requirement with suspected pneumoniahospitalist contacted for admission. Patient evaluated bedside. She reports that she has indeed hadincreasing shortness of breath over the past couple weeks with increased cough and chills, feels little bit better than she did when she first came in the ED but still feels unwell especially when she tries to get up and move around. Denies any swelling in the legs, no chest pain, is on prednisone through her rheumatologistand is being weaned, started at 15 and was weaned to 12 yesterday. [facility] Medical History Post-menopausal Depression Anxiety Thyroid disease Anemia Gastric reflux Non-smoker Leg cramps History of pain when walking Hypothyroid CKD (chronic kidney disease) Hypertension Infection of spinal cord stimulator Rheumatoid arthritis Chronic pain Arthritis Fibromyalgia Migraines Home Medications ?Medication ?Instructions ?Recorded ?Last Taken ?Type buprenorphine 20 mcg/hour weekly 1 patch transdermal Q WEEK PAIN 01/13/21 06/25/24 History transdermal patch (Butrans) hydrocodone-acetaminophen 5-325mg 1 tab PO Q6H PRN Jess n 01/13/21 06/27/24 History 5mg-325mg levothyroxine 88 mcg tablet 88 mcg PO DAILY 01/13/21 0 06/27/24 History (Synthroid) omeprazole 40 mg capsule,delayed 40 mg PO DAILY 06/27/24 History release potassium chloride 20 mEq 20 meq PO .COMPLEX SUPPLEMEN T 01/13/21 06/27/24 History tablet,extended release(part/cryst) triamterene 37.5 1 cap PO DAILY Check with pr imary 01/13/21 06/27/24 History mg-hydrochlorothiazide 25 mg doctor capsule gabapentin 400 mg capsule 400 mg PO TID PAIN 05/08/21 06/27/24 History cholecalciferol (vitamin D3) 125 125 mcg PO DAILY SUPP LEMENT 06/01/22 06/27/24 History mcg (5,000 unit) capsule albuterol sulfate 90 mcg/actuation 2 puff inhalation Q 4H PRN 10/22/22 06/27/24 History aerosol inhaler (ProAir HFA) shortness of breath or wh eezing magnesium 250 mg tablet 400 mg PO DINNER SUPPLEMENT 10/22/22 06/26/24 History PRIMAL DEFENCE 410 mg PO 1XD probiotic 08/2906/27/24 History metoprolol succinate 50 mg 50 mg PO QHS 11/13/2206/26 History tablet,extended release 24 hr allopurinol 300 mg tablet 300 mg PO DAILY 06/10/24 History colchicine 0.6 mg tablet 0.6 mg PO DAILY 06/10/24 Unk nown History adalimumab 40 mg/0.4 mL 40 mg subcut QWEEK 06/27/24 06/25/24 History subcutaneous pen kit (Humira(CF) Pen) apixaban 5 mg (74 tabs) tablets in 5 mg PO Q12H 06/27/24 History a dose pack (Eliquis DVT-PE Treat 30D Start) ferrous gluconate 324 mg (38 mg 324 mg PO DAILY 06/27/24 History iron) tablet prednisone 1 mg tablet 2 mg PO DAILY 06/27/2406/27 History prednisone 10 mg tablet 10 mg PO DAILY 06/27/2406/08 History sulfasalazine 500 mg tablet 500 mg PO BID 06/27/24 Unk nown History Allergy/AdvReac Type Severity Reaction Status Date / Time oxycodone Allergy Rash Verified 06/27/24 13:50 adhesive tape AdvReac Rash Verified 06/27/24 13:50 Family History Mother Hypertension Colon polyps Father Lymphoma Surgical History Hx of hysterectomy History of carpal tunnel release Hx of thyroidectomy Hx of cholecystectomy Hx of tonsillectomy Social History household members: none Smoking Status: Never smoker alcohol intake: never substance use type: does not use ROS ROS Narrative General: Has had some chills HENT: Denies headache, denies stuffy nose, denies sore throat EYES: Denies changes in vision Resp: Has been coughing and had increased shortness of breath Cardiac: Denies chest pain GI: Denies abdominal pain, denies changes in bowel, denies nausea/vomiting : Denies changes in urination Extremity: Denies swelling MSK: Denies weakness Neuro: Denies any numbness/tingling Heme: Denies any bleeding or bruising Skin: Denies rashes Psychiatric: No complaints voiced Vital Signs Vital Signs Vital Signs: 06/27/24 13:51 06/27/24 14:06 06/27/24 14:08 Temperature 99.2 F H 99.2 F H Temperature Source Oral Oral Pulse Rate 107 H 102 H Respiratory Rate 20 H 22 H Respiratory Effort Respiratory Depth Respiratory Pattern Blood Pressure 157/75 H 149/72 H Blood Pressure Mean 102 97 Pulse Ox 91 95 95 Oxygen Delivery Method Nasal Cannula Nasal Cannula Nasal Cannula Oxygen Flow Rate (L/min) 4 3 3 06/27/24 14:12 06/27/24 14:20 06/27/24 14:30 Temperature Temperature Source Pulse Rate 100 Respiratory Rate 25 H Respiratory Effort Short of Breath Respiratory Depth Deep Respiratory Pattern Tachypnea Normal Blood Pressure 119/56 L Blood Pressure Mean 75 Pulse Ox Oxygen Delivery Method Nasal Cannula Oxygen Flow Rate (L/min) 3 06/27/24 14:36 06/27/24 14:47 06/27/24 15:00 Temperature Temperature Source Pulse Rate 118 H 117 H Respiratory Rate 23 H 34 H Respiratory Effort Respiratory Depth Respiratory Pattern Blood Pressure Blood Pressure Mean Pulse Ox 94 93 94 Oxygen Delivery Method Nasal Cannula Nasal Cannula Oxygen Flow Rate (L/min) 3 3 06/27/24 16:00 Temperature 98.2 F Temperature Source Pulse Rate 110 H Respiratory Rate 23 H Respiratory Effort Respiratory Depth Respiratory Pattern Blood Pressure 144/74 H Blood Pressure Mean 97 Pulse Ox 96 Oxygen Delivery Method Oxygen Flow Rate (L/min) Weight Weight: 85.5 kg Body Mass Index (BMI) 33.3 Physical Exam Narrative General: Alert, oriented, no apparent distress HEENT: Atraumatic, normocephalic Eyes: Anicteric, normal conjunctiva, extraocular movements grossly intact Neck: Supple Respiratory: Increased respiratory effort, coarse bilaterally Cardiovascular: Sinus tachycardia GI: Soft, nontender, nondistended Extremities: No edema Musculoskeletal: Moving all extremities Neuro: No overt focal neurological deficits Skin: No rashes appreciated Psych: Cooperative Results Lab / Micro Data 06/27/24 14:04 06/27/24 14:04 Labs: Laboratory Results - last 24 hr 06/27/24 14:04: WBC 17.5 H, RBC 4.84, Hgb 14.7, Hct 43.3, MCV 89.5, MCH 30.4, MCHC 33.9, RDW Std Deviation 43.8, RDW Coeff of Hiro 13.4, Plt Count 304, MPV 10.0, Immature Gran % (Auto) 0.600, Neut % (Auto) 79.1 H, Lymph % (Auto) 5.9 L, Socorro % (Auto) 6.2, Eos % (Auto) 7.8 H, Baso % (Auto) 0.4, Absolute Neuts (auto) 13.8 H, Absolute Lymphs (auto) 1.04, Nucleated RBC % 0, Sodium 136, Potassium 4.0, Chloride 96 L, Carbon Dioxide 28.0, Anion Gap 12, BUN 17, Creatinine 1.04, Estim Creat Clear Calc 55.88, Est GFR (MDRD) Non-Af 60, BUN/Creatinine Ratio 16.7, Glucose 197 H, Lactic Acid 1.6, Calcium 9.7, Total Bilirubin 0.70, AST 38 H, ALT 33, Alkaline Phosphatase 142 H, Total Protein 6.7, Albumin 3.5, Globulin 3.2, Albumin/Globulin Ratio 1.1 Micro: Microbiology 06/27/24 14:04 Mucosa - Nose SARS-CoV-2, Influenza & RSV (PCR) - Final ABG Data ABG results: ABG 06/27/24 14:42 Specimen Type ART Sample Site R Radial pH 7.47 H Bicarbonate Actual 29.0 H Total CO2 30 Base Excess 5 H O2 Saturation 93 L O2 % 3.0 ABG pCO2 39.8 ABG pO2 62 L Laury Test Positive O2 Delivery Device Cannula Vent Mode Not entered Imaging Radiology Impression Chest X-Ray 06/27/24 14:40 IMPRESSION: Increased markings in the posterior medial segment of the left lower lobe. Early infiltrate should be ruled out. Reading Location: [facility] Assessment & Plan Assessment/Plan (1) Left lower lobe pneumonia: PLAN: Plan # Left lower lobe pneumonia -Imaging: Chest x-ray query as early left lower lobe infiltrate, this does fit clinically for patient -DuoNebs and as needed albuterol -Sputum culture, COVID negative, respiratory panel ordered -Urine antigens -Mucinex, I/S - Will treat more broadly with Levaquin given patient's recent admission # Recent bilateral PEs - Continue Eliquis #GERD -Continue PPI #Hypothyroidism -Continue Synthroid #Hypertension - Will continue patient's home medications # Chronic pain -Continue patient's home regimen #Gout -Continue home allopurinol # History of RA - Patient on prednisone taper currently and was just decreased to 12 mg - She does have some scattered wheezes, will place on 40 for now, no history of COPD or asthma thatI am aware of that necessitate IV steroids unless she continues to have wheezing and does not improve or is very slow to improve - Based on med list patient has not started the sulfasalazine yet #DVT ppx: Patient on full dose Belindaquis Maria E Strickland MD Charges/Coding Visit Charges Inpatient E&M: 58364 Init Hosp L2 06/27/24 161 Cosigner Signature (if applicable): CC: Dr. Shahab Adams DO; Dr. Maria E Strickland MD~ Signed [facility]04-21-2025 Discharge summary [facility] Medical Records Department [address] [place] [address] Emergency Department Summary 06/27/24 MR#: [id number] Acct: [id number] Name: SAVANNAH AGUIRRE Rep #:[id number] : 1960 63 From: Carlos Jiménez MD PCP: Dr. Shahab Adams DO Status:REG ER Location: ED HPI History of Present Illness Chief Complaint: Shortness of Breath Detail of Chief Complaint: Increasing dyspnea since discharge June 12 Informant: patient Onset/Context/Timing Onset: Weeks Context: gradual Timing: Continuous Quality: Positive for Dyspnea on exertion and Wheezing; Negative for Orthopnea or PND Current Severity: Moderate Maximum Severity: Severe Worsened by: Exertion and Coughing Relieved by: Nothing and Oxygen (Patient was discharged on 2 L by nasal cannula and is presently on4 L to stay above 90%.) Associated Symptoms cough, rhinorrhea, post nasal drip and chills; Negative for ear pain, fever, sore throat, subjective or sweats Chest Pain: Positive for None Narrative Narrative: Patient is a 63-year-old woman who has no significant past medical history. Shewas recently admitted for hypoxemia. The hypoxemia was due to bilateral pulmonary embolus. She was placed on 5 L at timeof admission. The CTA revealed bilateral lower lobe emboli with no significant heart strain. Echo wasperformed on June 08 showed a ejection fraction of 60%. There is no evidence ofheart strain or pulmonary hypertension. Patient was started on Lovenox twice daily and transition to Eliquis. She states she has not missed any of her doses. Patient doing patient apparently has history of hypertension per hospitalist note. As result. She did have elevated troponins with no EKG changes. She has mild kidney disease elevated creatinine between 1.2 and 1.3. BMI at the time of admission was 35. Review of prior records indicates she has hypothyroidism and is on Synthroid. Patient states she has not been out of the house. She has not been in contact with anyone that has been ill. She does endorse endorse chills. She does not believe she has had a fever. She does endorse mild nasal congestion. She denies headache, visual, ocular auditory symptoms. She does have a cough. She states she coughs when she becomes more short of breath. The cough is nonproductive. She denies chest discomfort, tightness heaviness pressure. She denies leg pain, swelling or discoloration. She denies orthopnea or PND. Patient denies abdominal pain, nausea, vomiting or diarrhea. Patient denies urologic symptoms. Patient does endorse bruising easily. PE Risk Factors: Positive for Prior DVT or PE; Negative for OCP + Smoking + > 35, Recent immobilization, Recent surgery or Recent travel Prior similar symptoms: Yes Recent Illness/Hospitalization: Yes PFSH PFS Medical History Post-menopausal Depression Anxiety Thyroid disease Anemia Gastric reflux Non-smoker Leg cramps History of pain when walking Hypothyroid CKD (chronic kidney disease) Hypertension Infection of spinal cord stimulator Rheumatoid arthritis Chronic pain Arthritis Fibromyalgia Migraines Home Medications ?Medication ?Instructions ?Recorded ?Last Taken ?Type buprenorphine 20 mcg/hour weekly 1 patch transdermal Q WEEK PAIN 01/13/21 06/25/24 History transdermal patch (Butrans) hydrocodone-acetaminophen 5-325mg 1 tab PO Q6H PRN Jess n 01/13/21 06/27/24 History 5mg-325mg levothyroxine 88 mcg tablet 88 mcg PO DAILY 01/13/21 0 06/27/24 History (Synthroid) omeprazole 40 mg capsule,delayed 40 mg PO DAILY 06/27/24 History release potassium chloride 20 mEq 20 meq PO .COMPLEX SUPPLEMEN T 01/13/21 06/27/24 History tablet,extended release(part/cryst) triamterene 37.5 1 cap PO DAILY Check with pr imary 01/13/21 06/27/24 History mg-hydrochlorothiazide 25 mg doctor capsule gabapentin 400 mg capsule 400 mg PO TID PAIN 05/08/21 06/27/24 History cholecalciferol (vitamin D3) 125 125 mcg PO DAILY SUPP LEMENT 06/01/22 06/27/24 History mcg (5,000 unit) capsule albuterol sulfate 90 mcg/actuation 2 puff inhalation Q 4H PRN 10/22/22 06/27/24 History aerosol inhaler (ProAir HFA) shortness of breath or wh eezing magnesium 250 mg tablet 400 mg PO DINNER SUPPLEMENT 10/22/22 06/26/24 History PRIMAL DEFENCE 410 mg PO 1XD probiotic 09/08/2906/27/24 History metoprolol succinate 50 mg 50 mg PO QHS 11/13/2206/26 History tablet,extended release 24 hr allopurinol 300 mg tablet 300 mg PO DAILY 06/10/24 History colchicine 0.6 mg tablet 0.6 mg PO DAILY 06/10/24 Unk nown History adalimumab 40 mg/0.4 mL 40 mg subcut QWEEK 06/27/24 06/25/24 History subcutaneous pen kit (Humira(CF) Pen) apixaban 5 mg (74 tabs) tablets in 5 mg PO Q12H 06/27/24 History a dose pack (Eliquis DVT-PE Treat 30D Start) ferrous gluconate 324 mg (38 mg 324 mg PO DAILY 06/27/24 History iron) tablet prednisone 1 mg tablet 2 mg PO DAILY 06/27/2406/27 History prednisone 10 mg tablet 10 mg PO DAILY 06/27/24/04/02 History sulfasalazine 500 mg tablet 500 mg PO BID 06/27/24 Unk nown History Allergy/AdvReac Type Severity Reaction Status Date / Time oxycodone Allergy Rash Verified 06/27/24 13:50 adhesive tape AdvReac Rash Verified 06/27/24 13:50 Family History Mother Hypertension Colon polyps Father Lymphoma Surgical History Hx of hysterectomy History of carpal tunnel release Hx of thyroidectomy Hx of cholecystectomy Hx of tonsillectomy Social History household members: none Smoking Status: Never smoker alcohol intake: never substance use type: does not use ROS ROS ED Constitutional Constitutional ED: Reports chills; Denies fever(s), sweats or weight loss Eyes Eyes: Denies blurry vision, change in vision or diplopia ENT ENT ED: Reports rhinorrhea and sore throat; Denies ear pain Cardiovascular Cardiovascular: Denies chest pain, orthopnea, palpitations, paroxysmal nocturnaldyspnea or racing heartbeat Respiratory/Chest Respiratory/Chest: Reports cough, dyspnea and dyspnea on exertion; Denies orthopnea, paroxysmal nocturnal dyspnea or sputum Gastrointestinal Gastrointestinal: Denies abdominal pain, nausea or vomiting Genitourinary Genitourinary ED: Denies dysuria, hematuria or urinary frequency Musculoskeletal Musculoskeletal: Denies arthralgias or myalgias Integumentary Denies rash Neurologic Neurologic: Reports weakness; Denies headache(s) Endocrine Endocrinology: Denies cold intolerance or heat intolerance Hematologic/Lymphatic Hematologic/Lymphatic: Reports easy bruising; Denies easy bleeding EXAM Physical Exam Const Vital Signs: 06/27/24 13:51 06/27/24 14:06 06/27/24 14:08 Temperature 99.2 F H 99.2 F H Temperature Source Oral Oral Pulse Rate 107 H 102 H Respiratory Rate 20 H 22 H Respiratory Effort Respiratory Depth Respiratory Pattern Blood Pressure 157/75 H 149/72 H Blood Pressure Mean 102 97 Pulse Ox 91 95 95 Oxygen Delivery Method Nasal Cannula Nasal Cannula Nasal Cannula Oxygen Flow Rate (L/min) 4 3 3 06/27/24 14:12 06/27/24 14:20 06/27/24 14:30 Temperature Temperature Source Pulse Rate 100 Respiratory Rate 25 H Respiratory Effort Short of Breath Respiratory Depth Deep Respiratory Pattern Tachypnea Normal Blood Pressure 119/56 L Blood Pressure Mean 75 Pulse Ox Oxygen Delivery Method Nasal Cannula Oxygen Flow Rate (L/min) 3 06/27/24 14:36 06/27/24 14:47 06/27/24 15:00 Temperature Temperature Source Pulse Rate 118 H 117 H Respiratory Rate 23 H 34 H Respiratory Effort Respiratory Depth Respiratory Pattern Blood Pressure Blood Pressure Mean Pulse Ox 94 93 94 Oxygen Delivery Method Nasal Cannula Nasal Cannula Oxygen Flow Rate (L/min) 3 3 Positive well nourished and well developed Constitutional Narrative: BMI is 35. General Appearance ED: well developed; Negative for pallor HEENT Reports moist mucous membranes HEENT Narrative: Head is atraumatic normocephalic. Ears normal. Nares patent. Eyes PERRL and EOMs intact bilaterally General Eye ED: Negative for pale conjunctiva or scleral icterus Neck no lymphadenopathy, supple, no meningeal signs and no JVD Resp No normal respiratory effort and No clear to auscultation bilaterally Effort and Inspection: Negative for pain with movement Auscultation: rales bilateral lower and wheezes expiratory wheezes, scattered wheezes (In mid lung salmeron posteriorly) and lower bilaterally Cardio regular rhythm, S1 normal heart sound, S2 normal heart sound and no murmurs Rate: tachycardic GI non-tender, non-distended and no masses Auscultation: normoactive bowel sounds Back/Spine Back/Spine Narrative: Inspection of the back is mild for some mild erythema. The erythema blanches. There is no tenderness. Extremity Extremity Narrative: There is no asymmetry, swelling, discoloration, leg vein distention, palpable cords or tenderness along the distribution of the deep venous system. Neuro oriented x3 and CN's II-XII intact bilaterally Yulisa Coma Scale: document GCS findings Spontaneous Obeys Commands Oriented 15 Sensorium / Orientation: alert Psych mental status grossly normal Skin no wounds and skin turgor normal General Skin Exam: Negative for jaundice or pallor Sepsis Attestation Date exam was performed: 06/27/24 Time exam was performed: 15:37 Possible Source of Sepsis: Pulmonary Fluid Resuscitation Fluid Resuscitation ordered: Fluids not indicated MDM MDM MDM Narrative Medical decision making narrative: Differential diagnosis is pneumonia, upper respiratory infection with bronchospasm, failed outpatient treatment of pulmonary embolus. Doubt congestive heart failure in light of recent echo with EF of60%. Doubt cardiac ischemia. Since patient's troponins were elevated when she was diagnosed with PEwill obtain a troponin and if markedly elevated would increase possibility ofcardiac ischemia versus pulmonary embolus. Because patient is wheezing and is on inhalers she was to with albuterol here. She is post on prednisone. If her breathing improves will consider administering higher dose of prednisone. CBC was obtained since white count differential. Patient's presentation is not consistent with pneumothorax. Presentation is notconsistent with aortic dissection either. History & Record Review Additional record(s) reviewed:: Prior inpatient record (Recent admission was reviewed as well as discharge summary.), Prior ED visit and Prior labs Lab Data Attestation: I reviewed the patient's lab results. Lab results narrative: White count is elevated with a slight shift. This may be due to stress, the fact that she is on 50 mg of prednisone or infectious. Comprehensive metabolic panel is remarkable for elevated glucose of 197 with normal CO2 anion gap and elevated alkaline phosphatase. The elevated alkaline phosphatase is new compared to prior. Labs: Laboratory Results - last 24 hr 06/27/24 14:04 WBC 17.5 H RBC 4.84 Hgb 14.7 Hct 43.3 MCV 89.5 MCH 30.4 MCHC 33.9 RDW Std Deviation 43.8 RDW Coeff of Hiro 13.4 Plt Count 304 MPV 10.0 Immature Gran % (Auto) 0.600 Neut % (Auto) 79.1 H Lymph % (Auto) 5.9 L Socorro % (Auto) 6.2 Eos % (Auto) 7.8 H Baso % (Auto) 0.4 Absolute Neuts (auto) 13.8 H Absolute Lymphs (auto) 1.04 Nucleated RBC % 0 Sodium 136 Potassium 4.0 Chloride 96 L Carbon Dioxide 28.0 Anion Gap 12 BUN 17 Creatinine 1.04 Estim Creat Clear Calc 55.88 Est GFR (MDRD) Non-Af 60 BUN/Creatinine Ratio 16.7 Glucose 197 H Lactic Acid 1.6 Calcium 9.7 Total Bilirubin 0.70 AST 38 H ALT 33 Alkaline Phosphatase 142 H Total Protein 6.7 Albumin 3.5 Globulin 3.2 Albumin/Globulin Ratio 1.1 ABG Data Attestation: I personally reviewed and interpreted this ABG as follows: Interpretation: pH is 7.47 with a bicarb of 29 and total CO2 of 30. Base excess is +5 with a 93% saturation which correlated with the pulse ox. PO2 is 62 with a PCO2 of 39.8. This reveals a alkalosis and is predominantly metabolic. This also indicates an increased AA gradient. ABG results: ABG 06/27/24 14:42 Specimen Type ART Sample Site R Radial pH 7.47 H Bicarbonate Actual 29.0 H Total CO2 30 Base Excess 5 H O2 Saturation 93 L O2 % 3.0 ABG pCO2 39.8 ABG pO2 62 L Laury Test Positive O2 Delivery Device Cannula Vent Mode Not entered Radiography Chest X-Ray - ED: 2 View and Read by ED Physician (There is increased interstitial markings noted left lower lung field. The cardiac size is unremarkable. Cardiac silhouette is not obscured. There isno effusion. Mediastinum is unremarkable. Osseous structures there are no acute process. The chest x-ray obtained today was compared to June 10.) Diagnostic Testing: Clinical Impression(s) from Imaging Studies Chest X-Ray 06/27/24 14:40 IMPRESSION: Increased markings in the posterior medial segment of the left lower lobe. Early infiltrate should be ruled out. Reading Location: [place] [address] EKG Initial EKG: Attestation: I personally reviewed and interpreted this EKG as follows: Interpretation: Sinus Tachycardia (Rate is 103. OK interval is 172 ms. QRS duration 82 ms. QT duration 2034 ms. [place]rington is normal. There is nonseptic changes noted. Will need old EKG for comparison) Management Discussion w/another healthcare provider: Hospitalist (Case was discussed with hospitalist Dr. Maria E Strickland. Because of patient's marked tachycardia tachypneadesaturation with minimal walking she wasa full admit to PCU.) Treatment and Re-Evaluation :: Patient desaturated with ambulation to 85%. Heart rate went to 140 and she was breathing greater than 30 times a minute. Nurse stated she did not look well. Since patient is tachycardic tachypneic has a source and there is an infiltrate in my opinion and clinically she probably has a right lower lobe pneumonia as well will obtain blood cultures prior to administration of Rocephin and azithromycin. Blood cultures and antibiotics were not started initially since Iwas waiting for the rapid antigenfor COVID, RSV and influenza. Since those arenegative we will treat for bacterial infection. Discharge Plan Dx/Rx/DC Orders Clinical Impression: Left lower lobe pneumonia, Pulmonary embolus, Acute bronchospasm, Acute on chronic hypoxic respiratory failure, Sinus tachycardia, SIRS (systemic inflammatory response syndrome), Elevated blood-pressure reading without diagnosis of hypertension, History of hypothyroidism, Anticoagulant long-term use Disposition Disposition: Acute Care Hospital [facility] What to do if you have Problems For any increased pain, shortness of breath, bleeding, nausea or vomiting, chestpain, or any unexpected problems, contact your Primary Care Provider. Call [facility] ([phone]) or report tothe closest Emergency Room. Call 911 if necessary. 06/27/24 1552 Cosigner Signature (if applicable): CC: Dr. Shahab Adams DO ~ Signed [facility]04-21-2025 Radiology Diagnostic study note [facility] Imaging Services [address] [place] [address] Chest PA and Lateral MR#: [id number] Acct: [id number] Name: SAVANNAH AGUIRRE Rep #: [id number] : 1960 F 63 From: Ke Crystal MD PCP: Dr. Shahab Adams DO Status: REG ER Study:Chest PA and Lateral Date of Exam: 06/27/24 Exam# [id number] Ordering Dr: Brittani Jiménez MD PROCEDURE: CHEST PA AND LATERAL 06/27/2024 REASON FOR EXAM: RESPIRATORY FAILURE, BILATERAL RALES AND RHONCHI TECHNIQUE: Frontal and lateral views of the chest. COMPARISON: Comparison is made with prior study dated June 10, 2024. FINDINGS: Hardware: EKG electrodes are seen. Heart: The heart size is normal. Mediastinum: The mediastinal contour is unremarkable. Lungs: Mild increased markings at the left lung base. Early infiltrate should be ruled out. Bones: Demineralization of the thoracic vertebrae with increased kyphosis. [place] height of the [id number]. Hiatal hernia. RAD/Chest PA and Lateral IMPRESSION: Increased markings in the posterior medial segment of the left lower lobe. Early infiltrate should be ruled out. Reading Location: [place] [address] CC: Dr. Shahab Adams DO; Dr. 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 Most recent Rheumatology visit: 05/26/2024 (with Chris Cody) Last Bone Density on file: None on file Rheumatology Care Team: None on file Recent Office Visits - This Specialty 05/26/2024 Seronegative rheumatoid arthritis (HCC) Rheumatology Chris Cody MD 04/07/2024 Seronegative rheumatoid arthritis (HCC) Rheumatology Chris Cody MD 01/01/2024 Seronegative rheumatoid arthritis (HCC) Rheumatology Chris Cody MD Upcoming Rheumatology Appointments - Next 365 Days Visit Type Date Time Department [facility] 08/04/2024 8:40 AM [facility] A[facility] CBC: Latest Ref Rng & Units 04/08/2024 05/26/2024 CBC WBC 3.70 - 11.00 k/uL 13.43 9.42 Hemoglobin 11.5 - 15.5 g/dL 14.4 15.1 Hematocrit 36.0 - 46.0 % 44.0 46.1 Platelet Count 150 - 400 k/uL 209 230 Abs Neut (ANC) 1.45 - 7.50 k/uL 11.34 7.75 Abs Lymph 1.00 - 4.00 k/uL 0.97 0.70 Vitamin D: Latest Ref Rng & Units 05/26/2024 Vitamin D Vitamin D 25 Hydroxy 31.0 - 80.0 ng/mL 59.7 LFT: Latest Ref Rng & Units 04/08/2024 05/26/2024 CMP Sodium 136 - 144 mmol/L 144 143 Potassium 3.7 - 5.1 mmol/L 3.9 4.6 Chloride 98 - 107 mmol/L 104 103 CO2 22 - 30 mmol/L 28 27 Glucose 74 - 99 mg/dL 136 129 BUN 7 - 21 mg/dL 31 30 Creatinine 0.58 - 0.96 mg/dL 1.11 1.17 Calcium 8.5 - 10.2 mg/dL 9.9 10.5 AST 13 - 35 U/L 31 42 ALT 7 - 38 U/L 45 60 Alkaline Phosphatase 34 - 123 U/L 88 93 Hepatic Function: Latest Ref Rng & Units 04/08/2024 05/26/2024 ALBUMIN Albumin 3.9 - 4.9 g/dL 4.0 4.1 Bilirubin, Total 0.2 - 1.3 mg/dL 0.4 0.7 Alkaline Phosphatase 34 - 123 U/L 88 93 AST 13 - 35 U/L 31 42 ALT 7 - 38 U/L 45 60 Protein, Total 6.3 - 8.0 g/dL 6.4 7.0 Creatinine: Latest Ref Rng & Units 04/08/2024 05/26/2024 Creatinine Creatinine 0.58 - 0.96 mg/dL 1.11 1.17 ESR/CRP: Latest Ref Rng & Units 04/08/2024 05/26/2024 ESR, WSR WSR 0 - 20 mm/hr 2 5 Latest Ref Rng & Units 04/08/2024 05/26/2024 CRP CRP <0.9 mg/dL 0.3 0.5 Uric Acid: Latest Ref Rng & Units 12/30/2023 05/26/2024 Uric Acid Uric Acid 2.5 - 6.6 mg/dL 3.3 3.3 Open Standing (Multiple Instance) Lab Orders None Open Future (Single Instance) Lab Orders None Aimee Garcia RN [facility]04-21-2025 Miscellaneous Notes* Telephone Encounter - Aimee Garcia RN - 06/27/2024 8:18 AM EDT Images from the original note were not included. Most recent Rheumatology visit: 05/26/2024 (with Chris Cody) Last Bone Density on file: None on file Rheumatology Care Team: None on file Recent Office Visits - This Specialty 05/26/2024 Seronegative rheumatoid arthritis (HCC) Rheumatology Chris Cody MD 04/07/2024 Seronegative rheumatoid arthritis (HCC) Rheumatology Chris Cody MD 01/01/2024 Seronegative rheumatoid arthritis (HCC) Rheumatology Chris Cody MD Upcoming Rheumatology Appointments - Next 365 Days Visit Type Date Time Department [facility] 08/04/2024 8:40 AM [facility]IN A50 CBC: Latest Ref Rng & Units 04/08/2024 05/26/2024 CBC WBC 3.70 - 11.00 k/uL 13.43 9.42 Hemoglobin 11.5 - 15.5 g/dL 14.4 15.1 Hematocrit 36.0 - 46.0 % 44.0 46.1 Platelet Count 150 - 400 k/uL 209 230 Abs Neut (ANC) 1.45 - 7.50 k/uL 11.34 7.75 Abs Lymph 1.00 - 4.00 k/uL 0.97 0.70 Vitamin D: Latest Ref Rng & Units 05/26/2024 Vitamin D Vitamin D 25 Hydroxy 31.0 - 80.0 ng/mL 59.7 LFT: Latest Ref Rng & Units 04/08/2024 05/26/2024 CMP Sodium 136 - 144 mmol/L 144 143 Potassium 3.7 - 5.1 mmol/L 3.9 4.6 Chloride 98 - 107 mmol/L 104 103 CO2 22 - 30 mmol/L 28 27 Glucose 74 - 99 mg/dL 136 129 BUN 7 - 21 mg/dL 31 30 Creatinine 0.58 - 0.96 mg/dL 1.11 1.17 Calcium 8.5 - 10.2 mg/dL 9.9 10.5 AST 13 - 35 U/L 31 42 ALT 7 - 38 U/L 45 60 Alkaline Phosphatase 34 - 123 U/L 88 93 Hepatic Function: Latest Ref Rng & Units 04/08/2024 05/26/2024 ALBUMIN Albumin 3.9 - 4.9 g/dL 4.0 4.1 Bilirubin, Total 0.2 - 1.3 mg/dL 0.4 0.7 Alkaline Phosphatase 34 - 123 U/L 88 93 AST 13 - 35 U/L 31 42 ALT 7 - 38 U/L 45 60 Protein, Total 6.3 - 8.0 g/dL 6.4 7.0 Creatinine: Latest Ref Rng & Units 04/08/2024 05/26/2024 Creatinine Creatinine 0.58 - 0.96 mg/dL 1.11 1.17 ESR/CRP: Latest Ref Rng & Units 04/08/2024 05/26/2024 ESR, WSR WSR 0 - 20 mm/hr 2 5 Latest Ref Rng & Units 04/08/2024 05/26/2024 CRP CRP <0.9 mg/dL 0.3 0.5 Uric Acid: Latest Ref Rng & Units 12/30/2023 05/26/2024 Uric Acid Uric Acid 2.5 - 6.6 mg/dL 3.3 3.3 Open Standing (Multiple Instance) Lab Orders None Open Future (Single Instance) Lab Orders None Aimee Garcia RN [facility] Progress note [facility] Medical Records Department [address] [place] [address] Progress Note - Hospitalist 06/12/24 0949 MR#: [id number] Acct: [id number] Name: SAVANNAH AGUIRRE Rep #:[id number] : 1960 63 From: Tyrone santiago DO PCP: Dr. Shahab Adams DO Status:ADM IN Location: [place] [address] Hospitalist Note I have reviewed the oxygen testing, and this patient qualifies for the home equipment and portability. The patient is mobile in the home and the community. 06/12/24 0949 Cosigner Signature (if applicable): CC: ~ Signed [facility]04-06-2025 Discharge summary Author Tyrone [facility] Note Date/Time June 12, 2024 9:54 am [facility] Medical Records Department [address] [place] [address] Discharge Summary 06/12/24 0946 MR#: [id number] Acct: [id number] Name: SAVANNAH AGUIRRE Rep #:[id number] : 1960 63 From: Tyrone santiago DO PCP: Dr. Shahab Adams DO Status:ADM IN Location: [place] [address] Providers Date of Admission: 06/10/24 Date of Discharge: 06/12/24 Primary Care Physician: Dr. Shahab Adams DO Reason For Visit: HYPOXIA PE ACCEL HTN Diagnosis Discharge Diagnosis (1) Hypoxemia: Status: Acute Code(s): R09.02 - Hypoxemia (2) Pulmonary embolism: Status: Acute Code(s): I26.99 - Other pulmonary embolism without acute cor pulmonale Medications at Discharge Home Medications buprenorphine 20 mcg/hour weekly transdermal patch (Butrans) 1 patch transdermalQWEEK PAIN 01/13/21 hydrocodone-acetaminophen 5-325mg 5mg-325mg 1 tab PO Q6H PRN Pain 01/13/21 levothyroxine 88 mcg tablet (Synthroid) 100 mcg PO DAILY 01/13/21 omeprazole 40 mg capsule,delayed release 40 mg PO DAILY 01/13/21 potassium chloride 20 mEq tablet,extended release(part/cryst) 20 meq PO TID SUPPLEMENT 01/13/21 triamterene 37.5 mg-hydrochlorothiazide 25 mg capsule 1 cap PO DAILY Check with primary doctor 01/13/21 gabapentin 400 mg capsule 400 mg PO TID PAIN 05/08/21 cholecalciferol (vitamin D3) 125 mcg (5,000 unit) capsule 125 mcg PO DAILY SUPPLEMENT 06/01/22 albuterol sulfate 90 mcg/actuation aerosol inhaler (ProAir HFA) 2 puff inhalation Q4H PRN shortness of breath or wheezing 10/22/22 ferrous gluconate 324 mg (37.5 mg iron) tablet 324 mg PO DAILY 10/22/22 magnesium 250 mg tablet 400 mg PO DINNER SUPPLEMENT 10/22/22 PRIMAL DEFENCE 410 mg PO 1XD probiotic 11/12/22 metoprolol succinate 50 mg tablet,extended release 24 hr 50 mg PO QHS 11/13/22 adalimumab 40 mg/0.8 mL subcutaneous pen kit (Humira Pen) 40 mg subcut .1XWEEK 06/10/24 allopurinol 300 mg tablet 300 mg PO DAILY 06/10/24 colchicine 0.6 mg tablet 0.6 mg PO DAILY 06/10/24 prednisone 5 mg tablet 15 mg PO DAILY 06/10/24 apixaban 5 mg (74 tabs) tablets in a dose pack (Eliquis DVT-PE Treat 30D Start) See Rx Instructions PO .COMPLEX #74 tabs 06/12/24 Hospital Course Operations None Procedures - (CTA chest, chest x-ray) Summary of Care Provided Minutes Spent on Discharge: 35 Hospital Course: Patient is a 63-year-old female who presented to [facility] ED on 06/10/2024 with worsening shortness of breath. Hospital course as noted below. Patient discharged home in stable condition on 06/12. 1. Acute hypoxia secondary to bilateral PE, low risk, improving ? Not on home oxygen. Required up to 5 L nasal cannula on admit to maintain appropriate oxygen saturations. CTA chest showed acute bilateral lower lobe pulmonary emboli with no right heart strain. Echo on 06/08 showed EF 60%, no evidence of right heart strain or pulmonary hypertension. Started on therapeutic Lovenox twice daily on admit, transitioned to Eliquis with loading dose on 06/11. Had good improvement during hospitalization. However, completed home oxygen testing on day of discharge and did require 2 L nasal cannula with exertion. Oxygen prescription sent. Noted to patient that I am hopeful she will be able to wean off of supplemental oxygen with exertion in the next week or so. Recommended close outpatient follow-up with PCP on discharge. 2. History of hypertension with concern for accelerated hypertension ? Presented with elevated blood pressures to the low 200s systolic on admit. Suspect secondary to acute PE as above. Much improved with 1 dose of IV hydralazine and restarting home regimen. Remained stable on home regimen duringhospitalization. Continue home Toprol and triamterene?hydrochlorothiazide on discharge. 3. Elevated troponins ? Troponin trend 37 > 46 > 81. No EKG changes noted. No chest pain noted. Recent echo as noted above. Presumed demand ischemia secondary to acute PE as noted above. No further cardiac workup needed. 4. CKD stage IIIa ? Creatinine stable at baseline 1.2-1.3. Chronic medical conditions: ? Class II obesity: BMI 35 on admit. Complicated hospital course, care and prognosis. Encouraged weight loss. ? Rheumatoid arthritis: Complicated by chronic pain syndrome currently, unclear on how active RA is. Was previously on hydroxychloroquine but no longer is for unclear reason. Continue treatment with low-dose prednisone. Okay to resume home Humira on discharge. ? Chronic back pain: Continue home buprenorphine patch, Percocet as needed and gabapentin. ? Hypothyroidism: Continue home Synthroid. ? GERD: Continue home PPI. ? History of gout: Continue home colchicine and allopurinol. Total clinical time spent by myself addressing the patient's medical issues, reviewing all the data, and collaborating with patient's care team: 35 minutes. Physical Exam Const alert, oriented x3 and no apparent distress Constitutional Narrative: Upper middle-aged female, class II obesity, energy improved from admission, sitting back comfortably in bed, conversing normally, in no acute distress. General Appearance: cooperative and comfortable HEENT normocephalic, head/scalp atraumatic, hearing grossly normal bilaterally, nasal mucous membranes and turbinates normal and moist oral mucous membranes Eyes PERRL, EOMs intact bilaterally and conjunctivae normal Neck full ROM Chest inspection of chest normal Resp normal respiratory effort and no use of accessory muscles Resp Narrative: Breathing comfortably on 2 L nasal cannula at rest. Good breath sounds bilaterally throughout with no wheezing or crackles noted, improved from admission. Cardio regular rate, regular rhythm, no murmurs and peripheral pulses 2+ throughout GI normal to inspection, nondistended, normoactive bowel sounds, soft to palpation,non-tender and non-distended Back/Spine normal ROM Extremity normal to inspection, full ROM and no pedal edema Skin no rashes or lesions noted Psych mental status grossly normal Weight / BMI Weight Weight: 90.5 kg Body Mass Index (BMI) 35.3 ABG / Lab / Microbiology Data 06/12/24 04:56 06/12/24 04:56 Laboratory: Laboratory Results - last 24 hr 06/11/24 01:27: Phosphorus 2.6 L 06/12/24 04:56: WBC 9.0, RBC 4.67, Hgb 14.4, Hct 42.8, MCV 91.6, MCH 30.8, MCHC 33.6, RDW Std Deviation 47.3 H, RDW Coeff of Hiro 14.0, Plt Count 161, MPV 10.2, Sodium 137, Potassium 4.0, Chloride 100, Carbon Dioxide 26.2, Anion Gap 11, BUN 26 H, Creatinine 1.16, Estim Creat Clear Calc 51.63, Est GFR (MDRD) Non-Af 52 L,BUN/Creatinine Ratio 22.1 H, Glucose 102 H, Calcium 9.3 06/12/24 05:51: POC Glucose 93 Microbiology: Microbiology 06/11/24 05:15 Mucosa - Nose Respiratory Panel (PCR) - Final 06/11/24 05:15 Mucosa - Nose Coronavirus COVID-19 PCR - Final D/C Instructions DC O2, CPAP, BIPAP Needs Home O2 Discharge instructions: Yes Type of respiratory needs?: Oxygen Oxygen frequency: With Ambulation Oxygen liters per minute during Ambulation: 2 DC home with Oxygen: Yes Home O2 MD Review: I have reviewed the oxygen testing, and the patient qualifies for home oxygen equipment and portability. The patient is mobile in the home and the community. Meaningful Use Info Meaningful Use Meaningful Use Diagnoses (Choose all that apply): VTE Ischemic Stroke Statin Dosing Therapy Reference: STATIN DOSE THERAPY REFERENCE: * Patients > 75 years receive moderate or high dose statin therapy. * Patients 75 years or YOUNGER should receive HIGH intensity statin dose unless contraindicated. You will be required to document reason for non-treatment if statin daily dose does not meet guidelines. HIGH DOSE STATIN THERAPY DAILY Atorvastatin > than or = to 40 mg Rosuvastatin > than or = to 20 mg Amlodipine + Atorvastatin > than or = to 2.5/40 mg Ezetimibe + Simvastatin 10/80 mg Simvastatin 80mg VTE Anticoag overlap given w/in hospital stay or rx'd at pr?: Yes Pt receive overlap for 5 days?: No Reason overlap not ordered, prescribed, or given for 5 days: Treatment Not Indicated Discharge Plan Admission Admit Date/Time: 06/10/24 23:48 Primary Reason for Your Visit: Shortness of breath Attending Provider: Tyrone Clark Primary Care Provider: Shahab Adams Consulting Providers: Maria Garcia Instructions Additional Instructions / Restrictions: Please take Eliquis for your pulmonary embolism (blood clot in the lungs) as instructed by package. Continue your other home indications as normal. Follow-up with your primary care doctor as needed. Discharge Orders/Prescriptions Prescriptions: New Eliquis DVT-PE Treat 30D Start 5 mg (74 tabs) tablets,dose pack See Rx Instructions .ROUTE .COMPLEX Qty: 74 0RF Rx Instructions: orally per package directions Continued gabapentin 400 mg capsule 400 mg PO TID Patient Comments: take 1 capsule by mouth three times a day albuterol sulfate [ProAir HFA] 90 mcg/actuation HFA aerosol inhaler 2 puff inhalation Q4H PRN (Reason: shortness of breath or wheezing) ferrous gluconate 324 mg (37.5 mg iron) tablet 324 mg PO DAILY hydrocodone-acetaminophen 5-325 mg Tablet 1 tab PO Q6H PRN (Reason: Pain) omeprazole 40 mg Capsule,Delayed Release(Dr/Ec) 40 mg PO DAILY triamterene-hydrochlorothiazid 37.5-25 mg Capsule 1 cap PO DAILY levothyroxine [Synthroid] 88 mcg Tablet 100 mcg PO DAILY potassium chloride 20 mEq tablet,ER particles/crystals 20 meq PO TID Patient Comments: take 3 capsules by mouth once daily buprenorphine [Butrans] 20 mcg/hour Patch Weekly 1 patch TRANSDERMAL QWEEK Rx Instructions: on wednesdays cholecalciferol (vitamin D3) 125 mcg (5,000 unit) Capsule 125 mcg PO DAILY magnesium 250 mg tablet 400 mg PO DINNER PRIMAL DEFENCE 410 mg PO 1XD Rx Instructions: DIETARY SUPPLEMENT metoprolol succinate 50 mg Tablet Extended Release 24 Hr 50 mg PO QHS allopurinol 300 mg tablet 300 mg PO DAILY colchicine 0.6 mg tablet 0.6 mg PO DAILY Humira Pen 40 mg/0.8 mL pen injector kit 40 mg subcut .1XWEEK Rx Instructions: inject 40MG SUBQ ONE TIME A WEEK prednisone 5 mg tablet 15 mg PO DAILY Referrals / Follow Up: Shahab Adams DO [Primary Care Provider] - Disposition Disposition (needs filled in before D/C Order can be placed): Home, Self Care Charges/Coding Visit Charges Inpatient E&M: 78346 Disch Hosp >30min 06/12/24 0954 <Electronically signed by Tyrone Clark DO> Cosigner Signature (if applicable): CC: Dr. Tyrone Clark DO; Dr. Shahab Adams DO~ Signed [facility] Work Phone: 1(445) 640-957104-06-2025 Discharge summary Author Tyrone Clark [facility] Note Date/Time June 12, 2024 9:49 am [facility] Medical Records Department [address] [place] [address] Instructions for Home/Discharge Instructions 06/12/24 0946 MR#: [id number] Acct: [id number] Name: SAVANNAH AGUIRRE Rep #:[id number] : 1960 63 From: Tyrone santiago DO PCP: Dr. Shahab Adams DO Status:ADM IN Discharge Instructions Diet Discharge Diet: No restrictions DC O2, CPAP, BIPAP needs Home O2 Discharge instructions: Yes Type of respiratory needs?: Oxygen Oxygen frequency: With Ambulation Oxygen liters per minute during Ambulation: 2 Dressing / Incision Discharge Activity: No Restrictions Follow Up Care Test Results: Test results from this visit will be discussed in further detail at your follow- up appointment, if applicable. Discharge Plan Admission Admit Date/Time: 06/10/24 23:48 Primary Reason for Your Visit: Shortness of breath Attending Provider: Tyrone Clark Primary Care Provider: Shahab Adams Consulting Providers: Maria Garcia Instructions Additional Instructions / Restrictions: Please take Eliquis for your pulmonary embolism (blood clot in the lungs) as instructed by package. Continue your other home indications as normal. Follow-up with your primary care doctor as needed. Discharge Orders/Prescriptions Prescriptions: New Eliquis DVT-PE Treat 30D Start 5 mg (74 tabs) tablets,dose pack See Rx Instructions .ROUTE .COMPLEX Qty: 74 0RF Rx Instructions: orally per package directions Continued gabapentin 400 mg capsule 400 mg PO TID Patient Comments: take 1 capsule by mouth three times a day albuterol sulfate [ProAir HFA] 90 mcg/actuation HFA aerosol inhaler 2 puff inhalation Q4H PRN (Reason: shortness of breath or wheezing) ferrous gluconate 324 mg (37.5 mg iron) tablet 324 mg PO DAILY hydrocodone-acetaminophen 5-325 mg Tablet 1 tab PO Q6H PRN (Reason: Pain) omeprazole 40 mg Capsule,Delayed Release(Dr/Ec) 40 mg PO DAILY triamterene-hydrochlorothiazid 37.5-25 mg Capsule 1 cap PO DAILY levothyroxine [Synthroid] 88 mcg Tablet 100 mcg PO DAILY potassium chloride 20 mEq tablet,ER particles/crystals 20 meq PO TID Patient Comments: take 3 capsules by mouth once daily buprenorphine [Butrans] 20 mcg/hour Patch Weekly 1 patch TRANSDERMAL QWEEK Rx Instructions: on wednesdays cholecalciferol (vitamin D3) 125 mcg (5,000 unit) Capsule 125 mcg PO DAILY magnesium 250 mg tablet 400 mg PO DINNER PRIMAL DEFENCE 410 mg PO 1XD Rx Instructions: DIETARY SUPPLEMENT metoprolol succinate 50 mg Tablet Extended Release 24 Hr 50 mg PO QHS allopurinol 300 mg tablet 300 mg PO DAILY colchicine 0.6 mg tablet 0.6 mg PO DAILY Humira Pen 40 mg/0.8 mL pen injector kit 40 mg subcut .1XWEEK Rx Instructions: inject 40MG SUBQ ONE TIME A WEEK prednisone 5 mg tablet 15 mg PO DAILY Referrals / Follow Up: Shahab Adams, [Primary Care Provider] - Disposition Disposition (needs filled in before D/C Order can be placed): Home, Self Care 06/12/2449<Electronically signed by Tyrone eliot HERRERA>Tyrone Clark DO CC: Dr. Maria Garcia MD; Dr. Shahab Adams, ~ Signed [facility] Work Phone: [phone]) 622-803304-06-2025 Progress [facility] Note Date/Time June 12, 2024 1:14 pm [facility] Medical Records Department [address] [place] [address] Progress Note - Hospitalist 06/12/2449 MR#: [id number] Acct: [id number] Name: SAVANNAH AGUIRRE Rep #:[id number] : 1960 63 From: Tyrone santiago DO PCP: Dr. Shahab Adams DO Status:ADM IN Location: [place] [address] Hospitalist Note I have reviewed the oxygen testing, and this patient qualifies for the home equipment and portability. The patient is mobile in the home and the community. 06/12/24 0949 <Electronically signed by Tyrone Clark DO> Cosigner Signature (if applicable): CC: ~ Signed [facility] Work Phone: [phone]) 698-816704-06-2025 Discharge summary [facility] Medical Records Department [address] [place] [address] Discharge Summary 06/12/2446 MR#: [id number] Acct: [id number] Name: SAVANNAH AGUIRRE Rep #:[id number] : 1960 63 From: Tyrone santiago DO PCP: Dr. Shahab Adams DO Status:ADM IN Location: [place] [address] Providers Date of Admission: 06/10/24 Date of Discharge: 06/12/24 Primary Care Physician: Dr. Shahab Adams DO Reason For Visit: HYPOXIA PE ACCEL HTN Diagnosis Discharge Diagnosis (1) Hypoxemia: Status: Acute Code(s): R09.02 - Hypoxemia (2) Pulmonary embolism: Status: Acute Code(s): I26.99 - Other pulmonary embolism without acute cor pulmonale Medications at Discharge Home Medications buprenorphine 20 mcg/hour weekly transdermal patch (Butrans) 1 patch transdermalQWEEK PAIN 01/13/21 hydrocodone-acetaminophen 5-325mg 5mg-325mg 1 tab PO Q6H PRN Pain 01/13/21 levothyroxine 88 mcg tablet (Synthroid) 100 mcg PO DAILY 01/13/21 omeprazole 40 mg capsule,delayed release 40 mg PO DAILY 01/13/21 potassium chloride 20 mEq tablet,extended release(part/cryst) 20 meq PO TID SUPPLEMENT 01/13/21 triamterene 37.5 mg-hydrochlorothiazide 25 mg capsule 1 cap PO DAILY Check with primary doctor 01/13/21 gabapentin 400 mg capsule 400 mg PO TID PAIN 05/08/21 cholecalciferol (vitamin D3) 125 mcg (5,000 unit) capsule 125 mcg PO DAILY SUPPLEMENT 06/01/22 albuterol sulfate 90 mcg/actuation aerosol inhaler (ProAir HFA) 2 puff inhalation Q4H PRN shortnessof breath or wheezing 10/22/22 ferrous gluconate 324 mg (37.5 mg iron) tablet 324 mg PO DAILY 10/22/22 magnesium 250 mg tablet 400 mg PO DINNER SUPPLEMENT 10/22/22 PRIMAL DEFENCE 410 mg PO 1XD probiotic 11/12/22 metoprolol succinate 50 mg tablet,extended release 24 hr 50 mg PO QHS 11/13/22 adalimumab 40 mg/0.8 mL subcutaneous pen kit (Humira Pen) 40 mg subcut .1XWEEK 06/10/24 allopurinol 300 mg tablet 300 mg PO DAILY 06/10/24 colchicine 0.6 mg tablet 0.6 mg PO DAILY 06/10/24 prednisone 5 mg tablet 15 mg PO DAILY 06/10/24 apixaban 5 mg (74 tabs) tablets in a dose pack (Eliquis DVT-PE Treat 30D Start) See Rx InstructionsPO .COMPLEX #74 tabs 06/12/24 Hospital Course Operations None Procedures - (CTA chest, chest x-ray) Summary of Care Provided Minutes Spent on Discharge: 35 Hospital Course: Patient is a 63-year-old female who presented to [facility] ED on 06/10/2024 with worsening shortness of breath. Hospital course as noted below. Patient discharged home in stable condition on 06/12. 1. Acute hypoxia secondary to bilateral PE, low risk, improving ? Not on home oxygen. Required up to 5 L nasal cannula on admit to maintain appropriate oxygen saturations. CTA chest showed acute bilateral lower lobe pulmonary emboli with no right heart strain. Echo on 06/08 showed EF 60%, no evidence of right heart strain or pulmonary hypertension. Started on therapeutic Lovenox twice daily on admit, transitioned to Eliquis with loading dose on 06/11. Had good improvement during hospitalization. However, completed home oxygen testing on day of discharge and didrequire 2 L nasal cannula with exertion. Oxygen prescription sent. Noted to patient that I am hopeful she will be able to wean off of supplemental oxygen with exertion in the next week or so. Recommen ded close outpatient follow-up with PCP on discharge. 2. History of hypertension with concern for accelerated hypertension ? Presented with elevated blood pressures to the low 200s systolic on admit. Suspect secondary to acute PE as above. Much improved with 1 dose of IV hydralazine and restarting home regimen. Remained stable on home regimen duringhospitalization. Continue home Toprol and triamterene?hydrochlorothiazide on discharge. 3. Elevated troponins ? Troponin trend 37 > 46 > 81. No EKG changes noted. No chest pain noted. Recent echo as noted above. Presumed demand ischemia secondary to acute PE as noted above. No further cardiac workup needed. 4. CKD stage IIIa ? Creatinine stable at baseline 1.2-1.3. Chronic medical conditions: ? Class II obesity: BMI 35 on admit. Complicated hospital course, care and prognosis. Encouraged weight loss. ? Rheumatoid arthritis: Complicated by chronic pain syndrome currently, unclear on how active RA is. Was previously on hydroxychloroquine but no longer is for unclear reason. Continue treatment with low-dose prednisone. Okay to resume home Humira on discharge. ? Chronic back pain: Continue home buprenorphine patch, Percocet as needed and gabapentin. ? Hypothyroidism: Continue home Synthroid. ? GERD: Continue home PPI. ? History of gout: Continue home colchicine and allopurinol. Total clinical time spent by myself addressing the patient's medical issues, reviewing all the data, and collaborating with patient's care team: 35 minutes. Physical Exam Const alert, oriented x3 and no apparent distress Constitutional Narrative: Upper middle-aged female, class II obesity, energy improved from admission, sitting back comfortably in bed, conversing normally, in no acute distress. General Appearance: cooperative and comfortable HEENT normocephalic, head/scalp atraumatic, hearing grossly normal bilaterally, nasal mucous membranes and turbinates normal and moist oral mucous membranes Eyes PERRL, EOMs intact bilaterally and conjunctivae normal Neck full ROM Chest inspection of chest normal Resp normal respiratory effort and no use of accessory muscles Resp Narrative: Breathing comfortably on 2 L nasal cannula at rest. Good breath sounds bilaterally throughout with no wheezing or crackles noted, improved from admission. Cardio regular rate, regular rhythm, no murmurs and peripheral pulses 2+ throughout GI normal to inspection, nondistended, normoactive bowel sounds, soft to palpation,non-tender and non-distended Back/Spine normal ROM Extremity normal to inspection, full ROM and no pedal edema Skin no rashes or lesions noted Psych mental status grossly normal Weight / BMI Weight Weight: 90.5 kg Body Mass Index (BMI) 35.3 ABG / Lab / Microbiology Data 06/12/24 04:56 06/12/24 04:56 Laboratory: Laboratory Results - last 24 hr 06/11/24 01:27: Phosphorus 2.6 L 06/12/24 04:56: WBC 9.0, RBC 4.67, Hgb 14.4, Hct 42.8, MCV 91.6, MCH 30.8, MCHC 33.6, RDW Std Deviation 47.3 H, RDW Coeff of Hiro 14.0, Plt Count 161, MPV 10.2, Sodium 137, Potassium 4.0, Chloride 100, Carbon Dioxide 26.2, Anion Gap 11, BUN 26 H, Creatinine 1.16, Estim Creat Clear Calc 51.63, Est GFR (MDRD) Non-Af 52 L,BUN/Creatinine Ratio 22.1 H, Glucose 102 H, Calcium 9.3 06/12/24 05:51: POC Glucose 93 Microbiology: Microbiology 06/11/24 05:15 Mucosa - Nose Respiratory Panel (PCR) - Final 06/11/24 05:15 Mucosa - Nose Coronavirus COVID-19 PCR - Final D/C Instructions DC O2, CPAP, BIPAP Needs Home O2 Discharge instructions: Yes Type of respiratory needs?: Oxygen Oxygen frequency: With Ambulation Oxygen liters per minute during Ambulation: 2 DC home with Oxygen: Yes Home O2 MD Review: I have reviewed the oxygen testing, and the patient qualifies for home oxygen equipment and portability. The patient is mobile in the home and the community. Meaningful Use Info Meaningful Use Meaningful Use Diagnoses (Choose all that apply): VTE Ischemic Stroke Statin Dosing Therapy Reference: STATIN DOSE THERAPY REFERENCE: * Patients > 75 years receive moderate or high dose statin therapy. * Patients 75 years or YOUNGER should receive HIGH intensity statin dose unless contraindicated. You will be required to document reason for non-treatment if statin daily dose does not meet guidelines. HIGH DOSE STATIN THERAPY DAILY Atorvastatin > than or = to 40 mg Rosuvastatin > than or = to 20 mg Amlodipine + Atorvastatin > than or = to 2.5/40 mg Ezetimibe + Simvastatin 10/80 mg Simvastatin 80mg VTE Anticoag overlap given w/in hospital stay or rx'd at dc?: Yes Pt receive overlap for 5 days?: No Reason overlap not ordered, prescribed, or given for 5 days: Treatment Not Indicated Discharge Plan Admission Admit Date/Time: 06/10/24 23:48 Primary Reason for Your Visit: Shortness of breath Attending Provider: Tyrone Clark Primary Care Provider: Shahab Adams Consulting Providers: Maria Garcia Instructions Additional Instructions / Restrictions: Please take Eliquis for your pulmonary embolism (blood clot in the lungs) as instructed by package.Continue your other home indications as normal. Follow-up with your primary care doctor as needed. Discharge Orders/Prescriptions Prescriptions: New Eliquis DVT-PE Treat 30D Start 5 mg (74 tabs) tablets,dose pack See Rx Instructions .ROUTE .COMPLEX Qty: 74 0RF Rx Instructions: orally per package directions Continued gabapentin 400 mg capsule 400 mg PO TID Patient Comments: take 1 capsule by mouth three times a day albuterol sulfate [ProAir HFA] 90 mcg/actuation HFA aerosol inhaler 2 puff inhalation Q4H PRN (Reason: shortness of breath or wheezing) ferrous gluconate 324 mg (37.5 mg iron) tablet 324 mg PO DAILY hydrocodone-acetaminophen 5-325 mg Tablet 1 tab PO Q6H PRN (Reason: Pain) omeprazole 40 mg Capsule,Delayed Release(Dr/Ec) 40 mg PO DAILY triamterene-hydrochlorothiazid 37.5-25 mg Capsule 1 cap PO DAILY levothyroxine [Synthroid] 88 mcg Tablet 100 mcg PO DAILY potassium chloride 20 mEq tablet,ER particles/crystals 20 meq PO TID Patient Comments: take 3 capsules by mouth once daily buprenorphine [Butrans] 20 mcg/hour Patch Weekly 1 patch TRANSDERMAL QWEEK Rx Instructions: on wednesdays cholecalciferol (vitamin D3) 125 mcg (5,000 unit) Capsule 125 mcg PO DAILY magnesium 250 mg tablet 400 mg PO DINNER PRIMAL DEFENCE 410 mg PO 1XD Rx Instructions: DIETARY SUPPLEMENT metoprolol succinate 50 mg Tablet Extended Release 24 Hr 50 mg PO QHS allopurinol 300 mg tablet 300 mg PO DAILY colchicine 0.6 mg tablet 0.6 mg PO DAILY Humira Pen 40 mg/0.8 mL pen injector kit 40 mg subcut .1XWEEK Rx Instructions: inject 40MG SUBQ ONE TIME A WEEK prednisone 5 mg tablet 15 mg PO DAILY Referrals / Follow Up: Shahab Adams DO [Primary Care Provider] - Disposition Disposition (needs filled in before D/C Order can be placed): Home, Self Care Charges/Coding Visit Charges Inpatient E&M: 54444 Disch Hosp >30min 06/12/24 0954 Cosigner Signature (if applicable): CC: Dr. Tyrone Clark DO; Dr. Shahab Adams DO~ Signed [facility]04-06-2025 Discharge summary [facility] Medical Records Department [address] [place] [address] Instructions for Home/Discharge Instructions 06/12/24 0946 MR#: [id number] Acct: [id number] Name: SAVANNAH AGUIRRE Rep #:[id number] : 1960 63 From: Tyrone santiago DO PCP: Dr. Shahab Adams DO Status:ADM IN Discharge Instructions Diet Discharge Diet: No restrictions DC O2, CPAP, BIPAP needs Home O2 Discharge instructions: Yes Type of respiratory needs?: Oxygen Oxygen frequency: With Ambulation Oxygen liters per minute during Ambulation: 2 Dressing / Incision Discharge Activity: No Restrictions Follow Up Care Test Results: Test results from this visit will be discussed in further detail at your follow- up appointment, if applicable. Discharge Plan Admission Admit Date/Time: 06/10/24 23:48 Primary Reason for Your Visit: Shortness of breath Attending Provider: Tyrone Clark Primary Care Provider: Shahab Adams Consulting Providers: Maria Garcia Instructions Additional Instructions / Restrictions: Please take Eliquis for your pulmonary embolism (blood clot in the lungs) as instructed by package.Continue your other home indications as normal. Follow-up with your primary care doctor as needed. Discharge Orders/Prescriptions Prescriptions: New Belindaqublu DVT-PE Treat 30D Start 5 mg (74 tabs) tablets,dose pack See Rx Instructions .ROUTE .COMPLEX Qty: 74 0RF Rx Instructions: orally per package directions Continued gabapentin 400 mg capsule 400 mg PO TID Patient Comments: take 1 capsule by mouth three times a day albuterol sulfate [ProAir HFA] 90 mcg/actuation HFA aerosol inhaler 2 puff inhalation Q4H PRN (Reason: shortness of breath or wheezing) ferrous gluconate 324 mg (37.5 mg iron) tablet 324 mg PO DAILY hydrocodone-acetaminophen 5-325 mg Tablet 1 tab PO Q6H PRN (Reason: Pain) omeprazole 40 mg Capsule,Delayed Release(Dr/Ec) 40 mg PO DAILY triamterene-hydrochlorothiazid 37.5-25 mg Capsule 1 cap PO DAILY levothyroxine [Synthroid] 88 mcg Tablet 100 mcg PO DAILY potassium chloride 20 mEq tablet,ER particles/crystals 20 meq PO TID Patient Comments: take 3 capsules by mouth once daily buprenorphine [Butrans] 20 mcg/hour Patch Weekly 1 patch TRANSDERMAL QWEEK Rx Instructions: on wednesdays cholecalciferol (vitamin D3) 125 mcg (5,000 unit) Capsule 125 mcg PO DAILY magnesium 250 mg tablet 400 mg PO DINNER PRIMAL DEFENCE 410 mg PO 1XD Rx Instructions: DIETARY SUPPLEMENT metoprolol succinate 50 mg Tablet Extended Release 24 Hr 50 mg PO QHS allopurinol 300 mg tablet 300 mg PO DAILY colchicine 0.6 mg tablet 0.6 mg PO DAILY Humira Pen 40 mg/0.8 mL pen injector kit 40 mg subcut .1XWEEK Rx Instructions: inject 40MG SUBQ ONE TIME A WEEK prednisone 5 mg tablet 15 mg PO DAILY Referrals / Follow Up: Shahab Adams DO [Primary Care Provider] - Disposition Disposition (needs filled in before D/C Order can be placed): Home, Self Care 06/12/24 0949Aleangelica Clark DO CC: Dr. Maria Garcia MD; Dr. Shahab Adams DO ~ Signed [facility]04[facility]06-[facility] Progress note Author Tyrone [facility] Note Date/Time June 11, 2024 2:07 pm [facility] Medical Records Department [address] [place] [address] Progress Note - Hospitalist 06/11/24 1128 MR#: [id number] Acct: [id number] Name: SAVANNAH AGUIRRE Rep #:[id number] : 1960 63 From: Tyrone santiago DO PCP: Dr. Shahab Adams, DO Status:ADM IN Location: [place] [address] Reason for Visit Reason for Visit: Diagnoses Essential (primary) hypertension (06/10/24) Other pulmonary embolism without acute cor pulmonale (06/10/24) Hypoxemia (06/10/24) Subjective Subjective Saw patient at bedside this morning. Patient was sitting back comfortably in bed, conversing normally, in no acute distress. She is breathing comfortably on3 L nasal cannula at rest. Noted that she did feel moderately improved from yesterday from a breathing standpoint. Denies any shortness of breath at rest, has not been out of bed yet this morning to see if she has any shortness of breath with exertion. No other new concerns today. Objective Data Objective Data Vital Signs: Vital Signs Temp Pulse Resp BP Pulse Ox O2 Del Method O2 Flow Rate 98.1 F 88 20 H 113/70 94 Nasal Cannula 5 06/11/24 09:10 06/11/24 09:10 06/11/24 09:10 06/11/24 09:10 06/11/24 09:10 06/11/24 09:10 06/11/24 09:10 FiO2 95 06/11/24 08:46 Oxygen Flow Rate (L/min) 5 Oxygen Delivery Method Nasal Cannula Weight: 90 kg Body Mass Index (BMI) 35.1 Intake & Output: Intake and Output for Last 24 Hours 06/09/24 06/10/24 06/11/24 23:59 23:59 23:59 Intake Total 200 / 200 Balance 200 / 200 Lab / Micro Data 06/11/24 02:53 06/11/24 02:53 Labs: Laboratory Results - last 24 hr 06/10/24 22:21: WBC 11.4 H, RBC 5.01, Hgb 15.2 H, Hct 45.7, MCV 91.2, MCH 30.3, MCHC 33.3, RDW Std Deviation 46.0 H, RDW Coeff of Hiro 13.8, Plt Count 180, MPV 10.1, Immature Gran % (Auto) 0.700, Neut % (Auto) 67.6, Lymph % (Auto) 16.3 L, [place] % (Auto) 10.3 H, Eos % (Auto) 4.4, Baso % (Auto) 0.7, Absolute Neuts (auto) 7.7, Absolute Lymphs (auto) 1.86, Nucleated RBC % 0, Sodium 141, Potassium 3.3, Chloride 102, Carbon Dioxide 25.2, Anion Gap 14, BUN 21 H, Creatinine 1.34 H, Estim Creat Clear Calc 44.39 L, Est GFR (MDRD) Non-Af 44 L, BUN/Creatinine Ratio 15.4, Glucose 127 H, Calcium 9.7, Magnesium 1.7, Troponin T High Sens 37 H D, NTpro BNP II 436 06/10/24 22:29: D-Dimer Quant (PE/DVT) 3.20 H* 06/11/24 00:38: Troponin T Hi Sens 2 Hr 46 H 06/11/24 01:27: Phosphorus 2.6 L 06/11/24 02:53: WBC 15.0 H, RBC 4.76, Hgb 14.5, Hct 43.2, MCV 90.8, MCH 30.5, MCHC 33.6, RDW Std Deviation 45.7 H, RDW Coeff of Hiro 13.8, Plt Count 168, MPV 10.2, Immature Gran % (Auto) 0.800, Neut % (Auto) 72.6 H, Lymph % (Auto) 10.8 L,[place] % (Auto) 10.1 H, Eos % (Auto) 4.9, Baso % (Auto) 0.8, Absolute Neuts (auto)10.9 H, Absolute Lymphs (auto) 1.62, Nucleated RBC % 0, Differential Comment SCANNED, Diff Path Review July, Sodium 138, Potassium 3.0 L, Chloride 100, Carbon Dioxide 24.4, Anion Gap 14, BUN 21 H, Creatinine 1.23 H, Estim Creat Clear Calc 48.55 L, Est GFR (MDRD) Non-Af 49 L, BUN/Creatinine Ratio 16.9, Glucose 145 H, Calcium 9.4, Total Bilirubin 0.62, AST 34 H, ALT 43 H, Alkaline Phosphatase 79, Troponin T Hi Sens 4Hr 81 H*, Total Protein 6.0, Albumin 3.7, Globulin 2.4, Albumin/Globulin Ratio 1.6 Micro: Microbiology 06/11/24 05:15 Mucosa - Nose Respiratory Panel (PCR) - Final 06/11/24 05:15 Mucosa - Nose Coronavirus COVID-19 PCR - Final Radiography Diagnostic Testing: Radiology Impression Chest X-Ray 06/10/24 22:36 IMPRESSION: Generalized interstitial prominence without focal consolidation. [facility] 06/10/24 23:02 IMPRESSION: 1. Acute bilateral lower lobe pulmonary emboli as above. No definite evidence of right heart strain. 2. Subtle generalized ground-glass opacities in the upper lung zones which may relate to edema/atelectasis versus pneumonitis. No focal consolidations. 3. Moderate hiatal hernia. Above findings discussed with Dr. Loja by phone at 2347 hours on 06/10/2024 Reading Location: [facility] Rhythm Strip Rhythm Strip: Sinus Rhythm Rate: 95 Ectopy: None Physical Exam Const alert, oriented x3 and no apparent distress Constitutional Narrative: Upper middle-aged female, class II obesity, mildly fatigued appearing but otherwise sitting back comfortably in bed, conversing normally, in no acute distress. General Appearance: cooperative and comfortable HEENT normocephalic, head/scalp atraumatic, hearing grossly normal bilaterally, nasal mucous membranes and turbinates normal and moist oral mucous membranes Eyes PERRL, EOMs intact bilaterally and conjunctivae normal Neck full ROM Chest inspection of chest normal Resp normal respiratory effort and no use of accessory muscles Resp Narrative: Breathing comfortably on 3 L nasal cannula at rest. Mild crackles noted in upper airways bilaterally but otherwise good breath sounds and no wheezing noted. Cardio regular rate, regular rhythm, no murmurs and peripheral pulses 2+ throughout GI normal to inspection, nondistended, normoactive bowel sounds, soft to palpation,non-tender and non-distended Back/Spine normal ROM Extremity normal to inspection, full ROM and no pedal edema Skin no rashes or lesions noted Psych mental status grossly normal Assessment & Plan Assessment/Plan (1) Hypoxemia: (2) Pulmonary embolism: PLAN: Plan Patient is a 63-year-old female who presented to [facility] ED on 06/10/2024 with worsening shortness of breath. 1. Acute hypoxia secondary to bilateral PE, low risk ? Not on home oxygen. Required up to 5 L nasal cannula and admit to maintain appropriate oxygen saturations. CTA chest showed acute bilateral lower lobe pulmonary emboli with no right heart strain; also showed subtle generalized groundglass opacities in the upper lung zones concerning for possible edema versus pneumonitis with no focal consolidations. Echo on 06/08 showed EF 60%, no evidence of right heart strain or pulmonary hypertension. Started on therapeutic Lovenox twice daily on admit, transitioned to Eliquis with loading dose on 06/11. Weaning supplemental oxygen as able. Hopeful for discharge home in the next 1 to 2 days. 2. Concern for accelerated hypertension ? Presented with elevated blood pressures to the low 200s systolic on admit. Suspect secondary to acute PE as above. Much improved with 1 dose of IV hydralazine and restarting home regimen. Continue home Toprol and triamterene?hydrochlorothiazide. 3. Elevated troponins ? Troponin trend 37 > 46 > 81. No EKG changes noted. No chest pain noted. Recent echo as noted above. Presumed demand ischemia secondary to acute PE as noted above. No further cardiac workup needed. 4. CKD stage IIIa ? Creatinine stable at baseline 1.2-1.3. Chronic medical conditions: ? Class II obesity: BMI 35 on admit. Complicates hospital course, care and prognosis. Encouraged weight loss. ? Rheumatoid arthritis: Complicated by chronic pain syndrome currently, unclear on how active RA is. Was previously on hydroxychloroquine but no longer is for unclear reason. Unclear if mild groundglass opacities on CT on admit may be related to her RA. Continue treatment with low-dose prednisone while inpatient. ? Chronic back pain: Continue home buprenorphine patch, Percocet as needed and gabapentin. ? Hypothyroidism: Continue home Synthroid. ? GERD: Continue home PPI. ? History of gout: Continue home colchicine and allopurinol. DVT prophylaxis: Not indicated, on Eliquis CODE STATUS: Full code, verified Expected disposition: Home, 1 to 2 days Total clinical time spent by myself addressing the patient's medical issues, reviewing all the data, and collaborating with patient's care team: 35 minutes. Charges/Coding Visit Charges Inpatient E&M: 59216 Subs Hosp L2 06/11/24 1407 <Electronically signed by Tyrone Clark DO> Cosigner Signature (if applicable): CC: ~ Signed [facility] Work Phone: 1(260) 245-436804-05-2025 Progress note [facility] Medical Records Department [address] [place] [address] Progress Note - Hospitalist 06/11/24 1128 MR#: [id number] Acct: [id number] Name: SAVANNAH AGUIRRE Rep #:[id number] : 1960 63 From: Tyrone santiago DO PCP: Dr. Shahab Adams, Status:ADM IN Location: [place] [address] Reason for Visit Reason for Visit: Diagnoses Essential (primary) hypertension (06/10/24) Other pulmonary embolism without acute cor pulmonale (06/10/24) Hypoxemia (06/10/24) Subjective Subjective Saw patient at bedside this morning. Patient was sitting back comfortably in bed, conversing normally, in no acute distress. She is breathing comfortably on3 L nasal cannula at rest. Noted that she did feel moderately improved from yesterday from a breathing standpoint. Denies any shortness of breath at rest, has not been out of bed yet this morning to see if she has any shortness of breath with exertion. No other new concerns today. Objective Data Objective Data Vital Signs: Vital Signs Temp Pulse Resp BP Pulse Ox O2 Del Method O2 Flow Rate 98.1 F 88 20 H 113/70 94 Nasal Cannula 5 06/11/24 09:10 06/11/24 09:10 06/11/24 09:10 06/11/24 09:10 06/11/24 09:10 06/11/24 09:10 06/11/24 09:10 FiO2 95 06/11/24 08:46 Oxygen Flow Rate (L/min) 5 Oxygen Delivery Method Nasal Cannula Weight: 90 kg Body Mass Index (BMI) 35.1 Intake & Output: Intake and Output for Last 24 Hours 06/09/24 06/10/24 06/11/24 23:59 23:59 23:59 Intake Total 200 / 200 Balance 200 / 200 Lab / Micro Data 06/11/24 02:53 06/11/24 02:53 Labs: Laboratory Results - last 24 hr 06/10/24 22:21: WBC 11.4 H, RBC 5.01, Hgb 15.2 H, Hct 45.7, MCV 91.2, MCH 30.3, MCHC 33.3, RDW Std Deviation 46.0 H, RDW Coeff of Hiro 13.8, Plt Count 180, MPV 10.1, Immature Gran % (Auto) 0.700, Neut% (Auto) 67.6, Lymph % (Auto) 16.3 L, [place] % (Auto) 10.3 H, Eos % (Auto) 4.4, Baso % (Auto) 0.7, Absolute Neuts (auto) 7.7, Absolute Lymphs (auto) 1.86, Nucleated RBC % 0, Sodium 141, Potassium 3.3, Chloride 102, Carbon Dioxide 25.2, Anion Gap 14, BUN 21 H, Creatinine 1.34 H, Estim Creat Clear Calc44.39 L, Est GFR (MDRD) Non-Af 44 L, BUN/Creatinine Ratio 15.4, Glucose 127 H, Calcium 9.7, Magnesium 1.7, Troponin T High Sens 37 H D, NTpro BNP II 436 06/10/24 22:29: D-Dimer Quant (PE/DVT) 3.20 H* 06/11/24 00:38: Troponin T Hi Sens 2 Hr 46 H 06/11/24 01:27: Phosphorus 2.6 L 06/11/24 02:53: WBC 15.0 H, RBC 4.76, Hgb 14.5, Hct 43.2, MCV 90.8, MCH 30.5, MCHC 33.6, RDW Std Deviation 45.7 H, RDW Coeff of Hiro 13.8, Plt Count 168, MPV 10.2, Immature Gran % (Auto) 0.800, Neut %(Auto) 72.6 H, Lymph % (Auto) 10.8 L,[place] % (Auto) 10.1 H, Eos % (Auto) 4.9, Baso % (Auto) 0.8, Absolute Neuts (auto)10.9 H, Absolute Lymphs (auto) 1.62, Nucleated RBC % 0, Differential Comment SCANNED, Diff Path Review May foll, Sodium 138, Potassium 3.0 L, Chloride 100, Carbon Dioxide 24.4, AnionGap 14, BUN 21 H, Creatinine 1.23 H, Estim Creat Clear Calc 48.55 L, Est GFR (MDRD) Non-Af 49 L, BUN/Creatinine Ratio 16.9, Glucose 145 H, Calcium 9.4, Total Bilirubin 0.62, AST 34 H, ALT 43 H, Alkaline Phosphatase 79, Troponin T Hi Sens 4Hr 81 H*, Total Protein 6.0, Albumin 3.7, Globulin 2.4, Albumin/Globulin Ratio 1.6 Micro: Microbiology 06/11/24 05:15 Mucosa - Nose Respiratory Panel (PCR) - Final 06/11/24 05:15 Mucosa - Nose Coronavirus COVID-19 PCR - Final Radiography Diagnostic Testing: Radiology Impression Chest X-Ray 06/10/24 22:36 IMPRESSION: Generalized interstitial prominence without focal consolidation. Reading Location: [facility] Chest CTA 06/10/24 23:02 IMPRESSION: 1. Acute bilateral lower lobe pulmonary emboli as above. No definite evidence of right heart strain. 2. Subtle generalized ground-glass opacities in the upper lung zones which may relate to edema/atelectasis versus pneumonitis. No focal consolidations. 3. Moderate hiatal hernia. Above findings discussed with Dr. Loja by phone at 2347 hours on 06/10/2024 Reading Location: [facility] Rhythm Strip Rhythm Strip: Sinus Rhythm Rate: 95 Ectopy: None Physical Exam Const alert, oriented x3 and no apparent distress Constitutional Narrative: Upper middle-aged female, class II obesity, mildly fatigued appearing but otherwise sitting back comfortably in bed, conversing normally, in no acute distress. General Appearance: cooperative and comfortable HEENT normocephalic, head/scalp atraumatic, hearing grossly normal bilaterally, nasal mucous membranes and turbinates normal and moist oral mucous membranes Eyes PERRL, EOMs intact bilaterally and conjunctivae normal Neck full ROM Chest inspection of chest normal Resp normal respiratory effort and no use of accessory muscles Resp Narrative: Breathing comfortably on 3 L nasal cannula at rest. Mild crackles noted in upper airways bilaterally but otherwise good breath sounds and no wheezing noted. Cardio regular rate, regular rhythm, no murmurs and peripheral pulses 2+ throughout GI normal to inspection, nondistended, normoactive bowel sounds, soft to palpation,non-tender and non-distended Back/Spine normal ROM Extremity normal to inspection, full ROM and no pedal edema Skin no rashes or lesions noted Psych mental status grossly normal Assessment & Plan Assessment/Plan (1) Hypoxemia: (2) Pulmonary embolism: PLAN: Plan Patient is a 63-year-old female who presented to [facility] ED on 06/10/2024 with worsening shortness of breath. 1. Acute hypoxia secondary to bilateral PE, low risk ? Not on home oxygen. Required up to 5 L nasal cannula and admit to maintain appropriate oxygen saturations. CTA chest showed acute bilateral lower lobe pulmonary emboli with no right heart strain; also showed subtle generalized groundglass opacities in the upper lung zones concerning for possible edema versus pneumonitis with no focal consolidations. Echo on 06/08 showed EF 60%, no evidence of right heart strain or pulmonary hypertension. Started on therapeutic Lovenox twice daily on admit, transitioned to Eliquis with loading dose on 06/11. Weaning supplemental oxygen as able. Hopeful for discharge home in the next 1 to 2 days. 2. Concern for accelerated hypertension ? Presented with elevated blood pressures to the low 200s systolic on admit. Suspect secondary to acute PE as above. Much improved with 1 dose of IV hydralazine and restarting home regimen. Continue home Toprol and triamterene?hydrochlorothiazide. 3. Elevated troponins ? Troponin trend 37 > 46 > 81. No EKG changes noted. No chest pain noted. Recent echo as noted above. Presumed demand ischemia secondary to acute PE as noted above. No further cardiac workup needed. 4. CKD stage IIIa ? Creatinine stable at baseline 1.2-1.3. Chronic medical conditions: ? Class II obesity: BMI 35 on admit. Complicates hospital course, care and prognosis. Encouraged weight loss. ? Rheumatoid arthritis: Complicated by chronic pain syndrome currently, unclear on how active RA is. Was previously on hydroxychloroquine but no longer is for unclear reason. Unclear if mild groundglass opacities on CT on admit may be related to her RA. Continue treatment with low-dose prednisone while inpatient. ? Chronic back pain: Continue home buprenorphine patch, Percocet as needed and gabapentin. ? Hypothyroidism: Continue home Synthroid. ? GERD: Continue home PPI. ? History of gout: Continue home colchicine and allopurinol. DVT prophylaxis: Not indicated, on Eliquis CODE STATUS: Full code, verified Expected disposition: Home, 1 to 2 days Total clinical time spent by myself addressing the patient's medical issues, reviewing all the data, and collaborating with patient's care team: 35 minutes. Charges/Coding Visit Charges Inpatient E&M: 12329 Subs Hosp L2 06/11/24 1407 Cosigner Signature (if applicable): CC: ~ Signed [facility]04-05-2025 History and physical note Author Maria Garcia [facility] Note Date/Time June 11, 2024 12:2 9am [facility] Medical Records Department [address] [place] [address] H&P Exam - Hospitalist 06/10/24 2345 MR#: [id number] Acct: [id number] Name: SAVANNAH AGUIRRE Rep #:[id number] : 1960 63 From: Maria Garcia MD PCP: Dr. Shahab Adams, DO Status:ADM IN Location: [place] [id number] HPI - General General Date of Admission: 06/11/24 Date of Service: 06/10/24 Chief Complaint: Dyspnea, chest pain. HPI Narrative The patient is a 63 y/o F w/ PMHx: Gout, Anxiety and Depression, Hypothyroidism,Rheumatoid arthritis, Fibromyalgia, Chronic migraines, Chronic pain syndrome w/ Hx spinal cord stimulator, CKD stage III unclear subtype per GFR trending, Obesity, HFpEF, GERD who presents to the [facility] ED on 06/10/24with history of dyspnea worsening over the last 6 weeks seen 4 weeks previously for it with an outpatient echocardiogram that was normal however today she feelsworse with chest burning sensation and increased phlegm in her throat and chest with persistent minor cough with no fevers or chills with dyspnea worse with exertion and unchanged lower extremity distal edema with self administration of albuterol inhaler without improvement prompting eventual ED evaluation. Patientreports chest discomfort primarily with deep inspiratory effort. She has been purposely taking more shallow breaths secondary to this. To the ED staff upon presentation she does report congestion and rhinorrhea. Per weight upon currentpresentation 197 pounds and noted to be on 05/09/2024 also 197 pounds. Patient denies any recent pain to her bilateral lower extremity/calf regions. She denies any severe swelling even transient to her legs. Workup in the ED included T98.4, heart 90, BP 205/91, respiratory rate 20, 84% on room air with improvement to 95% on 2 L nasal cannula, CBC with WBC 11.4, hemoglobin 15.2, platelet 180 without marked shift, D-dimer 3.20, troponin 37, BMP with BUN/creat21/1.34, GFR 44, glucose 127 chest x-ray with generalized interstitial prominence without focal consolidation, CTPA with acute bilateral lower lobe pulmonary emboli as above, no definite evidence of right heart strain, subtle generalized ground-glass opacities in the upper lung zones which may relate to edema/atelectasis versus pneumonitis, no focal consolidations, moderate hiatal hernia, EKG sinus rhythm with no acute evidence of ischemia. In the ED patient administered Reglan 5 mg IV x 1, DuoNeb therapy, hydralazine 20 mg IV x 1 and Lovenox 90 mg subcu x 1. [facility] Medical History Post-menopausal Depression Anxiety Thyroid disease Anemia Gastric reflux Non-smoker Leg cramps History of pain when walking Hypothyroid CKD (chronic kidney disease) Hypertension Infection of spinal cord stimulator Rheumatoid arthritis Chronic pain Arthritis Fibromyalgia Migraines Home Medications ?Medication ?Instructions ?Recorded ?Last Taken ?Type buprenorphine 20 mcg/hour weekly 1 patch transdermal Q WEEK PAIN 01/13/21 05/28/22 History transdermal patch (Butrans) hydrocodone-acetaminophen 5-325mg 1 tab PO Q6H PRN Ejss n 01/13/21 11/13/22 07:00 History 5mg-325mg levothyroxine 88 mcg tablet 100 mcg PO DAILY 01/13/21 06/01/22 History (Synthroid) omeprazole 40 mg capsule,delayed 40 mg PO DAILY 06/01/22 History release potassium chloride 20 mEq 20 meq PO TID SUPPLEMENT 09/2606/01/22 History tablet,extended release(part/cryst) triamterene 37.5 1 cap PO DAILY Check with pr imary 01/13/21 06/01/22 History mg-hydrochlorothiazide 25 mg doctor capsule gabapentin 400 mg capsule 400 mg PO TID PAIN 05/08/21 06/01/22 History cholecalciferol (vitamin D3) 125 125 mcg PO DAILY SUPP LEMENT 06/01/22 06/01/22 History mcg (5,000 unit) capsule albuterol sulfate 90 mcg/actuation 2 puff inhalation Q 4H PRN 10/22/22 Unknown History aerosol inhaler (ProAir HFA) shortness of breath or wh eezing ferrous gluconate 324 mg (37.5 mg 324 mg PO DAILY 10/07 08/29 Unknown History iron) tablet magnesium 250 mg tablet 400 mg PO DINNER SUPPLEMENT 10/22/22 Unknown History PRIMAL DEFENCE 410 mg PO 1XD 11/12/22 Unkno wn History metoprolol succinate 50 mg 50 mg PO QHS 11/13/22 Unkno wn History tablet,extended release 24 hr adalimumab 40 mg/0.8 mL 40 mg subcut .1XWEEK 5 Unknown History subcutaneous pen kit (Humira Pen) allopurinol 300 mg tablet 300 mg PO DAILY 06/10/24 Unk nown History colchicine 0.6 mg tablet 0.6 mg PO DAILY 06/10/24 Unk nown History prednisone 5 mg tablet 15 mg PO DAILY 06/10/24 Unkn own History Allergy/AdvReac Type Severity Reaction Status Date / Time oxycodone Allergy Rash Verified 06/10/24 21:28 adhesive tape AdvReac Rash Verified 06/10/24 21:28 Family History (Updated 06/11/24 @ 00:[address] Maria Garcia MD) Mother Hypertension Colon polyps Father Lymphoma Surgical History Hx of hysterectomy History of carpal tunnel release Hx of thyroidectomy Hx of cholecystectomy Hx of tonsillectomy Social History household members: none Smoking Status: Never smoker alcohol intake: never substance use type: does not use ROS ROS Narrative Admission Review of Systems: CONSTITUTIONAL: No weight loss, fever, chills, + weakness or fatigue. HEENT: + Congestion, rhinorrhea. Eyes: No visual loss, blurred vision, double vision or yellow sclerae. Ears, Nose, Throat: No hearing loss, sneezing, sore throat. SKIN: No rash or itching, lesions, wounds. CARDIOVASCULAR: + Chest burning sensation, chronic distal edema. No palpitations, orthopnea, syncopal events. RESPIRATORY: + Dyspnea, mild cough with increased phlegm. No wheezing, hemoptysis. GASTROINTESTINAL: No anorexia, nausea, vomiting or diarrhea, abdominal pain, melena, BRBPR. GENITOURINARY: No dysuria, frequency, urgency or retention. NEUROLOGICAL: No headache, dizziness, syncope, paralysis, ataxia, numbness or tingling in the extremities, focal weakness, change in bowel or bladder control,seizure. MUSCULOSKELETAL: + muscle, back pain, joint pain or stiffness. HEMATOLOGIC: + Chronic anemia. No marked easy history of bleeding or bruising. LYMPHATICS: No enlarged nodes. No history of splenectomy. PSYCHIATRIC: + History of anxiety and depression. ENDOCRINOLOGIC: No reports of sweating, cold or heat intolerance. No polyuria orpolydipsia. ALLERGIES: No history of asthma, hives, eczema or rhinitis. Vital Signs Vital Signs Vital Signs: 06/10/24 21:26 06/10/24 21:27 06/10/24 21:28 Temperature 98.4 F 98.4 F Temperature Source Oral Oral Pulse Rate 90 90 Respiratory Rate 20 H 20 H Respiratory Effort Respiratory Pattern Blood Pressure 205/91 H 205/91 H Blood Pressure Mean 129 129 Pulse Ox 84 92 95 Oxygen Delivery Method Room Air Nasal Cannula Nasal Cannula Oxygen Flow Rate (L/min) 2 2 06/10/24 21:49 06/10/24 22:08 06/10/24 22:26 Temperature Temperature Source Pulse Rate 92 99 Respiratory Rate 20 H 22 H Respiratory Effort Respiratory Pattern Tachypnea Blood Pressure 185/83 H Blood Pressure Mean 117 Pulse Ox 95 92 Oxygen Delivery Method Nasal Cannula Nasal Cannula Oxygen Flow Rate (L/min) 2 2 06/10/24 22:27 06/10/24 22:48 06/10/24 23:00 Temperature 98.2 F 98 F Temperature Source Oral Oral Pulse Rate 98 95 Respiratory Rate 18 27 H Respiratory Effort Short of Breath Labored Respiratory Pattern Tachypnea Blood Pressure 187/79 H 185/76 H Blood Pressure Mean 115 112 Pulse Ox 99 95 Oxygen Delivery Method Nasal Cannula Nasal Cannula Nasal Cannula Oxygen Flow Rate (L/min) 2 2 2 06/10/24 23:00 Temperature Temperature Source Pulse Rate 95 Respiratory Rate 24 H Respiratory Effort Respiratory Pattern Blood Pressure 185/76 H Blood Pressure Mean 112 Pulse Ox 98 Oxygen Delivery Method Oxygen Flow Rate (L/min) Weight Weight: 197 lb Body Mass Index (BMI) 34.9 Physical Exam Narrative Physical Examination: General: Awake, alert, oriented x 3 and cooperative, seated upright in ED bed, fatigued, shivering, mildly uncomfortable appearing. Skin: Normal color, normal turgor, no icterus, no cyanosis. HEENT: AT/NC, EOMI, PERRLA, moderately dry MM, no carotid bruits or JVD noted. Lungs: Diminished, greater bases, mildly increased respiratory rate but no distress, very shallow breaths secondary to pain elicited with deep inspiratory effort per discussion with patient, no appreciated rales, ronchi or wheezing. Heart: Mildly tachycardic with regular rhythm; no gallop, rub audible. Abdomen: Soft, obese, NTTP, ND, mildly hyperactive BS, no appreciated HSM. Extremities: No cyanosis, no clubbing, no marked distal edema noted, no pain with palpation bilateral calf regions. Neurological: Patient awake, alert, oriented as noted, cognitive function intact; pupils equally reactive to light and accommodation, cranial nerves grossnormal, moving all 4 extremities, no focal deficits, strength severely globally decreased secondary to acute presentation. Psychiatric: Affect appears fatigued, shivering, no acute evidence of depressiveor anxiety feelings. Results Lab / Micro Data 06/10/24 22:21 06/10/24 22:21 Labs: Laboratory Results - last 24 hr 06/10/24 22:21: WBC 11.4 H, RBC 5.01, Hgb 15.2 H, Hct 45.7, MCV 91.2, MCH 30.3, MCHC 33.3, RDW Std Deviation 46.0 H, RDW Coeff of Hiro 13.8, Plt Count 180, MPV 10.1, Immature Gran % (Auto) 0.700, Neut % (Auto) 67.6, Lymph % (Auto) 16.3 L, [place] % (Auto) 10.3 H, Eos % (Auto) 4.4, Baso % (Auto) 0.7, Absolute Neuts (auto) 7.7, Absolute Lymphs (auto) 1.86, Nucleated RBC % 0, Sodium 141, Potassium 3.3, Chloride 102, Carbon Dioxide 25.2, Anion Gap 14, BUN 21 H, Creatinine 1.34 H, Estim Creat Clear Calc 44.39 L, Est GFR (MDRD) Non-Af 44 L, BUN/Creatinine Ratio 15.4, Glucose 127 H, Calcium 9.7, Troponin T High Sens 37 H D 06/10/24 22:29: D-Dimer Quant (PE/DVT) 3.20 H* Rhythm Strip Rhythm Strip: Sinus Rhythm Rate: 95 Ectopy: None Imaging Radiology Impression Chest X-Ray 06/10/24 22:36 IMPRESSION: Generalized interstitial prominence without focal consolidation. Reading Location: [place] Assessment & Plan Assessment/Plan (1) Hypoxemia: (2) Pulmonary embolism: (3) Accelerated hypertension: PLAN: Plan The patient is a 63 y/o F w/ PMHx: Gout, Anxiety and Depression, Hypothyroidism,Rheumatoid arthritis, Fibromyalgia, Chronic migraines, Chronic pain syndrome w/ Hx spinal cord stimulator, CKD stage III unclear subtype per GFR trending, Obesity, HFpEF, GERD who presents to the [facility] ED on 06/10/24with history of dyspnea worsening over the last 6 weeks seen 4 weeks previously for it with an outpatient echocardiogram that was normal however today she feelsworse with chest burning sensation and increased phlegm in her throat and chest with persistent minor cough with no fevers or chills with dyspnea worse with exertion and unchanged lower extremity distal edema with self administration of albuterol inhaler without improvement prompting eventual ED evaluation. #1. Acute hypoxia secondary to Pulmonary Embolism: EKG without acute findings, CXR no acute process, D-dimer elevated, CTPA with acute bilateral lower lobe pulmonary emboli as above, no definite evidence of right heart strain, subtle generalized ground-glass opacities in the upper lung zones which may relate to edema/atelectasis versus pneumonitis, no focal consolidations, moderate hiatal hernia, troponin mildly elevated 37. No family history of hypercoaguable state.Patient notes no recent travel. No recent surgeries. Will admit to PCU, maintain on cardiac telemetry. ECHO performed 06/08/2024 with symptoms similar to current thus will not immediately repeat as no obvious strain on imaging. Will cycle cardiac enzymes, obtain BNP. Will continue therapeutic Lovenox regimen with pending AM insurance oral regimen investigation. COVID PCR and full respiratory panel requested. #2. Accelerated hypertension, suspected likely secondary #1: Continue home regimen including metoprolol, triamterene-hydrochlorothiazide, administered hydralazine 20 mg IV x 1 in the ED, if not improving with intervention #1 and add additional oral regimen, in the interim PRN hydralazine. #3. Indeterminate cardiac enzyme, likely associated with #1, #2, demand: Admission troponin 37, EKG with sinus rhythm with no acute evidence of ischemia,will maintain on telemetry, continue to cycle cardiac enzymes, echocardiogram recently performed 06/08/2024 as noted secondary to her recent symptoms, magnesiumlevel requested. Continue aspirin. #4. HFpEF: Noted in prior chart history, most recent echocardiogram 06/08/2024 with normal LV size, LV systolic function normal, LVEF 60%, trivial pericardial effusion, structurally normal valves, continue on baby aspirin, metoprolol, triamterene-hydrochlorothiazide, not on GURPREET/ARB nor statin therapy. #5. Chronic Kidney Disease Stage III, unclear subtype or GFR trending: Admission BUN/Cr 21/1.34, GFR 44, baseline renal function primarily 0.9-1.4, hasvacillated, repeat BMP in AM. #6. Rheumatoid arthritis: Complicated by chronic pain syndrome concurrently, per records on [facility] outpatient, previously had been on hydroxychloroquine but is no longer listed. Currently she has prednisone low-dose listed, will cautiously continue given anticoagulation as noted. Encourage continued outpatient follow-up with rheumatology as previously arranged. #7. Chronic pain syndrome chronic lumbar back pain/: History spinal cord stimulator unfortunately with previous infection, following with pain management, will continue Butrans patch, gabapentin, Leroy as needed regimen. Encourage follow-up with pain management as previously arranged. #8. Chronic iron deficiency anemia: Admission hemoglobin 15 point, MCV 91.2, baseline hemoglobin appears more recently 14 but in the past has vacillated 10-12 but labs are remote, continue iron supplementation and CBC trending. #9. Hypothyroidism: Will continue patient on levothyroxine regimen. #10. Anxiety and depression: Noted in chart history, per current list on a chronic regimen but clarified to be certain, encouraged continued outpatient follow-up as previously arranged. #11. Obesity: Weight loss and lifestyle changes encouraged. #12. GERD: Continue patient on PPI. #13. Gout: Will continue patient home allopurinol and colchicine regimen. #14. DVT prophylaxis: Will continue 80 initiated therapeutic Lovenox. #14. CODE status: Patient KEITH is her daughter who is present and living will is currently in place. Discussed CODE status at length including difference between FULL code, DNR-CCA and DNR-CC status. Following discussions about the differences in these status, requested Full Code status. Charges/Coding Visit Charges Inpatient E&M: 15820 Init Hosp L3 06/11/24 0029 <Electronically signed by Maria Garcia MD> Cosigner Signature (if applicable): CC: Dr. Maria Garcia MD; Dr. Shahab Adams DO~ Signed [facility] Work Phone: [phone] 801-517304-05-2025 Discharge summary Author Lance Loja [facility] Note Date/Time June 10, 2024 11:4 8pm [facility] Medical Records Department [address] [place] [address] Emergency Department Summary 06/10/24 MR#: [id number] Acct: [id number] Name: SAVANNAH AGUIRRE Rep #:[id number] : 1960 63 From: Lance Loja MD PCP: Dr. Shahab Adams DO Status:REG ER Location: ED HPI History of Present Illness Chief Complaint: Shortness of Breath Informant: patient Narrative Narrative: 63-year-old female states she has been out of breath for about 6 weeks. She feels like it is getting worse. She was seen here 4 weeks ago for it, advised to follow-up which she did and she had an outpatient echocardiogram that was normal but today she is much worse and feels like she had some chest burning andsome phlegm in her throat and chest. She has had a minor cough today only, but in the past month she has not had a cough, fevers or chills, or any other symptoms other than the dyspnea mostly with exertion. She has some leg edema but it has not been any different in the last month. No known history of COPD never smoker, however she had an albuterol inhaler at home that she tried a couple times a day and it helped a little. [facility] Medical History Post-menopausal Depression Anxiety Thyroid disease Anemia Gastric reflux Non-smoker Leg cramps History of pain when walking Hypothyroid CKD (chronic kidney disease) Hypertension Infection of spinal cord stimulator Rheumatoid arthritis Chronic pain Arthritis Fibromyalgia Migraines Home Medications ?Medication ?Instructions ?Recorded ?Last Taken ?Type buprenorphine 20 mcg/hour weekly 1 patch transdermal Q WEEK PAIN 01/13/21 05/28/22 History transdermal patch (Butrans) hydrocodone-acetaminophen 5-325mg 1 tab PO Q6H PRN Jess n 01/13/21 11/13/22 07:00 History 5mg-325mg levothyroxine 88 mcg tablet 100 mcg PO DAILY 01/13/21 06/01/22 History (Synthroid) omeprazole 40 mg capsule,delayed 40 mg PO DAILY 06/01/22 History release potassium chloride 20 mEq 20 meq PO TID SUPPLEMENT 09/2606/01/22 History tablet,extended release(part/cryst) triamterene 37.5 1 cap PO DAILY Check with pr imary 01/13/21 06/01/22 History mg-hydrochlorothiazide 25 mg doctor capsule gabapentin 400 mg capsule 400 mg PO TID PAIN 05/08/21 06/01/22 History cholecalciferol (vitamin D3) 125 125 mcg PO DAILY SUPP LEMENT 06/01/22 06/01/22 History mcg (5,000 unit) capsule albuterol sulfate 90 mcg/actuation 2 puff inhalation Q 4H PRN 10/22/22 Unknown History aerosol inhaler (ProAir HFA) shortness of breath or wh eezing ferrous gluconate 324 mg (37.5 mg 324 mg PO DAILY 10/07 08/29 Unknown History iron) tablet magnesium 250 mg tablet 400 mg PO DINNER SUPPLEMENT 10/22/22 Unknown History PRIMAL DEFENCE 410 mg PO 1XD 11/12/22 Unkno wn History metoprolol succinate 50 mg 50 mg PO QHS 11/13/22 Unkno wn History tablet,extended release 24 hr adalimumab 40 mg/0.8 mL 40 mg subcut .1XWEEK 5 Unknown History subcutaneous pen kit (Humira Pen) allopurinol 300 mg tablet 300 mg PO DAILY 06/10/24 Unk nown History colchicine 0.6 mg tablet 0.6 mg PO DAILY 06/10/24 Unk nown History prednisone 5 mg tablet 15 mg PO DAILY 06/10/24 Unkn own History Allergy/AdvReac Type Severity Reaction Status Date / Time oxycodone Allergy Rash Verified 06/10/24 21:28 adhesive tape AdvReac Rash Verified 06/10/24 21:28 Family History Mother Hypertension Colon polyps Surgical History Hx of hysterectomy History of carpal tunnel release Hx of thyroidectomy Hx of cholecystectomy Hx of tonsillectomy Social History household members: none Smoking Status: Never smoker alcohol intake: never substance use type: does not use ROS ROS ED Constitutional Constitutional ED: Denies chills or fever(s) Eyes Eyes: Denies change in vision or diplopia ENT ENT ED: Reports other Details: Postnasal drip and phlegmy just today ; Denies rhinorrhea or sore throat Cardiovascular Cardiovascular: Reports chest pain and leg edema; Denies orthopnea, palpitationsor syncope Respiratory/Chest Respiratory/Chest: Reports dyspnea and dyspnea on exertion; Denies cough or orthopnea Gastrointestinal Gastrointestinal: Denies abdominal pain, diarrhea, nausea or vomiting Genitourinary Genitourinary ED: Denies dysuria or hematuria Musculoskeletal Musculoskeletal: Reports arthralgias and back pain; Denies neck pain Integumentary Denies abscess or rash Neurologic Neurologic: Denies headache(s), paresthesias or weakness Psychiatric Psychiatric: Denies suicidal thoughts EXAM Physical Exam Const Vital Signs: 06/10/24 21:26 06/10/24 21:27 06/10/24 21:28 Temperature 98.4 F 98.4 F Temperature Source Oral Oral Pulse Rate 90 90 Respiratory Rate 20 H 20 H Respiratory Effort Respiratory Pattern Blood Pressure 205/91 H 205/91 H Blood Pressure Mean 129 129 Pulse Ox 84 92 95 Oxygen Delivery Method Room Air Nasal Cannula Nasal Cannula Oxygen Flow Rate (L/min) 2 2 06/10/24 21:49 06/10/24 22:08 06/10/24 22:26 Temperature Temperature Source Pulse Rate 92 99 Respiratory Rate 20 H 22 H Respiratory Effort Respiratory Pattern Tachypnea Blood Pressure 185/83 H Blood Pressure Mean 117 Pulse Ox 95 92 Oxygen Delivery Method Nasal Cannula Nasal Cannula Oxygen Flow Rate (L/min) 2 2 06/10/24 22:27 06/10/24 22:48 06/10/24 23:00 Temperature 98.2 F 98 F Temperature Source Oral Oral Pulse Rate 98 95 Respiratory Rate 18 27 H Respiratory Effort Short of Breath Labored Respiratory Pattern Tachypnea Blood Pressure 187/79 H 185/76 H Blood Pressure Mean 115 112 Pulse Ox 99 95 Oxygen Delivery Method Nasal Cannula Nasal Cannula Nasal Cannula Oxygen Flow Rate (L/min) 2 2 2 06/10/24 23:00 06/10/24 23:45 Temperature 98.6 F Temperature Source Pulse Rate 95 97 Respiratory Rate 24 H 38 H Respiratory Effort Respiratory Pattern Blood Pressure 185/76 H 185/83 H Blood Pressure Mean 112 117 Pulse Ox 98 91 Oxygen Delivery Method Oxygen Flow Rate (L/min) Positive well nourished and well developed General Appearance ED: well developed and NAD HEENT Reports moist mucous membranes normocephalic and atraumatic Eyes PERRL and EOMs intact bilaterally Neck full ROM and supple Resp normal respiratory effort and clear to auscultation bilaterally Cardio regular rate, regular rhythm and no murmurs GI non-tender and non-distended Auscultation: normoactive bowel sounds Palpation: soft Back/Spine no CVA tenderness General Back: other FROM Extremity normal to inspection General Extremety ED: Yes edema; Negative for pulses abnormal or tenderness General Extremity: edema bilateral lower extremity Details: mild; Negative for pulses abnormal Neuro oriented x3, CN's II-XII intact bilaterally and no sensory deficits noted Sensorium / Orientation: awake and alert Motor Exam: strength 5/5 throughout Psych mental status grossly normal Skin no rashes or lesions noted and no wounds MDM MDM MDM Narrative Medical decision making narrative: Patient 84% on room air in triage so nurses put her on O2 liter nasal cannula she is 95%. Is very hypertensive so going to treat that while working her up and giving her a duo nebulizer treatment. Also after reviewing her prior ED visit, she was ruled out for acute heart failure, pneumonia, ACS but a D-dimer was not obtained, she is low risk for pulmonary embolus has never had a DVT or PE, has no sign of recurrent DVT, no recent long travel, immobilization, or surgery so she is appropriate for a D-dimer. This was done and significantly elevated, so I sent her for stat CTA of the chest, and I reviewed the images upon her arriving back in the room, on my interpretation it shows a central right pulmonary artery embolus and at least 1 subsegmental embolus in the left lung, so I ordered Lovenox 1 mg/kg, discussed with her and family, given her hypoxemia she should be admitted. She is currently 92% on 2 L nasal cannula. Her blood pressure has come down to 166/84. She will need Dopplers of her legs but that is not available at the hour the patient is here. The source of this is unknown at this time. History & Record Review Additional record(s) reviewed:: Prior ED visit and Other (Outpatient echo from today: Normal including normal EF) Lab Data Attestation: I reviewed the patient's lab results. Labs: Laboratory Results - last 24 hr 06/10/24 06/10/24 22:21 22:29 WBC 11.4 H RBC 5.01 Hgb 15.2 H Hct 45.7 MCV 91.2 MCH 30.3 MCHC 33.3 RDW Std Deviation 46.0 H RDW Coeff of Hiro 13.8 Plt Count 180 MPV 10.1 Immature Gran % (Auto) 0.700 Neut % (Auto) 67.6 Lymph % (Auto) 16.3 L [place] % (Auto) 10.3 H Eos % (Auto) 4.4 Baso % (Auto) 0.7 Absolute Neuts (auto) 7.7 Absolute Lymphs (auto) 1.86 Nucleated RBC % 0 D-Dimer Quant (PE/DVT) 3.20 H* Sodium 141 Potassium 3.3 Chloride 102 Carbon Dioxide 25.2 Anion Gap 14 BUN 21 H Creatinine 1.34 H Estim Creat Clear Calc 44.39 L Est GFR (MDRD) Non-Af 44 L BUN/Creatinine Ratio 15.4 Glucose 127 H Calcium 9.7 Troponin T High Sens 37 H D Radiography Diagnostic Testing: Clinical Impression(s) from Imaging Studies Chest X-Ray 06/10/24 22:36 IMPRESSION: Generalized interstitial prominence without focal consolidation. [facility] Rhythm Strip Rhythm Strip: Sinus Rhythm Rate: 95 Ectopy: None EKG Initial EKG: Attestation: I personally reviewed and interpreted this EKG as follows: Interpretation: Sinus Rhythm and No Acute Injury Pattern Comments: RSR' otherwise nml EKG Management Discussion w/another healthcare provider: Hospitalist and Radiologist (Dr. Moreira, called to discuss findings of pulmonary embolism bilat) Discharge Plan Dx/Rx/DC Orders Clinical Impression: Pulmonary embolism, Hypoxemia, Accelerated hypertension Disposition Disposition: [facility] What to do if you have Problems For any increased pain, shortness of breath, bleeding, nausea or vomiting, chestpain, or any unexpected problems, contact your Primary Care Provider. Call [facility] ([phone]) or report to the closest Emergency Room. Call 911 if necessary. 06/10/24 5711 <Electronically signed by Lance Loja MD> Cosigner Signature (if applicable): CC: Dr. Shahab Adams, DO ~ Signed [facility] Work Phone: 1(389) 636-774304-05-2025 Evaluation note* Diagnosis Onset Date Resolution Status Admit Date Accelerated hypertension acute June 10, 2024 11:48pm Hypoxemia acute June 10 11:48pm Pulmonary embolism acute June 10, 2024 11:48pm [facility] Work Phone: [phone]) [phone] Evaluation note* Diagnosis Onset Date Resolution Status Admit Date Hypoxemia acute June 10 11:48pm Pulmonary embolism acute June 10, 2024 11:48pm Accelerated hypertension resolved June 10, 2024 11:48pm Acute bronchospasm acute June 27, 2024 4:09pm Anticoagulant long-term use acute June 27, 2024 4:09pm Elevated blood-pressure read ing without diagnosis of hypertension acute June 27, 2024 4:09pm History of hypothyroidism acute June 27, 2024 4:09pm Left lower lobe pneumonia acute June 27, 2024 4:09pm Pulmonary embolus acute June 082024 4:09pm Sinus tachycardia acute June 082024 4:09pm SIRS (systemic inflammatory response syndrome) acute June 27, 025 4:09pm Acute on chronic hypoxic respiratory failure chronic June 27, 2024 4:09pm [facility] Work Phone: [phone]) 157-653504-05-2025 Evaluation note* Diagnosis Onset Date Resolution Status Admit Date Hypoxemia acute June 10 11:48pm Pulmonary embolism acute June 10, 2024 11:48pm Accelerated hypertension resolved June 10, 2024 11:48pm Acute bronchospasm inactive June 27, 2024 4:09pm Acute on chronic hypoxic respiratory failure inactive June 27, 2024 4:09pm Anticoagulant long-term use inactive June 27, 2024 4:09pm Elevated blood-pressure read ing without diagnosis of hypertension inactive June 27, 2024 4:09pm History of hypothyroidism inactive June 27, 2024 4:09pm Left lower lobe pneumonia inactive June 27, 2024 4:09pm Pulmonary embolus inactive June 082024 4:09pm Sinus tachycardia inactive June 082024 4:09pm SIRS (systemic inflammatory response syndrome) inactive June 27, 2 025 4:09pm Hypoxemia acute July 20, 2024 10:08am JEANA (obstructive sleep apnea) acute July 20, 2024 10:08am Pulmonary embolism acute July 202024 10:08am SOB (shortness of breath) acute July 20, 2024 10:08am [facility] Work Phone: [phone]) 712-982304-05-2025 Evaluation note* Diagnosis Onset Date Resolution Status Admit Date Hypoxemia acute June 10 11:48pm Pulmonary embolism acute June 10, 2024 11:48pm Accelerated hypertension resolved June 10, 2024 11:48pm Acute bronchospasm inactive June 27, 2024 4:09pm Acute on chronic hypoxic respiratory failure inactive June 27, 2024 4:09pm Anticoagulant long-term use inactive June 27, 2024 4:09pm Elevated blood-pressure read ing without diagnosis of hypertension inactive June 27, 2024 4:09pm History of hypothyroidism inactive June 27, 2024 4:09pm Left lower lobe pneumonia inactive June 27, 2024 4:09pm Pulmonary embolus inactive June 082024 4:09pm Sinus tachycardia inactive June 082024 4:09pm SIRS (systemic inflammatory response syndrome) inactive June 27, 2 025 4:09pm Hypoxemia acute July 20, 2024 10:08am Pulmonary embolism acute July 202024 10:08am SOB (shortness of breath) acute July 20, 2024 10:08am JEANA (obstructive sleep apnea) [place] July 20, 2024 10:08am [facility] Work Phone: [phone] 813-132704-05-2025 Evaluation note* Diagnosis Onset Date Resolution Status Admit Date Hypoxemia acute June 10 11:48pm Pulmonary embolism acute June 10, 2024 11:48pm Accelerated hypertension resolved June 10, 2024 11:48pm Acute bronchospasm inactive June 27, 2024 4:09pm Acute on chronic hypoxic respiratory failure inactive June 27, 2024 4:09pm Anticoagulant long-term use inactive June 27, 2024 4:09pm Elevated blood-pressure read ing without diagnosis of hypertension inactive June 27, 2024 4:09pm History of hypothyroidism inactive June 27, 2024 4:09pm Left lower lobe pneumonia inactive June 27, 2024 4:09pm Pulmonary embolus inactive June 082024 4:09pm Sinus tachycardia inactive June 082024 4:09pm SIRS (systemic inflammatory response syndrome) inactive June 27, 025 4:09pm Hypoxemia acute July 20, 2024 10:08am Pulmonary embolism acute July 202024 10:08am SOB (shortness of breath) acute July 20, 2024 10:08am JEANA (obstructive sleep apnea) [place] July 20, 2024 10:08am Acidosis, lactic acute July 2:55pm Anticoagulant long-term use acute August 01, 2024 2:55pm Multilobar lung infiltrate acute August 01, 2024 2:55pm Pneumonia acute August 01, 2024 2:55pm Sepsis acute August 01, 2024 2:55pm Sinus tachycardia seen on electronic device monitor acute August 01, 2024 2 :55pm Tachypnea acute August 01, 2024 2:55pm Chronic respiratory failure with hypoxia chronic August 01, 2024 2 :55pm [facility] Work Phone: [phone] Evaluation note* Diagnosis Onset Date Resolution Status Admit Date Hypoxemia acute June 10 11:48pm Pulmonary embolism acute June 10, 2024 11:48pm Accelerated hypertension resolved June 10, 2024 11:48pm Acute bronchospasm inactive June 27, 2024 4:09pm Acute on chronic hypoxic respiratory failure inactive June 27, 2024 4:09pm Anticoagulant long-term use inactive June 27, 2024 4:09pm Elevated blood-pressure read ing without diagnosis of hypertension inactive June 27, 2024 4:09pm History of hypothyroidism inactive June 27, 2024 4:09pm Left lower lobe pneumonia inactive June 27, 2024 4:09pm Pulmonary embolus inactive June 082024 4:09pm Sinus tachycardia inactive June 082024 4:09pm SIRS (systemic inflammatory response syndrome) inactive June 27, 2 025 4:09pm Hypoxemia acute July 20, 2024 10:08am Pulmonary embolism acute July 202024 10:08am SOB (shortness of breath) acute July 20, 2024 10:08am JEANA (obstructive sleep apnea) [place] July 20, 2024 10:08am Acidosis, lactic acute July 3:04pm Anticoagulant long-term use acute August 01, 2024 3:04pm Multilobar lung infiltrate acute August 01, 2024 3:04pm Pneumonia acute August 01, 2024 3:04pm Sepsis acute August 01, 2024 3:04pm Sinus tachycardia seen on electronic device monitor acute August 01, 2024 3 :04pm Tachypnea acute August 01, 2024 3:04pm Chronic respiratory failure with hypoxia chronic August 01, 2024 3 :04pm [facility] Work Phone: [phone] Evaluation note* Diagnosis Onset Date Resolution Status Admit Date Hypoxemia acute June 10 11:48pm Pulmonary embolism acute June 10, 2024 11:48pm Accelerated hypertension resolved June 10, 2024 11:48pm Acute bronchospasm inactive June 27, 2024 4:09pm Acute on chronic hypoxic respiratory failure inactive June 27, 2024 4:09pm Anticoagulant long-term use inactive June 27, 2024 4:09pm Elevated blood-pressure read ing without diagnosis of hypertension inactive June 27, 2024 4:09pm History of hypothyroidism inactive June 27, 2024 4:09pm Left lower lobe pneumonia inactive June 27, 2024 4:09pm Pulmonary embolus inactive June 082024 4:09pm Sinus tachycardia inactive June 082024 4:09pm SIRS (systemic inflammatory response syndrome) inactive June 27, 2 025 4:09pm Hypoxemia acute July 20, 2024 10:08am Pulmonary embolism acute July 202024 10:08am SOB (shortness of breath) acute July 20, 2024 10:08am JEANA (obstructive sleep apnea) [place] July 20, 2024 10:08am Acidosis, lactic acute July 3:04pm Anticoagulant long-term use acute August 01, 2024 3:04pm Multilobar lung infiltrate acute August 01, 2024 3:04pm Pneumonia acute August 01, 2024 3:04pm Sepsis acute August 01, 2024 3:04pm Sinus tachycardia seen on electronic device monitor acute August 01, 2024 3 :04pm SOB (shortness of breath) acute August 01, 2024 3:04pm Tachypnea acute August 01, 2024 3:04pm Chronic respiratory failure with hypoxia chronic August 01, 2024 3 :04pm [facility] Work Phone: [phone] Evaluation note* Diagnosis Onset Date Resolution Status Admit Date Hypoxemia acute June 10 11:48pm Pulmonary embolism acute June 10, 2024 11:48pm Accelerated hypertension resolved June 10, 2024 11:48pm Acute bronchospasm inactive June 27, 2024 4:09pm Acute on chronic hypoxic respiratory failure inactive June 27, 2024 4:09pm Anticoagulant long-term use inactive June 27, 2024 4:09pm Elevated blood-pressure read ing without diagnosis of hypertension inactive June 27, 2024 4:09pm History of hypothyroidism inactive June 27, 2024 4:09pm Left lower lobe pneumonia inactive June 27, 2024 4:09pm Pulmonary embolus inactive June 082024 4:09pm Sinus tachycardia inactive June 082024 4:09pm SIRS (systemic inflammatory response syndrome) inactive June 27, 2 025 4:09pm Hypoxemia acute July 20, 2024 10:08am Pulmonary embolism acute July 202024 10:08am JEANA (obstructive sleep apnea) [place] July 20, 2024 10:08am SOB (shortness of breath) inactive July 20, 2024 10:08am Acidosis, lactic resolved July 3:04pm Sepsis resolved August 01, 2024 3:04pm Sinus tachycardia seen on electronic device monitor resolved August 01, 2024 3 :04pm Tachypnea resolved August 01, 2024 3:04pm Anticoagulant long-term use inactive August 01, 2024 3:04pm Chronic respiratory failure with hypoxia inactive August 01, 2024 3 :04pm Multilobar lung infiltrate inactive August 01, 2024 3:04pm Pneumonia inactive August 01, 2024 3:04pm SOB (shortness of breath) inactive August 01, 2024 3:04pm [facility] Work Phone: 1(859) 911-273104-05-2025 Evaluation note* Diagnosis Onset Date Resolution Status Admit Date Hypoxemia acute June 10 11:48pm Pulmonary embolism acute June 10, 2024 11:48pm Accelerated hypertension resolved June 10, 2024 11:48pm Acute bronchospasm inactive June 27, 2024 4:09pm Acute on chronic hypoxic respiratory failure inactive June 27, 2024 4:09pm Anticoagulant long-term use inactive June 27, 2024 4:09pm Elevated blood-pressure read ing without diagnosis of hypertension inactive June 27, 2024 4:09pm History of hypothyroidism inactive June 27, 2024 4:09pm Left lower lobe pneumonia inactive June 27, 2024 4:09pm Pulmonary embolus inactive June 082024 4:09pm Sinus tachycardia inactive June 082024 4:09pm SIRS (systemic inflammatory response syndrome) inactive June 27, 2 025 4:09pm Hypoxemia acute July 20, 2024 10:08am Pulmonary embolism acute July 202024 10:08am JEANA (obstructive sleep apnea) [place] July 20, 2024 10:08am SOB (shortness of breath) inactive July 20, 2024 10:08am Acidosis, lactic resolved July 3:04pm Sepsis resolved August 01, 2024 3:04pm Sinus tachycardia seen on electronic device monitor resolved August 01, 2024 3 :04pm Tachypnea resolved August 01, 2024 3:04pm Anticoagulant long-term use inactive August 01, 2024 3:04pm Chronic respiratory failure with hypoxia inactive August 01, 2024 3 :04pm Multilobar lung infiltrate inactive August 01, 2024 3:04pm Pneumonia inactive August 01, 2024 3:04pm SOB (shortness of breath) inactive August 01, 2024 3:04pm Pulmonary embolism acute August 072024 10:36am [facility] Work Phone: [phone] 353-580804-05-2025 History and physical note [facility] Medical Records Department [address] [place] [address] H&P Exam - Hospitalist 06/10/24 2345 MR#: [id number] Acct: [id number] Name: SAVANNAH AGUIRRE Rep #:[id number] : 1960 63 From: Maria Garcia MD PCP: Dr. Shahab Adams, DO Status:ADM IN Location: [place] [address] HPI - General General Date of Admission: 06/11/24 Date of Service: 06/10/24 Chief Complaint: Dyspnea, chest pain. HPI Narrative The patient is a 63 y/o F w/ PMHx: Gout, Anxiety and Depression, Hypothyroidism,Rheumatoid arthritis, Fibromyalgia, Chronic migraines, Chronic pain syndrome w/ Hx spinal cord stimulator, CKD stage III unclear subtype per GFR trending, Obesity, HFpEF, GERD who presents to the [facility] ED on 06/10/24with history of dyspnea worsening over the last 6 weeks seen 4 weeks previously for it with an outpatient echocardiogram that was normal however today she feelsworse with chest burningsensation and increased phlegm in her throat and chest with persistent minor cough with no fevers or chills with dyspnea worse with exertion and unchanged lower extremity distal edema with self administration of albuterol inhaler without improvement prompting eventual ED evaluation. Patientreports chest discomfort primarily with deep inspiratory effort. She has been purposely taking more shallow breaths secondary to this. To the ED staff upon presentation she does report congestion and rhinorrhea. Per weight upon currentpresentation 197 pounds and noted to be on 05/09/2024 also 197 pounds. Patient denies any recent pain to her bilateral lower extremity/calf regions. She denies any severe swelling even transient to her legs. Workup in the ED included T98.4, heart 90, BP 205/91, respiratory rate 20, 84% on room air with improvement to 95% on 2 L nasal cannula, CBC with WBC 11.4, hemoglobin 1 5.2, platelet 180 without marked shift, D-dimer 3.20, troponin 37, BMP with BUN/creat21/1.34, GFR 44, glucose 127 chest x-ray with generalized interstitial prominence without focal consolidation, CTPA with acute bilateral lower lobe pulmonary emboli as above, no definite evidence of right heart strain, subtle generalized ground-glass opacities in the upper lung zones which may relate to edema/atelectasis versus pneumonitis, no focal consolidations, moderate hiatal hernia, EKG sinus rhythm with no acute evidence of ischemia. In the ED patient administered Reglan 5 mg IV x 1, DuoNeb therapy, hydralazine 20 mg IV x 1 and Lovenox 90 mg subcu x 1. PFSH Medical History Post-menopausal Depression Anxiety Thyroid disease Anemia Gastric reflux Non-smoker Leg cramps History of pain when walking Hypothyroid CKD (chronic kidney disease) Hypertension Infection of spinal cord stimulator Rheumatoid arthritis Chronic pain Arthritis Fibromyalgia Migraines Home Medications ?Medication ?Instructions ?Recorded ?Last Taken ?Type buprenorphine 20 mcg/hour weekly 1 patch transdermal Q WEEK PAIN 01/13/21 05/28/22 History transdermal patch (Butrans) hydrocodone-acetaminophen 5-325mg 1 tab PO Q6H PRN Jess n 01/13/21 11/13/22 07:00 History 5mg-325mg levothyroxine 88 mcg tablet 100 mcg PO DAILY 01/13/21 06/01/22 History (Synthroid) omeprazole 40 mg capsule,delayed 40 mg PO DAILY 06/01/22 History release potassium chloride 20 mEq 20 meq PO TID SUPPLEMENT 09/2606/01/22 History tablet,extended release(part/cryst) triamterene 37.5 1 cap PO DAILY Check with pr imary 01/13/21 06/01/22 History mg-hydrochlorothiazide 25 mg doctor capsule gabapentin 400 mg capsule 400 mg PO TID PAIN 05/08/21 06/01/22 History cholecalciferol (vitamin D3) 125 125 mcg PO DAILY SUPP LEMENT 06/01/22 06/01/22 History mcg (5,000 unit) capsule albuterol sulfate 90 mcg/actuation 2 puff inhalation Q 4H PRN 10/22/22 Unknown History aerosol inhaler (ProAir HFA) shortness of breath or wh eezing ferrous gluconate 324 mg (37.5 mg 324 mg PO DAILY 10/07 08/29 Unknown History iron) tablet magnesium 250 mg tablet 400 mg PO DINNER SUPPLEMENT 10/22/22 Unknown History PRIMAL DEFENCE 410 mg PO 1XD 11/12/22 Unkno wn History metoprolol succinate 50 mg 50 mg PO QHS 11/13/22 Unkno wn History tablet,extended release 24 hr adalimumab 40 mg/0.8 mL 40 mg subcut .1XWEEK 5 Unknown History subcutaneous pen kit (Humira Pen) allopurinol 300 mg tablet 300 mg PO DAILY 06/10/24 Unk nown History colchicine 0.6 mg tablet 0.6 mg PO DAILY 06/10/24 Unk nown History prednisone 5 mg tablet 15 mg PO DAILY 06/10/24 Unkn own History Allergy/AdvReac Type Severity Reaction Status Date / Time oxycodone Allergy Rash Verified 06/10/24 21:28 adhesive tape AdvReac Rash Verified 06/10/24 21:28 Family History (Updated 06/11/24 @ 00:[address] Maria Garcia MD) Mother Hypertension Colon polyps Father Lymphoma Surgical History Hx of hysterectomy History of carpal tunnel release Hx of thyroidectomy Hx of cholecystectomy Hx of tonsillectomy Social History household members: none Smoking Status: Never smoker alcohol intake: never substance use type: does not use ROS ROS Narrative Admission Review of Systems: CONSTITUTIONAL: No weight loss, fever, chills, + weakness or fatigue. HEENT: + Congestion, rhinorrhea. Eyes: No visual loss, blurred vision, double vision or yellow sclerae. Ears, Nose, Throat: No hearing loss, sneezing, sore throat. SKIN: No rash or itching, lesions, wounds. CARDIOVASCULAR: + Chest burning sensation, chronic distal edema. No palpitations, orthopnea, syncopal events. RESPIRATORY: + Dyspnea, mild cough with increased phlegm. No wheezing, hemoptysis. GASTROINTESTINAL: No anorexia, nausea, vomiting or diarrhea, abdominal pain, melena, BRBPR. GENITOURINARY: No dysuria, frequency, urgency or retention. NEUROLOGICAL: No headache, dizziness, syncope, paralysis, ataxia, numbness or tingling in the extremities, focal weakness, change in bowel or bladder control,seizure. MUSCULOSKELETAL: + muscle, back pain, joint pain or stiffness. HEMATOLOGIC: + Chronic anemia. No marked easy history of bleeding or bruising. LYMPHATICS: No enlarged nodes. No history of splenectomy. PSYCHIATRIC: + History of anxiety and depression. ENDOCRINOLOGIC: No reports of sweating, cold or heat intolerance. No polyuria orpolydipsia. ALLERGIES: No history of asthma, hives, eczema or rhinitis. Vital Signs Vital Signs Vital Signs: 06/10/24 21:26 06/10/24 21:27 06/10/24 21:28 Temperature 98.4 F 98.4 F Temperature Source Oral Oral Pulse Rate 90 90 Respiratory Rate 20 H 20 H Respiratory Effort Respiratory Pattern Blood Pressure 205/91 H 205/91 H Blood Pressure Mean 129 129 Pulse Ox 84 92 95 Oxygen Delivery Method Room Air Nasal Cannula Nasal Cannula Oxygen Flow Rate (L/min) 2 2 06/10/24 21:49 06/10/24 22:08 06/10/24 22:26 Temperature Temperature Source Pulse Rate 92 99 Respiratory Rate 20 H 22 H Respiratory Effort Respiratory Pattern Tachypnea Blood Pressure 185/83 H Blood Pressure Mean 117 Pulse Ox 95 92 Oxygen Delivery Method Nasal Cannula Nasal Cannula Oxygen Flow Rate (L/min) 2 2 06/10/24 22:27 06/10/24 22:48 06/10/24 23:00 Temperature 98.2 F 98 F Temperature Source Oral Oral Pulse Rate 98 95 Respiratory Rate 18 27 H Respiratory Effort Short of Breath Labored Respiratory Pattern Tachypnea Blood Pressure 187/79 H 185/76 H Blood Pressure Mean 115 112 Pulse Ox 99 95 Oxygen Delivery Method Nasal Cannula Nasal Cannula Nasal Cannula Oxygen Flow Rate (L/min) 2 2 2 06/10/24 23:00 Temperature Temperature Source Pulse Rate 95 Respiratory Rate 24 H Respiratory Effort Respiratory Pattern Blood Pressure 185/76 H Blood Pressure Mean 112 Pulse Ox 98 Oxygen Delivery Method Oxygen Flow Rate (L/min) Weight Weight: 197 lb Body Mass Index (BMI) 34.9 Physical Exam Narrative Physical Examination: General: Awake, alert, oriented x 3 and cooperative, seated upright in ED bed, fatigued, shivering,mildly uncomfortable appearing. Skin: Normal color, normal turgor, no icterus, no cyanosis. HEENT: AT/NC, EOMI, PERRLA, moderately dry MM, no carotid bruits or JVD noted. Lungs: Diminished, greater bases, mildly increased respiratory rate but no distress, very shallow breaths secondary to pain elicited with deep inspiratory effort per discussion with patient, no appreciated rales, ronchi or wheezing. Heart: Mildly tachycardic with regular rhythm; no gallop, rub audible. Abdomen: Soft, obese, NTTP, ND, mildly hyperactive BS, no appreciated HSM. Extremities: No cyanosis, no clubbing, no marked distal edema noted, no pain with palpation bilateral calf regions. Neurological: Patient awake, alert, oriented as noted, cognitive function intact; pupils equally reactive to light and accommodation, cranial nerves grossnormal, moving all 4 extremities, no focal deficits, strength severely globally decreased secondary to acute presentation. Psychiatric: Affect appears fatigued, shivering, no acute evidence of depressiveor anxiety feelings. Results Lab / Micro Data 06/10/24 22:21 06/10/24 22:21 Labs: Laboratory Results - last 24 hr 06/10/24 22:21: WBC 11.4 H, RBC 5.01, Hgb 15.2 H, Hct 45.7, MCV 91.2, MCH 30.3, MCHC 33.3, RDW Std Deviation 46.0 H, RDW Coeff of Hiro 13.8, Plt Count 180, MPV 10.1, Immature Gran % (Auto) 0.700, Neut% (Auto) 67.6, Lymph % (Auto) 16.3 L, [place] % (Auto) 10.3 H, Eos % (Auto) 4.4, Baso % (Auto) 0.7, Absolute Neuts (auto) 7.7, Absolute Lymphs (auto) 1.86, Nucleated RBC % 0, Sodium 141, Potassium 3.3, Chloride 102, Carbon Dioxide 25.2, Anion Gap 14, BUN 21 H, Creatinine 1.34 H, Estim Creat Clear Calc44.39 L, Est GFR (MDRD) Non-Af 44 L, BUN/Creatinine Ratio 15.4, Glucose 127 H, Calcium 9.7, Troponin T High Sens 37 H D 06/10/24 22:29: D-Dimer Quant (PE/DVT) 3.20 H* Rhythm Strip Rhythm Strip: Sinus Rhythm Rate: 95 Ectopy: None Imaging Radiology Impression Chest X-Ray 06/10/24 22:36 IMPRESSION: Generalized interstitial prominence without focal consolidation. Reading Location: [facility] Assessment & Plan Assessment/Plan (1) Hypoxemia: (2) Pulmonary embolism: (3) Accelerated hypertension: PLAN: Plan The patient is a 63 y/o F w/ PMHx: Gout, Anxiety and Depression, Hypothyroidism,Rheumatoid arthritis, Fibromyalgia, Chronic migraines, Chronic pain syndrome w/ Hx spinal cord stimulator, CKD stage III unclear subtype per GFR trending, Obesity, HFpEF, GERD who presents to the [facility] ED on 06/10/24with history of dyspnea worsening over the last 6 weeks seen 4 weeks previously for it with an outpatient echocardiogram that was normal however today she feelsworse with chest burningsensation and increased phlegm in her throat and chest with persistent minor cough with no fevers or chills with dyspnea worse with exertion and unchanged lower extremity distal edema with self administration of albuterol inhaler without improvement prompting eventual ED evaluation. #1. Acute hypoxia secondary to Pulmonary Embolism: EKG without acute findings, CXR no acute process, D-dimer elevated, CTPA with acute bilateral lower lobe pulmonary emboli as above, no definite evidence of right heart strain, subtle generalized ground-glass opacities in the upper lung zones which may relate to edema/atelectasis versus pneumonitis, no focal consolidations, moderate hiatal hernia,troponin mildly elevated 37. No family history of hypercoaguable state.Patient notes no recent travel. No recent surgeries. Will admit to PCU, maintain on cardiac telemetry. ECHO performed 06/08/2024 with symptoms similar to current thus will not immediately repeat as no obvious strain on imaging. Will cycle cardiac enzymes, obtain BNP. Will continue therapeutic Lovenox regimen with pending AM insurance oral regimen investigation. COVID PCR and full respiratory panel requested. #2. Accelerated hypertension, suspected likely secondary #1: Continue home regimen including metoprolol, triamterene-hydrochlorothiazide, administered hydralazine 20 mg IV x 1 in the ED, if not improving with intervention #1 and add additional oral regimen, in the interim PRN hydralazine. #3. Indeterminate cardiac enzyme, likely associated with #1, #2, demand: Admission troponin 37, EKGwith sinus rhythm with no acute evidence of ischemia,will maintain on telemetry, continue to cycle cardiac enzymes, echocardiogram recently performed 06/08/2024 as noted secondary to her recent symptoms, magnesiumlevel requested. Continue aspirin. #4. HFpEF: Noted in prior chart history, most recent echocardiogram 06/08/2024 with normal LV size, LV systolic function normal, LVEF 60%, trivial pericardial effusion, structurally normal valves, continue on baby aspirin, metoprolol, triamterene-hydrochlorothiazide, not on GURPREET/ARB nor statin therapy. #5. Chronic Kidney Disease Stage III, unclear subtype or GFR trending: Admission BUN/Cr 21/1.34, GFR 44, baseline renal function primarily 0.9-1.4, hasvacillated, repeat BMP in AM. #6. Rheumatoid arthritis: Complicated by chronic pain syndrome concurrently, per records on [facility] outpatient, previously had been on hydroxychloroquine but is no longer listed. Currently she has prednisone low-dose listed, will cautiously continue given anticoagulation as noted. Encourage continued outpatient follow- up with rheumatology as previously arranged. #7. Chronic pain syndrome chronic lumbar back pain/: History spinal cord stimulator unfortunately with previous infection, following with pain management, will continue Butrans patch, gabapentin, Leroy as needed regimen. Encourage follow-up with pain management as previously arranged. #8. Chronic iron deficiency anemia: Admission hemoglobin 15 point, MCV 91.2, baseline hemoglobin appears more recently 14 but in the past has vacillated 10- 12 but labs are remote, continue iron supplementation and CBC trending. #9. Hypothyroidism: Will continue patient on levothyroxine regimen. #10. Anxiety and depression: Noted in chart history, per current list on a chronic regimen but clarified to be certain, encouraged continued outpatient follow-up as previously arranged. #11. Obesity: Weight loss and lifestyle changes encouraged. #12. GERD: Continue patient on PPI. #13. Gout: Will continue patient home allopurinol and colchicine regimen. #14. DVT prophylaxis: Will continue 80 initiated therapeutic Lovenox. #14. CODE status: Patient KEITH is her daughter who is present and living will is currently in place. Discussed CODE status at length including difference between FULL code, DNR-CCA and DNR-CC status. Following discussions about the differences in these status, requested Full Code status. Charges/Coding Visit Charges Inpatient E&M: 70537 Init Hosp L3 06/11/24 0029 Cosigner Signature (if applicable): CC: Dr. Maria Garcia MD; Dr. Shahab Adams, DO~ Signed [facility]04-04-2025 Radiology Diagnostic study note [facility] Imaging Services [address] [place] [address] CTA Chest W/WO Contrast MR#: [id number] Acct: [id number] Name: SAVANNAH AGUIRRE Rep #: [id number] : 1960 F 63 From: Edd Galeana DO PCP: Dr. Shahab Adams DO Status: REG ER Study:CTA Chest W/WO Contrast Date of Exam: 06/10/24 Exam# [id number] Ordering Dr: Claus Loja MD PROCEDURE: CTA CHEST W/WO CONTRAST 06/10/2024 REASON FOR EXAM: DYSPNEA, ELEVATED D-DIMER TECHNIQUE: CTA imaging of the chest, abdomen and pelvis without and with intravenous contrast. Coronal and Sagittal reconstruction series were provided. 3D, 3D post processing, 3D reconstructions, Maximum intensity projection (MIPs) Volume rendering and Shaded surface rendering was provided. One or more dose reduction techniques were used (e.g., Automated exposure control, adjustment of the mA and/or kV according to patient size, use of iterative reconstruction technique). COMPARISON: None FINDINGS: Heart size is within normal limits. No significant pericardial effusion or coronary artery calcifications. Normal caliber thoracic aorta without gross dissection. Normal caliber pulmonary arteries withfilling defects in the right lower lobar and left lower segmental pulmonary arteries consistent with acute emboli. No definite evidence of rightheart strain. No suspicious adenopathy. Moderate hiatal hernia. No acute findings in the visualized upper abdomen. Superficial soft tissues are intact. Central airways are patent. Subtle diffuse ground-glass opacities in the upper lobes and superior segments of the lower lobes. No focal consolidation, pleural effusion or pneumothorax. No pulmonary mass. No acute osseous abnormality. Degenerative changes of the spine. CT/CTA Chest W/WO Contrast IMPRESSION: 1. Acute bilateral lower lobe pulmonary emboli as above. No definite evidence of right heart strain. 2. Subtle generalized ground-glass opacities in the upper lung zones which may relate to edema/atelectasis versus pneumonitis. No focal consolidations. 3. Moderate hiatal hernia. Above findings discussed with Dr. Loja by phone at 2347 hours on 06/10/2024 Reading Location: [facility] CC: Dr. Lance Loja MD; Dr. Shahab Adams DO ~ Couture Alterations Dressmaker: Signed [facility]04-04-2025 Discharge summary [facility] Medical Records Department [address] [place] [address] Emergency Department Summary 06/10/24 MR#: [id number] Acct: [id number] Name: SAVANNAH AGUIRRE Rep #:[id number] : 1960 63 From: Lance Loja MD PCP: Dr. Shahab Adams DO Status:REG ER Location: ED HPI History of Present Illness Chief Complaint: Shortness of Breath Informant: patient Narrative Narrative: 63-year-old female states she has been out of breath for about 6 weeks. She feels like it is getting worse. She was seen here 4 weeks ago for it, advised to follow-up which she did and she had an outpatient echocardiogram that was normal but today she is much worse and feels like she had some chestburning andsome phlegm in her throat and chest. She has had a minor cough today only, but in the past month she has not had a cough, fevers or chills, or any other symptoms other than the dyspnea mostly with exertion. She has some leg edema but it has not been any different in the last month. No known history of COPD never smoker, however she had an albuterol inhaler at home that she tried a couple times a day and it helped a little. [facility] Medical History Post-menopausal Depression Anxiety Thyroid disease Anemia Gastric reflux Non-smoker Leg cramps History of pain when walking Hypothyroid CKD (chronic kidney disease) Hypertension Infection of spinal cord stimulator Rheumatoid arthritis Chronic pain Arthritis Fibromyalgia Migraines Home Medications ?Medication ?Instructions ?Recorded ?Last Taken ?Type buprenorphine 20 mcg/hour weekly 1 patch transdermal Q WEEK PAIN 01/13/21 05/28/22 History transdermal patch (Butrans) hydrocodone-acetaminophen 5-325mg 1 tab PO Q6H PRN Jess n 01/13/21 11/13/22 07:00 History 5mg-325mg levothyroxine 88 mcg tablet 100 mcg PO DAILY 01/13/21 06/01/22 History (Synthroid) omeprazole 40 mg capsule,delayed 40 mg PO DAILY 06/01/22 History release potassium chloride 20 mEq 20 meq PO TID SUPPLEMENT 09/2606/01/22 History tablet,extended release(part/cryst) triamterene 37.5 1 cap PO DAILY Check with pr imary 01/13/21 06/01/22 History mg-hydrochlorothiazide 25 mg doctor capsule gabapentin 400 mg capsule 400 mg PO TID PAIN 05/08/21 06/01/22 History cholecalciferol (vitamin D3) 125 125 mcg PO DAILY SUPP LEMENT 06/01/22 06/01/22 History mcg (5,000 unit) capsule albuterol sulfate 90 mcg/actuation 2 puff inhalation Q 4H PRN 10/22/22 Unknown History aerosol inhaler (ProAir HFA) shortness of breath or wh eezing ferrous gluconate 324 mg (37.5 mg 324 mg PO DAILY 10/07 08/29 Unknown History iron) tablet magnesium 250 mg tablet 400 mg PO DINNER SUPPLEMENT 10/22/22 Unknown History PRIMAL DEFENCE 410 mg PO 1XD 11/12/22 Unkno wn History metoprolol succinate 50 mg 50 mg PO QHS 11/13/22 Unkno wn History tablet,extended release 24 hr adalimumab 40 mg/0.8 mL 40 mg subcut .1XWEEK 5 Unknown History subcutaneous pen kit (Humira Pen) allopurinol 300 mg tablet 300 mg PO DAILY 06/10/24 Unk nown History colchicine 0.6 mg tablet 0.6 mg PO DAILY 06/10/24 Unk nown History prednisone 5 mg tablet 15 mg PO DAILY 06/10/24 Unkn own History Allergy/AdvReac Type Severity Reaction Status Date / Time oxycodone Allergy Rash Verified 06/10/24 21:28 adhesive tape AdvReac Rash Verified 06/10/24 21:28 Family History Mother Hypertension Colon polyps Surgical History Hx of hysterectomy History of carpal tunnel release Hx of thyroidectomy Hx of cholecystectomy Hx of tonsillectomy Social History household members: none Smoking Status: Never smoker alcohol intake: never substance use type: does not use ROS ROS ED Constitutional Constitutional ED: Denies chills or fever(s) Eyes Eyes: Denies change in vision or diplopia ENT ENT ED: Reports other Details: Postnasal drip and phlegmy just today ; Denies rhinorrhea or sore throat Cardiovascular Cardiovascular: Reports chest pain and leg edema; Denies orthopnea, palpitationsor syncope Respiratory/Chest Respiratory/Chest: Reports dyspnea and dyspnea on exertion; Denies cough or orthopnea Gastrointestinal Gastrointestinal: Denies abdominal pain, diarrhea, nausea or vomiting Genitourinary Genitourinary ED: Denies dysuria or hematuria Musculoskeletal Musculoskeletal: Reports arthralgias and back pain; Denies neck pain Integumentary Denies abscess or rash Neurologic Neurologic: Denies headache(s), paresthesias or weakness Psychiatric Psychiatric: Denies suicidal thoughts EXAM Physical Exam Const Vital Signs: 06/10/24 21:26 06/10/24 21:27 06/10/24 21:28 Temperature 98.4 F 98.4 F Temperature Source Oral Oral Pulse Rate 90 90 Respiratory Rate 20 H 20 H Respiratory Effort Respiratory Pattern Blood Pressure 205/91 H 205/91 H Blood Pressure Mean 129 129 Pulse Ox 84 92 95 Oxygen Delivery Method Room Air Nasal Cannula Nasal Cannula Oxygen Flow Rate (L/min) 2 2 06/10/24 21:49 06/10/24 22:08 06/10/24 22:26 Temperature Temperature Source Pulse Rate 92 99 Respiratory Rate 20 H 22 H Respiratory Effort Respiratory Pattern Tachypnea Blood Pressure 185/83 H Blood Pressure Mean 117 Pulse Ox 95 92 Oxygen Delivery Method Nasal Cannula Nasal Cannula Oxygen Flow Rate (L/min) 2 2 06/10/24 22:27 06/10/24 22:48 06/10/24 23:00 Temperature 98.2 F 98 F Temperature Source Oral Oral Pulse Rate 98 95 Respiratory Rate 18 27 H Respiratory Effort Short of Breath Labored Respiratory Pattern Tachypnea Blood Pressure 187/79 H 185/76 H Blood Pressure Mean 115 112 Pulse Ox 99 95 Oxygen Delivery Method Nasal Cannula Nasal Cannula Nasal Cannula Oxygen Flow Rate (L/min) 2 2 2 06/10/24 23:00 06/10/24 23:45 Temperature 98.6 F Temperature Source Pulse Rate 95 97 Respiratory Rate 24 H 38 H Respiratory Effort Respiratory Pattern Blood Pressure 185/76 H 185/83 H Blood Pressure Mean 112 117 Pulse Ox 98 91 Oxygen Delivery Method Oxygen Flow Rate (L/min) Positive well nourished and well developed General Appearance ED: well developed and NAD HEENT Reports moist mucous membranes normocephalic and atraumatic Eyes PERRL and EOMs intact bilaterally Neck full ROM and supple Resp normal respiratory effort and clear to auscultation bilaterally Cardio regular rate, regular rhythm and no murmurs GI non-tender and non-distended Auscultation: normoactive bowel sounds Palpation: soft Back/Spine no CVA tenderness General Back: other FROM Extremity normal to inspection General Extremety ED: Yes edema; Negative for pulses abnormal or tenderness General Extremity: edema bilateral lower extremity Details: mild; Negative for pulses abnormal Neuro oriented x3, CN's II-XII intact bilaterally and no sensory deficits noted Sensorium / Orientation: awake and alert Motor Exam: strength 5/5 throughout Psych mental status grossly normal Skin no rashes or lesions noted and no wounds MDM MDM MDM Narrative Medical decision making narrative: Patient 84% on room air in triage so nurses put her on O2 liter nasal cannula she is 95%. Is very hypertensive so going to treat that while working her up and giving her a duo nebulizer treatment. Also after reviewing her prior ED visit, she was ruled out for acute heart failure, pneumonia, ACS buta D-dimer was not obtained, she is low risk for pulmonary embolus has never had a DVT or PE, has nosign of recurrent DVT, no recent long travel, immobilization, or surgery so she is appropriate for a D-dimer. This was done and significantly elevated, so I sent her for stat CTA of the chest, and I reviewed the images upon her arriving back in the room, on my interpretation it shows a central right pulmonary artery embolus and at least 1 subsegmental embolus in the left lung, so I ordered Lovenox 1 mg/kg, discussed with her and family, given her hypoxemia she should be admitted. She is currently 92% on 2 L nasal cannula. Her blood pressure has come down to 166/84. She will need Dopplers of her legs but that is not available at the hour the patient is here. The source of this is unknown at this time. History & Record Review Additional record(s) reviewed:: Prior ED visit and Other (Outpatient echo from today: Normal including normal EF) Lab Data Attestation: I reviewed the patient's lab results. Labs: Laboratory Results - last 24 hr 06/10/24 06/10/24 22:21 22:29 WBC 11.4 H RBC 5.01 Hgb 15.2 H Hct 45.7 MCV 91.2 MCH 30.3 MCHC 33.3 RDW Std Deviation 46.0 H RDW Coeff of Hiro 13.8 Plt Count 180 MPV 10.1 Immature Gran % (Auto) 0.700 Neut % (Auto) 67.6 Lymph % (Auto) 16.3 L [place] % (Auto) 10.3 H Eos % (Auto) 4.4 Baso % (Auto) 0.7 Absolute Neuts (auto) 7.7 Absolute Lymphs (auto) 1.86 Nucleated RBC % 0 D-Dimer Quant (PE/DVT) 3.20 H* Sodium 141 Potassium 3.3 Chloride 102 Carbon Dioxide 25.2 Anion Gap 14 BUN 21 H Creatinine 1.34 H Estim Creat Clear Calc 44.39 L Est GFR (MDRD) Non-Af 44 L BUN/Creatinine Ratio 15.4 Glucose 127 H Calcium 9.7 Troponin T High Sens 37 H D Radiography Diagnostic Testing: Clinical Impression(s) from Imaging Studies Chest X-Ray 06/10/24 22:36 IMPRESSION: Generalized interstitial prominence without focal consolidation. [facility] Rhythm Strip Rhythm Strip: Sinus Rhythm Rate: 95 Ectopy: None EKG Initial EKG: Attestation: I personally reviewed and interpreted this EKG as follows: Interpretation: Sinus Rhythm and No Acute Injury Pattern Comments: RSR' otherwise nml EKG Management Discussion w/another healthcare provider: Hospitalist and Radiologist (Dr. Moreira, called to discussfindings of pulmonary embolism bilat) Discharge Plan Dx/Rx/DC Orders Clinical Impression: Pulmonary embolism, Hypoxemia, Accelerated hypertension Disposition Disposition: Acute Care Hospital [facility] What to do if you have Problems For any increased pain, shortness of breath, bleeding, nausea or vomiting, chestpain, or any unexpected problems, contact your Primary Care Provider. Call [facility] ([phone]) or report tothe closest Emergency Room. Call 911 if necessary. 06/10/24 3478 Cosigner Signature (if applicable): CC: Dr. Shahab Adams DO ~ Signed [facility]04-04-2025 Radiology Diagnostic study note [facility] Imaging Services [address] [place], [place] [id number] Chest PA and Lateral MR#: [id number] Acct: [id number] Name: SAVANNAH AGUIRRE Rep #: [id number] : 1960 F 63 From: Edd Galeana DO PCP: Dr. Shahab Adams DO Status: REG ER Study:Chest PA and Lateral Date of Exam: 06/10/24 Exam# [id number] Ordering Dr: Claus Loja MD PROCEDURE: CHEST PA AND LATERAL 06/10/2024 REASON FOR EXAM: SOB TECHNIQUE: Frontal and lateral views of the chest. COMPARISON: 05/09/2024 FINDINGS: Cardiomediastinal silhouette is within normal limits. Generalized interstitial prominence involvingthe mid to lower lung zones. No confluent airspace consolidation, pleural effusion or pneumothorax. RAD/Chest PA and Lateral IMPRESSION: Generalized interstitial prominence without focal consolidation. Reading Location: [facility] CC: Dr. Lance Loja MD; Dr. Shahab Adams DO ~ Couture Alterations Dressmaker: Signed [facility]03-26-2025 NoteHNO ID: [id number] Author: ?, ?, ? Service: ? Author Type: ? Type: Progress Notes Filed: 06/06/2024 17:17 Note Text: [facility] Specialty Refill Assessment Medication(s): Humira Patient's current medication list and adherence status to current therapy were reviewed by Specialty Pharmacy clinical pharmacist to identify any new drug interactions or non-compliance to therapy. Therapy continues to be appropriate for disease, patient response, and medical condition. Verification of therapeutic benefit and effectiveness with current therapy was completed. Adverse events, barriers in adherence, and side effects were assessed and addressed if applicable. Will proceed with refill with no changes in therapy - patient progressing towards achieving therapeutic goals based on medication-specific laboratory parameters, disease state markers and outcomes. Office/provider notes have been reviewed prior to dispensing the medication. Radio Dispatcher Assessment Patient confirmed: Yes Med/dose confirmed: Yes Supplies needed: No supplies needed Missed doses: No Estimated days supply on hand: 0 Next cycle/dose due: 06/10/24 Copay amount: 0 Delivery method: FedEx Signature required: Waived on patient request Delivery address: [place] [address] Delivery date: 06/08/24 Questions or concerns for the pharmacist?: No Did you have any side effects believed to be related to this medication, that resulted in hospitalization?: No Current Outpatient Medications on File Prior to Visit Medication Sig sulfaSALAzine (AZULFIDINE) 500 mg tablet Take 1 tablet by mouth two times a day. predniSONE (DELTASONE) 10 mg tablet Take 1 tablet by mouth once daily. predniSONE (DELTASONE) 1 mg tablet Take 4 tablets by mouth once daily for 14 days, THEN 3 tablets once daily for 14 days, THEN 2 tablets once daily for 14 days, THEN 1 tablet once daily for 14 days. colchicine 0.6 mg tablet take 1 tablet by mouth twice a day adalimumab (HUMIRA,CF, PEN) 40 mg/0.4 mL pen kit Inject 40mg(1 pen) subcutaneously one time a week. allopurinol (ZYLOPRIM) 300 mg tablet Take 1 tablet by mouth once daily. Omeprazole 40 mg capsule Take 40 mg by mouth twice daily. levothyroxine (SYNTHROID) 100 mcg tablet Take 100 mcg by mouth once daily. metoprolol tartrate, short acting, (LOPRESSOR) 25 mg tablet Take 50 mg by mouth once daily. triamterene-hydrochlorothiazide 37.5-25 mg per capsule Take 1 capsule by mouth once daily. potassium chloride (K-SUNG, KLOR-CON) 20 mEq packet Take 20 mEq by mouth three times daily. magnesium oxide 400 mg cap Take 400 mg by mouth twice daily. gabapentin (NEURONTIN) 300 mg capsule Take 300 mg by mouth once daily. HYDROcodone-acetaminophen (NORCO) 5-325 mg per tablet Take 1 tablet by mouth twice daily. buprenorphine 15 mcg/hour ptwk Apply as directed. No current facility-administered medications on file prior to visit. [facility] SPECIALTY CLINICAL ASSESSMENT - INFLAMMATORY CONDITIONS V6: Assessment to use: Refill Date of influenza vaccination reminder: 11/30/2023 Date of most recent vaccination assessment: 11/30/2023 Treatment Plan Information: Actemra Actpen 162mg/0.9mL Inject 1 pen (162mg) subcutaneously every other week. (M06.00) Seronegative rheumatoid arthritis Past treatment: Humira Est. Tx Plan Start Date: 10/09/2023 Estimated Start Date Info: No information available Est. Estimated Treatment Duration: Until loss of efficacy and/or no longer tolerated. Jenifer Lambert [facility], Neurology, Cardiology, AND Infectious Disease P: [phone] F: [phone] History of Present illness Narrative* Peggy Paige - 05/31/2024 10:52 AM EDT [facility] received prescription(s) for Humira CF from Dr. Chris Cody's office. Benefits investigation was conducted, indicating that a prior authorization is required by patient's NEW insurance plan with [employer]. Encounter will be updated once prior authorization has been submitted by [facility]. Peggy Paige [facility] Special[facility] Pharmacy, Inflammatory/Allergy P:[phone] * Peggy Paige - 05/31/2024 10:52 AM EDT Humira PA was approved through NEW insurance with details listed below. Plan Name: [employer] Plan Agent/Melara: [id number] [place] reference number: [id number] Approval Dates: 05/31/24-12/01/24 Prescriptions will now be processed through [facility] Specialty for determination of next steps. Peggy Paige [facility] Specialty Pharmacy, Inflammatory/Allergy P:[phone] documented in [facility]-2025 NoteHNO ID: [id number] Author: ?, ?, ? Service: ? Author Type: ? Type: Progress Notes Filed: 05/31/2024 13:58 Note Text: Humira PA was approved through NEW insurance with details listed below. Plan Name: [employer] Plan Agent/Melara: [id number] [place] reference number: [id number] Approval Dates: 05/31/24-12/01/24 Prescriptions will now be processed through [facility] Specialty for determination of next steps. Peggy Paige [facility] Specialty Pharmacy, Inflammatory/Allergy P:[phone]03-25-2025 NoteHNO ID: [id number] Author: ?, ?, ? Service: ? Author Type: ? Type: Progress Notes Filed: 05/31/2024 10:55 Note Text: [facility] received prescription(s) for Humira CF from Dr. Chris Cody's office. Benefits investigation was conducted, indicating that a prior authorization is required by patient's NEW insurance plan with [employer]. Encounter will be updated once prior authorization has been submitted by [facility]. Peggy Paige [facility] Specialty Pharmacy, Inflammatory/Allergy P:[phone]03-20-2025 Instructions* Patient Instructions* Chris Cody MD - 05/26/2024 11:36 AM EDT Get lab work today on the first floor If labs look OK you will start sulfasalazine 1 pill twice a day for 2 weeks then increase to 2 pills twice day We will start reducing your prednisone: 14 mg (1 10 mg tab + 4 1mg tablets) x 2 weeks -> 13 mg x2 weeks -> 12 mg x 2 weeks -> 11 mg x 2 weeks -> 10 mg x 2 weeks and so on (I will send a new script) Let me know about the results of the echocardiogram and have the results faxed to the [phone] Follow-up in about 6 weeks documented in this encounter[facility]25 NoteHNO ID: [id number] Author: CHRIS CODY MD Service: ? Author Type: Physician Type: Progress Notes Filed: 05/26/2024 14:18 Note Text: Rheumatology Clinic Date of Service: 05/26/2024 Patient: Savannah Aguirre Medical Record: [id number] Primary Care Physician: Shahab Adams DO Last Rheumatology visit: 04/07/2024 (with Chris Cody) History of Present Illness Savannah Aguirre is a 63 year old White female who presents on 05/26/2024 for in person visit for evaluation of Rheumatoid Arthritis. She is currently taking adalimumab, leflunomide, prednisone. Savannah is both RF - 9 (11/21/2022) and CCP - 13.5 (11/21/2022) negative. Her most recent CHASIDY was negative (01/16/2023). HISTORY OF PRESENT ILLNESS Patient scheduled to see me today for arthritis. 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 8-10 years dx'ed with RA but blood test and pain- hips, shoulders, feet. Patient has CRI, she used Methotrexate for one week and stopped. Treatment has included low dose predisone forever. Mary Tried Enbrel about 2 years ago- states not sure if this helped. Stopped the Enbrel as prescription ran out. Then moved to [facility]. - thinks again on for a few years , she is not quite sure when last injection was, maybe 9-12 months ago. [facility] Current medications: Plaquenil 200 mg BID- [facility] Past Medical History: - Chronic kidney disease stage III (2/2 chronic NSAID use) - Pain management Past Surgical History: - Tonsillectomy - Hysterectomy - Thyroid partial - Carpal tunnel release b/l - Spinal cord stimulator placement and removal Family History: - mother had some sort of pain issues (fibromyalgia) - grandmother - maybe osteoarthritis Social History: - Never smoker - Rare alcohol use - No other drugs Seen pain management- she is on norco 2-4 pill per day, gabapentin 3 times per day. + chronic back pain, had past spinal cord stimulator that had to be removed body rejected it' No prior surgery on her joints. Joints are not good. Describes dull tenderness- wrists, back, ankles, feet. She is getting swelling of her joints. She has some nodules of wrist and hand. Likes to sew, crafting, not on regular exercise regime, ADL's Has also been diagnosed Fibromyalgia, maybe on antidepressant but made me more depressed. Sleep is poor. Takes naps during the day. 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 INTERVAL HISTORY She has been having worsening shortness of breath over the last few weeks-months. She went to an ER about 3 weeks ago ([facility]) that showed normal chest x-ray and normal EKG. Normal labs as well. She gets short of breath with exertion. She does not know if she has dyspnea with recumbence, but she does get bendopnea. She is getting swelling in the legs and hands. Has gained 7 lbs in 2 weeks She has since stopped hydroxychloroquine. She has a floater. No changes Patient-Entered Data PROMIS Assessments 09/29/2023 12/30/2023 04/06/2024 PROMIS Global Health - (T-Scores - the mean of general population = 50. Five points is a clinically meaningful difference.) Physical T-Score 29.6 39.8 39.8 Mental T-Score 38.8 48.3 38.8 12/30/2023 04/06/2024 05/25/2024 PROMIS CAT Pain Interference PROMIS Pain Interference T-Score (range: 10 - 90) 67 (moderate) 68 (moderate) 65 (moderate) PROMIS Pain Interference Percentile 4 4 7 PROMIS Adult Short Form-Global Health Score (Mental) 48.3 (Very Good) 38.8 (Fair) 12/30/2023 04/06/2024 05/25/2024 PROMIS CAT Fatigue PROMIS Fatigue T-Score 64 (moderate) 62 (moderate) 64 (moderate) PROMIS Fatigue Percentile 8 12 8 12/30/2023 04/06/2024 05/25/2024 PROMIS PHYSICAL FUNCTION T-SCORE PROMIS Physical Function T-Score 31 (moderate dysfunction) 33 (moderate dysfunction) 32 (moderate dysfunction) Physical Function Percentile 3 4 4 RAPID 3 Melara Activities of Daily Living 05/25/2024 11:46 PM 04/06/2024 11:40 PM 12/30/2023 8:34 PM First answer obtained - 11/18/2022 1:01 AM Dress self? With SOME difficulty With SOME difficulty With SOME difficulty With SOME difficulty Get in and out of bed? With SOME difficulty With SOME difficulty With SOME difficulty With SOME difficulty Walk outdoors? With MUCH difficulty With SOME difficulty With SOME difficulty With SOME difficulty Wash and dry body? With SOME difficulty With SOME difficulty With SOME difficulty With SOME difficulty Get in and out of car? With SOME difficulty With SOME difficulty With SOME difficulty With SOME difficulty RAPID 3 Disease Activity Weighed Score Levels: 0 - 1: Near Remission 1.3 - 2.0: Low Severity 2.3 - 4.0: Moderate Severity 4.3 - 10.0: High Severity 12/30/2023 04/06/2024 (more content not included)...[facility]03-20-2025 History of Present illness Narrative* Chris Cody MD - 05/26/2024 11:06 AM EDT Images from the original note were not included. Rheumatology Clinic Date of Service: 05/26/2024 Patient: Savannah Aguirre Medical Record: [id number] Primary Care Physician: Shahab Adams DO Last Rheumatology visit: 04/07/2024 (with Chris Cody) History of Present Illness Savannah Aguirre is a 63 year old White female who presents on 05/26/2024 for in person visit for evaluation of Rheumatoid Arthritis. She is currently taking adalimumab, leflunomide, prednisone. Savannah is both RF - 9 (11/21/2022) and CCP - 13.5 (11/21/2022) negative. Her most recent CHASIDY was negative (01/16/2023). HISTORY OF PRESENT ILLNESS Patient scheduled to see me today for arthritis. 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 8-10 years dx'ed with RA but blood test and pain- hips, shoulders, feet. Patient has CRI, she used Methotrexate for one week and stopped. Treatment has included low dose predisone forever. Plaquenil Tried Enbrel about 2 years ago- states not sure if this helped. Stopped the Enbrel as prescriptionran out. Then moved to [facility]. - thinks again on for a few years , she is not quite sure when last injection was, maybe 9-12 months ago. Not sure if the [facility] was helping Current medications: Plaquenil 200 mg BID- [facility] Past Medical History: - Chronic kidney disease stage III (2/2 chronic NSAID use) - Pain management Past Surgical History: - Tonsillectomy - Hysterectomy - Thyroid partial - Carpal tunnel release b/l - Spinal cord stimulator placement and removal Family History: - mother had some sort of pain issues (fibromyalgia) - grandmother - maybe osteoarthritis Social History: - Never smoker - Rare alcohol use - No other drugs Seen pain management- she is on norco 2-4 pill per day, gabapentin 3 times per day. + chronic back pain, had past spinal cord stimulator that had to be removed body rejected it' No prior surgery on her joints. Joints are not good. Describes dull tenderness- wrists, back, ankles, feet. She is getting swelling of her joints. She has some nodules of wrist and hand. Likes to sew, crafting, not on regular exercise regime, ADL's Has also been diagnosed Fibromyalgia, maybe on antidepressant but made me more depressed. Sleep is poor. Takes naps during the day. 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 INTERVAL HISTORY She has been having worsening shortness of breath over the last few weeks- months. She went to an ERabout 3 [facility] ago ([facility]) that showed normal chest x-ray and normal EKG. Normal labs as well. She gets short of breath with exertion. She does not know if she has dyspnea with recumbence, but she does get bendopnea. She is getting swelling in the legs and hands. Has gained 7 lbs in 2 weeks She has since stopped hydroxychloroquine. She has a floater. No changes Patient-Entered Data PROMIS Assessments 09/29/2023 12/30/2023 04/06/2024 PROMIS Global Health - (T-Scores - the mean of general population = 50. Five points is a clinicallymeaningful difference.) Physical T-Score 29.6 39.8 39.8 Mental T-Score 38.8 48.3 38.8 12/30/2023 04/06/2024 05/25/2024 PROMIS CAT Pain Interference PROMIS Pain Interference T-Score (range: 10 - 90) 67 (moderate) 68 (moderate) 65 (moderate) PROMIS Pain Interference Percentile 4 4 7 PROMIS Adult Short Form-Global Health Score (Mental) 48.3 (Very Good) 38.8 (Fair) 12/30/2023 04/06/2024 05/25/2024 PROMIS CAT Fatigue PROMIS Fatigue T-Score 64 (moderate) 62 (moderate) 64 (moderate) PROMIS Fatigue Percentile 8 12 8 12/30/2023 04/06/2024 05/25/2024 PROMIS PHYSICAL FUNCTION T-SCORE PROMIS Physical Function T-Score 31 (moderate dysfunction) 33 (moderate dysfunction) 32 (moderate dysfunction) Physical Function Percentile 3 4 4 RAPID 3 Melara Activities of Daily Living 05/25/2024 11:46 PM 04/06/2024 11:40 PM 12/30/2023 8:34 PM First answer obtained - 11/18/2022 1:01 AM Dress self? With SOME difficulty With SOME difficulty With SOME difficulty With SOME difficulty Get in and out of bed? With SOME difficulty With SOME difficulty With SOME difficulty With SOME difficulty Walk outdoors? With MUCH difficulty With SOME difficulty With SOME difficulty With SOME difficulty Wash and dry body? With SOME difficulty With SOME difficulty With SOME difficulty With SOME difficulty Get in and out of car? With SOME difficulty With SOME difficulty With SOME difficulty With SOME difficulty RAPID 3 Disease Activity Weighed Score Levels: 0 - 1: Near Remission 1.3 - 2.0: Low Severity 2.3 - 4.0: Moderate Severity 4.3 - 10.0: High Severity 12/30/2023 04/06/2024 05/25/2024 RAPID-3 Weighed Score RAPID 3 Weighed Score 5.11 (High severity ) 5.28 (High severity ) 5 (High severity ) Patient Health Questionnaire (PHQ-9) No data to display (0-4) minimal depression, (5-9) mild depression, (10-14) moderate depression, (15-19) moderately severe depression, (20-27) severe depression Review of Systems Review of Systems CONSTITUTION: Positive for: Recent weight change Negative for: Fever HEENT: Positive for: Mouth sores, Trouble swallowing and Dry mouth Negative for: Nosebleeds RESPIRATORY: Positive for: Shortness of breath Negative for: Cough and Pain with breathing GASTROINTESTINAL: Negative for: Melena, Diarrhea, Heartburn and Abdominal pain MUSCULOSKELETAL: Positive for: Arthralgias, Myalgias, Muscle weakness, Joint swelling and Morning Joint Stiffness NEUROLOGICAL: Positive for: Numbness Negative for: Memory loss SKIN: Negative for: Rash, Skin changes, Hair loss and Nail changes EYES: Negative for: Eye pain, Eye redness, Eye dryness and visual disturbance CARDIOVASCULAR: Positive for: Leg swelling Negative for: Chest pain GENITOURINARY: Positive for: Dysuria Negative for: Hematuria HEMATOLOGIC/LYMPHATIC: Negative for: Swollen glands All other reviewed and negative other than HPI. Current Medications Current Outpatient Medications on File Prior to Visit Medication Sig colchicine 0.6 mg tablet take 1 tablet by mouth twice a day adalimumab (HUMIRA,CF, PEN) 40 mg/0.4 mL pen kit Inject 40mg(1 pen) subcutaneously one time a week. predniSONE (DELTASONE) 5 mg tablet Take 3 tablets by mouth once daily. allopurinol (ZYLOPRIM) 300 mg tablet Take 1 tablet by mouth once daily. Omeprazole 40 mg capsule Take 40 mg by mouth twice daily. levothyroxine (SYNTHROID) 100 mcg tablet Take 100 mcg by mouth once daily. metoprolol tartrate, short acting, (LOPRESSOR) 25 mg tablet Take 50 mg by mouth once daily. triamterene-hydrochlorothiazide 37.5-25 mg per capsule Take 1 capsule by mouth once daily. potassium chloride (K-SUNG, KLOR-CON) 20 mEq packet Take 20 mEq by mouth three times daily. magnesium oxide 400 mg cap Take 400 mg by mouth twice daily. gabapentin (NEURONTIN) 300 mg capsule Take 300 mg by mouth once daily. HYDROcodone-acetaminophen (NORCO) 5-325 mg per tablet Take 1 tablet by mouth twice daily. buprenorphine 15 mcg/hour ptwk Apply as directed. leflunomide (ARAVA) 20 mg tablet take 1 tablet by mouth once daily (Patient not taking: Reported on05/26/2024) No current facility-administered medications on file prior to visit. Labs See HPI Imaging Last XR Hand/Finger - Impression Only XR HAND GENERAL 3V PA/LAT/OBL BILATERAL Exam End: 11/21/2022 3:07 PM (Final result) Impression: IMPRESSION: No radiographic findings of inflammatory arthropathy. Couture Alterations Dressmaker: RANDY Transcribe Date/Time: Nov 21 2022 3:31P... Last XR Shoulder - Impression Only XR SHOULDER GENERAL 3V OR MORE AP/TRUE AP/OTHER RIGHT Exam End: 11/21/2022 3:07 PM (Final result) Impression: IMPRESSION: Degenerative changes greater on the right. Couture Alterations Dressmaker: RANDY Transcribe Date/Time: Nov 21 2022 3:29P... Last XR Foot / Toe - Impression Only XR FOOT GENERAL 3V AP/LAT/OBL BILATERAL Exam End: 11/21/2022 3:07 PM (Final result) Impression: IMPRESSION: Degenerative changes. No radiographic findings of inflammatory arthropathy. Couture Alterations Dressmaker: RANDY ... Physical Exam BP 156/70 Pulse 65 Temp (Src) 97.3 (Temporal) Ht 5' 3 (1.60m) Wt 202 lb 9.6 oz (91.9kg) BMI 35.90 kg/(m^2). Exam: GENERAL: NAD HEENT: NCAT, PERRLA, EOMI, no scleral icterus, oropharynx clear and without lesions/ulcers. CV: Normal rate, regular rhythm. No appreciable murmur/rub/gallop. Heart rate increases to 90s withambulation PULM: Normal WOB and RR on RA. Lung salmeron CTA bilaterally without appreciable wheezes or crackles. EXT: 2+ radial pulses. 2+ bilateral pitting edema SKIN: Warm, dry, no significant rashes, no significant bruising. NEURO: A&Ox3. Mental status and speech normal. MSK: Neck: Flexion, extension, and lateral rotation WNL. Spine: Intact ROM. No TTP. Shoulders: Intact ROM without reported pain. No appreciable swelling or tenderness with palpation. Elbows: No flexion contractures. No appreciable swelling, deformities, or tenderness with palpation. Wrists: No limitation of flexion or extension. Some dorsal hand /wrist swelling Hands: No evidence of synovitis or loss of ROM. There is mild edema Knees: No gross deformity. No appreciable effusion. No tenderness with palpation of joint lines. Nojoint laxity and intact ROM. Ankles: No limitation of plantarflexion or dorsiflexion. No appreciable effusion. + soft tissue edema Feet: No evidence of synovitis Impression and Plan Diagnoses: (M06.00) Seronegative rheumatoid arthritis (HCC) (primary encounter diagnosis) (M1A.09X0) Chronic gout of multiple sites, unspecified cause (Z79.899) High risk medication use (R74.8) Elevated liver enzymes (R06.02) Shortness of breath (T14.8XXA) Bruising (M85.80) Osteopenia, unspecified location mod- severe active RA Savannah Aguirre is a 63 year old female who presents for follow-up of inflammatory arthritis. This is a patient with a 10 year history of reported seronegative rheumatoid arthritis. Her description is largely non-inflammatory, though she does have clear swelling and episodes of exquisite painwith minimal provocation. She also has episodes of more diffuse body pain and myalgias. She has previously used the following medications: - Methotrexate - Hydroxychloroquine (currently in use) - Abatacept - Etanercept - Adalimumab - Prednisone 5 mg daily She has not experienced significant benefit with any of these medications. Humira x 4 months has not improved her symptoms. At previous there was worsening inflammatory arthritis consistent with seronegative RA. We increased humira from 40 mg eery other week to weekly. She still has difficulty tapering steroids below 15 mg. Unclear if her residual pain is from central sensitization, osteoarthritis, or RA. She did not tolerate leflunomide. We discussed the risks/benefits/side effects of sulfasalazine. We will also start tapering prednisone as I am concerned it is contributing to her dyspnea and swelling symptoms. Her shortness of breath is worsening and is associated with bendopnea and LE edema. She has an upcoming echocardiogram. With ambulation today, her SpO2 > 94%. She had a recent ER visit where her chest x-ray and EKG were reportedly normal. I would be concerned for new onset or recurrence of heartfailure causing these symptoms. She will need the echocardiogram, but I will check NT-ProBNP today. Plan: - Continue allopurinol 300 mg daily - Continue colchicine 0.6 mg daily - No longer on HCQ due to toxicity - Continue adalimumab to 40 mg weekly - she has had good but incomplete response to 40 mg every other week - Check G6PD today - if normal, can start sulfasalazine, goal dose 1000 mg BID - Prednisone 14 mg x 2 weeks then taper by 1 mg every two weeks - Will need to get results from Echocardiogram - Labs as below - Check PT/PTT for bruising - Follow-up in 6 weeks Orders this visit: Office Visit on 05/26/24 COMPLETE BLOOD COUNT AND DIFFERENTIAL COMPREHENSIVE METABOLIC PANEL SEDIMENTATION RATE, WESTERGREN C-REACTIVE PROTEIN NT PRO BNP G-6-PD QUANTITATIVE URIC ACID PROTHROMBIN TIME ACTIVATED PARTIAL THROMBOPLASTIN TIME VITAMIN C VITAMIN D 25 HYDROXY predniSONE (DELTASONE) 10 mg tablet predniSONE (DELTASONE) 1 mg tablet No follow-ups on file. CC: PCP: Shahab Adams DO [address] [place] [address] Phone #: [phone] I spent a total of 44 minutes on the date of the service which included preparing to see the patient, [id number] patient care, completing clinical documentation, obtaining and/or reviewing separately obtained history, performing a medically appropriate examination, counseling and educating the pat ient/family/caregiver, ordering medications, tests, or procedures, and independently interpreting results (not separately reported). Chris Cody MD Rheumatology Date: May 26, 2024 Time: 11:06 AM documented in [facility] encounter[facility]25 History of Present illness Narrative* Peggy Paige - 05/04/2024 9:17 AM EST [facility] Specialty Refill Assessment Medication(s): Humira ( CF) Patient's current medication list and adherence status to current therapy were reviewed by Specialty Pharmacy clinical pharmacist to identify any new drug interactions or non-compliance to therapy. Therapy continues to be appropriate for disease, patient response, and medical condition. Verification of therapeutic benefit and effectiveness with current therapy was completed. Adverse events, barriers in adherence, and side effects were assessed and addressed if applicable. Will proceed with refill with no changes in therapy - patient progressing towards achieving therapeutic goals based on medication- specific laboratory parameters, disease state markers and outcomes. Office/provider notes have been reviewed prior to dispensing the medication. Ivelisse Leyva PharmD Clinical Pharmacist, [employer] [facility] ; Pool: [facility] Pool #: [id number] Radio Dispatcher Assessment Patient confirmed: Yes Med/dose confirmed: Yes Supplies needed: No supplies needed Missed doses: No Estimated days supply on hand: 1 Next cycle/dose due: 05/06/24 Copay amount: 0 Payment confirmed: Yes Delivery method: FedEx Signature required: No Delivery address: [address] [place] [id number] Delivery date: 05/06/24 Questions or concerns for the pharmacist?: No Did you have any side effects believed to be related to this medication, that resulted in hospitalization?: No Current Outpatient Medications on File Prior to Visit Medication Sig adalimumab (HUMIRA,CF, PEN) 40 mg/0.4 mL pen kit Inject 40mg(1 pen) subcutaneously one time a week. colchicine 0.6 mg tablet Take 1 tablet by mouth two times a day. predniSONE (DELTASONE) 5 mg tablet Take 3 tablets by mouth once daily. allopurinol (ZYLOPRIM) 300 mg tablet Take 1 tablet by mouth once daily. leflunomide (ARAVA) 20 mg tablet Take 1 tablet by mouth once daily. Omeprazole 40 mg capsule Take 40 mg by mouth twice daily. levothyroxine (SYNTHROID) 100 mcg tablet Take 100 mcg by mouth once daily. metoprolol tartrate, short acting, (LOPRESSOR) 25 mg tablet Take 50 mg by mouth once daily. triamterene-hydrochlorothiazide 37.5-25 mg per capsule Take 1 capsule by mouth once daily. potassium chloride (K-SUNG, KLOR-CON) 20 mEq packet Take 20 mEq by mouth three times daily. magnesium oxide 400 mg cap Take 400 mg by mouth twice daily. gabapentin (NEURONTIN) 300 mg capsule Take 300 mg by mouth once daily. HYDROcodone-acetaminophen (NORCO) 5-325 mg per tablet Take 1 tablet by mouth twice daily. buprenorphine 15 mcg/hour ptwk Apply as directed. No current facility-administered medications on file prior to visit. [facility] SPECIALTY CLINICAL ASSESSMENT - INFLAMMATORY CONDITIONS V6: Ivent complete: No Assessment to use: Refill Assessment of injection issues: Yes Infection screening, including annual TB assessment when applicable to medication: Yes Current medication list (including drug interaction assessment): Yes Experience of adverse reactions to the medication: Yes Date of influenza vaccination reminder: 11/30/2023 Date of most recent vaccination assessment: 11/30/2023 Treatment Plan Information: Actemra Actpen 162mg/0.9mL Inject 1 pen (162mg) subcutaneously every other week. (M06.00) Seronegative rheumatoid arthritis Past treatment: Humira Est. Tx Plan Start Date: 10/09/2023 Estimated Start Date Info: No information available Est. Estimated Treatment Duration: Until loss of efficacy and/or no longer tolerated. Peggy Paige CPhT Specialty Pharmacy, Inflammatory/Allergy P:[phone] documented in this encounterOhio[facility]02-26-2025 NoteHNO ID: [id number] Author: GRACY LEYVA RPh Service: ? Author Type: ? Type: Progress Notes Filed: 05/04/2024 11:51 Note Text: [facility] Specialty Refill Assessment Medication(s): Humira ( CF) Patient's current medication list and adherence status to current therapy were reviewed by Specialty Pharmacy clinical pharmacist to identify any new drug interactions or non-compliance to therapy. Therapy continues to be appropriate for disease, patient response, and medical condition. Verification of therapeutic benefit and effectiveness with current therapy was completed. Adverse events, barriers in adherence, and side effects were assessed and addressed if applicable. Will proceed with refill with no changes in therapy - patient progressing towards achieving therapeutic goals based on medication-specific laboratory parameters, disease state markers and outcomes. Office/provider notes have been reviewed prior to dispensing the medication. Ivelisse Leyva PharmD Clinical Pharmacist, [employer] [facility] ; Pool: P [facility] Pool #: [id number] Radio Dispatcher Assessment Patient confirmed: Yes Med/dose confirmed: Yes Supplies needed: No supplies needed Missed doses: No Estimated days supply on hand: 1 Next cycle/dose due: 05/06/24 Copay amount: 0 Payment confirmed: Yes Delivery method: FedEx Signature required: No Delivery address: [facility] [id number] Delivery date: 05/06/24 Questions or concerns for the pharmacist?: No Did you have any side effects believed to be related to this medication, that resulted in hospitalization?: No Current Outpatient Medications on File Prior to Visit Medication Sig adalimumab (HUMIRA,CF, PEN) 40 mg/0.4 mL pen kit Inject 40mg(1 pen) subcutaneously one time a week. colchicine 0.6 mg tablet Take 1 tablet by mouth two times a day. predniSONE (DELTASONE) 5 mg tablet Take 3 tablets by mouth once daily. allopurinol (ZYLOPRIM) 300 mg tablet Take 1 tablet by mouth once daily. leflunomide (ARAVA) 20 mg tablet Take 1 tablet by mouth once daily. Omeprazole 40 mg capsule Take 40 mg by mouth twice daily. levothyroxine (SYNTHROID) 100 mcg tablet Take 100 mcg by mouth once daily. metoprolol tartrate, short acting, (LOPRESSOR) 25 mg tablet Take 50 mg by mouth once daily. triamterene-hydrochlorothiazide 37.5-25 mg per capsule Take 1 capsule by mouth once daily. potassium chloride (K-SUNG, KLOR-CON) 20 mEq packet Take 20 mEq by mouth three times daily. magnesium oxide 400 mg cap Take 400 mg by mouth twice daily. gabapentin (NEURONTIN) 300 mg capsule Take 300 mg by mouth once daily. HYDROcodone-acetaminophen (NORCO) 5-325 mg per tablet Take 1 tablet by mouth twice daily. buprenorphine 15 mcg/hour ptwk Apply as directed. No current facility-administered medications on file prior to visit. [facility] CLINICAL ASSESSMENT - INFLAMMATORY CONDITIONS V6: Ivent complete: No Assessment to use: Refill Assessment of injection issues: Yes Infection screening, including annual TB assessment when applicable to medication: Yes Current medication list (including drug interaction assessment): Yes Experience of adverse reactions to the medication: Yes Date of influenza vaccination reminder: 11/30/2023 Date of most recent vaccination assessment: 11/30/2023 Treatment Plan Information: Actemra Actpen 162mg/0.9mL Inject 1 pen (162mg) subcutaneously every other week. (M06.00) Seronegative rheumatoid arthritis Past treatment: Humira Est. Tx Plan Start Date: 10/09/2023 Estimated Start Date Info: No information available Est. Estimated Treatment Duration: Until loss of efficacy and/or no longer tolerated. Peggy Paige, [facility], Inflammatory/Allergy P:[phone] Telephone encounter Note* Telephone Encounter - Gracy Leyva RP - 05/03/2024 7:39 AM EST Humira weekly dosing Rx was sent to [facility], but patient fills Humira with [facility]. Please approve this order to send Rx to [facility]. Requested Prescriptions Pending Prescriptions Disp Refills adalimumab (HUMIRA,CF, PEN) 40 mg/0.4 mL pen kit 4 Each 2 Sig: Inject 40mg(1 pen) subcutaneously one time a week. Ivelisse Leyva PharmD Clinical Pharmacist, [facility] ; Pool: P [facility] Pool #: [id number] [facility]02-25-2025 Miscellaneous Notes* Telephone Encounter - Gracy Leyva RP - 05/03/2024 7:39 AM EST Humira weekly dosing Rx was sent to [facility], but patient fills Humira with [facility]. Please approve this order to send Rx to [facility]. Requested Prescriptions Pending Prescriptions Disp Refills adalimumab (HUMIRA,CF, PEN) 40 mg/0.4 mL pen kit 4 Each 2 Sig: Inject 40mg(1 pen) subcutaneously one time a week. Ivelisse Leyva PharmD Clinical Pharmacist, [facility] ; Pool: [facility] Pool #: [id number] documented in this encounterOhio[facility]25 Telephone encounter Note * Telephone Encounter - Eugenia Medellin - 04/26/2024 3:08 PM EST NOT DUPLICATE Patient called, states colchicine and prednisone will not ship until 05/07/24. She is asking for 2wk supply of both medications to be sent to local pharmacy to bridge the gap until she receives scripts Prednisone 5mg x 3 daily Colchicine 0.5mg x2 daily [facility]02-18-2025 Miscellaneous Notes* Telephone Encounter - Eugenia Medellin - 04/26/2024 3:08 PM EST NOT DUPLICATE Patient called, states colchicine and prednisone will not ship until 05/07/24. She is asking for 2wk supply of both medications to be sent to local pharmacy to bridge the gap until she receives scripts Prednisone 5mg x 3 daily Colchicine 0.5mg x2 daily documented in this encounterOhio[facility]02-12-2025 Telephone encounter Note * Telephone Encounter - Aimee Garcia RN - 04/20/2024 9:50 AM EST Images from the original note were not included. Most recent Rheumatology visit: 04/07/2024 (with Chris Cody) Last Bone Density on file: None on file Rheumatology Care Team: None on file Recent Office Visits - This Specialty 04/07/2024 Seronegative rheumatoid arthritis (HCC) Rheumatology Chris Cody MD 01/01/2024 Seronegative rheumatoid arthritis (HCC) Rheumatology Chris Cody MD 10/01/2023 Seronegative rheumatoid arthritis (HCC) Rheumatology Chris Cody MD Upcoming Rheumatology Appointments - Next 365 Days Visit Type Date Time Department [facility] 05/26/2024 11:00 AM [facility] A50 CBC: Latest Ref Rng & Units 12/30/2023 04/08/2024 CBC WBC 3.70 - 11.00 k/uL 11.03 13.43 Hemoglobin 11.5 - 15.5 g/dL 14.0 14.4 Hematocrit 36.0 - 46.0 % 41.8 44.0 Platelet Count 150 - 400 k/uL 225 209 Abs Neut (ANC) 1.45 - 7.50 k/uL 9.02 11.34 Abs Lymph 1.00 - 4.00 k/uL 1.22 0.97 Vitamin D: None on file in the last 6 months LFT: Latest Ref Rng & Units 12/30/2023 04/08/2024 CMP Sodium 136 - 144 mmol/L 144 Potassium 3.7 - 5.1 mmol/L 3.9 Chloride 98 - 107 mmol/L 104 CO2 22 - 30 mmol/L 28 Glucose 74 - 99 mg/dL 136 BUN 7 - 21 mg/dL 31 Creatinine 0.58 - 0.96 mg/dL 1.18 1.11 Calcium 8.5 - 10.2 mg/dL 9.9 AST 13 - 35 U/L 37 31 ALT 7 - 38 U/L 57 45 Alkaline Phosphatase 34 - 123 U/L 77 88 Hepatic Function: Latest Ref Rng & Units 12/30/2023 04/08/2024 ALBUMIN Albumin 3.9 - 4.9 g/dL 4.2 4.0 Bilirubin, Total 0.2 - 1.3 mg/dL 0.3 0.4 Bilirubin, Direct <0.2 mg/dL <0.2 Alkaline Phosphatase 34 - 123 U/L 77 88 AST 13 - 35 U/L 37 31 ALT 7 - 38 U/L 57 45 Protein, Total 6.3 - 8.0 g/dL 6.1 6.4 Creatinine: Latest Ref Rng & Units 12/30/2023 04/08/2024 Creatinine Creatinine 0.58 - 0.96 mg/dL 1.18 1.11 ESR/CRP: Latest Ref Rng & Units 11/21/2022 04/08/2024 ESR, WSR WSR 0 - 20 mm/hr 5 2 Latest Ref Rng & Units 11/21/2022 04/08/2024 CRP CRP <0.9 mg/dL <0.3 0.3 Uric Acid: Latest Ref Rng & Units 09/28/2023 12/30/2023 Uric Acid Uric Acid 2.5 - 6.6 mg/dL 2.8 3.3 Open Standing (Multiple Instance) Lab Orders None Open Future (Single Instance) Lab Orders None Aimee Garcia RN edicine [facility]02-12-2025 Miscellaneous Notes* Telephone Encounter - Aimee Garcia RN - 04/20/2024 9:50 AM EST Images from the original note were not included. Most recent Rheumatology visit: 04/07/2024 (with Chris Cody) Last Bone Density on file: None on file Rheumatology Care Team: None on file Recent Office Visits - This Specialty 04/07/2024 Seronegative rheumatoid arthritis (HCC) Rheumatology Chris Cody MD 01/01/2024 Seronegative rheumatoid arthritis (HCC) Rheumatology Chris Cody MD 10/01/2023 Seronegative rheumatoid arthritis (HCC) Rheumatology Chris Cody MD Upcoming Rheumatology Appointments - Next 365 Days Visit Type Date Time Department [facility] 05/26/2024 11:00 AM [facility] A50 CBC: Latest Ref Rng & Units 12/30/2023 04/08/2024 CBC WBC 3.70 - 11.00 k/uL 11.03 13.43 Hemoglobin 11.5 - 15.5 g/dL 14.0 14.4 Hematocrit 36.0 - 46.0 % 41.8 44.0 Platelet Count 150 - 400 k/uL 225 209 Abs Neut (ANC) 1.45 - 7.50 k/uL 9.02 11.34 Abs Lymph 1.00 - 4.00 k/uL 1.22 0.97 Vitamin D: None on file in the last 6 months LFT: Latest Ref Rng & Units 12/30/2023 04/08/2024 CMP Sodium 136 - 144 mmol/L 144 Potassium 3.7 - 5.1 mmol/L 3.9 Chloride 98 - 107 mmol/L 104 CO2 22 - 30 mmol/L 28 Glucose 74 - 99 mg/dL 136 BUN 7 - 21 mg/dL 31 Creatinine 0.58 - 0.96 mg/dL 1.18 1.11 Calcium 8.5 - 10.2 mg/dL 9.9 AST 13 - 35 U/L 37 31 ALT 7 - 38 U/L 57 45 Alkaline Phosphatase 34 - 123 U/L 77 88 Hepatic Function: Latest Ref Rng & Units 12/30/2023 04/08/2024 ALBUMIN Albumin 3.9 - 4.9 g/dL 4.2 4.0 Bilirubin, Total 0.2 - 1.3 mg/dL 0.3 0.4 Bilirubin, Direct <0.2 mg/dL <0.2 Alkaline Phosphatase 34 - 123 U/L 77 88 AST 13 - 35 U/L 37 31 ALT 7 - 38 U/L 57 45 Protein, Total 6.3 - 8.0 g/dL 6.1 6.4 Creatinine: Latest Ref Rng & Units 12/30/2023 04/08/2024 Creatinine Creatinine 0.58 - 0.96 mg/dL 1.18 1.11 ESR/CRP: Latest Ref Rng & Units 11/21/2022 04/08/2024 ESR, WSR WSR 0 - 20 mm/hr 5 2 Latest Ref Rng & Units 11/21/2022 04/08/2024 CRP CRP <0.9 mg/dL <0.3 0.3 Uric Acid: Latest Ref Rng & Units 09/28/2023 12/30/2023 Uric Acid Uric Acid 2.5 - 6.6 mg/dL 2.8 3.3 Open Standing (Multiple Instance) Lab Orders None Open Future (Single Instance) Lab Orders None Aimee Garcia RN * Telephone Encounter - Fely Villafuerte - 04/20/2024 9:41 AM EST Pt is currently taking 15 mg per day. documented in [facility] encounterOhio[facility] Telephone encounter Note * Telephone Encounter - Fely Villafuerte - 04/20/2024 9:41 AM EST Pt is currently taking 15 mg per day. [facility]02-06-2025 Telephone encounter Note* Telephone Encounter - Irina Pringle RN - 04/14/2024 1:47 PM EST Images from the original note were not included. Most recent Rheumatology visit: 04/07/2024 (with Chris Cheemalavagu) Last Bone Density on file: None on file Rheumatology Care Team: None on file Recent Office Visits - This Specialty 04/07/2024 Seronegative rheumatoid arthritis (HCC) Rheumatology Chris Cody MD 01/01/2024 Seronegative rheumatoid arthritis (HCC) Rheumatology Chris Cody MD 10/01/2023 Seronegative rheumatoid arthritis (HCC) Rheumatology Chris Cody MD Upcoming Rheumatology Appointments - Next 365 Days Visit Type Date Time Department [facility] 05/26/2024 11:00 AM [facility] A50 CBC: Latest Ref Rng & Units 12/30/2023 04/08/2024 CBC WBC 3.70 - 11.00 k/uL 11.03 13.43 Hemoglobin 11.5 - 15.5 g/dL 14.0 14.4 Hematocrit 36.0 - 46.0 % 41.8 44.0 Platelet Count 150 - 400 k/uL 225 209 Abs Neut (ANC) 1.45 - 7.50 k/uL 9.02 11.34 Abs Lymph 1.00 - 4.00 k/uL 1.22 0.97 Vitamin D: None on file in the last 6 months LFT: Latest Ref Rng & Units 12/30/2023 04/08/2024 CMP Sodium 136 - 144 mmol/L 144 Potassium 3.7 - 5.1 mmol/L 3.9 Chloride 98 - 107 mmol/L 104 CO2 22 - 30 mmol/L 28 Glucose 74 - 99 mg/dL 136 BUN 7 - 21 mg/dL 31 Creatinine 0.58 - 0.96 mg/dL 1.18 1.11 Calcium 8.5 - 10.2 mg/dL 9.9 AST 13 - 35 U/L 37 31 ALT 7 - 38 U/L 57 45 Alkaline Phosphatase 34 - 123 U/L 77 88 Hepatic Function: Latest Ref Rng & Units 12/30/2023 04/08/2024 ALBUMIN Albumin 3.9 - 4.9 g/dL 4.2 4.0 Bilirubin, Total 0.2 - 1.3 mg/dL 0.3 0.4 Bilirubin, Direct <0.2 mg/dL <0.2 Alkaline Phosphatase 34 - 123 U/L 77 88 AST 13 - 35 U/L 37 31 ALT 7 - 38 U/L 57 45 Protein, Total 6.3 - 8.0 g/dL 6.1 6.4 Creatinine: Latest Ref Rng & Units 12/30/2023 04/08/2024 Creatinine Creatinine 0.58 - 0.96 mg/dL 1.18 1.11 ESR/CRP: Latest Ref Rng & Units 11/21/2022 04/08/2024 ESR, WSR WSR 0 - 20 mm/hr 5 2 Latest Ref Rng & Units 11/21/2022 04/08/2024 CRP CRP <0.9 mg/dL <0.3 0.3 Uric Acid: Latest Ref Rng & Units 09/28/2023 12/30/2023 Uric Acid Uric Acid 2.5 - 6.6 mg/dL 2.8 3.3 Open Standing (Multiple Instance) Lab Orders None Open Future (Single Instance) Lab Orders None ' [facility]02-06-2025 Miscellaneous Notes* Telephone Encounter - Irina Pringle RN - 04/14/2024 1:47 PM EST Images from the original note were not included. Most recent Rheumatology visit: 04/07/2024 (with Chris Cody) Last Bone Density on file: None on file Rheumatology Care Team: None on file Recent Office Visits - This Specialty 04/07/2024 Seronegative rheumatoid arthritis (HCC) Rheumatology Chris Cody MD 01/01/2024 Seronegative rheumatoid arthritis (HCC) Rheumatology Chris Cody MD 10/01/2023 Seronegative rheumatoid arthritis (HCC) Rheumatology Chris Cody MD Upcoming Rheumatology Appointments - Next 365 Days Visit Type Date Time Department [facility] 05/26/2024 11:00 AM [facility] MAIN A50 CBC: Latest Ref Rng & Units 12/30/2023 04/08/2024 CBC WBC 3.70 - 11.00 k/uL 11.03 13.43 Hemoglobin 11.5 - 15.5 g/dL 14.0 14.4 Hematocrit 36.0 - 46.0 % 41.8 44.0 Platelet Count 150 - 400 k/uL 225 209 Abs Neut (ANC) 1.45 - 7.50 k/uL 9.02 11.34 Abs Lymph 1.00 - 4.00 k/uL 1.22 0.97 Vitamin D: None on file in the last 6 months LFT: Latest Ref Rng & Units 12/30/2023 04/08/2024 CMP Sodium 136 - 144 mmol/L 144 Potassium 3.7 - 5.1 mmol/L 3.9 Chloride 98 - 107 mmol/L 104 CO2 22 - 30 mmol/L 28 Glucose 74 - 99 mg/dL 136 BUN 7 - 21 mg/dL 31 Creatinine 0.58 - 0.96 mg/dL 1.18 1.11 Calcium 8.5 - 10.2 mg/dL 9.9 AST 13 - 35 U/L 37 31 ALT 7 - 38 U/L 57 45 Alkaline Phosphatase 34 - 123 U/L 77 88 Hepatic Function: Latest Ref Rng & Units 12/30/2023 04/08/2024 ALBUMIN Albumin 3.9 - 4.9 g/dL 4.2 4.0 Bilirubin, Total 0.2 - 1.3 mg/dL 0.3 0.4 Bilirubin, Direct <0.2 mg/dL <0.2 Alkaline Phosphatase 34 - 123 U/L 77 88 AST 13 - 35 U/L 37 31 ALT 7 - 38 U/L 57 45 Protein, Total 6.3 - 8.0 g/dL 6.1 6.4 Creatinine: Latest Ref Rng & Units 12/30/2023 04/08/2024 Creatinine Creatinine 0.58 - 0.96 mg/dL 1.18 1.11 ESR/CRP: Latest Ref Rng & Units 11/21/2022 04/08/2024 ESR, WSR WSR 0 - 20 mm/hr 5 2 Latest Ref Rng & Units 11/21/2022 04/08/2024 CRP CRP <0.9 mg/dL <0.3 0.3 Uric Acid: Latest Ref Rng & Units 09/28/2023 12/30/2023 Uric Acid Uric Acid 2.5 - 6.6 mg/dL 2.8 3.3 Open Standing (Multiple Instance) Lab Orders None Open Future (Single Instance) Lab Orders None ' documented in this encounterOhio[facility]01-[facility]25 Instructions* Patient Instructions* Chris Cody MD - 04/07/2024 11:03 AM EST Go down to the first floor of this building for lab work If the blood work looks stable, we can start leflunomide 1 pill daily About 1 month after starting leflunomide, we can reduce prednisone by 1 mg every 2 weeks Send me the results of your bone density scan to [id number] Follow-up in 6 weeks documented in this encounterOhio[facility]01-30-2025 NoteHNO ID: [id number] Author: CHRIS CODY MD Service: ? Author Type: Physician Type: Progress Notes Filed: 04/07/2024 14:01 Note Text: Rheumatology Clinic Date of Service: 04/07/2024 Patient: Savannah Aguirre Medical Record: [id number] Primary Care Physician: Shahab Adams DO Last Rheumatology visit: 01/01/2024 (with Chris Cody) History of Present Illness Savannah Aguirre is a 63 year old White female who presents on 04/07/2024 for in person visit for evaluation of Rheumatoid Arthritis. She is currently taking adalimumab, prednisone. Savannah is both RF - 9 (11/21/2022) and CCP - 13.5 (11/21/2022) negative. Her most recent CHASIDY was negative (01/16/2023). HISTORY OF PRESENT ILLNESS Patient scheduled to see me today for arthritis. 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 8-10 years dx'ed with RA but blood test and pain- hips, shoulders, feet. Patient has CRI, she used Methotrexate for one week and stopped. Treatment has included low dose predisone forever. Plaquenil Tried Enbrel about 2 years ago- states not sure if this helped. Stopped the Enbrel as prescription ran out. Then moved to [facility]. - thinks again on for a few years , she is not quite sure when last injection was, maybe 9-12 months ago. Not sure if the [place] was helping Current medications: Plaquenil 200 mg BID- goes every 6 months to opthal. Past Medical History: - Chronic kidney disease stage III (2/2 chronic NSAID use) - Pain management Past Surgical History: - Tonsillectomy - Hysterectomy - Thyroid partial - Carpal tunnel release b/l - Spinal cord stimulator placement and removal Family History: - mother had some sort of pain issues (fibromyalgia) - grandmother - maybe osteoarthritis Social History: - Never smoker - Rare alcohol use - No other drugs Seen pain management- she is on norco 2-4 pill per day, gabapentin 3 times per day. + chronic back pain, had past spinal cord stimulator that had to be removed body rejected it' No prior surgery on her joints. Joints are not good. Describes dull tenderness- wrists, back, ankles, feet. She is getting swelling of her joints. She has some nodules of wrist and hand. Likes to sew, crafting, not on regular exercise regime, ADL's Has also been diagnosed Fibromyalgia, maybe on antidepressant but made me more depressed. Sleep is poor. Takes naps during the day. 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 INTERVAL HISTORY The wendy has been making her sick to her stomach. Bad abdominal cramps, diarrhea, headaches. She has since tapered off. She saw the social media executive today who saw some early signs of HCQ toxicity. She has increased the frequency of humira to every week. She does feel that there have been improvements in her swelling in the joints. She is still on prednisone 15 mg daily prednisone. She currently takes gabapentin 400 mg 2-3 times per day. She previously tried 600 mg TID, but this caused too much DEPUTY JAILER side effect. Cymbalta caused depression. Patient-Entered Data PROMIS Assessments 09/29/2023 12/30/2023 04/06/2024 PROMIS Global Health - (T-Scores - the mean of general population = 50. Five points is a clinically meaningful difference.) Physical T-Score 29.6 39.8 39.8 Mental T-Score 38.8 48.3 38.8 09/29/2023 12/30/2023 04/06/2024 PROMIS CAT Pain Interference PROMIS Pain Interference T-Score (range: 10 - 90) 72 (severe) 67 (moderate) 68 (moderate) PROMIS Pain Interference Percentile 1 4 4 PROMIS Adult Short Form-Global Health Score (Mental) 38.8 (Fair) 48.3 (Very Good) 38.8 (Fair) 09/29/2023 12/30/2023 04/06/2024 PROMIS CAT Fatigue PROMIS Fatigue T-Score 69 (moderate) 64 (moderate) 62 (moderate) PROMIS Fatigue Percentile 3 8 12 09/29/2023 12/30/2023 04/06/2024 PROMIS PHYSICAL FUNCTION T-SCORE PROMIS Physical Function T-Score 32 (moderate dysfunction) 31 (moderate dysfunction) 33 (moderate dysfunction) Physical Function Percentile 4 3 4 RAPID 3 [facility] Activities of Daily Living 04/06/2024 11:40 PM 12/30/2023 8:34 PM 09/29/2023 10:14 PM First answer obtained - 11/18/2022 1:01 AM Dress self? With SOME difficulty With SOME difficulty With MUCH difficulty With SOME difficulty Get in and out of bed? With SOME difficulty With SOME difficulty With MUCH difficulty With SOME difficulty Walk outdoors? With SOME difficulty With SOME difficulty With MUCH difficulty With SOME difficulty Wash and dry body? With SOME difficulty With SOME difficulty With MUCH difficulty With SOME difficulty Get in and out of car? With SOME difficulty With SOME difficulty With MUCH difficulty With SOME difficulty RAPID 3 Disease Activity Weighed Score Levels: 0 - 1: Near Remission 1.3 - 2.0: Low Severity 2.3 - 4.0: M (more content not included)...[facility] History of Present illness Narrative* Chris Cody MD - 04/07/2024 10:35 AM EST Images from the original note were not included. Rheumatology Clinic Date of Service: 04/07/2024 Patient: Savannah Aguirre Medical Record: [id number] Primary Care Physician: Shahab Adams DO Last Rheumatology visit: 01/01/2024 (with Chris Cody) History of Present Illness Savannah Aguirre is a 63 year old White female who presents on 04/07/2024 for in person visit for evaluation of Rheumatoid Arthritis. She is currently taking adalimumab, prednisone. Savannah is both RF - 9 (11/21/2022) and CCP - 13.5 (11/21/2022) negative. Her most recent CHASIDY was negative (01/16/2023). HISTORY OF PRESENT ILLNESS Patient scheduled to see me today for arthritis. 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 8-10 years dx'ed with RA but blood test and pain- hips, shoulders, feet. Patient has CRI, she used Methotrexate for one week and stopped. Treatment has included low dose predisone forever. Plaquenil Tried Enbrel about 2 years ago- states not sure if this helped. Stopped the Enbrel as prescriptionran out. Then moved to [place]. - thinks again on for a few years , she is not quite sure when last injection was, maybe 9-12 months ago. Not sure if the [place] was helping Current medications: Plaquenil 200 mg BID- goes every 6 months to opthal. Past Medical History: - Chronic kidney disease stage III (2/2 chronic NSAID use) - Pain management Past Surgical History: - Tonsillectomy - Hysterectomy - Thyroid partial - Carpal tunnel release b/l - Spinal cord stimulator placement and removal Family History: - mother had some sort of pain issues (fibromyalgia) - grandmother - maybe osteoarthritis Social History: - Never smoker - Rare alcohol use - No other drugs Seen pain management- she is on norco 2-4 pill per day, gabapentin 3 times per day. + chronic back pain, had past spinal cord stimulator that had to be removed body rejected it' No prior surgery on her joints. Joints are not good. Describes dull tenderness- wrists, back, ankles, feet. She is getting swelling of her joints. She has some nodules of wrist and hand. Likes to sew, crafting, not on regular exercise regime, ADL's Has also been diagnosed Fibromyalgia, maybe on antidepressant but made me more depressed. Sleep is poor. Takes naps during the day. 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 INTERVAL HISTORY The wendy has been making her sick to her stomach. Bad abdominal cramps, diarrhea, headaches. Shehas since tapered off. She saw the social media executive today who saw some early signs of HCQ toxicity. She has increased the frequency of humira to every week. She does feel that there have been improvements in her swelling in the joints. She is still on prednisone 15 mg daily prednisone. She currently takes gabapentin 400 mg 2-3 times per day. She previously tried 600 mg TID, but this caused too much DEPUTY JAILER side effect. Cymbalta caused depression. Patient-Entered Data PROMIS Assessments 09/29/2023 12/30/2023 04/06/2024 PROMIS Global Health - (T-Scores - the mean of general population = 50. Five points is a clinicallymeaningful difference.) Physical T-Score 29.6 39.8 39.8 Mental T-Score 38.8 48.3 38.8 09/29/2023 12/30/2023 04/06/2024 PROMIS CAT Pain Interference PROMIS Pain Interference T-Score (range: 10 - 90) 72 (severe) 67 (moderate) 68 (moderate) PROMIS Pain Interference Percentile 1 4 4 PROMIS Adult Short Form-Global Health Score (Mental) 38.8 (Fair) 48.3 (Very Good) 38.8 (Fair) 09/29/2023 12/30/2023 04/06/2024 PROMIS CAT Fatigue PROMIS Fatigue T-Score 69 (moderate) 64 (moderate) 62 (moderate) PROMIS Fatigue Percentile 3 8 12 09/29/2023 12/30/2023 04/06/2024 PROMIS PHYSICAL FUNCTION T-SCORE PROMIS Physical Function T-Score 32 (moderate dysfunction) 31 (moderate dysfunction) 33 (moderate dysfunction) Physical Function Percentile 4 3 4 RAPID 3 Melara Activities of Daily Living 04/06/2024 11:40 PM 12/30/2023 8:34 PM 09/29/2023 10:14 PM First answer obtained - 11/18/2022 1:01 AM Dress self? With SOME difficulty With SOME difficulty With MUCH difficulty With SOME difficulty Get in and out of bed? With SOME difficulty With SOME difficulty With MUCH difficulty With SOME difficulty Walk outdoors? With SOME difficulty With SOME difficulty With MUCH difficulty With SOME difficulty Wash and dry body? With SOME difficulty With SOME difficulty With MUCH difficulty With SOME difficulty Get in and out of car? With SOME difficulty With SOME difficulty With MUCH difficulty With SOME difficulty RAPID 3 Disease Activity Weighed Score Levels: 0 - 1: Near Remission 1.3 - 2.0: Low Severity 2.3 - 4.0: Moderate Severity 4.3 - 10.0: High Severity 09/29/2023 12/30/2023 04/06/2024 RAPID-3 Weighed Score RAPID 3 Weighed Score Incomplete 5.11 (High severity ) 5.28 (High severity ) Patient Health Questionnaire (PHQ-9) No data to display (0-4) minimal depression, (5-9) mild depression, (10-14) moderate depression, (15-19) moderately severe depression, (20-27) severe depression Review of Systems Review of Systems CONSTITUTION: Negative for: Fever and Recent weight change HEENT: Positive for: Trouble swallowing Negative for: Nosebleeds, Mouth sores and Dry mouth RESPIRATORY: Negative for: Cough, Shortness of breath and Pain with breathing GASTROINTESTINAL: Negative for: Melena, Diarrhea and Abdominal pain MUSCULOSKELETAL: Positive for: Arthralgias, Myalgias, Muscle weakness, Joint swelling and Morning Joint Stiffness NEUROLOGICAL: Positive for: Numbness Negative for: Memory loss SKIN: Negative for: Rash, Skin changes, Hair loss and Nail changes EYES: Positive for: Eye redness Negative for: Eye pain, Eye dryness and visual disturbance CARDIOVASCULAR: Negative for: Chest pain and Leg swelling GENITOURINARY: Negative for: Dysuria and Hematuria HEMATOLOGIC/LYMPHATIC: Negative for: Swollen glands All other reviewed and negative other than HPI. Current Medications Current Outpatient Medications on File Prior to Visit Medication Sig predniSONE (DELTASONE) 5 mg tablet Take 3 tablets by mouth once daily. adalimumab (HUMIRA,CF, PEN) 40 mg/0.4 mL pen kit Inject 40mg(1 pen) subcutaneously one time a week. allopurinol (ZYLOPRIM) 300 mg tablet Take 1 tablet by mouth once daily. colchicine 0.6 mg tablet Take 1 tablet by mouth two times a day. Milnacipran (SAVELLA) 50 mg tab Take 1 tablet by mouth two times a day. Omeprazole 40 mg capsule Take 40 mg by mouth twice daily. levothyroxine (SYNTHROID) 100 mcg tablet Take 100 mcg by mouth once daily. hydroxychloroquine (PLAQUENIL) 200 mg tablet Take by mouth twice daily. metoprolol tartrate, short acting, (LOPRESSOR) 25 mg tablet Take 50 mg by mouth once daily. triamterene-hydrochlorothiazide 37.5-25 mg per capsule Take 1 capsule by mouth once daily. potassium chloride (K-SUNG, KLOR-CON) 20 mEq packet Take 20 mEq by mouth three times daily. magnesium oxide 400 mg cap Take 400 mg by mouth twice daily. gabapentin (NEURONTIN) 300 mg capsule Take 300 mg by mouth once daily. HYDROcodone-acetaminophen (NORCO) 5-325 mg per tablet Take 1 tablet by mouth twice daily. buprenorphine 15 mcg/hour ptwk Apply as directed. Current Facility-Administered Medications on File Prior to Visit Medication tropicamide 1 % 1 Drop (MYDRIACYL) PHENYLephrine 2.5 % 1 Drop (AK-DILATE, LILA-SYNEPHRINE) fluorescein-benoxinate 0.3-0.4 % 1 Drop (FLURESS) proparacaine 0.5 % 1 Drop (ALCAINE) Last Ophthalmology Check for Plaquenil (Hydroxychloroquine) Last OCT Macula Exam OCT MACULA CIRRUS OU (BOTH EYES) Exam End: 04/07/2024 8:48 AM (Final result) Narrative: Date of Procedure 04/07/2024. Radio Dispatcher Information Theater Technician: BRYAN. OCT Macula Interpretation Right Eye Findings include IS/OS junction. Left Eye Findings include IS/OS junction. Interval Change Right Eye Initial. Left Eye Initial. Notes Early paracentral EZ changes Both Eyes c/w early plaquenil toxicity Last Visual Field Exam VISUAL FIELD 10-2 OU (BOTH EYES) Exam End: 04/07/2024 8:36 AM (Final result) Narrative: Date of Procedure 04/07/2024. Radio Dispatcher Information Theater Technician: PRASANTH. Start time: 8:22 AM. Stop time: 8:36 AM. Reliability Right Eye Borderline. Left Eye Borderline. Interpretation Right Eye Non-specific defect. Left Eye Non-specific defect. Interval Change Right Eye Initial. Left Eye Initial. Labs See HPI Imaging Last XR Hand/Finger - Impression Only XR HAND GENERAL 3V PA/LAT/OBL BILATERAL Exam End: 11/21/2022 3:07 PM (Final result) Impression: IMPRESSION: No radiographic findings of inflammatory arthropathy. Couture Alterations Dressmaker: RANDY Transcribe Date/Time: Nov 21 2022 3:31P... Last XR Foot / Toe - Impression Only XR FOOT GENERAL 3V AP/LAT/OBL BILATERAL Exam End: 11/21/2022 3:07 PM (Final result) Impression: IMPRESSION: Degenerative changes. No radiographic findings of inflammatory arthropathy. Couture Alterations Dressmaker: RANDY ... Physical Exam BP 146/69 Pulse 55 Temp (Src) 97.4 (Temporal) Ht 5' 3 (1.60m) Wt 195 lb 8.8 oz (88.7kg) BMI 34.65 kg/(m^2). Exam: GENERAL: NAD HEENT: NCAT, PERRLA, EOMI, no scleral icterus, oropharynx clear and without lesions/ulcers. CV: Normal rate, regular rhythm. No appreciable murmur/rub/gallop. PULM: Normal WOB and RR on RA. Lung salmeron CTA bilaterally without appreciable wheezes or crackles. EXT: 2+ radial and DP/PT pulses. No edema. SKIN: Warm, dry, no significant rashes, no significant bruising. NEURO: A&Ox3. Mental status and speech normal. MSK: Shoulders: Intact ROM without reported pain. No appreciable swelling or tenderness with palpation. Elbows: No flexion contractures. No appreciable swelling, deformities, or tenderness with palpation. Wrists: some restriction in ROM but no clear synovitis Hands: tenderness without swelling/synovitis of the right hand. Minimal dorsal left hand swelling Hips: Intact ROM. No tenderness with palpation. Knees: No gross deformity. No appreciable effusion. 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 This is a patient with a 10 year history of reported seronegative rheumatoid arthritis. Her description is largely non-inflammatory, though she does have clear swelling and episodes of exquisite painwith minimal provocation. She also has episodes of more diffuse body pain and myalgias. She has previously used the following medications: - Methotrexate - Hydroxychloroquine (currently in use) - Abatacept - Etanercept - Adalimumab - Prednisone 5 mg daily She has not experienced significant benefit with any of these medications. Humira x 4 months has not improved her symptoms. At previous there was worsening inflammatory arthritis consistent with seronegative RA. We increased humira from 40 mg eery other week to weekly. She still has difficulty tapering steroids below 15 mg. Unclear if her residual pain is from central sensitization, osteoarthritis, or RA. Will add leflunomide if labs allow today. Discussed risks/benefits/side effects of this medication. Will need to obtain results from recent BMD. She will likely need to start a bisphosphonate. Can stay off milnacipran due to side effects. May eventually need to start treatment for fibromyalgia. Given the recent concern for early HCQ toxicity, will stop this immediately. Plan: - Continue allopurinol 300 mg daily - Continue colchicine 0.6 mg daily - STOP hydroxychloroquine 200 mg BID - Continue adalimumab to 40 mg weekly - she has had good but incomplete response to 40 mg every other week - If LFTs back to normal, start leflunomide 20 mg daily - Continue prednisone 15 mg for now -> will need to start a taper by 1 mg at a time in 1 month - Follow-up in 6 weeks Orders this visit: Office Visit on 04/07/24 COMPLETE BLOOD COUNT AND DIFFERENTIAL COMPREHENSIVE METABOLIC PANEL SEDIMENTATION RATE, WESTERGREN C-REACTIVE PROTEIN No follow-ups on file. CC: PCP: Shahab Adams DO [address] [facility] [address] [place] [facility] [address] Phone #: [phone] I spent a total of 33 minutes on the date of the service which included preparing to see the patient, [id number] patient care, completing clinical documentation, obtaining and/or reviewing separately obtained history, performing a medically appropriate examination, counseling and educating the pat ient/family/caregiver, ordering medications, tests, or procedures, and independently interpreting results (not separately reported). Chris Cody MD Rheumatology Date: April 07, 2024 Time: 10:35 AM documented in this encounterOhio[facility]01-30-2025 NoteDate of Procedure 04/07/2024. Radio Dispatcher Information Theater Technician: PRASANTH. Start time: 8:22 AM. Stop time: 8:36 AM. Reliability Right Eye Borderline. Left Eye Borderline. Interpretation Right Eye Non-specific defect. Left Eye Non-specific defect. Interval Change Right Eye Initial. Left Eye Initial.[id number] NoteDate of Procedure 04/07/2024. Radio Dispatcher Information Theater Technician: BRYAN. OCT Macula Interpretation Right Eye Findings include IS/OS junction. Left Eye Findings include IS/OS junction. Interval Change Right Eye Initial. Left Eye Initial. Notes Early paracentral EZ changes Both Eyes c/w early plaquenil toxicityZEISS 04-07-2024 NoteHNO ID: [id number] Author: CHRISTY DENG MD Service: ? Author Type: Physician Type: Progress Notes Filed: 04/07/2024 10:01 Note Text: New patient referred due to concern for plaquenil toxicity Previously followed with Dr. Ochoa at [facility] Hydroxychloroquine use - Indication: rheumatoid arthritis; pt is uncertain if it has provided significant symptomatic benefit to her - OCT (04/07/2024): paracentral EZ irregularity Both Eyes - Visual Field 24-2 (04/07/2024): No paracentral loss that would be consistent with Plaq OD: low reliability due to fixation losses; rim artifact OS: very low reliability due to high false negatives; rim artifact - Per outside records, outside VF was concerning for progressive central depression (though actual HVF reports not available) - Has been using plaquenil 400 mg daily for 10 years (a few times dose to 200mg daily for a short period, has never been higher than 400mg daily) - The recommended dosage is the lower of 5 mg/kg/day based on real body weight - Risk factors for toxicity include daily dose and duration of use, renal disease (pt has elevated Cr, told this is due to taking too much NSAID), tamoxifen use, history of retinal or macular disease - She is ~87 kg which gives a maximum safe ophthalmic dose of 435 mg daily by real body weight. Patient reports that her weight has been approximately stable throughout her course of taking plaquenil - Assessment and Plan: - Patient has been on a safe dose of Plaquenil since initiating therapy 10 years ago though has the added risk factor of renal disease - VF not useful due to low reliability - OCT is concerning for paracentral EZ irregularity Both Eyes - Though the changes are mild, the potential consequences of plaquenil toxicity are severe and irreversible thus would recommend reducing or discontinuing of the medication at this time - Patient is seeing her customer sales advisor Dr. Cody ([facility]) today - This looks like early Plaq toxicity so would recommend either changing the med or at a minimum reduce the dose of Plaq 2. Cataracts Both Eyes - NVS, observe - Continue routine care at [facility] I have confirmed and edited as necessary the relevant ophthalmic history, ROS, and the clinical/neuro exam findings as obtained by others. I have seen and examined this patient. I have discussed the case and the management of this patient's care with the Resident/Fellow, if applicable. I also have reviewed and agree with the assessment and plan as stated above and agree with all of its relevant components on 04/07/2024 Christy Deng MD Professor of Ophthalmology [facility] History of Present illness Narrative* Christy Deng MD - 04/07/2024 9:02 AM EST New patient referred due to concern for plaquenil toxicity Previously followed with Dr. Ochoa at [facility] Hydroxychloroquine use - Indication: rheumatoid arthritis; pt is uncertain if it has provided significant symptomatic benefit to her - OCT (04/07/2024): paracentral EZ irregularity Both Eyes - Visual Field 24-2 (04/07/2024): No paracentral loss that would be consistent with Plaq OD: low reliability due to fixation losses; rim artifact OS: very low reliability due to high false negatives; rim artifact - Per outside records, outside VF was concerning for progressive central depression (though actual HVF reports not available) - Has been using plaquenil 400 mg daily for 10 years (a few times dose to 200mg daily for a short period, has never been higher than 400mg daily) - The recommended dosage is the lower of 5 mg/kg/day based on real body weight - Risk factors for toxicity include daily dose and duration of use, renal disease (pt has elevated Cr, told this is due to taking too much NSAID), tamoxifen use, history of retinal or macular disease - She is ~87 kg which gives a maximum safe ophthalmic dose of 435 mg daily by real body weight. Patient reports that her weight has been approximately stable throughout her course of taking plaquenil - Assessment and Plan: - Patient has been on a safe dose of Plaquenil since initiating therapy 10 years ago though has theadded risk factor of renal disease - VF not useful due to low reliability - OCT is concerning for paracentral EZ irregularity Both Eyes - Though the changes are mild, the potential consequences of plaquenil toxicity are severe and irreversible thus would recommend reducing or discontinuing of the medication at this time - Patient is seeing her customer sales advisor Dr. Cody ([facility]) today - This looks like early Plaq toxicity so would recommend either changing the med or at a minimum reduce the dose of Plaq 2. Cataracts Both Eyes - NVS, observe - Continue routine care at [facility] I have confirmed and edited as necessary the relevant ophthalmic history, ROS, and the clinical/neuro exam findings as obtained by others. I have seen and examined this patient. I have discussed the case and the management of this patient's care with the Resident/Fellow, if applicable. I also have reviewed and agree with the assessment and plan as stated above and agree with all of its relevant components on 04/07/2024 Christy Deng MD Professor of Ophthalmology [facility] documented in this encounterOhiohealth Berger Hospital01-27-2025 History of Present illness Narrative* Maximo Clark - 04/04/2024 10:33 AM EST [facility] Refill Assessment Medication(s): Humira CF Patient's current medication list and adherence status to current therapy were reviewed by Specialty Pharmacy clinical pharmacist to identify any new drug interactions or non-compliance to therapy. Therapy continues to be appropriate for disease, patient response, and medical condition. Verification of therapeutic benefit and effectiveness with current therapy was completed. Adverse events, barriers in adherence, and side effects were assessed and addressed if applicable. Will proceed with refill with no changes in therapy - patient progressing towards achieving therapeutic goals based on medication- specific laboratory parameters, disease state markers and outcomes. Office/provider notes have been reviewed prior to dispensing the medication. Radio Dispatcher Assessment Patient confirmed: Yes Med/dose confirmed: Yes Supplies needed: Sharps container Missed doses: No Estimated days supply on hand: 1 Next cycle/dose due: 04/08/24 Copay amount: 0 Payment confirmed: Yes Delivery method: FedEx Signature required: No Delivery address: [address] [place] [id number] Delivery date: 04/06/24 Questions or concerns for the pharmacist?: No Did you have any side effects believed to be related to this medication, that resulted in hospitalization?: No Current Outpatient Medications on File Prior to Visit Medication Sig predniSONE (DELTASONE) 5 mg tablet Take 3 tablets by mouth once daily. adalimumab (HUMIRA,CF, PEN) 40 mg/0.4 mL pen kit Inject 40mg(1 pen) subcutaneously one time a week. allopurinol (ZYLOPRIM) 300 mg tablet Take 1 tablet by mouth once daily. colchicine 0.6 mg tablet Take 1 tablet by mouth two times a day. Milnacipran (SAVELLA) 50 mg tab Take 1 tablet by mouth two times a day. Omeprazole 40 mg capsule Take 40 mg by mouth twice daily. levothyroxine (SYNTHROID) 100 mcg tablet Take 100 mcg by mouth once daily. hydroxychloroquine (PLAQUENIL) 200 mg tablet Take by mouth twice daily. metoprolol tartrate, short acting, (LOPRESSOR) 25 mg tablet Take 50 mg by mouth once daily. triamterene-hydrochlorothiazide 37.5-25 mg per capsule Take 1 capsule by mouth once daily. potassium chloride (K-SUNG, KLOR-CON) 20 mEq packet Take 20 mEq by mouth three times daily. magnesium oxide 400 mg cap Take 400 mg by mouth twice daily. gabapentin (NEURONTIN) 300 mg capsule Take 300 mg by mouth once daily. HYDROcodone-acetaminophen (NORCO) 5-325 mg per tablet Take 1 tablet by mouth twice daily. buprenorphine 15 mcg/hour ptwk Apply as directed. No current facility-administered medications on file prior to visit. [facility] SPECIALTY CLINICAL ASSESSMENT - INFLAMMATORY CONDITIONS V6: Assessment to use: Refill Date of influenza vaccination reminder: 11/30/2023 Date of most recent vaccination assessment: 11/30/2023 Treatment Plan Information: Actemra Actpen 162mg/0.9mL Inject 1 pen (162mg) subcutaneously every other week. (M06.00) Seronegative rheumatoid arthritis Past treatment: Humira Est. Tx Plan Start Date: 10/09/2023 Estimated Start Date Info: No information available Est. Estimated Treatment Duration: Until loss of efficacy and/or no longer tolerated. Maximo Clark CPhT [facility], Inflammatory P: [phone] F: [phone] documented in this encounterOhiohealth Berger Hospital01-27-2025 NoteHNO ID: [id number] Author: ?, ?, ? Service: ? Author Type: ? Type: Progress Notes Filed: 04/04/2024 10:36 Note Text: [facility] Refill Assessment Medication(s): Humira CF Patient's current medication list and adherence status to current therapy were reviewed by Specialty Pharmacy clinical pharmacist to identify any new drug interactions or non-compliance to therapy. Therapy continues to be appropriate for disease, patient response, and medical condition. Verification of therapeutic benefit and effectiveness with current therapy was completed. Adverse events, barriers in adherence, and side effects were assessed and addressed if applicable. Will proceed with refill with no changes in therapy - patient progressing towards achieving therapeutic goals based on medication-specific laboratory parameters, disease state markers and outcomes. Office/provider notes have been reviewed prior to dispensing the medication. Radio Dispatcher Assessment Patient confirmed: Yes Med/dose confirmed: Yes Supplies needed: Sharps container Missed doses: No Estimated days supply on hand: 1 Next cycle/dose due: 04/08/24 Copay amount: 0 Payment confirmed: Yes Delivery method: FedEx Signature required: No Delivery address: [address] [place] [id number] Delivery date: 04/06/24 Questions or concerns for the pharmacist?: No Did you have any side effects believed to be related to this medication, that resulted in hospitalization?: No Current Outpatient Medications on File Prior to Visit Medication Sig predniSONE (DELTASONE) 5 mg tablet Take 3 tablets by mouth once daily. adalimumab (HUMIRA,CF, PEN) 40 mg/0.4 mL pen kit Inject 40mg(1 pen) subcutaneously one time a week. allopurinol (ZYLOPRIM) 300 mg tablet Take 1 tablet by mouth once daily. colchicine 0.6 mg tablet Take 1 tablet by mouth two times a day. Milnacipran (SAVELLA) 50 mg tab Take 1 tablet by mouth two times a day. Omeprazole 40 mg capsule Take 40 mg by mouth twice daily. levothyroxine (SYNTHROID) 100 mcg tablet Take 100 mcg by mouth once daily. hydroxychloroquine (PLAQUENIL) 200 mg tablet Take by mouth twice daily. metoprolol tartrate, short acting, (LOPRESSOR) 25 mg tablet Take 50 mg by mouth once daily. triamterene-hydrochlorothiazide 37.5-25 mg per capsule Take 1 capsule by mouth once daily. potassium chloride (K-SUNG, KLOR-CON) 20 mEq packet Take 20 mEq by mouth three times daily. magnesium oxide 400 mg cap Take 400 mg by mouth twice daily. gabapentin (NEURONTIN) 300 mg capsule Take 300 mg by mouth once daily. HYDROcodone-acetaminophen (NORCO) 5-325 mg per tablet Take 1 tablet by mouth twice daily. buprenorphine 15 mcg/hour ptwk Apply as directed. No current facility-administered medications on file prior to visit. [facility] SPECIALTY CLINICAL ASSESSMENT - INFLAMMATORY CONDITIONS V6: Assessment to use: Refill Date of influenza vaccination reminder: 11/30/2023 Date of most recent vaccination assessment: 11/30/2023 Treatment Plan Information: Actemra Actpen 162mg/0.9mL Inject 1 pen (162mg) subcutaneously every other week. (M06.00) Seronegative rheumatoid arthritis Past treatment: Humira Est. Tx Plan Start Date: 10/09/2023 Estimated Start Date Info: No information available Est. Estimated Treatment Duration: Until loss of efficacy and/or no longer tolerated. Maximo Clark CPhT [facility] P: [phone] F: [phone] Telephone encounter Note* Telephone Encounter - Irina Pringle RN - 03/30/2024 7:34 AM EST Images from the original note were not included. Most recent Rheumatology visit: 01/01/2024 (with Chris Cody) Last Bone Density on file: None on file Rheumatology Care Team: None on file Recent Office Visits - This Specialty 01/01/2024 Seronegative rheumatoid arthritis (HCC) Rheumatology Chris Cody MD 10/01/2023 Seronegative rheumatoid arthritis (HCC) Rheumatology Chris Cody MD 06/26/2023 Chronic gout of multiple sites, unspecified cause Rheumatology Chris Cody MD Upcoming Rheumatology Appointments - Next 365 Days Visit Type Date Time Department [facility] 04/07/2024 10:00 AM [facility] Last Ophthalmology Check for Plaquenil (Hydroxychloroquine) Last OCT Macula Exam No resulted procedures found. Last Visual Field Exam No resulted procedures found. CBC: Latest Ref Rng & Units 09/28/2023 12/30/2023 CBC WBC 3.70 - 11.00 k/uL 5.03 11.03 Hemoglobin 11.5 - 15.5 g/dL 12.3 14.0 Hematocrit 36.0 - 46.0 % 37.4 41.8 Platelet Count 150 - 400 k/uL 197 225 Abs Neut (ANC) 1.45 - 7.50 k/uL 2.82 9.02 Abs Lymph 1.00 - 4.00 k/uL 1.23 1.22 Vitamin D: None on file in the last 6 months LFT: None on file in the last 6 months Hepatic Function: Latest Ref Rng & Units 09/28/2023 12/30/2023 ALBUMIN Albumin 3.9 - 4.9 g/dL 4.2 4.2 Bilirubin, Total 0.2 - 1.3 mg/dL 0.6 0.3 Bilirubin, Direct <0.2 mg/dL 0.2 <0.2 Alkaline Phosphatase 34 - 123 U/L 108 77 AST 13 - 35 U/L 46 37 ALT 7 - 38 U/L 37 57 Protein, Total 6.3 - 8.0 g/dL 6.3 6.1 Creatinine: Latest Ref Rng & Units 09/28/2023 12/30/2023 Creatinine Creatinine 0.58 - 0.96 mg/dL 1.17 1.18 ESR/CRP: None on file in the last 6 months Uric Acid: Latest Ref Rng & Units 09/28/2023 12/30/2023 Uric Acid Uric Acid 2.5 - 6.6 mg/dL 2.8 3.3 Open Standing (Multiple Instance) Lab Orders Remain Interval Expires Ordered Last Rel. URIC ACID BLOOD [SQURIC] 10/18 Once per month 04/02/24 04/03/23 12/30/23 Auth. provider: Chris Cody MD Assoc. diagnoses: High risk medication use CREATININE BLD [SQCRET] 8 Once per month 04/02/24 04/03/23 12/30/23 Auth. provider: Chris Cody MD Assoc. diagnoses: High risk medication use CBC + DIFF [SQCBCDIF] 10/18 Once per month 04/02/24 04/03/23 12/30/23 Auth. provider: Chris Cody MD Assoc. diagnoses: High risk medication use HEPATIC FUNCTION PNL [SQHFP] 10/18 Once per month 04/02/24 04/03/23 12/30/23 Auth. provider: Chris Cody MD Assoc. diagnoses: High risk medication use Open Future (Single Instance) Lab Orders None [facility]01-[facility] Miscellaneous Notes* Telephone Encounter - Irina Pringle RN - 03/30/2024 7:34 AM EST Images from the original note were not included. Most recent Rheumatology visit: 01/01/2024 (with Chris Cody) Last Bone Density on file: None on file Rheumatology Care Team: None on file Recent Office Visits - This Specialty 01/01/2024 Seronegative rheumatoid arthritis (HCC) Rheumatology Chris Cody MD 10/01/2023 Seronegative rheumatoid arthritis (HCC) Rheumatology Chris Cody MD 06/26/2023 Chronic gout of multiple sites, unspecified cause Rheumatology Chris Cody MD Upcoming Rheumatology Appointments - Next 365 Days Visit Type Date Time Department [facility] 04/07/2024 10:00 AM [facility] MAIN A50 Last Ophthalmology Check for Plaquenil (Hydroxychloroquine) Last OCT Macula Exam No resulted procedures found. Last Visual Field Exam No resulted procedures found. CBC: Latest Ref Rng & Units 09/28/2023 12/30/2023 CBC WBC 3.70 - 11.00 k/uL 5.03 11.03 Hemoglobin 11.5 - 15.5 g/dL 12.3 14.0 Hematocrit 36.0 - 46.0 % 37.4 41.8 Platelet Count 150 - 400 k/uL 197 225 Abs Neut (ANC) 1.45 - 7.50 k/uL 2.82 9.02 Abs Lymph 1.00 - 4.00 k/uL 1.23 1.22 Vitamin D: None on file in the last 6 months LFT: None on file in the last 6 months Hepatic Function: Latest Ref Rng & Units 09/28/2023 12/30/2023 ALBUMIN Albumin 3.9 - 4.9 g/dL 4.2 4.2 Bilirubin, Total 0.2 - 1.3 mg/dL 0.6 0.3 Bilirubin, Direct <0.2 mg/dL 0.2 <0.2 Alkaline Phosphatase 34 - 123 U/L 108 77 AST 13 - 35 U/L 46 37 ALT 7 - 38 U/L 37 57 Protein, Total 6.3 - 8.0 g/dL 6.3 6.1 Creatinine: Latest Ref Rng & Units 09/28/2023 12/30/2023 Creatinine Creatinine 0.58 - 0.96 mg/dL 1.17 1.18 ESR/CRP: None on file in the last 6 months Uric Acid: Latest Ref Rng & Units 09/28/2023 12/30/2023 Uric Acid Uric Acid 2.5 - 6.6 mg/dL 2.8 3.3 Open Standing (Multiple Instance) Lab Orders Remain Interval Expires Ordered Last Rel. URIC ACID BLOOD [SQURIC] 10/18 Once per month 04/02/24 04/03/23 12/30/23 Auth. provider: Chris Cody MD Assoc. diagnoses: High risk medication use CREATININE BLD [SQCRET] 10/18 Once per month 04/02/24 04/03/23 12/30/23 Auth. provider: Chris Cody MD Assoc. diagnoses: High risk medication use CBC + DIFF [SQCBCDIF] 10/18 Once per month 04/02/24 04/03/23 12/30/23 Auth. provider: Chris Cody MD Assoc. diagnoses: High risk medication use HEPATIC FUNCTION PNL [SQHFP] 8 Once per month 04/02/24 04/03/23 12/30/23 Auth. provider: Chris Cody MD Assoc. diagnoses: High risk medication use Open Future (Single Instance) Lab Orders None * Telephone Encounter - Fely Villafuerte - 03/29/2024 3:29 PM EST Pt is currently taking 3 tablets per day. [facility] encounter[facility] Telephone encounter Note * Telephone Encounter - Fely Villafuerte - 03/29/2024 3:29 PM EST Pt is currently taking 3 tablets per day. [facility]01-14-[facility] History of Present illness Narrative* Maximo Clark - 03/22/2024 4:56 PM EST [facility] been servicing patient for cycles/refills of Humira CF. Plan Name: [employer] Phone/Fax: - / - [place] reference number: [id number] Approval Dates: 02/21/2024-03/08/2025 [facility] will continue to service order accordingly. Maximo Clark CPhT [facility] P: [phone] F: [phone] documented in this encounterOhiohealth [facility] Hospital01-14-2025 NoteHNO ID: [id number] Author: ?, ?, ? Service: ? Author Type: ? Type: Progress Notes Filed: 03/22/2024 16:58 Note Text: [facility] been serv[facility] patient for cycles/refills of Humira CF. Plan Name: [employer] Phone/Fax: - / - [place] reference number: [id number] Approval Dates: 02/21/2024-03/08/2025 [facility] will continue to service order accordingly. Maximo Clark [facility] P: [phone] F: [phone] Telephone encounter Note* Telephone Encounter - Gracy Leyva RPh - 03/21/2024 7:05 AM EST Patient needs refill of Humira Date of Savannah Aguirre's last Rheumatology office visit: 01/01/24 Next appointment date: 04/07/24 Last labs: 12/30/23 Last TB test: TB Result Date Value Ref Range Status 11/21/2022 Negative Final Requested Prescriptions Pending Prescriptions Disp Refills adalimumab (HUMIRA,CF, PEN) 40 mg/0.4 mL pen kit 4 Each 2 Sig: Inject 40 mg subcutaneously one time a week. Patient prefers: [facility] Thank you! Ivelisse Leyva, PharmD Clinical Pharmacist, [employer] [facility] ; Pool: P [facility] Pool #: [id number] [facility]01-13-2025 Miscellaneous Notes* Telephone Encounter - Gracy Leyva RPh - 03/21/2024 7:05 AM EST Patient needs refill of Humira Date of Savannah Aguirre's last Rheumatology office visit: 01/01/24 Next appointment date: 04/07/24 Last labs: 12/30/23 Last TB test: TB Result Date Value Ref Range Status 11/21/2022 Negative Final Requested Prescriptions Pending Prescriptions Disp Refills adalimumab (HUMIRA,CF, PEN) 40 mg/0.4 mL pen kit 4 Each 2 Sig: Inject 40 mg subcutaneously one time a week. Patient prefers: [facility] Thank you! Ivelisse Leyva, PharmD Clinical Pharmacist, [employer] [facility] ; Pool: P [facility] Pool #: [id number] documented in this encounterOhiohealth [facility] Hospital12-30-2024 History of Present illness Narrative* Davina Bravo - 03/07/2024 12:00 PM EST [facility] Refill Assessment Medication(s): Casa Patient's current medication list and adherence status to current therapy were reviewed by Specialty Pharmacy clinical pharmacist to identify any new drug interactions or non-compliance to therapy. Therapy continues to be appropriate for disease, patient response, and medical condition. Verification of therapeutic benefit and effectiveness with current therapy was completed. Adverse events, barriers in adherence, and side effects were assessed and addressed if applicable. Will proceed with refill with no changes in therapy - patient progressing towards achieving therapeutic goals based on medication- specific laboratory parameters, disease state markers and outcomes. Office/provider notes have been reviewed prior to dispensing the medication. Radio Dispatcher Assessment Patient confirmed: Yes Med/dose confirmed: Yes Supplies needed: No supplies needed Missed doses: No Estimated days supply on hand: 1 Next cycle/dose due: 03/11/24 Copay amount: 0 Payment confirmed: Yes Delivery method: FedEx Signature required: No Delivery address: [address] [place] [id number] Delivery date: 03/15/24 Questions or concerns for the pharmacist?: No Did you have any side effects believed to be related to this medication, that resulted in hospitalization?: No Current Outpatient Medications on File Prior to Visit Medication Sig allopurinol (ZYLOPRIM) 300 mg tablet Take 1 tablet by mouth once daily. colchicine 0.6 mg tablet Take 1 tablet by mouth two times a day. predniSONE (DELTASONE) 5 mg tablet Take 3 tablets by mouth once daily. Milnacipran (SAVELLA) 50 mg tab Take 1 tablet by mouth two times a day. adalimumab (HUMIRA,CF, PEN) 40 mg/0.4 mL pen kit Inject 40 mg subcutaneously one time a week. Omeprazole 40 mg capsule Take 40 mg by mouth twice daily. levothyroxine (SYNTHROID) 100 mcg tablet Take 100 mcg by mouth once daily. hydroxychloroquine (PLAQUENIL) 200 mg tablet Take by mouth twice daily. metoprolol tartrate, short acting, (LOPRESSOR) 25 mg tablet Take 50 mg by mouth once daily. triamterene-hydrochlorothiazide 37.5-25 mg per capsule Take 1 capsule by mouth once daily. potassium chloride (K-SUNG, KLOR-CON) 20 mEq packet Take 20 mEq by mouth three times daily. magnesium oxide 400 mg cap Take 400 mg by mouth twice daily. gabapentin (NEURONTIN) 300 mg capsule Take 300 mg by mouth once daily. HYDROcodone-acetaminophen (NORCO) 5-325 mg per tablet Take 1 tablet by mouth twice daily. buprenorphine 15 mcg/hour ptwk Apply as directed. No current facility-administered medications on file prior to visit. [facility] CLINICAL ASSESSMENT - INFLAMMATORY CONDITIONS V6: Assessment to use: Refill Date of influenza vaccination reminder: 11/30/2023 Date of most recent vaccination assessment: 11/30/2023 Treatment Plan Information: Actemra Actpen 162mg/0.9mL Inject 1 pen (162mg) subcutaneously every other week. (M06.00) Seronegative rheumatoid arthritis Past treatment: Humira Est. Tx Plan Start Date: 10/09/2023 Estimated Start Date Info: No information available Est. Estimated Treatment Duration: Until loss of efficacy and/or no longer tolerated. Davina Bravo CPhT Cardiology, Neurology & Infectious Disease [facility] documented in this encounterOhiohealth [facility] Hospital12-30-2024 NoteHNO ID: [id number] Author: ?, ?, ? Service: ? Author Type: ? Type: Progress Notes Filed: 03/07/2024 12:34 Note Text: [facility] Refill Assessment Medication(s): Humira Patient's current medication list and adherence status to current therapy were reviewed by Specialty Pharmacy clinical pharmacist to identify any new drug interactions or non-compliance to therapy. Therapy continues to be appropriate for disease, patient response, and medical condition. Verification of therapeutic benefit and effectiveness with current therapy was completed. Adverse events, barriers in adherence, and side effects were assessed and addressed if applicable. Will proceed with refill with no changes in therapy - patient progressing towards achieving therapeutic goals based on medication-specific laboratory parameters, disease state markers and outcomes. Office/provider notes have been reviewed prior to dispensing the medication. Radio Dispatcher Assessment Patient confirmed: Yes Med/dose confirmed: Yes Supplies needed: No supplies needed Missed doses: No Estimated days supply on hand: 1 Next cycle/dose due: 03/11/24 Copay amount: 0 Payment confirmed: Yes Delivery method: FedEx Signature required: No Delivery address: [address] [place] [address] Delivery date: 03/15/24 Questions or concerns for the pharmacist?: No Did you have any side effects believed to be related to this medication, that resulted in hospitalization?: No Current Outpatient Medications on File Prior to Visit Medication Sig allopurinol (ZYLOPRIM) 300 mg tablet Take 1 tablet by mouth once daily. colchicine 0.6 mg tablet Take 1 tablet by mouth two times a day. predniSONE (DELTASONE) 5 mg tablet Take 3 tablets by mouth once daily. Milnacipran (SAVELLA) 50 mg tab Take 1 tablet by mouth two times a day. adalimumab (HUMIRA,CF, PEN) 40 mg/0.4 mL pen kit Inject 40 mg subcutaneously one time a week. Omeprazole 40 mg capsule Take 40 mg by mouth twice daily. levothyroxine (SYNTHROID) 100 mcg tablet Take 100 mcg by mouth once daily. hydroxychloroquine (PLAQUENIL) 200 mg tablet Take by mouth twice daily. metoprolol tartrate, short acting, (LOPRESSOR) 25 mg tablet Take 50 mg by mouth once daily. triamterene-hydrochlorothiazide 37.5-25 mg per capsule Take 1 capsule by mouth once daily. potassium chloride (K-SUNG, KLOR-CON) 20 mEq packet Take 20 mEq by mouth three times daily. magnesium oxide 400 mg cap Take 400 mg by mouth twice daily. gabapentin (NEURONTIN) 300 mg capsule Take 300 mg by mouth once daily. HYDROcodone-acetaminophen (NORCO) 5-325 mg per tablet Take 1 tablet by mouth twice daily. buprenorphine 15 mcg/hour ptwk Apply as directed. No current facility-administered medications on file prior to visit. [facility] SPECIALTY CLINICAL ASSESSMENT - INFLAMMATORY CONDITIONS V6: Assessment to use: Refill Date of influenza vaccination reminder: 11/30/2023 Date of most recent vaccination assessment: 11/30/2023 Treatment Plan Information: Actemra Actpen 162mg/0.9mL Inject 1 pen (162mg) subcutaneously every other week. (M06.00) Seronegative rheumatoid arthritis Past treatment: Humira Est. Tx Plan Start Date: 10/09/2023 Estimated Start Date Info: No information available Est. Estimated Treatment Duration: Until loss of efficacy and/or no longer tolerated. Davina Bravo CPhT Cardiology, Neurology AND Infectious Disease [facility] Telephone encounter Note* Telephone Encounter - Jose Maria Pisano - 02/25/2024 2:18 PM EST Pt request refills for allopurinol 300 mg; colchicine 0.6mg; prednisone 5mg to be routed to [facility] and savella 12.5mg to be routed to [facility] you [facility] Miscellaneous Notes* Telephone Encounter - Jose Maria Pisano - 02/25/2024 2:18 PM EST Pt request refills for allopurinol 300 mg; colchicine 0.6mg; prednisone 5mg to be routed to [facility] and savella 12.5mg to be routed to [facility] Thank you documented in this encounterOhiohealth [facility] Hospital12-03-2024 History of Present illness Narrative* Maximo Clark - 02/09/2024 11:26 AM EST [facility] Refill Assessment Medication(s): Humira CF Patient's current medication list and adherence status to current therapy were reviewed by Specialty Pharmacy clinical pharmacist to identify any new drug interactions or non-compliance to therapy. Therapy continues to be appropriate for disease, patient response, and medical condition. Verification of therapeutic benefit and effectiveness with current therapy was completed. Adverse events, barriers in adherence, and side effects were assessed and addressed if applicable. Will proceed with refill with no changes in therapy - patient progressing towards achieving therapeutic goals based on medication- specific laboratory parameters, disease state markers and outcomes. Office/provider notes have been reviewed prior to dispensing the medication. Radio Dispatcher Assessment Patient confirmed: Yes Med/dose confirmed: Yes Supplies needed: No supplies needed Missed doses: No Estimated days supply on hand: 1 Next cycle/dose due: 02/12/24 Copay amount: 0 Payment confirmed: Yes Delivery method: FedEx Signature required: No Delivery address: [address] [place] [id number] Delivery date: 02/17/24 Questions or concerns for the pharmacist?: No Did you have any side effects believed to be related to this medication, that resulted in hospitalization?: No Current Outpatient Medications on File Prior to Visit Medication Sig Milnacipran (SAVELLA) 12.5 mg (5)-25 mg(8)-50 mg(42) DsPk 12.5 mg once daily on day 1, then 12.5 mgtwice daily on days 2 to 3, 25 mg twice daily on days 4 to 7, then to usual dosage of 50 mg twice daily thereafter. adalimumab (HUMIRA,CF, PEN) 40 mg/0.4 mL pen kit Inject 40 mg subcutaneously one time a week. allopurinol (ZYLOPRIM) 300 mg tablet Take 1 tablet by mouth once daily. colchicine 0.6 mg tablet take 1 tablet by mouth twice a day Omeprazole 40 mg capsule Take 40 mg by mouth twice daily. levothyroxine (SYNTHROID) 100 mcg tablet Take 100 mcg by mouth once daily. hydroxychloroquine (PLAQUENIL) 200 mg tablet Take by mouth twice daily. metoprolol tartrate, short acting, (LOPRESSOR) 25 mg tablet Take 50 mg by mouth once daily. triamterene-hydrochlorothiazide 37.5-25 mg per capsule Take 1 capsule by mouth once daily. potassium chloride (K-SUNG, KLOR-CON) 20 mEq packet Take 20 mEq by mouth three times daily. magnesium oxide 400 mg cap Take 400 mg by mouth twice daily. gabapentin (NEURONTIN) 300 mg capsule Take 300 mg by mouth once daily. HYDROcodone-acetaminophen (NORCO) 5-325 mg per tablet Take 1 tablet by mouth twice daily. buprenorphine 15 mcg/hour ptwk Apply as directed. No current facility-administered medications on file prior to visit. [facility] CLINICAL ASSESSMENT - INFLAMMATORY CONDITIONS V6: Assessment to use: Refill Date of influenza vaccination reminder: 11/30/2023 Date of most recent vaccination assessment: 11/30/2023 Treatment Plan Information: Actemra Actpen 162mg/0.9mL Inject 1 pen (162mg) subcutaneously every other week. (M06.00) Seronegative rheumatoid arthritis Past treatment: Humira Est. Tx Plan Start Date: 10/09/2023 Estimated Start Date Info: No information available Est. Estimated Treatment Duration: Until loss of efficacy and/or no longer tolerated. Maximo Clark CPhT [facility] P: [phone] F: [phone] documented in this encounterOhio[facility]12-03-2024 NoteHNO ID: [id number] Author: ?, ?, ? Service: ? Author Type: ? Type: Progress Notes Filed: 02/09/2024 11:37 Note Text: [facility] Refill Assessment Medication(s): Humira CF Patient's current medication list and adherence status to current therapy were reviewed by Specialty Pharmacy clinical pharmacist to identify any new drug interactions or non-compliance to therapy. Therapy continues to be appropriate for disease, patient response, and medical condition. Verification of therapeutic benefit and effectiveness with current therapy was completed. Adverse events, barriers in adherence, and side effects were assessed and addressed if applicable. Will proceed with refill with no changes in therapy - patient progressing towards achieving therapeutic goals based on medication-specific laboratory parameters, disease state markers and outcomes. Office/provider notes have been reviewed prior to dispensing the medication. Radio Dispatcher Assessment Patient confirmed: Yes Med/dose confirmed: Yes Supplies needed: No supplies needed Missed doses: No Estimated days supply on hand: 1 Next cycle/dose due: 02/12/24 Copay amount: 0 Payment confirmed: Yes Delivery method: FedEx Signature required: No Delivery address: [address] [place], [place] [id number] Delivery date: 02/17/24 Questions or concerns for the pharmacist?: No Did you have any side effects believed to be related to this medication, that resulted in hospitalization?: No Current Outpatient Medications on File Prior to Visit Medication Sig Milnacipran (SAVELLA) 12.5 mg (5)-25 mg(8)-50 mg(42) DsPk 12.5 mg once daily on day 1, then 12.5 mg twice daily on days 2 to 3, 25 mg twice daily on days 4 to 7, then to usual dosage of 50 mg twice daily thereafter. adalimumab (HUMIRA,CF, PEN) 40 mg/0.4 mL pen kit Inject 40 mg subcutaneously one time a week. allopurinol (ZYLOPRIM) 300 mg tablet Take 1 tablet by mouth once daily. colchicine 0.6 mg tablet take 1 tablet by mouth twice a day Omeprazole 40 mg capsule Take 40 mg by mouth twice daily. levothyroxine (SYNTHROID) 100 mcg tablet Take 100 mcg by mouth once daily. hydroxychloroquine (PLAQUENIL) 200 mg tablet Take by mouth twice daily. metoprolol tartrate, short acting, (LOPRESSOR) 25 mg tablet Take 50 mg by mouth once daily. triamterene-hydrochlorothiazide 37.5-25 mg per capsule Take 1 capsule by mouth once daily. potassium chloride (K-SUNG, KLOR-CON) 20 mEq packet Take 20 mEq by mouth three times daily. magnesium oxide 400 mg cap Take 400 mg by mouth twice daily. gabapentin (NEURONTIN) 300 mg capsule Take 300 mg by mouth once daily. HYDROcodone-acetaminophen (NORCO) 5-325 mg per tablet Take 1 tablet by mouth twice daily. buprenorphine 15 mcg/hour ptwk Apply as directed. No current facility-administered medications on file prior to visit. [facility] SPECIALTY CLINICAL ASSESSMENT - INFLAMMATORY CONDITIONS V6: Assessment to use: Refill Date of influenza vaccination reminder: 11/30/2023 Date of most recent vaccination assessment: 11/30/2023 Treatment Plan Information: Actemra Actpen 162mg/0.9mL Inject 1 pen (162mg) subcutaneously every other week. (M06.00) Seronegative rheumatoid arthritis Past treatment: Humira Est. Tx Plan Start Date: 10/09/2023 Estimated Start Date Info: No information available Est. Estimated Treatment Duration: Until loss of efficacy and/or no longer tolerated. Maximo Clark CPhT [facility] P: [phone] F: [phone]11-08-2024 Telephone encounter Note* Telephone Encounter - Anali Gates MA - 01/15/2024 2:03 PM EST Patient called stated she was told by [facility] that she will no longer be able to receive mail order for her medication Savella and that it needs to be filled at her local pharmacy [facility]. [facility]-08-[facility] Miscellaneous Notes* Telephone Encounter - Anali Gates MA - 01/15/2024 2:03 PM EST Patient called stated she was told by [facility] that she will no longer be able to receive mail order for her medication Savella and that it needs to be filled at her local pharmacy [facility]. documented in this encounterOhio[facility]11-08-2024 Telephone encounter Note * Telephone Encounter - Anali Gates MA - 01/15/2024 1:57 PM EST Patient has been identified by name and date of : Yes . Patient calling for :general concern. Patient called stated she was trying to decrease her Prednisone to 10mg but is still having complications body stiffness and soreness so she went back up to her normal dose 15mg. Patient states this happens every time she goes below 15mg Pharmacy has been updated: Yes . Return call needed: Patient is expecting a call back. Can be reached at phone number listed below.. Patient can be reached at : [phone] [facility]11-08-2024 Miscellaneous Notes* Telephone Encounter - Anali Gates MA - 01/15/2024 1:57 PM EST Patient has been identified by name and date of : Yes . Patient calling for :general concern. Patient called stated she was trying to decrease her Prednisone to 10mg but is still having complications body stiffness and soreness so she went back up to her normal dose 15mg. Patient states this happens every time she goes below 15mg Pharmacy has been updated: Yes . Return call needed: Patient is expecting a call back. Can be reached at phone number listed below.. Patient can be reached at : [phone] documented in this encounterOhiohealth [facility]11-06-2024 NoteHNO ID: [id number] Author: ?, ?, ? Service: ? Author Type: ? Type: Progress Notes Filed: 01/20/2024 10:22 Note Text: [facility] Ref[facility] Assessment Medication(s): Dieudonneira Patient's current medication list and adherence status to current therapy were reviewed by Specialty Pharmacy clinical pharmacist to identify any new drug interactions or non-compliance to therapy. Therapy continues to be appropriate for disease, patient response, and medical condition. Verification of therapeutic benefit and effectiveness with current therapy was completed. Adverse events, barriers in adherence, and side effects were assessed and addressed if applicable. Will proceed with refill with no changes in therapy - patient progressing towards achieving therapeutic goals based on medication-specific laboratory parameters, disease state markers and outcomes. Office/provider notes have been reviewed prior to dispensing the medication. Radio Dispatcher Assessment Patient confirmed: Yes Med/dose confirmed: Yes Supplies needed: No supplies needed Missed doses: No Estimated days supply on hand: 0 Next cycle/dose due: 01/22/24 Copay amount: 0 Payment confirmed: Yes Delivery method: FedEx Signature required: Waived on patient request Delivery address: [address] [place] [id number] Delivery date: 01/22/24 Questions or concerns for the pharmacist?: No Did you have any side effects believed to be related to this medication, that resulted in hospitalization?: No Current Outpatient Medications on File Prior to Visit Medication Sig predniSONE (DELTASONE) 5 mg tablet Take 4 tablets by mouth once daily for 7 days, THEN 3.5 tablets once daily for 7 days, THEN 3 tablets once daily for 7 days, THEN 2.5 tablets once daily for 7 days, THEN 2 tablets once daily for 7 days, THEN 1.5 tablets once daily for 7 days, THEN 1 tablet once daily for 7 days, THEN 0.5 tablets once daily for 7 days. allopurinol (ZYLOPRIM) 300 mg tablet Take 1 tablet by mouth once daily. colchicine 0.6 mg tablet take 1 tablet by mouth twice a day Omeprazole 40 mg capsule Take 40 mg by mouth twice daily. levothyroxine (SYNTHROID) 100 mcg tablet Take 100 mcg by mouth once daily. hydroxychloroquine (PLAQUENIL) 200 mg tablet Take by mouth twice daily. metoprolol tartrate, short acting, (LOPRESSOR) 25 mg tablet Take 50 mg by mouth once daily. triamterene-hydrochlorothiazide 37.5-25 mg per capsule Take 1 capsule by mouth once daily. potassium chloride (K-SUNG, KLOR-CON) 20 mEq packet Take 20 mEq by mouth three times daily. magnesium oxide 400 mg cap Take 400 mg by mouth twice daily. gabapentin (NEURONTIN) 300 mg capsule Take 300 mg by mouth once daily. HYDROcodone-acetaminophen (NORCO) 5-325 mg per tablet Take 1 tablet by mouth twice daily. buprenorphine 15 mcg/hour ptwk Apply as directed. No current facility-administered medications on file prior to visit. [facility] SPECIALTY CLINICAL ASSESSMENT - INFLAMMATORY CONDITIONS V6: Assessment to use: Refill Date of influenza vaccination reminder: 11/30/2023 Date of most recent vaccination assessment: 11/30/2023 Treatment Plan Information: Actemra Actpen 162mg/0.9mL Inject 1 pen (162mg) subcutaneously every other week. (M06.00) Seronegative rheumatoid arthritis Past treatment: Humira Est. Tx Plan Start Date: 10/09/2023 Estimated Start Date Info: No information available Est. Estimated Treatment Duration: Until loss of efficacy and/or no longer tolerated. Jacinta Stoddard Aurelia [facility] P: [phone] F:[phone] Hospital10-25-2024 Instructions* Patient Instructions* Chris Cody MD - 01/01/2024 11:03 AM EDT Lets increase the interval of humira to one injection per week - we will need to get this approved and I will send the appeal today Send me the bone density scan (fax to [id number]) Start savella: 12.5 mg once daily on day 1, then 12.5 mg twice daily on days 2 to 3, 25 mg twice daily on days 4 to 7, then to usual dosage of 50 mg twice daily thereafter. Continue the prednisone taper as previously prescribed Call [phone] to schedule a Hepatology (liver specialist) appointment Follow-up in 2-3 months documented in this encounterOhio[facility]10-[facility]-2024 NoteHNO ID: [id number] Author: CHRIS CODY MD Service: ? Author Type: Physician Type: Progress Notes Filed: 01/07/2024 15:26 Note Text: Rheumatology Clinic Date of Service: 01/01/2024 Patient: Savannah Aguirre Medical Record: [id number] Primary Care Physician: Shahab Adams DO Last Rheumatology visit: 01/01/2024 (with Chris Cody) History of Present Illness Savannah Aguirre is a 63 year old White female who presents on 01/01/2024 for in person visit for evaluation of Joint Pain and Rheumatoid Arthritis. She is currently taking adalimumab, prednisone. Savannah is both RF - 9 (11/21/2022) and CCP - 13.5 (11/21/2022) negative. Her most recent CHASIDY was negative (01/16/2023). HISTORY OF PRESENT ILLNESS Patient scheduled to see me today for arthritis. 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 8-10 years dx'ed with RA but blood test and pain- hips, shoulders, feet. Patient has CRI, she used Methotrexate for one week and stopped. Treatment has included low dose predisone forever. Plaquenil Tried Enbrel about 2 years ago- states not sure if this helped. Stopped the Enbrel as prescription ran out. Then moved to [facility]. - thinks again on for a few years , she is not quite sure when last injection was, maybe 9-12 months ago. Not sure if the Orencia was helping Current medications: Plaquenil 200 mg BID- [facility] Past Medical History: - Chronic kidney disease stage III (2/2 chronic NSAID use) - Pain management Past Surgical History: - Tonsillectomy - Hysterectomy - Thyroid partial - Carpal tunnel release b/l - Spinal cord stimulator placement and removal Family History: - mother had some sort of pain issues (fibromyalgia) - grandmother - maybe osteoarthritis Social History: - Never smoker - Rare alcohol use - No other drugs Seen pain management- she is on norco 2-4 pill per day, gabapentin 3 times per day. + chronic back pain, had past spinal cord stimulator that had to be removed body rejected it' No prior surgery on her joints. Joints are not good. Describes dull tenderness- wrists, back, ankles, feet. She is getting swelling of her joints. She has some nodules of wrist and hand. Likes to sew, crafting, not on regular exercise regime, ADL's Has also been diagnosed Fibromyalgia, maybe on antidepressant but made me more depressed. Sleep is poor. Takes naps during the day. 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 INTERVAL HISTORY At last visit, had swelling of the hands/wrists, feet/ankles c/w RA. Given this, we initiated actemra; however, she developed a hypersensitivity reaction that required discontinuation of the medication. Given this, we initiated humira, which she had previously tolerated and had done well with her joint swelling. She is currently on humira every other week and prednisone 15 mg daily. Her pain is still present, but there is no longer significant swelling in the joints. She notes a history of fibromyalgia and a prior response to savella. Patient-Entered Data PROMIS Assessments 06/25/2023 09/29/2023 12/30/2023 PROMIS Global Health - (T-Scores - the mean of general population = 50. Five points is a clinically meaningful difference.) Physical T-Score 32.4 29.6 39.8 Mental T-Score 33.8 38.8 48.3 06/25/2023 09/29/2023 12/30/2023 PROMIS CAT Pain Interference PROMIS Pain Interference T-Score (range: 10 - 90) 67 (moderate) 72 (severe) 67 (moderate) PROMIS Pain Interference Percentile 4 1 4 PROMIS Adult Short Form-Global Health Score (Mental) 33.8 (Fair) 38.8 (Fair) 48.3 (Very Good) 06/25/2023 09/29/2023 12/30/2023 PROMIS CAT Fatigue PROMIS Fatigue T-Score 69 (moderate) 69 (moderate) 64 (moderate) PROMIS Fatigue Percentile 3 3 8 06/25/2023 09/29/2023 12/30/2023 PROMIS PHYSICAL FUNCTION T-SCORE PROMIS Physical Function T-Score 31 (moderate dysfunction) 32 (moderate dysfunction) 31 (moderate dysfunction) Physical Function Percentile 3 4 3 RAPID 3 Melara Activities of Daily Living 12/30/2023 8:34 PM 09/29/2023 10:14 PM 06/25/2023 4:45 PM First answer obtained - 11/18/2022 1:01 AM Dress self? With SOME difficulty With MUCH difficulty With SOME difficulty With SOME difficulty Get in and out of bed? With SOME difficulty With MUCH difficulty With SOME difficulty With SOME difficulty Walk outdoors? With SOME difficulty With MUCH difficulty With SOME difficulty With SOME difficulty Wash and dry body? With SOME difficulty With MUCH difficulty With MUCH difficulty With SOME difficulty Get in and out of car? With SOME difficulty With MUCH difficulty With SOME difficulty With SOME difficulty RAPID 3 Disease Activity Weighed Score Levels: 0 - 1: Near Remission 1.3 - 2.0: Low Severity 2.3 (more content not included)...[facility]10-25-2024 History of Present illness Narrative* Chris Cody MD - 01/01/2024 10:45 AM EDT Images from the original note were not included. Rheumatology Clinic Date of Service: 01/01/2024 Patient: Savannah Aguirre Medical Record: [id number] Primary Care Physician: Shahab Adams DO Last Rheumatology visit: 01/01/2024 (with Chris Cody) History of Present Illness Savannah Aguirre is a 63 year old White female who presents on 01/01/2024 for in person visit for evaluation of Joint Pain and Rheumatoid Arthritis. She is currently taking adalimumab, prednisone. Savannah is both RF - 9 (11/21/2022) and CCP - 13.5 (11/21/2022) negative. Her most recent CHASIDY was negative (01/16/2023). HISTORY OF PRESENT ILLNESS Patient scheduled to see me today for arthritis. 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 8-10 years dx'ed with RA but blood test and pain- hips, shoulders, feet. Patient has CRI, she used Methotrexate for one week and stopped. Treatment has included low dose predisone forever. Plaquenil Tried Enbrel about 2 years ago- states not sure if this helped. Stopped the Enbrel as prescriptionran out. Then moved to [facility]. - thinks again on for a few years , she is not quite sure when last injection was, maybe 9-12 months ago. Not sure if the Orencia was helping Current medications: Plaquenil 200 mg BID- [facility]. Past Medical History: - Chronic kidney disease stage III (2/2 chronic NSAID use) - Pain management Past Surgical History: - Tonsillectomy - Hysterectomy - Thyroid partial - Carpal tunnel release b/l - Spinal cord stimulator placement and removal Family History: - mother had some sort of pain issues (fibromyalgia) - grandmother - maybe osteoarthritis Social History: - Never smoker - Rare alcohol use - No other drugs Seen pain management- she is on norco 2-4 pill per day, gabapentin 3 times per day. + chronic back pain, had past spinal cord stimulator that had to be removed body rejected it' No prior surgery on her joints. Joints are not good. Describes dull tenderness- wrists, back, ankles, feet. She is getting swelling of her joints. She has some nodules of wrist and hand. Likes to sew, crafting, not on regular exercise regime, ADL's Has also been diagnosed Fibromyalgia, maybe on antidepressant but made me more depressed. Sleep is poor. Takes naps during the day. 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 INTERVAL HISTORY At last visit, had swelling of the hands/wrists, feet/ankles c/w RA. Given this, we initiated actemra; however, she developed a hypersensitivity reaction that required discontinuation of the medication. Given this, we initiated humira, which she had previously tolerated and had done well with her joint swelling. She is currently on humira every other week and prednisone 15 mg daily. Her pain is still present, but there is no longer significant swelling in the joints. She notes a history of fibromyalgia and a prior response to savella. Patient-Entered Data PROMIS Assessments 06/25/2023 09/29/2023 12/30/2023 PROMIS Global Health - (T-Scores - the mean of general population = 50. Five points is a clinicallymeaningful difference.) Physical T-Score 32.4 29.6 39.8 Mental T-Score 33.8 38.8 48.3 06/25/2023 09/29/2023 12/30/2023 PROMIS CAT Pain Interference PROMIS Pain Interference T-Score (range: 10 - 90) 67 (moderate) 72 (severe) 67 (moderate) PROMIS Pain Interference Percentile 4 1 4 PROMIS Adult Short Form-Global Health Score (Mental) 33.8 (Fair) 38.8 (Fair) 48.3 (Very Good) 06/25/2023 09/29/2023 12/30/2023 PROMIS CAT Fatigue PROMIS Fatigue T-Score 69 (moderate) 69 (moderate) 64 (moderate) PROMIS Fatigue Percentile 3 3 8 06/25/2023 09/29/2023 12/30/2023 PROMIS PHYSICAL FUNCTION T-SCORE PROMIS Physical Function T-Score 31 (moderate dysfunction) 32 (moderate dysfunction) 31 (moderate dysfunction) Physical Function Percentile 3 4 3 RAPID 3 Melara Activities of Daily Living 12/30/2023 8:34 PM 09/29/2023 10:14 PM 06/25/2023 4:45 PM First answer obtained - 11/18/2022 1:01 AM Dress self? With SOME difficulty With MUCH difficulty With SOME difficulty With SOME difficulty Get in and out of bed? With SOME difficulty With MUCH difficulty With SOME difficulty With SOME difficulty Walk outdoors? With SOME difficulty With MUCH difficulty With SOME difficulty With SOME difficulty Wash and dry body? With SOME difficulty With MUCH difficulty With MUCH difficulty With SOME difficulty Get in and out of car? With SOME difficulty With MUCH difficulty With SOME difficulty With SOME difficulty RAPID 3 Disease Activity Weighed Score Levels: 0 - 1: Near Remission 1.3 - 2.0: Low Severity 2.3 - 4.0: Moderate Severity 4.3 - 10.0: High Severity 06/25/2023 09/29/2023 12/30/2023 RAPID-3 Weighed Score RAPID 3 Weighed Score 6.06 (High severity ) Incomplete 5.11 (High severity ) Patient Health Questionnaire (PHQ-9) No data to display (0-4) minimal depression, (5-9) mild depression, (10-14) moderate depression, (15-19) moderately severe depression, (20-27) severe depression Review of Systems Review of Systems CONSTITUTION: Negative for: Fever and Recent weight change HEENT: Positive for: Trouble swallowing and Dry mouth Negative for: Nosebleeds and Mouth sores RESPIRATORY: Negative for: Cough, Shortness of breath and Pain with breathing GASTROINTESTINAL: Negative for: Melena, Diarrhea, Heartburn and Abdominal pain MUSCULOSKELETAL: Positive for: Arthralgias, Myalgias, Muscle weakness, Joint swelling and Morning Joint Stiffness NEUROLOGICAL: Positive for: Headaches, Numbness and Memory loss SKIN: Negative for: Rash, Skin changes, Hair loss and Nail changes EYES: Positive for: Eye dryness Negative for: Eye pain, Eye redness and visual disturbance CARDIOVASCULAR: Positive for: Leg swelling Negative for: Chest pain GENITOURINARY: Negative for: Dysuria and Hematuria HEMATOLOGIC/LYMPHATIC: Negative for: Swollen glands All other reviewed and negative other than HPI. Current Medications Current Outpatient Medications on File Prior to Visit Medication Sig predniSONE (DELTASONE) 5 mg tablet Take 4 tablets by mouth once daily for 7 days, THEN 3.5 tablets once daily for 7 days, THEN 3 tablets once daily for 7 days, THEN 2.5 tablets once daily for 7 days,THEN 2 tablets once daily for 7 days, THEN 1.5 tablets once daily for 7 days, THEN 1 tablet once daily for 7 days, THEN 0.5 tablets once daily for 7 days. allopurinol (ZYLOPRIM) 300 mg tablet Take 1 tablet by mouth once daily. colchicine 0.6 mg tablet take 1 tablet by mouth twice a day adalimumab (HUMIRA,CF, PEN) 40 mg/0.4 mL pen kit Inject 1 pen (40 mg) subcutaneously every other week. Omeprazole 40 mg capsule Take 40 mg by mouth twice daily. levothyroxine (SYNTHROID) 100 mcg tablet Take 100 mcg by mouth once daily. hydroxychloroquine (PLAQUENIL) 200 mg tablet Take by mouth twice daily. metoprolol tartrate, short acting, (LOPRESSOR) 25 mg tablet Take 50 mg by mouth once daily. triamterene-hydrochlorothiazide 37.5-25 mg per capsule Take 1 capsule by mouth once daily. potassium chloride (K-SUNG, KLOR-CON) 20 mEq packet Take 20 mEq by mouth three times daily. magnesium oxide 400 mg cap Take 400 mg by mouth twice daily. gabapentin (NEURONTIN) 300 mg capsule Take 300 mg by mouth once daily. HYDROcodone-acetaminophen (NORCO) 5-325 mg per tablet Take 1 tablet by mouth twice daily. buprenorphine 15 mcg/hour ptwk Apply as directed. No current facility-administered medications on file prior to visit. Last Ophthalmology Check for Plaquenil (Hydroxychloroquine) Last OCT Macula Exam No resulted procedures found. Last Visual Field Exam No resulted procedures found. Labs See HPI Imaging Last XR Hand/Finger - Impression Only XR HAND GENERAL 3V PA/LAT/OBL BILATERAL Exam End: 11/21/2022 3:07 PM (Final result) Impression: IMPRESSION: No radiographic findings of inflammatory arthropathy. Couture Alterations Dressmaker: RANDY Transcribe Date/Time: Nov 21 2022 3:31P... Last XR Foot / Toe - Impression Only XR FOOT GENERAL 3V AP/LAT/OBL BILATERAL Exam End: 11/21/2022 3:07 PM (Final result) Impression: IMPRESSION: Degenerative changes. No radiographic findings of inflammatory arthropathy. Couture Alterations Dressmaker: RANDY ... Physical Exam BP 138/61 Pulse 51 Temp (Src) 96.8 (Temporal) Wt 191 lb 12.8 oz (87.0kg) Exam: GENERAL: Well appearing, laying in bed, in NAD. HEENT: NCAT, PERRLA, EOMI, no scleral icterus, oropharynx clear and without lesions/ulcers. CV: Normal rate, regular rhythm. No appreciable murmur/rub/gallop. PULM: Normal WOB and RR on RA. Lung salmeron CTA bilaterally without appreciable wheezes or crackles. GI: NABS, soft, nondistended, nontender. EXT: 2+ radial and DP/PT pulses. No edema. SKIN: Warm, dry, no significant rashes, no significant bruising. NEURO: A&Ox3. Mental status and speech normal. MSK: Neck: Flexion, extension, and lateral rotation WNL. Spine: Intact ROM. No TTP. Shoulders: Intact ROM without reported pain. No appreciable swelling or tenderness with palpation. Elbows: No flexion contractures. No appreciable swelling, deformities, or tenderness with palpation. Wrists: No limitation of flexion or extension. No appreciable swelling or tenderness with palpation. Hands: tenderness without swelling/synovitis of the right hand. Mild dorsal left hand swelling. Improved from prior Hips: Intact ROM. No tenderness with palpation. Knees: No gross deformity. No appreciable effusion. Ankles: No limitation of plantarflexion or dorsiflexion. ? Slight effusion + tenderness of the leftankle. R ankle without swelling Feet: + mild swelling left dorsal foot Joint Exam Data (across time) 11/21/2022 Joint Exam Total Tender 12 Total Swollen 10 Impression and Plan Diagnoses: (M06.00) Seronegative rheumatoid arthritis (HCC) (primary encounter diagnosis) (M1A.09X0) Chronic gout of multiple sites, unspecified cause (Z79.899) High risk medication use (M79.7) Fibromyalgia (M15.9) Generalized osteoarthritis (R74.8) Elevated liver enzymes mod- severe active RA Savannah Aguirre is a 63 year old female who presents for follow-up of inflammatory arthritis. This is a patient with a 10 year history of reported seronegative rheumatoid arthritis. Her description is largely non-inflammatory, though she does have clear swelling and episodes of exquisite painwith minimal provocation. She also has episodes of more diffuse body pain and myalgias. She has previously used the following medications: - Methotrexate - Hydroxychloroquine (currently in use) - Abatacept - Etanercept - Adalimumab - Prednisone 5 mg daily She has not experienced significant benefit with any of these medications. Humira x 4 months has not improved her symptoms. At previous there was worsening inflammatory arthritis consistent with seronegative RA. We started actemra, but she developed a hypersensitivity reaction so this was stopped. She was restarted on adalimumab every other week with improvement in her inflammatory arthritis, though there is still mild o ngoing swelling of the left wrist and left ankle/foot. Given this, we will continue adalimumab but increase to every week dosing. Plan: - Continue allopurinol 300 mg daily - Continue colchicine 0.6 mg daily - Continue hydroxychloroquine 200 mg BID - needs eye exam documentation - Increase adalimumab to 40 mg weekly - she has had good but incomplete response to 40 mg every other week - For elevated LFTs, refer to hepatology - For fibromyalgia start milnacipran - Follow-up in 2-3 months Orders this visit: Office Visit on 01/01/24 CONSULT TO HEPATOLOGY Milnacipran (SAVELLA) 12.5 mg (5)-25 mg(8)-50 mg(42) DsPk No follow-ups on file. CC: PCP: Shahab Adams DO [address] [place] [address] Phone #: [phone] I spent a total of 35 minutes on the date of the service which included preparing to see the patient, [id number] patient care, completing clinical documentation, obtaining and/or reviewing separately obtained history, performing a medically appropriate examination, counseling and educating the pat ient/family/caregiver, ordering medications, tests, or procedures, and independently interpreting results (not separately reported). Chris Cody MD Rheumatology Date: January 01, 2024 Time: 10:46 AM RAPID3 from prior visit (12/30/2023) 5.11 - improved compared to RAPID3 from 09/29/2023. documented in this encounter[facility]-14-[facility]24 Telephone encounter Note * Telephone Encounter - Gladys Marin - 12/21/2023 3:34 PM EDT Called pt and transferred her to scheduling to make an appt with you. [facility] Miscellaneous Notes* Telephone Encounter - Gladys Marin - 12/21/2023 3:34 PM EDT Called pt and transferred her to scheduling to make an appt with you. * Telephone Encounter - Gladys Marin - 12/21/2023 3:33 PM EDT No monroy to schedule PK * Telephone Encounter - Gladys Marin - 12/18/2023 10:31 AM EDT Savannah Aguirre [id number] (home) Marina from [facility] calling in to see if you had gone over this pts records yet? Thereis a referral for the pt to be scheduled with you. I noticed on the documents in my chart there arecheck campbell on it. I'm not sure if that means you already looked at them? documented in this encounterOhio[facility]10-14-2024 Telephone encounter Note * Telephone Encounter - Gladys Marin - 12/21/2023 3:33 PM EDT No monroy to schedule PK [facility]10-11-[facility] Telephone encounter Note* Telephone Encounter - Gladys Marin - 12/18/2023 10:31 AM EDT Savannah Aguirre [id number] (home) Marina from [facility] calling in to see if you had gone over this pts records yet? Thereis a referral for the pt to be scheduled with you. I noticed on the documents in my chart there arecheck campbell on it. I'm not sure if that means you already looked at them? [facility]-30-[facility] Telephone encounter Note* Telephone Encounter - Chris Cody MD - 12/07/2023 4:47 PM EDT Called patient to discuss symptoms. She has been off prednisone and allopurinol and has been havingworsening joint pain. Unclear if this is gouty arthritis vs RA. Will resend pred taper and allopurinol 300 mg daily. Follow-up already scheduled for 12/31. Chris Cody MD Department of Immunologic and Rheumatic Diseases [facility]09-30-2024 Miscellaneous Notes* Telephone Encounter - Chris Cody MD - 12/07/2023 4:47 PM EDT Called patient to discuss symptoms. She has been off prednisone and allopurinol and has been havingworsening joint pain. Unclear if this is gouty arthritis vs RA. Will resend pred taper and allopurinol 300 mg daily. Follow-up already scheduled for 12/31. Chris Cody MD Department of Immunologic and Rheumatic Diseases * Telephone Encounter - Eugenia Medellin - 12/04/2023 2:18 PM EDT Per pt phone call, she is inquiring about her prednisone dosage. Pt states she has been tapering slowly on prednisone, on the she went down to 10mg per day, then on the she went down to 5mgper day. Pt says that ever since she went down to 10mg, she has been having ongoing aches and painsin body. Pt states pain is in wrists, hands, shoulders, feet, and ankles. Pt denies swelling. Pt says she has a long distance she's traveling for next week and doesn't want to be traveling while in pain, and is asking if either the prednisone dosage can be upped back to 20mg per day or if there's another recommendation by the provider. Pt states it's difficult to function under 20mg. Call back # [phone] (cell) documented in this encounterOhio[facility]09-27-2024 Telephone encounter Note * Telephone Encounter - Eugenia Medellin - 12/04/2023 2:18 PM EDT Per pt phone call, she is inquiring about her prednisone dosage. Pt states she has been tapering slowly on prednisone, on the she went down to 10mg per day, then on the she went down to 5mgper day. Pt says that ever since she went down to 10mg, she has been having ongoing aches and painsin body. Pt states pain is in wrists, hands, shoulders, feet, and ankles. Pt denies swelling. Pt says she has a long distance she's traveling for next week and doesn't want to be traveling while in pain, and is asking if either the prednisone dosage can be upped back to 20mg per day or if there's another recommendation by the provider. Pt states it's difficult to function under 20mg. Call back # [phone] (cell) [facility] History of Present illness Narrative* Jacinta Stoddard - 12/02/2023 11:53 AM EDT [facility] prescription(s) for Casa from Dr. Chris Cody's office. Benefits investigation was conducted, indicating that a prior authorization is required. PA was initiated and pending review. Plan Name: Express scripts Plan Agent/Melara: [id number] Timeline: Ela Manjarrez [facility] P: [phone] F:[phone] documented in this encounterOhiohealth Berger Hospital09-25-2024 NoteHNO ID: [id number] Author: ?, ?, ? Service: ? Author Type: ? Type: Progress Notes Filed: 01/12/2024 17:26 Note Text: Casa COLBY was approved with details listed below. Plan Name: [employer] Plan Agent/Melara: - PA reference number: [id number] Approval Dates: 03/09/2023 - 03/08/2024 Prescriptions will now be processed through [facility] for determination of next steps. Jacinta Stoddard [facility] P: [phone] F:[phone]09-[facility]-2024 NoteHNO ID: [id number] Author: GRACY LEYVA RP Service: ? Author Type: Pharmacist Type: Progress Notes Filed: 12/17/2023 08:51 Note Text: Humira PA renewal was denied with details listed below. Plan Name: [employer] Medicare Phone/ / [phone] Denial reason: Lack of documentation showing patient's response to treatment Full denial letter has been scanned in [email or web address]. There is an option for written appeal. If you would like to appeal, please provide a signed letter to [facility] and we can forward off to [facility]. Grey SharpeD Clinical Pharmacist, [employer] ; Pool: P [facility] Pool #: [id number]09-25-2024 NoteHNO ID: [id number] Author: ?, ?, ? Service: ? Author Type: ? Type: Progress Notes Filed: 12/02/2023 12:00 Note Text: [facility] received prescription(s) for Humira from Dr. Chris Cody's office. Benefits investigation was conducted, indicating that a prior authorization is required. PA was initiated and pending review. Plan Name: Express scripts Plan Agent/Melara: [id number] Timeline: Standard Jacinta Stoddard Aurelia [facility] P: [phone] F:[phone]09-25-2024 NoteHNO ID: [id number] Author: GRACY LEYVA Formerly [facility] Service: ? Author Type: Pharmacist Type: Progress Notes Filed: 01/11/2024 14:51 Note Text: [facility] received fax denial letter from [facility] for medication(s) Humira; denial reason: Lack of documentation showing patient's response to treatment Expedited appeal submitted on behalf of Dr. Cody with a letter of medical necessity and pertinent clinical documentation via fax to # [phone] Note will be updated accordingly. Grey SharpeD Clinical Pharmacist, [employer] [facility] ; Pool: P [facility] #: [id number]24 History of Present illness Narrative* Jacinta Stoddard - 11/30/2023 10:47 AM EDT [facility] Refill Assessment Medication(s): Humira Patient's current medication list and adherence status to current therapy were reviewed by Specialty Pharmacy clinical pharmacist to identify any new drug interactions or non-compliance to therapy. Therapy continues to be appropriate for disease, patient response, and medical condition. Verification of therapeutic benefit and effectiveness with current therapy was completed. Adverse events, barriers in adherence, and side effects were assessed and addressed if applicable. Will proceed with refill with no changes in therapy - patient progressing towards achieving therapeutic goals based on medication- specific laboratory parameters, disease state markers and outcomes. Office/provider notes have been reviewed prior to dispensing the medication. Radio Dispatcher Assessment Patient confirmed: Yes Med/dose confirmed: Yes Supplies needed: No supplies needed Estimated days supply on hand: 0 Next cycle/dose due: 12/11/23 Copay amount: 0 Payment confirmed: Yes Delivery method: FedEx Signature required: Waived on patient request Delivery address: [address] [place] [id number] Delivery date: 12/02/23 Questions or concerns for the pharmacist?: No Did you have any side effects believed to be related to this medication, that resulted in hospitalization?: No Current Outpatient Medications on File Prior to Visit Medication Sig colchicine 0.6 mg tablet take 1 tablet by mouth twice a day predniSONE (DELTASONE) 5 mg tablet Take 6 tablets by mouth once daily for 5 days, THEN 5 tablets once daily for 5 days, THEN 4 tablets once daily for 5 days, THEN 3 tablets once daily for 7 days, THEN 2 tablets once daily for 7 days, THEN 1 tablet once daily for 7 days. adalimumab (HUMIRA,CF, PEN) 40 mg/0.4 mL pen kit Inject 1 pen (40 mg) subcutaneously every other week. allopurinol (ZYLOPRIM) 100 mg tablet TAKE 3 TABLETS ONCE DAILY Omeprazole 40 mg capsule Take 40 mg by mouth twice daily. levothyroxine (SYNTHROID) 100 mcg tablet Take 100 mcg by mouth once daily. hydroxychloroquine (PLAQUENIL) 200 mg tablet Take by mouth twice daily. metoprolol tartrate, short acting, (LOPRESSOR) 25 mg tablet Take 50 mg by mouth once daily. triamterene-hydrochlorothiazide 37.5-25 mg per capsule Take 1 capsule by mouth once daily. potassium chloride (K-SUNG, KLOR-CON) 20 mEq packet Take 20 mEq by mouth three times daily. magnesium oxide 400 mg cap Take 400 mg by mouth twice daily. gabapentin (NEURONTIN) 300 mg capsule Take 300 mg by mouth once daily. HYDROcodone-acetaminophen (NORCO) 5-325 mg per tablet Take 1 tablet by mouth twice daily. buprenorphine 15 mcg/hour ptwk Apply as directed. No current facility-administered medications on file prior to visit. [facility] CLINICAL ASSESSMENT - INFLAMMATORY CONDITIONS V6: Assessment to use: Refill Date of influenza vaccination reminder: 10/07/2023 Date of most recent vaccination assessment: 10/07/2023 Treatment Plan Information: Actemra Actpen 162mg/0.9mL Inject 1 pen (162mg) subcutaneously every other week. (M06.00) Seronegative rheumatoid arthritis Past treatment: Humira Est. Tx Plan Start Date: 10/09/2023 Estimated Start Date Info: No information available Est. Estimated Treatment Duration: Until loss of efficacy and/or no longer tolerated. Jacinta Stoddard Aurelia [facility] P: [phone] F:[phone] documented in this encounterOhiohealth Berger Hospital09-23-2024 NoteHNO ID: [id number] Author: ?, ?, ? Service: ? Author Type: ? Type: Progress Notes Filed: 11/30/2023 10:49 Note Text: [facility] Refill Assessment Medication(s): Humira Patient's current medication list and adherence status to current therapy were reviewed by Specialty Pharmacy clinical pharmacist to identify any new drug interactions or non-compliance to therapy. Therapy continues to be appropriate for disease, patient response, and medical condition. Verification of therapeutic benefit and effectiveness with current therapy was completed. Adverse events, barriers in adherence, and side effects were assessed and addressed if applicable. Will proceed with refill with no changes in therapy - patient progressing towards achieving therapeutic goals based on medication-specific laboratory parameters, disease state markers and outcomes. Office/provider notes have been reviewed prior to dispensing the medication. Radio Dispatcher Assessment Patient confirmed: Yes Med/dose confirmed: Yes Supplies needed: No supplies needed Estimated days supply on hand: 0 Next cycle/dose due: 12/11/23 Copay amount: 0 Payment confirmed: Yes Delivery method: FedEx Signature required: Waived on patient request Delivery address: [address] [place] [address],[place], [place],[address] Delivery date: 12/02/23 Questions or concerns for the pharmacist?: No Did you have any side effects believed to be related to this medication, that resulted in hospitalization?: No Current Outpatient Medications on File Prior to Visit Medication Sig colchicine 0.6 mg tablet take 1 tablet by mouth twice a day predniSONE (DELTASONE) 5 mg tablet Take 6 tablets by mouth once daily for 5 days, THEN 5 tablets once daily for 5 days, THEN 4 tablets once daily for 5 days, THEN 3 tablets once daily for 7 days, THEN 2 tablets once daily for 7 days, THEN 1 tablet once daily for 7 days. adalimumab (HUMIRA,CF, PEN) 40 mg/0.4 mL pen kit Inject 1 pen (40 mg) subcutaneously every other week. allopurinol (ZYLOPRIM) 100 mg tablet TAKE 3 TABLETS ONCE DAILY Omeprazole 40 mg capsule Take 40 mg by mouth twice daily. levothyroxine (SYNTHROID) 100 mcg tablet Take 100 mcg by mouth once daily. hydroxychloroquine (PLAQUENIL) 200 mg tablet Take by mouth twice daily. metoprolol tartrate, short acting, (LOPRESSOR) 25 mg tablet Take 50 mg by mouth once daily. triamterene-hydrochlorothiazide 37.5-25 mg per capsule Take 1 capsule by mouth once daily. potassium chloride (K-SUNG, KLOR-CON) 20 mEq packet Take 20 mEq by mouth three times daily. magnesium oxide 400 mg cap Take 400 mg by mouth twice daily. gabapentin (NEURONTIN) 300 mg capsule Take 300 mg by mouth once daily. HYDROcodone-acetaminophen (NORCO) 5-325 mg per tablet Take 1 tablet by mouth twice daily. buprenorphine 15 mcg/hour ptwk Apply as directed. No current facility-administered medications on file prior to visit. [facility] CLINICAL ASSESSMENT - INFLAMMATORY CONDITIONS V6: Assessment to use: Refill Date of influenza vaccination reminder: 10/07/2023 Date of most recent vaccination assessment: 10/07/2023 Treatment Plan Information: Actemra Actpen 162mg/0.9mL Inject 1 pen (162mg) subcutaneously every other week. (M06.00) Seronegative rheumatoid arthritis Past treatment: Humira Est. Tx Plan Start Date: 10/09/2023 Estimated Start Date Info: No information available Est. Estimated Treatment Duration: Until loss of efficacy and/or no longer tolerated. Ela Adan [facility] P: [phone] F:[phone] Hospital09-04-2024 History of Present illness Narrative* Gracy Leyva RPh - 11/11/2023 11:46 AM EDT Images from the original note were not included. [facility] Discontinuation Assessment: Disease group: Inflammatory Medication: ACTEMRA ACTPEN 162 MG/0.9 ML SUBCUTANEOUS PEN INJECTOR Discontinue reason: Changing therapy and Side effect intolerance Ivelisse Leyva PharmD Clinical Pharmacist, [employer] [facility] ; Pool: P [facility] Pool #: [id number] documented in this encounterOhiohealth Berger Hospital09-04-2024 NoteHNO ID: [id number] Author: GRACY LEYVA RPh Service: ? Author Type: Pharmacist Type: Progress Notes Filed: 11/11/2023 11:47 Note Text: [facility] Discontinuation Assessment: Disease group: Inflammatory Medication: ACTEMRA ACTPEN 162 MG/0.9 ML SUBCUTANEOUS PEN INJECTOR Discontinue reason: Changing therapy and Side effect intolerance Ivelisse Leyva PharmD Clinical Pharmacist, [employer] [facility] ; Pool: P [facility] Pool #: [id number] Hospital09-04-2024 History of Present illness Narrative* Jacinta Stoddard - 11/11/2023 10:45 AM EDT [facility] Specialty Refill Assessment Medication(s): Humira Restart - switching back to Humira after having adverse effects with Actemra Patient's current medication list and adherence status to current therapy were reviewed by Specialty Pharmacy clinical pharmacist to identify any new drug interactions or non-compliance to therapy. Therapy continues to be appropriate for disease, patient response, and medical condition. Verification of therapeutic benefit and effectiveness with current therapy was completed. Adverse events, barriers in adherence, and side effects were assessed and addressed if applicable. Will proceed with refill with no changes in therapy - patient progressing towards achieving therapeutic goals based on medication- specific laboratory parameters, disease state markers and outcomes. Office/provider notes have been reviewed prior to dispensing the medication. Ivelisse Leyva PharmD Clinical Pharmacist, [employer] [facility] ; Pool: P [facility] Pool #: [id number] Radio Dispatcher Assessment Patient confirmed: Yes Med/dose confirmed: Yes Supplies needed: No supplies needed Estimated days supply on hand: 0 Next cycle/dose due: 11/13/23 Copay amount: 0 Payment confirmed: Yes Delivery method: FedEx Signature required: Waived on patient request Delivery address: [address] [place] [address] Delivery date: 11/13/23 Questions or concerns for the pharmacist?: No Did you have any side effects believed to be related to this medication, that resulted in hospitalization?: No Current Outpatient Medications on File Prior to Visit Medication Sig colchicine 0.6 mg tablet take 1 tablet by mouth twice a day predniSONE (DELTASONE) 5 mg tablet Take 6 tablets by mouth once daily for 5 days, THEN 5 tablets once daily for 5 days, THEN 4 tablets once daily for 5 days, THEN 3 tablets once daily for 7 days, THEN 2 tablets once daily for 7 days, THEN 1 tablet once daily for 7 days. adalimumab (HUMIRA,CF, PEN) 40 mg/0.4 mL pen kit Inject 1 pen (40 mg) subcutaneously every other week. allopurinol (ZYLOPRIM) 100 mg tablet TAKE 3 TABLETS ONCE DAILY Omeprazole 40 mg capsule Take 40 mg by mouth twice daily. levothyroxine (SYNTHROID) 100 mcg tablet Take 100 mcg by mouth once daily. hydroxychloroquine (PLAQUENIL) 200 mg tablet Take by mouth twice daily. metoprolol tartrate, short acting, (LOPRESSOR) 25 mg tablet Take 50 mg by mouth once daily. triamterene-hydrochlorothiazide 37.5-25 mg per capsule Take 1 capsule by mouth once daily. potassium chloride (K-SUNG, KLOR-CON) 20 mEq packet Take 20 mEq by mouth three times daily. magnesium oxide 400 mg cap Take 400 mg by mouth twice daily. gabapentin (NEURONTIN) 300 mg capsule Take 300 mg by mouth once daily. HYDROcodone-acetaminophen (NORCO) 5-325 mg per tablet Take 1 tablet by mouth twice daily. buprenorphine 15 mcg/hour ptwk Apply as directed. No current facility-administered medications on file prior to visit. [facility] CLINICAL ASSESSMENT - INFLAMMATORY CONDITIONS V6: Ivent complete: No Assessment to use: Refill Assessment of injection issues: Yes Infection screening, including annual TB assessment when applicable to medication: Yes Current medication list (including drug interaction assessment): Yes Experience of adverse reactions to the medication: Yes Date of influenza vaccination reminder: 10/07/2023 Date of most recent vaccination assessment: 10/07/2023 Treatment Plan Information: Actemra Actpen 162mg/0.9mL Inject 1 pen (162mg) subcutaneously every other week. (M06.00) Seronegative rheumatoid arthritis Past treatment: Humira Est. Tx Plan Start Date: 10/09/2023 Estimated Start Date Info: No information available Est. Estimated Treatment Duration: Until loss of efficacy and/or no longer tolerated. Ela Adan [facility] P: [phone] F:[phone] documented in this encounterOhiohealth Berger Hospital09-04-2024 NoteHNO ID: [id number] Author: GRACY LEYVA RPh Service: ? Author Type: ? Type: Progress Notes Filed: 11/11/2023 11:51 Note Text: [facility] Refill Assessment Medication(s): Humira Restart - switching back to Humira after having adverse effects with Actemra Patient's current medication list and adherence status to current therapy were reviewed by Specialty Pharmacy clinical pharmacist to identify any new drug interactions or non-compliance to therapy. Therapy continues to be appropriate for disease, patient response, and medical condition. Verification of therapeutic benefit and effectiveness with current therapy was completed. Adverse events, barriers in adherence, and side effects were assessed and addressed if applicable. Will proceed with refill with no changes in therapy - patient progressing towards achieving therapeutic goals based on medication-specific laboratory parameters, disease state markers and outcomes. Office/provider notes have been reviewed prior to dispensing the medication. Ivelisse Leyva, GreyD Clinical Pharmacist, [employer] [facility] ; Pool: P [facility] Pool #: [id number] Radio Dispatcher Assessment Patient confirmed: Yes Med/dose confirmed: Yes Supplies needed: No supplies needed Estimated days supply on hand: 0 Next cycle/dose due: 11/13/23 Copay amount: 0 Payment confirmed: Yes Delivery method: FedEx Signature required: Waived on patient request Delivery address: [address] [place] [address] Delivery date: 11/13/23 Questions or concerns for the pharmacist?: No Did you have any side effects believed to be related to this medication, that resulted in hospitalization?: No Current Outpatient Medications on File Prior to Visit Medication Sig colchicine 0.6 mg tablet take 1 tablet by mouth twice a day predniSONE (DELTASONE) 5 mg tablet Take 6 tablets by mouth once daily for 5 days, THEN 5 tablets once daily for 5 days, THEN 4 tablets once daily for 5 days, THEN 3 tablets once daily for 7 days, THEN 2 tablets once daily for 7 days, THEN 1 tablet once daily for 7 days. adalimumab (HUMIRA,CF, PEN) 40 mg/0.4 mL pen kit Inject 1 pen (40 mg) subcutaneously every other week. allopurinol (ZYLOPRIM) 100 mg tablet TAKE 3 TABLETS ONCE DAILY Omeprazole 40 mg capsule Take 40 mg by mouth twice daily. levothyroxine (SYNTHROID) 100 mcg tablet Take 100 mcg by mouth once daily. hydroxychloroquine (PLAQUENIL) 200 mg tablet Take by mouth twice daily. metoprolol tartrate, short acting, (LOPRESSOR) 25 mg tablet Take 50 mg by mouth once daily. triamterene-hydrochlorothiazide 37.5-25 mg per capsule Take 1 capsule by mouth once daily. potassium chloride (K-SUNG, KLOR-CON) 20 mEq packet Take 20 mEq by mouth three times daily. magnesium oxide 400 mg cap Take 400 mg by mouth twice daily. gabapentin (NEURONTIN) 300 mg capsule Take 300 mg by mouth once daily. HYDROcodone-acetaminophen (NORCO) 5-325 mg per tablet Take 1 tablet by mouth twice daily. buprenorphine 15 mcg/hour ptwk Apply as directed. No current facility-administered medications on file prior to visit. [facility] CLINICAL ASSESSMENT - INFLAMMATORY CONDITIONS V6: Ivent complete: No Assessment to use: Refill Assessment of injection issues: Yes Infection screening, including annual TB assessment when applicable to medication: Yes Current medication list (including drug interaction assessment): Yes Experience of adverse reactions to the medication: Yes Date of influenza vaccination reminder: 10/07/2023 Date of most recent vaccination assessment: 10/07/2023 Treatment Plan Information: Actemra Actpen 162mg/0.9mL Inject 1 pen (162mg) subcutaneously every other week. (M06.00) Seronegative rheumatoid arthritis Past treatment: Humira Est. Tx Plan Start Date: 10/09/2023 Estimated Start Date Info: No information available Est. Estimated Treatment Duration: Until loss of efficacy and/or no longer tolerated. Jacinta Stoddard [facility] P: [phone] F:[phone] Hospital08-27-2024 Telephone encounter Note* Telephone Encounter - Noelle Mcfadden RN - 11/03/2023 12:01 PM EDT Images from the original note were not included. Most recent Rheumatology visit: 10/01/2023 (with Chris Cody) Last Bone Density on file: None on file Rheumatology Care Team: None on file Recent Office Visits - This Specialty 10/01/2023 Seronegative rheumatoid arthritis (HCC) Rheumatology Chris Cody MD 06/26/2023 Chronic gout of multiple sites, unspecified cause Rheumatology Chris Cody MD 04/03/2023 Chronic gout of multiple sites, unspecified cause Rheumatology Chris Cody MD Upcoming Rheumatology Appointments - Next 365 Days Visit Type Date Time Department [facility] 01/01/2024 10:40 AM [facility] MAIN A50 Last Ophthalmology Check for Plaquenil (Hydroxychloroquine) Last OCT Macula Exam No resulted procedures found. Last Visual Field Exam No resulted procedures found. CBC: Latest Ref Rng & Units 07/06/2023 09/28/2023 CBC WBC 3.70 - 11.00 k/uL 9.44 5.03 Hemoglobin 11.5 - 15.5 g/dL 12.3 12.3 Hematocrit 36.0 - 46.0 % 37.4 37.4 Platelet Count 150 - 400 k/uL 231 197 Abs Neut (ANC) 1.45 - 7.50 k/uL 6.07 2.82 Abs Lymph 1.00 - 4.00 k/uL 2.10 1.23 Vitamin D: None on file in the last 6 months LFT: None on file in the last 6 months Hepatic Function: Latest Ref Rng & Units 07/06/2023 09/28/2023 ALBUMIN Albumin 3.9 - 4.9 g/dL 4.1 4.2 Bilirubin, Total 0.2 - 1.3 mg/dL 0.4 0.6 Bilirubin, Conjug <0.2 mg/dL <0.2 0.2 Alkaline Phosphatase 34 - 123 U/L 105 108 AST 13 - 35 U/L 25 46 ALT 7 - 38 U/L 30 37 Protein, Total 6.3 - 8.0 g/dL 6.6 6.3 Creatinine: Latest Ref Rng & Units 07/06/2023 09/28/2023 Creatinine Creatinine 0.58 - 0.96 mg/dL 1.25 1.17 ESR/CRP: None on file in the last 6 months Uric Acid: Latest Ref Rng & Units 07/06/2023 09/28/2023 Uric Acid Uric Acid 2.5 - 6.6 mg/dL 2.9 2.8 Open Standing (Multiple Instance) Lab Orders Remain Interval Expires Ordered Last Rel. URIC ACID BLOOD [SQURIC] 11/18 Once per month 04/02/24 04/03/23 09/28/23 Auth. provider: Chris Cody MD Assoc. diagnoses: High risk medication use CREATININE BLD [SQCRET] 11/18 Once per month 04/02/24 04/03/23 09/28/23 Auth. provider: Chris Cody MD Assoc. diagnoses: High risk medication use CBC + DIFF [SQCBCDIF] 11/18 Once per month 04/02/24 04/03/23 09/28/23 Auth. provider: Chris Cody MD Assoc. diagnoses: High risk medication use HEPATIC FUNCTION PNL [SQHFP] 11/18 Once per month 04/02/24 04/03/23 09/28/23 Auth. provider: Chris Cody MD Assoc. diagnoses: High risk medication use Open Future (Single Instance) Lab Orders None [facility]08-27-2024 Miscellaneous Notes* Telephone Encounter - Noelle Mcfadden RN - 11/03/2023 12:01 PM EDT Images from the original note were not included. Most recent Rheumatology visit: 10/01/2023 (with Chris Cody) Last Bone Density on file: None on file Rheumatology Care Team: None on file Recent Office Visits - This Specialty 10/01/2023 Seronegative rheumatoid arthritis (HCC) Rheumatology Chris Cody MD 06/26/2023 Chronic gout of multiple sites, unspecified cause Rheumatology Chris Cody MD 04/03/2023 Chronic gout of multiple sites, unspecified cause Rheumatology Chris Cody MD Upcoming Rheumatology Appointments - Next 365 Days Visit Type Date Time Department [facility] 01/01/2024 10:40 AM [facility] A50 Last Ophthalmology Check for Plaquenil (Hydroxychloroquine) Last OCT Macula Exam No resulted procedures found. Last Visual Field Exam No resulted procedures found. CBC: Latest Ref Rng & Units 07/06/2023 09/28/2023 CBC WBC 3.70 - 11.00 k/uL 9.44 5.03 Hemoglobin 11.5 - 15.5 g/dL 12.3 12.3 Hematocrit 36.0 - 46.0 % 37.4 37.4 Platelet Count 150 - 400 k/uL 231 197 Abs Neut (ANC) 1.45 - 7.50 k/uL 6.07 2.82 Abs Lymph 1.00 - 4.00 k/uL 2.10 1.23 Vitamin D: None on file in the last 6 months LFT: None on file in the last 6 months Hepatic Function: Latest Ref Rng & Units 07/06/2023 09/28/2023 ALBUMIN Albumin 3.9 - 4.9 g/dL 4.1 4.2 Bilirubin, Total 0.2 - 1.3 mg/dL 0.4 0.6 Bilirubin, Conjug <0.2 mg/dL <0.2 0.2 Alkaline Phosphatase 34 - 123 U/L 105 108 AST 13 - 35 U/L 25 46 ALT 7 - 38 U/L 30 37 Protein, Total 6.3 - 8.0 g/dL 6.6 6.3 Creatinine: Latest Ref Rng & Units 07/06/2023 09/28/2023 Creatinine Creatinine 0.58 - 0.96 mg/dL 1.25 1.17 ESR/CRP: None on file in the last 6 months Uric Acid: Latest Ref Rng & Units 07/06/2023 09/28/2023 Uric Acid Uric Acid 2.5 - 6.6 mg/dL 2.9 2.8 Open Standing (Multiple Instance) Lab Orders Remain Interval Expires Ordered Last Rel. URIC ACID BLOOD [SQURIC] 11/18 Once per month 04/02/24 04/03/23 09/28/23 Auth. provider: Chris Cody MD Assoc. diagnoses: High risk medication use CREATININE BLD [SQCRET] 11/18 Once per month 04/02/24 04/03/23 09/28/23 Auth. provider: Chris Cody MD Assoc. diagnoses: High risk medication use CBC + DIFF [SQCBCDIF] 11/18 Once per month 04/02/24 04/03/23 09/28/23 Auth. provider: Chris Cody MD Assoc. diagnoses: High risk medication use HEPATIC FUNCTION PNL [SQHFP] 11/18 Once per month 04/02/24 04/03/23 09/28/23 Auth. provider: Chris Cody MD Assoc. diagnoses: High risk medication use Open Future (Single Instance) Lab Orders None documented in this encounterOhiohealth Berger Hospital08-19-2024 Telephone encounter Note * Telephone Encounter - Chris Cody MD - 10/26/2023 5:29 PM EDT Spoke to patient. She developed ulcers and blisters on arms, legs and mouth after taking a dose of actemra 2-3 days later. With benadryl this is resolving, but took several days. No dyspnea or chest pain. We discussed plan to stop actemra. Will place on allergy list. Prednisone taper for sores/ulcers and for joint pain. We retrial adalimumab. She had labs today and I will review when available. Chris Cody MD Department of Immunologic and Rheumatic Diseases [facility]08-19-2024 Miscellaneous Notes* Telephone Encounter - Chris Cody MD - 10/26/2023 5:29 PM EDT Spoke to patient. She developed ulcers and blisters on arms, legs and mouth after taking a dose of actemra 2-3 days later. With benadryl this is resolving, but took several days. No dyspnea or chest pain. We discussed plan to stop actemra. Will place on allergy list. Prednisone taper for sores/ulcers and for joint pain. We retrial adalimumab. She had labs today and I will review when available. Chris Cody MD Department of Immunologic and Rheumatic Diseases * Telephone Encounter - Jose Maria Pisano - 10/26/2023 2:26 PM EDT Pt identified by name and date of Pt took first shot of Actemra last week and pt experienced both arms and both legs were blistered; pt's tongue has ulcers as well as the roof of pt's mouth; pt is experiencing chapped lips Pt completed the prednisone and pt states that stiffness and soreness returned Pt could be reached at [phone] documented in this encounterOhiohealth Berger Hospital08-19-2024 Telephone encounter Note * Telephone Encounter - Jose Maria Pisano - 10/26/2023 2:26 PM EDT Pt identified by name and date of Pt took first shot of Actemra last week and pt experienced both arms and both legs were blistered; pt's tongue has ulcers as well as the roof of pt's mouth; pt is experiencing chapped lips Pt completed the prednisone and pt states that stiffness and soreness returned Pt could be reached at [phone] [facility]08-01-2024 Telephone encounter Note* Telephone Encounter - Noelle Mcfadden RN - 10/08/2023 10:37 AM EDT Images from the original note were not included. Most recent Rheumatology visit: 10/01/2023 (with Chris Cody) Rheumatology Care Team: None on file Recent Office Visits - This Specialty 10/01/2023 Seronegative rheumatoid arthritis (HCC) Rheumatology Chris Cody MD 06/26/2023 Chronic gout of multiple sites, unspecified cause Rheumatology Chris Cody MD 04/03/2023 Chronic gout of multiple sites, unspecified cause Rheumatology Chris Cody MD Upcoming Rheumatology Appointments - Next 365 Days Visit Type Date Time Department [facility] 01/01/2024 10:40 AM [facility] MAIN A50 Last Ophthalmology Check for Plaquenil (Hydroxychloroquine) Last OCT Macula Exam No resulted procedures found. Last Visual Field Exam No resulted procedures found. CBC: Latest Ref Rng & Units 07/06/2023 09/28/2023 CBC WBC 3.70 - 11.00 k/uL 9.44 5.03 Hemoglobin 11.5 - 15.5 g/dL 12.3 12.3 Hematocrit 36.0 - 46.0 % 37.4 37.4 Platelet Count 150 - 400 k/uL 231 197 Abs Neut (ANC) 1.45 - 7.50 k/uL 6.07 2.82 Abs Lymph 1.00 - 4.00 k/uL 2.10 1.23 Vitamin D: None on file in the last 6 months LFT: None on file in the last 6 months Hepatic Function: Latest Ref Rng & Units 07/06/2023 09/28/2023 ALBUMIN Albumin 3.9 - 4.9 g/dL 4.1 4.2 Bilirubin, Total 0.2 - 1.3 mg/dL 0.4 0.6 Bilirubin, Conjug <0.2 mg/dL <0.2 0.2 Alkaline Phosphatase 34 - 123 U/L 105 108 AST 13 - 35 U/L 25 46 ALT 7 - 38 U/L 30 37 Protein, Total 6.3 - 8.0 g/dL 6.6 6.3 Creatinine: Latest Ref Rng & Units 07/06/2023 09/28/2023 Creatinine Creatinine 0.58 - 0.96 mg/dL 1.25 1.17 ESR/CRP: None on file in the last 6 months Uric Acid: Latest Ref Rng & Units 07/06/2023 09/28/2023 Uric Acid Uric Acid 2.5 - 6.6 mg/dL 2.9 2.8 Open Standing (Multiple Instance) Lab Orders Remain Interval Expires Ordered Last Rel. URIC ACID BLOOD [SQURIC] 11/18 Once per month 04/02/24 04/03/23 09/28/23 Auth. provider: Chris Cody MD Assoc. diagnoses: High risk medication use CREATININE BLD [SQCRET] 11/18 Once per month 04/02/24 04/03/23 09/28/23 Auth. provider: Chris Cody MD Assoc. diagnoses: High risk medication use CBC + DIFF [SQCBCDIF] 11/18 Once per month 04/02/24 04/03/23 09/28/23 Auth. provider: Chris Cody MD Assoc. diagnoses: High risk medication use HEPATIC FUNCTION PNL [SQHFP] 11/18 Once per month 04/02/24 04/03/23 09/28/23 Auth. provider: Chris Cody MD Assoc. diagnoses: High risk medication use Open Future (Single Instance) Lab Orders None [facility]08-01-2024 Miscellaneous Notes* Telephone Encounter - Noelle Mcfadden RN - 10/08/2023 10:37 AM EDT Images from the original note were not included. Most recent Rheumatology visit: 10/01/2023 (with Chris Cody) Rheumatology Care Team: None on file Recent Office Visits - This Specialty 10/01/2023 Seronegative rheumatoid arthritis (HCC) Rheumatology Chris Cody MD 06/26/2023 Chronic gout of multiple sites, unspecified cause Rheumatology Chris Cody MD 04/03/2023 Chronic gout of multiple sites, unspecified cause Rheumatology Chris Cody MD Upcoming Rheumatology Appointments - Next 365 Days Visit Type Date Time Department [facility] 01/01/2024 10:40 AM [facility] MAIN A50 Last Ophthalmology Check for Plaquenil (Hydroxychloroquine) Last OCT Macula Exam No resulted procedures found. Last Visual Field Exam No resulted procedures found. CBC: Latest Ref Rng & Units 07/06/2023 09/28/2023 CBC WBC 3.70 - 11.00 k/uL 9.44 5.03 Hemoglobin 11.5 - 15.5 g/dL 12.3 12.3 Hematocrit 36.0 - 46.0 % 37.4 37.4 Platelet Count 150 - 400 k/uL 231 197 Abs Neut (ANC) 1.45 - 7.50 k/uL 6.07 2.82 Abs Lymph 1.00 - 4.00 k/uL 2.10 1.23 Vitamin D: None on file in the last 6 months LFT: None on file in the last 6 months Hepatic Function: Latest Ref Rng & Units 07/06/2023 09/28/2023 ALBUMIN Albumin 3.9 - 4.9 g/dL 4.1 4.2 Bilirubin, Total 0.2 - 1.3 mg/dL 0.4 0.6 Bilirubin, Conjug <0.2 mg/dL <0.2 0.2 Alkaline Phosphatase 34 - 123 U/L 105 108 AST 13 - 35 U/L 25 46 ALT 7 - 38 U/L 30 37 Protein, Total 6.3 - 8.0 g/dL 6.6 6.3 Creatinine: Latest Ref Rng & Units 07/06/2023 09/28/2023 Creatinine Creatinine 0.58 - 0.96 mg/dL 1.25 1.17 ESR/CRP: None on file in the last 6 months Uric Acid: Latest Ref Rng & Units 07/06/2023 09/28/2023 Uric Acid Uric Acid 2.5 - 6.6 mg/dL 2.9 2.8 Open Standing (Multiple Instance) Lab Orders Remain Interval Expires Ordered Last Rel. URIC ACID BLOOD [SQURIC] 11/18 Once per month 04/02/24 04/03/23 09/28/23 Auth. provider: Chris Cody MD Assoc. diagnoses: High risk medication use CREATININE BLD [SQCRET] 11/18 Once per month 04/02/24 04/03/23 09/28/23 Auth. provider: Chris Cody MD Assoc. diagnoses: High risk medication use CBC + DIFF [SQCBCDIF] 11/18 Once per month 04/02/24 04/03/23 09/28/23 Auth. provider: Chris Cody MD Assoc. diagnoses: High risk medication use HEPATIC FUNCTION PNL [SQHFP] 11/18 Once per month 04/02/24 04/03/23 09/28/23 Auth. provider: Chris Cody MD Assoc. diagnoses: High risk medication use Open Future (Single Instance) Lab Orders None [facility] History of Present illness Narrative* Jacinta Stoddard - 10/01/2023 2:58 PM EDT [facility] received prescription(s) for Actemra from Dr. Chris Cody's office. Benefits investigation was conducted, indicating that a prior authorization is required by patient's insurance plan with [employer] [facility]. Encounter will be updated once prior authorization has been submitted by [facility]. Ela Adan [facility] P: [phone] F:[phone] documented in this encounterOhiohealth [facility] Hospital07-[facility]-2024 NoteHNO ID: [id number] Author: GRACY LEYVA Formerly [facility] Service: ? Author Type: Pharmacist Type: Progress Notes Filed: 10/07/2023 13:49 Note Text: [facility] received prescription(s) for Actemra from Dr. Chris Cody's office. Benefits investigation was conducted, indicating that a prior authorization is required. EARNESTINE was approved with details listed below: Plan Name: [employer] [facility] Plan Agent/Melara: [id number] PA reference number: [id number] Approval Dates: 09/02/2023 - 03/08/2024 Pt's copay is $0. Shipment has been arranged, and pt will receive medication(s) on 10/09/23. Pt has been instructed to follow-up with clinic to confirm start date. A full drug interaction report was conducted. I reviewed with patient appropriate dose and dosing frequency, administration directions (Inject 1 pen (162mg) subcutaneously every other week.), potential side effects, ability to self-administer and proper storage and handling requirements. S/he expressed understanding of the information we provided today, and received our contact information for the pharmacy if s/he had any other questions. PAST MEDICAL HISTORY No date: Allergic rhinitis No date: Alopecia No date: Chronic kidney disease No date: Fatigue No date: Fibromyalgia No date: GERD (gastroesophageal reflux disease) No date: Hypertension No date: Hypokalemia No date: Hypothyroid No date: Inflammatory polyarthropathies (HCC) No date: Insomnia No date: Multilevel degenerative disc disease No date: Nausea No date: Pancreatitis No date: Tremor ALLERGIES Allergen Reactions Penicillin Rash Percocet [Oxycodone* Rash Tetracycline Rash Problem List Noted Noted By Resolved Resolved By Nausea 05/03/2015 Sherrill Betancourt PA-C No Essential hypertension 05/03/2015 Sherrill Betancourt PA-C No Hypothyroidism 05/03/2015 Sherrill Betancourt PA-C No Gastroesophageal reflux disease 05/03/2015 Sherrill Betancourt PA-C No Fibromyalgia 05/03/2015 Sherrill Betancourt PA-C No Osteoarthritis 05/03/2015 Sherrill Betancourt PA-C No Radio Dispatcher Assessment Patient confirmed: Yes Med/dose confirmed: Yes Supplies needed: No supplies needed Estimated days supply on hand: 0 Copay amount: 0 Delivery method: FedEx Signature required: Waived on patient request Delivery address: [address] [place] [id number] Delivery date: 10/09/23 Questions or concerns for the pharmacist?: Yes Patient questions/concerns: Medication dose, Medication route, Medication storage Did you have any side effects believed to be related to this medication, that resulted in hospitalization?: No [facility] CLINICAL ASSESSMENT - INFLAMMATORY CONDITIONS V6: Ivent complete: No Assessment to use: Initial Patient device teaching: No Teaching not complete reason: Patient has prior experience and is comfortable with administration. Co-morbidity screening (i.e. heart failure, malignancy, MS, serious infection) at [facility] initiation: N/A Sun precaution recommendations (increased BCC risk in RA patients): Yes Diagnosis: Yes Prior therapy and current medication list (including drug interaction assessment): Yes Comorbidities: Yes Allergies: Yes Medical history: Yes Ability to properly self-adminster medication: Yes Therapeutic goals based on possible outcomes of therapy: Yes Does the patient have any additional functional limitations, dietary needs, or safety measures?: No Date of influenza vaccination reminder: 10/07/2023 Date of most recent vaccination assessment: 10/07/2023 Treatment Plan Information: Actemra Actpen 162mg/0.9mL Inject 1 pen (162mg) subcutaneously every other week. (M06.00) Seronegative rheumatoid arthritis Past treatment: Humira Est. Tx Plan Start Date: 10/09/2023 Estimated Start Date Info: No information available Est. Estimated Treatment Duration: Until loss of efficacy and/or no longer tolerated. Ivelisse Leyva, GreyD Clinical Pharmacist, [employer] [facility] ; Pool: P [facility] Pool [facility]: [id number] NoteHNO ID: [id number] Author: ?, ?, ? Service: ? Author Type: ? Type: Progress Notes Filed: 10/06/2023 14:31 Note Text: Actemra EARNESTINE was approved with details listed below. Plan Name: [employer] [facility] Plan Agent/Melara: [id number] PA reference number: [id number] Approval Dates: 09/02/2023 - 03/08/2024 Prescriptions will now be processed through [facility] for determination of next steps. Jacinta Stoddard [facility] P: [phone] F:[phone] NoteHNO ID: [id number] Author: ?, ?, ? Service: ? Author Type: ? Type: Progress Notes Filed: 10/01/2023 15:07 Note Text: [facility] received prescription(s) for Actemra from Dr. Chris Cody's office. Benefits investigation was conducted, indicating that a prior authorization is required by patient's insurance plan with [facility]. Encounter will be updated once prior authorization has been submitted by [facility]. Jacinta Stoddard [facility] P: [phone] F:[phone]07-25-2024 Instructions* Patient Instructions* Chris Cody MD - 10/01/2023 11:23 AM EDT Start prednisone 20 mg x 5 days -> 15 mg x 5 days -> 10 mg x 5 days -> 5 mg x 5 days I will send tocilizumab (actemra) to the specialty pharmacy for approval If you can have your local doctors send me the most recent cardiac testing - it can be faxed to [phone] Follow-up with me in 3 months documented in this encounterOhiohealth [facility] Hospital07-25-2024 NoteHNO ID: [id number] Author: CHRIS CODY MD Service: ? Author Type: Physician Type: Progress Notes Filed: 10/04/2023 11:29 Note Text: Rheumatology Clinic Date of Service: 10/01/2023 Patient: Savannah Aguirre Medical Record: [id number] Primary Care Physician: Shahab Adams DO Last Rheumatology visit: 10/01/2023 (with Chris Margotmarcelinofortunato) History of Present Illness Savannah Aguirre is a 62 year old White female who presents on 10/01/2023 for in person visit for evaluation of Joint Pain. She is currently taking prednisone, tocilizumab. Savannah is both RF - 9 (11/21/2022) and CCP - 13.5 (11/21/2022) negative. Her most recent CHASIDY was negative (01/16/2023). HISTORY OF PRESENT ILLNESS Patient scheduled to see me today for arthritis. 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 8-10 years dx'ed with RA but blood test and pain- hips, shoulders, feet. Patient has CRI, she used Methotrexate for one week and stopped. Treatment has included low dose predisone forever. Plaquenil Tried Enbrel about 2 years ago- states not sure if this helped. Stopped the Enbrel as prescription ran out. Then moved to [facility]. - thinks again on for a few years , she is not quite sure when last injection was, maybe 9-12 months ago. Not sure if the Orencia was helping Current medications: Plaquenil 200 mg BID- [facility] Past Medical History: - Chronic kidney disease stage III (2/2 chronic NSAID use) - Pain management Past Surgical History: - Tonsillectomy - Hysterectomy - Thyroid partial - Carpal tunnel release b/l - Spinal cord stimulator placement and removal Family History: - mother had some sort of pain issues (fibromyalgia) - grandmother - maybe osteoarthritis Social History: - Never smoker - Rare alcohol use - No other drugs Seen pain management- she is on norco 2-4 pill per day, gabapentin 3 times per day. + chronic back pain, had past spinal cord stimulator that had to be removed body rejected it' No prior surgery on her joints. Joints are not good. Describes dull tenderness- wrists, back, ankles, feet. She is getting swelling of her joints. She has some nodules of wrist and hand. Likes to sew, crafting, not on regular exercise regime, ADL's Has also been diagnosed Fibromyalgia, maybe on antidepressant but made me more depressed. Sleep is poor. Takes naps during the day. 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 INTERVAL HISTORY Today she notes worsening of joint pain and recurrence of chronic joint swelling since last visit. This is similar to prior to when she first saw me. Notes minimal improvement with colchicine. Worst joints are wrists/hands, feet/ankles. No history of GI surgery, bowel perforation, diverticulitis. Last lipids were checked with PCP and were reportedly normal. Patient-Entered Data PROMIS Assessments 11/18/2022 06/25/2023 09/29/2023 PROMIS Global Health - (T-Scores - the mean of general population = 50. Five points is a clinically meaningful difference.) Physical T-Score 34.9 32.4 29.6 Mental T-Score 38.8 33.8 38.8 11/18/2022 06/25/2023 09/29/2023 PROMIS CAT Pain Interference PROMIS Pain Interference T-Score (range: 10 - 90) 67 (moderate) 67 (moderate) 72 (severe) PROMIS Pain Interference Percentile 4 4 1 PROMIS Adult Short Form-Global Health Score (Mental) 38.8 (Fair) 33.8 (Fair) 38.8 (Fair) 11/18/2022 06/25/2023 09/29/2023 PROMIS CAT Fatigue PROMIS Fatigue T-Score 64 (moderate) 69 (moderate) 69 (moderate) PROMIS Fatigue Percentile 8 3 3 11/18/2022 06/25/2023 09/29/2023 PROMIS PHYSICAL FUNCTION T-SCORE PROMIS Physical Function T-Score 29 (severe dysfunction) 31 (moderate dysfunction) 32 (moderate dysfunction) Physical Function Percentile 2 3 4 RAPID 3 Melara Activities of Daily Living 09/29/2023 10:14 PM 06/25/2023 4:45 PM 11/18/2022 1:01 AM Dress self? With MUCH difficulty With SOME difficulty With SOME difficulty Get in and out of bed? With MUCH difficulty With SOME difficulty With SOME difficulty Walk outdoors? With MUCH difficulty With SOME difficulty With SOME difficulty Wash and dry body? With MUCH difficulty With MUCH difficulty With SOME difficulty Get in and out of car? With MUCH difficulty With SOME difficulty With SOME difficulty RAPID 3 Disease Activity Weighed Score Levels: 0 - 1: Near Remission 1.3 - 2.0: Low Severity 2.3 - 4.0: Moderate Severity 4.3 - 10.0: High Severity 11/18/2022 06/25/2023 09/29/2023 RAPID-3 Weighed Score RAPID 3 Weighed Score 5.39 (High severity ) 6.06 (High severity ) Incomplete Patient Health Questionnaire (PHQ-9) No data to display (0-4) minimal depression, (5-9) mild depression, (10-14) moderate depression, (15-19) moderately severe depression, (20-27) (more content not included)... [facility]07-25-2024 History of Present illness Narrative* Chris Cody MD - 10/01/2023 10:54 AM EDT Images from the original note were not included. Rheumatology Clinic Date of Service: 10/01/2023 Patient: Savannah Aguirre Medical Record: [id number] Primary Care Physician: Shahab Adams DO Last Rheumatology visit: 10/01/2023 (with Chris Cody) History of Present Illness Savannah Aguirre is a 62 year old White female who presents on 10/01/2023 for in person visit for evaluation of Joint Pain. She is currently takingprednisone, tocilizumab. Savannah is both RF - 9 (11/21/2022) and CCP - 13.5 (11/21/2022) negative. Her most recent CHASIDY was negative (01/16/2023). HISTORY OF PRESENT ILLNESS Patient scheduled to see me today for arthritis. 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 8-10 years dx'ed with RA but blood test and pain- hips, shoulders, feet. Patient has CRI, she used Methotrexate for one week and stopped. Treatment has included low dose predisone forever. Harjitnil Tried Enbrel about 2 years ago- states not sure if this helped. Stopped the Enbrel as prescriptionran out. Then moved to [facility]. - thinks again on for a few years , she is not quite sure when last injection was, maybe 9-12 months ago. Not sure if the Orencia was helping Current medications: Plaquenil 200 mg BID- [facility] Past Medical History: - Chronic kidney disease stage III (2/2 chronic NSAID use) - Pain management Past Surgical History: - Tonsillectomy - Hysterectomy - Thyroid partial - Carpal tunnel release b/l - Spinal cord stimulator placement and removal Family History: - mother had some sort of pain issues (fibromyalgia) - grandmother - maybe osteoarthritis Social History: - Never smoker - Rare alcohol use - No other drugs Seen pain management- she is on norco 2-4 pill per day, gabapentin 3 times per day. + chronic back pain, had past spinal cord stimulator that had to be removed body rejected it' No prior surgery on her joints. Joints are not good. Describes dull tenderness- wrists, back, ankles, feet. She is getting swelling of her joints. She has some nodules of wrist and hand. Likes to sew, crafting, not on regular exercise regime, ADL's Has also been diagnosed Fibromyalgia, maybe on antidepressant but made me more depressed. Sleep is poor. Takes naps during the day. 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 INTERVAL HISTORY Today she notes worsening of joint pain and recurrence of chronic joint swelling since last visit. This is similar to prior to when she first saw me. Notes minimal improvement with colchicine. Worst joints are wrists/hands, feet/ankles. No history of GI surgery, bowel perforation, diverticulitis. Last lipids were checked with PCP and were reportedly normal. Patient-Entered Data PROMIS Assessments 11/18/2022 06/25/2023 09/29/2023 PROMIS Global Health - (T-Scores - the mean of general population = 50. Five points is a clinicallymeaningful difference.) Physical T-Score 34.9 32.4 29.6 Mental T-Score 38.8 33.8 38.8 11/18/2022 06/25/2023 09/29/2023 PROMIS CAT Pain Interference PROMIS Pain Interference T-Score (range: 10 - 90) 67 (moderate) 67 (moderate) 72 (severe) PROMIS Pain Interference Percentile 4 4 1 PROMIS Adult Short Form-Global Health Score (Mental) 38.8 (Fair) 33.8 (Fair) 38.8 (Fair) 11/18/2022 06/25/2023 09/29/2023 PROMIS CAT Fatigue PROMIS Fatigue T-Score 64 (moderate) 69 (moderate) 69 (moderate) PROMIS Fatigue Percentile 8 3 3 11/18/2022 06/25/2023 09/29/2023 PROMIS PHYSICAL FUNCTION T-SCORE PROMIS Physical Function T-Score 29 (severe dysfunction) 31 (moderate dysfunction) 32 (moderate dysfunction) Physical Function Percentile 2 3 4 RAPID 3 Melara Activities of Daily Living 09/29/2023 10:14 PM 06/25/2023 4:45 PM 11/18/2022 1:01 AM Dress self? With MUCH difficulty With SOME difficulty With SOME difficulty Get in and out of bed? With MUCH difficulty With SOME difficulty With SOME difficulty Walk outdoors? With MUCH difficulty With SOME difficulty With SOME difficulty Wash and dry body? With MUCH difficulty With MUCH difficulty With SOME difficulty Get in and out of car? With MUCH difficulty With SOME difficulty With SOME difficulty RAPID 3 Disease Activity Weighed Score Levels: 0 - 1: Near Remission 1.3 - 2.0: Low Severity 2.3 - 4.0: Moderate Severity 4.3 - 10.0: High Severity 11/18/2022 06/25/2023 09/29/2023 RAPID-3 Weighed Score RAPID 3 Weighed Score 5.39 (High severity ) 6.06 (High severity ) Incomplete Patient Health Questionnaire (PHQ-9) No data to display (0-4) minimal depression, (5-9) mild depression, (10-14) moderate depression, (15-19) moderately severe depression, (20-27) severe depression Review of Systems Review of Systems CONSTITUTION: Negative for: Fever HEENT: Negative for: Nosebleeds, Mouth sores, Trouble swallowing and Dry mouth RESPIRATORY: Negative for: Cough, Shortness of breath and Pain with breathing GASTROINTESTINAL: Positive for: Diarrhea and Heartburn Negative for: Melena and Abdominal pain MUSCULOSKELETAL: Positive for: Arthralgias, Myalgias, Muscle weakness, Joint swelling and Morning Joint Stiffness NEUROLOGICAL: Positive for: Memory loss Negative for: Headaches and Numbness SKIN: Negative for: Rash, Skin changes, Hair loss and Nail changes EYES: Negative for: Eye pain, Eye redness and visual disturbance CARDIOVASCULAR: Positive for: Leg swelling Negative for: Chest pain GENITOURINARY: Negative for: Dysuria and Hematuria HEMATOLOGIC/LYMPHATIC: Negative for: Swollen glands All other reviewed and negative other than HPI. Current Medications Current Outpatient Medications on File Prior to Visit Medication Sig colchicine 0.6 mg tablet take 1 tablet by mouth twice a day allopurinol (ZYLOPRIM) 100 mg tablet TAKE 3 TABLETS ONCE DAILY Omeprazole 40 mg capsule Take 40 mg by mouth twice daily. levothyroxine (SYNTHROID) 100 mcg tablet Take 100 mcg by mouth once daily. hydroxychloroquine (PLAQUENIL) 200 mg tablet Take by mouth twice daily. metoprolol tartrate, short acting, (LOPRESSOR) 25 mg tablet Take 50 mg by mouth once daily. triamterene-hydrochlorothiazide 37.5-25 mg per capsule Take 1 capsule by mouth once daily. potassium chloride (K-SUNG, KLOR-CON) 20 mEq packet Take 20 mEq by mouth three times daily. magnesium oxide 400 mg cap Take 400 mg by mouth twice daily. gabapentin (NEURONTIN) 300 mg capsule Take 300 mg by mouth once daily. HYDROcodone-acetaminophen (NORCO) 5-325 mg per tablet Take 1 tablet by mouth twice daily. buprenorphine 15 mcg/hour ptwk Apply as directed. No current facility-administered medications on file prior to visit. Last Ophthalmology Check for Plaquenil (Hydroxychloroquine) Last OCT Macula Exam No resulted procedures found. Last Visual Field Exam No resulted procedures found. Labs See HPI Imaging Last XR Hand/Finger - Impression Only XR HAND GENERAL 3V PA/LAT/OBL BILATERAL Exam End: 11/21/2022 3:07 PM (Final result) Impression: IMPRESSION: No radiographic findings of inflammatory arthropathy. Couture Alterations Dressmaker: RANDY Transcribe Date/Time: Nov 21 2022 3:31P... Last XR Shoulder - Impression Only XR SHOULDER GENERAL 3V OR MORE AP/TRUE AP/OTHER RIGHT Exam End: 11/21/2022 3:07 PM (Final result) Impression: IMPRESSION: Degenerative changes greater on the right. Couture Alterations Dressmaker: RANDY Transcribe Date/Time: Nov 21 2022 3:29P... Last XR Foot / Toe - Impression Only XR FOOT GENERAL 3V AP/LAT/OBL BILATERAL Exam End: 11/21/2022 3:07 PM (Final result) Impression: IMPRESSION: Degenerative changes. No radiographic findings of inflammatory arthropathy. Couture Alterations Dressmaker: RANDY ... Physical Exam BP 142/56 Pulse 49 Temp (Src) 97.7 (Temporal) Ht 5' 3 (1.60m) Wt 189 lb 6 oz (85.9kg) BMI 33.55 kg/(m^2). Exam: GENERAL: Well appearing, laying in bed, in NAD. HEENT: NCAT, PERRLA, EOMI, no scleral icterus, oropharynx clear and without lesions/ulcers. CV: Normal rate, regular rhythm. No appreciable murmur/rub/gallop. PULM: Normal WOB and RR on RA. Lung salmeron CTA bilaterally without appreciable wheezes or crackles. GI: NABS, soft, nondistended, nontender. EXT: 2+ radial and DP/PT pulses. No edema. SKIN: Warm, dry, no significant rashes, no significant bruising. NEURO: A&Ox3. Mental status and speech normal. MSK: Neck: Flexion, extension, and lateral rotation WNL. Spine: Intact ROM. No TTP. Shoulders: pain in both shoulders with active/passive ROM, limited abduction beyond 120 degrees. Elbows: No flexion contractures. No appreciable swelling, deformities, or tenderness with palpation. Wrists: swelling with limitation in ROM of both wrists with associated warmth. Hands: tenderness of multiple PIP and MCP joints, 1st and 2nd MCPs are swollen. Hips: Intact ROM. No tenderness with palpation. Knees: No gross deformity. No appreciable effusion. No tenderness with palpation of joint lines. Nojoint laxity and intact ROM. Ankles: soft tissue swelling both ankles, no clear synovitis though there is slight pain with ROM of the left ankle. Feet: + MTP squeeze both feet and mid foot Joint Exam Data (across time) 11/21/2022 Joint Exam Total Tender 12 Total Swollen 10 Impression and Plan Diagnoses: (M06.00) Seronegative rheumatoid arthritis (HCC) (primary encounter diagnosis) (M1A.09X0) Chronic gout of multiple sites, unspecified cause (M11.20) Calcium pyrophosphate deposition disease (CPPD) (M15.9) Generalized osteoarthritis (Z79.899) High risk medication use (M79.7) Fibromyalgia (R74.8) Elevated liver enzymes (M25.471, M25.474, M25.475, M25.472) Bilateral swelling of feet and ankles mod- severe active RA Savannah Aguirre is a 62 year old female who presents for follow-up of inflammatory arthritis. This is a patient with a 10 year history of reported seronegative rheumatoid arthritis. Her description is largely non-inflammatory, though she does have clear swelling and episodes of exquisite painwith minimal provocation. She also has episodes of more diffuse body pain and myalgias. She has previously used the following medications: - Methotrexate - Hydroxychloroquine (currently in use) - Abatacept - Etanercept - Adalimumab - Prednisone 5 mg daily She has not experienced significant benefit with any of these medications. Humira x 4 months has not improved her symptoms. Today there is worsening joint swelling and warmth compared to prior exam, consistent with active synovitis. Suspect some of this was masked/treated with humira in the past, and has now reemerged since stopping it. Discussed a plan to initiate actemra and discussed the risks and benefits. Will needto check lipids in the short term. However, I suspect that she has active seronegative RA in addition to the other diagnoses such as gout (currently under good control) and CPPD (on colchicine for this). She also has fibromyalgia, which we can address at next visit. Plan: - Continue allopurinol 300 mg daily - Continue colchicine 0.6 mg daily - Continue hydroxychloroquine 200 mg BID - needs eye exam documentation - Prednisone taper as below - Actemra 162 mg every other week - sent to specialty pharmacy. - Obtain previous cardiology records given leg swelling/edema - history of CHF - Follow-up in 2-3 months Orders this visit: Office Visit on 10/01/23 predniSONE (DELTASONE) 5 mg tablet tocilizumab 162 mg/0.9 mL No follow-ups on file. CC: PCP: Shahab Adams DO [id number] [place] [address] Phone #: [phone] I spent a total of 47 minutes on the date of the service which included preparing to see the patient, [id number] patient care, completing clinical documentation, obtaining and/or reviewing separately obtained history, performing a medically appropriate examination, counseling and educating the pat ient/family/caregiver, ordering medications, tests, or procedures, and independently interpreting results (not separately reported). Chris Cody MD Rheumatology Date: October 01, 2023 Time: 10:54 AM documented in this encounter[facility] Telephone encounter Note * Telephone Encounter - Noelle Mcfadden RN - 09/14/2023 11:20 AM EDT Images from the original note were not included. Most recent Rheumatology visit: 06/26/2023 (with Chris Cody) Rheumatology Care Team: None on file Recent Office Visits - This Specialty 06/26/2023 Chronic gout of multiple sites, unspecified cause Rheumatology Chris Cody MD 04/03/2023 Chronic gout of multiple sites, unspecified cause Rheumatology Chris Cody MD 01/16/2023 Seronegative rheumatoid arthritis (HCC) Rheumatology Chris Cody MD Upcoming Rheumatology Appointments - Next 365 Days Visit Type Date Time Department [facility] 10/01/2023 10:40 AM [facility] MAIN A50 Last Ophthalmology Check for Plaquenil (Hydroxychloroquine) Last OCT Macula Exam No resulted procedures found. Last Visual Field Exam No resulted procedures found. CBC: Latest Ref Rng & Units 06/23/2023 07/06/2023 CBC WBC 3.70 - 11.00 k/uL 7.52 9.44 Hemoglobin 11.5 - 15.5 g/dL 13.1 12.3 Hematocrit 36.0 - 46.0 % 40.0 37.4 Platelet Count 150 - 400 k/uL 233 231 Abs Neut (ANC) 1.45 - 7.50 k/uL 3.84 6.07 Abs Lymph 1.00 - 4.00 k/uL 2.38 2.10 Vitamin D: None on file in the last 6 months LFT: None on file in the last 6 months Hepatic Function: Latest Ref Rng & Units 06/23/2023 07/06/2023 ALBUMIN Albumin 3.9 - 4.9 g/dL 4.1 4.1 Bilirubin, Total 0.2 - 1.3 mg/dL 0.6 0.4 Bilirubin, Conjug <0.2 mg/dL 0.2 <0.2 Alkaline Phosphatase 34 - 123 U/L 103 105 AST 13 - 35 U/L 72 25 ALT 7 - 38 U/L 65 30 Protein, Total 6.3 - 8.0 g/dL 6.6 6.6 Creatinine: Latest Ref Rng & Units 06/23/2023 07/06/2023 Creatinine Creatinine 0.58 - 0.96 mg/dL 1.28 1.25 ESR/CRP: None on file in the last 6 months Uric Acid: Latest Ref Rng & Units 06/23/2023 07/06/2023 Uric Acid Uric Acid 2.5 - 6.6 mg/dL 3.0 2.9 Open Standing (Multiple Instance) Lab Orders Remain Interval Expires Ordered Last Rel. URIC ACID BLOOD [SQURIC] 10 Once per month 04/02/24 04/03/23 07/06/23 Auth. provider: Chris Cody MD Assoc. diagnoses: High risk medication use CREATININE BLD [SQCRET] 10 Once per month 04/02/24 04/03/23 07/06/23 Auth. provider: Chris Cody MD Assoc. diagnoses: High risk medication use CBC + DIFF [SQCBCDIF] 1012 Once per month 04/02/24 04/03/23 07/06/23 Auth. provider: Chris Cody MD Assoc. diagnoses: High risk medication use HEPATIC FUNCTION PNL [SQHFP] 1012 Once per month 04/02/24 04/03/23 07/06/23 Auth. provider: Chris Cody MD Assoc. diagnoses: High risk medication use Open Future (Single Instance) Lab Orders Expected Expires Ordered HEPATIC FUNCTION PNL [SQHFP] 06/28/23 09/27/23 06/28/23 Auth. provider: Chris Cody MD Assoc. diagnoses: Elevated liver enzymes, High risk medication use [facility]-08[facility] Miscellaneous Notes* Telephone Encounter - Noelle Mcfadden RN - 09/14/2023 11:20 AM EDT Images from the original note were not included. Most recent Rheumatology visit: 06/26/2023 (with Chris Cody) Rheumatology Care Team: None on file Recent Office Visits - This Specialty 06/26/2023 Chronic gout of multiple sites, unspecified cause Rheumatology Chris Cody MD 04/03/2023 Chronic gout of multiple sites, unspecified cause Rheumatology Chris Cody MD 01/16/2023 Seronegative rheumatoid arthritis (HCC) Rheumatology Chris Cody MD Upcoming Rheumatology Appointments - Next 365 Days Visit Type Date Time Department [facility] 10/01/2023 10:40 AM [facility] A[facility] Last Ophthalmology Check for Plaquenil (Hydroxychloroquine) Last OCT Macula Exam No resulted procedures found. Last Visual Field Exam No resulted procedures found. CBC: Latest Ref Rng & Units 06/23/2023 07/06/2023 CBC WBC 3.70 - 11.00 k/uL 7.52 9.44 Hemoglobin 11.5 - 15.5 g/dL 13.1 12.3 Hematocrit 36.0 - 46.0 % 40.0 37.4 Platelet Count 150 - 400 k/uL 233 231 Abs Neut (ANC) 1.45 - 7.50 k/uL 3.84 6.07 Abs Lymph 1.00 - 4.00 k/uL 2.38 2.10 Vitamin D: None on file in the last 6 months LFT: None on file in the last 6 months Hepatic Function: Latest Ref Rng & Units 06/23/2023 07/06/2023 ALBUMIN Albumin 3.9 - 4.9 g/dL 4.1 4.1 Bilirubin, Total 0.2 - 1.3 mg/dL 0.6 0.4 Bilirubin, Conjug <0.2 mg/dL 0.2 <0.2 Alkaline Phosphatase 34 - 123 U/L 103 105 AST 13 - 35 U/L 72 25 ALT 7 - 38 U/L 65 30 Protein, Total 6.3 - 8.0 g/dL 6.6 6.6 Creatinine: Latest Ref Rng & Units 06/23/2023 07/06/2023 Creatinine Creatinine 0.58 - 0.96 mg/dL 1.28 1.25 ESR/CRP: None on file in the last 6 months Uric Acid: Latest Ref Rng & Units 06/23/2023 07/06/2023 Uric Acid Uric Acid 2.5 - 6.6 mg/dL 3.0 2.9 Open Standing (Multiple Instance) Lab Orders Remain Interval Expires Ordered Last Rel. URIC ACID BLOOD [SQURIC] 12/18 Once per month 04/02/24 04/03/23 07/06/23 Auth. provider: Chris Cody MD Assoc. diagnoses: High risk medication use CREATININE BLD [SQCRET] 12/18 Once per month 04/02/24 04/03/23 07/06/23 Auth. provider: Chris Cody MD Assoc. diagnoses: High risk medication use CBC + DIFF [SQCBCDIF] 12/18 Once per month 04/02/24 04/03/23 07/06/23 Auth. provider: Chris Cody MD Assoc. diagnoses: High risk medication use HEPATIC FUNCTION PNL [SQHFP] 12/18 Once per month 04/02/24 04/03/23 07/06/23 Auth. provider: Chris Cody MD Assoc. diagnoses: High risk medication use Open Future (Single Instance) Lab Orders Expected Expires Ordered HEPATIC FUNCTION PNL [SQHFP] 06/28/23 09/27/23 06/28/23 Auth. provider: Chris Cody MD Assoc. diagnoses: Elevated liver enzymes, High risk medication use documented in this encounterOhio[facility]06-[facility] Telephone encounter Note * Telephone Encounter - Eugenia Medellin - 08/20/2023 3:44 PM EDT Per pt, she was taken off colchicine after her 06/26/23 visit. She began noticing symptoms about a week after she stopped taking the medication. Pt has had increased pain, noted especially in hands and feet. Pt has also had increased swelling in both legs, primarily the ankles and feet, which has resulted in issues getting shoes on/discomfort while wearing shoes. Also noted swelling in hands and issues making and keeping a fist. Pt states she has an upcoming appt on 10/01/23 but is hoping to have some relief prior to visit if possible. Pt would like a call back at [phone] (home) to discuss treatment plan. [facility] Miscellaneous Notes* Telephone Encounter - Eugenia Medellin - 08/20/2023 3:44 PM EDT Per pt, she was taken off colchicine after her 06/26/23 visit. She began noticing symptoms about a week after she stopped taking the medication. Pt has had increased pain, noted especially in hands and feet. Pt has also had increased swelling in both legs, primarily the ankles and feet, which has resulted in issues getting shoes on/discomfort while wearing shoes. Also noted swelling in hands and issues making and keeping a fist. Pt states she has an upcoming appt on 10/01/23 but is hoping to have some relief prior to visit if possible. Pt would like a call back at [phone] (home) to discuss treatment plan. documented in this encounterOhio[facility]04-[facility]24 Evaluation note* Diagnosis Chronic gout of multiple sites, unspecified cause- Primary Hypertensive kidney disease with stage 3 chronic kidney disease, unspecified whether stage 3a or 3b CKD (HCC) Fibromyalgia Mylagia and myositis, unspecified Elevated liver enzymes Other nonspecific abnormal serum enzyme levels High risk medication use Encounter for long-term (current) use of other medications documented in this encounter [facility]04-19-[facility] Instructions* Patient Instructions* Chris Cody MD - 06/26/2023 11:34 AM EDT For the next week pause the colchicine Repeat blood work in about 1 week (with some additional liver tests). If liver tests are still elevated, I will send you to a liver specialist Continue allopurinol 300 mg daily I will refer to Integrative Medicine (Wellness Physician) for non-medication treatments for fibromyalgia If you would like, I will also refer you to pain management documented in this encounterOhio[facility]04-19-2024 History of Present illness Narrative* Chris Cody MD - 06/26/2023 11:06 AM EDT Images from the original note were not included. Rheumatology Clinic Date of Service: 06/26/2023 Patient: Savannah Aguirre Medical Record: [id number] Primary Care Physician: Shahab Adams DO Last Rheumatology visit: 06/26/2023 (with Chris Cody) History of Present Illness Savannah Aguirre is a 62 year old White female who presents on 06/26/2023 for in person visit for evaluation of Gout. Savannah is both RF - 9 (11/21/2022) and CCP - 13.5 (11/21/2022) negative. Her most recent CHASIDY was negative (01/16/2023). HISTORY OF PRESENT ILLNESS Patient scheduled to see me today for arthritis. 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 8-10 years dx'ed with RA but blood test and pain- hips, shoulders, feet. Patient has CRI, she used Methotrexate for one week and stopped. Treatment has included low dose predisone forever. Plaquenil Tried Enbrel about 2 years ago- states not sure if this helped. Stopped the Enbrel as prescriptionran out. Then moved to [facility]. - thinks again on for a few years , she is not quite sure when last injection was, maybe 9-12 months ago. Not sure if the Orencia was helping Current medications: Plaquenil 200 mg BID- [facility] Past Medical History: - Chronic kidney disease stage III (2/2 chronic NSAID use) - Pain management Past Surgical History: - Tonsillectomy - Hysterectomy - Thyroid partial - Carpal tunnel release b/l - Spinal cord stimulator placement and removal Family History: - mother had some sort of pain issues (fibromyalgia) - grandmother - maybe osteoarthritis Social History: - Never smoker - Rare alcohol use - No other drugs Seen pain management- she is on norco 2-4 pill per day, gabapentin 3 times per day. + chronic back pain, had past spinal cord stimulator that had to be removed body rejected it' No prior surgery on her joints. Joints are not good. Describes dull tenderness- wrists, back, ankles, feet. She is getting swelling of her joints. She has some nodules of wrist and hand. Likes to sew, crafting, not on regular exercise regime, ADL's Has also been diagnosed Fibromyalgia, maybe on antidepressant but made me more depressed. Sleep is poor. Takes naps during the day. 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 INTERVAL HISTORY Since last visit, uric acid is < 4.0. No more gout-like flares of foot or knee pain. Still has pain in multiple joints/soft tissue areas. Exhaustibility is present as well. Has not noticed a difference in her pain since discontinuing adalimumab. Recent lab work showed increased liver enzymes. Notes that her opioids do not have the same effect as before. Patient-Entered Data PROMIS Assessments 11/18/2022 06/25/2023 PROMIS Global Health - (T-Scores - the mean of general population = 50. Five points is a clinicallymeaningful difference.) Physical T-Score 34.9 32.4 Mental T-Score 38.8 33.8 11/18/2022 06/25/2023 PROMIS CAT Pain Interference PROMIS Pain Interference T-Score (range: 10 - 90) 67 (moderate) 67 (moderate) PROMIS Pain Interference Percentile 4 4 PROMIS Adult Short Form-Global Health Score (Mental) 38.8 (Fair) 33.8 (Fair) 11/18/2022 06/25/2023 PROMIS CAT Fatigue PROMIS Fatigue T-Score 64 (moderate) 69 (moderate) PROMIS Fatigue Percentile 8 3 11/18/2022 06/25/2023 PROMIS PHYSICAL FUNCTION T-SCORE PROMIS Physical Function T-Score 29 (severe dysfunction) 31 (moderate dysfunction) Physical Function Percentile 2 3 RAPID 3 Melara Activities of Daily Living 06/25/2023 4:45 PM 11/18/2022 1:01 AM Dress self? With SOME difficulty With SOME difficulty Get in and out of bed? With SOME difficulty With SOME difficulty Walk outdoors? With SOME difficulty With SOME difficulty Wash and dry body? With MUCH difficulty With SOME difficulty Get in and out of car? With SOME difficulty With SOME difficulty RAPID 3 Disease Activity Weighed Score Levels: 0 - 1: Near Remission 1.3 - 2.0: Low Severity 2.3 - 4.0: Moderate Severity 4.3 - 10.0: High Severity 11/18/2022 06/25/2023 RAPID-3 Weighed Score RAPID 3 Weighed Score 5.39 (High Severity (HS)) 6.06 (High Severity (HS)) Patient Health Questionnaire (PHQ-9) No data to display (0-4) minimal depression, (5-9) mild depression, (10-14) moderate depression, (15-19) moderately severe depression, (20-27) severe depression Review of Systems Review of Systems CONSTITUTION: Negative for: Fever and Recent weight change HEENT: Positive for: Trouble swallowing and Dry mouth Negative for: Nosebleeds and Mouth sores RESPIRATORY: Negative for: Cough, Shortness of breath and Pain with breathing GASTROINTESTINAL: Negative for: Melena, Diarrhea and Abdominal pain MUSCULOSKELETAL: Positive for: Myalgias, Muscle weakness, Joint swelling and Morning Joint Stiffness NEUROLOGICAL: Positive for: Numbness and Memory loss SKIN: Negative for: Rash, Skin changes, Hair loss and Nail changes EYES: Positive for: Eye dryness Negative for: Eye pain, Eye redness and visual disturbance CARDIOVASCULAR: Negative for: Chest pain and Leg swelling GENITOURINARY: Negative for: Dysuria and Hematuria HEMATOLOGIC/LYMPHATIC: Negative for: Swollen glands All other reviewed and negative other than HPI. Current Medications Current Outpatient Medications on File Prior to Visit Medication Sig allopurinol (ZYLOPRIM) 100 mg tablet TAKE 3 TABLETS ONCE DAILY colchicine 0.6 mg tablet Take 1 tablet by mouth once daily. Omeprazole 40 mg capsule Take 40 mg by mouth twice daily. levothyroxine (SYNTHROID) 100 mcg tablet Take 100 mcg by mouth once daily. hydroxychloroquine (PLAQUENIL) 200 mg tablet Take by mouth twice daily. metoprolol tartrate, short acting, (LOPRESSOR) 25 mg tablet Take 25 mg by mouth once daily. triamterene-hydrochlorothiazide 37.5-25 mg per capsule Take 1 capsule by mouth once daily. potassium chloride (K-SUNG, KLOR-CON) 20 mEq packet Take 20 mEq by mouth three times daily. magnesium oxide 400 mg cap Take 400 mg by mouth twice daily. gabapentin (NEURONTIN) 300 mg capsule Take 300 mg by mouth once daily. HYDROcodone-acetaminophen (NORCO) 5-325 mg per tablet Take 1 tablet by mouth twice daily. buprenorphine 15 mcg/hour ptwk Apply as directed. hyoscyamine (LEVSIN) 0.125 mg tablet Take 1 tablet by mouth three times daily before meals. ondansetron (ZOFRAN) 8 mg tablet Take 1 tablet by mouth as needed. Milnacipran (SAVELLA) 12.5 mg tab Take 12.5 mg by mouth twice daily. No current facility-administered medications on file prior to visit. Last Ophthalmology Check for Plaquenil (Hydroxychloroquine) Last OCT Macula Exam No resulted procedures found. Last Visual Field Exam No resulted procedures found. Labs See HPI Imaging Last XR Hand/Finger - Impression Only XR HAND GENERAL 3V PA/LAT/OBL BILATERAL Exam End: 11/21/2022 3:07 PM (Final result) Impression: IMPRESSION: No radiographic findings of inflammatory arthropathy. Couture Alterations Dressmaker: RANDY Transcribe Date/Time: Nov 21 2022 3:31P... Last XR Foot / Toe - Impression Only XR FOOT GENERAL 3V AP/LAT/OBL BILATERAL Exam End: 11/21/2022 3:07 PM (Final result) Impression: IMPRESSION: Degenerative changes. No radiographic findings of inflammatory arthropathy. Couture Alterations Dressmaker: RANDY ... Physical Exam BP 128/72 Pulse 60 Temp (Src) 98 (Temporal) Ht 5' 2.992 (1.60m) Wt 188 lb 7.9 oz (85.5kg) SpO2 99% BMI 33.40 kg/(m^2). Exam: GENERAL: Well appearing, laying in bed, in NAD. HEENT: NCAT, PERRLA, EOMI, no scleral icterus, oropharynx clear and without lesions/ulcers. CV: Normal rate, regular rhythm. No appreciable murmur/rub/gallop. PULM: Normal WOB and RR on RA. Lung salmeron CTA bilaterally without appreciable wheezes or crackles. EXT: 2+ radial and DP/PT pulses. No edema. SKIN: Warm, dry, no significant rashes, no significant bruising. NEURO: A&Ox3. Mental status and speech normal. MSK: Shoulders: Intact ROM without reported pain. No effusions. Some soft tissue tenderness Elbows: No flexion contractures. No appreciable swelling, deformities, or tenderness with palpation. Wrists: No limitation of flexion or extension. No appreciable swelling or tenderness with palpation. Hands: No evidence of synovitis or tenderness with palpation. Able to make full fist bilaterally. Hips: Intact ROM. No tenderness with palpation. Knees: No gross deformity. No appreciable effusion. No tenderness with palpation of joint lines. Nojoint laxity and intact ROM. Ankles: No limitation of plantarflexion or dorsiflexion. No appreciable effusion. No tenderness with palpation. Feet: No evidence of synovitis or tenderness with palpation. Impression and Plan Diagnoses: (M1A.09X0) Chronic gout of multiple sites, unspecified cause (primary encounter diagnosis) (I12.9, N18.30) Hypertensive kidney disease with stage 3 chronic kidney disease, unspecified whether stage 3a or 3b CKD (HCC) (M79.7) Fibromyalgia (R74.8) Elevated liver enzymes (Z79.899) High risk medication use mod- severe active RA Savannah Aguirre is a 62 year old female who presents for follow-up of inflammatory arthritis. This is a patient with a 10 year history of reported seronegative rheumatoid arthritis. Her description is largely non-inflammatory, though she does have clear swelling and episodes of exquisite painwith minimal provocation. She also has episodes of more diffuse body pain and myalgias. She has previously used the following medications: - Methotrexate - Hydroxychloroquine (currently in use) - Abatacept - Etanercept - Adalimumab (currently in use) - Prednisone 5 mg daily She has not experienced significant benefit with any of these medications. Humira x 4 months has not improved her symptoms. Her exam does reveal synovial hypertrophy of the wrists and tenderness of multiple areas in the hands, feet, ankles. She has ECU tendonitis and Dequarvains tenosynovitis of the left wrist today, likely related to overuse vs gouty flare. Based on her lack of response to RA treatment and lack of serologic markers for RA, I doubt she has this condition. I suspect her symptoms are largely related to chronic osteoarthritis (possibly with an inflammatory component). Given her episodic joint swelling,hyperuricemia, and improvement with colchicine, she likely has chronic gout. She has now been on allopurinol x 3 months with good improvement in serum urate. She does not have episodic pain since then. She does still have chronic pain in multiple locations, likely a combination of her generalized osteoarthritis and fibromyalgia. Discussed options for seeing wellness physician/integrative medicine and to see pain management to consider tapering off opioids. Plan: - Continue allopurinol 300 mg daily - Stop colchicine x 1 week and recheck liver enzymes due to elevated LFTs - Continue hydroxychloroquine 200 mg BID - needs eye exam documentation - Referral to wellness/integrative medicine - Referral to pain management in reserve - Follow-up in 2-3 months Orders this visit: Office Visit on 06/26/23 HEPATIC FUNCTION PNL HEP ACUTE PANEL BL CONSULT TO WELLNESS PHYSICIAN No follow-ups on file. CC: PCP: Shahab Adams DO [id number] [place] [address] Phone #: [phone] I spent a total of 46 minutes on the date of the service which included preparing to see the patient, [id number] patient care, completing clinical documentation, obtaining and/or reviewing separately obtained history, performing a medically appropriate examination, counseling and educating the pat ient/family/caregiver, and ordering medications, tests, or procedures. Chris Cody MD Rheumatology Date: June 26, 2023 Time: 11:06 AM documented in this encounterOhiohealth Berger Hospital04-04-2024 Miscellaneous Notes* Telephone Encounter - Noelle Mcfadden RN - 06/11/2023 2:47 PM EDT Images from the original note were not included. Most recent Rheumatology visit: 04/03/2023 (with Chris Cody) Rheumatology Care Team: None on file Recent Office Visits - This Specialty 04/03/2023 Chronic gout of multiple sites, unspecified cause Rheumatology Chris Cody MD 01/16/2023 Seronegative rheumatoid arthritis (HCC) Rheumatology Chris Cody MD 11/21/2022 Pain in joint, multiple sites Rheumatology Gerson Mandujano, REWORK OPERATOR.BILL POSTER INSTALLER Upcoming Rheumatology Appointments - Next 365 Days Visit Type Date Time Department [facility] 06/26/2023 10:30 AM [facility] Last Ophthalmology Check for Plaquenil (Hydroxychloroquine) Last OCT Macula Exam No resulted procedures found. Last Visual Field Exam No resulted procedures found. CBC: None on file in the last 6 months Vitamin D: None on file in the last 6 months LFT: None on file in the last 6 months Hepatic Function: Creatinine: None on file in the last 6 months ESR/CRP: None on file in the last 6 months Uric Acid: Latest Ref Rng & Units 01/16/2023 Uric Acid Uric Acid 2.5 - 6.6 mg/dL 8.1 Open Standing (Multiple Instance) Lab Orders Remain Interval Expires Ordered Last Rel. URIC ACID BLOOD [SQURIC] 02/17 Once per month 04/02/24 04/03/23 Auth. provider: Chris Cody MD Assoc. diagnoses: High risk medication use CREATININE BLD [SQCRET] 02/17 Once per month 04/02/24 04/03/23 Auth. provider: Chris Cody MD Assoc. diagnoses: High risk medication use CBC + DIFF [SQCBCDIF] 02/17 Once per month 04/02/24 04/03/23 Auth. provider: Chris Cody MD Assoc. diagnoses: High risk medication use HEPATIC FUNCTION PNL [SQHFP] 02/17 Once per month 04/02/24 04/03/23 Auth. provider: Chris Cody MD Assoc. diagnoses: High risk medication use Open Future (Single Instance) Lab Orders None documented in this encounterOhiohealth Berger Hospital02-05-2024 Miscellaneous Notes* Telephone Encounter - Noelle Mcfadden RN - 04/13/2023 10:43 AM EST Most recent Rheumatology visit: 04/03/2023 (with Chris Cody) Rheumatology Care Team: None on file Recent Office Visits - This Specialty 04/03/2023 Chronic gout of multiple sites, unspecified cause Rheumatology Chris Cody MD 01/16/2023 Seronegative rheumatoid arthritis (HCC) Rheumatology Chris Cody MD 11/21/2022 Pain in joint, multiple sites Rheumatology Gerson Mandujano, REWORK OPERATOR.BILL POSTER INSTALLER Upcoming Rheumatology Appointments - Next 365 Days No appointments to display Last Ophthalmology Check for Plaquenil (Hydroxychloroquine) Last OCT Macula Exam No resulted procedures found. Last Visual Field Exam No resulted procedures found. CBC: CBC Latest Ref Rng & Units 12/19/2011 11/21/2022 WBC 3.70 - 11.00 k/uL 8.07 9.66 HEMOGLOBIN 11.5 - 15.5 g/dL 14.7 13.9 HEMATOCRIT 36.0 - 46.0 % 41.7 42.5 PLATELETS 150 - 400 k/uL 332 252 ABS NEUT (ANC) 1.45 - 7.50 k/uL 4.76 - ABS LYMPH 1.00 - 4.00 k/uL 2.34 - Vitamin D: None on file in the last 6 months LFT: CMP Latest Ref Rng & Units 12/19/2011 11/21/2022 SODIUM 136 - 144 mmol/L - 146(H) SODIUM, ARIELA 132 - 148 mmol/L 142 - SODIUM, ARIELA 132 - 148 mmol/L 142 - POTASSIUM 3.7 - 5.1 mmol/L - 4.8 POTASSIUM, ARIELA 3.5 - 5.0 mmol/L 3.4(L) - CHLORIDE 97 - 105 mmol/L - 108(H) CHLORIDE, ARIELA 98 - 110 mmol/L 99 - CO2 22 - 30 mmol/L - 28 CO2, ARIELA 23.0 - 32.0 mmol/L 33.4(H) - GLUCOSE 74 - 99 mg/dL - 83 GLUCOSE, ARIELA 65 - 100 mg/dL 99 - BUN 7 - 21 mg/dL - 33(H) BUN, ARIELA 10 - 25 mg/dL 18 - CREATININE 0.58 - 0.96 mg/dL - 1.30(H) CREATININE, ARIELA 0.7 - 1.4 mg/dL 1.0 - CALCIUM, ARIELA 8.5 - 10.5 mg/dL 9.3 - CALCIUM, TOTAL 8.5 - 10.2 mg/dL - 9.7 AST 13 - 35 U/L - 29 AST, ARIELA 7 - 40 U/L 31 - ALT 7 - 38 U/L - 26 ALT, ARIELA 0 - 45 U/L 39 - ALKALINE PHOSPHATASE 34 - 123 U/L - 99 Hepatic Function: Creatinine: Creatinine Latest Ref Rng & Units 11/21/2022 CREAT 0.58 - 0.96 mg/dL 1.30(H) ESR/CRP: ESR, WSR Latest Ref Rng & Units 11/21/2022 WSR 0 - 20 mm/hr 5 CRP Latest Ref Rng & Units 11/21/2022 CRP <0.9 mg/dL <0.3 Uric Acid: Uric Acid Latest Ref Rng & Units 01/16/2023 URIC ACID 2.5 - 6.6 mg/dL 8.1(H) Open Standing (Multiple Instance) Lab Orders Remain Interval Expires Ordered Last Rel. URIC ACID BLOOD [SQURIC] 02/17 Once per month 04/02/24 04/03/23 Auth. provider: Chris Cody MD Assoc. diagnoses: High risk medication use CREATININE BLD [SQCRET] 02/17 Once per month 04/02/24 04/03/23 Auth. provider: Chris Cody MD Assoc. diagnoses: High risk medication use CBC + DIFF [SQCBCDIF] 02/17 Once per month 04/02/24 04/03/23 Auth. provider: Chris Cody MD Assoc. diagnoses: High risk medication use HEPATIC FUNCTION PNL [SQHFP] 02/17 Once per month 04/02/24 04/03/23 Auth. provider: Chris Cody MD Assoc. diagnoses: High risk medication use Open Future (Single Instance) Lab Orders None documented in this encounterCleveland [id number] Miscellaneous Notes* Telephone Encounter - Noelle Mcfadden RN - 02/18/2023 10:02 AM EST Most recent Rheumatology visit: 01/16/2023 (with Chris Cody) Recent Office Visits - This Specialty 01/16/2023 Seronegative rheumatoid arthritis (HCC) Rheumatology Chris Cody MD 11/21/2022 Pain in joint, multiple sites Rheumatology Gerson Mandujano, REWORK OPERATOR.BILL POSTER INSTALLER Upcoming Rheumatology Appointments - Next 365 Days Visit Type Date Time Department [facility] 04/03/2023 3:30 PM [facility] MAIN A50 Last Ophthalmology Check for Plaquenil (Hydroxychloroquine) Last OCT Macula Exam No resulted procedures found. Last Visual Field Exam No resulted procedures found. CBC: CBC Latest Ref Rng & Units 12/19/2011 11/21/2022 WBC 3.70 - 11.00 k/uL 8.07 9.66 HEMOGLOBIN 11.5 - 15.5 g/dL 14.7 13.9 HEMATOCRIT 36.0 - 46.0 % 41.7 42.5 PLATELETS 150 - 400 k/uL 332 252 ABS NEUT (ANC) 1.45 - 7.50 k/uL 4.76 - ABS LYMPH 1.00 - 4.00 k/uL 2.34 - Vitamin D: None on file in the last 6 months LFT: CMP Latest Ref Rng & Units 12/19/2011 11/21/2022 SODIUM 136 - 144 mmol/L - 146(H) SODIUM, ARIELA 132 - 148 mmol/L 142 - SODIUM, ARIELA 132 - 148 mmol/L 142 - POTASSIUM 3.7 - 5.1 mmol/L - 4.8 POTASSIUM, ARIELA 3.5 - 5.0 mmol/L 3.4(L) - CHLORIDE 97 - 105 mmol/L - 108(H) CHLORIDE, ARIELA 98 - 110 mmol/L 99 - CO2 22 - 30 mmol/L - 28 CO2, ARIELA 23.0 - 32.0 mmol/L 33.4(H) - GLUCOSE 74 - 99 mg/dL - 83 GLUCOSE, ARIELA 65 - 100 mg/dL 99 - BUN 7 - 21 mg/dL - 33(H) BUN, ARIELA 10 - 25 mg/dL 18 - CREATININE 0.58 - 0.96 mg/dL - 1.30(H) CREATININE, ARIELA 0.7 - 1.4 mg/dL 1.0 - CALCIUM, ARIELA 8.5 - 10.5 mg/dL 9.3 - CALCIUM, TOTAL 8.5 - 10.2 mg/dL - 9.7 AST 13 - 35 U/L - 29 AST, ARIELA 7 - 40 U/L 31 - ALT 7 - 38 U/L - 26 ALT, ARIELA 0 - 45 U/L 39 - ALKALINE PHOSPHATASE 34 - 123 U/L - 99 Hepatic Function: Creatinine: Creatinine Latest Ref Rng & Units 11/21/2022 CREAT 0.58 - 0.96 mg/dL 1.30(H) ESR/CRP: ESR, WSR Latest Ref Rng & Units 11/21/2022 WSR 0 - 20 mm/hr 5 CRP Latest Ref Rng & Units 11/21/2022 CRP <0.9 mg/dL <0.3 Uric Acid: Uric Acid Latest Ref Rng & Units 01/16/2023 URIC ACID 2.5 - 6.6 mg/dL 8.1(H) Open Standing (Multiple Instance) Lab Orders None Open Future (Single Instance) Lab Orders None documented in this encounterOhiohealth Berger Hospital12-12-2023 History of Present illness Narrative* Alina White - 02/17/2023 10:03 AM EST [facility] Refill Assessment Medication(s): Humira CF Patient's current medication list and adherence status to current therapy were reviewed by Specialty Pharmacy clinical pharmacist to identify any new drug interactions or non-compliance to therapy. Therapy continues to be appropriate for disease, patient response, and medical condition. Verification of therapeutic benefit and effectiveness with current therapy was completed. Adverse events, barriers in adherence, and side effects were assessed and addressed if applicable. Will proceed with refill with no changes in therapy - patient progressing towards achieving therapeutic goals based on medication- specific laboratory parameters, disease state markers and outcomes. Radio Dispatcher Assessment Patient confirmed: Yes Med/dose confirmed: Yes Supplies needed: No supplies needed Missed doses: No Estimated days supply on hand: 0 Next cycle/dose due: 02/27/23 Copay amount: 0 Payment confirmed: Yes Delivery method: FedEx Signature required: No Delivery address: [address] [place] [id number] Delivery date: 02/20/23 Questions or concerns for the pharmacist?: No [facility] Assessment - Inflammatory Conditions: Assessment to use: Refill Vaccination Assessment: Date of influenza vaccination reminder: 12/03/2022 Date of most recent vaccination assessment: 12/03/2022 Treatment Plan Information: Treatment Plan Information: Humira Inject 1 pen (40mg) subcutaneously every 2 weeks. Estimated Start Date Info: Established on therapy Estimated Treatment Duration: Until lack of efficacy Alina White ([facility]) [facility] FAX: documented in this encounterOhiohealth Berger Hospital11-14-2023 History of Present illness Narrative* Alina White - 01/20/2023 11:02 AM EST [facility] Refill Assessment Medication(s): Humira Patient's current medication list and adherence status to current therapy were reviewed by Specialty Pharmacy clinical pharmacist to identify any new drug interactions or non-compliance to therapy. Therapy continues to be appropriate for disease, patient response, and medical condition. Verification of therapeutic benefit and effectiveness with current therapy was completed. Adverse events, barriers in adherence, and side effects were assessed and addressed if applicable. Will proceed with refill with no changes in therapy - patient progressing towards achieving therapeutic goals based on medication- specific laboratory parameters, disease state markers and outcomes. Marita Cervantes, PharmD Clinical Pharmacist [facility] Pool: P CC [facility] Pool #: [id number] Radio Dispatcher Assessment Patient confirmed: Yes Med/dose confirmed: Yes Supplies needed: No supplies needed Missed doses: No Estimated days supply on hand: 0 Next cycle/dose due: 01/30/23 Copay amount: 0 Payment confirmed: Yes Delivery method: FedEx Signature required: Waived on patient request Delivery address: [address] [place] [phone] Delivery date: 01/22/23 Questions or concerns for the pharmacist?: No [facility] Visit Assessment - Inflammatory Conditions: Ivent complete: No Assessment to use: Refill Vaccination Assessment: Date of influenza vaccination reminder: 12/03/2022 Date of most recent vaccination assessment: 12/03/2022 Treatment Plan Information: Treatment Plan Information: Humira Inject 1 pen (40mg) subcutaneously every 2 weeks. Estimated Start Date Info: Established on therapy Estimated Treatment Duration: Until lack of efficacy Refill Assessment: Concurrent med therapy and DMARD screening: Yes Assessment of injection issues: Yes Screening for infection: Yes Adverse reactions and mitigation: Yes COPD monitoring (Orencia): N/A Assessment of efficacy: Yes Alina White ([facility]) [facility] FAX: Electronically signed by Marita Cervantes [facility] at 01/20/2023 5:38 PM EST documented in this encounterOhiohealth Berger Hospital11-14-2023 Miscellaneous Notes* Telephone Encounter - Chris Cody MD - 01/20/2023 10:52 AM EST Spoke with patient and discussed recent lab results. Uric acid is elevated at 8.1. CHASIDY is negative, SCL-70 is low positive at 2.2. Based on clinical evaluation, low suspicion for systemic sclerosis though will monitor. GURPREET level is slightly elevated, but CXR without evidence of hilar lympadenopathy, so sarcoidosis less likely. Will plan for DECT of the feet (R>L) to assess for gout. Will also plan to trial low dose colchicine - discussed risks/benefits/side effects. Follow-up already scheduled for 03/2023. Chris Cody MD Department of Immunologic and Rheumatic Diseases documented in this encounterOhiohealth Berger Hospital10-19-2023 History of Present illness Narrative* Maximo Clark - 12/25/2022 10:58 AM EDT [facility] Assessment Medication(s): Humira CF Patient's current medication list and adherence status to current therapy were reviewed by Specialty Pharmacy clinical pharmacist to identify any new drug interactions or non-compliance to therapy. Therapy continues to be appropriate for disease, patient response, and medical condition. Verification of therapeutic benefit and effectiveness with current therapy was completed. Adverse events, barriers in adherence, and side effects were assessed and addressed if applicable. Will proceed with refill with no changes in therapy - patient progressing towards achieving therapeutic goals based on medication- specific laboratory parameters, disease state markers and outcomes. Radio Dispatcher Assessment Patient confirmed: Yes Med/dose confirmed: Yes Supplies needed: No supplies needed Missed doses: No Estimated days supply on hand: 0 Next cycle/dose due: 01/02/23 Copay amount: 0 Payment confirmed: Yes Delivery method: FedEx Signature required: No Delivery address: [address] [place] [id number] Delivery date: 12/31/22 Questions or concerns for the pharmacist?: No [facility] Visit Assessment - Inflammatory Conditions: Assessment to use: Refill Vaccination Assessment: Date of influenza vaccination reminder: 12/03/2022 Date of most recent vaccination assessment: 12/03/2022 Maximo Clark CPhT [facility], Inflammatory P: [phone] F: [phone] documented in this encounterOhiohealth Berger Hospital09-15-2023 History of Present illness Narrative* Audelia Pierre RT(R) - 11/21/2022 2:20 PM EDT Radiology Service Progress Note PATIENT NAME: Savannah Aguirre DATE OF SERVICE: November 21, 2022 TIME: 3:20 PM PATIENT IDENTITY VERIFICATION COMPLETED USING TWO (2) IDENTIFIERS: Name and Date of confirmedby patient verbally. FALL SCREENING: Has the patient had 2 falls in the last year or 1 fall with injury or currently using an Ambulatory Assistive Device (Walker, Cane, Wheelchair, Crutches, etc.)? No PATIENT GENDER DATA: Female. status: : No status: NO. PATIENT RELEVANT IMPLANT DATA REVIEWED: Not Applicable RADIOLOGY DEPARTMENT: General X-ray: Exam(s) Completed: Lower Extremity X- Ray(s): Feet, Bilateral Upper Extremity X-Ray(s): Shoulder, AP / TRUE AP / SUPRA OUTLET bilateral , Wrist, bilateral , and Hand, bilateral PERIPHERAL IV DATA: Not applicable SIGNED BY: RT Senait(R) November 21, 2022 3:20 PM documented in this encounterOhiohealth Berger Hospital09-15-2023 History of Present illness Narrative* Gerson Mandujano, REWORK OPERATOR.BILL POSTER INSTALLER - 11/21/2022 1:10 PM EDT Images from the original note were not included. Rheumatology CONSULTATION Referring Provider: Self Date of Service: 11/21/2022 Gender: female Ethnicity: White Age: [age] year old Chief Complaint: New Last [facility]: [facility] Savannah Aguirre is a 62 year old White female who presents on 11/21/2022 for in person visit for evaluation of New. HISTORY OF PRESENT ILLNESS Patient scheduled to see me today for arthritis. However consult is for RA and patient is seeing new Cable Worker Helper NO OUTSIDE RECORDS ARE WITH PATIENT TODAY INTERVAL HISTORY Was seen by arthritis MD in [place] who no longer takes her insurance. 8-10 years dx'ed with RA but blood test and pain- hips, shoulders, feet. Patient has CRI, she used Methotrexate for one week and stopped. Treatment has included low dose predisone forever. Plaquenil Tried Enbrel about 2 years ago- states not sure if this helped. Stopped the Enbrel as prescriptionran out. Then moved to [facility]. - thinks again on for a few years , she is not quite sure when last injection was, maybe 9-12 months ago. Not sure if the Orenica was helping Current medications: Plaquenil 200 mg BID- goes every 6 months to [facility]. Seen pain management- she is on norco 2-4 pill per day, gabapentin 3 times per day. + chronic back pain, had past spinal cord stimulator that had to be removed body rejected it' No prior surgery on her joints. Joints are not good. Describes dull tenderness- wrists, back, ankles, feet. She is getting swelling of her joints. She has some nodules of wrist and hand. Likes to sew, crafting, not on regular exercise regime, ADL's Has also been diagnosed Fibromyalgia, maybe on antidepressant but made me more depressed. Sleep is poor. Takes naps during the day. 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 Disease History Patient-Entered Data RAPID 3 Melara Activities of Daily Living 11/18/2022 1:01 AM Dress self? With SOME difficulty Get in and out of bed? With SOME difficulty Walk outdoors? With SOME difficulty Wash and dry body? With SOME difficulty Get in and out of car? With SOME difficulty RAPID 3 Disease Activity Weighed Score Levels: 0 - 1: Near Remission 1.3 - 2.0: Low Severity 2.3 - 4.0: Moderate Severity 4.3 - 10.0: High Severity RAPID-3 Weighed Score 11/18/2022 RAPID 3 Weighed Score 5.39 (High Severity (HS)) PROMIS Assessments PROMIS Global Health - (T-Scores - the mean of general population = 50. Five points is a clinicallymeaningful difference.) 11/18/2022 Physical T-Score 34.9 Mental T-Score 38.8 PROMIS CAT Pain Interference 11/18/2022 PROMIS Pain Interference T-Score (range: 10 - 90) 67 (moderate) PROMIS Pain Interference Percentile 4 % PROMIS CAT Fatigue 11/18/2022 PROMIS Fatigue T-Score 64 (moderate) PROMIS Fatigue Percentile 8 % PROMIS PHYSICAL FUNCTION T-SCORE 11/18/2022 PROMIS Physical Function T-Score 29 (severe dysfunction) Physical Function Percentile 2 % PAIN EVALUATION 11/18/2022 0046 Duration Units: Months Frequency: Continuous Intervention/Comfort measure: Medication;Reposition;Relaxation Treatment History Last Ophthalmology Check for Plaquenil (Hydroxychloroquine) Last OCT Macula Exam No resulted procedures found. Last Visual Field Exam No resulted procedures found. Relevant Previous Investigations CBC Latest Ref Rng & Units 12/19/2011 WBC 3.70 - 11.00 k/uL 8.07 HEMOGLOBIN 11.5 - 15.5 g/dL 14.7 HEMATOCRIT 36.0 - 46.0 % 41.7 PLATELETS 150 - 400 k/uL 332 ABS NEUT (ANC) 1.45 - 7.50 k/uL 4.76 ABS LYMPH 1.00 - 4.00 k/uL 2.34 CMP Latest Ref Rng & Units 12/19/2011 SODIUM, ARIELA 132 - 148 mmol/L 142 SODIUM, ARIELA 132 - 148 mmol/L 142 POTASSIUM, ARIELA 3.5 - 5.0 mmol/L 3.4(L) CHLORIDE, ARIELA 98 - 110 mmol/L 99 CO2, ARIELA 23.0 - 32.0 mmol/L 33.4(H) GLUCOSE, ARIELA 65 - 100 mg/dL 99 BUN, ARIELA 10 - 25 mg/dL 18 CREATININE, RAIELA 0.7 - 1.4 mg/dL 1.0 CALCIUM, ARIELA 8.5 - 10.5 mg/dL 9.3 AST, ARIELA 7 - 40 U/L 31 ALT, ARIELA 0 - 45 U/L 39 Imaging / Studies Last XR Hand/Finger - Impression Only No resulted procedures found. Last MRI Hand - Impression Only No resulted procedures found. Last XR Chest - Impression Only No resulted procedures found. Last XR Cervical Spine - Impression Only No resulted procedures found. Review of Systems Review of Systems CONSTITUTION: Negative for: Fever and Recent weight change HEENT: Positive for: Dry mouth Negative for: Nosebleeds and Trouble swallowing RESPIRATORY: Negative for: Cough, Shortness of breath and Pain with breathing GASTROINTESTINAL: Negative for: Melena, Diarrhea, Heartburn and Abdominal pain MUSCULOSKELETAL: Positive for: Arthralgias, Myalgias, Muscle weakness, Joint swelling and Morning Joint Stiffness NEUROLOGICAL: Positive for: Headaches, Numbness and Memory loss SKIN: Positive for: Hair loss and Nail changes Negative for: Rash and Skin changes EYES: Negative for: Eye pain, Eye redness, Eye dryness and visual disturbance CARDIOVASCULAR: Positive for: Leg swelling Negative for: Chest pain GENITOURINARY: Negative for: Dysuria and Hematuria HEMATOLOGIC/LYMPHATIC: Negative for: Swollen glands All other reviewed and negative other than HPI. Problem List ACTIVE PROBLEM LIST Nausea Essential Hypertension Hypothyroidism Gastroesophageal Reflux Disease Fibromyalgia Osteoarthritis Past Medical History PAST MEDICAL HISTORY Diagnosis Date Allergic rhinitis Alopecia Chronic kidney disease Fatigue Fibromyalgia GERD (gastroesophageal reflux disease) Hypertension Hypokalemia Hypothyroid Inflammatory polyarthropathies (HCC) Insomnia Multilevel degenerative disc disease Nausea Pancreatitis Tremor Past Surgical History PAST SURGICAL HISTORY Procedure Laterality Date CARPAL TUNNEL Both CHOLECYSTECTOMY HX ESOPHAGOGASTRODUODENOSCOPY TRANSORAL DIAGNOSTIC 05/16/15 EGD ([facility]) HYSTERECTOMY HX 2007 THYROIDECTOMY TOTAL/COMPLETE Right TONSILLECTOMY AND ADENOIDECTOMY HX Family History FAMILY HISTORY Problem Relation Age of Onset other (lymphoma [Other]) Father Hypertension Mother Hypertension Father Social History Social History Tobacco Use Smoking status: Never Smokeless tobacco: Never Substance Use Topics Alcohol use: No Drug use: No Medications Current Outpatient Medications Medication Sig Omeprazole 40 mg capsule Take 40 mg by mouth twice daily. hyoscyamine (LEVSIN) 0.125 mg tablet Take 1 tablet by mouth three times daily before meals. ondansetron (ZOFRAN) 8 mg tablet Take 1 tablet by mouth as needed. levothyroxine (SYNTHROID) 100 mcg tablet Take 100 mcg by mouth once daily. hydroxychloroquine (PLAQUENIL) 200 mg tablet Take by mouth twice daily. metoprolol tartrate, short acting, (LOPRESSOR) 25 mg tablet Take 25 mg by mouth once daily. Milnacipran (SAVELLA) 12.5 mg tab Take 12.5 mg by mouth twice daily. triamterene-hydrochlorothiazide 37.5-25 mg per capsule Take 1 capsule by mouth once daily. potassium chloride (K-SUNG, KLOR-CON) 20 mEq packet Take 20 mEq by mouth three times daily. magnesium oxide 400 mg cap Take 400 mg by mouth twice daily. gabapentin (NEURONTIN) 300 mg capsule Take 300 mg by mouth once daily. HYDROcodone-acetaminophen (NORCO) 5-325 mg per tablet Take 1 tablet by mouth twice daily. buprenorphine 15 mcg/hour ptwk Apply as directed. No current facility-administered medications for this visit. Physical Exam BP 141/63 Pulse 51 Ht 5' 3 (1.60m) Wt 194 lb (88.0kg) BMI 34.37 kg/(m^2). Physical Exam Vitals and nursing note reviewed. Constitutional: Appearance: Normal appearance. Cardiovascular: Rate and Rhythm: Normal rate. Heart sounds: No murmur heard. Pulmonary: Effort: Pulmonary effort is normal. No respiratory distress. Musculoskeletal: General: Swelling and tenderness present. Right lower leg: Edema present. Left lower leg: Edema present. Skin: General: Skin is warm. Findings: No rash. Neurological: General: No focal deficit present. Mental Status: She is alert. Mental status is at baseline. Motor: No weakness. Gait: Gait normal. Psychiatric: Mood and Affect: Mood normal. Joint Exam 11/21/2022 Right Left Glenohumeral Tender Tender Wrist Swollen Tender Swollen Tender MCP 2 Swollen Tender Swollen Tender MCP 3 Swollen Tender Swollen Tender MCP 4 Swollen Tender Swollen Tender MCP 5 Swollen Tender Swollen Tender Ankle Swollen Swollen The following joints were examined and normal: Left Elbow, Right Elbow, Left MCP 1, Right MCP 1, Left IP, Right IP, Left PIP 2, Right PIP 2, Left PIP 3, Right PIP 3, Left PIP 4, Right PIP 4, Left PIP 5, Right PIP 5, Left Knee, Right Knee Impression Diagnoses: (M25.50) Pain in joint, multiple sites (primary encounter diagnosis) mod- severe active RA Plan (M25.50) Pain in joint, multiple sites (primary encounter diagnosis) Comment: Patient with presumed 10 year hx of RA Intolerant to MTX, limited benefit with enbrel and orencia, off treatment for close to a year now She remains only on plaquenil she had diffuse pain and swelling of her joints She would like to resume biologics We discussed humira, she is agreeable Will check labs today She would like to avoid further steroids Complicated by FMS and DDD of spine chronic pain meds with pain management locally she will need to est. a Cable Worker Helper to collaborate care with, we will help arrange. Plan: SED RATE WESTERGREN, C-REACTIVE PROTEIN (CRP), CBC, COMP METABOLIC PANEL, BLOOD TB SCREEN, HEP REMOTE PANEL BL, RHEUMATOID FACTOR BL, CCP ANTIBODY IGG, XR HAND GENERAL 3V PA/LAT/OBL BILATERAL, XR WRIST GENERAL 3V PA/LAT/OBL BILATERAL, XR FOOT GENERAL 3V AP/LAT/OBL BILATERAL, XR SHOULDER GENERAL 3V OR MORE AP/TRUE AP/OTHER LEFT, XR SHOULDER GENERAL 3V OR MORE AP/TRUE AP/OTHER RIGHT Return in about 6 weeks (around 01/02/2023) for [facility] Rheum MD eric , then 4-5 months [place] . Consultation requested by Dr. Marcelo for an opinion regarding RA and my final recommendations will becommunicated back to the requesting physician by way of shared medical record or letter by US mail. I spent a total of 50 minutes on the date of the service which included preparing to see the patient, [id number] patient care, completing clinical documentation, obtaining and/or reviewing separately obtained history, performing a medically appropriate examination, and counseling and educating the patient/family/caregiver. Gerson Mandujano APRN.CNP cc: PCP: To use this Smartlink, specify the provider ID whose address you want to display, e.g., .PROVADDR[1 (where 1 is the provider ID). documented in this encounterTammie [place]ille [address]-07-2023 Procedure [facility]09-07-2023 Procedure [facility]03-29-[address] Strickland [facility] June 04, 2022 3:57pm Note Date/Time June 04, 2022 3:5 7pm [facility] Medical Records Department [address] [place] [address] Discharge Summary 06/04/22 1552 MR#: [id number] Acct: [id number] Name: SAVANNAH AGUIRRE Rep #:[id number] : 1960 61 From: Maria E Strickland MD PCP: Dr. Shahab Adams, DO Status:ADM IN Location: [facility] [id number] Providers Date of Admission: 06/01/22 Date of Discharge: 06/04/22 Primary Care Physician: Dr. Shahab Adams, DO Consultations 06/01/22 18:08 Consult: Pain Management Routine Consulting Provider: Josafat Villalobos Reason for Consult: spinal stim concern for infection EMERGENT Consult: No Notified: Yes Date Notified: 06/01/22 Time Notified: 18:10 Method of Notification: ED Physician Initiated 06/02/22 09:02 Consult: Infectious Disease Routine Consulting Provider: Bethel Benitez Reason for Consult: Concern 4 spinal stim infxn.If poss Dr. 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 #Chronic lumbar back pain #CKD stage IIIb #Bilateral lower extremity swelling/heart failure with preserved ejection fraction #Rheumatoid arthritis #Hypothyroidism Medications at Discharge Home Medications buprenorphine 20 mcg/hour weekly transdermal patch (Butrans) 1 patch transdermalQWEEK PAIN 01/13/21 hydrocodone-acetaminophen 5-325mg 5mg-325mg 1 tab PO Q6H PRN Pain 01/13/21 hydroxychloroquine 200 mg tablet 200 mg PO DAILY 01/13/21 levothyroxine 88 mcg tablet (Synthroid) 88 mcg PO DAILY 01/13/21 omeprazole 40 mg capsule,delayed release 40 mg PO DAILY 01/13/21 potassium chloride 20 mEq tablet,extended release(part/cryst) 20 meq PO TID SUPPLEMENT 01/13/21 triamterene 37.5 mg-hydrochlorothiazide 25 mg capsule 1 cap PO DAILY Check with primary doctor 01/13/21 gabapentin 400 mg capsule 400 mg PO TID PAIN 05/08/21 cholecalciferol (vitamin D3) 125 mcg (5,000 unit) capsule 125 mcg PO DAILY SUPPLEMENT 06/01/22 magnesium 250 mg tablet 250 mg PO DINNER SUPPLEMENT 06/01/22 amoxicillin 875 mg-potassium clavulanate 125 mg tablet 1 tab PO Q12H #20 tabs 06/04/22 ciprofloxacin HCl 500 mg tablet (Cipro) 750 mg PO Q12H 10 days #30 tabs 06/04/22 metoprolol succinate 50 mg tablet,extended release 24 hr 50 mg PO DAILY 30 days #30 tabs 06/04/22 Hospital Course Operations - (Removal of spinal cord stimulator leads, removal spinal cord stimulator generator at the right gluteal region, I&D of spinal cord stimulator right gluteal region horizontal incision) Procedures Transthoracic echo and - Summary of Care Provided Minutes Spent on Discharge: 35 Hospital Course: SAVANNAH AGUIRRE, is a 61 F with a history of chronic pain with spinal stimulator implant in March and subsequent infection in early May with washout and positive pseudomonal cultures who presented to [facility] 06/01/2022 with increasing pain around incision site. Her pain management physician Dr. Villalobos contacted the emergency department recommended admission and antibiotics in preparation for possible removal. Peripheral cultures obtained and spoke with Dr. Villalobos recommend infectious disease consult. ID also recommended device removal and broad-spectrum antibiotics with Cipro and Zosyn. She went to the OR 06/02 for Removal of spinal cord stimulator leads, removal spinal cord stimulator generator at the right gluteal region, I&D of spinal cord stimulator right gluteal region horizontal incision with successful removal and intraoperative cultures. Preliminary cultures no growth and infectious disease cleared for discharge home with 10 days of Augmentin and Cipro. She had peripheral edema and further work-up during her admission revealed she had CKD stage III as well as heart failure with preserved ejection fraction with an EF of 65% but stage II diastolic dysfunction. Urine checked and no protein present. Blood pressure fairly well controlled during her admission. On day of discharge reports still feeling generally achy with no increased pain. Would like to go home. Discharge instructions as followed: -Please follow-up with Dr. Villalobos upon discharge, if you do not already have anappointment scheduled please call to schedule a follow-up appointment -You will be discharged on 10 days of antibiotics, amoxicillin clavulanate and ciprofloxacin.? Please take these as prescribed. -Due to somewhat low heart rate your metoprolol was decreased to 50 mg daily -You are found to have somewhat decreased kidney function that was stable throughout your admission however would recommend discussing possible nephrologyevaluation as an outpatient with your primary care physician -You were also found to have what is called diastolic dysfunction meaning that your heart does not relax as well as it should which may have contributed to some of your swelling, please discuss with your primary care physician as they may need to further adjust your medications. -Would also suggest sleep study as an outpatient as you indicated morning headaches if you are not sitting up when you are resting -Please call your primary care provider's office upon discharge to schedule a hospital follow up within 1 week. -For any concerning signs or symptoms please call 911 or proceed to the nearest emergency department Physical Exam Narrative General: Alert, oriented, no apparent distress HEENT: Atraumatic, normocephalic Eyes: Anicteric, normal conjunctiva, extraocular movements grossly intact Neck: Supple Respiratory: Clear to auscultation bilaterally, normal respiratory effort Cardiovascular: Regular rate and rhythm GI: Soft, nontender, nondistended Extremities: 1+ edema bilaterally Musculoskeletal: Moving all extremities Neuro: No overt focal neurological deficits Skin: No rashes or bleeding Psych: Cooperative Weight / BMI Weight Weight: 92.9 kg Body Mass Index (BMI) 34.0 ABG / Lab / Microbiology Data Result Diagrams: 06/04/22 06:30 06/04/22 06:30 Laboratory: Laboratory Results - last 24 hr 06/04/22 06:30: WBC 8.2, RBC 3.90 L, Hgb 10.7 L, Hct 33.8 L, MCV 86.7, MCH 27.4,MCHC 31.7 L, RDW Std Deviation 39.1, RDW Coeff of Hiro 12.2, Plt Count 245, MPV 9.5, Immature Gran % (Auto) 0.200, Neut % (Auto) 65.8, Lymph % (Auto) 12.5 L, Socorro % (Auto) 13.4 H, Eos % (Auto) 7.7 H, Baso % (Auto) 0.4, Absolute Neuts (auto) 5.4, Absolute Lymphs (auto) 1.02, Nucleated RBC % 0 06/04/22 06:30: Sodium 140, Potassium 3.2 L, Chloride 107, Carbon Dioxide 27.0, Anion Gap 6, BUN 17, Creatinine 1.30 H, Estim Creat Clear Calc 39.86, Est GFR (MDRD) Af Amer 53 L, Est GFR (MDRD) Non-Af 44 L, BUN/Creatinine Ratio 13.1, Glucose 103, Calcium 9.3, C-React Prot Ext Range 34.30 H Microbiology: Microbiology 06/01/22 16:20 Blood Culture (Wb) - Anticubital Right Blood Culture - Preliminary No growth in 48 hours. 06/01/22 16:20 Blood Culture (Wb) - Anticubital Left Blood Culture - Preliminary No growth in 48 hours. 06/02/22 18:30 Implant - Other Gram Stain - Final 06/02/22 18:30 Implant - Other Wound Culture - Final No growth aerobically. 06/02/22 18:30 Tissue - Back Gram Stain - Final 06/02/22 18:30 Tissue - Back Tissue Culture - Preliminary No growth-Final to follow Radiography Diagnostic Testing: Radiology Impression Echocardiogram 06/01/22 17:35 Interpretation Summary Normal LV size. Left ventricular systolic function is normal. The estimated ejection fraction is 65 %. Stage 2 diastolic dysfunction. Pulmonary artery systolic pressure is 28 mmHg. Ordering Physician: Maria E Strickland Referring Physician: Shahab Adams Performed By: Lynne Montoya, LUCIO, RVT D/C Instructions Discharge Diet: - (DASH diet) Meaningful Use Info Meaningful Use Diagnoses (Choose all that apply): None applicable Discharge Plan Admission Admit Date/Time: 06/01/22 17:15 Primary Reason for Your Visit: Concern for implant infection Attending Provider: Maria E Strickland Primary Care Provider: Shahab Adams Consulting Providers: Josafat Villalobos ; Bethel Benitez Instructions Patient Instructions: ED Chronic Pain Additional Instructions / Restrictions: DISCHARGE INSTRUCTIONS PLEASE READ *Please take this with you to your next doctors appointment* -Please follow-up with Dr. Villalobos upon discharge, if you do not already have anappointment scheduled please call to schedule a follow-up appointment -You will be discharged on 10 days of antibiotics, amoxicillin clavulanate and ciprofloxacin. Please take these as prescribed. -Due to somewhat low heart rate your metoprolol was decreased to 50 mg daily -You are found to have somewhat decreased kidney function that was stable throughout your admission however would recommend discussing possible nephrologyevaluation as an outpatient with your primary care physician -You were also found to have what is called diastolic dysfunction meaning that your heart does not relax as well as it should which may have contributed to some of your swelling, please discuss with your primary care physician as they may need to further adjust your medications. -Would also suggest sleep study as an outpatient as you indicated morning headaches if you are not sitting up when you are resting -Please call your primary care provider's office upon discharge to schedule a hospital follow up within 1 week. -For any concerning signs or symptoms please call 911 or proceed to the nearest emergency department Discharge Orders/Prescriptions Prescriptions: New ciprofloxacin HCl [Cipro] 500 mg tablet 750 mg PO Q12H 10 Days Qty: 30 0RF amoxicillin-pot clavulanate 875-125 mg tablet 1 tab PO Q12H Qty: 20 0RF metoprolol succinate 50 mg Tablet Extended Release 24 Hr 50 mg PO DAILY 30 Days Qty: 30 0RF Continued gabapentin 400 mg capsule 400 mg PO TID Label Comments: take 1 capsule by mouth three times a day hydrocodone-acetaminophen 5-325 mg Tablet 1 tab PO Q6H PRN (Reason: Pain) omeprazole 40 mg Capsule,Delayed Release(Dr/Ec) 40 mg PO DAILY triamterene-hydrochlorothiazid 37.5-25 mg Capsule 1 cap PO DAILY levothyroxine [Synthroid] 88 mcg Tablet 88 mcg PO DAILY potassium chloride 20 mEq tablet,ER particles/crystals 20 meq PO TID Label Comments: take 3 capsules by mouth once daily hydroxychloroquine 200 mg Tablet 200 mg PO DAILY buprenorphine [Butrans] 20 mcg/hour Patch Weekly 1 patch TRANSDERMAL QWEEK Rx Instructions: on wednesdays magnesium 250 mg Tablet 250 mg PO DINNER cholecalciferol (vitamin D3) 125 mcg (5,000 unit) Capsule 125 mcg PO DAILY Discontinued metoprolol succinate 100 mg tablet extended release 24 hr 100 mg PO DINNER Label Comments: take 1 tablet by mouth once daily Referrals / Follow Up: Josafat Villalobos MD [Med Staff - Active Staff] - See Referral Note (Please call upon discharge to schedule your hospital follow-up appointment) Shahab Adams DO [Primary Care Provider] - Within 1 Week Disposition Disposition (needs filled in before D/C Order can be placed): Home, Self Care Charges/Coding Visit Charges Inpatient E&M: 85735 Disch Hosp >30min 06/04/22 1557 <Electronically signed by Maria E Strickland MD> Cosigner Signature (if applicable): CC: Dr. Josafat Villalobos MD; Dr. Shahab Adams DO; Dr. Maria E Strickland MD; Dr. Bethel Benitez MD~ Signed [facility] Work Phone: 1(968) 223-170203-29-[address] Strickland [facility] June 04, 2022 3:52pm Note Date/Time June 04, 2022 3:5 2pm [facility] Medical Records Department [address] [place] [address] Instructions for Home/Discharge Instructions 06/04/22 1551 MR#: [id number] Acct: [id number] Name: SAVANNAH AGUIRRE Rep #:[id number] : 1960 61 From: Maria E Strickland MD PCP: Dr. Shahab Adams DO Status:ADM IN Discharge Instructions Diet Discharge Diet: - (DASH diet) Activity Discharge Activity: - (Advance activity as tolerated) Follow Up Care Test Results: Test results from this visit will be discussed in further detail at your follow- up appointment, if applicable. Discharge Plan Admission Admit Date/Time: 06/01/22 17:15 Primary Reason for Your Visit: Concern for implant infection Attending Provider: Maria E tSrickland Primary Care Provider: Shahab Adams Consulting Providers: Josafat Villalobos ; Bethel Benitez Instructions Patient Instructions: ED Chronic Pain Additional Instructions / Restrictions: DISCHARGE INSTRUCTIONS PLEASE READ *Please take this with you to your next doctors appointment* -Please follow-up with Dr. Villalobos upon discharge, if you do not already have anappointment scheduled please call to schedule a follow-up appointment -You will be discharged on 10 days of antibiotics, amoxicillin clavulanate and ciprofloxacin. Please take these as prescribed. -Due to somewhat low heart rate your metoprolol was decreased to 50 mg daily -You are found to have somewhat decreased kidney function that was stable throughout your admission however would recommend discussing possible nephrologyevaluation as an outpatient with your primary care physician -You were also found to have what is called diastolic dysfunction meaning that your heart does not relax as well as it should which may have contributed to some of your swelling, please discuss with your primary care physician as they may need to further adjust your medications. -Would also suggest sleep study as an outpatient as you indicated morning headaches if you are not sitting up when you are resting -Please call your primary care provider's office upon discharge to schedule a hospital follow up within 1 week. -For any concerning signs or symptoms please call 911 or proceed to the nearest emergency department Discharge Orders/Prescriptions Prescriptions: New ciprofloxacin HCl [Cipro] 500 mg tablet 750 mg PO Q12H 10 Days Qty: 30 0RF amoxicillin-pot clavulanate 875-125 mg tablet 1 tab PO Q12H Qty: 20 0RF metoprolol succinate 50 mg Tablet Extended Release 24 Hr 50 mg PO DAILY 30 Days Qty: 30 0RF Continued gabapentin 400 mg capsule 400 mg PO TID Label Comments: take 1 capsule by mouth three times a day hydrocodone-acetaminophen 5-325 mg Tablet 1 tab PO Q6H PRN (Reason: Pain) omeprazole 40 mg Capsule,Delayed Release(Dr/Ec) 40 mg PO DAILY triamterene-hydrochlorothiazid 37.5-25 mg Capsule 1 cap PO DAILY levothyroxine [Synthroid] 88 mcg Tablet 88 mcg PO DAILY potassium chloride 20 mEq tablet,ER particles/crystals 20 meq PO TID Label Comments: take 3 capsules by mouth once daily hydroxychloroquine 200 mg Tablet 200 mg PO DAILY buprenorphine [Butrans] 20 mcg/hour Patch Weekly 1 patch TRANSDERMAL QWEEK Rx Instructions: on wednesdays magnesium 250 mg Tablet 250 mg PO DINNER cholecalciferol (vitamin D3) 125 mcg (5,000 unit) Capsule 125 mcg PO DAILY Discontinued metoprolol succinate 100 mg tablet extended release 24 hr 100 mg PO DINNER Label Comments: take 1 tablet by mouth once daily Referrals / Follow Up: Josafat Villalobos MD [Med Staff - Active Staff] - See Referral Note (Please call upon discharge to schedule your hospital follow-up appointment) Shahab Adams DO [Primary Care Provider] - Within 1 Week Disposition Disposition (needs filled in before D/C Order can be placed): Home, Self Care 06/04/22 1552<Electronically signed by Maria E Strickland MD>Maria E Strickland MD CC: Dr. Josafat Villalobos MD; Dr. Shahab Adams DO; Dr. Bethel Benitez MD ~ Signed [facility] Work Phone: 1(184) 699-110403-29-[address] Benitez [facility] June 04, 2022 1:38pm Note Date/Time June 04, 2022 1:3 8pm [facility] Medical Records Department [address] [place] [address] Progress Note - Infect Disease 06/04/22 1338 MR#: [id number] Acct: [id number] Name: SAVANNAH AGUIRRE Rep #:[id number] : 1960 61 From: Bethel ochoa MD PCP: Dr. Shahab Adams DO Status:ADM IN Location: [facility] [id number] Physical Exam Narrative Feeling better, pain improved in back, no fever Const alert and no apparent distress General Appearance: cooperative Resp normal air movement and clear to auscultation bilaterally Cardio regular rate and regular rhythm GI soft to palpation, non-tender and non-distended Skin no rashes or lesions noted ID ID: Route of nutrition/ use of supplements: [] Nutritional Intake: [] IV Site: [] Pollard Catheter: [] Assessment & Plan Assessment/Plan (1) Infection of spinal cord stimulator: PLAN: Culture earlier this month with pseudomonas. On zosyn/cipro here. Taken for device removal and I&D 06/02/[address] Villalobos. Surg cx neg so far. Ok for home, wrote for 10 days cipro/augmentin, will follow final cx results. Will follow 06/04/22 1338 <Electronically signed by Bethel Benitez MD> Cosigner Signature (if applicable): CC: ~ Signed [facility] Work Phone: [phone]) 485-885803-29-[address] Strickland [facility] June 04, 2022 9:22am Note Date/Time June 04, 2022 9:1 1am [facility] Medical Records Department [address] [place] [address] Progress Note - Hospitalist 06/04/22907 MR#: [id number] Acct: [id number] Name: SAVANNAH AGUIRRE Rep #:[id number] : 1960 61 From: Maria E Strickland MD PCP: Dr. Shahab Adams, DO Status:ADM IN Location: [place] [address] Reason for Visit Reason for Visit: Diagnoses Infection and inflammatory reaction due to implanted electronic neurostimulator of spinal cord, electrode (lead), initial encounter (06/01/22) Subjective Subjective Feeling roughly the same today, no increase in pain. Objective Data Objective Data Vital Signs: Vital Signs Temp Pulse Resp BP Pulse Ox O2 Del Method O2 Flow Rate 98.7 F 66 18 122/71 H 94 Room Air 2 06/04/22 08:50 06/04/22 08:53 06/04/22 08:50 06/04/22 08:50 06/04/22 08:50 06/04/22 08:50 06/03/22 05:40 Oxygen Flow Rate (L/min) 2 Oxygen Delivery Method Room Air Weight: 92.9 kg Body Mass Index (BMI) 34.0 Intake & Output: Intake and Output for Last 24 Hours 06/02/22 06/03/22 06/04/22 23:59 23:59 23:59 Intake Total 2076.67 / 2076.67 2352.75 / 2352.75 50 / 50 Output Total 700 / 700 1200 / 1600 400 / 400 Balance 1376.67 / 1376.67 1152.75 / 752.75 -350 / -350 Lab / Micro Data Result Diagrams: 06/04/22 06:30 06/04/22 06:30 Labs: Laboratory Results - last 24 hr 06/04/22 06:30: WBC 8.2, RBC 3.90 L, Hgb 10.7 L, Hct 33.8 L, MCV 86.7, MCH 27.4,MCHC 31.7 L, RDW Std Deviation 39.1, RDW Coeff of Hiro 12.2, Plt Count 245, MPV 9.5, Immature Gran % (Auto) 0.200, Neut % (Auto) 65.8, Lymph % (Auto) 12.5 L, Socorro % (Auto) 13.4 H, Eos % (Auto) 7.7 H, Baso % (Auto) 0.4, Absolute Neuts (auto) 5.4, Absolute Lymphs (auto) 1.02, Nucleated RBC % 0 06/04/22 06:30: Sodium 140, Potassium 3.2 L, Chloride 107, Carbon Dioxide 27.0, Anion Gap 6, BUN 17, Creatinine 1.30 H, Estim Creat Clear Calc 39.86, Est GFR (MDRD) Af Amer 53 L, Est GFR (MDRD) Non-Af 44 L, BUN/Creatinine Ratio 13.1, Glucose 103, Calcium 9.3, C-React Prot Ext Range 34.30 H Micro: Microbiology 06/02/22 18:30 Implant - Other Gram Stain - Final 06/02/22 18:30 Implant - Other Wound Culture - Final No growth aerobically. 06/02/22 18:30 Tissue - Back Gram Stain - Final 06/02/22 18:30 Tissue - Back Tissue Culture - Preliminary No growth-Final to follow Radiography Diagnostic Testing: Radiology Impression Echocardiogram 06/01/22 17:35 Interpretation Summary Normal LV size. Left ventricular systolic function is normal. The estimated ejection fraction is 65 %. Stage 2 diastolic dysfunction. Pulmonary artery systolic pressure is 28 mmHg. Ordering Physician: Maria E Strickland Referring Physician: Shahab Adams Performed By: Lynne Montoya RDCS, RVT Physical Exam Narrative General: Alert, oriented, no apparent distress HEENT: Atraumatic, normocephalic Eyes: Anicteric, normal conjunctiva, extraocular movements grossly intact Neck: Supple Respiratory: Clear to auscultation bilaterally, normal respiratory effort Cardiovascular: Regular rate and rhythm GI: Soft, nontender, nondistended Extremities: 1+ edema bilaterally Musculoskeletal: Moving all extremities Neuro: No overt focal neurological deficits Skin: No rashes or bleeding Psych: Cooperative Assessment & Plan Assessment/Plan (1) Infection of spinal cord stimulator: PLAN: Plan 5#Lumbar pain, 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 Hopson, n.p.o. at midnight -06/02: discussed w/ Dr. Villalobos-advised infectious disease consult to assess possibility of IV antibiotics and not having to remove versus strong recommendation to remove. Consult placed, cultures pending, on broad-spectrum antibiotics. Patient to remain n.p.o. in the event she is able to be taken to the OR. -06/03: Status post removal 06/02. On Zosyn and Cipro. Cultures pending. We will follow pattern layout worker and hope to DC in next 1 to 2 days pending results -06/04: Awaiting cultures. We will plan to DC once cleared to do so by infectious disease. Continue on Zosyn and Cipro #Chronic lumbar back pain -Gabapentin, Leroy as needed #CKD stage IIIb -Slight increase in creatinine though appears close to baseline -We will give some gentle hydration, no respiratory distress -06/03: Has some peripheral edema but no protein in UA, echo pending -06/04: Slightly improved today #Bilateral lower extremity swelling/heart failure with preserved ejection fraction -We will obtain echocardiogram -No respiratory distress -06/04: Echocardiogram with EF of 65%, pulmonary artery systolic pressure 28 and stage II diastolic dysfunction. We will recommend outpatient sleep study and further work-up and given edema will give a dose of Lasix and assess for improvement #Rheumatoid arthritis -held hydroxychloroquine after discussing with Dr. Villalobos #Hypothyroidism -Continue Synthroid -TSH wnl #DVT ppx: SCDs Maria E Strickland MD Time spent in the patient's overall evaluation,decision-making process, review of diagnostic data, adjustment of management, discussion with other providers, nursing nursing and ancillary staff involved in patient's care documentation, 30minutes Charges/Coding Visit Charges Inpatient E&M: 29161 Subs Hosp L2 06/04/22 0922 <Electronically signed by Maria E Strickland MD> Cosigner Signature (if applicable): CC: ~ Signed [facility] Work Phone: 1(848) 302-324803-28-[address] Strickland [facility] June 03, 2022 3:34pm Note Date/Time June 03, 2022 1:0 4pm [facility] Medical Records Department [address] [place] [id number] Progress Note - Hospitalist 06/03/22 1304 MR#: [id number] Acct: [id number] Name: SAVANNAH AGUIRRE Rep #:[id number] : 1960 61 From: Maria E Strickland MD PCP: Dr. Shahab Adams, DO Status:ADM IN [id number] Reason for Visit Reason for Visit: Diagnoses Infection and inflammatory reaction due to implanted electronic neurostimulator of spinal cord, electrode (lead), initial encounter (06/01/22) Subjective Subjective Feeling roughly the same, no significant change in pain level, still aches all over, still does have some swelling Objective Data Objective Data Vital Signs: Vital Signs Temp Pulse Resp BP Pulse Ox O2 Del Method O2 Flow Rate 98.9 F 54 L 16 107/48 L 98 Room Air 2 06/03/22 11:14 06/03/22 11:14 06/03/22 11:14 06/03/22 11:14 06/03/22 11:14 06/03/22 12:30 06/03/22 05:40 Oxygen Flow Rate (L/min) 2 Oxygen Delivery Method Room Air Weight: 92.9 kg Body Mass Index (BMI) 34.0 Intake & Output: Intake and Output for Last 24 Hours 06/01/22 06/02/22 06/03/22 23:59 23:59 23:59 Intake Total 250 / 690 2076.67 / 2076.67 1652.75 / 1652.75 Output Total 700 / 700 600 / 600 Balance 250 / 690 1376.67 / 1376.67 1052.75 / 1052.75 Lab / Micro Data Result Diagrams: 06/03/22 06:49 06/03/22 06:49 Labs: Laboratory Results - last 24 hr 06/02/22 19:25: Urine Color Yellow, Urine Clarity Clear, Urine pH 5.0, Ur Specific [place] 1.015, Urine Protein Negative, Urine Glucose (UA) Normal, UrineKetones Negative, Urine Occult Blood Negative, Urine Nitrite Negative, Urine Bilirubin Negative, Urine Urobilinogen Normal, Ur Leukocyte Esterase 500 H, Urine RBC 0 SEEN, Urine WBC 10-25 SEEN, Ur Squamous Epith Cells 0-5 SEEN, Ur Transition Epith Cell 0-5 SEEN, Urine Bacteria 0 SEEN, Urine Mucus 0 SEEN 06/03/22 06:49: WBC 8.2, RBC 4.11 L, Hgb 11.4 L, Hct 36.8 L, MCV 89.5, MCH 27.7,MCHC 31.0 L, RDW Std Deviation 40.4, RDW Coeff of Hiro 12.4, Plt Count 268, MPV 10.2, Immature Gran % (Auto) 0.400, Neut % (Auto) 66.8, Lymph % (Auto) 13.0 L, [place] % (Auto) 13.2 H, Eos % (Auto) 6.1 H, Baso % (Auto) 0.5, Absolute Neuts (auto) 5.5, Absolute Lymphs (auto) 1.06, Nucleated RBC % 0 06/03/22 06:49: Sodium 140, Potassium 3.7, Chloride 109 H, Carbon Dioxide 26.0, Anion Gap 5, BUN 20 H, Creatinine 1.41 H, Estim Creat Clear Calc 36.75, Est GFR (MDRD) Af Amer 48 L, Est GFR (MDRD) Non-Af 40 L, BUN/Creatinine Ratio 14.2, Glucose 85, Calcium 8.8, C-React Prot Ext Range 16.80 H Micro: Microbiology 06/02/22 18:30 Tissue - Back Tissue Culture - Preliminary No growth-Final to follow 06/02/22 18:30 Implant - Other Wound Culture - Preliminary No growth-Final to follow Physical Exam Narrative General: Alert, oriented, no apparent distress HEENT: Atraumatic, normocephalic Eyes: Anicteric, normal conjunctiva, extraocular movements grossly intact Neck: Supple Respiratory: Clear to auscultation bilaterally, normal respiratory effort Cardiovascular: Regular rate and rhythm GI: Soft, nontender, nondistended Extremities: 1+ lower extremity edema bilaterally Musculoskeletal: Moving all extremities Neuro: No overt focal neurological deficits Skin: Dressing over incision, no erythema or significant tenderness Psych: Cooperative Assessment & Plan Assessment/Plan (1) Infection of spinal cord stimulator: PLAN: Plan #Lumbar pain, 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 Hopson, n.p.o. at midnight -06/02: discussed w/ Dr. Villalobos-advised infectious disease consult to assess possibility of IV antibiotics and not having to remove versus strong recommendation to remove. Consult placed, cultures pending, on broad-spectrum antibiotics. Patient to remain n.p.o. in the event she is able to be taken to the OR. -06/03: Status post removal 06/02. On Zosyn and Cipro. Cultures pending. We will follow pattern layout worker and hope to DC in next 1 to 2 days pending results #Chronic lumbar back pain -Continue oral as needed pain medication and buprenorphine patch, continue gabapentin -Will add as needed IV medication #CKD stage IIIb -Slight increase in creatinine though appears close to baseline -We will give some gentle hydration, no respiratory distress -06/03: Has some peripheral edema but no protein in UA, echo pending #Bilateral lower extremity swelling -We will obtain echocardiogram -No respiratory distress #Rheumatoid arthritis held hydroxychloroquine after discussing with Dr. Villalobos as he did not feel #Hypothyroidism -Continue Synthroid -TSH wnl #DVT ppx: SCDs Maria E Strickland MD Time spent in the patient's overall evaluation,decision-making process, review of diagnostic data, adjustment of management, discussion with other providers, nursing nursing and ancillary staff involved in patient's care documentation, 30minutes Charges/Coding Visit Charges Inpatient E&M: 85125 Subs Hosp L2 06/03/22 1534 <Electronically signed by Maria E Strickland MD> Cosigner Signature (if applicable): CC: ~ Signed [facility] Work Phone: [phone]) 869-466303-28-[address] Benitez [facility] June 03, 2022 9:56am Note Date/Time June 03, 2022 9:5 6am [facility] Medical Records Department [address] [place] [address] Progress Note - Infect Disease 06/03/22 0955 MR#: [id number] Acct: [id number] Name: SAVANNAH AGUIRRE Rep #:[id number] : 1960 61 From: Bethel ochoa MD PCP: Dr. Shahab Adams, DO Status:ADM IN Location: [place] [address] Physical Exam Narrative Feeling better, pain controlled, no fever Const alert and no apparent distress Resp normal air movement and clear to auscultation bilaterally Cardio regular rate and regular rhythm GI soft to palpation, non-tender and non-distended Skin Skin Narrative: dressing and drain in place ID ID: Route of nutrition/ use of supplements: [] Nutritional Intake: [] IV Site: [] Pollard Catheter: [] Assessment & Plan Assessment/Plan (1) Infection of spinal cord stimulator: PLAN: Culture earlier this month with pseudomonas. On zosyn/cipro here. Taken for device removal and I&D 06/02/[address] Villalobos. Surg cx pending. Will follow 06/03/22 0956 <Electronically signed by Bethel Benitez MD> Cosigner Signature (if applicable): CC: ~ Signed [facility] Work Phone: 1(319) 412-100003-27-2023 Procedure [facility] 06-02-[address] Benitez [facility] June 02, 2022 2:59pm Note Date/Time June 02, 2022 2:5 4pm [facility] Medical Records Department [address] [place] [address] Consultation - Infectious Dx 06/02/22 1448 MR#: [id number] Acct: [id number] Name: SAVANNAH AGUIRRE Rep #:[id number] : 1960 61 From: Bethel ochoa MD PCP: Dr. Shahab Adams, DO Status:ADM IN Location: [facility] [id number] Assessment & Plan Assessment/Plan (1) Infection of spinal cord stimulator: PLAN: Culture earlier this month with pseudomonas. On zosyn/cipro here. Recommend device removal. D/w Dr. Hopson, and OR planned for today. Will follow, thank you HPI Consult Data Date of Consult: 06/02/22 HPI Narrative HPI Narrative: SAVANNAH AGUIRRE, is a 61 F with spinal cord stimulator placement in March, complicated by pseudomonas infection. Treated initially with doxy, then bactrimand cipro; had I&D done. Finished abx about a week ago, now admitted 06/01 due to several days increasing lower back pain, swelling, redness over device pocketand insertion site. Some mild fever. Came to ED, admitted on zosyn/cipro, feeling about the same. Full ROS performed and neg except as noted above PFSH Medical History Arthritis Chronic pain Fibromyalgia Hypertension Migraines Rheumatoid arthritis Home Medications buprenorphine 20 mcg/hour weekly transdermal patch (Butrans) 1 patch transdermalQWEEK PAIN 01/13/21 [History Last Taken 05/28/22] hydrocodone-acetaminophen 5-325mg 5mg-325mg 1 tab PO Q6H PRN Pain 01/13/21 [History Last Taken 06/01/22] hydroxychloroquine 200 mg tablet 200 mg PO DAILY 01/13/21 [History Last Taken 05/31/22] levothyroxine 88 mcg tablet (Synthroid) 88 mcg PO DAILY 01/13/21 [History Last Taken 06/01/22] omeprazole 40 mg capsule,delayed release 40 mg PO DAILY 01/13/21 [History Last Taken 06/01/22] potassium chloride 20 mEq tablet,extended release(part/cryst) 20 meq PO TID SUPPLEMENT 01/13/21 [History Last Taken 06/01/22] triamterene 37.5 mg-hydrochlorothiazide 25 mg capsule 1 cap PO DAILY Check with primary doctor 01/13/21 [History Last Taken 06/01/22] gabapentin 400 mg capsule 400 mg PO TID PAIN 05/08/21 [History Last Taken 06/01/22] cholecalciferol (vitamin D3) 125 mcg (5,000 unit) capsule 125 mcg PO DAILY SUPPLEMENT 06/01/22 [History Last Taken 06/01/22] magnesium 250 mg tablet 250 mg PO DINNER SUPPLEMENT 06/01/22 [History Last Taken 05/31/22] metoprolol succinate 100 mg tablet,extended release 24 hr 100 mg PO DINNER HTN 06/01/22 [History Last Taken 06/01/22] Allergy/AdvReac Type Severity Reaction Status Date / Time oxycodone Allergy Rash Verified 03/19/20 23:42 Tetracyclines Allergy Rash Verified 03/19/20 23:42 Family History Mother Hypertension Surgical History History of carpal tunnel release Hx of cholecystectomy Hx of hysterectomy Hx of thyroidectomy Hx of tonsillectomy Social History Smoking Status: Never smoker Physical Exam Const alert, oriented x3 and no apparent distress General Appearance: cooperative HEENT normocephalic and head/scalp atraumatic Eyes PERRL and EOMs intact bilaterally Neck supple and No nodes Resp normal air movement and clear to auscultation bilaterally Cardio regular rate and regular rhythm GI soft to palpation, non-tender and non-distended Extremity General Extremity: edema Skin Skin Narrative: R posterior hip device pocket and L1-L2 insertion site with tenderness, some redness and swelling. Neuro CN's II-XII intact bilaterally Lab / Micro Data Attestation: I reviewed the patient's lab results. Result Diagrams: 06/02/22 06:21 06/02/22 06:21 Labs: Laboratory Results - last 24 hr 06/02/22 06:21: WBC 7.2, RBC 4.10 L, Hgb 11.4 L, Hct 35.6 L, MCV 86.8, MCH 27.8,MCHC 32.0, RDW Std Deviation 39.6, RDW Coeff of Hiro 12.3, Plt Count 280, MPV 10.0, Immature Gran % (Auto) 0.100, Neut % (Auto) 60.6, Lymph % (Auto) 17.5 L, [place] % (Auto) 14.2 H, Eos % (Auto) 7.0 H, Baso % (Auto) 0.6, Absolute Neuts (auto) 4.4, Absolute Lymphs (auto) 1.27, Nucleated RBC % 0 06/02/22 06:21: PT 14.0, INR 1.1 06/02/22 06:21: Sodium 141, Potassium 3.9, Chloride 109 H, Carbon Dioxide 25.0, Anion Gap 7, BUN 23 H, Creatinine 1.40 H, Estim Creat Clear Calc 37.01, Est GFR (MDRD) Af Amer 49 L, Est GFR (MDRD) Non-Af 40 L, BUN/Creatinine Ratio 16.4, Glucose 91, Calcium 9.1, Total Bilirubin 0.60, AST 29, ALT 25, Alkaline Phosphatase 64, C-React Prot Ext Range 17.90 H, Total Protein 6.0 L, Albumin 2.9L, Globulin 3.1, Albumin/Globulin Ratio 0.9, TSH 2.46 Radiology Impression Abdomen/Pelvis CT 06/01/22 13:50 IMPRESSION: Spinal stimulator with 2 leads entering the spinal canal at L1-2. Soft tissue density surrounds leads in the subcutaneous tissues at this level suggestive of phlegmon or hematoma. Correlation advised. Levoscoliosis. Moderate sized hiatal hernia. Status post cholecystectomy. Hysterectomy versus atrophic uterus. Degenerative changes lumbar spine. Electronically Signed: Shahab Olmstead MD, JERRY at 15:33 EDT , Chest X-Ray 06/02/22 05:00 IMPRESSION: Streaky left lung base atelectasis versus other airspace disease, to include developing pneumonia. Recommend follow-up to resolution. Electronically Signed: Oscar Camarillo MD at 5:44 EDT , 06/02/22 145 <Electronically signed by Bethel Benitez MD> Cosigner Signature (if applicable): CC: Dr. Josafat Villalobos MD; Dr. Shahab Adams DO; Dr. Bethel Benitez MD~ Signed [facility] Work Phone: [phone]) 386-687503-27-[address] Strickland [facility] June 02, 2022 1:54pm Note Date/Time June 02, 2022 10: 38am [facility] Medical Records Department [address] [place] [address] Progress Note - Hospitalist 06/02/22 1038 MR#: [id number] Acct: [id number] Name: SAVANNAH AGUIRRE Rep #:[id number] : 1960 61 From: Maria E Strickland MD PCP: Dr. Shahab Adams DO Status:ADM IN Location: [facility] GB514-7 Reason for Visit Reason for Visit: Diagnoses Infection and inflammatory reaction due to implanted electronic neurostimulator of spinal cord, electrode (lead), initial encounter (06/01/22) Subjective Subjective Reports feeling the same today, no increased pain but still feels generally achy. Objective Data Objective Data Vital Signs: Vital Signs Temp Pulse Resp BP Pulse Ox O2 Del Method 99.2 F H 56 L 16 112/55 L 92 Room Air 06/02/22 08:51 06/02/22 08:51 06/02/22 08:51 06/02/22 08:51 06/02/22 08:51 06/02/22 08:51 Oxygen Delivery Method Room Air Weight: 92.9 kg Body Mass Index (BMI) 34.0 Intake & Output: Intake and Output for Last 24 Hours 05/31/22 06/01/22 06/02/22 23:59 23:59 23:59 Intake Total 250 / 690 1576.67 / 1576.67 Output Total 300 / 300 Balance 250 / 690 1276.67 / 1276.67 Lab / Micro Data Result Diagrams: 06/02/22 06:21 06/02/22 06:21 Labs: Laboratory Results - last 24 hr 06/01/22 14:00: WBC 10.6, RBC 4.75, Hgb 13.2, Hct 41.7, MCV 87.8, MCH 27.8, MCHC31.7 L, RDW Std Deviation 39.4, RDW Coeff of Hiro 12.2, Plt Count 318, MPV 9.9, Immature Gran % (Auto) 0.400, Neut % (Auto) 68.9, Lymph % (Auto) 13.4 L, [place] % (Auto) 10.3 H, Eos % (Auto) 6.3 H, Baso % (Auto) 0.7, Absolute Neuts (auto) 7.3,Absolute Lymphs (auto) 1.42, Nucleated RBC % 0, ESR 26 06/01/22 14:00: Sodium 140, Potassium 4.2, Chloride 108 H, Carbon Dioxide 28.0, Anion Gap 4 L, BUN 22 H, Creatinine 1.40 H, Estim Creat Clear Calc 37.01, Est GFR (MDRD) Af Amer 49 L, Est GFR (MDRD) Non-Af 40 L, BUN/Creatinine Ratio 15.7, Glucose 87, Calcium 9.8, C-React Prot Ext Range 15.50 H 06/01/22 14:00: Lactic Acid 1.3 06/02/22 06:21: WBC 7.2, RBC 4.10 L, Hgb 11.4 L, Hct 35.6 L, MCV 86.8, MCH 27.8,MCHC 32.0, RDW Std Deviation 39.6, RDW Coeff of Hiro 12.3, Plt Count 280, MPV 10.0, Immature Gran % (Auto) 0.100, Neut % (Auto) 60.6, Lymph % (Auto) 17.5 L, [place] % (Auto) 14.2 H, Eos % (Auto) 7.0 H, Baso % (Auto) 0.6, Absolute Neuts (auto) 4.4, Absolute Lymphs (auto) 1.27, Nucleated RBC % 0 06/02/22 06:21: PT 14.0, INR 1.1 06/02/22 06:21: Sodium 141, Potassium 3.9, Chloride 109 H, Carbon Dioxide 25.0, Anion Gap 7, BUN 23 H, Creatinine 1.40 H, Estim Creat Clear Calc 37.01, Est GFR (MDRD) Af Amer 49 L, Est GFR (MDRD) Non-Af 40 L, BUN/Creatinine Ratio 16.4, Glucose 91, Calcium 9.1, Total Bilirubin 0.60, AST 29, ALT 25, Alkaline Phosphatase 64, C-React Prot Ext Range 17.90 H, Total Protein 6.0 L, Albumin 2.9L, Globulin 3.1, Albumin/Globulin Ratio 0.9, TSH 2.46 Radiography Diagnostic Testing: Radiology Impression Abdomen/Pelvis CT 06/01/22 13:50 IMPRESSION: Spinal stimulator with 2 leads entering the spinal canal at L1-2. Soft tissue density surrounds leads in the subcutaneous tissues at this level suggestive of phlegmon or hematoma. Correlation advised. Levoscoliosis. Moderate sized hiatal hernia. Status post cholecystectomy. Hysterectomy versus atrophic uterus. Degenerative changes lumbar spine. Electronically Signed: Shahab Olmstead MD, JERRY at 15:33 EDT , Chest X-Ray 06/02/22 05:00 IMPRESSION: Streaky left lung base atelectasis versus other airspace disease, to include developing pneumonia. Recommend follow-up to resolution. Electronically Signed: Oscar Camarillo MD at 5:44 EDT , Physical Exam Narrative General: Alert, oriented, no apparent distress HEENT: Atraumatic, normocephalic Eyes: Anicteric, normal conjunctiva, extraocular movements grossly intact Neck: Supple Respiratory: Clear to auscultation bilaterally, normal respiratory effort Cardiovascular: Regular rate and rhythm GI: Soft, nontender, nondistended Extremities: 1+ bilateral lower extremity pitting edema Musculoskeletal: Moving all extremities Neuro: No overt focal neurological deficits Skin: No rashes appreciated, incision noted, has some warmth and erythema in theimmediate surrounding area without drainage or fluctuance Psych: Cooperative Assessment & Plan Assessment/Plan (1) Infection of spinal cord stimulator: PLAN: Plan #Lumbar pain, 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 Hopson, n.p.o. at midnight -06/02: discussed w/ Dr. Hopson-advised infectious disease consult to assess possibility of IV antibiotics and not having to remove versus strong recommendation to remove. Consult placed, cultures pending, on broad-spectrum antibiotics. Patient to remain n.p.o. in the event she is able to be taken to the OR. #Chronic lumbar back pain -Continue oral as needed pain medication and buprenorphine patch, continue gabapentin -Will add as needed IV medication #CKD stage IIIb -Slight increase in creatinine though appears close to baseline -We will give some gentle hydration, no respiratory distress #Bilateral lower extremity swelling -We will obtain echocardiogram -No respiratory distress #Rheumatoid arthritis -Continue hydroxychloroquine #Hypothyroidism -Continue Synthroid -TSH wnl #DVT ppx: SCDs Maria E Strickland MD Time spent in the patient's overall evaluation,decision-making process, review of diagnostic data, adjustment of management, discussion with other providers, nursing nursing and ancillary staff involved in patient's care documentation, 30minutes Charges/Coding Visit Charges Inpatient E&M: 51661 Subs Hosp L2 06/02/22 1354 <Electronically signed by Maria E Strickland MD> Cosigner Signature (if applicable): CC: ~ Signed [facility] Work Phone: 1(432) [phone] History and physical note Author Dr. Strickland [facility] June 01, 2022 5:30pm Note Date/Time June 01, 2022 5:2 5pm [facility] Medical Records Department [address] [place] [address] H&P Exam - Hospitalist 06/01/22 1716 MR#: [id number] Acct: [id number] Name: SAVANNAH AGUIRRE Rep #:[id number] : 1960 61 From: Maria E Strickland MD PCP: Dr. Shahab Adams, DO Status:ADM IN Location: [facility] YD[facility]-5 HPI - General General Date of Admission: 06/01/22 Date of Service: 06/01/22 Chief Complaint: General achiness, lumbar back pain HPI Narrative SAVANNAH AGUIRRE, is a 61 F with a history of chronic pain with spinal stimulator implant in March and subsequent infection in early May with washout who presented to [facility] 06/01/2022 with increasing pain around incision site. In the ED she had CRP mildly elevated and CT scan showed soft tissue density at L1 and the spinal canal. Her pain management physician Dr. Hopson contacted the ED and recommended admission, [place] and [place], and consultso he can remove the stimulator tomorrow inpatient. Hospitalist consulted for admission. Spoke with patient at bedside and she reports that she had a spinal stimulator in March and has had some generalized achiness but had significant problems earlier this month and was taken to the OR and had a washout. She had intraoperative cultures grew Pseudomonas and finished antibiotics last Thursday. Over the past several days she has had increasing pain in the area and feels shehad noticed a red streak below it. Additionally noted her temperature at home to be 99.8 and she was concerned she was febrile. Additionally reports she is achy all over and touching anything is painful and she feels she is more sensitive to pain overall. Denies any draining from the incision site. She denies any numbness or tingling, no focal deficits, did have some constipation when she was on Bactrim that has resolved and denies any bowel or bladder problems. [facility] Medical History Arthritis Chronic pain Fibromyalgia Migraines Rheumatoid arthritis Home Medications buprenorphine 20 mcg/hour weekly transdermal patch (Butrans) 1 patch transdermalQWEEK PAIN 01/13/21 [History Last Taken 05/28/22] hydrocodone-acetaminophen 5-325mg 5mg-325mg 1 tab PO Q6H PRN Pain 01/13/21 [History Last Taken 06/01/22] hydroxychloroquine 200 mg tablet 200 mg PO DAILY 01/13/21 [History Last Taken 05/31/22] levothyroxine 88 mcg tablet (Synthroid) 88 mcg PO DAILY 01/13/21 [History Last Taken 06/01/22] omeprazole 40 mg capsule,delayed release 40 mg PO DAILY 01/13/21 [History Last Taken 06/01/22] potassium chloride 20 mEq tablet,extended release(part/cryst) 20 meq PO TID SUPPLEMENT 01/13/21 [History Last Taken 06/01/22] triamterene 37.5 mg-hydrochlorothiazide 25 mg capsule 1 cap PO DAILY 01/13/21 [History Last Taken 06/01/22] gabapentin 400 mg capsule 400 mg PO TID PAIN 05/08/21 [History Last Taken 06/01/22] cholecalciferol (vitamin D3) 125 mcg (5,000 unit) capsule 125 mcg PO DAILY SUPPLEMENT 06/01/22 [History Last Taken 06/01/22] magnesium 250 mg tablet 250 mg PO DAILY SUPPLEMENT 06/01/22 [History Last Taken 05/31/22] metoprolol succinate 100 mg tablet,extended release 24 hr 100 mg PO DAILY HTN 06/01/22 [History Last Taken 06/01/22] Allergy/AdvReac Type Severity Reaction Status Date / Time oxycodone Allergy Rash Verified 03/19/20 23:42 Tetracyclines Allergy Rash Verified 03/19/20 23:42 Family History Mother Hypertension Surgical History History of carpal tunnel release Hx of cholecystectomy Hx of hysterectomy Hx of thyroidectomy Hx of tonsillectomy Social History Smoking Status: Never smoker ROS ROS Narrative General: Has been generally achy and feels she had a fever HENT: Denies headache, denies stuffy nose, denies sore throat EYES: Denies changes in vision Resp: Denies cough, denies shortness of breath Cardiac: Denies chest pain GI: Denies abdominal pain, denies changes in bowel, denies nausea/vomiting : Denies changes in urination Extremity: Has had some progressive swelling in her bilateral lower extremities MSK: Denies weakness Neuro: Denies any numbness/tingling Heme: Denies any bleeding or bruising Skin: [place] maybe there is some redness below her incision site Psychiatric: No complaints voiced Vital Signs Vital Signs Vital Signs: 06/01/22 13:36 06/01/22 16:35 Temperature 97.7 F L 98.2 F Temperature Source Temporal Oral Pulse Rate 56 L 53 L Respiratory Rate 16 18 Blood Pressure 154/67 H 155/59 H Blood Pressure Mean 96 91 Pulse Ox 99 97 Oxygen Delivery Method Room Air Room Air Weight Weight: 94.166 kg Body Mass Index (BMI) 34.5 Physical Exam Narrative General: Alert, oriented, no apparent distress HEENT: Atraumatic, normocephalic Eyes: Anicteric, normal conjunctiva, extraocular movements grossly intact Neck: Supple Respiratory: Clear to auscultation bilaterally, normal respiratory effort Cardiovascular: Regular rate and rhythm GI: Soft, nontender, nondistended Extremities: 1+ bilateral lower extremity pitting edema Musculoskeletal: Moving all extremities Neuro: No overt focal neurological deficits Skin: No rashes appreciated, incision noted, has some warmth and erythema in theimmediate surrounding area without drainage or fluctuance Psych: Cooperative Results Lab / Micro Data Result Diagrams: 06/01/22 14:00 06/01/22 14:00 Labs: Laboratory Results - last 24 hr 06/01/22 14:00: WBC 10.6, RBC 4.75, Hgb 13.2, Hct 41.7, MCV 87.8, MCH 27.8, MCHC31.7 L, RDW Std Deviation 39.4, RDW Coeff of Hiro 12.2, Plt Count 318, MPV 9.9, Immature Gran % (Auto) 0.400, Neut % (Auto) 68.9, Lymph % (Auto) 13.4 L, [place] % (Auto) 10.3 H, Eos % (Auto) 6.3 H, Baso % (Auto) 0.7, Absolute Neuts (auto) 7.3,Absolute Lymphs (auto) 1.42, Nucleated RBC % 0, ESR 26 06/01/22 14:00: Sodium 140, Potassium 4.2, Chloride 108 H, Carbon Dioxide 28.0, Anion Gap 4 L, BUN 22 H, Creatinine 1.40 H, Estim Creat Clear Calc 37.01, Est GFR (MDRD) Af Amer 49 L, Est GFR (MDRD) Non-Af 40 L, BUN/Creatinine Ratio 15.7, Glucose 87, Calcium 9.8, C-React Prot Ext Range 15.50 H 06/01/22 14:00: Lactic Acid 1.3 Radiology Impression Abdomen/Pelvis CT 06/01/22 13:50 IMPRESSION: Spinal stimulator with 2 leads entering the spinal canal at L1-2. Soft tissue density surrounds leads in the subcutaneous tissues at this level suggestive of phlegmon or hematoma. Correlation advised. Levoscoliosis. Moderate sized hiatal hernia. Status post cholecystectomy. Hysterectomy versus atrophic uterus. Degenerative changes lumbar spine. Electronically Signed: Shahab Olmstead MD, JERRY at 15:33 EDT , Assessment & Plan Assessment/Plan (1) Infection of spinal cord stimulator: PLAN: Plan #Lumbar pain, 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 Hopson, n.p.o. at midnight #Chronic lumbar back pain -Continue oral as needed pain medication and buprenorphine patch, continue gabapentin -Will add as needed IV medication #CKD stage IIIb -Slight increase in creatinine though appears close to baseline -We will give some gentle hydration, no respiratory distress #Bilateral lower extremity swelling -We will obtain echocardiogram -No respiratory distress #Rheumatoid arthritis -Continue hydroxychloroquine #Hypothyroidism -Continue Synthroid -TSH in a.m. #DVT ppx: SCDs Maria E Strickland MD Time spent in the patient's overall evaluation,decision-making process, review of diagnostic data, adjustment of management, discussion with other providers, nursing nursing and ancillary staff involved in patient's care documentation, 60minutes Charges/Coding Visit Charges Inpatient E&M: 67177 Init Hosp L2 06/01/22 1730 <Electronically signed by Maria E Strickland MD> Cosigner Signature (if applicable): CC: Dr. Shahab Adams, DO; Dr. Maria E Strickland MD~ Signed [facility] Work Phone: [phone] 834-439403-26-[address] Haile [facility] June 01, 2022 4:34pm Note Date/Time June 01, 2022 2:0 2pm [facility] Medical Records Department [address] [place] [address] Emergency Department Summary 06/01/22 MR#: [id number] Acct: [id number] Name: SAVANNAH AGUIRRE Rep #:[id number] : 1960 61 From: Shakira Haile MD PCP: Dr. Shahab Adams, DO Status:REG ER Location: ED HPI History of Present Illness Chief Complaint: Fever Informant: patient Onset/Context/Timing Onset: Today Narrative Narrative: Patient presents with fever and concern for infection of her stimulator site. She had a spinal stimulator placed in March by Dr. Hopson. She states about a month ago the area was infected. They went back in and washed out the site. Patient states her culture was positive for Pseudomonas. She thought things been healing well, however over the last day or 2 she had increased pain around the stimulator site and today has noted some red streaks and had a temperature of 99.7. She has no other source of infection. She denies cough or congestion. She has no urinary symptoms. No vomiting or diarrhea. [facility] Medical History Arthritis Chronic pain Fibromyalgia Migraines Rheumatoid arthritis Home Medications abatacept 125 mg/mL subcutaneous syringe (Orencia) 125 mg subcut QWEEK 01/13/21 [History Last Taken Unknown] buprenorphine 20 mcg/hour weekly transdermal patch (Butrans) 1 patch transdermalQWEEK 01/13/21 [History Last Taken Unknown] dexamethasone 6 mg tablet 6 mg PO DAILY #6 tabs 01/13/21 [Rx Last Taken Unknown] hydrocodone-acetaminophen 5-325mg 5mg-325mg 1 tab PO Q6H PRN Pain 01/13/21 [History Last Taken Unknown] hydroxychloroquine 200 mg tablet 200 mg PO DAILY 01/13/21 [History Last Taken Unknown] levothyroxine 88 mcg tablet (Synthroid) 88 mcg PO DAILY 01/13/21 [History Last Taken Unknown] metoprolol tartrate 100 mg tablet 100 mg PO DAILY 01/13/21 [History Last Taken Unknown] milnacipran 12.5 mg tablet (Savella) 12.5 mg PO BID 01/13/21 [History Last Taken Unknown] omeprazole 40 mg capsule,delayed release 40 mg PO DAILY 01/13/21 [History Last Taken Unknown] potassium chloride 20 mEq tablet,extended release(part/cryst) 60 meq PO DAILY 01/13/21 [History Last Taken Unknown] prednisone 5 mg tablet 5 mg PO DAILY 01/13/21 [History Last Taken Unknown] triamterene 37.5 mg-hydrochlorothiazide 25 mg capsule 1 cap PO DAILY 01/13/21 [History Last Taken Unknown] gabapentin 400 mg capsule ea PO 05/08/21 [History Last Taken Unknown] Allergy/AdvReac Type Severity Reaction Status Date / Time oxycodone Allergy Rash Verified 03/19/20 23:42 Penicillins [PCN] Allergy Unknown Verified 03/19/20 23:42 Tetracyclines Allergy Rash Verified 03/19/20 23:42 Family History Mother Hypertension Surgical History History of carpal tunnel release Hx of cholecystectomy Hx of hysterectomy Hx of thyroidectomy Hx of tonsillectomy Social History Smoking Status: Never smoker ROS ROS ED Constitutional Constitutional ED: Reports chills and fever(s) Eyes Eyes: Reports discharge from eye(s); Denies change in vision ENT ENT ED: Reports discharge from eye(s); Denies rhinorrhea or sore throat Cardiovascular Cardiovascular: Denies chest pain or palpitations Respiratory/Chest Respiratory/Chest: Denies cough or dyspnea Gastrointestinal Gastrointestinal: Denies abdominal pain, diarrhea, nausea or vomiting Genitourinary Genitourinary ED: Denies difficulty urinating or dysuria Musculoskeletal Musculoskeletal: Reports back pain; Denies extremity pain Integumentary Denies Abrasions or rash Neurologic Neurologic: Denies headache(s) or weakness Psychiatric Psychiatric: Denies anxiety or depression Allergic/Immunologic Allergic/Immunologic ED: Denies lip swelling or urticaria EXAM Physical Exam Const Vital Signs: 06/01/22 13:36 Temperature 97.7 F L Temperature Source Temporal Pulse Rate 56 L Respiratory Rate 16 Blood Pressure 154/67 H Blood Pressure Mean 96 Pulse Ox 99 Oxygen Delivery Method Room Air Positive well nourished and well developed General Appearance ED: well developed HEENT Reports normocephalic and head/scalp atraumatic Eyes PERRL and EOMs intact bilaterally Neck supple Chest Wall inspection of chest normal and palpation of chest normal Resp normal respiratory effort and clear to auscultation bilaterally Cardio regular rate and regular rhythm GI normal to inspection, nondistended, normoactive bowel sounds Palpation: soft Back/Spine Back/Spine Narrative: Mild tenderness over the spinal stimulator site. No open wounds noted. Mild redness noted over her lower back with no definitive line demarcating the area. Extremity normal to inspection Neuro oriented x3 and no sensory deficits noted Sensorium / Orientation: alert Motor Exam: strength 5/5 throughout Psych mental status grossly normal MDM MDM MDM Narrative Medical decision making narrative: Labwork obtained to evaluate for leukocytosis, anemia, and electrolyte derangement. CT scan of the abdomen pelvis with IV contrast ordered. Lab Data Attestation: I reviewed the patient's lab results. Labs: Laboratory Results - last 24 hr 06/01/22 06/01/22 06/01/22 14:00 14:00 14:00 WBC 10.6 RBC 4.75 Hgb 13.2 Hct 41.7 MCV 87.8 MCH 27.8 MCHC 31.7 L RDW Std Deviation 39.4 RDW Coeff of Hiro 12.2 Plt Count 318 MPV 9.9 Immature Gran % (Auto) 0.400 Neut % (Auto) 68.9 Lymph % (Auto) 13.4 L [place] % (Auto) 10.3 H Eos % (Auto) 6.3 H Baso % (Auto) 0.7 Absolute Neuts (auto) 7.3 Absolute Lymphs (auto) 1.42 Nucleated RBC % 0 ESR 26 Sodium 140 Potassium 4.2 Chloride 108 H Carbon Dioxide 28.0 Anion Gap 4 L BUN 22 H Creatinine 1.40 H Estim Creat Clear Calc 37.01 Est GFR (MDRD) Af Amer 49 L Est GFR (MDRD) Non-Af 40 L BUN/Creatinine Ratio 15.7 Glucose 87 Lactic Acid 1.3 Calcium 9.8 C-React Prot Ext Range 15.50 H Radiography Diagnostic Testing: Clinical Impression(s) from Imaging Studies Abdomen/Pelvis CT 06/01/22 13:50 IMPRESSION: Spinal stimulator with 2 leads entering the spinal canal at L1-2. Soft tissue density surrounds leads in the subcutaneous tissues at this level suggestive of phlegmon or hematoma. Correlation advised. Levoscoliosis. Moderate sized hiatal hernia. Status post cholecystectomy. Hysterectomy versus atrophic uterus. Degenerative changes lumbar spine. Electronically Signed: Shahab Olmstead MD, JERRY at 15:33 EDT , Treatment and Re-Evaluation :: CBC reveals normal white count at 10.6 with normal differential. Chemistry studies remarkable only for a BUN of 22 and a creatinine 1.4. This is only slightly elevated from her baseline. Lactic acid is normal at 1.3. CRP is elevated at 15.5 but sed rate is normal at 26. CT scan with IV contrast reveals soft tissue density surrounding the spinal stimulator leads in the subcutaneous tissue at L1 to where they leads enter the spinal canal. This could represent phlegmon or hematoma. I spoke with Dr. Wilson, the patient's pain management physician. Because the patient had recent Pseudomonas in her stimulator pocket, patient be covered with Cipro as well as Zosyn for more broad-spectrum coverage. He would like the patient admitted overnight and he will plan to take the patient for removal of her stimulator tomorrow. This is been discussed with the patient and she is in agreement with the plan. I will discuss with hospitalist for admission. 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 Prescriptions: No Action gabapentin 400 mg capsule PO Label Comments: take 1 capsule by mouth three times a day metoprolol tartrate 100 mg Tablet 100 mg PO DAILY hydrocodone-acetaminophen 5-325 mg Tablet 1 tab PO Q6H PRN (Reason: Pain) prednisone 5 mg Tablet 5 mg PO DAILY Hold Instructions: until your decadron is finished omeprazole 40 mg Capsule,Delayed Release(Dr/Ec) 40 mg PO DAILY triamterene-hydrochlorothiazid 37.5-25 mg Capsule 1 cap PO DAILY levothyroxine [Synthroid] 88 mcg Tablet 88 mcg PO DAILY potassium chloride 20 mEq tablet,ER particles/crystals 60 meq PO DAILY Label Comments: take 3 capsules by mouth once daily Rx Instructions: 40 IN AM, 20 QHS hydroxychloroquine 200 mg Tablet 200 mg PO DAILY Savella 12.5 mg Tablet 12.5 mg PO BID buprenorphine [Butrans] 20 mcg/hour Patch Weekly 1 patch TRANSDERMAL QWEEK Orencia 125 mg/mL Syringe 125 mg SUBCUT QWEEK dexamethasone 6 MG tablet 6 mg PO DAILY Qty: 6 0RF Primary Care Provider: Shahab Adams Referrals: Shahab Adams DO [Primary Care Provider] - Disposition Disposition: Acute Care Hospital [facility] What to do if you have Problems For any increased pain, shortness of breath, bleeding, nausea or vomiting, chestpain, or any unexpected problems, contact your Primary Care Provider. Call [facility] ([phone]) or report to the closest Emergency Room. Call 911 if necessary. 06/01/22 1634 <Electronically signed by Shakira Haile MD> Cosigner Signature (if applicable): CC: Dr. Shahab Adams DO ~ Signed [facility] Work Phone: [phone] 940-711003-26-[address] Haile [facility] June 01, 2022 4:34pm Note Date/Time June 01, 2022 2:0 2pm [facility] Medical Records Department [address] [place] [address] Emergency Department Summary 06/01/22 MR#: [id number] Acct: [id number] Name: SAVANNAH AGUIRRE Rep #:[id number] : 1960 61 From: Shakira Haile MD PCP: Dr. Shahab Adams DO Status:REG ER Location: ED HPI History of Present Illness Chief Complaint: Fever Informant: patient Onset/Context/Timing Onset: Today Narrative Narrative: Patient presents with fever and concern for infection of her stimulator site. She had a spinal stimulator placed in March by Dr. Hopson. She states about a month ago the area was infected. They went back in and washed out the site. Patient states her culture was positive for Pseudomonas. She thought things been healing well, however over the last day or 2 she had increased pain around the stimulator site and today has noted some red streaks and had a temperature of 99.7. She has no other source of infection. She denies cough or congestion. She has no urinary symptoms. No vomiting or diarrhea. [facility] Medical History Arthritis Chronic pain Fibromyalgia Migraines Rheumatoid arthritis Home Medications abatacept 125 mg/mL subcutaneous syringe (Orencia) 125 mg subcut QWEEK 01/13/21 [History Last Taken Unknown] buprenorphine 20 mcg/hour weekly transdermal patch (Butrans) 1 patch transdermalQWEEK 01/13/21 [History Last Taken Unknown] dexamethasone 6 mg tablet 6 mg PO DAILY #6 tabs 01/13/21 [Rx Last Taken Unknown] hydrocodone-acetaminophen 5-325mg 5mg-325mg 1 tab PO Q6H PRN Pain 01/13/21 [History Last Taken Unknown] hydroxychloroquine 200 mg tablet 200 mg PO DAILY 01/13/21 [History Last Taken Unknown] levothyroxine 88 mcg tablet (Synthroid) 88 mcg PO DAILY 01/13/21 [History Last Taken Unknown] metoprolol tartrate 100 mg tablet 100 mg PO DAILY 01/13/21 [History Last Taken Unknown] milnacipran 12.5 mg tablet (Savella) 12.5 mg PO BID 01/13/21 [History Last Taken Unknown] omeprazole 40 mg capsule,delayed release 40 mg PO DAILY 01/13/21 [History Last Taken Unknown] potassium chloride 20 mEq tablet,extended release(part/cryst) 60 meq PO DAILY 01/13/21 [History Last Taken Unknown] prednisone 5 mg tablet 5 mg PO DAILY 01/13/21 [History Last Taken Unknown] triamterene 37.5 mg-hydrochlorothiazide 25 mg capsule 1 cap PO DAILY 01/13/21 [History Last Taken Unknown] gabapentin 400 mg capsule ea PO 05/08/21 [History Last Taken Unknown] Allergy/AdvReac Type Severity Reaction Status Date / Time oxycodone Allergy Rash Verified 03/19/20 23:42 Penicillins [PCN] Allergy Unknown Verified 03/19/20 23:42 Tetracyclines Allergy Rash Verified 03/19/20 23:42 Family History Mother Hypertension Surgical History History of carpal tunnel release Hx of cholecystectomy Hx of hysterectomy Hx of thyroidectomy Hx of tonsillectomy Social History Smoking Status: Never smoker ROS ROS ED Constitutional Constitutional ED: Reports chills and fever(s) Eyes Eyes: Reports discharge from eye(s); Denies change in vision ENT ENT ED: Reports discharge from eye(s); Denies rhinorrhea or sore throat Cardiovascular Cardiovascular: Denies chest pain or palpitations Respiratory/Chest Respiratory/Chest: Denies cough or dyspnea Gastrointestinal Gastrointestinal: Denies abdominal pain, diarrhea, nausea or vomiting Genitourinary Genitourinary ED: Denies difficulty urinating or dysuria Musculoskeletal Musculoskeletal: Reports back pain; Denies extremity pain Integumentary Denies Abrasions or rash Neurologic Neurologic: Denies headache(s) or weakness Psychiatric Psychiatric: Denies anxiety or depression Allergic/Immunologic Allergic/Immunologic ED: Denies lip swelling or urticaria EXAM Physical Exam Const Vital Signs: 06/01/22 13:36 Temperature 97.7 F L Temperature Source Temporal Pulse Rate 56 L Respiratory Rate 16 Blood Pressure 154/67 H Blood Pressure Mean 96 Pulse Ox 99 Oxygen Delivery Method Room Air Positive well nourished and well developed General Appearance ED: well developed HEENT Reports normocephalic and head/scalp atraumatic Eyes PERRL and EOMs intact bilaterally Neck supple Chest Wall inspection of chest normal and palpation of chest normal Resp normal respiratory effort and clear to auscultation bilaterally Cardio regular rate and regular rhythm GI normal to inspection, nondistended, normoactive bowel sounds Palpation: soft Back/Spine Back/Spine Narrative: Mild tenderness over the spinal stimulator site. No open wounds noted. Mild redness noted over her lower back with no definitive line demarcating the area. Extremity normal to inspection Neuro oriented x3 and no sensory deficits noted Sensorium / Orientation: alert Motor Exam: strength 5/5 throughout Psych mental status grossly normal MDM MDM MDM Narrative Medical decision making narrative: Labwork obtained to evaluate for leukocytosis, anemia, and electrolyte derangement. CT scan of the abdomen pelvis with IV contrast ordered. Lab Data Attestation: I reviewed the patient's lab results. Labs: Laboratory Results - last 24 hr 06/01/22 06/01/22 06/01/22 14:00 14:00 14:00 WBC 10.6 RBC 4.75 Hgb 13.2 Hct 41.7 MCV 87.8 MCH 27.8 MCHC 31.7 L RDW Std Deviation 39.4 RDW Coeff of Hiro 12.2 Plt Count 318 MPV 9.9 Immature Gran % (Auto) 0.400 Neut % (Auto) 68.9 Lymph % (Auto) 13.4 L [place] % (Auto) 10.3 H Eos % (Auto) 6.3 H Baso % (Auto) 0.7 Absolute Neuts (auto) 7.3 Absolute Lymphs (auto) 1.42 Nucleated RBC % 0 ESR 26 Sodium 140 Potassium 4.2 Chloride 108 H Carbon Dioxide 28.0 Anion Gap 4 L BUN 22 H Creatinine 1.40 H Estim Creat Clear Calc 37.01 Est GFR (MDRD) Af Amer 49 L Est GFR (MDRD) Non-Af 40 L BUN/Creatinine Ratio 15.7 Glucose 87 Lactic Acid 1.3 Calcium 9.8 C-React Prot Ext Range 15.50 H Radiography Diagnostic Testing: Clinical Impression(s) from Imaging Studies Abdomen/Pelvis CT 06/01/22 13:50 IMPRESSION: Spinal stimulator with 2 leads entering the spinal canal at L1-2. Soft tissue density surrounds leads in the subcutaneous tissues at this level suggestive of phlegmon or hematoma. Correlation advised. Levoscoliosis. Moderate sized hiatal hernia. Status post cholecystectomy. Hysterectomy versus atrophic uterus. Degenerative changes lumbar spine. Electronically Signed: Shahab Olmstead MD, JERRY at 15:33 EDT , Treatment and Re-Evaluation :: CBC reveals normal white count at 10.6 with normal differential. Chemistry studies remarkable only for a BUN of 22 and a creatinine 1.4. This is only slightly elevated from her baseline. Lactic acid is normal at 1.3. CRP is elevated at 15.5 but sed rate is normal at 26. CT scan with IV contrast reveals soft tissue density surrounding the spinal stimulator leads in the subcutaneous tissue at L1 to where they leads enter the spinal canal. This could represent phlegmon or hematoma. I spoke with Dr. Wilson, the patient's pain management physician. Because the patient had recent Pseudomonas in her stimulator pocket, patient be covered with Cipro as well as Zosyn for more broad-spectrum coverage. He would like the patient admitted overnight and he will plan to take the patient for removal of her stimulator tomorrow. This is been discussed with the patient and she is in agreement with the plan. I will discuss with hospitalist for admission. 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 Prescriptions: No Action gabapentin 400 mg capsule PO Label Comments: take 1 capsule by mouth three times a day metoprolol tartrate 100 mg Tablet 100 mg PO DAILY hydrocodone-acetaminophen 5-325 mg Tablet 1 tab PO Q6H PRN (Reason: Pain) prednisone 5 mg Tablet 5 mg PO DAILY Hold Instructions: until your decadron is finished omeprazole 40 mg Capsule,Delayed Release(Dr/Ec) 40 mg PO DAILY triamterene-hydrochlorothiazid 37.5-25 mg Capsule 1 cap PO DAILY levothyroxine [Synthroid] 88 mcg Tablet 88 mcg PO DAILY potassium chloride 20 mEq tablet,ER particles/crystals 60 meq PO DAILY Label Comments: take 3 capsules by mouth once daily Rx Instructions: 40 IN AM, 20 QHS hydroxychloroquine 200 mg Tablet 200 mg PO DAILY Savella 12.5 mg Tablet 12.5 mg PO BID buprenorphine [Butrans] 20 mcg/hour Patch Weekly 1 patch TRANSDERMAL QWEEK Orencia 125 mg/mL Syringe 125 mg SUBCUT QWEEK dexamethasone 6 MG tablet 6 mg PO DAILY Qty: 6 0RF Primary Care Provider: Shahab Adams Referrals: Shahab Adams DO [Primary Care Provider] - Disposition Disposition: Acute Care Hospital [facility] What to do if you have Problems For any increased pain, shortness of breath, bleeding, nausea or vomiting, chestpain, or any unexpected problems, contact your Primary Care Provider. Call [facility] ([phone]) or report to the closest Emergency Room. Call 911 if necessary. 06/01/22 1634 <Electronically signed by Shakira Haile MD> Cosigner Signature (if applicable): CC: Dr. Shahab Adams DO ~ Signed [facility] Work Phone: Discharge summary Author Shahab Warren [facility] Note Date/Time June 29, 2024 4:3 3pm [facility] Medical Records Department [address] [place] [address] Instructions for Home/Discharge Instructions 06/29/24 1627 MR#: [id number] Acct: [id number] Name: SAVANNAH AGUIRRE Rep #:[id number] : 1960 63 From: Shahab Warren DO PCP: Dr. Shahab Adams, DO Status:ADM IN Discharge Instructions Diet Discharge Diet: No restrictions DC O2, CPAP, BIPAP needs Home O2 Discharge instructions: Yes Type of respiratory needs?: Oxygen Oxygen frequency: With Ambulation Oxygen liters per minute during Ambulation: 2 L Dressing / Incision Discharge Activity: Return to Normal Activity Weight Bearing Status: Full weight bearing Follow Up Care Test Results: Test results from this visit will be discussed in further detail at your follow- up appointment, if applicable. Discharge Plan Admission Admit Date/Time: 06/27/24 16:09 Primary Reason for Your Visit: Pneumonia, atelectasis Attending Provider: Shahab Warren Primary Care Provider: Shahab Adams Consulting Providers: Maria E Strickland Instructions Additional Instructions / Restrictions: Oxygen at 2 L/min when ambulating and during any activity Discharge Orders/Prescriptions Prescriptions: New levofloxacin 750 mg tablet 750 mg PO DAILY Qty: 5 0RF Rx Instructions: Start on 06/30/2024 Continued gabapentin 400 mg capsule 400 mg PO TID Patient Comments: take 1 capsule by mouth three times a day albuterol sulfate [ProAir HFA] 90 mcg/actuation HFA aerosol inhaler 2 puff inhalation Q4H PRN (Reason: shortness of breath or wheezing) hydrocodone-acetaminophen 5-325 mg Tablet 1 tab PO Q6H PRN (Reason: Pain) omeprazole 40 mg Capsule,Delayed Release(Dr/Ec) 40 mg PO DAILY triamterene-hydrochlorothiazid 37.5-25 mg Capsule 1 cap PO DAILY levothyroxine [Synthroid] 88 mcg Tablet 88 mcg PO DAILY potassium chloride 20 mEq tablet,ER particles/crystals 20 meq PO .COMPLEX Rx Instructions: 20 mEq orally 2 tabs am and 1 tab pm; buprenorphine [Butrans] 20 mcg/hour Patch Weekly 1 patch TRANSDERMAL QWEEK Rx Instructions: on wednesdays cholecalciferol (vitamin D3) 125 mcg (5,000 unit) Capsule 125 mcg PO DAILY magnesium 250 mg tablet 400 mg PO DINNER PRIMAL DEFENCE 410 mg PO 1XD Rx Instructions: DIETARY SUPPLEMENT metoprolol succinate 50 mg Tablet Extended Release 24 Hr 50 mg PO QHS allopurinol 300 mg tablet 300 mg PO DAILY colchicine 0.6 mg tablet 0.6 mg PO DAILY prednisone 10 mg tablet 10 mg PO DAILY Rx Instructions: with 1mg tab prednisone 1 mg tablet 2 mg PO DAILY Rx Instructions: with 10mg, pcp is tapering dose down ferrous gluconate 324 mg (38 mg iron) tablet 324 mg PO DAILY Humira(CF) Pen 40 mg/0.4 mL pen injector kit 40 mg subcut QWEEK Eliquis DVT-PE Treat 30D Start 5 mg (74 tabs) tablets,dose pack 5 mg PO Q12H Held sulfasalazine 500 mg tablet 500 mg PO BID Hold Instructions: Resume per direction of your customer sales advisor Patient Comments: pt has not started yet Referrals / Follow Up: Shahab Adams DO [Primary Care Provider] - In 1 Week Disposition Disposition (needs filled in before D/C Order can be placed): Home, Self Care 06/29/24 1867<Electronically signed by Shahab Warren DO>Shahab Warren DO CC: Dr. Shahab Adams DO; Dr. Maria E Strickland MD ~ Signed [facility] Work Phone: evaluation note* Diagnosis Onset Date Resolution Status Scoliosis due to degenerativ e disease of spine in adult patient [facility] Work Phone: Evaluation noteNo assessment information available [facility] Work Phone: evaluation note* Diagnosis Onset Date Resolution Status Infection of spinal cord stimulator [facility] Work Phone: Evaluation note* Diagnosis Onset Date Resolution Status Encounter for screening for malignant neoplasm of colo n acute [facility] Work Phone: Evaluation note* Diagnosis Pain in joint, multiple sites- [facility] Diagnosis Pain in joint, multiple sites- Primary documented in this encounter [facility] note* Diagnosis Pain in joint, multiple sites documented in this encounter [facility] note* Diagnosis Seronegative rheumatoid arthritis (HCC) Rheumatoid arthritis Chronic foot pain, unspecified laterality Screening for respiratory condition Screening for other and unspecified respiratory condition documented in this encounter [facility] note* Diagnosis Chronic foot pain, unspecified laterality- Primary Hyperuricemia Other abnormal blood chemistry Pain in both feet Pain in limb [facility] Diagnosis Pain in joint, multiple sites- Primary [facility] Diagnosis Chronic gout of multiple sites, unspecified cause- Primary [facility]* Diagnosis Seronegative rheumatoid arthritis (HCC)- Primary Rheumatoid arthritis [facility] Diagnosis Seronegative rheumatoid arthritis (HCC)- Primary Rheumatoid arthritis Chronic gout of multiple sites, unspecified cause 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 Generalized osteoarthrosis, unspecified site High risk medication use Encounter for long-term (current) use of other medications Fibromyalgia Mylagia and myositis, unspecified Elevated liver enzymes Other nonspecific abnormal serum enzyme levels Bilateral swelling of feet and ankles [facility] Diagnosis Seronegative rheumatoid arthritis (HCC)- Primary Rheumatoid arthritis [facility]* Diagnosis Seronegative rheumatoid arthritis (HCC)- Primary Rheumatoid arthritis [facility]* Diagnosis Seronegative rheumatoid arthritis (HCC)- Primary Rheumatoid arthritis [facility]* Diagnosis Seronegative rheumatoid arthritis (HCC)- Primary Rheumatoid arthritis Chronic gout of multiple sites, unspecified cause High risk medication use Encounter for long-term (current) use of other medications [facility]* Diagnosis Seronegative rheumatoid arthritis (HCC)- Primary Rheumatoid arthritis Chronic gout of multiple sites, unspecified cause High risk medication use Encounter for long-term (current) use of other medications Fibromyalgia Mylagia and myositis, unspecified Generalized osteoarthritis Generalized osteoarthrosis, unspecified site Elevated liver enzymes Other nonspecific abnormal serum enzyme levels [facility]* Diagnosis Seronegative rheumatoid arthritis (HCC)- Primary Rheumatoid arthritis [facility] Diagnosis Seronegative rheumatoid arthritis (HCC)- Primary Rheumatoid arthritis [facility]* Diagnosis Seronegative rheumatoid arthritis (HCC)- Primary Rheumatoid arthritis [facility] Diagnosis Seronegative rheumatoid arthritis (HCC)- Primary Rheumatoid arthritis [facility]* Diagnosis Long-term use of Plaquenil- Primary Encounter for long-term (current) use of other medications Nuclear senile cataract of both eyes Encounter for long-term (current) drug use Encounter for long-term (current) use of other medications [facility] Diagnosis Seronegative rheumatoid arthritis (HCC)- Primary Rheumatoid arthritis High risk medication use Encounter for long-term (current) use of other medications Elevated liver enzymes Other nonspecific abnormal serum enzyme levels Chronic gout of multiple sites, unspecified cause Fibromyalgia Mylagia and myositis, unspecified Generalized osteoarthritis Generalized osteoarthrosis, unspecified site USP 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 steroids Encounter for long-term (current) use of steroids [facility]* Diagnosis Seronegative rheumatoid arthritis (HCC) Rheumatoid arthritis [facility]* Diagnosis Seronegative rheumatoid arthritis (HCC) Rheumatoid arthritis [facility]* Diagnosis Seronegative rheumatoid arthritis (HCC)- Primary Rheumatoid arthritis Chronic gout of multiple sites, unspecified cause High risk medication use Encounter for long-term (current) use of other medications Elevated liver enzymes Other nonspecific abnormal serum enzyme levels Shortness of breath Bruising Contusion of unspecified site Osteopenia, unspecified location [facility]* Diagnosis Seronegative rheumatoid arthritis (HCC)- Primary Rheumatoid arthritis [facility]* Diagnosis Seronegative rheumatoid arthritis (HCC)- Primary Rheumatoid arthritis documented in this encounter [facility] note* Diagnosis Onset Date Resolution Status Admit Date Accelerated hypertension acute June 11, 2024 12:17am Hypoxemia acute June 11 12:17am Pulmonary embolism acute June 11, 2024 12:17am [facility] Work Phone: History and physical note Author Tee Cabrera [facility] November 13, 2022 10:22am Note Date/Time November 13, 2022 10:22am [facility] Medical Records Department [address] [place] [address] History & Physical Exam 11/13/22 1020 MR#: [id number] Acct: [id number] Name: SAVANNAH AGUIRRE Rep #:[id number] : 1960 62 From: Tee Cabrera DO PCP: Dr. Shahab Adams DO Status:[facility] Location: [address] - General General Date of Admission: 11/13/22 Date of Service: 11/13/22 Chief Complaint: Screening colonoscopy HPI Narrative SAVANNAH AGUIRRE, is a 62 F who presents here today for:. She has a past medical history of mild iron EMEA chronic back pain autoimmune disease, hypertension, GERD. She has a positive family history of polyps in her mother. She comes in today for screening colonoscopy. She does not have any abdominal pain. She nothave any nausea. She denies any chest pain or shortness of breath. She denies any change in bowel habits such as diarrhea, constipation or lower GI bleeding. All 16 view systems negative except as per above mentioned HPI. [facility] Medical History (Updated 11/12/22 @ 09:29 by Akosua Rain) Anemia Anxiety Arthritis Chronic pain CKD (chronic kidney disease) Depression Fibromyalgia Gastric reflux History of pain when walking Hypertension Hypothyroid Infection of spinal cord stimulator Leg cramps Migraines Non-smoker Post-menopausal Rheumatoid arthritis Thyroid disease Home Medications buprenorphine 20 mcg/hour weekly transdermal patch (Butrans) 1 patch transdermalQWEEK PAIN 01/13/21 [History Last Taken 05/28/22] hydrocodone-acetaminophen 5-325mg 5mg-325mg 1 tab PO Q6H PRN Pain 01/13/21 [History Last Taken 11/13/22 07:00] hydroxychloroquine 200 mg tablet 200 mg PO DAILY 01/13/21 [History Last Taken 05/31/22] levothyroxine 88 mcg tablet (Synthroid) 88 mcg PO DAILY 01/13/21 [History Last Taken 06/01/22] omeprazole 40 mg capsule,delayed release 40 mg PO DAILY 01/13/21 [History Last Taken 06/01/22] potassium chloride 20 mEq tablet,extended release(part/cryst) 20 meq PO TID SUPPLEMENT 01/13/21 [History Last Taken 06/01/22] triamterene 37.5 mg-hydrochlorothiazide 25 mg capsule 1 cap PO DAILY Check with primary doctor 01/13/21 [History Last Taken 06/01/22] gabapentin 400 mg capsule 400 mg PO TID PAIN 05/08/21 [History Last Taken 06/01/22] cholecalciferol (vitamin D3) 125 mcg (5,000 unit) capsule 125 mcg PO DAILY SUPPLEMENT 06/01/22 [History Last Taken 06/01/22] albuterol sulfate 90 mcg/actuation aerosol inhaler (ProAir HFA) 2 puff inhalation Q4H PRN shortness of breath or wheezing 10/22/22 [History Last Taken Unknown] ferrous gluconate 324 mg (37.5 mg iron) tablet 324 mg PO DAILY 10/22/22 [History Last Taken Unknown] magnesium 250 mg tablet 250 mg PO DINNER SUPPLEMENT 10/22/22 [History Last Taken Unknown] PRIMAL DEFENCE 410 mg PO 1XD 11/12/22 [History Last Taken Unknown] metoprolol succinate 50 mg tablet,extended release 24 hr 50 mg PO QHS 11/13/22 [History Last Taken Unknown] Allergy/AdvReac Type Severity Reaction Status Date / Time oxycodone Allergy Rash Verified 11/13/22 09:28 adhesive tape AdvReac Rash Verified 11/13/22 09:28 Family History (Updated 10/22/22 @ 08:30 by Kanika Ojeda) Mother Hypertension Colon polyps Surgical History History of carpal tunnel release Hx of cholecystectomy Hx of hysterectomy Hx of thyroidectomy Hx of tonsillectomy Social History (Updated 10/22/22 @ 08:31 by Kanika Ojeda) Smoking Status: Never smoker alcohol intake: never ROS ROS Narrative General: Has been generally achy and feels she had a fever HENT: Denies headache, denies stuffy nose, denies sore throat EYES: Denies changes in vision Resp: Denies cough, denies shortness of breath Cardiac: Denies chest pain GI: Denies abdominal pain, denies changes in bowel, denies nausea/vomiting : Denies changes in urination Extremity: Has had some progressive swelling in her bilateral lower extremities MSK: Denies weakness Neuro: Denies any numbness/tingling Heme: Denies any bleeding or bruising Skin: [place] maybe there is some redness below her incision site Psychiatric: No complaints voiced Vital Signs Vital Signs Vital Signs: 11/13/22 09:26 11/13/22 09:31 Temperature 97.5 F L Temperature Source Temporal Pulse Rate 53 L Respiratory Rate 18 Respiratory Pattern Normal Blood Pressure 143/77 H Blood Pressure Mean 99 Blood Pressure Source Monitor Blood Pressure Position Semi-Fowlers Blood Pressure Location Left Arm Pulse Ox 100 Oxygen Delivery Method Room Air Weight Weight: 189 lb Body Mass Index (BMI) 33.5 Physical Exam Narrative General: Alert, oriented, no apparent distress HEENT: Atraumatic, normocephalic Eyes: Anicteric, normal conjunctiva, extraocular movements grossly intact Neck: Supple Respiratory: Clear to auscultation bilaterally, normal respiratory effort Cardiovascular: Regular rate and rhythm GI: Soft, nontender, nondistended Extremities: 1+ edema bilaterally Musculoskeletal: Moving all extremities Neuro: No overt focal neurological deficits Skin: No rashes or bleeding Psych: Cooperative Assessment & Plan Assessment/Plan (1) Encounter for screening for malignant neoplasm of colon: PLAN: She was explained alternatives, risk, benefits including outstanding bleeding, infection, sepsis, perforation, need for emergent urgent . She will have an ASA of 2. 11/13/22 1022 <Electronically signed by Tee Cabrera DO> Cosigner Signature (if applicable): CC: Dr. Shahab Adams DO; Tee Cabrera DO~ Signed [facility] Work Phone: History and physical note Author Maria Garcia [facility] Note Date/Time June 11, 2024 12:2 9am [facility] Medical Records Department [address] [place] [id number] H&P Exam - Hospitalist 06/10/24 2345 MR#: [id number] Acct: [id number] Name: SAVANNAH AGUIRRE Rep #:[id number] : 1960 63 From: Maria Garcia MD PCP: Dr. Shahab Adams DO Status:ADM IN Location: [place] [address] HPI - General General Date of Admission: 06/11/24 Date of Service: 06/10/24 Chief Complaint: Dyspnea, chest pain. HPI Narrative The patient is a 63 y/o F w/ PMHx: Gout, Anxiety and Depression, Hypothyroidism,Rheumatoid arthritis, Fibromyalgia, Chronic migraines, Chronic pain syndrome w/ Hx spinal cord stimulator, CKD stage III unclear subtype per GFR trending, Obesity, HFpEF, GERD who presents to the [facility] ED on 06/10/24with history of dyspnea worsening over the last 6 weeks seen 4 weeks previously for it with an outpatient echocardiogram that was normal however today she feelsworse with chest burning sensation and increased phlegm in her throat and chest with persistent minor cough with no fevers or chills with dyspnea worse with exertion and unchanged lower extremity distal edema with self administration of albuterol inhaler without improvement prompting eventual ED evaluation. Patientreports chest discomfort primarily with deep inspiratory effort. She has been purposely taking more shallow breaths secondary to this. To the ED staff upon presentation she does report congestion and rhinorrhea. Per weight upon currentpresentation 197 pounds and noted to be on 05/09/2024 also 197 pounds. Patient denies any recent pain to her bilateral lower extremity/calf regions. She denies any severe swelling even transient to her legs. Workup in the ED included T98.4, heart 90, BP 205/91, respiratory rate 20, 84% on room air with improvement to 95% on 2 L nasal cannula, CBC with WBC 11.4, hemoglobin 15.2, platelet 180 without marked shift, D-dimer 3.20, troponin 37, BMP with BUN/creat21/1.34, GFR 44, glucose 127 chest x-ray with generalized interstitial prominence without focal consolidation, CTPA with acute bilateral lower lobe pulmonary emboli as above, no definite evidence of right heart strain, subtle generalized ground-glass opacities in the upper lung zones which may relate to edema/atelectasis versus pneumonitis, no focal consolidations, moderate hiatal hernia, EKG sinus rhythm with no acute evidence of ischemia. In the ED patient administered Reglan 5 mg IV x 1, DuoNeb therapy, hydralazine 20 mg IV x 1 and Lovenox 90 mg subcu x 1. [facility] Medical History Post-menopausal Depression Anxiety Thyroid disease Anemia Gastric reflux Non-smoker Leg cramps History of pain when walking Hypothyroid CKD (chronic kidney disease) Hypertension Infection of spinal cord stimulator Rheumatoid arthritis Chronic pain Arthritis Fibromyalgia Migraines Home Medications ?Medication ?Instructions ?Recorded ?Last Taken ?Type buprenorphine 20 mcg/hour weekly 1 patch transdermal Q WEEK PAIN 01/13/21 05/28/22 History transdermal patch (Butrans) hydrocodone-acetaminophen 5-325mg 1 tab PO Q6H PRN Jess n 01/13/21 11/13/22 07:00 History 5mg-325mg levothyroxine 88 mcg tablet 100 mcg PO DAILY 01/13/21 06/01/22 History (Synthroid) omeprazole 40 mg capsule,delayed 40 mg PO DAILY 06/01/22 History release potassium chloride 20 mEq 20 meq PO TID SUPPLEMENT 09/2606/01/22 History tablet,extended release(part/cryst) triamterene 37.5 1 cap PO DAILY Check with pr imary 01/13/21 06/01/22 History mg-hydrochlorothiazide 25 mg doctor capsule gabapentin 400 mg capsule 400 mg PO TID PAIN 05/08/21 06/01/22 History cholecalciferol (vitamin D3) 125 125 mcg PO DAILY SUPP LEMENT 06/01/22 06/01/22 History mcg (5,000 unit) capsule albuterol sulfate 90 mcg/actuation 2 puff inhalation Q 4H PRN 10/22/22 Unknown History aerosol inhaler (ProAir HFA) shortness of breath or wh eezing ferrous gluconate 324 mg (37.5 mg 324 mg PO DAILY 10/07 08/29 Unknown History iron) tablet magnesium 250 mg tablet 400 mg PO DINNER SUPPLEMENT 10/22/22 Unknown History PRIMAL DEFENCE 410 mg PO 1XD 11/12/22 Unkno wn History metoprolol succinate 50 mg 50 mg PO QHS 11/13/22 Unkno wn History tablet,extended release 24 hr adalimumab 40 mg/0.8 mL 40 mg subcut .1XWEEK 5 Unknown History subcutaneous pen kit (Humira Pen) allopurinol 300 mg tablet 300 mg PO DAILY 06/10/24 Unk nown History colchicine 0.6 mg tablet 0.6 mg PO DAILY 06/10/24 Unk nown History prednisone 5 mg tablet 15 mg PO DAILY 06/10/24 Unkn own History Allergy/AdvReac Type Severity Reaction Status Date / Time oxycodone Allergy Rash Verified 06/10/24 21:28 adhesive tape AdvReac Rash Verified 06/10/24 21:28 Family History (Updated 06/11/24 @ 00:[address] Maria Garcia MD) Mother Hypertension Colon polyps Father Lymphoma Surgical History Hx of hysterectomy History of carpal tunnel release Hx of thyroidectomy Hx of cholecystectomy Hx of tonsillectomy Social History household members: none Smoking Status: Never smoker alcohol intake: never substance use type: does not use ROS ROS Narrative Admission Review of Systems: CONSTITUTIONAL: No weight loss, fever, chills, + weakness or fatigue. HEENT: + Congestion, rhinorrhea. Eyes: No visual loss, blurred vision, double vision or yellow sclerae. Ears, Nose, Throat: No hearing loss, sneezing, sore throat. SKIN: No rash or itching, lesions, wounds. CARDIOVASCULAR: + Chest burning sensation, chronic distal edema. No palpitations, orthopnea, syncopal events. RESPIRATORY: + Dyspnea, mild cough with increased phlegm. No wheezing, hemoptysis. GASTROINTESTINAL: No anorexia, nausea, vomiting or diarrhea, abdominal pain, melena, BRBPR. GENITOURINARY: No dysuria, frequency, urgency or retention. NEUROLOGICAL: No headache, dizziness, syncope, paralysis, ataxia, numbness or tingling in the extremities, focal weakness, change in bowel or bladder control,seizure. MUSCULOSKELETAL: + muscle, back pain, joint pain or stiffness. HEMATOLOGIC: + Chronic anemia. No marked easy history of bleeding or bruising. LYMPHATICS: No enlarged nodes. No history of splenectomy. PSYCHIATRIC: + History of anxiety and depression. ENDOCRINOLOGIC: No reports of sweating, cold or heat intolerance. No polyuria orpolydipsia. ALLERGIES: No history of asthma, hives, eczema or rhinitis. Vital Signs Vital Signs Vital Signs: 06/10/24 21:26 06/10/24 21:27 06/10/24 21:28 Temperature 98.4 F 98.4 F Temperature Source Oral Oral Pulse Rate 90 90 Respiratory Rate 20 H 20 H Respiratory Effort Respiratory Pattern Blood Pressure 205/91 H 205/91 H Blood Pressure Mean 129 129 Pulse Ox 84 92 95 Oxygen Delivery Method Room Air Nasal Cannula Nasal Cannula Oxygen Flow Rate (L/min) 2 2 06/10/24 21:49 06/10/24 22:08 06/10/24 22:26 Temperature Temperature Source Pulse Rate 92 99 Respiratory Rate 20 H 22 H Respiratory Effort Respiratory Pattern Tachypnea Blood Pressure 185/83 H Blood Pressure Mean 117 Pulse Ox 95 92 Oxygen Delivery Method Nasal Cannula Nasal Cannula Oxygen Flow Rate (L/min) 2 2 06/10/24 22:27 06/10/24 22:48 06/10/24 23:00 Temperature 98.2 F 98 F Temperature Source Oral Oral Pulse Rate 98 95 Respiratory Rate 18 27 H Respiratory Effort Short of Breath Labored Respiratory Pattern Tachypnea Blood Pressure 187/79 H 185/76 H Blood Pressure Mean 115 112 Pulse Ox 99 95 Oxygen Delivery Method Nasal Cannula Nasal Cannula Nasal Cannula Oxygen Flow Rate (L/min) 2 2 2 06/10/24 23:00 Temperature Temperature Source Pulse Rate 95 Respiratory Rate 24 H Respiratory Effort Respiratory Pattern Blood Pressure 185/76 H Blood Pressure Mean 112 Pulse Ox 98 Oxygen Delivery Method Oxygen Flow Rate (L/min) Weight Weight: 197 lb Body Mass Index (BMI) 34.9 Physical Exam Narrative Physical Examination: General: Awake, alert, oriented x 3 and cooperative, seated upright in ED bed, fatigued, shivering, mildly uncomfortable appearing. Skin: Normal color, normal turgor, no icterus, no cyanosis. HEENT: AT/NC, EOMI, PERRLA, moderately dry MM, no carotid bruits or JVD noted. Lungs: Diminished, greater bases, mildly increased respiratory rate but no distress, very shallow breaths secondary to pain elicited with deep inspiratory effort per discussion with patient, no appreciated rales, ronchi or wheezing. Heart: Mildly tachycardic with regular rhythm; no gallop, rub audible. Abdomen: Soft, obese, NTTP, ND, mildly hyperactive BS, no appreciated HSM. Extremities: No cyanosis, no clubbing, no marked distal edema noted, no pain with palpation bilateral calf regions. Neurological: Patient awake, alert, oriented as noted, cognitive function intact; pupils equally reactive to light and accommodation, cranial nerves grossnormal, moving all 4 extremities, no focal deficits, strength severely globally decreased secondary to acute presentation. Psychiatric: Affect appears fatigued, shivering, no acute evidence of depressiveor anxiety feelings. Results Lab / Micro Data 06/10/24 22:21 06/10/24 22:21 Labs: Laboratory Results - last 24 hr 06/10/24 22:21: WBC 11.4 H, RBC 5.01, Hgb 15.2 H, Hct 45.7, MCV 91.2, MCH 30.3, MCHC 33.3, RDW Std Deviation 46.0 H, RDW Coeff of Hiro 13.8, Plt Count 180, MPV 10.1, Immature Gran % (Auto) 0.700, Neut % (Auto) 67.6, Lymph % (Auto) 16.3 L, [place] % (Auto) 10.3 H, Eos % (Auto) 4.4, Baso % (Auto) 0.7, Absolute Neuts (auto) 7.7, Absolute Lymphs (auto) 1.86, Nucleated RBC % 0, Sodium 141, Potassium 3.3, Chloride 102, Carbon Dioxide 25.2, Anion Gap 14, BUN 21 H, Creatinine 1.34 H, Estim Creat Clear Calc 44.39 L, Est GFR (MDRD) Non-Af 44 L, BUN/Creatinine Ratio 15.4, Glucose 127 H, Calcium 9.7, Troponin T High Sens 37 H D 06/10/24 22:29: D-Dimer Quant (PE/DVT) 3.20 H* Rhythm Strip Rhythm Strip: Sinus Rhythm Rate: 95 Ectopy: None Imaging Radiology Impression Chest X-Ray 06/10/24 22:36 IMPRESSION: Generalized interstitial prominence without focal consolidation. Reading Location: [facility] Assessment & Plan Assessment/Plan (1) Hypoxemia: (2) Pulmonary embolism: (3) Accelerated hypertension: PLAN: Plan The patient is a 63 y/o F w/ PMHx: Gout, Anxiety and Depression, Hypothyroidism,Rheumatoid arthritis, Fibromyalgia, Chronic migraines, Chronic pain syndrome w/ Hx spinal cord stimulator, CKD stage III unclear subtype per GFR trending, Obesity, HFpEF, GERD who presents to the [facility] ED on 06/10/24with history of dyspnea worsening over the last 6 weeks seen 4 weeks previously for it with an outpatient echocardiogram that was normal however today she feelsworse with chest burning sensation and increased phlegm in her throat and chest with persistent minor cough with no fevers or chills with dyspnea worse with exertion and unchanged lower extremity distal edema with self administration of albuterol inhaler without improvement prompting eventual ED evaluation. #1. Acute hypoxia secondary to Pulmonary Embolism: EKG without acute findings, CXR no acute process, D-dimer elevated, CTPA with acute bilateral lower lobe pulmonary emboli as above, no definite evidence of right heart strain, subtle generalized ground-glass opacities in the upper lung zones which may relate to edema/atelectasis versus pneumonitis, no focal consolidations, moderate hiatal hernia, troponin mildly elevated 37. No family history of hypercoaguable state.Patient notes no recent travel. No recent surgeries. Will admit to PCU, maintain on cardiac telemetry. ECHO performed 06/08/2024 with symptoms similar to current thus will not immediately repeat as no obvious strain on imaging. Will cycle cardiac enzymes, obtain BNP. Will continue therapeutic Lovenox regimen with pending AM insurance oral regimen investigation. COVID PCR and full respiratory panel requested. #2. Accelerated hypertension, suspected likely secondary #1: Continue home regimen including metoprolol, triamterene-hydrochlorothiazide, administered hydralazine 20 mg IV x 1 in the ED, if not improving with intervention #1 and add additional oral regimen, in the interim PRN hydralazine. #3. Indeterminate cardiac enzyme, likely associated with #1, #2, demand: Admission troponin 37, EKG with sinus rhythm with no acute evidence of ischemia,will maintain on telemetry, continue to cycle cardiac enzymes, echocardiogram recently performed 06/08/2024 as noted secondary to her recent symptoms, magnesiumlevel requested. Continue aspirin. #4. HFpEF: Noted in prior chart history, most recent echocardiogram 06/08/2024 with normal LV size, LV systolic function normal, LVEF 60%, trivial pericardial effusion, structurally normal valves, continue on baby aspirin, metoprolol, triamterene-hydrochlorothiazide, not on GURPREET/ARB nor statin therapy. #5. Chronic Kidney Disease Stage III, unclear subtype or GFR trending: Admission BUN/Cr 21/1.34, GFR 44, baseline renal function primarily 0.9-1.4, hasvacillated, repeat BMP in AM. #6. Rheumatoid arthritis: Complicated by chronic pain syndrome concurrently, per records on [facility] outpatient, previously had been on hydroxychloroquine but is no longer listed. Currently she has prednisone low-dose listed, will cautiously continue given anticoagulation as noted. Encourage continued outpatient follow-up with rheumatology as previously arranged. #7. Chronic pain syndrome chronic lumbar back pain/: History spinal cord stimulator unfortunately with previous infection, following with pain management, will continue Butrans patch, gabapentin, Leroy as needed regimen. Encourage follow-up with pain management as previously arranged. #8. Chronic iron deficiency anemia: Admission hemoglobin 15 point, MCV 91.2, baseline hemoglobin appears more recently 14 but in the past has vacillated 10-12 but labs are remote, continue iron supplementation and CBC trending. #9. Hypothyroidism: Will continue patient on levothyroxine regimen. #10. Anxiety and depression: Noted in chart history, per current list on a chronic regimen but clarified to be certain, encouraged continued outpatient follow-up as previously arranged. #11. Obesity: Weight loss and lifestyle changes encouraged. #12. GERD: Continue patient on PPI. #13. Gout: Will continue patient home allopurinol and colchicine regimen. #14. DVT prophylaxis: Will continue 80 initiated therapeutic Lovenox. #14. CODE status: Patient KEITH is her daughter who is present and living will is currently in place. Discussed CODE status at length including difference between FULL code, DNR-CCA and DNR-CC status. Following discussions about the differences in these status, requested Full Code status. Charges/Coding Visit Charges Inpatient E&M: 19439 Init Hosp L3 06/11/24 0029 <Electronically signed by Maria Garcia MD> Cosigner Signature (if applicable): CC: Dr. Maria Garcia MD; Dr. Shahab Adams, ~ Signed [facility] Work Phone: History and physical note Author Maria E Strickland [facility] Note Date/Time June 27, 2024 4:1 9pm [facility] Medical Records Department [address] [place] [id number] H&P Exam - Hospitalist 06/27/24 1609 MR#: [id number] Acct: [id number] Name: SAVANNAH AGUIRRE Rep #:[id number] : 1960 63 From: Maria E Strickland MD PCP: Dr. Shahab Adams, Status:REG ER Location: ED HPI - General General Date of Admission: 06/27/24 Date of Service: 06/27/24 Chief Complaint: Increasing shortness of breath HPI Narrative SAVANNAH AGUIRRE, is a 63-year-old female with history of chronic pain, GERD, hypothyroidism, hypertension, RA who presented to [facility] ED 06/27/2024 due to increasing dyspnea since discharge on June 12. Patient had recent admission due to hypoxia which was suspected to be due to bilateral pulmonary emboli, she is at 5 L at the time of admission and at that time CTA showed bilateral lower lobe emboli with no significant heart strain and subsequent echo with EF of 60% with no heart strain, she was transitioned to Eliquis and discharged home. Patient discharged home on 2 L of nasal cannula and in the ED was on 4 L to maintain sats of 90%. CBC shows white blood cell count of 17.5, the patient is on prednisone so unclear etiology, temp 99.2 with heart rate 107, blood pressure 157/75, respiratory rate 20 with pulse ox initially 91% on 4 L nasal cannula. Patient denies missing any doses of anticoagulation. COVID/flu/RSV negative. Chest x-ray queried early left lower lobe infiltrate. Given her increased shortness of breath and increased O2 requirement with suspected pneumonia hospitalist contacted for admission. Patient evaluated bedside. She reports that she has indeed had increasing shortness of breath over the past couple weeks with increased cough and chills, feels little bit better than she did when she first came in the ED but still feels unwell especially when she tries to get up and move around. Denies any swelling in the legs, no chest pain, is on prednisone through her rheumatologistand is being weaned, started at 15 and was weaned to 12 yesterday. [facility] Medical History Post-menopausal Depression Anxiety Thyroid disease Anemia Gastric reflux Non-smoker Leg cramps History of pain when walking Hypothyroid CKD (chronic kidney disease) Hypertension Infection of spinal cord stimulator Rheumatoid arthritis Chronic pain Arthritis Fibromyalgia Migraines Home Medications ?Medication ?Instructions ?Recorded ?Last Taken ?Type buprenorphine 20 mcg/hour weekly 1 patch transdermal Q WEEK PAIN 01/13/21 06/25/24 History transdermal patch (Butrans) hydrocodone-acetaminophen 5-325mg 1 tab PO Q6H PRN Jess n 01/13/21 06/27/24 History 5mg-325mg levothyroxine 88 mcg tablet 88 mcg PO DAILY 01/13/21 0 06/27/24 History (Synthroid) omeprazole 40 mg capsule,delayed 40 mg PO DAILY 06/27/24 History release potassium chloride 20 mEq 20 meq PO .COMPLEX SUPPLEMEN T 01/13/21 06/27/24 History tablet,extended release(part/cryst) triamterene 37.5 1 cap PO DAILY Check with pr imary 01/13/21 06/27/24 History mg-hydrochlorothiazide 25 mg doctor capsule gabapentin 400 mg capsule 400 mg PO TID PAIN 05/08/21 06/27/24 History cholecalciferol (vitamin D3) 125 125 mcg PO DAILY SUPP LEMENT 06/01/22 06/27/24 History mcg (5,000 unit) capsule albuterol sulfate 90 mcg/actuation 2 puff inhalation Q 4H PRN 10/22/22 06/27/24 History aerosol inhaler (ProAir HFA) shortness of breath or wh eezing magnesium 250 mg tablet 400 mg PO DINNER SUPPLEMENT 10/22/22 06/26/24 History PRIMAL DEFENCE 410 mg PO 1XD probiotic 08/2906/27/24 History metoprolol succinate 50 mg 50 mg PO QHS 11/13/2206/26 History tablet,extended release 24 hr allopurinol 300 mg tablet 300 mg PO DAILY 06/10/24 History colchicine 0.6 mg tablet 0.6 mg PO DAILY 06/10/24 Unk nown History adalimumab 40 mg/0.4 mL 40 mg subcut QWEEK 06/27/24 06/25/24 History subcutaneous pen kit (Humira(CF) Pen) apixaban 5 mg (74 tabs) tablets in 5 mg PO Q12H 06/27/24 History a dose pack (Eliquis DVT-PE Treat 30D Start) ferrous gluconate 324 mg (38 mg 324 mg PO DAILY 06/27/24 History iron) tablet prednisone 1 mg tablet 2 mg PO DAILY 06/27/2406/27 History prednisone 10 mg tablet 10 mg PO DAILY 06/27/2406/08 History sulfasalazine 500 mg tablet 500 mg PO BID 06/27/24 Unk nown History Allergy/AdvReac Type Severity Reaction Status Date / Time oxycodone Allergy Rash Verified 06/27/24 13:50 adhesive tape AdvReac Rash Verified 06/27/24 13:50 Family History Mother Hypertension Colon polyps Father Lymphoma Surgical History Hx of hysterectomy History of carpal tunnel release Hx of thyroidectomy Hx of cholecystectomy Hx of tonsillectomy Social History household members: none Smoking Status: Never smoker alcohol intake: never substance use type: does not use ROS ROS Narrative General: Has had some chills HENT: Denies headache, denies stuffy nose, denies sore throat EYES: Denies changes in vision Resp: Has been coughing and had increased shortness of breath Cardiac: Denies chest pain GI: Denies abdominal pain, denies changes in bowel, denies nausea/vomiting : Denies changes in urination Extremity: Denies swelling MSK: Denies weakness Neuro: Denies any numbness/tingling Heme: Denies any bleeding or bruising Skin: Denies rashes Psychiatric: No complaints voiced Vital Signs Vital Signs Vital Signs: 06/27/24 13:51 06/27/24 14:06 06/27/24 14:08 Temperature 99.2 F H 99.2 F H Temperature Source Oral Oral Pulse Rate 107 H 102 H Respiratory Rate 20 H 22 H Respiratory Effort Respiratory Depth Respiratory Pattern Blood Pressure 157/75 H 149/72 H Blood Pressure Mean 102 97 Pulse Ox 91 95 95 Oxygen Delivery Method Nasal Cannula Nasal Cannula Nasal Cannula Oxygen Flow Rate (L/min) 4 3 3 06/27/24 14:12 06/27/24 14:20 06/27/24 14:30 Temperature Temperature Source Pulse Rate 100 Respiratory Rate 25 H Respiratory Effort Short of Breath Respiratory Depth Deep Respiratory Pattern Tachypnea Normal Blood Pressure 119/56 L Blood Pressure Mean 75 Pulse Ox Oxygen Delivery Method Nasal Cannula Oxygen Flow Rate (L/min) 3 06/27/24 14:36 06/27/24 14:47 06/27/24 15:00 Temperature Temperature Source Pulse Rate 118 H 117 H Respiratory Rate 23 H 34 H Respiratory Effort Respiratory Depth Respiratory Pattern Blood Pressure Blood Pressure Mean Pulse Ox 94 93 94 Oxygen Delivery Method Nasal Cannula Nasal Cannula Oxygen Flow Rate (L/min) 3 3 06/27/24 16:00 Temperature 98.2 F Temperature Source Pulse Rate 110 H Respiratory Rate 23 H Respiratory Effort Respiratory Depth Respiratory Pattern Blood Pressure 144/74 H Blood Pressure Mean 97 Pulse Ox 96 Oxygen Delivery Method Oxygen Flow Rate (L/min) Weight Weight: 85.5 kg Body Mass Index (BMI) 33.3 Physical Exam Narrative General: Alert, oriented, no apparent distress HEENT: Atraumatic, normocephalic Eyes: Anicteric, normal conjunctiva, extraocular movements grossly intact Neck: Supple Respiratory: Increased respiratory effort, coarse bilaterally Cardiovascular: Sinus tachycardia GI: Soft, nontender, nondistended Extremities: No edema Musculoskeletal: Moving all extremities Neuro: No overt focal neurological deficits Skin: No rashes appreciated Psych: Cooperative Results Lab / Micro Data 06/27/24 14:04 06/27/24 14:04 Labs: Laboratory Results - last 24 hr 06/27/24 14:04: WBC 17.5 H, RBC 4.84, Hgb 14.7, Hct 43.3, MCV 89.5, MCH 30.4, MCHC 33.9, RDW Std Deviation 43.8, RDW Coeff of Hiro 13.4, Plt Count 304, MPV 10.0, Immature Gran % (Auto) 0.600, Neut % (Auto) 79.1 H, Lymph % (Auto) 5.9 L, Socorro % (Auto) 6.2, Eos % (Auto) 7.8 H, Baso % (Auto) 0.4, Absolute Neuts (auto) 13.8 H, Absolute Lymphs (auto) 1.04, Nucleated RBC % 0, Sodium 136, Potassium 4.0, Chloride 96 L, Carbon Dioxide 28.0, Anion Gap 12, BUN 17, Creatinine 1.04, Estim Creat Clear Calc 55.88, Est GFR (MDRD) Non-Af 60, BUN/Creatinine Ratio 16.7, Glucose 197 H, Lactic Acid 1.6, Calcium 9.7, Total Bilirubin 0.70, AST 38 H, ALT 33, Alkaline Phosphatase 142 H, Total Protein 6.7, Albumin 3.5, Globulin 3.2, Albumin/Globulin Ratio 1.1 Micro: Microbiology 06/27/24 14:04 Mucosa - Nose SARS-CoV-2, Influenza & RSV (PCR) - Final ABG Data ABG results: ABG 06/27/24 14:42 Specimen Type ART Sample Site R Radial pH 7.47 H Bicarbonate Actual 29.0 H Total CO2 30 Base Excess 5 H O2 Saturation 93 L O2 % 3.0 ABG pCO2 39.8 ABG pO2 62 L Laury Test Positive O2 Delivery Device Cannula Vent Mode Not entered Imaging Radiology Impression Chest X-Ray 06/27/24 14:40 IMPRESSION: Increased markings in the posterior medial segment of the left lower lobe. Early infiltrate should be ruled out. [facility] Assessment & Plan Assessment/Plan (1) Left lower lobe pneumonia: PLAN: Plan # Left lower lobe pneumonia -Imaging: Chest x-ray query as early left lower lobe infiltrate, this does fit clinically for patient -DuoNebs and as needed albuterol -Sputum culture, COVID negative, respiratory panel ordered -Urine antigens -Mucinex, I/S - Will treat more broadly with Levaquin given patient's recent admission # Recent bilateral PEs - Continue Eliquis #GERD -Continue PPI #Hypothyroidism -Continue Synthroid #Hypertension - Will continue patient's home medications # Chronic pain -Continue patient's home regimen #Gout -Continue home allopurinol # History of RA - Patient on prednisone taper currently and was just decreased to 12 mg - She does have some scattered wheezes, will place on 40 for now, no history of COPD or asthma that I am aware of that necessitate IV steroids unless she continues to have wheezing and does not improve or is very slow to improve - Based on med list patient has not started the sulfasalazine yet #DVT ppx: Patient on full dose Eliquis Maria E Strickland MD Charges/Coding Visit Charges Inpatient E&M: 03653 Init Hosp L2 06/27/24 1619 <Electronically signed by Maria E Strickland MD> Cosigner Signature (if applicable): CC: Dr. Shahab Adams DO; Dr. Maria E Strickland MD~ Signed [facility] Work Phone: History and physical note Author Bill Camacho [facility] Note Date/Time August 01, 2024 3:22p m [facility] Medical Records Department [address] [address] H&P Exam - Hospitalist 08/01/24 1512 MR#: [id number] Acct: [id number] Name: SAVANNAH AGUIRRE Rep #:[id number] : 1960 63 From: Bill Camacho DO PCP: Dr. Shahab Adams DO Status:ADM IN Location: [place] [id number] HPI - General General Date of Admission: 08/01/24 Date of Service: 08/01/24 Chief Complaint: Shortness of breath HPI Narrative SAVANNAH AGUIRRE, is a 63 F who presents with shortness of breath. This is a 3-year-old female with cellulitis and battling pneumonia as well as a recent PE. Was recently treated for MRSA pneumonia this month and was on Bactrim and was not getting better for a few days would start getting worse over the past most recent days. So she presented to the emergency room where is noted that she wasseptic. Chest x-ray showed chronic changes but there is concern about pneumoniagiven her history and she received ceftriaxone and azithromycin. The hospital service was contacted for admission. Patient did not receive 30 cc/kg of IV fluid because of concern for volume overload. Please refer to the ED physician's note for further description. [facility] Medical History MRSA (methicillin resistant staph aureus) culture positive Anticoagulant long-term use History of hypothyroidism Elevated blood-pressure reading without diagnosis of hypertension SIRS (systemic inflammatory response syndrome) Sinus tachycardia Acute on chronic hypoxic respiratory failure Acute bronchospasm Pulmonary embolus Left lower lobe pneumonia Post-menopausal Depression Anxiety Thyroid disease Anemia Gastric reflux Non-smoker Leg cramps History of pain when walking Hypothyroid CKD (chronic kidney disease) Hypertension Infection of spinal cord stimulator Rheumatoid arthritis Chronic pain Arthritis Fibromyalgia Migraines Home Medications ?Medication ?Instructions ?Recorded ?Last Taken ?Type buprenorphine 20 mcg/hour weekly 1 patch transdermal S U PAIN 01/13/21 07/31/24 History transdermal patch (Butrans) hydrocodone-acetaminophen 5-325mg 1 tab PO Q6H PRN Jess n 01/13/21 07/08/24 History 5mg-325mg levothyroxine 88 mcg tablet 88 mcg PO DAILY 01/13/21 0 08/01/24 History (Synthroid) omeprazole 40 mg capsule,delayed 40 mg PO DAILY 08/01/24 History release potassium chloride 20 mEq 20 meq PO QPM SUPPLEMENT 09/2607/31/24 History tablet,extended release(part/cryst) triamterene 37.5 1 cap PO DAILY Check with pr imary 01/13/21 08/01/24 History mg-hydrochlorothiazide 25 mg doctor capsule gabapentin 400 mg capsule 400 mg PO TID PAIN 05/08/21 08/01/24 History cholecalciferol (vitamin D3) 125 125 mcg PO DAILY SUPP LEMENT 06/01/22 08/01/24 History mcg (5,000 unit) capsule PRIMAL DEFENSE 410 mg PO 1XD probiotic 08/2908/01/24 History metoprolol succinate 50 mg 50 mg PO QHS 11/13/2207/31 History tablet,extended release 24 hr allopurinol 300 mg tablet 300 mg PO DAILY 06/10/24 History adalimumab 40 mg/0.4 mL 40 mg subcut FERNANDEZ 06/27/24 History subcutaneous pen kit (Humira(CF) Pen) ferrous gluconate 324 mg (38 mg 324 mg PO DAILY 08/01/24 History iron) tablet prednisone 10 mg tablet 10 mg PO DAILY 06/27/2407/08 History albuterol sulfate 2.5 mg/3 mL 2.5 mg (3 mL) inhalation Q4H PRN 07/08/24 Unknown Rx (0.083 %) solution for nebulization #25 vials albuterol sulfate 90 mcg/actuation 2 inh inhalation Q4 H PRN shortness 07/08/24 Unknown History breath activated powder inhaler of breath or wheezing nystatin 100,000 unit/mL oral 2 ml PO BID #100 mL 05/03 Unknown Rx suspension apixaban 5 mg tablet (Eliquis) 5 mg PO BID 08/01/24 History magnesium oxide 400 mg (241.3 mg 400 mg PO QPM 5 07/31/24 History magnesium) tablet potassium chloride 20 mEq 40 meq PO DAILY 08/01/24 History tablet,extended release(part/cryst) (Klor-Con M) Allergy/AdvReac Type Severity Reaction Status Date / Time oxycodone Allergy Rash Verified 08/01/24 12:45 adhesive tape AdvReac Rash Verified 08/01/24 12:45 Family History Mother Hypertension Colon polyps Father Lymphoma Surgical History Hx of hysterectomy History of carpal tunnel release Hx of thyroidectomy Hx of cholecystectomy Hx of tonsillectomy Social History household members: none Smoking Status: Never smoker alcohol intake: never substance use type: does not use ROS ROS Narrative Denies any sore throat.. Fever or chills. Malaise. All review of systems werenegative except as mentioned above in the history of present illness and the other review of systems. Vital Signs Vital Signs Vital Signs: 08/01/24 12:44 08/01/24 12:44 08/01/24 12:47 Temperature 37.2 C 37.2 C Temperature Source Temporal Oral Pulse Rate 105 H 88 Respiratory Rate 30 H 24 H Respiratory Effort Respiratory Pattern Blood Pressure 139/77 H 133/76 H Blood Pressure Mean 97 95 Pulse Ox 89 91 100 Oxygen Delivery Method Nasal Cannula Nasal Cannula Nasal Cannula Oxygen Flow Rate (L/min) 3 3 3 08/01/24 12:53 08/01/24 13:20 08/01/24 13:47 Temperature 37.2 C Temperature Source Oral Pulse Rate 89 116 H Respiratory Rate 16 20 H Respiratory Effort Short of Breath Respiratory Pattern Normal Blood Pressure 111/61 Blood Pressure Mean 77 Pulse Ox 96 Oxygen Delivery Method Nasal Cannula Nasal Cannula Oxygen Flow Rate (L/min) 3 3 08/01/24 14:44 Temperature 37.3 C Temperature Source Pulse Rate 113 H Respiratory Rate 20 H Respiratory Effort Respiratory Pattern Blood Pressure 138/76 H Blood Pressure Mean 96 Pulse Ox 96 Oxygen Delivery Method Oxygen Flow Rate (L/min) Weight Weight: 83.5 kg Body Mass Index (BMI) 32.5 Physical Exam Narrative - Physical Exam General: Alert, Oriented x3, Cooperative. Up in bed on oxygen. No respiratory distress. No conversational dyspnea. HEENT: Atraumatic, PERRLA, EOMI, Normocephalic Oral: Moist Mucosa, No Gingival or Mucosal Lesions/ Ulcerations Neck: Supple, No JVD, Negative Carotid Bruits Lungs: Clear to auscultation, Normal air movement Cardiovascular: Regular rate, Normal S1, Normal S2, No murmurs Abdomen: Bowel Sounds Present, Soft, Non Tender, Non-Distended, No Hepato-splenomegaly Extremities: No clubbing, No cyanosis, No edema, Capillary Refill Less than 3 Seconds Skin: No rashes, No breakdown Musculoskeletal: No Tenderness to Palpation of Joints or Extremities Neurological: Moves extremities spontaneously Psych/Mental Status: Normal Affect, Appropriate Results Lab / Micro Data Attestation: I reviewed the patient's lab results. 08/01/24 12:57 08/01/24 12:57 Labs: Laboratory Results - last 24 hr 08/01/24 12:57: WBC 16.0 H, RBC 4.67, Hgb 14.0, Hct 43.2, MCV 92.5, MCH 30.0, MCHC 32.4, RDW Std Deviation 47.8 H, RDW Coeff of Hiro 14.3, Plt Count 290, MPV 10.0, Immature Gran % (Auto) 0.600, Neut % (Auto) 82.6 H, Lymph % (Auto) 2.8 L, Socorro % (Auto) 5.2, Eos % (Auto) 8.2 H, Baso % (Auto) 0.6, Absolute Neuts (auto) 13.2 H, Absolute Lymphs (auto) 0.44 L, Nucleated RBC % 0, Sodium 137, Potassium 4.3, Chloride 99, Carbon Dioxide 24.0, Anion Gap 14, BUN 14, Creatinine 1.33 H, Estim Creat Clear Calc 43.17 L, Est GFR (MDRD) Non-Af 44 L, BUN/Creatinine Ratio10.3, Glucose 147 H, Calcium 9.7, Total Bilirubin 0.56, AST 46 H, ALT 37 H, Alkaline Phosphatase 123 H, Total Protein 6.5, Albumin 3.6, Globulin 2.9, Albumin/Globulin Ratio 1.2 08/01/24 13:13: Lactic Acid 2.7 H* Micro: Microbiology 08/01/24 13:15 Mucosa - Nose SARS-CoV-2, Influenza & RSV (PCR) - Final Rhythm Strip Rhythm Strip: Sinus Tach Rate: 102 Imaging Radiology Impression Chest X-Ray 08/01/24 13:55 IMPRESSION: Stable bibasilar interstitial prominence, compatible with mild chronic interstitial abnormality, trace edema or pneumonitis. Reading Location: [facility] Assessment & Plan Assessment/Plan (1) Pneumonia: PLAN: Suspect gram-negative and/or MRSA given her recent hospitalizations and recent MRSA pneumonia Pulmonary toilet. Antibiotics with pip-tazo and vancomycin for now. Check sputum culture, strep and Legionella antigens, COVID/RSV/influenza (2) Sepsis: PLAN: Secondary to pneumonia. Present on admission SIRS criteria: 3 out of 4 with white cells of 16,000, respiration rate 24, heartrate of 116 Patient hemodynamically stable though however. There was concern about fluid overload and patient had an echocardiogram back in June but did show a trivial pericardial effusion so I concur with the ED physician that 30 cc/kg of IV fluidmay lead to other problems such as heart failure. No need for pressors. PLAN: Plan Elevated creatinine: Not meeting the criteria of CE but her creatinine is 1.33 with a baseline 0.9. Will hold off on her combo diuretic pill (also her potassium replacement since those are being held) and I will give her a liter ofIV fluids. Chronic conditions * PE: Continue with apixaban * Gout: Continue allopurinol * Hypothyroidism: Continue levothyroxine * Rheumatoid arthritis: Holding off on her Humira for now. Continue with her daily prednisone. If though if patient does become hypotensive then she would require eventually stress dose steroids. VTE prophylaxis: Not indicated as patient is already anticoagulated. CODE STATUS: Addressed with the patient. Patient wishes to be full code. Disposition: Anticipate stay greater than 2 midnights Charges/Coding Visit Charges Inpatient E&M: [address]1062 [place] [address] 08/01/24 1520 <Electronically signed by Bill Camacho DO> Cosigner Signature (if applicable): CC: Dr. Bill Camacho DO; Dr. Shahab Adams DO~ Signed ADDENDUM by Dr. Bill Camacho DO on 08/01/24 at 1522 Addendum On exam patient had thrush on her palate as well as posterior pharynx. Patient had been complaining of trouble swallowing which I think is attributable to her thrush. I would expect that with adequate treatment of her thrush that the her difficulty swallowing should improve. I do not feel that there is an indicationfor speech therapy at this time. Patient denies any vaginal discharge. 08/01/24 1522<Electronically signed by Bill Camacho DO> Cosigner Signature (if applicable): cc: Dr. Bill Camacho DO; Dr. Shahab Adams DO ~* Signed [facility] Work Phone: Hospital Discharge instructionsAmbulatory Orders* Hematology Location: None [facility] Work Phone: Reason for referral (narrative)* Diagnostic Procedure Only (Routine) - Closed Specialty Diagnoses / Procedures Referred By Contac t Referred To Contact XR IMAGING Diagnoses Pain in joint, multiple sites Procedures XR SHOULDER GENERAL 3V OR MORE AP/TRUE AP/OTHER RIGHT RADEX SHOULDER COMPLETE MINIMUM 2 VIEWS Gerson Mandujano APRN.[employer] [address] [place] [address] [place] [address] Referral ID Status Reason Start Date Expiration Date V isits Requested Visits Authorized [id number] Closed Auto-Generate d Referral 11/21/2022 12/21/2023 1 1 * Diagnostic Procedure Only (Routine) - Closed Specialty Diagnoses / Procedures Referred By Contac t Referred To Contact XR IMAGING Diagnoses Pain in joint, multiple sites Procedures XR SHOULDER GENERAL 3V OR MORE AP/TRUE AP/OTHER LEFT RADEX SHOULDER COMPLETE MINIMUM 2 VIEWS Gerson Mandujano APRN.[employer] [address] [place] [phone] [place] [address] Referral ID Status Reason Start Date Expiration Date V isits Requested Visits Authorized [id number] Closed Auto-Generate d Referral 11/21/2022 12/21/2023 1 1 * Diagnostic Procedure Only (Routine) - Closed Specialty Diagnoses / Procedures Referred By Contac t Referred To Contact XR IMAGING Diagnoses Pain in joint, multiple sites Procedures XR FOOT GENERAL 3V AP/LAT/OBL BILATERAL RADEX FOOT COMPLETE MINIMUM 3 VIEWS Gerson Mandujano APRN.[employer] [address] [place] [phone] [place] [address] Referral ID Status Reason Start Date Expiration Date V isits Requested Visits Authorized [id number] Closed Auto-Generate d Referral 11/21/2022 12/21/2023 1 1 * Diagnostic Procedure Only (Routine) - Closed Specialty Diagnoses / Procedures Referred By Contac t Referred To Contact XR IMAGING Diagnoses Pain in joint, multiple sites Procedures XR WRIST GENERAL 3V PA/LAT/OBL BILATERAL RADEX WRIST COMPLETE MINIMUM 3 VIEWS Gerson Mandujano APRN.[employer] [address] [place] [phone] [place] [address] Referral ID Status Reason Start Date Expiration Date V isits Requested Visits Authorized [id number] Closed Auto-Generate d Referral 11/21/2022 12/21/2023 1 1 * Diagnostic Procedure Only (Routine) - Closed Specialty Diagnoses / Procedures Referred By Contac t Referred To Contact XR IMAGING Diagnoses Pain in joint, multiple sites Procedures XR HAND GENERAL 3V PA/LAT/OBL BILATERAL RADEX HAND MINIMUM 3 VIEWS Gerson Mandujano, REWORK OPERATOR.BILL POSTER INSTALLER [address] [phone] [place] [address] Referral ID Status Reason Start Date Expiration Date V isits Requested Visits Authorized [id number] Closed Auto-Generate d Referral 11/21/2022 12/21/2023 1 1 [facility] for referral (narrative)* Diagnostic Procedure Only (Routine) - Closed Specialty Diagnoses / Procedures Referred By Contac t Referred To Contact XR IMAGING Diagnoses Pain in joint, multiple sites Procedures XR SHOULDER GENERAL 3V OR MORE AP/TRUE AP/OTHER RIGHT RADEX SHOULDER COMPLETE MINIMUM 2 VIEWS Gerson Mandujano APRN.BILL POSTER INSTALLER [address] [place] [address] [place] [address] Referral ID Status Reason Start Date Expiration Date V isits Requested Visits Authorized [id number] Closed Auto-Generate d Referral 11/21/2022 12/21/2023 1 1 * Diagnostic Procedure Only (Routine) - Closed Specialty Diagnoses / Procedures Referred By Contac t Referred To Contact XR IMAGING Diagnoses Pain in joint, multiple sites Procedures XR SHOULDER GENERAL 3V OR MORE AP/TRUE AP/OTHER LEFT RADEX SHOULDER COMPLETE MINIMUM 2 VIEWS Gerson Mandujano APRN.BILL POSTER INSTALLER [address] [phone] [place] [address] Referral ID Status Reason Start Date Expiration Date V isits Requested Visits Authorized [id number] Closed Auto-Generate d Referral 11/21/2022 12/21/2023 1 1 * Diagnostic Procedure Only (Routine) - Closed Specialty Diagnoses / Procedures Referred By Contac t Referred To Contact XR IMAGING Diagnoses Pain in joint, multiple sites Procedures XR FOOT GENERAL 3V AP/LAT/OBL BILATERAL RADEX FOOT COMPLETE MINIMUM 3 VIEWS Gerson Mandujano APRN.BILL POSTER INSTALLER [address] [phone] [place] [address] Referral ID Status Reason Start Date Expiration Date V isits Requested Visits Authorized [id number] Closed Auto-Generate d Referral 11/21/2022 12/21/2023 1 1 * Diagnostic Procedure Only (Routine) - Closed Specialty Diagnoses / Procedures Referred By Contac t Referred To Contact XR IMAGING Diagnoses Pain in joint, multiple sites Procedures XR WRIST GENERAL 3V PA/LAT/OBL BILATERAL RADEX WRIST COMPLETE MINIMUM 3 VIEWS Gerson Mandujano APRN.BILL POSTER INSTALLER [address] [place] [address] [place] [address] Referral ID Status Reason Start Date Expiration Date V isits Requested Visits Authorized [id number] Closed Auto-Generate d Referral 11/21/2022 12/21/2023 1 1 * Diagnostic Procedure Only (Routine) - Closed Specialty Diagnoses / Procedures Referred By Contac t Referred To Contact XR IMAGING Diagnoses Pain in joint, multiple sites Procedures XR HAND GENERAL 3V PA/LAT/OBL BILATERAL RADEX HAND MINIMUM 3 VIEWS Gerson Mandujano APRN.RAFAEL [address] [place] [address] [facility] [place] [address] Referral ID Status Reason Start Date Expiration Date V isits Requested Visits Authorized [id number] Closed Auto-Generate d Referral 11/21/2022 12/21/2023 1 1 [facility]No reason for referral information availableWMercy Health [facility] Work Phone: Reason for visit Narrative* Diagnostic Procedure Only (Routine) - Closed Specialty Diagnoses / Procedures Referred By Contac t Referred To Contact XR IMAGING Diagnoses Pain in joint, multiple sites Procedures XR SHOULDER GENERAL 3V OR MORE AP/TRUE AP/OTHER RIGHT RADEX SHOULDER COMPLETE MINIMUM 2 VIEWS Gerson Mandujano APRN.BILL POSTER INSTALLER [address] [place] [id number] Xr Imaging [facility]95 Referral ID Status Reason Start Date Expiration Date V isits Requested Visits Authorized [id number] Closed Auto-Generate d Referral 11/21/2022 12/21/2023 1 1 [facility] Chief Complaint and Reason for Visit Chief Complaint LUMBER SPINE PAIN- COPY PCP Reason for Visit Scoliosis due to deg enerative disease of spine in adult patient Chief Complaint PAIN- COPY PCP BACK, MUSCLE PN/RX HERE LUMBAR ARTHROPATHY/SPONDYLOSIS/STENOSIS Chief Complaint BACK, MUSCLE PN/RX H ERE LUMBAR ARTHROPATHY/SPONDYLOSIS/STENOSIS Lumbar spine PAIN- COPY PCP Reason for Visit Scoliosis due to deg enerative disease of spine in adult patient Chief Complaint Lumbar spine PAIN- COPY PCP Reason for Visit Scoliosis due to deg enerative disease of spine in adult patient Chief Complaint PAIN- COPY PCP Chief Complaint SPINAL STIMULATOAR I NFECTION Reason for Visit Infection of spinal cord stimulator Chief Complaint LUMBER SPINAL CORD S TIMULATOR, CONCERN FOR INFXN SPINAL STIMULATOAR INFECTION LUMBER SPINAL CORD STIMULATOR, CONCERN FOR INFXN LUMBER SPINAL CORD STIMULATOR, CONCERN FOR INFXN Reason for Visit Infection of spinal cord stimulator Chief Complaint LUMBER SPINAL CORD S TIMULATOR, CONCERN FOR INFXN SPINAL STIMULATOAR INFECTION LUMBER SPINAL CORD STIMULATOR, CONCERN FOR INFXN LUMBER SPINAL CORD STIMULATOR, CONCERN FOR INFXN LUMBER SPINAL CORD STIMULATOR, CONCERN FOR INFXN Reason for Visit Infection of spinal cord stimulator Chief Complaint LUMBER SPINAL CORD S TIMULATOR, CONCERN FOR INFXN SPINAL STIMULATOAR INFECTION AM EKG LUMBER SPINAL CORD STIMULATOR, CONCERN FOR INFXN LUMBER SPINAL CORD STIMULATOR, CONCERN FOR INFXN LUMBER SPINAL CORD STIMULATOR, CONCERN FOR INFXN Chief Complaint Amb Documentation Disorder of bone density and structure Chief Complaint Amb Documentation Disorder of bone density and structure Reason for Visit Encounter for screen ing for malignant neoplasm of colon Chief Complaint Admit Date SOB May 09, 2024 12:4 9pm DYSPNEA June 08, 2024 10:4 5am HYPOXIA PE ACCEL HTN June 11, 2024 12: 17am Reason for Visit Admit Date Accelerated hypertension June 11, 2024 12:17am Hypoxemia June 11, 2024 12:1 7am Pulmonary embolism June 11, 2024 12:1 7am Chief Complaint Admit Date SOB May 09, 2024 12:4 9pm DYSPNEA June 08, 2024 10:4 5am HYPOXIA PE ACCEL HTN June 10, 2024 11: 48pm HYPOXIA PE ACCEL HTN June 11, 2024 12: 17am HYPOXIA PE ACCEL HTN June 11, 2024 11: 28am Reason for Visit Admit Date Accelerated hypertension June 10, 2024 11:48pm Hypoxemia June 10, 2024 11:4 8pm Pulmonary embolism June 10, 2024 11:4 8pm Chief Complaint Admit Date SOB May 09, 2024 12:4 9pm DYSPNEA June 08, 2024 10:4 5am HYPOXIA PE ACCEL HTN June 10, 2024 11: 48pm HYPOXIA PE ACCEL HTN June 11, 2024 12: 17am HYPOXIA PE ACCEL HTN June 11, 2024 11: 28am HYPOXIA PE ACCEL HTN June 12, 2024 9:4 9am Chief Complaint Admit Date SOB May 09, 2024 12:4 9pm DYSPNEA June 08, 2024 10:4 5am HYPOXIA PE ACCEL HTN June 10, 2024 11: 48pm HYPOXIA PE ACCEL HTN June 11, 2024 12: 17am HYPOXIA PE ACCEL HTN June 11, 2024 11: 28am HYPOXIA PE ACCEL HTN June 12, 2024 9:4 9am PNEUMONIA June 27, 2024 4:0 9pm Reason for Visit Admit Date Hypoxemia June 10, 2024 11:4 8pm Pulmonary embolism June 10, 2024 11:4 8pm Accelerated hypertension June 10, 2024 11:48pm Acute bronchospasm June 27, 2024 4:0 9pm Anticoagulant long-term use June 27, 2024 4:09pm Elevated blood-pressure read ing without diagnosis of hypertension June 27, 2024 4:09pm History of hypothyroidism June 27 4:09pm Left lower lobe pneumonia June 27 4:09pm Pulmonary embolus June 27, 2024 4:0 9pm Sinus tachycardia June 27, 2024 4:0 9pm SIRS (systemic inflammatory response syn drome) June 27, 2024 4:09pm Acute on chronic hypoxic respiratory libertad lure June 27, 2024 4:09pm Chief Complaint Admit Date SOB May 09, 2024 12:4 9pm DYSPNEA June 08, 2024 10:4 5am HYPOXIA PE ACCEL HTN June 10, 2024 11: 48pm HYPOXIA PE ACCEL HTN June 11, 2024 12: 17am HYPOXIA PE ACCEL HTN June 11, 2024 11: 28am HYPOXIA PE ACCEL HTN June 12, 2024 9:4 9am PNEUMONIA June 27, 2024 4:0 9pm Pneumonia June 28, 2024 6:2 2pm Chief Complaint Admit Date SOB May 09, 2024 12:4 9pm DYSPNEA June 08, 2024 10:4 5am HYPOXIA PE ACCEL HTN June 10, 2024 11: 48pm HYPOXIA PE ACCEL HTN June 11, 2024 12: 17am HYPOXIA PE ACCEL HTN June 11, 2024 11: 28am HYPOXIA PE ACCEL HTN June 12, 2024 9:4 9am PNEUMONIA June 27, 2024 4:0 9pm Pneumonia June 28, 2024 6:2 2pm Pneumonia June 29, 2024 4:3 3pm SOB July 08, 2024 4:33pm Hospital July 20, 2024 10:08 am Reason for Visit Admit Date Hypoxemia June 10, 2024 11:4 8pm Pulmonary embolism June 10, 2024 11:4 8pm Accelerated hypertension June 10, 2024 11:48pm Acute bronchospasm June 27, 2024 4:0 9pm Acute on chronic hypoxic respiratory libertad lure June 27, 2024 4:09pm Anticoagulant long-term use June 27, 2024 4:09pm Elevated blood-pressure read ing without diagnosis of hypertension June 27, 2024 4:09pm History of hypothyroidism June 27 4:09pm Left lower lobe pneumonia June 27 4:09pm Pulmonary embolus June 27, 2024 4:0 9pm Sinus tachycardia June 27, 2024 4:0 9pm SIRS (systemic inflammatory response syn drome) June 27, 2024 4:09pm Hypoxemia July 20, 2024 10:08 am JEANA (obstructive sleep apnea) July 20, 2024 10:08am Pulmonary embolism July 20, 2024 10:08 am SOB (shortness of breath) July 20, 2024 10:08am Reason for Visit Admit Date Hypoxemia June 10, 2024 11:4 8pm Pulmonary embolism June 10, 2024 11:4 8pm Accelerated hypertension June 10, 2024 11:48pm Acute bronchospasm June 27, 2024 4:0 9pm Acute on chronic hypoxic respiratory libertad lure June 27, 2024 4:09pm Anticoagulant long-term use June 27, 2024 4:09pm Elevated blood-pressure read ing without diagnosis of hypertension June 27, 2024 4:09pm History of hypothyroidism June 27 4:09pm Left lower lobe pneumonia June 27 4:09pm Pulmonary embolus June 27, 2024 4:0 9pm Sinus tachycardia June 27, 2024 4:0 9pm SIRS (systemic inflammatory response syn drome) June 27, 2024 4:09pm Hypoxemia July 20, 2024 10:08 am Pulmonary embolism July 20, 2024 10:08 am SOB (shortness of breath) July 20, 2024 10:08am JEANA (obstructive sleep apnea) July 20, 2024 10:08am Chief Complaint Admit Date SOB May 09, 2024 12:4 9pm DYSPNEA June 08, 2024 10:4 5am HYPOXIA PE ACCEL HTN June 10, 2024 11: 48pm HYPOXIA PE ACCEL HTN June 11, 2024 12: 17am HYPOXIA PE ACCEL HTN June 11, 2024 11: 28am HYPOXIA PE ACCEL HTN June 12, 2024 9:4 9am PNEUMONIA June 27, 2024 4:0 9pm Pneumonia June 28, 2024 6:2 2pm Pneumonia June 29, 2024 4:3 3pm SOB July 08, 2024 4:33pm Hospital FU July 20, 2024 10:08 am R06.02 - Shortness of breath July 28, 2 025 11:01am PNEUMONIA August 01, 2024 2:55p m Pneumonia August 01, 2024 3:12p m Reason for Visit Admit Date Hypoxemia June 10, 2024 11:4 8pm Pulmonary embolism June 10, 2024 11:4 8pm Accelerated hypertension June 10, 2024 11:48pm Acute bronchospasm June 27, 2024 4:0 9pm Acute on chronic hypoxic respiratory libertad lure June 27, 2024 4:09pm Anticoagulant long-term use June 27, 2024 4:09pm Elevated blood-pressure read ing without diagnosis of hypertension June 27, 2024 4:09pm History of hypothyroidism June 27 4:09pm Left lower lobe pneumonia June 27 4:09pm Pulmonary embolus June 27, 2024 4:0 9pm Sinus tachycardia June 27, 2024 4:0 9pm SIRS (systemic inflammatory response syn drome) June 27, 2024 4:09pm Hypoxemia July 20, 2024 10:08 am Pulmonary embolism July 20, 2024 10:08 am SOB (shortness of breath) July 20, 2024 10:08am JEANA (obstructive sleep apnea) July 20, 2024 10:08am Acidosis, lactic August 01, 2024 2:55p m Anticoagulant long-term use August 01 2:55pm Multilobar lung infiltrate August 01 2:55pm Pneumonia August 01, 2024 2:55p m Sepsis August 01, 2024 2:55p m Sinus tachycardia seen on cardiac monito r August 01, 2024 2:55pm Tachypnea August 01, 2024 2:55p m Chronic respiratory failure with hypoxia August 01, 2024 2:55pm Chief Complaint Admit Date SOB May 09, 2024 12:4 9pm DYSPNEA June 08, 2024 10:4 5am HYPOXIA PE ACCEL HTN June 10, 2024 11: 48pm HYPOXIA PE ACCEL HTN June 11, 2024 12: 17am HYPOXIA PE ACCEL HTN June 11, 2024 11: 28am HYPOXIA PE ACCEL HTN June 12, 2024 9:4 9am PNEUMONIA June 27, 2024 4:0 9pm Pneumonia June 28, 2024 6:2 2pm Pneumonia June 29, 2024 4:3 3pm SOB July 08, 2024 4:33pm Hospital July 20, 2024 10:08 am R06.02 - Shortness of breath July 28, 2 025 11:01am PNEUMONIA August 01, 2024 3:04p m Pneumonia August 01, 2024 3:12p m R06.02 - Shortness of breath August 02, 2 025 12:33pm Pneumonia August 02, 2024 2:08p m Reason for Visit Admit Date Hypoxemia June 10, 2024 11:4 8pm Pulmonary embolism June 10, 2024 11:4 8pm Accelerated hypertension June 10, 2024 11:48pm Acute bronchospasm June 27, 2024 4:0 9pm Acute on chronic hypoxic respiratory libertad lure June 27, 2024 4:09pm Anticoagulant long-term use June 27, 2024 4:09pm Elevated blood-pressure read ing without diagnosis of hypertension June 27, 2024 4:09pm History of hypothyroidism June 27 4:09pm Left lower lobe pneumonia June 27 4:09pm Pulmonary embolus June 27, 2024 4:0 9pm Sinus tachycardia June 27, 2024 4:0 9pm SIRS (systemic inflammatory response syn drome) June 27, 2024 4:09pm Hypoxemia July 20, 2024 10:08 am Pulmonary embolism July 20, 2024 10:08 am SOB (shortness of breath) July 20, 2024 10:08am JEANA (obstructive sleep apnea) July 20, 2024 10:08am Acidosis, lactic August 01, 2024 3:04p m Anticoagulant long-term use August 01 3:04pm Multilobar lung infiltrate August 01 3:04pm Pneumonia August 01, 2024 3:04p m Sepsis August 01, 2024 3:04p m Sinus tachycardia seen on cardiac monito r August 01, 2024 3:04pm Tachypnea August 01, 2024 3:04p m Chronic respiratory failure with hypoxia August 01, 2024 3:04pm Chief Complaint Admit Date SOB May 09, 2024 12:4 9pm DYSPNEA June 08, 2024 10:4 5am HYPOXIA PE ACCEL HTN June 10, 2024 11: 48pm HYPOXIA PE ACCEL HTN June 11, 2024 12: 17am HYPOXIA PE ACCEL HTN June 11, 2024 11: 28am HYPOXIA PE ACCEL HTN June 12, 2024 9:4 9am PNEUMONIA June 27, 2024 4:0 9pm Pneumonia June 28, 2024 6:2 2pm Pneumonia June 29, 2024 4:3 3pm SOB July 08, 2024 4:33pm Hospital FU July 20, 2024 10:08 am R06.02 - Shortness of breath July 28, 025 11:01am PNEUMONIA August 01, 2024 3:04p m Pneumonia August 01, 2024 3:12p m R06.02 - Shortness of breath August 02 025 12:33pm Pneumonia August 02, 2024 2:08p m Pneumonia August 03, 2024 12:39 pm Pneumonia August 03, 2024 4:02p m Reason for Visit Admit Date Hypoxemia June 10, 2024 11:4 8pm Pulmonary embolism June 10, 2024 11:4 8pm Accelerated hypertension June 10, 2024 11:48pm Acute bronchospasm June 27, 2024 4:0 9pm Acute on chronic hypoxic respiratory libertad lure June 27, 2024 4:09pm Anticoagulant long-term use June 27, 2024 4:09pm Elevated blood-pressure read ing without diagnosis of hypertension June 27, 2024 4:09pm History of hypothyroidism June 27 4:09pm Left lower lobe pneumonia June 27 4:09pm Pulmonary embolus June 27, 2024 4:0 9pm Sinus tachycardia June 27, 2024 4:0 9pm SIRS (systemic inflammatory response syn drome) June 27, 2024 4:09pm Hypoxemia July 20, 2024 10:08 am Pulmonary embolism July 20, 2024 10:08 am SOB (shortness of breath) July 20, 2024 10:08am JEANA (obstructive sleep apnea) July 20, 2024 10:08am Acidosis, lactic August 01, 2024 3:04p m Anticoagulant long-term use August 01 3:04pm Multilobar lung infiltrate August 01 3:04pm Pneumonia August 01, 2024 3:04p m Sepsis August 01, 2024 3:04p m Sinus tachycardia seen on cardiac monito r August 01, 2024 3:04pm SOB (shortness of breath) August 01, 2024 3:04pm Tachypnea August 01, 2024 3:04p m Chronic respiratory failure with hypoxia August 01, 2024 3:04pm Chief Complaint Admit Date SOB May 09, 2024 12:4 9pm DYSPNEA June 08, 2024 10:4 5am HYPOXIA PE ACCEL HTN June 10, 2024 11: 48pm HYPOXIA PE ACCEL HTN June 11, 2024 12: 17am HYPOXIA PE ACCEL HTN June 11, 2024 11: 28am HYPOXIA PE ACCEL HTN June 12, 2024 9:4 9am PNEUMONIA June 27, 2024 4:0 9pm Pneumonia June 28, 2024 6:2 2pm Pneumonia June 29, 2024 4:3 3pm SOB July 08, 2024 4:33pm Hospital FU July 20, 2024 10:08 am R06.02 - Shortness of breath July 28, 2 025 11:01am PNEUMONIA August 01, 2024 3:04p m Pneumonia August 01, 2024 3:12p m R06.02 - Shortness of breath August 02, 2 025 12:33pm Pneumonia August 02, 2024 2:08p m Pneumonia August 03, 2024 12:39 pm Pneumonia August 03, 2024 4:02p m Pneumonia August 04, 2024 11:36 am Suspected JEANA August 15, 2024 8:03p m PE August 18, 2024 10:3 6am MED ONC August 18, 2024 11:3 5am Reason for Visit Admit Date Hypoxemia June 10, 2024 11:4 8pm Pulmonary embolism June 10, 2024 11:4 8pm Accelerated hypertension June 10, 2024 11:48pm Acute bronchospasm June 27, 2024 4:0 9pm Acute on chronic hypoxic respiratory libertad lure June 27, 2024 4:09pm Anticoagulant long-term use June 27, 2024 4:09pm Elevated blood-pressure read ing without diagnosis of hypertension June 27, 2024 4:09pm History of hypothyroidism June 27 4:09pm Left lower lobe pneumonia June 27 4:09pm Pulmonary embolus June 27, 2024 4:0 9pm Sinus tachycardia June 27, 2024 4:0 9pm SIRS (systemic inflammatory response syn drome) June 27, 2024 4:09pm Hypoxemia July 20, 2024 10:08 am Pulmonary embolism July 20, 2024 10:08 am JEANA (obstructive sleep apnea) July 20, 2024 10:08am SOB (shortness of breath) July 20, 2024 10:08am Acidosis, lactic August 01, 2024 3:04p m Sepsis August 01, 2024 3:04p m Sinus tachycardia seen on cardiac monito r August 01, 2024 3:04pm Tachypnea August 01, 2024 3:04p m Anticoagulant long-term use August 01 3:04pm Chronic respiratory failure with hypoxia August 01, 2024 3:04pm Multilobar lung infiltrate August 01 3:04pm Pneumonia August 01, 2024 3:04p m SOB (shortness of breath) August 01, 2024 3:04pm Reason for Visit Admit Date Hypoxemia June 10, 2024 11:4 8pm Pulmonary embolism June 10, 2024 11:4 8pm Accelerated hypertension June 10, 2024 11:48pm Acute bronchospasm June 27, 2024 4:0 9pm Acute on chronic hypoxic respiratory libertad lure June 27, 2024 4:09pm Anticoagulant long-term use June 27, 2024 4:09pm Elevated blood-pressure read ing without diagnosis of hypertension June 27, 2024 4:09pm History of hypothyroidism June 27 4:09pm Left lower lobe pneumonia June 27 4:09pm Pulmonary embolus June 27, 2024 4:0 9pm Sinus tachycardia June 27, 2024 4:0 9pm SIRS (systemic inflammatory response syn drome) June 27, 2024 4:09pm Hypoxemia July 20, 2024 10:08 am Pulmonary embolism July 20, 2024 10:08 am JEANA (obstructive sleep apnea) July 20, 2024 10:08am SOB (shortness of breath) July 20, 2024 10:08am Acidosis, lactic August 01, 2024 3:04p m Sepsis August 01, 2024 3:04p m Sinus tachycardia seen on cardiac monito r May 26th, 2025 3:04pm Tachypnea August 01, 2024 3:04p m Anticoagulant long-term use August 01 3:04pm Chronic respiratory failure with hypoxia August 01, 2024 3:04pm Multilobar lung infiltrate August 01 3:04pm Pneumonia August 01, 2024 3:04p m SOB (shortness of breath) August 01, 2024 3:04pm Pulmonary embolism August 18, 2024 10:3 6am Advance Directives No Advanced Directives Records Found Advance Directive Response Recorded Date/ Time Living Will No January 13 12:18am Power of Mold Stamper And Repairer No January 13, 2021 12:18am Advance Directive Response Recorded Date/ Time Living Will No January 12 11:18pm Power of Mold Stamper And Repairer No January 12, 2021 11:18pm Advance Directive Response Recorded Date/ Time Living Will No June 01, 2022 2:12pm Power of Mold Stamper And Repairer No June 01 2:12pm Advance Directive Response Recorded Date/ Time Living Will No June 01, 2022 5:42pm Power of [employer] Stamper And Repairer No June 01 5:42pm Advance Directive Response Recorded Date/ Time Name of Medical Power of Mold Stamper And Repairer Aicha Adan November 12, 2022 9:18am Living Will Yes November 12, 9:18am Power of [employer] Stamper And Repairer Yes November 12, 2022 9:18am Advance Directive Response Recorded Date/ Time Living Will Yes June 10, 2024 10:59pm Do you have a Healthcare Power of [employer] Stamper And Repairer? Yes June 10, 2024 10:59pm Name of Medical Power of [employer] Stamper And Repairer jose luis Tuttle June 10, 2024 10:59pm Living Will Yes May 09, 2024 3:14pm Do you have a Healthcare Power of [employer] Stamper And Repairer? Yes May 09, 2024 3:14pm Name of Medical Power of [employer] Stamper And Repairer Aicha Cool May 09, 2024 3:14pm Advance Directive Response Recorded Date/ Time Living Will Yes June 11, 2024 1:42am Do you have a Healthcare Power of [employer] Stamper And Repairer? Yes June 11, 2024 1:42am Name of Medical Power of [employer] Stamper And Repairer jose luis Tuttle June 11, 2024 1:42am Living Will Yes May 09, 2024 3:14pm Do you have a Healthcare Power of [employer] Stamper And Repairer? Yes May 09, 2024 3:14pm Name of Medical Power of [employer] Stamper And Repairer Aicha Cool May 09, 2024 3:14pm Advance Directive Response Recorded Date/ Time Living Will Yes June 11, 2024 1:42am Do you have a Healthcare Power of [employer] Stamper And Repairer? Yes June 11, 2024 1:42am Name of Medical Power of [employer] Stamper And Repairer jose luis Tuttle June 11, 2024 1:42am Living Will Yes June 27, 2024 2:01pm Do you have a Healthcare Power of [employer] Stamper And Repairer? Yes June 27, 2024 2:01pm Name of Medical Power of [employer] Stamper And Repairer aicha cool June 27, 2024 2:01pm Living Will Yes May 09, 2024 3:14pm Do you have a Healthcare Power of [employer] Stamper And Repairer? Yes May 09, 2024 3:14pm Name of Medical Power of [employer] Stamper And Repairer Aicha Cool May 09, 2024 3:14pm Advance Directive Response Recorded Date/ Time Living Will Yes June 11, 2024 1:42am Do you have a Healthcare Pow er of [employer] Stamper And Repairer? Yes June 11, 2024 1:42am Name of Medical Power of [employer] Stamper And Repairer jose luis Tuttle ter June 11, 2024 1:42am Living Will Yes June 27, 2024 5:51pm Do you have a Healthcare Pow er of [employer] Stamper And Repairer? Yes June 27, 2024 5:51pm Name of Medical Power of [employer] Stamper [employer] Repairer Aicha Cool - daughter June 27, 2024 5:51pm Living Will Yes May 09, 2024 3:14pm Do you have a Healthcare Pow er of [employer] Stamper And Repairer? Yes May 09, 2024 3:14pm Name of Medical Power of [employer] Stamper And Repairer Aicha Cool May 09, 2024 3:14pm Advance Directive Response Recorded Date/ Time Living Will Yes June 11, 2024 1:42am Do you have a Healthcare Pow er of [employer] Stamper And Repairer? Yes June 11, 2024 1:42am Name of Medical Power of [employer] Stamper And Repairer jose luis Tuttle ter June 11, 2024 1:42am Living Will Yes June 27, 2024 5:51pm Do you have a Healthcare Pow er of [employer] Stamper And Repairer? Yes June 27, 2024 5:51pm Name of Medical Power of [employer] Stamper And Repairer Aicha Cool - ann June 27, 2024 5:51pm Living Will Yes May 09, 2024 3:14pm Do you have a Healthcare Pow er of [employer] Stamper And Repairer? Yes May 09, 2024 3:14pm Name of Medical Power of [employer] Stamper And Repairer Aicha Cool May 09, 2024 3:14pm Do you have a Healthcare Pow er of [employer] Stamper And Repairer? No July 08, 2024 4:43pm Advance Directive Response Recorded Date/ Time Living Will Yes June 11, 2024 1:42am Do you have a Healthcare Pow er of [employer] Stamper And Repairer? Yes June 11, 2024 1:42am Name of Medical Power of [employer] Stamper And Repairer Aicha jose luis sabillon June 11, 2024 1:42am Living Will Yes June 27, 2024 5:51pm Do you have a Healthcare Pow er of [employer] Stamper And Repairer? Yes June 27, 2024 5:51pm Name of Medical Power of [employer] Stamper And Repairer Aicha Cool - ann June 27, 2024 5:51pm Do you have a Healthcare Pow er of [employer] Stamper And Repairer? Yes August 01, 2024 12:56pm Name of Medical Power of [employer] Stamper And Repairer Maria Guadalupe August 01, 2024 12:56pm Living Will Yes May 09, 2024 3:14pm Do you have a Healthcare Pow er of [employer] Stamper And Repairer? Yes May 09, 2024 3:14pm Name of Medical Power of [employer] Stamper And Repairer Aicha Cool May 09, 2024 3:14pm Do you have a Healthcare Pow er of [employer] Stamper And Repairer? No July 08, 2024 4:43pm Advance Directive Response Recorded Date/ Time Living Will Yes June 11, 2024 1:42am Do you have a Healthcare Pow er of [employer] Stamper And Repairer? Yes June 11, 2024 1:42am Name of Medical Power of [employer] Stamper And Repairer Aicha jose luis sabillon June 11, 2024 1:42am Living Will Yes June 27, 2024 5:51pm Do you have a Healthcare Pow er of [employer] Stamper And Repairer? Yes June 27, 2024 5:51pm Name of Medical Power of [employer] Stamper And Repairer Aicha Cool - daughter June 27, 2024 5:51pm Do you have a Healthcare Pow er of [employer] Stamper And Repairer? Yes August 01, 2024 4:01pm Name of Medical Power of [employer] Stamper And Repairer Aicha Cool - daughter August 01, 2024 4:01pm Living Will Yes May 09, 2024 3:14pm Do you have a Healthcare Pow er of [employer] Stamper And Repairer? Yes May 09, 2024 3:14pm Name of Medical Power of Mold St[employer]per [employer]r Aicha Cool May 09, 2024 3:14pm Do you have a Healthcare Pow er of Mold Stamper And Repairer? No July 08, 2024 4:43pm Reason for Referral Specialty Diagnoses / Procedures Referred By Caio t Referred To Contact CT IMAGING Diagnoses Chronic foot pain, unspecified laterality Hyperuricemia Pain in both feet Procedures CT FOOT WO IVCON RIGHT CT LOWER EXTREMITY W/O CONTRAST MATERIAL Chris Cody MD [address] [place] [address] Ct Imaging [place] [address] Referral ID Status Reason Start Date Expiration Date Visits Requested Visits Authorized [id number] Pending Review Auto-Generat ed Referral 3 02/19/2024 1 1 Specialty Diagnoses / Procedures Referred By Caio t Referred To Contact Diagnoses Fibromyalgia Procedures CONSULT TO WELLNESS PHYSICIAN OFFICE/OUTPATIENT [facility]3] 60 MINUTES Chris Cody MD [address] [place] [address] Referral ID Status Reason Start Date Expiration Date Visits Requested Visits Authorized [id number] Authorized PCP Requested Referral 06/26/2023 06/25/2024 1 1 Specialty Diagnoses / Procedures Referred By Caio guy Referred To Contact Diagnoses Elevated liver enzymes Procedures CONSULT TO HEPATOLOGY OFFICE/OUTPATIENT [facility]3] 60 MINUTES Chris Cody MD [address] [place] [address] Referral ID Status Reason Start Date Expiration Date Visits Requested Visits Authorized [id number] Authorized PCP Requested Referral 4 12/31/2024 1 1 Family History No Family History Records Found Relationship Condition Age at Onset Recorded Date/T ray mother Hypertension Unknown Polyp of colon Unknown father Lymphoma Unknown Summary Purpose Additional Source Comments Goals (unrecognized section and content) Goals may be documented in a n alternate sectionGoals may be documented in an alternate sectionGoals may be documented in an alternate sectionGoals may be documented in an alternate sectionGoals may be documented in an alternate sectionGoals may be documented in an alternate sectionGoals may be documented in an alternate sectionGoals may be documented in an alternate sectionGoals may be documented in an alternate sectionGoals may be documented in an alternate section Care Teams (unrecognized sec tion and content) Team Status: Active Member Role Status Dates Dr. John Batista MD Family Provider Active Dr. Beatriz Ochoa MD Primary Care Provider Active Team Status: Inactive Member Role Status Dates Dr. John Batista MD Primary Care Provider Active Dr. Brenda Montanez MD Attending Provider, Referring Provider Active Team Status: Inactive Member Role Status Dates Dr. Beatriz Ochoa MD Primary Care Provider, Attendin g Provider Active Team Status: Active Member Role Status Dates Dr. John Batista MD Family Provider Active Dr. Shahab Adams DO Primary Care Provider Active Team Status: Active Member Role Status Dates Dr. Shahab Adams DO Primary Care Provider, Attendin g Provider Active Team Status: Inactive Member Role Status Dates Dr. Shahab Adams DO Primary Care Provider, Attendin g Provider Active Team Status: Active Member Role Status Dates Dr. Shahab Adams DO Primary Care Prov ider, Attending Provider, Referring Provider Active Team Status: Active Member Role Status Dates Dr. Shahab Adams DO Primary Care Provider Active Dr. Shakira Haile MD Emergency Provider Active Dr. Maria E Strickland MD Admit Provider, Attending Provid er Active Team Status: Active Member Role Status Dates Dr. Shahab Adams DO Primary Care Provider Active Dr. Shakira Haile MD Emergency Provider Active Dr. Maria E Strickland MD Admit Provider, At tending Provider, Other Provider Active Team Status: Active Member Role Status Dates Dr. Shahab Adams DO Primary Care Provider Active Dr. Shakira Haile MD Emergency Provider Active Dr. Maria E Strickland MD Admit Provider, At tending Provider, Other Provider Active Dr. Josafat Villalobos MD Other Provider Active Dr. Bethel Benitez MD Other Provider Active Team Status: Active Member Role Status Dates Dr. Shahab Adams DO Primary Care Provider Active Dr. Valentin Barrios MD Attending Provider Active Team Status: Inactive Member Role Status Dates Dr. Shahab Adams DO Primary Care Prov ider, Attending Provider, Referring Provider Active Team Status: Active Member Role Status Dates Dr. Shahab Adams , DO Primary Care Provider Active Dr. Shakira Haile MD Emergency Provider Active Dr. Maria E Strickland MD Admit Provider, Attending Provid er Active Dr. Josafat Villalobos MD Other Provider Active Dr. Bethel Benitez MD Other Provider Active Team Status: Inactive Member Role Status Dates Dr. Shahab Adams DO Primary Care Provider Active Dr. Shakira Haile MD Emergency Provider Active Dr. Maria E Strickland MD Admit Provider, Attending Provid er Active Dr. Josafat Villalobos MD Other Provider Active Dr. Bethel Benitez MD Other Provider Active Team Status: Active Member Role Status Dates Dr. Shahab Adams , DO Primary Care Provider Active Dr. Valentin Barrios MD Attending Provider Active Dr. Maria E Strickland MD Referring Provider Active Team Status: Active Member Role Status Dates Dr. Shahab Adams , DO Primary Care Provider Active Kanika Ojeda Attending Provider Active Team Status: Inactive Member Role Status Dates Minnie Jenkins NP-C Primary Care Provide r, Attending Provider, Referring Provider Active Team Status: Active Member Role Status Dates Dr. Shahab Adams , DO Primary Care Provider, Referrin g Provider Active Dr. Tee Cabrera , DO Attending Provider, Other Prov ider Active Team Status: Inactive Member Role Status Dates Dr. Shahab Adams , DO Primary Care Provider, Referrin g Provider Active Dr. Tee Cabrera , DO Attending Provider Active Surface Mount Technology Operator Relationship Specialty Start Date End Date Shahab Adams DO [address] [place], [place] [id number] PCP - General Family Medicine 11/21/22 Surface Mount Technology Operator Relationship Specialty Start Date End Date Shahab Adams DO [address] [place], [place] [id number] PCP - General Family Medicine 11/21/22 Surface Mount Technology Operator Relationship Specialty Start Date End Date Shahab Adams DO [address] [place] [address] PCP - General Family Medicine 11/21/22 Surface Mount Technology Operator Relationship Specialty Start Date End Date Shahab Adams DO [address] [place] [address] PCP - General Family Medicine 11/21/22 Surface Mount Technology Operator Relationship Specialty Start Date End Date Shahab Adams DO [address] [place] [address] PCP - General Family Medicine 11/21/22 Surface Mount Technology Operator Relationship Specialty Start Date End Date Shahab Adams DO [address] [place] [address] PCP - General Family Medicine 11/21/22 Surface Mount Technology Operator Relationship Specialty Start Date End Date Shahab Adams DO [address] [place] [address] PCP - General Family Medicine 11/21/22 Surface Mount Technology Operator Relationship Specialty Start Date End Date Shahab Adams DO [address] [place] [address] PCP - General Family Medicine 11/21/22 Surface Mount Technology Operator Relationship Specialty Start Date End Date Shahab Adams DO [address] [place] [address] PCP - General Family Medicine 11/21/22 Surface Mount Technology Operator Relationship Specialty Start Date End Date Shahab Adams DO [address] [place] [address] PCP - General Family Medicine 11/21/22 Surface Mount Technology Operator Relationship Specialty Start Date End Date Shahab Adams [address] [place] [address] PCP - General Family Medicine 11/21/22 Surface Mount Technology Operator Relationship Specialty Start Date End Date Shahab Adams [address] [place] [address] PCP - General Family Medicine 11/21/22 Surface Mount Technology Operator Relationship Specialty Start Date End Date Shahab Adams [address] [place] [address] PCP - General Family Medicine 11/21/22 Surface Mount Technology Operator Relationship Specialty Start Date End Date BryanShahab vegaDO [address] [place] [address] PCP - General Family Medicine 11/21/22 Julien Ochoa [address] [facility] [place] [address] Referring Ophthalmology 11/30/23 Surface Mount Technology Operator Relationship Specialty Start Date End Date BryanShahab vegaDO [address] [place] [address] PCP - General Family Medicine 11/21/22 Julien Ochoa [address] [facility] [place] [address] Referring Ophthalmology 11/30/23 Surface Mount Technology Operator Relationship Specialty Start Date End Date Shahab Adams DO [address] [place] [id number] PCP - General Family Medicine 11/21/22 Julien Ochoa [address] [place] [address] Referring Ophthalmology 11/30/23 Surface Mount Technology Operator Relationship Specialty Start Date End Date Shahab Adams DO [address] [place], [place] [address] PCP - General Family Medicine 11/21/22 Julien Ochoa [address] [place] [address] Referring Ophthalmology 11/30/23 Surface Mount Technology Operator Relationship Specialty Start Date End Date Shahab Adams DO [address] [place], [place] [address] PCP - General Family Medicine 11/21/22 Julien Ochoa [address] [place] [address] Referring Ophthalmology 11/30/23 Surface Mount Technology Operator Relationship Specialty Start Date End Date Shahab Adams DO [address] [place], [place] [address] PCP - General Family Medicine 11/21/22 Julien Ochoa [address] [place] [address] Referring Ophthalmology 11/30/23 Surface Mount Technology Operator Relationship Specialty Start Date End Date Shahab Adams DO [address] [place], [place] [address] PCP - General Family Medicine 11/21/22 Julien Ochoa [address] [place] [address] Referring Ophthalmology 11/30/23 Surface Mount Technology Operator Relationship Specialty Start Date End Date BryanShahab durhamDO [address] [place], [place] [address] PCP - General Family Medicine 11/21/22 Julien Ochoa [address] [place] [address] Referring Ophthalmology 11/30/23 Surface Mount Technology Operator Relationship Specialty Start Date End Date Bryan Shahab OgdenDO [address] [place], [place] [address] PCP - General Family Medicine 11/21/22 Julien Ochoa [address] [place] [address] Referring Ophthalmology 11/30/23 Surface Mount Technology Operator Relationship Specialty Start Date End Date Bryan Shahab OgdenDO [address] [place] [address] PCP - General Family Medicine 11/21/22 Julien Ochoa [address] [place] [address] Referring Ophthalmology 11/30/23 Surface Mount Technology Operator Relationship Specialty Start Date End Date Shahab Adams DO [address] [place] [address] PCP - General Family Medicine 11/21/22 Julien Ochoa [address] [place] [address] Referring Ophthalmology 11/30/23 Team Status: Active Member Role Status Dates Dr. Shahab Adams DO Primary Care Provider Active Team Status: Inactive Member Role Status Dates Dr. Shahab Adams DO Primary Care Provider Active Start: May 09, 2024 End: May 09, 2024 Dr. Carlo Ruff DO Attending Provider Active Start: May 09, 2024 End: May 09, 2024 Dr. Carlo Ruff DO Emergency Provider Active Start: May 09, 2024 End: May 09, 2024 Team Status: Active Member Role Status Dates Dr. Shahab Adams DO Primary Care Provider Active Start: June 08, 2024 Dr. Shahab Adams DO Attending Provider Active Start: June 08, 2024 Dr. Shahab Adams DO Referring Provider Active Start: June 08, 2024 Team Status: Active Member Role Status Dates Dr. Shahab Adams DO Primary Care Provider Active Start: June 08, 2024 Dr. Valentin Barrios MD Attending Provider Active S tart: June 08, 2024 Team Status: Active Member Role Status Dates Dr. Shahab Adams DO Primary Care Provider Active Start: June 11, 2024 Dr. Lance Loja MD Emergency Provider Active Start: June 11, 2024 Dr. Maria Garcia MD Admit Provider Active St art: June 11, 2024 Dr. Maria Garcia MD Attending Provider Active Start: June 11, 2024 Dr. Maria Garcia MD Other Provider Active St art: June 11, 2024 Team Status: Inactive Member Role Status Dates Dr. Shahab Adams DO Primary Care Provider Active Start: June 08, 2024 End: June 08, 2024 Dr. Shahab Adams DO Attending Provider Active Start: June 08, 2024 End: June 08, 2024 Dr. Shahab Adams DO Referring Provider Active Start: June 08, 2024 End: June 08, 2024 Team Status: Active Member Role Status Dates Dr. Shahab Adams DO Primary Care Provider Active Start: June 10, 2024 Dr. Lance Loja MD Emergency Provider Active Start: June 10, 2024 Dr. Maria Garcia MD Admit Provider Active St art: June 10, 2024 Dr. Maria Garcia MD Other Provider Active St art: June 10, 2024 Dr. Tyrone Clark DO Attending Provider Active Start: June 10, 2024 Team Status: Active Member Role Status Dates Dr. Shahab Adams DO Primary Care Provider Active Start: June 11, 2024 Dr. Lance Loja MD Emergency Provider Active Start: June 11, 2024 Dr. Maria Garcia MD Admit Provider Active St art: June 11, 2024 Dr. Maria Garcia MD Other Provider Active St art: June 11, 2024 Dr. Tyrone Clark DO Attending Provider Active Start: June 11, 2024 Dr. Tyrone Clark DO Other Provider Active Start: June 11, 2024 Team Status: Inactive Member Role Status Dates Dr. Shahab Adams DO Primary Care Provider Active Start: June 10, 2024 End: June 12, 2024 Dr. Lance Loja MD Emergency Provider Active Start: June 10, 2024 End: June 12, 2024 Dr. Maria Garcia MD Admit Provider Active St art: June 10, 2024 End: June 12, 2024 Dr. Maria Garcia MD Other Provider Active St art: June 10, 2024 End: June 12, 2024 Dr. Tyrone Clark DO Attending Provider Active Start: June 10, 2024 End: June 12, 2024 Team Status: Active Member Role Status Dates Dr. Shahab Adams DO Primary Care Provider Active Start: June 12, 2024 Dr. Lance Loja MD Emergency Provider Active Start: June 12, 2024 Dr. Maria Garcia MD Admit Provider Active St art: June 12, 2024 Dr. Maria Garcia MD Other Provider Active St art: June 12, 2024 Dr. Tyrone Clark DO Attending Provider Active Start: June 12, 2024 Dr. Tyrone Clark DO Other Provider Active Start: June 12, 2024 Team Status: Active Member Role Status Dates Dr. Shahab Adams DO Primary Care Provider Active Start: June 27, 2024 Dr. Carlos Jiménez MD Emergency Provider Active Sta rt: June 27, 2024 Dr. Maria E Strickland MD Admit Provider Active Star t: June 27, 2024 Dr. Maria E Strickland MD Attending Provider Active Start: June 27, 2024 Team Status: Inactive Member Role Status Dates Dr. Shahab Adams DO Primary Care Provider Active Start: June 27, 2024 End: June 29, 2024 Dr. Carlos Jiménez MD Emergency Provider Active Sta rt: June 27, 2024 End: June 29, 2024 Dr. Maria E Strickland MD Admit Provider Active Star t: June 27, 2024 End: June 29, 2024 Dr. Maria E Strickland MD Other Provider Active Star t: June 27, 2024 End: June 29, 2024 Dr. Shahab Warren DO Attending Provider Active Start: June 27, 2024 End: June 29, 2024 Team Status: Active Member Role Status Dates Dr. Shahab Adams DO Primary Care Provider Active Start: June 28, 2024 Dr. Carlos Jiménez MD Emergency Provider Active Sta rt: June 28, 2024 Dr. Maria E Strickland MD Admit Provider Active Star t: June 28, 2024 Dr. Maria E Strickland MD Other Provider Active Star t: June 28, 2024 Dr. Shahab Warren DO Attending Provider Active Start: June 28, 2024 Dr. Shahab Warren DO Other Provider Active S tart: June 28, 2024 Team Status: Active Member Role Status Dates Dr. Shahab Adams DO Primary Care Provider Active Start: June 29, 2024 Dr. Carlos Jiménez MD Emergency Provider Active Sta rt: June 29, 2024 Dr. Maria E Strickland MD Admit Provider Active Star t: June 29, 2024 Dr. Maria E Strickland MD Other Provider Active Star t: June 29, 2024 Dr. Shahab Warren DO Attending Provider Active Start: June 29, 2024 Dr. Shahab Warren DO Other Provider Active S tart: June 29, 2024 Team Status: Inactive Member Role Status Dates Dr. Shahab Adams DO Primary Care Provider Active Start: July 08, 2024 End: July 08, 2024 Dr. Lance Loja MD Attending Provider Active Start: July 08, 2024 End: July 08, 2024 Dr. Lance Loja MD Emergency Provider Active Start: July 08, 2024 End: July 08, 2024 Team Status: Inactive Member Role Status Dates Dr. Shahab Adams DO Primary Care Provider Active Start: July 20, 2024 End: July 20, 2024 Dr. Shahab Adams DO Referring Provider Active Start: July 20, 2024 End: July 20, 2024 Dr. Jose M Gonzalez , DO Attending Provider Active S tart: July 20, 2024 End: July 20, 2024 Team Status: Inactive Member Role Status Dates Dr. Shahab Adams DO Primary Care Provider Active Start: July 20, 2024 End: July 20, 2024 Dr. Shahab Adams DO Attending Provider Active Start: July 20, 2024 End: July 20, 2024 Dr. Shahab Adams DO Referring Provider Active Start: July 20, 2024 End: July 20, 2024 Team Status: Active Member Role Status Dates Dr. Shahab Adams DO Primary Care Provider Active Start: July 28, 2024 Dr. Jose M Gonzalez , Attending Provider Active S tart: July 28, 2024 Dr. Jose M Gonzalez , Referring Provider Active S tart: July 28, 2024 Team Status: Active Member Role Status Dates Dr. Shahab Adams DO Primary Care Provider Active Start: August 01, 2024 Dr. Carlos Jiménez MD Emergency Provider Active Sta rt: August 01, 2024 Dr. Bill Camacho , Admit Provider Active Star t: August 01, 2024 Dr. Bill Camacho DO Attending Provider Active Start: August 01, 2024 Team Status: Active Member Role Status Dates Dr. Shahab Adams DO Primary Care Provider Active Start: August 01, 2024 Dr. Carlos Jiménez MD Emergency Provider Active Sta rt: August 01, 2024 Dr. Bill Camacho DO Admit Provider Active Star t: August 01, 2024 Dr. Bill Camacho DO Attending Provider Active Start: August 01, 2024 Dr. Bill Camacho , DO Other Provider Active Star t: August 01, 2024 Team Status: Inactive Member Role Status Dates Dr. Shahab Adams DO Primary Care Provider Active Start: July 28, 2024 End: July 28, 2024 Dr. Jose M Gonzalez , Attending Provider Active S tart: July 28, 2024 End: July 28, 2024 Dr. Jose M Gonzalez DO Referring Provider Active S tart: July 28, 2024 End: July 28, 2024 Team Status: Active Member Role Status Dates Dr. Shahab Adams DO Primary Care Provider Active Start: August 01, 2024 Dr. Carlos Jiménez MD Emergency Provider Active Sta rt: August 01, 2024 Dr. Bill Camacho DO Admit Provider Active Star t: August 01, 2024 Dr. Bill Cmaacho DO Other Provider Active Star t: August 01, 2024 Dr. Rosalina Gatica MD Attending Provider Active Start: August 01, 2024 Dr. Aj Andino MD Other Provider Active Start: August 01, 2024 Dr. Dyllan Tellez MD Other Provider Active Start: August 01, 2024 Dr. Asif Medina MD Other Provider Active Star t: August 01, 2024 Dr. Jose M Gonzalez DO Other Provider Active Start : August 01, 2024 Dr. Ned Colbert MD Other Provider Active Sta rt: August 01, 2024 Dr. Sincere Reed MD Other Provider Active St art: August 01, 2024 Dr. Hector Rodriguez MD Other Provider Active S tart: August 01, 2024 Dr. Chio Gamble MD Other Provider Active Start: August 01, 2024 Dr. Rogelio Lim MD Other Provider Active Start : August 01, 2024 Dr. Amador Barrios MD Other Provider Active Start: August 01, 2024 Dr. Angel Henderson MD Other Provider Active Start : August 01, 2024 Dr. Jailyn Casas MD Other Provider Active Star t: August 01, 2024 Dr. Martín Dale MD Other Provider Active Sta rt: August 01, 2024 Dr. Lucia Bardales MD Other Provider Active Sta rt: August 01, 2024 Dr. Stanford Marie MD Other Provider Active Star t: August 01, 2024 Dr. Eliezer Colon MD Other Provider Active St art: August 01, 2024 Dr. Arnold Leblanc MD Other Provider Active Star t: August 01, 2024 Dr. Dean Worthy , DO Other Provider Active St art: August 01, 2024 Dr. Carlos Manuel Barr MD Other Provider Active Start: August 01, 2024 Dr. Mustapha Baumann MD Other Provider Active St art: August 01, 2024 Dr. Demetrius Saldana , DO Other Provider Active Start: August 01, 2024 Dr. Raheem Sethi MD Other Provider Active Star t: August 01, 2024 Dr. Mohamud Forde MD Other Provider Active Sta rt: August 01, 2024 Team Status: Active Member Role Status Dates Dr. Shahab Adams , Primary Care Provider Active Start: August 02, 2024 Dr. Jose M Gonzalez , DO Attending Provider Active S tart: August 02, 2024 Dr. Jose M Gonzalez , DO Referring Provider Active S tart: August 02, 2024 Dr. Jose M Gonzalez , DO Other Provider Active Start : August 02, 2024 Team Status: Active Member Role Status Dates Dr. Shahab Adams DO Primary Care Provider Active Start: August 02, 2024 Dr. Carlos Jiménez MD Emergency Provider Active Sta rt: August 02, 2024 Dr. Bill Camacho , DO Admit Provider Active Star t: August 02, 2024 Dr. Bill Camacho , DO Other Provider Active Star t: August 02, 2024 Dr. Rosalina Gatica MD Attending Provider Active Start: August 02, 2024 Dr. Rosalina Gatica MD Other Provider Active St art: August 02, 2024 Dr. Aj Andino MD Other Provider Active Start: August 02, 2024 Dr. Dyllan Tellez MD Other Provider Active Start: August 02, 2024 Dr. Asif Medina MD Other Provider Active Star t: August 02, 2024 Dr. Jose M Gonzalez , DO Other Provider Active Start : August 02, 2024 Dr. Ned Colbert MD Other Provider Active Sta rt: August 02, 2024 Dr. Sincere Reed MD Other Provider Active St art: August 02, 2024 Dr. Hector Rodriguez MD Other Provider Active S tart: August 02, 2024 Dr. Chio Gamble MD Other Provider Active Start: August 02, 2024 Dr. Rogelio Lim MD Other Provider Active Start : August 02, 2024 Dr. Amador Barrios MD Other Provider Active Start: August 02, 2024 Dr. Angel Henderson MD Other Provider Active Start : August 02, 2024 Dr. Jailyn Casas MD Other Provider Active Star t: August 02, 2024 Dr. Martín Dale MD Other Provider Active Sta rt: August 02, 2024 Dr. Lucia Bardales MD Other Provider Active Sta rt: August 02, 2024 Dr. Stanford Marie MD Other Provider Active Star t: August 02, 2024 Dr. Eliezer Colon MD Other Provider Active St art: August 02, 2024 Dr. Arnold Leblanc MD Other Provider Active Star t: August 02, 2024 Dr. Dean Worthy , Other Provider Active St art: August 02, 2024 Dr. Carlos Manuel Barr MD Other Provider Active Start: August 02, 2024 Dr. Mustapha Baumann MD Other Provider Active St art: August 02, 2024 Dr. Demetrius Saldana , Other Provider Active Start: August 02, 2024 Dr. Raheem Sethi MD Other Provider Active Star t: August 02, 2024 Dr. Mohamud Forde MD Other Provider Active Sta rt: August 02, 2024 Team Status: Inactive Member Role Status Dates Dr. Shahab Adams DO Primary Care Provider Active Start: August 01, 2024 End: August 04, 2024 Dr. Carlos Jiménez MD Emergency Provider Active Sta rt: August 01, 2024 End: August 04, 2024 Dr. Bill Camacho , Admit Provider Active Star t: August 01, 2024 End: August 04, 2024 Dr. Bill Camacho , DO Other Provider Active Star t: August 01, 2024 End: August 04, 2024 Dr. Rosalina Gatica MD Attending Provider Active Start: August 01, 2024 End: August 04, 2024 Dr. Aj Andino MD Other Provider Active Start: August 01, 2024 End: August 04, 2024 Dr. Dyllan Tellez MD Other Provider Active Start: August 01, 2024 End: August 04, 2024 Dr. Asif Medina MD Other Provider Active Star t: August 01, 2024 End: August 04, 2024 Dr. Jose M Gonzalez , Other Provider Active Start : August 01, 2024 End: August 04, 2024 Dr. Ned Colbert MD Other Provider Active Sta rt: August 01, 2024 End: August 04, 2024 Dr. Sincere Reed MD Other Provider Active St art: August 01, 2024 End: August 04, 2024 Dr. Hector Rodriguez MD Other Provider Active S tart: August 01, 2024 End: August 04, 2024 Dr. Chio Gamble MD Other Provider Active Start: August 01, 2024 End: August 04, 2024 Dr. Rogelio Lim MD Other Provider Active Start : August 01, 2024 End: August 04, 2024 Dr. Amador Barrios MD Other Provider Active Start: August 01, 2024 End: August 04, 2024 Dr. Angel Henderson MD Other Provider Active Start : August 01, 2024 End: August 04, 2024 Dr. Jailyn Casas MD Other Provider Active Star t: August 01, 2024 End: August 04, 2024 Dr. Martín Dale MD Other Provider Active Sta rt: August 01, 2024 End: August 04, 2024 Dr. Lucia Bardales MD Other Provider Active Sta rt: August 01, 2024 End: August 04, 2024 Dr. Stanford Marie MD Other Provider Active Star t: August 01, 2024 End: August 04, 2024 Dr. Eliezer Colon MD Other Provider Active St art: August 01, 2024 End: August 04, 2024 Dr. Arnold Leblanc MD Other Provider Active Star t: August 01, 2024 End: August 04, 2024 Dr. Dean Worthy DO Other Provider Active St art: August 01, 2024 End: August 04, 2024 Dr. Carlos Manuel Barr MD Other Provider Active Start: August 01, 2024 End: August 04, 2024 Dr. Mustapha Baumann MD Other Provider Active St art: August 01, 2024 End: August 04, 2024 Dr. Demetrius Saldana DO Other Provider Active Start: August 01, 2024 End: August 04, 2024 Dr. Raheem Sethi MD Other Provider Active Star t: August 01, 2024 End: August 04, 2024 Dr. Mohamud Forde MD Other Provider Active Sta rt: August 01, 2024 End: August 04, 2024 Team Status: Active Member Role Status Dates Dr. Shahab Adams , Primary Care Provider Active Start: August 03, 2024 Dr. Carlos Jiménez MD Emergency Provider Active Sta rt: August 03, 2024 Dr. Bill Camacho DO Admit Provider Active Star t: August 03, 2024 Dr. Bill Camacho DO Other Provider Active Star t: August 03, 2024 Dr. Rosalina Gatica MD Other Provider Active St art: August 03, 2024 Dr. Aj Andino MD Other Provider Active Start: August 03, 2024 Dr. Dyllan Tellez MD Other Provider Active Start: August 03, 2024 Dr. Asif Medina MD Other Provider Active Star t: August 03, 2024 Dr. Jose M Gonzalez DO Attending Provider Active S tart: August 03, 2024 Dr. Jose M Gonzalez DO Other Provider Active Start : August 03, 2024 Dr. Ned Colbert MD Other Provider Active Sta rt: August 03, 2024 Dr. Sincere Reed MD Other Provider Active St art: August 03, 2024 Dr. Hector Rodriguez MD Other Provider Active S tart: August 03, 2024 Dr. Chio Gamble MD Other Provider Active Start: August 03, 2024 Dr. Rogelio Lim MD Other Provider Active Start : August 03, 2024 Dr. Amador Barrios MD Other Provider Active Start: August 03, 2024 Dr. Angel Henderson MD Other Provider Active Start : August 03, 2024 Dr. Jailyn Casas MD Other Provider Active Star t: August 03, 2024 Dr. Martín Dale MD Other Provider Active Sta rt: August 03, 2024 Dr. Lucia Bardales MD Other Provider Active Sta rt: August 03, 2024 Dr. Stanford Marie MD Other Provider Active Star t: August 03, 2024 Dr. Eliezer Colon MD Other Provider Active St art: August 03, 2024 Dr. Arnold Leblanc MD Other Provider Active Star t: August 03, 2024 Dr. Dean Worthy , DO Other Provider Active St art: August 03, 2024 Dr. Carlos Manuel Barr MD Other Provider Active Start: August 03, 2024 Dr. Mustapha Baumann MD Other Provider Active St art: August 03, 2024 Dr. Demetrius Saldana , Other Provider Active Start: August 03, 2024 Dr. Raheem Sethi MD Other Provider Active Star t: August 03, 2024 Dr. Mohamud Forde MD Other Provider Active Sta rt: August 03, 2024 Team Status: Active Member Role Status Dates Dr. Shahab Adams DO Primary Care Provider Active Start: August 03, 2024 Dr. Carlos Jiménez MD Emergency Provider Active Sta rt: August 03, 2024 Dr. Bill Camacho , Admit Provider Active Star t: August 03, 2024 Dr. Bill Camacho DO Other Provider Active Star t: August 03, 2024 Dr. Rosalina Gatica MD Attending Provider Active Start: August 03, 2024 Dr. Rosalina Gatica MD Other Provider Active St art: August 03, 2024 Dr. Aj Andino MD Other Provider Active Start: August 03, 2024 Dr. Dyllan Tellez MD Other Provider Active Start: August 03, 2024 Dr. Asif Medina MD Other Provider Active Star t: August 03, 2024 Dr. Jose M Gonzalez , Other Provider Active Start : August 03, 2024 Dr. Ned Colbert MD Other Provider Active Sta rt: August 03, 2024 Dr. Sincere Reed MD Other Provider Active St art: August 03, 2024 Dr. Hector Rodriguez MD Other Provider Active S tart: August 03, 2024 Dr. Chio Gamble MD Other Provider Active Start: August 03, 2024 Dr. Rogelio Lim MD Other Provider Active Start : August 03, 2024 Dr. Amador Barrios MD Other Provider Active Start: August 03, 2024 Dr. Angel Henderson MD Other Provider Active Start : August 03, 2024 Dr. Jailyn Casas MD Other Provider Active Star t: August 03, 2024 Dr. Martín Dale MD Other Provider Active Sta rt: August 03, 2024 Dr. Lucia Bardales MD Other Provider Active Sta rt: August 03, 2024 Dr. Stanford Marie MD Other Provider Active Star t: August 03, 2024 Dr. Eliezer Colon MD Other Provider Active St art: August 03, 2024 Dr. Arnlod Leblanc MD Other Provider Active Star t: August 03, 2024 Dr. Dean Worthy , Other Provider Active St art: August 03, 2024 Dr. Carlos Manuel Barr MD Other Provider Active Start: August 03, 2024 Dr. Mustapha Baumann MD Other Provider Active St art: August 03, 2024 Dr. Demetrius Saldana DO Other Provider Active Start: August 03, 2024 Dr. Raheem Sethi MD Other Provider Active Star t: August 03, 2024 Dr. Mohamud Forde MD Other Provider Active Sta rt: August 03, 2024 Team Status: Active Member Role Status Dates Dr. Shahab Adams DO Primary Care Provider Active Start: August 03, 2024 Dr. Carlos Jiménez MD Emergency Provider Active Sta rt: August 03, 2024 Dr. Bill Camacho DO Admit Provider Active Star t: August 03, 2024 Dr. Bill Camacho DO Other Provider Active Star t: August 03, 2024 Dr. Rosalina Gatica MD Referring Provider Active Start: August 03, 2024 Dr. Rosalina Gatica MD Other Provider Active St art: August 03, 2024 Dr. Aj Andino MD Other Provider Active Start: August 03, 2024 Dr. Dyllan Tellez MD Other Provider Active Start: August 03, 2024 Dr. Asif Medina MD Other Provider Active Star t: August 03, 2024 Dr. Jose M Gonzalez , Attending Provider Active S tart: August 03, 2024 Dr. Jose M Gonzalez , Other Provider Active Start : August 03, 2024 Dr. Ned Colbert MD Other Provider Active Sta rt: August 03, 2024 Dr. Sincere Reed MD Other Provider Active St art: August 03, 2024 Dr. Hector Rodriguez MD Other Provider Active S tart: August 03, 2024 Dr. Chio Gamble MD Other Provider Active Start: August 03, 2024 Dr. Rogelio Lim MD Other Provider Active Start : August 03, 2024 Dr. Amador Barrios MD Other Provider Active Start: August 03, 2024 Dr. Angel Henderson MD Other Provider Active Start : August 03, 2024 Dr. Jailyn Casas MD Other Provider Active Star t: August 03, 2024 Dr. Martín Dale MD Other Provider Active Sta rt: August 03, 2024 Dr. Lucia Bardales MD Other Provider Active Sta rt: August 03, 2024 Dr. Stanford Marie MD Other Provider Active Star t: August 03, 2024 Dr. Eliezer Colon MD Other Provider Active St art: August 03, 2024 Dr. Arnold Leblanc MD Other Provider Active Star t: August 03, 2024 Dr. Dean Worthy , Other Provider Active St art: August 03, 2024 Dr. Carlos Manuel Barr MD Other Provider Active Start: August 03, 2024 Dr. Mustapha Baumann MD Other Provider Active St art: August 03, 2024 Dr. Demetrius Saldana , Other Provider Active Start: August 03, 2024 Dr. Raheem Sethi MD Other Provider Active Star t: August 03, 2024 Dr. Mohamud Forde MD Other Provider Active Sta rt: August 03, 2024 Team Status: Active Member Role Status Dates Dr. Shahab Adams DO Primary Care Provider Active Start: August 04, 2024 Dr. Carlos Jiménez MD Emergency Provider Active Sta rt: August 04, 2024 Dr. Bill Camacho , DO Admit Provider Active Star t: August 04, 2024 Dr. Bill Camacho , DO Other Provider Active Star t: August 04, 2024 Dr. Rosalina Gatica MD Attending Provider Active Start: August 04, 2024 Dr. Rosalina Gatica MD Other Provider Active St art: August 04, 2024 Dr. Aj Andino MD Other Provider Active Start: August 04, 2024 Dr. Dyllna Tellez MD Other Provider Active Start: August 04, 2024 Dr. Asif Medina MD Other Provider Active Star t: August 04, 2024 Dr. Jose M Gonzalez , DO Other Provider Active Start : August 04, 2024 Dr. Ned Colbert MD Other Provider Active Sta rt: August 04, 2024 Dr. Sincere Reed MD Other Provider Active St art: August 04, 2024 Dr. Hector Rodriguez MD Other Provider Active S tart: August 04, 2024 Dr. Chio Gamble MD Other Provider Active Start: August 04, 2024 Dr. Rogelio Lim MD Other Provider Active Start : August 04, 2024 Dr. Amador Barrios MD Other Provider Active Start: August 04, 2024 Dr. Angel Henderson MD Other Provider Active Start : August 04, 2024 Dr. Jailyn Casas MD Other Provider Active Star t: August 04, 2024 Dr. Martín Dale MD Other Provider Active Sta rt: August 04, 2024 Dr. Lucia Bardales MD Other Provider Active Sta rt: August 04, 2024 Dr. Stanford Marie MD Other Provider Active Star t: August 04, 2024 Dr. Eliezer Colon MD Other Provider Active St art: August 04, 2024 Dr. Arnold Leblanc MD Other Provider Active Star t: August 04, 2024 Dr. Dean Worthy , Other Provider Active St art: August 04, 2024 Dr. Carlos Manuel Barr MD Other Provider Active Start: August 04, 2024 Dr. Mustapha Baumann MD Other Provider Active St art: August 04, 2024 Dr. Demetrius Saldana DO Other Provider Active Start: August 04, 2024 Dr. Raheem Sethi MD Other Provider Active Star t: August 04, 2024 Dr. Mohamud Forde MD Other Provider Active Sta rt: August 04, 2024 Team Status: Active Member Role Status Dates Dr. Shahab Adams DO Primary Care Provider Active Start: August 15, 2024 Dr. Jose M Gonzalez DO Attending Provider Active S tart: August 15, 2024 Dr. Jose M Gonzalez DO Referring Provider Active S tart: August 15, 2024 Team Status: Inactive Member Role Status Dates Dr. Shahab Adams DO Primary Care Provider Active Start: August 18, 2024 End: August 18, 2024 Dr. Jose M Gonzalez DO Referring Provider Active S tart: August 18, 2024 End: August 18, 2024 Dr. Tamir Campos MD Attending Provider Active S tart: August 18, 2024 End: August 18, 2024 Team Status: Active Member Role Status Dates Dr. Shahab Adams DO Primary Care Provider Active Start: August 18, 2024 Dr. Tamir Campos MD Attending Provider Active S tart: August 18, 2024 Dr. Tamir Campos MD Referring Provider Active S tart: August 18, 2024 Team Status: Inactive Member Role Status Dates Dr. Shahab Adams DO Primary Care Provider Active Start: August 15, 2024 End: August 15, 2024 Dr. Jose M Gonzalez DO Attending Provider Active S tart: August 15, 2024 End: August 15, 2024 Dr. Jose M Gonzalez DO Referring Provider Active S tart: August 15, 2024 End: August 15, 2024 Source Comments (unrecognize d section and content) In the event this informatio n is protected by the Federal Confidentiality of Alcohol and Drug Abuse Patient Records regulations: The Federal rules restrict any use of the information to criminally investigate or prosecute any alcohol or drug abuse patient.[facility]In the event this information is protected by the Federal Confidentiality of Alcohol and Drug Abuse Patient Records regulations: The Federal rules restrict any use of the information to criminally investigate or prosecute any alcohol or drug abuse patient.[facility] HospitalIn the event this information is protected by the Federal Confidentiality of Alcohol and Drug Abuse Patient Records regulations: The Federal rules restrict any use of the information to criminally investigate or prosecute any alcohol or drug abuse patient.[facility] HospitalIn the event this information is protected by the Federal Confidentiality of Alcohol and Drug Abuse Patient Records regulations: The Federal rules restrict any use of the information to criminally investigate or prosecute any alcohol or drug abuse patient.[facility] HospitalIn the event this information is protected by the Federal Confidentiality of Alcohol and Drug Abuse Patient Records regulations: The Federal rules restrict any use of the information to criminally investigate or prosecute any alcohol or drug abuse patient.[facility] HospitalIn the event this information is protected by the Federal Confidentiality of Alcohol and Drug Abuse Patient Records regulations: The Federal rules restrict any use of the information to criminally investigate or prosecute any alcohol or drug abuse patient.[facility] HospitalIn the event this information is protected by the Federal Confidentiality of Alcohol and Drug Abuse Patient Records regulations: The Federal rules restrict any use of the information to criminally investigate or prosecute any alcohol or drug abuse patient.[facility] HospitalIn the event this information is protected by the Federal Confidentiality of Alcohol and Drug Abuse Patient Records regulations: The Federal rules restrict any use of the information to criminally investigate or prosecute any alcohol or drug abuse patient.[facility] HospitalIn the event this information is protected by the Federal Confidentiality of Alcohol and Drug Abuse Patient Records regulations: The Federal rules restrict any use of the information to criminally investigate or prosecute any alcohol or drug abuse patient.[facility] HospitalIn the event this information is protected by the Federal Confidentiality of Alcohol and Drug Abuse Patient Records regulations: The Federal rules restrict any use of the information to criminally investigate or prosecute any alcohol or drug abuse patient.[facility] HospitalIn the event this information is protected by the Federal Confidentiality of Alcohol and Drug Abuse Patient Records regulations: The Federal rules restrict any use of the information to criminally investigate or prosecute any alcohol or drug abuse patient.[facility] HospitalIn the event this information is protected by the Federal Confidentiality of Alcohol and Drug Abuse Patient Records regulations: The Federal rules restrict any use of the information to criminally investigate or prosecute any alcohol or drug abuse patient.[facility] HospitalIn the event this information is protected by the Federal Confidentiality of Alcohol and Drug Abuse Patient Records regulations: The Federal rules restrict any use of the information to criminally investigate or prosecute any alcohol or drug abuse patient.[facility] HospitalIn the event this information is protected by the Federal Confidentiality of Alcohol and Drug Abuse Patient Records regulations: The Federal rules restrict any use of the information to criminally investigate or prosecute any alcohol or drug abuse patient.[facility] HospitalIn the event this information is protected by the Federal Confidentiality of Alcohol and Drug Abuse Patient Records regulations: The Federal rules restrict any use of the information to criminally investigate or prosecute any alcohol or drug abuse patient.[facility] HospitalIn the event this information is protected by the Federal Confidentiality of Alcohol and Drug Abuse Patient Records regulations: The Federal rules restrict any use of the information to criminally investigate or prosecute any alcohol or drug abuse patient.[facility] HospitalIn the event this information is protected by the Federal Confidentiality of Alcohol and Drug Abuse Patient Records regulations: The Federal rules restrict any use of the information to criminally investigate or prosecute any alcohol or drug abuse patient.[facility] HospitalIn the event this information is protected by the Federal Confidentiality of Alcohol and Drug Abuse Patient Records regulations: The Federal rules restrict any use of the information to criminally investigate or prosecute any alcohol or drug abuse patient.[facility] HospitalIn the event this information is protected by the Federal Confidentiality of Alcohol and Drug Abuse Patient Records regulations: The Federal rules restrict any use of the information to criminally investigate or prosecute any alcohol or drug abuse patient.[facility] HospitalIn the event this information is protected by the Federal Confidentiality of Alcohol and Drug Abuse Patient Records regulations: The Federal rules restrict any use of the information to criminally investigate or prosecute any alcohol or drug abuse patient.[facility] HospitalIn the event this information is protected by the Federal Confidentiality of Alcohol and Drug Abuse Patient Records regulations: The Federal rules restrict any use of the information to criminally investigate or prosecute any alcohol or drug abuse patient.[facility] HospitalIn the event this information is protected by the Federal Confidentiality of Alcohol and Drug Abuse Patient Records regulations: The Federal rules restrict any use of the information to criminally investigate or prosecute any alcohol or drug abuse patient.[facility] HospitalIn the event this information is protected by the Federal Confidentiality of Alcohol and Drug Abuse Patient Records regulations: The Federal rules restrict any use of the information to criminally investigate or prosecute any alcohol or drug abuse patient.[facility] HospitalIn the event this information is protected by the Federal Confidentiality of Alcohol and Drug Abuse Patient Records regulations: The Federal rules restrict any use of the information to criminally investigate or prosecute any alcohol or drug abuse patient.[facility] HospitalIn the event this information is protected by the Federal Confidentiality of Alcohol and Drug Abuse Patient Records regulations: The Federal rules restrict any use of the information to criminally investigate or prosecute any alcohol or drug abuse patient.[facility] HospitalIn the event this information is protected by the Federal Confidentiality of Alcohol and Drug Abuse Patient Records regulations: The Federal rules restrict any use of the information to criminally investigate or prosecute any alcohol or drug abuse patient.[facility] HospitalIn the event this information is protected by the Federal Confidentiality of Alcohol and Drug Abuse Patient Records regulations: The Federal rules restrict any use of the information to criminally investigate or prosecute any alcohol or drug abuse patient.[facility] HospitalIn the event this information is protected by the Federal Confidentiality of Alcohol and Drug Abuse Patient Records regulations: The Federal rules restrict any use of the information to criminally investigate or prosecute any alcohol or drug abuse patient.[facility] HospitalIn the event this information is protected by the Federal Confidentiality of Alcohol and Drug Abuse Patient Records regulations: The Federal rules restrict any use of the information to criminally investigate or prosecute any alcohol or drug abuse patient.[facility] HospitalIn the event this information is protected by the Federal Confidentiality of Alcohol and Drug Abuse Patient Records regulations: The Federal rules restrict any use of the information to criminally investigate or prosecute any alcohol or drug abuse patient.[facility] HospitalIn the event this information is protected by the Federal Confidentiality of Alcohol and Drug Abuse Patient Records regulations: The Federal rules restrict any use of the information to criminally investigate or prosecute any alcohol or drug abuse patient.[facility] HospitalIn the event this information is protected by the Federal Confidentiality of Alcohol and Drug Abuse Patient Records regulations: The Federal rules restrict any use of the information to criminally investigate or prosecute any alcohol or drug abuse patient.[facility] HospitalIn the event this information is protected by the Federal Confidentiality of Alcohol and Drug Abuse Patient Records regulations: The Federal rules restrict any use of the information to criminally investigate or prosecute any alcohol or drug abuse patient.[facility] HospitalIn the event this information is protected by the Federal Confidentiality of Alcohol and Drug Abuse Patient Records regulations: The Federal rules restrict any use of the information to criminally investigate or prosecute any alcohol or drug abuse patient.[facility] HospitalIn the event this information is protected by the Federal Confidentiality of Alcohol and Drug Abuse Patient Records regulations: The Federal rules restrict any use of the information to criminally investigate or prosecute any alcohol or drug abuse patient.[facility] HospitalIn the event this information is protected by the Federal Confidentiality of Alcohol and Drug Abuse Patient Records regulations: The Federal rules restrict any use of the information to criminally investigate or prosecute any alcohol or drug abuse patient.[facility] HospitalIn the event this information is protected by the Federal Confidentiality of Alcohol and Drug Abuse Patient Records regulations: The Federal rules restrict any use of the information to criminally investigate or prosecute any alcohol or drug abuse patient.[facility] HospitalIn the event this information is protected by the Federal Confidentiality of Alcohol and Drug Abuse Patient Records regulations: The Federal rules restrict any use of the information to criminally investigate or prosecute any alcohol or drug abuse patient.[facility] HospitalIn the event this information is protected by the Federal Confidentiality of Alcohol and Drug Abuse Patient Records regulations: The Federal rules restrict any use of the information to criminally investigate or prosecute any alcohol or drug abuse patient.[facility] HospitalIn the event this information is protected by the Federal Confidentiality of Alcohol and Drug Abuse Patient Records regulations: The Federal rules restrict any use of the information to criminally investigate or prosecute any alcohol or drug abuse patient.[facility] HospitalIn the event this information is protected by the Federal Confidentiality of Alcohol and Drug Abuse Patient Records regulations: The Federal rules restrict any use of the information to criminally investigate or prosecute any alcohol or drug abuse patient.[facility] HospitalIn the event this information is protected by the Federal Confidentiality of Alcohol and Drug Abuse Patient Records regulations: The Federal rules restrict any use of the information to criminally investigate or prosecute any alcohol or drug abuse patient.[facility] HospitalIn the event this information is protected by the Federal Confidentiality of Alcohol and Drug Abuse Patient Records regulations: The Federal rules restrict any use of the information to criminally investigate or prosecute any alcohol or drug abuse patient.[facility] HospitalIn the event this information is protected by the Federal Confidentiality of Alcohol and Drug Abuse Patient Records regulations: The Federal rules restrict any use of the information to criminally investigate or prosecute any alcohol or drug abuse patient.[facility] HospitalIn the event this information is protected by the Federal Confidentiality of Alcohol and Drug Abuse Patient Records regulations: The Federal rules restrict any use of the information to criminally investigate or prosecute any alcohol or drug abuse patient.[facility] HospitalIn the event this information is protected by the Federal Confidentiality of Alcohol and Drug Abuse Patient Records regulations: The Federal rules restrict any use of the information to criminally investigate or prosecute any alcohol or drug abuse patient.[facility] HospitalIn the event this information is protected by the Federal Confidentiality of Alcohol and Drug Abuse Patient Records regulations: The Federal rules restrict any use of the information to criminally investigate or prosecute any alcohol or drug abuse patient.[facility] HospitalIn the event this information is protected by the Federal Confidentiality of Alcohol and Drug Abuse Patient Records regulations: The Federal rules restrict any use of the information to criminally investigate or prosecute any alcohol or drug abuse patient.[facility] HospitalIn the event this information is protected by the Federal Confidentiality of Alcohol and Drug Abuse Patient Records regulations: The Federal rules restrict any use of the information to criminally investigate or prosecute any alcohol or drug abuse patient.[facility] HospitalIn the event this information is protected by the Federal Confidentiality of Alcohol and Drug Abuse Patient Records regulations: The Federal rules restrict any use of the information to criminally investigate or prosecute any alcohol or drug abuse patient.[facility] HospitalIn the event this information is protected by the Federal Confidentiality of Alcohol and Drug Abuse Patient Records regulations: The Federal rules restrict any use of the information to criminally investigate or prosecute any alcohol or drug abuse patient.[facility] HospitalIn the event this information is protected by the Federal Confidentiality of Alcohol and Drug Abuse Patient Records regulations: The Federal rules restrict any use of the information to criminally investigate or prosecute any alcohol or drug abuse patient.[facility] HospitalIn the event this information is protected by the Federal Confidentiality of Alcohol and Drug Abuse Patient Records regulations: The Federal rules restrict any use of the information to criminally investigate or prosecute any alcohol or drug abuse patient.[facility] HospitalIn the event this information is protected by the Federal Confidentiality of Alcohol and Drug Abuse Patient Records regulations: The Federal rules restrict any use of the information to criminally investigate or prosecute any alcohol or drug abuse patient.[facility] HospitalIn the event this information is protected by the Federal Confidentiality of Alcohol and Drug Abuse Patient Records regulations: The Federal rules restrict any use of the information to criminally investigate or prosecute any alcohol or drug abuse patient.[facility] Reason for Visit (unrecogniz ed section and content) Reason Comments New Reason Onset Date Comments SPP Inflammatory Conditions - Medication Refill 12/25/2022 Humira Reason Comments Results Reason Onset Date Comments SPP Inflammatory Conditions - Medication Refill 01/20/2023 Humira CF Reason Onset Date Comments SPP Inflammatory Conditions - Medication Refill 02/17/2023 Humira CF Reason Comments Refill Request Reason Comments Gout Reason Comments Patient Question Patient Update Reason Onset Date Comments SPP Inflammatory Conditions - Treatment Referral 10/01/2023 Actemra Insurance Authorization 10/01/2023 PA submi ssion pending Reason Comments Joint Pain Reason Onset Date Comments SPP Inflammatory Conditions - Medication Refill 11/11/2023 Humira Reason Onset Date Comments SPP Inflammatory Conditions - Discontinuation 11/11/2023 Actemra - switching back to Humira Reason Onset Date Comments SPP Inflammatory Conditions - Medication Refill 11/30/2023 Humira Reason Onset Date Comments SPP Inflammatory Conditions - Treatment Referral 12/02/2023 Humira Insurance Authorization 12/02/2023 PA submi tted Reason Comments Patient Update Patient Question Reason Comments Appointment Reason Comments Joint Pain Rheumatoid Arthritis Reason Onset Date Comments SPP Inflammatory Conditions - Medication Refill 01/13/2024 Humira Reason Onset Date Comments Refill Request 01/15/2024 Reason Comments Patient Update Reason Onset Date Comments SPP Inflammatory Conditions - Medication Refill 02/09/2024 Humira CF Reason Onset Date Comments Refill Request 02/25/2024 Reason Onset Date Comments SPP Inflammatory Conditions - Medication Refill 03/07/2024 Humira CF Reason Onset Date Comments SPP Inflammatory Conditions - Follow-up 03/22/19 Humira CF Insurance Authorization 03/22/2024 PA renew al approved Reason Onset Date Comments Refill Request 03/29/2024 Reason Onset Date Comments SPP Inflammatory Conditions - Medication Refill 04/04/2024 Humira CF Reason Comments Plaquenil Check Reason Comments Rheumatoid Arthritis Reason Onset Date Comments Refill Request 04/14/2024 Reason Onset Date Comments Refill Request 04/20/2024 Reason Onset Date Comments Refill Request 04/26/2024 Reason Onset Date Comments Refill Request 05/03/2024 Reason Onset Date Comments SPP Inflammatory Conditions - Medication Refill 05/04/2024 Humira (CF) Reason Onset Date Comments SPP Inflammatory Conditions - Follow-up 06/01/19 Humira CF Insurance Authorization 05/31/2024 [facility] Appro smooth New Insurance Reason Onset Date Comments SPP Inflammatory Conditions - Medication Refill 06/01/2024 Humira CF Reason Onset Date Comments Refill Request 07/07/2024 Reason Onset Date Comments Refill Request 08/16/2024 Reason Onset Date Comments SPP Inflammatory Conditions - Medication Refill 08/23/2024 Humira CF INFORMATION SOURCE (unrecogn ized section and content) DATE CREATED AUTHOR 08/05/2024 [facility] DATE CREATED AUTHOR AUTHOR'S ORGANIZ ATION 08/24/2024 [facility] FOR RECORDS PERTAINING TO PATIENTS WHO ARE OR HAVE BEEN ENROLLED IN A CHEMICAL DEPENDENCY/SUBSTANCEABUSE PROGRAM, SOME INFORMATION MAY BE OMITTED. This clinical summary was aggregated from multiple sources. Caution should be exercised in using it in the provision of clinical care. This summary normalizes information from multiple sources, and as a consequence, information in this document may materially change the coding, format and clinical context of patient data. In addition, data may be omitted in some cases. CLINICAL DECISIONS SHOULD BE BASED ON THE PRIMARY CLINICAL RECORDS. [employer] provides no warranty or guarantee of the accuracy or completeness of information in this document.
== END | disposition home or self-care (01) ==
LOC: LABSPEC 12:06
PROVIDERS: PCP Family Medicine; Referring Provider Family Medicine; Visit Provider Family Medicine
DX: R05.9 Cough, unspecified (principal)
CPT/HCPCS: 87070; 87077; 87186; 87205

== ENCOUNTER 2024-08-31 11:09 | Emergency (ER) | payer MEDICARE, MEDICAID, SELFPAY ==
[2024-08-31 11:09] VITALS: BP 149/73; PULSE 96; RESP 22; TEMP 37; O2SAT 95
--- NOTE | 2024-08-31 12:38 | ED.VIS.DYS ---
HPI History of Present Illness Chief Complaint: Shortness of Breath Narrative Narrative: 63-year-old female past medical history of obstructive sleep apnea, chronic hypoxemia presents with increasing shortness of breath. She states that a few months ago, she was diagnosed with pulmonary emboli. Since then, she has had an oxygen requirement. She states that she found out that she has a clotting disorder. She currently takes a blood thinner, and has not missed a dose. She presents with increasing shortness of breath and cough with sputum production. Subjective fever and chills as well. Of note, she states she had a positive sputum culture by her primary care provider and was placed on Levaquin 1 to 2 days ago. She presents because of the increasing shortness of breath. [facility] Medical History Pneumonia Anticoagulant long-term use Chronic respiratory failure with hypoxia Multilobar lung infiltrate SOB (shortness of breath) MRSA (methicillin resistant staph aureus) culture positive Anticoagulant long-term use History of hypothyroidism Elevated blood-pressure reading without diagnosis of hypertension SIRS (systemic inflammatory response syndrome) Sinus tachycardia Acute on chronic hypoxic respiratory failure Acute bronchospasm Pulmonary embolus Left lower lobe pneumonia Post-menopausal Depression Anxiety Thyroid disease Anemia Gastric reflux Non-smoker Leg cramps History of pain when walking Hypothyroid CKD (chronic kidney disease) Hypertension Infection of spinal cord stimulator Rheumatoid arthritis Chronic pain Arthritis Fibromyalgia Migraines Home Medications ?Medication ?Instructions ?Recorded ?Last Taken ?Type buprenorphine 20 mcg/hour weekly 1 patch transdermal FERNANDEZ PAIN 01/13/21 07/31/24 History transdermal patch (Butrans) hydrocodone-acetaminophen 5-325mg 1 tab PO Q6H PRN Pain 01/13/21 07/08/24 History 5mg-325mg levothyroxine 88 mcg tablet 88 mcg PO DAILY thyroid 01/13/21 08/01/24 History (Synthroid) omeprazole 40 mg capsule,delayed 40 mg PO DAILY reflux 01/13/21 08/01/24 History release triamterene 37.5 1 cap PO DAILY blood pressure 01/13/21 08/01/24 History mg-hydrochlorothiazide 25 mg capsule gabapentin 400 mg capsule 400 mg PO TID PAIN 05/08/21 08/01/24 History cholecalciferol (vitamin D3) 125 125 mcg PO DAILY SUPPLEMENT 06/01/22 08/01/24 History mcg (5,000 unit) capsule PRIMAL DEFENSE 410 mg PO 1XD probiotic 11/12/22 08/01/24 History metoprolol succinate 50 mg 50 mg PO QHS blood pressure 11/13/22 07/31/24 History tablet,extended release 24 hr allopurinol 300 mg tablet 300 mg PO DAILY gout 06/10/24 08/01/24 History adalimumab 40 mg/0.4 mL 40 mg subcut FERNANDEZ prevent infection 06/27/24 07/31/24 History subcutaneous pen kit (Humira(CF) Pen) ferrous gluconate 324 mg (38 mg 324 mg PO DAILY supplement 06/27/24 08/01/24 History iron) tablet albuterol sulfate 2.5 mg/3 mL 2.5 mg (3 mL) inhalation Q4H PRN 07/08/24 Unknown Rx (0.083 %) solution for nebulization wheezing #25 vials albuterol sulfate 90 mcg/actuation 2 inh inhalation Q4H PRN shortness 07/08/24 Unknown History breath activated powder inhaler of breath or wheezing apixaban 5 mg tablet (Eliquis) 5 mg PO BID blood thinner 08/01/24 08/01/24 History magnesium oxide 400 mg (241.3 mg 400 mg PO QPM supplement 08/01/24 07/31/24 History magnesium) tablet potassium chloride 20 mEq 20 meq PO TID SUPPLEMENT 08/18/24 Unknown History tablet,extended release(part/cryst) prednisone 10 mg tablet 7 mg PO DAILY inflammation 08/18/24 Unknown History ipratropium 0.5 mg-albuterol 3 mg 3 ml inhalation Q6H PRN shortness 08/31/24 Unknown Rx (2.5 mg base)/3 mL nebulization of breath #90 mL soln Allergy/AdvReac Type Severity Reaction Status Date / Time oxycodone Allergy Rash Verified 08/18/24 10:51 adhesive tape AdvReac Rash Verified 08/18/24 10:51 Family History Mother Hypertension Colon polyps Father Lymphoma Surgical History Hx of hysterectomy History of carpal tunnel release Hx of thyroidectomy Hx of cholecystectomy Hx of tonsillectomy Social History household members: none Smoking Status: Never smoker alcohol intake: never substance use type: does not use ROS ROS ED ROS Narrative Review of systems positive for subjective fever and chills, positive productive cough. Increasing shortness of breath. History of pulmonary embolism and pneumonias. No leg swelling, no other symptoms. EXAM Physical Exam Narrative Exam Narrative: Afebrile. Vital signs noted. Nontoxic-appearing. Cardiovascular examination of is a regular rate and rhythm. Coarse breath sounds bilaterally, white cough on examination, no expiratory wheezing. Moving a good amount of air. Abdomen soft and nontender with normoactive bowel sounds. No appreciable pedal edema. Const Vital Signs: 08/31/24 11:09 08/31/24 12:45 08/31/24 12:45 Temperature 98.6 F 99.3 F H Temperature Source Oral Oral Pulse Rate 96 86 83 Respiratory Rate 22 H 26 H 19 H Respiratory Effort Respiratory Depth Respiratory Pattern Blood Pressure 149/73 H 131/73 H 138/62 H Blood Pressure Mean 98 92 87 Pulse Ox 95 98 96 Oxygen Delivery Method Nasal Cannula Nasal Cannula Nasal Cannula Oxygen Flow Rate (L/min) 3 3 3 08/31/24 12:45 08/31/24 12:45 08/31/24 12:49 Temperature Temperature Source Pulse Rate 89 Respiratory Rate 18 Respiratory Effort Short of Breath Respiratory Depth Shallow Respiratory Pattern Tachypnea Normal Blood Pressure Blood Pressure Mean Pulse Ox Oxygen Delivery Method Nasal Cannula Nasal Cannula Oxygen Flow Rate (L/min) 3 08/31/24 13:00 Temperature Temperature Source Pulse Rate 92 Respiratory Rate 25 H Respiratory Effort Respiratory Depth Respiratory Pattern Blood Pressure 138/62 H Blood Pressure Mean 87 Pulse Ox 98 Oxygen Delivery Method Room Air Oxygen Flow Rate (L/min) MDM MDM MDM Narrative Medical decision making narrative: Differential diagnosis includes but not limited to pneumonia versus pneumothorax versus pulmonary embolism. She does have history of pulmonary embolism and is already anticoagulated not missing a dose. I do not feel she requires another D-dimer or CTA of the chest. She is already started antibiotics in the form of Levaquin. I will obtain a chest x-ray and basic laboratory work. CHF is also in the differential diagnosis, but she does not have a history of this. She was given a DuoNeb aerosolized treatment. I reviewed her laboratory work and she has an elevated white count of 16.4. When compared to prior labs, she has had leukocytosis in the past, almost chronically. Hemoglobin normal at 12.9 with hematocrit 40.8, platelet count normal at 307. Electrolyte panel is grossly unremarkable except for glucose of 117, CO2 of 29.5, normal anion gap. With the thought of heart failure, BNP was obtained and is normal at 107. Chest x-ray interpreted by myself independently shows chronic changes but no acute consolidation or pneumothorax. There are chronic changes. I reviewed the radiology report which confirms my independent interpretation. EKG was obtained and interpreted by myself independently as normal sinus rhythm at 88 bpm without ectopy or acute ST changes. No STEMI. Upon repeat examination, she states that she is feeling improved. She has pulmonary function tests scheduled for tomorrow. As she is only showing chronic changes, I do feel that she should probably have that performed tomorrow. She requested a prescription for DuoNeb as it seems to help her with her breathing more than straight albuterol. I did write for this, and told her to continue her Levaquin that was started by her primary care provider. Her pulse ox is 98% on her 3 L. I do not feel she requires observation or admission at this time. We also discussed steroids, but she states her curing pickling packer does not like her to be on them. Return instructions to the emergency department were reviewed. Disposition is discharged home in stable condition. History & Record Review Discussion w/independent historian: Patient Additional record(s) reviewed:: Prior ED visit and Prior labs Lab Data Attestation: I reviewed the patient's lab results. Labs: Laboratory Results - last 24 hr 08/31/24 08/31/24 12:47 12:55 WBC 16.4 H RBC 4.32 Hgb 12.9 Hct 40.8 MCV 94.4 MCH 29.9 MCHC 31.6 L RDW Std Deviation 50.7 H RDW Coeff of Hiro 14.6 Plt Count 307 MPV 9.4 Immature Gran % (Auto) 0.500 Neut % (Auto) 79.0 H Lymph % (Auto) 4.3 L Levy % (Auto) 7.9 Eos % (Auto) 7.6 H Baso % (Auto) 0.7 Absolute Neuts (auto) 13.0 H Absolute Lymphs (auto) 0.70 L Nucleated RBC % 0 Sodium 140 Potassium 3.7 Chloride 100 Carbon Dioxide 29.5 Anion Gap 11 BUN 16 Creatinine 0.76 Est GFR (MDRD) Non-Af 87 BUN/Creatinine Ratio 21.3 H Glucose 117 H Calcium 9.9 NT pro BNP II 107 Radiography Diagnostic Testing: Clinical Impression(s) from Imaging Studies Chest X-Ray 08/31/24 13:52 IMPRESSION: Underlying chronic lung changes are again present. No acute pneumonic process is clearly appreciated. No pleural effusion or pneumothorax is seen. The cardiomediastinal silhouette is within the normal range. Generalized osteopenia is present. Moderate degenerative changes of the thoracic spine, particularly the thoracolumbar region, identified. No acute osseous process is noted. Reading Location: [place] [address] Discharge Plan Triage Chief Complaint: Shortness of Breath ED Provider: Jeremiah Duong Dx/Rx/DC Orders Clinical Impression: SOB (shortness of breath), Dyspnea Instructions: ED Dyspnea Prescriptions: New ipratropium-albuterol 0.5 mg-3 mg(2.5 mg base)/3 mL solution for nebulization 3 ml inhalation Q6H PRN (Reason: shortness of breath) Qty: 90 0RF No Action gabapentin 400 mg capsule 400 mg PO TID hydrocodone-acetaminophen 5-325 mg Tablet 1 tab PO Q6H PRN (Reason: Pain) omeprazole 40 mg Capsule,Delayed Release(Dr/Ec) 40 mg PO DAILY triamterene-hydrochlorothiazid 37.5-25 mg Capsule 1 cap PO DAILY levothyroxine [Synthroid] 88 mcg Tablet 88 mcg PO DAILY buprenorphine [Butrans] 20 mcg/hour Patch Weekly 1 patch TRANSDERMAL FERNANDEZ potassium chloride 20 mEq tablet,ER particles/crystals 20 meq PO TID Rx Instructions: 20 mEq orally 2 tabs am and 1 tab pm; cholecalciferol (vitamin D3) 125 mcg (5,000 unit) Capsule 125 mcg PO DAILY PRIMAL DEFENSE 410 mg PO 1XD Rx Instructions: DIETARY SUPPLEMENT metoprolol succinate 50 mg Tablet Extended Release 24 Hr 50 mg PO QHS allopurinol 300 mg tablet 300 mg PO DAILY ferrous gluconate 324 mg (38 mg iron) tablet 324 mg PO DAILY Humira(CF) Pen 40 mg/0.4 mL pen injector kit 40 mg subcut FERNANDEZ prednisone 10 mg tablet 7 mg PO DAILY Eliquis 5 mg tablet 5 mg PO BID magnesium oxide 400 mg (241.3 mg magnesium) tablet 400 mg PO QPM albuterol sulfate 90 mcg/actuation aerosol powdr breath activated 2 inh inhalation Q4H PRN (Reason: shortness of breath or wheezing) albuterol sulfate 2.5 mg /3 mL (0.083 %) solution for nebulization 2.5 mg inhalation Q4H PRN Qty: 25 0RF Rx Instructions: Use q4 hours and PRN for wheezing Primary Care Provider: Pk Donahue Referrals: Pk Donahue, DO [Primary Care Provider] - Activity Restrictions/Additional Instructions: Use DuoNeb aerosolized treatments every 6 hours instead of the albuterol if it is working better for you. Follow-up with your curing pickling packer Dr. Gonzalez as soon as possible. Use your oxygen as previously instructed. Finish your Levaquin/levofloxacin that was given to you by your primary care provider. Print Language: Maltese Disposition Disposition: Home, Self Care
[2024-08-31 12:45] VITALS: BP 131/73; BP 138/62; PULSE 83; PULSE 86; RESP 19; RESP 26; TEMP 37.4; O2SAT 96; O2SAT 97; O2SAT 98
[2024-08-31] MEDS: Ipratropium/Albuterol Sulfate 3 ML AMPUL.NEB INHALATION (12:48)
[2024-08-31 12:49] VITALS: PULSE 89; RESP 18
[2024-08-31 13:00] VITALS: BP 138/62; PULSE 92; RESP 25; O2SAT 98
[2024-08-31 13:02] LABS: Basophil# 0.11 X10^3/uL; Basophil% 0.7 % (0-1); Eosinophil# 1.25 X10^3/uL; Eosinophils% 7.6 % (0-5); Hematocrit 40.8 % (37-47); Hemoglobin 12.9 g/dL (12.0-15.0); Lymphocyte % 4.3 % (19-41); Mean Corp Hgb Conc 31.6 g/dL (32-36); Mean Corpuscular Hgb 29.9 pg (27.0-32.0); Mean Corpuscular Volume 94.4 fL (81-99); Mean Platelet Vol. 9.4 fl (6.2-12.0); Monocyte# 1.29 X10^3/uL; Monocyte% 7.9 % (0-10); NRBC Flagged by Analyzer 0 % (0-5); Neutrophil # 12.98 X10^3/uL (2.7-7.7); Platelet Count 307 K/mm3 (150-450); RBC Distribution Width CV 14.6 % (11.6-14.6); RBC Distribution Width SD 50.7 fl (35.1-43.9); Red Blood Count 4.32 M/mm3 (4.2-5.4); White Blood Count 16.4 K/mm3 (4.4-11.0)
[2024-08-31 13:26] LABS: Anion Gap 11 (5-15); BUN 16 mg/dL (4-19); BUN/Creat Ratio 21.3 RATIO (10-20); Calcium,Total 9.9 mg/dL (7.6-11.0); Carbon Dioxide 29.5 mmol/L (21.0-32.0); Chloride 100 mmol/L (98-108); Creatinine, Serum 0.76 mg/dL (0.70-1.20); EST Glomerular Filtration Rate 87 (>60); Glucose 117 mg/dL (70-99); Potassium 3.7 mmol/L (3.3-5.1); Pro- Brain NATRIURETIC PEPTIDE 107 pg/mL (<=900); Sodium Level 140 mmol/L (133-145)
--- NOTE | 2024-08-31 13:52 | RAD_ITS ---
PROCEDURE: CHEST PA AND LATERAL 08/31/2024 REASON FOR EXAM: COUGH, SHORTNESS OF BREATH TECHNIQUE: CHEST PA AND LATERAL COMPARISON: Chest x-ray of chest x-ray 08/01/2024. Lungs are hypoinflated.. RAD/Chest PA and Lateral IMPRESSION: Underlying chronic lung changes are again present. No acute pneumonic process is clearly appreciated. No pleural effusion or pneumothorax is seen. The cardiomediastinal silhouette is within the normal range. Generalized osteopenia is present. Moderate degenerative changes of the thoracic spine, particularly the thoracolu mbar region, identified. No acute osseous process is noted. Reading Location: [place] [id number]
[2024-08-31 15:00] VITALS: BP 125/70; PULSE 89; RESP 23; O2SAT 97
[2024-08-31 15:31] VITALS: BP 117/64; PULSE 79; RESP 20; TEMP 36.6; O2SAT 97
== END 2024-08-31 15:36 | disposition home or self-care (01) ==
PROVIDERS: Emergency Provider Emergency Medicine; PCP Family Medicine; Visit Provider Emergency Medicine
DX: R06.02 Shortness of breath (principal); M06.9 Rheumatoid arthritis, unspecified; J96.11 Chronic respiratory failure with hypoxia; I10 Essential (primary) hypertension; F32.A Depression, unspecified; F41.9 Anxiety disorder, unspecified; K21.9 Gastro-esophageal reflux disease without esophagitis; E03.9 Hypothyroidism, unspecified; M79.7 Fibromyalgia; D64.9 Anemia, unspecified; G47.33 Obstructive sleep apnea (adult) (pediatric); Z87.01 Personal history of pneumonia (recurrent); Z79.01 Long term (current) use of anticoagulants; Z86.711 Personal history of pulmonary embolism; Z79.890 Hormone replacement therapy; Z79.899 Other long term (current) drug therapy
CPT/HCPCS: 71046; 80048; 83880; 85025; 93005; 94640; 99284

== ENCOUNTER → 2024-09-01 | Outpatient (CLI) | payer MEDICARE, MEDICAID, SELFPAY | END | disposition home or self-care (01) | LOC: PSN 08:53 | PROVIDERS: PCP Family Medicine; Referring Provider Internal Medicine Critical Care Medicine; Visit Provider Internal Medicine Critical Care Medicine | DX: R06.02 Shortness of breath (principal) | CPT/HCPCS: 94060; 94726; 94729 ==

== ENCOUNTER → 2024-10-19 | Outpatient (CLI) | payer MEDICARE, MEDICAID, SELFPAY ==
--- NOTE | 2024-10-19 19:12 | CT_ITS ---
PROCEDURE: CHEST WITHOUT CONTRAST 10/19/2024 REASON FOR EXAM: PNEUMONIA, UNSPECIFIED ORGANISM TECHNIQUE: Chest CT without contrast. Coronal and Sagittal reconstruction series were provided. One or more dose reduction techniques were used (e.g., Automated exposure control, adjustment of the mA and/or kV according to patient size, use of iterative reconstruction technique RADIATION DOSE SUMMARY: CTDlvol: 9.76 mGy DLP: 324.36 mGycm COMPARISON: CTA chest 06/10/2024. FINDINGS: Lymph nodes: Scattered nonenlarged multiple mediastinal lymph nodes. Heart and Vasculature: Normal heart size. Atherosclerotic calcification of thoracic aorta. Coronary Artery Calcifications: Absent Lungs and Airways: Interval increase in size number and extent of bilateral widespread ground-glass opacities. These findings are again more prominent within bilateral upper lobes. Pleura: Bibasilar pleural-based atelectasis. Upper Abdomen: Moderate hiatal hernia. Bones: Degenerative changes of the thoracic spine. CT/Chest without Contrast IMPRESSION: Coronary artery calcification (CAC) is is absent Interval increase in size number and extent of previously seen bilateral widesp read ground-glass opacities. Finding are suspicious for underlying infectious/inflammatory process such as pneumonia. Sh ort-term attention on follow-up imaging is recommended. Furthermore pulmonary consultation can be obtained as clinically indicated. Reading Location: [id number]
== END | disposition home or self-care (01) ==
LOC: CT 19:09
PROVIDERS: PCP Family Medicine; Referring Provider Nurse Practitioner Family; Visit Provider Nurse Practitioner Family
DX: J18.9 Pneumonia, unspecified organism (principal)
CPT/HCPCS: 71250

== ENCOUNTER → 2024-10-31 | Outpatient (CLI) | payer MEDICARE, MEDICAID, SELFPAY ==
[2024-10-31 11:52] LABS: Hematocrit 43.6 % (37-47); Hemoglobin 14.4 g/dL (12.0-15.0); Immature Granulocytes Count 0.100 X10^3/uL (0.0-0.0); Mean Corp Hgb Conc 33.0 g/dL (32-36); Mean Corpuscular Volume 91.6 fL (81-99); Mean Platelet Vol. 10.2 fl (6.2-12.0); NRBC Flagged by Analyzer 0 % (0-5); Platelet Count 335 K/mm3 (150-450); RBC Distribution Width CV 13.4 % (11.6-14.6); RBC Distribution Width SD 45.4 fl (35.1-43.9); Red Blood Count 4.76 M/mm3 (4.2-5.4); White Blood Count 12.5 K/mm3 (4.4-11.0)
[2024-11-03 09:09] LABS: ANTINUCLEAR ANTIBODIES DIRECT Positive (Negative); Anti-Chromatin <0.2 AI (0.0-0.9); Anti-Jo <0.2 AI (0.0-0.9); Anti-dsDNA Ab <1 IU/mL (0-9); Ash, White <0.10 kU/L (Class 0); Black Walnut <0.10 kU/L (Class 0); Cat Hair / Dander,Stand <0.10 kU/L (Class 0); Cedar, Mountain <0.10 kU/L (Class 0); Cockroach, American <0.10 kU/L (Class 0); Dog Epithelia <0.10 kU/L (Class 0); Elm, American White <0.10 kU/L (Class 0); Mulberry, White <0.10 kU/L (Class 0); Oak, White <0.10 kU/L (Class 0); Pigweed, Rough <0.10 kU/L (Class 0); Ragweed, Short/Common 0.17 kU/L (Class 0/I); SJOGREN'S Anti-SS-A test < 0.2 AI (0.0-0.9); SJOGREN'S Anti-SS-B test < 0.2 AI (0.0-0.9); Sycamore, American <0.10 kU/L (Class 0)
== END | disposition home or self-care (01) ==
PROVIDERS: PCP Family Medicine; Referring Provider Internal Medicine Critical Care Medicine; Visit Provider Internal Medicine Critical Care Medicine
DX: R93.89 Abnormal findings on diagnostic imaging of other specified body structures (principal); J45.909 Unspecified asthma, uncomplicated
CPT/HCPCS: 82785; 85025; 86003; 86037; 86038; 86200; 86225; 86235; 86431; 86606

== ENCOUNTER 2024-11-04 11:01 | Day surgery (SDC) | payer MEDICARE, MEDICAID, SELFPAY ==
--- NOTE | 2024-11-02 13:43 | PAT.ANESEVAL ---
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 When Was Last Pacemaker Check QUESTION #4 FULL TEXT: You/Your Family Experience fever (hyperthermia) with Anesthesia Last Oral Intake Last Oral intake: Last Oral Intake NPO since Meds taken in AM with sips of water? 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 test engineer Female Yes 11/02/24 11:51 HX of Motion Sickness Yes 11/02/24 11:51 HX of N/V After Surgery No 11/02/24 11:51 Non-Smoker Yes 11/02/24 11:51 Duration of Surgery greater No 11/02/24 11:51 than 60 minutes Number of Risk Factors 3 11/02/24 11:51 PONV Score Moderate Risk 11/02/24 11:51 Height & Weight Height & Weight: Anesthesia: Height & Weight Height 5 ft 3 in 10/31/24 06:47 Respiratory Assessment Respiratory Assessment - ceramics test engineer: Respiratory Tract Infection Hx - ceramics test engineer Hx Respiratory Tract Infection No 11/02/24 11:51 STOP Sleep Apnea STOP Sleep Apnea - ceramics test engineer: STOP Sleep Apnea - ceramics test engineer Hx Hypertension Yes: CONTROLLED ON MED 11/02/24 11:51 Hx Sleep Apnea No 11/02/24 11:51 CPAP BIPAP Do you snore loudly (louder No 11/02/24 11:51 than talking or can be heard Do you often feel tired/ No 11/02/24 11:51 fatigued/ sleepy during daytime? Has anyone observed you stop No 11/02/24 11:51 breathing during sleep? STOP Results Negative 11/02/24 11:51 QUESTION #5 FULL TEXT : Do you snore loudly (louder than talking or can be heard through closed doors)? 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 Specify any problems Hx of Preganancy in last 3 No 11/02/24 11:51 Months Nurse Filling Out Transfusion VCHRISTIN 11/02/24 11:51 & Questions: Date: 11/02/24 11/02/24 11:51 Time: 11:53 11/02/24 11:51 Patient unable to answer at this time (ie. confused, unrespo /Reproduction History /Reproductive History - ceramics test engineer: /Reproductive Hx- ceramics test engineer Hx Now No 11/02/24 11:51 Gestational Age (in weeks): EDC: Hx Hx Para Hx Section SAB No 11/02/24 11:51 [facility] Medical History (Updated 11/02/24 @ 11:51 by Livia Kwon) MRSA infection History of steroid therapy Difficulty chewing History of hiatal hernia On home oxygen therapy COPD (chronic obstructive pulmonary disease) Shortness of breath on exertion History of edema History of echocardiogram Chest pain Pneumonia Anticoagulant long-term use Chronic respiratory failure with hypoxia Multilobar lung infiltrate MRSA (methicillin resistant staph aureus) culture positive SOB (shortness of breath) Candidiasis of mouth Anticoagulant long-term use History of hypothyroidism Elevated blood-pressure reading without diagnosis of hypertension SIRS (systemic inflammatory response syndrome) Sinus tachycardia Acute on chronic hypoxic respiratory failure Acute bronchospasm Pulmonary embolus Left lower lobe pneumonia Post-menopausal Depression Anxiety Thyroid disease Anemia Gastric reflux Non-smoker Leg cramps History of pain when walking Hypothyroid CKD (chronic kidney disease) Hypertension Infection of spinal cord stimulator Rheumatoid arthritis Chronic pain Arthritis Fibromyalgia Migraines Home Medications ?Medication ?Instructions ?Recorded ?Last Taken ?Type buprenorphine 20 mcg/hour weekly 1 patch transdermal FERNANDEZ PAIN 01/13/21 07/31/24 History transdermal patch (Butrans) levothyroxine 88 mcg tablet 88 mcg PO DAILY thyroid 01/13/21 08/01/24 History (Synthroid) omeprazole 40 mg capsule,delayed 40 mg PO DAILY reflux 01/13/21 08/01/24 History release triamterene 37.5 1 cap PO DAILY blood pressure 01/13/21 08/01/24 History mg-hydrochlorothiazide 25 mg capsule gabapentin 400 mg capsule 400 mg PO TID PAIN 05/08/21 08/01/24 History cholecalciferol (vitamin D3) 125 125 mcg PO DAILY SUPPLEMENT 06/01/22 08/01/24 History mcg (5,000 unit) capsule PRIMAL DEFENSE 410 mg PO 1XD probiotic 11/12/22 08/01/24 History metoprolol succinate 50 mg 50 mg PO QHS blood pressure 11/13/22 07/31/24 History tablet,extended release 24 hr allopurinol 300 mg tablet 300 mg PO DAILY gout 06/10/24 08/01/24 History ferrous gluconate 324 mg (38 mg 324 mg PO DAILY supplement 06/27/24 08/01/24 History iron) tablet albuterol sulfate 90 mcg/actuation 2 inh inhalation Q4H PRN shortness 07/08/24 Unknown History breath activated powder inhaler of breath or wheezing apixaban 5 mg tablet (Eliquis) 5 mg PO BID blood thinner 08/01/24 08/01/24 History magnesium oxide 400 mg (241.3 mg 400 mg PO QPM supplement 08/01/24 07/31/24 History magnesium) tablet potassium chloride 20 mEq 20 meq PO TID SUPPLEMENT 08/18/24 Unknown History tablet,extended release(part/cryst) ipratropium 0.5 mg-albuterol 3 mg 3 ml inhalation Q6H PRN shortness 08/31/24 Unknown Rx (2.5 mg base)/3 mL nebulization of breath #90 mL soln fluticasone fur. 200 mcg-umeclid 1 inh inhalation Q24H #60 ea 09/13/24 Unknown Rx 62.5 mcg-vilant 25 mcg inhalat.powder (Trelegy Ellipta) fluconazole 100 mg tablet 100 mg PO QDAY #7 tabs 10/07/24 Unknown Rx (Diflucan) Allergy/AdvReac Type Severity Reaction Status Date / Time oxycodone Allergy Rash Verified 11/02/24 11:37 adhesive tape AdvReac Rash Verified 11/02/24 11:37 Family History Mother Hypertension Colon polyps Father Lymphoma Surgical History (Updated 11/02/24 @ 11:51 by Livia Kwon) History of colonoscopy Hx of hysterectomy History of carpal tunnel release Hx of thyroidectomy Hx of cholecystectomy Hx of tonsillectomy Social History household members: none Smoking Status: Never smoker alcohol intake: never substance use type: does not use Audit: Pertinent Findings Pertinent Findings EKG Perinent findings: EKG 08/31/2024: Normal sinus rhythm, possible left atrial enlargement, borderline EKG. Echo (EF%) pertinent findings: Echocardiogram dated 06/08/2024 Interpretation Summary Normal LV size. Left ventricular systolic function is normal. The left ventricular ejection fraction is 60 %. Trivial pericardial effusion. Structurally normal valves. Recommendation Anesthesia Recommendation Anesthesia recommendation: OPTIMIZED for anesthesia
[2024-11-04] VITALS (10 sets, daily range): BP systolic 98–123; BP diastolic 61–74; PULSE 69–75; RESP 16–20; TEMP 36.3–37.1; O2SAT 93–96; BMI 27.3
--- NOTE | 2024-11-04 | CYSPIN_PTH ---
PATIENT: SAVANNAH AGUIRRE LOC: EN U#:[id number] AGE/SX: 64/F ROOM: RE11/04/[address]: Dr. Jose M Gonzalez DO : 1960 BED: DIS: 11/04/2024 SPEC #: [id number] RECD: 11/04/24 12:42 STATUS: JORDEN RECindy #: [id number] WENDY: 11/04/24 00:[address]: Jose M Gonzalez DEPT: CYTOLOGY RECD BY: Edenilson Vazquez ENTERED: 11/04/24 14:39 SP TYPE: CYSPIN FL OTHR DR: Dr. Pk Donahue DO Tissues: A - Right lower lobe of lung, NOS Procedures: Pap Stain (control) Special Stain Group II Surgery Specimen Level IV AFB Stain (control) GMS Stain (control) Cytospin Fluid HEADER OPERATION: Bronchoscopy with BAL PRE-OP DIAGNOSIS: Abnormal chest CT TISSUE SUBMITTED: A- Right lower lobe fluid for cytology DIAGNOSIS CYTOLOGY A. Lung, right lower lobe, BAL (cytospin, cellblock): - No malignant cells identified. - Acute inflammation noted. - AFB stain is negative for acid fast bacilli. - GMS stain is negative for pneumocystis and fungal organisms. CYTOLOGY STUDY Slides are reviewed. CYTOLOGY GROSS A. Received is 15 ml of cloudy-colorless fluid labeled with the patient's name and and designated per the requisition as Right lower lobe. Submitted for cytology and cell block preparation. 11/04/2024 CPT: 58930,25358, 49707h1
--- NOTE | 2024-11-04 11:37 | PCM.PRE.AN2 ---
ASA Classification* ASA Classification ASA Classification: 3 Assessment & Plan Anesthesia* Anesthesia Assessment Anesthesia Assessment: Discussed sedation and/or anesthesia options, risks, benefits, and alternatives with patient/parents/legal guardian/POA. Questions invited. The patient/parents/legal guardian/POA seems to understand and agrees to proceed with anesthesia plan. Reviewed the physical assessment, medical history, allergy history and patient home medications list prior to surgery/procedure/anesthetic and documented any changes. Performed airway and anesthesia risk assessments. Anesthesia Type Anesthesia Type: MAC History Source History Obtained from:: Patient and Chart Anesthesia Focused Assessment* Temperature: 98.8 F Pulse Rate: 69 Blood Pressure: 117/64 Respiratory Rate: 16 Pulse Ox: 96 Oxygen Delivery Method: Nasal Cannula Oxygen Flow Rate (L/min): 3 Airway Assessment Mouth opens: >3 cm Mallampati Score: II Teeth Condition: Intact, Chipped/Broken and Missing Neck Range of motion (ROM): Limited ROM (cannot look up all the way. ) Labs Anesthesia Preop lab: CBC WBC 12.5 K/mm3 (4.4-11.0) H 10/31/24 11:38 10/31/24 RBC 4.76 M/mm3 (4.2-5.4) 10/31/24 11:38 10/31/24 Hgb 14.4 g/dL (12.0-15.0) 10/31/24 11:38 10/31/24 Hct 43.6 % (37-47) 10/31/24 11:38 10/31/24 Plt Count 335 K/mm3 (150-450) 10/31/24 11:38 10/31/24 CHEMISTRY Potassium 3.7 mmol/L (3.3-5.1) 08/31/24 12:55 08/31/24 Sodium 140 mmol/L (133-145) 08/31/24 12:55 08/31/24 Magnesium 1.7 mg/dL (1.5-2.2) 06/10/24 22:21 06/10/24 Phosphorus 2.6 mg/dL (2.7-4.5) L 06/11/24 01:27 06/11/24 BUN 16 mg/dL (4-19) 08/31/24 12:55 08/31/24 Creatinine 0.76 mg/dL (0.70-1.20) 08/31/24 12:55 08/31/24 Glucose 117 mg/dL (70-99) H 08/31/24 12:55 08/31/24 POC Glucose 93 mg/dL (74-106) 06/12/24 05:51 06/12/24 TSH 0.356 uIU/mL (0.300-4.200) 06/28/24 07:05 06/28/24 COAG PT 14.0 SECONDS (11.7-14.9) 06/02/22 06:21 06/02/22 Pre-Assessment Diagnosis/Proposed Procedure Planned Operative Procedure(s): BRONCHOSCOPY Anesthesia History Anesthesia History - protective services officer: Anesthesia History - protective services officer Hx Hospitalization Yes: 06/2024 X2, 07/202411/02/24 11:51 Any Problems With Anesthesia No 11/02/24 11:51 Cholinesterase deficiency No 11/02/24 11:51 You/Your Family Experience No 11/02/24 11:51 fever (hyperthermia) with Relationship Recent Exposure to Contagious No 11/13/22 09:26 Disease Does patient have nerve No 11/02/24 11:51 stimulator Patient instructed to have device shut off --Does patient have Pacemaker or ICD? When Was Last Pacemaker Check QUESTION #4 FULL TEXT: You/Your Family Experience fever (hyperthermia) with Anesthesia Any additional information?: No Last Oral Intake Last Oral intake: Last Oral Intake NPO since Meds taken in AM with sips of water? Meds patient instructed to take am of surgery Any additional information?: Yes NPO since: 00:00 Meds taken in AM with sips of water?: Yes PONV PONV - protective services officer: PONV - protective services officer Female Yes 11/02/24 11:51 HX of Motion Sickness Yes 11/02/24 11:51 HX of N/V After Surgery No 11/02/24 11:51 Non-Smoker Yes 11/02/24 11:51 Duration of Surgery greater No 11/02/24 11:51 than 60 minutes Number of Risk Factors 3 11/02/24 11:51 PONV Score Moderate Risk 11/02/24 11:51 Any additional information?: No Height & Weight Height & Weight: Anesthesia: Height & Weight Height 5 ft 3 in 10/31/24 06:47 Respiratory Assessment Respiratory Assessment - protective services officer: Respiratory Tract Infection Hx - protective services officer Hx Respiratory Tract Infection No 11/02/24 11:51 Any additional information?: No STOP Sleep Apnea STOP Sleep Apnea - protective services officer: STOP Sleep Apnea - protective services officer Hx Hypertension Yes: CONTROLLED ON MED 11/02/24 11:51 Hx Sleep Apnea No 11/02/24 11:51 CPAP BIPAP Do you snore loudly (louder No 11/02/24 11:51 than talking or can be heard Do you often feel tired/ No 11/02/24 11:51 fatigued/ sleepy during daytime? Has anyone observed you stop No 11/02/24 11:51 breathing during sleep? STOP Results Negative 11/02/24 11:51 QUESTION #5 FULL TEXT : Do you snore loudly (louder than talking or can be heard through closed doors)? 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 Specify any problems Hx of Preganancy in last 3 No 11/02/24 11:51 Months Nurse Filling Out Transfusion VCHRISTIN 11/02/24 11:51 & Questions: Date: 11/02/24 11/02/24 11:51 Time: 11:53 11/02/24 11:51 Patient unable to answer at this time (ie. confused, unrespo Any additional information?: No /Reproduction History /Reproductive History - protective services officer: /Reproductive Hx- protective services officer Hx Now No 11/02/24 11:51 Gestational Age (in weeks): EDC: Hx Hx Para Hx Section SAB No 11/02/24 11:51 Any additional information?: No Active Medications Active Medications: Current Medications Generic Name Dose Route Start Last Admin Trade Name [place] PRN Reason Stop Dose Admin Lactated Ringer's 1,000 mls @ 15 mls/hr 11/04/24 11:15 IV .Q48H [facility] Medical History (Updated 11/02/24 @ 11:51 by Livia Kwon) MRSA infection History of steroid therapy Difficulty chewing History of hiatal hernia On home oxygen therapy COPD (chronic obstructive pulmonary disease) Shortness of breath on exertion History of edema History of echocardiogram Chest pain Pneumonia Anticoagulant long-term use Chronic respiratory failure with hypoxia Multilobar lung infiltrate MRSA (methicillin resistant staph aureus) culture positive SOB (shortness of breath) Candidiasis of mouth Anticoagulant long-term use History of hypothyroidism Elevated blood-pressure reading without diagnosis of hypertension SIRS (systemic inflammatory response syndrome) Sinus tachycardia Acute on chronic hypoxic respiratory failure Acute bronchospasm Pulmonary embolus Left lower lobe pneumonia Post-menopausal Depression Anxiety Thyroid disease Anemia Gastric reflux Non-smoker Leg cramps History of pain when walking Hypothyroid CKD (chronic kidney disease) Hypertension Infection of spinal cord stimulator Rheumatoid arthritis Chronic pain Arthritis Fibromyalgia Migraines Home Medications ?Medication ?Instructions ?Recorded ?Last Taken ?Type buprenorphine 20 mcg/hour weekly 1 patch transdermal FERNANDEZ PAIN 01/13/21 11/04/24 History transdermal patch (Butrans) levothyroxine 88 mcg tablet 88 mcg PO DAILY thyroid 01/13/21 11/04/24 History (Synthroid) omeprazole 40 mg capsule,delayed 40 mg PO DAILY reflux 01/13/21 11/04/24 History release triamterene 37.5 1 cap PO DAILY blood pressure 01/13/21 08/01/24 History mg-hydrochlorothiazide 25 mg capsule gabapentin 400 mg capsule 400 mg PO TID PAIN 05/08/21 11/04/24 History cholecalciferol (vitamin D3) 125 125 mcg PO DAILY SUPPLEMENT 06/01/22 08/01/24 History mcg (5,000 unit) capsule PRIMAL DEFENSE 410 mg PO 1XD probiotic 11/12/22 08/01/24 History metoprolol succinate 50 mg 50 mg PO QHS blood pressure 11/13/22 11/03/24 History tablet,extended release 24 hr allopurinol 300 mg tablet 300 mg PO DAILY gout 06/10/24 08/01/24 History ferrous gluconate 324 mg (38 mg 324 mg PO DAILY supplement 06/27/24 08/01/24 History iron) tablet albuterol sulfate 90 mcg/actuation 2 inh inhalation Q4H PRN shortness 07/08/24 Unknown History breath activated powder inhaler of breath or wheezing apixaban 5 mg tablet (Eliquis) 5 mg PO BID blood thinner 08/01/24 11/03/24 History magnesium oxide 400 mg (241.3 mg 400 mg PO QPM supplement 08/01/24 07/31/24 History magnesium) tablet potassium chloride 20 mEq 20 meq PO TID SUPPLEMENT 08/18/24 Unknown History tablet,extended release(part/cryst) ipratropium 0.5 mg-albuterol 3 mg 3 ml inhalation Q6H PRN shortness 08/31/24 11/04/24 06:30 Rx (2.5 mg base)/3 mL nebulization of breath #90 mL soln fluticasone fur. 200 mcg-umeclid 1 inh inhalation Q24H #60 ea 09/13/24 11/04/24 Rx 62.5 mcg-vilant 25 mcg inhalat.powder (Trelegy Ellipta) fluconazole 100 mg tablet 100 mg PO QDAY #7 tabs 10/07/24 Unknown Rx (Diflucan) Allergy/AdvReac Type Severity Reaction Status Date / Time oxycodone Allergy Rash Verified 11/04/24 11:24 adhesive tape AdvReac Rash Verified 11/04/24 11:24 Family History Mother Hypertension Colon polyps Father Lymphoma Surgical History History of colonoscopy Hx of hysterectomy History of carpal tunnel release Hx of thyroidectomy Hx of cholecystectomy Hx of tonsillectomy Social History household members: none Smoking Status: Never smoker alcohol intake: never substance use type: does not use Addt'l Information Additional Findings: Scoliosis, history of decreased kidney function. Review of Systems (Anesthesia) ROS Narrative System reviewed and no additional complaints, except as documented.
[2024-11-04] MEDS: Lactated Ringers 1,000 ML 15 ML IV (11:52)
[2024-11-04] MEDS: dexMEDEtomidine 200 MCG/2 ML ML 20 MCG IV (12:10)
[2024-11-04] MEDS: Lidocaine Jelly 2% 20 ML Syringe (URO-JET) 1 APPLIC (12:18)
[2024-11-04] MEDS: Lidocaine 2% (5ml sdv) 5 ML VIAL.MPF (12:20)
[2024-11-04] MEDS: fentaNYL 100 MCG/2 ML Ampul IV (12:25)
--- NOTE | 2024-11-04 12:36 | PCM.POST.ANE ---
Anesthesia: Postop Eval I Current Vital Signs Temperature: 97.3 F Pulse Rate: 74 Blood Pressure: 123/63 Respiratory Rate: 20 Pulse Ox: 95 (6L O2 nasal cannula) Assessment Airway patent: Yes Spontaneous unlabored respirations: Yes nausea: No Vomiting: No Anesthesia Complication: No Fluid Hydration Crystalloid volume administer (ml): 400 Total IV fluid infused: 400 Progress Note Anesthesia document: Postop Eval 1 completed: Yes
--- NOTE | 2024-11-04 12:45 | OP.BRONCH_ITS ---
Patient Name: Tiana Mckeon Procedure Date: 11/04/2024 11:54 AM Date of : 1960 Age: 64 Procedure: Bronchoscopy Indications: Abnormal CT scan of chest Providers: Jose M Gonzalez MD Referring MD: Jose M Gonzalez MD Medicines: See the Anesthesia note for documentation of the administered medications Complications: No immediate complications Procedure: Pre-Anesthesia Assessment: - A History and Physical has been performed. Patient meds and allergies have been reviewed. The risks and benefits of the procedure and the sedation options and risks were discussed with the patient. All questions were answered and informed consent was obtained. Patient identification and proposed procedure were verified prior to the procedure by the physician and the nurse in the procedure room. Mental Status Examination: alert and oriented. Airway Examination: normal oropharyngeal airway. Respiratory Examination: poor air movement. CV Examination: normal. ASA Grade Assessment: II - A patient with mild systemic disease. After reviewing the risks and benefits, the patient was deemed in satisfactory condition to undergo the procedure. The anesthesia plan was to use monitored anesthesia care (MAC). Immediately prior to administration of medications, the patient was re-assessed for adequacy to receive sedatives. The heart rate, respiratory rate, oxygen saturations, blood pressure, adequacy of pulmonary ventilation, and response to care were monitored throughout the procedure. The physical status of the patient was re-assessed after the procedure. After I obtained informed consent, the scope was passed under direct vision. Throughout the procedure, the patient's blood pressure, pulse, and oxygen saturations were monitored continuously. The bronchoscope was introduced through the mouth and advanced to the tracheobronchial tree. The procedure was accomplished without difficulty. The patient tolerated the procedure well. Findings: The oropharynx appears normal. The larynx appears normal. The vocal cords appear normal. The subglottic space is normal. The trachea is of normal caliber. The adonay is sharp. The tracheobronchial tree was examined to at least the first subsegmental level. Bilateral Lung Abnormalities: Notable, mucopurulent secretions were found throughout the tracheobronchial tree. They were not obstructing the airway. The bronchoscope was advanced until wedged at the desired location for bronchoalveolar lavage. BAL was performed in the right lower lobe of the lung and sent for cell count, bacterial culture, viral smears & culture, and fungal & AFB analysis and cytology. 60 mL of fluid were instilled. 20 mL were returned. The return was mucopurulent. Impression: - Abnormal CT scan of chest - Notable, mucopurulent secretions were found throughout the tracheobronchial tree. - Bronchoalveolar lavage was performed in RLL. Recommendation: - Await BAL results. Procedure Code(s): --- Professional --- 33928, Bronchoscopy, rigid or flexible, including fluoroscopic guidance, when performed; with bronchial alveolar lavage Diagnosis Code(s): --- Professional --- R93.89, Abnormal findings on diagnostic imaging of other specified body structures R09.89, Other specified symptoms and signs involving the circulatory and respiratory systems CPT copyright 2021 [employer]. All rights reserved. The codes documented in this report are preliminary and upon proposal manager review may be revised to meet current compliance requirements. DO Jose M Ruff MD 11/04/2024 12:45:15 PM This report has been signed electronically. Number of Addenda: 0 Note Initiated On: 11/04/2024 11:54 AM
[2024-11-04 13:04] LABS: Cytology, Body Fluid / CSF SEE PATHOLOGY REPORT
[2024-11-04 13:31] LABS: Appearance/Body Fluid SL CLDY; Color/Body Fluid COLORLESS; Red Cell Count/Body Fluid 10 /mm3; Source- Body Fluid BRONCHIAL LAVAGE
[2024-11-04 13:34] LABS: White Blood Count/Body Fluid 915 /mm3
[2024-11-04 14:43] LABS: Body Fluid QC Type(s) BF1,BF2,BF3; Neutrophil (Segs) 100 %
[2024-11-04 15:19] LABS: Pathologist Comment/Body Fluid Reviewed
--- NOTE | 2024-11-08 11:02 | PCM.HP.STD ---
HPI - General HPI Narrative The patient is a 63-year-old female who presented for a routine follow-up to the pulmonary medicine clinic on October 31. The patient initially established in our office in July 2024 following a hospitalization. At the beginning of June 2024, the patient was admitted to the hospital with hypoxemia and hypertension. Subsequent workup demonstrated acute bilateral lower lobe pulmonary emboli without evidence of right heart strain. The patient was subsequently placed on systemic anticoagulation and discharged home on 2 L/min via nasal cannula. Prior to this, the patient did not have a supplemental oxygen requirement. The patient was then readmitted to the hospital for several days at the end of June, during which time, she was treated for a left lower lobe pneumonia with IV Levaquin. The patient denied a history of venous thromboembolic disease. She is a lifelong non-smoker, but did grow up in a smoking household. The patient reported that at her baseline she is rather active and does not live a sedentary lifestyle. She denied any recent prolonged travel. The patient does have a known history of rheumatoid arthritis. She is currently followed by a revenue audit clerk at [facility]. In addition, the patient was evaluated by oncology in August 2024 and found to be positive for heterozygous factor V Leiden mutation. Pulmonary function studies completed in August 2024 demonstrated an irreversible moderately severe large airways obstructive ventilatory defect with associated air trapping and mild reduction in diffusing capacity. Exhaled nitric oxide at the patient's September 2024 office visit was noted to be 34 ppb. Over concerns for underlying sleep apnea, the patient completed a sleep study in August 2024 which was noted to be normal. However, 2 L/min of supplemental oxygen was recommended with sleep. The patient's medical history has been complicated by both Pseudomonas and MRSA pulmonary infections. The patient completed a noncontrasted chest CT in mid October 2024 which demonstrated diffuse bilateral groundglass opacity. The patient's last sputum culture from August 2024 was positive for both Pseudomonas and MRSA. [facility] Medical History (Updated 11/02/24 @ 11:51 by Livia Kwon) MRSA infection History of steroid therapy Difficulty chewing History of hiatal hernia On home oxygen therapy COPD (chronic obstructive pulmonary disease) Shortness of breath on exertion History of edema History of echocardiogram Chest pain Pneumonia Anticoagulant long-term use Chronic respiratory failure with hypoxia Multilobar lung infiltrate MRSA (methicillin resistant staph aureus) culture positive SOB (shortness of breath) Candidiasis of mouth Anticoagulant long-term use History of hypothyroidism Elevated blood-pressure reading without diagnosis of hypertension SIRS (systemic inflammatory response syndrome) Sinus tachycardia Acute on chronic hypoxic respiratory failure Acute bronchospasm Pulmonary embolus Left lower lobe pneumonia Post-menopausal Depression Anxiety Thyroid disease Anemia Gastric reflux Non-smoker Leg cramps History of pain when walking Hypothyroid CKD (chronic kidney disease) Hypertension Infection of spinal cord stimulator Rheumatoid arthritis Chronic pain Arthritis Fibromyalgia Migraines Home Medications ?Medication ?Instructions ?Recorded ?Last Taken ?Type buprenorphine 20 mcg/hour weekly 1 patch transdermal FERNANDEZ PAIN 01/13/21 11/04/24 History transdermal patch (Butrans) levothyroxine 88 mcg tablet 88 mcg PO DAILY thyroid 01/13/21 11/04/24 History (Synthroid) omeprazole 40 mg capsule,delayed 40 mg PO DAILY reflux 01/13/21 11/04/24 History release triamterene 37.5 1 cap PO DAILY blood pressure 01/13/21 08/01/24 History mg-hydrochlorothiazide 25 mg capsule gabapentin 400 mg capsule 400 mg PO TID PAIN 05/08/21 11/04/24 History cholecalciferol (vitamin D3) 125 125 mcg PO DAILY SUPPLEMENT 06/01/22 08/01/24 History mcg (5,000 unit) capsule PRIMAL DEFENSE 410 mg PO 1XD probiotic 11/12/22 08/01/24 History metoprolol succinate 50 mg 50 mg PO QHS blood pressure 11/13/22 11/03/24 History tablet,extended release 24 hr allopurinol 300 mg tablet 300 mg PO DAILY gout 06/10/24 08/01/24 History ferrous gluconate 324 mg (38 mg 324 mg PO DAILY supplement 06/27/24 08/01/24 History iron) tablet albuterol sulfate 90 mcg/actuation 2 inh inhalation Q4H PRN shortness 07/08/24 Unknown History breath activated powder inhaler of breath or wheezing apixaban 5 mg tablet (Eliquis) 5 mg PO BID blood thinner 08/01/24 11/03/24 History magnesium oxide 400 mg (241.3 mg 400 mg PO QPM supplement 08/01/24 07/31/24 History magnesium) tablet potassium chloride 20 mEq 20 meq PO TID SUPPLEMENT 08/18/24 Unknown History tablet,extended release(part/cryst) ipratropium 0.5 mg-albuterol 3 mg 3 ml inhalation Q6H PRN shortness 08/31/24 11/04/24 06:30 Rx (2.5 mg base)/3 mL nebulization of breath #90 mL soln fluticasone fur. 200 mcg-umeclid 1 inh inhalation Q24H #60 ea 09/13/24 11/04/24 Rx 62.5 mcg-vilant 25 mcg inhalat.powder (Trelegy Ellipta) fluconazole 100 mg tablet 100 mg PO QDAY #7 tabs 10/07/24 Unknown Rx (Diflucan) Allergy/AdvReac Type Severity Reaction Status Date / Time oxycodone Allergy Rash Verified 11/04/24 11:24 adhesive tape AdvReac Rash Verified 11/04/24 11:24 Family History Mother Hypertension Colon polyps Father Lymphoma Surgical History History of colonoscopy Hx of hysterectomy History of carpal tunnel release Hx of thyroidectomy Hx of cholecystectomy Hx of tonsillectomy Social History household members: none Smoking Status: Never smoker alcohol intake: never substance use type: does not use ROS ROS Narrative 10 systems were reviewed with pertinent positives as noted in the HPI above. Vital Signs Vital Signs Vital Signs: Weight Weight: 154 lb 12.232 oz Body Mass Index (BMI) 27.3 Physical Exam Const alert and no apparent distress General Appearance: cooperative HEENT normocephalic and head/scalp atraumatic Eyes PERRL and EOMs intact bilaterally Neck supple General: trachea midline Resp normal respiratory effort Auscultation: diminished lung sounds Cardio regular rate and regular rhythm GI normal to inspection, nondistended, normoactive bowel sounds Extremity no clubbing, cyanosis or edema Skin General Skin Exam: no breakdown Neuro CN's II-XII intact bilaterally, no focal motor deficits and no sensory deficits noted Psych thought process normal, cooperative and affect normal Results Lab / Micro Data Micro: Microbiology 11/04/24 Unknown Wash - Right Lower Lobe Gram Stain - Final 11/04/24 Unknown Wash - Right Lower Lobe Respiratory Culture - Preliminary Meth. resistant Staph. aureus Achromobacter xylosoxidans Assessment & Plan Assessment/Plan (1) Abnormal chest CT: PLAN: The patient's most recent CT chest demonstrated bilateral ground glass opacities of unclear etiology. Pulmonary edema seems unlikely given her preserved ejection fraction and normal BNP. It seems far more likely that the patient has an underlying infectious or inflammatory process at play. My initial concern would be that the patient has some form of evolving rheumatoid associated lung disease, given that she is off of all forms of immunosuppression. Given that underlying infection would be in the differential, I did recommend that we proceed with bronchoscopy to obtain BAL. Risks and benefits of the proposed procedure were discussed with the patient. She is in agreement to proceed.
== END 2024-11-04 13:35 | disposition home or self-care (01) ==
LOC: EN 11:04 → AC 11:05
PROVIDERS: PCP Family Medicine; Referring Provider Internal Medicine Critical Care Medicine; Visit Provider Internal Medicine Critical Care Medicine
PROC: 0BJ08ZZ Inspection of Tracheobronchial Tree, Via Natural or Artificial Opening Endoscopic (ICD-10-PCS; CPT 31622; principal; 2024-11-04 11:45)
DX: J18.9 Pneumonia, unspecified organism (principal); J44.9 Chronic obstructive pulmonary disease, unspecified; N18.9 Chronic kidney disease, unspecified; I12.9 Hypertensive chronic kidney disease with stage 1 through stage 4 chronic kidney disease, or unspecified chronic kidney disease; K21.9 Gastro-esophageal reflux disease without esophagitis; Z79.51 Long term (current) use of inhaled steroids; Z79.899 Other long term (current) drug therapy; E03.9 Hypothyroidism, unspecified; Z79.890 Hormone replacement therapy; Z79.01 Long term (current) use of anticoagulants; Z86.711 Personal history of pulmonary embolism
CPT/HCPCS: 31624; 87015; 87070; 87077; 87101; 87116; 87186; 87205; 87206; 87252; 88108; 88305; 88313; 89050; J2405

== ENCOUNTER → 2024-11-17 | Outpatient (CLI) | payer MEDICARE, MEDICAID, SELFPAY | END | disposition home or self-care (01) | LOC: PSN 12:00 | PROVIDERS: PCP Family Medicine; Referring Provider Internal Medicine Critical Care Medicine; Visit Provider Internal Medicine Critical Care Medicine | DX: R50.9 Fever, unspecified (principal) | CPT/HCPCS: 87631 ==

== ENCOUNTER → 2024-12-07 | Outpatient (CLI) | payer MEDICARE, MEDICAID, SELFPAY ==
--- NOTE | 2024-12-07 19:08 | CT_ITS ---
PROCEDURE: CHEST WITHOUT CONTRAST 12/07/2024 REASON FOR EXAM: FOLLOW UP ABNORMAL CT SCAN TECHNIQUE: Chest CT without contrast. Coronal and Sagittal reconstruction series were provided. One or more dose reduction techniques were used (e.g., Automated exposure control, adjustment of the mA and/or kV according to patient size, use of iterative reconstruction technique RADIATION DOSE SUMMARY: DLP: 290.87 mGycm COMPARISON: Previous CT chest dated 10/19/2024 FINDINGS: Thyroid gland: Negative. Lungs: There has been significant interval improvement over the aeration of the lung with decrease in the airspace opacities noted previously. Persistent residual ground-glass opacities, interstitial prominence and mild airspace disease persists. Thickened septal lines noted. The airways patent. No suspicious pulmonary nodule or mass detected. Pleura: Negative for pleural effusion or pneumothorax. Airways: Imaged bronchi and trachea otherwisenegative. Mediastinum: Hiatal hernia. No mass. Lymph nodes: No axillary lymphadenopathy. No mediastinal or hilar lymphadenopathy Heart and Vasculature: Mild atherosclerosis of the aorta. No cardiomegaly. No pericardial effusion. Coronary Artery Calcifications: Absent Upper Abdomen: Unremarkable Bones: Scoliosis and multilevel degenerative disc disease. CT/Chest without Contrast IMPRESSION: Slight interval improvement over ground-glass opacities in the lung with persis tent residual disease noted primarily in the lower lobes. This is likely of an infectious or inflammatory etiology. Continued rico rveillance recommended with repeat imaging in 3 months. Hiatal hernia. Reading Location: [id number]
== END | disposition home or self-care (01) ==
LOC: CT 18:58
PROVIDERS: PCP Family Medicine; Referring Provider Internal Medicine Critical Care Medicine; Visit Provider Internal Medicine Critical Care Medicine
DX: R93.89 Abnormal findings on diagnostic imaging of other specified body structures (principal)
CPT/HCPCS: 71250

== ENCOUNTER → 2025-01-24 | Outpatient (CLI) | payer MEDICARE, MEDICAID, SELFPAY ==
[2025-01-24 14:36] LABS: Vitamin B12 526 pg/mL (180-914)
[2025-01-24 14:37] LABS: FOLATES,SERUM (FOLIC ACID) 17.00 ng/mL (4.60-34.80)
== END | disposition home or self-care (01) ==
LOC: LAB 13:02
PROVIDERS: PCP Family Medicine; Referring Provider Student in an Organized Health Care Education/Training Program; Visit Provider Student in an Organized Health Care Education/Training Program
DX: K13.79 Other lesions of oral mucosa (principal)
CPT/HCPCS: 36415; 82607; 82746

== ENCOUNTER 2025-02-15 13:21 | Day surgery (SDC) | payer MEDICARE, MEDICAID, SELFPAY ==
--- NOTE | 2025-02-13 12:45 | PAT.ANE_ITS ---
Pre-Assessment Diagnosis/Proposed Procedure Planned Operative Procedure(s): EGD Anesthesia History Anesthesia History - cardiology clinical nurse specialist: Anesthesia History - cardiology clinical nurse specialist Hx Hospitalization Yes: 06/2024 X2, 07/2024 PE, 02/13/25 11:06 PNEUMONIA Any Problems With Anesthesia No 02/13/25 11:06 Cholinesterase deficiency No 02/13/25 11:06 You/Your Family Experience No 02/13/25 11:06 fever (hyperthermia) with Relationship Recent Exposure to Contagious No 11/04/24 11:33 Disease Does patient have nerve No 02/13/25 11:06 stimulator Patient instructed to have device shut off --Does patient have Pacemaker or ICD? When Was Last Pacemaker Check QUESTION #4 FULL TEXT: You/Your Family Experience fever (hyperthermia) with Anesthesia Last Oral Intake Last Oral intake: Last Oral Intake NPO since Meds taken in AM with sips of water? Meds patient instructed to take am of surgery PONV PONV - cardiology clinical nurse specialist: PONV - cardiology clinical nurse specialist Female Yes 02/13/25 11:06 HX of Motion Sickness Yes 02/13/25 11:06 HX of N/V After Surgery No 02/13/25 11:06 Non-Smoker Yes 02/13/25 11:06 Duration of Surgery greater No 02/13/25 11:06 than 60 minutes Number of Risk Factors 3 02/13/25 11:06 PONV Score Moderate Risk 02/13/25 11:06 Height & Weight Height & Weight: Anesthesia: Height & Weight Height 5 ft 3 in 12/21/24 08:48 Respiratory Assessment Respiratory Assessment - cardiology clinical nurse specialist: Respiratory Tract Infection Hx - cardiology clinical nurse specialist Hx Respiratory Tract Infection No 02/13/25 11:06 STOP Sleep Apnea STOP Sleep Apnea - cardiology clinical nurse specialist: STOP Sleep Apnea - cardiology clinical nurse specialist Hx Hypertension Yes: CONTROLLED ON MED 02/13/25 11:06 Hx Sleep Apnea Yes: NO MACHINE 02/13/25 11:06 CPAP No 02/13/25 11:06 BIPAP No 02/13/25 11:06 Do you snore loudly (louder than talking or can be heard Do you often feel tired/ fatigued/ sleepy during daytime? Has anyone observed you stop breathing during sleep? STOP Results Positive 02/13/25 11:06 QUESTION #5 FULL TEXT : Do you snore loudly (louder than talking or can be heard through closed doors)? 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 Specify any problems Hx of Preganancy in last 3 N/A 02/13/25 11:06 Months Nurse Filling Out Transfusion NBUCHER 02/13/25 11:06 & Questions: Date: 02/13/25 02/13/25 11:06 Time: 11:08 02/13/25 11:06 Patient unable to answer at this time (ie. confused, unrespo /Reproduction History /Reproductive History - cardiology clinical nurse specialist: /Reproductive Hx- cardiology clinical nurse specialist Hx Now No 02/13/25 11:06 Gestational Age (in weeks): EDC: Hx Hx Para Hx Section SAB No 02/13/25 11:06 Does the father of the baby or his family experience fever w Father of the baby Malignant Hypertension history comment [facility] Medical History MRSA infection History of steroid therapy Difficulty chewing History of hiatal hernia On home oxygen therapy COPD (chronic obstructive pulmonary disease) Shortness of breath on exertion History of edema History of echocardiogram Chest pain Pneumonia Anticoagulant long-term use Chronic respiratory failure with hypoxia Multilobar lung infiltrate MRSA (methicillin resistant staph aureus) culture positive SOB (shortness of breath) Candidiasis of mouth Anticoagulant long-term use History of hypothyroidism Elevated blood-pressure reading without diagnosis of hypertension SIRS (systemic inflammatory response syndrome) Sinus tachycardia Acute on chronic hypoxic respiratory failure Acute bronchospasm Pulmonary embolus Left lower lobe pneumonia Post-menopausal Depression Anxiety Thyroid disease Anemia Gastric reflux Non-smoker Leg cramps History of pain when walking Hypothyroid CKD (chronic kidney disease) Hypertension Infection of spinal cord stimulator Rheumatoid arthritis Chronic pain Arthritis Fibromyalgia Migraines Home Medications ?Medication ?Instructions ?Recorded ?Last Taken ?Type buprenorphine 20 mcg/hour weekly 1 patch transdermal S U PAIN 01/13/21 11/04/24 History transdermal patch (Butrans) levothyroxine 88 mcg tablet 88 mcg PO DAILY thyroid 11/04/24 History (Synthroid) triamterene 37.5 1 cap PO DAILY blood pressur e 01/13/21 08/01/24 History mg-hydrochlorothiazide 25 mg capsule gabapentin 400 mg capsule 400 mg PO TID PAIN 05/08/21 11/04/24 History cholecalciferol (vitamin D3) 125 125 mcg PO DAILY SUPP LEMENT 06/01/22 08/01/24 History mcg (5,000 unit) capsule PRIMAL DEFENSE 410 mg PO 1XD probiotic 08/2908/01/24 History metoprolol succinate 50 mg 50 mg PO QHS blood pressure 11/13/22 11/03/24 History tablet,extended release 24 hr allopurinol 300 mg tablet 300 mg PO DAILY gout 5 08/01/24 History ferrous gluconate 324 mg (38 mg 324 mg PO DAILY supple ment 06/27/24 08/01/24 History iron) tablet albuterol sulfate 90 mcg/actuation 2 inh inhalation Q4 H PRN shortness 07/08/24 Unknown History breath activated powder inhaler of breath or wheezing apixaban 5 mg tablet (Eliquis) 5 mg PO BID blood thinn er 08/01/24 11/03/24 History magnesium oxide 400 mg (241.3 mg 400 mg PO QPM supplem ent 08/01/24 07/31/24 History magnesium) tablet potassium chloride 20 mEq 20 meq PO TID SUPPLEMENT 03/02 Unknown History tablet,extended release(part/cryst) ipratropium 0.5 mg-albuterol 3 mg 3 ml inhalation Q6H PRN shortness 08/31/24 11/04/24 06:30 Rx (2.5 mg base)/3 mL nebulization of breath #90 mL soln fluticasone fur. 200 mcg-umeclid 1 inh inhalation Q24H #60 ea 09/13/24 11/04/24 Rx 62.5 mcg-vilant 25 mcg inhalat.powder (Trelegy Ellipta) fluconazole 100 mg tablet 100 mg PO QDAY #7 tabs 10/07 Unknown Rx (Diflucan) prednisone 10 mg tablet 10 mg PO DIRECTED #24 tab s 12/21/24 Unknown Rx omeprazole 40 mg capsule,delayed 40 mg PO BID reflux # 90 caps 01/24/25 Unknown Rx release colchicine 0.6 mg tablet 0.6 mg PO DAILY 02/13/25 Unk nown History Allergy/AdvReac Type Severity Reaction Status Date / Time oxycodone Allergy Rash Verified 02/13/25 11:02 adhesive tape AdvReac Rash Verified 02/13/25 11:02 Family History Mother Hypertension Colon polyps Father Lymphoma Surgical History (Updated 02/13/25 @ 11:10 by Cynthia Schaeffer) History of bronchoscopy History of colonoscopy Hx of hysterectomy History of carpal tunnel release Hx of thyroidectomy Hx of cholecystectomy Hx of tonsillectomy Social History household members: none Smoking Status: Never smoker alcohol intake: never substance use type: does not use Audit: Pertinent Findings Pertinent Findings EKG Perinent findings: 08/31/2024. Normal sinus rhythm 88 bpm. Possible left atrial enlargement. Echo (EF%) pertinent findings: 06/08/2024. EF 60%. Structurally normal valves. Function normal Recommendation Anesthesia Recommendation Anesthesia recommendation: OPTIMIZED for anesthesia
[2025-02-15] VITALS (7 sets, daily range): BP systolic 140–157; BP diastolic 69–84; PULSE 54–67; RESP 16–20; TEMP 36.3–37.2; O2SAT 94–98; BMI 60.5
--- NOTE | 2025-02-15 13:30 | HP.PCM_ITS ---
HPI - General General Date of Admission: 02/15/25 Date of Service: 02/15/25 Chief Complaint: dysphagia HPI Narrative TIANA AGUIRRE, is a 64 F who presents [Chief Complaint: Difficulty swallowing PMhx of asthma, COPD, factor five Leiden, PE, and oral candidiasis. Colonoscopy 11/24/22 - Diverticulosis in the recto-sigmoid colon and in the sigmoid colon. - Stool in the sigmoid colon and in the cecum. - The examination was otherwise normal on direct and retroflexion views. - No specimens collected. OV 01/24/25: Patient recommended to GI due to difficulty swallowing, mouth sores, tingling in her tongue and dry mouth. Patient has had a difficult year and has been hospitalized frequently due to COPD/autoimmune lung disease, pulmonary embolisms and pneumonia. During 1 of these hospitalizations she was diagnosed with oral thrush and was treated with nystatin. She has been on fluconazole for a few months now without complete resolution in her symptoms. Patient also with difficulty swallowing over the past year. At this point she is eating mostly eggs and yogurt. Foods that typically get stuck include meats and breads. She denies dysphagia to liquids. She has had to regurgitate her food on a few occasions. She does have intermittent issues with GERD and has been on omeprazole 40 mg for many years. ] [facility] Medical History MRSA infection History of steroid therapy Difficulty chewing History of hiatal hernia On home oxygen therapy COPD (chronic obstructive pulmonary disease) Shortness of breath on exertion History of edema History of echocardiogram Chest pain Pneumonia Anticoagulant long-term use Chronic respiratory failure with hypoxia Multilobar lung infiltrate MRSA (methicillin resistant staph aureus) culture positive SOB (shortness of breath) Candidiasis of mouth Anticoagulant long-term use History of hypothyroidism Elevated blood-pressure reading without diagnosis of hypertension SIRS (systemic inflammatory response syndrome) Sinus tachycardia Acute on chronic hypoxic respiratory failure Acute bronchospasm Pulmonary embolus Left lower lobe pneumonia Post-menopausal Depression Anxiety Thyroid disease Anemia Gastric reflux Non-smoker Leg cramps History of pain when walking Hypothyroid CKD (chronic kidney disease) Hypertension Infection of spinal cord stimulator Rheumatoid arthritis Chronic pain Arthritis Fibromyalgia Migraines Home Medications ?Medication ?Instructions ?Recorded ?Last Taken ?Type buprenorphine 20 mcg/hour weekly 1 patch transdermal S U PAIN 01/13/21 11/04/24 History transdermal patch (Butrans) levothyroxine 88 mcg tablet 88 mcg PO DAILY thyroid 11/04/24 History (Synthroid) triamterene 37.5 1 cap PO DAILY blood pressur e 01/13/21 08/01/24 History mg-hydrochlorothiazide 25 mg capsule gabapentin 400 mg capsule 400 mg PO TID PAIN 05/08/21 11/04/24 History cholecalciferol (vitamin D3) 125 125 mcg PO DAILY SUPP LEMENT 06/01/22 08/01/24 History mcg (5,000 unit) capsule PRIMAL DEFENSE 410 mg PO 1XD probiotic 08/2908/01/24 History metoprolol succinate 50 mg 50 mg PO QHS blood pressure 11/13/22 11/03/24 History tablet,extended release 24 hr allopurinol 300 mg tablet 300 mg PO DAILY gout 5 08/01/24 History ferrous gluconate 324 mg (38 mg 324 mg PO DAILY supple ment 06/27/24 08/01/24 History iron) tablet albuterol sulfate 90 mcg/actuation 2 inh inhalation Q4 H PRN shortness 07/08/24 Unknown History breath activated powder inhaler of breath or wheezing apixaban 5 mg tablet (Eliquis) 5 mg PO BID blood thinn er 08/01/24 11/03/24 History magnesium oxide 400 mg (241.3 mg 400 mg PO QPM supplem ent 08/01/24 07/31/24 History magnesium) tablet potassium chloride 20 mEq 20 meq PO TID SUPPLEMENT 03/02 Unknown History tablet,extended release(part/cryst) ipratropium 0.5 mg-albuterol 3 mg 3 ml inhalation Q6H PRN shortness 08/31/24 11/04/24 06:30 Rx (2.5 mg base)/3 mL nebulization of breath #90 mL soln fluticasone fur. 200 mcg-umeclid 1 inh inhalation Q24H #60 ea 09/13/24 11/04/24 Rx 62.5 mcg-vilant 25 mcg inhalat.powder (Trelegy Ellipta) fluconazole 100 mg tablet 100 mg PO QDAY #7 tabs 10/07 Unknown Rx (Diflucan) prednisone 10 mg tablet 10 mg PO DIRECTED #24 tab s 12/21/24 Unknown Rx omeprazole 40 mg capsule,delayed 40 mg PO BID reflux # 90 caps 01/24/25 Unknown Rx release colchicine 0.6 mg tablet 0.6 mg PO DAILY 02/13/25 Unk nown History Allergy/AdvReac Type Severity Reaction Status Date / Time oxycodone Allergy Rash Verified 02/13/25 11:02 adhesive tape AdvReac Rash Verified 02/13/25 11:02 Family History Mother Hypertension Colon polyps Father Lymphoma Surgical History History of bronchoscopy History of colonoscopy Hx of hysterectomy History of carpal tunnel release Hx of thyroidectomy Hx of cholecystectomy Hx of tonsillectomy Social History household members: none Smoking Status: Never smoker alcohol intake: never substance use type: does not use Physical Exam Const alert, oriented x3, no apparent distress and healthy appearing General Appearance: cooperative GI normal to inspection, nondistended, normoactive bowel sounds, soft to palpation, non-tender and non-distended Percussion: normal to percussion Rectal Exam: deferred Assessment & Plan Assessment/Plan (1) Dysphagia: PLAN: Assessment and Plan Assessment and Plan (1) Mouth sores: Status: Acute (2) Candidiasis of mouth: Status: Chronic (3) Dysphagia: Status: Acute Plan: Tiana is a 64-year-old female patient with past medical history of COPD/autoimmune lung disease, PEs, factor V Leiden on Eliquis, JEANA and GERD here today for evaluation. Patient diagnosed with oral thrush during one of her hospitalizations and was treated with nystatin. She has also been on fluconazole daily for the past few months. She continues to have dry mouth, tongue pain, tingling in her tongue, and mouth sores. She denies odynophagia. Patient also noting that she has had esophageal dysphagia over the past year to solids but not liquids. At this point she is eating mostly soft foods like scrambled eggs, yogurt and mashed potatoes. Unclear at this time if her dysphagia is related to her oral symptoms. I have ordered vitamin B12 and folate levels to rule out deficiency leading to her oral symptoms. Recommended EGD with dilation if needed for further evaluation of her upper GI tract. I have also increased her omeprazole to 40 mg twice a day in case her symptoms are reflux related. Patient was agreeable to proceed with plan. - EGD with dilation if needed - Folate and B12 - Increase omeprazole to 40 mg twice a day - Consider further treatment pending results Note: Portions of this note may have been selectively carried forward from previous documentation to ensure continuity and accuracy of the clinical record. All imported information has been reviewed and updated as necessary to reflect the current patient status, findings, and clinical decision-making for this encounter. [employer] speech recognition marine electrician helper software was used to create portions of this document. Sound alike and misspelled words, as well as other marine electrician helper errors may be contained in the documentation. Orders: Orders Vitamin B12 Today K13.79 - Other lesions of oral mucosa FOLATES,SERUM (FOLIC ACID) Today Medications: Changed From omeprazole 40 mg PO DAILY reflux To omeprazole 40 mg PO BID 90 caps 2RF reflux
[2025-02-15] MEDS: Lactated Ringers 1,000 ML 15 ML IV (13:55)
--- NOTE | 2025-02-15 14:16 | PRE.ANES_ITS ---
ASA Classification* ASA Classification ASA Classification: 3 Assessment & Plan Anesthesia* Anesthesia Assessment Anesthesia Assessment: Discussed sedation and/or anesthesia options, risks, benefits, and alternatives with patient/parents/legal guardian/POA. Questions invited. The patient/parents/legal guardian/POA seems to understand and agrees to proceed with anesthesia plan. Reviewed the physical assessment, medical history, allergy history and patient home medications list prior to surgery/procedure/anesthetic and documented any changes. Performed airway and anesthesia risk assessments. Anesthesia Type Anesthesia Type: MAC History Source History Obtained from:: Patient and Chart Anesthesia Focused Assessment* Temperature: 98.9 F Pulse Rate: 54 Blood Pressure: 157/76 Respiratory Rate: 16 Pulse Ox: 98 Oxygen Delivery Method: Room Air Airway Assessment Mouth opens: >3 cm Mallampati Score: II Neck Range of motion (ROM): Full ROM Labs Anesthesia Preop lab: CBC WBC, (4.4-11.0) 7.6 K/mm3 11/28/24, 12:44 RBC, (4.2-5.4) 4.76 M/mm3 11/28/24, 12:44 Hgb, (12.0-15.0) 14.3 g/dL 11/28/24, 12:44 Hct, (37-47) 43.2 % 11/28/24, 12:44 Plt Count, (150-450) 331 K/mm3 11/28/24, 12:44 CHEMISTRY Potassium, (3.3-5.1) 4.7 mmol/L 11/28/24, 12:44 Sodium, (133-145) 138 mmol/L 11/28/24, 12:44 Magnesium, (1.5-2.2) 1.7 mg/dL 06/10/24, 22:21 Phosphorus, (2.7-4.5) 2.6 mg/dL L 06/11/24, 01:27 BUN, (4-19) 32 mg/dL H 11/28/24, 12:44 Creatinine, (0.70-1.20) 0.85 mg/dL 11/28/24, 12:44 Glucose, (70-99) 139 mg/dL H 11/28/24, 12:44 POC Glucose, (74-106) 93 mg/dL 06/12/24, 05:51 TSH, (0.300-4.200) 0.356 uIU/mL 06/28/24, 07:05 COAG PT, (11.7-14.9) 14.0 SECONDS 06/02/22, 06:21 Pre-Assessment Diagnosis/Proposed Procedure Planned Operative Procedure(s): EGD Anesthesia History 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 When Was Last Pacemaker Check QUESTION #4 FULL TEXT: You/Your Family Experience fever (hyperthermia) with Anesthesia Last Oral Intake Last Oral intake: Last Oral Intake NPO since 20:30 02/15/25 13:48 Meds taken in AM with sips of Yes 02/15/25 13:48 water? Meds patient instructed to take am of surgery PONV PONV - children's service worker: PONV - children's service worker Female Yes 02/13/25 11:06 HX of Motion Sickness Yes 02/13/25 11:06 HX of N/V After Surgery No 02/13/25 11:06 Non-Smoker Yes 02/13/25 11:06 Duration of Surgery greater No 02/13/25 11:06 than 60 minutes Number of Risk Factors 3 02/13/25 11:06 PONV Score Moderate Risk 02/13/25 11:06 Height & Weight Height & Weight: Anesthesia: Height & Weight Height 5 ft 3 in 02/15/25 13:48 Weight: 155 kg 02/15/25 13:48 Body Mass Index (BMI) 60.5 02/15/25 13:48 Respiratory Assessment Respiratory Assessment - children's service worker: Respiratory Tract Infection Hx - children's service worker Hx Respiratory Tract Infection No 02/13/25 11:06 STOP Sleep Apnea STOP Sleep Apnea - children's service worker: STOP Sleep Apnea - children's service worker Hx Hypertension Yes: CONTROLLED ON MED 02/13/25 11:06 Hx Sleep Apnea Yes: NO MACHINE 02/13/25 11:06 CPAP No 02/13/25 11:06 BIPAP No 02/13/25 11:06 Do you snore loudly (louder than talking or can be heard Do you often feel tired/ fatigued/ sleepy during daytime? Has anyone observed you stop breathing during sleep? STOP Results Positive 02/13/25 11:06 QUESTION #5 FULL TEXT : Do you snore loudly (louder than talking or can be heard through closed doors)? 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 Specify any problems Hx of Preganancy in last 3 N/A 02/13/25 11:06 Months Nurse Filling Out Transfusion NBUCHER 02/13/25 11:06 & Questions: Date: 02/13/25 02/13/25 11:06 Time: 11:08 02/13/25 11:06 Patient unable to answer at this time (ie. confused, unrespo /Reproduction History /Reproductive History - children's service worker: /Reproductive Hx- children's service worker Hx Now No 02/13/25 11:06 Gestational Age (in weeks): EDC: Hx Hx Para Hx Section SAB No 02/13/25 11:06 Does the father of the baby or his family experience fever w Father of the baby Malignant Hypertension history comment Active Medications Active Medications: Current Medications Generic Name Dose Route Start Last Admin Trade Name Freq PRN Reason Stop Dose Admin Lactated Ringer's 1,000 mls @ 15 mls/hr 02/15/25 13:30 02/15/25 13:55 IV 15 mls/hr .Q48H SADIE Administration PFSH Medical History MRSA infection History of steroid therapy Difficulty chewing History of hiatal hernia On home oxygen therapy COPD (chronic obstructive pulmonary disease) Shortness of breath on exertion History of edema History of echocardiogram Chest pain Pneumonia Anticoagulant long-term use Chronic respiratory failure with hypoxia Multilobar lung infiltrate MRSA (methicillin resistant staph aureus) culture positive SOB (shortness of breath) Candidiasis of mouth Anticoagulant long-term use History of hypothyroidism Elevated blood-pressure reading without diagnosis of hypertension SIRS (systemic inflammatory response syndrome) Sinus tachycardia Acute on chronic hypoxic respiratory failure Acute bronchospasm Pulmonary embolus Left lower lobe pneumonia Post-menopausal Depression Anxiety Thyroid disease Anemia Gastric reflux Non-smoker Leg cramps History of pain when walking Hypothyroid CKD (chronic kidney disease) Hypertension Infection of spinal cord stimulator Rheumatoid arthritis Chronic pain Arthritis Fibromyalgia Migraines Home Medications ?Medication ?Instructions ?Recorded ?Last Taken ?Type buprenorphine 20 mcg/hour weekly 1 patch transdermal S U PAIN 01/13/21 02/15/25 History transdermal patch (Butrans) levothyroxine 88 mcg tablet 88 mcg PO DAILY thyroid 02/15/25 13:47 History (Synthroid) triamterene 37.5 1 cap PO DAILY blood pressur e 01/13/21 02/14/25 History mg-hydrochlorothiazide 25 mg capsule gabapentin 400 mg capsule 400 mg PO TID PAIN 05/08/21 02/15/25 08:30 History cholecalciferol (vitamin D3) 125 125 mcg PO DAILY SUPP LEMENT 06/01/22 02/14/25 History mcg (5,000 unit) capsule PRIMAL DEFENSE 410 mg PO 1XD probiotic 08/2908/01/24 History metoprolol succinate 50 mg 50 mg PO QHS blood pressure 11/13/22 02/14/25 History tablet,extended release 24 hr allopurinol 300 mg tablet 300 mg PO DAILY gout 5 02/14/25 History ferrous gluconate 324 mg (38 mg 324 mg PO DAILY supple ment 06/27/24 02/14/25 History iron) tablet albuterol sulfate 90 mcg/actuation 2 inh inhalation Q4 H PRN shortness 07/08/24 02/14/25 History breath activated powder inhaler of breath or wheezing apixaban 5 mg tablet (Eliquis) 5 mg PO BID blood thinn er 08/01/24 02/14/25 History magnesium oxide 400 mg (241.3 mg 400 mg PO QPM supplem ent 08/01/24 02/14/25 History magnesium) tablet potassium chloride 20 mEq 20 meq PO TID SUPPLEMENT 03/0202/14/25 History tablet,extended release(part/cryst) ipratropium 0.5 mg-albuterol 3 mg 3 ml inhalation Q6H PRN shortness 08/31/24 02/14/25 Rx (2.5 mg base)/3 mL nebulization of breath #90 mL soln fluticasone fur. 200 mcg-umeclid 1 inh inhalation Q24H #60 ea 09/13/24 02/14/25 Rx 62.5 mcg-vilant 25 mcg inhalat.powder (Trelegy Ellipta) fluconazole 100 mg tablet 100 mg PO QDAY #7 tabs 10/07 Unknown Rx (Diflucan) prednisone 10 mg tablet 10 mg PO DIRECTED #24 tab s 12/21/24 02/14/25 Rx omeprazole 40 mg capsule,delayed 40 mg PO BID reflux # 90 caps 01/24/25 02/15/25 08:30 Rx release colchicine 0.6 mg tablet 0.6 mg PO DAILY 02/13/2512/01 History Allergy/AdvReac Type Severity Reaction Status Date / Time oxycodone Allergy Rash Verified 02/13/25 11:02 adhesive tape AdvReac Rash Verified 02/13/25 11:02 Family History Mother Hypertension Colon polyps Father Lymphoma Surgical History History of bronchoscopy History of colonoscopy Hx of hysterectomy History of carpal tunnel release Hx of thyroidectomy Hx of cholecystectomy Hx of tonsillectomy Social History household members: none Smoking Status: Never smoker alcohol intake: never substance use type: does not use Prior Cardiac Testing/Procedures Prior Cardiac Testing/Procedures: Echocardiogram (EF 60% no valvular disease) Addt'l Information Additional Findings: EKG NSR Review of Systems (Anesthesia) ROS Narrative System reviewed and no additional complaints, except as documented. Physical Exam Const alert, oriented x3 and average body habitus HEENT dentition normal Resp normal respiratory effort, normal air movement and clear to auscultation bilaterally Cardio regular rate and regular rhythm Back/Spine normal ROM Extremity full ROM Neuro oriented x3 and moves all extremities
--- NOTE | 2025-02-15 14:30 | EGD_PTH ---
PATIENT: SAVANNAH AGUIRRE LOC: [facility] U#:[id number] AGE/SX: 64/F ROOM: RE02/15/[address]: Dr. Tee Cabrera DO : 1960 BED: DIS: 02/15/2025 SPEC #: [id number] RECD: 02/15/25 18:59 STATUS: JORDEN REQ #: [id number] WENDY: 02/15/25 14:[address]: Tee Cabrera DEPT: SURGICAL PATHOLOGY RECD BY: Edenilson Vazquez ENTERED: 02/16/25 09:51 SP TYPE: EGD BIOPSY OT DR: Dr. Pk Donahue DO Tissues: A - Duodenum, NOS B - Gastric mucous membrane C - Gastric mucous membrane D - Esophagus, NOS E - Esophagus, NOS Procedures: Immunohistochemical Stains Surgery Specimen Level IV HEADER OPERATION: EGD, biopsy PRE-OP DIAGNOSIS: Mouth sores, candidiasis of mouth, dysphagia TISSUE SUBMITTED: A- Duodenal polyp biopsy, B- Gastric antrum biopsy, C- Gastric body biopsy, D- Distal esophagus biopsy, E- Random esophagus biopsy MICROSCOPIC DIAGNOSIS A. Small intestine, duodenum, polyp, biopsy: - Normal villous architecture with Victor Manuel gland hyperplasia. - Negative for increased intraepithelial lymphocytes. - No dysplasia seen. B. Stomach, antrum, biopsy: - Oxyntic mucosa with features of reactive gastropathy. - IHC negative for H. pylori organisms. C. Stomach, body, biopsy: - Oxyntic mucosa with features of reactive gastropathy. - IHC negative for H. pylori organisms. D. Esophagus, distal, biopsy: - Squamous mucosa with reactive changes. - Inflamed columnar mucosa negative for goblet cell metaplasia. - Reactive epithelial change, negative for dysplasia. E. Esophagus, random, biopsy: - Squamous mucosa with reactive changes. - Negative for eosinophils. MICROSCOPIC DESCRIPTION Slides are reviewed. All matched controls reacted appropriately. These tests were developed and their performance characteristics determined by [facility]. They may not have been cleared or approved by the U.S. Food and Drug Administration. The FDA has determined that such clearance or approval is not necessary. The above immunohistochemical markers and/or special?stains have been reviewed by the Pathologist. GROSS DESCRIPTION A. Received in fixative is one container labeled with the patient's name and designated Duodenum polyp. The specimen consists of three irregular fragments of arias tissue that measure 0.2 to 0.5cm. The specimen is totally submitted in one cassette. B. Received in fixative is one container labeled with the patient's name and designated Gastric antrum biopsy. The specimen consists of three irregular fragments of arias tissue that measure 0.2 to 0.7cm. The specimen is totally submitted in one cassette. C. Received in fixative is one container labeled with the patient's name and designated Gastric body biopsy. The specimen consists of three irregular fragments of arias tissue that measure 0.2 to 0.5cm. The specimen is totally submitted in one cassette. D. Received in fixative is one container labeled with the patient's name and designated Distal esophagus biopsy. The specimen consists of two irregular fragments of arias tissue that measure 0.4 and 0.5 cm. The specimen is totally submitted in one cassette. E. Received in fixative is one container labeled with the patient's name and designated Random esophagus biopsy. The specimen consists of two irregular fragments of arias tissue, each measuring 0.2 cm. The specimen is totally submitted in one cassette. IL 02/16/2025 CPT:42186n5,87122i0
--- NOTE | 2025-02-15 15:50 | PCM.POST.ANE ---
Anesthesia: Postop Eval I Current Vital Signs Temperature: 97.4 F Pulse Rate: 66 Blood Pressure: 140/69 Respiratory Rate: 20 Pulse Ox: 97 Assessment Airway patent: Yes Spontaneous unlabored respirations: Yes nausea: No Vomiting: No Anesthesia Complication: No Fluid Hydration Crystalloid volume administer (ml): 300 Total IV fluid infused: 300 Progress Note Anesthesia document: Postop Eval 1 completed: Yes
--- NOTE | 2025-02-15 16:00 | OP.PROVAT_ITS ---
02/15/[address] [facility] [place] [address] Re : Upper GI endoscopy procedure for Tiana Mckeon Dear Dr. Donahue This procedure was performed on Saturday, February 15, 2025. My impressions and recommendations are as follows: Impressions : - Abnormal esophageal motility. - Z-line irregular, 40 cm from the incisors. Biopsied. - Medium-sized hiatal hernia. - Bile gastritis. Biopsied. - One duodenal polyp. Resected and retrieved. - Biopsies were taken with a cold forceps for evaluation of eosinophilic esophagitis. Recommendations : - Discharge patient to home. - Resume previous diet. - Continue present medications. - Await pathology results. - Gastric emptying study - Esophageal manometry My findings are described in the full procedure note, which is enclosed. If I can be of further assistance, please feel free to contact me at . Sincerely, Tee Friend, 02/15/2025 3:59:32 PM This report has been signed electronically.
--- NOTE | 2025-02-15 16:00 | OP.EGD_ITS ---
Patient Name: Tiana Mckeon Procedure Date: 02/15/2025 3:17 PM Date of : 1960 Age: 64 Procedure: Upper GI endoscopy Indications: Epigastric abdominal pain, Indigestion, Dysphagia, Heartburn, Suspected esophageal reflux Providers: Tee Cabrera DO Referring MD: Pk Donahue Medicines: Monitored Anesthesia Care Patient Profile: This is a 64 year old female. Refer to note in patient chart for documentation of history and physical. Patient has symptoms of acute abdominal cramping, chronic abdominal distention, acute epigastric abdominal pain, chronic nausea, acute regurgitation and chronic throat burning. Complications: No immediate complications. Procedure: Pre-Anesthesia Assessment: - Prior to the procedure, a History and Physical was performed, and patient medications and allergies were reviewed. The patient is competent. The risks and benefits of the procedure and the sedation options and risks were discussed with the patient. All questions were answered and informed consent was obtained. Patient identification and proposed procedure were verified by the physician in the pre-procedure area. Mental Status Examination: alert and oriented. Airway Examination: normal oropharyngeal airway and neck mobility. Respiratory Examination: clear to auscultation. CV Examination: normal. Prophylactic Antibiotics: The patient does not require prophylactic antibiotics. Prior Anticoagulants: The patient has taken no anticoagulant or antiplatelet agents. ASA Grade Assessment: II - A patient with mild systemic disease. After reviewing the risks and benefits, the patient was deemed in satisfactory condition to undergo the procedure. The anesthesia plan was to use monitored anesthesia care (MAC). Immediately prior to administration of medications, the patient was re-assessed for adequacy to receive sedatives. The heart rate, respiratory rate, oxygen saturations, blood pressure, adequacy of pulmonary ventilation, and response to care were monitored throughout the procedure. The physical status of the patient was re-assessed after the procedure. After obtaining informed consent, the endoscope was passed under direct vision. Throughout the procedure, the patient's blood pressure, pulse, and oxygen saturations were monitored continuously. The gastroscope was introduced through the mouth, and advanced to the third part of the duodenum. Small bowel enteroscopy was deemed necessary. The upper GI endoscopy was accomplished without difficulty. The patient tolerated the procedure well. Scope In: 3:33:45 PM Scope Out: 3:43:15 PM Total Procedure Duration Time 0 hours 9 minutes 30 seconds Findings: Abnormal motility was noted in the esophagus. The cricopharyngeus was abnormal. There is a decrease in motility of the esophageal body. The distal esophagus/lower esophageal sphincter is spastic, but gives up passage to the endoscope. Biopsies were obtained from the proximal and distal esophagus with cold forceps for histology of suspected eosinophilic esophagitis. The Z-line was irregular and was found 40 cm from the incisors. Biopsies were taken with a cold forceps for histology. Verification of patient identification for the specimen was done. Estimated blood loss was minimal. A medium-sized hiatal hernia was present. Diffuse moderate inflammation characterized by erosions and erythema was found in the entire examined stomach. Biopsies were taken with a cold forceps for histology. Verification of patient identification for the specimen was done. Estimated blood loss was minimal. One 5 mm sessile polyp with no bleeding was found in the duodenal bulb. The polyp was removed with a jumbo cold forceps. Resection and retrieval were complete. Verification of patient identification for the specimen was done. Estimated blood loss was minimal. Impression: - Abnormal esophageal motility. - Z-line irregular, 40 cm from the incisors. Biopsied. - Medium-sized hiatal hernia. - Bile gastritis. Biopsied. - One duodenal polyp. Resected and retrieved. - Biopsies were taken with a cold forceps for evaluation of eosinophilic esophagitis. Recommendation: - Discharge patient to home. - Resume previous diet. - Continue present medications. - Await pathology results. - Gastric emptying study - Esophageal manometry Procedure Code(s): --- Professional --- 20249, Small intestinal endoscopy, enteroscopy beyond second portion of duodenum, not including ileum; with biopsy, single or multiple CPT copyright 2021 [employer]. All rights reserved. The codes documented in this report are preliminary and upon doctor of audiology review may be revised to meet current compliance requirements. Tee Cabrera DO 02/15/2025 3:59:32 PM This report has been signed electronically. Number of Addenda: 0 Note Initiated On: 02/15/2025 3:17 PM
--- NOTE | 2025-02-15 17:10 | POSTOPAN2_ITS ---
Anesthesia Postop Eval I Sum Postop Eval Completion status Anesthesia document: Postop Eval 1 completed: Yes Anesthesia Postop Eval I Summary Anesthesia Postop Eval I Summary: Anesthesia Postop Eval I: Assessment Summary Airway patent Yes 02/15/25 15:52 TRAILER PARK MANAGER.[email or web address] Spontaneous unlabored Yes 02/15/25 15:52 TRAILER PARK MANAGER.CSIR respirations Mental status nausea No 02/15/25 15:52 TRAILER PARK MANAGER.CSIR Vomiting No 02/15/25 15:52 TRAILER PARK MANAGER.CSIR Anesthesia Postop Eval I: Fluid Summary Crystalloid volume administer 300 02/15/25 15:52 TRAILER PARK MANAGER.CSIR (ml) Colloids volume administered ( ml) Blood Product volume administered (ml) Total IV fluid infused 300 02/15/25 15:52 TRAILER PARK MANAGER.CSIR Anesthesia Postop Eval I: Summary Notes Anesthesia Complication No 02/15/25 15:52 TRAILER PARK MANAGER.CSIR Anesthesia Complication Comment: Post-operative progress note Anesthesia: Postop Eval II Evaluation Mental status: Awake Pain Level: 0 nausea: No Vomiting: No Complications Anesthesia Complication: No
--- NOTE | 2025-02-15 17:10 | PCM.POSTANE2 ---
Anesthesia Postop Eval I Sum Postop Eval Completion status Anesthesia document: Postop Eval 1 completed: Yes Anesthesia Postop Eval I Summary Anesthesia Postop Eval I Summary: Anesthesia Postop Eval I: Assessment Summary Airway patent Yes 02/15/25 15:52 PSYCHOLOGY TECHNICIAN.CSIR Spontaneous unlabored Yes 02/15/25 15:52 PSYCHOLOGY TECHNICIAN.CSIR respirations Mental status nausea No 02/15/25 15:52 PSYCHOLOGY TECHNICIAN.CSIR Vomiting No 02/15/25 15:52 PSYCHOLOGY TECHNICIAN.CSIR Anesthesia Postop Eval I: Fluid Summary Crystalloid volume administer 300 02/15/25 15:52 PSYCHOLOGY TECHNICIAN.CSIR (ml) Colloids volume administered ( ml) Blood Product volume administered (ml) Total IV fluid infused 300 02/15/25 15:52 PSYCHOLOGY TECHNICIAN.CSIR Anesthesia Postop Eval I: Summary Notes Anesthesia Complication No 02/15/25 15:52 PSYCHOLOGY TECHNICIAN.CSIR Anesthesia Complication Comment: Post-operative progress note Anesthesia: Postop Eval II Evaluation Mental status: Awake Pain Level: 0 nausea: No Vomiting: No Complications Anesthesia Complication: No
== END 2025-02-15 16:23 | disposition home or self-care (01) ==
LOC: EN 13:21 → AC 13:23
PROVIDERS: PCP Family Medicine; Referring Provider Family Medicine; Visit Provider Internal Medicine Gastroenterology
PROC: 0DJ08ZZ Inspection of Upper Intestinal Tract, Via Natural or Artificial Opening Endoscopic (ICD-10-PCS; CPT 43235; principal; 2025-02-15 14:25)
DX: K25.9 Gastric ulcer, unspecified as acute or chronic, without hemorrhage or perforation (principal); J44.9 Chronic obstructive pulmonary disease, unspecified; K44.9 Diaphragmatic hernia without obstruction or gangrene; N18.9 Chronic kidney disease, unspecified; Z86.711 Personal history of pulmonary embolism; B37.0 Candidal stomatitis; K31.7 Polyp of stomach and duodenum; I12.9 Hypertensive chronic kidney disease with stage 1 through stage 4 chronic kidney disease, or unspecified chronic kidney disease; K21.9 Gastro-esophageal reflux disease without esophagitis; Z79.899 Other long term (current) drug therapy; K29.70 Gastritis, unspecified, without bleeding; D68.51 Activated protein C resistance; Z79.01 Long term (current) use of anticoagulants; E03.9 Hypothyroidism, unspecified; Z79.890 Hormone replacement therapy
CPT/HCPCS: 44361; 88305; 88342; J2405